=== PATIENT | female | born 1940 | race Caucasian/White ===

== ENCOUNTER 2016-06-22 12:35 | Inpatient (IN) ==
[2016-06-22] MEDS ORDERED: Ipratropium/Albuterol Neb 3 ML IH ONE ×2 (12:58→14:39)
[2016-06-22] MEDS ORDERED: predniSONE 20 MG TABLET PO ONE (12:58)
--- NOTE | 2016-06-22 13:00 | Emergency Department Note ---
Disposition Clinical Impression: Acute exacerbation of chronic obstructive airways disease Disposition: Admitted As Inpatient Condition: Good Referrals: Therese Garcia CNP [Primary Care Provider] - Forms: ED Satisfaction Letter Time of Disposition: 16:29 SOB HPI - General Chief Complaint: ED Shortness of Breath/Dyspnea Stated Complaint: LISHA, wheezing Time Seen by Provider: 06/22/16 12:46 Source: EMS Mode of arrival: ambulatory Limitations: no limitations Nursing Notes Reviewed: Yes Vital Signs Reviewed: Yes - History of Present Illness 75-year-old female with history of COPD on 2 L home oxygen, breast cancer s/p right lumpectomy, CHF, HTN, DM, CKD stage 4 presents ED for several days of shortness of breath and cough. History was obtained from patient and daughter. She reportedly has been feeling under the weather since Monday with increased cough but no fever. Was evaluated by her PCP Angelito Garcia on Monday were chest x-ray was performed and revealed no signs of pneumonia. Patient was placed on doxycycline. She takes Symbicort and Proventil as well as albuterol nebulizers. She has been requiring more recently. She has increased cough and increase shortness of breath with some change in sputum production. Patient has not been on steroids in the past. Denies any recent surgery, injury, recent long travel, or history of blood clots. Pt Subjective Complaint: shortness of breath, cough - Related Data Home Medications Medication Instructions Recorded Confirmed Cetirizine HCl [Zyrtec] 10 mg PO HS 04/17/15 06/22/16 Cholecalciferol (Vitamin D3) 2,000 unit PO DAILY 04/17/15 06/22/16 [Vitamin D3] Glimepiride 4 mg PO QAM 04/17/15 06/22/16 Insulin ASPART [NovoLOG] 2 - 10 unit SQ TIDWM 04/17/15 06/22/16 Insulin Glargine,Hum.rec.anlog 10 unit SQ QAM 04/17/15 06/22/16 [Lantus Solostar] Promethazine [Phenergan] 12.5 - 25 mg PO Q6-8H PRN 04/17/15 06/22/16 Carvedilol [Coreg] 6.25 mg PO BIDWM 06/08/15 06/22/16 Donepezil HCl [Donepezil HCl Odt] 5 mg PO HS 06/08/15 06/22/16 Acetaminophen with Codeine 1 tab PO Q4H PRN 10/12/15 06/22/16 [Acetaminophen-Cod #3 Tablet] Albuterol Sulfate [Albuterol 2 puff IH Q6H PRN 10/12/15 06/22/16 Inhaler] Furosemide [Lasix] 20 mg PO DAILY 10/12/15 06/22/16 Insulin Glargine,Hum.rec.anlog 8 unit SQ QPM 10/12/15 06/22/16 [Lantus Solostar] Omeprazole [PriLOSEC] 20 mg PO DAILY 10/12/15 06/22/16 Oxycodone HCl/Acetaminophen 1 each PO Q4H PRN 12/29/15 06/22/16 [Percocet 5-325 mg Tablet] Amlodipine [Norvasc] 10 mg PO DAILY 01/26/16 06/22/16 Ascorbate Calcium [Vitamin C] 500 mg PO DAILY 06/14/16 06/22/16 Atorvastatin [Lipitor] 10 mg PO HS 06/14/16 06/22/16 Calcitriol [Rocaltrol] 0.25 mcg PO DAILY 06/14/16 06/22/16 CloNIDine HCl [Kapvay] 0.1 mg PO TID 06/14/16 06/22/16 Clopidogrel [Plavix] 75 mg PO DAILY 06/14/16 06/22/16 Docusate [Colace] 100 mg PO DAILY PRN 06/14/16 06/22/16 Guaifenesin [Mucinex] 600 mg PO Q12H PRN 06/14/16 06/22/16 Linagliptin [Tradjenta] 5 mg PO DAILY 06/14/16 06/22/16 Alendronate Sodium [Fosamax] 70 mg PO QWEEK 06/22/16 06/22/16 Budesonide/Formoterol 80/4.5 2 puff IH Q12H 06/22/16 06/22/16 [Symbicort 80/4.5] Calcium Carbonate [Calcium] 600 mg PO BID 06/22/16 06/22/16 Allergies Allergy/AdvReac Type Severity Reaction Status Date / Time aspirin [ASA] Allergy Swelling Verified 05/18/16 13:40 of Lip/Tongue/Throat NSAIDS (Non-Steroidal Allergy Swelling Verified 05/18/16 13:40 Anti-Inflamma of Lip/Tongue/Throat Penicillins Allergy Hives Verified 05/18/16 13:40 iron AdvReac Unknown Verified 05/18/16 13:40 All systems ED: reviewed and negative except as stated. Constitutional: Denies: fever, chills Cardiovascular: Reports: dyspnea on exertion. Denies: chest pain, palpitations Respiratory: Reports: cough, dyspnea, wheezes Gastrointestinal: Denies: abdominal pain, nausea, vomiting Genitourinary: Denies: urgency, dysuria Past Medical History - Past Medical History Attestation: Yes The following information was validated with the patient. Source: patient Medical history: Reports: CHF, COPD, CVA, diabetes, renal disease Surgical history: Reports: cholecystectomy, hysterectomy Psychiatric history: Reports: anxiety, depression SUPERINTENDENT CONSTRUCTION history: Reports: no SUPERINTENDENT CONSTRUCTION history - Social History Smoking Status: Former smoker Smokeless Tobacco Status: No Alcohol use: Reports: none Drug use: Reports: none Physical Exam - General Limitations: no limitations General appearance: alert, anxious, in distress (mild respiratory) - Head Head exam: atraumatic, normocephalic, normal inspection - Eye Eye exam: Present: normal appearance, PERRL, EOMI - ENT ENT exam: normal exam, normal oropharynx, mucous membranes moist - Neck Neck exam: Present: normal inspection - Chest Chest inspection: Present: normal inspection, symmetric chest wall rise. Absent : tenderness - Respiratory Respiratory exam: Present: normal lung sounds bilaterally, respiratory distress , wheezes (bilateral expiratory) - Cardiovascular Cardiovascular exam: Present: regular rate, normal rhythm, normal heart sounds - Abdominal Exam Abdominal exam: Present: soft, Non-Tender. Absent: tenderness, distention, guarding, rebound, rigidity - Extremities Exam Extremities exam: Present: normal inspection, full ROM, normal capillary refill. Absent: tenderness, pedal edema, calf tenderness - Back Exam Back exam: Present: normal inspection, full ROM. Absent: tenderness - Neurological Exam Neurological exam: Present: alert, oriented X3 - Psychiatric Psychiatric exam: Present: normal affect, normal mood - Skin Skin exam: Present: warm, dry, intact, normal color Course Course Narrative: 75-year-old female history of COPD on 2 L at home presents to ED with increased shortness of breath and cough. His ongoing for the past several days, 2 days ago patient was seen evaluated by primary care physician. Place on doxycycline 2 doses. Patient is on 2 L nasal cannula setting at 96%. She has some increased worker breathing. Lungs are wheezing bilaterally. Heart's regular rate and rhythm. Legs are non-edematous. We will work her up for likely COPD exacerbation. Troponin and EKG ordered. Duonebs ordered. - Reevaluation(s) Reevaluation #1: After 3 duoneb treatments and dose of steroids, she continues to have bilateral diffuse wheezing. With ambulation, patient's O2 dropped to <90% before exiting the room. Will admit for admission for COPD exacerbation. Patient and daughter are in agreement with plan. Time: 15:50 - Consultations Consultation #1: Spoke with gerda Krueger to admit for COPD exacerbation. No further orders at this time. Time: 16:30 Vital Signs Temperature 98.2 F 06/22/16 12:43 Pulse Rate 58 06/22/16 12:43 Respiratory Rate 14 06/22/16 12:43 Blood Pressure 150/74 06/22/16 12:43 O2 Sat by Pulse Oximetry 95 06/22/16 12:43 Temperature 98.2 F 06/22/16 12:43 Pulse Rate 55 06/22/16 16:12 Respiratory Rate 12 06/22/16 16:12 Blood Pressure 138/71 06/22/16 16:12 O2 Sat by Pulse Oximetry 93 L 06/22/16 16:12 Oxygen Delivery Oxygen Delivery Nasal Cannula Shortness of Breath/Dyspnea - MDM Narrative Medical decision making narrative: I examined this patient and my medical decision-making was reviewed with the SOCIAL SCIENCES LECTURER/PA/Advanced Practice Nurse/Resident Physician. I agree with the documented findings, disposition and treatment plan as described except to the extent set forth below. Patient was seen by Dr. Randle and myself, I agree with his evaluation and management plan, supervise care the patient that stay patient has a history of COPD. She is on 2 L oxygen at home and some wheezing and coughing she saw urgent care and is on doxycycline. No pneumonia recently. Going to do a workup on her and reassess even get her feeling better. She is in agreement with this plan. Chest X-Ray 06/22/16 12:58 IMPRESSION: No significant findings in the chest. Cardiomegaly is stable. D/ / Martin Mosley MD / Martin Mosley MD Interpreting Provider: Martin Mosley MD - Differential Diagnosis Likely: acute exacerbation of chronic obstructive airways disease - Medical Records Medical records reviewed: Yes I reviewed the patient's medical records. - Lab Data Lab results reviewed: Yes I reviewed the patient's lab results. Result diagrams: 06/22/16 13:20 06/22/16 13:20 Lab Results 06/22/16 06/22/16 06/22/16 Range/Units 13:20 13:20 13:20 WBC 6.6 (4.3-11.1) K/mcL RBC 3.82 (3.82-4.97) M/mcL Hgb 10.2 L (11.5-15.4) g/dL Hct 33.1 L (35.3-44.9) % MCV 86.6 (83.0-100.0) fL MCH 26.7 L (28.0-33.3) pg MCHC 30.8 L (31.6-35.5) g/dL RDW 16.1 H (11.5-14.5) % Plt Count 283 (140-400) K/mcL MPV 10.0 (9.4-12.4) fL Immature Gran % 0.6 (0-4) % Seg Neutrophils % 61.8 % Lymphocytes % 23.4 % Monocytes % 10.5 % Eosinophils % 2.9 % Basophils % 0.8 % Neutrophils # 4.1 (1.6-8.9) K/mcL Lymphocytes # 1.5 (0.6-4.6) K/mcL Monocytes # 0.7 (0.0-1.3) K/mcL Eosinophils # 0.2 (0.0-0.6) K/mcL Basophils # 0.1 (0.0-0.2) K/mcL Sodium 137 (136-145) mEq/L Potassium 5.5 H (3.5-4.5) mEq/L Chloride 104 (98-109) mEq/L Carbon Dioxide 21 (19-29) mEq/L BUN 58 H D (7-20) mg/dL Creatinine 2.37 H (0.57-1.11) mg/dL Est GFR ( Amer) 24 L (> 60) Est GFR (Non-Af Amer) 20 L (> 60) BUN/Creatinine Ratio 24 (6-26) Glucose 182 H (70-99) mg/dL Calculated Osmolality 305 H (280-300) Calcium 8.9 (8.6-10.8) mg/dL Troponin I (0-0.03) ng/mL B-Natriuretic Peptide (0-100) pg/mL 06/22/16 Range/Units 13:20 WBC (4.3-11.1) K/mcL RBC (3.82-4.97) M/mcL Hgb (11.5-15.4) g/dL Hct (35.3-44.9) % MCV (83.0-100.0) fL MCH (28.0-33.3) pg MCHC (31.6-35.5) g/dL RDW (11.5-14.5) % Plt Count (140-400) K/mcL MPV (9.4-12.4) fL Immature Gran % (0-4) % Seg Neutrophils % % Lymphocytes % % Monocytes % % Eosinophils % % Basophils % % Neutrophils # (1.6-8.9) K/mcL Lymphocytes # (0.6-4.6) K/mcL Monocytes # (0.0-1.3) K/mcL Eosinophils # (0.0-0.6) K/mcL Basophils # (0.0-0.2) K/mcL Sodium (136-145) mEq/L Potassium (3.5-4.5) mEq/L Chloride (98-109) mEq/L Carbon Dioxide (19-29) mEq/L BUN (7-20) mg/dL Creatinine (0.57-1.11) mg/dL Est GFR ( Amer) (> 60) Est GFR (Non-Af Amer) (> 60) BUN/Creatinine Ratio (6-26) Glucose (70-99) mg/dL Calculated Osmolality (280-300) Calcium (8.6-10.8) mg/dL Troponin I (0-0.03) ng/mL B-Natriuretic Peptide 94 (0-100) pg/mL - Radiology Data Radiology results reviewed: Yes I reviewed the patient's radiology results. Chest X-Ray 06/22/16 12:58 IMPRESSION: No significant findings in the chest. Cardiomegaly is stable. D/ / Martin Mosley MD / Martin Mosley MD Interpreting Provider: Martin Mosley MD - EKG Data EKG attestation: Yes I reviewed and interpreted this EKG. EKG results narrative: EKG performed 1242 shows rhythm heart rate 57, normal axis, there are no ST elevations or depressions, no T waves inversions. Intervals are within normal limits MO interval 141 QRS 98 QT QTC 420 419. Compared to the old EKG performed 05/26/2016 shows similar findings of sinus bradycardia 53 bpm. No acute ischemic changes.
[2016-06-22 13:31] LABS: Basophils # 0.1 K/mcL (0.0-0.2); Basophils % 0.8 %; Eosinophils # 0.2 K/mcL (0.0-0.6); Eosinophils % 2.9 %; Hematocrit 33.1 % (35.3-44.9); Hemoglobin 10.2 g/dL (11.5-15.4); Immature Granulocytes % 0.6 % (0-4); Lymphocytes # 1.5 K/mcL (0.6-4.6); Lymphocytes % 23.4 %; Mean Corpuscular HGB Conc 30.8 g/dL (31.6-35.5); Mean Corpuscular Hemoglobin 26.7 pg (28.0-33.3); Mean Corpuscular Volume 86.6 fL (83.0-100.0); Monocytes # 0.7 K/mcL (0.0-1.3); Monocytes % 10.5 %; Neutrophils # 4.1 K/mcL (1.6-8.9); Platelet Count 283 K/mcL (140-400); Red Blood Count 3.82 M/mcL (3.82-4.97); Red Cell Distribution Width 16.1 % (11.5-14.5); Segmented Neutrophils % 61.8 %
[2016-06-22 13:44] LABS: Calcium 8.9 mg/dL (8.6-10.8)
[2016-06-22 13:46] LABS: Potassium 5.5 mEq/L (3.5-4.5)
[2016-06-22] MEDS ORDERED: Ipratropium/Albuterol Neb 3 ML ONE (14:40)
[2016-06-22] MEDS ORDERED: Acetaminophen 325 MG TABLET PO ONE (15:11)
[2016-06-22] MEDS ORDERED: Naloxone 0.4 MG/ML INJ IVP PRN (18:12)
[2016-06-22] MEDS ORDERED: Albuterol 2.5 MG/3 ML NEBULIZER IH PRN (18:14)
[2016-06-22] MEDS ORDERED: 0.9 % Sodium Chloride 1,000 ML IVC SCH (18:15)
--- NOTE | 2016-06-22 19:26 | Electrocardiograph Report ---
[facility] Test Date: 2016-06-22 Pat Name: Dorothy Parks Department: [id number] Room: 3B37 Gender: F Digital Operations Analyst: : 1940 Requested By: Addy Randle Order Number: [id number] Reading MD: Tita Rogers DO Measurements Intervals [place] Rate: 57 P: 52 SD: 141 QRS: -6 QRSD: 98 T: 55 QT: 425 QTc: 419 Interpretive Statements SINUS BRADYCARDIA Electronically Signed On 06-22-2016 19:24:32 EST by Tita Rogers DO
[2016-06-22] MEDS: Ipratropium/Albuterol Neb 3 ML IH SCH ×3 (19:57→23:36)
[2016-06-22] MEDS: Budesonide Neb 0.5 MG/2 ML IH SCH (20:39)
--- NOTE | 2016-06-22 22:07 | Internal Med History&Physical ---
<LujanSina - Last Filed: 06/22/16 23:09> Date of Encounter: 06/22/16 Time of Encounter: 22:03 Assessment and Plan (1) Acute exacerbation of chronic obstructive airways disease Current visit: Yes Status: Acute Symptoms of shortness of breath likely caused by her COPD rather than her CHF given her sputum production and wheezing in setting of euvolemia Will start patient on steroids with solumedrol 60 mg q6hr and Levaquin 500 mg q48hr along with scheduled breathing treatments and inhalers Daughter did bring up possibility of BiPAP, but we will hold off on qualifying her for nocturnal BiPAP until she is more stable Obtain VBG to observe severity of hypercarbia and any evidence of acidosis (2) Chronic blood loss anemia Current visit: Yes Status: Chronic Her Hb upon admission was 10.2, which has been stable near her baseline She has known bright red blood per rectum and has been evaluated by surgery recently as outpatient; colonoscopy delayed due to recent tPa administration Her last c-scope 07/2015 demonstrated inflammation of ileocecal valve along with internal hemorrhoids, which could explain her bright red blood per rectum Patient also saw her adolescent specialist last week who has managed her IV iron and also received 2 units pRBC last Monday Will type and screen and this point, but no indication for urgent transfusion (3) Hyperkalemia Current visit: Yes Status: Acute Initial potassium level of 5.5 upon admission, but possibly lab error as her troponin was not resulted due to hemolyzed sample Will repeat CMP now and treat with calcium gluconate and Kayexalate if levels remain high (4) CKD (chronic kidney disease) stage 4, GFR 15-29 ml/min Current visit: Yes Status: Chronic Cr upon admission of 2.37, baseline around 2.1 Will continue supportive measures, avoid nephrotoxic agents Patient is established with Dr. Corona, will need to delay her appointment originally scheduled for tomorrow (5) Hypertension Current visit: Yes Status: Chronic Blood pressures have been stable upon admission, will continue to monitor vitals closely Continue home dose of Norvasc and Clonidine but holding Coreg due to bradycardia Qualifiers: Qualified Code(s): I10 - Essential (primary) hypertension (6) History of CVA (cerebrovascular accident) Current visit: Yes Status: Resolved Patient did have acute stroke last month and received dose of tPA Her left sided weakness has been improving with PT/OT Will consult PT/OT while inpatient and continue her Plavix (7) Insulin dependent type 2 diabetes mellitus Current visit: No Status: Chronic Holding home anti-diabetic medication Starting low dose sliding scale insulin ACHS casandra (8) DVT prophylaxis Current visit: No Status: Acute SCDs in setting of chronic GI bleed Internal Medicine - H&P: HPI Chief complaint: Short of breath, cough Admitted From: Home Plans for Post Hospital Care: Home History of present illness: Ms. Parks is a 75 year old female who presents to the emergency department with progressive shortness of breath associated with productive cough. Daughter is at bedside and is able to assist with history as patient has underlying dementia. She states that the patient has been feeling sick since Monday with a low-grade fever of 99 and went to her primary care physician Therese Garcia on Monday. An x-ray was done that point and did not show any pneumonia, but she was started on doxycycline. Patient continued to have difficulty breathing specially with exertion and had increased sputum production that was green colored. She does have underlying COPD and sees a patient financial advocate in [facility]. Patient normally is on 2 L of oxygen throughout the day and night and has been using her inhalers more often. She also has diastolic heart failure confirmed by echocardiogram in April 2015 and is on Lasix 20 mg daily, but states that her swelling is minimal. Of note, patient has chronic bright red blood per rectum and has been worked up by surgery and hematology. She does get IV iron and was recently transfused 2 units of RBCs last Monday in the cancer center. Patient currently denies any shortness of breath at rest, chest pain, nausea, fever. Past Med Surg Social Fam HX - Past Medical History Medical history: CHF, COPD, CVA, diabetes, renal disease Psychiatric history: anxiety, depression - Past Surgical History Surgical History: cholecystectomy, hysterectomy - Social History Smoking Status: Former smoker Smokeless Tobacco Status: No Alcohol use: none Drug use: none - Family History Father Living Status: Hx Family Cardiac Disorders: No Hx Family Respiratory Disorders: No Hx Family Cancer: Yes Hx Family GI Disorders: Yes Hx Family Endocrine Disorder: Yes Hx Family Neuromuscular Disorders: No Hx Family Neurologic Disorders: No Hx Family HEENT Disorders: No Hx Family Autoimmune Disorders: No Internal Medicine - H&P: Meds Cetirizine HCl [Zyrtec] 10 mg PO HS 04/17/15 [History] Cholecalciferol (Vitamin D3) [Vitamin D3] 2,000 unit PO DAILY 04/17/15 [History] Glimepiride 4 mg PO QAM 04/17/15 [History] Insulin ASPART [NovoLOG] 2 - 10 unit SQ TIDWM 04/17/15 [History] Insulin Glargine,Hum.rec.anlog [Lantus Solostar] 10 unit SQ QAM 04/17/15 [ History] Promethazine [Phenergan] 12.5 - 25 mg PO Q6-8H PRN 04/17/15 [History] Carvedilol [Coreg] 6.25 mg PO BIDWM 06/08/15 [History] Donepezil HCl [Donepezil HCl Odt] 5 mg PO HS 06/08/15 [History] Acetaminophen with Codeine [Acetaminophen-Cod #3 Tablet] 1 tab PO Q4H PRN [History] Albuterol Sulfate [Albuterol Inhaler] 2 puff IH Q6H PRN 10/12/15 [History] Furosemide [Lasix] 20 mg PO DAILY 10/12/15 [History] Insulin Glargine,Hum.rec.anlog [Lantus Solostar] 8 unit SQ QPM 10/12/15 [History ] Omeprazole [PriLOSEC] 20 mg PO DAILY 10/12/15 [History] Oxycodone HCl/Acetaminophen [Percocet 5-325 mg Tablet] 1 each PO Q4H PRN [History] Amlodipine [Norvasc] 10 mg PO DAILY 01/26/16 [History] Ascorbate Calcium [Vitamin C] 500 mg PO DAILY 06/14/16 [History] Atorvastatin [Lipitor] 10 mg PO HS 06/14/16 [History] Calcitriol [Rocaltrol] 0.25 mcg PO DAILY 06/14/16 [History] CloNIDine HCl [Kapvay] 0.1 mg PO TID 06/14/16 [History] Clopidogrel [Plavix] 75 mg PO DAILY 06/14/16 [History] Docusate [Colace] 100 mg PO DAILY PRN 06/14/16 [History] Guaifenesin [Mucinex] 600 mg PO Q12H PRN 06/14/16 [History] Linagliptin [Tradjenta] 5 mg PO DAILY 06/14/16 [History] Alendronate Sodium [Fosamax] 70 mg PO QWEEK 06/22/16 [History] Budesonide/Formoterol 80/4.5 [Symbicort 80/4.5] 2 puff IH Q12H 06/22/16 [ History] Calcium Carbonate [Calcium] 600 mg PO BID 06/22/16 [History] Allergies aspirin [ASA] Allergy (Verified 05/18/16 13:40) Swelling of Lip/Tongue/Throat NSAIDS (Non-Steroidal Anti-Inflamma Allergy (Verified 05/18/16 13:40) Swelling of Lip/Tongue/Throat Penicillins Allergy (Verified 05/18/16 13:40) Hives iron Adverse Reaction (Verified 05/18/16 13:40) Unknown Push only All Systems PM: A 10-system review of systems was performed and is negative for pertinent findings except as documented above in the HPI. - Constitutional Constitutional: fever(s), no chills, no night sweats - EENT Eyes: no change in vision, no discharge, no pain, no photophobia Ears: no ear discharge, no ear pain, no tinnitus Nose, mouth and throat: no dysphagia, no nasal discharge, no neck pain, no sore throat - Cardiovascular Cardiovascular ROS IM: diaphoresis, dyspnea, dyspnea on exertion, no chest pain , no lightheadedness, no palpitations, no syncope - Respiratory Respiratory: cough, dyspnea, dyspnea on exertion, wheezing, chest congestion, excessive phlegm production, change in phlegm color, pain with cough - Gastrointestinal Gastrointestinal: hematochezia (chronic), no abdominal pain, no diarrhea, no hematemesis, no melena, no nausea, no vomiting - Genitourinary Genitourinary: no change in urinary stream, no dysuria, no flank pain, no hematuria - Musculoskeletal Musculoskeletal ROS IM: no numbness, no tingling - Integumentary Integumentary IM: no rash, no unusual bruising - Neurological Neurological ROS: memory loss, no confusion, no convulsions, no focal weakness, no numbness, no tingling, no tremor(s) - Hematologic/Lymphatic Hematologic/Lymphatic: no easy bruising - Constitutional Vitals: Temp Pulse Resp BP Pulse Ox 98.1 F 56 18 138/75 94 L 06/22/16 17:50 06/22/16 17:50 06/22/16 20:40 06/22/16 17:50 06/22/16 20:43 General appearance: Present: cooperative, A&O X 3, pleasant, no acute distress, answers questions appropriately - Head Head exam: Present: atraumatic, normocephalic - Eye Eye exam: Present: PERRL, conjuntiva pink, sclera anicteric - Neck Neck exam general surgery: Present: supple, trachea midline. Absent: lymphadenopathy - Respiratory Respiratory exam: Present: wheezes. Absent: accessory muscle use, rales, rhonchi - Cardiovascular Cardiovascular exam: Present: RRR, +S1, +S2, systolic murmur (2/6). Absent: diastolic murmur, gallop, rubs - GI/Abdominal GI/Abdominal exam: Present: normal bowel sounds, soft, no peritoneal signs. Absent: distended, tenderness - Extremities Exam Extremities exam: Present: pedal edema (trace non-pitting), warm, radial pulses palpable and symetrical. Absent: calf tenderness, cyanotic - Neurological Exam Neurological exam: Present: alert, oriented X3, no focal deficits. Absent: strengths equal and symetr throughout (minimal left sided weakness s/p CVA last month), facial droop, speech deficit - Skin Skin exam: Present: dry, intact Internal Med - H&P Results - Labs CBC & Chem 7: 06/22/16 13:20 06/22/16 13:20 <Ghanshyam Ricci - Last Filed: 06/28/16 23:10> Date of Encounter: 06/22/16 Internal Medicine - H&P: HPI History of present illness: Ms. Parks is a 75 year old female patient is admitted to [facility] via the emergency department with chief complaint of difficulty in breathing. The patient was visited and interviewed and examined. Patient is a nonhistorian of circumstances and events due to underlying dementia. History of present illness is validated by patient's daughter at bedside. For this encounter, I have reviewed the documentation, treatment plan, and medical decision making. I examined this patient and my medical decision-making was reviewed with the Resident Physician. I agree with the documented findings, disposition and treatment plan as described except to the extent set forth below. Cumulative laboratory and radiographic database was reviewed and considered and discussed. Given the patient's presenting concerns, past medical history, clinical findings and symptoms, she is admitted at this time to undergo further evaluation and disposition. Orders were written as per the computerized physician job order clerk system. All Systems PM: A 10-system review of systems was performed and is negative for pertinent findings except as documented above in the HPI. - Constitutional Vitals: Temp Pulse Resp BP Pulse Ox 97.5 F L 64 18 149/84 100 06/28/16 20:08 06/28/16 20:08 06/28/16 20:08 06/28/16 20:08 06/28/16 20:08 Internal Med - H&P Results - Labs CBC & Chem 7: 06/28/16 13:55 06/28/16 03:55 Labs: Short CBC 06/28/16 06/28/16 Range/Units 03:55 13:55 WBC 8.6 (4.3-11.1) K/mcL Hgb 8.1 L D 8.4 L (11.5-15.4) g/dL Hct 24.7 L 26.5 L (35.3-44.9) % Plt Count 272 (140-400) K/mcL BMP 06/28/16 03:55 Sodium 133 L Potassium 4.8 H Chloride 103 Carbon Dioxide 21 BUN 97 H Creatinine 2.44 H Glucose 263 H Calcium 8.2 L - Attending Attestation My signature below is to certify that this patient is under my care and that I, or then Resident Physician working with me, has had a [id number] encounter with this patient. Plan of care has been reviewed and discussed in detail with the patient's daughter at the bedside (caregiver and power of attorney lawyer). Questions addressed. Advance care directive discussion briefly addressed. The patient's family does not report any healthcare restrictions at this time. Outpatient medications schedules will be reviewed, confirmed and facilitated as appropriate. Reconciliation of home treatments including adjustments substitutions and reintroduction to the treatment regimen will address the serum administered with chronic pre-existing medical conditions. Hospital course will be dependent on clinical findings, treatment response and potential consultative interventions. The patient is at risk for further acute clinical decline and morbidity given this presenting chief complaint, frailty, findings and comorbidities. Condition is serious. Prognosis is cautiously optimistic. CODE STATUS is full.
[2016-06-22] MEDS ORDERED: *HR* Dextrose 50 % in Water (Syg) 50 ML SYRINGE IVP PRN (22:43)
[2016-06-22] MEDS ORDERED: D5% in Water 1,000 ML IV PRN (22:43)
[2016-06-22] MEDS ORDERED: Dextrose Gel 15 GM PO PRN ×2 (22:43)
[2016-06-22] MEDS ORDERED: Insulin LISPRO 300 UNITS/3 ML VIAL SQ SCH (22:45)
[2016-06-22] MEDS ORDERED: Levofloxacin 500 MG/100 ML 500 MG/100 ML BAG IVPB SCH (23:00)
[2016-06-22] MEDS: *HR* OxyCODONE/APAP 5/325 TABLET PO PRN (23:12)
[2016-06-22] MEDS: methylPREDNISolone 125 MG/2 ML VIAL IVP SCH (23:13)
[2016-06-22 23:28] LABS: VBG PH 7.34 pH Units (7.32-7.42)
[2016-06-22 23:31] LABS: INR 1.2; Prothrombin Time 12.5 Seconds (9.4-12.1)
[2016-06-23] MEDS ORDERED: *HR* Morphine 2 MG/ML SYRINGE IVP PRN (01:11)
[2016-06-23 02:55] LABS: Albumin 3.2 g/dL (3.5-5.0); Albumin/Globulin Ratio 0.8 (1.1-2.2); Bilirubin,Total 0.7 mg/dL (0.2-1.2); Calcium 8.8 mg/dL (8.6-10.8); Globulin 4.2 g/dL (2.4-3.5); Total Protein 7.4 g/dL (6.0-8.3)
[2016-06-23] MEDS ORDERED: 0.9 % Sodium Chloride 1,000 ML IVC SCH (03:15)
[2016-06-23] MEDS: Ipratropium/Albuterol Neb 3 ML IH SCH ×6 (03:46→23:39)
[2016-06-23 05:36] LABS: Hematocrit 29.4 % (35.3-44.9); Hemoglobin 9.3 g/dL (11.5-15.4); Immature Granulocytes % 0.6 % (0-4); Lymphocytes # 0.6 K/mcL (0.6-4.6); Lymphocytes % 17.7 %; Mean Corpuscular HGB Conc 31.6 g/dL (31.6-35.5); Mean Corpuscular Volume 85.2 fL (83.0-100.0); Monocytes % 0.6 %; Neutrophils # 2.7 K/mcL (1.6-8.9); Platelet Count 247 K/mcL (140-400); Red Blood Count 3.45 M/mcL (3.82-4.97); Red Cell Distribution Width 16.1 % (11.5-14.5); Segmented Neutrophils % 81.1 %
[2016-06-23 05:43] LABS: % Iron Saturation 8 % (15-50); Iron 32 mcg/dL (50-170); Transferrin 280 mg/dL (180-382)
[2016-06-23 05:57] LABS: Platelet Estimate Normal (Normal)
[2016-06-23 05:58] LABS: Anisocytosis 1+ (Not Present); Calcium 8.7 mg/dL (8.6-10.8); Magnesium 1.4 mg/dL (1.6-2.6); Microcytosis Present (Not Present); Phosphorous 4.6 mg/dL (2.3-4.7); Polychromasia 1+ (Not Present); Potassium 4.7 mEq/L (3.5-4.5)
[2016-06-23 05:59] LABS: Chol/HDL Ratio 2.3 (0-4.9)
[2016-06-23 06:03] LABS: Ferritin 23 ng/ml (5-204)
[2016-06-23] MEDS: methylPREDNISolone 125 MG/2 ML VIAL IVP SCH ×3 (06:03→18:17)
[2016-06-23] MEDS ORDERED: Insulin LISPRO 300 UNITS/3 ML VIAL SQ SCH (07:30)
[2016-06-23] MEDS: Budesonide Neb 0.5 MG/2 ML IH SCH ×2 (07:54→20:43)
[2016-06-23] MEDS: Ascorbic Acid 500 MG TABLET PO SCH (08:17)
[2016-06-23] MEDS: cloNIDine HCl 0.1 MG TABLET PO SCH ×3 (08:17→21:16)
[2016-06-23] MEDS: amLODIPine 5 MG TABLET PO SCH (08:17)
[2016-06-23] MEDS: *HR* OxyCODONE/APAP 5/325 TABLET PO PRN (08:46)
[2016-06-23] MEDS ORDERED: Insulin Human Regular 10 UNIT in 0.9 % Sodium Chloride 10 ML IV ONE (10:07)
[2016-06-23] MEDS ORDERED: *HR* Dextrose 50 % in Water (Syg) 50 ML SYRINGE IVP PRN ×2 (10:10→11:47)
[2016-06-23] MEDS ORDERED: Insulin Human Regular 100 UNIT in 0.9 % Sodium Chloride 100 ML IVC SCH (10:15)
--- NOTE | 2016-06-23 10:31 | Internal Med Progress Note ---
Date of Encounter: 06/23/16 Time of Encounter: 10:31 - Constitutional Vitals: Temp Pulse Resp BP Pulse Ox 98.3 F 87 17 178/73 96 06/23/16 08:17 06/23/16 08:17 06/23/16 08:17 06/23/16 08:17 06/23/16 08:17 General appearance: Present: cooperative, A&O X 3, pleasant, no acute distress, answers questions appropriately Internal Medicine: Result - Labs CBC & Chem 7: 06/23/16 04:13 06/23/16 04:13 Labs: Short CBC 06/23/16 Range/Units 04:13 WBC 3.3 L (4.3-11.1) K/mcL Hgb 9.3 L (11.5-15.4) g/dL Hct 29.4 L (35.3-44.9) % Plt Count 247 (140-400) K/mcL Neutrophils # 2.7 (1.6-8.9) K/mcL BMP 06/22/16 06/23/16 23:13 04:13 Sodium 135 L 131 L Potassium 5.0 H 4.7 H Chloride 103 101 Carbon Dioxide 15 L 18 L BUN 67 H 67 H Creatinine 2.45 H 2.33 H Glucose 415 H 460 H Calcium 8.8 8.7 Cardiac Enzymes 06/22/16 Range/Units 23:13 Troponin I 0.01 (0-0.03) ng/mL Liver Function 06/22/16 Range/Units 23:13 Total Bilirubin 0.7 (0.2-1.2) mg/dL AST 18 (5-34) Units/L ALT 19 (0-55) Units/L Alkaline Phosphatase 89 (38-126) Units/L Albumin 3.2 L (3.5-5.0) g/dL - ABG Interpretation ABG results: PT/INR, D-dimer PT 12.5 Seconds (9.4-12.1) H 06/22/16 23:13 Consult Discharge Plan - Plan Referrals: Vamsi Corona DO [Partnered Physician] - 07/06/16 11:00 am Jose,Therese Mccormick CNP [Primary Care Provider] -
--- NOTE | 2016-06-23 10:40 | Internal Med Progress Note ---
<Dorothy Drew Rebeka - Last Filed: 06/23/16 11:47> Date of Encounter: 06/23/16 Time of Encounter: 10:36 - Assessment and plan (1) Acute exacerbation of chronic obstructive airways disease Current Visit: Yes Status: Acute Assessment and plan: Patient with hypoxia secondary to COPD exacerbation. Change in sputum color to yellow-green. CXR with cardiomegaly, stable and normal pulmonary vasculature. Influenza A & B titer, pending Levaquin IV q 48 hours Solumedrol IV Duonebs, albuterol nebs Continue Pulmicort IVF 60ml/h (2) CKD (chronic kidney disease) stage 4, GFR 15-29 ml/min Current Visit: Yes Status: Chronic Assessment and plan: Cr 2.33 increase from 2.10 three days ago Continue gentle fluid resuscitation at 60ml/h (3) Chronic blood loss anemia Current Visit: Yes Status: Chronic Assessment and plan: Patient being followed by oncology for anemia due to rectal bleeding. Patient received 2u RBCs 06/15/16 at [facility]. Hb today 9.3 compared to 7.8 on 06/14/16. Anemia may be contributory to patient's dyspnea (4) History of CVA (cerebrovascular accident) Current Visit: Yes Status: Resolved (5) Insulin dependent type 2 diabetes mellitus Current Visit: No Status: Chronic Assessment and plan: Low dose ISS ACHS (6) Hypertension Current Visit: Yes Status: Chronic (7) Hyperkalemia Current Visit: Yes Status: Acute (8) DVT prophylaxis Current Visit: No Status: Acute - Time Spent With Patient 25 - 35 minutes - Subjective Interval history: Patient is in room, sitting in chair with oxygen via nasal cannula. She is accompanied by her daughter. Breathing is improved from yesterday during admission. - Constitutional Vitals: Temp Pulse Resp BP Pulse Ox 98.3 F 87 17 178/73 96 06/23/16 08:17 06/23/16 08:17 06/23/16 08:17 06/23/16 08:17 06/23/16 08:17 General appearance: Present: cooperative, A&O X 3, pleasant, obese, answers questions appropriately - Head Head exam: Present: atraumatic, normocephalic - Eye Eye exam: Present: PERRL, sclera anicteric Pupils: Present: PERRL - Neck Neck exam general surgery: Present: supple, trachea midline - Respiratory Respiratory exam: Present: prolonged expiratory phase, respiratory distress ( increased work of breathing), wheezes (expiratory wheezing prominent in all lung schwarz). Absent: accessory muscle use, rales, rhonchi, tachypnea - Cardiovascular Cardiovascular exam: Present: RRR, +S1, +S2. Absent: diastolic murmur, gallop, rubs, systolic murmur - GI/Abdominal GI/Abdominal exam: Present: normal bowel sounds, soft, no peritoneal signs. Absent: distended, tenderness - Extremities Exam Extremities exam: Present: warm. Absent: cyanotic, pedal edema - Neurological Exam Neurological exam: Present: CN II-XII intact, oriented X3, no focal deficits. Absent: pronater drift, facial droop, speech deficit - Skin Skin exam: Present: dry, intact Internal Medicine: Result - Labs CBC & Chem 7: 06/23/16 04:13 06/23/16 04:13 Labs: Short CBC 06/23/16 Range/Units 04:13 WBC 3.3 L (4.3-11.1) K/mcL Hgb 9.3 L (11.5-15.4) g/dL Hct 29.4 L (35.3-44.9) % Plt Count 247 (140-400) K/mcL Neutrophils # 2.7 (1.6-8.9) K/mcL BMP 06/22/16 06/23/16 23:13 04:13 Sodium 135 L 131 L Potassium 5.0 H 4.7 H Chloride 103 101 Carbon Dioxide 15 L 18 L BUN 67 H 67 H Creatinine 2.45 H 2.33 H Glucose 415 H 460 H Calcium 8.8 8.7 Cardiac Enzymes 06/22/16 Range/Units 23:13 Troponin I 0.01 (0-0.03) ng/mL Liver Function 06/22/16 Range/Units 23:13 Total Bilirubin 0.7 (0.2-1.2) mg/dL AST 18 (5-34) Units/L ALT 19 (0-55) Units/L Alkaline Phosphatase 89 (38-126) Units/L Albumin 3.2 L (3.5-5.0) g/dL - ABG Interpretation ABG results: PT/INR, D-dimer PT 12.5 Seconds (9.4-12.1) H 06/22/16 23:13 Consult Discharge Plan - Plan Referrals: Vamsi Corona DO [Partnered Physician] - 07/06/16 11:00 am Jose,Therese Mccormick CNP [Primary Care Provider] - - Attending Attestation I examined this patient and my medical decision-making was reviewed with the CASING MACHINE OPERATOR/PA/Advanced Practice Nurse/Resident Physician. I agree with the documented findings, disposition and treatment plan as described except to the extent set forth below. <Berny Villegas H - Last Filed: 06/23/16 15:09> Date of Encounter: 06/23/16 - Constitutional Vitals: Temp Pulse Resp BP Pulse Ox 97.9 F 66 14 123/78 97 06/23/16 12:02 06/23/16 12:02 06/23/16 12:02 06/23/16 12:02 06/23/16 12:02 Internal Medicine: Result - Labs CBC & Chem 7: 06/23/16 04:13 06/23/16 11:38 Labs: Short CBC 06/23/16 Range/Units 04:13 WBC 3.3 L (4.3-11.1) K/mcL Hgb 9.3 L (11.5-15.4) g/dL Hct 29.4 L (35.3-44.9) % Plt Count 247 (140-400) K/mcL Neutrophils # 2.7 (1.6-8.9) K/mcL BMP 06/22/16 06/23/16 06/23/16 23:13 04:13 11:38 Sodium 135 L 131 L 133 L Potassium 5.0 H 4.7 H 4.3 Chloride 103 101 103 Carbon Dioxide 15 L 18 L 18 L BUN 67 H 67 H 67 H Creatinine 2.45 H 2.33 H 2.48 H Glucose 415 H 460 H 456 H Calcium 8.8 8.7 9.1 Cardiac Enzymes 06/22/16 Range/Units 23:13 Troponin I 0.01 (0-0.03) ng/mL Liver Function 06/22/16 Range/Units 23:13 Total Bilirubin 0.7 (0.2-1.2) mg/dL AST 18 (5-34) Units/L ALT 19 (0-55) Units/L Alkaline Phosphatase 89 (38-126) Units/L Albumin 3.2 L (3.5-5.0) g/dL - ABG Interpretation ABG results: PT/INR, D-dimer PT 12.5 Seconds (9.4-12.1) H 06/22/16 23:13 - Attending Attestation Acute on chronic hypoxic respiratory failure secondary to acute COPD exacerbation from possible acute bronchitis viral versus bacterial Continue Solu-Medrol IV, Levaquin, DuoNeb's. The patient has history of diastolic CHF, discontinue IV fluids and start IV Lasix 20 mg daily. Check an echocardiogram last echocardiogram was performed in 2014. Check respiratory viral panel Steroid-induced hyperglycemia in the setting of diabetes2 insulin-dependent Increased dose of Levemir from 10 units daily up to 14 units daily and from 8 units at night up to 12 units at night with a high dose insulin sliding scale during the daytime. Consider nephrology consult with Dr. Corona if kidney function worsens
[2016-06-23] MEDS: Magnesium Oxide 400 MG TABLET PO SCH ×2 (11:12→21:16)
[2016-06-23] MEDS ORDERED: Albuterol 2.5 MG/3 ML NEBULIZER IH PRN (11:22)
[2016-06-23] MEDS ORDERED: Dextrose Gel 15 GM PO PRN ×2 (11:47)
[2016-06-23] MEDS ORDERED: D5% in Water 1,000 ML IV PRN (11:47)
[2016-06-23] MEDS ORDERED: Insulin DETEMIR 100 UNIT/ML X5UNITS SQ SCH ×2 (12:00→21:00)
[2016-06-23 12:11] LABS: Calcium 9.1 mg/dL (8.6-10.8); Magnesium 1.4 mg/dL (1.6-2.6); Potassium 4.3 mEq/L (3.5-4.5)
[2016-06-23] MEDS: Insulin LISPRO 300 UNITS/3 ML VIAL SQ SCH ×3 (12:38→22:23)
[2016-06-23] MEDS: Furosemide 20 MG/2 ML VIAL IVP SCH (16:11)
[2016-06-23] MEDS ORDERED: SODIUM CHLORIDE/NAHCO3/KCL/PEG 4,000 ML SOLN.RECON PO ONE (17:35)
[2016-06-23 18:48] LABS: Adenovirus Not Detected (Not Detect); Bordetella Pertussis Not Detected (Not Detect); Chlamydophila pneumoniae Not Detected (Not Detect); Coronavirus 229E Not Detected (Not Detect); Coronavirus HKU1 Not Detected (Not Detect); Coronavirus NL63 Not Detected (Not Detect); Coronavirus OC43 Not Detected (Not Detect); Human Metapneumovirus ***DETECTED*** (Not Detect); Human Rhinovirus/Enterovirus Not Detected (Not Detect); Influenza A Subtype 2009 H1 Not Detected (Not Detect); Influenza A Untypeable Not Detected (Not Detect); Influenza B Not Detected (Not Detect); Mycoplasma pneumoniae Not Detected (Not Detect); Parainfluenza Virus 1 Not Detected (Not Detect); Parainfluenza Virus 2 Not Detected (Not Detect); Parainfluenza Virus 3 Not Detected (Not Detect); Parainfluenza Virus 4 Not Detected (Not Detect); Respiratory Syncytial Virus Not Detected (Not Detect)
[2016-06-23] MEDS: Loratadine 10 MG TABLET PO SCH (21:16)
[2016-06-23] MEDS: Insulin DETEMIR 100 UNIT/ML X5UNITS SQ SCH (22:23)
[2016-06-24] MEDS: methylPREDNISolone 125 MG/2 ML VIAL IVP SCH ×4 (00:14→21:32)
[2016-06-24] MEDS: *HR* OxyCODONE/APAP 5/325 TABLET PO PRN ×2 (00:29→16:18)
[2016-06-24] MEDS: Ipratropium/Albuterol Neb 3 ML IH SCH ×5 (04:19→20:17)
[2016-06-24 05:41] LABS: Hematocrit 28.2 % (35.3-44.9); Hemoglobin 8.6 g/dL (11.5-15.4); Mean Corpuscular HGB Conc 30.5 g/dL (31.6-35.5); Mean Corpuscular Hemoglobin 25.4 pg (28.0-33.3); Mean Corpuscular Volume 83.4 fL (83.0-100.0); Mean Platelet Volume 10.3 fL (9.4-12.4); Platelet Count 272 K/mcL (140-400); Red Blood Count 3.38 M/mcL (3.82-4.97)
[2016-06-24 05:45] LABS: Calcium 8.4 mg/dL (8.6-10.8); Potassium 4.2 mEq/L (3.5-4.5)
[2016-06-24] MEDS: Budesonide Neb 0.5 MG/2 ML IH SCH ×2 (07:40→20:19)
[2016-06-24] MEDS: cloNIDine HCl 0.1 MG TABLET PO SCH ×3 (08:13→21:32)
[2016-06-24] MEDS: amLODIPine 5 MG TABLET PO SCH (08:13)
[2016-06-24] MEDS: Magnesium Oxide 400 MG TABLET PO SCH ×2 (08:13→21:31)
[2016-06-24] MEDS: Ascorbic Acid 500 MG TABLET PO SCH (08:13)
[2016-06-24] MEDS: Insulin DETEMIR 100 UNIT/ML X5UNITS SQ SCH ×2 (08:14→21:32)
[2016-06-24] MEDS: Insulin LISPRO 300 UNITS/3 ML VIAL SQ SCH ×4 (08:14→21:33)
[2016-06-24] MEDS: Furosemide 20 MG/2 ML VIAL IVP SCH (08:14)
--- NOTE | 2016-06-24 08:29 | Gastroenterology Consult Note ---
<Nery Garnica - Last Filed: 06/24/16 11:29> Date of Encounter: 06/24/16 Time of Encounter: 10:50 - Assessment and plan (1) Anemia Current Visit: No Status: Acute Assessment and plan: Acute on chronic; baseline 9-10, currently 8.6. CKDIII. She follows hematology and received 2 units PRBC 06/15/16 plus IV iron. 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 Repeat Cscope today. Qualifiers: Anemia type: iron deficiency Iron deficiency anemia type: unspecified iron deficiency Qualified Code(s): D50.9 - Iron deficiency anemia, unspecified (2) CKD (chronic kidney disease) stage 3, GFR 30-59 ml/min Current Visit: No Status: Chronic (3) Gastrointestinal stromal tumor (GIST) Current Visit: No Status: Resolved (4) Rectal bleed Current Visit: No Status: Acute Assessment and plan: unclear etiology, likely hemorrhoidal. EGD/Cscope today to r/o esophagitis, gastritis, duodenitis, tumor, polyp, MW tear, AVMs, colitis, anorectal pathology. (5) COPD (chronic obstructive pulmonary disease) Current Visit: No Status: Chronic Qualifiers: COPD type: unspecified COPD Qualified Code(s): J44.9 - Chronic obstructive pulmonary disease, unspecified - Time Spent With Patient Total time spent is greater than 50% in coordination of care (as documented) at patient's floor/unit and/or counseling patient: less than 15 minutes GI History of Present Illness - Data of Consult Patient: new to practice Consult date: 06/24/16 Requesting Physician: Berny Villegas - Consult Narrative Reason for consult: anemia, BRBPR History of present illness: Ms. Parks is a 75 year old female with a PMH significant for HF, COPD, CVA, diabetes, renal disease, R breast cancer s/p mastectomy, GIST, colon polyps who presents to the emergency department with progressive shortness of breath associated with productive cough. Daughter is at bedside and is able to assist with history as patient has underlying dementia. She states that the patient has been feeling sick since Monday with a low-grade fever of 99 and went to her primary care physician Therese Garcia on Monday. An x-ray was done that point and did not show any pneumonia, but she was started on doxycycline. Patient continued to have difficulty breathing specially with exertion and had increased sputum production that was green colored. She does have underlying COPD and sees a color separation photographer in [facility]. Patient normally is on 2 L of oxygen throughout the day and night and has been using her inhalers more often. She also has diastolic heart failure confirmed by echocardiogram in April 2015 and is on Lasix 20 mg daily, but states that her swelling is minimal. Of note, patient has chronic bright red blood per rectum and has been worked up by surgery and hematology. She does get IV iron and was recently transfused 2 units of RBCs last Monday in the cancer center. Patient currently denies any shortness of breath at rest, chest pain, nausea, fever. Last endoscopy 07/[address] Chaney significant for GIST s/p resection, gastritis, reflux esophagitis. Colon showed internal hemorrhoids, tubular adenomas and friability at ileocecal valve. Per patient daughter, since starting the anti-coagulation this problem has manifested so that the patient can have very large, explosive bloody bowel movements. Colonoscopy: 07/2015 - [facility] - tubular adenoma, ileocecal chr infl, int hem EGD: 07/2015 - [facility] - GIST, reflux esophagitis, gastritis Past Med Surg Social Fam HX - Past Medical History Medical history: CHF, COPD, CVA, diabetes, renal disease Psychiatric history: anxiety, depression - Past Surgical History Surgical History: cholecystectomy, hysterectomy - Social History Smoking Status: Former smoker Smokeless Tobacco Status: No Alcohol use: none Drug use: none - Family History Father Living Status: Hx Family Cardiac Disorders: No Hx Family Respiratory Disorders: No Hx Family Cancer: Yes Hx Family GI Disorders: Yes Hx Family Endocrine Disorder: Yes Hx Family Neuromuscular Disorders: No Hx Family Neurologic Disorders: No Hx Family HEENT Disorders: No Hx Family Autoimmune Disorders: No - Gastrointestinal NSAID use: None noted Anticoagulation Use: Plavix Number of BM Per Day: 1-2 Gastrointestinal: Present: hematochezia - Constitutional Constitutional: fatigue - EENT Eyes: as per HPI Ears: Present: as per HPI Nose, mouth and throat: Present: as per HPI - Cardiovascular Cardiovascular ROS: Present: as per HPI - Respiratory Respiratory IM: Present: dyspnea - Neurological ROS Neurological GI: Present: weakness - Hematologic/Lymphatic Hematologic/Lymphatic pediatric: Present: as per HPI - Musculoskeletal Musculoskeletal ROS GI: Present: as per HPI - Integumentary Integumentary GI: Present: as per HPI - Psychiatric ROS Psychiatric GI: Present: as per HPI - Endocrine Endocrine IM: Present: fatigue - Constitutional Vitals: Temp Pulse Resp BP Pulse Ox 97.9 F 117 15 166/84 92 L 06/24/16 07:39 06/24/16 07:39 06/24/16 07:39 06/24/16 07:39 06/24/16 07:39 General appearance: Present: cooperative, A&O X 3, no acute distress, answers questions appropriately - Head Head exam: Present: atraumatic, normocephalic - Eye Eye exam: Present: normal appearance, sclera anicteric - ENT ENT exam: Present: mucous membranes moist - Neck Neck exam general surgery: Present: normal inspection, trachea midline - Respiratory Respiratory exam: Present: decreased breath sounds - Cardiovascular Cardiovascular exam: Present: RRR, +S1, +S2 - GI/Abdominal GI/Abdominal exam: Present: normal bowel sounds, soft, no peritoneal signs - Rectal Rectal exam: Present: deferred - Extremities Exam Extremities exam: Present: warm - Neurological Exam Neurological exam: Present: no focal deficits - Psychiatric Psychiatric exam: Present: normal affect, normal mood - Skin Skin exam: Present: dry, intact, normal color, warm Results - Labs CBC & Chem 7: 06/24/16 04:36 06/24/16 04:36 Labs: Last Result Calcium 8.4 mg/dL (8.6-10.8) L 06/24/16 04:36 Iron 32 mcg/dL (50-170) L 06/23/16 04:13 % Saturation 8 % (15-50) L 06/23/16 04:13 Transferrin 280 mg/dL (180-382) 06/23/16 04:13 Ferritin 23 ng/ml (5-204) 06/23/16 04:13 Troponin I 0.01 ng/mL (0-0.03) 06/22/16 23:13 Triglycerides 43 mg/dL (< 150) 06/23/16 04:13 Entire Visit Hgb 8.6 g/dL (11.5-15.4) L 06/24/16 04:36 Hct 28.2 % (35.3-44.9) L 06/24/16 04:36 PT 12.5 Seconds (9.4-12.1) H 06/22/16 23:13 Ferritin 23 ng/ml (5-204) 06/23/16 04:13 Total Bilirubin 0.7 mg/dL (0.2-1.2) 06/22/16 23:13 AST 18 Units/L (5-34) 06/22/16 23:13 ALT 19 Units/L (0-55) 06/22/16 23:13 - ABG ABG results: PT/INR, D-dimer PT 12.5 Seconds (9.4-12.1) H 06/22/16 23:13 Consult Discharge Plan - Plan Referrals: Vamsi Corona DO [Partnered Physician] - 07/06/16 11:00 am Jose,Therese Mccormick CNP [Primary Care Provider] - 06/27/16 11:00 am <Prudence Escobedo - Last Filed: 06/24/16 21:52> Date of Encounter: 06/24/16 - Time Spent With Patient Total time spent is greater than 50% in coordination of care (as documented) at patient's floor/unit and/or counseling patient: GI History of Present Illness - Data of Consult Requesting Physician: Berny Villegas - Consult Narrative History of present illness: Ms. Parks is a 75 year old female - Constitutional Vitals: Temp Pulse Resp BP Pulse Ox 97.7 F 67 14 147/78 95 06/24/16 18:43 06/24/16 18:43 06/24/16 18:43 06/24/16 18:43 06/24/16 18:43 Results - Labs CBC & Chem 7: 06/24/16 04:36 06/24/16 04:36 Labs: Last Result Calcium 8.4 mg/dL (8.6-10.8) L 06/24/16 04:36 Iron 32 mcg/dL (50-170) L 06/23/16 04:13 % Saturation 8 % (15-50) L 06/23/16 04:13 Transferrin 280 mg/dL (180-382) 06/23/16 04:13 Ferritin 23 ng/ml (5-204) 06/23/16 04:13 Troponin I 0.01 ng/mL (0-0.03) 06/22/16 23:13 Triglycerides 43 mg/dL (< 150) 06/23/16 04:13 Entire Visit Hgb 8.6 g/dL (11.5-15.4) L 06/24/16 04:36 Hct 28.2 % (35.3-44.9) L 06/24/16 04:36 PT 12.5 Seconds (9.4-12.1) H 06/22/16 23:13 Ferritin 23 ng/ml (5-204) 06/23/16 04:13 Total Bilirubin 0.7 mg/dL (0.2-1.2) 06/22/16 23:13 AST 18 Units/L (5-34) 06/22/16 23:13 ALT 19 Units/L (0-55) 06/22/16 23:13 - ABG ABG results: PT/INR, D-dimer PT 12.5 Seconds (9.4-12.1) H 06/22/16 23:13 - Attending Attestation I examined this patient and my medical decision-making was reviewed with the GLASS CARRIER/PA/Advanced Practice Nurse/Resident Physician. I agree with the documented findings, disposition and treatment plan as described except to the extent set forth below.
--- NOTE | 2016-06-24 09:03 | Anesthesia Evaluation PreOp ---
Date of Encounter: 06/24/16 Time of Encounter: 09:01 - Past History Planned Operation: Colonoscopy Cardiac History: NE, CHF, HTN, Hyperlipidemia, Arrhythmia (paroxysmal A-Fib) Pulmonary History: Former smoker (quit 1 year ago, smoked for 40 years), COPD ( 2 L), MELANIA Dx ASSOCIATE SPA DIRECTOR History: CVA (no residual) Other Medical History: Renal (CKD stage 4), Diabetes Type II, GERD Anesthesia History: No Prior Anesthetic Complications, Past Anesthesia Alcohol Use: none Drug use: none Medications and Allergies Cetirizine HCl [Zyrtec] 10 mg PO HS 04/17/15 [History] Cholecalciferol (Vitamin D3) [Vitamin D3] 2,000 unit PO DAILY 04/17/15 [History] Glimepiride 4 mg PO QAM 04/17/15 [History] Insulin ASPART [NovoLOG] 2 - 10 unit SQ TIDWM 04/17/15 [History] Insulin Glargine,Hum.rec.anlog [Lantus Solostar] 10 unit SQ QAM 04/17/15 [ History] Promethazine [Phenergan] 12.5 - 25 mg PO Q6-8H PRN 04/17/15 [History] Carvedilol [Coreg] 6.25 mg PO BIDWM 06/08/15 [History] Donepezil HCl [Donepezil HCl Odt] 5 mg PO HS 06/08/15 [History] Acetaminophen with Codeine [Acetaminophen-Cod #3 Tablet] 1 tab PO Q4H PRN [History] Albuterol Sulfate [Albuterol Inhaler] 2 puff IH Q6H PRN 10/12/15 [History] Furosemide [Lasix] 20 mg PO DAILY 10/12/15 [History] Insulin Glargine,Hum.rec.anlog [Lantus Solostar] 8 unit SQ QPM 10/12/15 [History ] Omeprazole [PriLOSEC] 20 mg PO DAILY 10/12/15 [History] Oxycodone HCl/Acetaminophen [Percocet 5-325 mg Tablet] 1 each PO Q4H PRN [History] Amlodipine [Norvasc] 10 mg PO DAILY 01/26/16 [History] Ascorbate Calcium [Vitamin C] 500 mg PO DAILY 06/14/16 [History] Atorvastatin [Lipitor] 10 mg PO HS 06/14/16 [History] Calcitriol [Rocaltrol] 0.25 mcg PO DAILY 06/14/16 [History] CloNIDine HCl [Kapvay] 0.1 mg PO TID 06/14/16 [History] Clopidogrel [Plavix] 75 mg PO DAILY 06/14/16 [History] Docusate [Colace] 100 mg PO DAILY PRN 06/14/16 [History] Guaifenesin [Mucinex] 600 mg PO Q12H PRN 06/14/16 [History] Linagliptin [Tradjenta] 5 mg PO DAILY 06/14/16 [History] Alendronate Sodium [Fosamax] 70 mg PO QWEEK 06/22/16 [History] Budesonide/Formoterol 80/4.5 [Symbicort 80/4.5] 2 puff IH Q12H 06/22/16 [ History] Calcium Carbonate [Calcium] 600 mg PO BID 06/22/16 [History] Allergies aspirin [ASA] Allergy (Verified 05/18/16 13:40) Swelling of Lip/Tongue/Throat NSAIDS (Non-Steroidal Anti-Inflamma Allergy (Verified 05/18/16 13:40) Swelling of Lip/Tongue/Throat Penicillins Allergy (Verified 05/18/16 13:40) Hives iron Adverse Reaction (Verified 05/18/16 13:40) Unknown Push only - Meds/Allergy Pre-op Review Medications Reviewed: Yes Allergies Reviewed: Yes Beta Blockers on Current Med List: Yes If Beta Blockers taken, Date/Time (Last Dose taken): 06/24/2016 at 0813 Anesthesia Results - Labs 06/24/16 04:36 06/24/16 04:36 - Imaging EKG: report reviewed (06/22/2016 SB) Additional studies: 04/18/2015 Echo LVEF 55% mild concentric LVH moderate LV diastolic dysfunction moderate biatrial enlargement mild MR moderate pulmonary HTN Anesthesia Exam Vital Signs/O2 Sat/Glucose, Most Recent Temp Pulse Resp BP Pulse Ox 97.9 F 117 15 166/84 92 L 06/24/16 07:39 06/24/16 07:39 06/24/16 07:39 06/24/16 07:39 06/24/16 07:39 Blood Glucose* 271 Height: 5'5''/1.65 m Weight: 183 lbs/83.1 kg NPO (# of Hours): 8 Pain Scale: 0 Pain Scale Used: Numeric (1 - 10) - HEENT Pupil (Motor): EOMI Mallampati: II Teeth: Normal, Prosthesis Denture Type: Upper: Complete Oral Opening: Greater than 3 - ASSOCIATE SPA DIRECTOR LOC: Oriented ASSOCIATE SPA DIRECTOR Motor: Normal RUE, Normal RLE, Normal Face, Deficit LUE, Deficit LLE ASSOCIATE SPA DIRECTOR Sensory: Normal: RUE, LUE, RLE, LLE, Face - Cardiac Rhythm: Regular Murmur: Systolic - Pulmonary Breath Sounds: bilateral Clear (mild end-expiratory wheezes) Respiratory Effort: Symmetrical Anesthesia Assess/Plan ASA Score: 4 Modified Josue Scale for Level of Consciousness: Cooperative, oriented, and tranquil Anesthetic Plan: MAC Monitoring Plan: Standard Monitors
--- NOTE | 2016-06-24 09:05 | ECHO - Doppler Report ---
Echocardiogram Name: Dorothy Parks Date of Study: 06/23/2016 Date: 1940 Ht: 65.0 in Medical Record#: [id number] Age: 75 Wt: 181.0 lb Gender: Female BSA: 1.9 Order #: [id number] Location: [facility] Room #: [id number] Reading Physician: Toby Mcclure DO, FACSharon, NEERU KUMAR Practice Office Associate: Miguelina Pagan Ordering Physician: Berny Villegas MD Primary Physician: Therese Garcia CNP Indications: Congestive heart failure Impressions: LVEF 60-65%. Normal LV chamber size, wall thickness and function. Mild left ventricular diastolic dysfunction. Normal right ventricular structure and function. Moderately dilated left atrium. No evidence of pulmonary hypertension identified. RVSP was not well obtained due to poor TR jet. No significant valvular dysfunction. Left Ventricular Wall Motion: Rest Echo Findings All wall segments showed normal motion. Findings: Study Quality * Technically sub-optimal due to poor echocardiographic windows. Left Ventricle * LVEF 60-65%. * Normal LV chamber size, wall thickness and function. * Mild left ventricular diastolic dysfunction. Right Ventricle * Normal right ventricular structure and function. Left Atrium * Moderately dilated left atrium. Right Atrium * Mildly dilated right atrium. Interatrial Septum * Interatrial septum not well evaluated. Aortic Valve * Aortic valve not well visualized. * No aortic stenosis. * No aortic regurgitation. Mitral Valve * Mild mitral annular calcification * Mildly thickened mitral valve leaflets. * No mitral regurgitation. * No mitral stenosis. Tricuspid Valve * Normal tricuspid valve structure and function. * Trace tricuspid regurgitation. * No evidence of pulmonary hypertension. Pulmonic Valve * Pulmonic valve not well visualized. Aorta * Normally sized aortic root. Pericardium * The pericardium appears normal. IVC * Normal IVC dimensions and inspiratory collapse. Pulmonary Artery * Normal visualized portions of the main pulmonary artery. History Hypertension Diabetes Hypercholesteremia Rheumatic Fever Family History of CAD Congestive Heart Failure 04/18/2015 a Previous Echo was performed. Measurements: BP: 136/ 79 2D Normal Values RVIDd: 3.10 cm <2.7 cm IVSd: 1.10 cm 0.6 - 1.0 cm LVIDd: 5.10 cm 3.7 - 5.6 cm LVPWd: 1.00 cm 0.6 - 1.1 cm LVIDs: 3.80 cm 1.5 - 3.6 cm AO: 2.70 cm < 4.0 cm LA: 4.10 cm 2.0 - 4.0cm %FS: 25.50 cm >25 % LA volume: 77 Mitral Valve Peak E:.92 m/sec Peak A:.91 m/sec E/A Ratio:1 Peak E' Lat Aurelio:7.12 cm/s Peak E' Med Aurelio:6.14 cm/s E/E' Lat Ratio:13 E/E' Med Ratio:15 Tricuspid Valve TV Regurg Peak Grad: 11.00mmHg TV Regurg Peak Aurelio: 1.67m/sec Updated by Toby Mcclure DO, CHERELLE, NEERU KUMAR on 06/24/2016 8:58:50 AM electronically signed on 06/24/2016 9:00:03 AM with status of Final Wall Motion Sauceda: 1=Normal, 2=Hypokinesis, 3=Akinesis, 4=Dyskinesis, 5=Aneurysmal, 6=Hyperkinetic, X=Not Visualized (Blank)=Missing
--- NOTE | 2016-06-24 09:53 | Anesthesia Evaluation Post Op ---
Date of Encounter: 06/24/16 Time of Encounter: 09:52 - Vital Signs Vital Signs: Vital Signs/O2 Sat/Glucose, Most Current Temp Pulse Resp BP Pulse Ox 06/24/16 09:20 97.9 F 85 15 166/84 92 L 06/24/16 07:39 97.9 F 117 15 166/84 92 L bp 148/57 hr 80 sp02 92% rr 16 at discharge - Lungs Lungs: Clear Ascult./Percussion - Airway Airway: Non-obstructed - Cardiovascular Regular Rate, Baseline Rhythm - Mental Status Mental Status: Alert & Oriented, Answers Appropriately - Pain Pain Scale: 0 Pain Scale used: Numeric (1 - 10) - Nausea Vomiting Nausea Vomiting: Not Present - Hydration Hydration: NPO, Has not voided - Discharge PostOp Status: Transfer Patient to floor
--- NOTE | 2016-06-24 11:02 | Internal Med Progress Note ---
Date of Encounter: 06/24/16 Time of Encounter: 10:59 - Assessment and plan (1) Acute exacerbation of chronic obstructive airways disease Current Visit: Yes Status: Acute Assessment and plan: Acute on chronic hypoxic respiratory failure secondary to acute COPD exacerbation from acute viral bronchitis (human metapneumovirus) Change in sputum color to yellow-green. CXR with cardiomegaly, stable and normal pulmonary vasculature. Discontinue Levaquin IV q 48 hours continue Solumedrol IV Duonebs, albuterol nebs High risk due to the respiratory failure and rectal bleed (2) Colonic ulcer Current Visit: Yes Status: Acute Assessment and plan: Acute blood loss anemia secondary to colonic ulcers/MVAs status post clipping and catheterization by colonoscopy Monitor CBC and transfuse blood as needed Consider holding Plavix if rectal bleed worsens (3) Hyperkalemia Current Visit: Yes Status: Acute Assessment and plan: Replete as needed (4) CKD (chronic kidney disease) stage 4, GFR 15-29 ml/min Current Visit: Yes Status: Chronic Assessment and plan: Improving Follow as outpatient with Dr. Corona (5) Chronic blood loss anemia Current Visit: Yes Status: Chronic Assessment and plan: Patient being followed by oncology for anemia due to rectal bleeding. Patient received 2u RBCs 06/15/16 at cancer center. Anemia may be contributory to patient's dyspnea (6) History of CVA (cerebrovascular accident) Current Visit: Yes Status: Resolved (7) CHF (congestive heart failure) Current Visit: No Status: Acute Assessment and plan: Mild acute diastolic CHF exacerbation Echocardiogram shows an ejection fraction of 55-60% with mild diastolic dysfunction Continue Lasix 40 mg IV daily Qualifiers: Congestive heart failure type: diastolic Congestive heart failure chronicity: chronic Qualified Code(s): I50.32 - Chronic diastolic (congestive ) heart failure (8) Hyponatremia Current Visit: No Status: Acute (9) Insulin dependent type 2 diabetes mellitus Current Visit: No Status: Chronic Assessment and plan: Steroid-induced hyperglycemia in the setting of diabetes2 insulin-dependent Increased dose of Levemir from 10 units daily up to 14 units daily and from 8 units at night up to 12 units at night with a high dose insulin sliding scale during the daytime. 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 No chest pain, no fevers overnight. No dysuria. No further bleeding per rectum after her colonoscopy - Constitutional Vitals: Temp Pulse Resp BP Pulse Ox 97.9 F 85 15 166/84 92 L 06/24/16 09:20 06/24/16 09:20 06/24/16 09:20 06/24/16 09:20 06/24/16 09:20 General appearance: Present: cooperative, A&O X 3, pleasant, obese, answers questions appropriately - Head Head exam: Present: atraumatic, normocephalic - Eye Eye exam: Present: PERRL, conjuntiva pink, sclera anicteric Pupils: Present: PERRL - Neck Neck exam general surgery: Present: supple, trachea midline. Absent: lymphadenopathy - Respiratory Respiratory exam: Present: CTAB, rales, wheezes (Bilateral diffuse crackles and wheezing mainly in the left lung field). Absent: accessory muscle use, rhonchi - Cardiovascular Cardiovascular exam: Present: RRR, +S1, +S2. Absent: diastolic murmur, gallop, rubs, systolic murmur - GI/Abdominal GI/Abdominal exam: Present: normal bowel sounds, soft, no peritoneal signs. Absent: distended, tenderness - Extremities Exam Extremities exam: Present: warm, radial pulses palpable and symetrical. Absent : calf tenderness, cyanotic, pedal edema - Neurological Exam Neurological exam: Present: CN II-XII intact, oriented X3, no focal deficits. Absent: pronater drift, facial droop, speech deficit - Skin Skin exam: Present: dry, intact Internal Medicine: Result - Labs CBC & Chem 7: 06/24/16 04:36 06/24/16 04:36 Labs: Short CBC 06/24/16 Range/Units 04:36 WBC 6.2 D (4.3-11.1) K/mcL Hgb 8.6 L (11.5-15.4) g/dL Hct 28.2 L (35.3-44.9) % Plt Count 272 (140-400) K/mcL BMP 06/23/16 06/24/16 11:38 04:36 Sodium 133 L 134 L Potassium 4.3 4.2 Chloride 103 105 Carbon Dioxide 18 L 19 BUN 67 H 66 H Creatinine 2.48 H 2.29 H Glucose 456 H 258 H Calcium 9.1 8.4 L - ABG Interpretation ABG results: PT/INR, D-dimer PT 12.5 Seconds (9.4-12.1) H 06/22/16 23:13 Consult Discharge Plan - Plan Referrals: Vamsi Corona DO [Partnered Physician] - 07/06/16 11:00 am Garcia,Therese Mccormick CNP [Primary Care Provider] - 06/27/16 11:00 am
--- NOTE | 2016-06-24 15:10 | Physician Discharge Referral ---
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) Status: Resolved - Transfer Medications Home Medications: Cetirizine HCl [Zyrtec] 10 mg PO HS 04/17/15 [History] Cholecalciferol (Vitamin D3) [Vitamin D3] 2,000 unit PO DAILY 04/17/15 [History] Glimepiride 4 mg PO QAM 04/17/15 [History] Insulin ASPART [NovoLOG] 2 - 10 unit SQ TIDWM 04/17/15 [History] Insulin Glargine,Hum.rec.anlog [Lantus Solostar] 10 unit SQ QAM 04/17/15 [ History] Promethazine [Phenergan] 12.5 - 25 mg PO Q6-8H PRN 04/17/15 [History] Carvedilol [Coreg] 6.25 mg PO BIDWM 06/08/15 [History] Donepezil HCl [Donepezil HCl Odt] 5 mg PO HS 06/08/15 [History] Acetaminophen with Codeine [Acetaminophen-Cod #3 Tablet] 1 tab PO Q4H PRN [History] Albuterol Sulfate [Albuterol Inhaler] 2 puff IH Q6H PRN 10/12/15 [History] Furosemide [Lasix] 20 mg PO DAILY 10/12/15 [History] Insulin Glargine,Hum.rec.anlog [Lantus Solostar] 8 unit SQ QPM 10/12/15 [History ] Omeprazole [PriLOSEC] 20 mg PO DAILY 10/12/15 [History] Oxycodone HCl/Acetaminophen [Percocet 5-325 mg Tablet] 1 each PO Q4H PRN [History] Amlodipine [Norvasc] 10 mg PO DAILY 01/26/16 [History] Ascorbate Calcium [Vitamin C] 500 mg PO DAILY 06/14/16 [History] Atorvastatin [Lipitor] 10 mg PO HS 06/14/16 [History] Calcitriol [Rocaltrol] 0.25 mcg PO DAILY 06/14/16 [History] CloNIDine HCl [Kapvay] 0.1 mg PO TID 06/14/16 [History] Clopidogrel [Plavix] 75 mg PO DAILY 06/14/16 [History] Docusate [Colace] 100 mg PO DAILY PRN 06/14/16 [History] Guaifenesin [Mucinex] 600 mg PO Q12H PRN 06/14/16 [History] Linagliptin [Tradjenta] 5 mg PO DAILY 06/14/16 [History] Alendronate Sodium [Fosamax] 70 mg PO QWEEK 06/22/16 [History] Budesonide/Formoterol 80/4.5 [Symbicort 80/4.5] 2 puff IH Q12H 06/22/16 [ History] Calcium Carbonate [Calcium] 600 mg PO BID 06/22/16 [History] Allergies/Adverse Reactions: Allergies aspirin [ASA] Allergy (Verified 05/18/16 13:40) Swelling of Lip/Tongue/Throat NSAIDS (Non-Steroidal Anti-Inflamma Allergy (Verified 05/18/16 13:40) Swelling of Lip/Tongue/Throat Penicillins Allergy (Verified 05/18/16 13:40) Hives iron Adverse Reaction (Verified 05/18/16 13:40) Unknown Push only - Respiratory Orders Smoking Cessation: Smoking cessation has been advised. For more information, call the [place] Tobacco Quit Line at 3-979-WIBX-NOW. - Advance Directives Code Status: Full Code - Treatments List/Other: Follow with primary care physician within the next 7 days. Taper prednisone. Continue Lasix. Hold Plavix if bleeding recurs. Follow-up with Dr. Corona within the next 2 weeks. Follow up with GI within the next 3-4 weeks. - Diet Orders No Added Salt (TANG) CERTIFICATION: I certify that the transfer of the above named patient to an Extended Care Facility is necessary for the continuing treatment of the diagnosis listed. The above information is true and accurate reflection of patient's current condition. Confidential - Redisclosure prohibited without a patient's written consent.
[2016-06-24] MEDS: Loratadine 10 MG TABLET PO SCH (21:32)
[2016-06-24] MEDS: *HR* OxyCODONE Immed Rel 5 MG TABLET PO PRN (21:33)
[2016-06-24] MEDS: Saline Nasal Spray 44 ML BOTTLE NS PRN (23:55)
[2016-06-25] MEDS: Ipratropium/Albuterol Neb 3 ML IH SCH ×6 (01:14→20:03)
[2016-06-25 03:50] LABS: Hematocrit 29.6 % (35.3-44.9); Hemoglobin 9.3 g/dL (11.5-15.4); Mean Corpuscular HGB Conc 31.4 g/dL (31.6-35.5); Mean Corpuscular Hemoglobin 26.5 pg (28.0-33.3); Mean Corpuscular Volume 84.3 fL (83.0-100.0); Mean Platelet Volume 10.5 fL (9.4-12.4); Platelet Count 304 K/mcL (140-400); Red Blood Count 3.51 M/mcL (3.82-4.97); Red Cell Distribution Width 16.1 % (11.5-14.5)
[2016-06-25 04:13] LABS: Calcium 8.5 mg/dL (8.6-10.8); Potassium 4.3 mEq/L (3.5-4.5)
[2016-06-25] MEDS: Acetaminophen 325 MG TABLET PO PRN ×2 (05:42→14:17)
[2016-06-25] MEDS: Ascorbic Acid 500 MG TABLET PO SCH (08:02)
[2016-06-25] MEDS: Magnesium Oxide 400 MG TABLET PO SCH ×2 (08:02→20:57)
[2016-06-25] MEDS: cloNIDine HCl 0.1 MG TABLET PO SCH ×3 (08:03→20:57)
[2016-06-25] MEDS: amLODIPine 5 MG TABLET PO SCH (08:04)
[2016-06-25] MEDS: methylPREDNISolone 125 MG/2 ML VIAL IVP SCH ×4 (08:04→20:56)
[2016-06-25] MEDS: Furosemide 20 MG/2 ML VIAL IVP SCH (08:04)
[2016-06-25] MEDS: Insulin LISPRO 300 UNITS/3 ML VIAL SQ SCH ×6 (08:10→20:58)
[2016-06-25] MEDS: Insulin DETEMIR 100 UNIT/ML X5UNITS SQ SCH ×2 (08:11→20:59)
[2016-06-25] MEDS: Saline Nasal Spray 44 ML BOTTLE NS PRN (08:24)
[2016-06-25] MEDS: Budesonide Neb 0.5 MG/2 ML IH SCH ×2 (08:30→20:03)
--- NOTE | 2016-06-25 09:00 | Internal Med Progress Note ---
Date of Encounter: 06/25/16 Time of Encounter: 08:58 - Assessment and plan (1) Acute exacerbation of chronic obstructive airways disease Current Visit: Yes Status: Acute Assessment and plan: Acute on chronic hypoxic respiratory failure secondary to acute COPD exacerbation from acute viral bronchitis (human metapneumovirus) Change in sputum color to yellow-green. CXR with cardiomegaly, stable and normal pulmonary vasculature. Discontinued Levaquin IV q 48 hours Start Rocephin day 1 ( incrased upper airway secretions ( yellowish) continue Solumedrol IV Duonebs, albuterol nebs High risk due to the respiratory failure and rectal bleed (2) Colonic ulcer Current Visit: Yes Status: Acute Assessment and plan: Acute blood loss anemia secondary to colonic ulcers/MVAs status post clipping and catheterization by colonoscopy Monitor CBC and transfuse blood as needed Consider holding Plavix if rectal bleed worsens (3) Hyperkalemia Current Visit: Yes Status: Acute Assessment and plan: Replete as needed (4) CKD (chronic kidney disease) stage 4, GFR 15-29 ml/min Current Visit: Yes Status: Chronic Assessment and plan: Acute on chronic renal failure Hold Lasix Follow as outpatient with Dr. Corona (5) Chronic blood loss anemia Current Visit: Yes Status: Chronic Assessment and plan: Patient being followed by oncology for anemia due to rectal bleeding. Patient received 2u RBCs 06/15/16 at cancer center. Anemia may be contributory to patient's dyspnea (6) History of CVA (cerebrovascular accident) Current Visit: Yes Status: Resolved Assessment and plan: Continue Plavix (7) CHF (congestive heart failure) Current Visit: No Status: Acute Assessment and plan: Mild acute diastolic CHF exacerbation Echocardiogram shows an ejection fraction of 55-60% with mild diastolic dysfunction Stop Lasix IV, patient takes Lasix 20 mg daily at home Qualifiers: Congestive heart failure type: diastolic Congestive heart failure chronicity: chronic Qualified Code(s): I50.32 - Chronic diastolic (congestive ) heart failure (8) Hyponatremia Current Visit: No Status: Acute (9) Insulin dependent type 2 diabetes mellitus Current Visit: No Status: Chronic Assessment and plan: Steroid-induced hyperglycemia in the setting of diabetes2 insulin-dependent Increased dose of Levemir from 10 units daily up to 14 units daily and from 8 units at night up to 12 units at night with a high dose insulin sliding scale during the daytime. 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 No chest pain, no fevers overnight. No dysuria. No further bleeding per rectum after her colonoscopy - Constitutional Vitals: Temp Pulse Resp BP Pulse Ox 98.0 F 68 16 154/79 91 L 06/25/16 06:54 06/25/16 06:54 06/25/16 06:54 06/25/16 06:54 06/25/16 06:54 General appearance: Present: cooperative, A&O X 3, pleasant, obese, answers questions appropriately - Head Head exam: Present: atraumatic, normocephalic - Eye Eye exam: Present: PERRL, conjuntiva pink, sclera anicteric Pupils: Present: PERRL - Neck Neck exam general surgery: Present: supple, trachea midline. Absent: lymphadenopathy - Respiratory Respiratory exam: Present: decreased breath sounds, CTAB. Absent: accessory muscle use, rales, rhonchi, wheezes - Cardiovascular Cardiovascular exam: Present: RRR, +S1, +S2. Absent: diastolic murmur, gallop, rubs, systolic murmur - GI/Abdominal GI/Abdominal exam: Present: normal bowel sounds, soft, no peritoneal signs. Absent: distended, tenderness - Extremities Exam Extremities exam: Present: warm, radial pulses palpable and symetrical. Absent : calf tenderness, cyanotic, pedal edema - Neurological Exam Neurological exam: Present: CN II-XII intact, oriented X3, no focal deficits. Absent: pronater drift, facial droop, speech deficit - Skin Skin exam: Present: dry, intact Internal Medicine: Result - Labs CBC & Chem 7: 06/25/16 02:57 06/25/16 02:57 Labs: Short CBC 06/25/16 Range/Units 02:57 WBC 7.5 (4.3-11.1) K/mcL Hgb 9.3 L (11.5-15.4) g/dL Hct 29.6 L (35.3-44.9) % Plt Count 304 (140-400) K/mcL BMP 06/25/16 02:57 Sodium 134 L Potassium 4.3 Chloride 103 Carbon Dioxide 18 L BUN 67 H Creatinine 2.71 H Glucose 345 H Calcium 8.5 L - ABG Interpretation ABG results: PT/INR, D-dimer PT 12.5 Seconds (9.4-12.1) H 06/22/16 23:13 Consult Discharge Plan - Plan Referrals: Vamsi Corona DO [Partnered Physician] - 07/06/16 11:00 am Garcia,Therese Mccormick CNP [Primary Care Provider] - 06/27/16 11:00 am
[2016-06-25] MEDS ORDERED: *HR* Propofol 500 MG/50 ML BOTTLE IVC ONE (09:04)
[2016-06-25] MEDS ORDERED: Lidocaine -MPF 2% 5 ML VIAL INFILT ONE (09:04)
[2016-06-25] MEDS ORDERED: Benzonatate 100 MG CAPSULE PO PRN (18:45)
[2016-06-25] MEDS: Loratadine 10 MG TABLET PO SCH (20:58)
[2016-06-26] MEDS: Ipratropium/Albuterol Neb 3 ML IH SCH ×6 (00:22→20:07)
[2016-06-26] MEDS: *HR* OxyCODONE Immed Rel 5 MG TABLET PO PRN ×3 (01:52→15:29)
[2016-06-26 07:28] LABS: Calcium 8.6 mg/dL (8.6-10.8); Magnesium 1.9 mg/dL (1.6-2.6); Potassium 4.7 mEq/L (3.5-4.5)
[2016-06-26 08:06] LABS: Hematocrit 30.2 % (35.3-44.9); Hemoglobin 9.3 g/dL (11.5-15.4); Mean Corpuscular HGB Conc 30.8 g/dL (31.6-35.5); Mean Corpuscular Volume 84.4 fL (83.0-100.0); Mean Platelet Volume 10.4 fL (9.4-12.4); Platelet Count 316 K/mcL (140-400); Red Blood Count 3.58 M/mcL (3.82-4.97)
[2016-06-26] MEDS: Budesonide Neb 0.5 MG/2 ML IH SCH ×2 (08:21→20:07)
[2016-06-26] MEDS: Magnesium Oxide 400 MG TABLET PO SCH ×2 (08:42→21:31)
[2016-06-26] MEDS: Insulin DETEMIR 100 UNIT/ML X5UNITS SQ SCH ×2 (08:44→21:33)
[2016-06-26] MEDS: amLODIPine 5 MG TABLET PO SCH (08:44)
[2016-06-26] MEDS: methylPREDNISolone 125 MG/2 ML VIAL IVP SCH (08:44)
[2016-06-26] MEDS: cloNIDine HCl 0.1 MG TABLET PO SCH ×3 (08:44→21:31)
[2016-06-26] MEDS: Ascorbic Acid 500 MG TABLET PO SCH (08:44)
[2016-06-26] MEDS: Insulin LISPRO 300 UNITS/3 ML VIAL SQ SCH ×7 (08:45→21:32)
--- NOTE | 2016-06-26 10:56 | Internal Med Progress Note ---
Date of Encounter: 06/26/16 Time of Encounter: 10:55 - Assessment and plan (1) Acute exacerbation of chronic obstructive airways disease Current Visit: Yes Status: Acute Assessment and plan: Acute on chronic hypoxic respiratory failure secondary to acute COPD exacerbation from acute viral bronchitis (human metapneumovirus) Change in sputum color to yellow-green. CXR with cardiomegaly, stable and normal pulmonary vasculature. Discontinued Levaquin IV q 48 hours Rocephin day 2 ( incrased upper airway secretions ( yellowish) continue Solumedrol IV (decreased dose down to 40 mg IV BID) Duonebs, albuterol nebs High risk due to the respiratory failure and rectal bleed (2) Colonic ulcer Current Visit: Yes Status: Acute Assessment and plan: Acute blood loss anemia secondary to colonic ulcers/MVAs status post clipping and catheterization by colonoscopy Monitor CBC and transfuse blood as needed Consider holding Plavix if rectal bleed worsens (3) Hyperkalemia Current Visit: Yes Status: Acute Assessment and plan: Replete as needed (4) CKD (chronic kidney disease) stage 4, GFR 15-29 ml/min Current Visit: Yes Status: Chronic Assessment and plan: Acute on chronic renal failure Hold Lasix Follow as outpatient with Dr. Corona (5) Chronic blood loss anemia Current Visit: Yes Status: Chronic Assessment and plan: Patient being followed by oncology for anemia due to rectal bleeding. Patient received 2u RBCs 06/15/16 at cancer center. Anemia may be contributory to patient's dyspnea (6) History of CVA (cerebrovascular accident) Current Visit: Yes Status: Resolved Assessment and plan: Continue Plavix (7) CHF (congestive heart failure) Current Visit: No Status: Acute Assessment and plan: Mild acute diastolic CHF exacerbation Echocardiogram shows an ejection fraction of 55-60% with mild diastolic dysfunction Stopped Lasix IV, patient takes Lasix 20 mg daily at home (resume), Qualifiers: Congestive heart failure type: diastolic Congestive heart failure chronicity: chronic Qualified Code(s): I50.32 - Chronic diastolic (congestive ) heart failure (8) Hyponatremia Current Visit: No Status: Acute (9) Insulin dependent type 2 diabetes mellitus Current Visit: No Status: Chronic Assessment and plan: Steroid-induced hyperglycemia in the setting of diabetes2 insulin-dependent Increased dose of Levemir from 10 units daily up to 14 units daily and from 8 units at night up to 12 units at night with a high dose insulin sliding scale during the daytime. 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 No chest pain, no fevers overnight. No dysuria. No further bleeding per rectum after her colonoscopy - Constitutional Vitals: Temp Pulse Resp BP Pulse Ox 98.0 F 59 16 170/95 94 L 06/26/16 07:31 06/26/16 07:31 06/26/16 07:31 06/26/16 07:31 06/26/16 07:31 General appearance: Present: cooperative, A&O X 3, pleasant, obese, answers questions appropriately - Head Head exam: Present: atraumatic, normocephalic - Eye Eye exam: Present: PERRL, conjuntiva pink, sclera anicteric Pupils: Present: PERRL - Neck Neck exam general surgery: Present: supple, trachea midline. Absent: lymphadenopathy - Respiratory Respiratory exam: Present: CTAB, wheezes (Diffuse wheezing). Absent: accessory muscle use, rales, rhonchi - Cardiovascular Cardiovascular exam: Present: RRR, +S1, +S2. Absent: diastolic murmur, gallop, rubs, systolic murmur - GI/Abdominal GI/Abdominal exam: Present: normal bowel sounds, soft, no peritoneal signs. Absent: distended, tenderness - Extremities Exam Extremities exam: Present: warm, radial pulses palpable and symetrical. Absent : calf tenderness, cyanotic, pedal edema - Neurological Exam Neurological exam: Present: CN II-XII intact, oriented X3, no focal deficits. Absent: pronater drift, facial droop, speech deficit - Skin Skin exam: Present: dry, intact Internal Medicine: Result - Labs CBC & Chem 7: 06/26/16 06:12 06/26/16 06:12 Labs: Short CBC 06/26/16 Range/Units 06:12 WBC 7.4 (4.3-11.1) K/mcL Hgb 9.3 L (11.5-15.4) g/dL Hct 30.2 L (35.3-44.9) % Plt Count 316 (140-400) K/mcL BMP 06/26/16 06:12 Sodium 136 Potassium 4.7 H Chloride 103 Carbon Dioxide 22 BUN 74 H Creatinine 2.46 H Glucose 292 H Calcium 8.6 - ABG Interpretation ABG results: PT/INR, D-dimer PT 12.5 Seconds (9.4-12.1) H 06/22/16 23:13 Consult Discharge Plan - Plan Referrals: Vamsi Corona DO [Partnered Physician] - 07/06/16 11:00 am Garcia,Therese Mccormick CNP [Primary Care Provider] - 06/27/16 11:00 am
[2016-06-26] MEDS ORDERED: Furosemide 20 MG TABLET PO SCH (11:00)
[2016-06-26] MEDS ORDERED: methylPREDNISolone 125 MG/2 ML VIAL IVP SCH (21:00)
[2016-06-26] MEDS: Loratadine 10 MG TABLET PO SCH (21:31)
[2016-06-27] MEDS: Ipratropium/Albuterol Neb 3 ML IH SCH ×6 (00:07→20:13)
[2016-06-27 04:28] LABS: Calcium 8.7 mg/dL (8.6-10.8); Potassium 4.9 mEq/L (3.5-4.5)
[2016-06-27] MEDS: Acetaminophen 325 MG TABLET PO PRN (05:36)
[2016-06-27] MEDS: Budesonide Neb 0.5 MG/2 ML IH SCH ×2 (07:43→20:13)
--- NOTE | 2016-06-27 08:53 | Internal Med Progress Note ---
Date of Encounter: 06/27/16 Time of Encounter: 08:51 - Assessment and plan (1) Acute exacerbation of chronic obstructive airways disease Current Visit: Yes Status: Acute Assessment and plan: Acute on chronic hypoxic respiratory failure secondary to acute COPD exacerbation from acute viral bronchitis (human metapneumovirus) with possible bacterial bronchitis overinfection Change in sputum color to yellow-green. CXR with cardiomegaly, stable and normal pulmonary vasculature. Discontinued Levaquin IV q 48 hours Rocephin day 3 ( incrased upper airway secretions ( yellowish) discontinue Solumedrol IV, taper down prednisone quickly down to 20 mg daily ( as prednisone can delay healing) Duonebs, albuterol nebs High risk due to the respiratory failure and rectal bleed (2) Colonic ulcer Current Visit: Yes Status: Acute Assessment and plan: Acute blood loss anemia secondary to colonic ulcers/MVAs status post clipping and catheterization by colonoscopy Monitor CBC and transfuse blood as needed hold Plavix may reconsult Dr Escobedo again if bleeding recurs (3) Hyperkalemia Current Visit: Yes Status: Acute Assessment and plan: Replete as needed (4) CKD (chronic kidney disease) stage 4, GFR 15-29 ml/min Current Visit: Yes Status: Chronic Assessment and plan: Acute on chronic renal failure Hold Lasix Follow as outpatient with Dr. Corona (5) Chronic blood loss anemia Current Visit: Yes Status: Chronic Assessment and plan: Patient being followed by oncology for anemia due to rectal bleeding. Patient received 2u RBCs 06/15/16 at cancer center. Anemia may be contributory to patient's dyspnea (6) History of CVA (cerebrovascular accident) Current Visit: Yes Status: Resolved Assessment and plan: hold Plavix (7) CHF (congestive heart failure) Current Visit: No Status: Acute Assessment and plan: Mild acute diastolic CHF exacerbation Echocardiogram shows an ejection fraction of 55-60% with mild diastolic dysfunction Stopped Lasix IV, patient takes Lasix 20 mg daily at home, hold lasix due to GI bleed Qualifiers: Congestive heart failure type: diastolic Congestive heart failure chronicity: chronic Qualified Code(s): I50.32 - Chronic diastolic (congestive ) heart failure (8) Hyponatremia Current Visit: No Status: Acute (9) Insulin dependent type 2 diabetes mellitus Current Visit: No Status: Chronic Assessment and plan: Steroid-induced hyperglycemia in the setting of diabetes2 insulin-dependent Increased dose of Levemir from 10 units daily up to 14 units daily and from 8 units at night up to 12 units at night with a high dose insulin sliding scale during the daytime. 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 Feels less short of breath, denies any abdominal pain. No chest pain, no fevers overnight. No dysuria. - Constitutional Vitals: Temp Pulse Resp BP Pulse Ox 97.8 F 67 15 157/74 96 06/27/16 08:05 06/27/16 08:05 06/27/16 08:05 06/27/16 08:05 06/27/16 08:05 General appearance: Present: cooperative, A&O X 3, pleasant, obese, answers questions appropriately - Head Head exam: Present: atraumatic, normocephalic - Eye Eye exam: Present: PERRL, conjuntiva pink, sclera anicteric Pupils: Present: PERRL - Neck Neck exam general surgery: Present: supple, trachea midline. Absent: lymphadenopathy - Respiratory Respiratory exam: Present: decreased breath sounds, CTAB. Absent: accessory muscle use, rales, rhonchi, wheezes - Cardiovascular Cardiovascular exam: Present: RRR, +S1, +S2. Absent: diastolic murmur, gallop, rubs, systolic murmur - GI/Abdominal GI/Abdominal exam: Present: normal bowel sounds, soft, no peritoneal signs. Absent: distended, tenderness - Extremities Exam Extremities exam: Present: warm, radial pulses palpable and symetrical. Absent : calf tenderness, cyanotic, pedal edema - Neurological Exam Neurological exam: Present: CN II-XII intact, oriented X3, no focal deficits. Absent: pronater drift, facial droop, speech deficit - Skin Skin exam: Present: dry, intact Internal Medicine: Result - Labs CBC & Chem 7: 06/26/16 06:12 06/27/16 04:03 Labs: BMP 06/27/16 04:03 Sodium 135 L Potassium 4.9 H Chloride 104 Carbon Dioxide 19 BUN 83 H Creatinine 2.36 H Glucose 354 H Calcium 8.7 - ABG Interpretation ABG results: PT/INR, D-dimer PT 12.5 Seconds (9.4-12.1) H 06/22/16 23:13 Consult Discharge Plan - Plan Referrals: Vamsi Corona DO [Partnered Physician] - 07/06/16 11:00 am Garcia,Therese Mccormick CNP [Primary Care Provider] - 06/27/16 11:00 am
[2016-06-27] MEDS: Ascorbic Acid 500 MG TABLET PO SCH (09:04)
[2016-06-27] MEDS: Magnesium Oxide 400 MG TABLET PO SCH ×2 (09:04→21:14)
[2016-06-27] MEDS: cloNIDine HCl 0.1 MG TABLET PO SCH ×3 (09:04→21:14)
[2016-06-27] MEDS: Insulin LISPRO 300 UNITS/3 ML VIAL SQ SCH ×7 (09:05→21:15)
[2016-06-27] MEDS: amLODIPine 5 MG TABLET PO SCH (09:05)
[2016-06-27 09:06] LABS: Basophils % 0.1 %; Hematocrit 31.1 % (35.3-44.9); Hemoglobin 9.8 g/dL (11.5-15.4); Immature Granulocytes % 1.2 % (0-4); Lymphocytes # 0.7 K/mcL (0.6-4.6); Lymphocytes % 7.7 %; Mean Corpuscular HGB Conc 31.5 g/dL (31.6-35.5); Mean Corpuscular Hemoglobin 26.4 pg (28.0-33.3); Mean Corpuscular Volume 83.8 fL (83.0-100.0); Mean Platelet Volume 9.9 fL (9.4-12.4); Monocytes # 0.5 K/mcL (0.0-1.3); Neutrophils # 7.4 K/mcL (1.6-8.9); Platelet Count 331 K/mcL (140-400); Red Blood Count 3.71 M/mcL (3.82-4.97); Red Cell Distribution Width 15.8 % (11.5-14.5)
[2016-06-27] MEDS: Insulin DETEMIR 100 UNIT/ML X5UNITS SQ SCH ×2 (09:06→21:13)
[2016-06-27] MEDS: predniSONE 20 MG TABLET PO SCH (09:17)
[2016-06-27] MEDS: *HR* OxyCODONE Immed Rel 5 MG TABLET PO PRN (16:18)
[2016-06-27] MEDS: Pantoprazole 40 MG VIAL IVP SCH (17:45)
[2016-06-27] MEDS ORDERED: 0.9 % Sodium Chloride 250 ML ONE (20:26)
[2016-06-27] MEDS: Loratadine 10 MG TABLET PO SCH (21:15)
[2016-06-27] MEDS: *HR* OxyCODONE/APAP 5/325 TABLET PO PRN (21:24)
[2016-06-28] MEDS: Ipratropium/Albuterol Neb 3 ML IH SCH ×7 (00:41→23:04)
[2016-06-28] MEDS: *HR* OxyCODONE/APAP 5/325 TABLET PO PRN ×2 (05:04→21:45)
[2016-06-28] MEDS: Pantoprazole 40 MG VIAL IVP SCH ×2 (05:04→17:04)
[2016-06-28 05:05] LABS: Hematocrit 24.7 % (35.3-44.9); Mean Corpuscular HGB Conc 32.8 g/dL (31.6-35.5); Mean Corpuscular Hemoglobin 27.6 pg (28.0-33.3); Mean Corpuscular Volume 84.3 fL (83.0-100.0); Mean Platelet Volume 10.8 fL (9.4-12.4); Platelet Count 272 K/mcL (140-400); Red Blood Count 2.93 M/mcL (3.82-4.97); Red Cell Distribution Width 15.6 % (11.5-14.5)
[2016-06-28 05:16] LABS: Hemoglobin 8.1 g/dL (11.5-15.4)
[2016-06-28 05:38] LABS: Calcium 8.2 mg/dL (8.6-10.8); Potassium 4.8 mEq/L (3.5-4.5)
[2016-06-28] MEDS: Budesonide Neb 0.5 MG/2 ML IH SCH ×2 (07:57→19:59)
[2016-06-28] MEDS: Ascorbic Acid 500 MG TABLET PO SCH (08:28)
[2016-06-28] MEDS: cloNIDine HCl 0.1 MG TABLET PO SCH ×3 (08:28→21:45)
[2016-06-28] MEDS: Magnesium Oxide 400 MG TABLET PO SCH ×2 (08:28→21:46)
[2016-06-28] MEDS: amLODIPine 5 MG TABLET PO SCH (08:29)
[2016-06-28] MEDS: predniSONE 20 MG TABLET PO SCH (08:29)
[2016-06-28] MEDS: Insulin DETEMIR 100 UNIT/ML X5UNITS SQ SCH ×2 (08:29→21:58)
[2016-06-28] MEDS: Insulin LISPRO 300 UNITS/3 ML VIAL SQ SCH ×7 (08:32→21:56)
--- NOTE | 2016-06-28 10:05 | Internal Med Progress Note ---
Date of Encounter: 06/28/16 Time of Encounter: 09:55 - Assessment and plan (1) Acute exacerbation of chronic obstructive airways disease Current Visit: Yes Status: Acute Assessment and plan: Acute on chronic hypoxic respiratory failure secondary to acute COPD exacerbation from acute viral bronchitis (human metapneumovirus) with possible bacterial bronchitis overinfection Change in sputum color to yellow-green. CXR with cardiomegaly, stable and normal pulmonary vasculature. Discontinued Levaquin IV q 48 hours Rocephin day 3 ( incrased upper airway secretions ( yellowish) discontinued Solumedrol IV, taper down prednisone quickly down to 20 mg daily ( as prednisone can delay healing) Duonebs, albuterol nebs Resume po lasix. High risk due to the respiratory failure and rectal bleed (2) Chronic blood loss anemia Current Visit: Yes Status: Chronic Assessment and plan: Patient being followed by oncology for anemia due to rectal bleeding. Patient received 2u RBCs 06/15/16 at [facility]. Anemia may be contributory to patient's dyspnea, however the patient had a bleeding last night and received 1 unit of prbc. Her hemoglobin on admission was 10.2, today's morning is 8.1. Continue monitoring closely. (3) Hypertension Current Visit: Yes Status: Chronic Qualifiers: Hypertension type: essential hypertension Qualified Code(s): I10 - Essential (primary) hypertension (4) History of CVA (cerebrovascular accident) Current Visit: Yes Status: Resolved Assessment and plan: hold Plavix. (5) Rectal bleed Current Visit: No Status: Acute Assessment and plan: Status post colonoscopy, GI on board. - Time Spent With Patient 25 - 35 minutes - Subjective Interval history: The first encounter with the patient. She had bloody bowel movements overnight, with clots. She received a unit of blood last night, her hemoglobin today is 8.1. Otherwise she denies shortness of breath. She is using a nasal cannula. - Constitutional Vitals: Temp Pulse Resp BP Pulse Ox 98.2 F 66 16 147/76 94 L 06/28/16 06:28 06/28/16 06:28 06/28/16 06:28 06/28/16 06:28 06/28/16 08:54 General appearance: Present: cooperative, A&O X 3, pleasant, obese, answers questions appropriately Exam: Patient is alert, awake, oriented, she is using nasal cannula. Lungs are clear, but sounds are diminished in both bases. - Head Head exam: Present: atraumatic, normocephalic - Eye Eye exam: Present: PERRL, conjuntiva pink, sclera anicteric Pupils: Present: PERRL - Neck Neck exam general surgery: Present: supple, trachea midline. Absent: lymphadenopathy - Respiratory Respiratory exam: Present: CTAB. Absent: accessory muscle use, rales, rhonchi, wheezes - Cardiovascular Cardiovascular exam: Present: RRR, +S1, +S2. Absent: diastolic murmur, gallop, rubs, systolic murmur - GI/Abdominal GI/Abdominal exam: Present: normal bowel sounds, soft, no peritoneal signs. Absent: distended, tenderness - Extremities Exam Extremities exam: Present: warm, radial pulses palpable and symetrical. Absent : calf tenderness, cyanotic, pedal edema - Neurological Exam Neurological exam: Present: CN II-XII intact, oriented X3, no focal deficits. Absent: pronater drift, facial droop, speech deficit - Skin Skin exam: Present: dry, intact Internal Medicine: Result - Labs CBC & Chem 7: 06/28/16 03:55 06/28/16 03:55 Labs: Short CBC 06/28/16 Range/Units 03:55 WBC 8.6 (4.3-11.1) K/mcL Hgb 8.1 L D (11.5-15.4) g/dL Hct 24.7 L (35.3-44.9) % Plt Count 272 (140-400) K/mcL BMP 06/28/16 03:55 Sodium 133 L Potassium 4.8 H Chloride 103 Carbon Dioxide 21 BUN 97 H Creatinine 2.44 H Glucose 263 H Calcium 8.2 L - ABG Interpretation ABG results: PT/INR, D-dimer PT 12.5 Seconds (9.4-12.1) H 06/22/16 23:13 Consult Discharge Plan - Plan Referrals: Vamsi Corona DO [Partnered Physician] - 07/06/16 11:00 am Jose,Therese Mccormick CNP [Primary Care Provider] - 07/06/16 3:30 pm
[2016-06-28] MEDS ORDERED: Furosemide 20 MG TABLET PO PRN (10:07)
[2016-06-28 14:52] LABS: Hematocrit 26.5 % (35.3-44.9); Hemoglobin 8.4 g/dL (11.5-15.4)
[2016-06-28] MEDS: *HR* OxyCODONE Immed Rel 5 MG TABLET PO PRN (14:59)
--- NOTE | 2016-06-28 17:36 | Event Note ---
Date of Encounter: 06/28/16 Time of Encounter: 13:45 Pt still with significant rectal bleeding again. O/E: Rectal with old blood A: Recurrent rectal bleed Plan: Colon prep and if bleeding cont, then colon again
[2016-06-28] MEDS ORDERED: SODIUM CHLORIDE/NAHCO3/KCL/PEG 4,000 ML SOLN.RECON PO ONE (18:00)
[2016-06-28] MEDS: Loratadine 10 MG TABLET PO SCH (21:47)
[2016-06-29 03:51] LABS: Eosinophils % 0.1 %; Hematocrit 24.2 % (35.3-44.9); Hemoglobin 7.8 g/dL (11.5-15.4); Immature Granulocytes % 1.6 % (0-4); Lymphocytes # 1.8 K/mcL (0.6-4.6); Lymphocytes % 24.1 %; Mean Corpuscular HGB Conc 32.2 g/dL (31.6-35.5); Mean Corpuscular Volume 83.7 fL (83.0-100.0); Mean Platelet Volume 10.3 fL (9.4-12.4); Monocytes # 0.6 K/mcL (0.0-1.3); Monocytes % 8.1 %; Neutrophils # 4.9 K/mcL (1.6-8.9); Platelet Count 262 K/mcL (140-400); Red Blood Count 2.89 M/mcL (3.82-4.97); Red Cell Distribution Width 15.3 % (11.5-14.5); Segmented Neutrophils % 66.1 %
[2016-06-29 03:55] LABS: Prothrombin Time 10.8 Seconds (9.4-12.1)
[2016-06-29] MEDS: Ipratropium/Albuterol Neb 3 ML IH SCH ×6 (04:01→23:16)
[2016-06-29 04:03] LABS: Calcium 8.1 mg/dL (8.6-10.8); Potassium 3.9 mEq/L (3.5-4.5)
[2016-06-29] MEDS: Pantoprazole 40 MG VIAL IVP SCH ×2 (05:22→17:15)
[2016-06-29] MEDS: *HR* OxyCODONE/APAP 5/325 TABLET PO PRN ×2 (05:57→15:30)
[2016-06-29] MEDS: Budesonide Neb 0.5 MG/2 ML IH SCH ×2 (08:06→20:37)
[2016-06-29] MEDS: Insulin LISPRO 300 UNITS/3 ML VIAL SQ SCH ×7 (09:16→22:16)
[2016-06-29] MEDS ORDERED: Furosemide 20 MG/2 ML VIAL IVP ONE (09:49)
[2016-06-29] MEDS: amLODIPine 5 MG TABLET PO SCH (10:18)
[2016-06-29] MEDS: Ascorbic Acid 500 MG TABLET PO SCH (10:18)
[2016-06-29] MEDS: cloNIDine HCl 0.1 MG TABLET PO SCH ×3 (10:18→22:15)
[2016-06-29] MEDS: Magnesium Oxide 400 MG TABLET PO SCH ×2 (10:20→22:15)
[2016-06-29] MEDS: predniSONE 20 MG TABLET PO SCH (10:20)
--- NOTE | 2016-06-29 10:24 | Internal Med Progress Note ---
Date of Encounter: 06/29/16 Time of Encounter: 10:22 - Assessment and plan (1) Chronic blood loss anemia Current Visit: Yes Status: Chronic Assessment and plan: Patient being followed by oncology for anemia due to rectal bleeding. S/P argon plasma last monday. Received 1 unit on 06/2016. Patient received 2u RBCs 06/15/16 at [facility]. Hb dropped to 7.8 from 8.4. Will recheck later today. Colon prep as per GI recommendations, possible colonoscopy today. Renal function is at the patient's baseline. D/W patient and daughter extensively, all questions were answered. (2) Acute exacerbation of chronic obstructive airways disease Current Visit: Yes Status: Acute Assessment and plan: Acute on chronic hypoxic respiratory failure secondary to acute COPD exacerbation from acute viral bronchitis (human metapneumovirus) with possible bacterial bronchitis overinfection Change in sputum color to yellow-green. CXR with cardiomegaly, stable and normal pulmonary vasculature. Discontinued Levaquin IV q 48 hours Cotinue with Rocephin Prednisone 20 mg daily Duonebs, albuterol nebs lasix today High risk due to the respiratory failure and rectal bleed (3) Hypertension Current Visit: Yes Status: Chronic Qualifiers: Hypertension type: essential hypertension Qualified Code(s): I10 - Essential (primary) hypertension (4) History of CVA (cerebrovascular accident) Current Visit: Yes Status: Resolved Assessment and plan: hold Plavix. (5) Rectal bleed Current Visit: No Status: Acute Assessment and plan: Status post colonoscopy, GI on board. - Time Spent With Patient 25 - 35 minutes - Subjective Interval history: The patient denies chest pain, shortness of breath. No fever, no cough. with a nasal cannula. Took GoLYTELY for colon prep in anticipation of possible colonoscopy later today. daughter at bedside. - Constitutional Vitals: Temp Pulse Resp BP Pulse Ox 97.4 F L 58 16 162/84 97 06/29/16 08:44 06/29/16 08:44 06/29/16 08:44 06/29/16 08:44 06/29/16 08:44 General appearance: Present: cooperative, A&O X 3, pleasant, obese, answers questions appropriately Exam: nasal cannula - Head Head exam: Present: atraumatic, normocephalic - Eye Eye exam: Present: PERRL, conjuntiva pink, sclera anicteric Pupils: Present: PERRL - Neck Neck exam general surgery: Present: supple, trachea midline. Absent: lymphadenopathy - Respiratory Respiratory exam: Present: CTAB. Absent: accessory muscle use, rales, rhonchi, wheezes - Cardiovascular Cardiovascular exam: Present: RRR, +S1, +S2. Absent: diastolic murmur, gallop, rubs, systolic murmur - GI/Abdominal GI/Abdominal exam: Present: normal bowel sounds, soft, no peritoneal signs. Absent: distended, tenderness - Extremities Exam Extremities exam: Present: warm, radial pulses palpable and symetrical. Absent : calf tenderness, cyanotic, pedal edema - Neurological Exam Neurological exam: Present: CN II-XII intact, oriented X3, no focal deficits. Absent: pronater drift, facial droop, speech deficit - Skin Skin exam: Present: dry, intact Internal Medicine: Result - Labs CBC & Chem 7: 06/29/16 03:35 06/29/16 03:35 Labs: Short CBC 06/28/16 06/29/16 Range/Units 13:55 03:35 WBC 7.4 (4.3-11.1) K/mcL Hgb 8.4 L 7.8 L (11.5-15.4) g/dL Hct 26.5 L 24.2 L (35.3-44.9) % Plt Count 262 (140-400) K/mcL Neutrophils # 4.9 (1.6-8.9) K/mcL BMP 06/29/16 03:35 Sodium 137 Potassium 3.9 Chloride 105 Carbon Dioxide 23 BUN 91 H Creatinine 2.11 H Glucose 102 H Calcium 8.1 L - ABG Interpretation ABG results: PT/INR, D-dimer PT 10.8 Seconds (9.4-12.1) 06/29/16 03:35 - VTE Documentation of Mechanical Device: Intermittent pneumatic compression device Consult Discharge Plan - Plan Referrals: Vamsi Corona DO [Partnered Physician] - 07/06/16 11:00 am Garcia,Therese Mccormick CNP [Primary Care Provider] - 07/06/16 3:30 pm
[2016-06-29] MEDS: Insulin DETEMIR 100 UNIT/ML X5UNITS SQ SCH ×2 (10:42→22:17)
--- NOTE | 2016-06-29 11:41 | Gastroenterology Progress Note ---
<Turner Carcamo - Last Filed: 06/29/16 11:39> Date of Encounter: 06/29/16 Time of Encounter: 10:45 - Assessment and plan (1) Anemia Current Visit: No Status: Acute Assessment and plan: She follows hematology and received 2 units PRBC 06/15/16 plus IV iron. 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 Colonoscopy with internal hemorrhoids and mucosal ulcerations treated with APC and clips. Biopsies show focally ulcerated mucosa and mild chronic inflammation. Hgb 8.1 yesterday and 7.8 this AM. CBC to be checked this afternoon. Consider repeat colonoscopy pending CBC results. Qualifiers: Anemia type: iron deficiency Iron deficiency anemia type: unspecified iron deficiency Qualified Code(s): D50.9 - Iron deficiency anemia, unspecified (2) Rectal bleed Current Visit: No Status: Acute Assessment and plan: Hgb 7.8 this AM, repeating this afternoon. Consider colonoscopy pending CBC result. (3) COPD (chronic obstructive pulmonary disease) Current Visit: No Status: Chronic Qualifiers: COPD type: unspecified COPD Qualified Code(s): J44.9 - Chronic obstructive pulmonary disease, unspecified (4) Gastrointestinal stromal tumor (GIST) Current Visit: No Status: Resolved - Time Spent With Patient Total time spent is greater than 50% in coordination of care (as documented) at patient's floor/unit and/or counseling patient: - Subjective Interval history: Pt reports no bleeding Monday, Monday, or Monday, but had 7 episodes of BRBPR on Monday. No further bleeding on Monday, but states she noticed BRBPR while taking bowel prep. - Constitutional Vitals: Temp Pulse Resp BP Pulse Ox 97.4 F L 58 16 162/84 97 06/29/16 08:44 06/29/16 08:44 06/29/16 08:44 06/29/16 08:44 06/29/16 08:44 General appearance: Present: cooperative, A&O X 3, no acute distress, answers questions appropriately - Head Head exam: Present: atraumatic, normocephalic - Eye Eye exam: Present: normal appearance, sclera anicteric - ENT ENT exam: Present: mucous membranes dry - Neck Neck exam general surgery: Present: normal inspection, trachea midline - Respiratory Respiratory exam: Present: CTAB. Absent: rales, rhonchi - Cardiovascular Cardiovascular exam: Present: RRR, +S1, +S2 - GI/Abdominal GI/Abdominal exam: Present: soft, no peritoneal signs. Absent: distended, firm , guarding, tenderness - Rectal Rectal exam: Present: deferred - Extremities Exam Extremities exam: Present: warm - Neurological Exam Neurological exam: Present: no focal deficits - Psychiatric Psychiatric exam: Present: normal affect, normal mood - Skin Skin exam: Present: dry, intact, normal color, warm Results - Labs CBC & Chem 7: 06/29/16 03:35 06/29/16 03:35 Labs: Last Result Calcium 8.1 mg/dL (8.6-10.8) L 06/29/16 03:35 Iron 32 mcg/dL (50-170) L 06/23/16 04:13 % Saturation 8 % (15-50) L 06/23/16 04:13 Transferrin 280 mg/dL (180-382) 06/23/16 04:13 Ferritin 23 ng/ml (5-204) 06/23/16 04:13 Troponin I 0.01 ng/mL (0-0.03) 06/22/16 23:13 Triglycerides 43 mg/dL (< 150) 06/23/16 04:13 Entire Visit Hgb 7.8 g/dL (11.5-15.4) L 06/29/16 03:35 Hct 24.2 % (35.3-44.9) L 06/29/16 03:35 PT 10.8 Seconds (9.4-12.1) 06/29/16 03:35 Ferritin 23 ng/ml (5-204) 06/23/16 04:13 Total Bilirubin 0.7 mg/dL (0.2-1.2) 06/22/16 23:13 AST 18 Units/L (5-34) 06/22/16 23:13 ALT 19 Units/L (0-55) 06/22/16 23:13 - ABG ABG results: PT/INR, D-dimer PT 10.8 Seconds (9.4-12.1) 06/29/16 03:35 - VTE Documentation of Mechanical Device: Intermittent pneumatic compression device Consult Discharge Plan - Plan Referrals: Vamsi Corona DO [Partnered Physician] - 07/06/16 11:00 am Garcia,Therese Mccormick TERRA[employer] TILE [employer]TER [Primary Care Provider] - 07/06/16 3:30 pm <Prudence Escobedo - Last Filed: 06/29/16 14:25> Date of Encounter: 06/29/16 Time of Encounter: 12:40 - Time Spent With Patient Total time spent is greater than 50% in coordination of care (as documented) at patient's floor/unit and/or counseling patient: - Constitutional Vitals: Temp Pulse Resp BP Pulse Ox 97.0 F L 57 16 131/61 95 06/29/16 11:54 06/29/16 11:54 06/29/16 11:54 06/29/16 11:54 06/29/16 11:54 Results - Labs CBC & Chem 7: 06/29/16 03:35 06/29/16 03:35 Labs: Last Result Calcium 8.1 mg/dL (8.6-10.8) L 06/29/16 03:35 Iron 32 mcg/dL (50-170) L 06/23/16 04:13 % Saturation 8 % (15-50) L 06/23/16 04:13 Transferrin 280 mg/dL (180-382) 06/23/16 04:13 Ferritin 23 ng/ml (5-204) 06/23/16 04:13 Troponin I 0.01 ng/mL (0-0.03) 06/22/16 23:13 Triglycerides 43 mg/dL (< 150) 06/23/16 04:13 Entire Visit Hgb 7.8 g/dL (11.5-15.4) L 06/29/16 03:35 Hct 24.2 % (35.3-44.9) L 06/29/16 03:35 PT 10.8 Seconds (9.4-12.1) 06/29/16 03:35 Ferritin 23 ng/ml (5-204) 06/23/16 04:13 Total Bilirubin 0.7 mg/dL (0.2-1.2) 06/22/16 23:13 AST 18 Units/L (5-34) 06/22/16 23:13 ALT 19 Units/L (0-55) 06/22/16 23:13 - ABG ABG results: PT/INR, D-dimer PT 10.8 Seconds (9.4-12.1) 06/29/16 03:35 - Attending Attestation I examined this patient and my medical decision-making was reviewed with the METAL STAMPER/PA/Advanced Practice Nurse/Resident Physician. I agree with the documented findings, disposition and treatment plan as described except to the extent set forth below. Patient with no more active bleeding at this point. Rectal examination done and no blood was seen. Doing colonoscopy at this point may not be rewarding. We will follow for now and if has any recurrent bleeding then I will do colonoscopy as the yield would be high than. For now clear liquid diet and will give her half of the prep of Miralax just to keep her colon cleaned if in case I have to do colon tomorrow
[2016-06-29] MEDS ORDERED: Polyethylene Glycol 3350 255 GM POWDER PO ONE (14:25)
[2016-06-29 14:40] LABS: Hemoglobin 8.4 g/dL (11.5-15.4)
[2016-06-29] MEDS: Loratadine 10 MG TABLET PO SCH (22:17)
[2016-06-29] MEDS: *HR* OxyCODONE Immed Rel 5 MG TABLET PO PRN (22:26)
[2016-06-30] MEDS: *HR* OxyCODONE Immed Rel 5 MG TABLET PO PRN ×3 (03:55→20:11)
[2016-06-30 05:23] LABS: Basophils % 0.1 %; Eosinophils % 0.1 %; Hematocrit 23.3 % (35.3-44.9); Hemoglobin 7.6 g/dL (11.5-15.4); Immature Granulocytes % 1.8 % (0-4); Immature Platelets 4.5 % (1.1-6.1); Lymphocytes # 1.1 K/mcL (0.6-4.6); Lymphocytes % 15.7 %; Mean Corpuscular HGB Conc 32.6 g/dL (31.6-35.5); Mean Corpuscular Hemoglobin 27.2 pg (28.0-33.3); Mean Corpuscular Volume 83.5 fL (83.0-100.0); Mean Platelet Volume 10.5 fL (9.4-12.4); Monocytes # 0.5 K/mcL (0.0-1.3); Monocytes % 7.6 %; Neutrophils # 5.3 K/mcL (1.6-8.9); Platelet Count 301 K/mcL (140-400); Red Blood Count 2.79 M/mcL (3.82-4.97); Red Cell Distribution Width 15.1 % (11.5-14.5); Segmented Neutrophils % 74.7 %
[2016-06-30] MEDS: Ipratropium/Albuterol Neb 3 ML IH SCH ×5 (05:35→19:50)
[2016-06-30] MEDS: Pantoprazole 40 MG VIAL IVP SCH ×2 (05:44→17:15)
[2016-06-30 06:15] LABS: Potassium 4.1 mEq/L (3.5-4.5)
[2016-06-30] MEDS: Budesonide Neb 0.5 MG/2 ML IH SCH ×2 (07:48→19:51)
[2016-06-30] MEDS: Furosemide 20 MG TABLET PO SCH (09:17)
[2016-06-30] MEDS: cloNIDine HCl 0.1 MG TABLET PO SCH ×3 (09:17→20:11)
[2016-06-30] MEDS: predniSONE 20 MG TABLET PO SCH (09:17)
[2016-06-30] MEDS: Magnesium Oxide 400 MG TABLET PO SCH (09:17)
[2016-06-30] MEDS: Ascorbic Acid 500 MG TABLET PO SCH (09:17)
[2016-06-30] MEDS: Insulin LISPRO 300 UNITS/3 ML VIAL SQ SCH ×7 (09:17→20:09)
[2016-06-30] MEDS: amLODIPine 5 MG TABLET PO SCH (09:18)
[2016-06-30] MEDS: Insulin DETEMIR 100 UNIT/ML X5UNITS SQ SCH ×2 (09:18→20:10)
[2016-06-30] MEDS: *HR* OxyCODONE/APAP 5/325 TABLET PO PRN (09:33)
[2016-06-30] MEDS ORDERED: Furosemide 20 MG/2 ML VIAL IVP ONE ×2 (10:09→16:45)
--- NOTE | 2016-06-30 10:10 | Internal Med Progress Note ---
Date of Encounter: 06/30/16 Time of Encounter: 10:07 - Assessment and plan (1) Chronic blood loss anemia Current Visit: Yes Status: Chronic Assessment and plan: Patient being followed by oncology for anemia due to rectal bleeding. S/P argon plasma last monday. Received 1 unit on 06/2016. Patient received 2u RBCs 06/15/[facility]. Hb dropped to 7.6, will give 2 units of prbc and monitor hb tomorrow in am. Renal function is at the patient's baseline. D/W patient extensively, all questions were answered. Possible d/c tomorrow. (2) Acute exacerbation of chronic obstructive airways disease Current Visit: Yes Status: Acute Assessment and plan: Acute on chronic hypoxic respiratory failure secondary to acute COPD exacerbation from acute viral bronchitis (human metapneumovirus) with possible bacterial bronchitis overinfection Change in sputum color to yellow-green. CXR with cardiomegaly, stable and normal pulmonary vasculature. Discontinued Levaquin IV q 48 hours Cotinue with Rocephin Prednisone 20 mg daily Duonebs, albuterol nebs High risk due to the respiratory failure and rectal bleed (3) Hypertension Current Visit: Yes Status: Chronic Qualifiers: Hypertension type: essential hypertension Qualified Code(s): I10 - Essential (primary) hypertension (4) History of CVA (cerebrovascular accident) Current Visit: Yes Status: Resolved Assessment and plan: hold Plavix. (5) Rectal bleed Current Visit: No Status: Acute Assessment and plan: Status post colonoscopy, GI on board. - Time Spent With Patient 25 - 35 minutes - Subjective Interval history: The patient denies chest pain, shortness of breath. No fever, no cough. with a nasal cannula. Hb dropped. - Constitutional Vitals: Temp Pulse Resp BP Pulse Ox 97.6 F 59 16 166/69 95 06/30/16 07:17 06/30/16 07:17 06/30/16 07:48 06/30/16 07:06/30/16 07:48 General appearance: Present: cooperative, A&O X 3, pleasant, obese, answers questions appropriately - Head Head exam: Present: atraumatic, normocephalic - Eye Eye exam: Present: PERRL, conjuntiva pink, sclera anicteric Pupils: Present: PERRL - Neck Neck exam general surgery: Present: supple, trachea midline. Absent: lymphadenopathy - Respiratory Respiratory exam: Present: CTAB. Absent: accessory muscle use, rales, rhonchi, wheezes - Cardiovascular Cardiovascular exam: Present: RRR, +S1, +S2. Absent: diastolic murmur, gallop, rubs, systolic murmur - GI/Abdominal GI/Abdominal exam: Present: normal bowel sounds, soft, no peritoneal signs. Absent: distended, tenderness - Extremities Exam Extremities exam: Present: warm, radial pulses palpable and symetrical. Absent : calf tenderness, cyanotic, pedal edema - Neurological Exam Neurological exam: Present: CN II-XII intact, oriented X3, no focal deficits. Absent: pronater drift, facial droop, speech deficit - Skin Skin exam: Present: dry, intact Internal Medicine: Result - Labs CBC & Chem 7: 06/30/16 03:45 06/30/16 03:45 Labs: Short CBC 06/29/16 06/30/16 Range/Units 14:30 03:45 WBC 7.1 (4.3-11.1) K/mcL Hgb 8.4 L 7.6 L (11.5-15.4) g/dL Hct 26.0 L 23.3 L (35.3-44.9) % Plt Count 301 (140-400) K/mcL Neutrophils # 5.3 (1.6-8.9) K/mcL BMP 06/30/16 03:45 Sodium 135 L Potassium 4.1 Chloride 102 Carbon Dioxide 25 BUN 65 H D Creatinine 1.71 H Glucose 157 H Calcium 8.0 L - ABG Interpretation ABG results: PT/INR, D-dimer PT 10.8 Seconds (9.4-12.1) 06/29/16 03:35 - VTE Documentation of Mechanical Device: Intermittent pneumatic compression device Consult Discharge Plan - Plan Referrals: Vamsi Corona DO [Partnered Physician] - 07/06/16 11:00 am Therese Garcia CNP [Primary Care Provider] - 07/06/16 3:30 pm
--- NOTE | 2016-06-30 11:12 | Gastroenterology Progress Note ---
<Turner Carcamo - Last Filed: 06/30/16 11:09> Date of Encounter: 06/30/16 Time of Encounter: 10:10 - Assessment and plan (1) Anemia Current Visit: No Status: Acute Assessment and plan: She follows with hematology and received 2 units PRBC 06/15/16 plus IV iron. 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 Colonoscopy with internal hemorrhoids and mucosal ulcerations treated with APC and clips. Biopsies show focally ulcerated mucosa and mild chronic inflammation. Continue to monitor CBC and transfuse PRBC as indicated. Hgb decreased to 7.6 from 8.4. Recommend 2 units PRBC today. Rectal exam negative for blood. With no rectal bleeding, colonoscopy will likely not be beneficial. Qualifiers: Anemia type: iron deficiency Iron deficiency anemia type: unspecified iron deficiency Qualified Code(s): D50.9 - Iron deficiency anemia, unspecified (2) Rectal bleed Current Visit: No Status: Acute Assessment and plan: Hgb decreased form 8.4 yesterday to 7.6 this AM. No hematochezia or melena. No blood noted on rectal exam. (3) COPD (chronic obstructive pulmonary disease) Current Visit: No Status: Chronic Qualifiers: COPD type: unspecified COPD Qualified Code(s): J44.9 - Chronic obstructive pulmonary disease, unspecified - Time Spent With Patient Total time spent is greater than 50% in coordination of care (as documented) at patient's floor/unit and/or counseling patient: - Subjective Interval history: Pt reports feeling well and is without acute complaint at this time. She denies any melena or hematochezia. - Constitutional Vitals: Temp Pulse Resp BP Pulse Ox 97.6 F 59 16 166/69 95 06/30/16 07:17 06/30/16 07:17 06/30/16 07:48 06/30/16 07:17 06/30/16 07:48 General appearance: Present: cooperative, A&O X 3, no acute distress, answers questions appropriately - Head Head exam: Present: atraumatic, normocephalic - Eye Eye exam: Present: normal appearance, sclera anicteric - ENT ENT exam: Present: mucous membranes moist - Neck Neck exam general surgery: Present: normal inspection, trachea midline - Respiratory Respiratory exam: Present: CTAB. Absent: rales, rhonchi - Cardiovascular Cardiovascular exam: Present: RRR, +S1, +S2 - GI/Abdominal GI/Abdominal exam: Present: soft, no peritoneal signs. Absent: distended, firm , guarding, tenderness - Rectal Rectal exam: Present: normal inspection, normal rectal tone. Absent: black stool, bloody stool, tenderness - Extremities Exam Extremities exam: Present: warm - Neurological Exam Neurological exam: Present: no focal deficits - Psychiatric Psychiatric exam: Present: normal affect, normal mood - Skin Skin exam: Present: dry, intact, normal color, warm Results - Labs CBC & Chem 7: 06/30/16 03:45 06/30/16 03:45 Labs: Last Result Calcium 8.0 mg/dL (8.6-10.8) L 06/30/16 03:45 Iron 32 mcg/dL (50-170) L 06/23/16 04:13 % Saturation 8 % (15-50) L 06/23/16 04:13 Transferrin 280 mg/dL (180-382) 06/23/16 04:13 Ferritin 23 ng/ml (5-204) 06/23/16 04:13 Troponin I 0.01 ng/mL (0-0.03) 06/22/16 23:13 Triglycerides 43 mg/dL (< 150) 06/23/16 04:13 Entire Visit Hgb 7.6 g/dL (11.5-15.4) L 06/30/16 03:45 Hct 23.3 % (35.3-44.9) L 06/30/16 03:45 PT 10.8 Seconds (9.4-12.1) 06/29/16 03:35 Ferritin 23 ng/ml (5-204) 06/23/16 04:13 Total Bilirubin 0.7 mg/dL (0.2-1.2) 06/22/16 23:13 AST 18 Units/L (5-34) 06/22/16 23:13 ALT 19 Units/L (0-55) 06/22/16 23:13 - ABG ABG results: PT/INR, D-dimer PT 10.8 Seconds (9.4-12.1) 06/29/16 03:35 - VTE Documentation of Mechanical Device: Intermittent pneumatic compression device Consult Discharge Plan - Plan Referrals: Vamsi Corona DO [Partnered Physician] - 07/06/16 11:00 am Garcia,Therese Mccormick CNP [Primary Care Provider] - 07/06/16 3:30 pm <Prudence Escobedo - Last Filed: 06/30/16 14:52> Date of Encounter: 06/30/16 Time of Encounter: 14:00 - Time Spent With Patient Total time spent is greater than 50% in coordination of care (as documented) at patient's floor/unit and/or counseling patient: - Constitutional Vitals: Temp Pulse Resp BP Pulse Ox 97.7 F 65 16 148/83 92 L 06/30/16 11:56 06/30/16 11:56 06/30/16 11:56 06/30/16 11:56 06/30/16 11:56 Results - Labs CBC & Chem 7: 06/30/16 03:45 06/30/16 03:45 Labs: Last Result Calcium 8.0 mg/dL (8.6-10.8) L 06/30/16 03:45 Iron 32 mcg/dL (50-170) L 06/23/16 04:13 % Saturation 8 % (15-50) L 06/23/16 04:13 Transferrin 280 mg/dL (180-382) 06/23/16 04:13 Ferritin 23 ng/ml (5-204) 06/23/16 04:13 Troponin I 0.01 ng/mL (0-0.03) 06/22/16 23:13 Triglycerides 43 mg/dL (< 150) 06/23/16 04:13 Entire Visit Hgb 7.6 g/dL (11.5-15.4) L 06/30/16 03:45 Hct 23.3 % (35.3-44.9) L 06/30/16 03:45 PT 10.8 Seconds (9.4-12.1) 06/29/16 03:35 Ferritin 23 ng/ml (5-204) 06/23/16 04:13 Total Bilirubin 0.7 mg/dL (0.2-1.2) 06/22/16 23:13 AST 18 Units/L (5-34) 06/22/16 23:13 ALT 19 Units/L (0-55) 06/22/16 23:13 - ABG ABG results: PT/INR, D-dimer PT 10.8 Seconds (9.4-12.1) 06/29/16 03:35 - Attending Attestation I examined this patient and my medical decision-making was reviewed with the SHOP LABORER/PA/Advanced Practice Nurse/Resident Physician. I agree with the documented findings, disposition and treatment plan as described except to the extent set forth below.
[2016-06-30] MEDS ORDERED: 0.9 % Sodium Chloride 250 ML ONE ×2 (12:17→17:09)
--- NOTE | 2016-06-30 14:00 | Oncology Inp Consult Note ---
Date of Encounter: 06/30/16 Time of Encounter: 13:46 Assessment and Plan (1) Acute exacerbation of chronic obstructive airways disease Status: Acute Assessment and plan: Getting better on IV antibiotics and steroids currently prednisone 20 mg a day. Also inhalers and aerosol treatments (2) Anemia Status: Acute Assessment and plan: Multifactorial. Persistent iron deficiency aggravated by GI bleed. Also chronic kidney disease stage IV is playing a role. She was getting Aranesp 200 g subcutaneous injections as an outpatient Her B12 folate level TSH normal Qualifiers: Anemia type: iron deficiency Iron deficiency anemia type: unspecified iron deficiency Qualified Code(s): D50.9 - Iron deficiency anemia, unspecified (3) GI bleed Status: Acute Assessment and plan: Lower GI bleed likely from bleeding AVM. Dr. Escobedo did colonoscopy as mentioned above he is following History of GIST. May need EGD which can be done as an outpatient Qualifiers: Qualified Code(s): K92.2 - Gastrointestinal hemorrhage, unspecified - Data of Consult Requesting Physician: Chacorta Adamson Primary Care Provider: Therese Garcia CNP - Consult Narrative Reason for consult: Anemia with GI blood loss History of present illness: Ms. Parks is a 75 year old female mitigated with exacerbation of COPD. Also lower extremity edema improved on admission and she had fresh bleeding per rectum with passing clots. Dr. Escobedo did colonoscopy which showed bleeding spots which could be AVM followed by argon photocoagulation of bleeding spots . Hemoglobin improved with the 2 units of packed RBC transfusion in 06/27/2016 and hemoglobin had dropped again to 7.4. [address] Banda and may repeat colonoscopy on 07/01/2016 She also has shortness of breath Hematological history She was admitted twice within the last month with a left upper and lower extremity weakness which was transient. She was given TPA on 05/18/2016 her symptoms improved. He got readmitted with a left-sided weakness from the CP office. And as of TPA administered today after evaluation a telemetry stroke on 05/29/2015 12 hours later she had fresh GI bleed She had another episode on 06/12/2016. History was obtained from the daughter. According to her, the patient did not tell her about any rectal bleeding between those 2 episodes She continued to be very anemic hemoglobin 8 and she does have exertional shortness of breath. Also orthostatic symptoms She has chronic anemia aggravated by chronic kidney disease stage 3-4 but also she has persistent iron deficiency and had IV iron in the past. Her iron deficiency is aggravated by GI bleed Currently on Rocephin 1 g IV daily Right breast DCIS, Tis, N0 M0 Mammogram August 2015 category 0 with microcalcification right breast upper outer quadrant. 09/10/2015, she had biopsy completed with pathology indicating DCIS intermediate grade, solid, cribriform type. On 10/12/2015 she had a right upper quadrant lumpectomy by Dr. Chaney. Pathology indicated multifocal DCIS with a close margin of 1 mm. The sentinel node was negative. It was ER and DE positive. On 11/17/2015, she had a simple right mastectomy that showed squamous metaplasia and the cavity no residual disease. Simple mastectomy 11/17/2015 showed squamous metaplasia in the cavity. No residual disease Secondary to having a mastectomy there was no need for radiation. On 12/02/2015, she was started on letrozole 2.5 mg by mouth daily for projected 5 years. Letrozole stopped 06/14/2016 because of her recurrent TIA hypoxia and bleeding Incidental GIST On July 2015 she had an EGD. 2 polyps that were resected showed GIST with a CD34 and CD 117 positive, mitosis rare per high-powered field. Size was 4 mm. NCCN guidelines were reviewed and the recommendation was to follow with the EGD. Family history: Patient reports that her half-sister had breast cancer and her mother had uterine cancer. Father stroke, also family history of hypertension and diabetes. Psychosocial factors: She currently lives with her daughter who is very active in her care and is trying very hard to help her mother eat better, exercising more and get better control of diabetes and hopefully stabilize kidney disease. She is a nondrinker. Smoking Status: Former smoker Smokeless Tobacco Status: No Alcohol use PMH: none Drug use: none Past Med Surg Social Fam HX - Past Medical History Medical history: CHF, COPD, CVA, diabetes, renal disease Psychiatric history: anxiety, depression - Past Surgical History Surgical History: cholecystectomy, hysterectomy - Social History Smoking Status: Former smoker Smokeless Tobacco Status: No Alcohol use: none Drug use: none - Family History Father Living Status: Hx Family Cardiac Disorders: No Hx Family Respiratory Disorders: No Hx Family Cancer: Yes Hx Family GI Disorders: Yes Hx Family Endocrine Disorder: Yes Hx Family Neuromuscular Disorders: No Hx Family Neurologic Disorders: No Hx Family HEENT Disorders: No Hx Family Autoimmune Disorders: No Medications and Allergies Cetirizine HCl [Zyrtec] 10 mg PO HS 04/17/15 [History] Cholecalciferol (Vitamin D3) [Vitamin D3] 2,000 unit PO DAILY 04/17/15 [History] Glimepiride 4 mg PO QAM 04/17/15 [History] Insulin ASPART [NovoLOG] 2 - 10 unit SQ TIDWM 04/17/15 [History] Insulin Glargine,Hum.rec.anlog [Lantus Solostar] 10 unit SQ QAM 04/17/15 [ History] Promethazine [Phenergan] 12.5 - 25 mg PO Q6-8H PRN 04/17/15 [History] Carvedilol [Coreg] 6.25 mg PO BIDWM 06/08/15 [History] Donepezil HCl [Donepezil HCl Odt] 5 mg PO HS 06/08/15 [History] Acetaminophen with Codeine [Acetaminophen-Cod #3 Tablet] 1 tab PO Q4H PRN [History] Albuterol Sulfate [Albuterol Inhaler] 2 puff IH Q6H PRN 10/12/15 [History] Furosemide [Lasix] 20 mg PO DAILY 10/12/15 [History] Insulin Glargine,Hum.rec.anlog [Lantus Solostar] 8 unit SQ QPM 10/12/15 [History ] Omeprazole [PriLOSEC] 20 mg PO DAILY 10/12/15 [History] Oxycodone HCl/Acetaminophen [Percocet 5-325 mg Tablet] 1 each PO Q4H PRN [History] Amlodipine [Norvasc] 10 mg PO DAILY 01/26/16 [History] Ascorbate Calcium [Vitamin C] 500 mg PO DAILY 06/14/16 [History] Atorvastatin [Lipitor] 10 mg PO HS 06/14/16 [History] Calcitriol [Rocaltrol] 0.25 mcg PO DAILY 06/14/16 [History] CloNIDine HCl [Kapvay] 0.1 mg PO TID 06/14/16 [History] Clopidogrel [Plavix] 75 mg PO DAILY 06/14/16 [History] Docusate [Colace] 100 mg PO DAILY PRN 06/14/16 [History] Guaifenesin [Mucinex] 600 mg PO Q12H PRN 06/14/16 [History] Linagliptin [Tradjenta] 5 mg PO DAILY 06/14/16 [History] Alendronate Sodium [Fosamax] 70 mg PO QWEEK 06/22/16 [History] Budesonide/Formoterol 80/4.5 [Symbicort 80/4.5] 2 puff IH Q12H 06/22/16 [ History] Calcium Carbonate [Calcium] 600 mg PO BID 06/22/16 [History] Allergies aspirin [ASA] Allergy (Verified 05/18/16 13:40) Swelling of Lip/Tongue/Throat NSAIDS (Non-Steroidal Anti-Inflamma Allergy (Verified 05/18/16 13:40) Swelling of Lip/Tongue/Throat Penicillins Allergy (Verified 05/18/16 13:40) Hives iron Adverse Reaction (Verified 05/18/16 13:40) Unknown Push only Review of systems: Fatigue, shortness of breath. She had lower activity edema and admission which almost resolved No major fever Oncology - Exam - Constitutional Vitals: Temp Pulse Resp BP Pulse Ox 97.7 F 65 16 148/83 92 L 06/30/16 11:56 06/30/16 11:56 06/30/16 11:56 06/30/16 11:56 06/30/16 11:56 Exam: GENERAL: Alert and oriented, well appearing. Mental Status: Affect appropriate for circumstances HEENT: Sclerae anicteric. No mucositis or thrush. No other oral or pharyngeal lesions or erythema. Skin: No rashes or petechiae. No evidence of skin malignancy Lymph nodes: No cervical, supraclavicular, axillary, or inguinal adenopathy. Lungs: Bilateral mild diffuse wheezing Cardiovascular: Regular rate and rhythm. No gallops, murmurs, or rubs. Abdomen: Soft, nontender; no organomegaly or masses palpable. Extremities: Trace edema. No calf swelling or tenderness. No joint deformity. Neurologic: Alert, cranial nerves II-XII intact; normal gait; no focal weakness or sensory abnormalities. Oncology - Results - Labs Labs: Short CBC 06/29/16 06/30/16 Range/Units 14:30 03:45 WBC 7.1 (4.3-11.1) K/mcL Hgb 8.4 L 7.6 L (11.5-15.4) g/dL Hct 26.0 L 23.3 L (35.3-44.9) % Plt Count 301 (140-400) K/mcL Neutrophils # 5.3 (1.6-8.9) K/mcL BMP 06/30/16 03:45 Sodium 135 L Potassium 4.1 Chloride 102 Carbon Dioxide 25 BUN 65 H D Creatinine 1.71 H Glucose 157 H Calcium 8.0 L Consult Discharge Plan - Plan Referrals: Vamsi Corona DO [Partnered Physician] - 07/06/16 11:00 am Jose,Therese Mccormick CNP [Primary Care Provider] - 07/06/16 3:30 pm
[2016-06-30] MEDS ORDERED: SODIUM CHLORIDE/NAHCO3/KCL/PEG 4,000 ML SOLN.RECON PO ONE (14:13)
[2016-06-30] MEDS: Loratadine 10 MG TABLET PO SCH (20:11)
[2016-07-01] MEDS: Ipratropium/Albuterol Neb 3 ML IH SCH ×5 (00:18→15:45)
[2016-07-01 04:31] LABS: Basophils % 0.1 %; Eosinophils # 0.1 K/mcL (0.0-0.6); Eosinophils % 0.7 %; Hematocrit 30.4 % (35.3-44.9); Immature Granulocytes % 2.4 % (0-4); Lymphocytes # 1.3 K/mcL (0.6-4.6); Lymphocytes % 15.7 %; Mean Corpuscular HGB Conc 32.9 g/dL (31.6-35.5); Mean Corpuscular Hemoglobin 27.5 pg (28.0-33.3); Mean Corpuscular Volume 83.7 fL (83.0-100.0); Mean Platelet Volume 10.2 fL (9.4-12.4); Monocytes # 0.7 K/mcL (0.0-1.3); Monocytes % 8.2 %; Platelet Count 304 K/mcL (140-400); Red Blood Count 3.63 M/mcL (3.82-4.97); Red Cell Distribution Width 14.7 % (11.5-14.5); Segmented Neutrophils % 72.9 %
[2016-07-01 04:50] LABS: Calcium 8.2 mg/dL (8.6-10.8); Potassium 4.1 mEq/L (3.5-4.5)
[2016-07-01] MEDS: Pantoprazole 40 MG VIAL IVP SCH (05:58)
[2016-07-01] MEDS: *HR* OxyCODONE Immed Rel 5 MG TABLET PO PRN (06:29)
[2016-07-01] MEDS: Budesonide Neb 0.5 MG/2 ML IH SCH (08:00)
[2016-07-01] MEDS: Insulin LISPRO 300 UNITS/3 ML VIAL SQ SCH ×3 (08:28→12:20)
[2016-07-01] MEDS: Ascorbic Acid 500 MG TABLET PO SCH (08:39)
[2016-07-01] MEDS: Furosemide 20 MG TABLET PO SCH (08:39)
[2016-07-01] MEDS: cloNIDine HCl 0.1 MG TABLET PO SCH ×2 (08:39→15:38)
[2016-07-01] MEDS: predniSONE 20 MG TABLET PO SCH (08:39)
[2016-07-01] MEDS: amLODIPine 5 MG TABLET PO SCH (08:39)
[2016-07-01] MEDS: Insulin DETEMIR 100 UNIT/ML X5UNITS SQ SCH (08:43)
--- NOTE | 2016-07-01 10:05 | Internal Med Progress Note ---
<Charlie Zurita - Last Filed: 07/01/16 10:02> Date of Encounter: 07/01/16 Time of Encounter: 09:00 - Assessment and plan (1) Chronic blood loss anemia Current Visit: Yes Status: Chronic Assessment and plan: Hemoglobin had decreased to 7.6 yesterday and 2 more units transfused Hemoglobin increased to 10.0 this morning Patient being followed by oncology for anemia due to rectal bleeding. S/P argon plasma last monday. Received 1 unit on 06/27/16. Patient received 2u RBCs 06/15/16 at [facility]. Renal function improved somewhat this morning (2) Acute exacerbation of chronic obstructive airways disease Current Visit: Yes Status: Acute Assessment and plan: Acute on chronic hypoxic respiratory failure secondary to acute COPD exacerbation from acute viral bronchitis (human metapneumovirus) with possible bacterial bronchitis overinfection Clinically improved Currently on Rocephin Prednisone 20 mg daily Duonebs, albuterol nebs High risk due to the respiratory failure and rectal bleed (3) Hypertension Current Visit: Yes Status: Chronic Assessment and plan: Blood pressure has been stable Qualifiers: Hypertension type: essential hypertension Qualified Code(s): I10 - Essential (primary) hypertension (4) History of CVA (cerebrovascular accident) Current Visit: Yes Status: Resolved Assessment and plan: Continue to hold Plavix due to bleed (5) Rectal bleed Current Visit: No Status: Acute Assessment and plan: Status post colonoscopy Appreciate GI recommendations (6) DVT prophylaxis Current Visit: Yes Status: Acute Assessment and plan: Continue IPCDs - Subjective Interval history: Ms. Parks was seen and examined at bedside. She was sitting up in no apparent distress. She states her breathing is good and denies any new complaints - Constitutional Vitals: Temp Pulse Resp BP Pulse Ox 97.7 F 63 16 157/79 97 07/01/16 07:03 07/01/16 07:03 07/01/16 08:00 07/01/16 07:03 07/01/16 08:49 General appearance: Present: cooperative, A&O X 3, pleasant, obese, answers questions appropriately - Head Head exam: Present: atraumatic, normocephalic - Eye Eye exam: Present: PERRL, conjuntiva pink, sclera anicteric Pupils: Present: PERRL - Neck Neck exam general surgery: Present: supple, trachea midline. Absent: lymphadenopathy - Respiratory Respiratory exam: Present: CTAB. Absent: accessory muscle use, rales, rhonchi, wheezes - Cardiovascular Cardiovascular exam: Present: RRR, +S1, +S2. Absent: diastolic murmur, gallop, rubs, systolic murmur - GI/Abdominal GI/Abdominal exam: Present: normal bowel sounds, soft, no peritoneal signs. Absent: distended, tenderness - Extremities Exam Extremities exam: Present: pedal edema, warm, radial pulses palpable and symetrical. Absent: calf tenderness, cyanotic Additional comments: Mild pedal edema - Neurological Exam Neurological exam: Present: CN II-XII intact, oriented X3, no focal deficits. Absent: pronater drift, facial droop, speech deficit - Skin Skin exam: Present: dry, intact Internal Medicine: Result - Labs CBC & Chem 7: 07/01/16 04:00 07/01/16 04:00 Labs: Short CBC 07/01/16 Range/Units 04:00 WBC 8.3 (4.3-11.1) K/mcL Hgb 10.0 L D (11.5-15.4) g/dL Hct 30.4 L (35.3-44.9) % Plt Count 304 (140-400) K/mcL Neutrophils # 6.0 (1.6-8.9) K/mcL BMP 07/01/16 04:00 Sodium 138 Potassium 4.1 Chloride 103 Carbon Dioxide 28 BUN 46 H D Creatinine 1.56 H Glucose 97 Calcium 8.2 L - ABG Interpretation ABG results: PT/INR, D-dimer PT 10.8 Seconds (9.4-12.1) 06/29/16 03:35 - VTE Documentation of Mechanical Device: Intermittent pneumatic compression device Consult Discharge Plan - Plan Referrals: Vamsi Corona DO [Partnered Physician] - 07/06/16 11:00 am Prudence Escobedo MD [Partnered Physician] - Prescriptions: OxyCODONE/APAP 5/325 [Percocet 5/325 MG] 1 each PO Q4HR PRN #30 tablet PRN Reason: Pain PredniSONE 10 mg PO DAILY #5 tablet <Chacorta Adamson - Last Filed: 07/01/16 15:59> Date of Encounter: 07/01/16 - Assessment and plan (1) Chronic blood loss anemia Current Visit: Yes Status: Chronic (2) Acute exacerbation of chronic obstructive airways disease Current Visit: Yes Status: Acute (3) Hypertension Current Visit: Yes Status: Chronic Qualifiers: Hypertension type: essential hypertension Qualified Code(s): I10 - Essential (primary) hypertension (4) History of CVA (cerebrovascular accident) Current Visit: Yes Status: Resolved (5) Rectal bleed Current Visit: No Status: Acute - Constitutional Vitals: Temp Pulse Resp BP Pulse Ox 98.0 F 58 16 158/84 93 L 07/01/16 10:45 07/01/16 10:45 07/01/16 10:45 07/01/16 10:45 07/01/16 10:45 Internal Medicine: Result - Labs CBC & Chem 7: 07/01/16 04:00 07/01/16 04:00 Labs: Short CBC 07/01/16 Range/Units 04:00 WBC 8.3 (4.3-11.1) K/mcL Hgb 10.0 L D (11.5-15.4) g/dL Hct 30.4 L (35.3-44.9) % Plt Count 304 (140-400) K/mcL Neutrophils # 6.0 (1.6-8.9) K/mcL BMP 07/01/16 04:00 Sodium 138 Potassium 4.1 Chloride 103 Carbon Dioxide 28 BUN 46 H D Creatinine 1.56 H Glucose 97 Calcium 8.2 L - ABG Interpretation ABG results: PT/INR, D-dimer PT 10.8 Seconds (9.4-12.1) 06/29/16 03:35 - Attending Attestation I examined this patient and my medical decision-making was reviewed with the FERTILIZER LOADER/PA/Advanced Practice Nurse/Resident Physician. I agree with the documented findings, disposition and treatment plan as described except to the extent set forth below. stable for D/C today. D/W patient.
[2016-07-01 10:46] VITALS: BP 158/84
--- NOTE | 2016-07-01 12:01 | Gastroenterology Progress Note ---
<Turner Carcamo - Last Filed: 07/01/16 11:59> Date of Encounter: 07/01/16 Time of Encounter: 10:40 - Assessment and plan (1) Anemia Current Visit: No Status: Acute Assessment and plan: She follows with hematology and received 2 units PRBC 06/15/16 plus IV iron. 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 Colonoscopy with internal hemorrhoids and mucosal ulcerations treated with APC and clips. Biopsies show focally ulcerated mucosa and mild chronic inflammation. Continue to monitor CBC and transfuse PRBC as indicated. Hgb 10 today after receiving 2 units PRBC yesterday. Rectal exam negative for blood. With no rectal bleeding, colonoscopy will likely not be beneficial. Recommend holding Plavix for 2 weeks. Qualifiers: Anemia type: iron deficiency Iron deficiency anemia type: unspecified iron deficiency Qualified Code(s): D50.9 - Iron deficiency anemia, unspecified (2) Rectal bleed Current Visit: No Status: Acute Assessment and plan: Hgb 10 today after receiving 2 units PRBC yesterday. Rectal exam negative for blood. With no rectal bleeding, colonoscopy will likely not be beneficial. Recommend holding Plavix for 2 weeks. (3) COPD (chronic obstructive pulmonary disease) Current Visit: No Status: Chronic Qualifiers: COPD type: unspecified COPD Qualified Code(s): J44.9 - Chronic obstructive pulmonary disease, unspecified - Time Spent With Patient Total time spent is greater than 50% in coordination of care (as documented) at patient's floor/unit and/or counseling patient: - Subjective Interval history: The patient is sitting up in bed, and states she is feeling well. She denies abdominal pain. No melena or hematochezia. - Constitutional Vitals: Temp Pulse Resp BP Pulse Ox 98.0 F 58 16 158/84 93 L 07/01/16 10:45 07/01/16 10:45 07/01/16 10:45 07/01/16 10:45 07/01/16 10:45 General appearance: Present: cooperative, A&O X 3, no acute distress, answers questions appropriately - Head Head exam: Present: atraumatic, normocephalic - Eye Eye exam: Present: normal appearance, sclera anicteric - ENT ENT exam: Present: mucous membranes moist - Neck Neck exam general surgery: Present: normal inspection, trachea midline - Respiratory Respiratory exam: Present: CTAB. Absent: rales, rhonchi - Cardiovascular Cardiovascular exam: Present: RRR, +S1, +S2 - GI/Abdominal GI/Abdominal exam: Present: soft, no peritoneal signs. Absent: distended, firm , guarding, tenderness - Rectal Rectal exam: Present: deferred - Extremities Exam Extremities exam: Present: warm - Neurological Exam Neurological exam: Present: no focal deficits - Psychiatric Psychiatric exam: Present: normal affect, normal mood - Skin Skin exam: Present: dry, intact, normal color, warm Results - Labs CBC & Chem 7: 07/01/16 04:00 07/01/16 04:00 Labs: Last Result Calcium 8.2 mg/dL (8.6-10.8) L 07/01/16 04:00 Iron 32 mcg/dL (50-170) L 06/23/16 04:13 % Saturation 8 % (15-50) L 06/23/16 04:13 Transferrin 280 mg/dL (180-382) 06/23/16 04:13 Ferritin 23 ng/ml (5-204) 06/23/16 04:13 Troponin I 0.01 ng/mL (0-0.03) 06/22/16 23:13 Triglycerides 43 mg/dL (< 150) 06/23/16 04:13 Entire Visit Hgb 10.0 g/dL (11.5-15.4) L D 07/01/16 04:00 Hct 30.4 % (35.3-44.9) L 07/01/16 04:00 PT 10.8 Seconds (9.4-12.1) 06/29/16 03:35 Ferritin 23 ng/ml (5-204) 06/23/16 04:13 Total Bilirubin 0.7 mg/dL (0.2-1.2) 06/22/16 23:13 AST 18 Units/L (5-34) 06/22/16 23:13 ALT 19 Units/L (0-55) 06/22/16 23:13 - ABG ABG results: PT/INR, D-dimer PT 10.8 Seconds (9.4-12.1) 06/29/16 03:35 - VTE Documentation of Mechanical Device: Intermittent pneumatic compression device Consult Discharge Plan - Plan Referrals: Vamsi Corona DO [Partnered Physician] - 07/06/16 11:00 am Prudence Escobedo MD [Partnered Physician] - Prescriptions: PredniSONE 10 mg PO DAILY #5 tablet <Prudence Escobedo - Last Filed: 07/01/16 14:30> Date of Encounter: 07/01/16 - Time Spent With Patient Total time spent is greater than 50% in coordination of care (as documented) at patient's floor/unit and/or counseling patient: - Constitutional Vitals: Temp Pulse Resp BP Pulse Ox 98.0 F 58 16 158/84 93 L 07/01/16 10:45 07/01/16 10:45 07/01/16 10:45 07/01/16 10:45 07/01/16 10:45 Results - Labs CBC & Chem 7: 07/01/16 04:00 07/01/16 04:00 Labs: Last Result Calcium 8.2 mg/dL (8.6-10.8) L 07/01/16 04:00 Iron 32 mcg/dL (50-170) L 06/23/16 04:13 % Saturation 8 % (15-50) L 06/23/16 04:13 Transferrin 280 mg/dL (180-382) 06/23/16 04:13 Ferritin 23 ng/ml (5-204) 06/23/16 04:13 Troponin I 0.01 ng/mL (0-0.03) 06/22/16 23:13 Triglycerides 43 mg/dL (< 150) 06/23/16 04:13 Entire Visit Hgb 10.0 g/dL (11.5-15.4) L D 07/01/16 04:00 Hct 30.4 % (35.3-44.9) L 07/01/16 04:00 PT 10.8 Seconds (9.4-12.1) 06/29/16 03:35 Ferritin 23 ng/ml (5-204) 06/23/16 04:13 Total Bilirubin 0.7 mg/dL (0.2-1.2) 06/22/16 23:13 AST 18 Units/L (5-34) 06/22/16 23:13 ALT 19 Units/L (0-55) 06/22/16 23:13 - ABG ABG results: PT/INR, D-dimer PT 10.8 Seconds (9.4-12.1) 06/29/16 03:35
--- NOTE | 2016-07-01 13:55 | Discharge Summary ---
<YudithCharlie Turner - Last Filed: 07/01/16 13:41> Date of Encounter: 07/01/16 Time of Encounter: 13:41 - Discharge Diagnosis (1) Chronic blood loss anemia Priority: Primary Status: Chronic (2) Acute exacerbation of chronic obstructive airways disease Priority: Primary Status: Acute (3) Hypertension Priority: Secondary Status: Chronic Qualifiers: Hypertension type: essential hypertension Qualified Code(s): I10 - Essential (primary) hypertension (4) History of CVA (cerebrovascular accident) Priority: Secondary Status: Resolved (5) Rectal bleed Priority: Secondary Status: Acute (6) DVT prophylaxis Priority: Secondary Status: Acute - Discharge Medications Prescriptions: OxyCODONE/APAP 5/325 [Percocet 5/325 MG] 1 each PO Q4HR PRN #30 tablet PRN Reason: Pain PredniSONE 10 mg PO DAILY #5 tablet Home Medications: Cetirizine HCl [Zyrtec] 10 mg PO HS 04/17/15 [History] Cholecalciferol (Vitamin D3) [Vitamin D3] 2,000 unit PO DAILY 04/17/15 [History] Glimepiride 4 mg PO QAM 04/17/15 [History] Insulin ASPART [NovoLOG] 2 - 10 unit SQ TIDWM 04/17/15 [History] Insulin Glargine,Hum.rec.anlog [Lantus Solostar] 10 unit SQ QAM 04/17/15 [ History] Promethazine [Phenergan] 12.5 - 25 mg PO Q6-8H PRN 04/17/15 [History] Carvedilol [Coreg] 6.25 mg PO BIDWM 06/08/15 [History] Donepezil HCl [Donepezil HCl Odt] 5 mg PO HS 06/08/15 [History] Acetaminophen with Codeine [Acetaminophen-Cod #3 Tablet] 1 tab PO Q4H PRN [History] Albuterol Sulfate [Albuterol Inhaler] 2 puff IH Q6H PRN 10/12/15 [History] Furosemide [Lasix] 20 mg PO DAILY 10/12/15 [History] Insulin Glargine,Hum.rec.anlog [Lantus Solostar] 8 unit SQ QPM 10/12/15 [History ] Omeprazole [PriLOSEC] 20 mg PO DAILY 10/12/15 [History] Oxycodone HCl/Acetaminophen [Percocet 5-325 mg Tablet] 1 each PO Q4H PRN [History] Amlodipine [Norvasc] 10 mg PO DAILY 01/26/16 [History] Ascorbate Calcium [Vitamin C] 500 mg PO DAILY 06/14/16 [History] Atorvastatin [Lipitor] 10 mg PO HS 06/14/16 [History] Calcitriol [Rocaltrol] 0.25 mcg PO DAILY 06/14/16 [History] CloNIDine HCl [Kapvay] 0.1 mg PO TID 06/14/16 [History] Docusate [Colace] 100 mg PO DAILY PRN 06/14/16 [History] Guaifenesin [Mucinex] 600 mg PO Q12H PRN 06/14/16 [History] Linagliptin [Tradjenta] 5 mg PO DAILY 06/14/16 [History] Alendronate Sodium [Fosamax] 70 mg PO QWEEK 06/22/16 [History] Budesonide/Formoterol 80/4.5 [Symbicort 80/4.5] 2 puff IH Q12H 06/22/16 [ History] Calcium Carbonate [Calcium] 600 mg PO BID 06/22/16 [History] OxyCODONE/APAP 5/325 [Percocet 5/325 MG] 1 each PO Q4HR PRN #30 tablet 07/01/16 [Rx] PredniSONE 10 mg PO DAILY #5 tablet 07/01/16 [Rx] Allergies/Adverse Reactions: Allergies aspirin [ASA] Allergy (Verified 05/18/16 13:40) Swelling of Lip/Tongue/Throat NSAIDS (Non-Steroidal Anti-Inflamma Allergy (Verified 05/18/16 13:40) Swelling of Lip/Tongue/Throat Penicillins Allergy (Verified 05/18/16 13:40) Hives iron Adverse Reaction (Verified 05/18/16 13:40) Unknown Push only Date of admission: 06/25/16 09:01 Primary care physician: Therese Garcia CNP Consults: 06/27/16 16:40 Consult to Invasive Line Access Team [CONS] Routine Reason for Consult: limited access Line Type: EPIV Discharging clinician: Charlie Turner Yudith Anticipated date of discharge: 07/01/16 - Patient Status Disposition: Home, Self-Care Condition: Fair Functional capacity at discharge: independent ambulation Overall status at discharge: patient is progressing back to baseline - Discharge Instructions Follow Up With: Vamsi Corona DO [Partnered Physician] - 07/06/16 11:00 am Prudence Escobedo MD [Partnered Physician] - - Diet and Activity Activity: as per physical therapy Diet: advance to your usual diet Hospital course: Ms. Parks is a 75 year old female who presented to the emergency department for shortness of breath and was found to have an acute exacerbation of COPD. Which stabilized however during her hospitalization she developed anemia. She has a history of breast cancer with right sided mastectomy last year without chemotherapy or radiation and she also has history of GIST. Recent past medical history is also significant for 2 ischemic strokes within the past couple of months, treated with TPA and also started on Plavix. During her hospital stay she developed bright red blood per rectum and also had some melena. Colonoscopy performed here in the hospital showed internal hemorrhoids , arteriovenous malformations, and mucosal ulcers which were treated with cautery. She does have anemia of chronic disease with C Reina on top of that but her hemoglobin dropped during her hospitalization. She received several units of PRBCs and her hemoglobin stabilized at 10.0. On the anticipated date of discharge, 07/01/16 as well as the day prior digital rectal exam were performed and negative for blood. GI recommends upper endoscopy which can be performed as outpatient. GI would like her to follow-up with their office in the next week or 2 - Time Spent with Patient Total time spent providing and/or coordinating discharge services: Greater than 30 minutes - Constitutional Vitals: Temp Pulse Resp BP Pulse Ox 98.0 F 58 16 158/84 93 L 07/01/16 10:45 07/01/16 10:45 07/01/16 10:45 07/01/16 10:45 07/01/16 10:45 General appearance: Present: cooperative, A&O X 3, pleasant, obese, answers questions appropriately - Head Head exam: Present: atraumatic, normocephalic - Eye Eye exam: Present: PERRL, conjuntiva pink, sclera anicteric Pupils: Present: PERRL - Neck Neck exam general surgery: Present: supple, trachea midline. Absent: lymphadenopathy - Respiratory Respiratory exam: Present: CTAB. Absent: accessory muscle use, rales, rhonchi, wheezes - Cardiovascular Cardiovascular exam: Present: RRR, +S1, +S2. Absent: diastolic murmur, gallop, rubs, systolic murmur - GI/Abdominal GI/Abdominal exam: Present: normal bowel sounds, soft, no peritoneal signs. Absent: distended, tenderness - Extremities Exam Extremities exam: Present: warm, radial pulses palpable and symetrical. Absent : calf tenderness, cyanotic, pedal edema - Neurological Exam Neurological exam: Present: CN II-XII intact, oriented X3, no focal deficits. Absent: pronater drift, facial droop, speech deficit - Skin Skin exam: Present: dry, intact - VTE Documentation of Mechanical Device: Intermittent pneumatic compression device <Chacorta Adamson - Last Filed: 07/01/16 15:56> Date of Encounter: 07/01/16 - Discharge Diagnosis (1) Chronic blood loss anemia Status: Chronic (2) Acute exacerbation of chronic obstructive airways disease Status: Acute (3) Hypertension Status: Chronic Qualifiers: Hypertension type: essential hypertension Qualified Code(s): I10 - Essential (primary) hypertension (4) History of CVA (cerebrovascular accident) Status: Resolved (5) Rectal bleed Status: Acute Date of admission: 06/25/16 09:01 Primary care physician: Therese Garcia CNP Consults: 06/27/16 16:40 Consult to Invasive Line Access Team [CONS] Routine Reason for Consult: limited access Line Type: EPIV Hospital course: Ms. Parks is a 75 year old female - Time Spent with Patient Total time spent providing and/or coordinating discharge services: - Constitutional Vitals: Temp Pulse Resp BP Pulse Ox 98.0 F 58 16 158/84 93 L 07/01/16 10:45 07/01/16 10:45 07/01/16 10:45 07/01/16 10:45 07/01/16 10:45 - Attending Attestation I examined this patient and my medical decision-making was reviewed with the AUCTION CLERK/PA/Advanced Practice Nurse/Resident Physician. I agree with the documented findings, disposition and treatment plan as described except to the extent set forth below. Stable for discharge, hb stable after 2 units last night. GI eval noted. D/C to rehab today. Taper down steroids. Hold plavix for 2 weeks. Follow up with GI and oncology. Renal function stable. D/W patient.
--- NOTE | 2016-07-01 15:23 | Physician Discharge Referral ---
<YudithCharlieandi Tompkins - Last Filed: 07/01/16 15:20> [facility] Referral Info Transfer To: ECF Provider in Charge after Transfer: PCP Institutional Level of Care: Skilled - Diagnosis (1) Chronic blood loss anemia Priority: Primary Status: Chronic (2) Acute exacerbation of chronic obstructive airways disease Priority: Primary Status: Acute (3) Hypertension Priority: Secondary Status: Chronic (4) History of CVA (cerebrovascular accident) Priority: Secondary Status: Resolved (5) Rectal bleed Priority: Secondary Status: Acute (6) DVT prophylaxis Priority: Secondary Status: Acute - Transfer Medications Prescriptions: OxyCODONE/APAP 5/325 [Percocet 5/325 MG] 1 each PO Q4HR PRN #30 tablet PRN Reason: Pain PredniSONE 10 mg PO DAILY #5 tablet Home Medications: Cetirizine HCl [Zyrtec] 10 mg PO HS 04/17/15 [History] Cholecalciferol (Vitamin D3) [Vitamin D3] 2,000 unit PO DAILY 04/17/15 [History] Glimepiride 4 mg PO QAM 04/17/15 [History] Insulin ASPART [NovoLOG] 2 - 10 unit SQ TIDWM 04/17/15 [History] Insulin Glargine,Hum.rec.anlog [Lantus Solostar] 10 unit SQ QAM 04/17/15 [ History] Promethazine [Phenergan] 12.5 - 25 mg PO Q6-8H PRN 04/17/15 [History] Carvedilol [Coreg] 6.25 mg PO BIDWM 06/08/15 [History] Donepezil HCl [Donepezil HCl Odt] 5 mg PO HS 06/08/15 [History] Acetaminophen with Codeine [Acetaminophen-Cod #3 Tablet] 1 tab PO Q4H PRN [History] Albuterol Sulfate [Albuterol Inhaler] 2 puff IH Q6H PRN 10/12/15 [History] Furosemide [Lasix] 20 mg PO DAILY 10/12/15 [History] Insulin Glargine,Hum.rec.anlog [Lantus Solostar] 8 unit SQ QPM 10/12/15 [History ] Omeprazole [PriLOSEC] 20 mg PO DAILY 10/12/15 [History] Oxycodone HCl/Acetaminophen [Percocet 5-325 mg Tablet] 1 each PO Q4H PRN [History] Amlodipine [Norvasc] 10 mg PO DAILY 01/26/16 [History] Ascorbate Calcium [Vitamin C] 500 mg PO DAILY 06/14/16 [History] Atorvastatin [Lipitor] 10 mg PO HS 06/14/16 [History] Calcitriol [Rocaltrol] 0.25 mcg PO DAILY 06/14/16 [History] CloNIDine HCl [Kapvay] 0.1 mg PO TID 06/14/16 [History] Docusate [Colace] 100 mg PO DAILY PRN 06/14/16 [History] Guaifenesin [Mucinex] 600 mg PO Q12H PRN 06/14/16 [History] Linagliptin [Tradjenta] 5 mg PO DAILY 06/14/16 [History] Alendronate Sodium [Fosamax] 70 mg PO QWEEK 06/22/16 [History] Budesonide/Formoterol 80/4.5 [Symbicort 80/4.5] 2 puff IH Q12H 06/22/16 [ History] Calcium Carbonate [Calcium] 600 mg PO BID 06/22/16 [History] OxyCODONE/APAP 5/325 [Percocet 5/325 MG] 1 each PO Q4HR PRN #30 tablet 07/01/16 [Rx] PredniSONE 10 mg PO DAILY #5 tablet 07/01/16 [Rx] Allergies/Adverse Reactions: Allergies aspirin [ASA] Allergy (Verified 05/18/16 13:40) Swelling of Lip/Tongue/Throat NSAIDS (Non-Steroidal Anti-Inflamma Allergy (Verified 05/18/16 13:40) Swelling of Lip/Tongue/Throat Penicillins Allergy (Verified 05/18/16 13:40) Hives iron Adverse Reaction (Verified 05/18/16 13:40) Unknown Push only - Respiratory Orders Oxygen / L per min (2) Smoking Cessation: Smoking cessation has been advised. For more information, call the [facility] Tobacco Quit Line at 0-296-QHYL-NOW. - Lab Orders Lab Orders: CBC (follow up hemoglobin in 2-3 days) - Advance Directives Code Status: Full Code - Mobility Orders Ambulate - Rehabiliation Orders Rehab Potential: Fair Rehab Orders: Evaluation for Physical Therapy, Evaluation for Occupational Therapy - Diet Orders Regular CERTIFICATION: I certify that the transfer of the above named patient to an Extended Care Facility is necessary for the continuing treatment of the diagnosis listed. The above information is true and accurate reflection of patient's current condition. Confidential - Redisclosure prohibited without a patient's written consent. <SnowChacorta Ora - Last Filed: 07/01/16 15:57> - Diagnosis (1) Chronic blood loss anemia Status: Chronic (2) Acute exacerbation of chronic obstructive airways disease Status: Acute (3) Hypertension Status: Chronic (4) History of CVA (cerebrovascular accident) Status: Resolved (5) Rectal bleed Status: Acute - Respiratory Orders Smoking Cessation: Smoking cessation has been advised. For more information, call the [place] Tobacco Quit Line at 8-349-HMZHNOW. CERTIFICATION: I certify that the transfer of the above named patient to an Extended Care Facility is necessary for the continuing treatment of the diagnosis listed. The above information is true and accurate reflection of patient's current condition. Confidential - Redisclosure prohibited without a patient's written consent.
[2016-07-01] MEDS: *HR* OxyCODONE/APAP 5/325 TABLET PO PRN (15:38)
== END 2016-07-01 16:47 | DRG 245 ==
LOC: 3BNU 12:35 → EMEROO 12:35 → SUATTDRO 16:40 → 3BNU 17:35 → SUATTDRO 06-25 09:01
PROVIDERS: ADMIT Internal Medicine; ATTEND Internal Medicine

== ENCOUNTER 2016-07-27 12:22 | Inpatient (IN) ==
[2016-07-27] MEDS ORDERED: Ipratropium/Albuterol Neb 3 ML IH ONE (12:36)
[2016-07-27] MEDS ORDERED: Furosemide 40 MG/4 ML VIAL IVP ONE (12:37)
[2016-07-27] MEDS ORDERED: methylPREDNISolone 125 MG/2 ML VIAL IVP ONE (12:37)
--- NOTE | 2016-07-27 12:41 | Emergency Department Note ---
Disposition Clinical Impression: Acute exacerbation of chronic obstructive airways disease Pneumonia Qualifiers: Pneumonia type: due to unspecified organism Laterality: bilateral Lung location : unspecified part of lung Qualified Code(s): J18.9 - Pneumonia, unspecified organism Disposition: Admitted As Inpatient Condition: Fair Time of Disposition: 14:59 SOB HPI - General Chief Complaint: ED Shortness of Breath/Dyspnea Stated Complaint: resp distress Time Seen by Provider: 07/27/16 12:34 Source: EMS Limitations: no limitations Nursing Notes Reviewed: Yes Vital Signs Reviewed: Yes - History of Present Illness 76-year-old female with a history of renal insufficiency comes in with increasing shortness of breath. The patient is not on dialysis however does have COPD and CHF. Family states that is concern for pneumonia and will need a central line for fluids. Pt Subjective Complaint: shortness of breath, cough Onset (ago): Just [employer]ICK[employer] Context: recent illness Severity: none, moderate Consistency/Duration: constant Improves with: nothing Worsens with: nothing Known history of: COPD, congestive heart failure Associated symptoms: Reports: fever, cough, wheezing Treatment prior to arrival: bronchodilator Cough Description: Involuntary Cough Frequency: Intermittent - Related Data Home Medications Medication Instructions Recorded Confirmed Cetirizine HCl [Zyrtec] 10 mg PO HS 04/17/15 07/27/16 Cholecalciferol (Vitamin D3) 2,000 unit PO DAILY 04/17/15 07/27/16 [Vitamin D3] Glimepiride 4 mg PO QAM 04/17/15 07/27/16 Insulin ASPART [NovoLOG] 2 - 10 unit SQ ACHS 04/17/15 07/27/16 Insulin Glargine,Hum.rec.anlog 10 unit SQ QAM 04/17/15 07/27/16 [Lantus Solostar] Promethazine [Phenergan] 25 mg PO Q8H PRN 04/17/15 07/27/16 Donepezil HCl [Donepezil HCl Odt] 5 mg PO HS 06/08/15 07/27/16 Albuterol Sulfate [Albuterol 2 puff IH Q6H PRN 10/12/15 07/27/16 Inhaler] Furosemide [Lasix] 20 mg PO DAILY 10/12/15 07/27/16 Insulin Glargine,Hum.rec.anlog 8 unit SQ QPM 10/12/15 07/27/16 [Lantus Solostar] Omeprazole [PriLOSEC] 20 mg PO DAILY 10/12/15 07/27/16 Oxycodone HCl/Acetaminophen 1 each PO Q4H PRN 12/29/15 07/27/16 [Percocet 5-325 mg Tablet] Amlodipine [Norvasc] 10 mg PO DAILY 01/26/16 07/27/16 Ascorbate Calcium [Vitamin C] 500 mg PO DAILY 06/14/16 07/27/16 Atorvastatin [Lipitor] 10 mg PO HS 06/14/16 07/27/16 Calcitriol [Rocaltrol] 0.25 mcg PO DAILY 06/14/16 07/27/16 Docusate [Colace] 100 mg PO DAILY PRN 06/14/16 07/27/16 Guaifenesin [Mucinex] 600 mg PO Q12H PRN 06/14/16 07/27/16 Linagliptin [Tradjenta] 5 mg PO DAILY 06/14/16 07/27/16 Alendronate Sodium [Fosamax] 70 mg PO QWEEK 06/22/16 07/27/16 Budesonide/Formoterol 80/4.5 2 puff IH Q12H 06/22/16 07/27/16 [Symbicort 80/4.5] Calcium Carbonate [Calcium] 600 mg PO BID 06/22/16 07/27/16 Albuterol Neb [Proventil Neb] 2.5 mg IH Q4H PRN 07/27/16 07/27/16 Azithromycin 500 mg IV 07/27/16 07/27/16 Azithromycin [Zithromax Tri-Danilo] 500 mg PO DAILY 07/27/16 07/27/16 Carvedilol 3.125 mg PO BID 07/27/16 07/27/16 CloNIDine HCl 0.1 mg PO Q8H 07/27/16 07/27/16 Famotidine [Pepcid] 20 mg PO BID 07/27/16 07/27/16 Ipratropium/Albuterol Neb [Duoneb] 3 ml IH Q4HR 07/27/16 07/27/16 Ipratropium/Albuterol Neb [Duoneb] 3 ml IH QID PRN 07/27/16 07/27/16 Oseltamivir Phosphate [Tamiflu] 30 mg PO ONCE 07/27/16 07/27/16 Promethazine HCl 12.5 mg PO Q6H PRN 07/27/16 07/27/16 Sucralfate [Carafate] 1 gm PO QIDAC 07/27/16 07/27/16 Allergies Allergy/AdvReac Type Severity Reaction Status Date / Time aspirin [ASA] Allergy Swelling Verified 05/18/16 13:40 of Lip/Tongue/Throat NSAIDS (Non-Steroidal Allergy Swelling Verified 05/18/16 13:40 Anti-Inflamma of Lip/Tongue/Throat Penicillins Allergy Hives Verified 05/18/16 13:40 iron AdvReac Unknown Verified 05/18/16 13:40 Constitutional: Reports: fever, chills. Denies: weakness, weight change Eyes: Denies: eye pain, eye discharge, vision change ENT ED: Denies: ear pain, throat pain, dental pain, hearing loss, epistaxis, congestion, dysphagia Cardiovascular: Reports: chest pain. Denies: palpitations, dyspnea on exertion , edema, syncope Respiratory: Reports: cough, dyspnea, wheezes. Denies: hemoptysis, stridor Gastrointestinal: Denies: abdominal pain, nausea, vomiting, diarrhea, constipation, hematemesis, melena, hematochezia Genitourinary: Reports: dysuria, frequency. Denies: hematuria, discharge Musculoskeletal: Denies: back pain, neck pain, arthralgia, myalgia Integumentary: Denies: rash, abrasion, lesions Neurological: Denies: headache, weakness, numbness, paresthesias, confusion, abnormal gait, vertigo Psychiatric: Denies: anxiety, depression, suicidal thoughts, homicidal thoughts , auditory hallucinations, visual hallucinations Endocrine: Denies: fatigue Hematological/Lymphatic: Denies: easy bleeding, easy bruising Allergic/Immunologic: Denies: facial swelling, urticaria Past Medical History - Past Medical History Medical history: Reports: CHF, COPD, CVA, diabetes, renal disease Surgical history: Reports: cholecystectomy, hysterectomy Psychiatric history: Reports: anxiety, depression RETAIL CLIENT SOLUTIONS ANALYST history: Reports: no RETAIL CLIENT SOLUTIONS ANALYST history - Social History Smoking Status: Former smoker Smokeless Tobacco Status: No Alcohol use: Reports: none Drug use: Reports: none Physical Exam - General Limitations: no limitations General appearance: alert - Head Head exam: atraumatic, normocephalic, normal inspection - Eye Eye exam: Present: normal appearance, PERRL, EOMI - ENT ENT exam: normal exam, normal oropharynx, mucous membranes moist - Neck Neck exam: Present: normal inspection, full ROM, trachea midline - Respiratory Respiratory exam: Present: respiratory distress, wheezes - Cardiovascular Cardiovascular exam: Present: regular rate, normal rhythm, normal heart sounds - Abdominal Exam Abdominal exam: Present: distention - Extremities Exam Extremities exam: Present: normal inspection, full ROM. Absent: tenderness, pedal edema - Expanded Lower Extremity Exam Neurovascular/Tendon exam: Absent: motor deficit, sensory deficit, tendon deficit Gait: not tested/not observed - Back Exam Back exam: Present: normal inspection, full ROM. Absent: tenderness - Neurological Exam Neurological exam: Present: alert, oriented X3 - Psychiatric Psychiatric exam: Present: normal affect, normal mood - Skin Skin exam: Present: warm, dry, intact, normal color Course - Consultations Consultation #1: Chest the case with . He would prefer not a PICC line be placed in this lady for possible pneumonia. Venous access would either be a power glide versus a tunneled central line. Dr. Schofield states that a power quadrant. Okay from his point of view. Time: 12:50 Consultation #2: Discussed antibiotic dosing with pharmacy Hugo. Time: 14:58 Consultation #3: Discussed with , sherry. Time: 14:58 Vital Signs Temperature 99 F 07/27/16 12:25 Pulse Rate 70 07/27/16 12:25 Respiratory Rate 18 07/27/16 12:25 Blood Pressure 160/78 07/27/16 12:25 O2 Sat by Pulse Oximetry 95 07/27/16 12:25 Temperature 99 F 07/27/16 12:25 Pulse Rate 73 07/27/16 15:53 Respiratory Rate 16 07/27/16 15:53 Blood Pressure 151/71 07/27/16 15:53 O2 Sat by Pulse Oximetry 96 07/27/16 15:53 Oxygen Delivery Oxygen Delivery Nasal Cannula Shortness of Breath/Dyspnea - Lab Data Lab results reviewed: Yes I reviewed the patient's lab results. Result diagrams: 07/27/16 13:03 07/27/16 13:03 Lab Results 07/27/16 07/27/16 07/27/16 Range/Units 13:03 13:03 13:03 WBC 7.9 (4.3-11.1) K/mcL RBC 2.98 L (3.82-4.97) M/mcL Hgb 8.1 L (11.5-15.4) g/dL Hct 26.4 L (35.3-44.9) % MCV 88.6 (83.0-100.0) fL MCH 27.2 L (28.0-33.3) pg MCHC 30.7 L (31.6-35.5) g/dL RDW 15.6 H (11.5-14.5) % Plt Count 351 (140-400) K/mcL MPV 8.9 L (9.4-12.4) fL Immature Gran % 1.3 (0-4) % Seg Neutrophils % 67.2 % Lymphocytes % 15.4 % Monocytes % 10.2 % Eosinophils % 5.6 % Basophils % 0.3 % Neutrophils # 5.3 (1.6-8.9) K/mcL Lymphocytes # 1.2 (0.6-4.6) K/mcL Monocytes # 0.8 (0.0-1.3) K/mcL Eosinophils # 0.4 (0.0-0.6) K/mcL Basophils # 0.0 (0.0-0.2) K/mcL PT (9.4-12.1) Seconds INR APTT (26.0-36.0) Seconds Sodium 137 (136-145) mEq/L Potassium 4.4 (3.5-4.5) mEq/L Chloride 103 (98-109) mEq/L Carbon Dioxide 28 (19-29) mEq/L BUN 35 H (7-20) mg/dL Creatinine 1.85 H (0.57-1.11) mg/dL Est GFR ( Amer) 32 L (> 60) Est GFR (Non-Af Amer) 27 L (> 60) BUN/Creatinine Ratio 19 (6-26) Glucose 223 H (70-99) mg/dL Calculated Osmolality 299 (280-300) Lactic Acid 1.3 (0.5-2.2) mmol/L Calcium 8.5 L (8.6-10.8) mg/dL Troponin I (0-0.03) ng/mL B-Natriuretic Peptide (0-100) pg/mL Urine Color (Yellow) Urine Clarity (Clear) Urine pH (5.0-8.0) pH Units Ur Specific Cubero (1.010-1.025) Urine Protein (Neg-Trace) mg/dL Urine Glucose (UA) (Normal) mg/dL Urine Ketones (Negative) mg/dL Urine Blood (Negative) Urine Nitrite (Negative) Urine Bilirubin (Negative) Urine Urobilinogen (Normal) mg/dL Ur Leukocyte Esterase (Negative) Urine Microscopic RBC (0-3) per hpf Urine Microscopic WBC (0-3) per hpf Ur Squamous Epith Cells (None-Few) per lpf Urine Bacteria (None-Few) per hpf Hyaline Casts (None-Few) per lpf Ur Culture Indicated? (NO) 07/27/16 07/27/16 07/27/16 Range/Units 13:03 13:03 13:03 WBC (4.3-11.1) K/mcL RBC (3.82-4.97) M/mcL Hgb (11.5-15.4) g/dL Hct (35.3-44.9) % MCV (83.0-100.0) fL MCH (28.0-33.3) pg MCHC (31.6-35.5) g/dL RDW (11.5-14.5) % Plt Count (140-400) K/mcL MPV (9.4-12.4) fL Immature Gran % (0-4) % Seg Neutrophils % % Lymphocytes % % Monocytes % % Eosinophils % % Basophils % % Neutrophils # (1.6-8.9) K/mcL Lymphocytes # (0.6-4.6) K/mcL Monocytes # (0.0-1.3) K/mcL Eosinophils # (0.0-0.6) K/mcL Basophils # (0.0-0.2) K/mcL PT 11.7 (9.4-12.1) Seconds INR 1.1 APTT 28.5 (26.0-36.0) Seconds Sodium (136-145) mEq/L Potassium (3.5-4.5) mEq/L Chloride (98-109) mEq/L Carbon Dioxide (19-29) mEq/L BUN (7-20) mg/dL Creatinine (0.57-1.11) mg/dL Est GFR ( Amer) (> 60) Est GFR (Non-Af Amer) (> 60) BUN/Creatinine Ratio (6-26) Glucose (70-99) mg/dL Calculated Osmolality (280-300) Lactic Acid (0.5-2.2) mmol/L Calcium (8.6-10.8) mg/dL Troponin I 0.01 (0-0.03) ng/mL B-Natriuretic Peptide 300 H (0-100) pg/mL Urine Color (Yellow) Urine Clarity (Clear) Urine pH (5.0-8.0) pH Units Ur Specific Cubero (1.010-1.025) Urine Protein (Neg-Trace) mg/dL Urine Glucose (UA) (Normal) mg/dL Urine Ketones (Negative) mg/dL Urine Blood (Negative) Urine Nitrite (Negative) Urine Bilirubin (Negative) Urine Urobilinogen (Normal) mg/dL Ur Leukocyte Esterase (Negative) Urine Microscopic RBC (0-3) per hpf Urine Microscopic WBC (0-3) per hpf Ur Squamous Epith Cells (None-Few) per lpf Urine Bacteria (None-Few) per hpf Hyaline Casts (None-Few) per lpf Ur Culture Indicated? (NO) 07/27/16 Range/Units 13:32 WBC (4.3-11.1) K/mcL RBC (3.82-4.97) M/mcL Hgb (11.5-15.4) g/dL Hct (35.3-44.9) % MCV (83.0-100.0) fL MCH (28.0-33.3) pg MCHC (31.6-35.5) g/dL RDW (11.5-14.5) % Plt Count (140-400) K/mcL MPV (9.4-12.4) fL Immature Gran % (0-4) % Seg Neutrophils % % Lymphocytes % % Monocytes % % Eosinophils % % Basophils % % Neutrophils # (1.6-8.9) K/mcL Lymphocytes # (0.6-4.6) K/mcL Monocytes # (0.0-1.3) K/mcL Eosinophils # (0.0-0.6) K/mcL Basophils # (0.0-0.2) K/mcL PT (9.4-12.1) Seconds INR APTT (26.0-36.0) Seconds Sodium (136-145) mEq/L Potassium (3.5-4.5) mEq/L Chloride (98-109) mEq/L Carbon Dioxide (19-29) mEq/L BUN (7-20) mg/dL Creatinine (0.57-1.11) mg/dL Est GFR ( Amer) (> 60) Est GFR (Non-Af Amer) (> 60) BUN/Creatinine Ratio (6-26) Glucose (70-99) mg/dL Calculated Osmolality (280-300) Lactic Acid (0.5-2.2) mmol/L Calcium (8.6-10.8) mg/dL Troponin I (0-0.03) ng/mL B-Natriuretic Peptide (0-100) pg/mL Urine Color Yellow (Yellow) Urine Clarity Clear (Clear) Urine pH 6.0 (5.0-8.0) pH Units Ur Specific Cubero 1.011 (1.010-1.025) Urine Protein 30 H (Neg-Trace) mg/dL Urine Glucose (UA) Normal (Normal) mg/dL Urine Ketones Negative (Negative) mg/dL Urine Blood Negative (Negative) Urine Nitrite Negative (Negative) Urine Bilirubin Negative (Negative) Urine Urobilinogen Normal (Normal) mg/dL Ur Leukocyte Esterase Negative (Negative) Urine Microscopic RBC 0-3 (0-3) per hpf Urine Microscopic WBC 0-3 (0-3) per hpf Ur Squamous Epith Cells Many H (None-Few) per lpf Urine Bacteria None Seen (None-Few) per hpf Hyaline Casts None Seen (None-Few) per lpf Ur Culture Indicated? NO (NO) - Radiology Data Radiology results reviewed: Yes I reviewed the patient's radiology results. Chest X-Ray 07/27/16 12:34 IMPRESSION: Multifocal bronchiolitis and bronchopneumonia throughout the chest bilaterally, with a small left pleural effusion. Overall interval worsening when compared to the previous examination. D/ / Lalo Weinstein MD / Lalo Weinstein MD Interpreting Provider: Lalo Weinstein MD - EKG Data EKG attestation: Yes I reviewed and interpreted this EKG. EKG shows normal: Reports: sinus rhythm Rate: Reports: normal Rhythm: Reports: NSR Interpretation: Reports: no acute changes
[2016-07-27 13:16] LABS: Basophils % 0.3 %; Eosinophils # 0.4 K/mcL (0.0-0.6); Eosinophils % 5.6 %; Hematocrit 26.4 % (35.3-44.9); Hemoglobin 8.1 g/dL (11.5-15.4); Immature Granulocytes % 1.3 % (0-4); Lymphocytes # 1.2 K/mcL (0.6-4.6); Lymphocytes % 15.4 %; Mean Corpuscular HGB Conc 30.7 g/dL (31.6-35.5); Mean Corpuscular Hemoglobin 27.2 pg (28.0-33.3); Mean Corpuscular Volume 88.6 fL (83.0-100.0); Mean Platelet Volume 8.9 fL (9.4-12.4); Monocytes # 0.8 K/mcL (0.0-1.3); Monocytes % 10.2 %; Neutrophils # 5.3 K/mcL (1.6-8.9); Platelet Count 351 K/mcL (140-400); Red Blood Count 2.98 M/mcL (3.82-4.97); Red Cell Distribution Width 15.6 % (11.5-14.5); Segmented Neutrophils % 67.2 %
[2016-07-27 13:25] LABS: INR 1.1; Prothrombin Time 11.7 Seconds (9.4-12.1)
[2016-07-27 13:27] LABS: Activated Partial Thrombo Time 28.5 Seconds (26.0-36.0)
[2016-07-27 13:28] LABS: Calcium 8.5 mg/dL (8.6-10.8); Potassium 4.4 mEq/L (3.5-4.5)
[2016-07-27 13:40] LABS: Bilirubin,Urine Negative (Negative); Blood,Urine Negative (Negative); Clarity,Urine Clear (Clear); Color,Urine Yellow (Yellow); Glucose,Urine (UA) Normal (Normal); Ketones,Urine Negative (Negative); Leukocyte Esterase,Urine Negative (Negative); Nitrite,Urine Negative (Negative); Protein,Urine 30 mg/dL (Neg-Trace); Specific Gravity,Urine 1.011 (1.010-1.025); Urobilinogen,Urine Normal (Normal)
[2016-07-27 13:42] LABS: Bacteria,Urine None Seen per hpf (None-Few); Hyaline Casts,Urine None Seen per lpf (None-Few); RBC,Urine 0-3 per hpf (0-3); Squamous Epithelial Cell,Urine Many per lpf (None-Few); WBC,Urine 0-3 per hpf (0-3)
[2016-07-27] MEDS ORDERED: Vancomycin 1,000 MG in D5% in Water 250 ML IVPB ONE (14:54)
[2016-07-27] MEDS ORDERED: Aztreonam 2,000 MG in D5% in Water (Mini-Bag+) 100 ML IVPB STA (14:54)
[2016-07-27] MEDS ORDERED: *HR* HYDROcodone/Acet 5/325 mg TABLET PO ONE (16:54)
[2016-07-27] MEDS ORDERED: Ondansetron 4 MG/2 ML VIAL IVP PRN (20:42)
[2016-07-27] MEDS ORDERED: Albuterol 2.5 MG/3 ML NEBULIZER IH PRN (20:48)
[2016-07-27] MEDS ORDERED: *HR* Dextrose 50 % in Water (Syg) 50 ML SYRINGE IVP PRN (20:52)
[2016-07-27] MEDS ORDERED: Dextrose Gel 15 GM PO PRN ×2 (20:52)
[2016-07-27] MEDS ORDERED: Insulin LISPRO 300 UNITS/3 ML VIAL SQ SCH ×2 (21:00→23:34)
--- NOTE | 2016-07-27 21:06 | Internal Med History&Physical ---
<Ella Andres - Last Filed: 07/27/16 21:22> Date of Encounter: 07/27/16 Time of Encounter: 20:00 Assessment and Plan (1) HCAP (healthcare-associated pneumonia) Current visit: Yes Status: Acute 1 patient has been experiencing increased fatigue and weakness fever with exposure to flu. She did received 2 rounds of antibiotics for approximately 1 week with no improvement. Patient does reside in an [facility]. Chest x-ray reveals bronchopneumonia. Patient started on vancomycin and Azactam continue renally dosed per pharmacy 2 obtain urine legionnaire as well as strep pneumonia-influenza swab was negative 2 3 continue oxygen titrated to maintain SPO2 greater than 92% 4 bronchodilators (2) CKD (chronic kidney disease) stage 4, GFR 15-29 ml/min Current visit: No Status: Chronic 1 years patient's creatinine is stable at 1.85 -appears baseline is around 2. We will continue to monitor creatinine 2 we will avoid nephrotoxins and renally dose all antibiotics 3 monitor intake and output and daily weight 4 renal diet 5 nephrology consult and follow-up as outpatient (3) COPD (chronic obstructive pulmonary disease) Current visit: No Status: Chronic 1 presently no wheezing noted we will continue with oxygen maintaining SPO2 greater 90% as well as bronchodilators Qualifiers: COPD type: unspecified COPD Qualified Code(s): J44.9 - Chronic obstructive pulmonary disease, unspecified (4) Hypertension Current visit: No Status: Chronic 1 we will continue with home medications. Goal is to Maintain systolic less than 140 Qualifiers: Hypertension type: essential hypertension Qualified Code(s): I10 - Essential (primary) hypertension (5) Insulin dependent type 2 diabetes mellitus Current visit: No Status: Chronic 1 Accu-Cheks before meals at bedtime we will continue with basal insulin sliding scale insulin as needed goal is to maintain postprandial less than 180 2 diabetic diet (6) DVT prophylaxis Current visit: No Status: Acute 1 SCDs bilaterally Internal Medicine - H&P: HPI Chief complaint: sob Admitted From: Emergency Dept Plans for Post Hospital Care: Transfer Jail Facility History of present illness: Ms. Parks is a 76 year old female with past medical hx of chf cva DM CKD stage 4 copd oxygen depenedent breast CA anemia. Patient is a resident of an [facility] she has been experiencing increasing fatigue with past few days. She had a chest x- ray at the [facility] which revealed some pneumonia she was started on Rocephin IM for 7 days as well as Levaquin by mouth for 7 days she completed this course she continued to feel weak and unable to complete therapy. She did have a fever 101 for approximately 2 days as well as been experiencing increasing shortness of breath and wheezing. He has been unable to participate in physical therapy. Many of the presence of a snf have been exposed to flu she was swabbed twice which did reveal negative flu swab her she was given Tamiflu yesterday. She was brought to the ER for the above complaints according to ER records lab work did not reveal any leukocytosis creatinine was 1.85 lactate was 1.3 troponin was 0.01 chest x-ray revealed bronchopneumonia small left pleural effusion. EKG with normal sinus rhythm. PICC line was placed patient was given IV fluids, steroids vancomycin and Azactam. She has been admitted for further workup and evaluation. Presently patient does not appear to be any respiratory distress she denies any chest pain or shortness of breath. Upon auscultation: Lung Sounds with fine crackles in the bases bilaterally. Present time patient is hemodynamically stable. I reviewed this case with Dr Oliveira who agrees with plan Past Med Surg Social Fam HX - Past Medical History Medical history: CHF, COPD, CVA, diabetes, renal disease Psychiatric history: anxiety, depression - Past Surgical History Surgical History: cholecystectomy, hysterectomy - Social History Smoking Status: Former smoker Smokeless Tobacco Status: No Alcohol use: none Drug use: none - Family History Mother Family Member Ethnicity: Non- Living Status: Age at : 69 Cause of : colon cx Hx Family Cardiac Disorders: No Hx Family Respiratory Disorders: No Hx Family Cancer: Yes (colon) Father Living Status: Hx Family Cardiac Disorders: No Hx Family Respiratory Disorders: No Hx Family Cancer: Yes Hx Family GI Disorders: Yes Hx Family Endocrine Disorder: Yes Hx Family Neuromuscular Disorders: No Hx Family Neurologic Disorders: No Hx Family HEENT Disorders: No Hx Family Autoimmune Disorders: No Internal Medicine - H&P: Meds Cetirizine HCl [Zyrtec] 10 mg PO HS 04/17/15 [History] Cholecalciferol (Vitamin D3) [Vitamin D3] 2,000 unit PO DAILY 04/17/15 [History] Glimepiride 4 mg PO QAM 04/17/15 [History] Insulin ASPART [NovoLOG] 2 - 10 unit SQ ACHS 04/17/15 [History] Insulin Glargine,Hum.rec.anlog [Lantus Solostar] 10 unit SQ QAM 04/17/15 [ History] Promethazine [Phenergan] 25 mg PO Q8H PRN 04/17/15 [History] Donepezil HCl [Donepezil HCl Odt] 5 mg PO HS 06/08/15 [History] Albuterol Sulfate [Albuterol Inhaler] 2 puff IH Q6H PRN 10/12/15 [History] Furosemide [Lasix] 20 mg PO DAILY 10/12/15 [History] Insulin Glargine,Hum.rec.anlog [Lantus Solostar] 8 unit SQ QPM 10/12/15 [History ] Omeprazole [PriLOSEC] 20 mg PO DAILY 10/12/15 [History] Oxycodone HCl/Acetaminophen [Percocet 5-325 mg Tablet] 1 each PO Q4H PRN [History] Amlodipine [Norvasc] 10 mg PO DAILY 01/26/16 [History] Ascorbate Calcium [Vitamin C] 500 mg PO DAILY 06/14/16 [History] Atorvastatin [Lipitor] 10 mg PO HS 06/14/16 [History] Calcitriol [Rocaltrol] 0.25 mcg PO DAILY 06/14/16 [History] Docusate [Colace] 100 mg PO DAILY PRN 06/14/16 [History] Guaifenesin [Mucinex] 600 mg PO Q12H PRN 06/14/16 [History] Linagliptin [Tradjenta] 5 mg PO DAILY 06/14/16 [History] Alendronate Sodium [Fosamax] 70 mg PO QWEEK 06/22/16 [History] Budesonide/Formoterol 80/4.5 [Symbicort 80/4.5] 2 puff IH Q12H 06/22/16 [ History] Calcium Carbonate [Calcium] 600 mg PO BID 06/22/16 [History] Albuterol Neb [Proventil Neb] 2.5 mg IH Q4H PRN 07/27/16 [History] Azithromycin 500 mg IV 07/27/16 [History] Azithromycin [Zithromax Tri-Danilo] 500 mg PO DAILY 07/27/16 [History] Carvedilol 3.125 mg PO BID 07/27/16 [History] CloNIDine HCl 0.1 mg PO Q8H 07/27/16 [History] Famotidine [Pepcid] 20 mg PO BID 07/27/16 [History] Ipratropium/Albuterol Neb [Duoneb] 3 ml IH Q4HR 07/27/16 [History] Ipratropium/Albuterol Neb [Duoneb] 3 ml IH QID PRN 07/27/16 [History] Oseltamivir Phosphate [Tamiflu] 30 mg PO ONCE 07/27/16 [History] Promethazine HCl 12.5 mg PO Q6H PRN 07/27/16 [History] Sucralfate [Carafate] 1 gm PO QIDAC 07/27/16 [History] Allergies aspirin [ASA] Allergy (Verified 05/18/16 13:40) Swelling of Lip/Tongue/Throat NSAIDS (Non-Steroidal Anti-Inflamma Allergy (Verified 05/18/16 13:40) Swelling of Lip/Tongue/Throat Penicillins Allergy (Verified 05/18/16 13:40) Hives iron Adverse Reaction (Verified 05/18/16 13:40) Unknown Push only All Systems PM: A 10-system review of systems was performed and is negative for pertinent findings except as documented above in the HPI. - Constitutional Constitutional: anorexia, fatigue, fever(s) - Cardiovascular Cardiovascular ROS IM: dyspnea on exertion - Respiratory Respiratory: cough, dyspnea on exertion, wheezing - Gastrointestinal Gastrointestinal: no abdominal pain, no diarrhea, no hematemesis, no hematochezia, no melena, no nausea, no vomiting - Genitourinary Genitourinary: no change in urinary stream, no dysuria, no flank pain, no hematuria - Musculoskeletal Musculoskeletal ROS IM: no numbness, no tingling - Integumentary Integumentary IM: no rash, no unusual bruising - Neurological Neurological ROS: no confusion, no convulsions, no focal weakness, no numbness, no tingling, no tremor(s) - Constitutional Vitals: Temp Pulse Resp BP Pulse Ox 98.6 F 83 15 137/69 94 L 07/27/16 20:34 07/27/16 20:34 07/27/16 20:34 07/27/16 20:34 07/27/16 20:34 General appearance: Present: A&O X 3 - Head Head exam: Present: atraumatic, normocephalic - Eye Eye exam: Present: PERRL, conjuntiva pink, sclera anicteric Pupils: Present: PERRL - Neck Neck exam general surgery: Present: supple, trachea midline. Absent: lymphadenopathy - Respiratory Respiratory exam: Present: decreased breath sounds, rales. Absent: accessory muscle use, rhonchi, wheezes - Cardiovascular Cardiovascular exam: Present: RRR, +S1, +S2. Absent: diastolic murmur, gallop, rubs, systolic murmur - GI/Abdominal GI/Abdominal exam: Present: normal bowel sounds, soft, no peritoneal signs. Absent: distended, tenderness - Extremities Exam Extremities exam: Present: warm, radial pulses palpable and symetrical. Absent : calf tenderness, cyanotic, pedal edema - Neurological Exam Neurological exam: Present: CN II-XII intact, oriented X3, no focal deficits. Absent: pronater drift, facial droop, speech deficit - Skin Skin exam: Present: dry, intact Internal Med - H&P Results - Labs CBC & Chem 7: 07/27/16 13:03 07/27/16 13:03 - EKG Data EKG shows normal: sinus rhythm - Diagnostic Studies Chest x-ray Additional comments: Chest X-Ray 07/27/16 12:34 IMPRESSION: Multifocal bronchiolitis and bronchopneumonia throughout the chest bilaterally, with a small left pleural effusion. Overall interval worsening when compared to the previous examination. D/ / Lalo Weinstein MD / Lalo Weinstein MD Interpreting Provider: Lalo Weinstein MD <Chacorta Adamson - Last Filed: 07/28/16 02:23> Internal Medicine - H&P: HPI History of present illness: Ms. Parks is a 76 year old female All Systems PM: A 10-system review of systems was performed and is negative for pertinent findings except as documented above in the HPI. - Constitutional Vitals: Temp Pulse Resp BP Pulse Ox 97.8 F 75 12 140/72 96 07/27/16 23:50 07/27/16 23:50 07/27/16 23:50 07/27/16 23:50 07/27/16 23:50 Internal Med - H&P Results - Labs CBC & Chem 7: 07/27/16 13:03 07/27/16 13:03 - Attending Attestation I examined this patient and my medical decision-making was reviewed with the PASSENGER BARGE MASTER/PA/Advanced Practice Nurse/Resident Physician. I agree with the documented findings, disposition and treatment plan as described except to the extent set forth below. I examined the patient independently, and I discussed the case with the patient's daughter. I do agree with the physical examination findings, assessment and plan as documented by our practitioner Ella Andres. I discussed the case with Ella. Briefly, patient with healthcare associated pneumonia and underlying chronic kidney disease. Continue with broad-spectrum antibiotics, follow cultures. Hyperglycemia noted, insulin therapy ordered. Continue monitoring fingerstick.
[2016-07-27] MEDS: Loratadine 10 MG TABLET PO SCH (21:29)
[2016-07-27] MEDS: cloNIDine HCl 0.1 MG TABLET PO SCH (21:29)
[2016-07-27] MEDS ORDERED: Insulin DETEMIR 100 UNIT/ML X5UNITS SQ SCH (21:30)
[2016-07-27] MEDS: Ipratropium/Albuterol Neb 3 ML IH SCH (23:29)
[2016-07-27] MEDS: Aztreonam 1,000 MG in D5% in Water (Mini-Bag+) 100 ML IVPB SCH (23:55)
[2016-07-28 04:49] LABS: Immature Granulocytes % 1.1 % (0-4); Lymphocytes # 0.5 K/mcL (0.6-4.6); Lymphocytes % 6.9 %; Mean Corpuscular HGB Conc 30.8 g/dL (31.6-35.5); Mean Corpuscular Hemoglobin 26.8 pg (28.0-33.3); Mean Corpuscular Volume 87.2 fL (83.0-100.0); Mean Platelet Volume 9.4 fL (9.4-12.4); Monocytes # 0.1 K/mcL (0.0-1.3); Monocytes % 1.4 %; Neutrophils # 5.9 K/mcL (1.6-8.9); Platelet Count 373 K/mcL (140-400); Red Blood Count 2.98 M/mcL (3.82-4.97); Red Cell Distribution Width 15.5 % (11.5-14.5); Segmented Neutrophils % 90.6 %
[2016-07-28 04:58] LABS: Potassium 4.7 mEq/L (3.5-4.5)
[2016-07-28] MEDS: Ipratropium/Albuterol Neb 3 ML IH SCH ×4 (04:59→22:33)
[2016-07-28] MEDS: cloNIDine HCl 0.1 MG TABLET PO SCH ×3 (05:58→22:00)
[2016-07-28] MEDS ORDERED: Famotidine 20 MG TABLET PO SCH (07:30)
[2016-07-28] MEDS ORDERED: Insulin LISPRO 300 UNITS/3 ML VIAL SQ SCH (07:30)
[2016-07-28] MEDS: Insulin LISPRO 300 UNITS/3 ML VIAL SQ SCH ×3 (08:33→16:59)
[2016-07-28] MEDS: Aztreonam 1,000 MG in D5% in Water (Mini-Bag+) 100 ML IVPB SCH ×3 (08:39→23:14)
[2016-07-28] MEDS: Ascorbic Acid 500 MG TABLET PO SCH (08:39)
[2016-07-28] MEDS: Furosemide 20 MG TABLET PO SCH (08:39)
[2016-07-28] MEDS: amLODIPine 5 MG TABLET PO SCH (08:39)
[2016-07-28] MEDS: Cholecalciferol (D-3) 1,000 UNIT TABLET PO SCH (08:39)
[2016-07-28] MEDS: Lactobacillus 1 EACH CAP.SPRINK PO SCH (08:39)
[2016-07-28] MEDS ORDERED: Insulin DETEMIR 100 UNIT/ML X5UNITS SQ SCH ×3 (09:00→18:00)
[2016-07-28] MEDS ORDERED: Vancomycin (wt based) 1,000 MG VIAL IVPB SCH (09:00)
--- NOTE | 2016-07-28 09:46 | Nephrology Consult Note ---
Date of Encounter: 07/28/16 Time of Encounter: 09:42 Assessment and Plan (1) CKD (chronic kidney disease) stage 4, GFR 15-29 ml/min Current Visit: No Status: Chronic Scr at baseline-will monitor closely Pharmacy to dose Vanco Avoid nephrotoxins if possible (2) HCAP (healthcare-associated pneumonia) Current Visit: Yes Status: Acute Patient has been in ns home x 1 month; gets 2 hours a day P.T. but otherwise sits or lays rest of day. Extremely short of breath, especially with talking; can only ambulate about 15 feet without becoming very dyspneic Concerned about possibility of PE-consider CT of chest with contrast using renal protective strategies or VQ scan (3) COPD (chronic obstructive pulmonary disease) Current Visit: No Status: Chronic per primary team Qualifiers: COPD type: unspecified COPD Qualified Code(s): J44.9 - Chronic obstructive pulmonary disease, unspecified (4) Hypertension Current Visit: No Status: Chronic per primary team Qualifiers: Hypertension type: essential hypertension Qualified Code(s): I10 - Essential (primary) hypertension History of Present Illness - Reason for Consult Consult date: 07/28/16 Chronic Kidney Disease - Chief Complaint CKD stage 4, HTN, HCAP - History of Present Illness Ms. Parks is a 76 year old female with past medical hx of CHF, CVA, DM, CKD stage 4, COPD, oxygen depenedent, breast CA,and anemia. Patient is a resident of an [facility] for the last month and has been experiencing increasing fatigue and SOB for past few days. Chest xray showed pneumonia and she was given two rounds of antibiotics without improvement. Currently on Vanco and Azactam. Patient has CKD stage [address] Corona. Baseline Scr is 1.7 to 2.1. Past Med Surg Social Fam HX - Past Medical History Medical history: CHF, COPD, CVA, diabetes, renal disease Psychiatric history: anxiety, depression - Past Surgical History Surgical History: cholecystectomy, hysterectomy - Social History Smoking Status: Former smoker Smokeless Tobacco Status: No Alcohol use: none Drug use: none - Family History Mother Family Member Ethnicity: Non- Living Status: Age at : 69 Cause of : colon cx Hx Family Cardiac Disorders: No Hx Family Respiratory Disorders: No Hx Family Cancer: Yes (colon) Father Living Status: Hx Family Cardiac Disorders: No Hx Family Respiratory Disorders: No Hx Family Cancer: Yes Hx Family GI Disorders: Yes Hx Family Endocrine Disorder: Yes Hx Family Neuromuscular Disorders: No Hx Family Neurologic Disorders: No Hx Family HEENT Disorders: No Hx Family Autoimmune Disorders: No Medications and Allergies Cetirizine HCl [Zyrtec] 10 mg PO HS 04/17/15 [History] Cholecalciferol (Vitamin D3) [Vitamin D3] 2,000 unit PO DAILY 04/17/15 [History] Glimepiride 4 mg PO QAM 04/17/15 [History] Insulin ASPART [NovoLOG] 2 - 10 unit SQ ACHS 04/17/15 [History] Insulin Glargine,Hum.rec.anlog [Lantus Solostar] 10 unit SQ QAM 04/17/15 [ History] Promethazine [Phenergan] 25 mg PO Q8H PRN 04/17/15 [History] Donepezil HCl [Donepezil HCl Odt] 5 mg PO HS 06/08/15 [History] Albuterol Sulfate [Albuterol Inhaler] 2 puff IH Q6H PRN 10/12/15 [History] Furosemide [Lasix] 20 mg PO DAILY 10/12/15 [History] Insulin Glargine,Hum.rec.anlog [Lantus Solostar] 8 unit SQ QPM 10/12/15 [History ] Omeprazole [PriLOSEC] 20 mg PO DAILY 10/12/15 [History] Oxycodone HCl/Acetaminophen [Percocet 5-325 mg Tablet] 1 each PO Q4H PRN [History] Amlodipine [Norvasc] 10 mg PO DAILY 01/26/16 [History] Ascorbate Calcium [Vitamin C] 500 mg PO DAILY 06/14/16 [History] Atorvastatin [Lipitor] 10 mg PO HS 06/14/16 [History] Calcitriol [Rocaltrol] 0.25 mcg PO DAILY 06/14/16 [History] Docusate [Colace] 100 mg PO DAILY PRN 06/14/16 [History] Guaifenesin [Mucinex] 600 mg PO Q12H PRN 06/14/16 [History] Linagliptin [Tradjenta] 5 mg PO DAILY 06/14/16 [History] Alendronate Sodium [Fosamax] 70 mg PO QWEEK 06/22/16 [History] Budesonide/Formoterol 80/4.5 [Symbicort 80/4.5] 2 puff IH Q12H 06/22/16 [ History] Calcium Carbonate [Calcium] 600 mg PO BID 06/22/16 [History] Albuterol Neb [Proventil Neb] 2.5 mg IH Q4H PRN 07/27/16 [History] Azithromycin 500 mg IV 07/27/16 [History] Azithromycin [Zithromax Tri-Danilo] 500 mg PO DAILY 07/27/16 [History] Carvedilol 3.125 mg PO BID 07/27/16 [History] CloNIDine HCl 0.1 mg PO Q8H 07/27/16 [History] Famotidine [Pepcid] 20 mg PO BID 07/27/16 [History] Ipratropium/Albuterol Neb [Duoneb] 3 ml IH Q4HR 07/27/16 [History] Ipratropium/Albuterol Neb [Duoneb] 3 ml IH QID PRN 07/27/16 [History] Oseltamivir Phosphate [Tamiflu] 30 mg PO ONCE 07/27/16 [History] Promethazine HCl 12.5 mg PO Q6H PRN 07/27/16 [History] Sucralfate [Carafate] 1 gm PO QIDAC 07/27/16 [History] Allergies aspirin [ASA] Allergy (Verified 05/18/16 13:40) Swelling of Lip/Tongue/Throat NSAIDS (Non-Steroidal Anti-Inflamma Allergy (Verified 05/18/16 13:40) Swelling of Lip/Tongue/Throat Penicillins Allergy (Verified 05/18/16 13:40) Hives iron Adverse Reaction (Verified 05/18/16 13:40) Unknown Push only Review of Systems All Systems: reviewed and no additional remarkable complaints except as stated Constitutional: fatigue, no chills, no fever(s) Cardiovascular: dyspnea, dyspnea on exertion, edema, leg edema, pedal edema, no chest pain Respiratory: dyspnea, dyspnea on exertion, no cough Gastrointestinal: bloating, no cramping, no nausea, no vomiting Neurological: no behavioral changes, no confusion Psychiatric: no anxiety, no behavioral changes Exam - Vital Signs Vital signs: Initial Vital Signs Temp Pulse Resp BP Pulse Ox 99 F 70 18 160/78 95 07/27/16 12:25 07/27/16 12:25 07/27/16 12:25 07/27/16 12:25 07/27/16 12:25 Vital Signs - Last 8 Hours Temp Pulse Resp BP Pulse Ox 07/28/16 08:12 98.0 F 74 16 146/74 95 07/28/16 04:01 97.9 F 80 15 136/69 95 Intake and Output 07/27/16 07/28/16 07/28/16 23:59 07:59 15:59 Intake Total 120 / 120 Output Total 500 / 500 600 / 600 Balance -500 / -150 -600 / -600 120 / 120 Intake: IV Fluids 100 / 100 Azactam 1,000 MG In 100 / 100 Dextrose 5% (Minibag+) 100 ML 100 ML @ 200 mls/ hr IVPB Q8HR KEILA Rx#: [id number] Oral 20 / 20 Output: Urine 500 / 500 600 / 600 Other: Weight 83.915 kg Blood Glucose* 546 Patient Weight 07/28/16 23:59 Weight 83.915 kg - General Appearance General appearance: fatigue, frail EENT: ATNC, mucous membranes moist, hearing intact, vision intact Neck: supple Respiratory: clear (decreased throughout) Cardiology: edema (minimal BLL edema), normal S1, normal S2 Gastrointestinal: no tenderness, no guarding, distended (improved) Integumentary: warm and dry Neurologic: alert and oriented x3 Psychiatric: mood/affect appropriate, cooperative Results - Lab Results 07/28/16 04:10 07/28/16 04:10 Most recent lab results Calcium 8.0 mg/dL (8.6-10.8) L 07/28/16 04:10 Consult Discharge Plan - Plan Referrals: Jose,Therese Mccormick [employer] [Primary Care Provider] -
[2016-07-28] MEDS: Budesonide/Formoterol 80/4.5 MDI IH SCH ×2 (10:26→22:33)
[2016-07-28] MEDS: Insulin DETEMIR 100 UNIT/ML X5UNITS SQ SCH ×2 (11:02→20:17)
[2016-07-28] MEDS ORDERED: Naloxone 0.4 MG/ML INJ IVP PRN (12:50)
[2016-07-28] MEDS ORDERED: *HR* Morphine 2 MG/ML SYRINGE IVP PRN (12:50)
[2016-07-28] MEDS ORDERED: *HR* HYDROcodone/Acet 5/325 mg TABLET PO PRN (12:50)
[2016-07-28] MEDS: *HR* Acetaminophen w/Cod 300-30 mg 1 TAB TABLET PO PRN ×2 (13:10→22:00)
[2016-07-28] MEDS ORDERED: Vancomycin 1,000 MG in D5% in Water 250 ML IVPB ONE (17:04)
--- NOTE | 2016-07-28 17:20 | Electrocardiograph Report ---
[address] [address] Test Date: 2016-07-27 Pat Name: Dorothy Parks Department: [id number] Room: 3B Gender: F Security Supervisor: TIM : 1940 Requested By: Luis Ortega Order Number: [id number] Reading MD: Tres Cisse MD Measurements Intervals [place] Rate: 64 P: 76 WI: 142 QRS: -3 QRSD: 86 T: 45 QT: 415 QTc: 424 Interpretive Statements SINUS RHYTHM Electronically Signed On 07-28-2016 17:19:07 EDT by Tres Cisse MD
--- NOTE | 2016-07-28 17:23 | Internal Med Progress Note ---
Date of Encounter: 07/28/16 Time of Encounter: 14:00 - Assessment and plan (1) HCAP (healthcare-associated pneumonia) Current Visit: Yes Status: Acute Assessment and plan: Chest x-ray revealing multifocal bronchiolitis with bronchopneumonia and a small left pleural effusion that is worsened from prior examinations. Chest CT obtained without contrast which reveals abnormal groundglass opacities within the right upper lobe and lingula concerning for atypical infectious process. Given that the patient frequently falls asleep mid conversation, she is at high risk for aspiration. She failed outpatient treatment with IM ceftriaxone and levofloxacin 1 week. She is currently on vancomycin and aztreonam. Infectious disease has been brought on board as well as pulmonology for consideration of a possible bronch. Nothing by mouth at midnight for possible bronch tomorrow. Of note, she is a former 3+ pack per day smoker up until last year. Continue pulmonary toilet, mucolytics, bronchodilators, and we will add back in Solu-Medrol now that her glucoses are better controlled. On examination , patient with mild to moderate respiratory distress and decreased aeration throughout. No pedal edema noted. No leukocytosis. Vital signs stable. Urine testing for Legionella and strep pneumonia negative. ITS Impressions Chest X-Ray 07/27/16 12:34 IMPRESSION: Multifocal bronchiolitis and bronchopneumonia throughout the chest bilaterally, with a small left pleural effusion. Overall interval worsening when compared to the previous examination. D/ / Lalo Weinstein MD / Lalo Weinstein MD Interpreting Provider: Lalo Weinstein MD Chest CT 07/28/16 12:00 IMPRESSION: 1. Abnormal ground-glass opacity within the right upper lobe and lingula concerning for an atypical infectious process. A follow-up imaging is recommended after treatment to ensure resolution. 2. Centrilobular emphysematous changes. D/ / 07/28/2016 13:12:14 Juan A White MD / Wilma Valencia Interpreting Provider: Juan A White MD (2) Acute exacerbation of chronic obstructive airways disease Current Visit: Yes Status: Acute Assessment and plan: See prior note for HCAP (3) Former heavy tobacco smoker Current Visit: Yes Status: Chronic Assessment and plan: Patient's daughter states that the patient used to smoke at least 3 packs per day up until last year when she quit cold turkey. (4) Acute and chronic respiratory failure Current Visit: Yes Status: Chronic Assessment and plan: No increased need for oxygen at this time, 2 L at home, 2 L here. Daughter is at the bedside and states the patient has been on continuous oxygen for the last couple months. Qualifiers: Respiratory failure complication: unspecified whether with hypoxia or hypercapnia Qualified Code(s): J96.20 - Acute and chronic respiratory failure , unspecified whether with hypoxia or hypercapnia (5) Failure of outpatient treatment Current Visit: Yes Status: Acute Assessment and plan: Outpatient treatment with IM ceftriaxone and by mouth Levaquin 1 week. (6) CKD (chronic kidney disease) stage 4, GFR 15-29 ml/min Current Visit: No Status: Chronic Assessment and plan: Stable and consistent with her baseline. Nephrology on board. Of note, as she is stage IV, nephrology recommends paragliding over PICC line if possible to protect the patient's vein in the event she may need dialysis in the near future. (7) Chronic blood loss anemia Current Visit: No Status: Chronic Assessment and plan: Chronic, stable, consistent with the low end of her baseline, we will continue to trend. No signs of active bleeding. (8) Hyperkalemia Current Visit: No Status: Acute Assessment and plan: Acute on chronic, mild, will trend. (9) Hypertension Current Visit: No Status: Chronic Assessment and plan: Controlled, home medications have been continued, we will continue to trend Qualifiers: Hypertension type: essential hypertension Qualified Code(s): I10 - Essential (primary) hypertension (10) History of CVA (cerebrovascular accident) Current Visit: No Status: Resolved Assessment and plan: 2 prior CVAs in the recent past. According to her chart, she received TPA and was started on Plavix. No new focal neurological weakness is present on examination. Patient alert and oriented 3 and able to answer questions appropriately. (11) DVT prophylaxis Current Visit: No Status: Acute Assessment and plan: IPC's ordered; pharmacologic prophylaxis contraindicated secondary to anemia (12) CHF (congestive heart failure) Current Visit: No Status: Chronic Assessment and plan: Echocardiogram from last month revealing ejection fraction of 60-65% with mild diastolic dysfunction. Chronic diastolic heart failure. She is on furosemide at home and this has been continued. She is currently euvolemic on examination. No acute exacerbation. Of note, nephrology stating he increased her Lasix couple weeks ago. Renal function remained stable. Qualifiers: Congestive heart failure type: diastolic Congestive heart failure chronicity: chronic Qualified Code(s): I50.32 - Chronic diastolic (congestive ) heart failure (13) COPD (chronic obstructive pulmonary disease) Current Visit: No Status: Chronic Qualifiers: COPD type: unspecified COPD Qualified Code(s): J44.9 - Chronic obstructive pulmonary disease, unspecified (14) Hyponatremia Current Visit: No Status: Acute Assessment and plan: Mild, we will trend (15) Insulin dependent type 2 diabetes mellitus Current Visit: No Status: Chronic Assessment and plan: Appears moderately controlled at home with A1c last year 7.9%, we will check A1c with a.m. labs. Uncontrolled here as she was given 125 mg of Solu-Medrol in the emergency department. Glucoses have been in excess of 500 since admission and her sliding scale has been adjusted several times. Glucose slowly trending down over today goal is to decrease by no more than 100 per hour - Time Spent With Patient Greater than 35 minutes - Subjective Interval history: Patient seen and examined. On examination, patient initially asleep and awaken easily to voice. Patient's alert and oriented 3 but continues to fall asleep and sentence and during conversations. She complains of pain to her right shoulder at this time that she states is chronic. Her daughter is at the bedside with multiple questions, questions answered at this time. Patient states she is exhausted and sick of being sick in her words. She continues to endorse shortness of breath above her norm. - Constitutional Vitals: Temp Pulse Resp BP Pulse Ox 97.9 F 62 17 124/59 95 07/28/16 15:24 07/28/16 15:50 07/28/16 15:24 07/28/16 15:24 07/28/16 15:24 General appearance: Present: mild distress, A&O X 3, pleasant, answers questions appropriately - Head Head exam: Present: atraumatic, normocephalic - Eye Eye exam: Present: PERRL, conjuntiva pink, sclera anicteric Pupils: Present: PERRL - Neck Neck exam general surgery: Present: supple, trachea midline. Absent: lymphadenopathy - Respiratory Respiratory exam: Present: accessory muscle use, decreased breath sounds, respiratory distress, rhonchi. Absent: rales, wheezes - Cardiovascular Cardiovascular exam: Present: RRR, +S1, +S2. Absent: diastolic murmur, gallop, rubs, systolic murmur - GI/Abdominal GI/Abdominal exam: Present: normal bowel sounds, soft, no peritoneal signs. Absent: distended, tenderness - Extremities Exam Extremities exam: Present: warm, radial pulses palpable and symetrical. Absent : calf tenderness, cyanotic, pedal edema - Neurological Exam Neurological exam: Present: alert, CN II-XII intact, oriented X3, no focal deficits. Absent: pronater drift, facial droop, speech deficit - Skin Skin exam: Present: dry, intact, pallor, warm Internal Medicine: Result - Labs CBC & Chem 7: 07/28/16 04:10 07/28/16 04:10 Labs: Short CBC 07/28/16 Range/Units 04:10 WBC 6.5 (4.3-11.1) K/mcL Hgb 8.0 L (11.5-15.4) g/dL Hct 26.0 L (35.3-44.9) % Plt Count 373 (140-400) K/mcL Neutrophils # 5.9 (1.6-8.9) K/mcL BMP 07/28/16 04:10 Sodium 133 L Potassium 4.7 H Chloride 99 Carbon Dioxide 24 BUN 40 H Creatinine 2.02 H Glucose 591 H* Calcium 8.0 L - ABG Interpretation ABG results: PT/INR, D-dimer PT 11.7 Seconds (9.4-12.1) 07/27/16 13:03 - Impressions Impressions Chest CT 07/28/16 12:00 IMPRESSION: 1. Abnormal ground-glass opacity within the right upper lobe and lingula concerning for an atypical infectious process. A follow-up imaging is recommended after treatment to ensure resolution. 2. Centrilobular emphysematous changes. D/ / 07/28/2016 13:12:14 Juan A White MD / Wilma Valencia Interpreting Provider: Juan A White MD Consult Discharge Plan - Plan Referrals: Therese Garcia CNP [Primary Care Provider] -
[2016-07-28] MEDS: MethylPREDNISolone 40 MG/ML VIAL IVP SCH ×2 (17:50→23:14)
[2016-07-28] MEDS ORDERED: NON-FORMULARY MEDICATION 1 EACH EACH (Insulin Glargine,Hum.Rec.Anlog [Lantus Solostar] 8 U SQ SCH (18:00)
[2016-07-28 18:59] LABS: Adenovirus F 40/41 PCR Not detected (Not detect); Astrovirus PCR Not detected (Not detect); Campylobacter by PCR Not detected (Not detect); Cryptosporidium by PCR Not detected (Not detect); Cyclospora cayetanensis PCR Not detected (Not detect); E. coli O157 by PCR Not detected (Not detect); Entamoeba histolytica PCR Not detected (Not detect); Enteroaggregative E.coli(EAEC) Not detected (Not detect); Enteropathogenic E.coli(EPEC) Not detected (Not detect); Enterotoxigenic E.coli (ETEC) Not detected (Not detect); Giardia lamblia PCR Not detected (Not detect); Norovirus GI/GII PCR Not detected (Not detect); Plesiomonas shigelloides PCR Not detected (Not detect); Rotavirus A PCR Not detected (Not detect); Salmonella PCR Not detected (Not detect); Sapovirus PCR Not detected (Not detect); Shig/EnteroinvasiveE coli EIEC Not detected (Not detect); Shigalike tox-prod E coli STEC Not detected (Not detect); Vibrio PCR Not detected (Not detect); Vibrio cholerae PCR Not detected (Not detect); Yersinia enterocolitica PCR Not detected (Not detect)
[2016-07-28] MEDS: Loratadine 10 MG TABLET PO SCH (20:17)
[2016-07-29] MEDS: Ipratropium/Albuterol Neb 3 ML IH SCH ×2 (04:02→10:25)
[2016-07-29 04:33] LABS: Basophils % 0.1 %; Hematocrit 25.7 % (35.3-44.9); Hemoglobin 7.9 g/dL (11.5-15.4); Immature Granulocytes % 1.5 % (0-4); Lymphocytes # 0.5 K/mcL (0.6-4.6); Lymphocytes % 4.4 %; Mean Corpuscular HGB Conc 30.7 g/dL (31.6-35.5); Mean Corpuscular Hemoglobin 26.6 pg (28.0-33.3); Mean Corpuscular Volume 86.5 fL (83.0-100.0); Mean Platelet Volume 9.4 fL (9.4-12.4); Monocytes # 0.1 K/mcL (0.0-1.3); Monocytes % 1.2 %; Neutrophils # 9.8 K/mcL (1.6-8.9); Platelet Count 430 K/mcL (140-400); Red Blood Count 2.97 M/mcL (3.82-4.97); Red Cell Distribution Width 15.4 % (11.5-14.5); Segmented Neutrophils % 92.8 %
[2016-07-29 04:51] LABS: Albumin 2.5 g/dL (3.5-5.0); Calcium 8.7 mg/dL (8.6-10.8); Phosphorous 3.8 mg/dL (2.3-4.7); Potassium 5.2 mEq/L (3.5-4.5)
[2016-07-29] MEDS: cloNIDine HCl 0.1 MG TABLET PO SCH ×2 (06:05→14:26)
[2016-07-29] MEDS ORDERED: Famotidine 20 MG TABLET PO SCH (07:30)
--- NOTE | 2016-07-29 08:09 | Pulmonology Consult Note ---
<Pricilla Bernabe - Last Filed: 07/29/16 08:33> Date of Encounter: 07/29/16 Time of Encounter: 08:07 Assessment and Plan (1) Acute and chronic respiratory failure Current Visit: Yes Status: Chronic CT chest showed ground glass opacities in the RUL and lingula concerning for atypical pneumonia. Patient failed course of outpatient antibiotics and on conversation with her, she reports that she hasn't been back to baseline since having pneumonia end of last year. She does use supplemental oxygen outpatient. Given patients continue long course of shortness of breath and resistance to treatment, pulmonology was consulted for possible bronch. This morning, patient reports that she is starting to feel better. She is sitting up on the edge of the bed in no acute distress with no difficulty breathing. Despite lungs sounds overall good, patient is reporting symptoms of acute COPD exacerbation. Discussed with patient that doing a bronchoscopy while patient is currently in acute exacerbation would not be ideal. Also, if patient does begin to improve, she may not require a bronch at all. Will have patient get a CXR outpatient in 1 month and follow up at pulmonology clinic. Will discuss how that patient is feeling at that time and if a bronch would be indicated. Discussed all of this will patient and family; they expressed their understanding and agreement. Qualifiers: Respiratory failure complication: unspecified whether with hypoxia or hypercapnia Qualified Code(s): J96.20 - Acute and chronic respiratory failure , unspecified whether with hypoxia or hypercapnia (2) HCAP (healthcare-associated pneumonia) Current Visit: Yes Status: Acute CT chest showed ground glass opacities in the RUL and lingula concerning for atypical pneumonia. Patient failed course of outpatient antibiotics and on conversation with her, she reports that she hasn't been back to baseline since having pneumonia end of last year. Patient reports improvement. Recommend transitioning patient to PO antibiotics, possibly Augmentin for discharge. Continue O2 as needed, wean to baseline as tolerated. Continue bronchodilators and steroids for symptomatic control. (3) Acute exacerbation of chronic obstructive airways disease Current Visit: Yes Status: Acute Patient reports symptoms of COPD exacerbation with wheezing and shortness of breath worse than baseline. Will continue steroids, antibiotics and bronchodilators for treatment. History of Present Illness Reason for consult: dyspnea, cough, COPD, pneumonia Chief complaint: Shortness of breath History of present illness: Ms De La Cruz is a 76yo female with PMH including CHF, COPD, CKD, DM and CVA who presents from an F with progressive SOB despite outpatient treatment. Patient reports that over the last 2 weeks she has had worsening shortness of breath and fatigue. CXR done at the [facility] showed pneumonia and patient was started on Rocephin and Levaquin. However, after completing antibiotics, patient continued to feel weak, short of breath and have fevers Tmax 101. Here , patient was started on IV fluids, steroids, vancomycin and Azactam. Patient' s flu swab, legionella and strep pneumo all negative. CT chest showed ground glass opacities right upper lobe and lingula concerning for atypical pneumonia with centrilobular emphysematous changes. No mass or pleural effusion. On conversation with patient, while this has been a progressive, unrelenting course, she does state that she is feeling better today. She still reports wheezing and shortness of breath. The breathing treatments are helping. Patient states that she was not getting her breathing treatment scheduled at the [facility]. She is a former smoker of 3 pack per day up till last year. With history of COPD, patient uses albuterol rescue inhaler and symbicort with duoneb nebulizer at home. On exam today, patient lungs are slightly diminished on the right with fine crackles in the bases. No wheezing or respiratory distress. No pedal edema. Past Med Surg Social Fam HX - Past Medical History Medical history: CHF, COPD, CVA, diabetes, renal disease Psychiatric history: anxiety, depression - Past Surgical History Surgical History: cholecystectomy, hysterectomy - Social History Smoking Status: Former smoker Smokeless Tobacco Status: No Alcohol use: none Drug use: none - Family History Mother Family Member Ethnicity: Non- Living Status: Age at : 69 Cause of : colon cx Hx Family Cardiac Disorders: No Hx Family Respiratory Disorders: No Hx Family Cancer: Yes (colon) Father Living Status: Hx Family Cardiac Disorders: No Hx Family Respiratory Disorders: No Hx Family Cancer: Yes Hx Family GI Disorders: Yes Hx Family Endocrine Disorder: Yes Hx Family Neuromuscular Disorders: No Hx Family Neurologic Disorders: No Hx Family HEENT Disorders: No Hx Family Autoimmune Disorders: No Medications and Allergies Cetirizine HCl [Zyrtec] 10 mg PO HS 04/17/15 [History] Cholecalciferol (Vitamin D3) [Vitamin D3] 2,000 unit PO DAILY 04/17/15 [History] Glimepiride 4 mg PO QAM 04/17/15 [History] Insulin ASPART [NovoLOG] 2 - 10 unit SQ ACHS 04/17/15 [History] Promethazine [Phenergan] 25 mg PO Q8H PRN 04/17/15 [History] Donepezil HCl [Donepezil HCl Odt] 5 mg PO HS 06/08/15 [History] Albuterol Sulfate [Albuterol Inhaler] 2 puff IH Q6H PRN 10/12/15 [History] Furosemide [Lasix] 20 mg PO DAILY 10/12/15 [History] Omeprazole [PriLOSEC] 20 mg PO DAILY 10/12/15 [History] Oxycodone HCl/Acetaminophen [Percocet 5-325 mg Tablet] 1 each PO Q4H PRN [History] Amlodipine [Norvasc] 10 mg PO DAILY 01/26/16 [History] Ascorbate Calcium [Vitamin C] 500 mg PO DAILY 06/14/16 [History] Atorvastatin [Lipitor] 10 mg PO HS 06/14/16 [History] Calcitriol [Rocaltrol] 0.25 mcg PO DAILY 06/14/16 [History] Docusate [Colace] 100 mg PO DAILY PRN 06/14/16 [History] Guaifenesin [Mucinex] 600 mg PO Q12H PRN 06/14/16 [History] Linagliptin [Tradjenta] 5 mg PO DAILY 06/14/16 [History] Alendronate Sodium [Fosamax] 70 mg PO QWEEK 06/22/16 [History] Budesonide/Formoterol 80/4.5 [Symbicort 80/4.5] 2 puff IH Q12H 06/22/16 [ History] Calcium Carbonate [Calcium] 600 mg PO BID 06/22/16 [History] Albuterol Neb [Proventil Neb] 2.5 mg IH Q4H PRN 07/27/16 [History] Carvedilol 3.125 mg PO BID 07/27/16 [History] CloNIDine HCl 0.1 mg PO Q8H 07/27/16 [History] Famotidine [Pepcid] 20 mg PO BID 07/27/16 [History] Ipratropium/Albuterol Neb [Duoneb] 3 ml IH QID PRN 07/27/16 [History] Oseltamivir Phosphate [Tamiflu] 30 mg PO ONCE 07/27/16 [History] Promethazine HCl 12.5 mg PO Q6H PRN 07/27/16 [History] Sucralfate [Carafate] 1 gm PO QIDAC 07/27/16 [History] Acetaminophen w/Cod 300-30 mg [Tylenol w/Codeine #3] 1 tab PO Q6H PRN #20 tablet 07/29/16 [Rx] Doxycycline 100 mg PO BID #20 capsule 07/29/16 [Rx] Insulin ASPART [NovoLOG] 0 unit SQ TIDWM #3 mls 07/29/16 [Rx] Insulin Glargine,Hum.rec.anlog [Lantus Solostar] 10 unit SQ QPM #0 07/29/16 [Rx ] Insulin Glargine,Hum.rec.anlog [Lantus Solostar] 15 unit SQ QAM #0 07/29/16 [Rx ] Ipratropium/Albuterol Neb [Duoneb] 3 ml IH Q4HR PRN #100 inhsol 07/29/16 [Rx] MetroNIDAZOLE [Flagyl] 500 mg PO TID #21 tablet 07/29/16 [Rx] PredniSONE 10 mg PO DAILY #113 tablet 07/29/16 [Rx] Allergies aspirin [ASA] Allergy (Verified 05/18/16 13:40) Swelling of Lip/Tongue/Throat NSAIDS (Non-Steroidal Anti-Inflamma Allergy (Verified 05/18/16 13:40) Swelling of Lip/Tongue/Throat Penicillins Allergy (Verified 05/18/16 13:40) Hives iron Adverse Reaction (Verified 05/18/16 13:40) Unknown Push only All Systems: A 10-system review of systems was performed and is negative for pertinent findings except as documented above in the HPI. - Constitutional Constitutional: chills, fatigue, fever(s), lethargy - EENT Eyes: no loss of vision Nose, mouth and throat: no change in voice, no dizziness, no headache(s), no hoarseness - Cardiovascular Cardiovascular: dyspnea, dyspnea on exertion, no chest pain, no edema, no orthopnea, no palpitations, no paroxysmal nocturnal dyspnea - Respiratory Respiratory: cough, dyspnea, dyspnea on exertion, wheezing, no chest congestion , no excessive phlegm production, no change in phlegm color - Gastrointestinal Gastrointestinal: no abdominal pain, no diarrhea, no hematemesis, no hematochezia, no nausea, no vomiting - Genitourinary Genitourinary: no difficulty urinating - Neurological Neurological: no confusion, no dizziness, no numbness, no weakness Physical Examination Vital Signs: Vital Signs, Last 4 Hours Temp Pulse Resp BP Pulse Ox 07/29/16 05:11 97.8 F 72 16 127/67 93 L General appearance: no acute distress, alert Eyes: nonicteric ENT: oropharynx moist Neck: supple Effort: normal Inspection: normal Auscultation: right: diminished breath sounds, bilateral: rales Cardiovascular: regular rate and rhythm Gastrointestinal: normoactive bowel sounds, soft, non-tender Integumentary: normal Extremities: no cyanosis, no edema normal mental status mood appropriate, affect normal Results - Laboratory Findings CBC and BMP: 07/29/16 04:16 07/29/16 04:16 PT/INR, D-dimer PT 11.7 Seconds (9.4-12.1) 07/27/16 13:03 Abnormal lab findings: Abnormal lab results RBC 2.97 M/mcL (3.82-4.97) L 07/29/16 04:16 Hgb 7.9 g/dL (11.5-15.4) L 07/29/16 04:16 Hct 25.7 % (35.3-44.9) L 07/29/16 04:16 MCH 26.6 pg (28.0-33.3) L 07/29/16 04:16 MCHC 30.7 g/dL (31.6-35.5) L 07/29/16 04:16 RDW 15.4 % (11.5-14.5) H 07/29/16 04:16 Plt Count 430 K/mcL (140-400) H 07/29/16 04:16 Neutrophils # 9.8 K/mcL (1.6-8.9) H 07/29/16 04:16 Lymphocytes # 0.5 K/mcL (0.6-4.6) L 07/29/16 04:16 Sodium 133 mEq/L (136-145) L 07/29/16 04:16 Potassium 5.2 mEq/L (3.5-4.5) H 07/29/16 04:16 BUN 53 mg/dL (7-20) H D 07/29/16 04:16 Creatinine 2.20 mg/dL (0.57-1.11) H 07/29/16 04:16 Est GFR ( Amer) 26 (> 60) L 07/29/16 04:16 Est GFR (Non-Af Amer) 22 (> 60) L 07/29/16 04:16 Glucose 454 mg/dL (70-99) H 07/29/16 04:16 POC Glucose 453 (58-89) H* 07/29/16 08:00 Calculated Osmolality 310 (280-300) H 07/29/16 04:16 B-Natriuretic Peptide 300 pg/mL (0-100) H 07/27/16 13:03 Albumin 2.5 g/dL (3.5-5.0) L 07/29/16 04:16 Urine Protein 30 mg/dL (Neg-Trace) H 07/27/16 13:32 Ur Squamous Epith Cells Many per lpf (None-Few) H 07/27/16 13:32 - Diagnostic Findings Chest x-ray: report reviewed, image reviewed CT scan - chest: report reviewed, image reviewed Additional studies: Chest X-Ray 07/27/16 12:34 IMPRESSION: Multifocal bronchiolitis and bronchopneumonia throughout the chest bilaterally, with a small left pleural effusion. Overall interval worsening when compared to the previous examination. D/ / Lalo Weinstein MD / Lalo Weinstein MD Interpreting Provider: Lalo Weinstein MD Chest CT 07/28/16 12:00 IMPRESSION: 1. Abnormal ground-glass opacity within the right upper lobe and lingula concerning for an atypical infectious process. A follow-up imaging is recommended after treatment to ensure resolution. 2. Centrilobular emphysematous changes. D/ / 07/28/2016 13:12:14 Juan A White MD / Wilma Valencia Interpreting Provider: Juan A White MD - Clinical Findings Intake & Output: Intake & Output 07/28/16 07/29/16 07/29/16 23:59 07:59 15:59 Intake Total 580 / 580 Output Total 500 / 500 500 / 500 Balance 80 / 80 -500 / -500 Weight 86.092 kg Consult Discharge Plan - Plan Instructions: Doxycycline (By mouth), Acetaminophen/Codeine (By mouth), Prednisone (By mouth), Pneumonia (DC), Pneumonia (GEN) Additional Instructions: Follow up with primary care provider and pulmonology as scheduled Referrals: [facility] [Provider Group] - 08/10/16 2:30 pm Jin Lund MD [Partnered Physician] - Garcia,Therese Mccorimck CNP [Primary Care Provider] - 08/02/16 1:00 pm () Prescriptions: Ipratropium/Albuterol Neb [Duoneb] 3 ml IH Q4HR PRN #100 inhsol PRN Reason: Shortness Of Breath Acetaminophen w/Cod 300-30 mg [Tylenol w/Codeine #3] 1 tab PO Q6H PRN #20 tablet PRN Reason: Pain Doxycycline 100 mg PO BID #20 capsule Insulin ASPART [NovoLOG] 0 unit SQ TIDWM #3 mls MetroNIDAZOLE [Flagyl] 500 mg PO TID #21 tablet PredniSONE 10 mg PO DAILY #113 tablet <Jin Lund - Last Filed: 07/29/16 16:24> All Systems: A 10-system review of systems was performed and is negative for pertinent findings except as documented above in the HPI. Physical Examination Vital Signs: Vital Signs, Last 4 Hours Temp Pulse Resp BP Pulse Ox 07/29/16 15:05 97.8 F 77 16 149/74 93 L Results - Laboratory Findings CBC and BMP: 07/29/16 04:16 07/29/16 04:16 PT/INR, D-dimer PT 11.7 Seconds (9.4-12.1) 07/27/16 13:03 Abnormal lab findings: Abnormal lab results RBC 2.97 M/mcL (3.82-4.97) L 07/29/16 04:16 Hgb 7.9 g/dL (11.5-15.4) L 07/29/16 04:16 Hct 25.7 % (35.3-44.9) L 07/29/16 04:16 MCH 26.6 pg (28.0-33.3) L 07/29/16 04:16 MCHC 30.7 g/dL (31.6-35.5) L 07/29/16 04:16 RDW 15.4 % (11.5-14.5) H 07/29/16 04:16 Plt Count 430 K/mcL (140-400) H 07/29/16 04:16 Neutrophils # 9.8 K/mcL (1.6-8.9) H 07/29/16 04:16 Lymphocytes # 0.5 K/mcL (0.6-4.6) L 07/29/16 04:16 Sodium 133 mEq/L (136-145) L 07/29/16 04:16 Potassium 5.2 mEq/L (3.5-4.5) H 07/29/16 04:16 BUN 53 mg/dL (7-20) H D 07/29/16 04:16 Creatinine 2.20 mg/dL (0.57-1.11) H 07/29/16 04:16 Est GFR ( Amer) 26 (> 60) L 07/29/16 04:16 Est GFR (Non-Af Amer) 22 (> 60) L 07/29/16 04:16 Glucose 454 mg/dL (70-99) H 07/29/16 04:16 POC Glucose 472 (58-89) H* 07/29/16 12:08 Calculated Osmolality 310 (280-300) H 07/29/16 04:16 B-Natriuretic Peptide 300 pg/mL (0-100) H 07/27/16 13:03 Albumin 2.5 g/dL (3.5-5.0) L 07/29/16 04:16 Urine Protein 30 mg/dL (Neg-Trace) H 07/27/16 13:32 Ur Squamous Epith Cells Many per lpf (None-Few) H 07/27/16 13:32 - Clinical Findings Intake & Output: Intake & Output 07/29/16 07/29/16 07/29/16 07:59 15:59 23:59 Intake Total 135 / 135 Output Total 500 / 500 Balance -500 / -500 135 / 135 Weight 86.092 kg - Attending Attestation I examined this patient and my medical decision-making was reviewed with the LOW PRESSURE FIRER/PA/Advanced Practice Nurse/Resident Physician. I agree with the documented findings, disposition and treatment plan as described except to the extent set forth below. Patient seen and examined. Labs, radiology, chart personally reviewed. Agree with resident's history and physical, assessment, plan with following comments: STOCK TRADER: Patient follows commands, Pulmonary: Acceptable oxygenation and ventilation. Discussed with patient about bronchoscopy, however clinically she is feeling better and she can have a follow-up chest x-ray as outpatient and if there is not improvement then bronchoscopy can be done. Patient understand and agreed with the plan of care. This plan discussed with primary team. She can be treated as outpatient with oral antibiotics for about 7 days. Thank you for the consult and this was discussed with the family as well.
[2016-07-29] MEDS: Cholecalciferol (D-3) 1,000 UNIT TABLET PO SCH (08:38)
[2016-07-29] MEDS: Ascorbic Acid 500 MG TABLET PO SCH (08:38)
[2016-07-29] MEDS: amLODIPine 5 MG TABLET PO SCH (08:38)
[2016-07-29] MEDS: Furosemide 20 MG TABLET PO SCH (08:38)
[2016-07-29] MEDS: Lactobacillus 1 EACH CAP.SPRINK PO SCH (08:38)
[2016-07-29] MEDS: Aztreonam 1,000 MG in D5% in Water (Mini-Bag+) 100 ML IVPB SCH (08:39)
[2016-07-29] MEDS: Insulin DETEMIR 100 UNIT/ML X5UNITS SQ SCH (08:39)
[2016-07-29] MEDS: Insulin LISPRO 300 UNITS/3 ML VIAL SQ SCH ×2 (08:39→12:24)
[2016-07-29] MEDS: MethylPREDNISolone 40 MG/ML VIAL IVP SCH (08:42)
[2016-07-29] MEDS: *HR* Acetaminophen w/Cod 300-30 mg 1 TAB TABLET PO PRN ×2 (08:43→14:24)
[2016-07-29] MEDS: Budesonide/Formoterol 80/4.5 MDI IH SCH (10:28)
--- NOTE | 2016-07-29 11:23 | Nephrology Progress Note ---
Date of Encounter: 07/29/16 Time of Encounter: 11:20 - Assessment and Plan (1) CKD (chronic kidney disease) stage 4, GFR 15-29 ml/min Current Visit: No Status: Chronic Renal function decreased slightly, but still around patient's baseline. Elevated potassium and low sodium; however, glucose is 454 (due to recent steroids). Continue renal protective plan. - Pulmonology recommendations including stopping vancomycin and aztreonam and switching to augmentin. - Hospitalist working to lower blood glucose levels. - Patient to follow low sodium diet. ---Informed patient during discussion today that Mrs. Wilson is not a great low salt substitute spice as it is high in potassium. - Drink between 1-2 L per day. No indication for EXERCISE INSTRUCT at this point in time. Thank you for consulting [facility]. (2) HCAP (healthcare-associated pneumonia) Current Visit: Yes Status: Acute (3) Insulin dependent type 2 diabetes mellitus Current Visit: No Status: Chronic (4) Acute and chronic respiratory failure Current Visit: Yes Status: Chronic Qualifiers: Respiratory failure complication: unspecified whether with hypoxia or hypercapnia Qualified Code(s): J96.20 - Acute and chronic respiratory failure , unspecified whether with hypoxia or hypercapnia (5) Acute exacerbation of chronic obstructive airways disease Current Visit: Yes Status: Acute Subjective Principal diagnosis: CKD stage 4 Interval history: Patient seen and examined. Sitting up on side of bed without dyspnea. Objective - Vital Signs Vital signs: Vital Signs Temp Pulse Resp BP Pulse Ox 07/29/16 11:08 97.6 F 72 18 139/70 95 07/29/16 08:25 98.0 F 82 20 138/81 94 L 07/29/16 05:11 97.8 F 72 16 127/67 93 L 07/29/16 04:02 16 92 L 07/28/16 23:05 97.6 F 67 16 114/67 94 L 07/28/16 22:33 18 95 07/28/16 20:39 97.9 F 67 16 135/78 95 07/28/16 20:29 95 07/28/16 17:10 18 93 L 07/28/16 15:50 62 07/28/16 15:24 97.9 F 58 17 124/59 95 07/28/16 12:32 98.0 F 67 16 148/80 95 Intake and Output 07/28/16 07/29/16 07/29/16 23:59 07:59 15:59 Intake Total 680 / 680 135 / 135 Output Total 500 / 500 500 / 500 Balance 180 / 180 -500 / -500 135 / 135 Intake: IV Fluids 200 / 200 Azactam 1,000 MG In 200 / 200 Dextrose 5% (Minibag+) 100 ML 100 ML @ 200 mls/ hr IVPB Q8HR [facility] Rx#: [id number] Oral 480 / 480 120 / 120 Other 15 15 Output: Urine 500 / 500 500 / 500 Other: Meal Dinner Breakfast Percent of Meal Consumed 100% 100% Weight 86.092 kg Blood Glucose* 260 453 Patient Weight 07/29/16 23:59 Weight 86.092 kg - General Appearance General appearance: Present: well-developed, well-nourished, appears started age EENT: Present: mucous membranes moist Neck: Present: no JVD, supple Respiratory: Present: clear Cardiology: Present: no murmurs, no rub, no gallops, no edema, regular rate, regular rhythm, normal S1, normal S2 Integumentary: Present: no rash, warm and dry Neurologic: Present: no focal deficit, alert and oriented x3, CN 3-12 intact Musculoskeletal: Present: no deformities, no erythema, no cyanosis, no clubbing Psychiatric: Present: mood/affect appropriate, cooperative - Lab 07/29/16 04:16 07/29/16 04:16 Most recent lab results Calcium 8.7 mg/dL (8.6-10.8) 07/29/16 04:16 Phosphorus 3.8 mg/dL (2.3-4.7) 07/29/16 04:16 Consult Discharge Plan - Plan Referrals: Therese Garcia VISION THERAPIST [Primary Care Provider] - (We have requested a hospital follow up with Therese Garcia. The office will call you at home with an appointment date and time.)
--- NOTE | 2016-07-29 13:13 | Discharge Summary ---
Date of Encounter: 07/29/16 Time of Encounter: 10:30 - Discharge Diagnosis (1) HCAP (healthcare-associated pneumonia) Priority: Primary Status: Acute Comments: Chest x-ray revealing multifocal bronchiolitis with bronchopneumonia and a small left pleural effusion that is worsened from prior examinations. Chest CT obtained without contrast which reveals abnormal groundglass opacities within the right upper lobe and lingula concerning for atypical infectious process. Given that the patient frequently falls asleep mid conversation, she is at high risk for aspiration. She failed outpatient treatment with IM ceftriaxone and levofloxacin 1 week. She was treated with vancomycin and aztreonam during this admission. Infectious disease, pulmonology and nephrology were onboard during this admission. Patient was much improved on day of discharge and a bronchoscopy was not indicated. She will follow up outpatient with pulmonology. Given her frequent readmissions, we will send her with a long steroid taper. (2) Acute exacerbation of chronic obstructive airways disease Priority: Primary Status: Resolved Comments: Patient denies shortness of breath above her normal day of discharge. (3) Former heavy tobacco smoker Priority: Secondary Status: Chronic Comments: Smoked 3-4 packs per day up until 1 year ago (4) Acute and chronic respiratory failure Priority: Secondary Status: Chronic Comments: No increased need for oxygen at this time, 2 L at home, 2 L here. Daughter is at the bedside and states the patient has been on continuous oxygen for the last couple months. Qualifiers: Respiratory failure complication: unspecified whether with hypoxia or hypercapnia Qualified Code(s): J96.20 - Acute and chronic respiratory failure , unspecified whether with hypoxia or hypercapnia (5) Failure of outpatient treatment Priority: Primary Status: Acute (6) CKD (chronic kidney disease) stage 4, GFR 15-29 ml/min Priority: Secondary Status: Chronic Comments: Remained consistent with her baseline throughout this admission, nephrology was on board during this admission, follow-up outpatient with nephrology. (7) Chronic blood loss anemia Priority: Secondary Status: Chronic Comments: Chronic, stable, consistent with the low end of her baseline, no signs of active bleeding. (8) Hyperkalemia Priority: Primary Status: Acute (9) Hypertension Priority: Secondary Status: Chronic Comments: Controlled, follow-up outpatient Qualifiers: Hypertension type: essential hypertension Qualified Code(s): I10 - Essential (primary) hypertension (10) History of CVA (cerebrovascular accident) Priority: Secondary Status: Resolved (11) DVT prophylaxis Priority: Primary Status: Acute Comments: IPC's ordered while admitted; pharmacologic prophylaxis contraindicated secondary to anemia (12) CHF (congestive heart failure) Priority: Secondary Status: Chronic Comments: Echocardiogram from last month revealing ejection fraction of 60-65% with mild diastolic dysfunction. Chronic diastolic heart failure. She is on furosemide at home and that was continued while admitted and she remained euvolemic on examination. No acute exacerbation. Of note, nephrology stating he increased her Lasix couple weeks ago. Renal function remained stable. Qualifiers: Congestive heart failure type: diastolic Congestive heart failure chronicity: chronic Qualified Code(s): I50.32 - Chronic diastolic (congestive ) heart failure (13) COPD (chronic obstructive pulmonary disease) Priority: Secondary Status: Chronic Qualifiers: COPD type: unspecified COPD Qualified Code(s): J44.9 - Chronic obstructive pulmonary disease, unspecified (14) Hyponatremia Priority: Primary Status: Acute (15) Insulin dependent type 2 diabetes mellitus Priority: Secondary Status: Chronic Comments: Appears moderately controlled at home with A1c last year 7.9%. Uncontrolled here as she was given IV Solu-Medrol. Her sliding scale was adjusted several times. - Discharge Medications Prescriptions: Acetaminophen w/Cod 300-30 mg [Tylenol w/Codeine #3] 1 tab PO Q6H PRN #20 tablet PRN Reason: Pain Insulin ASPART [NovoLOG] 0 unit SQ TIDWM #3 mls PredniSONE 10 mg PO DAILY #113 tablet Home Medications: Cetirizine HCl [Zyrtec] 10 mg PO HS 04/17/15 [History] Cholecalciferol (Vitamin D3) [Vitamin D3] 2,000 unit PO DAILY 04/17/15 [History] Glimepiride 4 mg PO QAM 04/17/15 [History] Insulin ASPART [NovoLOG] 2 - 10 unit SQ ACHS 04/17/15 [History] Promethazine [Phenergan] 25 mg PO Q8H PRN 04/17/15 [History] Donepezil HCl [Donepezil HCl Odt] 5 mg PO HS 06/08/15 [History] Albuterol Sulfate [Albuterol Inhaler] 2 puff IH Q6H PRN 10/12/15 [History] Furosemide [Lasix] 20 mg PO DAILY 10/12/15 [History] Omeprazole [PriLOSEC] 20 mg PO DAILY 10/12/15 [History] Oxycodone HCl/Acetaminophen [Percocet 5-325 mg Tablet] 1 each PO Q4H PRN [History] Amlodipine [Norvasc] 10 mg PO DAILY 01/26/16 [History] Ascorbate Calcium [Vitamin C] 500 mg PO DAILY 06/14/16 [History] Atorvastatin [Lipitor] 10 mg PO HS 06/14/16 [History] Calcitriol [Rocaltrol] 0.25 mcg PO DAILY 06/14/16 [History] Docusate [Colace] 100 mg PO DAILY PRN 06/14/16 [History] Guaifenesin [Mucinex] 600 mg PO Q12H PRN 06/14/16 [History] Linagliptin [Tradjenta] 5 mg PO DAILY 06/14/16 [History] Alendronate Sodium [Fosamax] 70 mg PO QWEEK 06/22/16 [History] Budesonide/Formoterol 80/4.5 [Symbicort 80/4.5] 2 puff IH Q12H 06/22/16 [ History] Calcium Carbonate [Calcium] 600 mg PO BID 06/22/16 [History] Albuterol Neb [Proventil Neb] 2.5 mg IH Q4H PRN 07/27/16 [History] Carvedilol 3.125 mg PO BID 07/27/16 [History] CloNIDine HCl 0.1 mg PO Q8H 07/27/16 [History] Famotidine [Pepcid] 20 mg PO BID 07/27/16 [History] Ipratropium/Albuterol Neb [Duoneb] 3 ml IH Q4HR 07/27/16 [History] Ipratropium/Albuterol Neb [Duoneb] 3 ml IH QID PRN 07/27/16 [History] Oseltamivir Phosphate [Tamiflu] 30 mg PO ONCE 07/27/16 [History] Promethazine HCl 12.5 mg PO Q6H PRN 07/27/16 [History] Sucralfate [Carafate] 1 gm PO QIDAC 07/27/16 [History] Acetaminophen w/Cod 300-30 mg [Tylenol w/Codeine #3] 1 tab PO Q6H PRN #20 tablet 07/29/16 [Rx] Insulin ASPART [NovoLOG] 0 unit SQ TIDWM #3 mls 07/29/16 [Rx] Insulin Glargine,Hum.rec.anlog [Lantus Solostar] 10 unit SQ QPM #0 07/29/16 [Rx ] Insulin Glargine,Hum.rec.anlog [Lantus Solostar] 15 unit SQ QAM #0 07/29/16 [Rx ] PredniSONE 10 mg PO DAILY #113 tablet 07/29/16 [Rx] Allergies/Adverse Reactions: Allergies aspirin [ASA] Allergy (Verified 05/18/16 13:40) Swelling of Lip/Tongue/Throat NSAIDS (Non-Steroidal Anti-Inflamma Allergy (Verified 05/18/16 13:40) Swelling of Lip/Tongue/Throat Penicillins Allergy (Verified 05/18/16 13:40) Hives iron Adverse Reaction (Verified 05/18/16 13:40) Unknown Push only Procedures/tests Complete & Pending: Procedures Performed prior 72 hours Category Date Time Status CT chest wo con [CT] Routine Cat Scan 07/28/16 12:00 Completed Date of admission: 07/27/16 22:50 Primary care physician: Therese Garcia CNP Consults: 07/28/16 12:51 Consult to Occupational Therapy [CONS] Routine Comment: Evaluate, develop and implement POC Consult to Physical Therapy [CONS] Routine Comment: Evaluate, develop and implement POC Consult to Refractory Products Supervisor [CONS] Routine Reason for SW Consult: inpat rehab at [facility] x1 month- daughter stating they may not want to return there. 07/28/16 16:19 Consult to Infectious Diseases [CONS] Routine Consulting Provider: Infectious Disease Nicole Reason for Consult: atypical pna failed outpt therapy with rocephin and levofloxacin x1 week. On vanc and aztreonam. Please eval and advise Time Notified: 16:20 Call Completed: Yes Consult to Pulmonology [CONS] Routine Consulting Provider: Pulm Crit Care & Sleep Nicole Reason for Consult: fmr 3ppd smoker on 02 at home. at SNF for rehab- dx'd pna last week and treated with IM rocephin and levflox x1 week. Remains with atypical pna. Bronch indicated? On vanc and aztreonam now. CKD4 too but stable. Time Notified: 16:21 Call Completed: Yes 07/29/16 11:43 Consult to Radio Survey Worker [CONS] Routine Comment: Discharging clinician: Fiorella Carr Anticipated date of discharge: 07/29/16 (OT/PT rec outpatient therapy) - Patient Status Disposition: Home, Self-Care Condition: Fair Functional capacity at discharge: independent ambulation (walker at times) Overall status at discharge: patient is progressing back to baseline - Discharge Instructions Follow Up With: Therese Garcia CNP [Primary Care Provider] - 08/02/16 1:00 pm () Jin Lund MD [Partnered Physician] - Additional Instructions: Follow up with primary care provider and pulmonology as scheduled - Diet and Activity Activity: increase activity as tolerated, wear oxygen at all times Diet: diabetic diet, low fat, low cholesterol, low salt diet, other (1-2L per day of fluids) Hospital course: Ms. Parks is a 76 year old female with past medical issues based on her current failure, prior CVA 2, diabetes, chronic kidney disease stage IV, COPD on 2 L per nasal cannula at home, anemia of chronic disease, breast cancer, status post cholecystectomy and hysterectomy, former heavy tobacco abuse smoking 3-4 packs per day up until last year. Patient is currently a resident at [facility] for inpatient rehabilitation after she was admitted for pneumonia. She has currently been at the extended care facility for one month. Last week while at the [facility], she had a chest x-ray that revealed pneumonia so she was treated with IM Rocephin for 7 days as well as Levaquin by mouth for 7 days and after she completed this treatment, she continued to feel weak and became febrile for 2 days and also experiencing increased shortness of breath and wheezing prompting her presentation to the emergency department. Given that she had failed outpatient treatment, she was started on IV aztreonam and vancomycin and admitted to the hospitalist service for further evaluation and management. Chest x-ray consistent with bronchopneumonia. Patient had a chest CT which revealed groundglass opacities in the right upper lobe and lingula consistent with atypical pneumonia. Given that she was admitted for pneumonia several months ago and has been in inpatient rehabilitation since that time, pulmonology was brought on board for possible consideration of a bronchoscopy. However, patient's symptoms and respiratory status improved greatly over the course of her 3 day admission and a bronchoscopy was not warranted. Pulmonology recommended switching her to oral antibiotics and having her follow up outpatient with them. Augmentin was recommended however she has a pcn allergy. She was sent home on Doxycycline and will followup in one month for a repeat CXR and will see pulmonology at that time. She remained hemodynamically stable throughout this admission. She did not require increased oxygen during this admission and was on her baseline 2 L per nasal cannula continuously. Her renal functioning also remained stable and nephrology was on board during this admission as well. Regarding her heart failure, she was euvolemic on examination throughout this admission. She was seen by nephrology couple weeks prior to this presentation and her furosemide dosage was increased and her lower extremity edema had resolved. Of note, given that she was on Solu-Medrol , she was hyperglycemic during this admission and since she is going home on a 3 -4 week taper of prednisone, her sliding scale and basal insulin dosages were increased for home. Her daughter is a nurse and lives with her and takes care of the patient's medications. She was seen and evaluated by occupational and physical therapy who recommended outpatient therapy that will need to be set up by her primary care provider. She was discharged home in stable condition with close outpatient follow-up recommended. ITS Impressions Chest X-Ray 07/27/16 12:34 IMPRESSION: Multifocal bronchiolitis and bronchopneumonia throughout the chest bilaterally, with a small left pleural effusion. Overall interval worsening when compared to the previous examination. D/ / Lalo Weinstein MD / Lalo Weinstein MD Interpreting Provider: Lalo Weinstein MD Chest CT 07/28/16 12:00 IMPRESSION: 1. Abnormal ground-glass opacity within the right upper lobe and lingula concerning for an atypical infectious process. A follow-up imaging is recommended after treatment to ensure resolution. 2. Centrilobular emphysematous changes. D/ / 07/28/2016 13:12:14 Juan A White MD / Wilma Valencia Interpreting Provider: Juan A White MD - Time Spent with Patient Total time spent providing and/or coordinating discharge services: - Constitutional Vitals: Temp Pulse Resp BP Pulse Ox 97.6 F 72 18 139/70 95 07/29/16 11:08 07/29/16 11:08 07/29/16 11:08 07/29/16 11:08 07/29/16 11:08 General appearance: Present: A&O X 3, pleasant, no acute distress, answers questions appropriately - Head Head exam: Present: atraumatic, normocephalic - Eye Eye exam: Present: PERRL, conjuntiva pink, sclera anicteric Pupils: Present: PERRL - Neck Neck exam general surgery: Present: supple, trachea midline. Absent: lymphadenopathy - Respiratory Respiratory exam: Present: decreased breath sounds (fair to good aeration). Absent: accessory muscle use, rales, respiratory distress, rhonchi, wheezes - Cardiovascular Cardiovascular exam: Present: RRR, +S1, +S2. Absent: diastolic murmur, gallop, rubs, systolic murmur - GI/Abdominal GI/Abdominal exam: Present: normal bowel sounds, soft, no peritoneal signs. Absent: distended, tenderness - Extremities Exam Extremities exam: Present: warm, radial pulses palpable and symetrical. Absent : calf tenderness, cyanotic, pedal edema - Neurological Exam Neurological exam: Present: alert, CN II-XII intact, oriented X3, no focal deficits, strengths equal and symetr throughout. Absent: pronater drift, facial droop, speech deficit - Skin Skin exam: Present: dry, intact, normal color, warm
[2016-07-29 15:05] VITALS: BP 149/74
[2016-07-29] MEDS ORDERED: Aminoglycoside Consult 1 EACH MC ONE (16:51)
== END 2016-07-29 16:52 | disposition home or self-care (01) | DRG 140 ==
LOC: EMEROO 12:22 → 3BNU 12:22
PROVIDERS: ADMIT Internal Medicine; ATTEND Nurse Practitioner Family

== ENCOUNTER 2016-08-22 12:40 | Inpatient (IN) ==
[2016-08-22] MEDS ORDERED: methylPREDNISolone 125 MG/2 ML VIAL IVP ONE (14:45)
[2016-08-22] MEDS ORDERED: Ipratropium/Albuterol Neb 3 ML IH ONE (14:45)
[2016-08-22 14:51] LABS: Basophils % 0.1 %; Eosinophils # 0.3 K/mcL (0.0-0.6); Eosinophils % 3.5 %; Hematocrit 34.1 % (35.3-44.9); Hemoglobin 10.4 g/dL (11.5-15.4); Immature Granulocytes % 1.5 % (0-4); Lymphocytes # 0.4 K/mcL (0.6-4.6); Lymphocytes % 4.3 %; Mean Corpuscular HGB Conc 30.5 g/dL (31.6-35.5); Mean Corpuscular Hemoglobin 26.9 pg (28.0-33.3); Mean Corpuscular Volume 88.3 fL (83.0-100.0); Mean Platelet Volume 9.6 fL (9.4-12.4); Monocytes # 0.5 K/mcL (0.0-1.3); Monocytes % 5.4 %; Neutrophils # 7.8 K/mcL (1.6-8.9); Platelet Count 200 K/mcL (140-400); Red Blood Count 3.86 M/mcL (3.82-4.97); Red Cell Distribution Width 17.3 % (11.5-14.5); Segmented Neutrophils % 85.2 %
[2016-08-22 15:02] LABS: Calcium 9.3 mg/dL (8.6-10.8); Potassium 4.2 mEq/L (3.5-4.5)
--- NOTE | 2016-08-22 15:29 | Emergency Department Note ---
Disposition Clinical Impression: Shortness of breath, Elevated troponin, COPD exacerbation, HCAP (healthcare- associated pneumonia), Hypoxia Disposition: Admitted As Inpatient Time of Disposition: 15:35 SOB HPI - General Chief Complaint: ED Shortness of Breath/Dyspnea Stated Complaint: COPD, cough/LISHA Time Seen by Provider: 08/22/16 14:29 Source: patient, family Mode of arrival: ambulatory Limitations: no limitations Nursing Notes Reviewed: Yes Vital Signs Reviewed: Yes - History of Present Illness Patient is a 76-year-old female with past medical history of CHF, COPD, diabetes , CKD. She presents today due to shortness breath. Patient was recently discharged from the hospital due to pneumonia. She was sent home with a steroid taper. She also uses oxygen occasionally PRN at home. The past couple days, the patient is near the end of her prednisone taper and she is getting more short of breath. She has been taking her regularly prescribed inhalers of albuterol, duonebs, Symbicort. She is getting progressively more short of breath, has some similar chest pain only when coughing. She feels overall weak. Denies any resting chest pain, nausea, vomiting, abdominal pain, fevers, diarrhea. Daughter states that the patient oxygen saturation was as low as 88% home without oxygen. - Related Data Home Medications Medication Instructions Recorded Confirmed Cetirizine HCl [Zyrtec] 10 mg PO HS 04/17/15 08/22/16 Cholecalciferol (Vitamin D3) 2,000 unit PO DAILY 04/17/15 08/22/16 [Vitamin D3] Glimepiride 4 mg PO QAM 04/17/15 08/22/16 Promethazine [Phenergan] 12.5 - 25 mg PO Q6-8H PRN 04/17/15 08/22/16 Albuterol Sulfate [Albuterol 2 puff IH Q6H PRN 10/12/15 08/22/16 Inhaler] Furosemide [Lasix] 20 mg PO DAILY 10/12/15 08/22/16 Omeprazole [PriLOSEC] 20 mg PO DAILY 10/12/15 08/22/16 Amlodipine [Norvasc] 10 mg PO DAILY 01/26/16 08/22/16 Ascorbate Calcium [Vitamin C] 500 mg PO DAILY 06/14/16 08/22/16 Atorvastatin [Lipitor] 10 mg PO HS 06/14/16 08/22/16 Calcitriol [Rocaltrol] 0.25 mcg PO DAILY 06/14/16 08/22/16 Docusate [Colace] 100 mg PO DAILY PRN 06/14/16 08/22/16 Guaifenesin [Mucinex] 600 mg PO Q12H PRN 06/14/16 08/22/16 Linagliptin [Tradjenta] 5 mg PO DAILY 06/14/16 08/22/16 Alendronate Sodium [Fosamax] 70 mg PO QWEEK 06/22/16 08/22/16 Budesonide/Formoterol 80/4.5 2 puff IH Q12H 06/22/16 08/22/16 [Symbicort 80/4.5] Calcium Carbonate [Calcium] 600 mg PO BID 06/22/16 08/22/16 Albuterol Neb [Proventil Neb] 2.5 mg IH Q4H PRN 07/27/16 08/22/16 Carvedilol 3.125 mg PO BID 07/27/16 08/22/16 CloNIDine HCl 0.1 mg PO Q8H 07/27/16 08/22/16 Famotidine [Pepcid] 20 mg PO BID 07/27/16 08/22/16 Sucralfate [Carafate] 1 gm PO ACHS 07/27/16 08/22/16 HYDROcodone/Acet 7.5/325 mg [[place] 1 tab PO Q6H PRN 08/02/16 08/22/16 7.5-325 mg] Insulin ASPART [NovoLOG] 6 - 18 unit SQ ACHS 08/02/16 08/22/16 Insulin Glargine,Hum.rec.anlog 10 unit SQ QAM 08/02/16 08/22/16 [Lantus Solostar] Acetaminophen w/Cod 300-30 mg 1 each PO Q4H PRN 08/15/16 08/22/16 [Tylenol w/Codeine #3] Clopidogrel [Plavix] 75 mg PO DAILY 08/15/16 08/22/16 PredniSONE 10 mg PO TAPER 08/15/16 08/22/16 Donepezil HCl [Aricept] 5 mg PO HS 08/22/16 08/22/16 Insulin Glargine,Hum.rec.anlog 8 unit SQ QPM 08/22/16 08/22/16 [Lantus Solostar] Ipratropium/Albuterol Neb [Duoneb] 3 ml IH Q4HR 08/22/16 08/22/16 Ipratropium/Albuterol Neb [Duoneb] 3 ml IH QID PRN 08/22/16 08/22/16 Iron Polysaccharide Complex [Pro 180 mg PO DAILY 08/22/16 08/22/16 Fe] Letrozole [Femara] 2.5 mg PO DAILY 08/22/16 08/22/16 Oxycodone HCl/Acetaminophen 1 each PO Q4H PRN 08/22/16 08/22/16 [Percocet 5-325 mg Tablet] Allergies Allergy/AdvReac Type Severity Reaction Status Date / Time aspirin [ASA] Allergy Swelling Verified 08/18/16 15:30 of Lip/Tongue/Throat NSAIDS (Non-Steroidal Allergy Swelling Verified 08/18/16 15:30 Anti-Inflamma of Lip/Tongue/Throat Penicillins Allergy Hives Verified 08/18/16 15:30 iron AdvReac Unknown Verified 08/18/16 15:30 All systems ED: reviewed and negative except as stated. Constitutional: Denies: fever Cardiovascular: Denies: chest pain, palpitations Respiratory: Reports: dyspnea. Denies: cough, wheezes Gastrointestinal: Denies: abdominal pain, nausea, vomiting, diarrhea Genitourinary: Denies: urgency, dysuria Musculoskeletal: Denies: back pain Integumentary: Denies: rash Neurological: Denies: headache, weakness, numbness, paresthesias Past Medical History - Past Medical History Attestation: Yes The following information was validated with the patient. Source: patient Medical history: Reports: CHF, COPD, CVA, diabetes, renal disease Surgical history: Reports: cholecystectomy, hysterectomy Psychiatric history: Reports: anxiety, depression PULLER OUT history: Reports: no PULLER OUT history - Social History Smoking Status: Former smoker Smokeless Tobacco Status: No Alcohol use: Reports: none Drug use: Reports: none Physical Exam - General Limitations: no limitations General appearance: alert - Head Head exam: atraumatic, normocephalic, normal inspection - Eye Eye exam: Present: normal appearance, PERRL, EOMI - ENT ENT exam: normal exam, normal oropharynx, mucous membranes moist - Neck Neck exam: Present: normal inspection, full ROM, trachea midline - Chest Chest inspection: Present: normal inspection, symmetric chest wall rise - Respiratory Respiratory exam: Present: wheezes (inspiratory and expiratory, diminished lung sounds in all schwarz. ) - Cardiovascular Cardiovascular exam: Present: regular rate, normal rhythm, normal heart sounds - Abdominal Exam Abdominal exam: Present: soft, Non-Tender. Absent: tenderness, distention, guarding, rebound, rigidity - Extremities Exam Extremities exam: Present: normal inspection, full ROM. Absent: tenderness, pedal edema - Neurological Exam Neurological exam: Present: alert, oriented X3 - Psychiatric Psychiatric exam: Present: normal affect, normal mood - Skin Skin exam: Present: warm, dry, intact, normal color Course Course Narrative: Oxygen saturation was an upper 80s without oxygen. On 2 L nasal cannula, patient was satting 96-97%. Physical exam shows inspiratory and expiratory, diminished lung sounds in all schwarz. Duonebs and solumedrol ordered. EKG shows normal sinus rhythm with no acute ST changes. Basic lab work shows a CKD that is near baseline. Troponin elevated at 0.08. This likely secondary to left lingular pneumonia found on chest x-ray. Patient has an allergy to NSAIDs (lip swelling and throat swelling), aspirin not given. Patient was given vancomycin, meropenem, Levaquin for HCAP and admitted for pneumonia, hypoxia, COPD exacerbation, elevated trop. She could not be given zosyn due to penicillin allergy Vital Signs Temperature 98.6 F 08/22/16 13:15 Pulse Rate 85 08/22/16 13:15 Respiratory Rate 18 08/22/16 13:15 Blood Pressure 143/69 08/22/16 13:15 O2 Sat by Pulse Oximetry 93 08/22/16 13:15 Temperature 98.6 F 08/22/16 13:15 Pulse Rate 89 08/22/16 15:21 Respiratory Rate 22 08/22/16 15:21 Blood Pressure 136/81 08/22/16 15:21 O2 Sat by Pulse Oximetry 98 08/22/16 15:21 Oxygen Delivery Oxygen Delivery Nasal Cannula Shortness of Breath/Dyspnea - MDM Narrative Medical decision making narrative: Oxygen saturation was an upper 80s without oxygen. On 2 L nasal cannula, patient was satting 96-97%. Physical exam shows inspiratory and expiratory, diminished lung sounds in all schwarz. Duonebs and solumedrol ordered. EKG shows normal sinus rhythm with no acute ST changes. Basic lab work shows a CKD that is near baseline. Troponin elevated at 0.08. This likely secondary to left lingular pneumonia found on chest x-ray. Patient has an allergy to NSAIDs (lip swelling and throat swelling), aspirin not given. Patient was given vancomycin, meropenem, Levaquin for HCAP and admitted for pneumonia, hypoxia, COPD exacerbation, elevated trop. She could not be given zosyn due to penicillin allergy - Medical Records Medical records reviewed: Yes I reviewed the patient's medical records. - Lab Data Lab results reviewed: Yes I reviewed the patient's lab results. Result diagrams: 08/22/16 14:43 08/22/16 14:43 Lab Results 08/22/16 08/22/16 08/22/16 Range/Units 14:43 14:43 14:43 WBC 9.1 (4.3-11.1) K/mcL RBC 3.86 (3.82-4.97) M/mcL Hgb 10.4 L (11.5-15.4) g/dL Hct 34.1 L (35.3-44.9) % MCV 88.3 (83.0-100.0) fL MCH 26.9 L (28.0-33.3) pg MCHC 30.5 L (31.6-35.5) g/dL RDW 17.3 H (11.5-14.5) % Plt Count 200 (140-400) K/mcL MPV 9.6 (9.4-12.4) fL Immature Gran % 1.5 (0-4) % Seg Neutrophils % 85.2 % Lymphocytes % 4.3 % Monocytes % 5.4 % Eosinophils % 3.5 % Basophils % 0.1 % Neutrophils # 7.8 (1.6-8.9) K/mcL Lymphocytes # 0.4 L (0.6-4.6) K/mcL Monocytes # 0.5 (0.0-1.3) K/mcL Eosinophils # 0.3 (0.0-0.6) K/mcL Basophils # 0.0 (0.0-0.2) K/mcL Sodium 139 (136-145) mEq/L Potassium 4.2 (3.5-4.5) mEq/L Chloride 101 (98-109) mEq/L Carbon Dioxide 30 H (19-29) mEq/L BUN 80 H (7-20) mg/dL Creatinine 2.14 H (0.57-1.11) mg/dL Est GFR ( Amer) 27 L (> 60) Est GFR (Non-Af Amer) 23 L (> 60) BUN/Creatinine Ratio 37 H (6-26) Glucose 120 H (70-99) mg/dL Calculated Osmolality 313 H (280-300) Calcium 9.3 (8.6-10.8) mg/dL Troponin I 0.08 H* (0-0.03) ng/mL - Radiology Data Radiology results reviewed: Yes I reviewed the patient's radiology results. Chest X-Ray 08/22/16 13:19 IMPRESSION: Lingular airspace disease, likely atelectasis. Pneumonia cannot be excluded. D/ / Shahla Barahona Cha, MD / Shahla Barahona Cha, MD Interpreting Provider: Shahla Barahona Cha, MD - EKG Data EKG attestation: Yes I reviewed and interpreted this EKG. EKG results narrative: 08/22/2016 at 13:24. Rate 80. LA interval 127. QRS 91. QTC 384. Normal axis. No acute ST elevation or depression. Unchanged from previous EKG on 08/15 Shyann - Shyann Situation: Demographics, MOA Background: Presenting Complaint, Relevant PMH, Meds, & Allergies Assessment: Vital Signs, Course and respsone to treatment, Exam Concerns, Patient/Family Expectation, Pertinant Lab Results, Outstanding Labs Recommendation: Barrier(s) to disposition, Recommendation based on pending studies, treatments, or consults Shyann Report Given to: Dr. Marla Macias Time: 15:35 Attestation Statement - Attestation Attestation: I examined this patient and my medical decision-making was reviewed with the PRODUCT LISTER/PA/Advanced Practice Nurse/Resident Physician. I agree with the documented findings, disposition and treatment plan as described except to the extent set forth below. Patient in the emergency department with shortness of breath. Cough has been increasing since she was weaned off her steroids a few days ago. She is currently on 10 twice a day. Patient admitted about a month ago for similar symptoms and pneumonia. On examination she is visibly dyspneic with tachypnea and accessory muscle use. Satting well on a neb treatment. Lungs with wheezes and rhonchi. Plan. Patient has pneumonia. IV antibiotics for healthcare associated pneumonia. She does not meet sepsis criteria. patient admitted to medicine. Feeling better after nebs and steroids.
[2016-08-22] MEDS ORDERED: Levofloxacin 750 MG/150 ML 750 MG/150 ML BAG IVPB ONE (15:35)
[2016-08-22] MEDS ORDERED: Vancomycin 1,250 MG in D5% in Water 250 ML IVPB ONE (15:35)
[2016-08-22] MEDS ORDERED: Meropenem 1,000 MG in 0.9 % Sodium Chloride Mini Bag 100 ML IVPB ONE ×2 (15:36→18:00)
[2016-08-22] MEDS ORDERED: Naloxone 0.4 MG/ML INJ IVP PRN (16:26)
--- NOTE | 2016-08-22 16:26 | Internal Med History&Physical ---
Date of Encounter: 08/22/16 Time of Encounter: 16:26 Assessment and Plan (1) Acute exacerbation of chronic obstructive airways disease Current visit: No Status: Resolved Presented with worsening shortness of breath once her steroid was tapered. Recently admitted for pneumonia and has finished a course of antibiotics. Repeat chest x-ray shows left-sided atelectasis, no pneumonia. Does not have fever or leukocytosis. SHe reports better after starting IV steroids in the emergency. We will continue IV steroids and will probably need longer and gradual tapering of steroids this time. Continue breathing treatments and oxygen to maintain sats 88-92%. (2) CKD (chronic kidney disease) stage 4, GFR 15-29 ml/min Current visit: No Status: Chronic Stable, follows with Dr. Corona. Continue to monitor. (3) History of CVA (cerebrovascular accident) Current visit: No Status: Resolved (4) Acute and chronic respiratory failure Current visit: No Status: Chronic As in COPD exacerbation. Qualifiers: Respiratory failure complication: unspecified whether with hypoxia or hypercapnia Qualified Code(s): J96.20 - Acute and chronic respiratory failure , unspecified whether with hypoxia or hypercapnia Internal Medicine - H&P: HPI Chief complaint: sob Admitted From: Home Plans for Post Hospital Care: Home History of present illness: Ms. Parks is a 76 year old female with past medical history of CHF, COPD, diabetes, CKD. She presents today due to shortness breath. Patient was recently discharged from the hospital due to pneumonia. She was sent home with a steroid taper. She also uses oxygen occasionally PRN at home. The past couple days, the patient is near the end of her prednisone taper and she is getting more short of breath. She has been taking her regularly prescribed inhalers of albuterol, duonebs, Symbicort. She is getting progressively more short of breath, has some mild chest pain only when coughing. She feels overall weak. Denies any resting chest pain, nausea, vomiting, abdominal pain, fevers, diarrhea. Daughter states that the patient oxygen saturation was as low as 88% home without oxygen. she also finished her course of antibiotics around a week ago. The daughter reports that she has been relatively doing fine until the steroid taper hit 20 mg , thats when she started to have sob. she has been walking around this week and has not been sedentary. her Lasix was was recently increased to 20 twice a day by Dr. Corona, as per the daughter the leg swelling has improved. Past Med Surg Social Fam HX - Past Medical History Medical history: CHF, COPD, CVA, diabetes, renal disease Psychiatric history: anxiety, depression - Past Surgical History Surgical History: cholecystectomy, hysterectomy - Social History Smoking Status: Former smoker Smokeless Tobacco Status: No Alcohol use: none Drug use: none - Family History Mother Family Member Ethnicity: Non- Living Status: Hx Family Cardiac Disorders: No Hx Family Respiratory Disorders: No Hx Family Cancer: Yes (colon) Father Living Status: Hx Family Cardiac Disorders: No Hx Family Respiratory Disorders: No Hx Family Cancer: Yes Hx Family GI Disorders: Yes Hx Family Endocrine Disorder: Yes Hx Family Neuromuscular Disorders: No Hx Family Neurologic Disorders: No Hx Family HEENT Disorders: No Hx Family Autoimmune Disorders: No Internal Medicine - H&P: Meds Cetirizine HCl [Zyrtec] 10 mg PO HS 04/17/15 [History] Cholecalciferol (Vitamin D3) [Vitamin D3] 2,000 unit PO DAILY 04/17/15 [History] Glimepiride 4 mg PO QAM 04/17/15 [History] Promethazine [Phenergan] 12.5 - 25 mg PO Q6-8H PRN 04/17/15 [History] Albuterol Sulfate [Albuterol Inhaler] 2 puff IH Q6H PRN 10/12/15 [History] Furosemide [Lasix] 20 mg PO DAILY 10/12/15 [History] Omeprazole [PriLOSEC] 20 mg PO DAILY 10/12/15 [History] Amlodipine [Norvasc] 10 mg PO DAILY 01/26/16 [History] Ascorbate Calcium [Vitamin C] 500 mg PO DAILY 06/14/16 [History] Atorvastatin [Lipitor] 10 mg PO HS 06/14/16 [History] Calcitriol [Rocaltrol] 0.25 mcg PO DAILY 06/14/16 [History] Docusate [Colace] 100 mg PO DAILY PRN 06/14/16 [History] Guaifenesin [Mucinex] 600 mg PO Q12H PRN 06/14/16 [History] Linagliptin [Tradjenta] 5 mg PO DAILY 06/14/16 [History] Alendronate Sodium [Fosamax] 70 mg PO QWEEK 06/22/16 [History] Budesonide/Formoterol 80/4.5 [Symbicort 80/4.5] 2 puff IH Q12H 06/22/16 [ History] Calcium Carbonate [Calcium] 600 mg PO BID 06/22/16 [History] Albuterol Neb [Proventil Neb] 2.5 mg IH Q4H PRN 07/27/16 [History] Carvedilol 3.125 mg PO BID 07/27/16 [History] CloNIDine HCl 0.1 mg PO Q8H 07/27/16 [History] Famotidine [Pepcid] 20 mg PO BID 07/27/16 [History] Sucralfate [Carafate] 1 gm PO ACHS 07/27/16 [History] HYDROcodone/Acet 7.5/325 mg [[place] 7.5-325 mg] 1 tab PO Q6H PRN 08/02/16 [ History] Insulin ASPART [NovoLOG] 6 - 18 unit SQ ACHS 08/02/16 [History] Insulin Glargine,Hum.rec.anlog [Lantus Solostar] 10 unit SQ QAM 08/02/16 [ History] Acetaminophen w/Cod 300-30 mg [Tylenol w/Codeine #3] 1 each PO Q4H PRN 08/15/16 [History] Clopidogrel [Plavix] 75 mg PO DAILY 08/15/16 [History] PredniSONE 10 mg PO TAPER 08/15/16 [History] Donepezil HCl [Aricept] 5 mg PO HS 08/22/16 [History] Insulin Glargine,Hum.rec.anlog [Lantus Solostar] 8 unit SQ QPM 08/22/16 [History ] Ipratropium/Albuterol Neb [Duoneb] 3 ml IH Q4HR 08/22/16 [History] Ipratropium/Albuterol Neb [Duoneb] 3 ml IH QID PRN 08/22/16 [History] Iron Polysaccharide Complex [Pro Fe] 180 mg PO DAILY 08/22/16 [History] Letrozole [Femara] 2.5 mg PO DAILY 08/22/16 [History] Oxycodone HCl/Acetaminophen [Percocet 5-325 mg Tablet] 1 each PO Q4H PRN [History] Allergies aspirin [ASA] Allergy (Verified 08/18/16 15:30) Swelling of Lip/Tongue/Throat NSAIDS (Non-Steroidal Anti-Inflamma Allergy (Verified 08/18/16 15:30) Swelling of Lip/Tongue/Throat Penicillins Allergy (Verified 08/18/16 15:30) Hives iron Adverse Reaction (Verified 08/18/16 15:30) Unknown Push only All Systems PM: A 10-system review of systems was performed and is negative for pertinent findings except as documented above in the HPI. - Constitutional Vitals: Temp Pulse Resp BP Pulse Ox 98.6 F 89 22 136/81 98 08/22/16 13:15 08/22/16 15:21 08/22/16 15:21 08/22/16 15:21 08/22/16 15:21 General appearance: Present: A&O X 3, no acute distress Exam: Neck supple. Chest bilateral occasional wheezing, no crepitations. CVS S1-S2, no murmurs rubs or gallops. Abdomen soft, nontender, bowel sounds are present. Extremities mild pedal edema. Neuro no focal deficits, alert awake and oriented. Internal Med - H&P Results - Labs CBC & Chem 7: 08/22/16 14:43 08/22/16 14:43
[2016-08-22] MEDS ORDERED: D5% in Water 1,000 ML IVC PRN (16:29)
[2016-08-22] MEDS ORDERED: Dextrose Gel 15 GM PO PRN ×2 (16:29)
[2016-08-22] MEDS ORDERED: Budesonide/Formoterol 80/4.5 MDI IH SCH (16:30)
[2016-08-22] MEDS ORDERED: NON-FORMULARY MEDICATION 1 EACH EACH (Insulin Glargine,Hum.Rec.Anlog [Lantus Solostar] 8 U SQ SCH (18:00)
[2016-08-22] MEDS: Sucralfate 1 GM TABLET PO SCH ×2 (18:19→21:41)
[2016-08-22] MEDS: cloNIDine HCl 0.1 MG TABLET PO SCH ×2 (18:19→23:39)
[2016-08-22] MEDS: Insulin LISPRO 300 UNITS/3 ML VIAL SQ SCH (19:45)
[2016-08-22] MEDS: Ipratropium/Albuterol Neb 3 ML IH SCH (20:33)
[2016-08-22] MEDS ORDERED: Insulin DETEMIR 100 UNIT/ML X5UNITS SQ SCH (21:00)
[2016-08-22] MEDS ORDERED: Insulin LISPRO 300 UNITS/3 ML VIAL SQ SCH (21:00)
[2016-08-22] MEDS: Budesonide/Formoterol 80/4.5 MDI IH SCH (21:10)
[2016-08-22] MEDS ORDERED: *HR* HYDROmorphone (PF) 1 MG/ML SYRINGE IVP PRN (23:09)
[2016-08-22] MEDS ORDERED: traMADol 50 MG TABLET PO PRN (23:26)
[2016-08-22] MEDS: methylPREDNISolone 125 MG/2 ML VIAL IVP SCH (23:40)
[2016-08-23] MEDS: Ipratropium/Albuterol Neb 3 ML IH SCH ×6 (00:29→20:33)
[2016-08-23 04:05] LABS: Hematocrit 28.2 % (35.3-44.9); Hemoglobin 8.9 g/dL (11.5-15.4); Immature Granulocytes % 1.6 % (0-4); Lymphocytes # 0.3 K/mcL (0.6-4.6); Lymphocytes % 5.6 %; Mean Corpuscular HGB Conc 31.6 g/dL (31.6-35.5); Mean Corpuscular Hemoglobin 27.5 pg (28.0-33.3); Mean Platelet Volume 10.2 fL (9.4-12.4); Monocytes # 0.1 K/mcL (0.0-1.3); Neutrophils # 4.6 K/mcL (1.6-8.9); Platelet Count 187 K/mcL (140-400); Red Blood Count 3.24 M/mcL (3.82-4.97); Red Cell Distribution Width 17.2 % (11.5-14.5); Segmented Neutrophils % 90.8 %
[2016-08-23 04:21] LABS: Calcium 8.9 mg/dL (8.6-10.8); Potassium 4.8 mEq/L (3.5-4.5)
[2016-08-23] MEDS: *HR* Enoxaparin 30 MG/0.3 ML SYRINGE SQ SCH (06:28)
[2016-08-23] MEDS: amLODIPine 5 MG TABLET PO SCH (08:07)
[2016-08-23] MEDS: Ascorbic Acid 500 MG TABLET PO SCH (08:07)
[2016-08-23] MEDS: Sucralfate 1 GM TABLET PO SCH ×4 (08:08→21:29)
[2016-08-23] MEDS: cloNIDine HCl 0.1 MG TABLET PO SCH ×2 (08:08→16:38)
[2016-08-23] MEDS: methylPREDNISolone 125 MG/2 ML VIAL IVP SCH ×2 (08:11→16:17)
[2016-08-23] MEDS: Insulin LISPRO 300 UNITS/3 ML VIAL SQ SCH ×6 (08:18→21:36)
[2016-08-23] MEDS ORDERED: Insulin DETEMIR 100 UNIT/ML X5UNITS SQ SCH (09:00)
[2016-08-23] MEDS: Insulin DETEMIR 100 UNIT/ML X5UNITS SQ SCH ×2 (09:14→21:28)
--- NOTE | 2016-08-23 10:45 | Internal Med Progress Note ---
Date of Encounter: 08/23/16 Time of Encounter: 10:43 - Assessment and plan (1) Fall Current Visit: Yes Status: Acute Assessment and plan: Patient sustained a fall at home, ground-level due to dyspnea and hypoxia. She sustained blunt trauma to right knee and leg. X-ray right knee shows no acute fracture or abnormality. Pain control with when necessary oral tramadol and oxycodone. Patient is ambulatory with walker at home and currently does not receive any home health services. Qualifiers: Encounter type: initial encounter Qualified Code(s): W19.XXXA - Unspecified fall, initial encounter (2) Acute exacerbation of chronic obstructive airways disease Current Visit: Yes Status: Acute Assessment and plan: Patient was discharged about 3 weeks ago after treatment for pneumonia and acute COPD, on steroid taper. She started getting worse soon after completing her steroid taper per her daughter. She is currently responding well to IV steroids. Continue the same and scheduled bronchodilators and supplemental oxygen. (3) CKD (chronic kidney disease) stage 4, GFR 15-29 ml/min Current Visit: Yes Status: Chronic Assessment and plan: Follows with nephrology as an outpatient. Serum creatinine noted to be slightly worse from her baseline, 2.6 today. Continue to monitor closely and avoid nephrotoxic agents. (4) Hypertension Current Visit: Yes Status: Chronic Assessment and plan: Blood pressure noted to be fairly controlled, resume home medications. Qualifiers: Hypertension type: essential hypertension Qualified Code(s): I10 - Essential (primary) hypertension (5) History of CVA (cerebrovascular accident) Current Visit: Yes Status: Resolved Assessment and plan: Patient has had 2 recent ischemic strokes, uncertain etiology. Continue supportive care, she currently has no obvious hemiparesis. (6) Elevated troponin Current Visit: Yes Status: Acute Assessment and plan: Serum troponin noted to be 0.08, which is likely due to demand ischemia from underlying hypoxia and acute COPD. Continue telemetry monitoring, we will repeat troponins. (7) CHF (congestive heart failure) Current Visit: Yes Status: Chronic Assessment and plan: Not noted to be in acute exacerbation. Continue home medications. Qualifiers: Congestive heart failure type: diastolic Congestive heart failure chronicity: chronic Qualified Code(s): I50.32 - Chronic diastolic (congestive ) heart failure (8) Insulin dependent type 2 diabetes mellitus Current Visit: Yes Status: Chronic Assessment and plan: Accu-Chek blood glucose monitoring with basal bolus insulin regimen. Patient is noted to have hyperglycemia, will increase dose of sliding scale insulin and liver metastases. Diabetic diet. Patient is at risk for steroid-induced hyperglycemia. - Subjective Interval history: Feels better but continues to have hacking moist cough with no sputum production ; no fever/chills, chest pain; reports right knee pain due to fall yesterday at home; - Constitutional Vitals: Temp Pulse Resp BP Pulse Ox 97.8 F 76 20 146/77 95 08/23/16 06:59 08/23/16 06:59 08/23/16 06:59 08/23/16 06:59 08/23/16 06:59 General appearance: Present: A&O X 3, obese, answers questions appropriately - Respiratory Respiratory exam: Present: wheezes (B/L diffuse wheezing, worse on the left side ). Absent: accessory muscle use, rales, rhonchi - Cardiovascular Cardiovascular exam: Present: RRR, +S1, +S2. Absent: diastolic murmur, gallop, rubs, systolic murmur - GI/Abdominal GI/Abdominal exam: Present: normal bowel sounds, soft (obese), no peritoneal signs. Absent: distended, tenderness - Extremities Exam Extremities exam: Present: joint swelling (mild right knee lateral soft tissue swelling, tender), pedal edema (trace B/L), warm, radial pulses palpable and symetrical. Absent: calf tenderness, cyanotic Internal Medicine: Result - Labs CBC & Chem 7: 08/23/16 03:53 08/23/16 03:53 Labs: Short CBC 08/23/16 Range/Units 03:53 WBC 5.0 (4.3-11.1) K/mcL Hgb 8.9 L D (11.5-15.4) g/dL Hct 28.2 L (35.3-44.9) % Plt Count 187 (140-400) K/mcL Neutrophils # 4.6 (1.6-8.9) K/mcL BMP 08/23/16 03:53 Sodium 133 L Potassium 4.8 H Chloride 95 L Carbon Dioxide 27 BUN 85 H Creatinine 2.63 H Glucose 358 H Calcium 8.9 Consult Discharge Plan - Plan Referrals: Therese Garcia CNP [Primary Care Provider] - 08/25/16 3:00 pm ()
[2016-08-23] MEDS ORDERED: *HR* OxyCODONE/APAP 5/325 TABLET PO PRN (10:49)
[2016-08-23] MEDS: Budesonide/Formoterol 80/4.5 MDI IH SCH ×2 (11:20→20:33)
--- NOTE | 2016-08-23 16:40 | Electrocardiograph Report ---
[address] [address] Test Date: 2016-08-22 Pat Name: Dorothy Parks Department: 102 Room: [facility], [place] Gender: F [employer] Organist: Viviane : 1940 Requested By: Miya See Order Number: [id number] Reading MD: Edith Yost Measurements Intervals [place] Rate: 80 P: 58 WV: 127 QRS: 10 QRSD: 91 T: 73 QT: 349 QTc: 384 Interpretive Statements SINUS RHYTHM Electronically Signed On 08-23-2016 16:39:07 EDT by Edith Yost
[2016-08-24] MEDS: Ipratropium/Albuterol Neb 3 ML IH SCH ×7 (00:27→23:04)
[2016-08-24 05:32] LABS: Calcium 9.2 mg/dL (8.6-10.8)
[2016-08-24] MEDS: cloNIDine HCl 0.1 MG TABLET PO SCH ×3 (05:59→16:50)
[2016-08-24] MEDS: methylPREDNISolone 125 MG/2 ML VIAL IVP SCH ×4 (05:59→23:28)
[2016-08-24] MEDS: *HR* Enoxaparin 30 MG/0.3 ML SYRINGE SQ SCH (06:13)
[2016-08-24] MEDS: Budesonide/Formoterol 80/4.5 MDI IH SCH ×2 (07:45→20:19)
[2016-08-24] MEDS: Sucralfate 1 GM TABLET PO SCH ×4 (07:52→21:15)
[2016-08-24] MEDS: amLODIPine 5 MG TABLET PO SCH (07:52)
[2016-08-24] MEDS: Ascorbic Acid 500 MG TABLET PO SCH (07:52)
[2016-08-24] MEDS: Insulin LISPRO 300 UNITS/3 ML VIAL SQ SCH ×4 (07:53→21:18)
[2016-08-24] MEDS: Insulin DETEMIR 100 UNIT/ML X5UNITS SQ SCH (07:56)
[2016-08-24] MEDS ORDERED: Insulin DETEMIR 100 UNIT/ML X5UNITS SQ ONE (08:22)
--- NOTE | 2016-08-24 09:08 | Internal Med Progress Note ---
Date of Encounter: 08/24/16 Time of Encounter: 09:06 - Assessment and plan (1) Abdominal distention Current Visit: Yes Status: Acute Assessment and plan: Noted to have new onset abdominal distention with tympanic note with associated nausea. Mild ileus versus uremia. We will get abdominal x-ray. Continue the IV hydration, PPI and when necessary Zofran. (2) Fall Current Visit: Yes Status: Acute Assessment and plan: Patient sustained a fall at home, ground-level due to dyspnea and hypoxia. She sustained blunt trauma to right knee and leg. X-ray right knee shows no acute fracture or abnormality. Pain control with when necessary oral tramadol and oxycodone. Improving pain. Patient is ambulatory with walker at home and currently does not receive any home health services. Qualifiers: Encounter type: initial encounter Qualified Code(s): W19.XXXA - Unspecified fall, initial encounter (3) Acute exacerbation of chronic obstructive airways disease Current Visit: Yes Status: Acute Assessment and plan: Improving slowly but continues to have persistent cough. Continue scheduled bronchodilators, taper down IV steroids as tolerated. Continue inhaled corticosteroids and supplemental oxygen. Continue Mucinex and supportive care. (4) CKD (chronic kidney disease) stage 4, GFR 15-29 ml/min Current Visit: Yes Status: Chronic Assessment and plan: Patient is noted to have worsening serum creatinine along with elevated BUN at 100. Towards afternoon, patient is also noted to have nausea and abdominal distention. Bladder scan showed at least 450 mL of urine, placed Watkins catheter with 500 mL output so far. We will start gentle IV hydration due to underlying CHF and monitor urine output. Consult nephrology for further recommendations. Patient is noted to be on Lasix at home, which has been held since admission. (5) Hypertension Current Visit: Yes Status: Chronic Assessment and plan: Blood pressure noted to be well controlled. Continue current management. Qualifiers: Hypertension type: essential hypertension Qualified Code(s): I10 - Essential (primary) hypertension (6) History of CVA (cerebrovascular accident) Current Visit: Yes Status: Resolved (7) Elevated troponin Current Visit: Yes Status: Acute Assessment and plan: Serum troponin noted to be 0.08, which is likely due to demand ischemia from underlying hypoxia and acute COPD. repeat troponin noted to be trending down. (8) CHF (congestive heart failure) Current Visit: Yes Status: Chronic Qualifiers: Congestive heart failure type: diastolic Congestive heart failure chronicity: chronic Qualified Code(s): I50.32 - Chronic diastolic (congestive ) heart failure (9) Insulin dependent type 2 diabetes mellitus Current Visit: Yes Status: Chronic Assessment and plan: Patient is noted to have steroid-induced hyperglycemia. We will increase dose of basal and sliding scale insulin. Continue Accu-Chek blood glucose monitoring. Diabetic diet. - Subjective Interval history: Feels better. No fever/chills, improving dyspnea and cough; still has moist hacking cough; no chest pain, palpitations; - Constitutional Vitals: Temp Pulse Resp BP Pulse Ox 97.8 F 80 18 154/78 94 08/24/16 07:31 08/24/16 07:31 08/24/16 07:45 08/24/16 07:31 08/24/16 07:45 General appearance: Present: A&O X 3, obese, answers questions appropriately - Respiratory Respiratory exam: Present: CTAB (coarse breath sounds B/L, improved wheezing). Absent: accessory muscle use, rales, rhonchi, wheezes - Cardiovascular Cardiovascular exam: Present: RRR, +S1, +S2. Absent: diastolic murmur, gallop, rubs, systolic murmur - GI/Abdominal GI/Abdominal exam: Present: normal bowel sounds, soft, no peritoneal signs. Absent: distended, tenderness - Extremities Exam Extremities exam: Present: full ROM, pedal edema (trace B/L ankle edema), warm, radial pulses palpable and symetrical. Absent: calf tenderness, cyanotic Internal Medicine: Result - Labs CBC & Chem 7: 08/23/16 03:53 08/24/16 04:44 Labs: BMP 08/24/16 04:44 Sodium 137 Potassium 4.0 Chloride 99 Carbon Dioxide 27 BUN 100 H Creatinine 2.78 H Glucose 428 H Calcium 9.2 Cardiac Enzymes 08/23/16 Range/Units 18:14 Troponin I 0.04 H* (0-0.03) ng/mL - Impressions Impressions Knee X-Ray 08/23/16 10:46 IMPRESSION: No acute osseous abnormality of the right knee. D/ / Lalo Diego MD / Lalo Diego MD Interpreting Provider: Lalo Diego MD Consult Discharge Plan - Plan Referrals: Therese Garcia CNP [Primary Care Provider] - 08/25/16 3:00 pm ()
[2016-08-24] MEDS: Ondansetron 4 MG/2 ML VIAL IVP PRN (14:04)
[2016-08-24] MEDS: 0.9 % Sodium Chloride 1,000 ML IVC SCH (14:08)
[2016-08-24 14:40] LABS: Protein/Creatinine Ratio,Urine 0.42 mg/mg (0-0.20)
[2016-08-24] MEDS ORDERED: *HR* Promethazine 25 MG/ML VIAL IVP PRN (18:47)
[2016-08-24] MEDS ORDERED: Insulin DETEMIR 100 UNIT/ML X5UNITS SQ SCH (21:00)
[2016-08-25] MEDS: cloNIDine HCl 0.1 MG TABLET PO SCH ×4 (00:43→16:24)
[2016-08-25] MEDS: Ipratropium/Albuterol Neb 3 ML IH SCH ×6 (03:53→22:54)
[2016-08-25] MEDS: *HR* Enoxaparin 30 MG/0.3 ML SYRINGE SQ SCH (05:15)
[2016-08-25 05:54] LABS: Calcium 8.8 mg/dL (8.6-10.8); Magnesium 1.9 mg/dL (1.6-2.6); Potassium 4.3 mEq/L (3.5-4.5)
[2016-08-25] MEDS: 0.9 % Sodium Chloride 1,000 ML IVC SCH (06:22)
[2016-08-25] MEDS: Insulin LISPRO 300 UNITS/3 ML VIAL SQ SCH ×5 (07:32→22:27)
[2016-08-25] MEDS: Sucralfate 1 GM TABLET PO SCH ×4 (07:34→22:19)
[2016-08-25] MEDS: Ascorbic Acid 500 MG TABLET PO SCH ×2 (07:35→09:47)
[2016-08-25] MEDS: amLODIPine 5 MG TABLET PO SCH ×2 (07:35→09:47)
[2016-08-25] MEDS: Budesonide/Formoterol 80/4.5 MDI IH SCH ×2 (07:50→19:59)
[2016-08-25] MEDS: methylPREDNISolone 125 MG/2 ML VIAL IVP SCH (08:20)
[2016-08-25] MEDS ORDERED: Insulin DETEMIR 100 UNIT/ML X5UNITS SQ SCH (09:00)
[2016-08-25] MEDS ORDERED: methylPREDNISolone 125 MG/2 ML VIAL IVP SCH (09:15)
--- NOTE | 2016-08-25 09:25 | Nephrology Consult Note ---
<Chris Lamas - Last Filed: 08/25/16 13:20> Date of Encounter: 08/25/16 Time of Encounter: 09:05 Assessment and Plan (1) Acute kidney injury superimposed on CKD Current Visit: No Status: Acute Patient has chronic kidney disease stage IV baseline, GFR around 25. Patient presented with GFR around 23, but over the next 2 days proceeded to progressively declined to 17. Today her kidney function appeared to improve with GFR currently around 21. She has fully catheter placed on 08/24/16 with immediate relief of 500 mL urine, previously patient had not had any documented urine output and patient reports having significantly decreased urine output. Her acutely worsening kidney function is likely multifactorial with reported decreased by mouth intake over the past few days and dehydration. She has been on prednisone and now solumedrol for her respiratory ailments which has likely caused some degree of her disproportionate increased in BUN over her SCr. She also appeared to improve after placement of the hart with reportedly having immediately urine output after placement, there might be some bit of post-renal contributions to her ELLE. Will obtain urine studies: including a UA, urine sodium and urine urea Obtain CPK Recommend continuing fluids and hart Will check urine eosinophils Continue to avoid potential nephrotoxins (2) Anemia Current Visit: No Status: Acute Patient has chronic anemia and is on Aranesp as an outpatient, but patient presented with a Hgb of 10.4 and it fell to 8.9 the following day. Recheck of patient CBC today shows a Hgb of 9.6 Iron studies performed earlier in the month show that she is not iron deficient Continue home aranesp Qualifiers: Anemia type: iron deficiency Iron deficiency anemia type: unspecified iron deficiency Qualified Code(s): D50.9 - Iron deficiency anemia, unspecified (3) CHF (congestive heart failure) Current Visit: Yes Status: Chronic Patient has a history of CHF with most recent echo performed in 06/24 showing EF of 60-65% with mild LV diastolic dysfunction. Will be gentle with IVF in order to avoid overload Qualifiers: Congestive heart failure type: diastolic Congestive heart failure chronicity: chronic Qualified Code(s): I50.32 - Chronic diastolic (congestive ) heart failure (4) COPD exacerbation Current Visit: Yes Status: Acute Continued management per primary team History of Present Illness - Reason for Consult Consult date: 08/25/16 Acute Kidney Injury, Chronic Kidney Disease Requesting physician: Elvira Miller - Chief Complaint Increased shortness of breath and hypoxia - History of Present Illness Mrs. Parks is a 76 year old woman with prior medical history of CVA, Insulin dependent diabetes mellitus, CHF (last echo 06/23/16 EF 60-65% with mild diastolic dysfunction), COPD, R. breast cancer (R breast masectomy in 11/20), and CKD IV (follows Dr. Corona and baseline GFR ~25) presented to [facility] on 08/22 after having continued shortness of breath at home. The nephrology team was consulted on 08/24/16 due to concerns of worsening renal function in the presence of CKD IV. She reports that she had begun having increased shortness of breath last Monday and that it had continued to worsen over the next week, prior to presentation to the hospital. Because of her history of COPD and recent hospitalizations for similar problems, she had been taking prednisone at home. This was not helping her shortness of breath and after having an episode where she became hypoxic to 86% when off her oxygen at home, her family decided to bring her back to the hospital. She reports that she had had a decreased appetite for several days prior to admission and was also having issues with bloating, nausea, abdominal pain whenever she eats. She also reports feeling dehydrated and not having much (if any) urine output for the first couple of days of her admission. She underwent a bladder scan yesterday afternoon after which a hart catheter was placed. The patient's daughter reports that after placement of a urinary catheter there was an immediate 500 ml urine. at 2300 the night of 08/24/16 she was having increased abdominal distension and was made NPO and continued on the fluids that she was on previously (60 ml/hr). When seen this morning, she is resting comfortably in bed with her daughter at bedside. She does not report any new concerns or complaints. She reports that she continues to feel dehydrated, but does state that the abdominal distension and nausea have improved. She reports continued dry cough, but denies chest pain. Past Med Surg Social Fam HX - Past Medical History Medical history: cancer (Right breast), CHF, COPD, CVA, diabetes, renal disease (CKD IV) Psychiatric history: anxiety, depression - Past Surgical History Surgical History: breast surgery (right masectomy 11/20), cholecystectomy, hysterectomy - Social History Smoking Status: Former smoker Smokeless Tobacco Status: No Alcohol use: none Drug use: none - Family History Mother Family Member Ethnicity: Non- Living Status: Hx Family Cardiac Disorders: No Hx Family Respiratory Disorders: No Hx Family Cancer: Yes (colon) Father Living Status: Hx Family Cardiac Disorders: No Hx Family Respiratory Disorders: No Hx Family Cancer: Yes Hx Family GI Disorders: Yes Hx Family Endocrine Disorder: Yes Hx Family Neuromuscular Disorders: No Hx Family Neurologic Disorders: No Hx Family HEENT Disorders: No Hx Family Autoimmune Disorders: No Medications and Allergies Cetirizine HCl [Zyrtec] 10 mg PO HS 04/17/15 [History] Cholecalciferol (Vitamin D3) [Vitamin D3] 2,000 unit PO DAILY 04/17/15 [History] Glimepiride 4 mg PO QAM 04/17/15 [History] Promethazine [Phenergan] 12.5 - 25 mg PO Q6-8H PRN 04/17/15 [History] Albuterol Sulfate [Albuterol Inhaler] 2 puff IH Q6H PRN 10/12/15 [History] Furosemide [Lasix] 20 mg PO DAILY 10/12/15 [History] Omeprazole [PriLOSEC] 20 mg PO DAILY 10/12/15 [History] Amlodipine [Norvasc] 10 mg PO DAILY 01/26/16 [History] Ascorbate Calcium [Vitamin C] 500 mg PO DAILY 06/14/16 [History] Atorvastatin [Lipitor] 10 mg PO HS 06/14/16 [History] Calcitriol [Rocaltrol] 0.25 mcg PO DAILY 06/14/16 [History] Docusate [Colace] 100 mg PO DAILY PRN 06/14/16 [History] Guaifenesin [Mucinex] 600 mg PO Q12H PRN 06/14/16 [History] Linagliptin [Tradjenta] 5 mg PO DAILY 06/14/16 [History] Alendronate Sodium [Fosamax] 70 mg PO QWEEK 06/22/16 [History] Budesonide/Formoterol 80/4.5 [Symbicort 80/4.5] 2 puff IH Q12H 06/22/16 [ History] Calcium Carbonate [Calcium] 600 mg PO BID 06/22/16 [History] Albuterol Neb [Proventil Neb] 2.5 mg IH Q4H PRN 07/27/16 [History] Carvedilol 3.125 mg PO BID 07/27/16 [History] CloNIDine HCl 0.1 mg PO Q8H 07/27/16 [History] Famotidine [Pepcid] 20 mg PO BID 07/27/16 [History] Sucralfate [Carafate] 1 gm PO ACHS 07/27/16 [History] HYDROcodone/Acet 7.5/325 mg [[place] 7.5-325 mg] 1 tab PO Q6H PRN 08/02/16 [ History] Insulin ASPART [NovoLOG] 6 - 18 unit SQ ACHS 08/02/16 [History] Insulin Glargine,Hum.rec.anlog [Lantus Solostar] 10 unit SQ QAM 08/02/16 [ History] Acetaminophen w/Cod 300-30 mg [Tylenol w/Codeine #3] 1 each PO Q4H PRN 08/15/16 [History] Clopidogrel [Plavix] 75 mg PO DAILY 08/15/16 [History] PredniSONE 10 mg PO TAPER 08/15/16 [History] Donepezil HCl [Aricept] 5 mg PO HS 08/22/16 [History] Insulin Glargine,Hum.rec.anlog [Lantus Solostar] 8 unit SQ QPM 08/22/16 [History ] Ipratropium/Albuterol Neb [Duoneb] 3 ml IH Q4HR 08/22/16 [History] Ipratropium/Albuterol Neb [Duoneb] 3 ml IH QID PRN 08/22/16 [History] Iron Polysaccharide Complex [Pro Fe] 180 mg PO DAILY 08/22/16 [History] Letrozole [Femara] 2.5 mg PO DAILY 08/22/16 [History] Oxycodone HCl/Acetaminophen [Percocet 5-325 mg Tablet] 1 each PO Q4H PRN [History] Allergies aspirin [ASA] Allergy (Verified 08/18/16 15:30) Swelling of Lip/Tongue/Throat NSAIDS (Non-Steroidal Anti-Inflamma Allergy (Verified 08/18/16 15:30) Swelling of Lip/Tongue/Throat Penicillins Allergy (Verified 08/18/16 15:30) Hives iron Adverse Reaction (Verified 08/18/16 15:30) Unknown Push only Review of Systems Constitutional: anorexia, no chills, no fatigue, no fever(s), no weakness, no weight loss Nose, mouth and throat: no dizziness, no headache(s) Cardiovascular: no chest pain, no edema, no lightheadedness, no orthopnea, no palpitations Respiratory: as per HPI, cough, dyspnea, no hemoptysis, no wheezing, no pain on inspiration, no chest congestion, no change in phlegm color Gastrointestinal: as per HPI, bloating, nausea, no constipation, no diarrhea, no hematemesis, no hematochezia, no vomiting Genitourinary Female: no dysuria, no hematuria Musculoskeletal: no muscle weakness, no numbness Exam - Vital Signs Vital signs: Initial Vital Signs Temp Pulse Resp BP Pulse Ox 98.6 F 85 18 143/69 93 08/22/16 13:15 08/22/16 13:15 08/22/16 13:15 08/22/16 13:15 08/22/16 13:15 Vital Signs - Last 8 Hours Temp Pulse Resp BP Pulse Ox 08/25/16 06:48 97.9 F 75 18 157/76 93 08/25/16 03:53 18 94 08/25/16 03:27 98.3 F 68 18 136/72 95 Intake and Output 08/24/16 08/25/16 08/25/16 23:59 07:59 15:59 Intake Total 0 / 0 1000 / 1000 Output Total 475 / 475 800 / 800 Balance -475 / -475 200 / 200 Intake: IV Fluids 1000 / 1000 0.9 % Sodium Chloride 1, 1000 / 1000 000 ML @ 60 mls/hr IVC . [id number] COUNT INCLUDES THE [facility] Rx#: [id number] Oral 0 / 0 0 / 0 Output: Urine 0 / 0 0 / 0 Catheter 475 / 475 800 / 800 Other: Stool Size Moderate Stool Consistency formed Stool Characteristics Normal for Patient Stool Color Brown # Bowel Movements 1 Weight 93.1 kg Blood Glucose* 153 193 310 Patient Weight 08/25/16 23:59 Weight 93.1 kg - General Appearance Exam: General: Cooperative, pleasant, no acute distress, alert and oriented 3, answers questions appropriately Head: Normocephalic, atraumatic Eye: Conjunctiva pink, sclera anicteric, EOMI, PERRL Neck: Supple, trachea midline Respiratory: No accessory muscle usage, adventitious breath sounds in lower left lobe, no wheezing/rhonchi/rales Cardiovascular: Regular rate and rhythm, S1 and S2 present, no murmurs/rubs/ gallops/clicks appreciated GI/abdominal: Nondistended, nontender, soft, normal bowel sounds, no peritoneal signs Extremities: No calf tenderness, noncyanotic, no pedal edema appreciated, warm, lower extremity pulses palpable and symmetrical Neurological: Alert and oriented 3, no facial droop, no focal deficits Skin: Dry, intact, normal color Results - Lab Results 08/25/16 12:10 08/25/16 04:40 Most recent lab results Calcium 8.8 mg/dL (8.6-10.8) 08/25/16 04:40 Magnesium 1.9 mg/dL (1.6-2.6) 08/25/16 04:40 Urine Creatinine 53 mg/dL 08/24/16 14:18 Urine Total Protein 22 mg/dL (1-14) H 08/24/16 14:18 Consult Discharge Plan - Plan Referrals: Therese Garcia CNP [Primary Care Provider] - (OFFICE WILL CALL BACK WITH APPOINTMENT DATE AND TIME) <Dougie Bernal - Last Filed: 08/26/16 07:40> Date of Encounter: 08/25/16 Exam - Vital Signs Vital signs: Initial Vital Signs Temp Pulse Resp BP Pulse Ox 98.6 F 85 18 143/69 93 08/22/16 13:15 08/22/16 13:15 08/22/16 13:15 08/22/16 13:15 08/22/16 13:15 Vital Signs - Last 8 Hours Temp Pulse Resp BP Pulse Ox 08/26/16 07:29 97.5 F L 46 18 125/61 95 08/26/16 04:27 18 93 08/26/16 04:21 97.6 F 114 18 130/76 93 08/26/16 00:03 97.5 F L 96 18 120/75 93 Intake and Output 08/25/16 08/25/16 08/26/16 15:59 23:59 07:59 Intake Total 247 / 247 118 / 118 270 / 270 Output Total 0 / 0 200 / 200 500 / 500 Balance 247 / 247 -82 / -82 -230 / -230 Intake: IV Fluids 118 / 118 270 / 270 Cardizem 125 MG In 118 / 118 95 / 95 Dextrose 5% 100 ML @ 10 MG/HR 10 mls/hr IVC . [id number] [facility] Rx#: [id number] Heparin 25,000 UNIT/500 175 / 175 ML D5W 25,000 unit In 500 ml @ 14 UNIT/KG/HR 26. 068 mls/hr IVC .[id number] [facility] Rx#:[id number] Oral 240 / 240 Output: Urine 0 / 0 200 / 200 500 / 500 Other: Meal Lunch Percent of Meal Consumed 100% Weight 89.2 kg Blood Glucose* 323 262 248 Patient Weight 08/26/16 23:59 Weight 89.2 kg Results - Lab Results 08/26/16 01:00 08/26/16 01:00 Most recent lab results Calcium 8.5 mg/dL (8.6-10.8) L 08/26/16 01:00 Magnesium 1.9 mg/dL (1.6-2.6) 08/25/16 04:40 Urine Creatinine 40 mg/dL 08/25/16 13:19 Urine Sodium 30.0 mEq/L 08/25/16 13:19 Urine Total Protein 22 mg/dL (1-14) H 08/24/16 14:18 - Attending Attestation I examined this patient and my medical decision-making was reviewed with the [employer] PREPARATION SUPERVISOR/PA/Advanced Practice Nurse/Resident Physician. I agree with the documented findings, disposition and treatment plan as described except to the extent set forth below. In brief, 76 y o female with PMH of stage 4 CKD admitted with SOB treated for COPD exacerbation developing ELLE due to decreased po intake. BUN also elevated out of proportion to SCr on solumderol. Agree with gentle hydration with SCr already improving. agree with hart catheter placement. will obtain US of kidney and other ELLE studies.
[2016-08-25 12:38] LABS: Hematocrit 30.2 % (35.3-44.9); Hemoglobin 9.2 g/dL (11.5-15.4); Lymphocytes # 0.2 K/mcL (0.6-4.6); Lymphocytes % 2.5 %; Mean Corpuscular HGB Conc 30.5 g/dL (31.6-35.5); Mean Corpuscular Hemoglobin 27.1 pg (28.0-33.3); Mean Corpuscular Volume 88.8 fL (83.0-100.0); Mean Platelet Volume 10.7 fL (9.4-12.4); Monocytes # 0.1 K/mcL (0.0-1.3); Neutrophils # 8.9 K/mcL (1.6-8.9); Platelet Count 210 K/mcL (140-400); Red Cell Distribution Width 16.7 % (11.5-14.5); Segmented Neutrophils % 95.5 %
[2016-08-25 12:43] LABS: Uric Acid 10.4 mg/dL (2.6-6.0)
[2016-08-25] MEDS ORDERED: *HR* Metoprolol 5 MG/5 ML VIAL IVP ONE ×2 (13:10→13:11)
[2016-08-25 14:07] LABS: Bilirubin,Urine Negative (Negative); Blood,Urine Negative (Negative); Clarity,Urine Clear (Clear); Color,Urine Yellow (Yellow); Glucose,Urine (UA) 500 mg/dL (Normal); Ketones,Urine Negative (Negative); Leukocyte Esterase,Urine Small (Negative); Nitrite,Urine Negative (Negative); Protein,Urine 30 mg/dL (Neg-Trace); Specific Gravity,Urine 1.016 (1.010-1.025); Urobilinogen,Urine Normal (Normal)
[2016-08-25 14:09] LABS: Bacteria,Urine None Seen per hpf (None-Few); Hyaline Casts,Urine None Seen per lpf (None-Few); Squamous Epithelial Cell,Urine Many per lpf (None-Few)
[2016-08-25] MEDS ORDERED: Simethicone 80 MG TAB.CHEW PO PRN (14:47)
[2016-08-25] MEDS ORDERED: *HR* Heparin 5,000 UNIT/ML VIAL IVP PRN ×2 (14:52)
[2016-08-25] MEDS ORDERED: *HR* Heparin 5,000 UNIT/ML VIAL IVP ONE (14:52)
--- NOTE | 2016-08-25 16:22 | Cardiology Consult Note ---
Date of Encounter: 08/25/16 Time of Encounter: 16:06 Assessment and Plan (1) Atrial fibrillation with RVR Current Visit: Yes Status: Acute New onset afib with rvr. This afternoon patient developed severe heartburn and reported left arm pain which associated closely with telemetry revealing irregularly irregular rhythm with rate up to 205 bpm. Patient has no known history of afib, but does have a history of ischemic strokes with unknown etiology. We will start a workup at this time suspecting new onset afib with rvr. CXR 08/22/16 revealed lingular airspace disease EKG 08/22/16 revealed normal sinus rhythm without acute changes. Troponin 0.08, 0.04 Telemetry reveals irregularly irregular rhythm, rate up to 205bpm. TEREZA-VASC2 score = 5 Last echo completed 06/23/16 revealed EF 60-65%, mild LV diastolic dysfunction, moderate left atrial dilation, normal RV and LV size and wall thickness and function. No valvular abnormalities. Patient developed new onset afib rvr this afternoon on telemetry with atypical associated symptoms. Suspect multifactorial etiology. Continue with cardizem drip. Continue with heparin drip. Check Thyroid cascade, troponin, BNP, CBC, BMP. Repeat EKG. (2) Acute exacerbation of chronic obstructive airways disease Current Visit: Yes Status: Acute Patient was admitted for worsening shortness when starting steroid taper following hospitalization last month for left lingular pneumonia. No leukocytosis, fever, tachycardia noted at this visit. Treatment as Acute Exacerbation of COPD. Continue management per Hospitalist. (3) CKD (chronic kidney disease) stage 4, GFR 15-29 ml/min Current Visit: Yes Status: Chronic Cr on admission was 2.14, eGFR 23. Cr this morning 2.31, eGFR 21. ELLE peaking on hospital day 3 with Cr up to 2.78 resolved and back at baseline. Continue management per Hospitalist. (4) Elevated troponin Current Visit: Yes Status: Acute Troponin elevated at 0.08 on this admission. Trended down to 0.04 the following day. Troponin elevations likely secondary to demand ischemia due to hypoxia and acute exacebration of COPD and history of Chronic kidney disease. Recheck troponin due to acute event of afib rvr and mention of severe heartburn and left arm pain. (5) Abdominal distention Current Visit: Yes Status: Acute Noted abdominal distension and tympanic abdomen without complaint of abdominal pain on hospital day 3. Imaging revealed possible function ileus. Continue management per Hospitalist plan. (6) Hypertension Current Visit: Yes Status: Chronic Bp 123/71. Continue home medications for chronic disease management. Qualifiers: Hypertension type: essential hypertension Qualified Code(s): I10 - Essential (primary) hypertension (7) History of CVA (cerebrovascular accident) Current Visit: Yes Status: Chronic History of 2 CVAs in May 2016, etiology unknown. Implantable loop recorder in place. Discussion w patient/family: The assessment and plan as outlined above was discussed with the patient and/or family members who expressed understanding and agreement. All questions were answered. Thank you for involving us in the care of your patient. Please call with any questions. History of Present Illness Consult date: 08/25/16 Requesting physician: Elvira Miller Consult reason: new onset afib rvr, cryptogenic stroke Chief complaint: New onset afib rvr History of present illness: Ms. Parks is a 76 year old female with history of COPD, CHF (last echo 06/23/16, EF 60-65%), CKD stage IV, hypertension, diabetes, gerd, and history of 2 ischemic CVAs in May 2016 with subsequent placement of loop recorder who presented to the ED on 08/22/16 with complaint of worsening shortness of breath and oxygen sats of upper 80s on room air. Patient reports she has been completing a steroid taper since discharge from the hospital on 07/29/16 for left lingular pneumonia. CXR at admission revealed lingular airspace disease. EKG at admission revealed normal sinus rhythm without acute changes. Troponin was elevated at 0.08. Cr was 2.14 with eGFR of 23, Hb 10.4. Patient was admitted for acute exacerbation of COPD and treated with IV steroids, bronchodilators, and supplemental oxygen. On hospital day 2 troponin was decreased at 0.04 and Hb was 8.9. On hospital day 3 the patient developed some significant abdominal distension and imaging revealed possible functional ileus and significant stool in right colon. A hart catheter was also placed due to decreased urine output with significant initial urine output. Patients symptoms continued to improve, but she suddenly converted from normal sinus to afib with rvr this afternoon after her lunch. According to the patient she developed sudden severe heartburn at that time and by then the nurses were in her room. Patient denied sweats, changes in vision, syncope, lightheadedness, dizziness, nausea, vomiting, chest pain or pressure, worsening shortness of breath, abdominal pain, weakness, or loss of sensation. Family members report patient did report some left arm pain at that time of the reported heartburn and deny syncope or seizure. Patient and family members report a history of feeling her "heart flip flop" and associated dizziness since this beginning of this year. Family members also report patient has almost passed out and has sustained a few falls due to dyspnea and dizziness when her heart flip flops. Patient denies similar severity of heartburn in the past, but reports a history of heartburn with treatment failure to ppi, H2 blockers, and carafate. Telemetry revealed an irregularly irregular rhythm with rates up to 205bpm that started just after noon today. Cardiology was consulted to evaluate patient for new onset afib with rvr and history of cryptogenic strokes. Past Med Surg Social Fam HX - Past Medical History Medical history: cancer (Right breast), CHF, COPD, CVA, diabetes, renal disease (CKD IV) Psychiatric history: anxiety, depression - Past Surgical History Surgical History: breast surgery (right masectomy 11/20), cholecystectomy, hysterectomy - Social History Smoking Status: Former smoker Smokeless Tobacco Status: No Alcohol use: none Drug use: none - Family History Mother Family Member Ethnicity: Non- Living Status: Hx Family Cardiac Disorders: No Hx Family Respiratory Disorders: No Hx Family Cancer: Yes (colon) Father Living Status: Hx Family Cardiac Disorders: No Hx Family Respiratory Disorders: No Hx Family Cancer: Yes Hx Family GI Disorders: Yes Hx Family Endocrine Disorder: Yes Hx Family Neuromuscular Disorders: No Hx Family Neurologic Disorders: No Hx Family HEENT Disorders: No Hx Family Autoimmune Disorders: No Medications and Allergies Cetirizine HCl [Zyrtec] 10 mg PO HS 04/17/15 [History] Cholecalciferol (Vitamin D3) [Vitamin D3] 2,000 unit PO DAILY 04/17/15 [History] Glimepiride 4 mg PO QAM 04/17/15 [History] Promethazine [Phenergan] 12.5 - 25 mg PO Q6-8H PRN 04/17/15 [History] Albuterol Sulfate [Albuterol Inhaler] 2 puff IH Q6H PRN 10/12/15 [History] Furosemide [Lasix] 20 mg PO DAILY 10/12/15 [History] Omeprazole [PriLOSEC] 20 mg PO DAILY 10/12/15 [History] Amlodipine [Norvasc] 10 mg PO DAILY 01/26/16 [History] Ascorbate Calcium [Vitamin C] 500 mg PO DAILY 06/14/16 [History] Atorvastatin [Lipitor] 10 mg PO HS 06/14/16 [History] Calcitriol [Rocaltrol] 0.25 mcg PO DAILY 06/14/16 [History] Docusate [Colace] 100 mg PO DAILY PRN 06/14/16 [History] Guaifenesin [Mucinex] 600 mg PO Q12H PRN 06/14/16 [History] Linagliptin [Tradjenta] 5 mg PO DAILY 06/14/16 [History] Alendronate Sodium [Fosamax] 70 mg PO QWEEK 06/22/16 [History] Budesonide/Formoterol 80/4.5 [Symbicort 80/4.5] 2 puff IH Q12H 06/22/16 [ History] Calcium Carbonate [Calcium] 600 mg PO BID 06/22/16 [History] Albuterol Neb [Proventil Neb] 2.5 mg IH Q4H PRN 07/27/16 [History] Carvedilol 3.125 mg PO BID 07/27/16 [History] CloNIDine HCl 0.1 mg PO Q8H 07/27/16 [History] Famotidine [Pepcid] 20 mg PO BID 07/27/16 [History] Sucralfate [Carafate] 1 gm PO ACHS 07/27/16 [History] HYDROcodone/Acet 7.5/325 mg [[place] 7.5-325 mg] 1 tab PO Q6H PRN 08/02/16 [ History] Insulin ASPART [NovoLOG] 6 - 18 unit SQ ACHS 08/02/16 [History] Insulin Glargine,Hum.rec.anlog [Lantus Solostar] 10 unit SQ QAM 08/02/16 [ History] Acetaminophen w/Cod 300-30 mg [Tylenol w/Codeine #3] 1 each PO Q4H PRN 08/15/16 [History] Clopidogrel [Plavix] 75 mg PO DAILY 08/15/16 [History] PredniSONE 10 mg PO TAPER 08/15/16 [History] Donepezil HCl [Aricept] 5 mg PO HS 08/22/16 [History] Insulin Glargine,Hum.rec.anlog [Lantus Solostar] 8 unit SQ QPM 08/22/16 [History ] Ipratropium/Albuterol Neb [Duoneb] 3 ml IH Q4HR 08/22/16 [History] Ipratropium/Albuterol Neb [Duoneb] 3 ml IH QID PRN 08/22/16 [History] Iron Polysaccharide Complex [Pro Fe] 180 mg PO DAILY 08/22/16 [History] Letrozole [Femara] 2.5 mg PO DAILY 08/22/16 [History] Oxycodone HCl/Acetaminophen [Percocet 5-325 mg Tablet] 1 each PO Q4H PRN [History] Allergies aspirin [ASA] Allergy (Verified 08/18/16 15:30) Swelling of Lip/Tongue/Throat NSAIDS (Non-Steroidal Anti-Inflamma Allergy (Verified 08/18/16 15:30) Swelling of Lip/Tongue/Throat Penicillins Allergy (Verified 08/18/16 15:30) Hives iron Adverse Reaction (Verified 08/18/16 15:30) Unknown Push only All Systems Review: A 10-system review of systems was performed and is negative for pertinent findings except as documented above in the HPI. - Constitutional Constitutional: no chills, no fever(s), no headache(s), no weakness - EENT Eyes: no blurred vision, no loss of vision Nose, mouth and throat: no dysphagia, no sore throat, no throat swelling - Cardiovascular Cardiovascular: dyspnea at rest, dyspnea on exertion, no chest pain at rest, no chest pain with exertion, no diaphoresis, no irregular heart rhythm, no lightheadedness, no palpitations, no syncope - Respiratory Respiratory: dyspnea, no cough - Gastrointestinal Gastrointestinal: no abdominal pain, no constipation, no diarrhea, no dysphagia , no nausea - Genitourinary Genitourinary: no dysuria - Musculoskeletal Musculoskeletal: no back pain, no muscle weakness - Integumentary Integumentary: no erythema, no rash - Neurological Neurological: no abnormal speech, no dizziness, no focal weakness, no loss of vision, no memory loss, no numbness, no syncope, no tingling Physical Examination Vital Signs, Last 4 Hours Resp BP Pulse Ox 08/25/16 15:58 16 96 08/25/16 15:43 123/71 08/25/16 15:13 112/74 08/25/16 14:43 123/70 08/25/16 14:20 144/97 General: Conversant, No Apparent Distress HEENT: Atraumatic, Normocephaly, Mucus Membranes Moist Neck: No JVD, Normal carotid pulses Cardiac: Normal S1 and S2, No Murmur, Other (irregularly irregular, tachycardic) Lungs: Normal Breath Sounds, No Wheeze, Rales, Rhonchi Neuro: Alert and responsive, No focal deficits noted Abdomen: Soft, Non-Tender, Other (distended, tympanic) Skin: No rashes noted on visualized skin Musculoskeletal: No Chest Wall Tenderness Extremities: No Clubbing, No Cyanosis, No Edema, Normal Pulses Results 08/25/16 12:10 08/25/16 04:40 Lab Results 08/25/16 08/25/16 04:40 12:10 WBC 9.3 D Hgb 9.2 L Hct 30.2 L Plt Count 210 Sodium 139 Potassium 4.3 Chloride 104 Carbon Dioxide 25 BUN 95 H Creatinine 2.31 H Glucose 197 H Calcium 8.8 Magnesium 1.9 Consult Discharge Plan - Plan Referrals: Therese Garcia CNP [Primary Care Provider] - (OFFICE WILL CALL BACK WITH APPOINTMENT DATE AND TIME)
--- NOTE | 2016-08-25 17:03 | Internal Med Progress Note ---
Date of Encounter: 08/25/16 Time of Encounter: 09:00 - Assessment and plan (1) Ileus Current Visit: Yes Status: Acute Assessment and plan: Developed ileus since yesterday. Abdominal x-ray suggestive of dilated gas- filled stomach and possible small bowel loops with no air-fluid levels. Improved nausea and abdominal distention and patient never had vomiting. Noted to have bowel movements. We will start clear liquid diet as tolerated. Supportive care. (2) Atrial fibrillation with RVR Current Visit: Yes Status: Acute Assessment and plan: Patient is noted to have new onset atrial fibrillation with rapid ventricular rate this morning. She did not respond to 5 mg IV metoprolol or 10 mg IV Cardizem. She has been started on IV Cardizem drip and anticoagulation with IV heparin drip, given her history of CHF, diabetes, 2 recent strokes, age and gender. We will consult cardiology for further recommendations. Recent echocardiogram 2 months back showed no evidence of cardiac thrombus. High risk for complications. (3) Fall Current Visit: Yes Status: Acute Qualifiers: Encounter type: initial encounter Qualified Code(s): W19.XXXA - Unspecified fall, initial encounter (4) Acute exacerbation of chronic obstructive airways disease Current Visit: Yes Status: Acute Assessment and plan: Improving slowly but continues to have persistent cough. Continue scheduled bronchodilators, taper down IV steroids as tolerated. Continue inhaled corticosteroids and supplemental oxygen. Continue Mucinex and supportive care. (5) CKD (chronic kidney disease) stage 4, GFR 15-29 ml/min Current Visit: Yes Status: Chronic Assessment and plan: Serum creatinine is noted to be improving. Continue IV hydration. We will follow up nephrology consult. Patient is noted to be on Lasix at home, which has been held since admission. (6) Hypertension Current Visit: Yes Status: Chronic Qualifiers: Hypertension type: essential hypertension Qualified Code(s): I10 - Essential (primary) hypertension (7) History of CVA (cerebrovascular accident) Current Visit: Yes Status: Chronic (8) CHF (congestive heart failure) Current Visit: Yes Status: Chronic Qualifiers: Congestive heart failure type: diastolic Congestive heart failure chronicity: chronic Qualified Code(s): I50.32 - Chronic diastolic (congestive ) heart failure (9) Insulin dependent type 2 diabetes mellitus Current Visit: Yes Status: Chronic Assessment and plan: Patient is noted to have steroid-induced hyperglycemia. Due to nothing by mouth status, patient did not receive her full dose of Levemir this morning. Will restart at 20 units twice daily and continue sliding scale insulin. Continue Accu-Chek blood glucose monitoring. Diabetic diet. - Subjective Interval history: Patient had worsening abdominal distention and nausea towards last evening/night , abdominal x-ray showed ileus and she received 1 dose of Zofran. She currently reports feeling much better with improved nausea and abdominal distention and did not require any further doses of antiemetics since last night. Option of nasogastric tube insertion has been discussed by the night hospitalist, which she has refused. No chest or abdominal pain, improving shortness of breath. - Constitutional Vitals: Temp Pulse Resp BP Pulse Ox 98.1 F 75 16 123/71 96 08/25/16 10:43 08/25/16 10:43 08/25/16 15:58 08/25/16 15:43 08/25/16 15:58 General appearance: Present: A&O X 3, obese, answers questions appropriately - Respiratory Respiratory exam: Present: CTAB (Coarse breath sounds bilaterally). Absent: accessory muscle use, rales, rhonchi, wheezes - Cardiovascular Cardiovascular exam: Present: RRR, +S1, +S2. Absent: diastolic murmur, gallop, rubs, systolic murmur - GI/Abdominal GI/Abdominal exam: Present: distended (Improving distention), normal bowel sounds, soft, no peritoneal signs. Absent: tenderness - Extremities Exam Extremities exam: Present: full ROM, pedal edema, warm, radial pulses palpable and symetrical. Absent: calf tenderness, cyanotic Internal Medicine: Result - Labs CBC & Chem 7: 08/25/16 16:51 08/25/16 16:51 Labs: Short CBC 08/25/16 Range/Units 12:10 WBC 9.3 D (4.3-11.1) K/mcL Hgb 9.2 L (11.5-15.4) g/dL Hct 30.2 L (35.3-44.9) % Plt Count 210 (140-400) K/mcL Neutrophils # 8.9 (1.6-8.9) K/mcL BMP 08/25/16 04:40 Sodium 139 Potassium 4.3 Chloride 104 Carbon Dioxide 25 BUN 95 H Creatinine 2.31 H Glucose 197 H Calcium 8.8 Urine 04/20/17 Range/Units 13:19 Urine Color Yellow (Yellow) Urine Clarity Clear (Clear) Urine pH 6.0 (5.0-8.0) pH Units Ur Specific [place] 1.016 (1.010-1.025) Urine Protein 30 H (Neg-Trace) mg/dL Urine Glucose (UA) 500 H (Normal) mg/dL - Impressions Impressions KUB X-Ray 08/24/16 18:46 IMPRESSION: 1. The upper portion of the abdomen is not included in this views for evaluation. There is partial visualization of a chronically dilated air-filled structure in the upper abdomen, likely in the stomach. 2. Large amount of stool burden seen in the right colon. 3. Few air-filled prominent loops of small bowel left abdomen without air-fluid levels, nonspecific, may represent functional ileus. D/ / Salvador Be MD / Salvador Be MD Interpreting Provider: Salvador Be MD X-Ray 08/24/16 20:04 IMPRESSION: No acute abnormality of the upper abdomen. D/ / Salvador Be MD / Salvador Be MD Interpreting Provider: Salvador Be MD Consult Discharge Plan - Plan Referrals: Theerse Garcia CNP [Primary Care Provider] - (OFFICE WILL CALL BACK WITH APPOINTMENT DATE AND TIME)
[2016-08-25 17:05] LABS: Hematocrit 28.9 % (35.3-44.9); Mean Corpuscular HGB Conc 31.1 g/dL (31.6-35.5); Mean Corpuscular Hemoglobin 27.4 pg (28.0-33.3); Mean Corpuscular Volume 87.8 fL (83.0-100.0); Mean Platelet Volume 9.7 fL (9.4-12.4); Platelet Count 189 K/mcL (140-400); Red Blood Count 3.29 M/mcL (3.82-4.97); Red Cell Distribution Width 16.5 % (11.5-14.5)
[2016-08-25 17:09] LABS: Prothrombin Time 10.3 Seconds (9.4-12.1)
[2016-08-25 17:12] LABS: Activated Partial Thrombo Time 24.3 Seconds (26.0-36.0)
[2016-08-25 17:23] LABS: Calcium 8.6 mg/dL (8.6-10.8); Potassium 4.1 mEq/L (3.5-4.5)
[2016-08-25 17:45] LABS: Thyroid Stimulating Hormone 0.028 mcIU/mL (0.350-4.840)
[2016-08-25] MEDS: Heparin 25,000 UNIT/500 ML D5W 25,000 UNIT/500 ML MLS IVC SCH (17:56)
--- NOTE | 2016-08-25 18:14 | Electrocardiograph Report ---
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
[2016-08-25] MEDS ORDERED: *HR* Metoprolol 5 MG/5 ML VIAL IVP PRN ×2 (18:30)
[2016-08-25] MEDS: *HR* Morphine 2 MG/ML SYRINGE IVP PRN (19:07)
[2016-08-25] MEDS: MethylPREDNISolone 40 MG/ML VIAL IVP SCH (22:19)
[2016-08-25] MEDS: Insulin DETEMIR 100 UNIT/ML X5UNITS SQ SCH (22:21)
[2016-08-26 01:11] LABS: Basophils % 0.1 %; Hemoglobin 8.6 g/dL (11.5-15.4); Immature Granulocytes % 0.7 % (0-4); Lymphocytes # 0.4 K/mcL (0.6-4.6); Lymphocytes % 4.2 %; Mean Corpuscular HGB Conc 31.9 g/dL (31.6-35.5); Mean Corpuscular Hemoglobin 27.7 pg (28.0-33.3); Mean Corpuscular Volume 87.1 fL (83.0-100.0); Mean Platelet Volume 10.4 fL (9.4-12.4); Monocytes # 0.3 K/mcL (0.0-1.3); Monocytes % 3.5 %; Neutrophils # 7.9 K/mcL (1.6-8.9); Platelet Count 183 K/mcL (140-400); Red Cell Distribution Width 16.3 % (11.5-14.5); Segmented Neutrophils % 91.5 %
[2016-08-26 01:22] LABS: Calcium 8.5 mg/dL (8.6-10.8); Potassium 3.8 mEq/L (3.5-4.5)
[2016-08-26 01:27] LABS: Activated Partial Thrombo Time 126.6 Seconds (26.0-36.0)
[2016-08-26 01:37] LABS: Heparin anti-factor XA UFH 1.96 IU/mL (0.30-0.70)
[2016-08-26] MEDS: *HR* OxyCODONE/APAP 5/325 TABLET PO PRN ×2 (04:04→12:00)
[2016-08-26] MEDS: Ipratropium/Albuterol Neb 3 ML IH SCH ×6 (04:26→23:48)
[2016-08-26] MEDS ORDERED: *HR* Heparin 5,000 UNIT/ML VIAL SQ SCH (06:00)
[2016-08-26] MEDS: traMADol 50 MG TABLET PO PRN (08:30)
[2016-08-26] MEDS: amLODIPine 5 MG TABLET PO SCH (08:31)
[2016-08-26] MEDS: Ascorbic Acid 500 MG TABLET PO SCH (08:31)
[2016-08-26] MEDS: MethylPREDNISolone 40 MG/ML VIAL IVP SCH (08:31)
[2016-08-26] MEDS: Sucralfate 1 GM TABLET PO SCH ×4 (08:31→20:47)
[2016-08-26] MEDS: Budesonide/Formoterol 80/4.5 MDI IH SCH ×2 (08:36→19:44)
[2016-08-26] MEDS: Insulin DETEMIR 100 UNIT/ML X5UNITS SQ SCH ×2 (08:38→20:48)
[2016-08-26] MEDS: Insulin LISPRO 300 UNITS/3 ML VIAL SQ SCH ×4 (08:38→20:49)
--- NOTE | 2016-08-26 08:38 | Nephrology Progress Note ---
Date of Encounter: 08/26/16 Time of Encounter: 09:30 - Assessment and Plan (1) CKD (chronic kidney disease) stage 4, GFR 15-29 ml/min Current Visit: Yes Status: Chronic SCr is trending back to baseline. 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 She has been off the her home dose of lasix (listed as 20mg in the med summary portion of her chart) and clonidine. BPs are controlled. Doing well. COPD and PAF as per primary Continue to follow a renal protective strategy. Dose Rx by GFR. Strict I/Os. Will follow with you. Thank you. (2) Acute exacerbation of chronic obstructive airways disease Current Visit: Yes Status: Acute As per primary (3) Hypertension Current Visit: Yes Status: Chronic Controlled Qualifiers: Hypertension type: essential hypertension Qualified Code(s): I10 - Essential (primary) hypertension Subjective Principal diagnosis: ELLE on CKD, COPD, PAF Interval history: Pt was s/e earlier today. She did not affirm N/V/D or uremic complaints. Her daughter was present. I discussed her care also with the hospitalist. Objective - Vital Signs Vital signs: Vital Signs Temp Pulse Resp BP Pulse Ox 08/26/16 07:29 97.5 F L 46 18 125/61 95 08/26/16 04:27 18 93 08/26/16 04:21 97.6 F 114 18 130/76 93 08/26/16 00:03 97.5 F L 96 18 120/75 93 08/25/16 22:57 18 97 08/25/16 21:12 97.6 F 84 17 136/79 94 08/25/16 20:45 93 08/25/16 19:59 18 95 08/25/16 19:04 97.1 F L 98 22 133/76 94 08/25/16 15:58 16 96 08/25/16 15:43 123/71 08/25/16 15:13 112/74 08/25/16 14:43 123/70 08/25/16 14:20 144/97 08/25/16 11:28 18 92 08/25/16 10:43 98.1 F 75 18 145/81 92 Intake and Output 08/25/16 08/26/16 08/26/16 23:59 07:59 15:59 Intake Total 118 / 118 270 / 270 Output Total 200 / 200 850 / 850 Balance -82 / -82 -580 / -580 Intake: IV Fluids 118 / 118 270 / 270 Cardizem 125 MG In 118 / 118 95 / 95 Dextrose 5% 100 ML @ 10 MG/HR 10 mls/hr IVC . [id number] KEILA Rx#: [id number] Heparin 25,000 UNIT/500 175 / 175 ML D5W 25,000 unit In 500 ml @ 14 UNIT/KG/HR 26. 068 mls/hr IVC .[id number] KEILA Rx#:[id number] Output: Urine 200 / 200 850 / 850 Other: Weight 89.2 kg Blood Glucose* 262 248 Patient Weight 08/26/16 23:59 Weight 89.2 kg - General Appearance General appearance: Present: well-developed, well-nourished, appears started age EENT: Present: ATNC, PERRL, mucous membranes moist Neck: Present: supple Respiratory: Present: clear Cardiology: Present: regular rate, regular rhythm, normal S1, normal S2 Gastrointestinal: Present: normoactive bowel sounds, no tenderness Integumentary: Present: no rash, warm and dry Neurologic: Present: no focal deficit, no asterixis, alert and oriented x3 Musculoskeletal: Present: no deformities, no erythema, no cyanosis Psychiatric: Present: mood/affect appropriate, cooperative - Lab 08/26/16 01:00 08/26/16 01:00 Most recent lab results Calcium 8.5 mg/dL (8.6-10.8) L 08/26/16 01:00 Magnesium 1.9 mg/dL (1.6-2.6) 08/25/16 04:40 Urine Creatinine 40 mg/dL 08/25/16 13:19 Urine Sodium 30.0 mEq/L 08/25/16 13:19 Urine Total Protein 22 mg/dL (1-14) H 08/24/16 14:18 Consult Discharge Plan - Plan Referrals: Therese Garcia CNP [Primary Care Provider] - 08/30/16 9:45 am ()
--- NOTE | 2016-08-26 09:55 | Internal Med Progress Note ---
Date of Encounter: 08/26/16 Time of Encounter: 09:52 - Assessment and plan (1) Anemia Current Visit: Yes Status: Chronic Assessment and plan: Patient noted to have acute on chronic anemia with at least a 2 g drop in hemoglobin since admission. She has also been started on anticoagulation with IV heparin since yesterday, stool occult blood testing is positive. Patient has been scheduled for outpatient EGD which she missed due to being hospitalized. We will consult surgery for possible inpatient testing at this time. Qualifiers: Anemia type: iron deficiency Iron deficiency anemia type: unspecified iron deficiency Qualified Code(s): D50.9 - Iron deficiency anemia, unspecified (2) Atrial fibrillation with RVR Current Visit: Yes Status: Resolved Assessment and plan: Cardiology follow-up appreciated. Patient has been started on IV Cardizem drip yesterday, which has been since discontinued. Patient is currently in sinus rhythm with some bradycardia. We will decrease Coreg to home dose of 3.125 mg twice daily due to bradycardia. Continue IV heparin drip for long-term anticoagulation due to very high CHADS-VASC2 score of at least 7. Patient will likely be discharged on oral Eliquis, if insurance covers. Continue telemetry monitoring. (3) Ileus Current Visit: Yes Status: Resolved Assessment and plan: Patient is tolerating solid diet and having bowel movements. (4) Fall Current Visit: Yes Status: Acute Assessment and plan: Improved right knee pain. PT and OT evaluation. Qualifiers: Encounter type: initial encounter Qualified Code(s): W19.XXXA - Unspecified fall, initial encounter (5) Acute exacerbation of chronic obstructive airways disease Current Visit: Yes Status: Acute Assessment and plan: Improving. Will taper down IV steroids as tolerated with goal to convert to oral steroids at the time of discharge. Continue bronchodilators along with inhaled corticosteroids and supplemental oxygen. (6) CKD (chronic kidney disease) stage 4, GFR 15-29 ml/min Current Visit: Yes Status: Chronic Assessment and plan: Nephrology follow-up appreciated. Serum creatinine currently at baseline. (7) Hypertension Current Visit: Yes Status: Chronic Qualifiers: Hypertension type: essential hypertension Qualified Code(s): I10 - Essential (primary) hypertension (8) History of CVA (cerebrovascular accident) Current Visit: Yes Status: Chronic (9) CHF (congestive heart failure) Current Visit: Yes Status: Chronic Assessment and plan: Patient is noted to have some cardiac wheezing and has been reporting dyspnea yesterday. We will restart home dose of oral Lasix, IV fluids have been discontinued at this time. Continue beta jean-pierre and supportive care. Qualifiers: Congestive heart failure type: diastolic Congestive heart failure chronicity: chronic Qualified Code(s): I50.32 - Chronic diastolic (congestive ) heart failure (10) Insulin dependent type 2 diabetes mellitus Current Visit: Yes Status: Chronic Assessment and plan: Blood sugars are noted to be improving with tapering down steroids. Continue Accu-Chek blood glucose monitoring with basal bolus insulin regimen. Diabetic diet. - Subjective Interval history: Feels much better today; improved shortness of breath and chest pain/heart burn. HR improved and converted to sinus currently; off Cardizem drip; - Constitutional Vitals: Temp Pulse Resp BP Pulse Ox 97.5 F L 53 18 125/61 95 08/26/16 07:29 08/26/16 08:30 08/26/16 07:29 08/26/16 07:29 08/26/16 07:29 General appearance: Present: A&O X 3, obese, answers questions appropriately - Respiratory Respiratory exam: Present: rales, wheezes (bibasal expiratory wheezing). Absent : accessory muscle use, rhonchi - Cardiovascular Cardiovascular exam: Present: bradycardia, RRR, +S1, +S2. Absent: diastolic murmur, gallop, rubs, systolic murmur - GI/Abdominal GI/Abdominal exam: Present: normal bowel sounds, soft, no peritoneal signs. Absent: distended, tenderness - Extremities Exam Extremities exam: Present: warm, radial pulses palpable and symetrical. Absent : calf tenderness, cyanotic, pedal edema Internal Medicine: Result - Labs CBC & Chem 7: 08/26/16 01:00 08/26/16 01:00 Labs: Short CBC 08/25/16 08/25/16 08/26/16 Range/Units 12:10 16:51 01:00 WBC 9.3 D 9.6 8.6 (4.3-11.1) K/mcL Hgb 9.2 L 9.0 L 8.6 L (11.5-15.4) g/dL Hct 30.2 L 28.9 L 27.0 L (35.3-44.9) % Plt Count 210 189 183 (140-400) K/mcL Neutrophils # 8.9 7.9 (1.6-8.9) K/mcL BMP 08/25/16 08/26/16 16:51 01:00 Sodium 136 133 L Potassium 4.1 3.8 Chloride 103 101 Carbon Dioxide 21 24 BUN 94 H 93 H Creatinine 2.20 H 2.05 H Glucose 309 H 218 H Calcium 8.6 8.5 L Cardiac Enzymes 08/25/16 Range/Units 16:51 Troponin I 0.04 H* (0-0.03) ng/mL Urine 08/25/16 Range/Units 13:19 Urine Color Yellow (Yellow) Urine Clarity Clear (Clear) Urine pH 6.0 (5.0-8.0) pH Units Ur Specific [place] 1.016 (1.010-1.025) Urine Protein 30 H (Neg-Trace) mg/dL Urine Glucose (UA) 500 H (Normal) mg/dL - ABG Interpretation ABG results: PT/INR, D-dimer PT 10.3 Seconds (9.4-12.1) 08/25/16 16:51 - Impressions Impressions Chest X-Ray 08/25/16 18:32 IMPRESSION: Mild lateral left basilar airspace disease, slightly increased. This may represent atelectasis or pneumonia. D/ / Jericho Hermosillo MD / Jericho Hermosillo MD Interpreting Provider: Jericho Hermosillo MD Consult Discharge Plan - Plan Referrals: Therese Garcia CNP [Primary Care Provider] - 08/30/16 9:45 am ()
[2016-08-26] MEDS: Furosemide 20 MG TABLET PO SCH (10:49)
[2016-08-26] MEDS: Heparin 25,000 UNIT/500 ML D5W 25,000 UNIT/500 ML MLS IVC SCH ×2 (11:32→18:24)
--- NOTE | 2016-08-26 13:15 | Cardiology Progress Note ---
Addendum entered and electronically signed by Jose Dewey DO 08/26/16 13:25 : Due to [id number] score of 5, recommend starting oral anticoagulation when deemed appropriate to transition from heparin drip due to hemoccult positive stool. Coumadin vs Eliquis Original Note: Date of Encounter: 08/26/16 Time of Encounter: 13:11 Assessment and Plan (1) Elevated troponin Current Visit: Yes Status: Acute Troponin 0.08, 0.04, 0.04 Troponin elevated likely secondary to demand ischema and/or decreased renal clearance. No current plan for LHC. (2) Atrial fibrillation with RVR Current Visit: Yes Status: Acute New onset afib with rvr. Hx of cryptogenic ischemic strokes, this is possible etiology Troponin 0.08, 0.04, 0.04 Telemetry reveals irregularly irregular rhythm, rate up to 205bpm. TEREZA-VASC2 score = 5 Last echo completed 06/23/16 revealed EF 60-65%, mild LV diastolic dysfunction, moderate left atrial dilation, normal RV and LV size and wall thickness and function. No valvular abnormalities. Patient developed new onset afib rvr on 08/25 on telemetry with atypical associated symptoms. Patient converted to NSR while on cardizem drip. Has remained in NSR since drip stopped at 0500 on 08/26 HR has been low in the 50's, this is appears consistent with prior heart rates compared to. Recommend Coreg 6.25 BID (3) Acute exacerbation of chronic obstructive airways disease Current Visit: Yes Status: Acute Management per primary team (4) CKD (chronic kidney disease) stage 4, GFR 15-29 ml/min Current Visit: Yes Status: Chronic Management per primary team Discussion w patient/family: The assessment and plan as outlined above was discussed with the patient and/or family members who expressed understanding and agreement. All questions were answered. Thank you for involving us in the care of your patient. Please call with any questions. Subjective Principal diagnosis: ELLE on CKD, COPD, PAF Interval history: Overnight while on the cardizem drip her HR and BP began to fall so the cardizem drip was stopped. Her HR remained in the high 40's and 50's. She denied having any symptoms such as lightheadedness, chest pain, worsening dyspnea. Objective Vital Signs, Last 4 Hours Temp Pulse Resp BP 08/26/16 12:00 53 08/26/16 11:49 97.5 F L 54 20 119/64 Results 08/26/16 01:00 08/26/16 01:00 Consult Discharge Plan - Plan Referrals: Therese Garcia CNP [Primary Care Provider] - 08/30/16 9:45 am ()
--- NOTE | 2016-08-26 17:17 | Electrocardiograph Report ---
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
--- NOTE | 2016-08-26 17:23 | Electrocardiograph Report ---
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
--- NOTE | 2016-08-26 17:42 | General Surgery Consult Note ---
Date of Encounter: 08/26/16 Time of Encounter: 17:30 Assessment and Plan (1) GI bleed Current Visit: No Status: Acute Acute on chronic gastrointestinal bleeding. She has had multiple workups and endoscopy by hematology, surgery, gastroenterology. At this time I do not think that urgent upper endoscopy will add anything to her treatment plan. I will be glad to discuss her case with Dr. Chaney and Dr. Escobedo on Monday Qualifiers: GI bleed type/associated pathology: unspecified gastrointestinal hemorrhage type Qualified Code(s): K92.2 - Gastrointestinal hemorrhage, unspecified History of Present Illness Consult date: 08/26/16 Reason for consult: other (Recurrent gastrointestinal bleeding) History of present illness: The patient is admitted for complex cardiac care including atrial fibrillation and rapid filling jugular response which is responding to treatment. As part of the treatment she has received anticoagulation. Over the last several years she has received anticoagulation on several different occasions and each time she responds with gastrointestinal hemorrhage. Today her hemoglobin has dropped and there is visible blood in her stool area she has been seen in consultation by Dr. Escobedo who has performed upper and lower endoscopy and in June did not feel that colonoscopy would be helpful. 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 She is followed by Dr. Chaney who is also performed endoscopy. She is been followed for acute on chronic anemia for several years and has had complete workup by hematology, surgery, and gastroenterology. At this point the patient has documented bleeding sources in the gastrointestinal tract that cannot be addressed with endoscopic means. I do not feel that further emergent endoscopy is indicated. If the patient has high-volume bleeding I think that a bleeding scan may be useful in determining whether this is upper or lower in origin. If this is upper in origin she may require resection of the GIST tumor sooner rather than later.I will discuss her case with Dr. Chaney and Dr. Escobedo on Monday Past Med Surg Social Fam HX - Past Medical History Medical history: cancer (Right breast), CHF, COPD, CVA, diabetes, renal disease (CKD IV) Psychiatric history: anxiety, depression - Past Surgical History Surgical History: breast surgery (right masectomy 11/20), cholecystectomy, hysterectomy - Social History Smoking Status: Former smoker Smokeless Tobacco Status: No Alcohol use: none Drug use: none - Family History Mother Family Member Ethnicity: Non- Living Status: Hx Family Cardiac Disorders: No Hx Family Respiratory Disorders: No Hx Family Cancer: Yes (colon) Father Living Status: Hx Family Cardiac Disorders: No Hx Family Respiratory Disorders: No Hx Family Cancer: Yes Hx Family GI Disorders: Yes Hx Family Endocrine Disorder: Yes Hx Family Neuromuscular Disorders: No Hx Family Neurologic Disorders: No Hx Family HEENT Disorders: No Hx Family Autoimmune Disorders: No Medications and Allergies Cetirizine HCl [Zyrtec] 10 mg PO HS 04/17/15 [History] Cholecalciferol (Vitamin D3) [Vitamin D3] 2,000 unit PO DAILY 04/17/15 [History] Glimepiride 4 mg PO QAM 04/17/15 [History] Promethazine [Phenergan] 12.5 - 25 mg PO Q6-8H PRN 04/17/15 [History] Albuterol Sulfate [Albuterol Inhaler] 2 puff IH Q6H PRN 10/12/15 [History] Furosemide [Lasix] 20 mg PO DAILY 10/12/15 [History] Omeprazole [PriLOSEC] 20 mg PO DAILY 10/12/15 [History] Amlodipine [Norvasc] 10 mg PO DAILY 01/26/16 [History] Ascorbate Calcium [Vitamin C] 500 mg PO DAILY 06/14/16 [History] Atorvastatin [Lipitor] 10 mg PO HS 06/14/16 [History] Calcitriol [Rocaltrol] 0.25 mcg PO DAILY 06/14/16 [History] Docusate [Colace] 100 mg PO DAILY PRN 06/14/16 [History] Guaifenesin [Mucinex] 600 mg PO Q12H PRN 06/14/16 [History] Linagliptin [Tradjenta] 5 mg PO DAILY 06/14/16 [History] Alendronate Sodium [Fosamax] 70 mg PO QWEEK 06/22/16 [History] Budesonide/Formoterol 80/4.5 [Symbicort 80/4.5] 2 puff IH Q12H 06/22/16 [ History] Calcium Carbonate [Calcium] 600 mg PO BID 06/22/16 [History] Albuterol Neb [Proventil Neb] 2.5 mg IH Q4H PRN 07/27/16 [History] Carvedilol 3.125 mg PO BID 07/27/16 [History] CloNIDine HCl 0.1 mg PO Q8H 07/27/16 [History] Famotidine [Pepcid] 20 mg PO BID 07/27/16 [History] Sucralfate [Carafate] 1 gm PO ACHS 07/27/16 [History] HYDROcodone/Acet 7.5/325 mg [[place] 7.5-325 mg] 1 tab PO Q6H PRN 08/02/16 [ History] Insulin ASPART [NovoLOG] 6 - 18 unit SQ ACHS 08/02/16 [History] Insulin Glargine,Hum.rec.anlog [Lantus Solostar] 10 unit SQ QAM 08/02/16 [ History] Acetaminophen w/Cod 300-30 mg [Tylenol w/Codeine #3] 1 each PO Q4H PRN 08/15/16 [History] Clopidogrel [Plavix] 75 mg PO DAILY 08/15/16 [History] PredniSONE 10 mg PO TAPER 08/15/16 [History] Donepezil HCl [Aricept] 5 mg PO HS 08/22/16 [History] Insulin Glargine,Hum.rec.anlog [Lantus Solostar] 8 unit SQ QPM 08/22/16 [History ] Ipratropium/Albuterol Neb [Duoneb] 3 ml IH Q4HR 08/22/16 [History] Ipratropium/Albuterol Neb [Duoneb] 3 ml IH QID PRN 08/22/16 [History] Iron Polysaccharide Complex [Pro Fe] 180 mg PO DAILY 08/22/16 [History] Letrozole [Femara] 2.5 mg PO DAILY 08/22/16 [History] Oxycodone HCl/Acetaminophen [Percocet 5-325 mg Tablet] 1 each PO Q4H PRN [History] Allergies aspirin [ASA] Allergy (Verified 08/18/16 15:30) Swelling of Lip/Tongue/Throat NSAIDS (Non-Steroidal Anti-Inflamma Allergy (Verified 08/18/16 15:30) Swelling of Lip/Tongue/Throat Penicillins Allergy (Verified 08/18/16 15:30) Hives iron Adverse Reaction (Verified 08/18/16 15:30) Unknown Push only Review of Systems All systems PM: A 10-system review of systems was performed and is negative for pertinent findings except as documented above in the HPI. General Surgery Exam Initial Vital Signs Temp Pulse Resp BP Pulse Ox 98.6 F 85 18 143/69 93 08/22/16 13:15 08/22/16 13:15 08/22/16 13:15 08/22/16 13:15 08/22/16 13:15 - General physical appearance chronically ill, obese - Neck no masses, no bruits, trachea midline, no lymphadectomy, no venous distension - Respiratory normal expansion, normal respiratory effort, clear to percussion, clear to auscultation - Cardiovascular Cardiovascular exam: Present: bradycardia, no murmurs/rubs/gallops - Abdomen Abdomen general surgery: Present: bowel sounds present, soft, non tender - Neurologic Present: CN 2-12 grossly intact, normal coordination, normal sensation - Psychiatric Psychiatric general surgery: Present: appropriate, oriented to person, oriented to place, oriented to time, speech is normal, memory intact Exam Initial Vital Signs Temp Pulse Resp BP Pulse Ox 98.6 F 85 18 143/69 93 08/22/16 13:15 08/22/16 13:15 08/22/16 13:15 08/22/16 13:15 08/22/16 13:15 Results - Labs 08/26/16 01:00 08/26/16 01:00 Abnormal lab results RBC 3.10 M/mcL (3.82-4.97) L 08/26/16 01:00 Hgb 8.6 g/dL (11.5-15.4) L 08/26/16 01:00 Hct 27.0 % (35.3-44.9) L 08/26/16 01:00 MCH 27.7 pg (28.0-33.3) L 08/26/16 01:00 RDW 16.3 % (11.5-14.5) H 08/26/16 01:00 Lymphocytes # 0.4 K/mcL (0.6-4.6) L 08/26/16 01:00 APTT 80.9 Seconds (26.0-36.0) H 08/26/16 09:56 Heparin Anti-Xa, Unfract 1.96 IU/mL (0.30-0.70) H* 08/26/16 01:00 Sodium 133 mEq/L (136-145) L 08/26/16 01:00 BUN 93 mg/dL (7-20) H 08/26/16 01:00 Creatinine 2.05 mg/dL (0.57-1.11) H 08/26/16 01:00 Est GFR ( Amer) 29 (> 60) L 08/26/16 01:00 Est GFR (Non-Af Amer) 24 (> 60) L 08/26/16 01:00 BUN/Creatinine Ratio 45 (6-26) H 08/26/16 01:00 Glucose 218 mg/dL (70-99) H 08/26/16 01:00 POC Glucose 262 (58-89) H 08/25/16 20:52 Calculated Osmolality 311 (280-300) H 08/26/16 01:00 Uric Acid 10.4 mg/dL (2.6-6.0) H 08/25/16 12:10 Calcium 8.5 mg/dL (8.6-10.8) L 08/26/16 01:00 Creatine Kinase 24 Units/L (29-168) L 08/25/16 12:10 Troponin I 0.04 ng/mL (0-0.03) H* 08/25/16 16:51 B-Natriuretic Peptide 125 pg/mL (0-100) H 08/25/16 16:51 TSH 0.028 mcIU/mL (0.350-4.840) L 08/25/16 16:51 Urine Protein 30 mg/dL (Neg-Trace) H 08/25/16 13:19 Urine Glucose (UA) 500 mg/dL (Normal) H 08/25/16 13:19 Ur Leukocyte Esterase Small (Negative) H 08/25/16 13:19 Urine Microscopic RBC 5-15 per hpf (0-3) H 08/25/16 13:19 Urine Microscopic WBC 5-15 per hpf (0-3) H 08/25/16 13:19 Ur Squamous Epith Cells Many per lpf (None-Few) H 08/25/16 13:19 Ur Culture Indicated? YES (NO) A 08/25/16 13:19 Protein/Creatinin Ratio 0.42 mg/mg (0-0.20) H 08/24/16 14:18 Urine Total Protein 22 mg/dL (1-14) H 08/24/16 14:18 Stool Occult Blood Positive (Negative) A 08/26/16 11:10 All other labs normal. Consult Discharge Plan - Plan Referrals: Jose,Therese Mccormick CNP [Primary Care Provider] - 08/30/16 9:45 am ()
[2016-08-27] MEDS: Ipratropium/Albuterol Neb 3 ML IH SCH ×5 (04:40→19:47)
[2016-08-27 05:26] LABS: Hematocrit 27.6 % (35.3-44.9); Hemoglobin 8.9 g/dL (11.5-15.4); Immature Granulocytes % 0.9 % (0-4); Lymphocytes # 0.3 K/mcL (0.6-4.6); Lymphocytes % 3.8 %; Mean Corpuscular HGB Conc 32.2 g/dL (31.6-35.5); Mean Corpuscular Hemoglobin 27.5 pg (28.0-33.3); Mean Corpuscular Volume 85.2 fL (83.0-100.0); Mean Platelet Volume 11.1 fL (9.4-12.4); Monocytes # 0.3 K/mcL (0.0-1.3); Monocytes % 3.2 %; Neutrophils # 7.8 K/mcL (1.6-8.9); Platelet Count 210 K/mcL (140-400); Red Blood Count 3.24 M/mcL (3.82-4.97); Red Cell Distribution Width 15.9 % (11.5-14.5); Segmented Neutrophils % 92.1 %
[2016-08-27 05:30] LABS: Potassium 4.1 mEq/L (3.5-4.5)
[2016-08-27 05:31] LABS: Calcium 9.1 mg/dL (8.6-10.8); Magnesium 1.8 mg/dL (1.6-2.6); Phosphorous 5.3 mg/dL (2.3-4.7)
[2016-08-27] MEDS: Budesonide/Formoterol 80/4.5 MDI IH SCH ×2 (08:01→19:47)
[2016-08-27] MEDS: Ascorbic Acid 500 MG TABLET PO SCH (08:02)
[2016-08-27] MEDS: Sucralfate 1 GM TABLET PO SCH ×4 (08:02→20:40)
[2016-08-27] MEDS: Furosemide 20 MG TABLET PO SCH (08:03)
[2016-08-27] MEDS: amLODIPine 5 MG TABLET PO SCH (08:03)
[2016-08-27] MEDS: Insulin LISPRO 300 UNITS/3 ML VIAL SQ SCH ×4 (08:04→20:41)
[2016-08-27] MEDS: Insulin DETEMIR 100 UNIT/ML X5UNITS SQ SCH ×2 (08:04→20:40)
[2016-08-27] MEDS: *HR* OxyCODONE/APAP 5/325 TABLET PO PRN ×3 (08:31→20:56)
[2016-08-27] MEDS: Heparin 25,000 UNIT/500 ML D5W 25,000 UNIT/500 ML MLS IVC SCH ×2 (09:00→20:48)
[2016-08-27] MEDS ORDERED: MethylPREDNISolone 40 MG/ML VIAL IVP SCH ×2 (09:00→11:15)
--- NOTE | 2016-08-27 09:50 | General Surgery Progress Note ---
Date of Encounter: 08/27/16 Time of Encounter: 09:50 - Assessment and Plan (1) GI bleed Current Visit: No Status: Acute Acute on chronic gastrointestinal bleeding. She has had multiple workups and endoscopy by hematology, surgery, gastroenterology. At this time I do not think that urgent upper endoscopy will add anything to her treatment plan. I will be glad to discuss her case with Dr. Chaney and Dr. Escobedo on Monday08/27/2016. The patient has no complaints today her hemoglobin and hematocrit are stable. I see no indication for urgent or emergent endoscopic evaluation. I will continue to follow along with you. I would only recommend endoscopic evaluation for change in her clinical status or evidence of ongoing bleeding. Qualifiers: GI bleed type/associated pathology: unspecified gastrointestinal hemorrhage type Qualified Code(s): K92.2 - Gastrointestinal hemorrhage, unspecified Subjective Narrative: The patient is not complaining of any abdominal pain. The patient also is not vomiting. She is tolerating by mouth intake. The hematocrit is stable at 27%. Since she has a stable hemoglobin and hematocrit and is not having any pain I do not think that emergent or urgent upper endoscopy is indicated. I will be available if she has a change in her clinical status or show signs of active bleeding or worsening of her condition. Otherwise we will continue with her elective endoscopy as planned by Dr. Chaney Objective Vital Signs - Last 8 Hours Temp Pulse Resp BP Pulse Ox 08/27/16 08:05 20 92 08/27/16 08:00 98.1 F 85 22 169/101 94 08/27/16 04:40 16 94 08/27/16 04:10 72 08/27/16 02:58 97.7 F 77 20 160/85 94 Intake and Output 08/26/16 08/27/16 08/27/16 23:59 07:59 15:59 Intake Total 1090 / 1090 320 / 320 Output Total 450 / 450 400 / 400 900 / 900 Balance 640 / 640 -400 / -400 -580 / -580 Intake: IV Fluids 150 / 150 Heparin 25,000 UNIT/500 150 / 150 ML D5W 25,000 unit In 500 ml @ 14 UNIT/KG/HR 26. 068 mls/hr IVC .[id number] Rx#:[id number] Oral 940 / 940 320 / 320 Output: Urine 450 / 450 400 / 400 900 / 900 Other: Meal Dinner Breakfast Percent of Meal Consumed 75% 100% Weight 91.9 kg Blood Glucose* 225 275 Patient Weight 08/27/16 23:59 Weight 91.9 kg - General physical appearance chronically ill, obese - Abdomen Abdomen: Present: bowel sounds present, soft, non tender - Neurologic normal coordination, normal sensation - Psychiatric oriented to time, oriented to person, oriented to place, speech is normal, memory intact - Labs 08/27/16 03:53 08/27/16 03:53 Diabetes panel 08/27/16 Range/Units 03:53 Sodium 134 L (136-145) mEq/L Potassium 4.1 (3.5-4.5) mEq/L Chloride 98 (98-109) mEq/L Carbon Dioxide 23 (19-29) mEq/L BUN 97 H (7-20) mg/dL Creatinine 2.68 H (0.57-1.11) mg/dL Glucose 282 H (70-99) mg/dL Calcium 9.1 (8.6-10.8) mg/dL Calcium panel 08/27/16 Range/Units 03:53 Calcium 9.1 (8.6-10.8) mg/dL Phosphorus 5.3 H (2.3-4.7) mg/dL Pituitary panel 08/27/16 Range/Units 03:53 Sodium 134 L (136-145) mEq/L Potassium 4.1 (3.5-4.5) mEq/L Chloride 98 (98-109) mEq/L Carbon Dioxide 23 (19-29) mEq/L BUN 97 H (7-20) mg/dL Creatinine 2.68 H (0.57-1.11) mg/dL Glucose 282 H (70-99) mg/dL Calcium 9.1 (8.6-10.8) mg/dL Adrenal panel 08/27/16 Range/Units 03:53 Sodium 134 L (136-145) mEq/L Potassium 4.1 (3.5-4.5) mEq/L Chloride 98 (98-109) mEq/L Carbon Dioxide 23 (19-29) mEq/L BUN 97 H (7-20) mg/dL Creatinine 2.68 H (0.57-1.11) mg/dL Glucose 282 H (70-99) mg/dL Calcium 9.1 (8.6-10.8) mg/dL Consult Discharge Plan - Plan Referrals: Therese Garcia CNP [Primary Care Provider] - 08/30/16 9:45 am ()
--- NOTE | 2016-08-27 10:10 | Internal Med Progress Note ---
Date of Encounter: 08/27/16 Time of Encounter: 10:08 - Assessment and plan (1) Acute exacerbation of chronic obstructive airways disease Current Visit: Yes Status: Acute Assessment and plan: patient initially improved with IV steroids and has been started on steroid taper. She is noted to be in respiratory distress today and not doing well. Consulted pulmonology, recommend to increase IV steroids back to every 8 hours and to start noninvasive positive pressure ventilation with when necessary BiPAP as tolerated. She may require BiPAP qualification study prior to discharge, if she continues to need it. Continue supplemental oxygen and inhaled corticosteroids. Patient will also be started on IV Lasix to treat underlying possible pulmonary edema. (2) Anemia Current Visit: Yes Status: Chronic Assessment and plan: Hemoglobin noted to be stable. Surgery consult appreciated, no indication for urgent EGD during this admission. We will continue to monitor hemoglobin for now. Qualifiers: Anemia type: iron deficiency Iron deficiency anemia type: unspecified iron deficiency Qualified Code(s): D50.9 - Iron deficiency anemia, unspecified (3) Atrial fibrillation with RVR Current Visit: Yes Status: Acute Assessment and plan: Currently noted to be in sinus rhythm, bradycardia improved. We will increase Coreg to 6.25 mg twice daily. Continue IV heparin drip for anticoagulation, we will change to newer oral anticoagulant, Eliquis, if there is no procedure like EGD or bronchoscopy planned during this admission. (4) Ileus Current Visit: Yes Status: Resolved (5) Fall Current Visit: Yes Status: Acute Assessment and plan: Improved right knee pain. PT and OT evaluation when stable. Qualifiers: Encounter type: initial encounter Qualified Code(s): W19.XXXA - Unspecified fall, initial encounter (6) CKD (chronic kidney disease) stage 4, GFR 15-29 ml/min Current Visit: Yes Status: Chronic Assessment and plan: Serum creatinine slightly worse but patient does have underlying respiratory failure, pulmonary edema and blood pressure noted to be on the higher side. Discussed with nephrology, will increase Coreg, start IV Lasix and possibly restart clonidine. Monitor urine output closely and avoid new nephrotoxic agents. (7) Hypertension Current Visit: Yes Status: Chronic Assessment and plan: Blood pressure noted to be slightly elevated. Increase Coreg, restart clonidine and continue IV diuresis. Cannot start JOHNATHAN inhibitor due to fluctuating renal function. Qualifiers: Hypertension type: essential hypertension Qualified Code(s): I10 - Essential (primary) hypertension (8) History of CVA (cerebrovascular accident) Current Visit: Yes Status: Chronic (9) CHF (congestive heart failure) Current Visit: Yes Status: Chronic Qualifiers: Congestive heart failure type: diastolic Congestive heart failure chronicity: chronic Qualified Code(s): I50.32 - Chronic diastolic (congestive ) heart failure (10) Insulin dependent type 2 diabetes mellitus Current Visit: Yes Status: Chronic Assessment and plan: Blood sugars noted to be improving. Expect worsening of steroid-induced hyperglycemia with increasing steroids. Continue Accu-Chek blood glucose monitoring with sliding scale insulin. Diabetic diet. - Subjective Interval history: Has dyspnea today with some wheezing; does not feel too good due to this; also continues to have moist cough; improved heart rate, off IV Cardizem drip; on IV Heparin drip; - Constitutional Vitals: Temp Pulse Resp BP Pulse Ox 98.1 F 93 20 169/101 92 08/27/16 08:00 08/27/16 08:00 08/27/16 08:05 08/27/16 08:00 08/27/16 08:05 General appearance: Present: mild distress, A&O X 3, obese, answers questions appropriately - Respiratory Respiratory exam: Present: wheezes (B/L coarse breah sounds with expiratory wheezing at bases). Absent: accessory muscle use, rales, rhonchi - Cardiovascular Cardiovascular exam: Present: RRR, +S1, +S2. Absent: diastolic murmur, gallop, rubs, systolic murmur - GI/Abdominal GI/Abdominal exam: Present: normal bowel sounds, soft, no peritoneal signs. Absent: distended, tenderness - Extremities Exam Extremities exam: Present: warm, radial pulses palpable and symetrical. Absent : calf tenderness, cyanotic, pedal edema Additional comments: B/L UE edema, nonpitting - Neurological Exam Neurological exam: Present: CN II-XII intact, oriented X3, no focal deficits. Absent: pronater drift, facial droop, speech deficit Internal Medicine: Result - Labs CBC & Chem 7: 08/27/16 03:53 08/27/16 03:53 Labs: Short CBC 08/27/16 Range/Units 03:53 WBC 8.4 (4.3-11.1) K/mcL Hgb 8.9 L (11.5-15.4) g/dL Hct 27.6 L (35.3-44.9) % Plt Count 210 (140-400) K/mcL Neutrophils # 7.8 (1.6-8.9) K/mcL BMP 08/27/16 03:53 Sodium 134 L Potassium 4.1 Chloride 98 Carbon Dioxide 23 BUN 97 H Creatinine 2.68 H Glucose 282 H Calcium 9.1 - ABG Interpretation ABG results: PT/INR, D-dimer PT 10.3 Seconds (9.4-12.1) 08/25/16 16:51 - Impressions Impressions Retroperitoneum Ultrasound 08/26/16 13:00 IMPRESSION: 1. No hydronephrosis. 2. Grossly stable 1.3 cm left renal cyst. D/ / 08/26/2016 13:55:30 Christine Cam MD / nic Interpreting Provider: Christine Cam MD Consult Discharge Plan - Plan Referrals: Therese Garcia CNP [Primary Care Provider] - 08/30/16 9:45 am ()
--- NOTE | 2016-08-27 10:22 | Nephrology Progress Note ---
Date of Encounter: 08/27/16 Time of Encounter: 10:18 - Assessment and Plan (1) CKD (chronic kidney disease) stage 4, GFR 15-29 ml/min Current Visit: Yes Status: Chronic SCr took a slight bump likely from the low dose diuretic and/or the hemodynamic impact of the recently dx AFib; no need for HOSPITAL SUPERINTENDENT. Edema continues to worsen of the UE carrie, so I will resume the lasix 20mg po bid. HTN: avoiding an JOHNATHAN or ARB. Was on clonidine until recent bradycardia when she was on the Cardizem gtt. Increasing the lasix today but may need further adjustments. COPD and PAF as per primary: she follows with [facility] in the clinic. The pt's PIV have been impacted recently: consider placement of a Midline. Continue to follow a renal protective strategy. Dose Rx by GFR. Strict I/Os. Will follow with you. Thank you. (2) Acute exacerbation of chronic obstructive airways disease Current Visit: Yes Status: Acute As per primary (3) Hypertension Current Visit: Yes Status: Chronic See above Qualifiers: Hypertension type: essential hypertension Qualified Code(s): I10 - Essential (primary) hypertension Subjective Principal diagnosis: ELLE on CKD, COPD, PAF Interval history: Pt was s/e earlier today. She did not affirm N/V/D or uremic complaints. Her daughter the RN was present: increased swelling of the UE and the pt had done well with a Midline in the past; repeat COPD exacerbations and the pt has seen Dr. Wood in the past. I discussed her care also with the hospitalist. Objective - Vital Signs Vital signs: Vital Signs Temp Pulse Resp BP Pulse Ox 08/27/16 08:05 20 92 08/27/16 08:00 98.1 F 85 22 169/101 94 08/27/16 04:40 16 94 08/27/16 04:10 72 08/27/16 02:58 97.7 F 77 20 160/85 94 08/26/16 23:50 16 94 08/26/16 23:42 73 08/26/16 22:36 97.4 F L 66 20 145/73 92 08/26/16 20:30 97 08/26/16 19:45 18 94 08/26/16 19:05 18 91 08/26/16 16:20 58 08/26/16 16:04 97.4 F L 56 18 131/64 93 08/26/16 16:03 18 95 08/26/16 12:00 53 08/26/16 11:49 97.5 F L 54 20 119/64 Intake and Output 08/26/16 08/27/16 08/27/16 23:59 07:59 15:59 Intake Total 1090 / 1090 625 / 625 Output Total 450 / 450 400 / 400 900 / 900 Balance 640 / 640 -400 / -400 -275 / -275 Intake: IV Fluids 150 / 150 305 / 305 Heparin 25,000 UNIT/500 150 / 150 305 / 305 ML D5W 25,000 unit In 500 ml @ 14 UNIT/KG/HR 26. 068 mls/hr IVC .[id number] [facility] Rx#:[id number] Oral 940 / 940 320 / 320 Output: Urine 450 / 450 400 / 400 900 / 900 Other: Meal Dinner Breakfast Percent of Meal Consumed 75% 100% Weight 91.9 kg Blood Glucose* 225 275 Patient Weight 08/27/16 23:59 Weight 91.9 kg - General Appearance General appearance: Present: well-developed, well-nourished, appears started age , obese EENT: Present: ATNC, PERRL, mucous membranes moist Neck: Present: supple Respiratory: Present: wheezing, rales, course breath sounds Cardiology: Present: no murmurs, edema, regular rate, irregular rhythm, normal S1, normal S2 Gastrointestinal: Present: normoactive bowel sounds, no tenderness, obese Integumentary: Present: warm and dry Neurologic: Present: no focal deficit, no asterixis, alert and oriented x3 Musculoskeletal: Present: no erythema, no cyanosis Psychiatric: Present: mood/affect appropriate, cooperative - Lab 08/27/16 03:53 08/27/16 03:53 Most recent lab results Calcium 9.1 mg/dL (8.6-10.8) 08/27/16 03:53 Phosphorus 5.3 mg/dL (2.3-4.7) H 08/27/16 03:53 Magnesium 1.8 mg/dL (1.6-2.6) 08/27/16 03:53 Urine Creatinine 40 mg/dL 08/25/16 13:19 Urine Sodium 30.0 mEq/L 08/25/16 13:19 Urine Total Protein 22 mg/dL (1-14) H 08/24/16 14:18 Consult Discharge Plan - Plan Referrals: Therese Garcia CNP [Primary Care Provider] - 08/30/16 9:45 am ()
[2016-08-27] MEDS: *HR* LORazepam 2 MG/ML VIAL IVP PRN ×2 (11:24→20:56)
--- NOTE | 2016-08-27 11:25 | Pulmonology Consult Note ---
Date of Encounter: 08/27/16 Time of Encounter: 11:00 Assessment and Plan (1) Acute and chronic respiratory failure ([id number]) Current Visit: Yes Status: Acute Patient with respiratory failure mainly hypoxia and she is in respiratory distress. I have talked to the primary team and also respiratory therapist and nurse to place patient on BiPAP on and off and if she tolerates at night to help her work of breathing and also hypoxia. Assessment this is combination of what is looks like reactive airway disease because she has more trouble breathing when it is systemic steroid being tapered off. For now will treat pulmonary edema with Lasix IV and also increased systemic steroids as well as bronchodilators. Qualifiers: Respiratory failure complication: hypoxia Qualified Code(s): J96.21 - Acute and chronic respiratory failure with hypoxia (2) Pulmonary edema cardiac cause Current Visit: Yes Status: Acute Diuresis as much as possible and nephrology is following. (3) COPD exacerbation Current Visit: Yes Status: Suspected Continue bronchodilators and also noninvasive ventilation as well as increased systemic steroids. Thank you for the consult follow-up. There is no indication for bronchoscopy at this time. History of Present Illness Consult date: 08/27/16 Requesting physician: Elvira Miller Reason for consult: dyspnea, COPD Chief complaint: Dyspnea History of present illness: This is a pleasant 76-year-old female who is known to me from previous hospitalization was admitted to the hospital with dyspnea and she was treated for pneumonia as well as A. fib with RVR. Patient has chronic kidney disease and had Lasix was on hold for that reason and she has been followed up with wardrobe custodian. The patient has cough which is moist and has some sputum occasionally. Patient also has dyspnea which is worsening and swelling of upper and lower extremities. Patient denies any chest pain now and also has some wheezing. There is no fever or chills. Family at bedside. Patient has been on antibiotics and every time tapering systemic steroid and then patient has more trouble breathing. Past Med Surg Social Fam HX - Past Medical History Medical history: cancer (Right breast), CHF, COPD, CVA, diabetes, renal disease (CKD IV) Psychiatric history: anxiety, depression - Past Surgical History Surgical History: breast surgery (right masectomy 11/20), cholecystectomy, hysterectomy - Social History Smoking Status: Former smoker Smokeless Tobacco Status: No Alcohol use: none Drug use: none - Family History Mother Family Member Ethnicity: Non- Living Status: Hx Family Cardiac Disorders: No Hx Family Respiratory Disorders: No Hx Family Cancer: Yes (colon) Father Living Status: Hx Family Cardiac Disorders: No Hx Family Respiratory Disorders: No Hx Family Cancer: Yes Hx Family GI Disorders: Yes Hx Family Endocrine Disorder: Yes Hx Family Neuromuscular Disorders: No Hx Family Neurologic Disorders: No Hx Family HEENT Disorders: No Hx Family Autoimmune Disorders: No Medications and Allergies Cetirizine HCl [Zyrtec] 10 mg PO HS 04/17/15 [History] Cholecalciferol (Vitamin D3) [Vitamin D3] 2,000 unit PO DAILY 04/17/15 [History] Glimepiride 4 mg PO QAM 04/17/15 [History] Promethazine [Phenergan] 12.5 - 25 mg PO Q6-8H PRN 04/17/15 [History] Albuterol Sulfate [Albuterol Inhaler] 2 puff IH Q6H PRN 10/12/15 [History] Furosemide [Lasix] 20 mg PO DAILY 10/12/15 [History] Omeprazole [PriLOSEC] 20 mg PO DAILY 10/12/15 [History] Amlodipine [Norvasc] 10 mg PO DAILY 01/26/16 [History] Ascorbate Calcium [Vitamin C] 500 mg PO DAILY 06/14/16 [History] Atorvastatin [Lipitor] 10 mg PO HS 06/14/16 [History] Calcitriol [Rocaltrol] 0.25 mcg PO DAILY 06/14/16 [History] Docusate [Colace] 100 mg PO DAILY PRN 06/14/16 [History] Guaifenesin [Mucinex] 600 mg PO Q12H PRN 06/14/16 [History] Linagliptin [Tradjenta] 5 mg PO DAILY 06/14/16 [History] Alendronate Sodium [Fosamax] 70 mg PO QWEEK 06/22/16 [History] Budesonide/Formoterol 80/4.5 [Symbicort 80/4.5] 2 puff IH Q12H 06/22/16 [ History] Calcium Carbonate [Calcium] 600 mg PO BID 06/22/16 [History] Albuterol Neb [Proventil Neb] 2.5 mg IH Q4H PRN 07/27/16 [History] Carvedilol 3.125 mg PO BID 07/27/16 [History] CloNIDine HCl 0.1 mg PO Q8H 07/27/16 [History] Famotidine [Pepcid] 20 mg PO BID 07/27/16 [History] Sucralfate [Carafate] 1 gm PO ACHS 07/27/16 [History] HYDROcodone/Acet 7.5/325 mg [Supply 7.5-325 mg] 1 tab PO Q6H PRN 08/02/16 [ History] Insulin ASPART [NovoLOG] 6 - 18 unit SQ ACHS 08/02/16 [History] Insulin Glargine,Hum.rec.anlog [Lantus Solostar] 10 unit SQ QAM 08/02/16 [ History] Acetaminophen w/Cod 300-30 mg [Tylenol w/Codeine #3] 1 each PO Q4H PRN 08/15/16 [History] Clopidogrel [Plavix] 75 mg PO DAILY 08/15/16 [History] PredniSONE 10 mg PO TAPER 08/15/16 [History] Donepezil HCl [Aricept] 5 mg PO HS 08/22/16 [History] Insulin Glargine,Hum.rec.anlog [Lantus Solostar] 8 unit SQ QPM 08/22/16 [History ] Ipratropium/Albuterol Neb [Duoneb] 3 ml IH Q4HR 08/22/16 [History] Ipratropium/Albuterol Neb [Duoneb] 3 ml IH QID PRN 08/22/16 [History] Iron Polysaccharide Complex [Pro Fe] 180 mg PO DAILY 08/22/16 [History] Letrozole [Femara] 2.5 mg PO DAILY 08/22/16 [History] Oxycodone HCl/Acetaminophen [Percocet 5-325 mg Tablet] 1 each PO Q4H PRN [History] Allergies aspirin [ASA] Allergy (Verified 08/18/16 15:30) Swelling of Lip/Tongue/Throat NSAIDS (Non-Steroidal Anti-Inflamma Allergy (Verified 08/18/16 15:30) Swelling of Lip/Tongue/Throat Penicillins Allergy (Verified 08/18/16 15:30) Hives iron Adverse Reaction (Verified 08/18/16 15:30) Unknown Push only All Systems: A 10-system review of systems was performed and is negative for pertinent findings except as documented above in the HPI. Physical Examination Vital Signs: Vital Signs, Last 4 Hours Temp Pulse Resp BP Pulse Ox 08/27/16 11:05 20 95 08/27/16 09:55 86 161/86 08/27/16 08:05 20 92 08/27/16 08:00 98.1 F 85 22 169/101 94 General appearance: appears uncomfortable Eyes: nonicteric ENT: oropharynx dry Mallampati (class): 4 Neck: supple, no lymphadenopathy Effort: mildly labored Auscultation: bilateral: wheezes, rales Percussion: bilateral: not dull Cardiovascular: irregular rhythm Gastrointestinal: normoactive bowel sounds, non-distended Extremities: no cyanosis, edema normal mental status, non-focal exam mood appropriate Results - Laboratory Findings CBC and BMP: 08/27/16 03:53 08/27/16 03:53 PT/INR, D-dimer PT 10.3 Seconds (9.4-12.1) 08/25/16 16:51 Abnormal lab findings: Abnormal lab results RBC 3.24 M/mcL (3.82-4.97) L 08/27/16 03:53 Hgb 8.9 g/dL (11.5-15.4) L 08/27/16 03:53 Hct 27.6 % (35.3-44.9) L 08/27/16 03:53 MCH 27.5 pg (28.0-33.3) L 08/27/16 03:53 RDW 15.9 % (11.5-14.5) H 08/27/16 03:53 Lymphocytes # 0.3 K/mcL (0.6-4.6) L 08/27/16 03:53 APTT 66.3 Seconds (26.0-36.0) H 08/27/16 07:53 Heparin Anti-Xa, Unfract 1.96 IU/mL (0.30-0.70) H* 08/26/16 01:00 Sodium 134 mEq/L (136-145) L 08/27/16 03:53 BUN 97 mg/dL (7-20) H 08/27/16 03:53 Creatinine 2.68 mg/dL (0.57-1.11) H 08/27/16 03:53 Est GFR ( Amer) 21 (> 60) L 08/27/16 03:53 Est GFR (Non-Af Amer) 17 (> 60) L 08/27/16 03:53 BUN/Creatinine Ratio 36 (6-26) H 08/27/16 03:53 Glucose 282 mg/dL (70-99) H 08/27/16 03:53 POC Glucose 275 (58-89) H 08/27/16 07:36 Calculated Osmolality 318 (280-300) H 08/27/16 03:53 Uric Acid 10.4 mg/dL (2.6-6.0) H 08/25/16 12:10 Phosphorus 5.3 mg/dL (2.3-4.7) H 08/27/16 03:53 Creatine Kinase 24 Units/L (29-168) L 08/25/16 12:10 Troponin I 0.04 ng/mL (0-0.03) H* 08/25/16 16:51 B-Natriuretic Peptide 125 pg/mL (0-100) H 08/25/16 16:51 TSH 0.028 mcIU/mL (0.350-4.840) L 08/25/16 16:51 Urine Protein 30 mg/dL (Neg-Trace) H 08/25/16 13:19 Urine Glucose (UA) 500 mg/dL (Normal) H 08/25/16 13:19 Ur Leukocyte Esterase Small (Negative) H 08/25/16 13:19 Urine Microscopic RBC 5-15 per hpf (0-3) H 08/25/16 13:19 Urine Microscopic WBC 5-15 per hpf (0-3) H 08/25/16 13:19 Ur Squamous Epith Cells Many per lpf (None-Few) H 08/25/16 13:19 Ur Culture Indicated? YES (NO) A 08/25/16 13:19 Protein/Creatinin Ratio 0.42 mg/mg (0-0.20) H 08/24/16 14:18 Urine Total Protein 22 mg/dL (1-14) H 08/24/16 14:18 Stool Occult Blood Positive (Negative) A 08/26/16 11:10 - Diagnostic Findings Chest x-ray: report reviewed, image reviewed - Clinical Findings Intake & Output: Intake & Output 08/26/16 08/27/16 08/27/16 23:59 07:59 15:59 Intake Total 1090 / 1090 625 / 625 Output Total 450 / 450 400 / 400 900 / 900 Balance 640 / 640 -400 / -400 -275 / -275 Weight 91.9 kg Consult Discharge Plan - Plan Referrals: Therese Garcia CNP [Primary Care Provider] - 08/30/16 9:45 am ()
[2016-08-27] MEDS: Saline Nasal Spray 44 ML BOTTLE NS PRN (12:41)
[2016-08-27] MEDS: MethylPREDNISolone 40 MG/ML VIAL IVP SCH (16:59)
[2016-08-27] MEDS: Furosemide 20 MG/2 ML VIAL IVP SCH (16:59)
[2016-08-27] MEDS ORDERED: Furosemide 20 MG TABLET PO SCH (21:00)
[2016-08-28] MEDS: MethylPREDNISolone 40 MG/ML VIAL IVP SCH ×3 (00:31→16:45)
[2016-08-28] MEDS: Ipratropium/Albuterol Neb 3 ML IH SCH ×6 (00:51→20:04)
[2016-08-28 05:03] LABS: Hematocrit 28.2 % (35.3-44.9); Hemoglobin 9.1 g/dL (11.5-15.4); Immature Granulocytes % 1.1 % (0-4); Lymphocytes # 0.3 K/mcL (0.6-4.6); Mean Corpuscular HGB Conc 32.3 g/dL (31.6-35.5); Mean Corpuscular Hemoglobin 27.5 pg (28.0-33.3); Mean Corpuscular Volume 85.2 fL (83.0-100.0); Mean Platelet Volume 10.2 fL (9.4-12.4); Monocytes # 0.2 K/mcL (0.0-1.3); Monocytes % 2.8 %; Neutrophils # 7.6 K/mcL (1.6-8.9); Platelet Count 205 K/mcL (140-400); Red Blood Count 3.31 M/mcL (3.82-4.97); Red Cell Distribution Width 15.9 % (11.5-14.5); Segmented Neutrophils % 92.1 %
[2016-08-28 05:14] LABS: Albumin 2.5 g/dL (3.5-5.0); Calcium 9.5 mg/dL (8.6-10.8); Magnesium 1.5 mg/dL (1.6-2.6); Phosphorous 4.5 mg/dL (2.3-4.7); Potassium 4.1 mEq/L (3.5-4.5)
[2016-08-28] MEDS: Furosemide 20 MG/2 ML VIAL IVP SCH ×2 (06:44→16:45)
[2016-08-28] MEDS: *HR* OxyCODONE/APAP 5/325 TABLET PO PRN ×2 (06:44→14:24)
[2016-08-28] MEDS: Ascorbic Acid 500 MG TABLET PO SCH (08:14)
[2016-08-28] MEDS: Insulin DETEMIR 100 UNIT/ML X5UNITS SQ SCH ×2 (08:15→21:57)
[2016-08-28] MEDS: amLODIPine 5 MG TABLET PO SCH (08:15)
[2016-08-28] MEDS: Sucralfate 1 GM TABLET PO SCH ×4 (08:15→21:58)
[2016-08-28] MEDS: Saline Nasal Spray 44 ML BOTTLE NS PRN (08:15)
[2016-08-28] MEDS: Insulin LISPRO 300 UNITS/3 ML VIAL SQ SCH ×4 (08:16→21:58)
[2016-08-28] MEDS ORDERED: Magnesium Sulfate 2 GM in D5% in Water 100 ML IVPB ONE (09:59)
[2016-08-28] MEDS: Budesonide/Formoterol 80/4.5 MDI IH SCH ×2 (10:16→20:04)
--- NOTE | 2016-08-28 10:18 | Pulmonology Progress Note ---
Date of Encounter: 08/28/16 Time of Encounter: 09:25 Assessment and Plan (1) COPD exacerbation Current Visit: Yes Status: Suspected No evidence of COPD exacerbation, however she is steroid dependent and suspect a component of asthma/reactive airway disease. Recommend to keep her on steroid such as taper prednisone to 20 mg daily until she follows up in the office after discharge from the hospital in 2-3 weeks. Continue bronchodilators. (2) Acute and chronic respiratory failure ([id number]) Current Visit: Yes Status: Acute This is improved with diuresis. Continue diuresis as much as possible and discussed with Dr. Argueta. Qualifiers: Respiratory failure complication: hypoxia Qualified Code(s): J96.21 - Acute and chronic respiratory failure with hypoxia (3) Pulmonary edema cardiac cause Current Visit: Yes Status: Resolved This is improved with diuresis Subjective Principal diagnosis: ELLE on CKD, COPD, PAF Interval history: Patient is feeling much better after diuresis and she has noticed improvement in her breathing and not requiring NIV Objective PUL Vital signs: Last Vital Signs Temp 98.4 F 08/28/16 07:27 Pulse 85 08/28/16 08:32 Resp 18 08/28/16 07:27 BP 159/91 08/28/16 07:27 Pulse Ox 93 08/28/16 08:32 General appearance: no acute distress Eyes: nonicteric ENT: oropharynx moist Mallampati (class): 3 Neck: supple, no lymphadenopathy Effort: normal Auscultation: bilateral: diminished breath sounds, rales (Has improved comparing to yesterday) Percussion: bilateral: not dull Cardiovascular: irregular rhythm Gastrointestinal: normoactive bowel sounds, non-distended Extremities: no cyanosis, edema normal mental status, non-focal exam mood appropriate Results - Laboratory Findings CBC and BMP: 08/28/16 04:47 08/28/16 04:47 PT/INR, D-dimer PT 10.3 Seconds (9.4-12.1) 08/25/16 16:51 Abnormal lab findings: Abnormal lab results RBC 3.31 M/mcL (3.82-4.97) L 08/28/16 04:47 Hgb 9.1 g/dL (11.5-15.4) L 08/28/16 04:47 Hct 28.2 % (35.3-44.9) L 08/28/16 04:47 MCH 27.5 pg (28.0-33.3) L 08/28/16 04:47 RDW 15.9 % (11.5-14.5) H 08/28/16 04:47 Lymphocytes # 0.3 K/mcL (0.6-4.6) L 08/28/16 04:47 APTT 65.9 Seconds (26.0-36.0) H 08/28/16 04:47 Heparin Anti-Xa, Unfract 1.96 IU/mL (0.30-0.70) H* 08/26/16 01:00 Sodium 135 mEq/L (136-145) L 08/28/16 04:47 BUN 96 mg/dL (7-20) H 08/28/16 04:47 Creatinine 2.44 mg/dL (0.57-1.11) H 08/28/16 04:47 Est GFR ( Amer) 23 (> 60) L 08/28/16 04:47 Est GFR (Non-Af Amer) 19 (> 60) L 08/28/16 04:47 BUN/Creatinine Ratio 39 (6-26) H 08/28/16 04:47 Glucose 405 mg/dL (70-99) H 08/28/16 04:47 POC Glucose 301 (58-89) H 08/27/16 20:17 Calculated Osmolality 327 (280-300) H 08/28/16 04:47 Uric Acid 10.4 mg/dL (2.6-6.0) H 08/25/16 12:10 Magnesium 1.5 mg/dL (1.6-2.6) L 08/28/16 04:47 Creatine Kinase 24 Units/L (29-168) L 08/25/16 12:10 Troponin I 0.04 ng/mL (0-0.03) H* 08/25/16 16:51 B-Natriuretic Peptide 125 pg/mL (0-100) H 08/25/16 16:51 Albumin 2.5 g/dL (3.5-5.0) L 08/28/16 04:47 TSH 0.028 mcIU/mL (0.350-4.840) L 08/25/16 16:51 Urine Protein 30 mg/dL (Neg-Trace) H 08/25/16 13:19 Urine Glucose (UA) 500 mg/dL (Normal) H 08/25/16 13:19 Ur Leukocyte Esterase Small (Negative) H 08/25/16 13:19 Urine Microscopic RBC 5-15 per hpf (0-3) H 08/25/16 13:19 Urine Microscopic WBC 5-15 per hpf (0-3) H 08/25/16 13:19 Ur Squamous Epith Cells Many per lpf (None-Few) H 08/25/16 13:19 Ur Culture Indicated? YES (NO) A 08/25/16 13:19 Protein/Creatinin Ratio 0.42 mg/mg (0-0.20) H 08/24/16 14:18 Urine Total Protein 22 mg/dL (1-14) H 08/24/16 14:18 Stool Occult Blood Positive (Negative) A 08/26/16 11:10 - Clinical Findings Intake & Output: Intake & Output 08/27/16 08/28/16 08/28/16 23:59 07:59 15:59 Intake Total 435 / 435 450 / 450 Output Total 300 / 300 700 / 700 900 / 900 Balance 135 / 135 -250 / -250 -900 / -900 Weight 88.7 kg Consult Discharge Plan - Plan Referrals: Jose,Therese Mccormick CNP [Primary Care Provider] - 08/30/16 9:45 am ()
[2016-08-28] MEDS ORDERED: Insulin DETEMIR 100 UNIT/ML X5UNITS SQ SCH (10:55)
--- NOTE | 2016-08-28 11:29 | General Surgery Progress Note ---
Date of Encounter: 08/28/16 Time of Encounter: 10:00 - Assessment and Plan (1) GI bleed Current Visit: No Status: Acute Acute on chronic gastrointestinal bleeding. She has had multiple workups and endoscopy by hematology, surgery, gastroenterology. At this time I do not think that urgent upper endoscopy will add anything to her treatment plan. I will be glad to discuss her case with Dr. Chaney and Dr. Escobedo on Monday08/27/2016. The patient has no complaints today her hemoglobin and hematocrit are stable. I see no indication for urgent or emergent endoscopic evaluation. I will continue to follow along with you. I would only recommend endoscopic evaluation for change in her clinical status or evidence of ongoing bleeding. 08/28/2016 No complaints, Hgb stable Will discuss with Dr. Chaney and Dr. Escobedo tomorrow to see if further work-up is indicated Qualifiers: GI bleed type/associated pathology: unspecified gastrointestinal hemorrhage type Qualified Code(s): K92.2 - Gastrointestinal hemorrhage, unspecified Subjective Narrative: Hgb stable at 9.1. No melena or vomitting blood. No further action necessary at this time. I will discuss with Dr. Chaney and Dr. Escobedo Objective Vital Signs - Last 8 Hours Temp Pulse Resp BP Pulse Ox 08/28/16 11:23 98.5 F 92 18 151/87 95 08/28/16 08:32 85 93 08/28/16 07:27 98.4 F 90 18 159/91 95 08/28/16 04:50 18 96 08/28/16 03:50 86 08/28/16 03:28 98.5 F 84 18 155/87 96 Intake and Output 08/27/16 08/28/16 08/28/16 23:59 07:59 15:59 Intake Total 435 / 435 450 / 450 Output Total 300 / 300 700 / 700 900 / 900 Balance 135 / 135 -250 / -250 -900 / -900 Intake: IV Fluids 195 / 195 Heparin 25,000 UNIT/500 195 / 195 ML D5W 25,000 unit In 500 ml @ 14 UNIT/KG/HR 26. 068 mls/hr IVC .[id number] [facility] Rx#:[id number] Oral 240 / 240 450 / 450 Output: Urine 300 / 300 700 / 700 900 / 900 Other: Meal Dinner Percent of Meal Consumed 100% Weight 88.7 kg Blood Glucose* 301 396 438 Patient Weight 08/28/16 23:59 Weight 88.7 kg - General physical appearance chronically ill, obese - Respiratory normal expansion, normal respiratory effort, clear to percussion, clear to auscultation - Cardiovascular Cardiovascular exam: Present: RRR, no murmurs/rubs/gallops - Abdomen Abdomen: Present: bowel sounds present, soft, non tender - Psychiatric oriented to time, oriented to person, oriented to place, speech is normal, memory intact - Labs 08/28/16 04:47 08/28/16 04:47 Diabetes panel 08/28/16 Range/Units 04:47 Sodium 135 L (136-145) mEq/L Potassium 4.1 (3.5-4.5) mEq/L Chloride 99 (98-109) mEq/L Carbon Dioxide 23 (19-29) mEq/L BUN 96 H (7-20) mg/dL Creatinine 2.44 H (0.57-1.11) mg/dL Glucose 405 H (70-99) mg/dL Calcium 9.5 (8.6-10.8) mg/dL Albumin 2.5 L (3.5-5.0) g/dL Calcium panel 08/28/16 Range/Units 04:47 Calcium 9.5 (8.6-10.8) mg/dL Phosphorus 4.5 (2.3-4.7) mg/dL Albumin 2.5 L (3.5-5.0) g/dL Pituitary panel 08/28/16 Range/Units 04:47 Sodium 135 L (136-145) mEq/L Potassium 4.1 (3.5-4.5) mEq/L Chloride 99 (98-109) mEq/L Carbon Dioxide 23 (19-29) mEq/L BUN 96 H (7-20) mg/dL Creatinine 2.44 H (0.57-1.11) mg/dL Glucose 405 H (70-99) mg/dL Calcium 9.5 (8.6-10.8) mg/dL Adrenal panel 08/28/16 Range/Units 04:47 Sodium 135 L (136-145) mEq/L Potassium 4.1 (3.5-4.5) mEq/L Chloride 99 (98-109) mEq/L Carbon Dioxide 23 (19-29) mEq/L BUN 96 H (7-20) mg/dL Creatinine 2.44 H (0.57-1.11) mg/dL Glucose 405 H (70-99) mg/dL Calcium 9.5 (8.6-10.8) mg/dL Albumin 2.5 L (3.5-5.0) g/dL Consult Discharge Plan - Plan Referrals: Therese Garcia CNP [Primary Care Provider] - 08/30/16 9:45 am ()
[2016-08-28] MEDS ORDERED: Insulin DETEMIR 100 UNIT/ML X5UNITS SQ ONE (11:45)
--- NOTE | 2016-08-28 11:51 | Nephrology Progress Note ---
Date of Encounter: 08/28/16 Time of Encounter: 11:50 - Assessment and Plan (1) CKD (chronic kidney disease) stage 4, GFR 15-29 ml/min Current Visit: Yes Status: Chronic Volume status and the mild hypervolemic hyponatremia has improved with the lasix 20mg IV bid. I agree and discussed with Pulmonology today. Continue. HTN: avoiding an JOHNATHAN or ARB. Was on clonidine until recent bradycardia when she was on the Cardizem gtt. Increasing the lasix today but may need further adjustments. COPD and PAF as per primary: she follows with [facility] in the clinic. The pt's PIV have been impacted recently: consider placement of a Midline, if indicated. Continue to follow a renal protective strategy. No need for REVENUE STAMPER at this time. Dose Rx by GFR. Strict I/Os. Will follow with you. Thank you. (2) Acute exacerbation of chronic obstructive airways disease Current Visit: Yes Status: Acute As per primary (3) Hypertension Current Visit: Yes Status: Chronic See above Qualifiers: Hypertension type: essential hypertension Qualified Code(s): I10 - Essential (primary) hypertension (4) Hyponatremia Current Visit: Yes Status: Acute See above Subjective Principal diagnosis: ELLE on CKD, COPD, PAF Interval history: Pt was s/e earlier today. She did not affirm N/V/D or uremic complaints. Her daughter was present. Swelling has slightly improved of her UE b/l. She was seen by Pulmonology and lasix was changed to IV. Objective - Vital Signs Vital signs: Vital Signs Temp Pulse Resp BP Pulse Ox 08/28/16 11:23 98.5 F 92 18 151/87 95 08/28/16 11:10 89 08/28/16 08:32 85 93 08/28/16 07:27 98.4 F 90 18 159/91 95 08/28/16 04:50 18 96 08/28/16 03:50 86 08/28/16 03:28 98.5 F 84 18 155/87 96 08/28/16 00:51 20 94 08/28/16 00:00 94 08/27/16 23:25 98.2 F 90 16 149/80 94 08/27/16 19:47 18 95 08/27/16 19:40 80 16 94 08/27/16 19:06 98.7 F 93 18 139/91 95 08/27/16 17:16 96 08/27/16 15:44 25 96 08/27/16 15:00 98.1 F 86 23 141/94 95 08/27/16 14:00 93 08/27/16 12:47 92 Intake and Output 08/27/16 08/28/16 08/28/16 23:59 07:59 15:59 Intake Total 435 / 435 450 / 450 646 / 646 Output Total 300 / 300 700 / 700 1500 / 1500 Balance 135 / 135 -250 / -250 -854 / -854 Intake: IV Fluids 195 / 195 296 / 296 Heparin 25,000 UNIT/500 195 / 195 296 / 296 ML D5W 25,000 unit In 500 ml @ 14 UNIT/KG/HR 26. 068 mls/hr IVC .[id number] [facility] Rx#:[id number] Oral 240 / 240 450 / 450 350 / 350 Output: Urine 300 / 300 700 / 700 1500 / 1500 Other: Meal Dinner Breakfast Percent of Meal Consumed 100% 100% Weight 88.7 kg Blood Glucose* 301 396 438 Patient Weight 08/28/16 23:59 Weight 88.7 kg - General Appearance General appearance: Present: well-developed, well-nourished, appears started age , obese EENT: Present: ATNC, PERRL, mucous membranes moist Neck: Present: supple Respiratory: Present: wheezing, course breath sounds Cardiology: Present: edema (of the UE but slightly improved), normal S1, normal S2 Gastrointestinal: Present: normoactive bowel sounds, no tenderness, no guarding , obese Integumentary: Present: no rash, warm and dry Neurologic: Present: no focal deficit, no asterixis, alert and oriented x3 Musculoskeletal: Present: no deformities, no erythema, no cyanosis Psychiatric: Present: mood/affect appropriate, cooperative - Lab 08/28/16 04:47 08/28/16 04:47 Most recent lab results Calcium 9.5 mg/dL (8.6-10.8) 08/28/16 04:47 Phosphorus 4.5 mg/dL (2.3-4.7) 08/28/16 04:47 Magnesium 1.5 mg/dL (1.6-2.6) L 08/28/16 04:47 Urine Creatinine 40 mg/dL 08/25/16 13:19 Urine Sodium 30.0 mEq/L 08/25/16 13:19 Urine Total Protein 22 mg/dL (1-14) H 08/24/16 14:18 Consult Discharge Plan - Plan Referrals: Therese Garcia CNP [Primary Care Provider] - 08/30/16 9:45 am ()
--- NOTE | 2016-08-28 12:03 | Internal Med Progress Note ---
Date of Encounter: 08/28/16 Time of Encounter: 10:40 - Assessment and plan (1) Acute exacerbation of chronic obstructive airways disease Current Visit: Yes Status: Acute Assessment and plan: patient initially improved with IV steroids and has been started on steroid taper, but noted to be worsening. She is currently on high-dose IV steroids. Pulmonology consult appreciated. Encouraged to use BiPAP as tolerated. She may require BiPAP qualification study prior to discharge, if she continues to need it. Continue supplemental oxygen and inhaled corticosteroids. (2) Anemia Current Visit: Yes Status: Chronic Qualifiers: Anemia type: iron deficiency Iron deficiency anemia type: unspecified iron deficiency Qualified Code(s): D50.9 - Iron deficiency anemia, unspecified (3) Atrial fibrillation with RVR Current Visit: Yes Status: Acute Assessment and plan: Currently noted to be in sinus rhythm, rate controlled. Continue Coreg, restart clonidine. Start Eliquis for long-term anticoagulation. (4) Ileus Current Visit: Yes Status: Resolved (5) Fall Current Visit: Yes Status: Acute Qualifiers: Encounter type: initial encounter Qualified Code(s): W19.XXXA - Unspecified fall, initial encounter (6) CKD (chronic kidney disease) stage 4, GFR 15-29 ml/min Current Visit: Yes Status: Chronic Assessment and plan: Serum creatinine improving. Monitor urine output closely and avoid new nephrotoxic agents. (7) Hypertension Current Visit: Yes Status: Chronic Qualifiers: Hypertension type: essential hypertension Qualified Code(s): I10 - Essential (primary) hypertension (8) History of CVA (cerebrovascular accident) Current Visit: Yes Status: Chronic (9) CHF (congestive heart failure) Current Visit: Yes Status: Chronic Assessment and plan: Improving. Continue IV Lasix, beta jean-pierre and supportive care. Qualifiers: Congestive heart failure type: diastolic Congestive heart failure chronicity: chronic Qualified Code(s): I50.32 - Chronic diastolic (congestive ) heart failure (10) Insulin dependent type 2 diabetes mellitus Current Visit: Yes Status: Chronic Assessment and plan: Noted to have worsening of steroid-induced hyperglycemia with increased steroids. Continue Accu-Chek blood glucose monitoring with sliding scale insulin. We will increase basal insulin. Diabetic diet. - Subjective Interval history: Reports feeling better than yesterday, but noted to have some distress while breathing and speaking; tolerates diet; no chest pain. HR controlled; - Constitutional Vitals: Temp Pulse Resp BP Pulse Ox 98.5 F 92 18 151/87 95 08/28/16 11:23 08/28/16 11:23 08/28/16 11:23 08/28/16 11:08/28/16 11:23 General appearance: Present: mild distress, A&O X 3, obese, answers questions appropriately - Respiratory Respiratory exam: Present: rhonchi (B/L coarse breath sounds with basal end- expiratory wheezing), wheezes. Absent: accessory muscle use, rales - Cardiovascular Cardiovascular exam: Present: RRR, +S1, +S2. Absent: diastolic murmur, gallop, rubs, systolic murmur - GI/Abdominal GI/Abdominal exam: Present: normal bowel sounds, soft (obese), no peritoneal signs. Absent: distended, tenderness - Extremities Exam Extremities exam: Present: full ROM, warm, radial pulses palpable and symetrical. Absent: calf tenderness, cyanotic, pedal edema Additional comments: peripheral extremity edema, more in upper extremities Internal Medicine: Result - Labs CBC & Chem 7: 08/28/16 04:47 08/28/16 04:47 Labs: Short CBC 08/28/16 Range/Units 04:47 WBC 8.3 (4.3-11.1) K/mcL Hgb 9.1 L (11.5-15.4) g/dL Hct 28.2 L (35.3-44.9) % Plt Count 205 (140-400) K/mcL Neutrophils # 7.6 (1.6-8.9) K/mcL BMP 08/28/16 04:47 Sodium 135 L Potassium 4.1 Chloride 99 Carbon Dioxide 23 BUN 96 H Creatinine 2.44 H Glucose 405 H Calcium 9.5 Liver Function 08/28/16 Range/Units 04:47 Albumin 2.5 L (3.5-5.0) g/dL - ABG Interpretation ABG results: PT/INR, D-dimer PT 10.3 Seconds (9.4-12.1) 08/25/16 16:51 Consult Discharge Plan - Plan Referrals: Therese Garcia CNP [Primary Care Provider] - 08/30/16 9:45 am ()
[2016-08-28] MEDS: APIXABAN 5 MG TABLET PO SCH ×2 (12:32→21:58)
[2016-08-28] MEDS: traMADol 50 MG TABLET PO PRN (12:32)
[2016-08-28] MEDS: cloNIDine HCl 0.1 MG TABLET PO SCH ×2 (14:21→21:57)
[2016-08-29] MEDS: Ipratropium/Albuterol Neb 3 ML IH SCH ×6 (00:15→19:37)
[2016-08-29] MEDS: MethylPREDNISolone 40 MG/ML VIAL IVP SCH ×3 (00:49→15:30)
[2016-08-29 03:33] LABS: Hematocrit 25.2 % (35.3-44.9); Hemoglobin 8.1 g/dL (11.5-15.4); Immature Granulocytes % 0.9 % (0-4); Lymphocytes # 0.3 K/mcL (0.6-4.6); Lymphocytes % 3.2 %; Mean Corpuscular HGB Conc 32.1 g/dL (31.6-35.5); Mean Corpuscular Hemoglobin 27.3 pg (28.0-33.3); Mean Corpuscular Volume 84.8 fL (83.0-100.0); Mean Platelet Volume 10.8 fL (9.4-12.4); Monocytes # 0.2 K/mcL (0.0-1.3); Monocytes % 2.1 %; Neutrophils # 7.6 K/mcL (1.6-8.9); Platelet Count 212 K/mcL (140-400); Red Blood Count 2.97 M/mcL (3.82-4.97); Red Cell Distribution Width 16.1 % (11.5-14.5); Segmented Neutrophils % 93.8 %
[2016-08-29 03:44] LABS: Calcium 9.5 mg/dL (8.6-10.8); Magnesium 1.8 mg/dL (1.6-2.6); Potassium 3.7 mEq/L (3.5-4.5)
[2016-08-29] MEDS: Budesonide/Formoterol 80/4.5 MDI IH SCH ×2 (07:49→19:37)
[2016-08-29] MEDS: amLODIPine 5 MG TABLET PO SCH (08:00)
[2016-08-29] MEDS: Sucralfate 1 GM TABLET PO SCH ×4 (08:00→21:42)
[2016-08-29] MEDS: Insulin DETEMIR 100 UNIT/ML X5UNITS SQ SCH ×2 (08:01→21:30)
[2016-08-29] MEDS: APIXABAN 5 MG TABLET PO SCH ×2 (08:01→21:43)
[2016-08-29] MEDS: cloNIDine HCl 0.1 MG TABLET PO SCH ×3 (08:01→21:42)
[2016-08-29] MEDS: Ascorbic Acid 500 MG TABLET PO SCH (08:01)
[2016-08-29] MEDS: Furosemide 20 MG/2 ML VIAL IVP SCH (08:01)
[2016-08-29] MEDS: Insulin LISPRO 300 UNITS/3 ML VIAL SQ SCH ×4 (08:02→21:43)
--- NOTE | 2016-08-29 09:08 | Pulmonology Progress Note ---
Date of Encounter: 08/29/16 Time of Encounter: 09:01 Assessment and Plan (1) Acute and chronic respiratory failure ([id number]) Current Visit: Yes Status: Acute Acute on chronic respiratory failure with hypoxia is due to underlying pulmonary edema as well as COPD. Continue current medical measures as outlined in provided by the primary service. Would recommend use of BiPAP at night and perhaps the patient should undergo an outpatient formal evaluation for appropriate physiologic titration with the assumption this individual has a high likelihood of obstructive sleep apnea. Otherwise, continue supplemental oxygen with saturation goal of 88%, bronchodilator therapy and systemic steroids. Call if any questions Bert Wong [phone] Qualifiers: Respiratory failure complication: hypoxia Qualified Code(s): J96.21 - Acute and chronic respiratory failure with hypoxia Subjective Principal diagnosis: ELLE on CKD, COPD, PAF Interval history: Patient notes a gradual reduction of breathlessness and a gradual improvement of cough and chest congestion and wheezing. Agent reportedly per her daughter still does experience desaturation events performing minimal activities. Objective PUL Vital signs: Last Vital Signs Temp 98.3 F 08/29/16 07:17 Pulse 85 08/29/16 08:17 Resp 16 08/29/16 07:53 BP 149/78 08/29/16 07:17 Pulse Ox 94 08/29/16 07:53 General appearance: no acute distress, other (Obese female) Eyes: nonicteric ENT: oropharynx moist Neck: supple Auscultation: bilateral: diminished breath sounds, wheezes Cardiovascular: irregular rhythm Gastrointestinal: normoactive bowel sounds, non-distended Extremities: no cyanosis, edema Musculoskeletal: no deformities normal mental status Results - Laboratory Findings CBC and BMP: 08/29/16 03:07 08/29/16 03:07 PT/INR, D-dimer PT 10.3 Seconds (9.4-12.1) 08/25/16 16:51 Abnormal lab findings: Abnormal lab results RBC 2.97 M/mcL (3.82-4.97) L 08/29/16 03:07 Hgb 8.1 g/dL (11.5-15.4) L 08/29/16 03:07 Hct 25.2 % (35.3-44.9) L 08/29/16 03:07 MCH 27.3 pg (28.0-33.3) L 08/29/16 03:07 RDW 16.1 % (11.5-14.5) H 08/29/16 03:07 Lymphocytes # 0.3 K/mcL (0.6-4.6) L 08/29/16 03:07 APTT 24.4 Seconds (26.0-36.0) L D 08/29/16 03:07 Heparin Anti-Xa, Unfract 1.96 IU/mL (0.30-0.70) H* 08/26/16 01:00 Sodium 135 mEq/L (136-145) L 08/29/16 03:07 BUN 104 mg/dL (7-20) H 08/29/16 03:07 Creatinine 2.49 mg/dL (0.57-1.11) H 08/29/16 03:07 Est GFR ( Amer) 23 (> 60) L 08/29/16 03:07 Est GFR (Non-Af Amer) 19 (> 60) L 08/29/16 03:07 BUN/Creatinine Ratio 42 (6-26) H 08/29/16 03:07 Glucose 266 mg/dL (70-99) H 08/29/16 03:07 POC Glucose 352 (58-89) H 08/28/16 20:23 Calculated Osmolality 322 (280-300) H 08/29/16 03:07 Uric Acid 10.4 mg/dL (2.6-6.0) H 08/25/16 12:10 Creatine Kinase 24 Units/L (29-168) L 08/25/16 12:10 Troponin I 0.04 ng/mL (0-0.03) H* 08/25/16 16:51 B-Natriuretic Peptide 125 pg/mL (0-100) H 08/25/16 16:51 Albumin 2.5 g/dL (3.5-5.0) L 08/28/16 04:47 TSH 0.028 mcIU/mL (0.350-4.840) L 08/25/16 16:51 Urine Protein 30 mg/dL (Neg-Trace) H 08/25/16 13:19 Urine Glucose (UA) 500 mg/dL (Normal) H 08/25/16 13:19 Ur Leukocyte Esterase Small (Negative) H 08/25/16 13:19 Urine Microscopic RBC 5-15 per hpf (0-3) H 08/25/16 13:19 Urine Microscopic WBC 5-15 per hpf (0-3) H 08/25/16 13:19 Ur Squamous Epith Cells Many per lpf (None-Few) H 08/25/16 13:19 Ur Culture Indicated? YES (NO) A 08/25/16 13:19 Protein/Creatinin Ratio 0.42 mg/mg (0-0.20) H 08/24/16 14:18 Urine Total Protein 22 mg/dL (1-14) H 08/24/16 14:18 Stool Occult Blood Positive (Negative) A 08/26/16 11:10 - Clinical Findings Intake & Output: Intake & Output 08/28/16 08/29/16 08/29/16 23:59 07:59 15:59 Intake Total 0 / 0 0 / 0 240 / 240 Output Total 450 / 450 700 / 700 Balance -450 / -450 -700 / -700 240 / 240 Weight 87.7 kg Consult Discharge Plan - Plan Referrals: Therese Garcia CNP [Primary Care Provider] - 08/30/16 9:45 am ()
--- NOTE | 2016-08-29 10:42 | Internal Med Progress Note ---
Date of Encounter: 08/29/16 Time of Encounter: 10:40 - Assessment and plan (1) Acute exacerbation of chronic obstructive airways disease Current Visit: Yes Status: Acute Assessment and plan: patient initially improved with IV steroids and has been started on steroid taper, but noted to be worsening and restarted on high-dose IV steroids. Currently improving. Pulmonology follow-up appreciated. Encouraged to use BiPAP as tolerated, especially during nights. She may require BiPAP qualification study prior to discharge, if she continues to need it. Continue supplemental oxygen and inhaled corticosteroids. Physical therapy evaluation pending. (2) Anemia Current Visit: Yes Status: Chronic Assessment and plan: Hemoglobin noted to be stable. Surgery consult appreciated, no indication for urgent EGD during this admission. We will continue to monitor hemoglobin for now. Qualifiers: Anemia type: iron deficiency Iron deficiency anemia type: unspecified iron deficiency Qualified Code(s): D50.9 - Iron deficiency anemia, unspecified (3) Atrial fibrillation with RVR Current Visit: Yes Status: Acute Assessment and plan: Currently noted to be in sinus rhythm, rate controlled. Continue Coreg, clonidine. Started Eliquis for long-term anticoagulation. (4) Ileus Current Visit: Yes Status: Resolved (5) Fall Current Visit: Yes Status: Inactive Qualifiers: Encounter type: initial encounter Qualified Code(s): W19.XXXA - Unspecified fall, initial encounter (6) CKD (chronic kidney disease) stage 4, GFR 15-29 ml/min Current Visit: Yes Status: Chronic Assessment and plan: Serum creatinine at baseline. Monitor urine output closely and avoid new nephrotoxic agents. Nephrology follow-up appreciated, to change Lasix to oral form. (7) Hypertension Current Visit: Yes Status: Chronic Assessment and plan: Blood pressure noted to be better controlled today, systolic in 140s. Continue Coreg, clonidine and by mouth Lasix. Cannot start JOHNATHAN inhibitor due to fluctuating renal function. Qualifiers: Hypertension type: essential hypertension Qualified Code(s): I10 - Essential (primary) hypertension (8) History of CVA (cerebrovascular accident) Current Visit: Yes Status: Chronic (9) CHF (congestive heart failure) Current Visit: Yes Status: Chronic Assessment and plan: Improving. Continue Lasix, beta jean-pierre and supportive care. Qualifiers: Congestive heart failure type: diastolic Congestive heart failure chronicity: chronic Qualified Code(s): I50.32 - Chronic diastolic (congestive ) heart failure (10) Insulin dependent type 2 diabetes mellitus Current Visit: Yes Status: Chronic Assessment and plan: Noted to have steroid-induced hyperglycemia. Blood sugar is noted to be better today. Continue Accu-Chek blood glucose monitoring with basal bolus insulin regimen. Diabetic diet. - Subjective Interval history: Daughter at bedside; patient is very sleepy and lethargic today, yawning, but answering appropriately; no chest pain or dyspnea; noted to be noncompliant with BiPAP, encouraged to use it more often and explained the importance; - Constitutional Vitals: Temp Pulse Resp BP Pulse Ox 98.3 F 85 16 149/78 94 08/29/16 07:17 08/29/16 08:17 08/29/16 07:53 08/29/16 07:08/29/16 07:53 General appearance: Present: A&O X 3 (lethargic, tired), obese, answers questions appropriately - Respiratory Respiratory exam: Present: rhonchi (coarse rhonchurous breath sounds B/L). Absent: accessory muscle use, rales, wheezes - Cardiovascular Cardiovascular exam: Present: RRR, +S1, +S2. Absent: diastolic murmur, gallop, rubs, systolic murmur - GI/Abdominal GI/Abdominal exam: Present: normal bowel sounds, soft, no peritoneal signs. Absent: distended, tenderness - Extremities Exam Extremities exam: Present: warm, radial pulses palpable and symetrical. Absent : calf tenderness, cyanotic, pedal edema Additional comments: upper extremity peripheral edema B/L Internal Medicine: Result - Labs CBC & Chem 7: 08/29/16 03:07 08/29/16 03:07 Labs: Short CBC 08/29/16 Range/Units 03:07 WBC 8.1 (4.3-11.1) K/mcL Hgb 8.1 L (11.5-15.4) g/dL Hct 25.2 L (35.3-44.9) % Plt Count 212 (140-400) K/mcL Neutrophils # 7.6 (1.6-8.9) K/mcL BMP 08/29/16 03:07 Sodium 135 L Potassium 3.7 Chloride 98 Carbon Dioxide 28 BUN 104 H Creatinine 2.49 H Glucose 266 H Calcium 9.5 - ABG Interpretation ABG results: PT/INR, D-dimer PT 10.3 Seconds (9.4-12.1) 08/25/16 16:51 - Impressions Impressions Retroperitoneum Ultrasound 08/26/16 13:00 IMPRESSION: 1. No hydronephrosis. 2. Grossly stable 1.3 cm left renal cyst. D/ : / 08/26/2016 13:55:30 Christine Cam MD / nic Interpreting Provider: Christine Cam MD Consult Discharge Plan - Plan Referrals: Kj Yost MD [Partnered Physician] - 09/13/16 1:00 pm Jose,Therese Mccormick CNP [Primary Care Provider] - 09/08/16 9:00 am ()
--- NOTE | 2016-08-29 12:55 | Nephrology Progress Note ---
Date of Encounter: 08/29/16 Time of Encounter: 10:00 - Assessment and Plan (1) CKD (chronic kidney disease) stage 4, GFR 15-29 ml/min Current Visit: Yes Status: Chronic Renal function is stable and improved the patient claims status seen with increased dose of Lasix. We will transition patient from 20 mg IV Lasix twice a day to 40 mg by mouth Lasix twice a day Continue to trend kidney function with daily chemistry Continue to avoid potential nephrotoxic agents No need for dialysis at this time (2) COPD exacerbation Current Visit: Yes Status: Suspected Continued management/care with primary team and pulmonology Consider midline placement due to difficulty with peripheral IV access Consider pulmonary rehabilitation as outpatient (3) Hypertension Current Visit: Yes Status: Chronic Continue avoiding an JOHNATHAN or ARB. Was on clonidine until recent bradycardia when she was on the Cardizem gtt. Lasix dose increased yesterday, transition to by mouth today. Patient continues to have elevated blood pressures with systolic BP in the high 140s. Qualifiers: Hypertension type: essential hypertension Qualified Code(s): I10 - Essential (primary) hypertension (4) Anemia Current Visit: Yes Status: Chronic Patient hgb relatively stable, but continuing to trend downwards. Continued management per primary team Qualifiers: Anemia type: iron deficiency Iron deficiency anemia type: unspecified iron deficiency Qualified Code(s): D50.9 - Iron deficiency anemia, unspecified (5) Hyponatremia Current Visit: Yes Status: Acute Stable Continue to watch with daily chemistry Subjective Principal diagnosis: ELLE on CKD, COPD, PAF Interval history: Patient reports feeling better today than she has previously. She reports that she has had continued improvement in her ability to breath. She reports that she feels her orthopnea is improving, though she does continue to require about 45 degress elevation in order to breath comfortably. She also reports having continued swelling in her upper extremities mostly. When asked about her urine production, she states that she continues to make a lot of urine, even more so with the increased dose of lasix. She denies any urinary symptoms of dysuria, hematuria, frothy urine, or flank pain. She does however reports some continued RLQ abdominal pain that is mild in nature. Objective - Vital Signs Vital signs: Vital Signs Temp Pulse Resp BP Pulse Ox 08/29/16 11:45 83 08/29/16 11:28 99.3 F 89 18 149/91 96 08/29/16 08:17 85 08/29/16 07:53 16 94 08/29/16 07:17 98.3 F 83 18 149/78 98 08/29/16 04:23 20 98 08/29/16 03:19 98.4 F 81 15 140/73 95 08/29/16 00:16 20 97 08/28/16 23:19 98.2 F 87 20 141/74 96 08/28/16 21:20 94 08/28/16 20:25 98.0 F 90 24 145/81 95 08/28/16 20:06 20 95 08/28/16 16:45 98.1 F 94 20 151/77 99 08/28/16 16:35 21 96 Intake and Output 08/28/16 08/29/16 08/29/16 23:59 07:59 15:59 Intake Total 0 / 0 0 / 0 240 / 240 Output Total 450 / 450 700 / 700 800 / 800 Balance -450 / -450 -700 / -700 -560 / -560 Intake: Oral 0 / 0 0 / 0 240 / 240 Output: Urine 450 / 450 700 / 700 800 / 800 Other: Meal Breakfast Percent of Meal Consumed 100% Weight 87.7 kg Blood Glucose* 352 224 295 Patient Weight 08/29/16 23:59 Weight 87.7 kg - General Appearance General appearance: Present: well-developed, well-nourished, appears started age EENT: Present: ATNC, mucous membranes moist, hearing intact Respiratory: Present: rales (mild in left lower lung) Cardiology: Present: no murmurs, no rub, no gallops, no edema, regular rate, regular rhythm, normal S1, normal S2 Gastrointestinal: Present: normoactive bowel sounds, no tenderness Integumentary: Present: no rash, warm and dry Additional Comments: Ecchymosis in right centered chest from previous leukocoria placement, ecchymosis and firmness in antecubital area of left arm Neurologic: Present: no focal deficit, no asterixis, alert and oriented x3 Musculoskeletal: Present: no deformities, no erythema, no cyanosis, no clubbing Psychiatric: Present: mood/affect appropriate, cooperative - Lab 08/29/16 03:07 08/29/16 03:07 Most recent lab results Calcium 9.5 mg/dL (8.6-10.8) 08/29/16 03:07 Phosphorus 4.5 mg/dL (2.3-4.7) 08/28/16 04:47 Magnesium 1.8 mg/dL (1.6-2.6) 08/29/16 03:07 Urine Creatinine 40 mg/dL 08/25/16 13:19 Urine Sodium 30.0 mEq/L 08/25/16 13:19 Urine Total Protein 22 mg/dL (1-14) H 08/24/16 14:18 Consult Discharge Plan - Plan Referrals: Kj Yost MD [Partnered Physician] - 09/13/16 1:00 pm Garcia,Therese Mccormick CNP [Primary Care Provider] - 09/08/16 9:00 am ()
[2016-08-29] MEDS: traMADol 50 MG TABLET PO PRN (15:30)
[2016-08-29] MEDS: Furosemide 40 MG TABLET PO SCH (17:10)
[2016-08-29] MEDS: *HR* OxyCODONE/APAP 5/325 TABLET PO PRN (21:50)
[2016-08-30] MEDS: Ipratropium/Albuterol Neb 3 ML IH SCH ×6 (00:02→20:09)
[2016-08-30] MEDS: MethylPREDNISolone 40 MG/ML VIAL IVP SCH ×3 (02:35→22:44)
[2016-08-30] MEDS: *HR* LORazepam 2 MG/ML VIAL IVP PRN (03:55)
[2016-08-30] MEDS: traMADol 50 MG TABLET PO PRN ×3 (03:55→23:00)
[2016-08-30 06:55] LABS: Basophils % 0.1 %; Hematocrit 24.3 % (35.3-44.9); Hemoglobin 7.7 g/dL (11.5-15.4); Immature Granulocytes % 0.7 % (0-4); Lymphocytes # 0.3 K/mcL (0.6-4.6); Lymphocytes % 3.2 %; Mean Corpuscular HGB Conc 31.7 g/dL (31.6-35.5); Mean Corpuscular Hemoglobin 26.6 pg (28.0-33.3); Mean Corpuscular Volume 84.1 fL (83.0-100.0); Mean Platelet Volume 9.9 fL (9.4-12.4); Monocytes # 0.2 K/mcL (0.0-1.3); Monocytes % 2.2 %; Neutrophils # 7.8 K/mcL (1.6-8.9); Platelet Count 210 K/mcL (140-400); Red Blood Count 2.89 M/mcL (3.82-4.97); Red Cell Distribution Width 16.3 % (11.5-14.5); Segmented Neutrophils % 93.8 %
[2016-08-30 07:14] LABS: Calcium 9.6 mg/dL (8.6-10.8); Magnesium 1.7 mg/dL (1.6-2.6); Potassium 3.5 mEq/L (3.5-4.5)
[2016-08-30] MEDS: Budesonide/Formoterol 80/4.5 MDI IH SCH ×2 (07:53→20:09)
[2016-08-30] MEDS: Insulin DETEMIR 100 UNIT/ML X5UNITS SQ SCH ×2 (08:04→22:42)
[2016-08-30] MEDS: Insulin LISPRO 300 UNITS/3 ML VIAL SQ SCH ×4 (08:05→22:45)
[2016-08-30] MEDS: Saline Nasal Spray 44 ML BOTTLE NS PRN (08:05)
[2016-08-30] MEDS: cloNIDine HCl 0.1 MG TABLET PO SCH ×3 (08:06→22:44)
[2016-08-30] MEDS: Sucralfate 1 GM TABLET PO SCH ×4 (08:06→22:43)
[2016-08-30] MEDS: APIXABAN 5 MG TABLET PO SCH ×2 (08:06→22:43)
[2016-08-30] MEDS: Ascorbic Acid 500 MG TABLET PO SCH (08:06)
[2016-08-30] MEDS: amLODIPine 5 MG TABLET PO SCH (08:07)
[2016-08-30] MEDS: Furosemide 40 MG TABLET PO SCH ×2 (08:07→15:58)
--- NOTE | 2016-08-30 12:47 | Internal Med Progress Note ---
Date of Encounter: 08/30/16 Time of Encounter: 10:00 - Assessment and plan (1) Acute exacerbation of chronic obstructive airways disease Current Visit: Yes Status: Acute Assessment and plan: patient initially improved with IV steroids and has been started on steroid taper, but noted to be worsening and restarted on high-dose IV steroids. Currently improving. Pulmonology follow-up appreciated. Encouraged to use BiPAP as tolerated, especially during nights. She may require BiPAP qualification study prior to discharge, if she continues to need it. Continue supplemental oxygen and inhaled corticosteroids. Physical therapy evaluation pending. - Pulmonology consult recommendation reviewed. Will place BiPAP qualification test. Patient may need a long-term by mouth steroids upon discharge. (2) CKD (chronic kidney disease) stage 4, GFR 15-29 ml/min Current Visit: Yes Status: Chronic Assessment and plan: Serum creatinine at baseline. Monitor urine output closely and avoid new nephrotoxic agents. Nephrology follow-up appreciated, to change Lasix to oral form. (3) History of CVA (cerebrovascular accident) Current Visit: Yes Status: Chronic Assessment and plan: Patient has had 2 recent ischemic strokes, uncertain etiology. Continue supportive care, she currently has no obvious hemiparesis. On Plavix and eliquis (4) DVT prophylaxis Current Visit: No Status: Acute (5) Atrial fibrillation with RVR Current Visit: Yes Status: Acute Assessment and plan: Currently noted to be in sinus rhythm, rate controlled. Continue Coreg, clonidine. Started Eliquis for long-term anticoagulation per cardiology recommendation. (6) GI bleed Current Visit: No Status: Acute Assessment and plan: Guaiac tested positive. General surgery consultation appreciated. Recommendation will be followed. Qualifiers: GI bleed type/associated pathology: unspecified gastrointestinal hemorrhage type Qualified Code(s): K92.2 - Gastrointestinal hemorrhage, unspecified (7) Anemia Current Visit: Yes Status: Chronic Assessment and plan: Hemoglobin noted to trend down slightly. Surgery consult appreciated, recommendation will be followed. We will continue to monitor hemoglobin for now. Qualifiers: Anemia type: iron deficiency Iron deficiency anemia type: unspecified iron deficiency Qualified Code(s): D50.9 - Iron deficiency anemia, unspecified - Time Spent With Patient 25 - 35 minutes - Subjective Interval history: Patient is a 76-year-old female admitted as COPD exacerbation. Her past medical history is significant for CKD, history of CVA, and COPD. Patient developed A. fib during hospitalization. Patient was seen and examined. She is awake alert, less shortness of breath now. No chest pain, no palpitation. vital signs stable, heart rate 75, sinus rhythm. We will continue current treatment, try to taper down oxygen and steroid. BiPAP qualification test ordered per pulmonology recommendation. - Constitutional Vitals: Temp Pulse Resp BP Pulse Ox 97.8 F 75 17 131/66 97 08/30/16 11:12 08/30/16 11:31 08/30/16 11:12 08/30/16 11:12 08/30/16 11:12 General appearance: Present: A&O X 3 (lethargic, tired), obese, answers questions appropriately - Head Head exam: Present: atraumatic, normocephalic - Eye Eye exam: Present: PERRL, conjuntiva pink, sclera anicteric Pupils: Present: PERRL - Neck Neck exam general surgery: Present: supple, trachea midline. Absent: lymphadenopathy - Respiratory Respiratory exam: Present: CTAB, wheezes (Scattered wheezes bilaterally). Absent: accessory muscle use, rales, rhonchi - Cardiovascular Cardiovascular exam: Present: RRR, +S1, +S2. Absent: diastolic murmur, gallop, rubs, systolic murmur - GI/Abdominal GI/Abdominal exam: Present: normal bowel sounds, soft, no peritoneal signs. Absent: distended, tenderness - Extremities Exam Extremities exam: Present: warm, radial pulses palpable and symetrical. Absent : calf tenderness, cyanotic, pedal edema - Neurological Exam Neurological exam: Present: CN II-XII intact, oriented X3, no focal deficits. Absent: pronater drift, facial droop, speech deficit - Skin Skin exam: Present: dry, intact Internal Medicine: Result - Labs CBC & Chem 7: 08/30/16 06:22 08/30/16 06:22 Labs: Short CBC 08/30/16 Range/Units 06:22 WBC 8.4 (4.3-11.1) K/mcL Hgb 7.7 L (11.5-15.4) g/dL Hct 24.3 L (35.3-44.9) % Plt Count 210 (140-400) K/mcL Neutrophils # 7.8 (1.6-8.9) K/mcL BMP 08/30/16 06:22 Sodium 139 Potassium 3.5 Chloride 100 Carbon Dioxide 29 BUN 106 H Creatinine 1.97 H Glucose 214 H Calcium 9.6 - ABG Interpretation ABG results: PT/INR, D-dimer PT 10.3 Seconds (9.4-12.1) 08/25/16 16:51 Consult Discharge Plan - Plan Referrals: Kj Yost MD [Partnered Physician] - 09/13/16 1:00 pm Garcia,Therese Mccormick CNP [Primary Care Provider] - 09/08/16 9:00 am ()
--- NOTE | 2016-08-30 16:54 | Nephrology Progress Note ---
Date of Encounter: 08/30/16 Time of Encounter: 11:00 - Assessment and Plan (1) CKD (chronic kidney disease) stage 4, GFR 15-29 ml/min Current Visit: Yes Status: Chronic SCr is trending better and her UOP is excellent: her volume status and the mild hypervolemic hyponatremia have both improved with the diuretics Suspect she may need to decrease the lasix from 40mg po bid down in the future, so she will need an outpt BMP checked in about 1 week. HTN: avoiding an JOHNATHAN or ARB. Improved COPD and PAF as per primary: she follows with [facility] in the clinic. The pt's PIV have been impacted recently: consider placement of a Midline, if indicated. Continue to follow a renal protective strategy. No need for SENIOR ENGINEERING MANAGER at this time. Dose Rx by GFR. Strict I/Os. Will follow with you. Thank you. (2) Acute exacerbation of chronic obstructive airways disease Current Visit: Yes Status: Acute As per primary (3) Hypertension Current Visit: Yes Status: Chronic See above Qualifiers: Hypertension type: essential hypertension Qualified Code(s): I10 - Essential (primary) hypertension (4) Hyponatremia Current Visit: Yes Status: Acute See above Subjective Principal diagnosis: ELLE on CKD, COPD, PAF Interval history: Pt was s/e earlier today. She did not affirm N/V/D or uremic complaints. Her daughter was present. Swelling has slightly improved of her UE b/l. She was seen by Pulmonology and lasix was changed to IV. Objective - Vital Signs Vital signs: Vital Signs Temp Pulse Resp BP Pulse Ox 08/30/16 15:38 97.6 F 79 18 135/70 95 08/30/16 11:31 75 08/30/16 11:24 18 94 08/30/16 11:12 97.8 F 73 17 131/66 97 08/30/16 08:00 69 08/30/16 07:55 18 99 08/30/16 07:07 97.8 F 68 18 152/75 97 08/30/16 04:17 18 97 08/30/16 03:24 97.9 F 66 16 146/70 98 08/30/16 00:06 98.1 F 74 16 146/73 98 08/30/16 00:03 18 98 08/29/16 20:00 97 08/29/16 19:52 97.8 F 83 16 137/72 96 08/29/16 19:40 18 96 Intake and Output 08/30/16 08/30/16 08/30/16 07:59 15:59 23:59 Intake Total 480 / 480 Output Total 800 / 800 1300 / 1300 Balance -800 / -800 -820 / -820 Intake: Oral 480 / 480 Output: Urine 800 / 800 1300 / 1300 Other: Meal Lunch Percent of Meal Consumed 100% Weight 87.6 kg Blood Glucose* 232 389 Patient Weight 08/30/16 23:59 Weight 87.6 kg - General Appearance General appearance: Present: well-developed, well-nourished, appears started age , obese EENT: Present: ATNC, PERRL, mucous membranes moist Neck: Present: supple Respiratory: Present: wheezing (but improved overall) Cardiology: Present: no murmurs, edema (less hand edema b/l and her LE edema has resolved), normal S1, normal S2 Gastrointestinal: Present: normoactive bowel sounds, no tenderness, no guarding , obese Integumentary: Present: no rash, warm and dry Neurologic: Present: no focal deficit, no asterixis, alert and oriented x3 Musculoskeletal: Present: no deformities, no erythema, no clubbing Psychiatric: Present: mood/affect appropriate, cooperative - Lab 08/31/16 04:32 08/31/16 04:32 Most recent lab results Calcium 9.6 mg/dL (8.6-10.8) 08/30/16 06:22 Phosphorus 4.5 mg/dL (2.3-4.7) 08/28/16 04:47 Magnesium 1.7 mg/dL (1.6-2.6) 08/30/16 06:22 Urine Creatinine 40 mg/dL 08/25/16 13:19 Urine Sodium 30.0 mEq/L 08/25/16 13:19 Urine Total Protein 22 mg/dL (1-14) H 08/24/16 14:18 Consult Discharge Plan - Plan Referrals: Kj Yost MD [Partnered Physician] - 09/13/16 1:00 pm Garcia,Therese Mccormick CNP [Primary Care Provider] - 09/08/16 9:00 am ()
[2016-08-31] MEDS: Ipratropium/Albuterol Neb 3 ML IH SCH ×7 (00:32→23:36)
[2016-08-31 04:40] LABS: Hematocrit 23.9 % (35.3-44.9); Hemoglobin 7.8 g/dL (11.5-15.4); Lymphocytes # 0.3 K/mcL (0.6-4.6); Mean Corpuscular HGB Conc 32.6 g/dL (31.6-35.5); Mean Corpuscular Hemoglobin 27.1 pg (28.0-33.3); Mean Platelet Volume 10.4 fL (9.4-12.4); Monocytes # 0.2 K/mcL (0.0-1.3); Monocytes % 2.3 %; Neutrophils # 8.4 K/mcL (1.6-8.9); Platelet Count 236 K/mcL (140-400); Red Blood Count 2.88 M/mcL (3.82-4.97); Red Cell Distribution Width 15.9 % (11.5-14.5); Segmented Neutrophils % 93.7 %
[2016-08-31 05:07] LABS: Calcium 9.5 mg/dL (8.6-10.8); Potassium 3.3 mEq/L (3.5-4.5)
[2016-08-31] MEDS: Budesonide/Formoterol 80/4.5 MDI IH SCH ×2 (07:49→19:51)
[2016-08-31] MEDS: MethylPREDNISolone 40 MG/ML VIAL IVP SCH ×2 (08:33→19:39)
[2016-08-31] MEDS: Insulin LISPRO 300 UNITS/3 ML VIAL SQ SCH ×4 (08:33→22:49)
[2016-08-31] MEDS: Sucralfate 1 GM TABLET PO SCH ×4 (08:34→19:45)
[2016-08-31] MEDS: Furosemide 40 MG TABLET PO SCH ×2 (08:34→17:08)
[2016-08-31] MEDS: cloNIDine HCl 0.1 MG TABLET PO SCH ×3 (08:34→19:39)
[2016-08-31] MEDS: APIXABAN 5 MG TABLET PO SCH ×2 (08:34→19:39)
[2016-08-31] MEDS: Ascorbic Acid 500 MG TABLET PO SCH (08:35)
[2016-08-31] MEDS: amLODIPine 5 MG TABLET PO SCH (08:35)
[2016-08-31] MEDS: Insulin DETEMIR 100 UNIT/ML X5UNITS SQ SCH ×2 (08:44→22:49)
--- NOTE | 2016-08-31 11:31 | Gastroenterology Consult Note ---
<Turner Carcamo - Last Filed: 08/31/16 11:28> Date of Encounter: 08/31/16 Time of Encounter: 10:25 - Assessment and plan (1) GI bleed Current Visit: No Status: Acute Assessment and plan: Pt with multiple work ups by hematology, surgery, and GI. Plan to complete capsule endoscopy as outpatient. Qualifiers: GI bleed type/associated pathology: unspecified gastrointestinal hemorrhage type Qualified Code(s): K92.2 - Gastrointestinal hemorrhage, unspecified (2) Chronic blood loss anemia Current Visit: No Status: Chronic Assessment and plan: Recommend capsule endoscopy as outpatient. (3) Colonic ulcer Current Visit: No Status: Acute Assessment and plan: Noted on colonoscopy 06/24/2016, treated with APC and clips. (4) Atrial fibrillation with RVR Current Visit: Yes Status: Acute - Time Spent With Patient Total time spent is greater than 50% in coordination of care (as documented) at patient's floor/unit and/or counseling patient: GI History of Present Illness - Data of Consult Patient: known to practice within the last 3 years Consult date: 08/31/16 Requesting Physician: Carroll Lujan MD - Consult Narrative Reason for consult: anemia, FOBT + History of present illness: Ms. 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 She was recently discharged from the hospital due to pneumonia. She denied fever , chills, chest pain, abdominal pain, nausea, vomiting, or diarrhea. Over the last several years she has received anticoagulation on several different occasions for her Afib, and each time she responds with GI hemorrhage. She was admitted with Hgb 10.4 which dropped to 8.6 on 08/26, FOBT was also positive on . Hgb today is 7.8. She had colonoscopy 06/24/[address] Escobedo which showed 4 scattered mucosal ulcerations treated with APC and clips. 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 We have been consulted due to continued down trend in her hemoglobin. Procedures: Colonoscopy 06/24/2016 Dr. Escobedo: Internal hemorrhoids and 4 scattered mucosal ulcerations treated with APC and clips. Biopsies show focally ulcerated mucosa and mild chronic inflammation. 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 NSAIDs: None Anticoagulation: Plavix Past Med Surg Social Fam HX - Past Medical History Medical history: cancer (Right breast), CHF, COPD, CVA, diabetes, renal disease (CKD IV) Psychiatric history: anxiety, depression - Past Surgical History Surgical History: breast surgery (right masectomy 11/20), cholecystectomy, hysterectomy - Social History Smoking Status: Former smoker Smokeless Tobacco Status: No Alcohol use: none Drug use: none - Family History Mother Family Member Ethnicity: Non- Living Status: Hx Family Cardiac Disorders: No Hx Family Respiratory Disorders: No Hx Family Cancer: Yes (colon) Father Living Status: Hx Family Cardiac Disorders: No Hx Family Respiratory Disorders: No Hx Family Cancer: Yes Hx Family GI Disorders: Yes Hx Family Endocrine Disorder: Yes Hx Family Neuromuscular Disorders: No Hx Family Neurologic Disorders: No Hx Family HEENT Disorders: No Hx Family Autoimmune Disorders: No - Gastrointestinal Gastrointestinal: Present: as per HPI - Constitutional Constitutional: as per HPI - EENT Eyes: as per HPI Ears: Present: as per HPI Nose, mouth and throat: Present: as per HPI - Cardiovascular Cardiovascular ROS: Present: as per HPI - Respiratory Respiratory IM: Present: as per HPI - Genitourinary Genitourinary: Absent: change in color, Urinary frequency - Neurological ROS Neurological GI: Present: as per HPI - Hematologic/Lymphatic Hematologic/Lymphatic pediatric: Present: as per HPI - Musculoskeletal Musculoskeletal ROS GI: Present: as per HPI - Integumentary Integumentary GI: Present: as per HPI - Psychiatric ROS Psychiatric GI: Present: as per HPI - Endocrine Endocrine IM: Present: as per HPI - Constitutional Vitals: Temp Pulse Resp BP Pulse Ox 97.7 F 73 18 128/74 93 08/31/16 11:17 08/31/16 11:17 08/31/16 11:17 08/31/16 11:17 08/31/16 11:17 General appearance: Present: cooperative, A&O X 3, no acute distress, answers questions appropriately - Head Head exam: Present: atraumatic, normocephalic - Eye Eye exam: Present: normal appearance, sclera anicteric - ENT ENT exam: Present: mucous membranes moist - Neck Neck exam general surgery: Present: normal inspection, trachea midline - Respiratory Respiratory exam: Present: decreased breath sounds, wheezes. Absent: rales, rhonchi - Cardiovascular Cardiovascular exam: Present: RRR, +S1, +S2 - GI/Abdominal GI/Abdominal exam: Present: soft, no peritoneal signs. Absent: distended, firm , guarding, tenderness - Rectal Rectal exam: Present: deferred - Extremities Exam Extremities exam: Present: warm - Neurological Exam Neurological exam: Present: no focal deficits - Psychiatric Psychiatric exam: Present: normal affect, normal mood - Skin Skin exam: Present: dry, intact, normal color, warm Results - Labs CBC & Chem 7: 08/31/16 04:32 08/31/16 04:32 Labs: Last Result Calcium 9.5 mg/dL (8.6-10.8) 08/31/16 04:32 Troponin I 0.04 ng/mL (0-0.03) H* 08/25/16 16:51 Stool Occult Blood Positive (Negative) A 08/26/16 11:10 Entire Visit Hgb 7.8 g/dL (11.5-15.4) L 08/31/16 04:32 Hct 23.9 % (35.3-44.9) L 08/31/16 04:32 PT 10.3 Seconds (9.4-12.1) 08/25/16 16:51 - ABG ABG results: PT/INR, D-dimer PT 10.3 Seconds (9.4-12.1) 08/25/16 16:51 Consult Discharge Plan - Plan Referrals: Kj Yost MD [Partnered Physician] - 09/13/16 1:00 pm Garcia,Therese Mccormick CNP [Primary Care Provider] - 09/08/16 9:00 am () <Prudence Escobedo - Last Filed: 08/31/16 14:05> Date of Encounter: 08/31/16 Time of Encounter: 13:00 - Time Spent With Patient Total time spent is greater than 50% in coordination of care (as documented) at patient's floor/unit and/or counseling patient: GI History of Present Illness - Data of Consult Requesting Physician: Carroll Lujan MD - Consult Narrative History of present illness: Ms. Parks is a 76 year old female - Constitutional Vitals: Temp Pulse Resp BP Pulse Ox 97.7 F 73 18 128/74 93 08/31/16 11:17 08/31/16 11:17 08/31/16 11:17 08/31/16 11:17 08/31/16 11:17 Results - Labs CBC & Chem 7: 08/31/16 04:32 08/31/16 04:32 Labs: Last Result Calcium 9.5 mg/dL (8.6-10.8) 08/31/16 04:32 Troponin I 0.04 ng/mL (0-0.03) H* 08/25/16 16:51 Stool Occult Blood Positive (Negative) A 08/26/16 11:10 Entire Visit Hgb 7.8 g/dL (11.5-15.4) L 08/31/16 04:32 Hct 23.9 % (35.3-44.9) L 08/31/16 04:32 PT 10.3 Seconds (9.4-12.1) 08/25/16 16:51 - ABG ABG results: PT/INR, D-dimer PT 10.3 Seconds (9.4-12.1) 08/25/16 16:51 - Attending Attestation I examined this patient and my medical decision-making was reviewed with the LAPIDARY APPRENTICE/PA/Advanced Practice Nurse/Resident Physician. I agree with the documented findings, disposition and treatment plan as described except to the extent set forth below. Patient with anemia. Had colonoscopy done by me in June that showed some bleeding small spots/ulcers in the ascending colon. Per Daughter she is still see some blood in the stool and is dark color. Question is whether she still has lesions in the right colon that could be bleeding. Follow her hemoglobin in the morning and if is still going down then we will do colonoscopy on
[2016-08-31] MEDS: traMADol 50 MG TABLET PO PRN (12:29)
[2016-08-31] MEDS ORDERED: 0.9 % Sodium Chloride 250 ML ONE (14:12)
--- NOTE | 2016-08-31 15:39 | Internal Med Progress Note ---
Date of Encounter: 08/31/16 Time of Encounter: 09:00 - Assessment and plan (1) Acute exacerbation of chronic obstructive airways disease Current Visit: Yes Status: Acute Assessment and plan: patient initially improved with IV steroids and has been started on steroid taper, but noted to be worsening and restarted on high-dose IV steroids. Currently improving. Pulmonology follow-up appreciated. Encouraged to use BiPAP as tolerated, especially during nights. She may require BiPAP qualification study prior to discharge, if she continues to need it. Continue supplemental oxygen and inhaled corticosteroids. Physical therapy evaluation pending. - Pulmonology consult recommendation reviewed. Will place BiPAP during night when pt is in hospital. Patient may need a long-term by mouth steroids upon discharge. (2) CKD (chronic kidney disease) stage 4, GFR 15-29 ml/min Current Visit: Yes Status: Chronic Assessment and plan: Serum creatinine at baseline. Monitor urine output closely and avoid new nephrotoxic agents. Nephrology follow-up appreciated, to change Lasix to oral form. (3) History of CVA (cerebrovascular accident) Current Visit: Yes Status: Chronic Assessment and plan: Patient has had 2 recent ischemic strokes, uncertain etiology. Continue supportive care, she currently has no obvious hemiparesis. On Plavix and eliquis (4) DVT prophylaxis Current Visit: No Status: Acute Assessment and plan: Pt is on Eliquis. (5) Atrial fibrillation with RVR Current Visit: Yes Status: Acute Assessment and plan: Currently noted to be in sinus rhythm, rate controlled. Continue Coreg, clonidine. Started Eliquis for long-term anticoagulation per cardiology recommendation. (6) GI bleed Current Visit: No Status: Acute Assessment and plan: Guaiac tested positive. GI consultation appreciated. Plan for capsule endoscope as outpatient. Right now hemoglobin is generally stable. We will give 1 unit PRBC today, follow-up H&H. Qualifiers: GI bleed type/associated pathology: unspecified gastrointestinal hemorrhage type Qualified Code(s): K92.2 - Gastrointestinal hemorrhage, unspecified (7) Anemia Current Visit: Yes Status: Chronic Assessment and plan: Hemoglobin noted to trend down slightly. GI will have capsule carvajal endoscope as outpatient. Given 1 unit PRBC today. We will continue to monitor hemoglobin for now. Qualifiers: Anemia type: iron deficiency Iron deficiency anemia type: unspecified iron deficiency Qualified Code(s): D50.9 - Iron deficiency anemia, unspecified - Subjective Interval history: Patient is a 76-year-old female admitted as COPD exacerbation. Her past medical history is significant for CKD, history of CVA, and COPD. Patient developed A. fib during hospitalization. Patient was seen and examined. She is awake alert, less shortness of breath now , still cough with minimal sputum. No chest pain, no palpitation. vital signs stable, heart rate 75, sinus rhythm. We will continue current treatment, try to taper down oxygen and steroid. BiPAP qualification test shows not qualify for home BiPAP, will continue BiPAP at night during hospitalization. Will give one unit of PRBC because relatively low H/H. - Constitutional Vitals: Temp Pulse Resp BP Pulse Ox 97.7 F 75 18 133/78 93 08/31/16 14:43 08/31/16 14:43 08/31/16 14:43 08/31/16 14:43 08/31/16 14:43 General appearance: Present: A&O X 3 (lethargic, tired), obese, answers questions appropriately - Head Head exam: Present: atraumatic, normocephalic - Eye Eye exam: Present: PERRL, conjuntiva pink, sclera anicteric Pupils: Present: PERRL - Neck Neck exam general surgery: Present: supple, trachea midline. Absent: lymphadenopathy - Respiratory Respiratory exam: Present: CTAB, wheezes (Scattered wheezes B/L). Absent: accessory muscle use, rales, rhonchi - Cardiovascular Cardiovascular exam: Present: RRR, +S1, +S2. Absent: diastolic murmur, gallop, rubs, systolic murmur - GI/Abdominal GI/Abdominal exam: Present: normal bowel sounds, soft, no peritoneal signs. Absent: distended, tenderness - Extremities Exam Extremities exam: Present: warm, radial pulses palpable and symetrical. Absent : calf tenderness, cyanotic, pedal edema - Neurological Exam Neurological exam: Present: CN II-XII intact, oriented X3, no focal deficits. Absent: pronater drift, facial droop, speech deficit - Skin Skin exam: Present: dry, intact Internal Medicine: Result - Labs CBC & Chem 7: 08/31/16 04:32 08/31/16 04:32 Labs: Short CBC 08/31/16 Range/Units 04:32 WBC 9.0 (4.3-11.1) K/mcL Hgb 7.8 L (11.5-15.4) g/dL Hct 23.9 L (35.3-44.9) % Plt Count 236 (140-400) K/mcL Neutrophils # 8.4 (1.6-8.9) K/mcL BMP 08/31/16 04:32 Sodium 136 Potassium 3.3 L Chloride 96 L Carbon Dioxide 28 BUN 113 H Creatinine 2.11 H Glucose 253 H Calcium 9.5 - ABG Interpretation ABG results: PT/INR, D-dimer PT 10.3 Seconds (9.4-12.1) 08/25/16 16:51 Consult Discharge Plan - Plan Referrals: Kj Yost MD [Partnered Physician] - 09/13/16 1:00 pm Garcia,Therese Mccormick CNP [Primary Care Provider] - 09/08/16 9:00 am ()
[2016-08-31] MEDS: *HR* OxyCODONE/APAP 5/325 TABLET PO PRN (19:38)
[2016-08-31] MEDS: *HR* LORazepam 2 MG/ML VIAL IVP PRN (20:47)
[2016-09-01] MEDS: traMADol 50 MG TABLET PO PRN ×2 (03:39→11:33)
[2016-09-01] MEDS: Ipratropium/Albuterol Neb 3 ML IH SCH ×5 (03:50→19:35)
[2016-09-01 06:57] LABS: Calcium 9.7 mg/dL (8.6-10.8); Phosphorous 3.9 mg/dL (2.3-4.7); Potassium 3.4 mEq/L (3.5-4.5)
[2016-09-01 07:12] LABS: Basophils % 0.1 %; Hematocrit 28.9 % (35.3-44.9); Immature Granulocytes % 1.1 % (0-4); Lymphocytes # 0.2 K/mcL (0.6-4.6); Lymphocytes % 2.6 %; Mean Corpuscular HGB Conc 32.9 g/dL (31.6-35.5); Mean Corpuscular Hemoglobin 27.5 pg (28.0-33.3); Mean Corpuscular Volume 83.8 fL (83.0-100.0); Mean Platelet Volume 10.5 fL (9.4-12.4); Monocytes # 0.3 K/mcL (0.0-1.3); Monocytes % 3.1 %; Neutrophils # 8.2 K/mcL (1.6-8.9); Platelet Count 269 K/mcL (140-400); Red Blood Count 3.45 M/mcL (3.82-4.97); Red Cell Distribution Width 15.4 % (11.5-14.5); Segmented Neutrophils % 93.1 %
[2016-09-01 07:13] LABS: Hemoglobin 9.5 g/dL (11.5-15.4)
[2016-09-01] MEDS: Budesonide/Formoterol 80/4.5 MDI IH SCH ×2 (07:45→19:35)
[2016-09-01] MEDS: cloNIDine HCl 0.1 MG TABLET PO SCH ×3 (07:53→21:33)
[2016-09-01] MEDS: Ascorbic Acid 500 MG TABLET PO SCH (07:53)
[2016-09-01] MEDS: APIXABAN 5 MG TABLET PO SCH ×2 (07:53→21:33)
[2016-09-01] MEDS: amLODIPine 5 MG TABLET PO SCH (07:53)
[2016-09-01] MEDS: Sucralfate 1 GM TABLET PO SCH ×4 (07:53→21:33)
[2016-09-01] MEDS: Furosemide 40 MG TABLET PO SCH (07:53)
[2016-09-01] MEDS: MethylPREDNISolone 40 MG/ML VIAL IVP SCH (07:55)
[2016-09-01] MEDS: Insulin DETEMIR 100 UNIT/ML X5UNITS SQ SCH ×2 (07:55→21:34)
[2016-09-01] MEDS: Insulin LISPRO 300 UNITS/3 ML VIAL SQ SCH ×4 (07:55→21:34)
--- NOTE | 2016-09-01 09:31 | Nephrology Progress Note ---
Date of Encounter: 09/01/16 Time of Encounter: 09:24 - Assessment and Plan (1) CKD (chronic kidney disease) stage 4, GFR 15-29 ml/min Current Visit: Yes Status: Chronic Scr continues to improve; back to baseline. Excellent UOP-2400ml yesterday, 3450ml on 08/30 Will decrease Lasix from 40mg p.o. BID to 40mg in am and 20mg in pm (2) Acute exacerbation of chronic obstructive airways disease Current Visit: Yes Status: Acute per primary team (3) Anemia Current Visit: Yes Status: Chronic Hgb up to 9.5 from 7.8 after 1 unit PRBCs Goal hgb 10-11 Qualifiers: Anemia type: iron deficiency Iron deficiency anemia type: unspecified iron deficiency Qualified Code(s): D50.9 - Iron deficiency anemia, unspecified Subjective Principal diagnosis: ELLE on CKD, COPD, PAF Interval history: Patient seen and examined. Daughter at bedside. Patient sitting up on side of bed; states she is feel better. Objective - Vital Signs Vital signs: Vital Signs Temp Pulse Resp BP Pulse Ox 09/01/16 08:21 97 09/01/16 07:31 97.7 F 71 16 149/75 97 09/01/16 05:54 98.2 F 78 11 146/74 95 09/01/16 03:52 12 94 09/01/16 00:49 97.9 F 74 16 138/80 95 08/31/16 23:38 16 96 08/31/16 20:10 18 96 08/31/16 19:56 18 94 08/31/16 19:29 97.6 F 78 18 145/75 93 08/31/16 17:35 97.8 F 79 18 152/87 93 08/31/16 15:49 18 93 08/31/16 15:48 97.5 F L 77 18 130/76 93 08/31/16 14:43 97.7 F 75 18 133/78 93 08/31/16 14:30 97.6 F 73 18 134/75 08/31/16 11:17 97.7 F 73 18 128/74 93 Intake and Output 08/31/16 09/01/16 09/01/16 23:59 07:59 15:59 Intake Total 760 / 760 60 / 60 360 / 360 Output Total 500 / 500 1350 / 1350 500 / 500 Balance 260 / 260 -1290 / -1290 -140 / -140 Intake: Oral 60 / 60 60 / 60 360 / 360 Blood Product 700 / 700 Rbcs Leuko Poor As-1 350 / 350 Unit [id number] Output: Urine 500 / 500 1350 / 1350 500 / 500 Other: Meal Breakfast Weight 88.7 kg Blood Glucose* 318 205 Patient Weight 09/01/16 23:59 Weight 88.7 kg - General Appearance General appearance: Present: well-developed, well-nourished, obese EENT: Present: ATNC, mucous membranes moist, hearing intact, vision intact Neck: Present: supple Respiratory: Present: rhonchi (right side) Cardiology: Present: edema (Bilat upper extremies; minimal in bilat feet), normal S1, normal S2 Gastrointestinal: Present: no tenderness, no guarding Integumentary: Present: warm and dry Neurologic: Present: alert and oriented x3 Psychiatric: Present: mood/affect appropriate, cooperative - Lab 09/01/16 06:33 09/01/16 06:33 Most recent lab results Calcium 9.7 mg/dL (8.6-10.8) 09/01/16 06:33 Phosphorus 3.9 mg/dL (2.3-4.7) 09/01/16 06:33 Magnesium 1.7 mg/dL (1.6-2.6) 08/30/16 06:22 Urine Creatinine 40 mg/dL 08/25/16 13:19 Urine Sodium 30.0 mEq/L 08/25/16 13:19 Urine Total Protein 22 mg/dL (1-14) H 08/24/16 14:18 Consult Discharge Plan - Plan Referrals: Kj Yost MD [Partnered Physician] - 09/13/16 1:00 pm Garcia,Therese Mccormick CNP [Primary Care Provider] - 09/08/16 9:00 am ()
[2016-09-01] MEDS ORDERED: *HR* Propofol 500 MG/50 ML BOTTLE IVC ONE (10:31)
[2016-09-01] MEDS ORDERED: Lidocaine -MPF 2% 5 ML VIAL INFILT ONE (10:31)
--- NOTE | 2016-09-01 11:22 | Gastroenterology Progress Note ---
Date of Encounter: 09/01/16 Time of Encounter: 10:10 - Assessment and plan (1) GI bleed Current Visit: No Status: Acute Assessment and plan: Pt with multiple work ups by hematology, surgery, and GI. Rectal exam with bloody stool, plan for colonoscopy tomorrow. Clear liquid diet today, no red or purple. NPO at midnight. If unable tolerate NuLytely please use MiraLAX prep. If not clear by 6 AM, give 2 tap water enemas. Plan to complete capsule endoscopy as outpatient. Qualifiers: GI bleed type/associated pathology: unspecified gastrointestinal hemorrhage type Qualified Code(s): K92.2 - Gastrointestinal hemorrhage, unspecified (2) Chronic blood loss anemia Current Visit: No Status: Chronic Assessment and plan: Rectal exam with bloody stool. Recommend colonoscopy tomorrow. Recommend capsule endoscopy as outpatient. (3) Colonic ulcer Current Visit: No Status: Acute Assessment and plan: Noted on colonoscopy 06/24/2016, treated with APC and clips. (4) Atrial fibrillation with RVR Current Visit: Yes Status: Acute - Time Spent With Patient Total time spent is greater than 50% in coordination of care (as documented) at patient's floor/unit and/or counseling patient: - Subjective Interval history: Pt denies abdominal pain. Daughter at bedside. Pt reports dark blood mixed in her stools, but denies bright red blood or tarry/sticky stools. - Constitutional Vitals: Temp Pulse Resp BP Pulse Ox 97.7 F 71 16 149/75 98 09/01/16 07:31 09/01/16 07:31 09/01/16 11:07 09/01/16 07:31 09/01/16 11:07 General appearance: Present: cooperative, A&O X 3, no acute distress, answers questions appropriately - Head Head exam: Present: atraumatic, normocephalic - Eye Eye exam: Present: normal appearance, sclera anicteric - ENT ENT exam: Present: mucous membranes moist - Neck Neck exam general surgery: Present: normal inspection, trachea midline - Respiratory Respiratory exam: Present: rhonchi, wheezes - Cardiovascular Cardiovascular exam: Present: RRR, +S1, +S2 - GI/Abdominal GI/Abdominal exam: Present: soft, no peritoneal signs. Absent: distended, firm , guarding, tenderness - Rectal Rectal exam: Present: bloody stool - Extremities Exam Extremities exam: Present: warm - Neurological Exam Neurological exam: Present: no focal deficits - Psychiatric Psychiatric exam: Present: normal affect, normal mood - Skin Skin exam: Present: dry, intact, normal color, warm Results - Labs CBC & Chem 7: 09/01/16 06:33 09/01/16 06:33 Labs: Last Result Calcium 9.7 mg/dL (8.6-10.8) 09/01/16 06:33 Troponin I 0.04 ng/mL (0-0.03) H* 08/25/16 16:51 Stool Occult Blood Positive (Negative) A 08/26/16 11:10 Entire Visit Hgb 9.5 g/dL (11.5-15.4) L D 09/01/16 06:33 Hct 28.9 % (35.3-44.9) L 09/01/16 06:33 PT 10.3 Seconds (9.4-12.1) 08/25/16 16:51 - ABG ABG results: PT/INR, D-dimer PT 10.3 Seconds (9.4-12.1) 08/25/16 16:51 - Impressions Impressions Pelvis X-Ray 08/31/16 16:21 IMPRESSION: No acute osseous abnormality. D/ / Kei Marie MD / Kei Marie MD Interpreting Provider: Kei Marie MD Consult Discharge Plan - Plan Referrals: Kj Yost MD [Partnered Physician] - 09/13/16 1:00 pm Garcia,Therese Mccormick CNP [Primary Care Provider] - 09/08/16 9:00 am ()
[2016-09-01] MEDS: *HR* OxyCODONE/APAP 5/325 TABLET PO PRN ×2 (15:17→21:33)
--- NOTE | 2016-09-01 15:59 | Internal Med Progress Note ---
Date of Encounter: 09/01/16 Time of Encounter: 09:00 - Assessment and plan (1) Acute exacerbation of chronic obstructive airways disease Current Visit: Yes Status: Acute Assessment and plan: patient initially improved with IV steroids and has been started on steroid taper, but noted to be worsening and restarted on high-dose IV steroids. Currently improving. Pulmonology follow-up appreciated. Encouraged to use BiPAP as tolerated, especially during nights. She may require BiPAP qualification study prior to discharge, if she continues to need it. Continue supplemental oxygen and inhaled corticosteroids. Symptoms has improved. - Pulmonology consult recommendation reviewed. Will place BiPAP during night when pt is in hospital. Patient may need a long-term by mouth steroids upon discharge. (2) CKD (chronic kidney disease) stage 4, GFR 15-29 ml/min Current Visit: Yes Status: Chronic Assessment and plan: Serum creatinine at baseline. Monitor urine output closely and avoid new nephrotoxic agents. Nephrology follow-up appreciated, to change Lasix to oral form. Dose adjusted by nephrology (3) History of CVA (cerebrovascular accident) Current Visit: Yes Status: Chronic Assessment and plan: Patient has had 2 recent ischemic strokes, uncertain etiology. Continue supportive care, she currently has no obvious hemiparesis. On Plavix and eliquis (4) DVT prophylaxis Current Visit: No Status: Acute Assessment and plan: Pt is on Eliquis. (5) Atrial fibrillation with RVR Current Visit: Yes Status: Acute Assessment and plan: Currently noted to be in sinus rhythm, rate controlled. Continue Coreg, clonidine. Started Eliquis for long-term anticoagulation per cardiology recommendation. (6) GI bleed Current Visit: No Status: Acute Assessment and plan: Guaiac tested positive. GI consultation appreciated. Plan for colonoscopy tomorrow and capsule endoscope as outpatient. 1 unit PRBC given, increased H&H after transfusion. Qualifiers: GI bleed type/associated pathology: unspecified gastrointestinal hemorrhage type Qualified Code(s): K92.2 - Gastrointestinal hemorrhage, unspecified (7) Anemia Current Visit: Yes Status: Chronic Assessment and plan: Hemoglobin noted to trend down slightly. GI will have colonoscopy tomorrow and capsule carvajal endoscope as outpatient. Hemoglobin has increased after transfusion. Qualifiers: Anemia type: iron deficiency Iron deficiency anemia type: unspecified iron deficiency Qualified Code(s): D50.9 - Iron deficiency anemia, unspecified - Time Spent With Patient 25 - 35 minutes - Subjective Interval history: Patient is a 76-year-old female admitted as COPD exacerbation. Her past medical history is significant for CKD, history of CVA, and COPD. Patient developed A. fib during hospitalization. Patient was seen and examined. She is awake alert, less shortness of breath now , still cough with minimal sputum. No chest pain, no palpitation. vital signs stable, heart rate 75, sinus rhythm. We will continue current treatment, try to taper down oxygen and steroid. H/H increased after transfusion. GI plan for colonoscope b/o bloody stool on rectal exam. - Constitutional Vitals: Temp Pulse Resp BP Pulse Ox 97.5 F L 62 16 137/85 96 09/01/16 15:14 09/01/16 15:14 09/01/16 15:14 09/01/16 15:14 09/01/16 15:14 General appearance: Present: A&O X 3 (lethargic, tired), obese, answers questions appropriately - Head Head exam: Present: atraumatic, normocephalic - Eye Eye exam: Present: PERRL, conjuntiva pink, sclera anicteric Pupils: Present: PERRL - Neck Neck exam general surgery: Present: supple, trachea midline. Absent: lymphadenopathy - Respiratory Respiratory exam: Present: CTAB, wheezes (Scattered wheezes bilaterally). Absent: accessory muscle use, rales, rhonchi - Cardiovascular Cardiovascular exam: Present: RRR, +S1, +S2. Absent: diastolic murmur, gallop, rubs, systolic murmur - GI/Abdominal GI/Abdominal exam: Present: normal bowel sounds, soft, no peritoneal signs. Absent: distended, tenderness - Extremities Exam Extremities exam: Present: warm, radial pulses palpable and symetrical. Absent : calf tenderness, cyanotic, pedal edema - Neurological Exam Neurological exam: Present: CN II-XII intact, oriented X3, no focal deficits. Absent: pronater drift, facial droop, speech deficit - Skin Skin exam: Present: dry, intact Internal Medicine: Result - Labs CBC & Chem 7: 09/01/16 06:33 09/01/16 06:33 Labs: Short CBC 09/01/16 Range/Units 06:33 WBC 8.9 (4.3-11.1) K/mcL Hgb 9.5 L D (11.5-15.4) g/dL Hct 28.9 L (35.3-44.9) % Plt Count 269 (140-400) K/mcL Neutrophils # 8.2 (1.6-8.9) K/mcL BMP 09/01/16 06:33 Sodium 141 Potassium 3.4 L Chloride 98 Carbon Dioxide 31 H BUN 116 H Creatinine 2.08 H Glucose 205 H Calcium 9.7 - ABG Interpretation ABG results: PT/INR, D-dimer PT 10.3 Seconds (9.4-12.1) 08/25/16 16:51 - Impressions Impressions Pelvis X-Ray 08/31/16 16:21 IMPRESSION: No acute osseous abnormality. D/ / Kei Marie MD / Kei Marie MD Interpreting Provider: Kei Marie MD Consult Discharge Plan - Plan Referrals: Kj Yost MD [Partnered Physician] - 09/13/16 1:00 pm Garcia,Therese cMcormick CNP [Primary Care Provider] - 09/08/16 9:00 am ()
[2016-09-01] MEDS: predniSONE 20 MG TABLET PO SCH (16:40)
[2016-09-01] MEDS: Furosemide 20 MG TABLET PO SCH (16:40)
[2016-09-01] MEDS ORDERED: SODIUM CHLORIDE/NAHCO3/KCL/PEG 4,000 ML SOLN.RECON PO ONE (17:00)
[2016-09-02] MEDS: Ipratropium/Albuterol Neb 3 ML IH SCH ×7 (00:19→23:12)
[2016-09-02 06:09] LABS: Basophils % 0.1 %; Hematocrit 27.6 % (35.3-44.9); Immature Granulocytes % 2.2 % (0-4); Immature Platelets 4.3 % (1.1-6.1); Lymphocytes # 0.3 K/mcL (0.6-4.6); Lymphocytes % 3.4 %; Mean Corpuscular HGB Conc 32.6 g/dL (31.6-35.5); Mean Corpuscular Hemoglobin 27.6 pg (28.0-33.3); Mean Corpuscular Volume 84.7 fL (83.0-100.0); Monocytes # 0.3 K/mcL (0.0-1.3); Monocytes % 3.6 %; Neutrophils # 7.6 K/mcL (1.6-8.9); Platelet Count 266 K/mcL (140-400); Red Blood Count 3.26 M/mcL (3.82-4.97); Red Cell Distribution Width 15.1 % (11.5-14.5); Segmented Neutrophils % 90.7 %
[2016-09-02 06:39] LABS: Calcium 9.1 mg/dL (8.6-10.8); Potassium 3.5 mEq/L (3.5-4.5)
[2016-09-02] MEDS: Budesonide/Formoterol 80/4.5 MDI IH SCH ×2 (07:52→20:24)
[2016-09-02] MEDS: Insulin LISPRO 300 UNITS/3 ML VIAL SQ SCH ×4 (07:54→22:01)
[2016-09-02] MEDS: Insulin DETEMIR 100 UNIT/ML X5UNITS SQ SCH ×2 (07:58→21:57)
[2016-09-02] MEDS: Sucralfate 1 GM TABLET PO SCH ×4 (07:59→21:56)
[2016-09-02] MEDS: Ascorbic Acid 500 MG TABLET PO SCH (08:03)
[2016-09-02] MEDS: Furosemide 40 MG TABLET PO SCH (08:03)
[2016-09-02] MEDS: predniSONE 20 MG TABLET PO SCH ×2 (08:03→16:55)
[2016-09-02] MEDS: cloNIDine HCl 0.1 MG TABLET PO SCH ×3 (08:03→21:56)
[2016-09-02] MEDS: amLODIPine 5 MG TABLET PO SCH (08:03)
[2016-09-02] MEDS: *HR* Dextrose 50 % in Water (Syg) 50 ML SYRINGE IVP PRN (08:07)
[2016-09-02] MEDS ORDERED: Vancomycin 1,250 MG in D5% in Water 250 ML IVPB ONE (09:00)
[2016-09-02] MEDS ORDERED: Furosemide 40 MG TABLET PO SCH (09:00)
[2016-09-02] MEDS ORDERED: Vancomycin 1 EACH in D5% in Water 250 ML IVPB SCH (09:00)
[2016-09-02] MEDS ORDERED: Vancomycin 1,000 MG in D5% in Water 250 ML IVPB ONE (09:30)
--- NOTE | 2016-09-02 10:06 | Anesthesia Evaluation PreOp ---
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 Other Medical History: Renal (Stage 4), Diabetes Type II Anesthesia History: No Prior Anesthetic Complications, Past Anesthesia (GB, SHAKEEL) : No Alcohol Use: none Drug use: none Medications and Allergies Cetirizine HCl [Zyrtec] 10 mg PO HS 04/17/15 [History] Cholecalciferol (Vitamin D3) [Vitamin D3] 2,000 unit PO DAILY 04/17/15 [History] Glimepiride 4 mg PO QAM 04/17/15 [History] Promethazine [Phenergan] 12.5 - 25 mg PO Q6-8H PRN 04/17/15 [History] Albuterol Sulfate [Albuterol Inhaler] 2 puff IH Q6H PRN 10/12/15 [History] Furosemide [Lasix] 20 mg PO DAILY 10/12/15 [History] Omeprazole [PriLOSEC] 20 mg PO DAILY 10/12/15 [History] Amlodipine [Norvasc] 10 mg PO DAILY 01/26/16 [History] Ascorbate Calcium [Vitamin C] 500 mg PO DAILY 06/14/16 [History] Atorvastatin [Lipitor] 10 mg PO HS 06/14/16 [History] Calcitriol [Rocaltrol] 0.25 mcg PO DAILY 06/14/16 [History] Docusate [Colace] 100 mg PO DAILY PRN 06/14/16 [History] Guaifenesin [Mucinex] 600 mg PO Q12H PRN 06/14/16 [History] Linagliptin [Tradjenta] 5 mg PO DAILY 06/14/16 [History] Alendronate Sodium [Fosamax] 70 mg PO QWEEK 06/22/16 [History] Budesonide/Formoterol 80/4.5 [Symbicort 80/4.5] 2 puff IH Q12H 06/22/16 [ History] Calcium Carbonate [Calcium] 600 mg PO BID 06/22/16 [History] Albuterol Neb [Proventil Neb] 2.5 mg IH Q4H PRN 07/27/16 [History] Carvedilol 3.125 mg PO BID 07/27/16 [History] CloNIDine HCl 0.1 mg PO Q8H 07/27/16 [History] Famotidine [Pepcid] 20 mg PO BID 07/27/16 [History] Sucralfate [Carafate] 1 gm PO ACHS 07/27/16 [History] HYDROcodone/Acet 7.5/325 mg [Thayer 7.5-325 mg] 1 tab PO Q6H PRN 08/02/16 [ History] Insulin ASPART [NovoLOG] 6 - 18 unit SQ ACHS 08/02/16 [History] Insulin Glargine,Hum.rec.anlog [Lantus Solostar] 10 unit SQ QAM 08/02/16 [ History] Acetaminophen w/Cod 300-30 mg [Tylenol w/Codeine #3] 1 each PO Q4H PRN 08/15/16 [History] Clopidogrel [Plavix] 75 mg PO DAILY 08/15/16 [History] PredniSONE 10 mg PO TAPER 08/15/16 [History] Donepezil HCl [Aricept] 5 mg PO HS 08/22/16 [History] Insulin Glargine,Hum.rec.anlog [Lantus Solostar] 8 unit SQ QPM 08/22/16 [History ] Ipratropium/Albuterol Neb [Duoneb] 3 ml IH Q4HR 08/22/16 [History] Ipratropium/Albuterol Neb [Duoneb] 3 ml IH QID PRN 08/22/16 [History] Iron Polysaccharide Complex [Pro Fe] 180 mg PO DAILY 08/22/16 [History] Letrozole [Femara] 2.5 mg PO DAILY 08/22/16 [History] Oxycodone HCl/Acetaminophen [Percocet 5-325 mg Tablet] 1 each PO Q4H PRN [History] Allergies aspirin [ASA] Allergy (Verified 08/18/16 15:30) Swelling of Lip/Tongue/Throat NSAIDS (Non-Steroidal Anti-Inflamma Allergy (Verified 08/18/16 15:30) Swelling of Lip/Tongue/Throat Penicillins Allergy (Verified 08/18/16 15:30) Hives iron Adverse Reaction (Verified 08/18/16 15:30) Unknown Push only - Meds/Allergy Pre-op Review Medications Reviewed: Yes Allergies Reviewed: Yes Beta Blockers on Current Med List: Yes If Beta Blockers taken, Date/Time (Last Dose taken): 09/02/2016 @ 08:03 Anesthesia Results - Labs 09/02/16 05:36 09/02/16 05:36 - Imaging EKG: image reviewed (SR) Anesthesia Exam O2 Sat Weight 88.5 kg O2 Sat by Pulse Oximetry 96 O2 Sat by Pulse Oximetry 96 O2 Sat by Pulse Oximetry 96 O2 Sat by Pulse Oximetry 96 O2 Sat by Pulse Oximetry 97 O2 Sat by Pulse Oximetry 97 O2 Sat by Pulse Oximetry 98 O2 Sat by Pulse Oximetry 94 O2 Sat by Pulse Oximetry 94 O2 Sat by Pulse Oximetry 97 O2 Sat by Pulse Oximetry 96 O2 Sat by Pulse Oximetry 95 O2 Sat by Pulse Oximetry 98 Vital Signs Temp Pulse Resp BP Pulse Ox 98.6 F 85 18 143/69 93 08/22/16 13:15 08/22/16 13:15 08/22/16 13:15 08/22/16 13:15 08/22/16 13:15 Vital Signs/O2 Sat, Most Current Temp Pulse Resp BP Pulse Ox 97.3 F L 70 16 152/78 96 09/02/16 07:52 09/02/16 07:52 09/02/16 07:56 09/02/16 07:52 09/02/16 08:15 Height: 5'5'' Weight: 195# NPO (# of Hours): > 8 hrs Pain Scale: 0 Pain Scale Used: Numeric (1 - 10) - HEENT Pupil (Motor): Pupils equal, EOMI Mallampati: III Oral Opening: Greater than 3 - 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
[2016-09-02] MEDS: Acetylcysteine 10% 2 ML INHSOL IH SCH ×5 (11:14→23:12)
[2016-09-02] MEDS: APIXABAN 5 MG TABLET PO SCH ×2 (11:37→21:56)
[2016-09-02] MEDS: Cefepime HCl 1,000 MG in D5% in Water (Mini-Bag+) 100 ML IVPB SCH ×2 (11:44→21:57)
[2016-09-02] MEDS: *HR* OxyCODONE/APAP 5/325 TABLET PO PRN (13:10)
--- NOTE | 2016-09-02 15:11 | Nephrology Progress Note ---
Date of Encounter: 09/02/16 Time of Encounter: 15:08 - Assessment and Plan (1) CKD (chronic kidney disease) stage 4, GFR 15-29 ml/min Current Visit: Yes Status: Chronic Patient seen and evaluated. Will continue with current plan. Creatinine slightly improved. (2) Acute exacerbation of chronic obstructive airways disease Current Visit: Yes Status: Acute Per primary team. (3) Anemia Current Visit: Yes Status: Chronic Follow hemoglobin. Transfuse as needed. Qualifiers: Anemia type: iron deficiency Iron deficiency anemia type: unspecified iron deficiency Qualified Code(s): D50.9 - Iron deficiency anemia, unspecified Subjective Principal diagnosis: ELLE on CKD, COPD, PAF Interval history: Patient seen and evaluated. She has no new complaints. She reports her breathing is improving. ROS otherwise seems stable. Objective - Vital Signs Vital signs: Vital Signs Temp Pulse Resp BP Pulse Ox 09/02/16 12:10 97.3 F L 78 16 128/78 96 09/02/16 12:02 16 95 09/02/16 10:07 73 18 148/87 93 09/02/16 08:15 96 09/02/16 07:56 16 96 09/02/16 07:52 97.3 F L 70 18 152/78 96 09/02/16 06:30 95.1 F L 09/02/16 04:16 64 17 132/64 96 09/02/16 03:56 18 153/87 97 09/02/16 00:19 18 97 09/01/16 22:56 97.4 F L 59 17 153/87 98 09/01/16 19:56 97.5 F L 61 18 123/71 94 09/01/16 19:35 16 94 09/01/16 16:15 18 97 09/01/16 15:14 97.5 F L 62 16 137/85 96 Intake and Output 09/01/16 09/02/16 09/02/16 23:59 07:59 15:59 Intake Total 600 / 600 Output Total 750 / 750 Balance 600 / 600 -750 / -750 Intake: Oral 600 / 600 Output: Urine 750 / 750 Other: Meal Dinner Weight 88.5 kg Blood Glucose* 236 51 144 Patient Weight 09/02/16 23:59 Weight 88.5 kg - General Appearance General appearance: Present: well-developed, well-nourished EENT: Present: ATNC Neck: Present: supple Respiratory: Present: clear (anteriorly) Cardiology: Present: regular rate, regular rhythm Gastrointestinal: Present: normoactive bowel sounds, no tenderness Integumentary: Present: warm and dry Additional Comments: Alert Psychiatric: Present: mood/affect appropriate - Lab 09/02/16 05:36 09/02/16 05:36 Most recent lab results Calcium 9.1 mg/dL (8.6-10.8) 09/02/16 05:36 Phosphorus 3.9 mg/dL (2.3-4.7) 09/01/16 06:33 Magnesium 1.7 mg/dL (1.6-2.6) 08/30/16 06:22 Urine Creatinine 40 mg/dL 08/25/16 13:19 Urine Sodium 30.0 mEq/L 08/25/16 13:19 Urine Total Protein 22 mg/dL (1-14) H 08/24/16 14:18 Consult Discharge Plan - Plan Referrals: Kj Yost MD [Partnered Physician] - 09/13/16 1:00 pm Garcia,Therese Mccormick CNP [Primary Care Provider] - 09/08/16 9:00 am ()
--- NOTE | 2016-09-02 16:43 | Internal Med Progress Note ---
Date of Encounter: 09/02/16 Time of Encounter: 10:00 - Assessment and plan (1) Acute exacerbation of chronic obstructive airways disease Current Visit: Yes Status: Acute Assessment and plan: patient initially improved with IV steroids and has been started on steroid taper, but noted to be worsening and restarted on high-dose IV steroids. Currently improving. Pulmonology follow-up appreciated. Encouraged to use BiPAP as tolerated, especially during nights. She may require BiPAP qualification study prior to discharge, if she continues to need it. Continue supplemental oxygen and inhaled corticosteroids. Symptoms has improved. - Pulmonology consult recommendation reviewed. Will place BiPAP during night when pt is in hospital. Patient may need a long-term by mouth steroids upon discharge. (2) CKD (chronic kidney disease) stage 4, GFR 15-29 ml/min Current Visit: Yes Status: Chronic Assessment and plan: Serum creatinine at baseline. Monitor urine output closely and avoid nephrotoxic agents. Nephrology follow-up appreciated, to change Lasix to oral form. Dose adjusted by nephrology (3) History of CVA (cerebrovascular accident) Current Visit: Yes Status: Chronic Assessment and plan: Patient has had 2 recent ischemic strokes, uncertain etiology. Continue supportive care, she currently has no obvious hemiparesis. On Plavix and eliquis (4) DVT prophylaxis Current Visit: No Status: Acute Assessment and plan: Pt is on Eliquis. (5) Atrial fibrillation with RVR Current Visit: Yes Status: Acute Assessment and plan: Currently noted to be in sinus rhythm, rate controlled. Continue Coreg, clonidine. Started Eliquis for long-term anticoagulation per cardiology recommendation. (6) GI bleed Current Visit: No Status: Acute Assessment and plan: Guaiac tested positive. GI consultation appreciated. Had colonoscope, clip placed for angioectasia. Continue closely monitor H&H. Qualifiers: GI bleed type/associated pathology: unspecified gastrointestinal hemorrhage type Qualified Code(s): K92.2 - Gastrointestinal hemorrhage, unspecified (7) Anemia Current Visit: Yes Status: Chronic Assessment and plan: Hemoglobin noted to trend down slightly. GI will have colonoscopy done. Closely monitor H&H Qualifiers: Anemia type: iron deficiency Iron deficiency anemia type: unspecified iron deficiency Qualified Code(s): D50.9 - Iron deficiency anemia, unspecified - Time Spent With Patient 25 - 35 minutes - Subjective Interval history: Patient is a 76-year-old female admitted as COPD exacerbation. Her past medical history is significant for CKD, history of CVA, and COPD. Patient developed A. fib during hospitalization. Patient was seen and examined. She is awake alert, less shortness of breath now , still cough with some sputum. No chest pain, no palpitation. vital signs stable, heart rate 75, sinus rhythm. Pt has hypothermia today, CXR shows increased infiltrate, will add Vanco and cefepime for hospital acquired pneumonia. Pt had colonoscope and there is angioectasia, clip placed. We will continue closely monitor pt. - Constitutional Vitals: Temp Pulse Resp BP Pulse Ox 97.6 F 69 16 139/75 98 09/02/16 15:50 09/02/16 15:50 09/02/16 16:07 09/02/16 15:50 09/02/16 16:07 General appearance: Present: A&O X 3 (lethargic, tired), obese, answers questions appropriately - Head Head exam: Present: atraumatic, normocephalic - Eye Eye exam: Present: PERRL, conjuntiva pink, sclera anicteric Pupils: Present: PERRL - Neck Neck exam general surgery: Present: supple, trachea midline. Absent: lymphadenopathy - Respiratory Respiratory exam: Present: CTAB, wheezes (Few wheezes bilaterally). Absent: accessory muscle use, rales, rhonchi - Cardiovascular Cardiovascular exam: Present: RRR, +S1, +S2. Absent: diastolic murmur, gallop, rubs, systolic murmur - GI/Abdominal GI/Abdominal exam: Present: normal bowel sounds, soft, no peritoneal signs. Absent: distended, tenderness - Extremities Exam Extremities exam: Present: warm, radial pulses palpable and symetrical. Absent : calf tenderness, cyanotic, pedal edema - Neurological Exam Neurological exam: Present: CN II-XII intact, oriented X3, no focal deficits. Absent: pronater drift, facial droop, speech deficit - Skin Skin exam: Present: dry, intact Internal Medicine: Result - Labs CBC & Chem 7: 09/02/16 05:36 09/02/16 05:36 Labs: Short CBC 09/02/16 Range/Units 05:36 WBC 8.3 (4.3-11.1) K/mcL Hgb 9.0 L (11.5-15.4) g/dL Hct 27.6 L (35.3-44.9) % Plt Count 266 (140-400) K/mcL Neutrophils # 7.6 (1.6-8.9) K/mcL BMP 09/02/16 05:36 Sodium 137 Potassium 3.5 Chloride 96 L Carbon Dioxide 31 H BUN 98 H Creatinine 1.68 H Glucose 49 L Calcium 9.1 - ABG Interpretation ABG results: PT/INR, D-dimer PT 10.3 Seconds (9.4-12.1) 08/25/16 16:51 - Impressions Impressions Chest X-Ray 09/02/16 07:36 IMPRESSION: Bilateral perihilar infiltrates, with some increased prominence of the left perihilar infiltrate . D/ / Lalo Diego MD / Lalo Diego MD Interpreting Provider: Lalo Diego MD Consult Discharge Plan - Plan Referrals: Kj Yost MD [Partnered Physician] - 09/13/16 1:00 pm Garcia,Therese Mccormick CNP [Primary Care Provider] - 09/08/16 9:00 am ()
[2016-09-02] MEDS: Furosemide 20 MG TABLET PO SCH (16:55)
[2016-09-03] MEDS: *HR* LORazepam 2 MG/ML VIAL IVP PRN ×2 (00:27→20:54)
[2016-09-03] MEDS: Acetylcysteine 10% 2 ML INHSOL IH SCH ×6 (04:17→23:18)
[2016-09-03] MEDS: Ipratropium/Albuterol Neb 3 ML IH SCH ×6 (04:17→23:18)
[2016-09-03] MEDS: *HR* OxyCODONE/APAP 5/325 TABLET PO PRN (04:56)
[2016-09-03 05:28] LABS: Basophils % 0.1 %; Hematocrit 27.5 % (35.3-44.9); Hemoglobin 9.3 g/dL (11.5-15.4); Immature Granulocytes % 1.1 % (0-4); Lymphocytes # 0.2 K/mcL (0.6-4.6); Lymphocytes % 2.4 %; Mean Corpuscular HGB Conc 33.8 g/dL (31.6-35.5); Mean Corpuscular Hemoglobin 28.3 pg (28.0-33.3); Mean Corpuscular Volume 83.6 fL (83.0-100.0); Mean Platelet Volume 10.2 fL (9.4-12.4); Monocytes # 0.4 K/mcL (0.0-1.3); Monocytes % 4.3 %; Platelet Count 254 K/mcL (140-400); Red Blood Count 3.29 M/mcL (3.82-4.97); Red Cell Distribution Width 15.1 % (11.5-14.5); Segmented Neutrophils % 92.1 %
[2016-09-03 05:43] LABS: Calcium 9.1 mg/dL (8.6-10.8); Potassium 3.6 mEq/L (3.5-4.5)
[2016-09-03] MEDS ORDERED: Vancomycin 1,000 MG in D5% in Water 250 ML IVPB ONE (08:00)
[2016-09-03] MEDS: Budesonide/Formoterol 80/4.5 MDI IH SCH ×2 (08:16→19:39)
[2016-09-03] MEDS: Insulin DETEMIR 100 UNIT/ML X5UNITS SQ SCH ×2 (08:17→20:54)
[2016-09-03] MEDS: Insulin LISPRO 300 UNITS/3 ML VIAL SQ SCH ×4 (08:17→20:55)
[2016-09-03] MEDS: cloNIDine HCl 0.1 MG TABLET PO SCH ×3 (08:18→20:54)
[2016-09-03] MEDS: Sucralfate 1 GM TABLET PO SCH ×4 (08:18→20:54)
[2016-09-03] MEDS: Furosemide 40 MG TABLET PO SCH (08:18)
[2016-09-03] MEDS: APIXABAN 5 MG TABLET PO SCH ×2 (08:18→20:54)
[2016-09-03] MEDS: predniSONE 20 MG TABLET PO SCH ×2 (08:18→17:23)
[2016-09-03] MEDS: amLODIPine 5 MG TABLET PO SCH (08:18)
[2016-09-03] MEDS: Ascorbic Acid 500 MG TABLET PO SCH (08:19)
[2016-09-03] MEDS: WATER IVPB SCH (08:19)
[2016-09-03] MEDS: D5 IVPB SCH (08:19)
[2016-09-03] MEDS: CEFEPIME HCL IVPB SCH (08:19)
--- NOTE | 2016-09-03 09:58 | Nephrology Progress Note ---
Date of Encounter: 09/03/16 Time of Encounter: 09:55 - Assessment and Plan (1) CKD (chronic kidney disease) stage 4, GFR 15-29 ml/min Current Visit: Yes Status: Chronic Scr and GFR back to baseline. Excellent UOP-2500ml yesterday Avoid nephrotoxins if possible (2) Acute exacerbation of chronic obstructive airways disease Current Visit: Yes Status: Acute per primary team (3) Anemia Current Visit: Yes Status: Chronic Hgb stable Qualifiers: Anemia type: iron deficiency Iron deficiency anemia type: unspecified iron deficiency Qualified Code(s): D50.9 - Iron deficiency anemia, unspecified Subjective Principal diagnosis: ELLE on CKD, COPD, PAF Interval history: Patient seen and examined. Daughter at bedside. Patient sitting up in chair; states she is feel better. Objective - Vital Signs Vital signs: Vital Signs Temp Pulse Resp BP Pulse Ox 09/03/16 08:21 18 94 09/03/16 07:35 98.8 F 77 16 148/74 91 09/03/16 04:17 16 94 09/02/16 23:30 97.8 F 86 18 166/88 100 09/02/16 23:12 17 99 09/02/16 20:24 18 94 09/02/16 20:10 98 F 69 16 121/64 95 09/02/16 16:07 16 98 09/02/16 15:50 97.6 F 69 18 139/75 98 09/02/16 13:00 97.5 F L 88 18 127/80 98 09/02/16 12:30 97.2 F L 88 18 138/70 98 09/02/16 12:10 97.3 F L 78 16 128/78 96 09/02/16 12:02 16 95 09/02/16 10:07 73 18 148/87 93 Intake and Output 09/02/16 09/03/16 09/03/16 23:59 07:59 15:59 Intake Total 100 / 100 120 / 120 Output Total 1750 / 1750 Balance -1650 / -1650 120 / 120 Intake: IV Fluids 100 / 100 Maxipime 1,000 MG In 100 / 100 Dextrose 5% (Minibag+) 100 ML 100 ML @ 200 mls/ hr IVPB Q12H [facility] Rx#: [id number] Oral 120 / 120 Output: Urine 1750 / 1750 Other: Meal Breakfast Percent of Meal Consumed 100% # Voids 2 Weight 90.3 kg Blood Glucose* 324 203 Patient Weight 09/03/16 23:59 Weight 90.3 kg - General Appearance General appearance: Present: obese EENT: Present: ATNC, mucous membranes moist, hearing intact, vision intact Neck: Present: supple Respiratory: Present: clear Cardiology: Present: edema (mild BUE edema), normal S1, normal S2 Gastrointestinal: Present: no tenderness, no guarding, obese Integumentary: Present: warm and dry Neurologic: Present: alert and oriented x3 Psychiatric: Present: mood/affect appropriate, cooperative - Lab 09/03/16 05:08 09/03/16 05:08 Most recent lab results Calcium 9.1 mg/dL (8.6-10.8) 09/03/16 05:08 Phosphorus 3.9 mg/dL (2.3-4.7) 09/01/16 06:33 Magnesium 1.7 mg/dL (1.6-2.6) 08/30/16 06:22 Urine Creatinine 40 mg/dL 08/25/16 13:19 Urine Sodium 30.0 mEq/L 08/25/16 13:19 Urine Total Protein 22 mg/dL (1-14) H 08/24/16 14:18 Consult Discharge Plan - Plan Referrals: Kj Yost MD [Partnered Physician] - 09/13/16 1:00 pm Garcia,Therese Mccormick CNP [Primary Care Provider] - 09/08/16 9:00 am ()
--- NOTE | 2016-09-03 11:31 | Internal Med Progress Note ---
Date of Encounter: 09/03/16 Time of Encounter: 09:00 - Assessment and plan (1) Acute exacerbation of chronic obstructive airways disease Current Visit: Yes Status: Acute Assessment and plan: Symptoms has improved after treatment. - Pulmonology consult recommendation reviewed. Will place BiPAP during night when pt is in hospital. Patient may need a long-term by mouth steroids upon discharge. (2) CKD (chronic kidney disease) stage 4, GFR 15-29 ml/min Current Visit: Yes Status: Chronic Assessment and plan: Serum creatinine at baseline. Monitor urine output closely and avoid nephrotoxic agents. Nephrology follow-up appreciated, to change Lasix to oral form. Dose adjusted by nephrology (3) History of CVA (cerebrovascular accident) Current Visit: Yes Status: Chronic Assessment and plan: Patient has had 2 recent ischemic strokes, uncertain etiology. Continue supportive care, she currently has no obvious hemiparesis. On Plavix and eliquis (4) DVT prophylaxis Current Visit: No Status: Acute Assessment and plan: Pt is on Eliquis. (5) Atrial fibrillation with RVR Current Visit: Yes Status: Acute Assessment and plan: Currently noted to be in sinus rhythm, rate controlled. Continue Coreg, clonidine. Started Eliquis for long-term anticoagulation per cardiology recommendation. (6) GI bleed Current Visit: No Status: Acute Assessment and plan: Guaiac tested positive. GI consultation appreciated. Had colonoscope, clip placed for angioectasia. Continue closely monitor H&H. Qualifiers: GI bleed type/associated pathology: unspecified gastrointestinal hemorrhage type Qualified Code(s): K92.2 - Gastrointestinal hemorrhage, unspecified (7) Anemia Current Visit: Yes Status: Chronic Assessment and plan: Hemoglobin noted to trend down slightly. GI will have colonoscopy done. Closely monitor H&H Qualifiers: Anemia type: iron deficiency Iron deficiency anemia type: unspecified iron deficiency Qualified Code(s): D50.9 - Iron deficiency anemia, unspecified (8) HCAP (healthcare-associated pneumonia) Current Visit: No Status: Resolved Assessment and plan: CXR shows minimal increase infiltrate, personally reviewed CXR, lung condition actually improved comparing 08/25. Will continue vanco and cefepime for one more day, may change to po abx upon discharge. Pt is at high risk because she is on vanco, need close monitoring. - Time Spent With Patient Greater than 35 minutes - Subjective Interval history: Patient is a 76-year-old female admitted as COPD exacerbation. Her past medical history is significant for CKD, history of CVA, and COPD. Patient developed A. fib during hospitalization. Patient was seen and examined. She is awake alert, less shortness of breath now , still cough with some sputum. No chest pain, no palpitation. vital signs stable, heart rate 75, sinus rhythm. Hypothermia resolved. Continue current treatment, plan to d/c home tomorrow if condition remains stable. - Constitutional Vitals: Temp Pulse Resp BP Pulse Ox 98.8 F 77 18 148/74 94 09/03/16 07:35 09/03/16 07:35 09/03/16 08:21 09/03/16 07:35 09/03/16 08:21 General appearance: Present: A&O X 3 (lethargic, tired), obese, answers questions appropriately - Head Head exam: Present: atraumatic, normocephalic - Eye Eye exam: Present: PERRL, conjuntiva pink, sclera anicteric Pupils: Present: PERRL - Neck Neck exam general surgery: Present: supple, trachea midline. Absent: lymphadenopathy - Respiratory Respiratory exam: Present: CTAB, wheezes (Trace wheezes on B/L lung base). Absent: accessory muscle use, rales, rhonchi - Cardiovascular Cardiovascular exam: Present: RRR, +S1, +S2. Absent: diastolic murmur, gallop, rubs, systolic murmur - GI/Abdominal GI/Abdominal exam: Present: normal bowel sounds, soft, no peritoneal signs. Absent: distended, tenderness - Extremities Exam Extremities exam: Present: warm, radial pulses palpable and symetrical. Absent : calf tenderness, cyanotic, pedal edema - Neurological Exam Neurological exam: Present: CN II-XII intact, oriented X3, no focal deficits. Absent: pronater drift, facial droop, speech deficit - Skin Skin exam: Present: dry, intact Internal Medicine: Result - Labs CBC & Chem 7: 09/03/16 05:08 09/03/16 05:08 Labs: Short CBC 09/03/16 Range/Units 05:08 WBC 8.7 (4.3-11.1) K/mcL Hgb 9.3 L (11.5-15.4) g/dL Hct 27.5 L (35.3-44.9) % Plt Count 254 (140-400) K/mcL Neutrophils # 8.0 (1.6-8.9) K/mcL BMP 09/03/16 05:08 Sodium 136 Potassium 3.6 Chloride 94 L Carbon Dioxide 32 H BUN 84 H Creatinine 1.73 H Glucose 213 H Calcium 9.1 - ABG Interpretation ABG results: PT/INR, D-dimer PT 10.3 Seconds (9.4-12.1) 08/25/16 16:51 Consult Discharge Plan - Plan Referrals: Kj Yost MD [Partnered Physician] - 09/13/16 1:00 pm Garcia,Therese Mccormick CNP [Primary Care Provider] - 09/08/16 9:00 am ()
[2016-09-03] MEDS: traMADol 50 MG TABLET PO PRN (15:44)
[2016-09-03] MEDS: Furosemide 20 MG TABLET PO SCH (17:23)
[2016-09-04] MEDS: Acetylcysteine 10% 2 ML INHSOL IH SCH ×6 (04:55→23:56)
[2016-09-04] MEDS: Ipratropium/Albuterol Neb 3 ML IH SCH ×6 (04:55→23:56)
[2016-09-04 06:01] LABS: Basophils % 0.1 %; Hematocrit 26.5 % (35.3-44.9); Immature Granulocytes % 0.9 % (0-4); Lymphocytes # 0.3 K/mcL (0.6-4.6); Lymphocytes % 3.2 %; Mean Corpuscular Hemoglobin 28.4 pg (28.0-33.3); Mean Corpuscular Volume 83.6 fL (83.0-100.0); Mean Platelet Volume 9.8 fL (9.4-12.4); Monocytes # 0.5 K/mcL (0.0-1.3); Monocytes % 4.5 %; Neutrophils # 9.1 K/mcL (1.6-8.9); Platelet Count 245 K/mcL (140-400); Red Blood Count 3.17 M/mcL (3.82-4.97); Red Cell Distribution Width 14.7 % (11.5-14.5); Segmented Neutrophils % 91.3 %
[2016-09-04 06:02] LABS: Potassium 3.3 mEq/L (3.5-4.5)
[2016-09-04] MEDS: Insulin LISPRO 300 UNITS/3 ML VIAL SQ SCH ×4 (07:28→20:30)
[2016-09-04] MEDS: D5 IVPB SCH (08:11)
[2016-09-04] MEDS: CEFEPIME HCL IVPB SCH (08:11)
[2016-09-04] MEDS: WATER IVPB SCH (08:11)
[2016-09-04] MEDS: Insulin DETEMIR 100 UNIT/ML X5UNITS SQ SCH ×2 (08:12→20:28)
[2016-09-04] MEDS: predniSONE 20 MG TABLET PO SCH (08:12)
[2016-09-04] MEDS: cloNIDine HCl 0.1 MG TABLET PO SCH ×3 (08:13→20:26)
[2016-09-04] MEDS: Sucralfate 1 GM TABLET PO SCH ×4 (08:13→20:26)
[2016-09-04] MEDS: APIXABAN 5 MG TABLET PO SCH ×2 (08:13→20:26)
[2016-09-04] MEDS: Furosemide 40 MG TABLET PO SCH (08:13)
[2016-09-04] MEDS: Ascorbic Acid 500 MG TABLET PO SCH (08:13)
[2016-09-04] MEDS: amLODIPine 5 MG TABLET PO SCH (08:13)
[2016-09-04] MEDS: Budesonide/Formoterol 80/4.5 MDI IH SCH ×2 (08:33→20:43)
--- NOTE | 2016-09-04 11:23 | Nephrology Progress Note ---
Date of Encounter: 09/04/16 Time of Encounter: 11:21 - Assessment and Plan (1) CKD (chronic kidney disease) stage 4, GFR 15-29 ml/min Current Visit: Yes Status: Chronic Patient seen and evaluated. Will continue with current plan. Creatinine fluctuating. May need to decrease diuretics. (2) Acute exacerbation of chronic obstructive airways disease Current Visit: Yes Status: Acute Per primary team. (3) Anemia Current Visit: Yes Status: Chronic Follow hemoglobin. Transfuse as needed. Qualifiers: Anemia type: iron deficiency Iron deficiency anemia type: unspecified iron deficiency Qualified Code(s): D50.9 - Iron deficiency anemia, unspecified Subjective Principal diagnosis: ELLE on CKD, COPD, PAF Interval history: Patient seen and evaluated. She has no new complaints. She reports her breathing is improving. ROS otherwise seems stable. Her family member is at the bedside. Objective - Vital Signs Vital signs: Vital Signs Temp Pulse Resp BP Pulse Ox 09/04/16 08:35 16 93 09/04/16 07:11 98.1 F 71 13 164/84 92 09/04/16 04:55 18 91 09/04/16 04:06 98 F 66 17 125/74 94 09/03/16 23:36 98.5 F 67 21 120/68 99 09/03/16 23:18 20 93 09/03/16 19:39 16 95 09/03/16 19:24 98 F 77 18 132/79 94 09/03/16 16:59 98.2 F 84 15 156/92 95 09/03/16 16:00 16 94 09/03/16 12:51 97.8 F 88 15 136/79 94 09/03/16 11:29 16 93 Intake and Output 09/03/16 09/04/16 09/04/16 23:59 07:59 15:59 Intake Total 300 / 300 120 / 120 Output Total 350 / 350 Balance -350 / -350 300 / 300 120 / 120 Intake: Oral 300 / 300 120 / 120 Output: Urine 350 / 350 Other: Meal Breakfast Percent of Meal Consumed 100% Stool Size Moderate Stool Consistency loose Stool Color Brown # Bowel Movements 1 Weight 89.9 kg Blood Glucose* 148 61 Patient Weight 09/04/16 23:59 Weight 89.9 kg - General Appearance General appearance: Present: well-developed, well-nourished EENT: Present: ATNC Neck: Present: supple Respiratory: Present: course breath sounds Cardiology: Present: edema (trace - 1+ edema left lower leg) Integumentary: Present: warm and dry Neurologic: Present: alert and oriented x3 Musculoskeletal: Present: no cyanosis Psychiatric: Present: mood/affect appropriate - Lab 09/04/16 05:39 09/04/16 05:39 Most recent lab results Calcium 9.0 mg/dL (8.6-10.8) 09/04/16 05:39 Phosphorus 3.9 mg/dL (2.3-4.7) 09/01/16 06:33 Magnesium 1.7 mg/dL (1.6-2.6) 08/30/16 06:22 Urine Creatinine 40 mg/dL 08/25/16 13:19 Urine Sodium 30.0 mEq/L 08/25/16 13:19 Urine Total Protein 22 mg/dL (1-14) H 08/24/16 14:18 Consult Discharge Plan - Plan Referrals: Kj Yost MD [Partnered Physician] - 09/13/16 1:00 pm Garcia,Therese Mccormick CNP [Primary Care Provider] - 09/08/16 9:00 am ()
--- NOTE | 2016-09-04 12:22 | Internal Med Progress Note ---
Date of Encounter: 09/04/16 Time of Encounter: 09:00 - Assessment and plan (1) Acute exacerbation of chronic obstructive airways disease Current Visit: Yes Status: Acute Assessment and plan: Symptoms has improved after treatment. - Pulmonology consult recommendation reviewed. Will place BiPAP during night when pt is in hospital. Patient may need a long-term by mouth steroids upon discharge. (2) CKD (chronic kidney disease) stage 4, GFR 15-29 ml/min Current Visit: Yes Status: Chronic Assessment and plan: Serum creatinine at baseline. Monitor urine output closely and avoid nephrotoxic agents. Nephrology follow-up appreciated, to change Lasix to oral form. Dose adjusted by nephrology (3) History of CVA (cerebrovascular accident) Current Visit: Yes Status: Chronic Assessment and plan: Patient has had 2 recent ischemic strokes, uncertain etiology. Continue supportive care, she currently has no obvious hemiparesis. On Plavix and eliquis (4) DVT prophylaxis Current Visit: No Status: Acute Assessment and plan: Pt is on Eliquis. (5) Atrial fibrillation with RVR Current Visit: Yes Status: Acute Assessment and plan: Currently noted to be in sinus rhythm, rate controlled. Continue Coreg, clonidine. Started Eliquis for long-term anticoagulation per cardiology recommendation. (6) GI bleed Current Visit: No Status: Acute Assessment and plan: Guaiac tested positive. GI consultation appreciated. Had colonoscope, clip placed for angioectasia. Continue closely monitor H&H. Qualifiers: GI bleed type/associated pathology: unspecified gastrointestinal hemorrhage type Qualified Code(s): K92.2 - Gastrointestinal hemorrhage, unspecified (7) Anemia Current Visit: Yes Status: Chronic Assessment and plan: Hemoglobin noted to trend down slightly. GI will have colonoscopy done. Closely monitor H&H Qualifiers: Anemia type: iron deficiency Iron deficiency anemia type: unspecified iron deficiency Qualified Code(s): D50.9 - Iron deficiency anemia, unspecified (8) HCAP (healthcare-associated pneumonia) Current Visit: No Status: Resolved Assessment and plan: CXR shows minimal increase infiltrate, personally reviewed CXR, lung condition actually improved comparing 08/25. Will continue vanco and cefepime for one more day, may change to po abx upon discharge. Pt is at high risk because she is on vanco, need close monitoring. - Time Spent With Patient Greater than 35 minutes - Subjective Interval history: Patient is a 76-year-old female admitted as COPD exacerbation. Her past medical history is significant for CKD, history of CVA, and COPD. Patient developed A. fib during hospitalization. Patient was seen and examined. She is awake alert, less shortness of breath, still cough with some sputum. No chest pain, no palpitation. vital signs stable , heart rate 75, sinus rhythm. Stable hemoglobin and creatinine level. Hypokalemia noticed, potassium supplement added. Continue current treatment, plan to d/c home tomorrow if condition remains stable. - Constitutional Vitals: Temp Pulse Resp BP Pulse Ox 98.0 F 88 16 143/82 94 09/04/16 11:43 09/04/16 11:43 09/04/16 11:43 09/04/16 11:43 09/04/16 11:43 General appearance: Present: A&O X 3 (lethargic, tired), obese, answers questions appropriately - Head Head exam: Present: atraumatic, normocephalic - Eye Eye exam: Present: PERRL, conjuntiva pink, sclera anicteric Pupils: Present: PERRL - Neck Neck exam general surgery: Present: supple, trachea midline. Absent: lymphadenopathy - Respiratory Respiratory exam: Present: CTAB. Absent: accessory muscle use, rales, rhonchi, wheezes - Cardiovascular Cardiovascular exam: Present: RRR, +S1, +S2. Absent: diastolic murmur, gallop, rubs, systolic murmur - GI/Abdominal GI/Abdominal exam: Present: normal bowel sounds, soft, no peritoneal signs. Absent: distended, tenderness - Extremities Exam Extremities exam: Present: warm, radial pulses palpable and symetrical. Absent : calf tenderness, cyanotic, pedal edema - Neurological Exam Neurological exam: Present: CN II-XII intact, oriented X3, no focal deficits. Absent: pronater drift, facial droop, speech deficit - Skin Skin exam: Present: dry, intact Internal Medicine: Result - Labs CBC & Chem 7: 09/04/16 05:39 09/04/16 05:39 Labs: Short CBC 09/04/16 Range/Units 05:39 WBC 10.0 (4.3-11.1) K/mcL Hgb 9.0 L (11.5-15.4) g/dL Hct 26.5 L (35.3-44.9) % Plt Count 245 (140-400) K/mcL Neutrophils # 9.1 H (1.6-8.9) K/mcL BMP 09/04/16 05:39 Sodium 138 Potassium 3.3 L Chloride 95 L Carbon Dioxide 31 H BUN 82 H Creatinine 1.94 H Glucose 78 Calcium 9.0 - ABG Interpretation ABG results: PT/INR, D-dimer PT 10.3 Seconds (9.4-12.1) 08/25/16 16:51 Consult Discharge Plan - Plan Referrals: Kj Yost MD [Partnered Physician] - 09/13/16 1:00 pm Garcia,Therese Mccormick CNP [Primary Care Provider] - 09/08/16 9:00 am ()
[2016-09-04] MEDS: traMADol 50 MG TABLET PO PRN (16:13)
[2016-09-04] MEDS: Furosemide 20 MG TABLET PO SCH (17:32)
[2016-09-04 20:27] LABS: Hemoglobin 8.5 g/dL (11.5-15.4)
[2016-09-04] MEDS: *HR* OxyCODONE/APAP 5/325 TABLET PO PRN (20:34)
[2016-09-04] MEDS: Saline Nasal Spray 44 ML BOTTLE NS PRN (20:34)
[2016-09-04] MEDS: Ondansetron 4 MG/2 ML VIAL IVP PRN (21:28)
[2016-09-04] MEDS: *HR* LORazepam 2 MG/ML VIAL IVP PRN (21:28)
[2016-09-05] MEDS: traMADol 50 MG TABLET PO PRN ×2 (00:40→10:25)
[2016-09-05 01:05] LABS: Hematocrit 21.8 % (35.3-44.9); Hemoglobin 7.1 g/dL (11.5-15.4); Immature Granulocytes % 1.3 % (0-4); Lymphocytes # 0.3 K/mcL (0.6-4.6); Lymphocytes % 3.2 %; Mean Corpuscular HGB Conc 32.6 g/dL (31.6-35.5); Mean Corpuscular Hemoglobin 28.1 pg (28.0-33.3); Mean Corpuscular Volume 86.2 fL (83.0-100.0); Mean Platelet Volume 10.4 fL (9.4-12.4); Monocytes # 0.5 K/mcL (0.0-1.3); Neutrophils # 9.3 K/mcL (1.6-8.9); Platelet Count 230 K/mcL (140-400); Red Blood Count 2.53 M/mcL (3.82-4.97); Red Cell Distribution Width 15.2 % (11.5-14.5); Segmented Neutrophils % 90.5 %
[2016-09-05 01:17] LABS: Calcium 8.2 mg/dL (8.6-10.8); Potassium 4.2 mEq/L (3.5-4.5)
[2016-09-05] MEDS: *HR* Morphine 2 MG/ML SYRINGE IVP PRN (02:05)
[2016-09-05] MEDS: Ipratropium/Albuterol Neb 3 ML IH SCH ×6 (03:45→23:36)
[2016-09-05] MEDS: Acetylcysteine 10% 2 ML INHSOL IH SCH ×6 (03:45→23:36)
[2016-09-05] MEDS: Budesonide/Formoterol 80/4.5 MDI IH SCH ×2 (07:39→19:59)
[2016-09-05] MEDS ORDERED: 0.9 % Sodium Chloride 250 ML ONE ×2 (08:08→11:34)
[2016-09-05] MEDS: Ondansetron 4 MG/2 ML VIAL IVP PRN ×2 (08:25→18:15)
[2016-09-05] MEDS: Insulin DETEMIR 100 UNIT/ML X5UNITS SQ SCH ×2 (08:34→21:54)
[2016-09-05] MEDS: Insulin LISPRO 300 UNITS/3 ML VIAL SQ SCH ×4 (08:34→21:51)
[2016-09-05] MEDS: Ascorbic Acid 500 MG TABLET PO SCH (10:24)
[2016-09-05] MEDS: Sucralfate 1 GM TABLET PO SCH ×4 (10:24→21:24)
[2016-09-05] MEDS: amLODIPine 5 MG TABLET PO SCH (10:24)
[2016-09-05] MEDS: Furosemide 40 MG TABLET PO SCH (10:24)
[2016-09-05] MEDS: cloNIDine HCl 0.1 MG TABLET PO SCH ×3 (10:25→21:25)
[2016-09-05] MEDS: predniSONE 20 MG TABLET PO SCH (10:25)
--- NOTE | 2016-09-05 11:24 | Nephrology Progress Note ---
Date of Encounter: 09/05/16 Time of Encounter: 11:21 - Assessment and Plan (1) CKD (chronic kidney disease) stage 4, GFR 15-29 ml/min Current Visit: Yes Status: Chronic Her creatinine is rising again, but is likely from the GI bleed and decrease in hemoglobin. Will hold lasix for now unless needed from a respiratory standpoint. (2) Acute exacerbation of chronic obstructive airways disease Current Visit: Yes Status: Acute Per primary team. Was improving, but lung sounds are worse today although patient states she feels her breathing is better. (3) Anemia Current Visit: Yes Status: Chronic Follow hemoglobin. Transfuse as needed. Patient with GI bleed overnight. Re-consult GI team. Management per primary team. Qualifiers: Anemia type: iron deficiency Iron deficiency anemia type: unspecified iron deficiency Qualified Code(s): D50.9 - Iron deficiency anemia, unspecified (4) GI bleed Current Visit: No Status: Acute per primary team and GI. Qualifiers: GI bleed type/associated pathology: unspecified gastrointestinal hemorrhage type Qualified Code(s): K92.2 - Gastrointestinal hemorrhage, unspecified (5) DVT prophylaxis Current Visit: Yes Status: Acute per primary team. Patient will need iker hose and scds as she will not be able to use heparin with the GI bleed. (6) HCAP (healthcare-associated pneumonia) Current Visit: Yes Status: Acute Per primary team. Subjective Principal diagnosis: ELLE on CKD, COPD, PAF Interval history: Patient seen and evaluated. She experienced bloody bowel movements x 2 overnight. She is getting blood and is receiving a breathing treatment. She has two family members at her bedside. She denies chest pain and denies dyspnea (but looks more dyspneic than yesterday). She complains of bilateral lower extremity discomfort that she states is similar to past episodes of flare from her arthritis. Objective - Vital Signs Vital signs: Vital Signs Temp Pulse Resp BP Pulse Ox 09/05/16 08:45 98.0 F 81 14 120/67 93 09/05/16 08:32 97.9 F 96 14 121/58 93 09/05/16 08:30 97.9 F 96 14 121/58 93 09/05/16 08:01 18 90 09/05/16 07:33 98.4 F 76 18 108/70 90 09/05/16 05:19 98.5 F 74 17 107/73 95 09/05/16 03:57 93 09/05/16 03:46 16 93 09/05/16 01:24 97.5 F L 73 19 113/74 97 09/04/16 23:56 20 94 09/04/16 20:45 24 92 09/04/16 20:19 98 F 85 17 123/74 91 09/04/16 16:24 16 91 09/04/16 16:12 98.0 F 79 14 146/84 94 09/04/16 11:43 98.0 F 88 16 143/82 94 09/04/16 11:29 18 90 Intake and Output 09/04/16 09/05/16 09/05/16 23:59 07:59 15:59 Intake Total 540 / 540 560 / 560 0 / 0 Output Total 700 / 700 0 / 0 Balance -160 / -160 560 / 560 0 / 0 Intake: Oral 540 / 540 560 / 560 Blood Product 0 / 0 Rbcs Leuko Poor As-1 0 / 0 Unit [id number] Output: Urine 700 / 700 0 / 0 Other: Meal Dinner Percent of Meal Consumed 100% Weight 91.4 kg Blood Glucose* 264 236 Patient Weight 09/05/16 23:59 Weight 91.4 kg - General Appearance General appearance: Present: well-developed, well-nourished EENT: Present: ATNC Neck: Present: supple Respiratory: Present: rales, course breath sounds, rhonchi Additional Comments: seems slightly worse as compared to yesterday. No wheezing appreciated. Cardiology: Present: no edema, regular rate, regular rhythm Integumentary: Present: warm and dry Neurologic: Present: alert and oriented x3 Musculoskeletal: Present: no cyanosis Psychiatric: Present: mood/affect appropriate - Lab 09/05/16 00:28 09/05/16 00:28 Most recent lab results Calcium 8.2 mg/dL (8.6-10.8) L 09/05/16 00:28 Phosphorus 3.9 mg/dL (2.3-4.7) 09/01/16 06:33 Magnesium 1.7 mg/dL (1.6-2.6) 08/30/16 06:22 Urine Creatinine 40 mg/dL 08/25/16 13:19 Urine Sodium 30.0 mEq/L 08/25/16 13:19 Urine Total Protein 22 mg/dL (1-14) H 08/24/16 14:18 Consult Discharge Plan - Plan Referrals: Kj Yost MD [Partnered Physician] - 09/13/16 1:00 pm Garcia,Therese Mccormick CNP [Primary Care Provider] - 09/08/16 9:00 am ()
[2016-09-05] MEDS ORDERED: Magnesium Sulfate 1 GM in D5% in Water 100 ML IVPB ONE (12:10)
--- NOTE | 2016-09-05 13:09 | General Surgery Progress Note ---
Date of Encounter: 09/05/16 Time of Encounter: 13:00 - Assessment and Plan (1) GI bleed Current Visit: No Status: Acute Acute on chronic gastrointestinal bleeding. She has had multiple workups and endoscopy by hematology, surgery, gastroenterology. At this time I do not think that urgent upper endoscopy will add anything to her treatment plan. I will be glad to discuss her case with Dr. Chaney and Dr. Escobedo on Monday08/27/2016. The patient has no complaints today her hemoglobin and hematocrit are stable. I see no indication for urgent or emergent endoscopic evaluation. I will continue to follow along with you. I would only recommend endoscopic evaluation for change in her clinical status or evidence of ongoing bleeding. 08/28/2016 No complaints, Hgb stable Will discuss with Dr. Chaney and Dr. Escobedo tomorrow to see if further work-up is indicated 09/05/2016. The patient has re-bled from angiodysplasia of the right colon. Gastroenterology has recommended right hemicolectomy. We will proceed with right hemicolectomy tomorrow. I discussed the risks and benefits with the patient. She is not without substantial risk for surgery considering her steroid-dependent COPD, atrial fibrillation requiring anticoagulation, and persistent anemia. We discussed all these and I still feel that right hemicolectomy is clearly indicated. Qualifiers: GI bleed type/associated pathology: unspecified gastrointestinal hemorrhage type Qualified Code(s): K92.2 - Gastrointestinal hemorrhage, unspecified Subjective Narrative: The patient has had rebleed from ascending colon angiodysplasia. Gastroenterology has recommended right hemicolectomy. I concur with right hemicolectomy. Patient's perioperative course will be complicated by COPD, recent steroid use, and atrial fibrillation requiring anticoagulation. I discussed the risks and benefits with the patient and her family. She wishes to proceed with right hemicolectomy. Objective Vital Signs - Last 8 Hours Temp Pulse Resp BP Pulse Ox 09/05/16 12:01 97.7 F 74 14 117/68 90 09/05/16 11:46 97.5 F L 86 16 150/92 92 09/05/16 11:10 98.4 F 71 16 148/74 96 09/05/16 08:45 98.0 F 81 14 120/67 93 09/05/16 08:32 97.9 F 96 14 121/58 93 09/05/16 08:30 97.9 F 96 14 121/58 93 09/05/16 08:01 18 90 09/05/16 07:33 98.4 F 76 18 108/70 90 09/05/16 05:19 98.5 F 74 17 107/73 95 Intake and Output 09/04/16 09/05/16 09/05/16 23:59 07:59 15:59 Intake Total 540 / 540 560 / 560 350 / 350 Output Total 700 / 700 0 / 0 Balance -160 / -160 560 / 560 350 / 350 Intake: Oral 540 / 540 560 / 560 Blood Product 350 / 350 Rbcs Leuko Poor As-1 0 / 0 Unit [id number] Rbcs Leuko Poor As-1 350 / 350 Unit [id number] Output: Urine 700 / 700 0 / 0 Other: Meal Dinner Percent of Meal Consumed 100% Weight 91.4 kg Blood Glucose* 264 236 Patient Weight 09/05/16 23:59 Weight 91.4 kg - General physical appearance chronically ill, obese - Respiratory normal expansion, normal respiratory effort, clear to percussion, clear to auscultation - Cardiovascular Cardiovascular exam: Present: RRR, no murmurs/rubs/gallops - Abdomen Abdomen: Present: bowel sounds present, soft, non tender - Neurologic normal coordination, normal sensation - Psychiatric oriented to time, oriented to person, oriented to place, speech is normal, memory intact - Labs 09/05/16 00:28 09/05/16 00:28 Diabetes panel 09/05/16 Range/Units 00:28 Sodium 132 L (136-145) mEq/L Potassium 4.2 (3.5-4.5) mEq/L Chloride 96 L (98-109) mEq/L Carbon Dioxide 29 (19-29) mEq/L BUN 91 H (7-20) mg/dL Creatinine 2.33 H (0.57-1.11) mg/dL Glucose 282 H (70-99) mg/dL Calcium 8.2 L (8.6-10.8) mg/dL Calcium panel 09/05/16 Range/Units 00:28 Calcium 8.2 L (8.6-10.8) mg/dL Pituitary panel 09/05/16 Range/Units 00:28 Sodium 132 L (136-145) mEq/L Potassium 4.2 (3.5-4.5) mEq/L Chloride 96 L (98-109) mEq/L Carbon Dioxide 29 (19-29) mEq/L BUN 91 H (7-20) mg/dL Creatinine 2.33 H (0.57-1.11) mg/dL Glucose 282 H (70-99) mg/dL Calcium 8.2 L (8.6-10.8) mg/dL Adrenal panel 09/05/16 Range/Units 00:28 Sodium 132 L (136-145) mEq/L Potassium 4.2 (3.5-4.5) mEq/L Chloride 96 L (98-109) mEq/L Carbon Dioxide 29 (19-29) mEq/L BUN 91 H (7-20) mg/dL Creatinine 2.33 H (0.57-1.11) mg/dL Glucose 282 H (70-99) mg/dL Calcium 8.2 L (8.6-10.8) mg/dL Consult Discharge Plan - Plan Referrals: Kj Yost MD [Partnered Physician] - 09/13/16 1:00 pm Therese Garcia CNP [Primary Care Provider] - 09/08/16 9:00 am ()
--- NOTE | 2016-09-05 13:18 | Internal Med Progress Note ---
Date of Encounter: 09/05/16 Time of Encounter: 09:00 - Assessment and plan (1) GI bleed Current Visit: No Status: Acute Assessment and plan: Had rebleed with large amount rectal bleeding. AC on hold. Surgical consult for hemicolectomy. Patient is at high risk because she needs a surgical intervention. Will transfer patient to [facility] for close monitoring Qualifiers: GI bleed type/associated pathology: unspecified gastrointestinal hemorrhage type Qualified Code(s): K92.2 - Gastrointestinal hemorrhage, unspecified (2) Acute exacerbation of chronic obstructive airways disease Current Visit: Yes Status: Acute Assessment and plan: Symptoms has improved after treatment. - Pulmonology consult recommendation reviewed. Will place BiPAP during night when pt is in hospital. Patient may need a long-term by mouth steroids upon discharge. (3) CKD (chronic kidney disease) stage 4, GFR 15-29 ml/min Current Visit: Yes Status: Chronic Assessment and plan: Serum creatinine at baseline. Monitor urine output closely and avoid nephrotoxic agents. Nephrology follow-up appreciated, to change Lasix to oral form. Dose adjusted by nephrology (4) History of CVA (cerebrovascular accident) Current Visit: Yes Status: Chronic Assessment and plan: Patient has had 2 recent ischemic strokes, uncertain etiology. Continue supportive care, she currently has no obvious hemiparesis. Plavix and eliquis on hold due to GI bleeding. (5) DVT prophylaxis Current Visit: No Status: Acute Assessment and plan: No anticoagulation due to GI bleeding. EPCD (6) Atrial fibrillation with RVR Current Visit: Yes Status: Acute Assessment and plan: Currently noted to be in sinus rhythm, rate controlled. Continue Coreg, clonidine. Hold Eliquis b/o GI bleeding. (7) Anemia Current Visit: Yes Status: Chronic Assessment and plan: Pt has rectal bleeding. two units of PRBC transfused. Closely monitor vitals and H&H Qualifiers: Anemia type: iron deficiency Iron deficiency anemia type: unspecified iron deficiency Qualified Code(s): D50.9 - Iron deficiency anemia, unspecified (8) HCAP (healthcare-associated pneumonia) Current Visit: No Status: Resolved Assessment and plan: CXR shows minimal increase infiltrate, personally reviewed CXR, lung condition actually improved comparing 08/25. Will continue cefepime when pt is still in hospital. - Time Spent With Patient Greater than 35 minutes - Subjective Interval history: Patient is a 76-year-old female admitted as COPD exacerbation. Her past medical history is significant for CKD, history of CVA, and COPD. Patient developed A. fib during hospitalization. Patient was seen and examined. She develop GI bleeding again with 3 episodes of rectal bleeding since last evening. BP is still stable. Hgb get down to 7.1. I discussed with GI Dr Escobedo on phone, suggest surgical intervention for hemicolectomy. Surgeon Dr Moy was called and saw pt. Plan for Right hemicolectomy tomorrow. Will give two units of PRBC transfusion today. Closely monitor vitals, and H/H and further transfuse according to H/H level. Plavix and Eliquis is on hold. - Constitutional Vitals: Temp Pulse Resp BP Pulse Ox 97.7 F 74 14 117/68 90 09/05/16 12:01 09/05/16 12:01 09/05/16 12:01 09/05/16 12:01 09/05/16 12:01 General appearance: Present: A&O X 3 (lethargic, tired), obese, answers questions appropriately - Head Head exam: Present: atraumatic, normocephalic - Eye Eye exam: Present: PERRL, conjuntiva pink, sclera anicteric Pupils: Present: PERRL - Neck Neck exam general surgery: Present: supple, trachea midline. Absent: lymphadenopathy - Respiratory Respiratory exam: Present: CTAB, wheezes (trace wheezes b/l). Absent: accessory muscle use, rales, rhonchi - Cardiovascular Cardiovascular exam: Present: RRR, +S1, +S2. Absent: diastolic murmur, gallop, rubs, systolic murmur - GI/Abdominal GI/Abdominal exam: Present: normal bowel sounds, soft, no peritoneal signs. Absent: distended, tenderness - Extremities Exam Extremities exam: Present: warm, radial pulses palpable and symetrical. Absent : calf tenderness, cyanotic, pedal edema - Neurological Exam Neurological exam: Present: CN II-XII intact, oriented X3, no focal deficits. Absent: pronater drift, facial droop, speech deficit - Skin Skin exam: Present: dry, intact Internal Medicine: Result - Labs CBC & Chem 7: 09/05/16 00:28 09/05/16 00:28 Labs: Short CBC 09/04/16 09/05/16 Range/Units 20:18 00:28 WBC 10.3 (4.3-11.1) K/mcL Hgb 8.5 L 7.1 L (11.5-15.4) g/dL Hct 26.0 L 21.8 L (35.3-44.9) % Plt Count 230 (140-400) K/mcL Neutrophils # 9.3 H (1.6-8.9) K/mcL BMP 09/05/16 00:28 Sodium 132 L Potassium 4.2 Chloride 96 L Carbon Dioxide 29 BUN 91 H Creatinine 2.33 H Glucose 282 H Calcium 8.2 L - ABG Interpretation ABG results: PT/INR, D-dimer PT 10.3 Seconds (9.4-12.1) 08/25/16 16:51 Consult Discharge Plan - Plan Referrals: Kj Yost MD [Partnered Physician] - 09/13/16 1:00 pm Garcia,Therese Mccormick CNP [Primary Care Provider] - 09/08/16 9:00 am ()
[2016-09-05] MEDS ORDERED: Aminoglycoside Consult 1 EACH MC ONE (13:45)
[2016-09-05] MEDS ORDERED: Simethicone 40 MG/0.6 ML MLS IR ONE (14:31)
[2016-09-05] MEDS ORDERED: *HR* FentaNYL (PF) 100 MCG/2 ML VIAL IVP PRN (14:31)
[2016-09-05] MEDS ORDERED: *HR* Midazolam HCl 5 MG/5 ML VIAL IVP PRN (14:31)
[2016-09-05] MEDS ORDERED: Cefepime HCl 1,000 MG in D5% in Water (Mini-Bag+) 100 ML IVPB SCH (14:54)
[2016-09-05 16:17] LABS: Hematocrit 29.1 % (35.3-44.9)
[2016-09-05 16:19] LABS: Hemoglobin 9.6 g/dL (11.5-15.4)
--- NOTE | 2016-09-05 19:02 | Anesthesia Evaluation PreOp ---
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 Mastectomy,) : No Alcohol Use: none Drug use: none Medications and Allergies Cetirizine HCl [Zyrtec] 10 mg PO HS 04/17/15 [History] Cholecalciferol (Vitamin D3) [Vitamin D3] 2,000 unit PO DAILY 04/17/15 [History] Glimepiride 4 mg PO QAM 04/17/15 [History] Promethazine [Phenergan] 12.5 - 25 mg PO Q6-8H PRN 04/17/15 [History] Albuterol Sulfate [Albuterol Inhaler] 2 puff IH Q6H PRN 10/12/15 [History] Furosemide [Lasix] 20 mg PO DAILY 10/12/15 [History] Omeprazole [PriLOSEC] 20 mg PO DAILY 10/12/15 [History] Amlodipine [Norvasc] 10 mg PO DAILY 01/26/16 [History] Ascorbate Calcium [Vitamin C] 500 mg PO DAILY 06/14/16 [History] Atorvastatin [Lipitor] 10 mg PO HS 06/14/16 [History] Calcitriol [Rocaltrol] 0.25 mcg PO DAILY 06/14/16 [History] Docusate [Colace] 100 mg PO DAILY PRN 06/14/16 [History] Guaifenesin [Mucinex] 600 mg PO Q12H PRN 06/14/16 [History] Linagliptin [Tradjenta] 5 mg PO DAILY 06/14/16 [History] Alendronate Sodium [Fosamax] 70 mg PO QWEEK 06/22/16 [History] Budesonide/Formoterol 80/4.5 [Symbicort 80/4.5] 2 puff IH Q12H 06/22/16 [ History] Calcium Carbonate [Calcium] 600 mg PO BID 06/22/16 [History] Albuterol Neb [Proventil Neb] 2.5 mg IH Q4H PRN 07/27/16 [History] Carvedilol 3.125 mg PO BID 07/27/16 [History] CloNIDine HCl 0.1 mg PO Q8H 07/27/16 [History] Famotidine [Pepcid] 20 mg PO BID 07/27/16 [History] Sucralfate [Carafate] 1 gm PO ACHS 07/27/16 [History] HYDROcodone/Acet 7.5/325 mg [[place] 7.5-325 mg] 1 tab PO Q6H PRN 08/02/16 [ History] Insulin ASPART [NovoLOG] 6 - 18 unit SQ ACHS 08/02/16 [History] Insulin Glargine,Hum.rec.anlog [Lantus Solostar] 10 unit SQ QAM 08/02/16 [ History] Acetaminophen w/Cod 300-30 mg [Tylenol w/Codeine #3] 1 each PO Q4H PRN 08/15/16 [History] Clopidogrel [Plavix] 75 mg PO DAILY 08/15/16 [History] PredniSONE 10 mg PO TAPER 08/15/16 [History] Donepezil HCl [Aricept] 5 mg PO HS 08/22/16 [History] Insulin Glargine,Hum.rec.anlog [Lantus Solostar] 8 unit SQ QPM 08/22/16 [History ] Ipratropium/Albuterol Neb [Duoneb] 3 ml IH Q4HR 08/22/16 [History] Ipratropium/Albuterol Neb [Duoneb] 3 ml IH QID PRN 08/22/16 [History] Iron Polysaccharide Complex [Pro Fe] 180 mg PO DAILY 08/22/16 [History] Letrozole [Femara] 2.5 mg PO DAILY 08/22/16 [History] Oxycodone HCl/Acetaminophen [Percocet 5-325 mg Tablet] 1 each PO Q4H PRN [History] Allergies aspirin [ASA] Allergy (Verified 08/18/16 15:30) Swelling of Lip/Tongue/Throat NSAIDS (Non-Steroidal Anti-Inflamma Allergy (Verified 08/18/16 15:30) Swelling of Lip/Tongue/Throat Penicillins Allergy (Verified 08/18/16 15:30) Hives iron Adverse Reaction (Verified 08/18/16 15:30) Unknown Push only - Meds/Allergy Pre-op Review Medications Reviewed: Yes Allergies Reviewed: Yes Beta Blockers on Current Med List: Yes If Beta Blockers taken, Date/Time (Last Dose taken): Not Given 09/05 - low heart rate Anesthesia Results - Labs 09/05/16 20:03 09/05/16 00:28 Echo 06/23/16 EF-60-65% Mild LV diastolic Dysfunction No valvular stenosis - Imaging EKG: image reviewed (SB with supraventricular premature complexes) Anesthesia Exam O2 Sat Weight 91.4 kg O2 Sat by Pulse Oximetry 92 O2 Sat by Pulse Oximetry 92 O2 Sat by Pulse Oximetry 90 O2 Sat by Pulse Oximetry 92 O2 Sat by Pulse Oximetry 92 O2 Sat by Pulse Oximetry 96 O2 Sat by Pulse Oximetry 96 O2 Sat by Pulse Oximetry 87 O2 Sat by Pulse Oximetry 93 O2 Sat by Pulse Oximetry 93 O2 Sat by Pulse Oximetry 93 O2 Sat by Pulse Oximetry 93 O2 Sat by Pulse Oximetry 90 O2 Sat by Pulse Oximetry 90 O2 Sat by Pulse Oximetry 95 O2 Sat by Pulse Oximetry 93 O2 Sat by Pulse Oximetry 93 O2 Sat by Pulse Oximetry 97 O2 Sat by Pulse Oximetry 94 O2 Sat by Pulse Oximetry 92 O2 Sat by Pulse Oximetry 91 Vital Signs Temp Pulse Resp BP Pulse Ox 98.6 F 85 18 143/69 93 08/22/16 13:15 08/22/16 13:15 08/22/16 13:15 08/22/16 13:15 08/22/16 13:15 Vital Signs/O2 Sat, Most Current Temp Pulse Resp BP Pulse Ox 97.7 F 54 18 100/55 92 09/05/16 14:41 09/05/16 18:51 09/05/16 18:51 09/05/16 18:51 09/05/16 18:51 Height: 5'5'' Weight: 195# NPO (# of Hours): > 8 hrs Pain Scale: 0 - HEENT Pupil (Motor): Pupils equal, EOMI Mallampati: III Teeth: Normal Denture Type: Upper: Complete Oral Opening: Greater than 3 - FIELD ATTENDANT LOC: Oriented FIELD ATTENDANT Motor: Normal RUE, Normal LUE, Normal RLE, Normal LLE, Normal Face FIELD ATTENDANT Sensory: Normal: RUE, LUE, RLE, LLE, Face - Cardiac Rhythm: Regular Murmur: None JVD: No Carotid Bruit: No - Pulmonary Breath Sounds: bilateral Rhonchi Respiratory Effort: Symmetrical Anesthesia Assess/Plan ASA Score: 3 Modified [place] Scale for Level of Consciousness: Cooperative, oriented, and tranquil Anesthetic Plan: General Autologous Blood: Yes Monitoring Plan: Standard Monitors Recovery Plan: PACU
[2016-09-05 20:18] LABS: Hematocrit 26.2 % (35.3-44.9); Hemoglobin 8.7 g/dL (11.5-15.4)
[2016-09-05] MEDS: *HR* OxyCODONE/APAP 5/325 TABLET PO PRN (23:08)
[2016-09-05] MEDS: *HR* LORazepam 2 MG/ML VIAL IVP PRN (23:36)
[2016-09-06] MEDS: Ipratropium/Albuterol Neb 3 ML IH SCH ×6 (04:22→22:53)
[2016-09-06] MEDS: Acetylcysteine 10% 2 ML INHSOL IH SCH ×3 (04:22→11:31)
[2016-09-06 05:14] LABS: Eosinophils % 0.1 %; Hemoglobin 8.5 g/dL (11.5-15.4); Immature Granulocytes % 1.1 % (0-4); Lymphocytes # 0.6 K/mcL (0.6-4.6); Lymphocytes % 6.3 %; Mean Corpuscular Volume 85.3 fL (83.0-100.0); Mean Platelet Volume 10.8 fL (9.4-12.4); Monocytes # 0.5 K/mcL (0.0-1.3); Monocytes % 4.6 %; Neutrophils # 8.8 K/mcL (1.6-8.9); Platelet Count 184 K/mcL (140-400); Red Blood Count 2.93 M/mcL (3.82-4.97); Red Cell Distribution Width 14.6 % (11.5-14.5); Segmented Neutrophils % 87.9 %
[2016-09-06 05:35] LABS: Calcium 8.5 mg/dL (8.6-10.8); Magnesium 2.5 mg/dL (1.6-2.6); Potassium 5.1 mEq/L (3.5-4.5)
[2016-09-06] MEDS: *HR* OxyCODONE/APAP 5/325 TABLET PO PRN (06:53)
[2016-09-06] MEDS: Budesonide/Formoterol 80/4.5 MDI IH SCH (07:43)
[2016-09-06] MEDS: Sucralfate 1 GM TABLET PO SCH ×3 (07:45→17:42)
[2016-09-06] MEDS: Ascorbic Acid 500 MG TABLET PO SCH (07:45)
[2016-09-06] MEDS: predniSONE 20 MG TABLET PO SCH (07:49)
[2016-09-06] MEDS: Insulin LISPRO 300 UNITS/3 ML VIAL SQ SCH ×4 (07:52→20:55)
[2016-09-06] MEDS: Insulin DETEMIR 100 UNIT/ML X5UNITS SQ SCH ×2 (08:31→20:55)
[2016-09-06] MEDS: cloNIDine HCl 0.1 MG TABLET PO SCH ×2 (08:31→16:33)
[2016-09-06] MEDS: amLODIPine 5 MG TABLET PO SCH (08:31)
--- NOTE | 2016-09-06 10:26 | Nephrology Progress Note ---
Date of Encounter: 09/06/16 Time of Encounter: 10:23 - Assessment and Plan (1) CKD (chronic kidney disease) stage 4, GFR 15-29 ml/min Current Visit: Yes Status: Chronic Scr and GFR worse today but still within range of her baseline. UOP 400ml yesterday; daughter states she has had 350ml out already today Going for a hemicolectomy today for GI bleed. Will talk with Dr Pastrana re: continuing to hold Lasix another day in light of kidney function worsening; no complaint of dyspnea or increased edema. Avoid nephrotoxins if possible (2) Acute exacerbation of chronic obstructive airways disease Current Visit: Yes Status: Acute per primary team (3) Anemia Current Visit: Yes Status: Chronic Hgb 8.5 Received PRBCs yesterday No shortness of breath Qualifiers: Anemia type: iron deficiency Iron deficiency anemia type: unspecified iron deficiency Qualified Code(s): D50.9 - Iron deficiency anemia, unspecified Subjective Principal diagnosis: ELLE on CKD, COPD, PAF Interval history: Patient seen and examined. Daughters at bedside. Patient lying in bed, voices no complaints today. Objective - Vital Signs Vital signs: Vital Signs Temp Pulse Resp BP Pulse Ox 09/06/16 07:55 97.4 F L 52 14 121/65 99 09/06/16 07:46 16 94 09/06/16 07:03 97.4 F L 54 17 112/63 91 09/06/16 04:23 14 96 09/06/16 04:21 97.5 F L 59 16 122/71 92 09/05/16 23:35 12 119/64 95 09/05/16 23:04 97.4 F L 62 18 119/64 95 09/05/16 19:59 16 93 09/05/16 19:43 98.5 F 50 18 93/51 94 09/05/16 18:51 54 18 100/55 92 09/05/16 17:41 18 92 09/05/16 14:41 97.7 F 58 20 116/75 09/05/16 12:01 97.7 F 74 14 117/68 90 09/05/16 11:46 97.5 F L 86 16 150/92 92 09/05/16 11:10 98.4 F 71 16 148/74 96 09/05/16 11:02 18 87 Intake and Output 09/05/16 09/06/16 09/06/16 23:59 07:59 15:59 Intake Total 580 / 580 Output Total 450 / 450 350 / 350 Balance 130 / 130 -350 / -350 Intake: IV Fluids 100 / 100 Maxipime 1,000 MG In 100 / 100 Dextrose 5% (Minibag+) 100 ML 100 ML @ 200 mls/ hr IVPB Q24H [facility] Rx#: [id number] Oral 480 / 480 Output: Urine 350 / 350 Urine/Stool Mix 450 / 450 Other: Stool Size Moderate Stool Consistency loose Stool Color Dark Red Blood # Bowel Movements 1 Weight 88 kg Blood Glucose* 171 100 Patient Weight 09/06/16 23:59 Weight 88 kg - General Appearance General appearance: Present: well-developed, well-nourished, obese EENT: Present: ATNC, mucous membranes moist, hearing intact, vision intact Neck: Present: supple Respiratory: Present: clear Cardiology: Present: no edema, normal S1, normal S2 Gastrointestinal: Present: no tenderness, no guarding Neurologic: Present: alert and oriented x3 Psychiatric: Present: mood/affect appropriate, cooperative - Lab 09/06/16 04:54 09/06/16 04:54 Most recent lab results Calcium 8.5 mg/dL (8.6-10.8) L 09/06/16 04:54 Phosphorus 3.9 mg/dL (2.3-4.7) 09/01/16 06:33 Magnesium 2.5 mg/dL (1.6-2.6) 09/06/16 04:54 Urine Creatinine 40 mg/dL 08/25/16 13:19 Urine Sodium 30.0 mEq/L 08/25/16 13:19 Urine Total Protein 22 mg/dL (1-14) H 08/24/16 14:18 - VTE Documentation of Mechanical Device: Graduated compression elastic hosiery Consult Discharge Plan - Plan Referrals: Kj Yost MD [Partnered Physician] - 09/13/16 1:00 pm Therese Garcia CNP [Primary Care Provider] - ()
[2016-09-06] MEDS: *HR* Dextrose 50 % in Water (Syg) 50 ML SYRINGE IVP PRN (11:18)
--- NOTE | 2016-09-06 12:14 | Internal Med Progress Note ---
Date of Encounter: 09/06/16 Time of Encounter: 12:12 - Assessment and plan (1) GIB (gastrointestinal bleeding) Current Visit: Yes Status: Acute Assessment and plan: Secondary to colonic angiodysplasia in the setting of anticoagulation GI/Surgery eval appreciated HB today 8.5 s/p 2 RBCs For hemicolectomy today Continue to monitor Hb Qualifiers: GI bleed type/associated pathology: unspecified gastrointestinal hemorrhage type Qualified Code(s): K92.2 - Gastrointestinal hemorrhage, unspecified (2) Acute exacerbation of chronic obstructive airways disease Current Visit: Yes Status: Acute Assessment and plan: Patient with chronic respiratory failure and possible retainer Needs BiPAP at night Continue prednisone, taper from a.m Continue duonebs and O2 supplement (3) CKD (chronic kidney disease) stage 4, GFR 15-29 ml/min Current Visit: Yes Status: Chronic Assessment and plan: Serum creatinine at baseline. Monitor urine output closely and avoid nephrotoxic agents Nephrology is on board, continue to monitor chem (4) Hypertension Current Visit: Yes Status: Chronic Assessment and plan: Controlled,continue Coreg, clonidine and by mouth Lasix. Cannot start JOHNATHAN inhibitor due to fluctuating renal function. Qualifiers: Hypertension type: essential hypertension Qualified Code(s): I10 - Essential (primary) hypertension (5) HCAP (healthcare-associated pneumonia) Current Visit: Yes Status: Resolved Assessment and plan: CXR shows minimal increase infiltrate, Will continue cefepime when pt is still in hospital.-Day 3 (6) Atrial fibrillation with RVR Current Visit: Yes Status: Acute Assessment and plan: Continue Coreg, clonidine. Hold Eliquis b/o GI bleeding. (7) Acute and chronic respiratory failure ([id number]) Current Visit: Yes Status: Acute Assessment and plan: Secondary to COPDE/CHFE/Afib Continue O2 supplement BiPAP at night Qualifiers: Respiratory failure complication: hypoxia Qualified Code(s): J96.21 - Acute and chronic respiratory failure with hypoxia (8) CHF (congestive heart failure) Current Visit: Yes Status: Chronic Assessment and plan: Improving. Continue Lasix, beta jean-pierre and supportive care. Qualifiers: Congestive heart failure type: diastolic Congestive heart failure chronicity: chronic Qualified Code(s): I50.32 - Chronic diastolic (congestive ) heart failure - Subjective Interval history: 76 Y/O F Seen and evaluated at bedside with [facility] Patient with admission for COPDE, Afib with RVR, HCAP Hospital [facility] complicated by LGIB s/p colonoscopy with angiodysplasia which was cauterized, recurrent bleed awaiting right hemicolectomy today Complains of bilateral aches in both legs, non-specific - Constitutional Vitals: Temp Pulse Resp BP Pulse Ox 97.4 F L 59 16 121/65 95 09/06/16 07:55 09/06/16 11:20 09/06/16 11:32 09/06/16 07:55 09/06/16 11:32 General appearance: Present: A&O X 3, pleasant, obese, answers questions appropriately - Head Head exam: Present: atraumatic, normocephalic - Eye Eye exam: Present: PERRL, conjuntiva pink, sclera anicteric Pupils: Present: PERRL - Neck Neck exam general surgery: Present: supple, trachea midline. Absent: lymphadenopathy - Respiratory Respiratory exam: Present: CTAB. Absent: accessory muscle use, rales, rhonchi, wheezes - Cardiovascular Cardiovascular exam: Present: RRR, +S1, +S2. Absent: diastolic murmur, gallop, rubs, systolic murmur - GI/Abdominal GI/Abdominal exam: Present: normal bowel sounds, soft, no peritoneal signs. Absent: distended, tenderness - Extremities Exam Extremities exam: Present: warm, radial pulses palpable and symetrical. Absent : calf tenderness, cyanotic, pedal edema - Neurological Exam Neurological exam: Present: alert, CN II-XII intact, oriented X3, no focal deficits. Absent: pronater drift, facial droop, speech deficit - Skin Skin exam: Present: dry Internal Medicine: Result - Labs CBC & Chem 7: 09/06/16 04:54 09/06/16 04:54 Labs: Short CBC 09/05/16 09/05/16 09/06/16 Range/Units 16:06 20:03 04:54 WBC 10.0 (4.3-11.1) K/mcL Hgb 9.6 L D 8.7 L 8.5 L (11.5-15.4) g/dL Hct 29.1 L 26.2 L 25.0 L (35.3-44.9) % Plt Count 184 (140-400) K/mcL Neutrophils # 8.8 (1.6-8.9) K/mcL BMP 09/06/16 04:54 Sodium 134 L Potassium 5.1 H Chloride 94 L Carbon Dioxide 30 H BUN 111 H Creatinine 2.66 H Glucose 92 Calcium 8.5 L - ABG Interpretation ABG results: PT/INR, D-dimer PT 10.3 Seconds (9.4-12.1) 08/25/16 16:51 - VTE Documentation of Mechanical Device: Graduated compression elastic hosiery Consult Discharge Plan - Plan Referrals: Kj Yost MD [Partnered Physician] - 09/13/16 1:00 pm Garcia,Therese Mccormick CNP [Primary Care Provider] - () Prudence Escobedo MD [Partnered Physician] -
[2016-09-06] MEDS ORDERED: Atracurium 50 MG/5 ML VIAL ONE (15:45)
[2016-09-06] MEDS ORDERED: *HR* FentaNYL (PF) 100 MCG/2 ML VIAL ONE (15:48)
[2016-09-06] MEDS ORDERED: Lidocaine -MPF 2% 2 ML VIAL ONE (16:35)
[2016-09-06] MEDS ORDERED: *HR* Propofol 200 MG/20 ML VIAL IVP ONE (16:35)
[2016-09-06] MEDS ORDERED: EPHEDrine 50 MG/ML VIAL ONE (16:35)
[2016-09-06] MEDS ORDERED: CefOXitin 2,000 MG VIAL IVPB ONE (16:35)
[2016-09-06] MEDS ORDERED: cefOXitin 2,000 MG in D5% in Water (Mini-Bag+) 100 ML IVPB ONE (16:37)
[2016-09-06] MEDS ORDERED: *HR* Labetalol 100 MG/20 ML MDV IVP PRN (16:41)
[2016-09-06] MEDS ORDERED: *HR* Promethazine 25 MG/ML VIAL IVP PRN (16:41)
[2016-09-06] MEDS ORDERED: 0.9 % Sodium Chloride 500 ML IVC SCH (16:45)
[2016-09-06] MEDS ORDERED: Ondansetron 4 MG/2 ML VIAL ONE (16:59)
[2016-09-06] MEDS ORDERED: Dexamethasone 4 MG/ML VIAL ONE (16:59)
[2016-09-06] MEDS ORDERED: Neostigmine Methylsulfate 3 MG/3 ML SYRINGE ONE (17:52)
[2016-09-06] MEDS ORDERED: *HR* HYDROmorphone 2 MG/ML SYRINGE ONE (18:11)
--- NOTE | 2016-09-06 18:27 | Operative Note ---
Date of procedure: 09/06/16 Pre-op diagnosis: Bleeding from the right colon Post-op diagnosis: other (Bleeding from the transverse colon) Procedure: Extended right hemicolectomy. Lysis of adhesions times 1 hour Anesthesia: LENIN Surgeon: Sukumar Moy Estimated blood loss (cc): 100 Specimen: Extended right hemicolectomy in 2 segments Condition: stable Disposition: PACU Procedure in Detail: After informed consent the patient was taken to major operative suite and placed supine position and given adequate general anesthetic. The abdomen was prepped and draped in sterile fashion utilizing ChloraPrep standard draping techniques. Timeout was taken patient was identified. I opened the midline and immediately encountered extensive adhesions. Over the next one hour I lysed adhesions in the right upper quadrant and right abdomen in the pelvis. At the end of one hour there were no enterotomies and the small bowel was completely mobilized as well as the right colon. I divided the ileum about 4 cm proximal to the ileocecal valve. I divided the colon on the right side of the middle colic artery both with ALLISON. I then divided the mesentery of the right colon with clamps and hemostatic ligatures. This gave an excellent technical result I then opened the colon and the small bowel and performed an anastomosis with ALLISON. I opened the enterotomy to inspect the staple line and was shocked to find the resolution vascular clip from the endoscopic procedure in the mid transverse colon instead of the right colon. Obviously the bleeding site was still in the patient and not in the specimen. I used a TA instrument and close the enterotomy and I dissected back and removed an additional 10 cm of transverse mesocolon. The colon was then divided on the left side of the middle colic artery and I divided the middle colic artery along the mesenteric border in such a way as to preserve the marginal artery of [place]. The ileum was then divided 6 cm proximal to his previous division and the mesentery of the ileum and the mesentery of the central transverse colon was divided with clamps and hemostatic ligatures. The second specimen was sentinel field. The specimen had an anastomosis. In the proximal portion of this anastomosis is a resolution clip that is on the site of bleeding. I then performed a functional naia-my-msrj anastomosis along the antimesenteric border using ALLISON. The resulting enterotomy was opened and the mucosa inspected there is no evidence of bleeding and no evidence of angioma dysplasia. The enterotomy was closed with a TA 60 instrument. I then oversewed the entire staple line with interrupted 3-0 silk. The resulting anastomosis was an excellent technical result. The defect in the mesentery is now quite large and was closed with interrupted 2-0 Vicryl stitches. The abdomen was irrigated with copious amounts of antibiotic containing solution there was no evidence of enterotomy midline was closed with looped 0 PDS and skin with interrupted Vicryl and skin clips.
[2016-09-06] MEDS ORDERED: Ondansetron 4 MG/2 ML VIAL IVP PRN (18:43)
[2016-09-06] MEDS ORDERED: Albuterol 2.5 MG/3 ML NEBULIZER ONE (19:00)
[2016-09-06] MEDS ORDERED: Albuterol 2.5 MG/3 ML NEBULIZER IH ONE (19:03)
[2016-09-06] MEDS: *HR* HYDROmorphone (PF) 1 MG/ML SYRINGE IVP PRN ×2 (19:09→19:15)
--- NOTE | 2016-09-06 19:46 | Anesthesia Evaluation Post Op ---
Date of Encounter: 09/06/16 Time of Encounter: 19:45 - Vital Signs Vital Signs: Vital Signs/O2 Sat, Most Current Temp Pulse Resp BP Pulse Ox 98.6 F 85 20 107/75 94 09/06/16 18:59 09/06/16 19:19 09/06/16 19:19 09/06/16 19:19 09/06/16 19:19 - Lungs Lungs: Wheezes, Treatment Ordered - Airway Airway: Non-obstructed - Cardiovascular Regular Rate - Mental Status Mental Status: Alert & Oriented, Answers Appropriately - Pain Pain Scale: 3 Pain Scale used: Numeric (1 - 10) - Nausea Vomiting Nausea Vomiting: Not Present - Hydration Hydration: NPO, Watkins catheter - Discharge PostOp Status: Transfer Patient to floor
[2016-09-06] MEDS ORDERED: *HR* Metoprolol 5 MG/5 ML VIAL IVP PRN (20:47)
[2016-09-06] MEDS ORDERED: Insulin DETEMIR 100 UNIT/ML X5UNITS SQ SCH (21:00)
[2016-09-06] MEDS: 0.9 % Sodium Chloride 1,000 ML IVC SCH (21:34)
[2016-09-06] MEDS: *HR* LORazepam 2 MG/ML VIAL IVP PRN (21:46)
[2016-09-06] MEDS ORDERED: Ondansetron 4 MG/2 ML VIAL IVP ONE (21:56)
[2016-09-06] MEDS: ceFAZolin 2,000 MG in D5% in Water 100 ML IVPB SCH (23:55)
[2016-09-07] MEDS: *HR* HYDROmorphone (PF) 1 MG/ML SYRINGE IVP PRN ×9 (02:27→21:06)
[2016-09-07] MEDS: Ipratropium/Albuterol Neb 3 ML IH SCH ×5 (03:32→20:19)
[2016-09-07 04:48] LABS: Hematocrit 24.2 % (35.3-44.9); Hemoglobin 7.9 g/dL (11.5-15.4); Mean Corpuscular HGB Conc 32.6 g/dL (31.6-35.5); Mean Corpuscular Hemoglobin 28.9 pg (28.0-33.3); Mean Corpuscular Volume 88.6 fL (83.0-100.0); Mean Platelet Volume 11.3 fL (9.4-12.4); Platelet Count 203 K/mcL (140-400); Red Blood Count 2.73 M/mcL (3.82-4.97); Red Cell Distribution Width 14.6 % (11.5-14.5)
[2016-09-07 05:02] LABS: Calcium 8.4 mg/dL (8.6-10.8); Potassium 5.6 mEq/L (3.5-4.5)
[2016-09-07 05:19] LABS: Lymphocytes # 0.6 K/mcL (0.6-4.6); Monocytes # 0.3 K/mcL (0.0-1.3); Neutrophils # 15.1 K/mcL (1.6-8.9); Platelet Estimate Normal (Normal)
[2016-09-07] MEDS: ceFAZolin 2,000 MG in D5% in Water 100 ML IVPB SCH (07:44)
[2016-09-07] MEDS ORDERED: 0.9 % Sodium Chloride 500 ML IVC ONE (07:51)
[2016-09-07] MEDS: Insulin LISPRO 300 UNITS/3 ML VIAL SQ SCH ×4 (08:42→21:00)
--- NOTE | 2016-09-07 09:47 | Internal Med Progress Note ---
Date of Encounter: 09/07/16 Time of Encounter: 09:47 - Assessment and plan (1) Acute kidney injury superimposed on CKD Current Visit: Yes Status: Acute Assessment and plan: Possibly from dehydration Patient with steroid dependent COPD and CHF Will give gentle boluses Renal is following Associated hyperkalemia, will give calcium as patient is NPO Avoid nephrotoxins Hold lasix Monitor Chem (2) GIB (gastrointestinal bleeding) Current Visit: Yes Status: Acute Assessment and plan: Secondary to colonic angiodysplasia in the setting of anticoagulation s/p hemicolectomy No recurrent bleeds Continue to monitor Hb Qualifiers: GI bleed type/associated pathology: unspecified gastrointestinal hemorrhage type Qualified Code(s): K92.2 - Gastrointestinal hemorrhage, unspecified (3) Acute exacerbation of chronic obstructive airways disease Current Visit: Yes Status: Acute Assessment and plan: Patient with chronic respiratory failure and possible retainer Needs BiPAP at night Patient is steroid dependent Currently NPO Will give 10mg solumedrol daily and convert to prednisone po when patient starts tolerating Continue duonebs and O2 supplement (4) CKD (chronic kidney disease) stage 4, GFR 15-29 ml/min Current Visit: Yes Status: Chronic Assessment and plan: As in ELLE on CKD (5) Hypertension Current Visit: Yes Status: Chronic Assessment and plan: Controlled, Medications held due to low blood pressures possibly from pain medications Will resume prn Qualifiers: Hypertension type: essential hypertension Qualified Code(s): I10 - Essential (primary) hypertension (6) HCAP (healthcare-associated pneumonia) Current Visit: Yes Status: Resolved Assessment and plan: CXR shows minimal increase infiltrate, Resume Cefepime-Day 4 (7) Atrial fibrillation with RVR Current Visit: Yes Status: Acute Assessment and plan: Rate is controlled No longer on Eliquis due to GI bleed IV Lopressor when necessary tachycardia Patient is nothing by mouth. (8) Acute and chronic respiratory failure ([id number]) Current Visit: Yes Status: Acute Assessment and plan: Secondary to COPDE/CHFE/Afib Continue O2 supplement BiPAP at night Qualifiers: Respiratory failure complication: hypoxia Qualified Code(s): J96.21 - Acute and chronic respiratory failure with hypoxia (9) CHF (congestive heart failure) Current Visit: Yes Status: Chronic Assessment and plan: Improving. Continue beta jean-pierre and supportive care. Lasix. Qualifiers: Congestive heart failure type: diastolic Congestive heart failure chronicity: chronic Qualified Code(s): I50.32 - Chronic diastolic (congestive ) heart failure (10) Leukocytosis Current Visit: Yes Status: Acute Assessment and plan: Possibly reactionary from stress of surgery Monitor a.m Qualifiers: Leukocytosis type: unspecified Qualified Code(s): D72.829 - Elevated white blood cell count, unspecified - Subjective Interval history: 76 Y/O F Seen and evaluated at bedside with family Complicated hospital stay Patient with admission for COPDE, Afib with RVR, HCAP Hospital say complicated by LGIB s/p colonoscopy with angiodysplasia which was cauterized, recurrent bleed She is postop day 1 status post right hemicolectomy. She had some episodes of low blood pressures overnight and is on IV fluids. He is still requiring hourly intravenous Dilaudid doses Labs today significant for leukocytosis and ELLE on CKD - Constitutional Vitals: Temp Pulse Resp BP Pulse Ox 98.5 F 93 14 127/69 92 09/07/16 08:00 09/07/16 08:00 09/07/16 08:00 09/07/16 08:00 09/07/16 08:00 VSS, O2 sat 89-90% on 15L O2 by face mask. Gen: In mild painful distress Neuro: AAOX3, moves all limbs spontaneously, no focal deficits, patient is not speaking at all today, she is following commands As per daughter at the bedside, patient talked to her prior to my review HEENT: Moist mucosa, no cyanosis, ELOISE Chest: Clear to auscultation bilaterally, no wheezes, no rhonchi, no stridor. Heart: S1, S2, RRR, no m/g/r Abdomen: Soft, not tender, no palpably enlarged organs. Midline wound dressing clean and dry Extremities: No pedal edema, pulses equal bilaterally General appearance: Present: A&O X 3, pleasant, obese, answers questions appropriately Internal Medicine: Result - Labs CBC & Chem 7: 09/07/16 03:30 09/07/16 03:30 Labs: Short CBC 09/07/16 Range/Units 03:30 WBC 16.1 H D (4.3-11.1) K/mcL Hgb 7.9 L (11.5-15.4) g/dL Hct 24.2 L (35.3-44.9) % Plt Count 203 (140-400) K/mcL Neutrophils # 15.1 H (1.6-8.9) K/mcL BMP 09/07/16 03:30 Sodium 135 L Potassium 5.6 H Chloride 98 Carbon Dioxide 27 BUN 114 H Creatinine 3.12 H Glucose 146 H Calcium 8.4 L - ABG Interpretation ABG results: PT/INR, D-dimer PT 10.3 Seconds (9.4-12.1) 08/25/16 16:51 - VTE Documentation of Mechanical Device: Intermittent pneumatic compression device Consult Discharge Plan - Plan Referrals: Kj Yost MD [Partnered Physician] - 09/13/16 1:00 pm Garcia,Therese Mccormick CNP [Primary Care Provider] - () Prudence Escobedo MD [Partnered Physician] - (SENT WEB REQUEST ON 09-06-16 @ [phone] )
--- NOTE | 2016-09-07 10:43 | General Surgery Progress Note ---
Date of Encounter: 09/07/16 Time of Encounter: 10:00 - Assessment and Plan (1) Angiodysplasia of colon Current Visit: Yes Status: Acute POD #1 Extended right hemicolectomy. Lysis of adhesions times [address] Moy Maintain bowel rest while awaiting return of bowel function NG tube to low intermittent wall suction IV fluids at 50 mL per hour Supportive care and pain control- Ofirmev scheduled every 8 hours and continue as needed Dilaudid IV antibiotics- Cefepime IS every 1 hour while awake Repeat am labs Maintain Hart catheter for strict I and O's Daily dressing change- complete today PPI therapy daily (2) Acute and chronic respiratory failure ([id number]) Current Visit: Yes Status: Acute IS every 1 hour while awake Aggressive pulmonary toilet Continue aerosol treatments as ordered Wean oxygen as tolerated Management per medicine service Qualifiers: Respiratory failure complication: hypoxia Qualified Code(s): J96.21 - Acute and chronic respiratory failure with hypoxia (3) Insulin dependent type 2 diabetes mellitus Current Visit: Yes Status: Chronic Stable Management per medicine service (4) Acute kidney injury superimposed on CKD Current Visit: Yes Status: Acute Cr- 2.66>3.12 IV fluids Avoid nephrotoxic medications Continue Hart catheter for strict I's and O's Nephrology following (5) DVT prophylaxis Current Visit: No Status: Acute Continue EPCDs to bilateral lower extremities for DVT prophylaxis Add heparin 5,000 units SQ twice daily for DVT prophylaxis starting 09/08/16 am Subjective Patient reports: no flatus, no bowel movement, afebrile, other (Patient lethargic, confused. Daughters report that she had a restless night.) Objective Vital Signs - Last 8 Hours Temp Pulse Resp BP Pulse Ox 09/07/16 08:00 98.5 F 93 14 127/69 92 09/07/16 07:45 94 93 09/07/16 04:53 98.2 F 86 11 91/68 92 09/07/16 03:33 14 954 Intake and Output 09/06/16 09/07/16 09/07/16 23:59 07:59 15:59 Intake Total 100 / 100 100 / 100 Output Total 100 / 100 225 / 225 Balance 0 / 0 -125 / -125 Intake: IV Fluids 100 / 100 100 / 100 Ancef 2,000 MG In 100 / 100 Dextrose 5% 100 ML @ 200 mls/hr IVPB Q8HR [facility] Rx#: [id number] Mefoxin 2,000 MG In 100 / 100 Dextrose 5% (Minibag+) 100 ML 100 ML @ 200 mls/ hr IVPB ONCE ONE Rx#: [id number] Output: Estimated Blood Loss 100 / 100 Catheter 225 / 225 Other: Weight 89.2 kg Blood Glucose* 156 175 221 Patient Weight 09/07/16 23:59 Weight 89.2 kg - General physical appearance well developed, well nourished, moderate pain, obese - Eyes normal ocular movement - ENT dry mucosa, atraumatic, normocephalic - Neck Neck exam: trachea midline - Respiratory normal respiratory effort, clear to auscultation, other (diminished bibasilar bases; 15L of oxygen via face mask) - Cardiovascular Cardiovascular exam: Present: RRR - Abdomen Abdomen: Present: soft, tender (expected post-operative tenderness), wound ( Midline incision with minimal amount of old serousang. drainage noted) - Incision Incision: Present: clean and dry, intact - Genitourinary other (hart catheter to SD with clear, yellow urine noted (225ml noted since midnight)) - Neurologic CN 2-12 grossly intact - Psychiatric oriented to person - Labs 09/07/16 03:30 09/07/16 03:30 Diabetes panel 09/07/16 Range/Units 03:30 Sodium 135 L (136-145) mEq/L Potassium 5.6 H (3.5-4.5) mEq/L Chloride 98 (98-109) mEq/L Carbon Dioxide 27 (19-29) mEq/L BUN 114 H (7-20) mg/dL Creatinine 3.12 H (0.57-1.11) mg/dL Glucose 146 H (70-99) mg/dL Calcium 8.4 L (8.6-10.8) mg/dL Calcium panel 09/07/16 Range/Units 03:30 Calcium 8.4 L (8.6-10.8) mg/dL Pituitary panel 09/07/16 Range/Units 03:30 Sodium 135 L (136-145) mEq/L Potassium 5.6 H (3.5-4.5) mEq/L Chloride 98 (98-109) mEq/L Carbon Dioxide 27 (19-29) mEq/L BUN 114 H (7-20) mg/dL Creatinine 3.12 H (0.57-1.11) mg/dL Glucose 146 H (70-99) mg/dL Calcium 8.4 L (8.6-10.8) mg/dL Adrenal panel 09/07/16 Range/Units 03:30 Sodium 135 L (136-145) mEq/L Potassium 5.6 H (3.5-4.5) mEq/L Chloride 98 (98-109) mEq/L Carbon Dioxide 27 (19-29) mEq/L BUN 114 H (7-20) mg/dL Creatinine 3.12 H (0.57-1.11) mg/dL Glucose 146 H (70-99) mg/dL Calcium 8.4 L (8.6-10.8) mg/dL - VTE Documentation of Mechanical Device: Intermittent pneumatic compression device Consult Discharge Plan - Plan Referrals: Kj Yost MD [Partnered Physician] - 09/13/16 1:00 pm Garcia,Therese Mccormick CNP [Primary Care Provider] - () Prudence Escobedo MD [Partnered Physician] - (SENT WEB REQUEST ON 09-06-16 @ [phone] ) - Attending Attestation I examined this patient and my medical decision-making was reviewed with the CAPTAIN/CHECK AIRMAN/PA/Advanced Practice Nurse/Resident Physician. I agree with the documented findings, disposition and treatment plan as described except to the extent set forth below. Stable The patient is seen and evaluated on morning rounds and is ready for discharge Sukumar Moy MD FACS
[2016-09-07] MEDS ORDERED: *HR* Heparin 10,000 UNIT/10 ML VIAL IV PRN (11:23)
[2016-09-07] MEDS ORDERED: 0.9 % Sodium Chloride 250 ML IVC PRN (11:23)
[2016-09-07] MEDS ORDERED: 0.9 % Sodium Chloride 1,000 ML PRIME SCH (11:30)
[2016-09-07] MEDS ORDERED: *HR* Heparin 5,000 UNIT/ML VIAL ONE ×2 (12:39→13:50)
[2016-09-07] MEDS: Acetaminophen IV 1,000 MG/100 ML INFUS..BTL IVPB SCH ×2 (12:50→18:41)
[2016-09-07] MEDS: *HR* LORazepam 2 MG/ML VIAL IVP PRN ×2 (13:46→21:07)
[2016-09-07] MEDS: Pantoprazole 40 MG VIAL IVP SCH (13:47)
[2016-09-07] MEDS: MethylPREDNISolone 40 MG/ML VIAL IVP SCH (13:47)
--- NOTE | 2016-09-07 14:19 | IR Procedure Note ---
Date of procedure: 09/07/16 Consent Obtained: Written consent Timeout: Correct patient and procedure verified, Correct site verified, Time out performed, Skin prep completed Local anesthetic: Lidocaine 1% Indications: Renal insufficiency Procedure Performed: Temp HD catheter placement Site/Technique: RIJV used for access Results/Findings: Working well. Adjusted, as initally too deep. CXR pending Estimated blood loss (cc): 1 Complications: None; Tolerated procedure well Post Procedure Treatment Plan: Monitoring in pts room
[2016-09-07 15:34] LABS: Hepatitis B Surface Antibody 3.83 mIU/mL; Hepatitis B Surface Antigen Nonreactive (Nonreactive)
[2016-09-07] MEDS ORDERED: 0.9 % Sodium Chloride 2,000 ML ONE (17:16)
[2016-09-07] MEDS: Insulin DETEMIR 100 UNIT/ML X5UNITS SQ SCH (21:00)
[2016-09-07] MEDS: 0.9 % Sodium Chloride 1,000 ML IVC SCH (23:01)
[2016-09-08] MEDS: Ipratropium/Albuterol Neb 3 ML IH SCH ×7 (00:05→23:42)
[2016-09-08] MEDS: *HR* HYDROmorphone (PF) 1 MG/ML SYRINGE IVP PRN ×6 (00:41→21:20)
[2016-09-08 06:34] LABS: Hematocrit 20.7 % (35.3-44.9); Hemoglobin 6.5 g/dL (11.5-15.4); Mean Corpuscular HGB Conc 31.4 g/dL (31.6-35.5); Mean Corpuscular Hemoglobin 28.3 pg (28.0-33.3); Mean Platelet Volume 10.8 fL (9.4-12.4); Platelet Count 195 K/mcL (140-400); Red Cell Distribution Width 14.7 % (11.5-14.5)
[2016-09-08 06:58] LABS: Calcium 8.7 mg/dL (8.6-10.8); Potassium 5.7 mEq/L (3.5-4.5)
[2016-09-08 07:14] LABS: Lymphocytes # 0.7 K/mcL (0.6-4.6); Platelet Estimate Normal (Normal)
[2016-09-08] MEDS ORDERED: Calcium Gluconate 1,000 MG in D5% in Water 100 ML IVPB ONE (07:34)
--- NOTE | 2016-09-08 07:38 | Internal Med Progress Note ---
Date of Encounter: 09/08/16 Time of Encounter: 07:36 - Assessment and plan (1) Acute kidney injury superimposed on CKD Current Visit: Yes Status: Acute Assessment and plan: s/p Right CVC and HD yesterday Chem today still with hyperkalemia and worsening GFR and Cr I believe patient may be dehydrated, she is on 50cc/her IVF, BP WNL Patient with steroid dependent COPD and CHF Continue to hold lasix Continue IVF Consider IV saline bolus X1 Gave 1g Calcium gluconate for hyperkalemia, patient may need another session of HD today for hyperkalemia Nephrology following, appreciate input (2) GIB (gastrointestinal bleeding) Current Visit: Yes Status: Acute Assessment and plan: Secondary to colonic angiodysplasia in the setting of anticoagulation s/p hemicolectomy POD 2, Surgery following No recurrent bleeds Acute Hb drop possibly from surgery, will transfuse Qualifiers: GI bleed type/associated pathology: unspecified gastrointestinal hemorrhage type Qualified Code(s): K92.2 - Gastrointestinal hemorrhage, unspecified (3) Acute exacerbation of chronic obstructive airways disease Current Visit: Yes Status: Acute Assessment and plan: Patient with chronic respiratory failure and possible retainer Needs BiPAP at night Patient is steroid dependent Currently NPO Will give 10mg solumedrol daily and convert to prednisone po when patient starts tolerating Continue duonebs and O2 supplement (4) CKD (chronic kidney disease) stage 4, GFR 15-29 ml/min Current Visit: Yes Status: Chronic Assessment and plan: As in ELLE on CKD (5) Hypertension Current Visit: Yes Status: Chronic Assessment and plan: Controlled, Medications held due to low blood pressures possibly from pain medications Will resume prn Qualifiers: Hypertension type: essential hypertension Qualified Code(s): I10 - Essential (primary) hypertension (6) HCAP (healthcare-associated pneumonia) Current Visit: Yes Status: Acute Assessment and plan: CXR shows minimal increase infiltrate, Resume Cefepime-Day 4 (7) Atrial fibrillation with RVR Current Visit: Yes Status: Acute Assessment and plan: Rate is controlled No longer on Eliquis due to GI bleed IV Lopressor when necessary tachycardia Patient is nothing by mouth. (8) Acute and chronic respiratory failure ([id number]-trygcey) Current Visit: Yes Status: Acute Assessment and plan: Secondary to COPDE/CHFE/Afib Continue O2 supplement BiPAP at night Qualifiers: Respiratory failure complication: hypoxia Qualified Code(s): J96.21 - Acute and chronic respiratory failure with hypoxia (9) CHF (congestive heart failure) Current Visit: Yes Status: Chronic Assessment and plan: Improving. Continue beta jean-pierre and supportive care. Hold Lasix. Qualifiers: Congestive heart failure type: diastolic Congestive heart failure chronicity: chronic Qualified Code(s): I50.32 - Chronic diastolic (congestive ) heart failure (10) Leukocytosis Current Visit: Yes Status: Acute Assessment and plan: Possibly reactionary from stress of surgery and acute blood loss PLT count WNL, Hb drop today o 6.5 Will give 2 units RBCS Patient is afebrile, will send blood culture from peripheral line Monitor a.m Qualifiers: Leukocytosis type: unspecified Qualified Code(s): D72.829 - Elevated white blood cell count, unspecified - Subjective Interval history: 76 Y/O F Seen and evaluated at bedside with family Complicated hospital stay Patient with admission for COPDE, Afib with RVR, [facility] say complicated by LGIB s/p colonoscopy with angiodysplasia which was cauterized, recurrent bleed She is postop day 2 status post right hemicolectomy. Post-op complicated by ELLE on CKD with oliguria, patient had CVC placed 5/3 and started on HD Total Urine output 5/3-400cc Total Gastric output in past 24 hrs NG-250cc Patient still requiring hrly pain meds Labs today with persistent leukocytosis and acute blood loss anemia. - Constitutional Vitals: Temp Pulse Resp BP Pulse Ox 98.2 F 101 15 114/63 94 09/08/16 06:59 09/08/16 06:59 09/08/16 06:59 09/08/16 06:59 09/08/16 06:59 VSS, O2 sat 89-92% on 7L O2 by face mask. Patient is moaning in pain, she is able to open her eyes and follows commands, however, she is unable to specifically locate site of alexis She has very dry oral mucosa Neuro: AAOX3, moves all limbs spontaneously, no focal deficits HEENT: Right IJ CVC, soaked dressing, Very dry oral mucosa, no cyanosis, ELOISE Chest: Anterior chest wall ecchymosis at the site of a loop recorder on the left chest wall Chest is Clear to auscultation bilaterally, no wheezes, no rhonchi, no stridor. Heart: S1, S2, RRR, no m/g/r Abdomen: Soft, not tender, no palpably enlarged organs. Midline wound dressing clean and dry. No bowel sounds heard in all quadrants Extremities: No pedal edema, pulses equal bilaterally General appearance: Present: A&O X 3, pleasant, obese, answers questions appropriately Internal Medicine: Result - Labs CBC & Chem 7: 09/08/16 11:50 09/08/16 05:10 Labs: Short CBC 09/08/16 Range/Units 05:10 WBC 16.7 H (4.3-11.1) K/mcL Hgb 6.5 L (11.5-15.4) g/dL Hct 20.7 L (35.3-44.9) % Plt Count 195 (140-400) K/mcL Neutrophils # 15.0 H (1.6-8.9) K/mcL BMP 09/08/16 05:10 Sodium 138 Potassium 5.7 H Chloride 103 Carbon Dioxide 24 BUN 95 H Creatinine 3.35 H Glucose 109 H Calcium 8.7 - ABG Interpretation ABG results: PT/INR, D-dimer PT 10.3 Seconds (9.4-12.1) 08/25/16 16:51 - Impressions Impressions Guidance Needle Placement Ultrasound 09/07/16 00:00 IMPRESSION: Successful temporary hemodialysis catheter placement, which may be used immediately. The patient tolerated the procedure well. D/ / Lalo Weinstein MD / Lalo Weinstein MD Interpreting Provider: Lalo Weinstein MD Insertion Non-Tunneled Catheter 09/07/16 00:00 IMPRESSION: Successful temporary hemodialysis catheter placement, which may be used immediately. The patient tolerated the procedure well. D/ / Lalo Weinstein MD / Lalo Weinstein MD Interpreting Provider: Lalo Weinstein MD Chest X-Ray 09/07/16 12:50 IMPRESSION: Temporary hemodialysis catheter, without pneumothorax. This does appear to be within the base of the atrium. Recommend pulling this back 4 cm. I placed this catheter, and am aware of the findings. D/ / Lalo Weinstein MD / Lalo Weinstein MD Interpreting Provider: Lalo Weinstein MD Chest X-Ray 09/07/16 14:17 IMPRESSION: Enteric tube has been retracted and tip now lies at SVC/ right atrial junction. No pneumothorax. Otherwise stable exam. D/ / Addy Pierce MD / Addy Pierce MD Interpreting Provider: Addy Pierce MD - VTE Documentation of Mechanical Device: Intermittent pneumatic compression device Consult Discharge Plan - Plan Referrals: Edith Peña CNP [Advanced Practice Nurse] - 09/26/16 10:15 am Kj Yost MD [Partnered Physician] - 09/13/16 1:00 pm Therese Garcia CNP [Primary Care Provider] - 09/15/16 9:00 am () Prudence Escobedo MD [Partnered Physician] - 10/11/16 3:50 pm ()
[2016-09-08] MEDS: *HR* Heparin 5,000 UNIT/ML VIAL SQ SCH ×3 (07:47→19:17)
[2016-09-08] MEDS: Insulin LISPRO 300 UNITS/3 ML VIAL SQ SCH ×3 (08:00→19:19)
[2016-09-08] MEDS: Acetaminophen IV 1,000 MG/100 ML INFUS..BTL IVPB SCH ×2 (08:10→21:33)
[2016-09-08] MEDS: Pantoprazole 40 MG VIAL IVP SCH (08:11)
[2016-09-08] MEDS ORDERED: 0.9 % Sodium Chloride 1,000 ML PRIME SCH (09:00)
[2016-09-08] MEDS ORDERED: 0.9 % Sodium Chloride 250 ML IVC PRN (09:00)
[2016-09-08] MEDS ORDERED: Cefepime HCl 1,000 MG in D5% in Water (Mini-Bag+) 100 ML IVPB SCH (09:00)
[2016-09-08] MEDS ORDERED: *HR* Heparin 10,000 UNIT/10 ML VIAL IV PRN (09:00)
--- NOTE | 2016-09-08 09:46 | Nephrology Progress Note ---
Date of Encounter: 09/08/16 Time of Encounter: 09:43 - Assessment and Plan (1) CKD (chronic kidney disease) stage 4, GFR 15-29 ml/min Current Visit: Yes Status: Chronic Scr and GFR worse today; 1st HD tx yesterday, will proceed with dialysis again today. UOP 225 yesterday (2) Acute exacerbation of chronic obstructive airways disease Current Visit: Yes Status: Acute per primary team (3) Anemia Current Visit: Yes Status: Chronic Hgb 6.5; day 2 s/p hemicolectomy. Has orders to transfuse PRBCs Qualifiers: Anemia type: iron deficiency Iron deficiency anemia type: unspecified iron deficiency Qualified Code(s): D50.9 - Iron deficiency anemia, unspecified Subjective Principal diagnosis: ELLE on CKD, COPD, PAF Interval history: Patient seen and examined. Daughter at bedside; getting ready to be transported to dialysis Objective - Vital Signs Vital signs: Vital Signs Temp Pulse Resp BP Pulse Ox 09/08/16 08:55 108 09/08/16 07:55 16 90 09/08/16 06:59 98.2 F 101 15 114/63 94 09/08/16 04:46 99.3 F 90 11 134/68 97 09/08/16 00:06 13 95 09/07/16 23:06 98.1 F 86 12 122/84 94 09/07/16 20:31 12 95 09/07/16 19:45 97 09/07/16 18:00 98.5 F 86 18 112/67 94 09/07/16 17:50 99.3 F 14 123/94 09/07/16 17:45 109/54 09/07/16 17:30 102/55 09/07/16 17:15 114/59 09/07/16 17:00 132/92 09/07/16 16:45 107/63 09/07/16 16:30 136/72 09/07/16 16:15 118/38 09/07/16 16:00 126/65 09/07/16 15:45 99.3 F 18 147/73 09/07/16 15:34 12 92 09/07/16 13:05 96 09/07/16 11:35 99.3 F 92 16 115/67 91 09/07/16 11:08 16 92 Intake and Output 09/07/16 09/08/1617 23:59 07:59 15:59 Intake Total 1000 / 1000 0 / 0 Output Total 1250 / 1250 100 / 100 Balance -250 / -250 -100 / -100 0 / 0 Intake: IV Fluids 1000 / 1000 0.9 % Sodium Chloride 1, 1000 / 1000 000 ML @ 50 mls/hr IVC . Q20H [facility] Rx#:[id number] Oral 0 / 0 Output: Urine 0 / 0 Gastric Tube Lavage 400 / 400 100 / 100 Amount Left Nare 400 / 400 100 / 100 Total Dialysis Output 600 / 600 Gastric Drainage 250 / 250 Other: Meal Breakfast Percent of Meal Consumed 0% Weight 90.4 kg Blood Glucose* 94 117 Hemodialysis Net Fluid 0 Removed (mL) Patient Weight 09/08/16 23:59 Weight 90.4 kg - General Appearance General appearance: Present: obese EENT: Present: ATNC Neck: Present: supple Cardiology: Present: rapid rhythm Dialysis Vascular Access: Venous Catheter Integumentary: Present: warm and dry - Lab 09/08/16 05:10 09/08/16 05:10 Most recent lab results Calcium 8.7 mg/dL (8.6-10.8) 09/08/16 05:10 Phosphorus 3.9 mg/dL (2.3-4.7) 09/01/16 06:33 Magnesium 2.5 mg/dL (1.6-2.6) 09/06/16 04:54 Urine Creatinine 40 mg/dL 08/25/16 13:19 Urine Sodium 30.0 mEq/L 08/25/16 13:19 Urine Total Protein 22 mg/dL (1-14) H 08/24/16 14:18 - VTE Documentation of Mechanical Device: Intermittent pneumatic compression device Consult Discharge Plan - Plan Referrals: Edith Peña CNP [Advanced Practice Nurse] - 09/26/16 10:15 am Kj Yost MD [Partnered Physician] - 09/13/16 1:00 pm Therese Garcia CNP [Primary Care Provider] - 09/15/16 9:00 am () Prudence Escobedo MD [Partnered Physician] - 10/11/16 3:50 pm ()
[2016-09-08 12:21] LABS: Basophils % 0.1 %; Hematocrit 26.8 % (35.3-44.9); Immature Granulocytes % 0.8 % (0-4); Lymphocytes # 0.3 K/mcL (0.6-4.6); Lymphocytes % 1.7 %; Mean Corpuscular HGB Conc 32.5 g/dL (31.6-35.5); Mean Corpuscular Hemoglobin 28.4 pg (28.0-33.3); Mean Corpuscular Volume 87.6 fL (83.0-100.0); Mean Platelet Volume 10.7 fL (9.4-12.4); Monocytes # 0.7 K/mcL (0.0-1.3); Monocytes % 4.5 %; Neutrophils # 14.3 K/mcL (1.6-8.9); Platelet Count 189 K/mcL (140-400); Red Blood Count 3.06 M/mcL (3.82-4.97); Red Cell Distribution Width 14.9 % (11.5-14.5); Segmented Neutrophils % 92.9 %
[2016-09-08 12:28] LABS: Hemoglobin 8.7 g/dL (11.5-15.4)
[2016-09-08 12:49] LABS: Platelet Estimate Normal (Normal)
[2016-09-08] MEDS: 0.9 % Sodium Chloride 1,000 ML IVC SCH (13:10)
[2016-09-08] MEDS: MethylPREDNISolone 40 MG/ML VIAL IVP SCH (13:11)
--- NOTE | 2016-09-08 13:49 | General Surgery Progress Note ---
Date of Encounter: 09/08/16 Time of Encounter: 13:30 - Assessment and Plan (1) Angiodysplasia of colon Current Visit: Yes Status: Acute POD #1 Extended right hemicolectomy. Lysis of adhesions times [address] Moy Maintain bowel rest while awaiting return of bowel function NG tube to low intermittent wall suction IV fluids at 50 mL per hour Supportive care and pain control- Ofirmev scheduled every 8 hours and continue as needed Dilaudid IV antibiotics- Cefepime IS every 1 hour while awake Repeat am labs Maintain Watkins catheter for strict I and O's Daily dressing change- complete today PPI therapy daily 08/09/2016. The patient is now on temporary dialysis for rising creatinine and hyperkalemia. No bowel sounds yet. Continue maximum supportive care (2) Acute and chronic respiratory failure ([id number]) Current Visit: Yes Status: Acute IS every 1 hour while awake Aggressive pulmonary toilet Continue aerosol treatments as ordered Wean oxygen as tolerated Management per medicine service Qualifiers: Respiratory failure complication: hypoxia Qualified Code(s): J96.21 - Acute and chronic respiratory failure with hypoxia (3) Insulin dependent type 2 diabetes mellitus Current Visit: Yes Status: Chronic Stable Management per medicine service (4) Acute kidney injury superimposed on CKD Current Visit: Yes Status: Acute Cr- 2.66>3.12 IV fluids Avoid nephrotoxic medications Continue Watkins catheter for strict I's and O's Nephrology following (5) DVT prophylaxis Current Visit: No Status: Acute Continue EPCDs to bilateral lower extremities for DVT prophylaxis Add heparin 5,000 units SQ twice daily for DVT prophylaxis starting 09/08/16 am Subjective Narrative: The patient was started on dialysis. Potassium levels were high with a rising creatinine. Since surgery she has not responded normally to verbal stimuli. She is confused. She is complaining of pain intermittently. Today the incision is clean and dry she is afebrile. We will continue maximum supportive medical therapy. Objective Vital Signs - Last 8 Hours Temp Pulse Resp BP Pulse Ox 09/08/16 13:27 100 09/08/16 12:54 98.9 F 22 147/61 09/08/16 12:25 121/77 09/08/16 12:20 116/77 09/08/16 12:10 116/62 09/08/16 11:55 116/62 09/08/16 11:41 98 F 100 22 115/55 09/08/16 11:40 121/77 09/08/16 11:30 118/68 09/08/16 11:26 97.5 F L 120 22 123/61 09/08/16 11:25 128/63 09/08/16 11:10 120/66 09/08/16 10:55 113/56 09/08/16 10:40 120/53 09/08/16 10:25 126/59 09/08/16 10:10 98.9 F 22 147/61 09/08/16 08:55 108 09/08/16 07:55 16 90 09/08/16 06:59 98.2 F 101 15 114/63 94 Intake and Output 09/07/16 09/08/16 09/08/16 23:59 07:59 15:59 Intake Total 1000 / 1000 1260 / 1260 Output Total 1250 / 1250 100 / 100 670 / 670 Balance -250 / -250 -100 / -100 590 / 590 Intake: IV Fluids 1000 / 1000 310 / 310 0.9 % Sodium Chloride 1, 1000 / 1000 000 ML @ 50 mls/hr IVC . Q20H [facility] Rx#:[id number] Ofirmev 1,000 mg/100 ml 1 100 / 100 ,000 mg In 100 ml @ 400 mls/hr IVPB Q8H [facility] Rx#: [id number] Calcium Gluconate 1,000 110 / 110 MG In Dextrose 5% 100 ML @ 220 mls/hr IVPB ONCE ONE Rx#:[id number] Maxipime 1,000 MG In 100 / 100 Dextrose 5% (Minibag+) 100 ML 100 ML @ 200 mls/ hr IVPB Q24H [facility] Rx#: [id number] Oral 0 / 0 Blood Product 350 / 350 Rbcs Leuko Poor As-1 350 / 350 Unit [id number] Intake, Rinseback and 600 / 600 Flushes Output: Urine 0 / 0 0 / 0 Gastric Tube Lavage 400 / 400 100 / 100 Amount Left Nare 400 / 400 100 / 100 Total Dialysis Output 600 / 600 670 / 670 Gastric Drainage 250 / 250 Other: Meal Breakfast Percent of Meal Consumed 0% Weight 90.4 kg 90.4 kg Blood Glucose* 94 117 179 Hemodialysis Net Fluid 0 70 Removed (mL) Patient Weight 09/08/16 23:59 Weight 90.4 kg - General physical appearance chronically ill, obese - Respiratory crackles: bilateral (Rhonchi present in both bases) - Cardiovascular Cardiovascular exam: Present: tachycardia, no murmurs/rubs/gallops - Abdomen Abdomen: Present: soft, non tender (No bowel sounds) - Incision Incision: Present: clean and dry - Neurologic confused, disoriented - Labs 09/08/16 11:50 09/08/16 05:10 Diabetes panel 09/08/16 Range/Units 05:10 Sodium 138 (136-145) mEq/L Potassium 5.7 H (3.5-4.5) mEq/L Chloride 103 (98-109) mEq/L Carbon Dioxide 24 (19-29) mEq/L BUN 95 H (7-20) mg/dL Creatinine 3.35 H (0.57-1.11) mg/dL Glucose 109 H (70-99) mg/dL Calcium 8.7 (8.6-10.8) mg/dL Calcium panel 09/08/16 Range/Units 05:10 Calcium 8.7 (8.6-10.8) mg/dL Pituitary panel 09/08/16 Range/Units 05:10 Sodium 138 (136-145) mEq/L Potassium 5.7 H (3.5-4.5) mEq/L Chloride 103 (98-109) mEq/L Carbon Dioxide 24 (19-29) mEq/L BUN 95 H (7-20) mg/dL Creatinine 3.35 H (0.57-1.11) mg/dL Glucose 109 H (70-99) mg/dL Calcium 8.7 (8.6-10.8) mg/dL Adrenal panel 09/08/16 Range/Units 05:10 Sodium 138 (136-145) mEq/L Potassium 5.7 H (3.5-4.5) mEq/L Chloride 103 (98-109) mEq/L Carbon Dioxide 24 (19-29) mEq/L BUN 95 H (7-20) mg/dL Creatinine 3.35 H (0.57-1.11) mg/dL Glucose 109 H (70-99) mg/dL Calcium 8.7 (8.6-10.8) mg/dL - VTE Documentation of Mechanical Device: Intermittent pneumatic compression device Consult Discharge Plan - Plan Referrals: Edith Peña CNP [Advanced Practice Nurse] - 09/26/16 10:15 am Kj Yost MD [Partnered Physician] - 09/13/16 1:00 pm Therese Garcia CNP [Primary Care Provider] - 09/15/16 9:00 am () Prudence Escobedo MD [Partnered Physician] - 10/11/16 3:50 pm ()
[2016-09-08] MEDS ORDERED: Dextrose Gel 15 GM PO PRN ×2 (15:17)
[2016-09-08] MEDS ORDERED: D5% in Water 1,000 ML IVC PRN (15:17)
[2016-09-08] MEDS ORDERED: 0.9 % Sodium Chloride 250 ML ONE (18:50)
[2016-09-08] MEDS: Insulin DETEMIR 100 UNIT/ML X5UNITS SQ SCH (21:00)
[2016-09-08] MEDS: Cefepime HCl 1,000 MG in D5% in Water (Mini-Bag+) 100 ML IVPB SCH (21:32)
[2016-09-09] MEDS: Insulin LISPRO 300 UNITS/3 ML VIAL SQ SCH ×3 (01:35→20:34)
[2016-09-09] MEDS: *HR* HYDROmorphone (PF) 1 MG/ML SYRINGE IVP PRN ×4 (03:11→20:32)
[2016-09-09] MEDS: Ipratropium/Albuterol Neb 3 ML IH SCH ×5 (03:57→20:55)
[2016-09-09 04:37] LABS: Basophils % 0.1 %; Hematocrit 27.3 % (35.3-44.9); Hemoglobin 8.8 g/dL (11.5-15.4); Immature Granulocytes % 1.5 % (0-4); Lymphocytes # 0.3 K/mcL (0.6-4.6); Mean Corpuscular HGB Conc 32.2 g/dL (31.6-35.5); Mean Corpuscular Volume 86.9 fL (83.0-100.0); Monocytes # 0.4 K/mcL (0.0-1.3); Monocytes % 2.5 %; Neutrophils # 13.4 K/mcL (1.6-8.9); Platelet Count 155 K/mcL (140-400); Red Blood Count 3.14 M/mcL (3.82-4.97); Red Cell Distribution Width 15.5 % (11.5-14.5); Segmented Neutrophils % 93.9 %
[2016-09-09 04:50] LABS: Calcium 8.7 mg/dL (8.6-10.8); Potassium 4.9 mEq/L (3.5-4.5)
[2016-09-09] MEDS ORDERED: 0.9 % Sodium Chloride 250 ML IVC PRN (07:34)
[2016-09-09] MEDS ORDERED: *HR* Heparin 10,000 UNIT/10 ML VIAL IV PRN (07:34)
[2016-09-09] MEDS ORDERED: 0.9 % Sodium Chloride 1,000 ML PRIME SCH (07:45)
--- NOTE | 2016-09-09 07:52 | Internal Med Progress Note ---
Date of Encounter: 09/09/16 Time of Encounter: 07:48 - Assessment and plan (1) Acute kidney injury superimposed on CKD Current Visit: Yes Status: Acute Assessment and plan: s/p Right CVC and HD yesterday Continue to hold lasix Continue IVF K improved Nephrology following, appreciate input (2) GIB (gastrointestinal bleeding) Current Visit: Yes Status: Acute Assessment and plan: Secondary to colonic angiodysplasia in the setting of anticoagulation s/p hemicolectomy POD 3, Surgery following No flatus or BM yet No recurrent bleeds Acute blood loss from surgery, improved after 2 units PRBCS Qualifiers: GI bleed type/associated pathology: unspecified gastrointestinal hemorrhage type Qualified Code(s): K92.2 - Gastrointestinal hemorrhage, unspecified (3) Acute exacerbation of chronic obstructive airways disease Current Visit: Yes Status: Acute Assessment and plan: Patient with chronic respiratory failure and possible retainer Needs BiPAP at night Patient is steroid dependent Currently NPO Taper steroids Continue duonebs and O2 supplement (4) CKD (chronic kidney disease) stage 4, GFR 15-29 ml/min Current Visit: Yes Status: Chronic Assessment and plan: As in ELLE on CKD (5) Hypertension Current Visit: Yes Status: Chronic Assessment and plan: Controlled, Medications held due to low blood pressures possibly from pain medications Will resume prn Qualifiers: Hypertension type: essential hypertension Qualified Code(s): I10 - Essential (primary) hypertension (6) HCAP (healthcare-associated pneumonia) Current Visit: Yes Status: Acute Assessment and plan: CXR shows minimal increase infiltrate, IV Cefepime-Day 10 D/C Cefepime after today's dose (7) Atrial fibrillation with RVR Current Visit: Yes Status: Acute Assessment and plan: Rate is controlled No longer on Eliquis due to GI bleed IV Lopressor q8hr KEILA, titrate prn Patient developed SVTs during HD Chest pain free (8) Acute and chronic respiratory failure ([id number]) Current Visit: Yes Status: Acute Assessment and plan: Secondary to COPDE/CHFE/Afib Continue O2 supplement BiPAP at night Qualifiers: Respiratory failure complication: hypoxia Qualified Code(s): J96.21 - Acute and chronic respiratory failure with hypoxia (9) CHF (congestive heart failure) Current Visit: Yes Status: Chronic Assessment and plan: Improving. Continue beta jean-pierre and supportive care. Hold Lasix. Qualifiers: Congestive heart failure type: diastolic Congestive heart failure chronicity: chronic Qualified Code(s): I50.32 - Chronic diastolic (congestive ) heart failure (10) Leukocytosis Current Visit: Yes Status: Acute Assessment and plan: Possibly reactionary from stress of surgery and acute blood loss PLT count WNL, Hb improved Patient is afebrile, blood culture from 09/08 negative Leukocytosis is improving Qualifiers: Leukocytosis type: unspecified Qualified Code(s): D72.829 - Elevated white blood cell count, unspecified - Subjective Interval history: 76 Y/O F Seen and evaluated at bedside with family Complicated hospital stay Patient with admission for COPDE, Afib with RVR, [facility] Hospital say complicated by LGIB s/p colonoscopy with angiodysplasia which was cauterized, recurrent bleed s/p R hemicolectomy She is postop day 3 status post right hemicolectomy. Post-op complicated by ELLE on CKD with oliguria, patient had CVC placed 09/07 and started on HD 09/07 Total Urine output 09/07-250cc Total Gastric output in past 24 hrs NG-250cc Patient still oliguric Leukocytosis is improving She developed SVTS during HD yesterday, troponin done at that time was 0.25 Patient with no chest pain, EKGs showed SVTs, known Afib. Will KEILA lopressor q8h Taper steroids Taper dilaudid Surgery, Nephrology input appreciated Start TPN, consult nutrition - Constitutional Vitals: Temp Pulse Resp BP Pulse Ox 99.6 F 111 16 129/64 94 09/09/16 04:49 09/09/16 04:49 09/09/16 07:36 09/09/16 04:49 09/09/16 07:36 VSS, O2 sat 89-92% on 7L O2 by face mask., HR WNL She is very much more awake today and able to participate in a conversation She has very dry oral mucosa Neuro: AAOX3, moves all limbs spontaneously, no focal deficits HEENT: Right IJ CVC, clean dressing, Very dry oral mucosa, no cyanosis, ELOISE Chest: Anterior chest wall ecchymosis at the site of a loop recorder on the left chest wall Chest is Clear to auscultation bilaterally, no wheezes, no rhonchi, no stridor. Heart: S1, S2, RRR, no m/g/r Abdomen: Soft, not tender, no palpably enlarged organs. Midline wound dressing clean and dry. No bowel sounds heard in all quadrants Extremities: No pedal edema, pulses equal bilaterally General appearance: Present: A&O X 3, pleasant, obese, answers questions appropriately Internal Medicine: Result - Labs CBC & Chem 7: 09/09/16 04:20 09/09/16 04:20 Labs: Short CBC 09/08/16 09/09/16 Range/Units 11:50 04:20 WBC 15.4 H 14.3 H (4.3-11.1) K/mcL Hgb 8.7 L D 8.8 L (11.5-15.4) g/dL Hct 26.8 L 27.3 L (35.3-44.9) % Plt Count 189 155 (140-400) K/mcL Neutrophils # 14.3 H 13.4 H (1.6-8.9) K/mcL BMP 09/09/16 04:20 Sodium 136 Potassium 4.9 H Chloride 100 Carbon Dioxide 20 BUN 74 H Creatinine 3.27 H Glucose 250 H Calcium 8.7 Cardiac Enzymes 09/08/16 Range/Units 11:50 Troponin I 0.25 H* (0-0.03) ng/mL - ABG Interpretation ABG results: PT/INR, D-dimer PT 10.3 Seconds (9.4-12.1) 08/25/16 16:51 - VTE Documentation of Mechanical Device: Intermittent pneumatic compression device Consult Discharge Plan - Plan Referrals: Edith Peña CNP [Advanced Practice Nurse] - 09/26/16 10:15 am Kj Yost MD [Partnered Physician] - 09/13/16 1:00 pm Jose,Therese Mccormick CNP [Primary Care Provider] - 09/15/16 9:00 am () Prudence Escobedo MD [Partnered Physician] - 10/11/16 3:50 pm ()
[2016-09-09] MEDS ORDERED: 0.9 % Sodium Chloride 2,000 ML ONE (08:03)
[2016-09-09] MEDS: MethylPREDNISolone 40 MG/ML VIAL IVP SCH (08:12)
[2016-09-09] MEDS: *HR* Heparin 5,000 UNIT/ML VIAL SQ SCH ×2 (08:12→18:05)
[2016-09-09] MEDS: Pantoprazole 40 MG VIAL IVP SCH (08:13)
[2016-09-09] MEDS: *HR* Metoprolol 5 MG/5 ML VIAL IVP SCH ×3 (08:13→20:32)
--- NOTE | 2016-09-09 09:32 | General Surgery Progress Note ---
Date of Encounter: 09/09/16 Time of Encounter: 09:20 - Assessment and Plan (1) Angiodysplasia of colon Current Visit: Yes Status: Acute POD #3 Extended right hemicolectomy. Lysis of adhesions times [address] Moy Maintain bowel rest while awaiting return of bowel function NG tube to low intermittent wall suction IV fluids at 50 mL per hour Supportive care and pain control- Ofirmev scheduled every 8 hours and continue as needed Dilaudid IV antibiotics- Cefepime IS every 1 hour while awake Repeat am labs Maintain Hart catheter for strict I and O's Daily dressing change- complete today PPI therapy daily (2) Acute and chronic respiratory failure ([id number]) Current Visit: Yes Status: Acute Suspect that low grade fevers are from poor respiratory effort and likely atelectasis IS every 1 hour while awake Aggressive pulmonary toilet Continue aerosol treatments as ordered Wean oxygen as tolerated Management per medicine service Qualifiers: Respiratory failure complication: hypoxia Qualified Code(s): J96.21 - Acute and chronic respiratory failure with hypoxia (3) Insulin dependent type 2 diabetes mellitus Current Visit: Yes Status: Chronic Management per medicine service (4) Acute kidney injury superimposed on CKD Current Visit: Yes Status: Acute Cr- 3.35>3.27 IV fluids Avoid nephrotoxic medications Continue Hart catheter for strict I's and O's Nephrology following- hemodialysis (5) DVT prophylaxis Current Visit: No Status: Acute Continue EPCDs to bilateral lower extremities for DVT prophylaxis Continue heparin 5,000 units SQ twice daily for DVT prophylaxis Subjective Patient reports: feels better, still having pain, pain is less, no flatus, no bowel movement, fever (Tmax 100.4), other (Patient more alert and appropriate this morning) Objective Vital Signs - Last 8 Hours Temp Pulse Resp BP Pulse Ox 09/09/16 08:00 100.4 F H 104 19 160/75 95 09/09/16 07:52 100.4 F H 104 19 160/75 95 09/09/16 07:36 16 94 09/09/16 04:49 99.6 F 111 16 129/64 93 09/09/16 04:00 104 09/09/16 03:58 17 93 Intake and Output 09/08/16 09/09/16 09/09/16 23:59 07:59 15:59 Intake Total 550 / 550 280 / 280 0 / 0 Output Total 120 / 120 0 / 0 Balance 550 / 550 160 / 160 0 / 0 Intake: IV Fluids 200 / 200 Ofirmev 1,000 mg/100 ml 1 100 / 100 ,000 mg In 100 ml @ 400 mls/hr IVPB Q8H [facility] Rx#: [id number] Maxipime 1,000 MG In 100 / 100 Dextrose 5% (Minibag+) 100 ML 100 ML @ 200 mls/ hr IVPB Q24H [facility] Rx#: [id number] Oral 0 / 0 Blood Product 350 / 350 280 / 280 Rbcs Leuko Poor As-1 0 / 0 280 / 280 Unit [id number] Rbcs Leuko Poor As-1 350 / 350 Unit [id number] Output: Gastric Tube Lavage 0 / 0 Amount Left Nare 0 / 0 Catheter 120 / 120 Other: Meal npo NPO Weight 90.1 kg Blood Glucose* 188 248 248 Patient Weight 09/09/16 23:59 Weight 90.1 kg - General physical appearance well developed, no distress - Eyes normal ocular movement - ENT normal mucosa, atraumatic, normocephalic - Neck Neck exam: trachea midline - Respiratory normal respiratory effort, other (diminished bibasilar bases) wheezing: bilateral - Cardiovascular Cardiovascular exam: Present: irregular rhythm (Atrial Fibrillation) - Abdomen Abdomen: Present: soft, tender (expected post-operative tenderness), wound (NG to LIWS with scant amount of bilious drainage noted (less than 100ml over the past 24 hours)) - Incision Incision: Present: clean and dry, intact - Genitourinary other (hart catheter to SD with clear, yellow urine (120ml since midnight)) - Neurologic CN 2-12 grossly intact - Musculoskeletal other (deconditioning noted) - Psychiatric oriented to person, oriented to place - Labs 09/09/16 04:20 09/09/16 04:20 Diabetes panel 09/09/16 Range/Units 04:20 Sodium 136 (136-145) mEq/L Potassium 4.9 H (3.5-4.5) mEq/L Chloride 100 (98-109) mEq/L Carbon Dioxide 20 (19-29) mEq/L BUN 74 H (7-20) mg/dL Creatinine 3.27 H (0.57-1.11) mg/dL Glucose 250 H (70-99) mg/dL Calcium 8.7 (8.6-10.8) mg/dL Calcium panel 09/09/16 Range/Units 04:20 Calcium 8.7 (8.6-10.8) mg/dL Pituitary panel 09/09/16 Range/Units 04:20 Sodium 136 (136-145) mEq/L Potassium 4.9 H (3.5-4.5) mEq/L Chloride 100 (98-109) mEq/L Carbon Dioxide 20 (19-29) mEq/L BUN 74 H (7-20) mg/dL Creatinine 3.27 H (0.57-1.11) mg/dL Glucose 250 H (70-99) mg/dL Calcium 8.7 (8.6-10.8) mg/dL Adrenal panel 09/09/16 Range/Units 04:20 Sodium 136 (136-145) mEq/L Potassium 4.9 H (3.5-4.5) mEq/L Chloride 100 (98-109) mEq/L Carbon Dioxide 20 (19-29) mEq/L BUN 74 H (7-20) mg/dL Creatinine 3.27 H (0.57-1.11) mg/dL Glucose 250 H (70-99) mg/dL Calcium 8.7 (8.6-10.8) mg/dL - VTE Documentation of Mechanical Device: Intermittent pneumatic compression device Consult Discharge Plan - Plan Referrals: Edith Peña CNP [Advanced Practice Nurse] - 09/26/16 10:15 am Kj Yost MD [Partnered Physician] - 09/13/16 1:00 pm Therese Garcia CNP [Primary Care Provider] - 09/15/16 9:00 am () Prudence Escobedo MD [Partnered Physician] - 10/11/16 3:50 pm () - Attending Attestation I examined this patient and my medical decision-making was reviewed with the SEMICONDUCTOR DIES LOADER/PA/Advanced Practice Nurse/Resident Physician. I agree with the documented findings, disposition and treatment plan as described except to the extent set forth below. The patient is seen and evaluated on rounds. I removed the above documentation plan. Overall her condition is slowly improving Sukumar Moy MD FACS
[2016-09-09] MEDS ORDERED: D10% in Water 500 ML IVC PRN (14:02)
[2016-09-09 14:28] LABS: Acinetobacter baumannii by PCR Not Detected (Not Detect); Candida albicans by PCR Not Detected (Not Detect); Candida glabrata by PCR Not Detected (Not Detect); Candida krusei by PCR Not Detected (Not Detect); Candida parapsilosis by PCR Not Detected (Not Detect); Candida tropicalis by PCR Not Detected (Not Detect); Escherichia coli by PCR Not Detected (Not Detect); Klebsiella oxytoca by PCR Not Detected (Not Detect); Klebsiella pneumoniae by PCR Not Detected (Not Detect); Pseudomonas aeruginosa by PCR Not Detected (Not Detect); Serratia marcescens by PCR Not Detected (Not Detect); Staphylococcus aureus by PCR Not Detected (Not Detect); Streptococcus agalactiae(B)PCR Not Detected (Not Detect); Streptococcus by PCR Not Detected (Not Detect); Streptococcus pneumoniae PCR Not Detected (Not Detect); Streptococcus pyogenes (A) PCR Not Detected (Not Detect); vanA/B Vancomycin-Resist Genes ***DETECTED*** (Not Detect)
[2016-09-09 14:29] LABS: Enterococcus by PCR ***DETECTED*** (Not Detect)
--- NOTE | 2016-09-09 14:33 | Nephrology Progress Note ---
Date of Encounter: 09/09/16 Time of Encounter: 09:45 - Assessment and Plan (1) CKD (chronic kidney disease) stage 4, GFR 15-29 ml/min Current Visit: Yes Status: Chronic Patient on day 3/3 of initial HD. Her Renal function has been continuing to worsen during her admission. Her GFR has remained around 16-17 for the last couple days, but that is while on HD. Her recorded I/Os show that the patient has been oliguric. Patient has been having some fluid output via dialysis. Continue to trend kidney function with daily chemistry Continue to avoid potential nephrotoxic agents Strict I/Os Patient received 3/3 days of HD as initiation, will reassess after holding HD for a couple days (2) COPD exacerbation Current Visit: Yes Status: Suspected Continued management/care with primary team (3) Anemia Current Visit: Yes Status: Chronic Patient had hemoglobin of 6.5 yesterday necessitating transfusion of pRBCs. She is now currently 3 days post-op from right hemicolectomy Continued management per primary team Qualifiers: Anemia type: iron deficiency Iron deficiency anemia type: unspecified iron deficiency Qualified Code(s): D50.9 - Iron deficiency anemia, unspecified (4) Hyponatremia Current Visit: Yes Status: Resolved Stable Continue to watch with daily chemistry Subjective Principal diagnosis: ELLE on CKD, COPD, PAF Interval history: Patient seen and examined in the dialysis unit this morning. She appears very lethargic and unable to participate in conversation. She appears to be comfortable. Objective - Vital Signs Vital signs: Vital Signs Temp Pulse Resp BP Pulse Ox 09/09/16 13:54 98.5 F 87 16 136/66 93 09/09/16 12:57 98.5 F 22 118/56 09/09/16 12:50 100/69 09/09/16 12:35 107/67 09/09/16 12:20 113/68 09/09/16 12:05 116/67 09/09/16 11:50 126/69 09/09/16 11:35 123/65 09/09/16 11:20 120/71 09/09/16 11:05 127/64 09/09/16 10:50 119/60 09/09/16 10:35 106/66 09/09/16 10:20 120/64 09/09/16 10:05 142/65 09/09/16 09:50 98.9 F 22 159/73 09/09/16 08:00 100.4 F H 104 19 160/75 95 09/09/16 07:52 100.4 F H 104 19 160/75 95 09/09/16 07:36 16 94 09/09/16 04:49 99.6 F 111 16 129/64 93 09/09/16 04:00 104 09/09/16 03:58 17 93 09/09/16 00:54 99.5 F 105 18 150/70 95 09/08/16 23:55 88 09/08/16 23:44 95 09/08/16 23:42 17 95 09/08/16 21:55 99.2 F 84 16 149/62 95 09/08/16 20:15 20 94 09/08/16 19:37 99.7 F H 111 18 141/76 95 09/08/16 19:30 111 09/08/16 18:55 97 12 149/68 94 09/08/16 16:55 109 09/08/16 16:43 110 12 152/70 09/08/16 16:33 18 98 09/08/16 15:37 98.1 F 109 19 119/80 95 Intake and Output 09/08/16 09/09/16 09/09/16 23:59 07:59 15:59 Intake Total 550 / 550 280 / 280 600 / 600 Output Total 120 / 120 2600 / 2600 Balance 550 / 550 160 / 160 -1999 / -1999 Intake: IV Fluids 200 / 200 Ofirmev 1,000 mg/100 ml 1 100 / 100 ,000 mg In 100 ml @ 400 mls/hr IVPB Q8H [facility] Rx#: [id number] Maxipime 1,000 MG In 100 / 100 Dextrose 5% (Minibag+) 100 ML 100 ML @ 200 mls/ hr IVPB Q24H [facility] Rx#: [id number] Oral 0 / 0 Blood Product 350 / 350 280 / 280 Rbcs Leuko Poor As-1 0 / 0 280 / 280 Unit [id number] Rbcs Leuko Poor As-1 350 / 350 Unit [id number] Intake, Rinseback and 600 / 600 Flushes Output: Gastric Tube Lavage 0 / 0 Amount Left Nare 0 / 0 Total Dialysis Output 2600 / 2600 Catheter 120 / 120 Other: Meal npo Lunch Percent of Meal Consumed 0% Weight 90.1 kg 90.1 kg Blood Glucose* 188 248 174 Hemodialysis Net Fluid 2000 Removed (mL) Patient Weight 09/09/16 23:59 Weight 90.1 kg - General Appearance Exam: General: Cooperative, pleasant, no acute distress HEENT: Normocephalic, atraumatic, neck supple, trachea midline, Conjunctiva pink , sclera anicteric Respiratory: No accessory muscle usage, clear to auscultation bilaterally, no wheezes/rhonchi/rales appreciated Cardiovascular: Regular rate and rhythm, no murmurs/rubs/gallops/clicks appreciated, point tenderness in anterior axillary line b/l in the 3rd intercostal space DIalysis access: Venous catheter in RIJ Extremities: Mild pedal edema appreciated, warm, lower extremity pulses palpable and symmetrical Neurological: No facial droop, no focal deficits Skin: Dry, intact, normal color - Lab 09/09/16 04:20 09/09/16 04:20 Most recent lab results Calcium 8.7 mg/dL (8.6-10.8) 09/09/16 04:20 Phosphorus 3.9 mg/dL (2.3-4.7) 09/01/16 06:33 Magnesium 2.5 mg/dL (1.6-2.6) 09/06/16 04:54 Urine Creatinine 40 mg/dL 08/25/16 13:19 Urine Sodium 30.0 mEq/L 08/25/16 13:19 Urine Total Protein 22 mg/dL (1-14) H 08/24/16 14:18 - VTE Documentation of Mechanical Device: Intermittent pneumatic compression device Consult Discharge Plan - Plan Referrals: Edith Peña CNP [Advanced Practice Nurse] - 09/26/16 10:15 am Kj Yost MD [Partnered Physician] - 09/13/16 1:00 pm Therese Garcia CNP [Primary Care Provider] - 09/15/16 9:00 am () Prudence Escobedo MD [Partnered Physician] - 10/11/16 3:50 pm ()
--- NOTE | 2016-09-09 14:36 | Event Note ---
Date of Encounter: 09/09/16 Time of Encounter: 14:30 Call from microbiology, patient's blood culture from 09/08 growing VRE Patient was on Cefepime while this was ongoing, she also has a new CVC placed 09/07 for HD. She is afebrile, but has leukocytosis Will start on Linezolid , and de-escalate with sensitivity, dose with hemodialysis
[2016-09-09] MEDS ORDERED: Clinimix 5%-20% SOLUTION 2,000 ML with MVI, adult with vitamin K 10 ML, Sodium Phosph... IVC SCH (17:00)
[2016-09-09] MEDS ORDERED: *HR* Metoprolol 5 MG/5 ML VIAL IVP ONE ×3 (17:26→21:46)
--- NOTE | 2016-09-09 17:40 | Electrocardiograph Report ---
[address] [address] Test Date: 2016-09-08 Pat Name: Dorothy Parks Department: 110 Room: 2N01 Gender: F Automated Weaver: SONIA : 1940 Requested By: Dick Zeng Order Number: [id number] Reading MD: Edith Yost Measurements Intervals [place] Rate: 98 P: 87 WI: 143 QRS: -7 QRSD: 87 T: 50 QT: 324 QTc: 380 Interpretive Statements SINUS RHYTHM WITH OCCASIONAL SUPRAVENTRICULAR PREMATURE COMPLEXES MINIMAL ST DEPRESSION Electronically Signed On 09-09-2016 17:38:41 EDT by Edith Yost
--- NOTE | 2016-09-09 17:40 | Electrocardiograph Report ---
[address] [address] Test Date: 2016-09-08 Pat Name: Dorothy Parks Department: 110 Room: 2N01 Gender: F Cloth Desizing Range Operator Chief: SONIA : 1940 Requested By: Salvador Pastrana Order Number: [id number] Reading MD: Edith Yost Measurements Intervals [place] Rate: 102 P: 79 MS: 143 QRS: -9 QRSD: 89 T: 50 QT: 326 QTc: 385 Interpretive Statements SINUS TACHYCARDIA WITH OCCASIONAL SUPRAVENTRICULAR PREMATURE COMPLEXES MODERATE ST DEPRESSION Electronically Signed On 09-09-2016 17:38:31 EDT by Edith Yost
[2016-09-09] MEDS: Cefepime HCl 1,000 MG in D5% in Water (Mini-Bag+) 100 ML IVPB SCH (18:00)
[2016-09-09] MEDS: 0.9 % Sodium Chloride 1,000 ML IVC SCH ×2 (19:58→20:35)
[2016-09-09] MEDS: Acetaminophen IV 1,000 MG/100 ML INFUS..BTL IVPB SCH ×2 (19:58→19:59)
[2016-09-09] MEDS: Insulin DETEMIR 100 UNIT/ML X5UNITS SQ SCH (20:32)
[2016-09-09] MEDS: Chloraseptic Spray 177 ML BOTTLE MM PRN (23:49)
[2016-09-10] MEDS: Insulin LISPRO 300 UNITS/3 ML VIAL SQ SCH ×2 (00:13→04:31)
[2016-09-10] MEDS: Ipratropium/Albuterol Neb 3 ML IH SCH ×6 (00:40→20:21)
[2016-09-10] MEDS: Acetaminophen IV 1,000 MG/100 ML INFUS..BTL IVPB SCH ×4 (00:46→16:25)
[2016-09-10] MEDS: *HR* LORazepam 2 MG/ML VIAL IVP PRN ×3 (00:55→23:55)
[2016-09-10] MEDS ORDERED: *HR* Metoprolol 5 MG/5 ML VIAL IVP ONE (02:50)
[2016-09-10 03:38] LABS: Basophils % 0.1 %; Eosinophils % 0.1 %; Hematocrit 26.3 % (35.3-44.9); Hemoglobin 8.8 g/dL (11.5-15.4); Immature Granulocytes % 1.1 % (0-4); Immature Platelets 3.5 % (1.1-6.1); Lymphocytes # 0.3 K/mcL (0.6-4.6); Lymphocytes % 2.4 %; Mean Corpuscular HGB Conc 33.5 g/dL (31.6-35.5); Mean Corpuscular Hemoglobin 28.7 pg (28.0-33.3); Mean Corpuscular Volume 85.7 fL (83.0-100.0); Mean Platelet Volume 9.8 fL (9.4-12.4); Monocytes # 0.4 K/mcL (0.0-1.3); Monocytes % 3.7 %; Neutrophils # 10.9 K/mcL (1.6-8.9); Nucleated Red Blood Cells 0.2 /100 WBC (0); Platelet Count 156 K/mcL (140-400); Red Blood Count 3.07 M/mcL (3.82-4.97); Red Cell Distribution Width 15.2 % (11.5-14.5); Segmented Neutrophils % 92.6 %
[2016-09-10 03:50] LABS: Phosphorous 4.9 mg/dL (2.3-4.7)
[2016-09-10 03:51] LABS: Calcium 8.7 mg/dL (8.6-10.8); Potassium 3.9 mEq/L (3.5-4.5)
--- NOTE | 2016-09-10 04:58 | Event Note ---
Date of Encounter: 09/10/16 Time of Encounter: 00:00 Pt developped tachycardia, monitor/EKG shows A Flutter with HR 160. Pt was placed on cardizem drip, however, HR sustained at 160 although maximum drip rate and intermittent metoprolol iv at 2.5-5mg. Called Cardio consult Dr Mohr for further management, was instructed to try another bolus of cardizem. Cardizem 15mg iv once given. HR get down to 100s, will continue Cardizem drip. Cardio see pt in AM. Pt has no chest pain or SOB during tachycardia.
[2016-09-10] MEDS: *HR* Metoprolol 5 MG/5 ML VIAL IVP SCH (06:08)
[2016-09-10] MEDS: 0.9 % Sodium Chloride 1,000 ML IVC SCH (06:10)
[2016-09-10] MEDS: *HR* HYDROmorphone (PF) 1 MG/ML SYRINGE IVP PRN ×3 (06:29→21:03)
[2016-09-10] MEDS: *HR* Heparin 5,000 UNIT/ML VIAL SQ SCH ×2 (06:29→17:41)
--- NOTE | 2016-09-10 07:35 | Internal Med Progress Note ---
Date of Encounter: 09/10/16 Time of Encounter: 07:31 - Assessment and plan (1) Bacteremia due to Enterococcus Current Visit: Yes Status: Acute Assessment and plan: Blood culture drawn 09/08, resulted 09/09 with VRE 05/08 set Started on Zyvox 09/09., Day 1 Continue Zyvox Leukocytosis is improving and patient is clinically improving Will repeat blood cultures 09/11 Patient has a Right IJ CVC placed 09/07 Will keep for now, if repeat blood cultures show persistent bacteremia will discontinue line and obtain repeat ECHO Patient is afebrile No stigmata of endocarditis (2) Acute kidney injury superimposed on CKD Current Visit: Yes Status: Acute Assessment and plan: s/p Right CVC and HD 09/07, 09/08, 09/09 Continue to hold lasix Continue IVF K improved Nephrology following, appreciate input (3) GIB (gastrointestinal bleeding) Current Visit: Yes Status: Acute Assessment and plan: Secondary to colonic angiodysplasia in the setting of anticoagulation s/p hemicolectomy POD 4, Surgery following No flatus or BM yet No recurrent bleeds Acute blood loss from surgery, improved after 2 units PRBCS Started on TPN for nutrition Monitor Lipid penal q48H Start insulin drip Qualifiers: GI bleed type/associated pathology: unspecified gastrointestinal hemorrhage type Qualified Code(s): K92.2 - Gastrointestinal hemorrhage, unspecified (4) Acute exacerbation of chronic obstructive airways disease Current Visit: Yes Status: Acute Assessment and plan: Patient with chronic respiratory failure and possible retainer Needs BiPAP at night Patient is steroid dependent Currently NPO Taper steroids Continue duonebs and O2 supplement (5) CKD (chronic kidney disease) stage 4, GFR 15-29 ml/min Current Visit: Yes Status: Chronic Assessment and plan: As in ELLE on CKD (6) Hypertension Current Visit: Yes Status: Chronic Assessment and plan: Controlled, Continue current meds Qualifiers: Hypertension type: essential hypertension Qualified Code(s): I10 - Essential (primary) hypertension (7) HCAP (healthcare-associated pneumonia) Current Visit: Yes Status: Resolved Assessment and plan: CXR shows minimal increase infiltrate, Completed 10 days of cefepime CXR 09/09 without infiltrates (8) Atrial fibrillation with RVR Current Visit: Yes Status: Acute Assessment and plan: Patient developed Afib with RVR in the late afternoon yesterday, responded to Lopressor push However, she developed Refractory Aflutter overnight, requring cardizem drip, cardiology was consulted HR now controlled on current dose of cardizem, continue same Patient is NPO Hx of GI bleed, not on anticoagulation (9) Acute and chronic respiratory failure ([id number]) Current Visit: Yes Status: Acute Assessment and plan: Secondary to COPDE/CHFE/Afib Continue O2 supplement BiPAP at night Qualifiers: Respiratory failure complication: hypoxia Qualified Code(s): J96.21 - Acute and chronic respiratory failure with hypoxia (10) CHF (congestive heart failure) Current Visit: Yes Status: Chronic Assessment and plan: Improving. Continue beta jean-pierre and supportive care. Hold Lasix. Qualifiers: Congestive heart failure type: diastolic Congestive heart failure chronicity: chronic Qualified Code(s): I50.32 - Chronic diastolic (congestive ) heart failure (11) Leukocytosis Current Visit: Yes Status: Acute Assessment and plan: Secondary to bactremia Improving continue to monitor Qualifiers: Leukocytosis type: unspecified Qualified Code(s): D72.829 - Elevated white blood cell count, unspecified (12) Diabetes mellitus Current Visit: Yes Status: Chronic Assessment and plan: FS have been controlled until the past Hyperglycemia possibly secondary to Starting TPN Start insulin drip and monitor FS q1h till stable, then q4h afterwards Qualifiers: Diabetes mellitus type: type 2 Diabetes mellitus complication status: with kidney complications Diabetes mellitus complication detail: with chronic kidney disease Diabetes mellitus termite renewal inspector insulin use: unspecified termite renewal inspector insulin use status Chronic kidney disease stage: stage 4 (severe) Qualified Code(s): E11.22 - Type 2 diabetes mellitus with diabetic chronic kidney disease ; N18.4 - Chronic kidney disease, stage 4 (severe) - Subjective Interval history: 76 Y/O F Seen and evaluated at bedside with family Complicated hospital stay Patient with admission for COPDE, Afib with RVR, [facility] say complicated by LGIB s/p colonoscopy with angiodysplasia which was cauterized, recurrent bleed s/p R hemicolectomy She is postop day 4 status post right hemicolectomy. Post-op complicated by ELLE on CKD with oliguria, patient had CVC placed 5/3 and started on HD 5/3 Total Urine output /3-250cc Total Gastric output in past 24 hrs NG-250cc Patient still oliguric Leukocytosis is improving She developed Afib with RVR and refractory Aflutter 09/09, now on cardizem drip She also developed hyperglycemia after 1900 09/09 possibly from TPN, started insulin drip this a.m Blood culture from 09/08 with VRE, started on Zyvox Taper steroids Taper dilaudid Surgery, Nephrology input appreciated - Constitutional Vitals: Temp Pulse Resp BP Pulse Ox 100.0 F H 83 25 120/65 94 09/10/16 03:24 09/10/16 06:00 09/10/16 05:05 09/10/16 06:00 09/10/16 05:05 General appearance: Present: A&O X 3, pleasant, obese, answers questions appropriately Exam: VSS, O2 sat 89-92% on 7L O2 by face mask., HR WNL She is very much more awake today and able to participate in a conversation Neuro: AAOX3, moves all limbs spontaneously, no focal deficits HEENT: Right IJ CVC, clean dressing, dry oral mucosa, no cyanosis, ELOISE Chest: Anterior chest wall ecchymosis at the site of a loop recorder on the left chest wall Chest is Clear to auscultation bilaterally, no wheezes, no rhonchi, no stridor. Heart: S1, S2, RRR, no m/g/r Abdomen: Soft, not tender, no palpably enlarged organs. Midline wound dressing clean and dry. No bowel sounds heard in all quadrants Extremities: No pedal edema, pulses equal bilaterally Internal Medicine: Result - Labs CBC & Chem 7: 09/10/16 03:10 09/10/16 03:10 Labs: Short CBC 09/10/16 Range/Units 03:10 WBC 11.8 H (4.3-11.1) K/mcL Hgb 8.8 L (11.5-15.4) g/dL Hct 26.3 L (35.3-44.9) % Plt Count 156 (140-400) K/mcL Neutrophils # 10.9 H (1.6-8.9) K/mcL BMP 09/10/16 03:10 Sodium 134 L Potassium 3.9 D Chloride 98 Carbon Dioxide 24 BUN 53 H D Creatinine 3.12 H Glucose 427 H Calcium 8.7 - ABG Interpretation ABG results: PT/INR, D-dimer PT 10.3 Seconds (9.4-12.1) 08/25/16 16:51 - Impressions Impressions Chest X-Ray 09/09/16 14:00 IMPRESSION: Line placement without pneumothorax. D/ / Shan Perez MD / Shan Perez MD Interpreting Provider: Shan Perez MD - VTE Documentation of Mechanical Device: Intermittent pneumatic compression device Consult Discharge Plan - Plan Referrals: Edith Peña CNP [Advanced Practice Nurse] - 09/26/16 10:15 am Kj Yost MD [Partnered Physician] - 09/13/16 1:00 pm Jose,Therese Mccormick CNP [Primary Care Provider] - 09/15/16 9:00 am () Prudence Escobedo MD [Partnered Physician] - 10/11/16 3:50 pm ()
--- NOTE | 2016-09-10 07:56 | General Surgery Progress Note ---
Date of Encounter: 09/10/16 Time of Encounter: 07:20 - Assessment and Plan (1) Angiodysplasia of colon Current Visit: Yes Status: Acute POD #3 Extended right hemicolectomy. Lysis of adhesions times [address] Moy Maintain bowel rest while awaiting return of bowel function NG tube to low intermittent wall suction IV fluids at 50 mL per hour Supportive care and pain control- Ofirmev scheduled every 8 hours and continue as needed Dilaudid IV antibiotics- Cefepime IS every 1 hour while awake Repeat am labs Maintain Watkins catheter for strict I and O's Daily dressing change- complete today PPI therapy daily 09/10/2016. The patient is seen and evaluated. Her blood sugars are over 400. We will need to treat her diabetes much more aggressively. I will discuss this with the hospitalist physicians. She still has no bowel sounds we will maintain nasogastric tube drainage. (2) Acute and chronic respiratory failure ([id number]) Current Visit: Yes Status: Acute Suspect that low grade fevers are from poor respiratory effort and likely atelectasis IS every 1 hour while awake Aggressive pulmonary toilet Continue aerosol treatments as ordered Wean oxygen as tolerated Management per medicine service Qualifiers: Qualified Code(s): J96.21 - Acute and chronic respiratory failure with hypoxia (3) Insulin dependent type 2 diabetes mellitus Current Visit: Yes Status: Chronic Management per medicine service 09/10/2016. Blood sugars are out of control and over 400. I will discuss this with our hospitalist service for more aggressive management. (4) Acute kidney injury superimposed on CKD Current Visit: Yes Status: Acute Cr- 3.35>3.27 IV fluids Avoid nephrotoxic medications Continue Watkins catheter for strict I's and O's Nephrology following- hemodialysis (5) DVT prophylaxis Current Visit: No Status: Acute Continue EPCDs to bilateral lower extremities for DVT prophylaxis Continue heparin 5,000 units SQ twice daily for DVT prophylaxis Subjective Narrative: The patient is not doing well today she is not awake or alert she has no bowel sounds. Overnight she had significant tachycardia with rapid ventricular response. I was very disappointed to see that she had a lapse in her insulin coverage and her blood sugars are in the 400s. On physical examination her lungs have rhonchi in both bases. There are no bowel sounds. Her incision is clean and dry. We will need to make a significant change in her level of treatment for her blood sugar and diabetes. We will need to be much more aggressive. Her target blood sugars are under 150. Objective Vital Signs - Last 8 Hours Temp Pulse Resp BP Pulse Ox 09/10/16 06:00 83 120/65 09/10/16 05:30 86 107/69 09/10/16 05:05 25 104/65 94 09/10/16 05:00 87 116/61 09/10/16 04:30 110 94/64 09/10/16 04:00 162 121/76 09/10/16 03:50 162 115/76 09/10/16 03:35 162 110/74 09/10/16 03:24 100.0 F H 161 26 121/78 93 09/10/16 03:20 160 125/80 09/10/16 03:15 161 119/72 09/10/16 03:10 162 121/78 09/10/16 02:50 161 118/72 09/10/16 02:45 163 103/63 09/10/16 02:40 161 09/10/16 02:30 162 108/69 09/10/16 01:30 159 101/74 09/10/16 01:15 158 108/75 09/10/16 01:00 157 119/77 09/10/16 00:55 154 122/78 09/10/16 00:50 154 123/91 09/10/16 00:45 154 114/76 09/10/16 00:40 24 106/73 94 09/10/16 00:30 153 109/64 09/10/16 00:15 154 104/68 09/10/16 00:00 153 100/72 09/09/16 23:55 154 117/62 Intake and Output 09/09/16 09/09/16 09/10/16 15:59 23:59 07:59 Intake Total 600 / 600 400 / 400 382.4 / 382.4 Output Total 2680 / 2680 280 / 280 Balance -2079 / -0 120 / 120 382.4 / 382.4 Intake: IV Fluids 400 / 400 382.4 / 382.4 Cardizem 125 MG In 32.4 / 32.4 Dextrose 5% 100 ML @ 5 MG /HR 5 mls/hr IVC .Q24H [facility] Rx#:[id number] Maxipime 1,000 MG In 100 / 100 Dextrose 5% (Minibag+) 100 ML 100 ML @ 200 mls/ hr IVPB Q24H [facility] Rx#: [id number] Intralipid 20% 250 ML @ 250 / 250 21 mls/hr IVPB DAILY@1700 [facility] Rx#:[id number] Zyvox Premix 600mg/300mL 300 / 300 600 mg In 300 ml @ 150 mls/hr IVPB Q12HR [facility] Rx# :[id number] Oral 0 / 0 Intake, Rinseback and 600 / 600 Flushes Output: Gastric Tube Lavage 80 / 80 Amount Left Nare 80 / 80 Total Dialysis Output 2600 / 2600 Catheter 0 / 0 280 / 280 Other: Meal Lunch Percent of Meal Consumed 0% Weight 90.1 kg 90.7 kg Blood Glucose* 174 438 373 Hemodialysis Net Fluid 2000 Removed (mL) Patient Weight 09/10/16 23:59 Weight 90.7 kg - General physical appearance chronically ill, obese, other (Unresponsive to my examination) - Respiratory other (Rhonchi both lung schwarz she has tachypnea and is on high flow oxygen) - Cardiovascular Cardiovascular exam: Present: irregular rhythm (Atrial fibrillation with rapid ventricular response and heart rate at time of examination 92) - Abdomen Abdomen: Present: soft, non tender (No bowel sounds) - Incision Incision: Present: clean and dry - Neurologic disoriented (Patient does not respond to my commands) - Psychiatric other (Unresponsive) - Labs 09/10/16 03:10 09/10/16 03:10 Diabetes panel 09/10/16 09/10/16 Range/Units 03:10 03:10 Sodium 134 L (136-145) mEq/L Potassium 3.9 D (3.5-4.5) mEq/L Chloride 98 (98-109) mEq/L Carbon Dioxide 24 (19-29) mEq/L BUN 53 H D (7-20) mg/dL Creatinine 3.12 H (0.57-1.11) mg/dL Glucose 427 H (70-99) mg/dL Calcium 8.7 (8.6-10.8) mg/dL Triglycerides 203 H (< 150) mg/dL Calcium panel 09/10/16 09/10/16 Range/Units 03:10 03:10 Calcium 8.7 (8.6-10.8) mg/dL Phosphorus 4.9 H (2.3-4.7) mg/dL Pituitary panel 09/10/16 Range/Units 03:10 Sodium 134 L (136-145) mEq/L Potassium 3.9 D (3.5-4.5) mEq/L Chloride 98 (98-109) mEq/L Carbon Dioxide 24 (19-29) mEq/L BUN 53 H D (7-20) mg/dL Creatinine 3.12 H (0.57-1.11) mg/dL Glucose 427 H (70-99) mg/dL Calcium 8.7 (8.6-10.8) mg/dL Adrenal panel 09/10/16 Range/Units 03:10 Sodium 134 L (136-145) mEq/L Potassium 3.9 D (3.5-4.5) mEq/L Chloride 98 (98-109) mEq/L Carbon Dioxide 24 (19-29) mEq/L BUN 53 H D (7-20) mg/dL Creatinine 3.12 H (0.57-1.11) mg/dL Glucose 427 H (70-99) mg/dL Calcium 8.7 (8.6-10.8) mg/dL - VTE Documentation of Mechanical Device: Intermittent pneumatic compression device Consult Discharge Plan - Plan Referrals: Edith Peña CNP [Advanced Practice Nurse] - 09/26/16 10:15 am Kj Yost MD [Partnered Physician] - 09/13/16 1:00 pm Jose,Therese Mccormick CNP [Primary Care Provider] - 09/15/16 9:00 am () Prudence Escobedo MD [Partnered Physician] - 10/11/16 3:50 pm ()
[2016-09-10] MEDS: Insulin Human Regular 100 UNIT in 0.9 % Sodium Chloride 100 ML IVC SCH ×2 (08:15→19:57)
[2016-09-10] MEDS: Pantoprazole 40 MG VIAL IVP SCH (08:19)
[2016-09-10] MEDS: MethylPREDNISolone 40 MG/ML VIAL IVP SCH (08:19)
[2016-09-10] MEDS ORDERED: *HR* Metoprolol 5 MG/5 ML VIAL IVP PRN (09:49)
--- NOTE | 2016-09-10 12:59 | Nephrology Progress Note ---
Date of Encounter: 09/10/16 Time of Encounter: 12:45 - Assessment and Plan (1) Acute kidney injury superimposed on CKD Current Visit: Yes Status: Acute SCr stable at 3.12. GFr 15 after 3 consecutive HD session. Will hold off HD today and monitor for signs of renal recovery HD as needed UOP documented at 400cc in the past 24hrs Continue to avoid nephrotoxins if possible (2) Anemia Current Visit: Yes Status: Chronic Qualifiers: Anemia type: iron deficiency Iron deficiency anemia type: unspecified iron deficiency Qualified Code(s): D50.9 - Iron deficiency anemia, unspecified (3) CKD (chronic kidney disease) stage 4, GFR 15-29 ml/min Current Visit: Yes Status: Chronic (4) Hyperkalemia Current Visit: No Status: Acute Resolved after 3 consecutive HD sessions Subjective Principal diagnosis: ELLE on CKD, COPD, PAF Interval history: Interim noted, pt seen and examined.She is now on cardizem gtt, insulin gtt and TPN. Family at bedside. Objective - Vital Signs Vital signs: Vital Signs Temp Pulse Resp BP Pulse Ox 09/10/16 09:00 86 16 101/70 91 09/10/16 07:46 18 120/65 91 09/10/16 06:00 83 120/65 09/10/16 05:30 86 107/69 09/10/16 05:05 25 104/65 94 09/10/16 05:00 87 116/61 09/10/16 04:30 110 94/64 09/10/16 04:00 162 121/76 09/10/16 03:50 162 115/76 09/10/16 03:35 162 110/74 09/10/16 03:24 100.0 F H 161 26 121/78 93 09/10/16 03:20 160 125/80 09/10/16 03:15 161 119/72 09/10/16 03:10 162 121/78 09/10/16 02:50 161 118/72 09/10/16 02:45 163 103/63 09/10/16 02:40 161 09/10/16 02:30 162 108/69 09/10/16 01:30 159 101/74 09/10/16 01:15 158 108/75 09/10/16 01:00 157 119/77 09/10/16 00:55 154 122/78 09/10/16 00:50 154 123/91 09/10/16 00:45 154 114/76 09/10/16 00:40 24 106/73 94 09/10/16 00:30 153 109/64 09/10/16 00:15 154 104/68 09/10/16 00:00 153 100/72 09/09/16 23:55 154 117/62 09/09/16 23:52 99.2 F 151 20 110/68 93 09/09/16 23:50 151 104/66 09/09/16 20:55 24 91 09/09/16 19:56 98.8 F 97 18 154/65 91 09/09/16 15:40 98.6 F 96 18 131/71 94 09/09/16 15:38 16 88 09/09/16 15:30 98.6 F 96 18 131/71 94 09/09/16 13:54 98.5 F 87 16 136/66 93 Intake and Output 09/09/16 09/10/16 09/10/16 23:59 07:59 15:59 Intake Total 400 / 400 382.4 / 382.4 433.2 / 433.2 Output Total 280 / 280 Balance 120 / 120 382.4 / 382.4 433.2 / 433.2 Intake: IV Fluids 400 / 400 382.4 / 382.4 433.2 / 433.2 Cardizem 125 MG In 32.4 / 32.4 92.6 / 92.6 Dextrose 5% 100 ML @ 5 MG /HR 5 mls/hr IVC .Q24H [facility] Rx#:[id number] HumuLIN R 100 UNIT In 0. 40.6 / 40.6 9 % Sodium Chloride 100 ML @ 5 UNIT/HR 5.05 mls/ hr IVC CONT [facility] Rx#: [id number] Maxipime 1,000 MG In 100 / 100 Dextrose 5% (Minibag+) 100 ML 100 ML @ 200 mls/ hr IVPB Q24H [facility] Rx#: [id number] Intralipid 20% 250 ML @ 250 / 250 21 mls/hr IVPB DAILY@1700 [facility] Rx#:[id number] Zyvox Premix 600mg/300mL 300 / 300 300 / 300 600 mg In 300 ml @ 150 mls/hr IVPB Q12HR [facility] Rx# :[id number] Oral 0 / 0 Output: Catheter 280 / 280 Other: Meal Breakfast Percent of Meal Consumed 0% Weight 90.7 kg Blood Glucose* 438 373 225 Patient Weight 09/10/16 23:59 Weight 90.7 kg - General Appearance General appearance: Present: chronically ill (and acutely ill) - Lab 09/11/16 04:10 09/11/16 04:10 Most recent lab results Calcium 8.7 mg/dL (8.6-10.8) 09/10/16 03:10 Phosphorus 4.9 mg/dL (2.3-4.7) H 09/10/16 03:10 Magnesium 2.0 mg/dL (1.6-2.6) 09/10/16 03:10 Urine Creatinine 40 mg/dL 08/25/16 13:19 Urine Sodium 30.0 mEq/L 08/25/16 13:19 Urine Total Protein 22 mg/dL (1-14) H 08/24/16 14:18 - VTE Documentation of Mechanical Device: Intermittent pneumatic compression device Consult Discharge Plan - Plan Referrals: Edith Peña CNP [Advanced Practice Nurse] - 09/26/16 10:15 am Kj Yost MD [Partnered Physician] - 09/13/16 1:00 pm Therese Garcia CNP [Primary Care Provider] - 09/15/16 9:00 am () Prudence Escobedo MD [Partnered Physician] - 10/11/16 3:50 pm ()
[2016-09-10] MEDS ORDERED: Clinimix 5%-20% SOLUTION 2,000 ML with MVI, adult with vitamin K 10 ML, Sodium Chlori... IVC SCH (17:00)
--- NOTE | 2016-09-10 17:22 | Cardiology Progress Note ---
Date of Encounter: 09/10/16 Time of Encounter: 14:30 Assessment and Plan (1) Atrial fibrillation with RVR Current Visit: Yes Status: Acute AFIB RVR overnight probably secondary to post-operative state, NPO status and now with bacteremia. She is rate controlled on cardizem drip. Recommend continuing cardizemm gtt since patient is NPO and not taking oral medications yet. Otherwise, we are unable to anticoagulate her given recent events and surgery. She recently had CVA in May. The family is aware of her high risk of having a stroke since we are unable to anticoagulate her. Her Hgb has been stable. Ideally, would recommend aspirin when surgical team feels it is safe to introduce. Discussion w patient/family: The assessment and plan as outlined above was discussed with the patient and/or family members who expressed understanding and agreement. All questions were answered. Thank you for involving us in the care of your patient. Please call with any questions. Subjective Principal diagnosis: ELLE on CKD, COPD, PAF Interval history: Ms. Parks presented initially on 08/22 for SOB and was treated for PNA. She was found to have newly discovered AFIB. She does have a recent history of ischemic CVA worked up at [facility] in May 2016. She had subsequently converted to NSR. Anticoagulation was being considered but due to concern for GIB, this was held. Cardiology had signed off. In the interim, she had developed a LGIB necessitating colonoscopy and later hemocolectomy. This has been complicated by ELLE on CKD, leukocytosis and bacteremia with enterococcus. She subsequently developed AF RVR overnight. At the bedside, HR's are 70-80's while in AF. The patient is resting but with some abdominal discomfort but no acute distress. Family is at the bedside. Objective Vital Signs, Last 4 Hours Pulse Resp BP Pulse Ox 09/10/16 15:32 18 108/54 91 09/10/16 15:00 82 16 108/54 96 General: Other (mild abdominal pain, no acute distress, able to converse) HEENT: Atraumatic, Other (mucus membranes dry (NPO)) Neck: Other (JVP difficult to evaluate (CVP line in place)) Cardiac: Other (irregularly irregular) Lungs: Other (breath sounds appear clear anteriorly) Neuro: Alert and responsive, No focal deficits noted Abdomen: Soft, Other (bowel sounds poorly audible) Extremities: Other (mild bilateral LE edema) Results 09/10/16 03:10 09/10/16 03:10 Lab Results 09/10/16 09/10/16 09/10/16 03:10 03:10 03:10 WBC 11.8 H Hgb 8.8 L Hct 26.3 L Plt Count 156 Sodium 134 L Potassium 3.9 D Chloride 98 Carbon Dioxide 24 BUN 53 H D Creatinine 3.12 H Glucose 427 H Calcium 8.7 Magnesium 2.0 - Imaging and Cardiology Chest Xray: report reviewed Echo: report reviewed - EKG Interpretation EKG results cardiology: other (Telemetry demonstrates AFIB) - VTE Documentation of Mechanical Device: Intermittent pneumatic compression device Consult Discharge Plan - Plan Referrals: Edith Peña CNP [Advanced Practice Nurse] - 09/26/16 10:15 am Kj Yost MD [Partnered Physician] - 09/13/16 1:00 pm Jose,Therese Mccormick CNP [Primary Care Provider] - 09/15/16 9:00 am () Prudence Escobedo MD [Partnered Physician] - 10/11/16 3:50 pm ()
[2016-09-10] MEDS: Chloraseptic Spray 177 ML BOTTLE MM PRN (23:39)
[2016-09-11] MEDS: Ipratropium/Albuterol Neb 3 ML IH SCH ×6 (00:26→20:31)
[2016-09-11] MEDS: Acetaminophen IV 1,000 MG/100 ML INFUS..BTL IVPB SCH ×3 (00:33→17:03)
[2016-09-11] MEDS: Insulin Human Regular 100 UNIT in 0.9 % Sodium Chloride 100 ML IVC SCH ×2 (01:35→12:52)
[2016-09-11] MEDS: *HR* HYDROmorphone (PF) 1 MG/ML SYRINGE IVP PRN ×4 (03:10→19:45)
[2016-09-11 04:42] LABS: Hematocrit 23.9 % (35.3-44.9); Immature Granulocytes % 0.9 % (0-4); Lymphocytes # 0.3 K/mcL (0.6-4.6); Mean Corpuscular HGB Conc 33.5 g/dL (31.6-35.5); Mean Corpuscular Hemoglobin 28.6 pg (28.0-33.3); Mean Corpuscular Volume 85.4 fL (83.0-100.0); Mean Platelet Volume 9.6 fL (9.4-12.4); Monocytes # 0.4 K/mcL (0.0-1.3); Monocytes % 4.1 %; Neutrophils # 8.4 K/mcL (1.6-8.9); Nucleated Red Blood Cells 0.3 /100 WBC (0); Platelet Count 108 K/mcL (140-400); Red Cell Distribution Width 14.6 % (11.5-14.5)
[2016-09-11 04:58] LABS: Calcium 8.5 mg/dL (8.6-10.8); Phosphorous 3.8 mg/dL (2.3-4.7); Potassium 3.2 mEq/L (3.5-4.5)
[2016-09-11] MEDS: *HR* Heparin 5,000 UNIT/ML VIAL SQ SCH ×2 (05:38→17:03)
[2016-09-11] MEDS: Pantoprazole 40 MG VIAL IVP SCH (07:58)
[2016-09-11] MEDS: MethylPREDNISolone 40 MG/ML VIAL IVP SCH (07:58)
--- NOTE | 2016-09-11 10:25 | Internal Med Progress Note ---
Date of Encounter: 09/11/16 Time of Encounter: 09:40 - Assessment and plan (1) Bacteremia due to Enterococcus Current Visit: Yes Status: Acute Assessment and plan: Blood culture drawn 09/08, resulted 09/09 with VRE 05/08 set Started on Zyvox 09/09., Day 2 Continue Zyvox Leukocytosis resolved and patient is clinically improving Blood cultures X2 drawn this a.m, will follow Patient has a Right IJ CVC placed 09/07 Will keep for now, if repeat blood cultures show persistent bacteremia will discontinue line and obtain repeat ECHO Patient is afebrile No stigmata of endocarditis (2) Acute kidney injury superimposed on CKD Current Visit: Yes Status: Acute Assessment and plan: s/p Right CVC and HD 09/07, 09/08, 09/09 Continue to hold lasix Continue IVF K slightly low, will observe Nephrology following, appreciate input (3) GIB (gastrointestinal bleeding) Current Visit: Yes Status: Acute Assessment and plan: Secondary to colonic angiodysplasia in the setting of anticoagulation s/p hemicolectomy POD 5, Surgery following No flatus or BM yet No recurrent bleeds Acute blood loss from surgery, improved after 2 units PRBCS Continue TPN for nutrition Monitor Lipid penal q48H Continue follow up Qualifiers: GI bleed type/associated pathology: unspecified gastrointestinal hemorrhage type Qualified Code(s): K92.2 - Gastrointestinal hemorrhage, unspecified (4) Acute exacerbation of chronic obstructive airways disease Current Visit: Yes Status: Acute Assessment and plan: Patient with chronic respiratory failure and possible retainer Needs BiPAP at night Patient is steroid dependent Currently NPO Taper steroids Continue duonebs and O2 supplement (5) CKD (chronic kidney disease) stage 4, GFR 15-29 ml/min Current Visit: Yes Status: Chronic Assessment and plan: As in ELLE on CKD (6) Hypertension Current Visit: Yes Status: Chronic Assessment and plan: Controlled, Continue current meds Qualifiers: Hypertension type: essential hypertension Qualified Code(s): I10 - Essential (primary) hypertension (7) HCAP (healthcare-associated pneumonia) Current Visit: Yes Status: Resolved Assessment and plan: CXR shows minimal increase infiltrate, Completed 10 days of cefepime CXR 09/09 without infiltrates (8) Atrial fibrillation with RVR Current Visit: Yes Status: Acute Assessment and plan: Patient developed Afib with RVR in the late afternoon yesterday, responded to Lopressor push However, she developed Refractory Aflutter overnight, requring cardizem drip, cardiology was consulted HR now controlled on cardizem drip, discontinued Start lopressor IV prn HR >100 Patient is NPO Hx of GI bleed, not on anticoagulation (9) Acute and chronic respiratory failure ([id number]) Current Visit: Yes Status: Acute Assessment and plan: Secondary to COPDE/CHFE/Afib Continue O2 supplement BiPAP at night Qualifiers: Respiratory failure complication: hypoxia Qualified Code(s): J96.21 - Acute and chronic respiratory failure with hypoxia (10) CHF (congestive heart failure) Current Visit: Yes Status: Chronic Assessment and plan: Improving. Continue beta jean-pierre and supportive care. Hold Lasix. Qualifiers: Congestive heart failure type: diastolic Congestive heart failure chronicity: chronic Qualified Code(s): I50.32 - Chronic diastolic (congestive ) heart failure (11) Leukocytosis Current Visit: Yes Status: Acute Assessment and plan: Secondary to bactremia Resolved Qualifiers: Leukocytosis type: unspecified Qualified Code(s): D72.829 - Elevated white blood cell count, unspecified (12) Diabetes mellitus Current Visit: Yes Status: Chronic Assessment and plan: FS have been controlled until the past Hyperglycemia possibly secondary to Starting TPN Start insulin drip and monitor FS q1h till stable, then q4h afterwards Qualifiers: Diabetes mellitus type: type 2 Diabetes mellitus complication status: with kidney complications Diabetes mellitus complication detail: with chronic kidney disease Diabetes mellitus terminologist insulin use: unspecified half-way insulin use status Chronic kidney disease stage: stage 4 (severe) Qualified Code(s): E11.22 - Type 2 diabetes mellitus with diabetic chronic kidney disease ; N18.4 - Chronic kidney disease, stage 4 (severe) - Subjective Interval history: 76 Y/O F Seen and evaluated at bedside with family Complicated hospital stay Patient with admission for COPDE, Afib with RVR, HCAP Hospital say complicated by LGIB s/p colonoscopy with angiodysplasia which was cauterized, recurrent bleed s/p R hemicolectomy She is postop day 5 status post right hemicolectomy. Post-op complicated by ELLE on CKD with oliguria, patient had CVC placed 09/07 and started on HD 09/07 Total Urine output 09/10-250cc Total Gastric output in past 24 hrs NG-250cc Patient still oliguric Leukocytosis has resolved 09/11 She developed Afib with RVR and refractory Aflutter 09/09, was on cardizem drip, she has been off cardizem drip all night because her HR has been stable She also developed hyperglycemia after 09/09 possibly from TPN, started insulin drip 09/10. FS has been stable Blood culture from 09/08 with VRE, started on Zyvox, blood culture drawn today, will follow Taper steroids Taper dilaudid Surgery, Nephrology input appreciated - Constitutional Vitals: Temp Pulse Resp BP Pulse Ox 98.1 F 68 18 118/52 95 09/11/16 08:00 09/11/16 08:00 09/11/16 08:28 09/11/16 08:00 09/11/16 08:28 General appearance: Present: A&O X 3, pleasant, obese, answers questions appropriately Exam: VSS, O2 sat 89-92% on 7L O2 by face mask., HR WNL She is very much more awake today and able to participate in a conversation Neuro: AAOX3, moves all limbs spontaneously, no focal deficits HEENT: Right IJ CVC, clean dressing, dry oral mucosa, no cyanosis, ELOISE Chest: Anterior chest wall ecchymosis at the site of a loop recorder on the left chest wall Chest is Clear to auscultation bilaterally, no wheezes, no rhonchi, no stridor. Heart: S1, S2, RRR, no m/g/r Abdomen: Soft, not tender, no palpably enlarged organs. Midline wound dressing clean and dry. No bowel sounds heard in all quadrants Extremities: No pedal edema, pulses equal bilaterally Internal Medicine: Result - Labs CBC & Chem 7: 09/11/16 04:10 09/11/16 04:10 Labs: Short CBC 09/11/16 Range/Units 04:10 WBC 9.1 (4.3-11.1) K/mcL Hgb 8.0 L (11.5-15.4) g/dL Hct 23.9 L (35.3-44.9) % Plt Count 108 L (140-400) K/mcL Neutrophils # 8.4 (1.6-8.9) K/mcL BMP 09/11/16 04:10 Sodium 131 L Potassium 3.2 L Chloride 98 Carbon Dioxide 25 BUN 67 H D Creatinine 3.57 H Glucose 116 H Calcium 8.5 L - ABG Interpretation ABG results: PT/INR, D-dimer PT 10.3 Seconds (9.4-12.1) 08/25/16 16:51 - VTE Documentation of Mechanical Device: Intermittent pneumatic compression device Consult Discharge Plan - Plan Referrals: Edith Peña CNP [Advanced Practice Nurse] - 09/26/16 10:15 am Kj Yost MD [Partnered Physician] - 09/13/16 1:00 pm Jose,Therese Mccormick CNP [Primary Care Provider] - 09/15/16 9:00 am () Prudence Escobedo MD [Partnered Physician] - 10/11/16 3:50 pm ()
--- NOTE | 2016-09-11 11:43 | Cardiology Progress Note ---
Date of Encounter: 09/11/16 Time of Encounter: 10:30 Assessment and Plan (1) Atrial fibrillation with RVR Current Visit: Yes Status: Acute Patient is in NSR today and cardizem has been stopped. The recent return of AFIB RVR was probably secondary to post-operative state, NPO status and bacteremia. Also, her weights have increased and probably has an element of fluid overload. Recommend IV diuresis per primary team. She also has renal dysfunction. Otherwise, also noted on telemetry is an 8 second pause at 6 pm yesterday evening. Her daughter believes she was sleeping at that time. I recommend observing her over the next 24h on telemetry. If no further episodes of prolonged pauses and when able to take oral, can consider low dose AVN jean-pierre. She continues to demonstrate short runs of PAT on monitor. Otherwise, we are unable to anticoagulate her given recent events and surgery. Ideally, would recommend aspirin when safe from a surgical perspective. The family is aware that she is at high risk for CVA. Discussion w patient/family: The assessment and plan as outlined above was discussed with the patient and/or family members who expressed understanding and agreement. All questions were answered. Thank you for involving us in the care of your patient. Please call with any questions. Subjective Principal diagnosis: ELLE on CKD, COPD, PAF Interval history: Patient is back in NSR today. Overnight, she had an 8 second pause on telemetry. The patient has no new complaints today. She is slightly more alert. Daughter is at bedside. Objective Vital Signs, Last 4 Hours Temp Pulse Resp BP Pulse Ox 09/11/16 11:20 18 95 09/11/16 08:28 18 95 09/11/16 08:00 98.1 F 68 20 118/52 93 General: Conversant, No Apparent Distress HEENT: Atraumatic, Normocephaly Neck: Other (CVP line in place, JVP difficult to evaluate) Cardiac: Reg Rate and Rhythm, Normal S1 and S2, No Murmur Lungs: Normal Breath Sounds Neuro: Alert and responsive, No focal deficits noted Abdomen: Soft, Other (diminished bowel sounds) Extremities: Other (bilateral LE edema) Results 09/11/16 04:10 09/11/16 04:10 Lab Results 09/11/16 09/11/16 04:10 04:10 WBC 9.1 Hgb 8.0 L Hct 23.9 L Plt Count 108 L Sodium 131 L Potassium 3.2 L Chloride 98 Carbon Dioxide 25 BUN 67 H D Creatinine 3.57 H Glucose 116 H Calcium 8.5 L Magnesium 2.0 - EKG Interpretation EKG results cardiology: other (24h telemetry reviewed; 8 second pause at 6 pm on 09/10 (patient sleeping per daughter), now in NSR with short runs of atach) - VTE Documentation of Mechanical Device: Intermittent pneumatic compression device Consult Discharge Plan - Plan Referrals: Edith Peña CNP [Advanced Practice Nurse] - 09/26/16 10:15 am Kj Yost MD [Partnered Physician] - 09/13/16 1:00 pm Garcia,Therese Mccormick CNP [Primary Care Provider] - 09/15/16 9:00 am () Prudence Escobedo MD [Partnered Physician] - 10/11/16 3:50 pm ()
--- NOTE | 2016-09-11 12:42 | General Surgery Progress Note ---
Date of Encounter: 09/11/16 Time of Encounter: 11:30 - Assessment and Plan (1) Angiodysplasia of colon Current Visit: Yes Status: Acute POD #3 Extended right hemicolectomy. Lysis of adhesions times [address] Moy Maintain bowel rest while awaiting return of bowel function NG tube to low intermittent wall suction IV fluids at 50 mL per hour Supportive care and pain control- Ofirmev scheduled every 8 hours and continue as needed Dilaudid IV antibiotics- Cefepime IS every 1 hour while awake Repeat am labs Maintain Watkins catheter for strict I and O's Daily dressing change- complete today PPI therapy daily 09/10/2016. The patient is seen and evaluated. Her blood sugars are over 400. We will need to treat her diabetes much more aggressively. I will discuss this with the hospitalist physicians. She still has no bowel sounds we will maintain nasogastric tube drainage. 09/11/2016. The patient is seen and evaluated. Her sugars are under much better control at 149 today she is awake and alert. She has a few bowel sounds which is very encouraging. Overall she is making progress. White blood cell count normal. Continue nasogastric tube drainage (2) Acute and chronic respiratory failure ([id number]-[id number]) Current Visit: Yes Status: Acute Suspect that low grade fevers are from poor respiratory effort and likely atelectasis IS every 1 hour while awake Aggressive pulmonary toilet Continue aerosol treatments as ordered Wean oxygen as tolerated Management per medicine service Qualifiers: Respiratory failure complication: hypoxia Qualified Code(s): J96.21 - Acute and chronic respiratory failure with hypoxia (3) Insulin dependent type 2 diabetes mellitus Current Visit: Yes Status: Chronic Management per medicine service 09/10/2016. Blood sugars are out of control and over 400. I will discuss this with our hospitalist service for more aggressive management. (4) Acute kidney injury superimposed on CKD Current Visit: Yes Status: Acute Cr- 3.35>3.27 IV fluids Avoid nephrotoxic medications Continue Watkins catheter for strict I's and O's Nephrology following- hemodialysis (5) DVT prophylaxis Current Visit: No Status: Acute Continue EPCDs to bilateral lower extremities for DVT prophylaxis Continue heparin 5,000 units SQ twice daily for DVT prophylaxis Subjective Narrative: The patient is awake and alert today. She has bowel sounds. Nasogastric tube is beginning to decrease. Her white blood cell count is normal. She has not had any rapid ventricular response. Overall she is improved Objective Vital Signs - Last 8 Hours Temp Pulse Resp BP Pulse Ox 09/11/16 11:46 74 09/11/16 11:20 18 95 09/11/16 08:28 18 95 09/11/16 08:00 98.1 F 68 20 118/52 93 Intake and Output 09/10/16 09/11/16 09/11/16 23:59 07:59 15:59 Intake Total 491.3 / 491.3 444.9 / 444.9 35.0 / 35.0 Output Total 370 / 370 Balance 491.3 / 491.3 74.9 / 74.9 35.0 / 35.0 Intake: IV Fluids 491.3 / 491.3 444.9 / 444.9 35.0 / 35.0 Cardizem 125 MG In 0 / 0 Dextrose 5% 100 ML @ 5 MG /HR 5 mls/hr IVC .Q24H [facility] Rx#:[id number] HumuLIN R 100 UNIT In 0. 91.3 / 91.3 94.9 / 94.9 35.0 / 35.0 9 % Sodium Chloride 100 ML @ 5 UNIT/HR 5.05 mls/ hr IVC CONT [facility] Rx#: [id number] Ofirmev 1,000 mg/100 ml 1 100 / 100 100 / 100 ,000 mg In 100 ml @ 400 mls/hr IVPB Q8H [facility] Rx#: [id number] Intralipid 20% 250 ML @ 250 / 250 21 mls/hr IVPB DAILY@1700 [facility] Rx#:[id number] Zyvox Premix 600mg/300mL 300 / 300 600 mg In 300 ml @ 150 mls/hr IVPB Q12HR [facility] Rx# :[id number] Oral 0 / 0 0 / 0 Output: Catheter 250 / 250 Gastric Drainage 120 / 120 Other: Meal npo Breakfast Percent of Meal Consumed 0% Weight 94.4 kg Blood Glucose* 190 199 148 Patient Weight 09/11/16 23:59 Weight 94.4 kg - General physical appearance chronically ill, other (Diffusely edematous) - Respiratory normal expansion, normal respiratory effort, clear to percussion, clear to auscultation - Cardiovascular Cardiovascular exam: Present: irregular rhythm - Abdomen Abdomen: Present: bowel sounds present (Few bowel sounds, but present), soft, non tender - Incision Incision: Present: clean and dry - Psychiatric oriented to time, oriented to person, oriented to place, speech is normal, memory intact - Labs 09/11/16 04:10 09/11/16 04:10 Diabetes panel 09/11/16 Range/Units 04:10 Sodium 131 L (136-145) mEq/L Potassium 3.2 L (3.5-4.5) mEq/L Chloride 98 (98-109) mEq/L Carbon Dioxide 25 (19-29) mEq/L BUN 67 H D (7-20) mg/dL Creatinine 3.57 H (0.57-1.11) mg/dL Glucose 116 H (70-99) mg/dL Calcium 8.5 L (8.6-10.8) mg/dL Calcium panel 09/11/16 Range/Units 04:10 Calcium 8.5 L (8.6-10.8) mg/dL Phosphorus 3.8 (2.3-4.7) mg/dL Pituitary panel 09/11/16 Range/Units 04:10 Sodium 131 L (136-145) mEq/L Potassium 3.2 L (3.5-4.5) mEq/L Chloride 98 (98-109) mEq/L Carbon Dioxide 25 (19-29) mEq/L BUN 67 H D (7-20) mg/dL Creatinine 3.57 H (0.57-1.11) mg/dL Glucose 116 H (70-99) mg/dL Calcium 8.5 L (8.6-10.8) mg/dL Adrenal panel 09/11/16 Range/Units 04:10 Sodium 131 L (136-145) mEq/L Potassium 3.2 L (3.5-4.5) mEq/L Chloride 98 (98-109) mEq/L Carbon Dioxide 25 (19-29) mEq/L BUN 67 H D (7-20) mg/dL Creatinine 3.57 H (0.57-1.11) mg/dL Glucose 116 H (70-99) mg/dL Calcium 8.5 L (8.6-10.8) mg/dL - VTE Documentation of Mechanical Device: Intermittent pneumatic compression device Consult Discharge Plan - Plan Referrals: Edith Peña CNP [Advanced Practice Nurse] - 09/26/16 10:15 am Kj Yost MD [Partnered Physician] - 09/13/16 1:00 pm Garcia,Therese Mccormick CNP [Primary Care Provider] - 09/15/16 9:00 am () Prudence Escobedo MD [Partnered Physician] - 10/11/16 3:50 pm ()
--- NOTE | 2016-09-11 13:00 | Nephrology Progress Note ---
Date of Encounter: 09/11/16 Time of Encounter: 13:00 - Assessment and Plan (1) Acute kidney injury superimposed on CKD Current Visit: Yes Status: Acute SCr slightly worse at 3.57. GFR 12 off HD yesterday after 3 consecutive HD session. Will hold off HD again today and monitor for signs of renal recovery HD as needed but tentatively tomorrow UOP documented at 250cc in the past 24hrs Continue to avoid nephrotoxins if possible (2) Anemia Current Visit: Yes Status: Chronic Hgb low but fairly stable, will monitor Qualifiers: Anemia type: iron deficiency Iron deficiency anemia type: unspecified iron deficiency Qualified Code(s): D50.9 - Iron deficiency anemia, unspecified (3) CKD (chronic kidney disease) stage 4, GFR 15-29 ml/min Current Visit: Yes Status: Chronic Baseline GFR typically low 20s but several bouts of recurrent AKIs noted in the past few months making recovery more and more unlikely as days past by (4) Hyperkalemia Current Visit: No Status: Acute Resolved after 3 consecutive HD sessions and now on the low side. Would not replete right now but can adjust TPN by adding a little potassium Subjective Principal diagnosis: ELLE on CKD, COPD, PAF Interval history: Interim noted, pt seen and examined. Objective - Vital Signs Vital signs: Vital Signs Temp Pulse Resp BP Pulse Ox 09/11/16 11:46 74 09/11/16 11:20 18 95 09/11/16 08:28 18 95 09/11/16 08:00 98.1 F 68 20 118/52 93 09/11/16 04:32 18 95 09/11/16 03:37 97.3 F L 70 22 127/53 95 09/11/16 00:26 22 133/56 94 09/10/16 23:30 97.7 F 61 20 124/56 94 09/10/16 20:21 18 90 09/10/16 19:15 98.5 F 59 18 136/50 92 09/10/16 17:34 18 135/63 90 09/10/16 15:32 18 108/54 91 09/10/16 15:00 82 16 108/54 96 Intake and Output 09/10/16 09/11/16 09/11/16 23:59 07:59 15:59 Intake Total 491.3 / 491.3 444.9 / 444.9 35.0 / 35.0 Output Total 370 / 370 Balance 491.3 / 491.3 74.9 / 74.9 35.0 / 35.0 Intake: IV Fluids 491.3 / 491.3 444.9 / 444.9 35.0 / 35.0 Cardizem 125 MG In 0 / 0 Dextrose 5% 100 ML @ 5 MG /HR 5 mls/hr IVC .Q24H [facility] Rx#:[id number] HumuLIN R 100 UNIT In 0. 91.3 / 91.3 94.9 / 94.9 35.0 / 35.0 9 % Sodium Chloride 100 ML @ 5 UNIT/HR 5.05 mls/ hr IVC CONT [facility] Rx#: [id number] Ofirmev 1,000 mg/100 ml 1 100 / 100 100 / 100 ,000 mg In 100 ml @ 400 mls/hr IVPB Q8H [facility] Rx#: [id number] Intralipid 20% 250 ML @ 250 / 250 21 mls/hr IVPB DAILY@1700 [facility] Rx#:[id number] Zyvox Premix 600mg/300mL 300 / 300 600 mg In 300 ml @ 150 mls/hr IVPB Q12HR [facility] Rx# :[id number] Oral 0 / 0 0 / 0 Output: Catheter 250 / 250 Gastric Drainage 120 / 120 Other: Meal npo Breakfast Percent of Meal Consumed 0% Weight 94.4 kg Blood Glucose* 190 199 148 Patient Weight 09/11/16 23:59 Weight 94.4 kg - Lab 09/11/16 04:10 09/11/16 04:10 Most recent lab results Calcium 8.5 mg/dL (8.6-10.8) L 09/11/16 04:10 Phosphorus 3.8 mg/dL (2.3-4.7) 09/11/16 04:10 Magnesium 2.0 mg/dL (1.6-2.6) 09/11/16 04:10 Urine Creatinine 40 mg/dL 08/25/16 13:19 Urine Sodium 30.0 mEq/L 08/25/16 13:19 Urine Total Protein 22 mg/dL (1-14) H 08/24/16 14:18 - VTE Documentation of Mechanical Device: Intermittent pneumatic compression device Consult Discharge Plan - Plan Referrals: Edith Peña CNP [Advanced Practice Nurse] - 09/26/16 10:15 am Kj Yost MD [Partnered Physician] - 09/13/16 1:00 pm Jose,Therese Mccormick CNP [Primary Care Provider] - 09/15/16 9:00 am () Prudence Escobedo MD [Partnered Physician] - 10/11/16 3:50 pm ()
[2016-09-11] MEDS ORDERED: Clinimix 5%-20% SOLUTION 2,000 ML with MVI, adult with vitamin K 10 ML, Sodium Chlori... IVC SCH (17:00)
--- NOTE | 2016-09-11 17:55 | Electrocardiograph Report ---
[address] [address] Test Date: 2016-09-10 Pat Name: Dorothy Parks Department: 110 Room: 2N01 Gender: F Electrophysiology Nurse Practitioner: [id number] : 1940 Requested By: Dick Zeng Order Number: [id number] Reading MD: Clara Saucedo Measurements Intervals [place] Rate: 157 P: MA: 0 QRS: 7 QRSD: 94 T: 95 QT: 258 QTc: 346 Interpretive Statements ATRIAL FLUTTER/TACHYCARDIA WITH RAPID VENTRICULAR RESPONSE NONSPECIFIC ST \T\ T-WAVE ABNORMALITY Electronically Signed On 09-11-2016 17:54:21 EDT by Clara Saucedo
[2016-09-11] MEDS: Ondansetron 4 MG/2 ML VIAL IVP PRN (21:10)
[2016-09-11] MEDS: *HR* LORazepam 2 MG/ML VIAL IVP PRN (23:23)
[2016-09-12] MEDS: Ipratropium/Albuterol Neb 3 ML IH SCH ×6 (00:29→20:24)
[2016-09-12] MEDS ORDERED: *HR* LORazepam 2 MG/ML VIAL IVP ONE (00:51)
[2016-09-12] MEDS: Acetaminophen IV 1,000 MG/100 ML INFUS..BTL IVPB SCH ×2 (00:56→08:47)
[2016-09-12] MEDS: *HR* HYDROmorphone (PF) 1 MG/ML SYRINGE IVP PRN ×2 (01:03→21:22)
[2016-09-12 04:29] LABS: Hematocrit 23.8 % (35.3-44.9); Lymphocytes # 0.3 K/mcL (0.6-4.6); Mean Corpuscular HGB Conc 33.6 g/dL (31.6-35.5); Mean Corpuscular Hemoglobin 28.7 pg (28.0-33.3); Mean Corpuscular Volume 85.3 fL (83.0-100.0); Mean Platelet Volume 10.1 fL (9.4-12.4); Monocytes # 0.2 K/mcL (0.0-1.3); Monocytes % 2.6 %; Neutrophils # 8.5 K/mcL (1.6-8.9); Platelet Count 101 K/mcL (140-400); Red Blood Count 2.79 M/mcL (3.82-4.97); Red Cell Distribution Width 14.6 % (11.5-14.5); Segmented Neutrophils % 93.4 %
[2016-09-12 04:40] LABS: Calcium 8.6 mg/dL (8.6-10.8); Magnesium 1.8 mg/dL (1.6-2.6); Phosphorous 3.3 mg/dL (2.3-4.7)
[2016-09-12] MEDS ORDERED: Clinimix 5%-20% SOLUTION 2,000 ML with MVI, adult with vitamin K 10 ML, Sodium Chlori... IVC SCH (04:45)
[2016-09-12 05:05] LABS: Platelet Estimate Normal (Normal)
[2016-09-12] MEDS: *HR* Heparin 5,000 UNIT/ML VIAL SQ SCH (05:15)
[2016-09-12] MEDS: Insulin Human Regular 100 UNIT in 0.9 % Sodium Chloride 100 ML IVC SCH ×2 (05:28→19:02)
[2016-09-12] MEDS: Pantoprazole 40 MG VIAL IVP SCH (08:23)
[2016-09-12] MEDS: MethylPREDNISolone 40 MG/ML VIAL IVP SCH (08:23)
--- NOTE | 2016-09-12 08:46 | General Surgery Progress Note ---
Date of Encounter: 09/12/16 Time of Encounter: 08:44 - Assessment and Plan (1) Angiodysplasia of colon Current Visit: Yes Status: Acute POD #6 Extended right hemicolectomy. Lysis of adhesions times [address] Moy Patient reports 1 BM, bowel sounds present NG tube to hart bag today Continue IVF Supportive care and pain control- Ofirmev scheduled every 8 hours and continue as needed Dilaudid IV antibiotics- Cefepime IS every 1 hour while awake Repeat am labs Maintain Hart catheter for strict I and O's Daily dressing change- complete today PPI therapy daily Reglan 20mg Q8hr x 36 hours, then discontinue (2) Acute and chronic respiratory failure ([id number]) Current Visit: Yes Status: Acute IS every 1 hour while awake Aggressive pulmonary toilet Continue aerosol treatments as ordered Wean oxygen as tolerated Management per medicine service Qualifiers: Respiratory failure complication: hypoxia Qualified Code(s): J96.21 - Acute and chronic respiratory failure with hypoxia (3) Acute kidney injury superimposed on CKD Current Visit: Yes Status: Acute SCr 3.93>3.57, GFR 11 Plan: IV fluids Avoid nephrotoxic medications Continue Hart catheter for strict I's and O's Nephrology following- hemodialysis (4) Insulin dependent type 2 diabetes mellitus Current Visit: Yes Status: Chronic Glucose more controlled: 153 Continue to manage per medicine team (5) DVT prophylaxis Current Visit: No Status: Acute Continue EPCDs to bilateral lower extremities for DVT prophylaxis Continue heparin 5,000 units SQ twice daily for DVT prophylaxis Subjective Patient reports: pain is less, flatus, bowel movement (x1) Narrative: Patient seen and examined. Patient awake this morning and reports 1 BM. Positive bowel sounds, NG tube drainage decreasing. Patient reports increased anxiety, but overall improvement. Objective Vital Signs - Last 8 Hours Temp Pulse Resp BP Pulse Ox 09/12/16 08:34 22 95 09/12/16 07:09 97.6 F 91 22 153/67 95 09/12/16 04:28 16 153/72 97 09/12/16 03:00 98.4 F 89 15 153/72 97 Intake and Output 09/11/16 09/12/16 09/12/16 23:59 07:59 15:59 Intake Total 452.6 / 452.6 3411.834 / 3411.834 15.3 / 15.3 Output Total 100 / 100 625 / 625 Balance 352.6 / 352.6 2786.834 / 2786.834 15.3 / 15.3 Intake: IV Fluids 452.6 / 452.6 3411.834 / 3411.834 15.3 / 15.3 HumuLIN R 100 UNIT In 0. 52.6 / 52.6 64.7 / 64.7 15.3 / 15.3 9 % Sodium Chloride 100 ML @ 5 UNIT/HR 5.05 mls/ hr IVC CONT [facility] Rx#: [id number] Clinimix 5%-20% SOLUTION 642.817 / 642.817 2,000 ML @ 70 mls/hr IVC .Q24H [facility] with M.v.i. Adult 10 ml with Sodium Chloride 24 MEQ with Sodium Acetate 46 MEQ with Calcium Gluconate 9 MEQ with Magnesium Sulfate 10 [facility] Rx#: [id number] Clinimix 5%-20% SOLUTION 2054.317 / 2054.317 2,000 ML @ 40 mls/hr IVC .Q24H [facility] with M.v.i. Adult 10 ml with Sodium Phosphate 30 MMOL with Sodium Acetate 20 MEQ with Sodium Chloride 10 MEQ with Magnesium Sulfate 10 MEQ with Calcium Gluconate 9 [facility] Rx#:[id number] Ofirmev 1,000 mg/100 ml 1 100 / 100 100 / 100 ,000 mg In 100 ml @ 400 mls/hr IVPB Q8H [facility] Rx#: [id number] Intralipid 20% 250 ML @ 250 / 250 21 mls/hr IVPB DAILY@1700 [facility] Rx#:[id number] Zyvox Premix 600mg/300mL 300 / 300 300 / 300 600 mg In 300 ml @ 150 mls/hr IVPB Q12HR [facility] Rx# :[id number] Oral 0 / 0 Output: Catheter 475 / 475 Gastric Drainage 100 / 100 150 / 150 Other: Stool Size Large Stool Consistency loose Stool Characteristics Tarry Stool Color Brown Weight 96.6 kg Blood Glucose* 160 233 198 Patient Weight 09/12/16 23:59 Weight 96.6 kg - General physical appearance chronically ill, other (diffuse edema) - Cardiovascular Cardiovascular exam: Present: irregular rhythm - Abdomen Abdomen: Present: bowel sounds present, soft, non tender - Incision Incision: Present: clean and dry - Psychiatric oriented to time, oriented to person, oriented to place - Labs 09/13/16 04:25 09/13/16 04:25 Diabetes panel 09/12/16 Range/Units 04:10 Sodium 128 L (136-145) mEq/L Potassium 3.0 L (3.5-4.5) mEq/L Chloride 95 L (98-109) mEq/L Carbon Dioxide 23 (19-29) mEq/L BUN 77 H (7-20) mg/dL Creatinine 3.93 H (0.57-1.11) mg/dL Glucose 153 H (70-99) mg/dL Calcium 8.6 (8.6-10.8) mg/dL Calcium panel 09/12/16 09/12/16 Range/Units 04:10 04:10 Calcium 8.6 (8.6-10.8) mg/dL Phosphorus 3.3 (2.3-4.7) mg/dL Pituitary panel 09/12/16 Range/Units 04:10 Sodium 128 L (136-145) mEq/L Potassium 3.0 L (3.5-4.5) mEq/L Chloride 95 L (98-109) mEq/L Carbon Dioxide 23 (19-29) mEq/L BUN 77 H (7-20) mg/dL Creatinine 3.93 H (0.57-1.11) mg/dL Glucose 153 H (70-99) mg/dL Calcium 8.6 (8.6-10.8) mg/dL Adrenal panel 09/12/16 Range/Units 04:10 Sodium 128 L (136-145) mEq/L Potassium 3.0 L (3.5-4.5) mEq/L Chloride 95 L (98-109) mEq/L Carbon Dioxide 23 (19-29) mEq/L BUN 77 H (7-20) mg/dL Creatinine 3.93 H (0.57-1.11) mg/dL Glucose 153 H (70-99) mg/dL Calcium 8.6 (8.6-10.8) mg/dL - VTE Documentation of Mechanical Device: Intermittent pneumatic compression device Consult Discharge Plan - Plan Referrals: Edith Peña CNP [Advanced Practice Nurse] - 09/26/16 10:15 am Kj Yost MD [Partnered Physician] - Therese Garcia CNP [Primary Care Provider] - 09/15/16 9:00 am () Prudence Escobedo MD [Partnered Physician] - 10/11/16 3:50 pm () - Attending Attestation I examined this patient and my medical decision-making was reviewed with the [employer]/PA/Advanced Practice Nurse/Resident Physician. I agree with the documented findings, disposition and treatment plan as described except to the extent set forth below. The patient was seen and evaluated with resident on morning rounds. Overall her condition is improving. Try and work toward getting the nasogastric tube out by placing this to a Hart bag giving several doses of Reglan Sukumar Moy MD FACS
--- NOTE | 2016-09-12 09:11 | Internal Med Progress Note ---
Date of Encounter: 09/12/16 Time of Encounter: 09:09 - Assessment and plan (1) Bacteremia due to Enterococcus Current Visit: Yes Status: Acute Assessment and plan: Blood culture drawn 09/08, resulted 09/09 with VRE 05/08 set Started on Zyvox 09/09., Day 3 Continue Zyvox Leukocytosis resolved and patient is clinically improving Blood cultures X2 drawn 09/11 prelim negative Patient has a Right IJ CVC placed 09/07 Will keep for now, if repeat blood cultures show persistent bacteremia will discontinue line and obtain repeat ECHO Patient is afebrile No stigmata of endocarditis (2) Acute kidney injury superimposed on CKD Current Visit: Yes Status: Acute Assessment and plan: s/p Right CVC and HD 09/07, 09/08, 09/09 Continue to hold lasix Continue IVF K slightly low, will observe Nephrology following, appreciate input (3) GIB (gastrointestinal bleeding) Current Visit: Yes Status: Acute Assessment and plan: Secondary to colonic angiodysplasia in the setting of anticoagulation s/p hemicolectomy POD 6, Surgery following Had BM overnight No recurrent bleeds Acute blood loss from surgery, improved after 2 units PRBCS Continue TPN for nutrition Monitor Lipid panel Continue follow up Qualifiers: GI bleed type/associated pathology: unspecified gastrointestinal hemorrhage type Qualified Code(s): K92.2 - Gastrointestinal hemorrhage, unspecified (4) Acute exacerbation of chronic obstructive airways disease Current Visit: Yes Status: Acute Assessment and plan: Patient with chronic respiratory failure and possible retainer Needs BiPAP at night Patient is steroid dependent Currently NPO Taper steroids Continue duonebs and O2 supplement (5) CKD (chronic kidney disease) stage 4, GFR 15-29 ml/min Current Visit: Yes Status: Chronic Assessment and plan: As in ELLE on CKD (6) Hypertension Current Visit: Yes Status: Chronic Assessment and plan: Controlled, Continue current meds Qualifiers: Hypertension type: essential hypertension Qualified Code(s): I10 - Essential (primary) hypertension (7) HCAP (healthcare-associated pneumonia) Current Visit: Yes Status: Resolved Assessment and plan: CXR shows minimal increase infiltrate, Completed 10 days of cefepime CXR 09/09 without infiltrates (8) Atrial fibrillation with RVR Current Visit: Yes Status: Acute Assessment and plan: Patient developed Afib with RVR in the late afternoon yesterday, responded to Lopressor push However, she developed Refractory Aflutter overnight, requring cardizem drip, cardiology was consulted HR now controlled on cardizem drip, discontinued Start lopressor IV prn HR >100 Patient is still NPO Hx of GI bleed, discussed with Dr. Yost and Dr. Moy, started on heparin drip- benefits outweigh risks at this time (9) Acute and chronic respiratory failure ([id number]) Current Visit: Yes Status: Acute Assessment and plan: Secondary to COPDE/CHFE/Afib Continue O2 supplement BiPAP at night Qualifiers: Respiratory failure complication: hypoxia Qualified Code(s): J96.21 - Acute and chronic respiratory failure with hypoxia (10) CHF (congestive heart failure) Current Visit: Yes Status: Chronic Assessment and plan: Improving. Continue beta jean-pierre and supportive care. Hold Lasix. Qualifiers: Congestive heart failure type: diastolic Congestive heart failure chronicity: chronic Qualified Code(s): I50.32 - Chronic diastolic (congestive ) heart failure (11) Leukocytosis Current Visit: Yes Status: Resolved Assessment and plan: Secondary to bactremia Resolved Qualifiers: Leukocytosis type: unspecified Qualified Code(s): D72.829 - Elevated white blood cell count, unspecified (12) Diabetes mellitus Current Visit: Yes Status: Chronic Assessment and plan: FS have been controlled until the past Hyperglycemia possibly secondary to Starting TPN Start insulin drip and monitor FS q1h till stable, then q4h afterwards Qualifiers: Diabetes mellitus type: type 2 Diabetes mellitus complication status: with kidney complications Diabetes mellitus complication detail: with chronic kidney disease Diabetes mellitus director long term care insulin use: unspecified mcc insulin use status Chronic kidney disease stage: stage 4 (severe) Qualified Code(s): E11.22 - Type 2 diabetes mellitus with diabetic chronic kidney disease ; N18.4 - Chronic kidney disease, stage 4 (severe) - Subjective Interval history: 76 Y/O F Seen and evaluated at bedside with family Complicated hospital stay Patient with admission for COPDE, Afib with RVR, HCAP Hospital say complicated by LGIB s/p colonoscopy with angiodysplasia which was cauterized, recurrent bleed s/p R hemicolectomy She is postop day 6 status post right hemicolectomy. Post-op complicated by ELLE on CKD with oliguria, patient had CVC placed / and started on HD 5/3 Total Urine output 09/11~800cc Total Gastric output in past 24 hrs NG-250cc Patient still oliguric Leukocytosis has resolved 09/11 She developed Afib with RVR and refractory Aflutter 09/09, was on cardizem drip, she has been off cardizem drip all night because her HR has been stable She also developed hyperglycemia after 1900 09/09 possibly from TPN, started insulin drip 09/10. FS has been stable Blood culture from 09/08 with VRE sensitive to streptomycin/Zyvox/genticin, started on Zyvox 09/09 after blood culture was resulted. Day 3 on Zyvox Repeat blood culture from 09/11 preliminary negative, leukocytosis has resolved and Hb remains stable. Patient had 2 BM yesterday Surgery, Nephrology, cardiology input appreciated Had an extensive discussion with sql report analyst Dr Yost , Surgeon Dr. Moy and patient's daughters, due to her hx of multiple cryptogenic CVA and based on the pathology reports from the specimen from surgery, Dr. Moy believes the patient is low risk for recurring GI bleed. We will start a trial of Heparin drip today - Constitutional Vitals: Temp Pulse Resp BP Pulse Ox 97.6 F 91 22 153/67 95 09/12/16 07:09 09/12/16 07:09 09/12/16 08:34 09/12/16 07:09 09/12/16 08:34 General appearance: Present: A&O X 3, pleasant, obese, answers questions appropriately Exam: VSS, O2 sat 97% on 6L O2 by face mask., HR WNL She is very much more awake today and able to participate in a conversation Neuro: AAOX3, moves all limbs spontaneously, no focal deficits HEENT: Right IJ CVC, clean dressing, moist oral mucosa, no cyanosis, ELOISE Chest: Anterior chest wall ecchymosis at the site of a loop recorder on the left chest wall Chest is Clear to auscultation bilaterally, no wheezes, no rhonchi, no stridor. Heart: S1, S2, RRR, no m/g/r Abdomen: Soft, not tender, no palpably enlarged organs. Midline wound dressing clean and dry. Bowel sounds present in all quadrants Extremities: No pedal edema, pulses equal bilaterally Internal Medicine: Result - Labs CBC & Chem 7: 09/12/16 11:55 09/12/16 04:10 Labs: Short CBC 09/12/16 Range/Units 04:10 WBC 9.1 (4.3-11.1) K/mcL Hgb 8.0 L (11.5-15.4) g/dL Hct 23.8 L (35.3-44.9) % Plt Count 101 L (140-400) K/mcL Neutrophils # 8.5 (1.6-8.9) K/mcL BMP 09/12/16 04:10 Sodium 128 L Potassium 3.0 L Chloride 95 L Carbon Dioxide 23 BUN 77 H Creatinine 3.93 H Glucose 153 H Calcium 8.6 - ABG Interpretation ABG results: PT/INR, D-dimer PT 10.3 Seconds (9.4-12.1) 08/25/16 16:51 - VTE Documentation of Mechanical Device: Intermittent pneumatic compression device Consult Discharge Plan - Plan Referrals: Edith Peña CNP [Advanced Practice Nurse] - 09/26/16 10:15 am Kj Yost MD [Partnered Physician] - 09/13/16 1:00 pm Jose,Therese Mccormick CNP [Primary Care Provider] - 09/15/16 9:00 am () Prudence Escobedo MD [Partnered Physician] - 10/11/16 3:50 pm ()
[2016-09-12] MEDS ORDERED: 0.9 % Sodium Chloride 250 ML IVC PRN (09:47)
[2016-09-12] MEDS: Metoclopramide 20 MG in 0.9 % Sodium Chloride 50 ML IVPB SCH ×2 (10:20→16:45)
[2016-09-12] MEDS ORDERED: *HR* Heparin 5,000 UNIT/ML VIAL IVP PRN ×4 (10:47→13:20)
[2016-09-12] MEDS ORDERED: *HR* Heparin 5,000 UNIT/ML VIAL IVP ONE (10:47)
--- NOTE | 2016-09-12 10:50 | Cardiology Progress Note ---
Date of Encounter: 09/12/16 Time of Encounter: 10:50 Assessment and Plan (1) Atrial fibrillation with RVR Current Visit: Yes Status: Acute PAF. Patient remains in NSR. A-Fib RVR was likely secondary to post-operative state, NPO status and bacteremia. On telemetry 09/10/16 there was an 8 second pause when converting to SR. 24 hour tele reviewed today with no significant pauses noted. At bedside HR 90s- low 100s SR with ectopy. Will order scheduled IV Lopressor until she can tolerate PO, then add low dose PO BB. Pt hypokalemic today K 3.0. Discussed with hospitalist, they are deferring to nephrology for replacement. CHADSVASC 6 (Age, HTN, Female, CVA, DM). 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 She is high risk for recurrent CVA. Hx of GI bleeding from angiodysplasia of right colon, but now s/p right hemicolectomy. H&H Stable. Discussed with surgery, Dr. Moy, who is okay with starting anticoagulation. Will challenge with heparin gtt to see how she tolerates. If no bleeding and stable H&H, then will transition to Coumadin once tolerating PO meds. (2) History of CVA (cerebrovascular accident) Current Visit: Yes Status: Chronic History of 2 CVAs in May 2016, suspected cryptogenic. Loop recorder was inserted 08/2016. Now with documented PAF during hospitalization. Anticoagulation as above. Discussion w patient/family: The assessment and plan as outlined above was discussed with the patient and/or family members who expressed understanding and agreement. All questions were answered. Thank you for involving us in the care of your patient. Please call with any questions. I have discussed all the above with Dr. Kj Yost. I will make changes as necessary. Subjective Principal diagnosis: ELLE on CKD, COPD, PAF Interval history: Pt denies any acute complaints this AM. Objective Vital Signs, Last 4 Hours Temp Pulse Resp BP Pulse Ox 09/12/16 08:34 22 95 09/12/16 07:09 97.6 F 91 22 153/67 95 Vital Signs Temp Pulse Resp BP Pulse Ox 09/12/16 08:34 22 95 09/12/16 07:09 97.6 F 91 22 153/67 95 09/12/16 04:28 16 153/72 97 09/12/16 03:00 98.4 F 89 15 153/72 97 09/12/16 00:29 18 149/82 97 09/11/16 23:05 98.1 F 91 91 149/82 94 09/11/16 20:31 20 96 09/11/16 19:15 98.1 F 85 17 171/79 94 09/11/16 15:56 18 96 09/11/16 15:00 74 09/11/16 14:00 74 18 148/61 96 09/11/16 12:00 74 18 136/58 94 09/11/16 11:46 74 09/11/16 11:20 18 95 Intake and Output 09/11/16 09/12/16 09/12/16 23:59 07:59 15:59 Intake Total 452.6 / 452.6 3411.834 / 3411.834 22.9 / 22.9 Output Total 100 / 100 625 / 625 Balance 352.6 / 352.6 2786.834 / 2786.834 22.9 / 22.9 Intake: IV Fluids 452.6 / 452.6 3411.834 / 3411.834 22.9 / 22.9 HumuLIN R 100 UNIT In 0. 52.6 / 52.6 64.7 / 64.7 22.9 / 22.9 9 % Sodium Chloride 100 ML @ 5 UNIT/HR 5.05 mls/ hr IVC CONT [facility] Rx#: [id number] Clinimix 5%-20% SOLUTION 642.817 / 642.817 2,000 ML @ 70 mls/hr IVC .Q24H [facility] with M.v.i. Adult 10 ml with Sodium Chloride 24 MEQ with Sodium Acetate 46 MEQ with Calcium Gluconate 9 MEQ with Magnesium Sulfate 10 MEQ Rx#: [id number] Clinimix 5%-20% SOLUTION 2054.317 / 2054.317 2,000 ML @ 40 mls/hr IVC .Q24H [facility] with M.v.i. Adult 10 ml with Sodium Phosphate 30 MMOL with Sodium Acetate 20 MEQ with Sodium Chloride 10 MEQ with Magnesium Sulfate 10 MEQ with Calcium Gluconate 9 MEQ Rx#:[id number] Ofirmev 1,000 mg/100 ml 1 100 / 100 100 / 100 ,000 mg In 100 ml @ 400 mls/hr IVPB Q8H [facility] Rx#: [id number] Intralipid 20% 250 ML @ 250 / 250 21 mls/hr IVPB DAILY@1700 [facility] Rx#:[id number] Zyvox Premix 600mg/300mL 300 / 300 300 / 300 600 mg In 300 ml @ 150 mls/hr IVPB Q12HR [facility] Rx# :[id number] Oral 0 / 0 Output: Catheter 475 / 475 Gastric Drainage 100 / 100 150 / 150 Other: Stool Size Large Stool Consistency loose Stool Characteristics Tarry Stool Color Brown Weight 96.6 kg Blood Glucose* 160 233 146 Patient Weight 09/12/16 23:59 Weight 96.6 kg General: Conversant, No Apparent Distress HEENT: Atraumatic, Normocephaly, Mucus Membranes Moist Neck: No JVD, Normal carotid pulses Cardiac: Reg Rate and Rhythm, Normal S1 and S2, No Murmur Lungs: Normal Breath Sounds, No Wheeze, Rales, Rhonchi Neuro: Alert and responsive, No focal deficits noted Abdomen: Soft, Non-Tender Skin: No rashes noted on visualized skin Musculoskeletal: No Chest Wall Tenderness Extremities: No Clubbing, No Cyanosis, Other (mild edema up BLE and BUE noted) Results 09/12/16 04:10 09/12/16 04:10 Lab Results 09/12/16 09/12/16 09/12/16 04:10 04:10 04:10 WBC 9.1 Hgb 8.0 L Hct 23.8 L Plt Count 101 L Sodium 128 L Potassium 3.0 L Chloride 95 L Carbon Dioxide 23 BUN 77 H Creatinine 3.93 H Glucose 153 H Calcium 8.6 Magnesium 1.8 Short CBC 09/12/16 Range/Units 04:10 WBC 9.1 (4.3-11.1) K/mcL Hgb 8.0 L (11.5-15.4) g/dL Hct 23.8 L (35.3-44.9) % Plt Count 101 L (140-400) K/mcL Neutrophils # 8.5 (1.6-8.9) K/mcL BMP 09/12/16 Range/Units 04:10 Sodium 128 L (136-145) mEq/L Potassium 3.0 L (3.5-4.5) mEq/L Chloride 95 L (98-109) mEq/L Carbon Dioxide 23 (19-29) mEq/L BUN 77 H (7-20) mg/dL Creatinine 3.93 H (0.57-1.11) mg/dL Glucose 153 H (70-99) mg/dL Calcium 8.6 (8.6-10.8) mg/dL Active Medications Albuterol/Ipratropium (Duoneb) 3 ml IH [id number] KE[facility]A PRN Reason: Protocol Stop: 02/21/17 20:01 Last Admin: 09/12/16 08:30 Dose: 3 ml Dextrose/Water (Dextrose 50% (Syg)) 25 ml IVP AD PRN PRN Reason: Hypoglycemia Stop: 03/10/17 15:18 Glucagon (Glucagen) 1 mg IM ONCE PRN PRN Reason: Hypoglycemia Stop: 03/10/17 15:18 Glucose (Gluctose) 15 gm PO ONCE PRN PRN Reason: Hypoglycemia Stop: 03/10/17 15:18 Glucose (Gluctose) 30 gm PO ONCE PRN PRN Reason: Hypoglycemia Stop: 03/10/17 15:18 Heparin Sodium (Porcine) (Heparin) 6,800 unit 70 unit/kg (6800 unit) IVP Q6HR PRN PRN Reason: SEE COMMENTS Stop: 03/14/17 10:48 Heparin Sodium (Porcine) (Heparin) 3,400 unit 35 unit/kg (3400 unit) IVP Q6H PRN PRN Reason: SEE COMMENTS Stop: 03/14/17 10:48 Hydromorphone HCl (Dilaudid) 0.5 mg IVP Q3H PRN PRN Reason: SEE COMMENTS Stop: 03/10/17 07:37 Last Admin: 09/12/16 01:03 Dose: 0.5 mg Sodium Chloride (0.9 % Sodium Chloride) 1,000 mls @ 0 mls/hr PRIME .Q0M [facility] PRN Reason: As Directed Stop: 03/10/17 09:01 Dextrose (Dextrose 5%) 1,000 mls @ 100 mls/hr IVC .Q10H PRN PRN Reason: HYPOGLYCEMIA Stop: 03/10/17 15:18 Sodium Chloride (0.9 % Sodium Chloride) 250 mls @ 937.5 mls/hr IVC .Q16M PRN PRN Reason: Hypotension Stop: 03/11/17 07:35 Sodium Chloride (0.9 % Sodium Chloride) 1,000 mls @ 0 mls/hr PRIME .Q0M [facility] PRN Reason: As Directed Stop: 03/11/17 07:46 Dextrose (Dextrose 10% Water 500 Ml Ivbag) 500 mls @ 50 mls/hr IVC .Q10H PRN PRN Reason: TPN delayed or interrupted Stop: 03/11/17 14:03 Fat Emulsion Intravenous (Intralipid 20%) 250 mls @ 21 mls/hr IVPB DAILY@1700 [facility] Stop: 03/11/17 17:01 Last Infusion: 09/12/16 06:15 Dose: Infused Linezolid/Dextrose (Zyvox Premix 600mg/300ml) 600 mg in 300 mls @ 150 mls/hr IVPB Q12HR [facility] Stop: 03/11/17 14:41 Last Infusion: 09/12/16 07:20 Dose: Infused Diltiazem HCl 125 mg/ Dextrose 125 mls @ 5 mls/hr IVC .Q24H [facility]; 5 MG/HR PRN Reason: Protocol Stop: 03/11/17 23:01 Last Admin: 09/11/16 23:11 Dose: Not Given Acetaminophen (Ofirmev 1,000 Mg/100 Ml) 1,000 mg in 100 mls @ 400 mls/hr IVPB Q8H [facility] Stop: 03/10/17 08:01 Last Admin: 09/12/16 08:47 Dose: 400 mls/hr Insulin Human Regular 100 unit (/ Sodium Chloride) 101 mls @ 5.05 mls/hr IVC CONT KEILA; 5 UNIT/HR PRN Reason: Protocol Stop: 03/12/17 07:31 Last Titration: 09/12/16 09:01 Dose: 12.11 unit/hr, 12.24 mls/hr Multivitamins 10 ml/ Sodium Chloride 24 meq/ Sodium Acetate 46 meq/ Calcium Gluconate 9 meq/ Magnesium Sulfate 10 meq/ Amino Acids 2,060.817 mls @ 70 mls/ hr IVC .Q24H [facility] PRN Reason: Protocol Stop: 09/12/16 16:59 Last Infusion: 09/12/16 04:20 Dose: 70 mls/hr Metoclopramide HCl 20 mg/ (Sodium Chloride) 54 mls @ 108 mls/hr IVPB Q8H [facility] Stop: 09/13/16 08:46 Last Admin: 09/12/16 10:20 Dose: 108 mls/hr Sodium Chloride (0.9 % Sodium Chloride) 250 mls @ 937.5 mls/hr IVC .Q16M PRN PRN Reason: Hypotension Stop: 03/14/17 09:48 Heparin Sodium/Dextrose (Heparin 25,000 Unit/500 Ml D5w) 25,000 unit in 500 mls @ 27.048 mls/hr IVC .[id number] [facility]; 14 UNIT/KG/HR PRN Reason: Protocol Stop: 03/14/17 11:01 Insulin Detemir (Levemir) 10 unit SQ HS [facility] Stop: 02/27/17 21:01 Last Admin: 09/09/16 20:32 Dose: 10 unit Lorazepam (Ativan) 0.25 mg IVP Q6HR PRN PRN Reason: Anxiety Stop: 02/26/17 11:06 Last Admin: 09/11/16 23:23 Dose: 0.25 mg Methylprednisolone (Solu-Medrol) 5 mg IVP Q24H [facility] Stop: 03/11/17 09:01 Last Admin: 09/12/16 08:23 Dose: 5 mg Metoprolol Tartrate (Lopressor) 5 mg IVP Q6HR [facility] Stop: 03/14/17 12:01 Multi-Ingredient Mucositis Elizabeth (Chloraseptic) 2 spray MM QID PRN PRN Reason: Sore Throat Stop: 03/11/17 21:52 Last Admin: 09/10/16 23:39 Dose: 2 spray Ondansetron HCl (Zofran) 4 mg IVP Q6HR PRN; Protocol PRN Reason: Nausea Stop: 03/13/17 21:02 Last Admin: 09/11/16 21:10 Dose: 4 mg Pantoprazole Sodium (Protonix) 40 mg IVP DAILY [facility] Stop: 03/09/17 11:01 Last Admin: 09/12/16 08:23 Dose: 40 mg - Imaging and Cardiology Echo: report reviewed - EKG Interpretation EKG results cardiology: other (24 hour tele AVG HR 79, SR, no significant pauses noted.) - VTE Documentation of Mechanical Device: Intermittent pneumatic compression device Consult Discharge Plan - Plan Referrals: KendallEdith ayers CNP [Advanced Practice Nurse] - 09/26/16 10:15 am Kj Yost MD [Partnered Physician] - 09/13/16 1:00 pm Therese Garcia CNP [Primary Care Provider] - 09/15/16 9:00 am () Prudence Escobedo MD [Partnered Physician] - 10/11/16 3:50 pm ()
[2016-09-12] MEDS ORDERED: Heparin 25,000 UNIT/500 ML D5W 25,000 UNIT/500 ML MLS IVC SCH (11:00)
--- NOTE | 2016-09-12 11:06 | Nephrology Progress Note ---
Date of Encounter: 09/12/16 Time of Encounter: 11:03 - Assessment and Plan (1) Acute kidney injury superimposed on CKD Current Visit: Yes Status: Acute Scr worse today at 3.93, up from 3.57 GFR dropped from 12 to 11 Plan for HD today UOP 250 (2) CKD (chronic kidney disease) stage 4, GFR 15-29 ml/min Current Visit: Yes Status: Chronic Baseline GFR low 20s Unknown yet if kidneys will recover from this ELLE Avoid nephrotoxins (3) Acute exacerbation of chronic obstructive airways disease Current Visit: Yes Status: Acute per primary team (4) Anemia Current Visit: Yes Status: Chronic Hgb stable at 8.0 Qualifiers: Anemia type: iron deficiency Iron deficiency anemia type: unspecified iron deficiency Qualified Code(s): D50.9 - Iron deficiency anemia, unspecified Subjective Principal diagnosis: ELLE on CKD, COPD, PAF Interval history: Patient seen and examined. Daughters at bedside; patient is awake and responds to questions Objective - Vital Signs Vital signs: Vital Signs Temp Pulse Resp BP Pulse Ox 09/12/16 08:34 22 95 09/12/16 07:09 97.6 F 91 22 153/67 95 09/12/16 04:28 16 153/72 97 09/12/16 03:00 98.4 F 89 15 153/72 97 09/12/16 00:29 18 149/82 97 09/11/16 23:05 98.1 F 91 91 149/82 94 09/11/16 20:31 20 96 09/11/16 19:15 98.1 F 85 17 171/79 94 09/11/16 15:56 18 96 09/11/16 15:00 74 09/11/16 14:00 74 18 148/61 96 09/11/16 12:00 74 18 136/58 94 09/11/16 11:46 74 09/11/16 11:20 18 95 Intake and Output 09/11/16 09/12/16 09/12/16 23:59 07:59 15:59 Intake Total 452.6 / 452.6 3411.834 / 3411.834 22.9 / 22.9 Output Total 100 / 100 625 / 625 Balance 352.6 / 352.6 2786.834 / 2786.834 22.9 / 22.9 Intake: IV Fluids 452.6 / 452.6 3411.834 / 3411.834 22.9 / 22.9 HumuLIN R 100 UNIT In 0. 52.6 / 52.6 64.7 / 64.7 22.9 / 22.9 9 % Sodium Chloride 100 ML @ 5 UNIT/HR 5.05 mls/ hr IVC CONT [facility] Rx#: [id number] Clinimix 5%-20% SOLUTION 642.817 / 642.817 2,000 ML @ 70 mls/hr IVC .Q24H [facility] with M.v.i. Adult 10 ml with Sodium Chloride 24 MEQ with Sodium Acetate 46 MEQ with Calcium Gluconate 9 MEQ with Magnesium Sulfate 10 MEQ Rx#: [id number] Clinimix 5%-20% SOLUTION 2054.317 / 2054.317 2,000 ML @ 40 mls/hr IVC .Q24H [facility] with M.v.i. Adult 10 ml with Sodium Phosphate 30 MMOL with Sodium Acetate 20 MEQ with Sodium Chloride 10 MEQ with Magnesium Sulfate 10 MEQ with Calcium Gluconate 9 MEQ Rx#:[id number] Ofirmev 1,000 mg/100 ml 1 100 / 100 100 / 100 ,000 mg In 100 ml @ 400 mls/hr IVPB Q8H [facility] Rx#: [id number] Intralipid 20% 250 ML @ 250 / 250 21 mls/hr IVPB DAILY@1700 [facility] Rx#:[id number] Zyvox Premix 600mg/300mL 300 / 300 300 / 300 600 mg In 300 ml @ 150 mls/hr IVPB Q12HR [facility] Rx# :[id number] Oral 0 / 0 Output: Catheter 475 / 475 Gastric Drainage 100 / 100 150 / 150 Other: Stool Size Large Stool Consistency loose Stool Characteristics Tarry Stool Color Brown Weight 96.6 kg Blood Glucose* 160 233 146 Patient Weight 09/12/16 23:59 Weight 96.6 kg - General Appearance General appearance: Present: obese, fatigue, frail EENT: Present: ATNC, hearing intact Neck: Present: supple Respiratory: Present: course breath sounds Cardiology: Present: edema, rapid rhythm, irregular rhythm Dialysis Vascular Access: Venous Catheter Gastrointestinal: Present: no guarding Integumentary: Present: warm and dry Neurologic: Present: alert and oriented x3 Psychiatric: Present: cooperative - Lab 09/12/16 04:10 09/12/16 04:10 Most recent lab results Calcium 8.6 mg/dL (8.6-10.8) 09/12/16 04:10 Phosphorus 3.3 mg/dL (2.3-4.7) 09/12/16 04:10 Magnesium 1.8 mg/dL (1.6-2.6) 09/12/16 04:10 Urine Creatinine 40 mg/dL 08/25/16 13:19 Urine Sodium 30.0 mEq/L 08/25/16 13:19 Urine Total Protein 22 mg/dL (1-14) H 08/24/16 14:18 - VTE Documentation of Mechanical Device: Intermittent pneumatic compression device Consult Discharge Plan - Plan Referrals: Edith Peña CNP [Advanced Practice Nurse] - 09/26/16 10:15 am Kj Yost MD [Partnered Physician] - 09/13/16 1:00 pm Jose,Therese Mccormick CNP [Primary Care Provider] - 09/15/16 9:00 am () Prudence Escobedo MD [Partnered Physician] - 10/11/16 3:50 pm ()
[2016-09-12] MEDS: *HR* Metoprolol 5 MG/5 ML VIAL IVP SCH ×2 (11:27→20:30)
[2016-09-12 12:06] LABS: Hematocrit 25.3 % (35.3-44.9); Hemoglobin 8.4 g/dL (11.5-15.4); Immature Platelets 5.3 % (1.1-6.1); Mean Corpuscular HGB Conc 33.2 g/dL (31.6-35.5); Mean Corpuscular Hemoglobin 28.4 pg (28.0-33.3); Mean Corpuscular Volume 85.5 fL (83.0-100.0); Mean Platelet Volume 10.6 fL (9.4-12.4); Red Blood Count 2.96 M/mcL (3.82-4.97); Red Cell Distribution Width 14.6 % (11.5-14.5)
[2016-09-12 12:11] LABS: INR 0.9; Prothrombin Time 9.4 Seconds (9.4-12.1)
[2016-09-12 12:13] LABS: Activated Partial Thrombo Time 24.1 Seconds (26.0-36.0)
[2016-09-12] MEDS: Ondansetron 4 MG/2 ML VIAL IVP PRN (12:18)
[2016-09-12] MEDS: Heparin 25,000 UNIT/500 ML D5W 25,000 UNIT/500 ML MLS IVC SCH (14:42)
--- NOTE | 2016-09-12 15:18 | Event Note ---
Date of Encounter: 09/12/16 Time of Encounter: 14:00 Patient seen and examined. Complaint of nausea and dry heaves. Patient NG tube placed back to LIWS and order placed. Will re-assess 09/13/16 for possible gravity drain.
[2016-09-12] MEDS ORDERED: Clinimix 5%-20% SOLUTION 2,000 ML with MVI, adult with vitamin K 10 ML, Sodium Acetat... IVC SCH (17:00)
[2016-09-12] MEDS: Acetaminophen IV 1,000 MG/100 ML INFUS..BTL IVPB PRN (18:08)
[2016-09-12] MEDS ORDERED: 0.9 % Sodium Chloride 2,000 ML ONE (18:41)
[2016-09-12] MEDS: Chloraseptic Spray 177 ML BOTTLE MM PRN (22:35)
[2016-09-13] MEDS: *HR* LORazepam 2 MG/ML VIAL IVP PRN ×2 (00:09→10:13)
[2016-09-13] MEDS: *HR* Metoprolol 5 MG/5 ML VIAL IVP SCH ×5 (00:09→23:44)
[2016-09-13] MEDS: Metoclopramide 20 MG in 0.9 % Sodium Chloride 50 ML IVPB SCH ×2 (00:09→10:02)
[2016-09-13] MEDS: Ipratropium/Albuterol Neb 3 ML IH SCH ×6 (00:21→20:51)
[2016-09-13 00:47] LABS: Hematocrit 26.7 % (35.3-44.9); Hemoglobin 8.7 g/dL (11.5-15.4)
[2016-09-13] MEDS ORDERED: *HR* Morphine 2 MG/ML SYRINGE IVP ONE (02:12)
[2016-09-13 04:41] LABS: Basophils % 0.1 %; Mean Corpuscular Volume 85.8 fL (83.0-100.0); Red Blood Count 3.03 M/mcL (3.82-4.97); Red Cell Distribution Width 14.9 % (11.5-14.5)
[2016-09-13 04:43] LABS: Eosinophils % 0.4 %; Hemoglobin 8.6 g/dL (11.5-15.4); Immature Granulocytes % 3.2 % (0-4); Immature Platelets 5.2 % (1.1-6.1); Lymphocytes # 0.3 K/mcL (0.6-4.6); Lymphocytes % 3.6 %; Mean Corpuscular HGB Conc 33.1 g/dL (31.6-35.5); Mean Corpuscular Hemoglobin 28.4 pg (28.0-33.3); Mean Platelet Volume 9.9 fL (9.4-12.4); Monocytes # 0.2 K/mcL (0.0-1.3); Monocytes % 2.4 %; Neutrophils # 8.2 K/mcL (1.6-8.9); Nucleated Red Blood Cells 0.5 /100 WBC (0); Platelet Count 102 K/mcL (140-400); Segmented Neutrophils % 90.3 %
[2016-09-13 05:00] LABS: Magnesium 1.6 mg/dL (1.6-2.6); Phosphorous 1.7 mg/dL (2.3-4.7)
[2016-09-13 05:01] LABS: Calcium 8.3 mg/dL (8.6-10.8); Potassium 3.1 mEq/L (3.5-4.5)
[2016-09-13 05:12] LABS: Platelet Estimate Slight Decrease (Normal)
[2016-09-13] MEDS: Acetaminophen IV 1,000 MG/100 ML INFUS..BTL IVPB PRN (05:12)
--- NOTE | 2016-09-13 08:17 | General Surgery Progress Note ---
Date of Encounter: 09/13/16 Time of Encounter: 08:13 - Assessment and Plan (1) Angiodysplasia of colon Current Visit: Yes Status: Acute POD #7 Extended right hemicolectomy. Lysis of adhesions times [address] Moy Patient reports 3 BM, bowel sounds present. NG had 250cc output yesterday Patient febrile today, Temp 100.4. Patient has wet cough with audible wheezing, diffuse wheezes and rhonchi on lung exam. Plan: -Remove NG tube today -OK to resume oral anticoagulation -Encourage incentive spirometry when up. -Advance diet to clear liquid, 300cc per shift -Maintain Watkins catheter for strict I and O's -Daily dressing change -PPI therapy daily -Reglan 20mg Q8hr x 36 hours, then discontinue (2) Acute and chronic respiratory failure ([id number]) Current Visit: Yes Status: Acute IS every 1 hour while awake Aggressive pulmonary toilet Continue aerosol treatments as ordered Wean oxygen as tolerated Management per medicine service Qualifiers: Respiratory failure complication: hypoxia Qualified Code(s): J96.21 - Acute and chronic respiratory failure with hypoxia (3) Acute kidney injury superimposed on CKD Current Visit: Yes Status: Acute SCr 1.97<3.93, GFR 25 Plan: IV fluids Avoid nephrotoxic medications Continue Watkins catheter for strict I's and O's Nephrology following- hemodialysis (4) Insulin dependent type 2 diabetes mellitus Current Visit: Yes Status: Chronic Glucose more controlled: 160's Continue to manage per medicine team (5) DVT prophylaxis Current Visit: No Status: Acute Continue EPCDs to bilateral lower extremities for DVT prophylaxis Continue heparin 5,000 units SQ twice daily for DVT prophylaxis Subjective Patient reports: feels better, bowel movement, fever Narrative: Patient was seen and examined. Her daughter states that she had 2 bowel movements yesterday and one bowel movement today. She is febrile today and has a cough, her lungs sound rhonchorous on exam with audible wheezing. Advised patient's daughter to encourage use of the incentive spirometry Objective Vital Signs - Last 8 Hours Temp Pulse Resp BP Pulse Ox 09/13/16 08:07 20 95 09/13/16 07:13 100.2 F H 108 24 157/70 96 09/13/16 04:10 100.4 F H 109 22 166/83 95 09/13/16 03:45 18 94 09/13/16 00:21 23 94 Intake and Output 09/12/16 09/13/16 09/13/16 23:59 07:59 15:59 Intake Total 2175.1 / 2175.1 633.3 / 633.3 Output Total 5650 / 5650 Balance -3474.9 / -3474.9 633.3 / 633.3 Intake: IV Fluids 645.1 / 645.1 633.3 / 633.3 Heparin 25,000 UNIT/500 177 / 177 184 / 184 ML D5W 25,000 unit In 500 ml @ 12 UNIT/KG/HR 23. 184 mls/hr IVC .[id number] [facility] Rx#:[id number] HumuLIN R 100 UNIT In 0. 14.1 / 14.1 45.3 / 45.3 9 % Sodium Chloride 100 ML @ 5 UNIT/HR 5.05 mls/ hr IVC CONT [facility] Rx#: [id number] Ofirmev 1,000 mg/100 ml 1 100 / 100 100 / 100 ,000 mg In 100 ml @ 400 mls/hr IVPB Q8H PRN Rx#: [id number] Intralipid 20% 250 ML @ 250 / 250 21 mls/hr IVPB DAILY@1700 [facility] Rx#:[id number] Zyvox Premix 600mg/300mL 300 / 300 600 mg In 300 ml @ 150 mls/hr IVPB Q12HR [facility] Rx# :[id number] Reglan 20 MG In 0.9 % 54 / 54 54 / 54 Sodium Chloride 50 ML @ 108 mls/hr IVPB Q8H [facility] Rx#:[id number] Oral 0 / 0 Infusion Intake 1530 / 1530 Output: Urine 0 / 0 Total Dialysis Output 4600 / 4600 Catheter 950 / 950 Gastric Drainage 100 / 100 Other: Meal Dinner Percent of Meal Consumed 0% Stool Size Small Small Stool Consistency liquid liquid Stool Characteristics Tarry Stool Color Brown Brown # Bowel Movements 1 1 Weight 97.2 kg Blood Glucose* 258 176 196 Hemodialysis Net Fluid 4000 Removed (mL) Patient Weight 09/13/16 23:59 Weight 97.2 kg - General physical appearance chronically ill, obese - Respiratory crackles: bilateral, wheezing: bilateral - Cardiovascular Cardiovascular exam: Present: tachycardia, no murmurs/rubs/gallops - Abdomen Abdomen: Present: bowel sounds present, soft, non tender - Incision Incision: Present: clean and dry - Psychiatric oriented to time, oriented to person, oriented to place - Labs 09/13/16 04:25 09/13/16 04:25 Diabetes panel 09/13/16 Range/Units 04:25 Sodium 136 D (136-145) mEq/L Potassium 3.1 L (3.5-4.5) mEq/L Chloride 101 (98-109) mEq/L Carbon Dioxide 29 (19-29) mEq/L BUN 30 H D (7-20) mg/dL Creatinine 1.97 H (0.57-1.11) mg/dL Glucose 111 H (70-99) mg/dL Calcium 8.3 L (8.6-10.8) mg/dL Calcium panel 09/13/16 09/13/16 Range/Units 04:25 04:25 Calcium 8.3 L (8.6-10.8) mg/dL Phosphorus 1.7 L (2.3-4.7) mg/dL Pituitary panel 09/13/16 Range/Units 04:25 Sodium 136 D (136-145) mEq/L Potassium 3.1 L (3.5-4.5) mEq/L Chloride 101 (98-109) mEq/L Carbon Dioxide 29 (19-29) mEq/L BUN 30 H D (7-20) mg/dL Creatinine 1.97 H (0.57-1.11) mg/dL Glucose 111 H (70-99) mg/dL Calcium 8.3 L (8.6-10.8) mg/dL Adrenal panel 09/13/16 Range/Units 04:25 Sodium 136 D (136-145) mEq/L Potassium 3.1 L (3.5-4.5) mEq/L Chloride 101 (98-109) mEq/L Carbon Dioxide 29 (19-29) mEq/L BUN 30 H D (7-20) mg/dL Creatinine 1.97 H (0.57-1.11) mg/dL Glucose 111 H (70-99) mg/dL Calcium 8.3 L (8.6-10.8) mg/dL - VTE Documentation of Mechanical Device: Intermittent pneumatic compression device Consult Discharge Plan - Plan Referrals: Edith Peña CLERK OF SCALES [Advanced Practice Nurse] - 09/26/16 10:15 am Kj Yost MD [Partnered Physician] - Therese Garcia CNP [Primary Care Provider] - 09/15/16 9:00 am () Prudence Escobedo MD [Partnered Physician] - 10/11/16 3:50 pm () - Attending Attestation I examined this patient and my medical decision-making was reviewed with the [employer]SEM[employer]ER [employer]/PA/Advanced Practice Nurse/Resident Physician. I agree with the documented findings, disposition and treatment plan as described except to the extent set forth below. The patient is seen and evaluated on morning rounds. She is doing quite well. She had several bowel movements will start her on diet. She may start her oral medicines and anticoagulation Sukumar Moy MD FACS
[2016-09-13] MEDS: Pantoprazole 40 MG VIAL IVP SCH (09:22)
[2016-09-13] MEDS: MethylPREDNISolone 40 MG/ML VIAL IVP SCH (09:22)
--- NOTE | 2016-09-13 11:25 | Nephrology Progress Note ---
Date of Encounter: 09/13/16 Time of Encounter: 11:30 - Assessment and Plan (1) Acute kidney injury superimposed on CKD Current Visit: Yes Status: Acute SCr improved at 1.97, GFR 25 after HD yesterday. Will hold off HD today and monitor for signs of renal recovery HD as needed but tentatively tomorrow UOP documented at 1425cc in the past 24hrs which if accurate is a drastic improvement and is hopeful for renal recovery Continue to avoid nephrotoxins if possible (2) Anemia Current Visit: Yes Status: Chronic Hgb low but fairly stable, will monitor Qualifiers: Anemia type: iron deficiency Iron deficiency anemia type: unspecified iron deficiency Qualified Code(s): D50.9 - Iron deficiency anemia, unspecified (3) CKD (chronic kidney disease) stage 4, GFR 15-29 ml/min Current Visit: Yes Status: Chronic Baseline GFR typically low 20s but several bouts of recurrent AKIs noted in the past few months making recovery more and more unlikely as days past by (4) Hyperkalemia Current Visit: No Status: Acute Resolved after 3 consecutive HD sessions and now on the low side. (5) Hypokalemia Current Visit: Yes Status: Acute Potassium still low after high K bath with HD yesterday and potassium added to TPN, will monitor for now and consider adding more to TPN later today Subjective Principal diagnosis: ELLE on CKD, COPD, PAF Interval history: Interim noted, pt seen and examined. s/p HD yesterday Objective - Vital Signs Vital signs: Vital Signs Temp Pulse Resp BP Pulse Ox 09/13/16 08:07 20 95 09/13/16 07:13 100.2 F H 108 24 157/70 96 09/13/16 04:10 100.4 F H 109 22 166/83 95 09/13/16 03:45 18 94 09/13/16 00:21 23 94 09/12/16 23:18 99.5 F 110 22 153/75 94 09/12/16 20:28 16 94 09/12/16 20:00 99.2 F 103 20 147/79 94 09/12/16 19:57 98.8 F 18 139/78 09/12/16 19:20 146/81 09/12/16 19:05 122/73 09/12/16 18:50 133/67 09/12/16 18:35 126/79 09/12/16 18:20 142/90 09/12/16 18:05 128/76 09/12/16 17:50 133/74 09/12/16 17:35 152/85 09/12/16 17:20 157/94 09/12/16 17:05 134/73 09/12/16 16:50 117/68 09/12/16 16:35 142/73 09/12/16 16:20 153/67 09/12/16 16:05 159/77 09/12/16 15:50 97.7 F 18 163/67 09/12/16 12:15 91 09/12/16 11:47 20 95 Intake and Output 09/12/16 09/13/16 09/13/16 23:59 07:59 15:59 Intake Total 2175.1 / 2175.1 633.3 / 633.3 300 / 300 Output Total 5650 / 5650 Balance -3474.9 / -3474.9 633.3 / 633.3 300 / 300 Intake: IV Fluids 645.1 / 645.1 633.3 / 633.3 300 / 300 Heparin 25,000 UNIT/500 177 / 177 184 / 184 ML D5W 25,000 unit In 500 ml @ 12 UNIT/KG/HR 23. 184 mls/hr IVC .[id number] [facility] Rx#:[id number] HumuLIN R 100 UNIT In 0. 14.1 / 14.1 45.3 / 45.3 0 / 0 9 % Sodium Chloride 100 ML @ 5 UNIT/HR 5.05 mls/ hr IVC CONT [facility] Rx#: [id number] Ofirmev 1,000 mg/100 ml 1 100 / 100 100 / 100 ,000 mg In 100 ml @ 400 mls/hr IVPB Q8H PRN Rx#: [id number] Intralipid 20% 250 ML @ 250 / 250 21 mls/hr IVPB DAILY@1700 [facility] Rx#:[id number] Zyvox Premix 600mg/300mL 300 / 300 300 / 300 600 mg In 300 ml @ 150 mls/hr IVPB Q12HR [facility] Rx# :[id number] Reglan 20 MG In 0.9 % 54 / 54 54 / 54 Sodium Chloride 50 ML @ 108 mls/hr IVPB Q8H [facility] Rx#:[id number] Oral 0 / 0 Infusion Intake 1530 / 1530 Output: Urine 0 / 0 Total Dialysis Output 4600 / 4600 Catheter 950 / 950 Gastric Drainage 100 / 100 Other: Meal Dinner Percent of Meal Consumed 0% Stool Size Small Small Stool Consistency liquid liquid Stool Characteristics Tarry Stool Color Brown Brown # Bowel Movements 1 1 Weight 97.2 kg Blood Glucose* 258 176 211 Hemodialysis Net Fluid 4000 Removed (mL) Patient Weight 09/13/16 23:59 Weight 97.2 kg - General Appearance General appearance: Present: chronically ill EENT: Present: ATNC, mucous membranes moist Neck: Present: no JVD, supple Respiratory: Present: course breath sounds Cardiology: Present: edema, normal S1, normal S2 Dialysis Vascular Access: Venous Catheter Gastrointestinal: Present: no tenderness, no guarding, obese Additional Comments: midline surgical wound with dressing in place, no drainage noted Integumentary: Present: warm and dry Neurologic: Present: no focal deficit Musculoskeletal: Present: no deformities Psychiatric: Present: cooperative - Lab 09/13/16 04:25 09/13/16 04:25 Most recent lab results Calcium 8.3 mg/dL (8.6-10.8) L 09/13/16 04:25 Phosphorus 1.7 mg/dL (2.3-4.7) L 09/13/16 04:25 Magnesium 1.6 mg/dL (1.6-2.6) 09/13/16 04:25 Urine Creatinine 40 mg/dL 08/25/16 13:19 Urine Sodium 30.0 mEq/L 08/25/16 13:19 Urine Total Protein 22 mg/dL (1-14) H 08/24/16 14:18 - VTE Documentation of Mechanical Device: Intermittent pneumatic compression device Consult Discharge Plan - Plan Referrals: Edith Peña CNP [Advanced Practice Nurse] - 09/26/16 10:15 am Kj Yost MD [Partnered Physician] - Therese Garcia CNP [Primary Care Provider] - 09/15/16 9:00 am () Prudence Escobedo MD [Partnered Physician] - 10/11/16 3:50 pm ()
[2016-09-13] MEDS: Insulin Human Regular 100 UNIT in 0.9 % Sodium Chloride 100 ML IVC SCH (11:28)
[2016-09-13] MEDS ORDERED: *HR* LORazepam 2 MG/ML VIAL IVP ONE (11:48)
[2016-09-13] MEDS ORDERED: Sodium Phosphate 30 MMOL in D5% in Water 100 ML IVPB STA (12:00)
--- NOTE | 2016-09-13 12:02 | Internal Med Progress Note ---
Date of Encounter: 09/13/16 Time of Encounter: 10:45 - Assessment and plan (1) Bacteremia due to Enterococcus Current Visit: Yes Status: Acute Assessment and plan: Blood culture drawn 09/08, resulted 09/09 with VRE 05/08 set Started on Zyvox 09/09., Day 4 Continue Zyvox Leukocytosis resolved and patient is clinically improving Blood cultures X2 drawn 09/11 prelim negative Patient has a Right IJ CVC placed 09/07 repeat blood cultures today Patient is afebrile No stigmata of endocarditis (2) Acute and chronic respiratory failure ([id number]) Current Visit: Yes Status: Acute Assessment and plan: Secondary to COPDE/CHFE/Afib. patient uses 2l NC still requiring BiPAP at night. continue nebs, lopressor q6hr. decrease TPN volume to 60 ml/hr. holding lasix due to elle. close monitor. check CXR. Qualifiers: Respiratory failure complication: hypoxia Qualified Code(s): J96.21 - Acute and chronic respiratory failure with hypoxia (3) Acute kidney injury superimposed on CKD Current Visit: Yes Status: Acute Assessment and plan: s/p Right CVC and HD 09/07, 09/08, 09/09 Continue to hold lasix Nephrology following, appreciate input (4) Angiodysplasia of colon Current Visit: Yes Status: Acute (5) Atrial fibrillation with RVR Current Visit: Yes Status: Acute Assessment and plan: 09/11 she developed Refractory Aflutter requiring cardizem drip, cardiology was consulted HR now controlled on cardizem drip, discontinued increase lopressor 7.5 IV q 6hr Patient is still NPO Hx of GI bleed, discussed with Dr. Yost and Dr. Moy, started on heparin drip- benefits outweigh risks at this time (6) CHF (congestive heart failure) Current Visit: Yes Status: Chronic Assessment and plan: plan as above Qualifiers: Congestive heart failure type: diastolic Congestive heart failure chronicity: chronic Qualified Code(s): I50.32 - Chronic diastolic (congestive ) heart failure (7) CKD (chronic kidney disease) stage 4, GFR 15-29 ml/min Current Visit: Yes Status: Chronic Assessment and plan: As in ELLE on CKD (8) Diabetes mellitus Current Visit: Yes Status: Chronic Assessment and plan: Hyperglycemia possibly secondary to Starting TPN continue insulin drip and monitor FS q1h till stable Qualifiers: Diabetes mellitus type: type 2 Diabetes mellitus complication status: with kidney complications Diabetes mellitus complication detail: with chronic kidney disease Diabetes mellitus senior care insulin use: unspecified senior care insulin use status Chronic kidney disease stage: stage 4 (severe) Qualified Code(s): E11.22 - Type 2 diabetes mellitus with diabetic chronic kidney disease ; N18.4 - Chronic kidney disease, stage 4 (severe) (9) GIB (gastrointestinal bleeding) Current Visit: Yes Status: Acute Assessment and plan: Secondary to colonic angiodysplasia in the setting of anticoagulation s/p hemicolectomy POD 7, Surgery following Appreciate surgery input. may dc NGT today No recurrent bleeds Acute blood loss from surgery, improved after 2 units PRBCS Continue TPN for nutrition Monitor Lipid panel Continue follow up Qualifiers: GI bleed type/associated pathology: unspecified gastrointestinal hemorrhage type Qualified Code(s): K92.2 - Gastrointestinal hemorrhage, unspecified - Subjective Interval history: patient is sleeping but arouses easily and answers all questions. she has mild cough with shortness of breath. - Constitutional Vitals: Temp Pulse Resp BP Pulse Ox 100.2 F H 108 20 157/70 95 09/13/16 07:13 09/13/16 07:13 09/13/16 08:07 09/13/16 07:13 09/13/16 08:07 General appearance: Present: cooperative, A&O X 3, pleasant, no acute distress, obese, answers questions appropriately - Respiratory Respiratory exam: Present: decreased breath sounds - Cardiovascular Cardiovascular exam: Present: tachycardia - GI/Abdominal GI/Abdominal exam: Present: normal bowel sounds, soft. Absent: distended, tenderness - Extremities Exam Extremities exam: Present: pedal edema - Neurological Exam Neurological exam: Present: alert, strengths equal and symetr throughout. Absent: facial droop, speech deficit - Skin Skin exam: Present: petechiae, rash (very small erythmatous macules on arms) Internal Medicine: Result - Labs CBC & Chem 7: 09/13/16 04:25 09/13/16 04:25 Labs: Short CBC 09/12/16 09/13/16 09/13/16 Range/Units 11:55 00:30 04:25 WBC 10.1 9.1 (4.3-11.1) K/mcL Hgb 8.4 L 8.7 L 8.6 L (11.5-15.4) g/dL Hct 25.3 L 26.7 L 26.0 L (35.3-44.9) % Plt Count 106 L 102 L (140-400) K/mcL Neutrophils # 8.2 (1.6-8.9) K/mcL BMP 09/13/16 04:25 Sodium 136 D Potassium 3.1 L Chloride 101 Carbon Dioxide 29 BUN 30 H D Creatinine 1.97 H Glucose 111 H Calcium 8.3 L - ABG Interpretation ABG results: PT/INR, D-dimer PT 9.4 Seconds (9.4-12.1) 09/12/16 11:55 - VTE Documentation of Mechanical Device: Intermittent pneumatic compression device Consult Discharge Plan - Plan Referrals: Edith Peña CNP [Advanced Practice Nurse] - 09/26/16 10:15 am Kj Yost MD [Partnered Physician] - Therese Garcia CNP [Primary Care Provider] - 09/15/16 9:00 am () Prudence Escobedo MD [Partnered Physician] - 10/11/16 3:50 pm ()
[2016-09-13] MEDS: Heparin 25,000 UNIT/500 ML D5W 25,000 UNIT/500 ML MLS IVC SCH (12:54)
[2016-09-13 13:39] LABS: Bilirubin,Urine Negative (Negative); Blood,Urine Small (Negative); Clarity,Urine Cloudy (Clear); Color,Urine Yellow (Yellow); Glucose,Urine (UA) Normal (Normal); Ketones,Urine Negative (Negative); Leukocyte Esterase,Urine Small (Negative); Nitrite,Urine Negative (Negative); Protein,Urine 100 mg/dL (Neg-Trace); Specific Gravity,Urine 1.012 (1.010-1.025); Urobilinogen,Urine Normal (Normal)
[2016-09-13 13:41] LABS: Bacteria,Urine None Seen per hpf (None-Few); Hyaline Casts,Urine None Seen per lpf (None-Few); Squamous Epithelial Cell,Urine Many per lpf (None-Few); WBC,Urine 15-30 per hpf (0-3)
[2016-09-13 13:48] LABS: RBC,Urine 0-3 per hpf (0-3); Yeast,Urine Many per hpf (None Seen)
[2016-09-13 14:00] LABS: Activated Partial Thrombo Time 145.2 Seconds (26.0-36.0)
[2016-09-13 14:09] LABS: Heparin anti-factor XA UFH 1.09 IU/mL (0.30-0.70)
[2016-09-13] MEDS ORDERED: Clinimix E 5%-20% SOLUTION 2,000 ML with MVI, adult with vitamin K 10 ML, Magnesium S... IVC SCH (17:00)
[2016-09-13] MEDS: *HR* Acetaminophen w/Cod 300-30 mg 1 TAB TABLET PO PRN (19:57)
[2016-09-13 21:21] LABS: ABG HCO3 27.2 mEQ/L (21-27); ABG Oxygen Saturation 95 % (95-98); ABG PCO2 45 mmHg (35-45); ABG PH 7.39 pH Units (7.32-7.45); ABG PO2 79 mmHg (85-104); ABG TCO2 28.6 mEq/L (20-26)
[2016-09-13 21:22] LABS: Blood Gas FiO2 44 %
[2016-09-14] MEDS: Ipratropium/Albuterol Neb 3 ML IH SCH ×6 (00:18→20:29)
[2016-09-14] MEDS: *HR* LORazepam 2 MG/ML VIAL IVP PRN ×2 (03:06→21:04)
[2016-09-14 03:16] LABS: Red Cell Distribution Width 15.8 % (11.5-14.5)
[2016-09-14 03:18] LABS: Hematocrit 23.2 % (35.3-44.9); Hemoglobin 7.4 g/dL (11.5-15.4); Immature Platelets 6.3 % (1.1-6.1); Mean Corpuscular HGB Conc 31.9 g/dL (31.6-35.5); Mean Corpuscular Hemoglobin 27.8 pg (28.0-33.3); Mean Corpuscular Volume 87.2 fL (83.0-100.0); Mean Platelet Volume 11.2 fL (9.4-12.4); Monocytes # 0.1 K/mcL (0.0-1.3); Red Blood Count 2.66 M/mcL (3.82-4.97)
[2016-09-14 03:28] LABS: Calcium 8.1 mg/dL (8.6-10.8); Magnesium 1.3 mg/dL (1.6-2.6); Potassium 3.5 mEq/L (3.5-4.5)
[2016-09-14 03:31] LABS: Phosphorous 4.5 mg/dL (2.3-4.7)
[2016-09-14 03:39] LABS: Activated Partial Thrombo Time 279.4 Seconds (26.0-36.0)
[2016-09-14 03:44] LABS: Platelet Count 80 K/mcL (140-400)
[2016-09-14 03:45] LABS: Heparin anti-factor XA UFH 1.06 IU/mL (0.30-0.70)
[2016-09-14 03:46] LABS: Large Platelets Present (Not Present); Lymphocytes # 0.3 K/mcL (0.6-4.6); Neutrophils # 6.4 K/mcL (1.6-8.9); Platelet Estimate Decreased (Normal); Toxic Granulation Present (Not Present)
[2016-09-14 03:47] LABS: Basophilic Stippling 2+ (Not Present); Polychromasia 2+ (Not Present)
[2016-09-14] MEDS: *HR* Acetaminophen w/Cod 300-30 mg 1 TAB TABLET PO PRN ×2 (04:01→17:03)
[2016-09-14] MEDS: Insulin Human Regular 100 UNIT in 0.9 % Sodium Chloride 100 ML IVC SCH ×2 (04:52→15:30)
[2016-09-14] MEDS: *HR* Metoprolol 5 MG/5 ML VIAL IVP SCH ×4 (06:32→23:58)
--- NOTE | 2016-09-14 07:39 | General Surgery Progress Note ---
Date of Encounter: 09/14/16 Time of Encounter: 07:37 - Assessment and Plan (1) Angiodysplasia of colon Current Visit: Yes Status: Acute POD #8 Extended right hemicolectomy. Lysis of adhesions times [address] Moy Patient's daughter reports multiple BM, bowel sounds present. NG removed yesterday. Patient remains febrile today, Temp 100.3. Patient has wet cough with audible wheezing, diffuse wheezes and rhonchi on lung exam. Patient tolerating clear liquids, but eating very little still. Discussed encouraging oral intake with her daughter. Plan: -Encourage oral intake -Encourage incentive spirometry when up. -Advance diet to clear liquid, 300cc per shift -Maintain Watkins catheter for strict I and O's -Daily dressing change -PPI therapy daily (2) Acute and chronic respiratory failure ([id number]) Current Visit: Yes Status: Acute IS every 1 hour while awake Aggressive pulmonary toilet Continue aerosol treatments as ordered Wean oxygen as tolerated Management per medicine service Qualifiers: Respiratory failure complication: hypoxia Qualified Code(s): J96.21 - Acute and chronic respiratory failure with hypoxia (3) Acute kidney injury superimposed on CKD Current Visit: Yes Status: Acute SCr 2.54>1.97, GFR 18 Plan: IV fluids Avoid nephrotoxic medications Continue Watkins catheter for strict I's and O's Nephrology following- hemodialysis (4) Insulin dependent type 2 diabetes mellitus Current Visit: Yes Status: Chronic Glucose more controlled: 60's-180's Continue to manage per medicine team (5) DVT prophylaxis Current Visit: No Status: Acute Continue EPCDs to bilateral lower extremities for DVT prophylaxis Continue heparin 5,000 units SQ twice daily for DVT prophylaxis Subjective Patient reports: still having pain, tolerating liquids well, flatus, bowel movement, shortness of breath, fever Narrative: Patient seen and examined. Daughter states that patient has been having difficulty breathing, requiring the BiPAP. They have struggled with pain and anxiety control, patient required seroquel and ativan after tylenol 3 wore off last night. Patient remains febrile with wheezing and rhonchi on exam. She has had some polish ice, which she tolerated. Discussed encouraging more oral intake with the daughter so that her diet can be advanced. Objective Vital Signs - Last 8 Hours Temp Pulse Resp BP Pulse Ox 09/14/16 04:43 27 94 09/14/16 03:30 100.3 F H 107 19 146/66 95 09/14/16 00:19 23 97 09/13/16 23:38 99.8 F H 100 19 132/55 96 Intake and Output 09/13/16 09/13/16 09/14/16 15:59 23:59 07:59 Intake Total 586.9 / 586.9 2091.8 / 2091.8 716.4 / 716.4 Output Total 673 / 673 350 / 350 200 / 200 Balance -86.1 / -86.1 1741.8 / 1741.8 516.4 / 516.4 Intake: IV Fluids 526.9 / 526.9 2091.8 / 2091.8 496.4 / 496.4 Heparin 25,000 UNIT/500 139 / 139 106 / 106 219 / 219 ML D5W 25,000 unit In 500 ml @ 12 UNIT/KG/HR 23. 184 mls/hr IVC .[id number] [facility] Rx#:[id number] HumuLIN R 100 UNIT In 0. 33.9 / 33.9 67.8 / 67.8 27.4 / 27.4 9 % Sodium Chloride 100 ML @ 5 UNIT/HR 5.05 mls/ hr IVC [facility] Rx#: [id number] Clinimix 5%-20% SOLUTION 0 / 0 2,000 ML @ 70 mls/hr IVC .Q24H [facility] with M.v.i. Adult 10 ml with Sodium Chloride 24 MEQ with Sodium Acetate 46 MEQ with Calcium Gluconate 9 MEQ with Magnesium Sulfate 10 [facility] Rx#: [id number] Intralipid 20% 250 ML @ 250 / 250 21 mls/hr IVPB DAILY@1700 [facility] Rx#:[id number] Zyvox Premix 600mg/300mL 300 / 300 300 / 300 600 mg In 300 ml @ 150 mls/hr IVPB Q12HR [facility] Rx# :[id number] Reglan 20 MG In 0.9 % 54 / 54 Sodium Chloride 50 ML @ 108 mls/hr IVPB Q8H [facility] Rx#:[id number] Potassium Chloride 20 mEq 200 / 200 /100 mL 20 meq In 100 ml @ 50 mls/hr IVPB Q2H [facility] Rx#:[id number] Oral 60 / 60 220 / 220 Output: Stool 1 / 1 Gastric Tube Lavage 0 / 0 Amount Left Nare 0 / 0 Catheter 397 / 397 350 / 350 200 / 200 Gastric Drainage 275 / 275 Other: Stool Size Moderate Weight 97.8 kg Blood Glucose* 128 93 125 Patient Weight 09/14/16 23:59 Weight 97.8 kg - General physical appearance moderate distress, moderate pain, chronically ill, obese - Respiratory crackles: bilateral, wheezing: bilateral - Cardiovascular Cardiovascular exam: Present: tachycardia - Abdomen Abdomen: Present: bowel sounds present, soft, non tender - Incision Incision: Present: clean and dry - Integumentary no rash, other (warm and dry) - Labs 09/14/16 03:00 09/14/16 03:00 Diabetes panel 09/14/16 09/14/16 Range/Units 03:00 03:00 Sodium 132 L (136-145) mEq/L Potassium 3.5 (3.5-4.5) mEq/L Chloride 97 L (98-109) mEq/L Carbon Dioxide 26 (19-29) mEq/L BUN 47 H D (7-20) mg/dL Creatinine 2.54 H (0.57-1.11) mg/dL Glucose 196 H (70-99) mg/dL Calcium 8.1 L (8.6-10.8) mg/dL Triglycerides 120 (< 150) mg/dL Calcium panel 09/14/16 09/14/16 Range/Units 03:00 03:00 Calcium 8.1 L (8.6-10.8) mg/dL Phosphorus 4.5 D (2.3-4.7) mg/dL Pituitary panel 09/14/16 Range/Units 03:00 Sodium 132 L (136-145) mEq/L Potassium 3.5 (3.5-4.5) mEq/L Chloride 97 L (98-109) mEq/L Carbon Dioxide 26 (19-29) mEq/L BUN 47 H D (7-20) mg/dL Creatinine 2.54 H (0.57-1.11) mg/dL Glucose 196 H (70-99) mg/dL Calcium 8.1 L (8.6-10.8) mg/dL Adrenal panel 09/14/16 Range/Units 03:00 Sodium 132 L (136-145) mEq/L Potassium 3.5 (3.5-4.5) mEq/L Chloride 97 L (98-109) mEq/L Carbon Dioxide 26 (19-29) mEq/L BUN 47 H D (7-20) mg/dL Creatinine 2.54 H (0.57-1.11) mg/dL Glucose 196 H (70-99) mg/dL Calcium 8.1 L (8.6-10.8) mg/dL - VTE Documentation of Mechanical Device: Intermittent pneumatic compression device Consult Discharge Plan - Plan Referrals: Edith Peña CNP [Advanced Practice Nurse] - 09/26/16 10:15 am Kj Yost MD [Partnered Physician] - Therese Garcia CNP [Primary Care Provider] - 09/15/16 9:00 am () Prudence Escobedo MD [Partnered Physician] - 10/11/16 3:50 pm () - Attending Attestation I examined this patient and my medical decision-making was reviewed with the REPORTING MANAGER/PA/Advanced Practice Nurse/Resident Physician. I agree with the documented findings, disposition and treatment plan as described except to the extent set forth below. The patient is seen and evaluated on morning rounds. She has good bowel sounds. Her lungs sound just terrible. She has distant rhonchi in both lung schwarz and has decreased blood oxygen on CPAP. We will continue maximum supportive care. We should be able to advance her diet. If she is unable to take by mouth we can always place a PEG tube Sukumar Moy MD FACS
[2016-09-14] MEDS ORDERED: Magnesium Sulfate 2 GM in D5% in Water 100 ML IVPB ONE (07:56)
[2016-09-14] MEDS: *HR* HYDROmorphone (PF) 1 MG/ML SYRINGE IVP PRN ×2 (08:49→18:32)
[2016-09-14] MEDS ORDERED: 0.9 % Sodium Chloride 250 ML IVC PRN (08:52)
[2016-09-14] MEDS ORDERED: *HR* Heparin 10,000 UNIT/10 ML VIAL IV PRN (08:52)
[2016-09-14] MEDS: MethylPREDNISolone 40 MG/ML VIAL IVP SCH (08:53)
[2016-09-14] MEDS: Pantoprazole 40 MG VIAL IVP SCH (08:53)
[2016-09-14] MEDS ORDERED: *HR* Propofol 200 MG/20 ML VIAL IVP ONE (09:06)
[2016-09-14] MEDS ORDERED: Lidocaine -MPF 2% 5 ML VIAL INFILT ONE (09:06)
[2016-09-14] MEDS: Ondansetron 4 MG/2 ML VIAL IVP PRN ×2 (09:53→17:13)
[2016-09-14] MEDS ORDERED: 0.9 % Sodium Chloride 2,000 ML ONE (10:35)
--- NOTE | 2016-09-14 13:39 | Nephrology Progress Note ---
Date of Encounter: 09/14/16 - Assessment and Plan (1) Acute kidney injury superimposed on CKD Current Visit: Yes Status: Acute SCr improved at 1.97, GFR 25 after HD yesterday. Will hold off HD today and monitor for signs of renal recovery HD as needed but tentatively tomorrow UOP documented at 1425cc in the past 24hrs which if accurate is a drastic improvement and is hopeful for renal recovery Continue to avoid nephrotoxins if possible (2) Anemia Current Visit: Yes Status: Chronic Hgb low but fairly stable, will monitor Qualifiers: Anemia type: iron deficiency Iron deficiency anemia type: unspecified iron deficiency Qualified Code(s): D50.9 - Iron deficiency anemia, unspecified (3) CKD (chronic kidney disease) stage 4, GFR 15-29 ml/min Current Visit: Yes Status: Chronic Baseline GFR typically low 20s but several bouts of recurrent AKIs noted in the past few months making recovery more and more unlikely as days past by (4) Hyperkalemia Current Visit: No Status: Acute Resolved after 3 consecutive HD sessions and now on the low side. (5) Hypokalemia Current Visit: Yes Status: Acute Potassium still low after high K bath with HD yesterday and potassium added to TPN, will monitor for now and consider adding more to TPN later today Subjective Principal diagnosis: ELLE on CKD, COPD, PAF Interval history: Interim noted, pt seen and examined. s/p HD yesterday Objective - Vital Signs Vital signs: Vital Signs Temp Pulse Resp BP Pulse Ox 09/14/16 13:18 98.6 F 97 18 137/58 95 09/14/16 13:02 99.3 F 81 18 108/71 09/14/16 12:47 98.6 F 89 18 106/63 09/14/16 12:35 101/57 09/14/16 12:20 98/57 09/14/16 12:05 94/48 09/14/16 11:50 99/52 09/14/16 11:35 98.1 F 18 100/51 09/14/16 08:30 79 95 09/14/16 08:00 16 95 09/14/16 07:33 99.3 F 81 25 121/53 99 09/14/16 04:43 27 94 09/14/16 03:30 100.3 F H 107 19 146/66 95 09/14/16 00:19 23 97 09/13/16 23:38 99.8 F H 100 19 132/55 96 09/13/16 20:52 22 97 09/13/16 19:28 100.7 F H 91 27 160/78 99 09/13/16 18:20 28 168/81 98 09/13/16 16:32 111 96 09/13/16 16:13 98.5 F 105 20 168/81 98 09/13/16 16:02 18 98 09/13/16 15:26 110 96 Intake and Output 09/13/16 09/14/16 09/14/16 23:59 07:59 15:59 Intake Total 2091.8 / 2091.8 716.4 / 716.4 1820.1 / 1820.1 Output Total 350 / 350 200 / 200 Balance 1741.8 / 1741.8 516.4 / 516.4 1820.1 / 1820.1 Intake: IV Fluids 2091.8 / 2091.8 496.4 / 496.4 170.1 / 170.1 Heparin 25,000 UNIT/500 106 / 106 219 / 219 76.2 / 76.2 ML D5W 25,000 unit In 500 ml @ 12 UNIT/KG/HR 23. 184 mls/hr IVC .[id number] [facility] Rx#:[id number] HumuLIN R 100 UNIT In 0. 67.8 / 67.8 27.4 / 27.4 93.9 / 93.9 9 % Sodium Chloride 100 ML @ 5 UNIT/HR 5.05 mls/ hr IVC [facility] Rx#: [id number] Intralipid 20% 250 ML @ 250 / 250 21 mls/hr IVPB DAILY@1700 [facility] Rx#:[id number] Zyvox Premix 600mg/300mL 300 / 300 600 mg In 300 ml @ 150 mls/hr IVPB Q12HR [facility] Rx# :[id number] Potassium Chloride 20 mEq 200 / 200 /100 mL 20 meq In 100 ml @ 50 mls/hr IVPB Q2H [facility] Rx#:[id number] Oral 220 / 220 0 / 0 Blood Product 1050 / 1050 Rbcs Leuko Poor As-1 350 / 350 Unit [id number] Rbcs Leuko Poor As-1 700 / 700 Unit [id number] Intake, Rinseback and 600 / 600 Flushes Output: Catheter 350 / 350 200 / 200 Other: Meal Breakfast Percent of Meal Consumed 0% Weight 97.8 kg Blood Glucose* 93 156 80 Hemodialysis Net Fluid 1457 Removed (mL) Patient Weight 09/14/16 23:59 Weight 97.8 kg - Lab 09/14/16 03:00 09/14/16 03:00 Most recent lab results ABG pH 7.39 pH Units (7.32-7.45) 09/13/16 21:19 ABG pCO2 45 mmHg (35-45) 09/13/16 21:19 ABG pO2 79 mmHg (85-104) L 09/13/16 21: ABG HCO3 27.2 mEQ/L (21-27) H 09/13/16 21:19 ABG O2 Saturation 95 % (95-98) 09/13/16 21:19 Calcium 8.1 mg/dL (8.6-10.8) L 09/14/16 03:00 Phosphorus 4.5 mg/dL (2.3-4.7) D 09/14/16 03:00 Magnesium 1.3 mg/dL (1.6-2.6) L 09/14/16 03:00 Urine Creatinine 40 mg/dL 08/25/16 13:19 Urine Sodium 30.0 mEq/L 08/25/16 13:19 Urine Total Protein 22 mg/dL (1-14) H 08/24/16 14:18 - VTE Documentation of Mechanical Device: Intermittent pneumatic compression device Consult Discharge Plan - Plan Referrals: Edith Peña CNP [Advanced Practice Nurse] - 09/26/16 10:15 am Kj Yost MD [Partnered Physician] - Therese Garcia CNP [Primary Care Provider] - 09/15/16 9:00 am () Prudence Escobedo MD [Partnered Physician] - 10/11/16 3:50 pm ()
[2016-09-14 14:13] LABS: Acinetobacter baumannii by PCR Not Detected (Not Detect); Candida albicans by PCR Not Detected (Not Detect); Candida glabrata by PCR Not Detected (Not Detect); Candida krusei by PCR Not Detected (Not Detect); Candida parapsilosis by PCR Not Detected (Not Detect); Candida tropicalis by PCR Not Detected (Not Detect); Enterococcus by PCR Not Detected (Not Detect); Escherichia coli by PCR Not Detected (Not Detect); Klebsiella oxytoca by PCR Not Detected (Not Detect); Klebsiella pneumoniae by PCR Not Detected (Not Detect); Pseudomonas aeruginosa by PCR Not Detected (Not Detect); Serratia marcescens by PCR Not Detected (Not Detect); Staphylococcus aureus by PCR Not Detected (Not Detect); Streptococcus agalactiae(B)PCR Not Detected (Not Detect); Streptococcus by PCR Not Detected (Not Detect); Streptococcus pneumoniae PCR Not Detected (Not Detect); Streptococcus pyogenes (A) PCR Not Detected (Not Detect); mecA Methicillin-Resist Gene ***DETECTED*** (Not Detect)
[2016-09-14] MEDS ORDERED: Clinimix E 5%-20% SOLUTION 2,000 ML with MVI, adult with vitamin K 10 ML, Magnesium S... IVC SCH (17:00)
[2016-09-14] MEDS: Heparin 25,000 UNIT/500 ML D5W 25,000 UNIT/500 ML MLS IVC SCH (17:48)
--- NOTE | 2016-09-14 20:22 | Internal Med Progress Note ---
Date of Encounter: 09/14/16 Time of Encounter: 16:00 - Assessment and plan (1) Bacteremia due to Enterococcus Current Visit: Yes Status: Acute Assessment and plan: Blood culture drawn 09/08, resulted 09/09 with VRE 05/08 set Patient has a Right dialysis CVC placed 09/07 Blood cultures X2 09/11 prelim negative blood cultures x1 from Right Dialysis CVC 09/13 growing GPC staph blood cultures x1 Given positive blood cultures for GPC and CT chest findings suggestive of septic emboli, will continue Zyvox (start date 09/09), repeat blood cultures today from Dialysis catheter and order VIC. (2) Acute and chronic respiratory failure ([id number]) Current Visit: Yes Status: Acute Assessment and plan: Secondary to COPDE/CHFE/Afib and suspected septic emboli in lungs. patient uses 2l NC Ct Chest 09/13 revealed bilateral lower lobe septic emboli as well as multiple small nodular right lung lesions, 1 is a cavitary nodule. suspicious for septic emboli. Still requiring BiPAP at night. Continue nebs, zyvox, oxygen supplementation 6L open mask and BIPAP as needed. holding lasix due to elle. Qualifiers: Respiratory failure complication: hypoxia Qualified Code(s): J96.21 - Acute and chronic respiratory failure with hypoxia (3) Acute kidney injury superimposed on CKD Current Visit: Yes Status: Acute Assessment and plan: s/p Right CVC and HD 09/07, 09/08, 09/09, 09/12 Continue to hold lasix Nephrology following, appreciate input: HD today. urine output slowly improving. (4) GIB (gastrointestinal bleeding) Current Visit: Yes Status: Acute Assessment and plan: Secondary to colonic angiodysplasia in the setting of anticoagulation s/p hemicolectomy 09/06 POD 8, Appreciate surgery input. Received 2 units PRBCS post-surgery 09/08 Hgb dropped to 7.4, transfused 2 units of PRBC during dialysis today. close monitor. Qualifiers: GI bleed type/associated pathology: unspecified gastrointestinal hemorrhage type Qualified Code(s): K92.2 - Gastrointestinal hemorrhage, unspecified (5) Angiodysplasia of colon Current Visit: Yes Status: Acute Assessment and plan: plan as GI bleed (6) Atrial fibrillation with RVR Current Visit: Yes Status: Acute Assessment and plan: 09/11 she developed Refractory Aflutter requiring cardizem drip, cardiology was consulted HR better controlled on IV metoprolol. will transition to oral lopressor in am. Hgb dropped to 7.4 and fecal occult blood is positive, stop heparin drip. (7) CHF (congestive heart failure) Current Visit: Yes Status: Chronic Assessment and plan: plan as above Qualifiers: Congestive heart failure type: diastolic Congestive heart failure chronicity: chronic Qualified Code(s): I50.32 - Chronic diastolic (congestive ) heart failure (8) CKD (chronic kidney disease) stage 4, GFR 15-29 ml/min Current Visit: Yes Status: Chronic Assessment and plan: As in ELLE on CKD (9) Diabetes mellitus Current Visit: Yes Status: Chronic Assessment and plan: Hyperglycemia possibly secondary to Starting TPN accucheck in the 100s at 3 units of insulin drip. decrease TPN to 40 and may stop in AM if patient has a good oral intake. 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 she - Constitutional Vitals: Temp Pulse Resp BP Pulse Ox 98.7 F 107 18 149/62 96 09/14/16 19:36 09/14/16 19:36 09/14/16 19:36 09/14/16 19:36 09/14/16 19:36 General appearance: Present: cooperative, A&O X 3, pleasant, no acute distress, obese, answers questions appropriately - Respiratory Respiratory exam: Present: decreased breath sounds (at left lung base) - Cardiovascular Cardiovascular exam: Present: RRR - GI/Abdominal GI/Abdominal exam: Present: normal bowel sounds, soft, tenderness (mild diffuse tenderness). Absent: distended - Extremities Exam Extremities exam: Present: pedal edema (swelling in all four extremities) - Neurological Exam Neurological exam: Present: alert Internal Medicine: Result - Labs CBC & Chem 7: 09/14/16 15:39 09/14/16 03:00 Labs: Short CBC 09/14/16 09/14/16 Range/Units 03:00 15:39 WBC 6.8 (4.3-11.1) K/mcL Hgb 7.4 L (11.5-15.4) g/dL Hct 23.2 L (35.3-44.9) % Plt Count 80 L 70 L (140-400) K/mcL Neutrophils # 6.4 (1.6-8.9) K/mcL BMP 09/14/16 03:00 Sodium 132 L Potassium 3.5 Chloride 97 L Carbon Dioxide 26 BUN 47 H D Creatinine 2.54 H Glucose 196 H Calcium 8.1 L - ABG Interpretation ABG results: ABG ABG pH 7.39 pH Units (7.32-7.45) 09/13/16 21:19 ABG pCO2 45 mmHg (35-45) 09/13/16 21:19 ABG pO2 79 mmHg (85-104) L 09/13/16 21:19 ABG O2 Saturation 95 % (95-98) 09/13/16 21:19 PT/INR, D-dimer PT 9.4 Seconds (9.4-12.1) 09/12/16 11:55 - Impressions Impressions Chest CT 09/13/16 20:40 IMPRESSION: Bilateral lower lobe airspace disease as well as multiple small nodular right lung lesions which appear to be inflammatory with at least 1 cavitary nodule. These are most likely all inflammatory. Septic emboli is also considered. There is moderate limitation due to patient respiratory motion. D/ / Amandeep Alcala MD / Amandeep Alcala MD Interpreting Provider: Amandeep Alcala MD - VTE Documentation of Mechanical Device: Intermittent pneumatic compression device Consult Discharge Plan - Plan Referrals: Edith Peña CNP [Advanced Practice Nurse] - 09/26/16 10:15 am Kj Yost MD [Partnered Physician] - Therese Garcia CNP [Primary Care Provider] - 09/15/16 9:00 am () Prudence Escobedo MD [Partnered Physician] - 10/11/16 3:50 pm ()
[2016-09-15] MEDS: Ipratropium/Albuterol Neb 3 ML IH SCH ×6 (00:26→20:52)
[2016-09-15] MEDS: *HR* Dextrose 50 % in Water (Syg) 50 ML SYRINGE IVP PRN ×2 (00:42→12:24)
[2016-09-15] MEDS ORDERED: *HR* LORazepam 2 MG/ML VIAL IVP ONE (00:56)
[2016-09-15] MEDS: *HR* Acetaminophen w/Cod 300-30 mg 1 TAB TABLET PO PRN ×2 (00:59→13:09)
[2016-09-15] MEDS: Insulin Human Regular 100 UNIT in 0.9 % Sodium Chloride 100 ML IVC SCH (04:41)
[2016-09-15 05:20] LABS: Basophils % 0.2 %; Hemoglobin 8.5 g/dL (11.5-15.4)
[2016-09-15 05:22] LABS: Eosinophils # 0.1 K/mcL (0.0-0.6); Eosinophils % 0.9 %; Hematocrit 26.8 % (35.3-44.9); Immature Granulocytes % 4.5 % (0-4); Immature Platelets 7.6 % (1.1-6.1); Lymphocytes # 0.4 K/mcL (0.6-4.6); Mean Corpuscular HGB Conc 31.7 g/dL (31.6-35.5); Mean Corpuscular Hemoglobin 27.7 pg (28.0-33.3); Mean Corpuscular Volume 87.3 fL (83.0-100.0); Mean Platelet Volume 10.2 fL (9.4-12.4); Monocytes # 0.2 K/mcL (0.0-1.3); Monocytes % 2.6 %; Neutrophils # 4.9 K/mcL (1.6-8.9); Red Blood Count 3.07 M/mcL (3.82-4.97); Red Cell Distribution Width 15.7 % (11.5-14.5); Segmented Neutrophils % 84.8 %
[2016-09-15 05:38] LABS: Magnesium 1.7 mg/dL (1.6-2.6); Phosphorous 3.5 mg/dL (2.3-4.7)
[2016-09-15 05:39] LABS: Calcium 7.9 mg/dL (8.6-10.8); Potassium 3.6 mEq/L (3.5-4.5)
[2016-09-15 06:02] LABS: Platelet Count 68 K/mcL (140-400)
[2016-09-15 06:04] LABS: Platelet Estimate Decreased (Normal)
[2016-09-15] MEDS: *HR* Metoprolol 5 MG/5 ML VIAL IVP SCH ×2 (06:47→12:57)
[2016-09-15] MEDS: *HR* HYDROmorphone (PF) 1 MG/ML SYRINGE IVP PRN (07:40)
[2016-09-15] MEDS: predniSONE 5 MG TABLET PO SCH (08:38)
[2016-09-15] MEDS: Pantoprazole 40 MG VIAL IVP SCH (08:38)
--- NOTE | 2016-09-15 08:47 | General Surgery Progress Note ---
Date of Encounter: 09/15/16 Time of Encounter: 08:42 - Assessment and Plan (1) Angiodysplasia of colon Current Visit: Yes Status: Acute POD #9 Extended right hemicolectomy. Lysis of adhesions times [address] Moy Yesterday she had positive blood cultures growing gram-positive cocci. Imaging revealed a vegetation on the end of her temporary hemodialysis line. CT scan of the chest also shows possible septic emboli. Patient has mild abdominal tenderness, incision is clean and dry. Patient's daughter reports multiple BM, bowel sounds present. Patient is afebrile today, but tachycardic. Patient has wet cough with audible wheezing, diffuse wheezes and rhonchi on lung exam. No Gastric drainage was recorded yesterday in the I/O charting. Patient tolerating clear liquids, but eating very little still. Discussed encouraging oral intake with her daughter. It will be very important to focus on the patient's nutrition status today. Plan: -Encourage oral intake -Encourage incentive spirometry when up. -Advance diet to clear liquid, 300cc per shift -Maintain Watkins catheter for strict I and O's -Daily dressing change -PPI therapy daily (2) Acute and chronic respiratory failure ([id number]) Current Visit: Yes Status: Acute IS every 1 hour while awake Aggressive pulmonary toilet Continue aerosol treatments as ordered Wean oxygen as tolerated Management per medicine service Qualifiers: Respiratory failure complication: hypoxia Qualified Code(s): J96.21 - Acute and chronic respiratory failure with hypoxia (3) Acute kidney injury superimposed on CKD Current Visit: Yes Status: Acute SCr 1.97<2.54, GFR 25 Plan: IV fluids Avoid nephrotoxic medications Continue Watkins catheter for strict I's and O's Nephrology following- hemodialysis (4) Insulin dependent type 2 diabetes mellitus Current Visit: Yes Status: Chronic Glucose less controlled yesterdays, was in the 200's and 300's Continue to manage per medicine team (5) DVT prophylaxis Current Visit: No Status: Acute Continue EPCDs to bilateral lower extremities for DVT prophylaxis Continue heparin 5,000 units SQ twice daily for DVT prophylaxis Subjective Narrative: Patient was seen and examined. Yesterday she had positive blood cultures growing gram-positive cocci. Imaging revealed a vegetation on the end of her temporary hemodialysis line. CT scan of the chest also shows she may have septic emboli. Patient has mild abdominal tenderness, incision is clean and dry. Patient is having bowel movements are brown. She is eating a small amount. Objective Vital Signs - Last 8 Hours Temp Pulse Resp BP Pulse Ox 09/15/16 08:09 100.0 F H 110 21 121/66 91 09/15/16 04:20 24 102/51 98 09/15/16 03:46 98.3 F 105 20 102/51 97 09/15/16 03:30 98.3 F 105 20 102/51 97 Intake and Output 09/14/16 09/15/16 09/15/16 23:59 07:59 15:59 Intake Total 767.8 / 767.8 291 / 291 0 / 0 Balance 767.8 / 767.8 291 / 291 0 / 0 Intake: IV Fluids 467.8 / 467.8 291 / 291 0 / 0 Heparin 25,000 UNIT/500 98.8 / 98.8 ML D5W 25,000 unit In 500 ml @ 12 UNIT/KG/HR 23. 184 mls/hr IVC .[id number] KEILA Rx#:[id number] HumuLIN R 100 UNIT In 0. 69.0 / 69.0 32 / 32 0 / 0 9 % Sodium Chloride 100 ML @ 5 UNIT/HR 5.05 mls/ hr IVC CONT KEILA Rx#: [id number] Zyvox Premix 600mg/300mL 300 / 300 600 mg In 300 ml @ 150 mls/hr IVPB Q12HR KEILA Rx# :[id number] Oral 300 / 300 Other: Meal Lunch Percent of Meal Consumed 100% Blood Glucose* 102 100 178 - General physical appearance moderate distress, moderate pain, chronically ill, obese - ENT atraumatic, normocephalic - Neck Neck exam: trachea midline, other (Temp HD catheter in place left neck) - Respiratory crackles: bilateral, wheezing: bilateral - Cardiovascular Cardiovascular exam: Present: tachycardia - Abdomen Abdomen: Present: bowel sounds present, soft, non tender - Incision Incision: Present: clean and dry. Absent: erythema - Labs 09/16/16 03:10 09/16/16 03:10 Diabetes panel 09/15/16 Range/Units 04:30 Sodium 133 L (136-145) mEq/L Potassium 3.6 (3.5-4.5) mEq/L Chloride 96 L (98-109) mEq/L Carbon Dioxide 26 (19-29) mEq/L BUN 33 H D (7-20) mg/dL Creatinine 1.97 H (0.57-1.11) mg/dL Glucose 142 H (70-99) mg/dL Calcium 7.9 L (8.6-10.8) mg/dL Calcium panel 09/15/16 09/15/16 Range/Units 04:30 04:30 Calcium 7.9 L (8.6-10.8) mg/dL Phosphorus 3.5 (2.3-4.7) mg/dL Pituitary panel 09/15/16 Range/Units 04:30 Sodium 133 L (136-145) mEq/L Potassium 3.6 (3.5-4.5) mEq/L Chloride 96 L (98-109) mEq/L Carbon Dioxide 26 (19-29) mEq/L BUN 33 H D (7-20) mg/dL Creatinine 1.97 H (0.57-1.11) mg/dL Glucose 142 H (70-99) mg/dL Calcium 7.9 L (8.6-10.8) mg/dL Adrenal panel 09/15/16 Range/Units 04:30 Sodium 133 L (136-145) mEq/L Potassium 3.6 (3.5-4.5) mEq/L Chloride 96 L (98-109) mEq/L Carbon Dioxide 26 (19-29) mEq/L BUN 33 H D (7-20) mg/dL Creatinine 1.97 H (0.57-1.11) mg/dL Glucose 142 H (70-99) mg/dL Calcium 7.9 L (8.6-10.8) mg/dL - VTE Documentation of Mechanical Device: Intermittent pneumatic compression device Consult Discharge Plan - Plan Referrals: Edith Peña CNP [Advanced Practice Nurse] - 09/26/16 10:15 am Kj Yost MD [Partnered Physician] - Therese Garcia CNP [Primary Care Provider] - 09/15/16 9:00 am () Prudence Escobedo MD [Partnered Physician] - 10/11/16 3:50 pm () - Attending Attestation I examined this patient and my medical decision-making was reviewed with the LEARNING SOLUTIONS SPECIALIST/PA/Advanced Practice Nurse/Resident Physician. I agree with the documented findings, disposition and treatment plan as described except to the extent set forth below. The patient is seen and evaluated on morning rounds. She is continuing to improve with dietary intake. It appears as though she has line sepsis and these lines were need to be removed. We will continue maximum supportive care. She appears to developed good gastrointestinal function. I did review the CAT scan today. The operative site looks very good. She may have a psoas muscle hypodense area. Sukumar Moy MD FACS
--- NOTE | 2016-09-15 11:11 | Nephrology Progress Note ---
Date of Encounter: 09/15/16 Time of Encounter: 11:06 - Assessment and Plan (1) Acute kidney injury superimposed on CKD Current Visit: Yes Status: Acute HD yesterday-Scr improved to 1.97, was 2.54 yesterday GFR 25, was 18 Only 200ml UOP yeterday Will see what kidney numbers look like tomorrow to decide if HD needed then (2) CKD (chronic kidney disease) stage 4, GFR 15-29 ml/min Current Visit: Yes Status: Chronic Baseline GFR low 20s Unknown yet if kidneys will recover from this ELLE Avoid nephrotoxins (3) Acute exacerbation of chronic obstructive airways disease Current Visit: Yes Status: Acute per primary team (4) Anemia Current Visit: Yes Status: Chronic Hgb 8.5 after receiving blood yesterday Stool occult blood positive Will defer to primary team Qualifiers: Anemia type: iron deficiency Iron deficiency anemia type: unspecified iron deficiency Qualified Code(s): D50.9 - Iron deficiency anemia, unspecified Subjective Principal diagnosis: ELLE on CKD, COPD, PAF Interval history: Patient seen and examined. Daughters at bedside; patient resting comfortably Objective - Vital Signs Vital signs: Vital Signs Temp Pulse Resp BP Pulse Ox 09/15/16 08:15 113 09/15/16 08:09 100.0 F H 110 21 121/66 91 09/15/16 04:20 24 102/51 98 09/15/16 03:46 98.3 F 105 20 102/51 97 09/15/16 03:30 98.3 F 105 20 102/51 97 09/15/16 00:26 20 96 09/14/16 23:50 99.1 F 102 20 111/52 97 09/14/16 20:29 20 94 09/14/16 19:36 98.7 F 107 18 149/62 96 09/14/16 16:00 106 09/14/16 15:56 16 95 09/14/16 15:35 98.3 F 18 126/70 09/14/16 15:11 98.4 F 104 22 133/77 93 09/14/16 14:35 112/70 09/14/16 14:20 120/66 09/14/16 14:05 113/66 09/14/16 13:51 98.7 F 87 18 135/82 95 09/14/16 13:50 109/66 09/14/16 13:36 98.7 F 84 18 117/84 95 09/14/16 13:35 117/57 09/14/16 13:21 98.8 F 97 18 122/59 95 09/14/16 13:20 137/58 09/14/16 13:18 98.6 F 97 18 137/58 95 09/14/16 13:05 115/71 09/14/16 13:02 99.3 F 81 18 108/71 09/14/16 12:50 109/61 09/14/16 12:47 98.6 F 89 18 106/63 09/14/16 12:35 101/57 09/14/16 12:20 98/57 09/14/16 12:05 94/48 09/14/16 12:00 90 09/14/16 11:50 99/52 09/14/16 11:35 98.1 F 18 100/51 Intake and Output 09/14/16 09/15/16 09/15/16 23:59 07:59 15:59 Intake Total 767.8 / 767.8 291 / 291 17.3 / 17.3 Balance 767.8 / 767.8 291 / 291 17.3 / 17.3 Intake: IV Fluids 467.8 / 467.8 291 / 291 17.3 / 17.3 Heparin 25,000 UNIT/500 98.8 / 98.8 ML D5W 25,000 unit In 500 ml @ 12 UNIT/KG/HR 23. 184 mls/hr IVC .[id number] KEILA Rx#:[id number] HumuLIN R 100 UNIT In 0. 69.0 / 69.0 32 / 32 17.3 / 17.3 9 % Sodium Chloride 100 ML @ 5 UNIT/HR 5.05 mls/ hr IVC CONT KEILA Rx#: [id number] Zyvox Premix 600mg/300mL 300 / 300 600 mg In 300 ml @ 150 mls/hr IVPB Q12HR KEILA Rx# :[id number] Oral 300 / 300 Other: Meal Lunch Percent of Meal Consumed 100% Blood Glucose* 102 100 153 - General Appearance General appearance: Present: obese EENT: Present: ATNC Neck: Present: supple Respiratory: Present: course breath sounds Cardiology: Present: no edema, rapid rhythm, normal S1, normal S2 Dialysis Vascular Access: Venous Catheter Gastrointestinal: Present: no guarding Psychiatric: Present: mood/affect appropriate, cooperative - Lab 09/15/16 04:30 09/15/16 04:30 Most recent lab results ABG pH 7.39 pH Units (7.32-7.45) 09/13/16 21:19 ABG pCO2 45 mmHg (35-45) 09/13/16 21:19 ABG pO2 79 mmHg (85-104) L 09/13/16 21:19 ABG HCO3 27.2 mEQ/L (21-27) H 09/13/16 21:19 ABG O2 Saturation 95 % (95-98) 09/13/16 21:19 Calcium 7.9 mg/dL (8.6-10.8) L 09/15/16 04:30 Phosphorus 3.5 mg/dL (2.3-4.7) 09/15/16 04:30 Magnesium 1.7 mg/dL (1.6-2.6) 09/15/16 04:30 Urine Creatinine 40 mg/dL 08/25/16 13:19 Urine Sodium 30.0 mEq/L 08/25/16 13:19 Urine Total Protein 22 mg/dL (1-14) H 08/24/16 14:18 - VTE Documentation of Mechanical Device: Intermittent pneumatic compression device Consult Discharge Plan - Plan Referrals: Edith Peña CNP [Advanced Practice Nurse] - 09/26/16 10:15 am Kj Yost MD [Partnered Physician] - Therese Garcia CNP [Primary Care Provider] - 09/15/16 9:00 am () Prudence Escobedo MD [Partnered Physician] - 10/11/16 3:50 pm ()
--- NOTE | 2016-09-15 15:06 | Infectious Disease Consult ---
Date of Encounter: 09/15/16 Time of Encounter: 15:04 Assessment and Plan (1) Leukocytosis Status: Resolved Assessment and plan: The patient had a WBC of 16 post-op--? reactive vs. infectious etiology. WBC has trended back down to normal. Continue to trend. Qualifiers: Leukocytosis type: unspecified Qualified Code(s): D72.829 - Elevated white blood cell count, unspecified (2) Fever Status: Acute Assessment and plan: Etiology unclear, but likely infectious. The patient has been afebrile since 09/13/16. Continue to monitor closely. Qualifiers: Fever type: unspecified Qualified Code(s): R50.9 - Fever, unspecified (3) Bacteremia due to Enterococcus Status: Acute Assessment and plan: Source unclear, but possibly intra-abdominal vs. psoas muscle abscess vs. dialysis catheter infection. Blood culture drawn 09/08/16 came back positive 05/08 set for VRE. Repeat blood cultures drawn 09/11/16 are NGTD x 2 sets. Clinical exam reveals no evidence of endocarditis stigmata. However, due to the presence of possible septic emboli and the new-onset of A-fib RVR, we will need to rule out IE. Get TTE. If negative, will likely need to proceed with VIC to rule out IE. The patient has three minor Modified Pacheco's Criteria --> possibe IE. Start on Zyvox 09/09 per the primary team. Although Zyvox is inferior to Daptomycin, the patient's CT of the chest reveals possible septic emboli. Because Daptomycin is inactivated by lung surfactant, we will continue Zyvox 600mg IV BID. On HD days, give at least one dose after HD. Duration of treatment depends on the clinical picture. No dose-adjustment of Zyvox required. (4) Bacteremia due to Staphylococcus Status: Acute Assessment and plan: Source likely the temporary dialysis catheter --> true infection vs. contaminant ? Blood culture drawn 09/13/16 from the HD catheter is positive / set for GPC. PCR picked up mecA gene and Staph species, but not Staph aureus. Blood culture drawn 09/13/16 from a peripheral stick at the same time is NGTD. Additional blood cultures drawn 09/14/16 (peripherally) are pending. Continue Zyvox as above. Give through the HD catheter pigtail. Because this is likely a CONS, we can attempt line salvage if repeat cultures are negative. Will defer the removal of the TDC to the nephrology team if they deem it no longer necessary to keep in place. (5) HCAP (healthcare-associated pneumonia) Status: Resolved Assessment and plan: Causative organism unclear. CXR completed on admission revealed bilateral perihilar infiltrates. Repeat CXR completed 09/13/16 showed bibasilar atelectasis with pleural effusion. CT of the chest completed 09/13/16 showed bibasilar airspace disease with multiple small nodular lesions in the right lung with at least 1 cavitary nodule concerning for septic emboli. Patient previous treated with 8 days of IV Cefepime. Consider requesting pulmonology re-evaluate the patient. Consider swallow study to evaluate for possible aspiration given the distribution of the PNA. Re-start Cefepime. Give 2 grams IV on dialysis days only after HD sessions. Continue Zyvox as above. Duration of treatment depends on the clinical picture. Antibiotics dose-adjusted for HD. (6) Cavitary lesion of lung Status: Acute Assessment and plan: CT of the chest completed 09/13/16 showed bilateral lower lobe airspace disease with multiple nodular lesions in the right lung with at least 1 cavitary lesion concerning for septic emboli. Based on the patient's recent bacteremia, septic emboli is a possibility. Continue antibiotics as above. Consider re-consulting pulmonology for their input. (7) Mass of psoas muscle Status: Acute Assessment and plan: CT of the abdomen and pelvis completed today showed a hyperdense collection in the right psoas muscle suspicious for hematoma vs. phlegmon vs. mass. Etiology not entirely clear.--> ? source of bacteremia Consider consulting IR for possible aspiration. Will discuss with the primary team. (8) Acute kidney injury superimposed on CKD Status: Acute Assessment and plan: The patient has required CHAIN SPLITTER with the placement of a temporary dialysis catheter. Nephrology consulted and following. ELLE appears to be improving. Serum creatinine down to 1.97 this morning. Dose-adjust antibiotics for HD and avoid nephrotoxins as able. (9) Acute and chronic respiratory failure Status: Chronic Assessment and plan: Likely multifactorial--> PNA, fluid overload, septic emboli, COPD. Appears improved. The has required BIPAP previously, but is currently on O2 via simple mask. Continue supportive care per the primary team. Qualifiers: Respiratory failure complication: unspecified whether with hypoxia or hypercapnia Qualified Code(s): J96.20 - Acute and chronic respiratory failure , unspecified whether with hypoxia or hypercapnia (10) GIB (gastrointestinal bleeding) Status: Acute Assessment and plan: Status post colonoscopy 08/31/[address] Escboedo which revealed seven colonic angioectasias. Right hemicolectomy recommended. Status post extended right hemicolectomy 09/05/[address] Moy. Operative report reviewed. Hgb down to 7.4 yesterday. Received 2 units of PRBCs and hemoglobin only came up to 8.5 this morning. Repeat FOBT was positive. Management per the general surgery and GI teams. Qualifiers: GI bleed type/associated pathology: unspecified gastrointestinal hemorrhage type Qualified Code(s): K92.2 - Gastrointestinal hemorrhage, unspecified (11) Status post right hemicolectomy Status: Acute Assessment and plan: POD #10. Status post extended right hemicolectomy with extensive KACY 09/06/[address] Moy. Appears to be doing well. Able to tolerate full liquids and is passing flatus and having BMs. Continues to be on TPN. Further management per the surgery team. (12) Acute exacerbation of chronic obstructive airways disease Status: Acute (13) Anemia Status: Chronic Assessment and plan: Secondary to GI bleed. Hemoglobin down to 7.4 yesterday. Up to 8.5 today after 2 units of PRBCs. Qualifiers: Anemia type: iron deficiency Iron deficiency anemia type: unspecified iron deficiency Qualified Code(s): D50.9 - Iron deficiency anemia, unspecified (14) Atrial fibrillation with RVR Status: Acute (15) CHF (congestive heart failure) Status: Chronic Qualifiers: Congestive heart failure type: diastolic Congestive heart failure chronicity: chronic Qualified Code(s): I50.32 - Chronic diastolic (congestive ) heart failure (16) CKD (chronic kidney disease) stage 4, GFR 15-29 ml/min Status: Chronic (17) Diabetes mellitus Status: Chronic Qualifiers: Diabetes mellitus type: type 2 Diabetes mellitus complication status: with kidney complications Diabetes mellitus complication detail: with chronic kidney disease Diabetes mellitus residential insulin use: unspecified residential insulin use status Chronic kidney disease stage: stage 4 (severe) Qualified Code(s): E11.22 - Type 2 diabetes mellitus with diabetic chronic kidney disease ; N18.4 - Chronic kidney disease, stage 4 (severe) Infectious Disease HPI - Data of Consult Patient: new to practice Consult date: 09/15/16 Requesting Physician: Nelia Del Valle Primary Care Provider: Theerse Garcia CNP - Consult Narrative Reason for consult: Bacteremia History of present illness: Ms. Parks is a 76 year old female with a past medical history CVA, diabetes, CHF , COPD, CKD IV, GI bleed. The patient was admitted to the hospital August 22 for HCAP And COPD. We are consulted for further evaluation and treatment recommendations regarding bacteremia. Patient's a 76-year-old female past medical history as stated above. The patient was admitted to the hospital back on August 22 for age And COPD after she presented to the emergency department with complaints of cough, shortness of breath, and COPD. The patient was subsequently admitted for further evaluation. While hospitalized, the patient developed A. fib RVR. Cardiology was consulted and the patient was started on IV heparin which subsequently resulted in an acute GI bleed. Her hemoglobin dropped in general surgery was consulted. At that time, further endoscopy was deferred due to the patient's history of multiple endoscopy procedures and no prior source of bleeding. The patient's hemoglobin continued to drop and GI was consulted. The patient underwent a colonoscopy on September 02 that showed 7 colonic angiectasias and diverticulosis. The patient in avoiding the surgery on September 06 and underwent an extended right hemicolectomy and lysis of adhesions. Postoperatively, the patient's white blood counts went up to 16,000, but did trend down over the course of the next few days. Her serum creatinine also went up to 3.12 with associated hyperkalemia. The patient was started on hemodialysis via a temporary dialysis catheter inserted in the right side of the neck. She says "blister developed fevers ranging from 100.4-100.7. Blood culture was obtained on September 08 that came back +1 out of 1 set for VRE. The patient was started on IV Zyvox. Repeat blood cultures were obtained September 11 that are not growth to date 2 sets. On September 13, the patient developed worsening respiratory failure. A CT the chest was completed that showed bilateral lower lobe airspace disease with multiple small nodular lesions in the right lung with at least one cavitary nodule concerning for septic emboli. Additionally, a urine culture was obtained and was negative. Blood cultures were obtained, one set from the temporary dialysis line and one set from a peripheral stick. The blood culture drawn from the temporary dialysis line is positive for mec A gene staph species per the PCR , but not staph aureus. Repeat blood cultures drawn 09/14/16 are pending x 2 sets. The patient is currently on IV Zyvox. She did receive an eight-day course of IV cefepime for pneumonia. We've been asked to evaluate and make further recommendations. During my exam today, the patient endorsed a history as stated above. The patient's daughters also the bedside and provides most of the information. The patient denies any chills or rigors and states she has not felt feverish despite having fevers documented. She reports chronic shortness of breath that is back to her baseline. She does report a moist, nonproductive cough. She denies any chest pain. She denies any headache or neck pain. She reports some intermittent nausea and some right-sided abdominal pain. She denies any vomiting or diarrhea. She does reports she's had 6 bowel movements since her surgery and is passing gas. She denies pain anywhere extremities. She denies pain in her back. She currently has a Watkins catheter that is draining clear yellow urine and denies any urinary complaints. She denies any oral thrush or new skin lesions. 10 point review of systems complete and is otherwise negative. CC: Nelia Del Valle Past Med Surg Social Fam HX - Past Medical History Attestation: Yes The following information was validated with the patient. Source: patient, old records reviewed, nursing notes reviewed Medical history: cancer (Right breast 2016 s/p mastectomy), CHF, COPD, CVA, diabetes, renal disease (CKD IV) Psychiatric history: anxiety, depression - Past Surgical History Surgical History: appendectomy, breast surgery (right masectomy 11/20), cholecystectomy, hysterectomy - Social History Smoking Status: Former smoker Smokeless Tobacco Status: No Alcohol use: none Drug use: none Occupational status: retired Current living situation: Home, With Family Activity Level: Uses cane/walker Recent Out of Country Travel Within the Last 8 Weeks: No Exposure or Possible Exposure to Illness During Travel: No - Family History Mother Family Member Ethnicity: Non- Living Status: Hx Family Cardiac Disorders: No Hx Family Respiratory Disorders: No Hx Family Cancer: Yes (colon) Father Living Status: Hx Family Cardiac Disorders: No Hx Family Respiratory Disorders: No Hx Family Cancer: Yes Hx Family GI Disorders: Yes Hx Family Endocrine Disorder: Yes Hx Family Neuromuscular Disorders: No Hx Family Neurologic Disorders: No Hx Family HEENT Disorders: No Hx Family Autoimmune Disorders: No Infectious Disease-CN:Meds Cetirizine HCl [Zyrtec] 10 mg PO HS 04/17/15 [History] Cholecalciferol (Vitamin D3) [Vitamin D3] 2,000 unit PO DAILY 04/17/15 [History] Glimepiride 4 mg PO QAM 04/17/15 [History] Promethazine [Phenergan] 12.5 - 25 mg PO Q6-8H PRN 04/17/15 [History] Albuterol Sulfate [Albuterol Inhaler] 2 puff IH Q6H PRN 10/12/15 [History] Furosemide [Lasix] 20 mg PO DAILY 10/12/15 [History] Omeprazole [PriLOSEC] 20 mg PO DAILY 10/12/15 [History] amLODIPine [Norvasc] 10 mg PO DAILY 01/26/16 [History] Ascorbate Calcium [Vitamin C] 500 mg PO DAILY 06/14/16 [History] Atorvastatin [Lipitor] 10 mg PO HS 06/14/16 [History] Calcitriol [Rocaltrol] 0.25 mcg PO DAILY 06/14/16 [History] Docusate [Colace] 100 mg PO DAILY PRN 06/14/16 [History] Guaifenesin [Mucinex] 600 mg PO Q12H PRN 06/14/16 [History] Linagliptin [Tradjenta] 5 mg PO DAILY 06/14/16 [History] Alendronate Sodium [Fosamax] 70 mg PO QWEEK 06/22/16 [History] Budesonide/Formoterol 80/4.5 [Symbicort 80/4.5] 2 puff IH Q12H 06/22/16 [ History] Calcium Carbonate [Calcium] 600 mg PO BID 06/22/16 [History] Albuterol Neb [Proventil Neb] 2.5 mg IH Q4H PRN 07/27/16 [History] Carvedilol 3.125 mg PO BID 07/27/16 [History] Famotidine [Pepcid] 20 mg PO BID 07/27/16 [History] Sucralfate [Carafate] 1 gm PO ACHS 07/27/16 [History] cloNIDine HCl [CloNIDine HCl] 0.1 mg PO Q8H 07/27/16 [History] HYDROcodone/Acet 7.5/325 mg [[place] 7.5-325 mg] 1 tab PO Q6H PRN 08/02/16 [ History] Insulin ASPART [NovoLOG] 6 - 18 unit SQ ACHS 08/02/16 [History] Insulin Glargine,Hum.rec.anlog [Lantus Solostar] 10 unit SQ QAM 08/02/16 [ History] Acetaminophen w/Cod 300-30 mg [Tylenol w/Codeine #3] 1 each PO Q4H PRN 08/15/16 [History] Clopidogrel [Plavix] 75 mg PO DAILY 08/15/16 [History] predniSONE [PredniSONE] 10 mg PO TAPER 08/15/16 [History] Donepezil HCl [Aricept] 5 mg PO HS 08/22/16 [History] Insulin Glargine,Hum.rec.anlog [Lantus Solostar] 8 unit SQ QPM 08/22/16 [History ] Ipratropium/Albuterol Neb [Duoneb] 3 ml IH Q4HR 08/22/16 [History] Ipratropium/Albuterol Neb [Duoneb] 3 ml IH QID PRN 08/22/16 [History] Iron Polysaccharide Complex [Pro Fe] 180 mg PO DAILY 08/22/16 [History] Letrozole [Femara] 2.5 mg PO DAILY 08/22/16 [History] Oxycodone HCl/Acetaminophen [Percocet 5-325 mg Tablet] 1 each PO Q4H PRN [History] Allergies aspirin [ASA] Allergy (Verified 08/18/16 15:30) Swelling of Lip/Tongue/Throat NSAIDS (Non-Steroidal Anti-Inflamma Allergy (Verified 08/18/16 15:30) Swelling of Lip/Tongue/Throat Penicillins Allergy (Verified 08/18/16 15:30) Hives iron Adverse Reaction (Verified 08/18/16 15:30) Unknown Push only All systems: reviewed and no additional remarkable complaints except as stated Exam - Constitutional Vitals: Temp Pulse Resp BP Pulse Ox 98.9 F 103 24 94/48 97 09/15/16 11:16 09/15/16 12:37 09/15/16 11:16 09/15/16 11:16 09/15/16 11:16 General appearance: average body habitus, cooperative, no acute distress - Head Head exam: Present: atraumatic, normal inspection, normocephalic - Eye Eye exam: Present: EOMI, normal appearance, PERRL Pupils: Present: normal accommodation Additional comments: No subconjunctival hemorrhage noted. - ENT ENT exam: Present: mucous membranes moist - Neck Neck exam: Present: normal inspection Additional comments: Temporary dialysis catheter with pigtail noted to the right neck with dressing C /D/I. No erythema, warmth, or tenderness noted. - Respiratory Respiratory exam: Present: rales (left base), rhonchi (throughout). Absent: wheezes, tachypnea - Cardiovascular Cardiovascular exam: Present: +S1, +S2, tachycardia. Absent: diastolic murmur, irregular rhythm, systolic murmur - GI/Abdominal GI/Abdominal exam: Present: distended, normal bowel sounds, soft, tenderness ( Generalized) Additional comments: Midline abdominal incision with dressing C/D/I. Abdominal incision with alba intact. No erythema, warmth, or drainage noted. - Extremities Exam Extremities exam: Absent: joint swelling, pedal edema, tenderness Additional comments: 1+ edema noted to the bilateral thighs. - Neurological Exam Neurological exam: Present: alert, oriented X3, no focal deficits - Psychiatric Psychiatric exam: Present: normal affect, normal mood - Skin Skin exam: Present: dry, intact, normal color, warm - Additional findings Additional findings: Powerglide EPIV noted to the LUE with transparent dressing C/D/I. Infectious Disease CN: Results - Labs CBC & Chem 7: 09/15/16 04:30 09/15/16 04:30 Cultures: Cultures 09/13/16 15:08 Blood Culture - Preliminary Peripheral Venipuncture No growth. 09/13/16 15:40 Blood Culture - Preliminary Central Venous Catheter Gram Positive Cocci 09/13/16 13:00 Urine Culture - Final Urine,Clean Catch No growth. 09/11/16 04:19 Blood Culture - Preliminary Peripheral Venipuncture No growth. 09/11/16 04:15 Blood Culture - Preliminary Peripheral Venipuncture No growth. 09/08/16 08:04 Blood Culture - Final Peripheral Venipuncture Vanc. Resistant Enterococcus Serology: Serology 09/14/16 09/13/16 09/13/16 Range/Units 16:11 15:40 13:00 Urine Color Yellow (Yellow) Urine Clarity Cloudy A (Clear) Urine pH 6.0 (5.0-8.0) pH Units Ur Specific [place] 1.012 (1.010-1.025) Urine Protein 100 H (Neg-Trace) mg/dL Urine Glucose (UA) Normal (Normal) mg/dL Urine Ketones Negative (Negative) mg/dL Urine Blood Small H (Negative) Urine Nitrite Negative (Negative) Urine Bilirubin Negative (Negative) Urine Urobilinogen Normal (Normal) mg/dL Ur Leukocyte Esterase Small H (Negative) Urine Microscopic RBC 0-3 (0-3) per hpf Urine Microscopic WBC 15-30 H (0-3) per hpf Ur Squamous Epith Cells Many H (None-Few) per lpf Urine Bacteria None Seen (None-Few) per hpf Hyaline Casts None Seen (None-Few) per lpf Urine Yeast Many H (None Seen) per hpf Ur Culture Indicated? YES A (NO) Stool Occult Blood Positive A (Negative) A. baumannii (PCR) Not Detected (Not Detect) Polly albicans (PCR) Not Detected (Not Detect) C. glabrata (PCR) Not Detected (Not Detect) C. krusei (PCR) Not Detected (Not Detect) C. parapsilosis (PCR) Not Detected (Not Detect) C. tropicalis (PCR) Not Detected (Not Detect) Enterobacteriac sp PCR Not Detected (Not Detect) E. cloacae complex PCR Not Detected (Not Detect) Enterococcus sp PCR Not Detected (Not Detect) E. coli (PCR) Not Detected (Not Detect) H. influenzae (PCR) Not Detected (Not Detect) Hep Bs Antigen (Nonreactive) Hep Bs Antibody mIU/mL Klebsiella oxytoca PCR Not Detected (Not Detect) Klebsiella pneumoniae Not Detected (Not Detect) List. monocytogenes PCR Not Detected (Not Detect) N. meningitidis (PCR) Not Detected (Not Detect) Proteus species (PCR) Not Detected (Not Detect) Serratia marcescens PCR Not Detected (Not Detect) Staphylococcus sp PCR DETECTED A (Not Detect) Staph aureus (PCR) Not Detected (Not Detect) mecA-Methicil Res Gene DETECTED A (Not Detect) Streptococcus sp PCR Not Detected (Not Detect) Group A Strep DNA Not Detected (Not Detect) Group B Strep (PCR) Not Detected (Not Detect) Strep pneumoniae (PCR) Not Detected (Not Detect) P. aeruginosa (PCR) Not Detected (Not Detect) Minerva/B-Vanco Res Genes N/A (Not Detect) KPC (blaKPC) Detect PCR N/A (Not Detect) 09/08/16 09/07/16 Range/Units 08:04 13:42 Urine Color (Yellow) Urine Clarity (Clear) Urine pH (5.0-8.0) pH Units Ur Specific [place] (1.010-1.025) Urine Protein (Neg-Trace) mg/dL Urine Glucose (UA) (Normal) mg/dL Urine Ketones (Negative) mg/dL Urine Blood (Negative) Urine Nitrite (Negative) Urine Bilirubin (Negative) Urine Urobilinogen (Normal) mg/dL Ur Leukocyte Esterase (Negative) Urine Microscopic RBC (0-3) per hpf Urine Microscopic WBC (0-3) per hpf Ur Squamous Epith Cells (None-Few) per lpf Urine Bacteria (None-Few) per hpf Hyaline Casts (None-Few) per lpf Urine Yeast (None Seen) per hpf Ur Culture Indicated? (NO) Stool Occult Blood (Negative) A. baumannii (PCR) Not Detected (Not Detect) Polly albicans (PCR) Not Detected (Not Detect) C. glabrata (PCR) Not Detected (Not Detect) C. krusei (PCR) Not Detected (Not Detect) C. parapsilosis (PCR) Not Detected (Not Detect) C. tropicalis (PCR) Not Detected (Not Detect) Enterobacteriac sp PCR Not Detected (Not Detect) E. cloacae complex PCR Not Detected (Not Detect) Enterococcus sp PCR DETECTED A (Not Detect) E. coli (PCR) Not Detected (Not Detect) H. influenzae (PCR) Not Detected (Not Detect) Hep Bs Antigen Nonreactive (Nonreactive) Hep Bs Antibody 3.83 mIU/mL Klebsiella oxytoca PCR Not Detected (Not Detect) Klebsiella pneumoniae Not Detected (Not Detect) List. monocytogenes PCR Not Detected (Not Detect) N. meningitidis (PCR) Not Detected (Not Detect) Proteus species (PCR) Not Detected (Not Detect) Serratia marcescens PCR Not Detected (Not Detect) Staphylococcus sp PCR Not Detected (Not Detect) Staph aureus (PCR) Not Detected (Not Detect) mecA-Methicil Res Gene N/A (Not Detect) Streptococcus sp PCR Not Detected (Not Detect) Group A Strep DNA Not Detected (Not Detect) Group B Strep (PCR) Not Detected (Not Detect) Strep pneumoniae (PCR) Not Detected (Not Detect) P. aeruginosa (PCR) Not Detected (Not Detect) Minerva/B-Vanco Res Genes DETECTED A (Not Detect) KPC (blaKPC) Detect PCR N/A (Not Detect) Serology 09/14/16 09/13/16 09/13/16 Range/Units 16:11 15:40 13:00 Urine Color Yellow (Yellow) Urine Clarity Cloudy A (Clear) Urine pH 6.0 (5.0-8.0) pH Units Ur Specific [place] 1.012 (1.010-1.025) Urine Protein 100 H (Neg-Trace) mg/dL Urine Glucose (UA) Normal (Normal) mg/dL Urine Ketones Negative (Negative) mg/dL Urine Blood Small H (Negative) Urine Nitrite Negative (Negative) Urine Bilirubin Negative (Negative) Urine Urobilinogen Normal (Normal) mg/dL Ur Leukocyte Esterase Small H (Negative) Urine Microscopic RBC 0-3 (0-3) per hpf Urine Microscopic WBC 15-30 H (0-3) per hpf Ur Eosinophil Smear (None Seen) % Ur Squamous Epith Cells Many H (None-Few) per lpf Urine Bacteria None Seen (None-Few) per hpf Hyaline Casts None Seen (None-Few) per lpf Urine Yeast Many H (None Seen) per hpf Ur Culture Indicated? YES A (NO) Urine Creatinine mg/dL Protein/Creatinin Ratio (0-0.20) mg/mg Urine Sodium mEq/L Urine Total Protein (1-14) mg/dL Stool Occult Blood Positive A (Negative) A. baumannii (PCR) Not Detected (Not Detect) Polly albicans (PCR) Not Detected (Not Detect) C. glabrata (PCR) Not Detected (Not Detect) C. krusei (PCR) Not Detected (Not Detect) C. parapsilosis (PCR) Not Detected (Not Detect) C. tropicalis (PCR) Not Detected (Not Detect) Enterobacteriac sp PCR Not Detected (Not Detect) E. cloacae complex PCR Not Detected (Not Detect) Enterococcus sp PCR Not Detected (Not Detect) E. coli (PCR) Not Detected (Not Detect) H. influenzae (PCR) Not Detected (Not Detect) Hep Bs Antigen (Nonreactive) Hep Bs Antibody mIU/mL Klebsiella oxytoca PCR Not Detected (Not Detect) Klebsiella pneumoniae Not Detected (Not Detect) List. monocytogenes PCR Not Detected (Not Detect) N. meningitidis (PCR) Not Detected (Not Detect) Proteus species (PCR) Not Detected (Not Detect) Serratia marcescens PCR Not Detected (Not Detect) Staphylococcus sp PCR DETECTED A (Not Detect) Staph aureus (PCR) Not Detected (Not Detect) mecA-Methicil Res Gene DETECTED A (Not Detect) Streptococcus sp PCR Not Detected (Not Detect) Group A Strep DNA Not Detected (Not Detect) Group B Strep (PCR) Not Detected (Not Detect) Strep pneumoniae (PCR) Not Detected (Not Detect) P. aeruginosa (PCR) Not Detected (Not Detect) [place]/B-Vanco Res Genes N/A (Not Detect) KPC (blaKPC) Detect PCR N/A (Not Detect) 09/08/16 09/07/16 08/26/16 Range/Units 08:04 13:42 11:10 Urine Color (Yellow) Urine Clarity (Clear) Urine pH (5.0-8.0) pH Units Ur Specific [place] (1.010-1.025) Urine Protein (Neg-Trace) mg/dL Urine Glucose (UA) (Normal) mg/dL Urine Ketones (Negative) mg/dL Urine Blood (Negative) Urine Nitrite (Negative) Urine Bilirubin (Negative) Urine Urobilinogen (Normal) mg/dL Ur Leukocyte Esterase (Negative) Urine Microscopic RBC (0-3) per hpf Urine Microscopic WBC (0-3) per hpf Ur Eosinophil Smear (None Seen) % Ur Squamous Epith Cells (None-Few) per lpf Urine Bacteria (None-Few) per hpf Hyaline Casts (None-Few) per lpf Urine Yeast (None Seen) per hpf Ur Culture Indicated? (NO) Urine Creatinine mg/dL Protein/Creatinin Ratio (0-0.20) mg/mg Urine Sodium mEq/L Urine Total Protein (1-14) mg/dL Stool Occult Blood Positive A (Negative) A. baumannii (PCR) Not Detected (Not Detect) Polly albicans (PCR) Not Detected (Not Detect) C. glabrata (PCR) Not Detected (Not Detect) C. krusei (PCR) Not Detected (Not Detect) C. parapsilosis (PCR) Not Detected (Not Detect) C. tropicalis (PCR) Not Detected (Not Detect) Enterobacteriac sp PCR Not Detected (Not Detect) E. cloacae complex PCR Not Detected (Not Detect) Enterococcus sp PCR DETECTED A (Not Detect) E. coli (PCR) Not Detected (Not Detect) H. influenzae (PCR) Not Detected (Not Detect) Hep Bs Antigen Nonreactive (Nonreactive) Hep Bs Antibody 3.83 mIU/mL Klebsiella oxytoca PCR Not Detected (Not Detect) Klebsiella pneumoniae Not Detected (Not Detect) List. monocytogenes PCR Not Detected (Not Detect) N. meningitidis (PCR) Not Detected (Not Detect) Proteus species (PCR) Not Detected (Not Detect) Serratia marcescens PCR Not Detected (Not Detect) Staphylococcus sp PCR Not Detected (Not Detect) Staph aureus (PCR) Not Detected (Not Detect) mecA-Methicil Res Gene N/A (Not Detect) Streptococcus sp PCR Not Detected (Not Detect) Group A Strep DNA Not Detected (Not Detect) Group B Strep (PCR) Not Detected (Not Detect) Strep pneumoniae (PCR) Not Detected (Not Detect) P. aeruginosa (PCR) Not Detected (Not Detect) Minerva/B-Vanco Res Genes DETECTED A (Not Detect) KPC (blaKPC) Detect PCR N/A (Not Detect) 08/25/16 08/25/16 08/25/16 Range/Units 13:19 13:19 13:19 Urine Color Yellow (Yellow) Urine Clarity Clear (Clear) Urine pH 6.0 (5.0-8.0) pH Units Ur Specific [place] 1.016 (1.010-1.025) Urine Protein 30 H (Neg-Trace) mg/dL Urine Glucose (UA) 500 H (Normal) mg/dL Urine Ketones Negative (Negative) mg/dL Urine Blood Negative (Negative) Urine Nitrite Negative (Negative) Urine Bilirubin Negative (Negative) Urine Urobilinogen Normal (Normal) mg/dL Ur Leukocyte Esterase Small H (Negative) Urine Microscopic RBC 5-15 H (0-3) per hpf Urine Microscopic WBC 5-15 H (0-3) per hpf Ur Eosinophil Smear 0 (None Seen) % Ur Squamous Epith Cells Many H (None-Few) per lpf Urine Bacteria None Seen (None-Few) per hpf Hyaline Casts None Seen (None-Few) per lpf Urine Yeast (None Seen) per hpf Ur Culture Indicated? YES A (NO) Urine Creatinine 40 mg/dL Protein/Creatinin Ratio (0-0.20) mg/mg Urine Sodium 30.0 mEq/L Urine Total Protein (1-14) mg/dL Stool Occult Blood (Negative) A. baumannii (PCR) (Not Detect) Polly albicans (PCR) (Not Detect) C. glabrata (PCR) (Not Detect) C. krusei (PCR) (Not Detect) C. parapsilosis (PCR) (Not Detect) C. tropicalis (PCR) (Not Detect) Enterobacteriac sp PCR (Not Detect) E. cloacae complex PCR (Not Detect) Enterococcus sp PCR (Not Detect) E. coli (PCR) (Not Detect) H. influenzae (PCR) (Not Detect) Hep Bs Antigen (Nonreactive) Hep Bs Antibody mIU/mL Klebsiella oxytoca PCR (Not Detect) Klebsiella pneumoniae (Not Detect) List. monocytogenes PCR (Not Detect) N. meningitidis (PCR) (Not Detect) Proteus species (PCR) (Not Detect) Serratia marcescens PCR (Not Detect) Staphylococcus sp PCR (Not Detect) Staph aureus (PCR) (Not Detect) mecA-Methicil Res Gene (Not Detect) Streptococcus sp PCR (Not Detect) Group A Strep DNA (Not Detect) Group B Strep (PCR) (Not Detect) Strep pneumoniae (PCR) (Not Detect) P. aeruginosa (PCR) (Not Detect) Minerva/B-Vanco Res Genes (Not Detect) KPC (blaKPC) Detect PCR (Not Detect) 08/24/16 Range/Units 14:18 Urine Color (Yellow) Urine Clarity (Clear) Urine pH (5.0-8.0) pH Units Ur Specific [place] (1.010-1.025) Urine Protein (Neg-Trace) mg/dL Urine Glucose (UA) (Normal) mg/dL Urine Ketones (Negative) mg/dL Urine Blood (Negative) Urine Nitrite (Negative) Urine Bilirubin (Negative) Urine Urobilinogen (Normal) mg/dL Ur Leukocyte Esterase (Negative) Urine Microscopic RBC (0-3) per hpf Urine Microscopic WBC (0-3) per hpf Ur Eosinophil Smear (None Seen) % Ur Squamous Epith Cells (None-Few) per lpf Urine Bacteria (None-Few) per hpf Hyaline Casts (None-Few) per lpf Urine Yeast (None Seen) per hpf Ur Culture Indicated? (NO) Urine Creatinine 53 mg/dL Protein/Creatinin Ratio 0.42 H (0-0.20) mg/mg Urine Sodium mEq/L Urine Total Protein 22 H (1-14) mg/dL Stool Occult Blood (Negative) A. baumannii (PCR) (Not Detect) Polly albicans (PCR) (Not Detect) C. glabrata (PCR) (Not Detect) C. krusei (PCR) (Not Detect) C. parapsilosis (PCR) (Not Detect) C. tropicalis (PCR) (Not Detect) Enterobacteriac sp PCR (Not Detect) E. cloacae complex PCR (Not Detect) Enterococcus sp PCR (Not Detect) E. coli (PCR) (Not Detect) H. influenzae (PCR) (Not Detect) Hep Bs Antigen (Nonreactive) Hep Bs Antibody mIU/mL Klebsiella oxytoca PCR (Not Detect) Klebsiella pneumoniae (Not Detect) List. monocytogenes PCR (Not Detect) N. meningitidis (PCR) (Not Detect) Proteus species (PCR) (Not Detect) Serratia marcescens PCR (Not Detect) Staphylococcus sp PCR (Not Detect) Staph aureus (PCR) (Not Detect) mecA-Methicil Res Gene (Not Detect) Streptococcus sp PCR (Not Detect) Group A Strep DNA (Not Detect) Group B Strep (PCR) (Not Detect) Strep pneumoniae (PCR) (Not Detect) P. aeruginosa (PCR) (Not Detect) Minerva/B-Vanco Res Genes (Not Detect) KPC (blaKPC) Detect PCR (Not Detect) - VTE Documentation of Mechanical Device: Intermittent pneumatic compression device Consult Discharge Plan - Plan Referrals: Edith Peña ORNAMENTER HAND [Advanced Practice Nurse] - 09/26/16 10:15 am Kj Yost MD [Partnered Physician] - Therese Garcia CNP [Primary Care Provider] - 09/15/16 9:00 am () Prudence Escobedo MD [Partnered Physician] - 10/11/16 3:50 pm ()
--- NOTE | 2016-09-15 15:26 | ECHO - Doppler Report ---
Echocardiogram Name: Dorothy Parks Date of Study: 09/15/2016 Date: 1940 Ht: 65.0 in Medical Record#: [id number] Age: 76 Wt: 215.0 lb Gender: Female BSA: 2.04 Order #: [id number] Location: [facility] Room #: 2N01 Reading Physician: Toby Mcclure DO, FACJOSÉ Herrera [employer] Unit Adjuster: Nery Diamond T Ordering Physician: Nelia Del Valle MD Primary Physician: Indications: Bacteremia Impressions: LVEF 65%. Normal LV chamber size, wall thickness and function. Mild left ventricular diastolic dysfunction. Normal right ventricular structure and function. No evidence of pulmonary hypertension. No obvious significant valvular dysfunction. Left Ventricular Wall Motion: Rest Echo Findings All wall segments showed normal motion. Findings: Study Quality * Technically adequate exam. ECG Findings * Normal sinus rhythm. Left Ventricle * LVEF 65%. * Normal LV chamber size, wall thickness and function. * Mild left ventricular diastolic dysfunction. Right Ventricle * Normal right ventricular structure and function. Left Atrium * Moderately dilated left atrium. Right Atrium * Normal right atrial size. Interatrial Septum * No evidence of PFO by color Doppler. Aortic Valve * Aortic valve not well visualized. * No aortic regurgitation. * No aortic stenosis. Mitral Valve * Normal mitral valve structure and function. * No mitral regurgitation. * No mitral stenosis. Tricuspid Valve * Tricuspid valve not well visualized. Grossly normal. * Trace tricuspid regurgitation. * No evidence of pulmonary hypertension. Pulmonic Valve * Pulmonic valve is not well visualized. * No pulmonic regurgitation. Aorta * Normally sized aortic root. Pericardium * The pericardium appears normal. IVC * Normal IVC dimensions and inspiratory collapse. Pulmonary Artery * Normal visualized portions of the main pulmonary artery. History Diabetes Congestive Heart Failure 06/23/2016 a Previous Echo was performed. Measurements: BP: 94/ 48 2D Normal Values RVIDd: 3.28 cm <2.7 cm IVSd: 1.11 cm 0.6 - 1.0 cm LVIDd: 4.71 cm 3.7 - 5.6 cm LVPWd: 1.10 cm 0.6 - 1.1 cm LVIDs: 3.96 cm 1.5 - 3.6 cm AO: 2.90 cm < 4.0 cm LA: 3.80 cm 2.0 - 4.0cm %FS: 15.90 cm >25 % LA volume: 53.7 Mitral Valve Peak E:.91 m/sec Peak A:1.14 m/sec E/A Ratio:0.8 Peak E' Lat Aurelio:6.84 cm/s Peak E' Med Aurelio:5.59 cm/s E/E' Lat Ratio:13.3 E/E' Med Ratio:16.3 Tricuspid Valve TV Regurg Peak Grad: 14.00mmHg TV Regurg Peak Aurelio: 1.85m/sec Updated by Toby Mcclure DO, CHERELLE, JOSÉ, NEERU on 09/15/2016 3:21:33 PM electronically signed on 09/15/2016 3:22:04 PM with status of Final Wall Motion [place]: 1=Normal, 2=Hypokinesis, 3=Akinesis, 4=Dyskinesis, 5=Aneurysmal, 6=Hyperkinetic, X=Not Visualized (Blank)=Missing
--- NOTE | 2016-09-15 15:31 | Internal Med Progress Note ---
Date of Encounter: 09/15/16 Time of Encounter: 14:30 - Assessment and plan (1) Bacteremia due to Enterococcus Current Visit: Yes Status: Acute Assessment and plan: Blood culture drawn 09/08, resulted 09/09 with VRE 05/08 set Patient has a Right dialysis CVC placed 09/07 Blood cultures X2 09/11 prelim negative blood cultures x1 from Right Dialysis CVC 09/13 growing GPC staph blood cultures x1 peripheral 09/13 negative. I discussed plan with Dr Sanchez from ID team. will remove Dialysis catheter today and send tip for culture. blood cultures positive for GPC is likely a contaminant. Given CT chest findings suggestive of septic emboli, will continue Zyvox (start date 09/09), and have VIC tomorrow. Will add Cefepime and consult SPL team. (2) Acute and chronic respiratory failure ([id number]) Current Visit: Yes Status: Acute Assessment and plan: Secondary to COPDE/CHFE/Afib and suspected septic emboli in lungs. patient uses [address] Chest 09/13 revealed bilateral lower lobe septic emboli as well as multiple small nodular right lung lesions, 1 is a cavitary nodule. suspicious for septic emboli. slowly improving, still on 6L NC and BIPAP at night-time. Continue nebs, Zyvox, oxygen supplementation, and BIPAP as needed. holding lasix due to elle. Qualifiers: Qualified Code(s): J96.21 - Acute and chronic respiratory failure with hypoxia (3) Acute kidney injury superimposed on CKD Current Visit: Yes Status: Acute Assessment and plan: s/p Right CVC and HD 09/07, 09/08, 09/09, 09/12, 09/14. Continue to hold lasix Nephrology following, appreciate input: urine output still not adequate. (4) GIB (gastrointestinal bleeding) Current Visit: Yes Status: Acute Assessment and plan: Secondary to colonic angiodysplasia in the setting of anticoagulation s/p hemicolectomy 09/06 POD 8, Appreciate surgery input. 09/08 Hgb at 6.5 post-surgery, she Received 2 units PRBCS 09/14 Hgb dropped to 7.4, transfused 2 units of PRBC during dialysis. fecal occult blood test. 09/15: Pt had CT abdomen and pelvis showing an elongated hyperdense collection within the right psoas muscle. consider hematoma, phlegmon or mass. repeat H/H this afternoon. Qualifiers: Qualified Code(s): K92.2 - Gastrointestinal hemorrhage, unspecified (5) Angiodysplasia of colon Current Visit: Yes Status: Acute Assessment and plan: plan as GI bleed (6) Atrial fibrillation with RVR Current Visit: Yes Status: Acute Assessment and plan: 09/11 she developed Refractory Aflutter requiring cardizem drip, cardiology was consulted 09/14: Hgb dropped to 7.4 and fecal occult blood is positive, stop heparin drip. stop IV metoprolol and transition to oral metoprolol (7) CHF (congestive heart failure) Current Visit: Yes Status: Chronic Assessment and plan: plan as above Qualifiers: Qualified Code(s): I50.32 - Chronic diastolic (congestive) heart failure (8) CKD (chronic kidney disease) stage 4, GFR 15-29 ml/min Current Visit: Yes Status: Chronic Assessment and plan: As in ELLE on CKD (9) Diabetes mellitus Current Visit: Yes Status: Chronic Assessment and plan: Hyperglycemia possibly secondary to Starting TPN accucheck in the 100s at 3 units of insulin drip. decrease TPN to 40 and may stop in AM if patient has a good oral intake. Qualifiers: Qualified Code(s): E11.22 - Type 2 diabetes mellitus with diabetic chronic kidney disease; N18.4 - Chronic kidney disease, stage 4 (severe) - Subjective Interval history: patient states that she is hungry and wants to eat. no nausea. no vomiting. - Constitutional Vitals: Temp Pulse Resp BP Pulse Ox 98.9 F 103 24 94/48 97 09/15/16 11:16 09/15/16 12:37 09/15/16 11:16 09/15/16 11:16 09/15/16 11:16 General appearance: Present: cooperative, A&O X 3, pleasant, no acute distress, obese, answers questions appropriately - Respiratory Respiratory exam: Present: CTAB - Cardiovascular Cardiovascular exam: Present: RRR - GI/Abdominal GI/Abdominal exam: Present: soft, tenderness (mild diffuse tenderness, expected after surgery). Absent: distended Additional comments: there is an area of minimal bleeding at midline suture. no dehiscence. no signs of infection. - Extremities Exam Extremities exam: Present: pedal edema - Back Exam Back exam: Absent: CVA tenderness (L), CVA tenderness (R) - Neurological Exam Neurological exam: Present: alert, oriented X3, no focal deficits. Absent: facial droop, speech deficit - Skin Skin exam: Absent: rash Internal Medicine: Result - Labs CBC & Chem 7: 09/15/16 04:30 09/15/16 04:30 Labs: Short CBC 09/14/16 09/15/16 Range/Units 15:39 04:30 WBC 5.8 (4.3-11.1) K/mcL Hgb 8.5 L (11.5-15.4) g/dL Hct 26.8 L (35.3-44.9) % Plt Count 70 L 68 L (140-400) K/mcL Neutrophils # 4.9 (1.6-8.9) K/mcL BMP 09/15/16 04:30 Sodium 133 L Potassium 3.6 Chloride 96 L Carbon Dioxide 26 BUN 33 H D Creatinine 1.97 H Glucose 142 H Calcium 7.9 L - ABG Interpretation ABG results: ABG ABG pH 7.39 pH Units (7.32-7.45) 09/13/16 21:19 ABG pCO2 45 mmHg (35-45) 09/13/16 21:19 ABG pO2 79 mmHg (85-104) L 09/13/16 21:19 ABG O2 Saturation 95 % (95-98) 09/13/16 21:19 PT/INR, D-dimer PT 9.4 Seconds (9.4-12.1) 09/12/16 11:55 - Impressions Impressions Abdomen/Pelvis CT 09/15/16 07:00 IMPRESSION: Elongated hyperdense collection is seen within the right psoas muscle, suspicious for hematoma given the given clinical indication. Psoas muscle phlegmon or mass are additional differential considerations. Small bilateral pleural effusions and bibasilar airspace disease, likely pneumonia. Given the presence of pulmonary nodules at the right base, continued follow-up to resolution is recommended. Atherosclerosis, including coronary artery calcification. Anasarca. D/ / Vamsi Hermosillo MD / Vamsi Hermosillo MD Interpreting Provider: Vamsi Hermosillo MD - VTE Documentation of Mechanical Device: Intermittent pneumatic compression device Consult Discharge Plan - Plan Referrals: Edith Peña CNP [Advanced Practice Nurse] - 09/26/16 10:15 am Kj Yost MD [Partnered Physician] - Therese Garcia CNP [Primary Care Provider] - 09/15/16 9:00 am () Prudence Escobedo MD [Partnered Physician] - 10/11/16 3:50 pm ()
[2016-09-15] MEDS ORDERED: Insulin DETEMIR 100 UNIT/ML X5UNITS SQ ONE (16:00)
[2016-09-15] MEDS: Insulin LISPRO 300 UNITS/3 ML VIAL SQ SCH ×2 (17:30→23:10)
[2016-09-15] MEDS: *HR* OxyCODONE Immed Rel 5 MG TABLET PO PRN (17:41)
[2016-09-15] MEDS: *HR* LORazepam 2 MG/ML VIAL IVP PRN (19:04)
[2016-09-16] MEDS: *HR* Acetaminophen w/Cod 300-30 mg 1 TAB TABLET PO PRN ×2 (00:30→23:39)
[2016-09-16] MEDS: Ipratropium/Albuterol Neb 3 ML IH SCH ×6 (00:48→19:55)
[2016-09-16 03:56] LABS: Hemoglobin 8.6 g/dL (11.5-15.4); Immature Granulocytes % 2.7 % (0-4)
[2016-09-16 03:57] LABS: Eosinophils # 0.1 K/mcL (0.0-0.6); Hematocrit 26.3 % (35.3-44.9); Immature Platelets 8.3 % (1.1-6.1); Lymphocytes # 0.5 K/mcL (0.6-4.6); Lymphocytes % 9.4 %; Mean Corpuscular HGB Conc 32.7 g/dL (31.6-35.5); Mean Corpuscular Hemoglobin 28.4 pg (28.0-33.3); Mean Corpuscular Volume 86.8 fL (83.0-100.0); Mean Platelet Volume 10.4 fL (9.4-12.4); Monocytes # 0.2 K/mcL (0.0-1.3); Monocytes % 4.9 %; Red Blood Count 3.03 M/mcL (3.82-4.97)
[2016-09-16 04:14] LABS: Calcium 7.9 mg/dL (8.6-10.8); Phosphorous 4.9 mg/dL (2.3-4.7)
[2016-09-16 04:33] LABS: Magnesium 2.1 mg/dL (1.6-2.6); Potassium 4.8 mEq/L (3.5-4.5)
[2016-09-16 04:38] LABS: Platelet Count 66 K/mcL (140-400)
[2016-09-16 04:39] LABS: Platelet Estimate Decreased (Normal)
[2016-09-16 04:40] LABS: Anisocytosis 1+ (Not Present); Polychromasia 1+ (Not Present)
[2016-09-16] MEDS: Insulin LISPRO 300 UNITS/3 ML VIAL SQ SCH ×5 (05:30→23:45)
--- NOTE | 2016-09-16 08:13 | General Surgery Progress Note ---
Date of Encounter: 09/16/16 Time of Encounter: 08:13 - Assessment and Plan (1) Angiodysplasia of colon Current Visit: Yes Status: Acute POD #10 Extended right hemicolectomy. Lysis of adhesions times [address] Moy 09/13 positive blood cultures growing gram-positive cocci, HD catheter was removed yesterday afternoon. CT scan of the chest also shows possible septic emboli. Abdominal CT shows an elongated hyperdense collection within the right psoas muscle. Patient has mild abdominal tenderness, incision is clean and dry. Patient's daughter reports multiple BM, bowel sounds present. Patient is febrile today (100.1). Lung sounds have improved Patient tolerating clear liquids, eating more. he patient's daughter expresses concerns over area on the right flank that she states began subcutaneous areas of petechiae following surgery. Daughter states that this area has grown and is become tender. She expresses concern that this is the same area of the psoas abscess that was found on CT scan yesterday. Will obtain US of the area today. Plan: -US right flank today -Continue to encourage oral intake -Encourage incentive spirometry when up. -Continue clear liquid diet, 300cc per shift -Maintain Watkins catheter for strict I and O's -Daily dressing change -PPI therapy daily (2) Acute and chronic respiratory failure ([id number]) Current Visit: Yes Status: Acute IS every 1 hour while awake Aggressive pulmonary toilet Continue aerosol treatments as ordered Wean oxygen as tolerated Management per medicine service Qualifiers: Respiratory failure complication: hypoxia Qualified Code(s): J96.21 - Acute and chronic respiratory failure with hypoxia (3) Acute kidney injury superimposed on CKD Current Visit: Yes Status: Acute SCr 2.77>1.97, GFR 20 Plan: IV fluids Avoid nephrotoxic medications Continue Watkins catheter for strict I's and O's Nephrology following- hemodialysis (4) Insulin dependent type 2 diabetes mellitus Current Visit: Yes Status: Chronic Glucose more controlled in the 90's-140's Continue to manage per medicine team (5) DVT prophylaxis Current Visit: No Status: Acute Continue EPCDs to bilateral lower extremities for DVT prophylaxis Continue heparin 5,000 units SQ twice daily for DVT prophylaxis Subjective Patient reports: still having pain, tolerating liquids well, flatus, bowel movement, fever Narrative: Patient seen and examined. The HD catheter was pulled yesterday afternoon. Incisional site is clean and dry. Patient ate 75% of her tender and is tolerating liquids. The patient's daughter expresses concerns over area on the right flank that she states began subcutaneous areas of petechiae following surgery. Daughter states that this area has grown and is become tender. She expresses concern that this is the same area of the psoas abscess that was found on CT scan yesterday. Objective Vital Signs - Last 8 Hours Temp Pulse Resp BP Pulse Ox 09/16/16 08:08 18 119/58 96 09/16/16 07:05 99.8 F H 90 18 119/58 96 09/16/16 04:33 21 96 09/16/16 04:06 100.1 F H 99 18 138/63 96 09/16/16 00:48 18 95 Intake and Output 09/15/16 09/16/16 09/16/16 23:59 07:59 15:59 Intake Total 300 / 300 Output Total 250 / 250 Balance -250 / -250 300 / 300 Intake: IV Fluids 300 / 300 Zyvox Premix 600mg/300mL 300 / 300 600 mg In 300 ml @ 150 mls/hr IVPB Q12HR [facility] Rx# :[id number] Output: Catheter 250 / 250 Other: Meal Dinner Percent of Meal Consumed 75% Weight 95.8 kg Blood Glucose* 151 184 Patient Weight 09/16/16 23:59 Weight 95.8 kg - General physical appearance chronically ill, obese - ENT atraumatic, normocephalic - Neck Neck exam: no masses, trachea midline - Respiratory normal expansion rales: bilateral - Cardiovascular Cardiovascular exam: Present: RRR - Abdomen Abdomen: Present: bowel sounds present, soft, tender Abdominal Tenderness: RLQ Additional Comments: The patient has an area on the right flank that is mildly erythematous and tender to that touch feels like edema upon palpation - Incision Incision: Present: clean and dry. Absent: erythema - Labs 09/16/16 03:10 09/16/16 03:10 Diabetes panel 09/16/16 Range/Units 03:10 Sodium 129 L (136-145) mEq/L Potassium 4.8 H D (3.5-4.5) mEq/L Chloride 93 L (98-109) mEq/L Carbon Dioxide 24 (19-29) mEq/L BUN 48 H D (7-20) mg/dL Creatinine 2.77 H (0.57-1.11) mg/dL Glucose 99 (70-99) mg/dL Calcium 7.9 L (8.6-10.8) mg/dL Calcium panel 09/16/16 Range/Units 03:10 Calcium 7.9 L (8.6-10.8) mg/dL Phosphorus 4.9 H (2.3-4.7) mg/dL Pituitary panel 09/16/16 Range/Units 03:10 Sodium 129 L (136-145) mEq/L Potassium 4.8 H D (3.5-4.5) mEq/L Chloride 93 L (98-109) mEq/L Carbon Dioxide 24 (19-29) mEq/L BUN 48 H D (7-20) mg/dL Creatinine 2.77 H (0.57-1.11) mg/dL Glucose 99 (70-99) mg/dL Calcium 7.9 L (8.6-10.8) mg/dL Adrenal panel 09/16/16 Range/Units 03:10 Sodium 129 L (136-145) mEq/L Potassium 4.8 H D (3.5-4.5) mEq/L Chloride 93 L (98-109) mEq/L Carbon Dioxide 24 (19-29) mEq/L BUN 48 H D (7-20) mg/dL Creatinine 2.77 H (0.57-1.11) mg/dL Glucose 99 (70-99) mg/dL Calcium 7.9 L (8.6-10.8) mg/dL - Imaging US - abdomen: pending - VTE Documentation of Mechanical Device: Intermittent pneumatic compression device Consult Discharge Plan - Plan Referrals: Edith Peña CNP [Advanced Practice Nurse] - 09/26/16 10:15 am Kj Yost MD [Partnered Physician] - Therese Garcia CNP [Primary Care Provider] - 09/15/16 9:00 am () Prudence Escobedo MD [Partnered Physician] - 10/11/16 3:50 pm () - Attending Attestation I examined this patient and my medical decision-making was reviewed with the RADIO PROGRAM DIRECTOR/PA/Advanced Practice Nurse/Resident Physician. I agree with the documented findings, disposition and treatment plan as described except to the extent set forth below. The patient is seen and evaluated on morning rounds. She is tolerating diet and his. Bowel activity. She does not complain of intermittent abdominal pain after eating. we will continue to follow closely incision is Sukumar Moy MD FACS
[2016-09-16] MEDS: Pantoprazole 40 MG VIAL IVP SCH (09:31)
[2016-09-16] MEDS: predniSONE 5 MG TABLET PO SCH (09:31)
[2016-09-16] MEDS: Furosemide 20 MG/2 ML VIAL IVP SCH ×2 (09:50→21:50)
--- NOTE | 2016-09-16 10:33 | Nephrology Progress Note ---
Date of Encounter: 09/16/16 Time of Encounter: 09:30 - Assessment and Plan (1) CKD (chronic kidney disease) stage 4, GFR 15-29 ml/min Current Visit: Yes Status: Chronic Was started on intermittent HD since I last saw the pt. The temporary HD catheter was removed d/t potential infection/bacteremia. She is not overtly needing HD today, but will have to start Lasix d/t the worsening hypervolemia. She has impressive crackles on exam, and though diuretics may impact her renal function, I will have to resume diuretics. Start Lasix 20mg IV BID and will titrate based upon UOP and will monitor the PNa. She has mild hypervolemic hyponatremia. Continue to follow a renal protective strategy. No need for COMMERCIAL DRONE PILOT at this time. Dose Rx by GFR. Strict I/Os. Will follow with you. Thank you. (2) Acute exacerbation of chronic obstructive airways disease Current Visit: Yes Status: Acute As per primary (3) Hypertension Current Visit: Yes Status: Chronic See above Qualifiers: Hypertension type: essential hypertension Qualified Code(s): I10 - Essential (primary) hypertension (4) Hyponatremia Current Visit: Yes Status: Resolved See above Subjective Principal diagnosis: ELLE on CKD, COPD, PAF Interval history: Pt was s/e earlier today. She did not affirm N/V/D or uremic complaints. Shortness of breath has been worsening and she is having more coughing. Her daughter who is an RN updated me on the interval hx since I last rounded on the patient. Objective - Vital Signs Vital signs: Vital Signs Temp Pulse Resp BP Pulse Ox 09/16/16 08:08 18 119/58 96 09/16/16 07:05 99.8 F H 90 18 119/58 96 09/16/16 04:33 21 96 09/16/16 04:06 100.1 F H 99 18 138/63 96 09/16/16 00:48 18 95 09/15/16 23:05 100.6 F H 99 22 135/69 96 09/15/16 20:53 20 96 09/15/16 19:03 100.6 F H 117 18 148/82 92 09/15/16 17:30 114 09/15/16 17:04 98.8 F 107 18 134/69 94 09/15/16 15:58 20 93 09/15/16 12:37 103 09/15/16 11:16 98.9 F 92 24 94/48 97 09/15/16 10:58 25 95 Intake and Output 09/15/16 09/16/16 09/16/16 23:59 07:59 15:59 Intake Total 300 / 300 300 / 300 Output Total 250 / 250 Balance -250 / -250 300 / 300 300 / 300 Intake: IV Fluids 300 / 300 300 / 300 Zyvox Premix 600mg/300mL 300 / 300 300 / 300 600 mg In 300 ml @ 150 mls/hr IVPB Q12HR [facility] Rx# :[id number] Output: Catheter 250 / 250 Other: Meal Dinner Percent of Meal Consumed 75% Weight 95.8 kg Blood Glucose* 151 184 214 Patient Weight 09/16/16 23:59 Weight 95.8 kg - General Appearance General appearance: Present: obese, chronically ill, fatigue, frail EENT: Present: ATNC, PERRL, mucous membranes moist Neck: Present: supple Respiratory: Present: wheezing, rales, course breath sounds Cardiology: Present: edema, regular rate, regular rhythm, normal S1, normal S2 Additional Comments: No dialysis catheter. Right anterior triangle had a clean dressing in place Gastrointestinal: Present: normoactive bowel sounds, obese Integumentary: Present: no rash, warm and dry Neurologic: Present: no focal deficit, no asterixis, alert and oriented x3 Musculoskeletal: Present: no cyanosis, no clubbing Psychiatric: Present: mood/affect appropriate, cooperative - Lab 09/16/16 03:10 09/16/16 03:10 Most recent lab results ABG pH 7.39 pH Units (7.32-7.45) 09/13/16 21:19 ABG pCO2 45 mmHg (35-45) 09/13/16 21:19 ABG pO2 79 mmHg (85-104) L 09/13/16 21:19 ABG HCO3 27.2 mEQ/L (21-27) H 09/13/16 21:19 ABG O2 Saturation 95 % (95-98) 09/13/16 21:19 Calcium 7.9 mg/dL (8.6-10.8) L 09/16/16 03:10 Phosphorus 4.9 mg/dL (2.3-4.7) H 09/16/16 03:10 Magnesium 2.1 mg/dL (1.6-2.6) 09/16/16 03:10 Urine Creatinine 40 mg/dL 08/25/16 13:19 Urine Sodium 30.0 mEq/L 08/25/16 13:19 Urine Total Protein 22 mg/dL (1-14) H 08/24/16 14:18 - VTE Documentation of Mechanical Device: Intermittent pneumatic compression device Consult Discharge Plan - Plan Referrals: Edith Peña CNP [Advanced Practice Nurse] - 09/26/16 10:15 am Kj Yost MD [Partnered Physician] - Therese Garcia CNP [Primary Care Provider] - 09/15/16 9:00 am () Prudence Escobedo MD [Partnered Physician] - 10/11/16 3:50 pm ()
--- NOTE | 2016-09-16 11:10 | Infectious Disease Progress No ---
Date of Encounter: 09/16/16 Time of Encounter: 11:08 - Assessment and Plan (1) Leukocytosis Current Visit: Yes Status: Resolved The patient had a WBC of 16 post-op--? reactive vs. infectious etiology. WBC has trended back down to normal. Qualifiers: Leukocytosis type: unspecified Qualified Code(s): D72.829 - Elevated white blood cell count, unspecified (2) Fever Current Visit: Yes Status: Acute Etiology unclear, but likely infectious. The patient spiked a fever with a Tmax of 100.6 this morning. Repeat blood cultures x 2 sets now. Qualifiers: Fever type: unspecified Qualified Code(s): R50.9 - Fever, unspecified (3) Bacteremia due to Enterococcus Current Visit: Yes Status: Acute Source unclear, but possibly intra-abdominal vs. psoas muscle abscess vs. dialysis catheter infection. Blood culture drawn 09/08/16 came back positive 1/1 set for VRE. Repeat blood cultures drawn 09/11/16 are NGTD x 2 sets. Repeat blood cultures drawn 09/13/16 are positive 1/2 sets (from the TDC) for GPC , likely CONS based on PCR results. Peripheral stick blood culture remains NGTD. Additional blood cultures drawn from the TDC 09/14/16 are NGTD. Clinical exam reveals no evidence of endocarditis stigmata. However, due to the presence of possible septic emboli and the new-onset of A-fib RVR, we will need to rule out IE. Get TTE. If negative, will likely need to proceed with VIC to rule out IE. The patient has three minor Modified Pacheco's Criteria --> possibe IE. Start on Zyvox / per the primary team. Although Zyvox is inferior to Daptomycin, the patient's CT of the chest reveals possible septic emboli. Because Daptomycin is inactivated by lung surfactant, we will continue Zyvox 600mg IV BID. On HD days, give at least one dose after HD. Duration of treatment depends on the clinical picture. No dose-adjustment of Zyvox required. (4) Bacteremia due to Staphylococcus Current Visit: Yes Status: Acute Source likely the temporary dialysis catheter --> true infection vs. contaminant ? Blood culture drawn 09/13/16 from the HD catheter is positive 1/1 set for GPC. PCR picked up mecA gene and Staph species, but not Staph aureus. Blood culture drawn 09/13/16 from a peripheral stick at the same time is NGTD. Additional blood cultures drawn 09/14/16 (from the TDC) are NGTD. TDC was removed 09/15/16. Continue Zyvox as above for VRE bacteremia. Discussed with Dr. Corona. If TDC needed over the weekend, okay to re-insert. (5) HCAP (healthcare-associated pneumonia) Current Visit: Yes Status: Resolved Causative organism unclear. CXR completed on admission revealed bilateral perihilar infiltrates. Repeat CXR completed 09/13/16 showed bibasilar atelectasis with pleural effusion. CT of the chest completed 09/13/16 showed bibasilar airspace disease with multiple small nodular lesions in the right lung with at least 1 cavitary nodule concerning for septic emboli. Patient previous treated with 8 days of IV Cefepime. Consider requesting pulmonology re-evaluate the patient. Consider swallow study to evaluate for possible aspiration given the distribution of the PNA. Re-start Cefepime. Will do 1 gram Q24H since the patient is no longer getting HD regularly. Dose discussed with Brianna Holden. Give after HD on the days patient gets HD. Continue Zyvox as above. Duration of treatment depends on the clinical picture. Monitor renal function and dose-adjust antibiotics. (6) Cavitary lesion of lung Current Visit: Yes Status: Acute CT of the chest completed 09/13/16 showed bilateral lower lobe airspace disease with multiple nodular lesions in the right lung with at least 1 cavitary lesion concerning for septic emboli. Based on the patient's recent bacteremia, septic emboli is a possibility. Continue antibiotics as above. Consider re-consulting pulmonology for their input. (7) Mass of psoas muscle Current Visit: Yes Status: Acute CT of the abdomen and pelvis completed 09/15/16 showed a hyperdense collection in the right psoas muscle suspicious for hematoma vs. phlegmon vs. mass. Etiology not entirely clear.--> ? source of bacteremia RP UTS completed today is unyielding. Consider consulting IR for possible aspiration. (8) Acute kidney injury superimposed on CKD Current Visit: Yes Status: Acute The patient has required CELL TUBER MACHINE with the placement of a temporary dialysis catheter. Nephrology consulted and following. ELLE appears to be stable. No CELL TUBER MACHINE required today per nephrology. Dose-adjust antibiotics for HD and avoid nephrotoxins as able. (9) Acute and chronic respiratory failure Current Visit: No Status: Chronic Likely multifactorial--> PNA, fluid overload, septic emboli, COPD. Appears improved, but the patient does appear to have a large amount of fluid on board\. The has required BIPAP previously, but is currently on O2 via simple mask. Lasix has been re-started per the nephrology team. Continue supportive care per the primary team. Qualifiers: Respiratory failure complication: unspecified whether with hypoxia or hypercapnia Qualified Code(s): J96.20 - Acute and chronic respiratory failure , unspecified whether with hypoxia or hypercapnia (10) GIB (gastrointestinal bleeding) Current Visit: Yes Status: Acute Status post colonoscopy 08/31/[address] Escobedo which revealed seven colonic angioectasias. Right hemicolectomy recommended. Status post extended right hemicolectomy 09/05/[address] Moy. Operative report reviewed. Hgb down to 7.4 09/14/16. Received 2 units of PRBCs and hemoglobin only came up to 8.5 09/15/16. Repeat Hgb this morning stable at 8.6. Repeat FOBT was positive. Management per the general surgery and GI teams. Qualifiers: GI bleed type/associated pathology: unspecified gastrointestinal hemorrhage type Qualified Code(s): K92.2 - Gastrointestinal hemorrhage, unspecified (11) Status post right hemicolectomy Current Visit: Yes Status: Acute POD #11. Status post extended right hemicolectomy with extensive KACY 09/06/[address] Moy. Appears to be doing well. Able to tolerate full liquids and is passing flatus and having BMs. TPN discontinued. Further management per the surgery team. (12) Acute exacerbation of chronic obstructive airways disease Current Visit: Yes Status: Acute (13) Anemia Current Visit: Yes Status: Chronic Likely secondary to GI bleed. Hgb stable at 8.6 this morning. Management per the primary and surgery teams. Qualifiers: Anemia type: iron deficiency Iron deficiency anemia type: unspecified iron deficiency Qualified Code(s): D50.9 - Iron deficiency anemia, unspecified (14) Atrial fibrillation with RVR Current Visit: Yes Status: Acute (15) CHF (congestive heart failure) Current Visit: Yes Status: Chronic Qualifiers: Congestive heart failure type: diastolic Congestive heart failure chronicity: chronic Qualified Code(s): I50.32 - Chronic diastolic (congestive ) heart failure (16) CKD (chronic kidney disease) stage 4, GFR 15-29 ml/min Current Visit: Yes Status: Chronic (17) Diabetes mellitus Current Visit: Yes Status: Chronic Qualifiers: Diabetes mellitus type: type 2 Diabetes mellitus complication status: with kidney complications Diabetes mellitus complication detail: with chronic kidney disease Diabetes mellitus 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 No acute events noted overnight. Status post removal of the right neck temporary dialysis catheter. Patient states she feels okay today. Complains of pain in the right side of the abdomen. Denies any chills or rigors, but does have documented fevers with a MAXIMUM TEMPERATURE of 100.6. Denies chest pain, does report shortness of breath productive moist cough. Denies nausea and states she tolerated a full liquid breakfast okay. Family does report that the patient complains of abdominal pain shortly after eating. Denies diarrhea. States she is passing gas and having bowel movements. Denies pain in any extremities. Infect Dis PN-Objective Data - Labs CBC & Chem 7: 09/16/16 03:10 09/16/16 03:10 Labs: Laboratory Results - last 24 hr 09/15/16 09/15/16 09/15/16 00:41 01:33 02:30 WBC RBC Hgb Hct MCV MCH MCHC RDW Plt Count MPV Immature Gran % Seg Neutrophils % Lymphocytes % Monocytes % Eosinophils % Basophils % Neutrophils # Lymphocytes # Monocytes # Eosinophils # Basophils # Platelet Estimate Immature Plt Fraction Polychromasia Anisocytosis PT INR Sodium Potassium Chloride Carbon Dioxide BUN Creatinine Est GFR ( Amer) Est GFR (Non-Af Amer) BUN/Creatinine Ratio Glucose POC Glucose 66 109 H 171 H Calculated Osmolality Calcium Phosphorus Magnesium 09/15/16 09/15/16 09/15/16 03:35 04:30 05:27 WBC RBC Hgb Hct MCV MCH MCHC RDW Plt Count MPV Immature Gran % Seg Neutrophils % Lymphocytes % Monocytes % Eosinophils % Basophils % Neutrophils # Lymphocytes # Monocytes # Eosinophils # Basophils # Platelet Estimate Immature Plt Fraction Polychromasia Anisocytosis PT INR Sodium Potassium Chloride Carbon Dioxide BUN Creatinine Est GFR ( Amer) Est GFR (Non-Af Amer) BUN/Creatinine Ratio Glucose POC Glucose 186 H 144 H 97 H Calculated Osmolality Calcium Phosphorus Magnesium 09/15/16 09/15/16 09/15/16 06:50 08:05 09:05 WBC RBC Hgb Hct MCV MCH MCHC RDW Plt Count MPV Immature Gran % Seg Neutrophils % Lymphocytes % Monocytes % Eosinophils % Basophils % Neutrophils # Lymphocytes # Monocytes # Eosinophils # Basophils # Platelet Estimate Immature Plt Fraction Polychromasia Anisocytosis PT INR Sodium Potassium Chloride Carbon Dioxide BUN Creatinine Est GFR ( Amer) Est GFR (Non-Af Amer) BUN/Creatinine Ratio Glucose POC Glucose 100 H 178 H 197 H Calculated Osmolality Calcium Phosphorus Magnesium 09/15/16 09/15/16 09/15/16 10:01 11:12 12:18 WBC RBC Hgb Hct MCV MCH MCHC RDW Plt Count MPV Immature Gran % Seg Neutrophils % Lymphocytes % Monocytes % Eosinophils % Basophils % Neutrophils # Lymphocytes # Monocytes # Eosinophils # Basophils # Platelet Estimate Immature Plt Fraction Polychromasia Anisocytosis PT INR Sodium Potassium Chloride Carbon Dioxide BUN Creatinine Est GFR ( Amer) Est GFR (Non-Af Amer) BUN/Creatinine Ratio Glucose POC Glucose 153 H 79 53 L Calculated Osmolality Calcium Phosphorus Magnesium 09/15/16 09/15/16 09/15/16 13:03 14:05 14:59 WBC RBC Hgb Hct MCV MCH MCHC RDW Plt Count MPV Immature Gran % Seg Neutrophils % Lymphocytes % Monocytes % Eosinophils % Basophils % Neutrophils # Lymphocytes # Monocytes # Eosinophils # Basophils # Platelet Estimate Immature Plt Fraction Polychromasia Anisocytosis PT INR Sodium Potassium Chloride Carbon Dioxide BUN Creatinine Est GFR ( Amer) Est GFR (Non-Af Amer) BUN/Creatinine Ratio Glucose POC Glucose 113 H 172 H 216 H Calculated Osmolality Calcium Phosphorus Magnesium 09/15/16 09/15/16 09/15/16 17:06 17:55 19:00 WBC RBC Hgb Hct MCV MCH MCHC RDW Plt Count MPV Immature Gran % Seg Neutrophils % Lymphocytes % Monocytes % Eosinophils % Basophils % Neutrophils # Lymphocytes # Monocytes # Eosinophils # Basophils # Platelet Estimate Immature Plt Fraction Polychromasia Anisocytosis PT INR Sodium Potassium Chloride Carbon Dioxide BUN Creatinine Est GFR ( Amer) Est GFR (Non-Af Amer) BUN/Creatinine Ratio Glucose POC Glucose 310 H 375 H 339 H Calculated Osmolality Calcium Phosphorus Magnesium 09/15/16 09/15/16 09/15/16 20:12 21:01 22:01 WBC RBC Hgb Hct MCV MCH MCHC RDW Plt Count MPV Immature Gran % Seg Neutrophils % Lymphocytes % Monocytes % Eosinophils % Basophils % Neutrophils # Lymphocytes # Monocytes # Eosinophils # Basophils # Platelet Estimate Immature Plt Fraction Polychromasia Anisocytosis PT INR Sodium Potassium Chloride Carbon Dioxide BUN Creatinine Est GFR ( Amer) Est GFR (Non-Af Amer) BUN/Creatinine Ratio Glucose POC Glucose 234 H 222 H 175 H Calculated Osmolality Calcium Phosphorus Magnesium 09/15/16 09/16/16 09/16/16 23:01 03:10 03:10 WBC 4.9 RBC 3.03 L Hgb 8.6 L Hct 26.3 L MCV 86.8 MCH 28.4 MCHC 32.7 RDW 16.0 H Plt Count 66 L MPV 10.4 Immature Gran % 2.7 Seg Neutrophils % 82.0 Lymphocytes % 9.4 Monocytes % 4.9 Eosinophils % 1.0 Basophils % 0.0 Neutrophils # 4.0 Lymphocytes # 0.5 L Monocytes # 0.2 Eosinophils # 0.1 Basophils # 0.0 Platelet Estimate Decreased L Immature Plt Fraction 8.3 H Polychromasia 1+ A Anisocytosis 1+ A PT 11.0 INR 1.0 Sodium Potassium Chloride Carbon Dioxide BUN Creatinine Est GFR ( Amer) Est GFR (Non-Af Amer) BUN/Creatinine Ratio Glucose POC Glucose 151 H Calculated Osmolality Calcium Phosphorus Magnesium 09/16/16 03:10 WBC RBC Hgb Hct MCV MCH MCHC RDW Plt Count MPV Immature Gran % Seg Neutrophils % Lymphocytes % Monocytes % Eosinophils % Basophils % Neutrophils # Lymphocytes # Monocytes # Eosinophils # Basophils # Platelet Estimate Immature Plt Fraction Polychromasia Anisocytosis PT INR Sodium 129 L Potassium 4.8 H D Chloride 93 L Carbon Dioxide 24 BUN 48 H D Creatinine 2.77 H Est GFR ( Amer) 20 L Est GFR (Non-Af Amer) 17 L BUN/Creatinine Ratio 17 Glucose 99 POC Glucose Calculated Osmolality 281 Calcium 7.9 L Phosphorus 4.9 H Magnesium 2.1 Cultures: Cultures 09/11/16 04:19 Blood Culture - Final Peripheral Venipuncture No growth. 09/11/16 04:15 Blood Culture - Final Peripheral Venipuncture No growth. 09/14/16 15:39 Blood Culture - Preliminary Central Venous Catheter No growth. 09/14/16 15:39 Blood Culture - Preliminary Central Venous Catheter No growth. 09/13/16 15:08 Blood Culture - Preliminary Peripheral Venipuncture No growth. 09/13/16 15:40 Blood Culture - Preliminary Central Venous Catheter Gram Positive Cocci 09/13/16 13:00 Urine Culture - Final Urine,Clean Catch No growth. 09/08/16 08:04 Blood Culture - Final Peripheral Venipuncture Vanc. Resistant Enterococcus Serology 09/14/16 09/13/16 09/13/16 Range/Units 16:11 15:40 13:00 Urine Color Yellow (Yellow) Urine Clarity Cloudy A (Clear) Urine pH 6.0 (5.0-8.0) pH Units Ur Specific Lima 1.012 (1.010-1.025) Urine Protein 100 H (Neg-Trace) mg/dL Urine Glucose (UA) Normal (Normal) mg/dL Urine Ketones Negative (Negative) mg/dL Urine Blood Small H (Negative) Urine Nitrite Negative (Negative) Urine Bilirubin Negative (Negative) Urine Urobilinogen Normal (Normal) mg/dL Ur Leukocyte Esterase Small H (Negative) Urine Microscopic RBC 0-3 (0-3) per hpf Urine Microscopic WBC 15-30 H (0-3) per hpf Ur Squamous Epith Cells Many H (None-Few) per lpf Urine Bacteria None Seen (None-Few) per hpf Hyaline Casts None Seen (None-Few) per lpf Urine Yeast Many H (None Seen) per hpf Ur Culture Indicated? YES A (NO) Stool Occult Blood Positive A (Negative) A. baumannii (PCR) Not Detected (Not Detect) Polly albicans (PCR) Not Detected (Not Detect) C. glabrata (PCR) Not Detected (Not Detect) C. krusei (PCR) Not Detected (Not Detect) C. parapsilosis (PCR) Not Detected (Not Detect) C. tropicalis (PCR) Not Detected (Not Detect) Enterobacteriac sp PCR Not Detected (Not Detect) E. cloacae complex PCR Not Detected (Not Detect) Enterococcus sp PCR Not Detected (Not Detect) E. coli (PCR) Not Detected (Not Detect) H. influenzae (PCR) Not Detected (Not Detect) Hep Bs Antigen (Nonreactive) Hep Bs Antibody mIU/mL Klebsiella oxytoca PCR Not Detected (Not Detect) Klebsiella pneumoniae Not Detected (Not Detect) List. monocytogenes PCR Not Detected (Not Detect) N. meningitidis (PCR) Not Detected (Not Detect) Proteus species (PCR) Not Detected (Not Detect) Serratia marcescens PCR Not Detected (Not Detect) Staphylococcus sp PCR DETECTED A (Not Detect) Staph aureus (PCR) Not Detected (Not Detect) mecA-Methicil Res Gene DETECTED A (Not Detect) Streptococcus sp PCR Not Detected (Not Detect) Group A Strep DNA Not Detected (Not Detect) Group B Strep (PCR) Not Detected (Not Detect) Strep pneumoniae (PCR) Not Detected (Not Detect) P. aeruginosa (PCR) Not Detected (Not Detect) Minerva/B-Vanco Res Genes N/A (Not Detect) KPC (blaKPC) Detect PCR N/A (Not Detect) 09/08/16 09/07/16 Range/Units 08:04 13:42 Urine Color (Yellow) Urine Clarity (Clear) Urine pH (5.0-8.0) pH Units Ur Specific Lima (1.010-1.025) Urine Protein (Neg-Trace) mg/dL Urine Glucose (UA) (Normal) mg/dL Urine Ketones (Negative) mg/dL Urine Blood (Negative) Urine Nitrite (Negative) Urine Bilirubin (Negative) Urine Urobilinogen (Normal) mg/dL Ur Leukocyte Esterase (Negative) Urine Microscopic RBC (0-3) per hpf Urine Microscopic WBC (0-3) per hpf Ur Squamous Epith Cells (None-Few) per lpf Urine Bacteria (None-Few) per hpf Hyaline Casts (None-Few) per lpf Urine Yeast (None Seen) per hpf Ur Culture Indicated? (NO) Stool Occult Blood (Negative) A. baumannii (PCR) Not Detected (Not Detect) Polly albicans (PCR) Not Detected (Not Detect) C. glabrata (PCR) Not Detected (Not Detect) C. krusei (PCR) Not Detected (Not Detect) C. parapsilosis (PCR) Not Detected (Not Detect) C. tropicalis (PCR) Not Detected (Not Detect) Enterobacteriac sp PCR Not Detected (Not Detect) E. cloacae complex PCR Not Detected (Not Detect) Enterococcus sp PCR DETECTED A (Not Detect) E. coli (PCR) Not Detected (Not Detect) H. influenzae (PCR) Not Detected (Not Detect) Hep Bs Antigen Nonreactive (Nonreactive) Hep Bs Antibody 3.83 mIU/mL Klebsiella oxytoca PCR Not Detected (Not Detect) Klebsiella pneumoniae Not Detected (Not Detect) List. monocytogenes PCR Not Detected (Not Detect) N. meningitidis (PCR) Not Detected (Not Detect) Proteus species (PCR) Not Detected (Not Detect) Serratia marcescens PCR Not Detected (Not Detect) Staphylococcus sp PCR Not Detected (Not Detect) Staph aureus (PCR) Not Detected (Not Detect) mecA-Methicil Res Gene N/A (Not Detect) Streptococcus sp PCR Not Detected (Not Detect) Group A Strep DNA Not Detected (Not Detect) Group B Strep (PCR) Not Detected (Not Detect) Strep pneumoniae (PCR) Not Detected (Not Detect) P. aeruginosa (PCR) Not Detected (Not Detect) Minerva/B-Vanco Res Genes DETECTED A (Not Detect) KPC (blaKPC) Detect PCR N/A (Not Detect) - Impressions Impressions Retroperitoneum Ultrasound 09/16/16 08:30 IMPRESSION: 1. Limited visualization of the kidneys. No gross abnormality. 2. Unable to visualize the psoas muscle. D/ / Romario Mcdonald MD / Romario Mcdonald MD Interpreting Provider: Romario Mcdonald MD Exam - Constitutional Vitals: Temp Pulse Resp BP Pulse Ox 99.8 F H 90 18 119/58 96 09/16/16 07:05 09/16/16 07:05 09/16/16 08:08 09/16/16 08:08 09/16/16 08:08 General appearance: cooperative, no acute distress, obese - Head Head exam: Present: atraumatic, normal inspection, normocephalic - Eye Eye exam: Present: EOMI, normal appearance, PERRL Pupils: Present: normal accommodation Additional comments: No subconjunctival hemorrhage noted. - ENT ENT exam: Present: mucous membranes moist - Neck Neck exam: Present: full ROM, normal inspection. Absent: meningismus Additional comments: Pressure dressing noted to the right lateral neck clean, dry, and intact. - Respiratory Respiratory exam: Present: rales (Throughout all lung schwarz.), wheezes (Final expiratory wheezes noted to the left upper and left lower lobes.). Absent: CTAB , rhonchi, tachypnea - Cardiovascular Cardiovascular exam: Present: RRR, +S1, +S2 - GI/Abdominal GI/Abdominal exam: Present: normal bowel sounds, soft, tenderness (Generalized) . Absent: distended Additional comments: Erythematous lesion noted to the right lateral abdomen that is tender to palpation. No warmth noted. Watkins catheter noted to be draining dark yellow urine. Midline abdominal incision with alba intact and wound edges well approximated. Small amount of sero-sanguinous drainage noted from the middle of the incision, but no shereen bleeding or pus noted. No surrounding erythema or warmth. - Extremities Exam Extremities exam: Absent: joint swelling, pedal edema, tenderness - Back Exam Back exam: Present: normal inspection. Absent: paraspinal tenderness, vertebral tenderness - Neurological Exam Neurological exam: Present: alert, oriented X3, no focal deficits. Absent: facial droop, speech deficit Additional comments: Drowsy, but responds appropriately to verbal stimuli. Follows commands. Answers questions appropriately. - Psychiatric Psychiatric exam: Present: normal affect, normal mood - Skin Skin exam: Present: dry, intact, normal color, warm - VTE Documentation of Mechanical Device: Intermittent pneumatic compression device Consult Discharge Plan - Plan Referrals: Edith Peña CNP [Advanced Practice Nurse] - 09/26/16 10:15 am Kj Yost MD [Partnered Physician] - Therese Garcia CNP [Primary Care Provider] - 09/15/16 9:00 am () Prudence Escobedo MD [Partnered Physician] - 10/11/16 3:50 pm () - Attending Attestation I examined this patient and my medical decision-making was reviewed with the WIRE SPINNER/PA/Advanced Practice Nurse/Resident Physician. I agree with the documented findings, disposition and treatment plan as described except to the extent set forth below.
[2016-09-16] MEDS ORDERED: Cefepime HCl 1,000 MG in D5% in Water (Mini-Bag+) 100 ML IVPB STA (11:30)
--- NOTE | 2016-09-16 13:00 | Anesthesia Evaluation PreOp ---
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 History: CVA (S/P CVA x2, residual left sided weakness) Other Medical History: Renal (CKD stage 4), Diabetes Type II, GERD Anesthesia History: No Prior Anesthetic Complications, Past Anesthesia (SHAKEEL) Alcohol Use: none Drug use: none Medications and Allergies Cetirizine HCl [Zyrtec] 10 mg PO HS 04/17/15 [History] Cholecalciferol (Vitamin D3) [Vitamin D3] 2,000 unit PO DAILY 04/17/15 [History] Glimepiride 4 mg PO QAM 04/17/15 [History] Promethazine [Phenergan] 12.5 - 25 mg PO Q6-8H PRN 04/17/15 [History] Albuterol Sulfate [Albuterol Inhaler] 2 puff IH Q6H PRN 10/12/15 [History] Furosemide [Lasix] 20 mg PO DAILY 10/12/15 [History] Omeprazole [PriLOSEC] 20 mg PO DAILY 10/12/15 [History] amLODIPine [Norvasc] 10 mg PO DAILY 01/26/16 [History] Ascorbate Calcium [Vitamin C] 500 mg PO DAILY 06/14/16 [History] Atorvastatin [Lipitor] 10 mg PO HS 06/14/16 [History] Calcitriol [Rocaltrol] 0.25 mcg PO DAILY 06/14/16 [History] Docusate [Colace] 100 mg PO DAILY PRN 06/14/16 [History] Guaifenesin [Mucinex] 600 mg PO Q12H PRN 06/14/16 [History] Linagliptin [Tradjenta] 5 mg PO DAILY 06/14/16 [History] Alendronate Sodium [Fosamax] 70 mg PO QWEEK 06/22/16 [History] Budesonide/Formoterol 80/4.5 [Symbicort 80/4.5] 2 puff IH Q12H 06/22/16 [ History] Calcium Carbonate [Calcium] 600 mg PO BID 06/22/16 [History] Albuterol Neb [Proventil Neb] 2.5 mg IH Q4H PRN 07/27/16 [History] Carvedilol 3.125 mg PO BID 07/27/16 [History] Famotidine [Pepcid] 20 mg PO BID 07/27/16 [History] Sucralfate [Carafate] 1 gm PO ACHS 07/27/16 [History] cloNIDine HCl [CloNIDine HCl] 0.1 mg PO Q8H 07/27/16 [History] HYDROcodone/Acet 7.5/325 mg [Chamberlain 7.5-325 mg] 1 tab PO Q6H PRN 08/02/16 [ History] Insulin ASPART [NovoLOG] 6 - 18 unit SQ ACHS 08/02/16 [History] Insulin Glargine,Hum.rec.anlog [Lantus Solostar] 10 unit SQ QAM 08/02/16 [ History] Acetaminophen w/Cod 300-30 mg [Tylenol w/Codeine #3] 1 each PO Q4H PRN 08/15/16 [History] Clopidogrel [Plavix] 75 mg PO DAILY 08/15/16 [History] predniSONE [PredniSONE] 10 mg PO TAPER 08/15/16 [History] Donepezil HCl [Aricept] 5 mg PO HS 08/22/16 [History] Insulin Glargine,Hum.rec.anlog [Lantus Solostar] 8 unit SQ QPM 08/22/16 [History ] Ipratropium/Albuterol Neb [Duoneb] 3 ml IH Q4HR 08/22/16 [History] Ipratropium/Albuterol Neb [Duoneb] 3 ml IH QID PRN 08/22/16 [History] Iron Polysaccharide Complex [Pro Fe] 180 mg PO DAILY 08/22/16 [History] Letrozole [Femara] 2.5 mg PO DAILY 08/22/16 [History] Oxycodone HCl/Acetaminophen [Percocet 5-325 mg Tablet] 1 each PO Q4H PRN [History] Allergies aspirin [ASA] Allergy (Verified 08/18/16 15:30) Swelling of Lip/Tongue/Throat NSAIDS (Non-Steroidal Anti-Inflamma Allergy (Verified 08/18/16 15:30) Swelling of Lip/Tongue/Throat Penicillins Allergy (Verified 08/18/16 15:30) Hives iron Adverse Reaction (Verified 08/18/16 15:30) Unknown Push only - Meds/Allergy Pre-op Review Medications Reviewed: Yes Allergies Reviewed: Yes Beta Blockers on Current Med List: Yes If Beta Blockers taken, Date/Time (Last Dose taken): 09/16/2016 at 0931 Anesthesia Results - Labs 09/16/16 03:10 09/16/16 03:10 - Imaging EKG: report reviewed (09/10/2016 A-Flutter/tachycardia with RVR, NSST abnormality) Additional studies: 09/15/2016 Echo LVEF 65% mild LV diastolic dysfunction no obvious significant valvular dysfunction 06/23/2016 Echo EF 60-65% moderately dilated LA mild LV diastolic dysfunction no significant valvular dysfunction Anesthesia Exam Vital Signs/O2 Sat/Glucose, Most Recent Temp Pulse Resp BP Pulse Ox 98.6 F 92 16 125/58 91 09/16/16 11:17 09/16/16 11:17 09/16/16 11:44 09/16/16 11:17 09/16/16 11:44 Blood Glucose* 214 Height: 5'5''/1.65 m Weight: 211 lbs/95.8 kg NPO (# of Hours): 8 Pain Scale: 0 Pain Scale Used: Numeric (1 - 10) - HEENT Pupil (Motor): EOMI Mallampati: III Teeth: Normal, Prosthesis Denture Type: Upper: Complete Oral Opening: Greater than 3 - KNOWLEDGE ARCHITECT LOC: Oriented KNOWLEDGE ARCHITECT Motor: Normal RUE, Normal RLE, Normal Face, Deficit LUE, Deficit LLE KNOWLEDGE ARCHITECT Sensory: Normal: RUE, LUE, RLE, LLE, Face - Cardiac Rhythm: Regular Murmur: None - Pulmonary Breath Sounds: bilateral Rhonchi Respiratory Effort: Symmetrical Anesthesia Assess/Plan ASA Score: 4 Modified Josue Scale for Level of Consciousness: Cooperative, oriented, and tranquil Anesthetic Plan: MAC Monitoring Plan: Standard Monitors
[2016-09-16] MEDS ORDERED: 0.9 % Sodium Chloride 1,000 ML ONE (13:37)
--- NOTE | 2016-09-16 14:30 | Anesthesia Evaluation Post Op ---
Date of Encounter: 09/16/16 Time of Encounter: 14:01 - Vital Signs Vital Signs: vss - Lungs Lungs: Rhonchi - Airway Airway: Non-obstructed - Cardiovascular Baseline Rhythm - Mental Status Mental Status: Asleep with brisk response to light stimulation - Pain Pain Scale used: Walsh-Harshal (Faces) (no apparent distress) - Hydration Hydration: NPO, Watkins catheter
--- NOTE | 2016-09-16 14:54 | ECHO - Doppler Report ---
Transesophageal Echocardiogram Name: Dorothy Parks Date of Study: 09/16/2016 Date: 1940 Ht: 65.0in Medical Record#: [id number] Age: 76 Wt: 211.0lb Gender: Female BSA: 2.02 Order #: [id number] Location: [facility] Room #: 2N01 Reading Physician: Toby Mcclure DO, [facility] [employer] Supervisor: Charlie Stringer RN Ordering Physician: Nelia Del Valle MD Primary Physician: Therese Garcia CNP Indications: Bacteremia Findings: * Unable to successfully intubate the patient's esophagus. * Despite changes in patient's body position (supine at 30 degrees to left lateral decubitus) and head position, the scope naturally preferred the trachea. The esophagus could not be intubated. Per nursing, swallow evaluation has been ordered to evaluate possible aspiration. The procedure was aborted. Recommend complete swallow evaluation. If procedure to be performed, recommend re-schedule, possibly in the operating room. Medication Given: Time Medication Dose Units Route 13:40 Propofol 120 mg IV 13:40 Lidocaine 40 mg IV Procedure Summary: After explaining the risks, benefits, and alternatives of the procedure to the patient and daughter in detail and answering all questions to satisfaction, an informed consent was obtained in writing. The patient was NPO for the six hours prior to the procedure. The patient denied dysphagia, odynophagia, and loose teeth. The anesthesia department monitored the patient with periodic automated blood pressures and continuous pulse oximetry and telemetry. Continuous oxygen was administered by a face mask. The patient was placed in the full upright position and the posterior oropharynx was anesthetized as above and complete suppression of the gag reflex was obtained. The patient was then placed supine at 30 degrees. Attempt was made to pass the probe, but was not successful. Patient was placed in the left lateral decubitus position. Attempt was made again, but the esophagus was not intubated. It appeared the scope had a preference towards the airway, rather than the esophagus. Despite changing patient's body and head position, as well as changing probe placement, the esophagus could not be intubated. Procedure was aborted. Patient's vitals were stable throughout. Complications: Difficulty Passing Probe History: Previous Echo09/15/2016 BP 125 / 58 Updated by Toby Mcclure DO, FACSharon, JOSÉ, FASDONOVAN on 09/16/2016 2:46:33 PM electronically signed on 09/16/2016 2:49:39 PM with status of Final
--- NOTE | 2016-09-16 17:23 | Internal Med Progress Note ---
Date of Encounter: 09/16/16 Time of Encounter: 14:00 - Assessment and plan (1) Bacteremia due to Enterococcus Current Visit: Yes Status: Acute Assessment and plan: 09/07 Patient has a Right dialysis CVC placed 09/08 Blood culture drawn due to leukocytosis and grew VRE 05/08 set 09/09 started on IV Zyvox. 09/11 Blood cultures, peripherally are negative 09/13 blood cultures x1 from Right Dialysis CVC growing GPC staph. peripheral blood cultures NGTD. 09/15 Dialysis catheter was removed, tip culture NGTD. CT chest findings suggestive of septic emboli. consult EXHIBITOR SALES. started on cefepime and continue on Zyvox day 7. 09/16 Temp of 100.6 overnight. Appreciate ID and cardiology input. Continue Zyvox (start date 09/09) and Cefepime (start date 09/15). Unsuccessful VIC attempt. september repeat VIC on Monday. EXHIBITOR SALES eval tomorrow. (2) Acute and chronic respiratory failure ([id number]) Current Visit: Yes Status: Acute Assessment and plan: Secondary to COPDE/CHFE/Afib and suspected septic emboli in lungs. patient uses [address] Chest 09/13 revealed bilateral lower lobe septic emboli as well as multiple small nodular right lung lesions, 1 is a cavitary nodule. suspicious for septic emboli. slowly improving, still on 6L NC and BIPAP at night-time. Continue nebs, Zyvox, cefepime, oxygen supplementation, lasix and BIPAP as needed. Qualifiers: Respiratory failure complication: hypoxia Qualified Code(s): J96.21 - Acute and chronic respiratory failure with hypoxia (3) Acute kidney injury superimposed on CKD Current Visit: Yes Status: Acute Assessment and plan: s/p Right CVC and HD 09/07, 09/08, 09/09, 09/12, 09/14. Continue to hold lasix Nephrology following, appreciate input: urine output still not adequate. started on lasix this morning (4) GIB (gastrointestinal bleeding) Current Visit: Yes Status: Acute Assessment and plan: Secondary to colonic angiodysplasia in the setting of anticoagulation s/p hemicolectomy 09/06 POD 8, Appreciate surgery input. 09/08 Hgb at 6.5 post-surgery, she Received 2 units PRBCS 09/14 Hgb dropped to 7.4, transfused 2 units of PRBC during dialysis. fecal occult blood test. 09/15: Pt had CT abdomen and pelvis showing an elongated hyperdense collection within the right psoas muscle. consider hematoma, phlegmon or mass. 09/16 stable H/H after transfusion. close monitor. Qualifiers: GI bleed type/associated pathology: unspecified gastrointestinal hemorrhage type Qualified Code(s): K92.2 - Gastrointestinal hemorrhage, unspecified (5) Angiodysplasia of colon Current Visit: Yes Status: Acute Assessment and plan: plan as GI bleed (6) Atrial fibrillation with RVR Current Visit: Yes Status: Acute Assessment and plan: 09/11 she developed Refractory Aflutter requiring cardizem drip, cardiology was consulted 09/14: Hgb dropped to 7.4 and fecal occult blood is positive, stop heparin drip. 09/15: switched to oral metoprolol 09/16: patient back to be NPO, start IV metoprolol prn. (7) CHF (congestive heart failure) Current Visit: Yes Status: Chronic Assessment and plan: plan as above Qualifiers: Congestive heart failure type: diastolic Congestive heart failure chronicity: chronic Qualified Code(s): I50.32 - Chronic diastolic (congestive ) heart failure (8) CKD (chronic kidney disease) stage 4, GFR 15-29 ml/min Current Visit: Yes Status: Chronic Assessment and plan: As in ELLE on CKD (9) Diabetes mellitus Current Visit: Yes Status: Chronic Assessment and plan: DM with Hyperglycemia possibly secondary to Starting TPN 09/15: off TPN and insulin drip. 09/16: insulin sliding scale. NPO. hold levemir. Qualifiers: Diabetes mellitus type: type 2 Diabetes mellitus complication status: with kidney complications Diabetes mellitus complication detail: with chronic kidney disease Diabetes mellitus half-way insulin use: unspecified half-way insulin use status Chronic kidney disease stage: stage 4 (severe) Qualified Code(s): E11.22 - Type 2 diabetes mellitus with diabetic chronic kidney disease ; N18.4 - Chronic kidney disease, stage 4 (severe) (10) Oropharyngeal dysphagia Current Visit: Yes Status: Acute Assessment and plan: unable to perform VIC PLAN: NPO. speech consult. - Subjective Interval history: patient states that she is hungry and wants to eat. no nausea. no vomiting. no abdominal pain. - Constitutional Vitals: Temp Pulse Resp BP Pulse Ox 98.6 F 92 20 125/58 93 09/16/16 11:17 09/16/16 11:17 09/16/16 16:31 09/16/16 11:17 09/16/16 16:31 General appearance: Present: cooperative, A&O X 3, pleasant, no acute distress, obese, answers questions appropriately - Neck Neck exam general surgery: Present: supple, trachea midline. Absent: lymphadenopathy - Respiratory Respiratory exam: Present: decreased breath sounds, rhonchi - Cardiovascular Cardiovascular exam: Present: RRR - GI/Abdominal GI/Abdominal exam: Present: normal bowel sounds, soft. Absent: distended, tenderness - Extremities Exam Extremities exam: Present: pedal edema (1+ Le edema) - Neurological Exam Neurological exam: Present: alert, oriented X3. Absent: facial droop, speech deficit - Skin Skin exam: Absent: rash Internal Medicine: Result - Labs CBC & Chem 7: 09/16/16 03:10 09/16/16 03:10 Labs: Short CBC 09/16/16 Range/Units 03:10 WBC 4.9 (4.3-11.1) K/mcL Hgb 8.6 L (11.5-15.4) g/dL Hct 26.3 L (35.3-44.9) % Plt Count 66 L (140-400) K/mcL Neutrophils # 4.0 (1.6-8.9) K/mcL BMP 09/16/16 03:10 Sodium 129 L Potassium 4.8 H D Chloride 93 L Carbon Dioxide 24 BUN 48 H D Creatinine 2.77 H Glucose 99 Calcium 7.9 L - ABG Interpretation ABG results: ABG ABG pH 7.39 pH Units (7.32-7.45) 09/13/16 21:19 ABG pCO2 45 mmHg (35-45) 09/13/16 21:19 ABG pO2 79 mmHg (85-104) L 09/13/16 21:19 ABG O2 Saturation 95 % (95-98) 09/13/16 21:19 PT/INR, D-dimer PT 11.0 Seconds (9.4-12.1) 09/16/16 03:10 - Impressions Impressions Retroperitoneum Ultrasound 09/16/16 08:30 IMPRESSION: 1. Limited visualization of the kidneys. No gross abnormality. 2. Unable to visualize the psoas muscle. D/ / Romario Mcdonald MD / Romario Mcdonald MD Interpreting Provider: Romario Mcdonald MD - VTE Documentation of Mechanical Device: Intermittent pneumatic compression device Consult Discharge Plan - Plan Referrals: Edith Peña CNP [Advanced Practice Nurse] - 09/26/16 10:15 am Kj Yost MD [Partnered Physician] - Therese Garcia CNP [Primary Care Provider] - 09/15/16 9:00 am () Prudence Escobedo MD [Partnered Physician] - 10/11/16 3:50 pm ()
[2016-09-16] MEDS ORDERED: Insulin DETEMIR 100 UNIT/ML X5UNITS SQ SCH (21:00)
[2016-09-16] MEDS: Nystatin POWDER 30 GM BOTTLE TP SCH (21:50)
[2016-09-17] MEDS: Ipratropium/Albuterol Neb 3 ML IH SCH ×7 (00:44→23:25)
[2016-09-17] MEDS: *HR* LORazepam 2 MG/ML VIAL IVP PRN (01:36)
[2016-09-17] MEDS: *HR* Dextrose 50 % in Water (Syg) 50 ML SYRINGE IVP PRN (04:00)
[2016-09-17 04:15] LABS: Basophils % 0.3 %
[2016-09-17 04:17] LABS: Eosinophils # 0.1 K/mcL (0.0-0.6); Eosinophils % 1.5 %; Hematocrit 24.7 % (35.3-44.9); Immature Granulocytes % 1.5 % (0-4); Immature Platelets 7.2 % (1.1-6.1); Lymphocytes # 0.3 K/mcL (0.6-4.6); Lymphocytes % 8.4 %; Mean Corpuscular HGB Conc 32.4 g/dL (31.6-35.5); Mean Corpuscular Hemoglobin 28.4 pg (28.0-33.3); Mean Corpuscular Volume 87.6 fL (83.0-100.0); Mean Platelet Volume 11.2 fL (9.4-12.4); Monocytes # 0.2 K/mcL (0.0-1.3); Monocytes % 4.3 %; Red Blood Count 2.82 M/mcL (3.82-4.97); Red Cell Distribution Width 15.6 % (11.5-14.5)
[2016-09-17 04:30] LABS: Calcium 8.1 mg/dL (8.6-10.8); Phosphorous 5.9 mg/dL (2.3-4.7); Potassium 4.7 mEq/L (3.5-4.5)
[2016-09-17 04:52] LABS: Neutrophils # 3.4 K/mcL (1.6-8.9); Platelet Count 65 K/mcL (140-400)
[2016-09-17 04:53] LABS: Platelet Estimate Decreased (Normal)
[2016-09-17] MEDS: Insulin LISPRO 300 UNITS/3 ML VIAL SQ SCH ×5 (04:57→22:37)
[2016-09-17] MEDS: predniSONE 5 MG TABLET PO SCH (09:14)
[2016-09-17] MEDS: Pantoprazole 40 MG VIAL IVP SCH (09:17)
[2016-09-17] MEDS: Furosemide 20 MG/2 ML VIAL IVP SCH ×2 (09:17→21:03)
[2016-09-17] MEDS: Nystatin POWDER 30 GM BOTTLE TP SCH ×3 (09:18→22:38)
--- NOTE | 2016-09-17 11:10 | General Surgery Progress Note ---
Date of Encounter: 09/17/16 Time of Encounter: 11:07 - Assessment and Plan (1) Angiodysplasia of colon Current Visit: Yes Status: Acute POD #11 Extended right hemicolectomy. Lysis of adhesions times [address] Moy 09/13 positive blood cultures growing gram-positive cocci, HD catheter was removed 09/15. CT scan of the chest also shows possible septic emboli. Abdominal CT shows an elongated hyperdense collection within the right psoas muscle. US right flank unremarkable Patient has no abdominal tenderness, incision is clean and dry. Patient's daughter reports multiple BM, bowel sounds present. Lung sounds have improved, mild crackles posteriorly bilaterally Patient was tolerating full liquids, eating more, had an increased appetite. Has been nothing by mouth for VIC and swallow eval Plan: -Continue to encourage oral intake -Encourage incentive spirometry when up. -passed swallow study for mechanical soft diet with nectar thickened liquids, encourage po intake, do not expect her po intake to be adequate and will likely need TPN in future -Maintain Watkins catheter for strict I and O's -Daily dressing change -PPI therapy daily (2) Acute and chronic respiratory failure ([id number]) Current Visit: Yes Status: Acute IS every 1 hour while awake Aggressive pulmonary toilet Continue aerosol treatments as ordered Wean oxygen as tolerated Management per medicine service Qualifiers: Respiratory failure complication: hypoxia Qualified Code(s): J96.21 - Acute and chronic respiratory failure with hypoxia (3) Acute kidney injury superimposed on CKD Current Visit: Yes Status: Acute SCr 3.53>2.77, GFR 13 Plan: IV fluids Avoid nephrotoxic medications Continue Watkins catheter for strict I's and O's Nephrology following- hemodialysis (4) Insulin dependent type 2 diabetes mellitus Current Visit: Yes Status: Chronic Continue to manage per medicine team (5) DVT prophylaxis Current Visit: No Status: Acute Continue EPCDs to bilateral lower extremities for DVT prophylaxis Continue heparin 5,000 units SQ twice daily for DVT prophylaxis Subjective Patient reports: no new complaints, still having pain, pain is less, tolerating liquids well, flatus, bowel movement Narrative: Patient seen and examined. Daughter reports that patient was supposed to have a VIC yesterday, however she was unable to swallow so it was not completed. She has been NPO for a swallow study today. Prior to that she had been tolerating liquids well and has been asking for food, stating she is hungry. She is still passing gas. She is still having problems. Her incision is clean and dry. Objective Vital Signs - Last 8 Hours Temp Pulse Resp BP Pulse Ox 09/17/16 08:45 89 22 119/46 89 09/17/16 08:13 86 09/17/16 07:53 21 97 09/17/16 07:09 98.0 F 86 18 118/53 96 09/17/16 04:38 99.0 F 84 18 111/58 96 09/17/16 04:09 20 94 Intake and Output 09/16/16 09/17/16 09/17/16 23:59 07:59 15:59 Intake Total 300 / 300 300 / 300 Output Total 750 / 750 Balance -450 / -450 300 / 300 Intake: IV Fluids 300 / 300 300 / 300 Zyvox Premix 600mg/300mL 300 / 300 300 / 300 600 mg In 300 ml @ 150 mls/hr IVPB Q12HR KEILA Rx# :[id number] Oral 0 / 0 Output: Catheter 750 / 750 Other: Weight 96.3 kg Blood Glucose* 246 156 Patient Weight 09/17/16 23:59 Weight 96.3 kg - General physical appearance no distress, chronically ill, obese - Eyes PERRL, normal ocular movement - ENT dry mucosa, atraumatic, normocephalic - Neck Neck exam: trachea midline - Respiratory normal expansion crackles: bilateral - Cardiovascular Cardiovascular exam: Present: irregular rhythm, no murmurs/rubs/gallops - Abdomen Abdomen: Present: bowel sounds present, soft, non tender, tender (appropriate post op tenderness) - Incision Incision: Present: clean and dry, intact - Integumentary no rash, other (ecchymosis right lower flank) - Psychiatric oriented to time, oriented to person, oriented to place - Labs 09/18/16 04:38 09/18/16 04:38 Diabetes panel 09/17/16 Range/Units 04:00 Sodium 128 L (136-145) mEq/L Potassium 4.7 H (3.5-4.5) mEq/L Chloride 91 L (98-109) mEq/L Carbon Dioxide 27 (19-29) mEq/L BUN 61 H D (7-20) mg/dL Creatinine 3.53 H (0.57-1.11) mg/dL Glucose 63 L (70-99) mg/dL Calcium 8.1 L (8.6-10.8) mg/dL Calcium panel 09/17/16 Range/Units 04:00 Calcium 8.1 L (8.6-10.8) mg/dL Phosphorus 5.9 H (2.3-4.7) mg/dL Pituitary panel 09/17/16 Range/Units 04:00 Sodium 128 L (136-145) mEq/L Potassium 4.7 H (3.5-4.5) mEq/L Chloride 91 L (98-109) mEq/L Carbon Dioxide 27 (19-29) mEq/L BUN 61 H D (7-20) mg/dL Creatinine 3.53 H (0.57-1.11) mg/dL Glucose 63 L (70-99) mg/dL Calcium 8.1 L (8.6-10.8) mg/dL Adrenal panel 09/17/16 Range/Units 04:00 Sodium 128 L (136-145) mEq/L Potassium 4.7 H (3.5-4.5) mEq/L Chloride 91 L (98-109) mEq/L Carbon Dioxide 27 (19-29) mEq/L BUN 61 H D (7-20) mg/dL Creatinine 3.53 H (0.57-1.11) mg/dL Glucose 63 L (70-99) mg/dL Calcium 8.1 L (8.6-10.8) mg/dL - VTE Documentation of Mechanical Device: Intermittent pneumatic compression device Consult Discharge Plan - Plan Referrals: Edith Peña CNP [Advanced Practice Nurse] - 09/26/16 10:15 am Kj Yost MD [Partnered Physician] - Therese Garcia CNP [Primary Care Provider] - 09/15/16 9:00 am () Prudence Escobedo MD [Partnered Physician] - 10/11/16 3:50 pm ()
--- NOTE | 2016-09-17 16:34 | Nephrology Progress Note ---
Date of Encounter: 09/17/16 Time of Encounter: 14:45 - Assessment and Plan (1) CKD (chronic kidney disease) stage 4, GFR 15-29 ml/min Current Visit: Yes Status: Chronic She is not overtly needing HD today, but will with the worsening hypervolemic hyponatremia/edema and crackles on exam, I have increased the lasix today. Though the diuretics may impact her renal function, I will have to continue diuretics while not receiving intermittant HD (since the HD catheter was removed ). She may need HD in the next 24-48hr. Continue to follow a renal protective strategy. No need for PLASTER MACHINE OPERATOR at this time. Dose Rx by GFR. Strict I/Os. Will follow with you. Discussed with the Hospitalist. Thank you. (2) Acute exacerbation of chronic obstructive airways disease Current Visit: Yes Status: Acute As per primary (3) Hypertension Current Visit: Yes Status: Chronic Stable Qualifiers: Hypertension type: essential hypertension Qualified Code(s): I10 - Essential (primary) hypertension (4) Hyponatremia Current Visit: Yes Status: Resolved See above Subjective Principal diagnosis: ELLE on CKD, COPD, PAF Interval history: Pt was s/e earlier today. She did not affirm N/V/D or uremic complaints. She described her level of shortness of breath as "the same" since yesterday. Both her daughters were present. Objective - Vital Signs Vital signs: Vital Signs Temp Pulse Resp BP Pulse Ox 09/17/16 15:36 18 119/50 93 09/17/16 13:44 98.7 F 99 24 119/50 93 09/17/16 12:04 97.9 F 102 26 135/62 89 09/17/16 11:27 94 09/17/16 11:08 18 119/50 93 09/17/16 08:45 89 22 119/46 89 09/17/16 08:13 86 09/17/16 07:53 21 97 09/17/16 07:09 98.0 F 86 18 118/53 96 09/17/16 04:38 99.0 F 84 18 111/58 96 09/17/16 04:09 20 94 09/17/16 02:17 18 93 09/17/16 00:44 16 95 09/16/16 23:30 98.3 F 89 19 111/87 94 09/16/16 20:31 99.3 F 105 18 152/75 93 09/16/16 19:56 22 91 09/16/16 16:42 98.0 F 82 18 125/58 96 Intake and Output 09/17/16 09/17/16 09/17/16 07:59 15:59 23:59 Intake Total 300 / 300 420 / 420 Output Total 750 / 750 200 / 200 Balance -450 / -450 220 / 220 Intake: IV Fluids 300 / 300 300 / 300 Zyvox Premix 600mg/300mL 300 / 300 300 / 300 600 mg In 300 ml @ 150 mls/hr IVPB Q12HR KEILA Rx# :[id number] Oral 0 / 0 120 / 120 Output: Catheter 750 / 750 200 / 200 Other: Meal Lunch Percent of Meal Consumed 5% Stool Size Small Stool Consistency loose Stool Color Brown # Bowel Movements 1 Weight 96.3 kg Blood Glucose* 156 237 232 Patient Weight 09/17/16 23:59 Weight 96.3 kg - General Appearance General appearance: Present: well-developed, well-nourished, obese, chronically ill, frail EENT: Present: ATNC, PERRL, mucous membranes moist Neck: Present: supple Respiratory: Present: wheezing, course breath sounds Cardiology: Present: edema (primarily in the hands (R > L) but no significant pedal edema b/l ), regular rate, normal S1, normal S2 Gastrointestinal: Present: normoactive bowel sounds, no tenderness, distended ( mildly ) Integumentary: Present: warm and dry Neurologic: Present: no focal deficit, no asterixis, alert and oriented x3 (but falls asleep easily) Musculoskeletal: Present: no deformities, no erythema, no cyanosis Psychiatric: Present: cooperative - Lab 09/17/16 04:00 09/17/16 04:00 Most recent lab results ABG pH 7.39 pH Units (7.32-7.45) 09/13/16 21:19 ABG pCO2 45 mmHg (35-45) 09/13/16 21:19 ABG pO2 79 mmHg (85-104) L 09/13/16 21:19 ABG HCO3 27.2 mEQ/L (21-27) H 09/13/16 21:19 ABG O2 Saturation 95 % (95-98) 09/13/16 21:19 Calcium 8.1 mg/dL (8.6-10.8) L 09/17/16 04:00 Phosphorus 5.9 mg/dL (2.3-4.7) H 09/17/16 04:00 Magnesium 2.1 mg/dL (1.6-2.6) 09/16/16 03:10 Urine Creatinine 40 mg/dL 08/25/16 13:19 Urine Sodium 30.0 mEq/L 08/25/16 13:19 Urine Total Protein 22 mg/dL (1-14) H 08/24/16 14:18 - VTE Documentation of Mechanical Device: Intermittent pneumatic compression device Consult Discharge Plan - Plan Referrals: Edith Peña CNP [Advanced Practice Nurse] - 09/26/16 10:15 am Kj Yost MD [Partnered Physician] - Therese Garcia CNP [Primary Care Provider] - 09/15/16 9:00 am () Prudence Escobedo MD [Partnered Physician] - 10/11/16 3:50 pm ()
[2016-09-17] MEDS: Cefepime HCl 1,000 MG in D5% in Water (Mini-Bag+) 100 ML IVPB SCH (18:38)
[2016-09-17] MEDS: Ondansetron 4 MG/2 ML VIAL IVP PRN (21:03)
[2016-09-18] MEDS: *HR* LORazepam 2 MG/ML VIAL IVP PRN (00:29)
[2016-09-18] MEDS: Insulin LISPRO 300 UNITS/3 ML VIAL SQ SCH ×7 (00:37→23:31)
[2016-09-18] MEDS: Ipratropium/Albuterol Neb 3 ML IH SCH ×5 (03:51→20:45)
[2016-09-18 04:57] LABS: Mean Platelet Volume 11.2 fL (9.4-12.4); Prothrombin Time 11.1 Seconds (9.4-12.1)
[2016-09-18 04:59] LABS: Eosinophils # 0.1 K/mcL (0.0-0.6); Hematocrit 25.4 % (35.3-44.9); Hemoglobin 8.2 g/dL (11.5-15.4); Immature Platelets 7.4 % (1.1-6.1); Mean Corpuscular HGB Conc 32.3 g/dL (31.6-35.5); Mean Corpuscular Hemoglobin 28.4 pg (28.0-33.3); Mean Corpuscular Volume 87.9 fL (83.0-100.0); Red Blood Count 2.89 M/mcL (3.82-4.97); Red Cell Distribution Width 15.4 % (11.5-14.5)
[2016-09-18 05:00] LABS: Platelet Count 67 K/mcL (140-400)
[2016-09-18 05:06] LABS: Calcium 8.2 mg/dL (8.6-10.8); Phosphorous 5.3 mg/dL (2.3-4.7); Potassium 4.4 mEq/L (3.5-4.5)
[2016-09-18 05:52] LABS: Lymphocytes # 0.2 K/mcL (0.6-4.6); Monocytes # 0.1 K/mcL (0.0-1.3); Neutrophils # 3.5 K/mcL (1.6-8.9)
[2016-09-18 05:53] LABS: Platelet Estimate Decreased (Normal); Toxic Granulation Present (Not Present)
[2016-09-18] MEDS: predniSONE 5 MG TABLET PO SCH (07:59)
[2016-09-18] MEDS: *HR* OxyCODONE Immed Rel 5 MG TABLET PO PRN (07:59)
[2016-09-18] MEDS: Furosemide 20 MG/2 ML VIAL IVP SCH (08:01)
[2016-09-18] MEDS: Pantoprazole 40 MG VIAL IVP SCH (08:02)
--- NOTE | 2016-09-18 08:51 | Nephrology Progress Note ---
Date of Encounter: 09/18/16 Time of Encounter: 10:00 - Assessment and Plan (1) CKD (chronic kidney disease) stage 4, GFR 15-29 ml/min Current Visit: Yes Status: Chronic With lasix, her volume status appears to be stable today from yesterday. Will continue the lasix and plan for placement of a new temporary HD catheter tomorrow as her renal function continues to decline. Not overtly uremic or hyperkalemic today, so will hold off on providing urgent dialysis today (Monday) . Hyponatremia slightly improved with lasix. Hgb is stable. Having low grade fevers, and the pt has been on a Line Holiday (i.e., the dialysis catheter was removed and we're waiting as long as possible before placing a new one). She is not overtly needing HD today. Continue to follow a renal protective strategy. Dose Rx by GFR. Strict I/Os. Will follow with you. Thank you. (2) Acute exacerbation of chronic obstructive airways disease Current Visit: Yes Status: Acute As per primary (3) Hypertension Current Visit: Yes Status: Chronic Stable Qualifiers: Hypertension type: essential hypertension Qualified Code(s): I10 - Essential (primary) hypertension (4) Hyponatremia Current Visit: Yes Status: Resolved See above Subjective Principal diagnosis: ELLE on CKD, COPD, PAF Interval history: Pt was s/e earlier today. She did not affirm N/V/D or uremic complaints. She described her level of shortness of breath remains about "the same". Her daugher the RN was present at bedside. We discussed starting dialysis tomorrow and they both agreed. Objective - Vital Signs Vital signs: Vital Signs Temp Pulse Resp BP Pulse Ox 09/18/16 08:22 100.4 F H 104 125/54 93 09/18/16 08:09 20 94 09/18/16 06:20 100.3 F H 21 140/63 96 09/18/16 04:32 100.3 F H 96 21 140/63 96 09/18/16 03:51 22 96 09/18/16 00:45 104 09/18/16 00:05 100.1 F H 98 24 106/81 93 09/17/16 23:45 24 116/59 94 09/17/16 23:26 20 93 09/17/16 20:46 100.0 F H 104 22 116/59 93 09/17/16 20:45 102 93 09/17/16 20:43 18 92 09/17/16 16:52 104 09/17/16 15:36 18 119/50 93 09/17/16 13:44 98.7 F 99 24 119/50 93 09/17/16 12:04 97.9 F 102 26 135/62 89 09/17/16 11:27 94 09/17/16 11:08 18 119/50 93 Intake and Output 09/17/16 09/18/16 09/18/16 23:59 07:59 15:59 Intake Total 400 / 400 Output Total 150 / 150 250 / 250 Balance 250 / 250 -250 / -250 Intake: IV Fluids 400 / 400 Maxipime 1,000 MG In 100 / 100 Dextrose 5% (Minibag+) 100 ML 100 ML @ 200 mls/ hr IVPB 1800 KEILA Rx#: [id number] Zyvox Premix 600mg/300mL 300 / 300 600 mg In 300 ml @ 150 mls/hr IVPB Q12HR KEILA Rx# :[id number] Output: Urine 150 / 150 Catheter 250 / 250 Other: Stool Size Moderate Stool Consistency loose liquid Stool Color Brown Weight 99.1 kg Blood Glucose* 313 125 230 Patient Weight 09/18/16 23:59 Weight 99.1 kg - General Appearance General appearance: Present: obese, chronically ill, fatigue, frail EENT: Present: mucous membranes moist Neck: Present: supple Respiratory: Present: wheezing, course breath sounds Cardiology: Present: edema, regular rate, regular rhythm, normal S1, normal S2 Gastrointestinal: Present: normoactive bowel sounds, no tenderness Integumentary: Present: warm and dry, ecchymotic Neurologic: Present: no focal deficit, no asterixis, alert and oriented x3 Musculoskeletal: Present: no cyanosis, no clubbing Psychiatric: Present: cooperative - Lab 09/18/16 04:38 09/18/16 04:38 Most recent lab results ABG pH 7.39 pH Units (7.32-7.45) 09/13/16 21:19 ABG pCO2 45 mmHg (35-45) 09/13/16 21:19 ABG pO2 79 mmHg (85-104) L 09/13/16 21:19 ABG HCO3 27.2 mEQ/L (21-27) H 09/13/16 21:19 ABG O2 Saturation 95 % (95-98) 09/13/16 21:19 Calcium 8.2 mg/dL (8.6-10.8) L 09/18/16 04:38 Phosphorus 5.3 mg/dL (2.3-4.7) H 09/18/16 04:38 Magnesium 2.1 mg/dL (1.6-2.6) 09/16/16 03:10 Urine Creatinine 40 mg/dL 08/25/16 13:19 Urine Sodium 30.0 mEq/L 08/25/16 13:19 Urine Total Protein 22 mg/dL (1-14) H 08/24/16 14:18 - VTE Documentation of Mechanical Device: Intermittent pneumatic compression device Consult Discharge Plan - Plan Referrals: Edith Peña CNP [Advanced Practice Nurse] - 09/26/16 10:15 am Kj Yost MD [Partnered Physician] - Therese Garcia CNP [Primary Care Provider] - 09/15/16 9:00 am () Prudence Escobedo MD [Partnered Physician] - 10/11/16 3:50 pm ()
--- NOTE | 2016-09-18 09:45 | General Surgery Progress Note ---
Date of Encounter: 09/18/16 Time of Encounter: 11:00 - Assessment and Plan (1) Angiodysplasia of colon Current Visit: Yes Status: Acute POD #12 Extended right hemicolectomy with lysis of adhesions times [address] Moy. 09/13 positive blood cultures growing gram-positive cocci, HD catheter was removed 09/15. Currently on "line holiday" CT scan of the chest suggests possible septic emboli. Abdominal CT shows an elongated hyperdense collection within the right psoas muscle consistent with hematoma. US right flank unremarkable. Patient has appriopriate abdominal tenderness, incision is clean and dry. Patient's daughter reports multiple BM and flatus, bowel sounds present on exam. Lung sounds demonstrate mild crackles bilaterally throughout and productive cought Patient was tolerating full liquids, eating more, has an increased appetite. Plan: -Continue to encourage oral intake, will need TPN, start tomorrow -Encourage incentive spirometry when up. aggressive pulmonary toilet, scheduled aerosols and start mucomyst family requested pulmonary see patient again, will call -continue diet - mechanical soft, nectar thickened liquids, barium swallow pending. Begin Calorie counts today. -Maintain Watkins catheter for strict I and O's -Daily dressing change -PPI therapy daily (2) Acute and chronic respiratory failure ([id number]) Current Visit: Yes Status: Acute IS every 1 hour while awake Aggressive pulmonary toilet Continue aerosol treatments as ordered Wean oxygen as tolerated Management per medicine service start mucomyst Qualifiers: Respiratory failure complication: hypoxia Qualified Code(s): J96.21 - Acute and chronic respiratory failure with hypoxia (3) Acute kidney injury superimposed on CKD Current Visit: Yes Status: Acute Discussion with Dr. Corona regarding nutrition supplementation and patient's volume status. Pt is on a line holiday due to infection, however, if TPN required due to poor oral intake may start at low rate and Lasix may be further adjusted. He suggested to contact mold construction supervisor on board. After discussion with Dairy Supplies Sales Representative Kathy Wagner, consensus was to monitor patient on Nepro today and begin Calorie count for full evaluation before TPN. May consider restarting TPN if counts are low or patient is unable to tolerate oral intake. SCr 3.97>3.53>2.77, GFR 11<13 Plan: IV fluids Avoid nephrotoxic medications Continue [place] catheter for strict I's and O's Nephrology following- hemodialysis as needed. Discussion as above. Nutrition: Followed by mold construction supervisor- Nepro with meals, Mechanically altered diet, [place] thickened diet. Calorie counts started today as per our discussion above. (4) Insulin dependent type 2 diabetes mellitus Current Visit: Yes Status: Chronic Continue to manage per medicine team (5) DVT prophylaxis Current Visit: Yes Status: Acute Continue EPCDs to bilateral lower extremities for DVT prophylaxis Continue heparin 5,000 units SQ twice daily for DVT prophylaxis Subjective Patient reports: no new complaints, still having pain, flatus, bowel movement Narrative: Patient was seen and examined. Her incision is clean and dry, bowel sounds present, no tenderness to abdominal palpation. Her daughter was present at bedside and reported patient still having flatness and bowel movements one very large bowel movement last night. Daughter reports that swelling has gotten worse since Monday and she is concerned about the upper extremity swelling. She does have diffuse edema of upper and lower extremities bilaterally. Patient was started on Nepro yesterday 09/17/16 along with mechanically altered ground meat, and thickened nectar diet. Will monitor patient today to see how she tolerates oral diet. low grade temps denies increase or change in abdominal pain/discomfort no nausea Objective Vital Signs - Last 8 Hours Temp Pulse Resp BP Pulse Ox 09/18/16 08:22 100.4 F H 104 125/54 93 09/18/16 08:09 20 94 09/18/16 06:20 100.3 F H 21 140/63 96 09/18/16 04:32 100.3 F H 96 21 140/63 96 09/18/16 03:51 22 96 Intake and Output 09/17/16 09/18/16 09/18/16 23:59 07:59 15:59 Intake Total 400 / 400 Output Total 150 / 150 250 / 250 Balance 250 / 250 -250 / -250 Intake: IV Fluids 400 / 400 Maxipime 1,000 MG In 100 / 100 Dextrose 5% (Minibag+) 100 ML 100 ML @ 200 mls/ hr IVPB 1800 KEILA Rx#: [id number] Zyvox Premix 600mg/300mL 300 / 300 600 mg In 300 ml @ 150 mls/hr IVPB Q12HR KEILA Rx# :[id number] Output: Urine 150 / 150 Catheter 250 / 250 Other: Stool Size Moderate Stool Consistency loose liquid Stool Color Brown Weight 99.1 kg Blood Glucose* 313 125 230 Patient Weight 09/18/16 23:59 Weight 99.1 kg - General physical appearance no distress, chronically ill, obese, other (Diffuse edema) - Eyes normal ocular movement - ENT atraumatic, normocephalic - Neck Neck exam: trachea midline - Respiratory other (congested productive cough) - Cardiovascular Cardiovascular exam: Present: irregular rhythm - Abdomen Abdomen: Present: bowel sounds present, soft, non tender, tender (appropriate post op tenderness). Absent: guarding, rebound - Incision Incision: Present: clean and dry, intact - Integumentary no rash, other (ecchymosis Right flank) - Neurologic CN 2-12 grossly intact - Psychiatric oriented to time, oriented to person, oriented to place, speech is normal - Labs 09/18/16 04:38 09/18/16 04:38 Short CBC 09/18/16 Range/Units 04:38 WBC 3.9 L (4.3-11.1) K/mcL Hgb 8.2 L (11.5-15.4) g/dL Hct 25.4 L (35.3-44.9) % Plt Count 67 L (140-400) K/mcL Neutrophils # 3.5 (1.6-8.9) K/mcL BMP 09/18/16 Range/Units 04:38 Sodium 129 L (136-145) mEq/L Potassium 4.4 (3.5-4.5) mEq/L Chloride 90 L (98-109) mEq/L Carbon Dioxide 24 (19-29) mEq/L BUN 69 H (7-20) mg/dL Creatinine 3.97 H (0.57-1.11) mg/dL Glucose 123 H (70-99) mg/dL Calcium 8.2 L (8.6-10.8) mg/dL Vital Signs Temp Pulse Resp BP Pulse Ox 09/18/16 08:22 100.4 F H 104 125/54 93 09/18/16 08:09 20 94 09/18/16 06:20 100.3 F H 21 140/63 96 09/18/16 04:32 100.3 F H 96 21 140/63 96 09/18/16 03:51 22 96 09/18/16 00:45 104 09/18/16 00:05 100.1 F H 98 24 106/81 93 09/17/16 23:45 24 116/59 94 09/17/16 23:26 20 93 09/17/16 20:46 100.0 F H 104 22 116/59 93 09/17/16 20:45 102 93 09/17/16 20:43 18 92 09/17/16 16:52 104 09/17/16 15:36 18 119/50 93 09/17/16 13:44 98.7 F 99 24 119/50 93 09/17/16 12:04 97.9 F 102 26 135/62 89 Intake and Output 09/17/16 09/18/16 09/18/16 23:59 07:59 15:59 Intake Total 400 / 400 Output Total 150 / 150 250 / 250 Balance 250 / 250 -250 / -250 Intake: IV Fluids 400 / 400 Maxipime 1,000 MG In 100 / 100 Dextrose 5% (Minibag+) 100 ML 100 ML @ 200 mls/ hr IVPB 1800 KEILA Rx#: [id number] Zyvox Premix 600mg/300mL 300 / 300 600 mg In 300 ml @ 150 mls/hr IVPB Q12HR KEILA Rx# :[id number] Output: Urine 150 / 150 Catheter 250 / 250 Other: Stool Size Moderate Stool Consistency loose liquid Stool Color Brown Weight 99.1 kg Blood Glucose* 313 125 183 Patient Weight 09/18/16 23:59 Weight 99.1 kg - VTE Documentation of Mechanical Device: Intermittent pneumatic compression device Consult Discharge Plan - Plan Referrals: Edith Peña CNP [Advanced Practice Nurse] - 09/26/16 10:15 am Kj Yost MD [Partnered Physician] - Therese Garcia CNP [Primary Care Provider] - 09/15/16 9:00 am () Prudence Escobedo MD [Partnered Physician] - 10/11/16 3:50 pm ()
[2016-09-18] MEDS ORDERED: Furosemide 20 MG/2 ML VIAL IVP SCH (10:14)
[2016-09-18] MEDS: Nystatin POWDER 30 GM BOTTLE TP SCH ×3 (11:48→23:20)
[2016-09-18] MEDS: Acetylcysteine 10% 2 ML INHSOL IH SCH ×2 (11:49→20:46)
--- NOTE | 2016-09-18 16:01 | Internal Med Progress Note ---
Date of Encounter: 09/17/16 Time of Encounter: 14:00 - Assessment and plan (1) Bacteremia due to Enterococcus Current Visit: Yes Status: Acute Assessment and plan: 09/07 Patient has a Right dialysis CVC placed 09/08 Blood culture drawn due to leukocytosis and grew VRE 05/08 set 09/09 started on IV Zyvox. 09/11 Blood cultures, peripherally are negative 09/13 blood cultures x1 from Right Dialysis CVC growing GPC staph. peripheral blood cultures NGTD. 09/15 Dialysis catheter was removed, tip culture NGTD. CT chest findings suggestive of septic emboli. consult RESTAURANT SHIFT SUPERVISOR. started on cefepime and continue on Zyvox day 7. 09/16 Unsuccessful VIC attempt. 09/17 low grade fever of 100.6. continue cefepime and zyvox. follow up final results of blood cultures. (2) Acute and chronic respiratory failure ([id number]) Current Visit: Yes Status: Acute Assessment and plan: Secondary to COPDE/CHFE/Afib and suspected septic emboli in lungs. patient uses [address] Chest 09/13 revealed bilateral lower lobe septic emboli as well as multiple small nodular right lung lesions, 1 is a cavitary nodule. suspicious for septic emboli. slowly improving, still on 6L oxymask and BIPAP at night-time. Continue nebs, Zyvox, cefepime, oxygen supplementation, lasix and BIPAP as needed. Qualifiers: Respiratory failure complication: hypoxia Qualified Code(s): J96.21 - Acute and chronic respiratory failure with hypoxia (3) Acute kidney injury superimposed on CKD Current Visit: Yes Status: Acute Assessment and plan: s/p Right CVC and HD 09/07, 09/08, 09/09, 09/12, 09/14. Continue to hold lasix I discussed case with dr Corona of nephrology team. plan to increase lasix given better urine output. close monitoring. avoid nephrotoxic agents as possible. (4) GIB (gastrointestinal bleeding) Current Visit: Yes Status: Acute Assessment and plan: Secondary to colonic angiodysplasia in the setting of anticoagulation s/p hemicolectomy 09/06 POD 8, Appreciate surgery input. 5 Hgb at 6.5 post-surgery, she Received 2 units PRBCS 09/14 Hgb dropped to 7.4, transfused 2 units of PRBC during dialysis. fecal occult blood test. 09/15: Pt had CT abdomen and pelvis showing an elongated hyperdense collection within the right psoas muscle. consider hematoma, phlegmon or mass. 09/17 hgb is 8. close monitor. Qualifiers: GI bleed type/associated pathology: unspecified gastrointestinal hemorrhage type Qualified Code(s): K92.2 - Gastrointestinal hemorrhage, unspecified (5) Angiodysplasia of colon Current Visit: Yes Status: Acute Assessment and plan: plan as GI bleed (6) Atrial fibrillation with RVR Current Visit: Yes Status: Acute Assessment and plan: 09/11 she developed Refractory Aflutter requiring cardizem drip, cardiology was consulted 09/14: Hgb dropped to 7.4 and fecal occult blood is positive, stop heparin drip. 09/15: switched to oral metoprolol 09/17: oral metoprolol and IV metoprolol prn. (7) CHF (congestive heart failure) Current Visit: Yes Status: Chronic Assessment and plan: plan as above Qualifiers: Congestive heart failure type: diastolic Congestive heart failure chronicity: chronic Qualified Code(s): I50.32 - Chronic diastolic (congestive ) heart failure (8) CKD (chronic kidney disease) stage 4, GFR 15-29 ml/min Current Visit: Yes Status: Chronic Assessment and plan: As in ELLE on CKD (9) Diabetes mellitus Current Visit: Yes Status: Chronic Assessment and plan: DM with Hyperglycemia possibly secondary to Starting TPN 09/15: off TPN and insulin drip. 09/17: insulin sliding scale. 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 Barium swallow study on Monday. (11) Acute metabolic encephalopathy Current Visit: Yes Status: Acute Assessment and plan: Multifactorial due to infection, prolonged hospitalization brought, age, suspected early signs of dementia at home, recent surgery. Improved with Seroquel but due to somnolence during the day time I will decrease Seroquel dose to 12.5 mg at bedtime only. Treat underlying etiology. - Subjective Interval history: patient complains of mild abdominal pain expected from surgery. - Constitutional Vitals: Temp Pulse Resp BP Pulse Ox 100.4 F H 104 20 125/54 89 09/18/16 08:22 09/18/16 08:22 09/18/16 11:50 09/18/16 11:50 09/18/16 11:50 General appearance: Present: cooperative, A&O X 3, pleasant, no acute distress, obese, answers questions appropriately - Neck Neck exam general surgery: Present: supple, trachea midline. Absent: lymphadenopathy - Respiratory Respiratory exam: Present: rhonchi - Cardiovascular Cardiovascular exam: Present: tachycardia - GI/Abdominal GI/Abdominal exam: Present: hyperactive bowel sounds, soft. Absent: distended, tenderness Additional comments: surgical wound with no signs of infection. - Extremities Exam Extremities exam: Present: pedal edema - Neurological Exam Neurological exam: Present: alert, oriented X3, no focal deficits. Absent: facial droop, speech deficit Internal Medicine: Result - Labs CBC & Chem 7: 09/18/16 04:38 09/18/16 04:38 Labs: Short CBC 09/18/16 Range/Units 04:38 WBC 3.9 L (4.3-11.1) K/mcL Hgb 8.2 L (11.5-15.4) g/dL Hct 25.4 L (35.3-44.9) % Plt Count 67 L (140-400) K/mcL Neutrophils # 3.5 (1.6-8.9) K/mcL BMP 09/18/16 04:38 Sodium 129 L Potassium 4.4 Chloride 90 L Carbon Dioxide 24 BUN 69 H Creatinine 3.97 H Glucose 123 H Calcium 8.2 L - ABG Interpretation ABG results: ABG ABG pH 7.39 pH Units (7.32-7.45) 09/13/16 21:19 ABG pCO2 45 mmHg (35-45) 09/13/16 21:19 ABG pO2 79 mmHg (85-104) L 09/13/16 21:19 ABG O2 Saturation 95 % (95-98) 09/13/16 21:19 PT/INR, D-dimer PT 11.1 Seconds (9.4-12.1) 09/18/16 04:38 - VTE Documentation of Mechanical Device: Intermittent pneumatic compression device Consult Discharge Plan - Plan Referrals: Edith Peña CNP [Advanced Practice Nurse] - 09/26/16 10:15 am Kj Yost MD [Partnered Physician] - Therese Garcia CNP [Primary Care Provider] - 09/15/16 9:00 am () Prudence Escobedo MD [Partnered Physician] - 10/11/16 3:50 pm ()
--- NOTE | 2016-09-18 16:13 | Internal Med Progress Note ---
Date of Encounter: 09/18/16 Time of Encounter: 13:30 - Assessment and plan (1) Bacteremia due to Enterococcus Current Visit: Yes Status: Acute Assessment and plan: 09/07 Patient has a Right dialysis CVC placed 09/08 Blood culture drawn due to leukocytosis and grew VRE 05/08 set 09/09 started on IV Zyvox. 09/11 Blood cultures, peripherally are negative 09/13 blood cultures x1 from Right Dialysis CVC grew Staphylococcus hominis. peripheral blood cultures NGTD. 09/15 Dialysis catheter was removed, tip culture NGTD. CT chest findings suggestive of septic emboli. consult BILLING ANALYST. started on cefepime and continue on Zyvox day 7. 09/16 Unsuccessful VIC attempt. Peripheral blood cultures no growth to date. 09/18 low grade fever of 100.4. continue cefepime and zyvox. follow up final results of blood cultures. (2) Acute and chronic respiratory failure ([id number]) Current Visit: Yes Status: Acute Assessment and plan: Secondary to COPDE/CHFE/Afib and suspected septic emboli in lungs. patient uses [address] Chest 09/13 revealed bilateral lower lobe septic emboli as well as multiple small nodular right lung lesions, 1 is a cavitary nodule. suspicious for septic emboli. Good diuresis of 1.1 L in the past 24 hours. Patient required up to 8 L of oxygen via Oxymask this morning but now is back 6 L. Continue nebs, Zyvox, cefepime, oxygen supplementation, and BIPAP as needed. Check chest x-ray. Lasix increased to 60 mg twice a day. Qualifiers: Respiratory failure complication: hypoxia Qualified Code(s): J96.21 - Acute and chronic respiratory failure with hypoxia (3) Acute kidney injury superimposed on CKD Current Visit: Yes Status: Acute Assessment and plan: s/p Right CVC and HD 09/07, 09/08, 09/09, 09/12, 09/14. Continue to hold lasix Continue Lasix. close monitoring. avoid nephrotoxic agents as possible. (4) GIB (gastrointestinal bleeding) Current Visit: Yes Status: Acute Assessment and plan: Secondary to colonic angiodysplasia in the setting of anticoagulation s/p hemicolectomy 09/06 POD 8, Appreciate surgery input. 09/08 Hgb at 6.5 post-surgery, she Received 2 units PRBCS 09/14 Hgb dropped to 7.4, transfused 2 units of PRBC during dialysis. fecal occult blood test. 09/15: Pt had CT abdomen and pelvis showing an elongated hyperdense collection within the right psoas muscle. consider hematoma, phlegmon or mass. 09/17 hgb is 8.2. close monitor. No external bleeding. Qualifiers: GI bleed type/associated pathology: unspecified gastrointestinal hemorrhage type Qualified Code(s): K92.2 - Gastrointestinal hemorrhage, unspecified (5) Angiodysplasia of colon Current Visit: Yes Status: Acute Assessment and plan: plan as GI bleed (6) Atrial fibrillation with RVR Current Visit: Yes Status: Acute Assessment and plan: 09/11 she developed Refractory Aflutter requiring cardizem drip, cardiology was consulted 09/14: Hgb dropped to 7.4 and fecal occult blood is positive, stop heparin drip. 09/15: switched to oral metoprolol 09/17: oral metoprolol and IV metoprolol prn. (7) CHF (congestive heart failure) Current Visit: Yes Status: Chronic Assessment and plan: plan as above Qualifiers: Congestive heart failure type: diastolic Congestive heart failure chronicity: chronic Qualified Code(s): I50.32 - Chronic diastolic (congestive ) heart failure (8) CKD (chronic kidney disease) stage 4, GFR 15-29 ml/min Current Visit: Yes Status: Chronic Assessment and plan: As in ELLE on CKD (9) Diabetes mellitus Current Visit: Yes Status: Chronic Assessment and plan: DM with Hyperglycemia possibly secondary to Starting TPN 09/15: off TPN and insulin drip. 09/17: Glucose level of 63 at 4 AM. 09/18: Fasting glucose 230. insulin sliding scale. diabetic diet. Patient is eating more. I will start low-dose Levemir. Qualifiers: Diabetes mellitus type: type 2 Diabetes mellitus complication status: with kidney complications Diabetes mellitus complication detail: with chronic kidney disease Diabetes mellitus jail insulin use: unspecified keno terminal operator insulin use status Chronic kidney disease stage: stage 4 (severe) Qualified Code(s): E11.22 - Type 2 diabetes mellitus with diabetic chronic kidney disease ; N18.4 - Chronic kidney disease, stage 4 (severe) (10) Oropharyngeal dysphagia Current Visit: Yes Status: Acute Assessment and plan: unable to perform VIC Continue mechanically altered diet. Barium swallow study toMorrow (11) Acute metabolic encephalopathy Current Visit: Yes Status: Acute Assessment and plan: Multifactorial due to infection, prolonged hospitalization brought, age, suspected early signs of dementia at home, recent surgery. Continue Seroquel 12.5 mg at bedtime only. Treat underlying etiology. - Subjective Interval history: patient complains of diarrhea. No bleeding. No nausea or vomiting. - Constitutional Vitals: Temp Pulse Resp BP Pulse Ox 100.4 F H 104 20 125/54 89 09/18/16 08:22 09/18/16 08:22 09/18/16 11:50 09/18/16 11:50 09/18/16 11:50 General appearance: Present: cooperative, A&O X 3, pleasant, no acute distress, obese, answers questions appropriately - Respiratory Respiratory exam: Present: rhonchi - Cardiovascular Cardiovascular exam: Present: tachycardia - GI/Abdominal GI/Abdominal exam: Present: hyperactive bowel sounds, soft, tenderness (Mild expected tenderness it after surgery.). Absent: distended Additional comments: Surgical wounds have no signs of infection. - Extremities Exam Extremities exam: Present: pedal edema - Neurological Exam Neurological exam: Present: alert, oriented X3, no focal deficits, strengths equal and symetr throughout. Absent: facial droop, speech deficit Internal Medicine: Result - Labs CBC & Chem 7: 09/18/16 04:38 09/18/16 04:38 Labs: Short CBC 09/18/16 Range/Units 04:38 WBC 3.9 L (4.3-11.1) K/mcL Hgb 8.2 L (11.5-15.4) g/dL Hct 25.4 L (35.3-44.9) % Plt Count 67 L (140-400) K/mcL Neutrophils # 3.5 (1.6-8.9) K/mcL BMP 09/18/16 04:38 Sodium 129 L Potassium 4.4 Chloride 90 L Carbon Dioxide 24 BUN 69 H Creatinine 3.97 H Glucose 123 H Calcium 8.2 L - ABG Interpretation ABG results: ABG ABG pH 7.39 pH Units (7.32-7.45) 09/13/16 21:19 ABG pCO2 45 mmHg (35-45) 09/13/16 21:19 ABG pO2 79 mmHg (85-104) L 09/13/16 21:19 ABG O2 Saturation 95 % (95-98) 09/13/16 21:19 PT/INR, D-dimer PT 11.1 Seconds (9.4-12.1) 09/18/16 04:38 - VTE Documentation of Mechanical Device: Intermittent pneumatic compression device Consult Discharge Plan - Plan Referrals: Edith Peña CNP [Advanced Practice Nurse] - 09/26/16 10:15 am Kj Yost MD [Partnered Physician] - Therese Garcia CNP [Primary Care Provider] - 09/15/16 9:00 am () Prudence Escobedo MD [Partnered Physician] - 10/11/16 3:50 pm ()
[2016-09-18] MEDS ORDERED: Insulin DETEMIR 100 UNIT/ML X5UNITS SQ SCH (16:30)
[2016-09-18] MEDS: Cefepime HCl 1,000 MG in D5% in Water (Mini-Bag+) 100 ML IVPB SCH (17:21)
[2016-09-18 18:28] LABS: Bilirubin,Urine Negative (Negative); Blood,Urine Small (Negative); Clarity,Urine Clear (Clear); Color,Urine Yellow (Yellow); Glucose,Urine (UA) 250 mg/dL (Normal); Ketones,Urine Negative (Negative); Leukocyte Esterase,Urine Trace (Negative); Nitrite,Urine Negative (Negative); Protein,Urine 30 mg/dL (Neg-Trace); Specific Gravity,Urine 1.012 (1.010-1.025); Urobilinogen,Urine Normal (Normal)
[2016-09-18 18:30] LABS: Bacteria,Urine None Seen per hpf (None-Few); Hyaline Casts,Urine None Seen per lpf (None-Few); Squamous Epithelial Cell,Urine Many per lpf (None-Few)
[2016-09-18 18:38] LABS: Yeast,Urine Many per hpf (None Seen)
[2016-09-19] MEDS: *HR* LORazepam 2 MG/ML VIAL IVP PRN (00:21)
[2016-09-19] MEDS: Ipratropium/Albuterol Neb 3 ML IH SCH ×6 (00:49→20:34)
[2016-09-19] MEDS: Acetylcysteine 10% 2 ML INHSOL IH SCH ×3 (04:17→20:35)
[2016-09-19 05:14] LABS: Basophils % 0.2 %; Red Cell Distribution Width 15.2 % (11.5-14.5)
[2016-09-19] MEDS: Insulin LISPRO 300 UNITS/3 ML VIAL SQ SCH ×5 (05:15→20:47)
[2016-09-19 05:16] LABS: Eosinophils # 0.1 K/mcL (0.0-0.6); Eosinophils % 1.2 %; Hematocrit 25.6 % (35.3-44.9); Hemoglobin 8.4 g/dL (11.5-15.4); Immature Granulocytes % 1.2 % (0-4); Immature Platelets 6.9 % (1.1-6.1); Lymphocytes # 0.4 K/mcL (0.6-4.6); Lymphocytes % 8.9 %; Mean Corpuscular HGB Conc 32.8 g/dL (31.6-35.5); Mean Corpuscular Hemoglobin 28.4 pg (28.0-33.3); Mean Corpuscular Volume 86.5 fL (83.0-100.0); Mean Platelet Volume 10.2 fL (9.4-12.4); Monocytes # 0.2 K/mcL (0.0-1.3); Monocytes % 4.2 %; Neutrophils # 3.6 K/mcL (1.6-8.9); Red Blood Count 2.96 M/mcL (3.82-4.97); Segmented Neutrophils % 84.3 %
[2016-09-19 05:22] LABS: Calcium 8.4 mg/dL (8.6-10.8); Magnesium 1.8 mg/dL (1.6-2.6); Phosphorous 5.5 mg/dL (2.3-4.7); Potassium 3.8 mEq/L (3.5-4.5)
[2016-09-19 05:31] LABS: Platelet Count 67 K/mcL (140-400)
[2016-09-19 05:42] LABS: Platelet Estimate Decreased (Normal)
[2016-09-19 05:43] LABS: Large Platelets Present (Not Present)
[2016-09-19] MEDS ORDERED: 0.9 % Sodium Chloride 250 ML IVC PRN (07:38)
[2016-09-19] MEDS: predniSONE 5 MG TABLET PO SCH (07:49)
[2016-09-19] MEDS: Furosemide 40 MG/4 ML VIAL IVP SCH ×2 (07:49→20:35)
[2016-09-19] MEDS: Pantoprazole 40 MG VIAL IVP SCH (07:50)
[2016-09-19] MEDS: Nystatin POWDER 30 GM BOTTLE TP SCH ×3 (07:50→20:49)
--- NOTE | 2016-09-19 08:25 | General Surgery Progress Note ---
Date of Encounter: 09/19/16 Time of Encounter: 08:21 - Assessment and Plan (1) Angiodysplasia of colon Current Visit: Yes Status: Acute POD #13 Extended right hemicolectomy. Lysis of adhesions times [address] Moy 09/13 positive blood cultures growing gram-positive cocci, HD catheter was removed 09/15. CT scan of the chest also shows possible septic emboli. Abdominal CT shows an elongated hyperdense collection within the right psoas muscle. US right flank unremarkable Patient has no abdominal tenderness, incision is clean and dry. Patient is having BMs, bowel sounds present. Lung sounds worsened with diffuse wheezing and rhonchi bilaterally Patient has been advanced to mechanically altered diet, but has not been eating much. There was discussion about TPN, dietary is doing calorie counts to determine needs. Discussion with daughter about possibility of patient requiring PEG tube in the future. Plan: -Continue to encourage oral intake -Plan for TPN -Encourage incentive spirometry when up. -Advance diet as tolerated -Maintain Watkins catheter for strict I and O's -Daily dressing change -PPI therapy daily (2) Acute and chronic respiratory failure ([id number]) Current Visit: Yes Status: Acute IS every 1 hour while awake Aggressive pulmonary toilet Continue aerosol treatments as ordered Wean oxygen as tolerated Management per medicine service Qualifiers: Respiratory failure complication: hypoxia Qualified Code(s): J96.21 - Acute and chronic respiratory failure with hypoxia (3) Acute kidney injury superimposed on CKD Current Visit: Yes Status: Acute SCr 4.24>3.97, GFR 10 Plan: -Patient will need new Temp HD line today for HD -IV fluids -Avoid nephrotoxic medications -Continue Watkins catheter for strict I's and O's -Nephrology following- hemodialysis (4) Insulin dependent type 2 diabetes mellitus Current Visit: Yes Status: Chronic Continue to manage per medicine team (5) DVT prophylaxis Current Visit: No Status: Acute Continue EPCDs to bilateral lower extremities for DVT prophylaxis Continue heparin 5,000 units SQ twice daily for DVT prophylaxis Subjective Narrative: The patient was seen and examined. She is diaphoretic, mild abdominal tenderness. She continues to not eat very much, and discussion was had with her daughter about TPN and the possibility of a PEG tube placement. She has been fighting with her daughter this morning and refusing the BiPAP. She has increased edema and rhonchi. Objective Vital Signs - Last 8 Hours Temp Pulse Resp BP Pulse Ox 09/19/16 06:53 97.6 F 77 17 102/50 91 09/19/16 05:03 97.4 F L 93 19 138/67 89 09/19/16 04:17 18 90 09/19/16 04:00 88 09/19/16 01:24 73 94 09/19/16 00:49 19 117/67 95 09/19/16 00:24 72 Intake and Output 09/18/16 09/19/16 09/19/16 23:59 07:59 15:59 Intake Total 300 / 300 Output Total 950 / 950 200 / 200 Balance -650 / -650 -200 / -200 Intake: IV Fluids 300 / 300 Zyvox Premix 600mg/300mL 300 / 300 600 mg In 300 ml @ 150 mls/hr IVPB Q12HR [facility] Rx# :[id number] Output: Catheter 950 / 950 200 / 200 Other: Stool Size Large Stool Consistency soft Weight 97.6 kg Blood Glucose* 249 106 Patient Weight 09/19/16 23:59 Weight 97.6 kg - General physical appearance moderate distress, moderate pain, chronically ill, obese - ENT atraumatic, normocephalic - Neck Neck exam: trachea midline - Respiratory crackles: bilateral, wheezing: bilateral - Cardiovascular Cardiovascular exam: Present: irregular rhythm - Abdomen Abdomen: Present: bowel sounds present, soft, tender Abdominal Tenderness: RUQ, RLQ - Incision Incision: Present: clean and dry - Integumentary no rash, other (diaphoretic, cool, clammy) - Labs 09/19/16 04:54 09/19/16 04:54 Diabetes panel 09/19/16 Range/Units 04:54 Sodium 128 L (136-145) mEq/L Potassium 3.8 (3.5-4.5) mEq/L Chloride 91 L (98-109) mEq/L Carbon Dioxide 26 (19-29) mEq/L BUN 78 H (7-20) mg/dL Creatinine 4.24 H (0.57-1.11) mg/dL Glucose 34 L* (70-99) mg/dL Calcium 8.4 L (8.6-10.8) mg/dL Calcium panel 09/19/16 Range/Units 04:54 Calcium 8.4 L (8.6-10.8) mg/dL Phosphorus 5.5 H (2.3-4.7) mg/dL Pituitary panel 09/19/16 Range/Units 04:54 Sodium 128 L (136-145) mEq/L Potassium 3.8 (3.5-4.5) mEq/L Chloride 91 L (98-109) mEq/L Carbon Dioxide 26 (19-29) mEq/L BUN 78 H (7-20) mg/dL Creatinine 4.24 H (0.57-1.11) mg/dL Glucose 34 L* (70-99) mg/dL Calcium 8.4 L (8.6-10.8) mg/dL Adrenal panel 09/19/16 Range/Units 04:54 Sodium 128 L (136-145) mEq/L Potassium 3.8 (3.5-4.5) mEq/L Chloride 91 L (98-109) mEq/L Carbon Dioxide 26 (19-29) mEq/L BUN 78 H (7-20) mg/dL Creatinine 4.24 H (0.57-1.11) mg/dL Glucose 34 L* (70-99) mg/dL Calcium 8.4 L (8.6-10.8) mg/dL - VTE Documentation of Mechanical Device: Intermittent pneumatic compression device Consult Discharge Plan - Plan Referrals: Edith Peña CNP [Advanced Practice Nurse] - 09/26/16 10:15 am Kj Yost MD [Partnered Physician] - Therese Garcia CNP [Primary Care Provider] - 09/15/16 9:00 am () Prudence Escobedo MD [Partnered Physician] - 10/11/16 3:50 pm () - Attending Attestation I examined this patient and my medical decision-making was reviewed with the ENROLLMENT PROCESSOR/PA/Advanced Practice Nurse/Resident Physician. I agree with the documented findings, disposition and treatment plan as described except to the extent set forth below. The patient is seen and evaluated the morning rounds. She faces nutritional challenges. We will watch her calorie intake very closely. She may require PEG tube to augment her nutrition Sukumar Moy MD FACS
--- NOTE | 2016-09-19 09:18 | Nephrology Progress Note ---
Date of Encounter: 09/20/16 Time of Encounter: 08:45 - Assessment and Plan (1) CKD (chronic kidney disease) stage 4, GFR 15-29 ml/min Current Visit: Yes Status: Chronic Will need HD today after placement of a new temporary HD catheter. May need PIPE STRIPPER tomorrow, either HD vs UF Will decrease lasix now that HD is being restarted Continue to follow a renal protective strategy. Dose Rx by GFR. Strict I/Os. Will follow with you. Thank you. (2) Acute exacerbation of chronic obstructive airways disease Current Visit: Yes Status: Acute As per primary (3) Hypertension Current Visit: Yes Status: Chronic Stable Qualifiers: Hypertension type: essential hypertension Qualified Code(s): I10 - Essential (primary) hypertension (4) Hyponatremia Current Visit: Yes Status: Resolved Hypervolemic hyponatremia Subjective Principal diagnosis: [place] on CKD, COPD, PAF Interval history: Pt was s/e earlier today. She did not affirm N/V/D or uremic complaints. She described her level of shortness of breath remains about "the same". Her daugher the RN was present at bedside. Objective - Vital Signs Vital signs: Vital Signs Temp Pulse Resp BP Pulse Ox 09/19/16 06:53 97.6 F 77 17 102/50 91 09/19/16 05:03 97.4 F L 93 19 138/67 89 09/19/16 04:17 18 90 09/19/16 04:00 88 09/19/16 01:24 73 94 09/19/16 00:49 19 117/67 95 09/19/16 00:24 72 09/18/16 23:30 98.5 F 80 18 117/67 93 09/18/16 20:46 18 92 09/18/16 20:04 98.5 F 94 17 131/62 91 09/18/16 20:02 88 09/18/16 16:15 18 106/80 90 09/18/16 16:00 100 18 133/68 92 09/18/16 12:00 97.8 F 93 20 106/80 90 09/18/16 11:50 20 125/54 89 Intake and Output 09/18/16 09/19/16 09/19/16 23:59 07:59 15:59 Intake Total 300 / 300 0 / 0 Output Total 950 / 950 200 / 200 Balance -650 / -650 -200 / -200 0 / 0 Intake: IV Fluids 300 / 300 Zyvox Premix 600mg/300mL 300 / 300 600 mg In 300 ml @ 150 mls/hr IVPB Q12HR [facility] Rx# :[id number] Oral 0 / 0 Output: Catheter 950 / 950 200 / 200 Other: Meal Breakfast Percent of Meal Consumed 0% Stool Size Large Stool Consistency soft Weight 97.6 kg Blood Glucose* 249 106 Patient Weight 09/19/16 23:59 Weight 97.6 kg - General Appearance General appearance: Present: well-developed, well-nourished, obese, frail EENT: Present: ATNC, PERRL, mucous membranes moist Neck: Present: supple Respiratory: Present: wheezing, course breath sounds Cardiology: Present: edema (but improving), normal S1, normal S2 Gastrointestinal: Present: normoactive bowel sounds, no tenderness, no guarding Integumentary: Present: no rash, warm and dry Neurologic: Present: no focal deficit, no asterixis Musculoskeletal: Present: no deformities, no erythema - Lab 09/19/16 04:54 09/19/16 04:54 Most recent lab results ABG pH 7.39 pH Units (7.32-7.45) 09/13/16 21:19 ABG pCO2 45 mmHg (35-45) 09/13/16 21:19 ABG pO2 79 mmHg (85-104) L 09/13/16 21:19 ABG HCO3 27.2 mEQ/L (21-27) H 09/13/16 21:19 ABG O2 Saturation 95 % (95-98) 09/13/16 21:19 Calcium 8.4 mg/dL (8.6-10.8) L 09/19/16 04:54 Phosphorus 5.5 mg/dL (2.3-4.7) H 09/19/16 04:54 Magnesium 1.8 mg/dL (1.6-2.6) 09/19/16 04:54 Urine Creatinine 40 mg/dL 08/25/16 13:19 Urine Sodium 30.0 mEq/L 08/25/16 13:19 Urine Total Protein 22 mg/dL (1-14) H 08/24/16 14:18 - VTE Documentation of Mechanical Device: Intermittent pneumatic compression device Consult Discharge Plan - Plan Referrals: Edith Peña CNP [Advanced Practice Nurse] - 09/26/16 10:15 am Kj Yost MD [Partnered Physician] - Therese Garcia CNP [Primary Care Provider] - 09/15/16 9:00 am () Prudence Escobedo MD [Partnered Physician] - 10/11/16 3:50 pm ()
--- NOTE | 2016-09-19 11:18 | Infectious Disease Progress No ---
Date of Encounter: 09/19/16 Time of Encounter: 11:15 - Assessment and Plan (1) Leukocytosis Current Visit: Yes Status: Resolved The patient had a WBC of 16 post-op--? reactive vs. infectious etiology. WBC has trended back down to normal and the patient had leukopenia the last two days. WBC has again normalized on labs this morning. Qualifiers: Leukocytosis type: unspecified Qualified Code(s): D72.829 - Elevated white blood cell count, unspecified (2) Fever Current Visit: Yes Status: Acute Etiology unclear. The patient spiked a fever with a Tmax of 100.4 yesterday. Repeat blood cultures drawn 09/16/16 are NGTD. Consider additional infectious sources. C. diff negative. Check LFTs, amylase, and lipase. Repeat CT of the abdomen due to the presence of a psoas muscle mass on the CT last week --> phlegmon vs. hematoma vs. mass? Concern for infectious etiology. Will discuss with the primary team. Qualifiers: Fever type: unspecified Qualified Code(s): R50.9 - Fever, unspecified (3) Bacteremia due to Enterococcus Current Visit: Yes Status: Acute Source unclear, but possibly intra-abdominal vs. psoas muscle abscess vs. dialysis catheter infection. Blood culture drawn 09/08/16 came back positive 1/1 set for VRE. Repeat blood cultures drawn 09/11/16 are negative x 2 sets. Repeat blood cultures drawn 09/13/16 are positive 1/2 sets (from the TDC) for S. hominis. Peripheral stick blood culture remains NGTD. Additional blood cultures drawn from the TDC 09/14/16 are negative. Clinical exam reveals no evidence of endocarditis stigmata. However, due to the presence of possible septic emboli and the new-onset of A-fib RVR, we will need to rule out IE. VIC attempted, but unsuccessful due to inability to pass the scope into the esophagus. The patient has three minor Modified Pacheco's Criteria --> possibe IE. Started on Zyvox 09/09 per the primary team. Although Zyvox is inferior to Daptomycin, the patient's CT of the chest reveals possible septic emboli. Because Daptomycin is inactivated by lung surfactant, we will continue Zyvox 600mg IV BID. On HD days, give at least one dose after HD. Duration of treatment depends on the clinical picture. No dose-adjustment of Zyvox required. (4) Bacteremia due to Staphylococcus Current Visit: Yes Status: Acute Source likely the temporary dialysis catheter --> true infection vs. contaminant ? Blood culture drawn 09/13/16 from the HD catheter is positive 05/08 set for S. hominis. Blood culture drawn 09/13/16 from a peripheral stick at the same time is negative. Additional blood cultures drawn 09/14/16 (from the TDC) are negative. TDC was removed 09/15/16. Tip culture was negative. Continue Zyvox as above for VRE bacteremia. Discussed with Dr. Corona. Plans to have TDC re-inserted today for INFORMATICS NURSE SPECIALIST. (5) HCAP (healthcare-associated pneumonia) Current Visit: Yes Status: Resolved Causative organism unclear. CXR completed on admission revealed bilateral perihilar infiltrates. Repeat CXR completed 09/13/16 showed bibasilar atelectasis with pleural effusion. CT of the chest completed 09/13/16 showed bibasilar airspace disease with multiple small nodular lesions in the right lung with at least 1 cavitary nodule concerning for septic emboli. Patient previous treated with 8 days of IV Cefepime. Consider repeating CXR in the AM. Consider requesting pulmonology re-evaluate the patient. Swallow study negative for aspiration. Continue Cefepime 1 gram Q24H. Give after HD on the days patient gets HD. Continue Zyvox as above. Duration of treatment depends on the clinical picture. Monitor renal function and dose-adjust antibiotics. (6) Cavitary lesion of lung Current Visit: Yes Status: Acute CT of the chest completed 09/13/16 showed bilateral lower lobe airspace disease with multiple nodular lesions in the right lung with at least 1 cavitary lesion concerning for septic emboli. Based on the patient's recent bacteremia, septic emboli is a possibility. Continue antibiotics as above. Consider re-consulting pulmonology for their input. (7) Mass of psoas muscle Current Visit: Yes Status: Acute CT of the abdomen and pelvis completed 09/15/16 showed a hyperdense collection in the right psoas muscle suspicious for hematoma vs. phlegmon vs. mass. Etiology not entirely clear.--> ? source of bacteremia RP UTS unyielding. Consider repeating CT of the A/P to re-evaluate. Consider consulting IR for possible aspiration. (8) Acute kidney injury superimposed on CKD Current Visit: Yes Status: Acute The patient has required INFORMATICS NURSE SPECIALIST with the placement of a temporary dialysis catheter. Nephrology consulted and following. ELLE worse today. Discussed with Dr. Corona. Plans to re-insert TDC and re- start HD today. Dose-adjust antibiotics for HD and avoid nephrotoxins as able. (9) Acute and chronic respiratory failure Current Visit: No Status: Chronic Likely multifactorial--> PNA, fluid overload, septic emboli, COPD. Appears improved, but still required BIPAP at night. Currently on O2 via NC. Lasix has been re-started per the nephrology team. Continue supportive care per the primary team. Qualifiers: Respiratory failure complication: unspecified whether with hypoxia or hypercapnia Qualified Code(s): J96.20 - Acute and chronic respiratory failure , unspecified whether with hypoxia or hypercapnia (10) GIB (gastrointestinal bleeding) Current Visit: Yes Status: Acute Status post colonoscopy 08/31/[address] Escobedo which revealed seven colonic angioectasias. Right hemicolectomy recommended. Status post extended right hemicolectomy 09/05/[address] Moy. Operative report reviewed. Hgb down to 7.4 09/14/16. Received 2 units of PRBCs and hemoglobin only came up to 8.5 09/15/16. Hgb stable around 8. Repeat FOBT was positive. Management per the general surgery and GI teams. Qualifiers: GI bleed type/associated pathology: unspecified gastrointestinal hemorrhage type Qualified Code(s): K92.2 - Gastrointestinal hemorrhage, unspecified (11) Status post right hemicolectomy Current Visit: Yes Status: Acute POD #14. Status post extended right hemicolectomy with extensive KACY 09/06/[address] Moy. Appears to be doing well. Able to tolerate full liquids and is passing flatus and having BMs. TPN discontinued. Further management per the surgery team. (12) Acute exacerbation of chronic obstructive airways disease Current Visit: Yes Status: Acute (13) Anemia Current Visit: Yes Status: Chronic Likely secondary to GI bleed. Hgb stable at 8.4 this morning. Management per the primary and surgery teams. Qualifiers: Anemia type: iron deficiency Iron deficiency anemia type: unspecified iron deficiency Qualified Code(s): D50.9 - Iron deficiency anemia, unspecified (14) Atrial fibrillation with RVR Current Visit: Yes Status: Acute (15) CHF (congestive heart failure) Current Visit: Yes Status: Chronic Qualifiers: Congestive heart failure type: diastolic Congestive heart failure chronicity: chronic Qualified Code(s): I50.32 - Chronic diastolic (congestive ) heart failure (16) CKD (chronic kidney disease) stage 4, GFR 15-29 ml/min Current Visit: Yes Status: Chronic (17) Diabetes mellitus Current Visit: Yes Status: Chronic Qualifiers: Diabetes mellitus type: type 2 Diabetes mellitus complication status: with kidney complications Diabetes mellitus complication detail: with chronic kidney disease Diabetes mellitus snf insulin use: unspecified terminal operations manager insulin use status Chronic kidney disease stage: stage 4 (severe) Qualified Code(s): E11.22 - Type 2 diabetes mellitus with diabetic chronic kidney disease ; N18.4 - Chronic kidney disease, stage 4 (severe) (18) Oral candidiasis Current Visit: Yes Status: Acute Likely secondary to IV antibiotic use. Start Nystatin swish and spit. - Subjective Interval history: Patient seen and examined. Weekend notes reviewed. No acute events noted overnight. Patient sleepy, but awakens easily and participates in the exam. Both of the patient's daughters are at the bedside this morning. Denies pain currently. Per family, the patient complained of back pain and headache yesterday. Additionally, patient's daughter reports that the patient was awake most of the night "fighting" the BIPAP. Denies any chills or rigors, but continues to have documented fevers with a MAXIMUM TEMPERATURE of 100.4 yesterday. Denies chest pain, shortness of breath, or cough. Reports some intermittent nausea, but denies vomiting or abdominal pain. She is currently NPO and has not had breakfast. Patient has had diarrhea and rectal tube was placed due to skin breakdown. States she is passing gas and having bowel movements. Denies pain in any extremities. Infect Dis PN-Objective Data - Labs CBC & Chem 7: 09/20/16 03:11 09/20/16 03:11 Labs: Laboratory Results - last 24 hr 09/18/16 09/18/16 09/18/16 04:38 07:56 11:03 WBC RBC Hgb Hct MCV MCH MCHC RDW Plt Count MPV Immature Gran % Seg Neutrophils % Lymphocytes % Monocytes % Eosinophils % Basophils % Neutrophils # Lymphocytes # Monocytes # Eosinophils # Basophils # Platelet Estimate Large Platelets Immature Plt Fraction Sodium Potassium Chloride Carbon Dioxide BUN Creatinine Est GFR ( Amer) Est GFR (Non-Af Amer) BUN/Creatinine Ratio Glucose POC Glucose 125 H 230 H 183 H Calculated Osmolality Calcium Phosphorus Magnesium Urine Color Urine Clarity Urine pH Ur Specific [place] Urine Protein Urine Glucose (UA) Urine Ketones Urine Blood Urine Nitrite Urine Bilirubin Urine Urobilinogen Ur Leukocyte Esterase Urine Microscopic RBC Urine Microscopic WBC Ur Squamous Epith Cells Urine Bacteria Hyaline Casts Urine Yeast Ur Culture Indicated? Stl C. diff Tox B Gene 09/18/16 09/18/16 09/18/16 14:20 16:42 18:20 WBC RBC Hgb Hct MCV MCH MCHC RDW Plt Count MPV Immature Gran % Seg Neutrophils % Lymphocytes % Monocytes % Eosinophils % Basophils % Neutrophils # Lymphocytes # Monocytes # Eosinophils # Basophils # Platelet Estimate Large Platelets Immature Plt Fraction Sodium Potassium Chloride Carbon Dioxide BUN Creatinine Est GFR ( Amer) Est GFR (Non-Af Amer) BUN/Creatinine Ratio Glucose POC Glucose 313 H Calculated Osmolality Calcium Phosphorus Magnesium Urine Color Yellow Urine Clarity Clear Urine pH 6.0 Ur Specific [place] 1.012 Urine Protein 30 H Urine Glucose (UA) 250 H Urine Ketones Negative Urine Blood Small H Urine Nitrite Negative Urine Bilirubin Negative Urine Urobilinogen Normal Ur Leukocyte Esterase Trace H Urine Microscopic RBC 5-15 H Urine Microscopic WBC 5-15 H Ur Squamous Epith Cells Many H Urine Bacteria None Seen Hyaline Casts None Seen Urine Yeast Many H Ur Culture Indicated? YES A Stl C. diff Tox B Gene Negative 09/18/16 09/18/16 09/19/16 19:49 23:19 04:54 WBC 4.3 RBC 2.96 L Hgb 8.4 L Hct 25.6 L MCV 86.5 MCH 28.4 MCHC 32.8 RDW 15.2 H Plt Count 67 L MPV 10.2 Immature Gran % 1.2 Seg Neutrophils % 84.3 Lymphocytes % 8.9 Monocytes % 4.2 Eosinophils % 1.2 Basophils % 0.2 Neutrophils # 3.6 Lymphocytes # 0.4 L Monocytes # 0.2 Eosinophils # 0.1 Basophils # 0.0 Platelet Estimate Decreased L Large Platelets Present A Immature Plt Fraction 6.9 H Sodium Potassium Chloride Carbon Dioxide BUN Creatinine Est GFR ( Amer) Est GFR (Non-Af Amer) BUN/Creatinine Ratio Glucose POC Glucose 399 H 249 H Calculated Osmolality Calcium Phosphorus Magnesium Urine Color Urine Clarity Urine pH Ur Specific [place] Urine Protein Urine Glucose (UA) Urine Ketones Urine Blood Urine Nitrite Urine Bilirubin Urine Urobilinogen Ur Leukocyte Esterase Urine Microscopic RBC Urine Microscopic WBC Ur Squamous Epith Cells Urine Bacteria Hyaline Casts Urine Yeast Ur Culture Indicated? Stl C. diff Tox B Gene 09/19/16 04:54 WBC RBC Hgb Hct MCV MCH MCHC RDW Plt Count MPV Immature Gran % Seg Neutrophils % Lymphocytes % Monocytes % Eosinophils % Basophils % Neutrophils # Lymphocytes # Monocytes # Eosinophils # Basophils # Platelet Estimate Large Platelets Immature Plt Fraction Sodium 128 L Potassium 3.8 Chloride 91 L Carbon Dioxide 26 BUN 78 H Creatinine 4.24 H Est GFR ( Amer) 12 L Est GFR (Non-Af Amer) 10 L BUN/Creatinine Ratio 18 Glucose 34 L* POC Glucose Calculated Osmolality 286 Calcium 8.4 L Phosphorus 5.5 H Magnesium 1.8 Urine Color Urine Clarity Urine pH Ur Specific [place] Urine Protein Urine Glucose (UA) Urine Ketones Urine Blood Urine Nitrite Urine Bilirubin Urine Urobilinogen Ur Leukocyte Esterase Urine Microscopic RBC Urine Microscopic WBC Ur Squamous Epith Cells Urine Bacteria Hyaline Casts Urine Yeast Ur Culture Indicated? Stl C. diff Tox B Gene Cultures: Cultures 09/13/16 15:40 Blood Culture - Final Central Venous Catheter Staphylococcus hominis 09/13/16 15:08 Blood Culture - Final Peripheral Venipuncture No growth. 09/15/16 16:25 Catheter Tip Culture - Final Intravenous or Arterial Cath No growth. 09/16/16 11:52 Blood Culture - Preliminary Peripheral Venipuncture No growth. 09/16/16 11:45 Blood Culture - Preliminary Peripheral Venipuncture No growth. 09/11/16 04:19 Blood Culture - Final Peripheral Venipuncture No growth. 09/11/16 04:15 Blood Culture - Final Peripheral Venipuncture No growth. 09/14/16 15:39 Blood Culture - Preliminary Central Venous Catheter No growth. 09/14/16 15:39 Blood Culture - Preliminary Central Venous Catheter No growth. 09/13/16 13:00 Urine Culture - Final Urine,Clean Catch No growth. 09/08/16 08:04 Blood Culture - Final Peripheral Venipuncture Vanc. Resistant Enterococcus Serology 09/18/16 09/18/16 09/14/16 Range/Units 18:20 14:20 16:11 Urine Color Yellow (Yellow) Urine Clarity Clear (Clear) Urine pH 6.0 (5.0-8.0) pH Units Ur Specific [place] 1.012 (1.010-1.025) Urine Protein 30 H (Neg-Trace) mg/dL Urine Glucose (UA) 250 H (Normal) mg/dL Urine Ketones Negative (Negative) mg/dL Urine Blood Small H (Negative) Urine Nitrite Negative (Negative) Urine Bilirubin Negative (Negative) Urine Urobilinogen Normal (Normal) mg/dL Ur Leukocyte Esterase Trace H (Negative) Urine Microscopic RBC 5-15 H (0-3) per hpf Urine Microscopic WBC 5-15 H (0-3) per hpf Ur Squamous Epith Cells Many H (None-Few) per lpf Urine Bacteria None Seen (None-Few) per hpf Hyaline Casts None Seen (None-Few) per lpf Urine Yeast Many H (None Seen) per hpf Ur Culture Indicated? YES A (NO) Stool Occult Blood Positive A (Negative) Stl C. diff Tox B Gene Negative (Negative) A. baumannii (PCR) (Not Detect) Polly albicans (PCR) (Not Detect) C. glabrata (PCR) (Not Detect) C. krusei (PCR) (Not Detect) C. parapsilosis (PCR) (Not Detect) C. tropicalis (PCR) (Not Detect) Enterobacteriac sp PCR (Not Detect) E. cloacae complex PCR (Not Detect) Enterococcus sp PCR (Not Detect) E. coli (PCR) (Not Detect) H. influenzae (PCR) (Not Detect) Hep Bs Antigen (Nonreactive) Hep Bs Antibody mIU/mL Klebsiella oxytoca PCR (Not Detect) Klebsiella pneumoniae (Not Detect) List. monocytogenes PCR (Not Detect) N. meningitidis (PCR) (Not Detect) Proteus species (PCR) (Not Detect) Serratia marcescens PCR (Not Detect) Staphylococcus sp PCR (Not Detect) Staph aureus (PCR) (Not Detect) mecA-Methicil Res Gene (Not Detect) Streptococcus sp PCR (Not Detect) Group A Strep DNA (Not Detect) Group B Strep (PCR) (Not Detect) Strep pneumoniae (PCR) (Not Detect) P. aeruginosa (PCR) (Not Detect) Minerva/B-Vanco Res Genes (Not Detect) KPC (blaKPC) Detect PCR (Not Detect) 09/13/16 09/13/16 09/08/16 Range/Units 15:40 13:00 08:04 Urine Color Yellow (Yellow) Urine Clarity Cloudy A (Clear) Urine pH 6.0 (5.0-8.0) pH Units Ur Specific [place] 1.012 (1.010-1.025) Urine Protein 100 H (Neg-Trace) mg/dL Urine Glucose (UA) Normal (Normal) mg/dL Urine Ketones Negative (Negative) mg/dL Urine Blood Small H (Negative) Urine Nitrite Negative (Negative) Urine Bilirubin Negative (Negative) Urine Urobilinogen Normal (Normal) mg/dL Ur Leukocyte Esterase Small H (Negative) Urine Microscopic RBC 0-3 (0-3) per hpf Urine Microscopic WBC 15-30 H (0-3) per hpf Ur Squamous Epith Cells Many H (None-Few) per lpf Urine Bacteria None Seen (None-Few) per hpf Hyaline Casts None Seen (None-Few) per lpf Urine Yeast Many H (None Seen) per hpf Ur Culture Indicated? YES A (NO) Stool Occult Blood (Negative) Stl C. diff Tox B Gene (Negative) A. baumannii (PCR) Not Detected Not Detected (Not Detect) Polly albicans (PCR) Not Detected Not Detected (Not Detect) C. glabrata (PCR) Not Detected Not Detected (Not Detect) C. krusei (PCR) Not Detected Not Detected (Not Detect) C. parapsilosis (PCR) Not Detected Not Detected (Not Detect) C. tropicalis (PCR) Not Detected Not Detected (Not Detect) Enterobacteriac sp PCR Not Detected Not Detected (Not Detect) E. cloacae complex PCR Not Detected Not Detected (Not Detect) Enterococcus sp PCR Not Detected DETECTED A (Not Detect) E. coli (PCR) Not Detected Not Detected (Not Detect) H. influenzae (PCR) Not Detected Not Detected (Not Detect) Hep Bs Antigen (Nonreactive) Hep Bs Antibody mIU/mL Klebsiella oxytoca PCR Not Detected Not Detected (Not Detect) Klebsiella pneumoniae Not Detected Not Detected (Not Detect) List. monocytogenes PCR Not Detected Not Detected (Not Detect) N. meningitidis (PCR) Not Detected Not Detected (Not Detect) Proteus species (PCR) Not Detected Not Detected (Not Detect) Serratia marcescens PCR Not Detected Not Detected (Not Detect) Staphylococcus sp PCR DETECTED A Not Detected (Not Detect) Staph aureus (PCR) Not Detected Not Detected (Not Detect) mecA-Methicil Res Gene DETECTED A N/A (Not Detect) Streptococcus sp PCR Not Detected Not Detected (Not Detect) Group A Strep DNA Not Detected Not Detected (Not Detect) Group B Strep (PCR) Not Detected Not Detected (Not Detect) Strep pneumoniae (PCR) Not Detected Not Detected (Not Detect) P. aeruginosa (PCR) Not Detected Not Detected (Not Detect) Minerva/B-Vanco Res Genes N/A DETECTED A (Not Detect) KPC (blaKPC) Detect PCR N/A N/A (Not Detect) 09/07/16 Range/Units 13:42 Urine Color (Yellow) Urine Clarity (Clear) Urine pH (5.0-8.0) pH Units Ur Specific [place] (1.010-1.025) Urine Protein (Neg-Trace) mg/dL Urine Glucose (UA) (Normal) mg/dL Urine Ketones (Negative) mg/dL Urine Blood (Negative) Urine Nitrite (Negative) Urine Bilirubin (Negative) Urine Urobilinogen (Normal) mg/dL Ur Leukocyte Esterase (Negative) Urine Microscopic RBC (0-3) per hpf Urine Microscopic WBC (0-3) per hpf Ur Squamous Epith Cells (None-Few) per lpf Urine Bacteria (None-Few) per hpf Hyaline Casts (None-Few) per lpf Urine Yeast (None Seen) per hpf Ur Culture Indicated? (NO) Stool Occult Blood (Negative) Stl C. diff Tox B Gene (Negative) A. baumannii (PCR) (Not Detect) Polly albicans (PCR) (Not Detect) C. glabrata (PCR) (Not Detect) C. krusei (PCR) (Not Detect) C. parapsilosis (PCR) (Not Detect) C. tropicalis (PCR) (Not Detect) Enterobacteriac sp PCR (Not Detect) E. cloacae complex PCR (Not Detect) Enterococcus sp PCR (Not Detect) E. coli (PCR) (Not Detect) H. influenzae (PCR) (Not Detect) Hep Bs Antigen Nonreactive (Nonreactive) Hep Bs Antibody 3.83 mIU/mL Klebsiella oxytoca PCR (Not Detect) Klebsiella pneumoniae (Not Detect) List. monocytogenes PCR (Not Detect) N. meningitidis (PCR) (Not Detect) Proteus species (PCR) (Not Detect) Serratia marcescens PCR (Not Detect) Staphylococcus sp PCR (Not Detect) Staph aureus (PCR) (Not Detect) mecA-Methicil Res Gene (Not Detect) Streptococcus sp PCR (Not Detect) Group A Strep DNA (Not Detect) Group B Strep (PCR) (Not Detect) Strep pneumoniae (PCR) (Not Detect) P. aeruginosa (PCR) (Not Detect) Minerva/B-Vanco Res Genes (Not Detect) KPC (blaKPC) Detect PCR (Not Detect) - Impressions Impressions Chest X-Ray 09/18/16 16:13 IMPRESSION: Some worsening of cardiorespiratory status with more pronounced infiltrates in the left lower lobe and mild interstitial edema. D/ / 09/18/2016 17:19:48 Nancy Harper MD / jens Interpreting Provider: Nancy Harper MD Videofluoroscopic Swallow 09/19/16 00:01 IMPRESSION: Swallowing mechanism grossly within normal limits without evidence of aspiration. There was minimal flash penetration with thin liquids which reversed spontaneously. Please see separate speech pathology report for full discussion of findings and recommendations. D/ / Nancy Harper MD / Nancy Harper MD Interpreting Provider: Nancy Harper MD Exam - Constitutional Vitals: Temp Pulse Resp BP Pulse Ox 94.2 F L 78 16 115/56 92 09/19/16 11:06 09/19/16 11:06 09/19/16 11:06 09/19/16 11:06 09/19/16 11:06 General appearance: cooperative, no acute distress, obese - Head Head exam: Present: atraumatic, normal inspection, normocephalic - Eye Eye exam: Present: EOMI, normal appearance Pupils: Present: normal accommodation, PERRL - ENT ENT exam: Present: mucous membranes moist Additional comments: Oral thrush lesions noted to the buccal mucosa and tongue. - Neck Neck exam: Present: normal inspection - Respiratory Respiratory exam: Present: CTAB. Absent: rales, rhonchi, wheezes, tachypnea - Cardiovascular Cardiovascular exam: Present: RRR, +S1, +S2 - GI/Abdominal GI/Abdominal exam: Present: soft, tenderness (periumbilical - surgical incision site.). Absent: distended Additional comments: Midline abdominal incision with dressing C/D/I. [place] intact. 1cm area of wound edge separation noted around the umbilicus. Scant amount of sanguinous drainage noted on the dressing, but not actively draining. Watkins catheter noted to be draining clear yellow urine. Rectal tube noted with no gas or stool in the collection bag. - Extremities Exam Extremities exam: Present: normal inspection. Absent: joint swelling, tenderness Additional comments: 1+ edema noted to the BUE. - Back Exam Additional comments: Right flank tenderness/ecchymosis noted. Area of ecchymosis is receding based on previous skin markings, but still very tender to palpation. - Neurological Exam Neurological exam: Present: alert, oriented X3, no focal deficits - Psychiatric Psychiatric exam: Present: normal affect, normal mood - Skin Skin exam: Present: dry, intact, normal color, warm - VTE Documentation of Mechanical Device: Intermittent pneumatic compression device Consult Discharge Plan - Plan Referrals: Edith Peña CNP [Advanced Practice Nurse] - 09/26/16 10:15 am Kj Yost MD [Partnered Physician] - Therese Garcia CNP [Primary Care Provider] - 09/15/16 9:00 am () Prudence Escobedo MD [Partnered Physician] - 10/11/16 3:50 pm () - Attending Attestation I examined this patient and my medical decision-making was reviewed with the PLASTIC PARTS DESIGNER/PA/Advanced Practice Nurse/Resident Physician. I agree with the documented findings, disposition and treatment plan as described except to the extent set forth below. patient seen and examined in dialysis center. agree with above findings. continues to have fever. repeat CT abdomen/pelvis with oral contrast d/w Dr. Rojas
[2016-09-19] MEDS ORDERED: *HR* Heparin 5,000 UNIT/ML VIAL ONE (12:25)
--- NOTE | 2016-09-19 12:34 | IR Procedure Note ---
Date of procedure: 09/19/16 Consent Obtained: Written consent Timeout: Correct patient and procedure verified, Correct site verified, Time out performed, Skin prep completed Local anesthetic: Lidocaine 1% Indications: Renal failure Procedure Performed: Temp HD catheter placement Site/Technique: RIJV access, 15cm cath placement Results/Findings: Great aspiration. Triple lumen 11.5fr used. Estimated blood loss (cc): 1 Complications: None; Tolerated procedure well Post Procedure Treatment Plan: Monitoring in pts room
[2016-09-19] MEDS: *HR* Acetaminophen w/Cod 300-30 mg 1 TAB TABLET PO PRN ×2 (12:35→22:43)
[2016-09-19] MEDS ORDERED: *HR* Heparin 10,000 UNIT/10 ML VIAL IV PRN (12:53)
[2016-09-19] MEDS ORDERED: 0.9 % Sodium Chloride 2,000 ML ONE (13:11)
--- NOTE | 2016-09-19 17:57 | Internal Med Progress Note ---
Date of Encounter: 09/19/16 Time of Encounter: 16:00 - Assessment and plan (1) Bacteremia due to Enterococcus Current Visit: Yes Status: Acute Assessment and plan: 09/07 Patient has a Right dialysis CVC placed 09/08 Blood culture drawn due to leukocytosis and grew VRE 05/08 set 09/09 started on IV Zyvox. 09/11 Blood cultures, peripherally are negative 09/13 blood cultures x1 from Right Dialysis CVC grew Staphylococcus hominis. peripheral blood cultures NGTD. 09/15 Dialysis catheter was removed, tip culture NGTD. CT chest findings suggestive of septic emboli. consult CORNETIST. started on cefepime and continue on Zyvox day 7. 09/16 Unsuccessful VIC attempt. Peripheral blood cultures no growth to date. 09/19 I discussed case with dr booth from infectious disease. plan for repeat CT abdomen/pelvis to address possible phelgmon or hematoma. continue cefepime and zyvox. follow up final results of blood cultures. (2) Acute and chronic respiratory failure ([id number]) Current Visit: Yes Status: Acute Assessment and plan: Secondary to COPDE/CHFE/Afib and suspected septic emboli in lungs. patient uses [address] Chest 09/13 revealed bilateral lower lobe septic emboli as well as multiple small nodular right lung lesions, 1 is a cavitary nodule. suspicious for septic emboli. Patient underwent HD today with removal of 2600 ml. still requiring 5L oxymask. continue nebs, Zyvox, cefepime, oxygen supplementation, and BIPAP as needed. Qualifiers: Respiratory failure complication: hypoxia Qualified Code(s): J96.21 - Acute and chronic respiratory failure with hypoxia (3) Acute kidney injury superimposed on CKD Current Visit: Yes Status: Acute Assessment and plan: s/p Right CVC and HD 09/07, 09/08, 09/09, 09/12, 09/14. pt had placement of dialysis catheter followed by HD. close monitoring. avoid nephrotoxic agents as possible. (4) GIB (gastrointestinal bleeding) Current Visit: Yes Status: Acute Assessment and plan: Secondary to colonic angiodysplasia in the setting of anticoagulation s/p hemicolectomy 5/ POD 8, Appreciate surgery input. 5/4 Hgb at 6.5 post-surgery, she Received 2 units PRBCS 09/14 Hgb dropped to 7.4, transfused 2 units of PRBC during dialysis. fecal occult blood test. 09/15: Pt had CT abdomen and pelvis showing an elongated hyperdense collection within the right psoas muscle. consider hematoma, phlegmon or mass. 09/19 hgb is 8.4. close monitor. No external bleeding. Qualifiers: GI bleed type/associated pathology: unspecified gastrointestinal hemorrhage type Qualified Code(s): K92.2 - Gastrointestinal hemorrhage, unspecified (5) Angiodysplasia of colon Current Visit: Yes Status: Acute Assessment and plan: plan as GI bleed (6) Atrial fibrillation with RVR Current Visit: Yes Status: Acute Assessment and plan: 09/11 she developed Refractory Aflutter requiring cardizem drip, cardiology was consulted 09/14: Hgb dropped to 7.4 and fecal occult blood is positive, stop heparin drip. 09/15: switched to oral metoprolol 09/17: oral metoprolol and IV metoprolol prn. (7) CHF (congestive heart failure) Current Visit: Yes Status: Chronic Assessment and plan: plan as above Qualifiers: Congestive heart failure type: diastolic Congestive heart failure chronicity: chronic Qualified Code(s): I50.32 - Chronic diastolic (congestive ) heart failure (8) CKD (chronic kidney disease) stage 4, GFR 15-29 ml/min Current Visit: Yes Status: Chronic Assessment and plan: As in ELLE on CKD (9) Diabetes mellitus Current Visit: Yes Status: Chronic Assessment and plan: DM with Hyperglycemia possibly secondary to Starting TPN 09/15: off TPN and insulin drip. 09/17: Glucose level of 63 at 4 AM. 09/18: Fasting glucose 230. insulin sliding scale. diabetic diet. Patient is eating more. I will start low-dose Levemir. 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 Barium swallow study toMorrow (11) Acute metabolic encephalopathy Current Visit: Yes Status: Acute Assessment and plan: Multifactorial due to infection, prolonged hospitalization brought, age, suspected early signs of dementia at home, recent surgery. Continue Seroquel 12.5 mg at bedtime only. Treat underlying etiology. - Subjective Interval history: No diarrhea. No external bleeding. No nausea or vomiting. She is eager to eat. - Constitutional Vitals: Temp Pulse Resp BP Pulse Ox 98.5 F 97 16 124/78 92 09/19/16 17:46 09/19/16 17:29 09/19/16 17:46 09/19/16 17:46 09/19/16 17:29 General appearance: Present: cooperative, A&O X 3, pleasant, no acute distress, obese, answers questions appropriately - Neck Neck exam general surgery: Present: supple, trachea midline. Absent: lymphadenopathy - Cardiovascular Cardiovascular exam: Present: RRR - GI/Abdominal GI/Abdominal exam: Present: normal bowel sounds, soft. Absent: distended, tenderness Additional comments: surgical wound has no signs of infection - Extremities Exam Extremities exam: Present: pedal edema (ankle edema) - Back Exam Back exam: Absent: normal inspection (right flank erythema with dependent edema. ) - Neurological Exam Neurological exam: Present: alert, oriented X3, no focal deficits, strengths equal and symetr throughout. Absent: facial droop, speech deficit - Skin Skin exam: Absent: rash Internal Medicine: Result - Labs CBC & Chem 7: 09/19/16 04:54 09/19/16 04:54 Labs: Short CBC 09/19/16 Range/Units 04:54 WBC 4.3 (4.3-11.1) K/mcL Hgb 8.4 L (11.5-15.4) g/dL Hct 25.6 L (35.3-44.9) % Plt Count 67 L (140-400) K/mcL Neutrophils # 3.6 (1.6-8.9) K/mcL BMP 09/19/16 04:54 Sodium 128 L Potassium 3.8 Chloride 91 L Carbon Dioxide 26 BUN 78 H Creatinine 4.24 H Glucose 34 L* Calcium 8.4 L Urine 09/18/16 Range/Units 18:20 Urine Color Yellow (Yellow) Urine Clarity Clear (Clear) Urine pH 6.0 (5.0-8.0) pH Units Ur Specific [place] 1.012 (1.010-1.025) Urine Protein 30 H (Neg-Trace) mg/dL Urine Glucose (UA) 250 H (Normal) mg/dL - ABG Interpretation ABG results: ABG ABG pH 7.39 pH Units (7.32-7.45) 09/13/16 21:19 ABG pCO2 45 mmHg (35-45) 09/13/16 21:19 ABG pO2 79 mmHg (85-104) L 09/13/16 21:19 ABG O2 Saturation 95 % (95-98) 09/13/16 21:19 PT/INR, D-dimer PT 11.1 Seconds (9.4-12.1) 09/18/16 04:38 - Impressions Impressions Guidance Needle Placement Ultrasound 09/19/16 00:00 IMPRESSION: Successful ultrasound-guided vascular access into the right internal jugular vein, with placement of a triple-lumen temporary hemodialysis catheter which may be used immediately. D/ / Lalo Weinstein MD / Lalo Weinstein MD Interpreting Provider: Lalo Weinstein MD Insertion Non-Tunneled Catheter 09/19/16 00:00 IMPRESSION: Successful ultrasound-guided vascular access into the right internal jugular vein, with placement of a triple-lumen temporary hemodialysis catheter which may be used immediately. D/ / Lalo Weinstein MD / Lalo Weinstein MD Interpreting Provider: Lalo Weinstein MD Videofluoroscopic Swallow 09/19/16 00:01 IMPRESSION: Swallowing mechanism grossly within normal limits without evidence of aspiration. There was minimal flash penetration with thin liquids which reversed spontaneously. Please see separate speech pathology report for full discussion of findings and recommendations. D/ / Nancy Harper MD / Nancy Harper MD Interpreting Provider: Nancy Harper MD Chest X-Ray 09/19/16 12:32 IMPRESSION: 1. Interval placement of a temporary right IJ hemodialysis catheter, which is appropriately positioned at the cavoatrial junction. 2. Stable pulmonary vascular congestion and small pleural effusions. D/ / Antonio Whelan MD / Antonio Whelan MD Interpreting Provider: Antonio Whelan MD - VTE Documentation of Mechanical Device: Intermittent pneumatic compression device Consult Discharge Plan - Plan Referrals: Edith Peña CNP [Advanced Practice Nurse] - 09/26/16 10:15 am Kj Yost MD [Partnered Physician] - Therese Garcia CNP [Primary Care Provider] - 09/15/16 9:00 am () Prudence Escobedo MD [Partnered Physician] - 10/11/16 3:50 pm ()
[2016-09-19] MEDS: Miconazole w/zinc oxide&karaya 92 APPL/92 GM TUBE TP SCH ×2 (18:07→20:41)
[2016-09-19] MEDS: Nystatin SUSP 5 ML UD.LIQ PO SCH ×2 (19:38→20:39)
[2016-09-19] MEDS: Cefepime HCl 1,000 MG in D5% in Water (Mini-Bag+) 100 ML IVPB SCH (20:31)
[2016-09-20] MEDS: Insulin LISPRO 300 UNITS/3 ML VIAL SQ SCH ×6 (00:03→21:40)
[2016-09-20] MEDS: Ipratropium/Albuterol Neb 3 ML IH SCH ×7 (00:39→23:47)
[2016-09-20] MEDS: *HR* LORazepam 0.5 MG TABLET PO PRN (03:33)
[2016-09-20] MEDS: Ondansetron 4 MG/2 ML VIAL IVP PRN (04:00)
[2016-09-20 04:47] LABS: Hemoglobin 8.2 g/dL (11.5-15.4)
[2016-09-20] MEDS: Acetylcysteine 10% 2 ML INHSOL IH SCH ×3 (04:47→20:09)
[2016-09-20 04:49] LABS: Eosinophils % 1.1 %; Hematocrit 25.1 % (35.3-44.9); Immature Granulocytes % 1.1 % (0-4); Immature Platelets 9.4 % (1.1-6.1); Lymphocytes # 0.2 K/mcL (0.6-4.6); Lymphocytes % 8.5 %; Mean Corpuscular HGB Conc 32.7 g/dL (31.6-35.5); Mean Corpuscular Hemoglobin 28.1 pg (28.0-33.3); Monocytes # 0.1 K/mcL (0.0-1.3); Monocytes % 3.5 %; Neutrophils # 2.4 K/mcL (1.6-8.9); Red Blood Count 2.92 M/mcL (3.82-4.97); Red Cell Distribution Width 15.1 % (11.5-14.5); Segmented Neutrophils % 85.8 %
[2016-09-20 05:03] LABS: Calcium 7.9 mg/dL (8.6-10.8); Magnesium 1.3 mg/dL (1.6-2.6); Phosphorous 3.5 mg/dL (2.3-4.7); Potassium 3.5 mEq/L (3.5-4.5)
[2016-09-20 05:11] LABS: Platelet Count 65 K/mcL (140-400)
[2016-09-20 05:13] LABS: Platelet Estimate Decreased (Normal)
[2016-09-20] MEDS ORDERED: Magnesium Sulfate 2 GM in D5% in Water 100 ML IVPB ONE (07:56)
[2016-09-20] MEDS ORDERED: 0.9 % Sodium Chloride 250 ML IVC PRN (08:18)
[2016-09-20] MEDS: predniSONE 5 MG TABLET PO SCH (09:12)
[2016-09-20] MEDS: Nystatin SUSP 5 ML UD.LIQ PO SCH ×4 (09:13→20:01)
[2016-09-20] MEDS: Miconazole w/zinc oxide&karaya 92 APPL/92 GM TUBE TP SCH ×3 (09:13→20:02)
[2016-09-20] MEDS: Nystatin POWDER 30 GM BOTTLE TP SCH ×3 (09:13→20:02)
--- NOTE | 2016-09-20 09:26 | Nephrology Progress Note ---
Date of Encounter: 09/20/16 Time of Encounter: 09:24 - Assessment and Plan (1) Acute kidney injury superimposed on CKD Current Visit: Yes Status: Acute HD yesterday after line holiday Plan for HD again today Decrease Lasix to 40mg p.o. daily Good UOP yeterday-900ml Avoid nephrotoxins if possible (2) CKD (chronic kidney disease) stage 4, GFR 15-29 ml/min Current Visit: Yes Status: Chronic Baseline GFR low 20s Unknown yet if kidneys will recover from this ELLE Avoid nephrotoxins (3) Acute exacerbation of chronic obstructive airways disease Current Visit: Yes Status: Acute per primary team (4) Anemia Current Visit: Yes Status: Chronic Hgb 8.2 dx gatrointestinal bleeding per primary team Qualifiers: Anemia type: iron deficiency Iron deficiency anemia type: unspecified iron deficiency Qualified Code(s): D50.9 - Iron deficiency anemia, unspecified (5) Hypomagnesemia Current Visit: No Status: Acute Mg 1.3 Replenished this am with IV mg rider 2gm Subjective Principal diagnosis: ELLE on CKD, COPD, PAF Interval history: Patient seen and examined. Daughters at bedside; patient resting comfortably. Daughter states patient did not sleep at all last night Objective - Vital Signs Vital signs: Vital Signs Temp Pulse Resp BP Pulse Ox 09/20/16 07:40 20 92 09/20/16 07:02 100.8 F H 105 20 141/65 91 09/20/16 04:47 26 88 09/20/16 03:27 98.3 F 90 20 126/57 89 09/20/16 00:39 20 90 09/19/16 23:36 98.7 F 84 18 129/61 92 09/19/16 20:40 98.1 F 112 18 136/86 91 09/19/16 20:35 24 91 09/19/16 17:46 98.5 F 16 124/78 09/19/16 17:29 97.8 F 97 19 128/65 92 09/19/16 17:05 128/74 09/19/16 16:50 115/64 09/19/16 16:35 108/65 09/19/16 16:20 86 102/48 09/19/16 16:05 111/66 09/19/16 15:50 115/68 09/19/16 15:35 108/68 09/19/16 15:20 117/66 09/19/16 15:05 123/65 09/19/16 14:50 130/70 09/19/16 14:35 98 F 18 129/70 09/19/16 13:40 97.4 F L 09/19/16 12:38 96.2 F L 86 09/19/16 11:30 95.4 F L 09/19/16 11:06 94.2 F L 78 16 115/56 92 09/19/16 11:04 16 91 Intake and Output 09/19/16 09/20/16 09/20/16 23:59 07:59 15:59 Intake Total 800 / 800 300 / 300 Output Total 2900 / 2900 150 / 150 Balance -2100 / -2100 -150 / -150 300 / 300 Intake: IV Fluids 800 / 800 300 / 300 Maxipime 1,000 MG In 200 / 200 Dextrose 5% (Minibag+) 100 ML 100 ML @ 200 mls/ hr IVPB 1800 KEILA Rx#: [id number] Zyvox Premix 600mg/300mL 600 / 600 300 / 300 600 mg In 300 ml @ 150 mls/hr IVPB Q12HR KEILA Rx# :[id number] Output: Urine 0 / 0 Total Dialysis Output 2600 / 2600 Catheter 300 / 300 150 / 150 Other: Weight 96.8 kg Blood Glucose* 201 178 Hemodialysis Net Fluid 2000 Removed (mL) Patient Weight 09/20/16 23:59 Weight 96.8 kg - General Appearance General appearance: Present: chronically ill, frail EENT: Present: ATNC, hearing intact Neck: Present: supple Respiratory: Present: clear (decreased ) Cardiology: Present: edema, normal S1, normal S2 Dialysis Vascular Access: Venous Catheter Gastrointestinal: Present: no tenderness, no guarding, obese Integumentary: Present: warm and dry Neurologic: Present: alert and oriented x3 Psychiatric: Present: mood/affect appropriate, cooperative - Lab 09/20/16 03:11 09/20/16 03:11 Most recent lab results ABG pH 7.39 pH Units (7.32-7.45) 09/13/16 21:19 ABG pCO2 45 mmHg (35-45) 09/13/16 21:19 ABG pO2 79 mmHg (85-104) L 09/13/16 21:19 ABG HCO3 27.2 mEQ/L (21-27) H 09/13/16 21:19 ABG O2 Saturation 95 % (95-98) 09/13/16 21:19 Calcium 7.9 mg/dL (8.6-10.8) L 09/20/16 03:11 Phosphorus 3.5 mg/dL (2.3-4.7) 09/20/16 03:11 Magnesium 1.3 mg/dL (1.6-2.6) L 09/20/16 03:11 Urine Creatinine 40 mg/dL 08/25/16 13:19 Urine Sodium 30.0 mEq/L 08/25/16 13:19 Urine Total Protein 22 mg/dL (1-14) H 08/24/16 14:18 - VTE Documentation of Mechanical Device: Intermittent pneumatic compression device Consult Discharge Plan - Plan Referrals: Edith Peña CNP [Advanced Practice Nurse] - 09/26/16 10:15 am jK Yost MD [Partnered Physician] - Therese Garcia CNP [Primary Care Provider] - 09/15/16 9:00 am () Prudence Escobedo MD [Partnered Physician] - 10/11/16 3:50 pm ()
--- NOTE | 2016-09-20 09:36 | General Surgery Progress Note ---
Date of Encounter: 09/20/16 Time of Encounter: 09:34 - Assessment and Plan (1) Angiodysplasia of colon Current Visit: Yes Status: Acute POD #14 Extended right hemicolectomy. Lysis of adhesions times [address] Moy 09/13 positive blood cultures growing gram-positive cocci, HD catheter was removed 09/15. CT scan of the chest also shows possible septic emboli. Abdominal CT shows an elongated hyperdense collection within the right psoas muscle. US right flank unremarkable Patient has mild abdominal tenderness, incision is clean and dry. Patient is having BMs, bowel sounds present. She complains of nausea and frequent belching. Lung sounds have improved, however the patient is requiring increased oxygen to maintain oxygen saturation at 90%. Patient has been advanced to mechanically altered diet, but has not been eating much. She was only able to eat a small amount of ice cream yesterday. The patient faces nutritional challenges, will continue with calorie counts. She may require PEG tube to augment her nutrition Plan: -Continue to encourage oral intake -Consider TPN -Encourage incentive spirometry when up. -Advance diet as tolerated -Maintain Watkins catheter for strict I and O's -Daily dressing change -PPI therapy daily (2) Acute and chronic respiratory failure ([id number]) Current Visit: Yes Status: Acute IS every 1 hour while awake Aggressive pulmonary toilet Continue aerosol treatments as ordered Wean oxygen as tolerated Management per medicine service Qualifiers: Respiratory failure complication: hypoxia Qualified Code(s): J96.21 - Acute and chronic respiratory failure with hypoxia (3) Acute kidney injury superimposed on CKD Current Visit: Yes Status: Acute SCr 2.29<4.24, GFR 21 Plan: -IV fluids -Avoid nephrotoxic medications -Continue Watkins catheter for strict I's and O's -Nephrology following- hemodialysis (4) Insulin dependent type 2 diabetes mellitus Current Visit: Yes Status: Chronic Continue to manage per medicine team (5) DVT prophylaxis Current Visit: No Status: Acute Continue EPCDs to bilateral lower extremities for DVT prophylaxis Continue heparin 5,000 units SQ twice daily for DVT prophylaxis Subjective Patient reports: feels better, still having pain Narrative: Patient was seen and examined. She appears much more alert and is awake today during examination. She had hemodialysis yesterday after a temporary hemodialysis catheter was placed. She continues to complain of mild abdominal pain. Her daughter states that she was hungry and asking for food yesterday, however she was only able to eat a small amount of ice cream. Today she is belching and complaining of nausea. The patient's daughter states that she was unable to sleep last night. She also is concerned that the patient is requiring more oxygen to keep her oxygen saturation at 90%. Objective Vital Signs - Last 8 Hours Temp Pulse Resp BP Pulse Ox 09/20/16 07:40 20 92 09/20/16 07:02 100.8 F H 105 20 141/65 91 09/20/16 04:47 26 88 09/20/16 03:27 98.3 F 90 20 126/57 89 Intake and Output 09/19/16 09/20/16 09/20/16 23:59 07:59 15:59 Intake Total 800 / 800 300 / 300 Output Total 2900 / 2900 150 / 150 Balance -2100 / -2100 -150 / -150 300 / 300 Intake: IV Fluids 800 / 800 300 / 300 Maxipime 1,000 MG In 200 / 200 Dextrose 5% (Minibag+) 100 ML 100 ML @ 200 mls/ hr IVPB 1800 KEILA Rx#: [id number] Zyvox Premix 600mg/300mL 600 / 600 300 / 300 600 mg In 300 ml @ 150 mls/hr IVPB Q12HR KEILA Rx# :[id number] Output: Urine 0 / 0 Total Dialysis Output 2600 / 2600 Catheter 300 / 300 150 / 150 Other: Weight 96.8 kg Blood Glucose* 201 178 Hemodialysis Net Fluid 2000 Removed (mL) Patient Weight 09/20/16 23:59 Weight 96.8 kg - General physical appearance moderate distress, moderate pain, chronically ill, obese - Eyes normal ocular movement - ENT atraumatic, normocephalic - Neck Neck exam: no masses, trachea midline - Respiratory normal expansion crackles: bilateral - Cardiovascular Cardiovascular exam: Present: tachycardia, irregular rhythm - Abdomen Abdomen: Present: bowel sounds present, soft, tender Abdominal Tenderness: epigastic - Incision Incision: Present: clean and dry - Neurologic normal sensation - Psychiatric oriented to time, oriented to person, oriented to place, speech is normal - Labs 09/20/16 03:11 09/20/16 03:11 Diabetes panel 09/20/16 Range/Units 03:11 Sodium 131 L (136-145) mEq/L Potassium 3.5 (3.5-4.5) mEq/L Chloride 92 L (98-109) mEq/L Carbon Dioxide 29 (19-29) mEq/L BUN 34 H D (7-20) mg/dL Creatinine 2.29 H (0.57-1.11) mg/dL Glucose 81 (70-99) mg/dL Calcium 7.9 L (8.6-10.8) mg/dL Calcium panel 09/20/16 Range/Units 03:11 Calcium 7.9 L (8.6-10.8) mg/dL Phosphorus 3.5 (2.3-4.7) mg/dL Pituitary panel 09/20/16 Range/Units 03:11 Sodium 131 L (136-145) mEq/L Potassium 3.5 (3.5-4.5) mEq/L Chloride 92 L (98-109) mEq/L Carbon Dioxide 29 (19-29) mEq/L BUN 34 H D (7-20) mg/dL Creatinine 2.29 H (0.57-1.11) mg/dL Glucose 81 (70-99) mg/dL Calcium 7.9 L (8.6-10.8) mg/dL Adrenal panel 09/20/16 Range/Units 03:11 Sodium 131 L (136-145) mEq/L Potassium 3.5 (3.5-4.5) mEq/L Chloride 92 L (98-109) mEq/L Carbon Dioxide 29 (19-29) mEq/L BUN 34 H D (7-20) mg/dL Creatinine 2.29 H (0.57-1.11) mg/dL Glucose 81 (70-99) mg/dL Calcium 7.9 L (8.6-10.8) mg/dL - VTE Documentation of Mechanical Device: Intermittent pneumatic compression device Consult Discharge Plan - Plan Referrals: Edith Peña CNP [Advanced Practice Nurse] - 09/26/16 10:15 am Kj Yost MD [Partnered Physician] - Therese Garcia CNP [Primary Care Provider] - 09/15/16 9:00 am () Prudence Escobedo MD [Partnered Physician] - 10/11/16 3:50 pm () - Attending Attestation I examined this patient and my medical decision-making was reviewed with the PHD INTERN/PA/Advanced Practice Nurse/Resident Physician. I agree with the documented findings, disposition and treatment plan as described except to the extent set forth below. The patient is seen and evaluated morning rounds. Overall improvement in lung sounds slow improvement. gastrointestinal tract intact. Evaluate nutritional status. Sukumar Moy MD FACS
--- NOTE | 2016-09-20 11:00 | Infectious Disease Progress No ---
Date of Encounter: 09/20/16 Time of Encounter: 10:58 - Assessment and Plan (1) Leukopenia Current Visit: Yes Status: Acute The patient's WBC has dropped to 2.9 this morning. Etiology unclear--> infectious vs. drug-induced (Zyvox). Will need to switch antibiotics. See below. Qualifiers: Leukopenia type: neutropenia Neutropenia type: unspecified Qualified Code (s): D70.9 - Neutropenia, unspecified (2) Thrombocytopenia Current Visit: Yes Status: Acute Etiology unclear. HIT vs. infection-related. Platelets 65 this morning. Heparin discontinued per the primary team. No signs of active bleeding noted. Consider checking HIT panel. Consider hem/onc consult. Management per the primary team. (3) Fever Current Visit: Yes Status: Acute Etiology unclear. The patient spiked a fever with a Tmax of 100.8 this morning. Repeat blood cultures drawn 09/16/16 are NGTD. Consider additional infectious sources--> ?psoas muscle mass vs worsening PNA. C. diff negative. Qualifiers: Fever type: unspecified Qualified Code(s): R50.9 - Fever, unspecified (4) Bacteremia due to Enterococcus Current Visit: Yes Status: Acute Source unclear, but possibly intra-abdominal vs. psoas muscle mass vs. dialysis catheter infection. Blood culture drawn 09/08/16 came back positive 1/1 set for VRE. Repeat blood cultures drawn 09/11/16 are negative x 2 sets. Repeat blood cultures drawn 09/13/16 are positive 1/2 sets (from the TDC) for S. hominis. Peripheral stick blood culture remains NGTD. Additional blood cultures drawn from the TDC 09/14/16 are negative. Additional blood cultures drawn 09/16/16 (peripheral) are NGTD x 2 sets. Additional blood cultures drawn 09/18/16 (1 peripheral and 1 PICC) are NGTD as well. Clinical exam reveals no evidence of endocarditis stigmata. However, due to the presence of possible septic emboli and the new-onset of A-fib RVR, we will need to rule out IE. VIC attempted, but unsuccessful due to inability to pass the scope into the esophagus. The patient has three minor Modified Pacheco's Criteria --> possibe IE. Started on Zyvox 09/09 per the primary team due to needing coverage for PNA and daptomycin not penetrating lung tissue. Zyvox is likely contributing to the patient's leukopenia. Will need to discontinue Zyvox and start Daptomycin. The patient has had 11 days of Zyvox which should be adequate if her PNA was caused by gram positive bacteria. Start Daptomycin 6mg/kg IV Q48H, dosed for HD. Give after HD on dialysis days. Duration of treatment depends on the clinical picture, but likely a total of 14 days from the first set of negative blood cultures. Check baseline CK level. (5) Bacteremia due to Staphylococcus Current Visit: Yes Status: Acute Source likely the temporary dialysis catheter --> true infection vs. contaminant ? Blood culture drawn 09/13/16 from the HD catheter is positive / set for S. hominis. Blood culture drawn 09/13/16 from a peripheral stick at the same time is negative. Additional blood cultures drawn 09/14/16 (from the TDC) are negative. Additional blood cultures drawn 09/16/16 (peripheral) are NGTD x 2 sets. Additional blood cultures drawn 09/18/16 (1 peripheral and 1 PICC) are NGTD as well. TDC was removed 09/15/16. Tip culture was negative. No further treatment indicated. (6) HCAP (healthcare-associated pneumonia) Current Visit: Yes Status: Resolved Appears worse on imaging. The patient has increasing O2 requirements. Causative organism unclear. CXR completed on admission revealed bilateral perihilar infiltrates. Repeat CXR completed 09/13/16 showed bibasilar atelectasis with pleural effusion. CT of the chest completed 09/13/16 showed bibasilar airspace disease with multiple small nodular lesions in the right lung with at least 1 cavitary nodule concerning for septic emboli. Patient previous treated with 8 days of IV Cefepime. CT of the abdomen and pelvis completed 09/19/16 shows increase in size of nodular densitites within the right middle lobe with interval development of nodular densities with the right lower lobe most consistent with pneumonia. Basilar opacities in the bilateral lung bases with air bronchograms are also present, likely representing atelectasis, but superimposed PNA cannot be ruled out. Discussed with radiologist who states that pulmonary nodules are worse since last CT scan. Request pulmonology re-evaluate the patient. Spoke with Dr. Bernabe, pulmonology resident, and made her aware. The patient would likely benefit from a bronchoscopy. Swallow study negative for aspiration. Discontinue Cefepime. Start Meropenem 500mg IV Q24H, dosed for HD. Give after HD on dialysis days. Duration of treatment depends on the clinical picture. Await pulmonology recommendations. Monitor renal function and dose-adjust antibiotics. (7) Cavitary lesion of lung Current Visit: Yes Status: Acute CT of the chest completed 09/13/16 showed bilateral lower lobe airspace disease with multiple nodular lesions in the right lung with at least 1 cavitary lesion concerning for septic emboli. Based on the patient's recent bacteremia, septic emboli is a possibility. Continue antibiotics as above. Consider re-consulting pulmonology for their input. (8) Mass of psoas muscle Current Visit: Yes Status: Acute CT of the abdomen and pelvis completed 09/15/16 showed a hyperdense collection in the right psoas muscle suspicious for hematoma vs. phlegmon vs. mass. Etiology not entirely clear.--> ? source of bacteremia RP UTS unyielding. Repeat CT of the abdomen and pelvis 09/19/16 shows re-demonstration of the mass in the right psoas muscle, unchanged from previous CT. Consult IR for aspiration. Given the patient's persistent fevers, concern that this may be an uncontrolled source of infection. Send specimen for aerobic and anaerobic culture, cell count with differential, protein, LDH, and glucose. (9) Acute kidney injury superimposed on CKD Current Visit: Yes Status: Acute The patient has required DEADENER with the placement of a temporary dialysis catheter. Nephrology consulted and following. ELLE improved today after HD yesterday. Dose-adjust antibiotics for HD and avoid nephrotoxins as able. (10) Acute and chronic respiratory failure Current Visit: No Status: Chronic Likely multifactorial--> PNA, fluid overload, septic emboli, COPD. Appears improved, but still requires BIPAP at night. She has had increasing O2 demands over the last 24 hours. Lasix has been re-started per the nephrology team. Continue supportive care per the primary team. Qualifiers: Respiratory failure complication: unspecified whether with hypoxia or hypercapnia Qualified Code(s): J96.20 - Acute and chronic respiratory failure , unspecified whether with hypoxia or hypercapnia (11) GIB (gastrointestinal bleeding) Current Visit: Yes Status: Acute Status post colonoscopy 08/31/[address] Gul which revealed seven colonic angioectasias. Right hemicolectomy recommended. Status post extended right hemicolectomy 09/05/[address] Moy. Operative report reviewed. Hgb down to 7.4 09/14/16. Received 2 units of PRBCs and hemoglobin only came up to 8.5 09/15/16. Hgb stable around 8. Repeat FOBT was positive. Management per the general surgery and GI teams. Qualifiers: GI bleed type/associated pathology: unspecified gastrointestinal hemorrhage type Qualified Code(s): K92.2 - Gastrointestinal hemorrhage, unspecified (12) Status post right hemicolectomy Current Visit: Yes Status: Acute POD #15. Status post extended right hemicolectomy with extensive KACY 09/06/[address] Moy. Complaining of abdominal pain this morning, but CT of the abdomen and pelvis does not show anything new. PO intake has been poor. Calorie counts have been initiated. TPN discontinued. Further management per the surgery team. (13) Acute exacerbation of chronic obstructive airways disease Current Visit: Yes Status: Acute (14) Anemia Current Visit: Yes Status: Chronic Likely secondary to GI bleed. Hgb stable at 8.2 this morning. Management per the primary and surgery teams. Qualifiers: Anemia type: iron deficiency Iron deficiency anemia type: unspecified iron deficiency Qualified Code(s): D50.9 - Iron deficiency anemia, unspecified (15) Atrial fibrillation with RVR Current Visit: Yes Status: Acute Rate appears uncontrolled this morning. Management per the primary team. (16) Leukocytosis Current Visit: Yes Status: Resolved The patient had a WBC of 16 post-op--? reactive vs. infectious etiology. Resolved. Qualifiers: Leukocytosis type: unspecified Qualified Code(s): D72.829 - Elevated white blood cell count, unspecified (17) CHF (congestive heart failure) Current Visit: Yes Status: Chronic Qualifiers: Congestive heart failure type: diastolic Congestive heart failure chronicity: chronic Qualified Code(s): I50.32 - Chronic diastolic (congestive ) heart failure (18) CKD (chronic kidney disease) stage 4, GFR 15-29 ml/min Current Visit: Yes Status: Chronic (19) Diabetes mellitus Current Visit: Yes Status: Chronic Qualifiers: Diabetes mellitus type: type 2 Diabetes mellitus complication status: with kidney complications Diabetes mellitus complication detail: with chronic kidney disease Diabetes mellitus terminal worker insulin use: unspecified [facility] insulin use status Chronic kidney disease stage: stage 4 (severe) Qualified Code(s): E11.22 - Type 2 diabetes mellitus with diabetic chronic kidney disease ; N18.4 - Chronic kidney disease, stage 4 (severe) (20) Oral candidiasis Current Visit: Yes Status: Acute Likely secondary to IV antibiotic use. Continue Nystatin swish and swallow. - Subjective Interval history: Patient seen and examined in the HD unit. No acute events noted overnight. Patient sleepy, but awakens easily and participates in the exam. Patient complains of abdominal pain at the site of her incision. Denies any chills or rigors, but continues to have documented fevers with a MAXIMUM TEMPERATURE of 100.8 this morning. Denies chest pain, shortness of breath, or cough. Reports some intermittent nausea, but denies vomiting. Review of the notes reveal that the patient is not eating much. Patient has had diarrhea and rectal tube was placed due to skin breakdown. States she is passing gas. Denies pain in her back or any extremities. Infect Dis PN-Objective Data - Labs CBC & Chem 7: 09/20/16 03:11 09/20/16 03:11 Labs: Laboratory Results - last 24 hr 09/19/16 09/19/16 09/19/16 04:52 04:53 05:55 WBC RBC Hgb Hct MCV MCH MCHC RDW Plt Count MPV Immature Gran % Seg Neutrophils % Lymphocytes % Monocytes % Eosinophils % Basophils % Neutrophils # Lymphocytes # Monocytes # Eosinophils # Basophils # Platelet Estimate Immature Plt Fraction Sodium Potassium Chloride Carbon Dioxide BUN Creatinine Est GFR ( Amer) Est GFR (Non-Af Amer) BUN/Creatinine Ratio Glucose POC Glucose 38 L* 36 L* 91 H Calculated Osmolality Calcium Phosphorus Magnesium 09/19/16 09/19/16 09/19/16 06:49 11:01 17:25 WBC RBC Hgb Hct MCV MCH MCHC RDW Plt Count MPV Immature Gran % Seg Neutrophils % Lymphocytes % Monocytes % Eosinophils % Basophils % Neutrophils # Lymphocytes # Monocytes # Eosinophils # Basophils # Platelet Estimate Immature Plt Fraction Sodium Potassium Chloride Carbon Dioxide BUN Creatinine Est GFR ( Amer) Est GFR (Non-Af Amer) BUN/Creatinine Ratio Glucose POC Glucose 106 H 208 H 150 H Calculated Osmolality Calcium Phosphorus Magnesium 09/19/16 09/19/16 09/20/16 20:31 23:42 03:11 WBC 2.8 L RBC 2.92 L Hgb 8.2 L Hct 25.1 L MCV 86.0 MCH 28.1 MCHC 32.7 RDW 15.1 H Plt Count 65 L MPV 11.0 Immature Gran % 1.1 Seg Neutrophils % 85.8 Lymphocytes % 8.5 Monocytes % 3.5 Eosinophils % 1.1 Basophils % 0.0 Neutrophils # 2.4 Lymphocytes # 0.2 L Monocytes # 0.1 Eosinophils # 0.0 Basophils # 0.0 Platelet Estimate Decreased L Immature Plt Fraction 9.4 H Sodium Potassium Chloride Carbon Dioxide BUN Creatinine Est GFR ( Amer) Est GFR (Non-Af Amer) BUN/Creatinine Ratio Glucose POC Glucose 186 H 201 H Calculated Osmolality Calcium Phosphorus Magnesium 09/20/16 03:11 WBC RBC Hgb Hct MCV MCH MCHC RDW Plt Count MPV Immature Gran % Seg Neutrophils % Lymphocytes % Monocytes % Eosinophils % Basophils % Neutrophils # Lymphocytes # Monocytes # Eosinophils # Basophils # Platelet Estimate Immature Plt Fraction Sodium 131 L Potassium 3.5 Chloride 92 L Carbon Dioxide 29 BUN 34 H D Creatinine 2.29 H Est GFR ( Amer) 25 L Est GFR (Non-Af Amer) 21 L BUN/Creatinine Ratio 15 Glucose 81 POC Glucose Calculated Osmolality 279 L Calcium 7.9 L Phosphorus 3.5 Magnesium 1.3 L Cultures: Cultures 09/14/16 15:39 Blood Culture - Final Central Venous Catheter No growth. 09/14/16 15:39 Blood Culture - Final Central Venous Catheter No growth. 09/18/16 21:30 Blood Culture - Preliminary Peripheral Venipuncture No growth. 09/18/16 21:25 Blood Culture - Preliminary Peripheral Central Cath, Picc No growth. 09/18/16 18:20 Urine Culture - Final Urine,Clean Catch No growth. 09/13/16 15:40 Blood Culture - Final Central Venous Catheter Staphylococcus hominis 09/13/16 15:08 Blood Culture - Final Peripheral Venipuncture No growth. 09/15/16 16:25 Catheter Tip Culture - Final Intravenous or Arterial Cath No growth. 09/16/16 11:52 Blood Culture - Preliminary Peripheral Venipuncture No growth. 09/16/16 11:45 Blood Culture - Preliminary Peripheral Venipuncture No growth. 09/11/16 04:19 Blood Culture - Final Peripheral Venipuncture No growth. 09/11/16 04:15 Blood Culture - Final Peripheral Venipuncture No growth. 09/13/16 13:00 Urine Culture - Final Urine,Clean Catch No growth. 09/08/16 08:04 Blood Culture - Final Peripheral Venipuncture Vanc. Resistant Enterococcus Serology 09/18/16 09/18/16 09/14/16 Range/Units 18:20 14:20 16:11 Urine Color Yellow (Yellow) Urine Clarity Clear (Clear) Urine pH 6.0 (5.0-8.0) pH Units Ur Specific Ravenel 1.012 (1.010-1.025) Urine Protein 30 H (Neg-Trace) mg/dL Urine Glucose (UA) 250 H (Normal) mg/dL Urine Ketones Negative (Negative) mg/dL Urine Blood Small H (Negative) Urine Nitrite Negative (Negative) Urine Bilirubin Negative (Negative) Urine Urobilinogen Normal (Normal) mg/dL Ur Leukocyte Esterase Trace H (Negative) Urine Microscopic RBC 5-15 H (0-3) per hpf Urine Microscopic WBC 5-15 H (0-3) per hpf Ur Squamous Epith Cells Many H (None-Few) per lpf Urine Bacteria None Seen (None-Few) per hpf Hyaline Casts None Seen (None-Few) per lpf Urine Yeast Many H (None Seen) per hpf Ur Culture Indicated? YES A (NO) Stool Occult Blood Positive A (Negative) Stl C. diff Tox B Gene Negative (Negative) A. baumannii (PCR) (Not Detect) Polly albicans (PCR) (Not Detect) C. glabrata (PCR) (Not Detect) C. krusei (PCR) (Not Detect) C. parapsilosis (PCR) (Not Detect) C. tropicalis (PCR) (Not Detect) Enterobacteriac sp PCR (Not Detect) E. cloacae complex PCR (Not Detect) Enterococcus sp PCR (Not Detect) E. coli (PCR) (Not Detect) H. influenzae (PCR) (Not Detect) Hep Bs Antigen (Nonreactive) Hep Bs Antibody mIU/mL Klebsiella oxytoca PCR (Not Detect) Klebsiella pneumoniae (Not Detect) List. monocytogenes PCR (Not Detect) N. meningitidis (PCR) (Not Detect) Proteus species (PCR) (Not Detect) Serratia marcescens PCR (Not Detect) Staphylococcus sp PCR (Not Detect) Staph aureus (PCR) (Not Detect) mecA-Methicil Res Gene (Not Detect) Streptococcus sp PCR (Not Detect) Group A Strep DNA (Not Detect) Group B Strep (PCR) (Not Detect) Strep pneumoniae (PCR) (Not Detect) P. aeruginosa (PCR) (Not Detect) Minerva/B-Vanco Res Genes (Not Detect) KPC (blaKPC) Detect PCR (Not Detect) 09/13/16 09/13/16 09/08/16 Range/Units 15:40 13:00 08:04 Urine Color Yellow (Yellow) Urine Clarity Cloudy A (Clear) Urine pH 6.0 (5.0-8.0) pH Units Ur Specific Ravenel 1.012 (1.010-1.025) Urine Protein 100 H (Neg-Trace) mg/dL Urine Glucose (UA) Normal (Normal) mg/dL Urine Ketones Negative (Negative) mg/dL Urine Blood Small H (Negative) Urine Nitrite Negative (Negative) Urine Bilirubin Negative (Negative) Urine Urobilinogen Normal (Normal) mg/dL Ur Leukocyte Esterase Small H (Negative) Urine Microscopic RBC 0-3 (0-3) per hpf Urine Microscopic WBC 15-30 H (0-3) per hpf Ur Squamous Epith Cells Many H (None-Few) per lpf Urine Bacteria None Seen (None-Few) per hpf Hyaline Casts None Seen (None-Few) per lpf Urine Yeast Many H (None Seen) per hpf Ur Culture Indicated? YES A (NO) Stool Occult Blood (Negative) Stl C. diff Tox B Gene (Negative) A. baumannii (PCR) Not Detected Not Detected (Not Detect) Polly albicans (PCR) Not Detected Not Detected (Not Detect) C. glabrata (PCR) Not Detected Not Detected (Not Detect) C. krusei (PCR) Not Detected Not Detected (Not Detect) C. parapsilosis (PCR) Not Detected Not Detected (Not Detect) C. tropicalis (PCR) Not Detected Not Detected (Not Detect) Enterobacteriac sp PCR Not Detected Not Detected (Not Detect) E. cloacae complex PCR Not Detected Not Detected (Not Detect) Enterococcus sp PCR Not Detected DETECTED A (Not Detect) E. coli (PCR) Not Detected Not Detected (Not Detect) H. influenzae (PCR) Not Detected Not Detected (Not Detect) Hep Bs Antigen (Nonreactive) Hep Bs Antibody mIU/mL Klebsiella oxytoca PCR Not Detected Not Detected (Not Detect) Klebsiella pneumoniae Not Detected Not Detected (Not Detect) List. monocytogenes PCR Not Detected Not Detected (Not Detect) N. meningitidis (PCR) Not Detected Not Detected (Not Detect) Proteus species (PCR) Not Detected Not Detected (Not Detect) Serratia marcescens PCR Not Detected Not Detected (Not Detect) Staphylococcus sp PCR DETECTED A Not Detected (Not Detect) Staph aureus (PCR) Not Detected Not Detected (Not Detect) mecA-Methicil Res Gene DETECTED A N/A (Not Detect) Streptococcus sp PCR Not Detected Not Detected (Not Detect) Group A Strep DNA Not Detected Not Detected (Not Detect) Group B Strep (PCR) Not Detected Not Detected (Not Detect) Strep pneumoniae (PCR) Not Detected Not Detected (Not Detect) P. aeruginosa (PCR) Not Detected Not Detected (Not Detect) Minerva/B-Vanco Res Genes N/A DETECTED A (Not Detect) KPC (blaKPC) Detect PCR N/A N/A (Not Detect) 09/07/16 Range/Units 13:42 Urine Color (Yellow) Urine Clarity (Clear) Urine pH (5.0-8.0) pH Units Ur Specific Ravenel (1.010-1.025) Urine Protein (Neg-Trace) mg/dL Urine Glucose (UA) (Normal) mg/dL Urine Ketones (Negative) mg/dL Urine Blood (Negative) Urine Nitrite (Negative) Urine Bilirubin (Negative) Urine Urobilinogen (Normal) mg/dL Ur Leukocyte Esterase (Negative) Urine Microscopic RBC (0-3) per hpf Urine Microscopic WBC (0-3) per hpf Ur Squamous Epith Cells (None-Few) per lpf Urine Bacteria (None-Few) per hpf Hyaline Casts (None-Few) per lpf Urine Yeast (None Seen) per hpf Ur Culture Indicated? (NO) Stool Occult Blood (Negative) Stl C. diff Tox B Gene (Negative) A. baumannii (PCR) (Not Detect) Polly albicans (PCR) (Not Detect) C. glabrata (PCR) (Not Detect) C. krusei (PCR) (Not Detect) C. parapsilosis (PCR) (Not Detect) C. tropicalis (PCR) (Not Detect) Enterobacteriac sp PCR (Not Detect) E. cloacae complex PCR (Not Detect) Enterococcus sp PCR (Not Detect) E. coli (PCR) (Not Detect) H. influenzae (PCR) (Not Detect) Hep Bs Antigen Nonreactive (Nonreactive) Hep Bs Antibody 3.83 mIU/mL Klebsiella oxytoca PCR (Not Detect) Klebsiella pneumoniae (Not Detect) List. monocytogenes PCR (Not Detect) N. meningitidis (PCR) (Not Detect) Proteus species (PCR) (Not Detect) Serratia marcescens PCR (Not Detect) Staphylococcus sp PCR (Not Detect) Staph aureus (PCR) (Not Detect) mecA-Methicil Res Gene (Not Detect) Streptococcus sp PCR (Not Detect) Group A Strep DNA (Not Detect) Group B Strep (PCR) (Not Detect) Strep pneumoniae (PCR) (Not Detect) P. aeruginosa (PCR) (Not Detect) Minerva/B-Vanco Res Genes (Not Detect) KPC (blaKPC) Detect PCR (Not Detect) - Impressions Impressions Guidance Needle Placement Ultrasound 09/19/16 00:00 IMPRESSION: Successful ultrasound-guided vascular access into the right internal jugular vein, with placement of a triple-lumen temporary hemodialysis catheter which may be used immediately. D/ / Lalo Weinstein MD / Lalo Weinstein MD Interpreting Provider: Lalo Weinstein MD Insertion Non-Tunneled Catheter 09/19/16 00:00 IMPRESSION: Successful ultrasound-guided vascular access into the right internal jugular vein, with placement of a triple-lumen temporary hemodialysis catheter which may be used immediately. D/ / Lalo Weinstein MD / Lalo Weinstein MD Interpreting Provider: Lalo Weinstein MD Chest X-Ray 09/19/16 12:32 IMPRESSION: 1. Interval placement of a temporary right IJ hemodialysis catheter, which is appropriately positioned at the cavoatrial junction. 2. Stable pulmonary vascular congestion and small pleural effusions. D/ / Antonio Whelan MD / Antonio Whelan MD Interpreting Provider: Antonio Whelan MD Abdomen/Pelvis CT 09/19/16 20:00 IMPRESSION: 1. Re- demonstration of heterogeneous elongated focus within the right psoas muscle again suspicious for psoas hematoma. This is overall not significantly changed in size or appearance when compared with prior exam. A phlegmon or mass are again additional differential considerations. 2. Increase in size of nodular densities within the right middle lobe with interval development of nodular densities within the right middle lobe most compatible with pneumonia, however, follow-up to resolution is again recommended. Basilar opacities of also slightly increased half felt to reflect a combination of atelectasis and pneumonia. 3. Small bilateral pleural effusions. D/ / Bossman Lopez MD / Bossman Lopez MD Interpreting Provider: Bossman Lopez MD Exam - Constitutional Vitals: Temp Pulse Resp BP Pulse Ox 99 F 110 20 141/65 92 09/20/16 09:10 09/20/16 09:10 09/20/16 07:40 09/20/16 07:02 09/20/16 09:10 General appearance: cooperative, no acute distress, obese - Head Head exam: Present: atraumatic, normal inspection, normocephalic - Eye Eye exam: Present: EOMI, normal appearance, PERRL Pupils: Present: normal accommodation Additional comments: No subconjunctival hemorrhage noted. - ENT ENT exam: Present: mucous membranes moist Additional comments: Oral thrush lesions improved. - Neck Neck exam: Present: normal inspection Additional comments: TDC noted to the right neck with transparent dressing C/D/I. - Respiratory Respiratory exam: Present: rhonchi (Throughout). Absent: rales, respiratory distress, wheezes - Cardiovascular Cardiovascular exam: Present: irregular rhythm, tachycardia Additional comments: A-fib with intermittent tachycardia noted on telemetry. - GI/Abdominal GI/Abdominal exam: Present: normal bowel sounds, soft, tenderness (generalized) . Absent: distended Additional comments: Midline abdominal incision with dressing C/D/I. Wound edges well-approximated without erythema or drainage. Watkins catheter draining a small amount of clear yellow urine. Rectal tube noted with liquid brown stool in the collection device. - Extremities Exam Extremities exam: Present: normal inspection. Absent: joint swelling, pedal edema, tenderness Additional comments: No endocarditis stigmata noted. - Back Exam Additional comments: Unable to assess due to the patient not being able to turn during HD. - Neurological Exam Neurological exam: Present: alert, oriented X3, no focal deficits - Psychiatric Psychiatric exam: Present: normal affect, normal mood - Skin Skin exam: Present: dry, intact, normal color, warm - VTE Documentation of Mechanical Device: Intermittent pneumatic compression device Consult Discharge Plan - Plan Referrals: Edith Peña CNP [Advanced Practice Nurse] - 09/26/16 10:15 am Kj Yost MD [Partnered Physician] - Therese Garcia CNP [Primary Care Provider] - 09/15/16 9:00 am () Prudence Escobedo MD [Partnered Physician] - 10/11/16 3:50 pm () - Attending Attestation I examined this patient and my medical decision-making was reviewed with the KNITTER HELPER/PA/Advanced Practice Nurse/Resident Physician. I agree with the documented findings, disposition and treatment plan as described except to the extent set forth below.
[2016-09-20] MEDS: Furosemide 40 MG TABLET PO SCH (13:49)
[2016-09-20] MEDS: *HR* Metoprolol 5 MG/5 ML VIAL IVP PRN (14:46)
--- NOTE | 2016-09-20 15:00 | Pulmonology Progress Note ---
Date of Encounter: 09/20/16 Time of Encounter: 14:57 Assessment and Plan (1) Lung nodules Current Visit: Yes Status: Acute A 76-year-old with a history of COPD initially presenting with respiratory failure secondary COPD exacerbation and she has had a very prolonged difficult hospitalization including gastrointestinal hemorrhage status post resection persistent Atul anemia including Staphylococcus and enterococcus infections. She has been on multiple rounds of antibiotic antimicrobials continues to spike fevers Evaluated her CT scans which are notable for bilateral pulmonary nodules some with Small cavitation. I think this reflects septic emboli (from eteroccocal or staphylacoccal infections) and treatment thereof would consist of continued antimicrobials at the disrection of the infectious disease service. Other considerations would include vasculitis which seems unlikely or fungal infection however invasive pulmonary fungal infection would be very much less likely as well. Her Cardiopulmonary status at present is tenuous which is a combination of underlying COPD and volume overload from renal dysfunction/CHF long with intermittent atrial fibrillation which was noted on equipment monitor phototypesetting the patient was going in and out of. Present she is at increased risk for undergoing bronchoscopy and I feel that the value in bronchoscopy change current management is limited and there is significant risk of harm to the patient. We can reevaluate over the next 24-72 hours if concern persists for bronchoscopy and cardiopulmonary status improves with volume removal and control of atrial fibrillation reconsideration of bronchoscopy would be in order She will need repeat CT scan in 4-6 weeks after treatment has been deemed complete by infectious disease service From a COPD standpoint would continue bronchodilators did not see any strong indication to continue oral prednisone plan to wean off She would benefit from ongoing volume removal via hemodialysis, goal to keep oxygen saturation 89% and greater (2) Acute exacerbation of chronic obstructive airways disease Current Visit: Yes Status: Acute (3) Pneumonia Current Visit: No Status: Acute Qualifiers: Pneumonia type: due to unspecified organism Laterality: bilateral Lung location: unspecified part of lung Qualified Code(s): J18.9 - Pneumonia, unspecified organism (4) CHF (congestive heart failure) Current Visit: Yes Status: Chronic Qualifiers: Congestive heart failure type: diastolic Congestive heart failure chronicity: chronic Qualified Code(s): I50.32 - Chronic diastolic (congestive ) heart failure Subjective Principal diagnosis: ELLE on CKD, COPD, PAF Interval history: Patient seen and examined at bedside she states that she feels comfortable her breathing is not labored today although she has had increasing oxygen requirement over the last few days general she does not feel ill she wants to go home Objective PUL Vital signs: Last Vital Signs Temp 98.8 F 09/20/16 13:59 Pulse 97 09/20/16 13:57 Resp 18 09/20/16 13:59 BP 133/68 09/20/16 13:59 Pulse Ox 92 09/20/16 13:57 General appearance: no acute distress Eyes: nonicteric ENT: oropharynx moist Effort: normal Auscultation: bilateral: diminished breath sounds, rales Cardiovascular: irregular rhythm Gastrointestinal: non-tender Extremities: edema Results - Laboratory Findings CBC and BMP: 09/20/16 03:11 09/20/16 03:11 ABG ABG pH 7.39 pH Units (7.32-7.45) 09/13/16 21:19 ABG pCO2 45 mmHg (35-45) 09/13/16 21:19 ABG pO2 79 mmHg (85-104) L 09/13/16 21:19 ABG O2 Saturation 95 % (95-98) 09/13/16 21:19 PT/INR, D-dimer PT 11.1 Seconds (9.4-12.1) 09/18/16 04:38 Abnormal lab findings: Abnormal lab results WBC 2.8 K/mcL (4.3-11.1) L 09/20/16 03:11 RBC 2.92 M/mcL (3.82-4.97) L 09/20/16 03:11 Hgb 8.2 g/dL (11.5-15.4) L 09/20/16 03:11 Hct 25.1 % (35.3-44.9) L 09/20/16 03:11 RDW 15.1 % (11.5-14.5) H 09/20/16 03:11 Plt Count 65 K/mcL (140-400) L 09/20/16 03:11 Band Neutrophils % 14.0 % (0-4) H 09/18/16 04:38 Lymphocytes # 0.2 K/mcL (0.6-4.6) L 09/20/16 03:11 Nucleated RBCs/100 WBC 0.5 /100 WBC (0) H 09/13/16 04:25 Toxic Granulation Present (Not Present) A 09/18/16 04:38 Platelet Estimate Decreased (Normal) L 09/20/16 03:11 Large Platelets Present (Not Present) A 09/19/16 04:54 Immature Plt Fraction 9.4 % (1.1-6.1) H 09/20/16 03:11 Polychromasia 1+ (Not Present) A 09/16/16 03:10 Basophilic Stippling 2+ (Not Present) A 09/14/16 03:00 Anisocytosis 1+ (Not Present) A 09/16/16 03:10 APTT 60.5 Seconds (26.0-36.0) H D 09/14/16 18:20 Heparin Anti-Xa, Unfract 1.06 IU/mL (0.30-0.70) H* 09/14/16 03:00 ABG pO2 79 mmHg (85-104) L 09/13/16 21:19 ABG HCO3 27.2 mEQ/L (21-27) H 09/13/16 21:19 ABG Total CO2 28.6 mEq/L (20-26) H 09/13/16 21:19 Sodium 131 mEq/L (136-145) L 09/20/16 03:11 Chloride 92 mEq/L (98-109) L 09/20/16 03:11 BUN 34 mg/dL (7-20) H D 09/20/16 03:11 Creatinine 2.29 mg/dL (0.57-1.11) H 09/20/16 03:11 Est GFR ( Amer) 25 (> 60) L 09/20/16 03:11 Est GFR (Non-Af Amer) 21 (> 60) L 09/20/16 03:11 POC Glucose 201 (58-89) H 09/19/16 23:42 Calculated Osmolality 279 (280-300) L 09/20/16 03:11 Uric Acid 10.4 mg/dL (2.6-6.0) H 08/25/16 12:10 Calcium 7.9 mg/dL (8.6-10.8) L 09/20/16 03:11 Magnesium 1.3 mg/dL (1.6-2.6) L 09/20/16 03:11 Creatine Kinase 24 Units/L (29-168) L 08/25/16 12:10 Troponin I 0.25 ng/mL (0-0.03) H* 09/08/16 11:50 B-Natriuretic Peptide 241 pg/mL (0-100) H 09/17/16 04:00 Albumin 2.5 g/dL (3.5-5.0) L 08/28/16 04:47 TSH 0.028 mcIU/mL (0.350-4.840) L 08/25/16 16:51 Urine Protein 30 mg/dL (Neg-Trace) H 09/18/16 18:20 Urine Glucose (UA) 250 mg/dL (Normal) H 09/18/16 18:20 Urine Blood Small (Negative) H 09/18/16 18:20 Ur Leukocyte Esterase Trace (Negative) H 09/18/16 18:20 Urine Microscopic RBC 5-15 per hpf (0-3) H 09/18/16 18:20 Urine Microscopic WBC 5-15 per hpf (0-3) H 09/18/16 18:20 Ur Squamous Epith Cells Many per lpf (None-Few) H 09/18/16 18:20 Urine Yeast Many per hpf (None Seen) H 09/18/16 18:20 Ur Culture Indicated? YES (NO) A 09/18/16 18:20 Protein/Creatinin Ratio 0.42 mg/mg (0-0.20) H 08/24/16 14:18 Urine Total Protein 22 mg/dL (1-14) H 08/24/16 14:18 Stool Occult Blood Positive (Negative) A 09/14/16 16:11 Staphylococcus sp PCR DETECTED (Not Detect) A 09/13/16 15:40 mecA-Methicil Res Gene DETECTED (Not Detect) A 09/13/16 15:40 - Microbiology Findings Microbiology Findings: Microbiology, Last 48 Hours 09/14/16 15:39 Blood Culture - Final Central Venous Catheter No growth. 09/14/16 15:39 Blood Culture - Final Central Venous Catheter No growth. 09/18/16 21:30 Blood Culture - Preliminary Peripheral Venipuncture No growth. 09/18/16 21:25 Blood Culture - Preliminary Peripheral Central Cath, Picc No growth. 09/18/16 18:20 Urine Culture - Final Urine,Clean Catch No growth. 09/13/16 15:40 Blood Culture - Final Central Venous Catheter Staphylococcus hominis 09/13/16 15:08 Blood Culture - Final Peripheral Venipuncture No growth. - Diagnostic Findings Chest x-ray: report reviewed, image reviewed - Clinical Findings Intake & Output: Intake & Output 09/19/16 09/20/16 09/20/16 23:59 07:59 15:59 Intake Total 800 / 800 3200 / 3200 Output Total 2900 / 2900 150 / 150 2850 / 2850 Balance -2100 / -2100 -150 / -150 350 / 350 Weight 96.8 kg - VTE Documentation of Mechanical Device: Intermittent pneumatic compression device Consult Discharge Plan - Plan Referrals: Edith Peña CNP [Advanced Practice Nurse] - 09/26/16 10:15 am Kj Yost MD [Partnered Physician] - Therese Garcia CNP [Primary Care Provider] - 09/15/16 9:00 am () Prudence Escobedo MD [Partnered Physician] - 10/11/16 3:50 pm ()
[2016-09-20] MEDS: *HR* Acetaminophen w/Cod 300-30 mg 1 TAB TABLET PO PRN (16:12)
[2016-09-20] MEDS: Meropenem 500 MG in 0.9 % Sodium Chloride Mini Bag 100 ML IVPB SCH (16:12)
--- NOTE | 2016-09-20 16:17 | Internal Med Progress Note ---
Date of Encounter: 09/20/16 Time of Encounter: 15:00 - Assessment and plan (1) Acute and chronic respiratory failure ([id number]) Current Visit: Yes Status: Acute Assessment and plan: Secondary to COPDE/CHFE/Afib and suspected septic emboli in lungs. patient uses [address] Chest 09/13 revealed bilateral lower lobe septic emboli as well as multiple small nodular right lung lesions, 1 is a cavitary nodule. suspicious for septic emboli. 09/20: Worsening hypoxia. Patient had HD yesterday and today with removal of ~ 4L. Now requiring [address] chest (ct abdomen from yesterday shows increase in size of pulmonary nodules in lower lungs). Appreciate pulmonary and ID input. Change antibiotics to meropenem and daptomycin. Continue nebs, oxygen supplementation, and BIPAP as needed. Qualifiers: Respiratory failure complication: hypoxia Qualified Code(s): J96.21 - Acute and chronic respiratory failure with hypoxia (2) Bacteremia due to Enterococcus Current Visit: Yes Status: Acute Assessment and plan: 09/07 Patient has a Right dialysis CVC placed 09/08 Blood culture drawn due to leukocytosis and grew VRE 05/08 set 09/09 started on IV Zyvox. 09/11 Blood cultures, peripherally are negative 09/13 blood cultures x1 from Right Dialysis CVC grew Staphylococcus hominis. peripheral blood cultures NGTD. 09/15 Dialysis catheter was removed, tip culture NGTD. CT chest findings suggestive of septic emboli. consult COMMUNITY SERVICES COORDINATOR. started on cefepime and continue on Zyvox day 7. 09/16 Unsuccessful VIC attempt. Peripheral blood cultures no growth to date. 09/19: Ct abdomen and pelvis shows increase in size of nodular densities within the right middle lobe most compatible with pneumonia, unchanged in size heterogeneous elongated focus within the right psoas muscle suspicious for hematoma. 09/20 I discussed case with dr Sanchez from infectious disease. change antibiotics to meropenem and daptomycin. follow up final results of blood cultures. (3) Acute kidney injury superimposed on CKD Current Visit: Yes Status: Acute Assessment and plan: s/p Right CVC and HD 09/07, 09/08, 09/09, 09/12, 09/14. 09/19: s/p dialysis catheter. HD 09/19, 09/20. Appreciate nephrology input. HD per nephrology. close monitoring. avoid nephrotoxic agents as possible. (4) GIB (gastrointestinal bleeding) Current Visit: Yes Status: Acute Assessment and plan: Secondary to colonic angiodysplasia in the setting of anticoagulation s/p hemicolectomy 09/06 POD 8, Appreciate surgery input. 09/08 Hgb at 6.5 post-surgery, she Received 2 units PRBCS 09/14 Hgb dropped to 7.4, transfused 2 units of PRBC during dialysis. fecal occult blood test. 09/15: Pt had CT abdomen and pelvis showing an elongated hyperdense collection within the right psoas muscle. consider hematoma, phlegmon or mass. 09/20 hgb is 8.2. close monitor. No external bleeding. Qualifiers: GI bleed type/associated pathology: unspecified gastrointestinal hemorrhage type Qualified Code(s): K92.2 - Gastrointestinal hemorrhage, unspecified (5) Angiodysplasia of colon Current Visit: Yes Status: Acute Assessment and plan: plan as GI bleed (6) Atrial fibrillation with RVR Current Visit: Yes Status: Acute Assessment and plan: 09/11 she developed Refractory Aflutter requiring cardizem drip, cardiology was consulted 09/14: Hgb dropped to 7.4 and fecal occult blood is positive, stop heparin drip. 09/15: switched to oral metoprolol 09/20: oral metoprolol and IV metoprolol prn. (7) CHF (congestive heart failure) Current Visit: Yes Status: Chronic Assessment and plan: plan as above Qualifiers: Congestive heart failure type: diastolic Congestive heart failure chronicity: chronic Qualified Code(s): I50.32 - Chronic diastolic (congestive ) heart failure (8) CKD (chronic kidney disease) stage 4, GFR 15-29 ml/min Current Visit: Yes Status: Chronic Assessment and plan: As in ELLE on CKD (9) Diabetes mellitus Current Visit: Yes Status: Chronic Assessment and plan: DM with Hyperglycemia possibly secondary to Starting TPN 09/15: off TPN and insulin drip. 09/17: Glucose level of 63 at 4 AM. 09/20: Fasting glucose 178. insulin sliding scale. diabetic diet. 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 Barium swallow study toMorrow (11) Acute metabolic encephalopathy Current Visit: Yes Status: Acute Assessment and plan: Multifactorial due to infection, prolonged hospitalization brought, age, suspected early signs of dementia at home, recent surgery. Continue Seroquel 12.5 mg at bedtime only. Treat underlying etiology. - Subjective Interval history: Requiring 10 L oxymask. No external bleeding. No nausea or vomiting. She is eager to eat. - Constitutional Vitals: Temp Pulse Resp BP Pulse Ox 98.8 F 97 18 133/68 92 09/20/16 13:59 09/20/16 13:57 09/20/16 13:59 09/20/16 13:59 09/20/16 13:57 General appearance: Present: cooperative, A&O X 3, pleasant, no acute distress, obese, answers questions appropriately - Neck Neck exam general surgery: Present: supple, trachea midline. Absent: lymphadenopathy - Respiratory Respiratory exam: Present: decreased breath sounds, rhonchi. Absent: wheezes - Cardiovascular Cardiovascular exam: Present: tachycardia - GI/Abdominal GI/Abdominal exam: Present: normal bowel sounds, soft, tenderness (mild tenderness. surgical wound with no signs of infection.). Absent: distended - Extremities Exam Extremities exam: Absent: pedal edema - Neurological Exam Neurological exam: Present: alert, oriented X3, no focal deficits. Absent: facial droop, speech deficit Internal Medicine: Result - Labs CBC & Chem 7: 09/20/16 03:11 09/20/16 03:11 Labs: Short CBC 09/20/16 Range/Units 03:11 WBC 2.8 L (4.3-11.1) K/mcL Hgb 8.2 L (11.5-15.4) g/dL Hct 25.1 L (35.3-44.9) % Plt Count 65 L (140-400) K/mcL Neutrophils # 2.4 (1.6-8.9) K/mcL BMP 09/20/16 03:11 Sodium 131 L Potassium 3.5 Chloride 92 L Carbon Dioxide 29 BUN 34 H D Creatinine 2.29 H Glucose 81 Calcium 7.9 L - ABG Interpretation ABG results: ABG ABG pH 7.39 pH Units (7.32-7.45) 09/13/16 21:19 ABG pCO2 45 mmHg (35-45) 09/13/16 21:19 ABG pO2 79 mmHg (85-104) L 09/13/16 21:19 ABG O2 Saturation 95 % (95-98) 09/13/16 21:19 PT/INR, D-dimer PT 11.1 Seconds (9.4-12.1) 09/18/16 04:38 - Impressions Impressions Abdomen/Pelvis CT 09/19/16 20:00 IMPRESSION: 1. Re- demonstration of heterogeneous elongated focus within the right psoas muscle again suspicious for psoas hematoma. This is overall not significantly changed in size or appearance when compared with prior exam. A phlegmon or mass are again additional differential considerations. 2. Increase in size of nodular densities within the right middle lobe with interval development of nodular densities within the right middle lobe most compatible with pneumonia, however, follow-up to resolution is again recommended. Basilar opacities of also slightly increased half felt to reflect a combination of atelectasis and pneumonia. 3. Small bilateral pleural effusions. D/ / Bossman Lopez MD / Bossman Lopez MD Interpreting Provider: Bossman Lopez MD - VTE Documentation of Mechanical Device: Intermittent pneumatic compression device Consult Discharge Plan - Plan Referrals: Edith Peña CNP [Advanced Practice Nurse] - 09/26/16 10:15 am Kj Yost MD [Partnered Physician] - Therese Garcia CNP [Primary Care Provider] - 09/15/16 9:00 am () Prudence Escobedo MD [Partnered Physician] - 10/11/16 3:50 pm ()
[2016-09-20] MEDS: DAPTOMYCIN IVPB SCH (17:27)
[2016-09-20] MEDS: SODIUM CHLORIDE 0.9% IVPB SCH (17:27)
[2016-09-20] MEDS: *HR* OxyCODONE Immed Rel 5 MG TABLET PO PRN (18:16)
[2016-09-20] MEDS ORDERED: *HR* LORazepam 2 MG/ML VIAL IVP ONE (22:33)
[2016-09-21] MEDS: Insulin LISPRO 300 UNITS/3 ML VIAL SQ SCH ×6 (00:50→21:08)
[2016-09-21 04:11] LABS: Immature Platelets 7.1 % (1.1-6.1); Mean Corpuscular Hemoglobin 28.7 pg (28.0-33.3); Mean Corpuscular Volume 89.6 fL (83.0-100.0); Mean Platelet Volume 11.3 fL (9.4-12.4); Red Blood Count 2.79 M/mcL (3.82-4.97); Red Cell Distribution Width 15.7 % (11.5-14.5)
[2016-09-21 04:16] LABS: Platelet Count 59 K/mcL (140-400)
[2016-09-21 04:23] LABS: Calcium 8.2 mg/dL (8.6-10.8); Magnesium 1.9 mg/dL (1.6-2.6); Potassium 3.7 mEq/L (3.5-4.5)
[2016-09-21 04:40] LABS: Basophils # 0.1 K/mcL (0.0-0.2); Eosinophils # 0.1 K/mcL (0.0-0.6); Lymphocytes # 0.2 K/mcL (0.6-4.6); Monocytes # 0.1 K/mcL (0.0-1.3); Neutrophils # 2.4 K/mcL (1.6-8.9); Platelet Estimate Decreased (Normal)
[2016-09-21 04:41] LABS: Hypochromasia Present (Not Present)
[2016-09-21] MEDS: Acetylcysteine 10% 2 ML INHSOL IH SCH ×2 (04:43→11:16)
[2016-09-21] MEDS: Ipratropium/Albuterol Neb 3 ML IH SCH ×6 (04:43→23:57)
--- NOTE | 2016-09-21 07:49 | General Surgery Progress Note ---
Date of Encounter: 09/21/16 Time of Encounter: 07:38 - Assessment and Plan (1) Angiodysplasia of colon Current Visit: Yes Status: Acute POD #15 Extended right hemicolectomy. Lysis of adhesions times [address] Moy 09/13 positive blood cultures growing gram-positive cocci CT scan of the chest also shows possible septic emboli. Abdominal CT shows an elongated hyperdense collection within the right psoas muscle. US right flank unremarkable Incision is clean and dry. Patient is having BMs, bowel sounds present. Patient has been advanced to mechanically altered diet, but has not been eating much. Patient's daughter states that she tells them she is hungry, but does not eat very much. The patient faces nutritional challenges, will continue with calorie counts. She may require PEG tube to augment her nutrition Plan: -Continue to encourage oral intake -Consider TPN -Encourage incentive spirometry when up. -Advance diet as tolerated -Maintain Watkins catheter for strict I and O's -Daily dressing change -PPI therapy daily (2) Acute and chronic respiratory failure ([id number]) Current Visit: Yes Status: Acute IS every 1 hour while awake Aggressive pulmonary toilet Continue aerosol treatments as ordered Wean oxygen as tolerated Management per medicine service Qualifiers: Qualified Code(s): J96.21 - Acute and chronic respiratory failure with hypoxia (3) Acute kidney injury superimposed on CKD Current Visit: Yes Status: Acute SCr 1.75<2.29, GFR 28 Plan: -IV fluids -Avoid nephrotoxic medications -Continue Watkins catheter for strict I's and O's -Nephrology following- hemodialysis (4) Insulin dependent type 2 diabetes mellitus Current Visit: Yes Status: Chronic Continue to manage per medicine team (5) DVT prophylaxis Current Visit: No Status: Acute Continue EPCDs to bilateral lower extremities for DVT prophylaxis Continue heparin 5,000 units SQ twice daily for DVT prophylaxis Subjective Narrative: The patient was seen and examined. He was able to sleep better yesterday. She will have a VIC today. Her daughter states that she is hungry but when she tries to eat she does not eat as much food. She has a rectal tube in place. Objective Vital Signs - Last 8 Hours Temp Pulse Resp BP Pulse Ox 09/21/16 07:24 98.6 F 86 18 148/67 93 09/21/16 04:44 20 94 09/21/16 04:02 98.8 F 73 18 125/59 97 09/21/16 00:49 98.8 F 72 17 117/52 100 09/20/16 23:48 21 100 Intake and Output 09/20/16 09/20/16 09/21/16 15:59 23:59 07:59 Intake Total 3200 / 3200 200 / 200 Output Total 2850 / 2850 40 / 40 Balance 350 / 350 160 / 160 Intake: IV Fluids 300 / 300 200 / 200 Cubicin 580.8 MG In 0.9 % 100 / 100 Sodium Chloride 100 ML @ 200 mls/hr IVPB Q48H KEILA Rx#:[id number] Zyvox Premix 600mg/300mL 300 / 300 600 mg In 300 ml @ 150 mls/hr IVPB Q12HR KEILA Rx# :[id number] Merrem 500 MG In 0.9 % 100 / 100 Sodium Chloride (Mini-Bag +) 100 ML @ 200 mls/hr IVPB Q24H KEILA Rx#: [id number] Oral 2600 / 2600 Intake, Rinseback and 300 / 300 Flushes Output: Urine 0 / 0 Total Dialysis Output 2600 / 2600 Rectal Tube 40 / 40 Catheter 250 / 250 Other: Stool Size Large Stool Consistency liquid Stool Color Green # Bowel Movements 1 # Bowel Movement Diapers 1 Weight 90.5 kg Blood Glucose* 295 128 Hemodialysis Net Fluid 2000 Removed (mL) Patient Weight 09/21/16 23:59 Weight 90.5 kg - General physical appearance moderate distress, moderate pain, chronically ill, obese - ENT atraumatic, normocephalic - Neck Neck exam: trachea midline, other (Temp HD catheter in place right neck) - Respiratory crackles: left, wheezing: left - Cardiovascular Cardiovascular exam: Present: irregular rhythm - Abdomen Abdomen: Present: bowel sounds present, soft, non tender - Incision Incision: Present: clean and dry - Labs 09/21/16 03:50 09/21/16 03:50 Diabetes panel 09/21/16 Range/Units 03:50 Sodium 138 D (136-145) mEq/L Potassium 3.7 (3.5-4.5) mEq/L Chloride 101 (98-109) mEq/L Carbon Dioxide 27 (19-29) mEq/L BUN 22 H D (7-20) mg/dL Creatinine 1.75 H (0.57-1.11) mg/dL Glucose 69 L (70-99) mg/dL Calcium 8.2 L (8.6-10.8) mg/dL Calcium panel 09/21/16 Range/Units 03:50 Calcium 8.2 L (8.6-10.8) mg/dL Pituitary panel 09/21/16 Range/Units 03:50 Sodium 138 D (136-145) mEq/L Potassium 3.7 (3.5-4.5) mEq/L Chloride 101 (98-109) mEq/L Carbon Dioxide 27 (19-29) mEq/L BUN 22 H D (7-20) mg/dL Creatinine 1.75 H (0.57-1.11) mg/dL Glucose 69 L (70-99) mg/dL Calcium 8.2 L (8.6-10.8) mg/dL Adrenal panel 09/21/16 Range/Units 03:50 Sodium 138 D (136-145) mEq/L Potassium 3.7 (3.5-4.5) mEq/L Chloride 101 (98-109) mEq/L Carbon Dioxide 27 (19-29) mEq/L BUN 22 H D (7-20) mg/dL Creatinine 1.75 H (0.57-1.11) mg/dL Glucose 69 L (70-99) mg/dL Calcium 8.2 L (8.6-10.8) mg/dL - VTE Documentation of Mechanical Device: Intermittent pneumatic compression device Consult Discharge Plan - Plan Referrals: Edith Peña CNP [Advanced Practice Nurse] - 09/26/16 10:15 am Kj Yost MD [Partnered Physician] - Therese Garcia CNP [Primary Care Provider] - () Prudence Escobedo MD [Partnered Physician] - 10/11/16 3:50 pm () - Attending Attestation I examined this patient and my medical decision-making was reviewed with the MILK BOTTLING MACHINE OPERATOR/PA/Advanced Practice Nurse/Resident Physician. I agree with the documented findings, disposition and treatment plan as described except to the extent set forth below. The patient seen and evaluated her. She is having bowel movements and normal bowel sounds. We continued to struggle with her oral intake. She will have VIC later today and then start back on her diet. Sukumar Moy MD FACS
--- NOTE | 2016-09-21 09:05 | Event Note ---
Date of Encounter: 09/21/16 Time of Encounter: 08:55 - Cardiology Event Note VIC was attempted by Dr. Mcclure on 09/16/16 with anesthesiology assistance. Despite multiple attempts and changes in body position, the probe could not be passed into the esophagus. VIC has been reordered. I went and discussed r/b/a with the patient and her daughter Tova. She is at higher risk of complications from the procedure due to her respiratory status and difficult anatomy. They are concerned that she is too weak for the VIC at this time and are concerned about the possibility of intubation during the procedure. As an alternative, I recommended continuing empiric treatment for possible endocarditis and repeating a TTE to reassess her valve structure and function. They prefer this strategy. I called and discussed this with her primary hospitalist, Dr. Rojas. Turner Michelle MD, [facility]
[2016-09-21] MEDS: Miconazole w/zinc oxide&karaya 92 APPL/92 GM TUBE TP SCH ×3 (09:10→21:08)
[2016-09-21] MEDS: Nystatin SUSP 5 ML UD.LIQ PO SCH ×4 (09:10→21:07)
[2016-09-21] MEDS: Nystatin POWDER 30 GM BOTTLE TP SCH ×3 (09:10→23:38)
[2016-09-21] MEDS: Furosemide 40 MG TABLET PO SCH (09:11)
[2016-09-21] MEDS: predniSONE 5 MG TABLET PO SCH (09:11)
--- NOTE | 2016-09-21 10:58 | Nephrology Progress Note ---
Date of Encounter: 09/21/16 Time of Encounter: 09:20 - Assessment and Plan (1) CKD (chronic kidney disease) stage 4, GFR 15-29 ml/min Current Visit: Yes Status: Chronic S/p HD back to back on Monday and Monday. Will hold off on HD today (Monday ) and proceed with tentative plans for intermittant HD via the RIJ temporary HD catheter. Continue to follow a renal protective strategy. Dose Rx by GFR. Strict I/Os. Will follow with you. Thank you. (2) Acute exacerbation of chronic obstructive airways disease Current Visit: Yes Status: Acute As per primary (3) Hypertension Current Visit: Yes Status: Chronic Stable Qualifiers: Hypertension type: essential hypertension Qualified Code(s): I10 - Essential (primary) hypertension (4) Hyponatremia Current Visit: Yes Status: Resolved Hypervolemic hyponatremia, corrected upon improving of her volume status from the last few days of back to back HD. Subjective Principal diagnosis: ELLE on CKD, COPD, PAF Interval history: Pt was s/e earlier today. She did not affirm N/V/D or uremic complaints. Her daughter was present. The pt said that she participated in PT earlier today Objective - Vital Signs Vital signs: Vital Signs Temp Pulse Resp BP Pulse Ox 09/21/16 08:45 104 09/21/16 07:32 18 93 09/21/16 07:24 98.6 F 86 18 148/67 93 09/21/16 04:44 20 94 09/21/16 04:02 98.8 F 73 18 125/59 97 09/21/16 00:49 98.8 F 72 17 117/52 100 09/20/16 23:48 21 100 09/20/16 21:15 98.7 F 107 22 141/65 93 09/20/16 20:41 20 92 09/20/16 16:13 20 90 09/20/16 15:55 90 92 09/20/16 15:00 100 09/20/16 14:45 135 145/85 92 09/20/16 13:59 98.8 F 18 133/68 09/20/16 13:57 98.1 F 97 20 136/74 92 09/20/16 13:05 124/72 09/20/16 12:55 132/42 09/20/16 12:40 128/75 09/20/16 12:25 119/63 09/20/16 12:10 88 128/69 94 09/20/16 11:55 128/47 09/20/16 11:40 116/67 09/20/16 11:25 113/62 09/20/16 11:10 118/65 Intake and Output 09/20/16 09/21/16 09/21/16 23:59 07:59 15:59 Intake Total 200 / 200 Output Total 40 / 40 Balance 160 / 160 Intake: IV Fluids 200 / 200 Cubicin 580.8 MG In 0.9 % 100 / 100 Sodium Chloride 100 ML @ 200 mls/hr IVPB Q48H KEILA Rx#:[id number] Merrem 500 MG In 0.9 % 100 / 100 Sodium Chloride (Mini-Bag +) 100 ML @ 200 mls/hr IVPB Q24H KEILA Rx#: [id number] Output: Rectal Tube 40 / 40 Other: Stool Size Large Stool Consistency liquid Stool Color Green # Bowel Movements 1 # Bowel Movement Diapers 1 Weight 90.5 kg Blood Glucose* 295 128 Patient Weight 09/21/16 23:59 Weight 90.5 kg - General Appearance General appearance: Present: well-developed, well-nourished, appears started age , frail EENT: Present: ATNC, PERRL Neck: Present: supple Respiratory: Present: wheezing, course breath sounds Cardiology: Present: edema (improving in her feet and hands), normal S1, normal S2 Gastrointestinal: Present: normoactive bowel sounds, no tenderness, no guarding Integumentary: Present: warm and dry Neurologic: Present: no focal deficit, no asterixis Musculoskeletal: Present: no deformities, no erythema Psychiatric: Present: cooperative - Lab 09/21/16 03:50 09/21/16 03:50 Most recent lab results ABG pH 7.39 pH Units (7.32-7.45) 09/13/16 21:19 ABG pCO2 45 mmHg (35-45) 09/13/16 21:19 ABG pO2 79 mmHg (85-104) L 09/13/16 21:19 ABG HCO3 27.2 mEQ/L (21-27) H 09/13/16 21:19 ABG O2 Saturation 95 % (95-98) 09/13/16 21:19 Calcium 8.2 mg/dL (8.6-10.8) L 09/21/16 03:50 Phosphorus 3.5 mg/dL (2.3-4.7) 09/20/16 03:11 Magnesium 1.9 mg/dL (1.6-2.6) 09/21/16 03:50 Urine Creatinine 40 mg/dL 08/25/16 13:19 Urine Sodium 30.0 mEq/L 08/25/16 13:19 Urine Total Protein 22 mg/dL (1-14) H 08/24/16 14:18 - VTE Documentation of Mechanical Device: Intermittent pneumatic compression device Consult Discharge Plan - Plan Referrals: Edith Peña CNP [Advanced Practice Nurse] - 09/26/16 10:15 am Kj Yost MD [Partnered Physician] - Therese Garcia CNP [Primary Care Provider] - () Prudence Escobedo MD [Partnered Physician] - 10/11/16 3:50 pm ()
[2016-09-21] MEDS: *HR* Acetaminophen w/Cod 300-30 mg 1 TAB TABLET PO PRN (14:01)
--- NOTE | 2016-09-21 14:51 | Internal Med Progress Note ---
Date of Encounter: 09/21/16 Time of Encounter: 14:20 - Assessment and plan (1) Acute and chronic respiratory failure ([id number]) Current Visit: Yes Status: Acute Assessment and plan: Secondary to COPDE/CHFE/Afib and suspected septic emboli in lungs. Patient uses [address] Chest 09/13 revealed bilateral lower lobe septic emboli as well as multiple small nodular right lung lesions, 1 is a cavitary nodule. suspicious for septic emboli. 09/20: Worsening hypoxia. Patient had HD 09/19 and 09/20 with removal of ~4L. Now requiring [address] chest showed overall worsening of ill-defined bilateral nodular infiltrates, primarily in the right upper lobe. Antibiotics switched to meropenem and daptomycin. 09/21: Appreciate pulmonary and ID input. high oxygen requirements (8L high flow nasal cannula). Continue empiric antibiotics with meropenem and daptomycin, nebs , oxygen supplementation, and BIPAP as needed. Qualifiers: Respiratory failure complication: hypoxia Qualified Code(s): J96.21 - Acute and chronic respiratory failure with hypoxia (2) Bacteremia due to Enterococcus Current Visit: Yes Status: Acute Assessment and plan: 09/07 Patient has a Right dialysis CVC placed 09/08 Blood culture drawn due to leukocytosis and grew VRE 05/08 set 09/09 started on IV Zyvox. 09/11 Blood cultures, peripherally are negative 09/13 blood cultures x1 from Right Dialysis CVC grew Staphylococcus hominis. peripheral blood cultures NGTD. 09/15 Dialysis catheter was removed, tip culture NGTD. CT chest findings suggestive of septic emboli. consult [employer]. started on cefepime and continue on Zyvox day 7. 09/16 Unsuccessful VIC attempt. Peripheral blood cultures negative. 09/19: Ct abdomen and pelvis shows increase in size of nodular densities within the right middle lobe most compatible with pneumonia, unchanged in size heterogeneous elongated focus within the right psoas muscle suspicious for hematoma. 09/21 persistent low grade fevers. continue empiric meropenem and daptomycin ( start date 09/20). follow up final results of blood cultures. (3) Acute kidney injury superimposed on CKD Current Visit: Yes Status: Acute Assessment and plan: s/p Right CVC and HD 09/07, 09/08, 09/09, 09/12, 09/14. 09/19: s/p dialysis catheter. HD 09/19, 09/20. I discussed case with Dr Corona of nephrology service, no need for dialysis today. close monitoring. avoid nephrotoxic agents as possible. (4) GIB (gastrointestinal bleeding) Current Visit: Yes Status: Acute Assessment and plan: Secondary to colonic angiodysplasia in the setting of anticoagulation s/p hemicolectomy 09/06 POD 8, Appreciate surgery input. 09/08 Hgb at 6.5 post-surgery, she Received 2 units PRBCS 09/14 Hgb dropped to 7.4, transfused 2 units of PRBC during dialysis. fecal occult blood test. 09/15: Pt had CT abdomen and pelvis showing an elongated hyperdense collection within the right psoas muscle. consider hematoma, phlegmon or mass. 09/20 hgb is 8. close monitor. No external bleeding. Qualifiers: GI bleed type/associated pathology: unspecified gastrointestinal hemorrhage type Qualified Code(s): K92.2 - Gastrointestinal hemorrhage, unspecified (5) Angiodysplasia of colon Current Visit: Yes Status: Acute Assessment and plan: plan as GI bleed (6) Atrial fibrillation with RVR Current Visit: Yes Status: Acute Assessment and plan: 09/11 she developed Refractory Aflutter requiring cardizem drip, cardiology was consulted 09/14: Hgb dropped to 7.4 and fecal occult blood is positive, stop heparin drip. 09/15: switched to oral metoprolol 09/21: oral metoprolol and IV metoprolol prn. (7) CHF (congestive heart failure) Current Visit: Yes Status: Chronic Assessment and plan: plan as above Qualifiers: Congestive heart failure type: diastolic Congestive heart failure chronicity: chronic Qualified Code(s): I50.32 - Chronic diastolic (congestive ) heart failure (8) CKD (chronic kidney disease) stage 4, GFR 15-29 ml/min Current Visit: Yes Status: Chronic Assessment and plan: As in ELLE on CKD (9) Diabetes mellitus Current Visit: Yes Status: Chronic Assessment and plan: DM with Hyperglycemia possibly secondary to Starting TPN 09/15: off TPN and insulin drip. 09/17: Glucose level of 63 at 4 AM. 09/20: Fasting glucose 178. insulin sliding scale. diabetic diet. 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 Barium swallow study toMorrow (11) Acute metabolic encephalopathy Current Visit: Yes Status: Acute Assessment and plan: Multifactorial due to infection, prolonged hospitalization brought, age, suspected early signs of dementia at home, recent surgery. Continue Seroquel 12.5 mg at bedtime only. Treat underlying etiology. - Subjective Interval history: Requiring 8 L oxymask. No external bleeding. No nausea or vomiting. She is eager to eat but gets full very fast. - Constitutional Vitals: Temp Pulse Resp BP Pulse Ox 100.4 F H 109 18 141/76 91 09/21/16 11:41 09/21/16 12:17 09/21/16 11:41 09/21/16 11:41 09/21/16 11:41 General appearance: Present: cooperative, A&O X 3, pleasant, no acute distress, obese, answers questions appropriately - Neck Neck exam general surgery: Present: supple, trachea midline. Absent: lymphadenopathy - Respiratory Respiratory exam: Present: rhonchi - Cardiovascular Cardiovascular exam: Present: RRR - GI/Abdominal GI/Abdominal exam: Present: normal bowel sounds, soft. Absent: distended, tenderness Additional comments: surgical wound with no signs of infection - Extremities Exam Extremities exam: Absent: pedal edema Additional comments: upper extremities swelling - Neurological Exam Neurological exam: Present: alert, oriented X3, no focal deficits, strengths equal and symetr throughout. Absent: facial droop, speech deficit - Skin Skin exam: Absent: intact (left arm skin tear with some bruises) Internal Medicine: Result - Labs CBC & Chem 7: 09/21/16 03:50 09/21/16 03:50 Labs: Short CBC 09/21/16 Range/Units 03:50 WBC 2.8 L (4.3-11.1) K/mcL Hgb 8.0 L (11.5-15.4) g/dL Hct 25.0 L (35.3-44.9) % Plt Count 59 L (140-400) K/mcL Neutrophils # 2.4 (1.6-8.9) K/mcL BMP 09/21/16 03:50 Sodium 138 D Potassium 3.7 Chloride 101 Carbon Dioxide 27 BUN 22 H D Creatinine 1.75 H Glucose 69 L Calcium 8.2 L - ABG Interpretation ABG results: ABG ABG pH 7.39 pH Units (7.32-7.45) 09/13/16 21:19 ABG pCO2 45 mmHg (35-45) 09/13/16 21:19 ABG pO2 79 mmHg (85-104) L 09/13/16 21:19 ABG O2 Saturation 95 % (95-98) 09/13/16 21:19 PT/INR, D-dimer PT 11.1 Seconds (9.4-12.1) 09/18/16 04:38 - Impressions Impressions Chest CT 09/20/16 15:25 IMPRESSION: 1. Overall worsening of ill-defined bilateral nodular infiltrates, primarily in the right upper lobe. These are likely infectious or inflammatory in etiology. Again, septic emboli are a consideration. 2. Stable bibasilar lung consolidations, due to either atelectasis and/or pneumonia. 3. Evidence of pulmonary artery hypertension. D/ / Antonio Whelan MD / Antonio Whelan MD Interpreting Provider: Antonio Whelan MD - VTE Documentation of Mechanical Device: Intermittent pneumatic compression device Consult Discharge Plan - Plan Referrals: Edith Peña CNP [Advanced Practice Nurse] - 09/26/16 10:15 am Kj Yost MD [Partnered Physician] - Therese Garcia CNP [Primary Care Provider] - () Prudence Escobedo MD [Partnered Physician] - 10/11/16 3:50 pm ()
--- NOTE | 2016-09-21 15:11 | Infectious Disease Progress No ---
Date of Encounter: 09/21/16 Time of Encounter: 15:06 - Assessment and Plan (1) Leukopenia Current Visit: Yes Status: Acute The patient's WBC has dropped to 2.8 this morning. Now has 14% bands. Etiology unclear--> infectious vs. drug-induced (Zyvox). Antibiotics switched. Re-check CBC in the morning. Qualifiers: Leukopenia type: neutropenia Neutropenia type: unspecified Qualified Code (s): D70.9 - Neutropenia, unspecified (2) Thrombocytopenia Current Visit: Yes Status: Acute Etiology unclear. HIT vs. infection-related. Platelets 59 this morning. Heparin discontinued per the primary team. No signs of active bleeding noted. Consider checking HIT panel. Consider hem/onc consult. Management per the primary team. (3) Fever Current Visit: Yes Status: Acute Etiology unclear. The patient spiked a fever with a Tmax of 100.8 this morning. Repeat blood cultures drawn 09/16/16 and 09/18/16 are NGTD. Consider additional infectious sources--> ?psoas muscle mass vs worsening PNA. C. diff negative. Qualifiers: Fever type: unspecified Qualified Code(s): R50.9 - Fever, unspecified (4) Bacteremia due to Enterococcus Current Visit: Yes Status: Acute Source unclear, but possibly intra-abdominal vs. psoas muscle mass vs. dialysis catheter infection. Blood culture drawn 09/08/16 came back positive 1/1 set for VRE. Repeat blood cultures drawn 09/11/16 are negative x 2 sets. Repeat blood cultures drawn 09/13/16 are positive 1/2 sets (from the TDC) for S. hominis. Peripheral stick blood culture remains NGTD. Additional blood cultures drawn from the TDC 09/14/16 are negative. Additional blood cultures drawn 09/16/16 (peripheral) are NGTD x 2 sets. Additional blood cultures drawn 09/18/16 (1 peripheral and 1 PICC) are NGTD as well. Clinical exam reveals no evidence of endocarditis stigmata. However, due to the presence of possible septic emboli and the new-onset of A-fib RVR, IE is of concern. VIC unsuccessful. Repeat VIC deferred by the primary team. The patient has three minor Modified Pacheco's Criteria --> possibe IE. Started on Zyvox 09/09 per the primary team due to needing coverage for PNA and daptomycin not penetrating lung tissue. Zyvox is likely contributing to the patient's leukopenia. Zyvox discontinued and Daptomycin started. The patient has had 11 days of Zyvox which should be adequate if her PNA was caused by gram positive bacteria. Continue Daptomycin 6mg/kg IV Q48H, dosed for HD. Give after HD on dialysis days. Duration of treatment depends on the clinical picture, but likely a total of 14 days from the first set of negative blood cultures. Baseline CK level 12. (5) Bacteremia due to Staphylococcus Current Visit: Yes Status: Acute Source likely the temporary dialysis catheter --> true infection vs. contaminant ? Blood culture drawn 09/13/16 from the HD catheter is positive 05/08 set for S. hominis. Blood culture drawn 09/13/16 from a peripheral stick at the same time is negative. Additional blood cultures drawn 09/14/16 (from the TDC) are negative. Additional blood cultures drawn 09/16/16 (peripheral) are negative x 2 sets. Additional blood cultures drawn 09/18/16 (1 peripheral and 1 PICC) are NGTD as well. TDC was removed 09/15/16. Tip culture was negative. No further treatment indicated. (6) HCAP (healthcare-associated pneumonia) Current Visit: Yes Status: Acute Appears worse on imaging. The patient has increasing O2 requirements. Causative organism unclear. CXR completed on admission revealed bilateral perihilar infiltrates. Repeat CXR completed 09/13/16 showed bibasilar atelectasis with pleural effusion. CT of the chest completed 09/13/16 showed bibasilar airspace disease with multiple small nodular lesions in the right lung with at least 1 cavitary nodule concerning for septic emboli. Patient previous treated with 8 days of IV Cefepime. CT of the abdomen and pelvis completed 09/19/16 shows increase in size of nodular densitites within the right middle lobe with interval development of nodular densities with the right lower lobe most consistent with pneumonia. Basilar opacities in the bilateral lung bases with air bronchograms are also present, likely representing atelectasis, but superimposed PNA cannot be ruled out. Discussed with radiologist who states that pulmonary nodules are worse since last CT scan. Pulmonology notes reviewed. Input appreciated. Swallow study negative for aspiration. Get sputum specimen if patient is able to provide adequate specimen. May need to get an induced sputum. Continue Meropenem 500mg IV Q24H, dosed for HD. Give after HD on dialysis days. Duration of treatment depends on the clinical picture. Monitor renal function and dose-adjust antibiotics. (7) Cavitary lesion of lung Current Visit: Yes Status: Acute CT of the chest completed 09/13/16 showed bilateral lower lobe airspace disease with multiple nodular lesions in the right lung with at least 1 cavitary lesion concerning for septic emboli. Based on the patient's recent bacteremia, septic emboli is a possibility. Continue antibiotics as above. (8) Mass of psoas muscle Current Visit: Yes Status: Acute CT of the abdomen and pelvis completed 09/15/16 showed a hyperdense collection in the right psoas muscle suspicious for hematoma vs. phlegmon vs. mass. Etiology not entirely clear.--> ? source of bacteremia RP UTS unyielding. Repeat CT of the abdomen and pelvis 09/19/16 shows re-demonstration of the mass in the right psoas muscle, unchanged from previous CT. Discussed with radiologist --> most likely hematoma based on CT findings. (9) Acute kidney injury superimposed on CKD Current Visit: Yes Status: Acute The patient has required INTELLECTUAL PROPERTY MANAGER with the placement of a temporary dialysis catheter. Nephrology consulted and following. ELLE improved today after HD the past two day. Dose-adjust antibiotics for HD and avoid nephrotoxins as able. (10) Acute and chronic respiratory failure Current Visit: No Status: Chronic Likely multifactorial--> PNA, fluid overload, septic emboli, COPD. Appears improved, but still requires BIPAP at night. She has had increasing O2 demands over the last 24 hours. Lasix has been re-started per the nephrology team. Continue supportive care per the primary team. Qualifiers: Respiratory failure complication: unspecified whether with hypoxia or hypercapnia Qualified Code(s): J96.20 - Acute and chronic respiratory failure , unspecified whether with hypoxia or hypercapnia (11) GIB (gastrointestinal bleeding) Current Visit: Yes Status: Acute Status post colonoscopy 08/31/[address] Escobedo which revealed seven colonic angioectasias. Right hemicolectomy recommended. Status post extended right hemicolectomy 09/05/[address] Moy. Operative report reviewed. Hgb down to 7.4 09/14/16. Received 2 units of PRBCs and hemoglobin only came up to 8.5 09/15/16. Hgb stable around 8. Repeat FOBT was positive. Management per the general surgery and GI teams. Qualifiers: GI bleed type/associated pathology: unspecified gastrointestinal hemorrhage type Qualified Code(s): K92.2 - Gastrointestinal hemorrhage, unspecified (12) Status post right hemicolectomy Current Visit: Yes Status: Acute POD #16. Status post extended right hemicolectomy with extensive KACY 09/06/[address] Moy. Complaining of abdominal pain this morning, but CT of the abdomen and pelvis does not show anything new. PO intake has been poor. Calorie counts have been initiated. TPN discontinued. Further management per the surgery team. (13) Acute exacerbation of chronic obstructive airways disease Current Visit: Yes Status: Acute (14) Anemia Current Visit: Yes Status: Chronic Likely secondary to GI bleed. Hgb stable at 8.0 this morning. Management per the primary and surgery teams. Qualifiers: Anemia type: iron deficiency Iron deficiency anemia type: unspecified iron deficiency Qualified Code(s): D50.9 - Iron deficiency anemia, unspecified (15) Atrial fibrillation with RVR Current Visit: Yes Status: Acute Rate appears relatively well-controlled. Management per the primary team. (16) Leukocytosis Current Visit: Yes Status: Resolved The patient had a WBC of 16 post-op--? reactive vs. infectious etiology. Resolved. Qualifiers: Leukocytosis type: unspecified Qualified Code(s): D72.829 - Elevated white blood cell count, unspecified (17) CHF (congestive heart failure) Current Visit: Yes Status: Chronic Qualifiers: Congestive heart failure type: diastolic Congestive heart failure chronicity: chronic Qualified Code(s): I50.32 - Chronic diastolic (congestive ) heart failure (18) CKD (chronic kidney disease) stage 4, GFR 15-29 ml/min Current Visit: Yes Status: Chronic (19) Diabetes mellitus Current Visit: Yes Status: Chronic Qualifiers: Diabetes mellitus type: type 2 Diabetes mellitus complication status: with kidney complications Diabetes mellitus complication detail: with chronic kidney disease 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 Improved. Continue Nystatin swish and swallow. - Subjective Interval history: Patient seen and examined. No acute events noted overnight. Patient states she feels better today and is more alert. She denies any fevers or chills, but has documented Tmax of 100.8 yesterday. Patient complains of abdominal pain at the site of her incision and gas. Denies chest pain, shortness of breath, or cough. Patient states she was able to eat most of her dinner yesterday, but only had a few bites of breakfast. Patient has had diarrhea and rectal tube was placed due to skin breakdown. States she is passing gas. Denies pain in her back or any extremities. Infect Dis PN-Objective Data - Labs CBC & Chem 7: 09/22/16 03:50 09/22/16 08:50 Labs: Laboratory Results - last 24 hr 09/20/16 09/20/16 09/20/16 03:06 07:14 13:44 WBC RBC Hgb Hct MCV MCH MCHC RDW Plt Count MPV Seg Neutrophils % Band Neutrophils % Lymphocytes % Monocytes % Eosinophils % Basophils % Neutrophils # Lymphocytes # Monocytes # Eosinophils # Basophils # Platelet Estimate Immature Plt Fraction Hypochromasia Sodium Potassium Chloride Carbon Dioxide BUN Creatinine Est GFR ( Amer) Est GFR (Non-Af Amer) BUN/Creatinine Ratio Glucose POC Glucose 100 H 178 H 164 H Calculated Osmolality Calcium Magnesium Creatine Kinase 09/20/16 09/20/16 09/20/16 15:20 17:26 21:07 WBC RBC Hgb Hct MCV MCH MCHC RDW Plt Count MPV Seg Neutrophils % Band Neutrophils % Lymphocytes % Monocytes % Eosinophils % Basophils % Neutrophils # Lymphocytes # Monocytes # Eosinophils # Basophils # Platelet Estimate Immature Plt Fraction Hypochromasia Sodium Potassium Chloride Carbon Dioxide BUN Creatinine Est GFR ( Amer) Est GFR (Non-Af Amer) BUN/Creatinine Ratio Glucose POC Glucose 287 H 295 H Calculated Osmolality Calcium Magnesium Creatine Kinase 12 L 09/21/16 09/21/16 09/21/16 00:42 03:49 03:50 WBC 2.8 L RBC 2.79 L Hgb 8.0 L Hct 25.0 L MCV 89.6 MCH 28.7 MCHC 32.0 RDW 15.7 H Plt Count 59 L MPV 11.3 Seg Neutrophils % 62.0 Band Neutrophils % 22.0 H Lymphocytes % 6.0 Monocytes % 4.0 Eosinophils % 4.0 Basophils % 2.0 Neutrophils # 2.4 Lymphocytes # 0.2 L Monocytes # 0.1 Eosinophils # 0.1 Basophils # 0.1 Platelet Estimate Decreased L Immature Plt Fraction 7.1 H Hypochromasia Present A Sodium Potassium Chloride Carbon Dioxide BUN Creatinine Est GFR ( Amer) Est GFR (Non-Af Amer) BUN/Creatinine Ratio Glucose POC Glucose 231 H 75 Calculated Osmolality Calcium Magnesium Creatine Kinase 09/21/16 03:50 WBC RBC Hgb Hct MCV MCH MCHC RDW Plt Count MPV Seg Neutrophils % Band Neutrophils % Lymphocytes % Monocytes % Eosinophils % Basophils % Neutrophils # Lymphocytes # Monocytes # Eosinophils # Basophils # Platelet Estimate Immature Plt Fraction Hypochromasia Sodium 138 D Potassium 3.7 Chloride 101 Carbon Dioxide 27 BUN 22 H D Creatinine 1.75 H Est GFR ( Amer) 34 L Est GFR (Non-Af Amer) 28 L BUN/Creatinine Ratio 13 Glucose 69 L POC Glucose Calculated Osmolality 288 Calcium 8.2 L Magnesium 1.9 Creatine Kinase Cultures: Cultures 09/16/16 11:52 Blood Culture - Final Peripheral Venipuncture No growth. 09/16/16 11:45 Blood Culture - Final Peripheral Venipuncture No growth. 09/14/16 15:39 Blood Culture - Final Central Venous Catheter No growth. 09/14/16 15:39 Blood Culture - Final Central Venous Catheter No growth. 09/18/16 21:30 Blood Culture - Preliminary Peripheral Venipuncture No growth. 09/18/16 21:25 Blood Culture - Preliminary Peripheral Central Cath, Picc No growth. 09/18/16 18:20 Urine Culture - Final Urine,Clean Catch No growth. 09/13/16 15:40 Blood Culture - Final Central Venous Catheter Staphylococcus hominis 09/13/16 15:08 Blood Culture - Final Peripheral Venipuncture No growth. 09/15/16 16:25 Catheter Tip Culture - Final Intravenous or Arterial Cath No growth. 09/11/16 04:19 Blood Culture - Final Peripheral Venipuncture No growth. 09/11/16 04:15 Blood Culture - Final Peripheral Venipuncture No growth. 09/13/16 13:00 Urine Culture - Final Urine,Clean Catch No growth. 09/08/16 08:04 Blood Culture - Final Peripheral Venipuncture Vanc. Resistant Enterococcus Serology 09/18/16 09/18/16 09/14/16 Range/Units 18:20 14:20 16:11 Urine Color Yellow (Yellow) Urine Clarity Clear (Clear) Urine pH 6.0 (5.0-8.0) pH Units Ur Specific [place] 1.012 (1.010-1.025) Urine Protein 30 H (Neg-Trace) mg/dL Urine Glucose (UA) 250 H (Normal) mg/dL Urine Ketones Negative (Negative) mg/dL Urine Blood Small H (Negative) Urine Nitrite Negative (Negative) Urine Bilirubin Negative (Negative) Urine Urobilinogen Normal (Normal) mg/dL Ur Leukocyte Esterase Trace H (Negative) Urine Microscopic RBC 5-15 H (0-3) per hpf Urine Microscopic WBC 5-15 H (0-3) per hpf Ur Squamous Epith Cells Many H (None-Few) per lpf Urine Bacteria None Seen (None-Few) per hpf Hyaline Casts None Seen (None-Few) per lpf Urine Yeast Many H (None Seen) per hpf Ur Culture Indicated? YES A (NO) Stool Occult Blood Positive A (Negative) Stl C. diff Tox B Gene Negative (Negative) A. baumannii (PCR) (Not Detect) Polly albicans (PCR) (Not Detect) C. glabrata (PCR) (Not Detect) C. krusei (PCR) (Not Detect) C. parapsilosis (PCR) (Not Detect) C. tropicalis (PCR) (Not Detect) Enterobacteriac sp PCR (Not Detect) E. cloacae complex PCR (Not Detect) Enterococcus sp PCR (Not Detect) E. coli (PCR) (Not Detect) H. influenzae (PCR) (Not Detect) Hep Bs Antigen (Nonreactive) Hep Bs Antibody mIU/mL Klebsiella oxytoca PCR (Not Detect) Klebsiella pneumoniae (Not Detect) List. monocytogenes PCR (Not Detect) N. meningitidis (PCR) (Not Detect) Proteus species (PCR) (Not Detect) Serratia marcescens PCR (Not Detect) Staphylococcus sp PCR (Not Detect) Staph aureus (PCR) (Not Detect) mecA-Methicil Res Gene (Not Detect) Streptococcus sp PCR (Not Detect) Group A Strep DNA (Not Detect) Group B Strep (PCR) (Not Detect) Strep pneumoniae (PCR) (Not Detect) P. aeruginosa (PCR) (Not Detect) Minerva/B-Vanco Res Genes (Not Detect) KPC (blaKPC) Detect PCR (Not Detect) 09/13/16 09/13/16 09/08/16 Range/Units 15:40 13:00 08:04 Urine Color Yellow (Yellow) Urine Clarity Cloudy A (Clear) Urine pH 6.0 (5.0-8.0) pH Units Ur Specific [place] 1.012 (1.010-1.025) Urine Protein 100 H (Neg-Trace) mg/dL Urine Glucose (UA) Normal (Normal) mg/dL Urine Ketones Negative (Negative) mg/dL Urine Blood Small H (Negative) Urine Nitrite Negative (Negative) Urine Bilirubin Negative (Negative) Urine Urobilinogen Normal (Normal) mg/dL Ur Leukocyte Esterase Small H (Negative) Urine Microscopic RBC 0-3 (0-3) per hpf Urine Microscopic WBC 15-30 H (0-3) per hpf Ur Squamous Epith Cells Many H (None-Few) per lpf Urine Bacteria None Seen (None-Few) per hpf Hyaline Casts None Seen (None-Few) per lpf Urine Yeast Many H (None Seen) per hpf Ur Culture Indicated? YES A (NO) Stool Occult Blood (Negative) Stl C. diff Tox B Gene (Negative) A. baumannii (PCR) Not Detected Not Detected (Not Detect) Polly albicans (PCR) Not Detected Not Detected (Not Detect) C. glabrata (PCR) Not Detected Not Detected (Not Detect) C. krusei (PCR) Not Detected Not Detected (Not Detect) C. parapsilosis (PCR) Not Detected Not Detected (Not Detect) C. tropicalis (PCR) Not Detected Not Detected (Not Detect) Enterobacteriac sp PCR Not Detected Not Detected (Not Detect) E. cloacae complex PCR Not Detected Not Detected (Not Detect) Enterococcus sp PCR Not Detected DETECTED A (Not Detect) E. coli (PCR) Not Detected Not Detected (Not Detect) H. influenzae (PCR) Not Detected Not Detected (Not Detect) Hep Bs Antigen (Nonreactive) Hep Bs Antibody mIU/mL Klebsiella oxytoca PCR Not Detected Not Detected (Not Detect) Klebsiella pneumoniae Not Detected Not Detected (Not Detect) List. monocytogenes PCR Not Detected Not Detected (Not Detect) N. meningitidis (PCR) Not Detected Not Detected (Not Detect) Proteus species (PCR) Not Detected Not Detected (Not Detect) Serratia marcescens PCR Not Detected Not Detected (Not Detect) Staphylococcus sp PCR DETECTED A Not Detected (Not Detect) Staph aureus (PCR) Not Detected Not Detected (Not Detect) mecA-Methicil Res Gene DETECTED A N/A (Not Detect) Streptococcus sp PCR Not Detected Not Detected (Not Detect) Group A Strep DNA Not Detected Not Detected (Not Detect) Group B Strep (PCR) Not Detected Not Detected (Not Detect) Strep pneumoniae (PCR) Not Detected Not Detected (Not Detect) P. aeruginosa (PCR) Not Detected Not Detected (Not Detect) Minerva/B-Vanco Res Genes N/A DETECTED A (Not Detect) KPC (blaKPC) Detect PCR N/A N/A (Not Detect) 09/07/16 Range/Units 13:42 Urine Color (Yellow) Urine Clarity (Clear) Urine pH (5.0-8.0) pH Units Ur Specific [place] (1.010-1.025) Urine Protein (Neg-Trace) mg/dL Urine Glucose (UA) (Normal) mg/dL Urine Ketones (Negative) mg/dL Urine Blood (Negative) Urine Nitrite (Negative) Urine Bilirubin (Negative) Urine Urobilinogen (Normal) mg/dL Ur Leukocyte Esterase (Negative) Urine Microscopic RBC (0-3) per hpf Urine Microscopic WBC (0-3) per hpf Ur Squamous Epith Cells (None-Few) per lpf Urine Bacteria (None-Few) per hpf Hyaline Casts (None-Few) per lpf Urine Yeast (None Seen) per hpf Ur Culture Indicated? (NO) Stool Occult Blood (Negative) Stl C. diff Tox B Gene (Negative) A. baumannii (PCR) (Not Detect) Polly albicans (PCR) (Not Detect) C. glabrata (PCR) (Not Detect) C. krusei (PCR) (Not Detect) C. parapsilosis (PCR) (Not Detect) C. tropicalis (PCR) (Not Detect) Enterobacteriac sp PCR (Not Detect) E. cloacae complex PCR (Not Detect) Enterococcus sp PCR (Not Detect) E. coli (PCR) (Not Detect) H. influenzae (PCR) (Not Detect) Hep Bs Antigen Nonreactive (Nonreactive) Hep Bs Antibody 3.83 mIU/mL Klebsiella oxytoca PCR (Not Detect) Klebsiella pneumoniae (Not Detect) List. monocytogenes PCR (Not Detect) N. meningitidis (PCR) (Not Detect) Proteus species (PCR) (Not Detect) Serratia marcescens PCR (Not Detect) Staphylococcus sp PCR (Not Detect) Staph aureus (PCR) (Not Detect) mecA-Methicil Res Gene (Not Detect) Streptococcus sp PCR (Not Detect) Group A Strep DNA (Not Detect) Group B Strep (PCR) (Not Detect) Strep pneumoniae (PCR) (Not Detect) P. aeruginosa (PCR) (Not Detect) Minerva/B-Vanco Res Genes (Not Detect) KPC (blaKPC) Detect PCR (Not Detect) - Impressions Impressions Chest CT 09/20/16 15:25 IMPRESSION: 1. Overall worsening of ill-defined bilateral nodular infiltrates, primarily in the right upper lobe. These are likely infectious or inflammatory in etiology. Again, septic emboli are a consideration. 2. Stable bibasilar lung consolidations, due to either atelectasis and/or pneumonia. 3. Evidence of pulmonary artery hypertension. D/ / Antonio Whelan MD / Antonio Whelan MD Interpreting Provider: Antonio Whelan MD Exam - Constitutional Vitals: Temp Pulse Resp BP Pulse Ox 100.4 F H 109 18 141/76 91 09/21/16 11:41 09/21/16 12:17 09/21/16 11:41 09/21/16 11:41 09/21/16 11:41 General appearance: average body habitus, cooperative, no acute distress - Head Head exam: Present: atraumatic, normal inspection, normocephalic - Eye Eye exam: Present: EOMI, normal appearance, PERRL Pupils: Present: normal accommodation Additional comments: No subconjunctival hemorrhage noted. - ENT ENT exam: Present: mucous membranes moist - Neck Neck exam: Present: normal inspection Additional comments: TDC noted to the right neck with transparent dressing C/D/I. - Respiratory Respiratory exam: Present: rales (Bilateral bases), rhonchi (Throughout). Absent: respiratory distress, wheezes - Cardiovascular Cardiovascular exam: Present: irregular rhythm. Absent: tachycardia - GI/Abdominal GI/Abdominal exam: Present: normal bowel sounds, soft, tenderness (diffuse). Absent: distended Additional comments: Midline abdominal incision with dressing C/D/I. Watkins catheter noted to be draining clear yellow urine. - Rectal Additional comments: Rectal tube in place with liquid brown stool. - Extremities Exam Extremities exam: Present: normal inspection. Absent: joint swelling, pedal edema, tenderness Additional comments: No endocarditis stigmata noted. - Neurological Exam Neurological exam: Present: alert, oriented X3, no focal deficits - Psychiatric Psychiatric exam: Present: normal affect, normal mood - Skin Skin exam: Present: dry, intact, normal color, warm - VTE Documentation of Mechanical Device: Intermittent pneumatic compression device Consult Discharge Plan - Plan Referrals: Edith Peña CNP [Advanced Practice Nurse] - 09/26/16 10:15 am Kj Yost MD [Partnered Physician] - Therese Garcia CNP [Primary Care Provider] - () Prudence Escobedo MD [Partnered Physician] - 10/11/16 3:50 pm () - Attending Attestation I examined this patient and my medical decision-making was reviewed with the RUG HOOKER/PA/Advanced Practice Nurse/Resident Physician. I agree with the documented findings, disposition and treatment plan as described except to the extent set forth below. Patient seems to be slightly better. The examined there. I had a long discussion with the radiologist [address] abdomen pelvis discussed the psoas lesion and discussed the nodules to apparently have increased in size significantly over the last 4-[address]. I am very concerned that there is an infectious or noninfectious etiology in the lungs that is not improving on the current medication regimen. We did make changes to the IV antibiotics. I called the pulmonary critical care on the case and discussed at length. I was hoping we can get a bronchoscopy done to see what this nodules are but he said she is high risk and he is not recommending a bronchoscopy right now. He said this patient does not improve in 24-48 hours he will consider bronchoscopy. I had long discussion with the family and the daughter. I discussed that she's been on Zyvox for 10 days and she's becoming pancytopenic it. I said usually can do Zyvox for more than 2 weeks the only other option that would penetrate the lungs would be Tygacil. Tygacil is bacteriostatic I explained that to her and has a lot of adverse reaction profile including significant nausea and vomiting. Family is aware and they're aware of the complexity of the situation.
[2016-09-21] MEDS: Ondansetron 4 MG/2 ML VIAL IVP PRN (15:18)
[2016-09-21] MEDS: Zinc Oxide 454 GM EACH TP PRN (15:19)
[2016-09-21] MEDS: 3% Sodium Chloride Inhalation 4 ML VIAL.NEB IH SCH ×3 (16:16→20:09)
[2016-09-21] MEDS: Meropenem 500 MG in 0.9 % Sodium Chloride Mini Bag 100 ML IVPB SCH (16:36)
[2016-09-21] MEDS: *HR* LORazepam 0.5 MG TABLET PO PRN (17:21)
[2016-09-21] MEDS: *HR* OxyCODONE Immed Rel 5 MG TABLET PO PRN (19:47)
[2016-09-21] MEDS ORDERED: Perflutren Lipid Microsphere 1.3 ML in 0.9 % Sodium Chloride 8.7 ML IVP ONE (21:37)
[2016-09-22] MEDS: Zinc Oxide 454 GM EACH TP PRN ×2 (00:16→17:58)
[2016-09-22] MEDS: Ipratropium/Albuterol Neb 3 ML IH SCH ×6 (04:14→23:13)
[2016-09-22 04:39] LABS: Eosinophils % 1.6 %; Hemoglobin 7.6 g/dL (11.5-15.4); Segmented Neutrophils % 77.1 %
[2016-09-22 04:41] LABS: Basophils % 0.3 %; Eosinophils # 0.1 K/mcL (0.0-0.6); Hematocrit 24.3 % (35.3-44.9); Immature Granulocytes % 2.5 % (0-4); Immature Platelets 6.7 % (1.1-6.1); Lymphocytes # 0.4 K/mcL (0.6-4.6); Lymphocytes % 13.2 %; Mean Corpuscular HGB Conc 31.3 g/dL (31.6-35.5); Mean Corpuscular Hemoglobin 27.8 pg (28.0-33.3); Mean Platelet Volume 11.2 fL (9.4-12.4); Monocytes # 0.2 K/mcL (0.0-1.3); Monocytes % 5.3 %; Neutrophils # 2.5 K/mcL (1.6-8.9); Red Blood Count 2.73 M/mcL (3.82-4.97); Red Cell Distribution Width 15.6 % (11.5-14.5)
[2016-09-22 06:00] LABS: Platelet Count 52 K/mcL (140-400)
[2016-09-22 06:01] LABS: Hypochromasia Present (Not Present); Platelet Estimate Decreased (Normal)
[2016-09-22] MEDS: Nystatin SUSP 5 ML UD.LIQ PO SCH ×4 (08:35→21:59)
[2016-09-22] MEDS: Furosemide 40 MG TABLET PO SCH (08:36)
[2016-09-22] MEDS: predniSONE 5 MG TABLET PO SCH (08:36)
[2016-09-22] MEDS: Insulin LISPRO 300 UNITS/3 ML VIAL SQ SCH ×4 (08:36→22:01)
--- NOTE | 2016-09-22 08:59 | Pulmonology Progress Note ---
Date of Encounter: 09/22/16 Time of Encounter: 08:49 Assessment and Plan (1) Lung nodules Current Visit: Yes Status: Acute I have discussed this complex patient at length with the infectious disease service and we are both in agreement that worrisome findings of worsening bilateral pulmonary nodules some with cavitation of unclear etiology but I suspect still related to septic emboli in the context of enterococcal bacteremia given radiographic distribution and clinical background. Antimicrobials have been recently changed and over last 24 hours from laboratory data there has been some improvement in overall condition and this appears to be consistent with clinical improvement. The possibility that this represents a more atypical infection is possible but not felt to be probable. For concern of possible nontuberculous mycobacterium infection, fungal infection (invasive aspergillus/histoplasma), cryptococcal infection several microbiological/serological studies were ordered. In fact patient was sent for inducible sputum 3 for acid-fast bacilli and I called the micro-lab to make sure that those samples were received. I also send a sputum culture with deep tracheal suctioning for fungal culture. The patient remains high risk to undergo endoscopic procedure and in speaking with the family today they felt that they wanted this to be "last resort" plan would be to wait for this round of microbiological data to result if no answers and clinically non improvement/declines I believe bronchoscopy would be quite necessary. I am appreciative of the excellent ongoing care of this patient by the primary internal medicine service as well as antimicrobial selection by the infectious disease service. From a standpoint of COPD patient has schedule bronchodilators. I do not feel that enteral steroids are necessary would favor stopping (if not done already). Pulmonary we will continue to follow (2) Acute exacerbation of chronic obstructive airways disease Current Visit: Yes Status: Acute (3) Pneumonia Current Visit: No Status: Acute Qualifiers: Pneumonia type: due to unspecified organism Laterality: bilateral Lung location: unspecified part of lung Qualified Code(s): J18.9 - Pneumonia, unspecified organism (4) CHF (congestive heart failure) Current Visit: Yes Status: Chronic Qualifiers: Congestive heart failure type: diastolic Congestive heart failure chronicity: chronic Qualified Code(s): I50.32 - Chronic diastolic (congestive ) heart failure Subjective Principal diagnosis: ELLE on CKD, COPD, PAF Interval history: Patient is much more comfortable-appearing today than when I visited with her on Monday. She is joined again by her faithful daughter at bedside. Per patient's admission and she says she is actually feeling better than she has in a few days and breathing is less labored. She has been afebrile over the last 24 hours heart rate is been more favorably controlled. Objective PUL Vital signs: Last Vital Signs Temp 99.4 F 09/22/16 07:51 Pulse 93 09/22/16 07:51 Resp 18 09/22/16 08:38 BP 126/56 09/22/16 07:51 Pulse Ox 94 09/22/16 08:38 General appearance: no acute distress Eyes: nonicteric Auscultation: bilateral: diminished breath sounds, rales, rhonchi Cardiovascular: irregular rhythm Gastrointestinal: soft, non-tender non-focal exam mood appropriate Results - Laboratory Findings CBC and BMP: 09/22/16 03:50 09/21/16 03:50 ABG ABG pH 7.39 pH Units (7.32-7.45) 09/13/16 21:19 ABG pCO2 45 mmHg (35-45) 09/13/16 21:19 ABG pO2 79 mmHg (85-104) L 09/13/16 21:19 ABG O2 Saturation 95 % (95-98) 09/13/16 21:19 PT/INR, D-dimer PT 11.1 Seconds (9.4-12.1) 09/18/16 04:38 Abnormal lab findings: Abnormal lab results WBC 3.2 K/mcL (4.3-11.1) L 09/22/16 03:50 RBC 2.73 M/mcL (3.82-4.97) L 09/22/16 03:50 Hgb 7.6 g/dL (11.5-15.4) L 09/22/16 03:50 Hct 24.3 % (35.3-44.9) L 09/22/16 03:50 MCH 27.8 pg (28.0-33.3) L 09/22/16 03:50 MCHC 31.3 g/dL (31.6-35.5) L 09/22/16 03:50 RDW 15.6 % (11.5-14.5) H 09/22/16 03:50 Plt Count 52 K/mcL (140-400) L 09/22/16 03:50 Band Neutrophils % 22.0 % (0-4) H 09/21/16 03:50 Lymphocytes # 0.4 K/mcL (0.6-4.6) L 09/22/16 03:50 Nucleated RBCs/100 WBC 0.5 /100 WBC (0) H 09/13/16 04:25 Toxic Granulation Present (Not Present) A 09/18/16 04:38 Platelet Estimate Decreased (Normal) L 09/22/16 03:50 Large Platelets Present (Not Present) A 09/19/16 04:54 Immature Plt Fraction 6.7 % (1.1-6.1) H 09/22/16 03:50 Polychromasia 1+ (Not Present) A 09/16/16 03:10 Hypochromasia Present (Not Present) A 09/22/16 03:50 Basophilic Stippling 2+ (Not Present) A 09/14/16 03:00 Anisocytosis 1+ (Not Present) A 09/16/16 03:10 APTT 60.5 Seconds (26.0-36.0) H D 09/14/16 18:20 Heparin Anti-Xa, Unfract 1.06 IU/mL (0.30-0.70) H* 09/14/16 03:00 ABG pO2 79 mmHg (85-104) L 09/13/16 21:19 ABG HCO3 27.2 mEQ/L (21-27) H 09/13/16 21:19 ABG Total CO2 28.6 mEq/L (20-26) H 09/13/16 21:19 BUN 22 mg/dL (7-20) H D 09/21/16 03:50 Creatinine 1.75 mg/dL (0.57-1.11) H 09/21/16 03:50 Est GFR ( Amer) 34 (> 60) L 09/21/16 03:50 Est GFR (Non-Af Amer) 28 (> 60) L 09/21/16 03:50 Glucose 69 mg/dL (70-99) L 09/21/16 03:50 POC Glucose 255 (58-89) H 09/21/16 20:33 Uric Acid 10.4 mg/dL (2.6-6.0) H 08/25/16 12:10 Calcium 8.2 mg/dL (8.6-10.8) L 09/21/16 03:50 Creatine Kinase 12 Units/L (29-168) L 09/20/16 15:20 Troponin I 0.25 ng/mL (0-0.03) H* 09/08/16 11:50 B-Natriuretic Peptide 241 pg/mL (0-100) H 09/17/16 04:00 Albumin 2.5 g/dL (3.5-5.0) L 08/28/16 04:47 TSH 0.028 mcIU/mL (0.350-4.840) L 08/25/16 16:51 Urine Protein 30 mg/dL (Neg-Trace) H 09/18/16 18:20 Urine Glucose (UA) 250 mg/dL (Normal) H 09/18/16 18:20 Urine Blood Small (Negative) H 09/18/16 18:20 Ur Leukocyte Esterase Trace (Negative) H 09/18/16 18:20 Urine Microscopic RBC 5-15 per hpf (0-3) H 09/18/16 18:20 Urine Microscopic WBC 5-15 per hpf (0-3) H 09/18/16 18:20 Ur Squamous Epith Cells Many per lpf (None-Few) H 09/18/16 18:20 Urine Yeast Many per hpf (None Seen) H 09/18/16 18:20 Ur Culture Indicated? YES (NO) A 09/18/16 18:20 Protein/Creatinin Ratio 0.42 mg/mg (0-0.20) H 08/24/16 14:18 Urine Total Protein 22 mg/dL (1-14) H 08/24/16 14:18 Stool Occult Blood Positive (Negative) A 09/14/16 16:11 Staphylococcus sp PCR DETECTED (Not Detect) A 09/13/16 15:40 mecA-Methicil Res Gene DETECTED (Not Detect) A 09/13/16 15:40 - Microbiology Findings Microbiology Findings: Microbiology, Last 48 Hours 09/16/16 11:52 Blood Culture - Final Peripheral Venipuncture No growth. 09/16/16 11:45 Blood Culture - Final Peripheral Venipuncture No growth. 09/14/16 15:39 Blood Culture - Final Central Venous Catheter No growth. 09/14/16 15:39 Blood Culture - Final Central Venous Catheter No growth. 09/18/16 21:30 Blood Culture - Preliminary Peripheral Venipuncture No growth. 09/18/16 21:25 Blood Culture - Preliminary Peripheral Central Cath, Picc No growth. - Clinical Findings Intake & Output: Intake & Output 09/21/16 09/22/16 09/22/16 23:59 07:59 15:59 Intake Total 100 / 100 Balance 100 / 100 Weight 90.7 kg - VTE Documentation of Mechanical Device: Intermittent pneumatic compression device Consult Discharge Plan - Plan Referrals: Edith Peña CNP [Advanced Practice Nurse] - 09/26/16 10:15 am Kj Yost MD [Partnered Physician] - Therese Garcia CNP [Primary Care Provider] - () Prudence Escobedo MD [Partnered Physician] - 10/11/16 3:50 pm ()
--- NOTE | 2016-09-22 09:04 | General Surgery Progress Note ---
Date of Encounter: 09/22/16 Time of Encounter: 09:02 - Assessment and Plan (1) Angiodysplasia of colon Current Visit: Yes Status: Acute POD #16 Extended right hemicolectomy. Lysis of adhesions times [address] Moy 09/13 positive blood cultures growing gram-positive cocci CT scan of the chest also shows possible septic emboli. Abdominal CT shows an elongated hyperdense collection within the right psoas muscle. US right flank unremarkable Incision is clean and dry. Patient is having BMs, bowel sounds present. Patient has been advanced to mechanically altered diet, she is tolerating it and ate all of her mashed potatoes, gravy and milkshake. Patient's daughter states she does complain of abdominal pain after eating. The patient faces nutritional challenges, will continue with calorie counts. She may require PEG tube to augment her nutrition Plan: -Continue to encourage oral intake -Encourage incentive spirometry when up. -Advance diet as tolerated -Maintain Watkins catheter for strict I and O's -Daily dressing change -PPI therapy daily (2) Acute and chronic respiratory failure ([id number]) Current Visit: Yes Status: Acute IS every 1 hour while awake Aggressive pulmonary toilet Continue aerosol treatments as ordered Wean oxygen as tolerated Management per medicine service Qualifiers: Respiratory failure complication: hypoxia Qualified Code(s): J96.21 - Acute and chronic respiratory failure with hypoxia (3) Acute kidney injury superimposed on CKD Current Visit: Yes Status: Acute Plan: -IV fluids -Avoid nephrotoxic medications -Continue Watkins catheter for strict I's and O's -Nephrology following- hemodialysis (4) Insulin dependent type 2 diabetes mellitus Current Visit: Yes Status: Chronic Continue to manage per medicine team (5) DVT prophylaxis Current Visit: No Status: Acute Continue EPCDs to bilateral lower extremities for DVT prophylaxis Continue heparin 5,000 units SQ twice daily for DVT prophylaxis Subjective Patient reports: still having pain Narrative: Patient was seen and examined. Her daughter states that she had difficulty sleeping last night secondary to not wanting to wear the BiPAP mask. She is able to eat a mechanical soft diet, she ate all of her mashed potatoes and gravy and all of her milkshake. She does not like the way that the meat is served and so she does not want that. She does complain of abdominal pain after eating. Sometimes have improved slightly. Objective Vital Signs - Last 8 Hours Temp Pulse Resp BP Pulse Ox 09/22/16 08:38 18 94 09/22/16 07:51 99.4 F 93 18 126/56 91 09/22/16 04:16 16 92 09/22/16 03:49 98.3 F 95 18 131/76 92 Intake and Output 09/21/16 09/22/16 09/22/16 23:59 07:59 15:59 Intake Total 100 / 100 Balance 100 / 100 Intake: IV Fluids 100 / 100 Merrem 500 MG In 0.9 % 100 / 100 Sodium Chloride (Mini-Bag +) 100 ML @ 200 mls/hr IVPB Q24H [facility] Rx#: [id number] Other: Weight 90.7 kg Blood Glucose* 255 209 Patient Weight 09/22/16 23:59 Weight 90.7 kg - General physical appearance no distress, moderate pain, chronically ill, obese - ENT atraumatic, normocephalic - Neck Neck exam: trachea midline - Respiratory wheezing: left, rales: left - Cardiovascular Cardiovascular exam: Present: tachycardia, irregular rhythm - Abdomen Abdomen: Present: bowel sounds present, soft, non tender - Incision Incision: Present: clean and dry - Labs 09/22/16 03:50 09/22/16 08:50 - VTE Documentation of Mechanical Device: Intermittent pneumatic compression device Consult Discharge Plan - Plan Referrals: Edith Peña CNP [Advanced Practice Nurse] - 09/26/16 10:15 am Kj Yost MD [Partnered Physician] - Therese Garcia CNP [Primary Care Provider] - () Prudence Escobedo MD [Partnered Physician] - 10/11/16 3:50 pm () - Attending Attestation I examined this patient and my medical decision-making was reviewed with the MACHINE FEEDER FLOORPERSON/PA/Advanced Practice Nurse/Resident Physician. I agree with the documented findings, disposition and treatment plan as described except to the extent set forth below. The patient was seen and evaluated. Possibility of septic emboli are very concerning. We will follow along closely. Bowel function is intact. Sukumar Moy MD FACS
--- NOTE | 2016-09-22 09:13 | Nephrology Progress Note ---
Date of Encounter: 09/22/16 Time of Encounter: 09:10 - Assessment and Plan (1) Acute kidney injury superimposed on CKD Current Visit: Yes Status: Acute No HD yesterday Waiting on BMP results Decreased UOP Avoid nephrotoxins if possible (2) CKD (chronic kidney disease) stage 4, GFR 15-29 ml/min Current Visit: Yes Status: Chronic Baseline GFR low 20s Unknown yet if kidneys will recover from this ELLE Avoid nephrotoxins (3) Acute exacerbation of chronic obstructive airways disease Current Visit: Yes Status: Acute per primary team (4) Anemia Current Visit: Yes Status: Chronic Hgb 7.6 Transfuse per parameters per primary team Qualifiers: Anemia type: iron deficiency Iron deficiency anemia type: unspecified iron deficiency Qualified Code(s): D50.9 - Iron deficiency anemia, unspecified (5) Hypomagnesemia Current Visit: No Status: Acute Mg 1.3 Replenished this am with IV mg rider 2gm Subjective Principal diagnosis: ELLE on CKD, COPD, PAF Interval history: Patient seen and examined. Daughters at bedside; patient resting comfortably Objective - Vital Signs Vital signs: Vital Signs Temp Pulse Resp BP Pulse Ox 09/22/16 08:38 18 94 09/22/16 07:51 99.4 F 93 18 126/56 91 09/22/16 04:16 16 92 09/22/16 03:49 98.3 F 95 18 131/76 92 09/21/16 23:58 18 92 09/21/16 23:45 98.5 F 82 20 165/85 92 09/21/16 20:41 98.8 F 101 18 152/74 91 09/21/16 20:10 22 91 09/21/16 16:53 20 98 09/21/16 16:44 100.6 F H 94 20 144/81 98 09/21/16 16:38 18 93 09/21/16 16:16 18 95 09/21/16 15:00 101 09/21/16 12:17 109 09/21/16 11:41 100.4 F H 113 18 141/76 91 09/21/16 11:16 18 93 Intake and Output 09/21/16 09/22/16 09/22/16 23:59 07:59 15:59 Intake Total 100 / 100 Balance 100 / 100 Intake: IV Fluids 100 / 100 Merrem 500 MG In 0.9 % 100 / 100 Sodium Chloride (Mini-Bag +) 100 ML @ 200 mls/hr IVPB Q24H [facility] Rx#: [id number] Other: Weight 90.7 kg Blood Glucose* 255 209 Patient Weight 09/22/16 23:59 Weight 90.7 kg - General Appearance General appearance: Present: chronically ill, fatigue, frail EENT: Present: ATNC, hearing intact Neck: Present: supple Respiratory: Present: course breath sounds, rhonchi Cardiology: Present: edema, normal S1, normal S2 Dialysis Vascular Access: Venous Catheter Gastrointestinal: Present: no tenderness, no guarding Integumentary: Present: warm and dry Neurologic: Present: alert and oriented x3 Psychiatric: Present: mood/affect appropriate, cooperative - Lab 09/22/16 03:50 09/21/16 03:50 Most recent lab results ABG pH 7.39 pH Units (7.32-7.45) 09/13/16 21:19 ABG pCO2 45 mmHg (35-45) 09/13/16 21:19 ABG pO2 79 mmHg (85-104) L 09/13/16 21:19 ABG HCO3 27.2 mEQ/L (21-27) H 09/13/16 21:19 ABG O2 Saturation 95 % (95-98) 09/13/16 21:19 Calcium 8.2 mg/dL (8.6-10.8) L 09/21/16 03:50 Phosphorus 3.5 mg/dL (2.3-4.7) 09/20/16 03:11 Magnesium 1.9 mg/dL (1.6-2.6) 09/21/16 03:50 Urine Creatinine 40 mg/dL 08/25/16 13:19 Urine Sodium 30.0 mEq/L 08/25/16 13:19 Urine Total Protein 22 mg/dL (1-14) H 08/24/16 14:18 - VTE Documentation of Mechanical Device: Intermittent pneumatic compression device Consult Discharge Plan - Plan Referrals: Edith Peña CNP [Advanced Practice Nurse] - 09/26/16 10:15 am Kj Yost MD [Partnered Physician] - Therese Garcia CNP [Primary Care Provider] - () Prudence Escobedo MD [Partnered Physician] - 10/11/16 3:50 pm ()
--- NOTE | 2016-09-22 10:11 | ECHO - Doppler Report ---
Echocardiogram Name: Dorothy Parks Date of Study: 09/21/2016 Date: 1940 Ht: 65.0 in Medical Record#: [id number] Age: 76 Wt: 199.0 lb Gender: Female BSA: 1.97 Order #: [id number] Location: [facility] Room #: 2N1 Reading Physician: Clraa Saucedo DO Director Child Development Center: Barbara Marin Ordering Physician: Nelia Del Valle MD Primary Physician: Therese Garcia CNP Indications: Bacteremia Impressions: LVEF 55%. Normal left ventricular size and systolic function. There is evidence of mild diastolic dysfunction of the left ventricle. Normal right ventricular size and function. Mild mitral regurgitation. Mild tricuspid regurgitation. Mild pulmonary hypertension. No evidence for valvular vegetation on this study. Left Ventricular Wall Motion: Rest Echo Findings The mid inferior lateral and basal inferior lateral galaviz were not visualized. All other wall segments showed normal motion. Findings: Study Quality * Technically somewhat challenging. Suboptimal PLAX images. ECG Findings * Normal sinus rhythm. Left Ventricle * LVEF 55%. * Mild left ventricular diastolic dysfunction. * Normal LV size and wall thickness. Aorta * Suboptimally visualized. Right Ventricle * Normal right ventricular structure and function. Left Atrium * Normal left atrial size. Right Atrium * Normal right atrial size. Mitral Valve * Normal mitral valve structure. * No mitral stenosis. * Mild mitral regurgitation. Tricuspid Valve * Normal tricuspid valve structure. * Mild tricuspid regurgitation. * Estimated RA pressure is 3 mmHg. * Estimated RVSP is 42 mmHg. * Mild pulmonary hypertension. Aortic Valve * Aortic valve not well visualized. * Trace aortic regurgitation. * No aortic stenosis. Interatrial Septum * Interatrial septum not well evaluated. IVC * Normal IVC dimensions and inspiratory collapse. Pulmonic Valve * Pulmonic valve not well visualized. * Suboptimal Doppler signal. Pulmonary Artery * Pulmonary artery not well visualized. Pericardium * There is no pericardial effusion present. History Hypertension Diabetes Hypercholesteremia Rheumatic Fever Years 52 Packs 3 Congestive Heart Failure 09/15/2016 a Previous Echo was performed. Measurements: BP: 144/ 81 2D Normal Values RVIDd: 3.10 cm <2.7 cm IVSd: 1.00 cm 0.6 - 1.0 cm LVIDd: 5.30 cm 3.7 - 5.6 cm LVPWd: 1.30 cm 0.6 - 1.1 cm LVIDs: 4.10 cm 1.5 - 3.6 cm AO: 2.90 cm < 4.0 cm LA: 5.30 cm 2.0 - 4.0cm %FS: 22.60 cm >25 % LA volume: 59 Mitral Valve Peak E:1.16 m/sec Peak A:1.12 m/sec E/A Ratio:1 Tricuspid Valve TV Regurg Peak Grad: 39.00mmHg TV Regurg Peak Aurelio: 3.14m/sec Updated by Clara Saucedo on 09/22/2016 10:04:41 AM electronically signed on 09/22/2016 10:06:21 AM with status of Final Wall Motion Sauceda: 1=Normal, 2=Hypokinesis, 3=Akinesis, 4=Dyskinesis, 5=Aneurysmal, 6=Hyperkinetic, X=Not Visualized (Blank)=Missing
[2016-09-22 10:21] LABS: Albumin/Globulin Ratio 0.5 (1.1-2.2); Bilirubin,Total 0.5 mg/dL (0.2-1.2); Calcium 8.5 mg/dL (8.6-10.8); Globulin 3.6 g/dL (2.4-3.5); Magnesium 1.7 mg/dL (1.6-2.6); Potassium 3.7 mEq/L (3.5-4.5); Total Protein 5.3 g/dL (6.0-8.3)
[2016-09-22 10:22] LABS: Albumin 1.7 g/dL (3.5-5.0)
--- NOTE | 2016-09-22 10:24 | Infectious Disease Progress No ---
Date of Encounter: 09/22/16 Time of Encounter: 10:22 - Assessment and Plan (1) Leukopenia Current Visit: Yes Status: Acute The patient's WBC improved to 3.2 without bandemia. Etiology unclear--> infectious vs. drug-induced (Zyvox). Antibiotics switched. Continue to trend. Qualifiers: Leukopenia type: neutropenia Neutropenia type: unspecified Qualified Code (s): D70.9 - Neutropenia, unspecified (2) Thrombocytopenia Current Visit: Yes Status: Acute Etiology unclear. HIT vs. infection-related. Platelets 52 this morning. Heparin discontinued per the primary team. No signs of active bleeding noted. Consider checking HIT panel. Consider hem/onc consult. Management per the primary team. (3) Fever Current Visit: Yes Status: Acute Etiology unclear. The patient spiked a fever with a Tmax of 100.6 in the last 24 hours. Repeat blood cultures drawn 09/16/16 and 09/18/16 are negative and NGTD, respectively. Consider additional infectious sources--> ?worsening PNA. C. diff negative. Qualifiers: Fever type: unspecified Qualified Code(s): R50.9 - Fever, unspecified (4) Bacteremia due to Enterococcus Current Visit: Yes Status: Acute Source unclear, but possibly intra-abdominal vs. psoas muscle mass vs. dialysis catheter infection. Blood culture drawn 09/08/16 came back positive 1/ set for VRE. Repeat blood cultures drawn 09/11/16 are negative x 2 sets. Repeat blood cultures drawn 09/13/16 are positive 1/2 sets (from the TDC) for S. hominis. Peripheral stick blood culture remains NGTD. Additional blood cultures drawn from the TDC 09/14/16 are negative. Additional blood cultures drawn 09/16/16 (peripheral) are negative x 2 sets. Additional blood cultures drawn 09/18/16 (1 peripheral and 1 PICC) are NGTD as well. Clinical exam reveals no evidence of endocarditis stigmata. However, due to the presence of possible septic emboli and the new-onset of A-fib RVR, IE is of concern. VIC unsuccessful. Repeat VIC deferred by the cardiology team. The patient has three minor Modified Pacheco's Criteria --> possibe IE. Started on Zyvox 09/09 per the primary team due to needing coverage for PNA and daptomycin not penetrating lung tissue. Zyvox is likely contributing to the patient's leukopenia. Zyvox discontinued and Daptomycin started. Continue Daptomycin 6mg/kg IV Q48H, dosed for HD. Give after HD on dialysis days. Duration of treatment depends on the clinical picture, but likely a total of 14 days from the first set of negative blood cultures, but may require a prolonged course due to persistent PNA. Baseline CK level 12. (5) Bacteremia due to Staphylococcus Current Visit: Yes Status: Acute Source likely the temporary dialysis catheter --> true infection vs. contaminant ? Blood culture drawn 09/13/16 from the HD catheter is positive 1/ set for S. hominis. Blood culture drawn 09/13/16 from a peripheral stick at the same time is negative. Additional blood cultures drawn 09/14/16 (from the TDC) are negative. Additional blood cultures drawn 09/16/16 (peripheral) are negative x 2 sets. Additional blood cultures drawn 09/18/16 (1 peripheral and 1 PICC) are NGTD as well. TDC was removed 09/15/16. Tip culture was negative. No further treatment indicated. (6) HCAP (healthcare-associated pneumonia) Current Visit: Yes Status: Acute Appears worse on imaging. The patient is still requiring high FiO2. Causative organism unclear. CXR completed on admission revealed bilateral perihilar infiltrates. Repeat CXR completed 09/13/16 showed bibasilar atelectasis with pleural effusion. CT of the chest completed 09/13/16 showed bibasilar airspace disease with multiple small nodular lesions in the right lung with at least 1 cavitary nodule concerning for septic emboli. Patient previous treated with 8 days of IV Cefepime. CT of the abdomen and pelvis completed 09/19/16 shows increase in size of nodular densitites within the right middle lobe with interval development of nodular densities with the right lower lobe most consistent with pneumonia. Basilar opacities in the bilateral lung bases with air bronchograms are also present, likely representing atelectasis, but superimposed PNA cannot be ruled out. Discussed with radiologist who states that pulmonary nodules are worse since last CT scan. Pulmonology notes reviewed. Input appreciated. Swallow study negative for aspiration. Fungal serologies have been ordered and are pending. Induced sputum specimen sent x 3 for AFB and culture. Continue Meropenem 500mg IV Q24H, dosed for HD. Give after HD on dialysis days. Continue Daptomycin as above. Duration of treatment depends on the clinical picture. Monitor renal function and dose-adjust antibiotics. (7) Cavitary lesion of lung Current Visit: Yes Status: Acute CT of the chest completed 09/13/16 showed bilateral lower lobe airspace disease with multiple nodular lesions in the right lung with at least 1 cavitary lesion concerning for septic emboli. Based on the patient's recent bacteremia, septic emboli is a possibility. Continue antibiotics as above. (8) Mass of psoas muscle Current Visit: Yes Status: Acute CT of the abdomen and pelvis completed 09/15/16 showed a hyperdense collection in the right psoas muscle suspicious for hematoma vs. phlegmon vs. mass. Etiology not entirely clear.--> ? source of bacteremia RP UTS unyielding. Repeat CT of the abdomen and pelvis 09/19/16 shows re-demonstration of the mass in the right psoas muscle, unchanged from previous CT. Discussed with radiologist --> most likely hematoma based on CT findings. (9) Acute kidney injury superimposed on CKD Current Visit: Yes Status: Acute The patient has required HOSPICE CLINICAL SUPERVISOR with the placement of a temporary dialysis catheter. Nephrology consulted and following. ELLE worse today. Management per the nephrology team. Dose-adjust antibiotics for HD and avoid nephrotoxins as able. (10) Acute and chronic respiratory failure Current Visit: No Status: Chronic Likely multifactorial--> PNA, fluid overload, septic emboli, COPD. Appears improved, but still requires BIPAP at night. She is still requiring high FiO2. Lasix has been re-started per the nephrology team. Continue supportive care per the primary team. Qualifiers: Respiratory failure complication: unspecified whether with hypoxia or hypercapnia Qualified Code(s): J96.20 - Acute and chronic respiratory failure , unspecified whether with hypoxia or hypercapnia (11) GIB (gastrointestinal bleeding) Current Visit: Yes Status: Acute Status post colonoscopy 08/31/[address] Escobedo which revealed seven colonic angioectasias. Right hemicolectomy recommended. Status post extended right hemicolectomy 09/05/[address] Moy. Operative report reviewed. Hgb down to 7.4 09/14/16. Received 2 units of PRBCs and hemoglobin only came up to 8.5 09/15/16. Hgb down to 7.6 this morning Repeat FOBT was positive. Management per the general surgery and GI teams. Qualifiers: GI bleed type/associated pathology: unspecified gastrointestinal hemorrhage type Qualified Code(s): K92.2 - Gastrointestinal hemorrhage, unspecified (12) Status post right hemicolectomy Current Visit: Yes Status: Acute POD #17. Status post extended right hemicolectomy with extensive KACY 09/06/[address] Moy. PO intake is improving. Calorie counts have been initiated and continue. TPN discontinued. Further management per the surgery team. (13) Acute exacerbation of chronic obstructive airways disease Current Visit: Yes Status: Acute Pulmonology consulted and following. (14) Anemia Current Visit: Yes Status: Chronic Likely secondary to GI bleed. Hgb down to 7.6 this morning. Management per the primary and surgery teams. Qualifiers: Anemia type: iron deficiency Iron deficiency anemia type: unspecified iron deficiency Qualified Code(s): D50.9 - Iron deficiency anemia, unspecified (15) Atrial fibrillation with RVR Current Visit: Yes Status: Acute Rate appears relatively well-controlled. Management per the primary team. (16) Leukocytosis Current Visit: Yes Status: Resolved The patient had a WBC of 16 post-op--? reactive vs. infectious etiology. Resolved. Qualifiers: Leukocytosis type: unspecified Qualified Code(s): D72.829 - Elevated white blood cell count, unspecified (17) CHF (congestive heart failure) Current Visit: Yes Status: Chronic Qualifiers: Congestive heart failure type: diastolic Congestive heart failure chronicity: chronic Qualified Code(s): I50.32 - Chronic diastolic (congestive ) heart failure (18) CKD (chronic kidney disease) stage 4, GFR 15-29 ml/min Current Visit: Yes Status: Chronic (19) Diabetes mellitus Current Visit: Yes Status: Chronic Qualifiers: Diabetes mellitus type: type 2 Diabetes mellitus complication status: with kidney complications Diabetes mellitus complication detail: with chronic kidney disease Diabetes mellitus alf insulin use: unspecified alf insulin use status Chronic kidney disease stage: stage 4 (severe) Qualified Code(s): E11.22 - Type 2 diabetes mellitus with diabetic chronic kidney disease ; N18.4 - Chronic kidney disease, stage 4 (severe) (20) Oral candidiasis Current Visit: Yes Status: Acute Likely secondary to IV antibiotic use. Improved. Continue Nystatin swish and swallow. - Subjective Interval history: Patient seen and examined. No acute events noted overnight. Patient states she feels better today and is more alert. She denies any fevers or chills, but has documented Tmax of 100.6 yesterday. Patient complains of abdominal pain at the site of her incision, especially after eating. She is eating more and tolerating a mechanically altered diet with thin liquids with minimal nausea. Denies chest pain or shortness of breath, but she still has a moist, non- productive cough. Patient has had diarrhea and rectal tube was placed due to skin breakdown. States she is passing gas. Denies pain in her back, but does report new onset of bilateral lower extremity pain, worse at night and worse in the left than the right. She is unable to localize the pain and states "they just ache." Infect Dis PN-Objective Data - Labs CBC & Chem 7: 09/22/16 03:50 09/22/16 08:50 Labs: Laboratory Results - last 24 hr 09/21/16 09/21/16 09/21/16 06:06 07:21 11:40 WBC RBC Hgb Hct MCV MCH MCHC RDW Plt Count MPV Immature Gran % Seg Neutrophils % Lymphocytes % Monocytes % Eosinophils % Basophils % Neutrophils # Lymphocytes # Monocytes # Eosinophils # Basophils # Platelet Estimate Immature Plt Fraction Hypochromasia POC Glucose 103 H 128 H 353 H Specimen Rejected 09/21/16 09/21/16 09/22/16 16:46 20:33 03:50 WBC 3.2 L RBC 2.73 L Hgb 7.6 L Hct 24.3 L MCV 89.0 MCH 27.8 L MCHC 31.3 L RDW 15.6 H Plt Count 52 L MPV 11.2 Immature Gran % 2.5 Seg Neutrophils % 77.1 Lymphocytes % 13.2 Monocytes % 5.3 Eosinophils % 1.6 Basophils % 0.3 Neutrophils # 2.5 Lymphocytes # 0.4 L Monocytes # 0.2 Eosinophils # 0.1 Basophils # 0.0 Platelet Estimate Decreased L Immature Plt Fraction 6.7 H Hypochromasia Present A POC Glucose 327 H 255 H Specimen Rejected 09/22/16 03:50 WBC RBC Hgb Hct MCV MCH MCHC RDW Plt Count MPV Immature Gran % Seg Neutrophils % Lymphocytes % Monocytes % Eosinophils % Basophils % Neutrophils # Lymphocytes # Monocytes # Eosinophils # Basophils # Platelet Estimate Immature Plt Fraction Hypochromasia POC Glucose Specimen Rejected Hemolyzed Cultures: Cultures 09/21/16 18:20 Cryptococcal Antigen - Final Serum 09/16/16 11:52 Blood Culture - Final Peripheral Venipuncture No growth. 09/16/16 11:45 Blood Culture - Final Peripheral Venipuncture No growth. 09/14/16 15:39 Blood Culture - Final Central Venous Catheter No growth. 09/14/16 15:39 Blood Culture - Final Central Venous Catheter No growth. 09/18/16 21:30 Blood Culture - Preliminary Peripheral Venipuncture No growth. 09/18/16 21:25 Blood Culture - Preliminary Peripheral Central Cath, Picc No growth. 09/18/16 18:20 Urine Culture - Final Urine,Clean Catch No growth. 09/13/16 15:40 Blood Culture - Final Central Venous Catheter Staphylococcus hominis 09/13/16 15:08 Blood Culture - Final Peripheral Venipuncture No growth. 09/15/16 16:25 Catheter Tip Culture - Final Intravenous or Arterial Cath No growth. 09/11/16 04:19 Blood Culture - Final Peripheral Venipuncture No growth. 09/11/16 04:15 Blood Culture - Final Peripheral Venipuncture No growth. 09/13/16 13:00 Urine Culture - Final Urine,Clean Catch No growth. 09/08/16 08:04 Blood Culture - Final Peripheral Venipuncture Vanc. Resistant Enterococcus Serology 09/18/16 09/18/16 09/14/16 Range/Units 18:20 14:20 16:11 Urine Color Yellow (Yellow) Urine Clarity Clear (Clear) Urine pH 6.0 (5.0-8.0) pH Units Ur Specific E[place] 1.012 (1.010-1.025) Urine Protein 30 H (Neg-Trace) mg/dL Urine Glucose (UA) 250 H (Normal) mg/dL Urine Ketones Negative (Negative) mg/dL Urine Blood Small H (Negative) Urine Nitrite Negative (Negative) Urine Bilirubin Negative (Negative) Urine Urobilinogen Normal (Normal) mg/dL Ur Leukocyte Esterase Trace H (Negative) Urine Microscopic RBC 5-15 H (0-3) per hpf Urine Microscopic WBC 5-15 H (0-3) per hpf Ur Squamous Epith Cells Many H (None-Few) per lpf Urine Bacteria None Seen (None-Few) per hpf Hyaline Casts None Seen (None-Few) per lpf Urine Yeast Many H (None Seen) per hpf Ur Culture Indicated? YES A (NO) Stool Occult Blood Positive A (Negative) Stl C. diff Tox B Gene Negative (Negative) A. baumannii (PCR) (Not Detect) Polly albicans (PCR) (Not Detect) C. glabrata (PCR) (Not Detect) C. krusei (PCR) (Not Detect) C. parapsilosis (PCR) (Not Detect) C. tropicalis (PCR) (Not Detect) Enterobacteriac sp PCR (Not Detect) E. cloacae complex PCR (Not Detect) Enterococcus sp PCR (Not Detect) E. coli (PCR) (Not Detect) H. influenzae (PCR) (Not Detect) Hep Bs Antigen (Nonreactive) Hep Bs Antibody mIU/mL Klebsiella oxytoca PCR (Not Detect) Klebsiella pneumoniae (Not Detect) List. monocytogenes PCR (Not Detect) N. meningitidis (PCR) (Not Detect) Proteus species (PCR) (Not Detect) Serratia marcescens PCR (Not Detect) Staphylococcus sp PCR (Not Detect) Staph aureus (PCR) (Not Detect) mecA-Methicil Res Gene (Not Detect) Streptococcus sp PCR (Not Detect) Group A Strep DNA (Not Detect) Group B Strep (PCR) (Not Detect) Strep pneumoniae (PCR) (Not Detect) P. aeruginosa (PCR) (Not Detect) Minerva/B-Vanco Res Genes (Not Detect) KPC (blaKPC) Detect PCR (Not Detect) 09/13/16 09/13/16 09/08/16 Range/Units 15:40 13:00 08:04 Urine Color Yellow (Yellow) Urine Clarity Cloudy A (Clear) Urine pH 6.0 (5.0-8.0) pH Units Ur Specific [place] 1.012 (1.010-1.025) Urine Protein 100 H (Neg-Trace) mg/dL Urine Glucose (UA) Normal (Normal) mg/dL Urine Ketones Negative (Negative) mg/dL Urine Blood Small H (Negative) Urine Nitrite Negative (Negative) Urine Bilirubin Negative (Negative) Urine Urobilinogen Normal (Normal) mg/dL Ur Leukocyte Esterase Small H (Negative) Urine Microscopic RBC 0-3 (0-3) per hpf Urine Microscopic WBC 15-30 H (0-3) per hpf Ur Squamous Epith Cells Many H (None-Few) per lpf Urine Bacteria None Seen (None-Few) per hpf Hyaline Casts None Seen (None-Few) per lpf Urine Yeast Many H (None Seen) per hpf Ur Culture Indicated? YES A (NO) Stool Occult Blood (Negative) Stl C. diff Tox B Gene (Negative) A. baumannii (PCR) Not Detected Not Detected (Not Detect) Polly albicans (PCR) Not Detected Not Detected (Not Detect) C. glabrata (PCR) Not Detected Not Detected (Not Detect) C. krusei (PCR) Not Detected Not Detected (Not Detect) C. parapsilosis (PCR) Not Detected Not Detected (Not Detect) C. tropicalis (PCR) Not Detected Not Detected (Not Detect) Enterobacteriac sp PCR Not Detected Not Detected (Not Detect) E. cloacae complex PCR Not Detected Not Detected (Not Detect) Enterococcus sp PCR Not Detected DETECTED A (Not Detect) E. coli (PCR) Not Detected Not Detected (Not Detect) H. influenzae (PCR) Not Detected Not Detected (Not Detect) Hep Bs Antigen (Nonreactive) Hep Bs Antibody mIU/mL Klebsiella oxytoca PCR Not Detected Not Detected (Not Detect) Klebsiella pneumoniae Not Detected Not Detected (Not Detect) List. monocytogenes PCR Not Detected Not Detected (Not Detect) N. meningitidis (PCR) Not Detected Not Detected (Not Detect) Proteus species (PCR) Not Detected Not Detected (Not Detect) Serratia marcescens PCR Not Detected Not Detected (Not Detect) Staphylococcus sp PCR DETECTED A Not Detected (Not Detect) Staph aureus (PCR) Not Detected Not Detected (Not Detect) mecA-Methicil Res Gene DETECTED A N/A (Not Detect) Streptococcus sp PCR Not Detected Not Detected (Not Detect) Group A Strep DNA Not Detected Not Detected (Not Detect) Group B Strep (PCR) Not Detected Not Detected (Not Detect) Strep pneumoniae (PCR) Not Detected Not Detected (Not Detect) P. aeruginosa (PCR) Not Detected Not Detected (Not Detect) Minerva/B-Vanco Res Genes N/A DETECTED A (Not Detect) KPC (blaKPC) Detect PCR N/A N/A (Not Detect) 09/07/16 Range/Units 13:42 Urine Color (Yellow) Urine Clarity (Clear) Urine pH (5.0-8.0) pH Units Ur Specific E[place] (1.010-1.025) Urine Protein (Neg-Trace) mg/dL Urine Glucose (UA) (Normal) mg/dL Urine Ketones (Negative) mg/dL Urine Blood (Negative) Urine Nitrite (Negative) Urine Bilirubin (Negative) Urine Urobilinogen (Normal) mg/dL Ur Leukocyte Esterase (Negative) Urine Microscopic RBC (0-3) per hpf Urine Microscopic WBC (0-3) per hpf Ur Squamous Epith Cells (None-Few) per lpf Urine Bacteria (None-Few) per hpf Hyaline Casts (None-Few) per lpf Urine Yeast (None Seen) per hpf Ur Culture Indicated? (NO) Stool Occult Blood (Negative) Stl C. diff Tox B Gene (Negative) A. baumannii (PCR) (Not Detect) Polly albicans (PCR) (Not Detect) C. glabrata (PCR) (Not Detect) C. krusei (PCR) (Not Detect) C. parapsilosis (PCR) (Not Detect) C. tropicalis (PCR) (Not Detect) Enterobacteriac sp PCR (Not Detect) E. cloacae complex PCR (Not Detect) Enterococcus sp PCR (Not Detect) E. coli (PCR) (Not Detect) H. influenzae (PCR) (Not Detect) Hep Bs Antigen Nonreactive (Nonreactive) Hep Bs Antibody 3.83 mIU/mL Klebsiella oxytoca PCR (Not Detect) Klebsiella pneumoniae (Not Detect) List. monocytogenes PCR (Not Detect) N. meningitidis (PCR) (Not Detect) Proteus species (PCR) (Not Detect) Serratia marcescens PCR (Not Detect) Staphylococcus sp PCR (Not Detect) Staph aureus (PCR) (Not Detect) mecA-Methicil Res Gene (Not Detect) Streptococcus sp PCR (Not Detect) Group A Strep DNA (Not Detect) Group B Strep (PCR) (Not Detect) Strep pneumoniae (PCR) (Not Detect) P. aeruginosa (PCR) (Not Detect) Minerva/B-Vanco Res Genes (Not Detect) KPC (blaKPC) Detect PCR (Not Detect) Exam - Constitutional Vitals: Temp Pulse Resp BP Pulse Ox 99.4 F 105 18 126/56 94 09/22/16 07:51 09/22/16 08:29 09/22/16 08:38 09/22/16 07:51 09/22/16 08:38 General appearance: cooperative, no acute distress, obese - Head Head exam: Present: atraumatic, normal inspection, normocephalic - Eye Eye exam: Present: EOMI, normal appearance, PERRL Pupils: Present: normal accommodation Additional comments: No subconjunctival hemorrhage noted. - ENT ENT exam: Present: mucous membranes moist Additional comments: Oral thrush improved. - Neck Neck exam: Present: normal inspection Additional comments: TDC noted to the right neck with transparent dressing C/D/I. - Respiratory Respiratory exam: Present: wheezes (Fine inspiratory and expiratory wheezes throughout.). Absent: rales, respiratory distress, rhonchi - Cardiovascular Cardiovascular exam: Present: +S1, +S2, tachycardia. Absent: irregular rhythm - GI/Abdominal GI/Abdominal exam: Present: normal bowel sounds, soft, tenderness (generalized) . Absent: distended Additional comments: Midline abdominal incision with dressing C/D/I. Watkins catheter noted to be draining clear yellow urine. Rectal tube with dark brown liquid stool noted. - Extremities Exam Extremities exam: Present: normal inspection, pedal edema (Trace BLE). Absent: joint swelling, tenderness Additional comments: No endocarditis stigmata noted. - Neurological Exam Neurological exam: Present: alert, oriented X3, no focal deficits - Psychiatric Psychiatric exam: Present: normal affect, normal mood - Skin Skin exam: Present: dry, intact, normal color, warm - VTE Documentation of Mechanical Device: Intermittent pneumatic compression device Consult Discharge Plan - Plan Referrals: Edith Peña CNP [Advanced Practice Nurse] - 09/26/16 10:15 am Kj Yost MD [Partnered Physician] - Therese Garcia CNP [Primary Care Provider] - () Prudence Escobedo MD [Partnered Physician] - 10/11/16 3:50 pm () - Attending Attestation I examined this patient and my medical decision-making was reviewed with the RADIOLOGICAL TECHNICIAN/PA/Advanced Practice Nurse/Resident Physician. I agree with the documented findings, disposition and treatment plan as described except to the extent set forth below.
--- NOTE | 2016-09-22 13:23 | Electrocardiograph Report ---
[address] [address] Test Date: 2016-09-20 Pat Name: Dorothy Parks Department: 110 Room: 2N01 Gender: F Luggage Maker: : [id number] Requested By: Nelia Del Valle Order Number: [id number] Reading MD: Turner Michelle MD Measurements Intervals [place] Rate: 134 P: 148 AR: 104 QRS: -6 QRSD: 88 T: 30 QT: 270 QTc: 349 Interpretive Statements Ectopic atrial tachycardia Electronically Signed On 09-22-2016 13:22:02 EDT by Turner Michelle MD
[2016-09-22] MEDS: Nystatin POWDER 30 GM BOTTLE TP SCH ×3 (13:45→21:59)
[2016-09-22] MEDS: Miconazole w/zinc oxide&karaya 92 APPL/92 GM TUBE TP SCH ×3 (13:45→22:00)
--- NOTE | 2016-09-22 14:54 | Internal Med Progress Note ---
Date of Encounter: 09/22/16 Time of Encounter: 14:00 - Assessment and plan (1) Acute and chronic respiratory failure ([id number]) Current Visit: Yes Status: Acute Assessment and plan: Secondary to COPDE/CHFE/Afib and suspected septic emboli in lungs. Patient uses [address] Chest 09/13 revealed bilateral lower lobe septic emboli as well as multiple small nodular right lung lesions, 1 is a cavitary nodule. suspicious for septic emboli. 09/20: Worsening hypoxia. Patient had HD 09/19 and 09/20 with removal of ~4L. Now requiring [address] chest showed overall worsening of ill-defined bilateral nodular infiltrates, primarily in the right upper lobe. Antibiotics switched to meropenem and daptomycin. 09/22: Appreciate pulmonary and ID input. high oxygen requirements (10L high flow nasal cannula). Continue empiric antibiotics with meropenem and daptomycin , nebs, oxygen supplementation, and BIPAP as needed. Qualifiers: Respiratory failure complication: hypoxia Qualified Code(s): J96.21 - Acute and chronic respiratory failure with hypoxia (2) Bacteremia due to Enterococcus Current Visit: Yes Status: Acute Assessment and plan: 09/07 Patient has a Right dialysis CVC placed 09/08 Blood culture drawn due to leukocytosis and grew VRE 05/08 set 09/09 started on IV Zyvox. 09/11 Blood cultures, peripherally are negative 09/13 blood cultures x1 from Right Dialysis CVC grew Staphylococcus hominis. peripheral blood cultures NGTD. 09/15 Dialysis catheter was removed, tip culture NGTD. CT chest findings suggestive of septic emboli. 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 started on cefepime and continue on Zyvox day 7. 09/16 Unsuccessful VIC attempt. Peripheral blood cultures negative. 09/19: Ct abdomen and pelvis shows increase in size of nodular densities within the right middle lobe most compatible with pneumonia, unchanged in size heterogeneous elongated focus within the right psoas muscle suspicious for hematoma. 09/22 persistent low grade fevers. Continue empiric Meropenem and Daptomycin ( start date 09/20). Follow up final results of blood cultures 09/18. (3) Acute kidney injury superimposed on CKD Current Visit: Yes Status: Acute Assessment and plan: s/p Right CVC and HD 09/07, 09/08, 09/09, 09/12, 09/14. 09/19: s/p dialysis catheter. HD 09/19, 09/20. Appreciate nephrology input. close monitoring. avoid nephrotoxic agents as possible. (4) GIB (gastrointestinal bleeding) Current Visit: Yes Status: Acute Assessment and plan: Secondary to colonic angiodysplasia in the setting of anticoagulation s/p hemicolectomy 09/06 POD 8, Appreciate surgery input. 09/08 Hgb at 6.5 post-surgery, she Received 2 units PRBCS 09/14 Hgb dropped to 7.4, transfused 2 units of PRBC during dialysis. fecal occult blood test. 09/15: Pt had CT abdomen and pelvis showing an elongated hyperdense collection within the right psoas muscle. consider hematoma, phlegmon or mass. 09/20 hgb is 7.6. close monitor. No external bleeding. Qualifiers: GI bleed type/associated pathology: unspecified gastrointestinal hemorrhage type Qualified Code(s): K92.2 - Gastrointestinal hemorrhage, unspecified (5) Angiodysplasia of colon Current Visit: Yes Status: Acute Assessment and plan: plan as GI bleed (6) Atrial fibrillation with RVR Current Visit: Yes Status: Acute Assessment and plan: 09/11 she developed Refractory Aflutter requiring cardizem drip, cardiology was consulted 09/14: Hgb dropped to 7.4 and fecal occult blood is positive, stop heparin drip. 09/15: switched to oral metoprolol 09/22: oral metoprolol and IV metoprolol prn. (7) CHF (congestive heart failure) Current Visit: Yes Status: Chronic Assessment and plan: plan as above Qualifiers: Congestive heart failure type: diastolic Congestive heart failure chronicity: chronic Qualified Code(s): I50.32 - Chronic diastolic (congestive ) heart failure (8) CKD (chronic kidney disease) stage 4, GFR 15-29 ml/min Current Visit: Yes Status: Chronic Assessment and plan: As in ELLE on CKD (9) Diabetes mellitus Current Visit: Yes Status: Chronic Assessment and plan: DM with Hyperglycemia possibly secondary to Starting TPN 09/15: off TPN and insulin drip. 09/17: Glucose level of 63 at 4 AM. 09/20: Fasting glucose 178. insulin sliding scale. diabetic diet. Qualifiers: Diabetes mellitus type: type 2 Diabetes mellitus complication status: with kidney complications Diabetes mellitus complication detail: with chronic kidney disease Diabetes mellitus termite helper insulin use: unspecified termite helper insulin use status Chronic kidney disease stage: stage 4 (severe) Qualified Code(s): E11.22 - Type 2 diabetes mellitus with diabetic chronic kidney disease ; N18.4 - Chronic kidney disease, stage 4 (severe) (10) Oropharyngeal dysphagia Current Visit: Yes Status: Acute Assessment and plan: unable to perform VIC Continue mechanically altered diet. Barium swallow study toMorrow (11) Acute metabolic encephalopathy Current Visit: Yes Status: Acute Assessment and plan: Multifactorial due to infection, prolonged hospitalization brought, age, suspected early signs of dementia at home, recent surgery. Continue Seroquel 12.5 mg at bedtime only. Treat underlying etiology. - Subjective Interval history: Patient reports productive cough, and shortness of breath on exertion. - Constitutional Vitals: Temp Pulse Resp BP Pulse Ox 98.9 F 104 18 138/69 94 09/22/16 11:31 09/22/16 11:31 09/22/16 11:31 09/22/16 11:31 09/22/16 11:31 General appearance: Present: cooperative, A&O X 3, pleasant, no acute distress, obese, answers questions appropriately - Neck Neck exam general surgery: Present: supple, trachea midline. Absent: lymphadenopathy - Respiratory Respiratory exam: Present: CTAB - Cardiovascular Cardiovascular exam: Present: RRR - GI/Abdominal GI/Abdominal exam: Present: normal bowel sounds, soft - Extremities Exam Extremities exam: Absent: pedal edema Additional comments: swelling of her upper extremities. - Back Exam Back exam: Absent: CVA tenderness (L), CVA tenderness (R) - Neurological Exam Neurological exam: Present: alert, oriented X3, no focal deficits, strengths equal and symetr throughout. Absent: facial droop, speech deficit - Skin Skin exam: Absent: rash Internal Medicine: Result - Labs CBC & Chem 7: 09/22/16 03:50 09/22/16 08:50 Labs: Short CBC 09/22/16 Range/Units 03:50 WBC 3.2 L (4.3-11.1) K/mcL Hgb 7.6 L (11.5-15.4) g/dL Hct 24.3 L (35.3-44.9) % Plt Count 52 L (140-400) K/mcL Neutrophils # 2.5 (1.6-8.9) K/mcL BMP 09/22/16 08:50 Sodium 134 L Potassium 3.7 Chloride 97 L Carbon Dioxide 22 BUN 38 H D Creatinine 3.05 H D Glucose 260 H Calcium 8.5 L Liver Function 09/22/16 Range/Units 08:50 Total Bilirubin 0.5 (0.2-1.2) mg/dL AST 13 (5-34) Units/L ALT 20 (0-55) Units/L Alkaline Phosphatase 65 (38-126) Units/L Albumin 1.7 L (3.5-5.0) g/dL - ABG Interpretation ABG results: ABG ABG pH 7.39 pH Units (7.32-7.45) 09/13/16 21:19 ABG pCO2 45 mmHg (35-45) 09/13/16 21:19 ABG pO2 79 mmHg (85-104) L 09/13/16 21:19 ABG O2 Saturation 95 % (95-98) 09/13/16 21:19 PT/INR, D-dimer PT 11.1 Seconds (9.4-12.1) 09/18/16 04:38 - VTE Documentation of Mechanical Device: Intermittent pneumatic compression device Consult Discharge Plan - Plan Referrals: Edith Peña CNP [Advanced Practice Nurse] - 09/26/16 10:15 am Kj Yost MD [Partnered Physician] - Therese Garcia CNP [Primary Care Provider] - () Prudence Escobedo MD [Partnered Physician] - 10/11/16 3:50 pm ()
[2016-09-22] MEDS: *HR* OxyCODONE Immed Rel 5 MG TABLET PO PRN (15:25)
[2016-09-22] MEDS: Meropenem 500 MG in 0.9 % Sodium Chloride Mini Bag 100 ML IVPB SCH (17:43)
[2016-09-22] MEDS: DAPTOMYCIN IVPB SCH (20:17)
[2016-09-22] MEDS: SODIUM CHLORIDE 0.9% IVPB SCH (20:17)
[2016-09-22] MEDS: Insulin DETEMIR 100 UNIT/ML X5UNITS SQ SCH (22:00)
[2016-09-22] MEDS: *HR* LORazepam 0.5 MG TABLET PO PRN (23:55)
[2016-09-23] MEDS: *HR* OxyCODONE Immed Rel 5 MG TABLET PO PRN (01:21)
[2016-09-23] MEDS: Ipratropium/Albuterol Neb 3 ML IH SCH ×5 (03:28→20:45)
[2016-09-23 04:18] LABS: Basophils % 0.6 %; Hematocrit 23.2 % (35.3-44.9); Mean Corpuscular Volume 89.2 fL (83.0-100.0); Red Cell Distribution Width 15.5 % (11.5-14.5)
[2016-09-23 04:20] LABS: Eosinophils # 0.1 K/mcL (0.0-0.6); Eosinophils % 1.5 %; Hemoglobin 7.3 g/dL (11.5-15.4); Immature Granulocytes % 8.5 % (0-4); Immature Platelets 7.5 % (1.1-6.1); Lymphocytes # 0.5 K/mcL (0.6-4.6); Lymphocytes % 16.1 %; Mean Corpuscular HGB Conc 31.5 g/dL (31.6-35.5); Mean Corpuscular Hemoglobin 28.1 pg (28.0-33.3); Mean Platelet Volume 11.6 fL (9.4-12.4); Monocytes # 0.2 K/mcL (0.0-1.3); Monocytes % 7.3 %; Neutrophils # 2.2 K/mcL (1.6-8.9)
[2016-09-23 04:24] LABS: Platelet Count 46 K/mcL (140-400)
[2016-09-23 04:35] LABS: Calcium 8.1 mg/dL (8.6-10.8); Phosphorous 2.1 mg/dL (2.3-4.7); Potassium 3.5 mEq/L (3.5-4.5)
[2016-09-23 05:05] LABS: Large Platelets Present (Not Present); Platelet Estimate Decreased (Normal)
--- NOTE | 2016-09-23 07:09 | Pulmonology Progress Note ---
Date of Encounter: 09/23/16 Time of Encounter: 07:09 Assessment and Plan (1) Lung nodules Current Visit: Yes Status: Acute I have discussed this complex patient at length with the infectious disease service and we are both in agreement that worrisome findings of worsening bilateral pulmonary nodules some with cavitation of unclear etiology but I suspect still related to septic emboli in the context of enterococcal bacteremia clinical background. Clinically patient does not appear to be making consistent improvement For concern of possible nontuberculous mycobacterium infection and induced sputum was performed which was negative for AFB The possibility that this represents fungal infection (invasive aspergillus/ histoplasma) entertained in DDx and serologies pending Cryptococcal Ag (-) The patient remains high risk to undergo endoscopic procedure and in speaking with the family today they felt that they wanted this to be "last resort" plan. Given lack of significant improvement despite antimicrobial modification my recs would be to send for HD today with volume removal to improve respiratory status. If resp status less tenuous tomorrow will plan on Bronchoscopy in ICU. I will come back to discuss plan with family later in the day. Please keep NPO at midnight. I am appreciative of the excellent ongoing care of this patient by the primary internal medicine service as well as antimicrobial selection by the infectious disease service. From a standpoint of COPD patient has schedule bronchodilators and I have added ICS/LABA to regimen. I do not feel that enteral steroids are necessary would favor stopping (if not done already). Cont NiPPV at night and as needed for worsening hypoxia. Overall prognosis is guarded would also consider consultation with palliative care service for ongoing goals of care discussion. Pulmonary will continue to follow (2) Acute exacerbation of chronic obstructive airways disease Current Visit: Yes Status: Acute (3) Pneumonia Current Visit: No Status: Acute Qualifiers: Pneumonia type: due to unspecified organism Laterality: bilateral Lung location: unspecified part of lung Qualified Code(s): J18.9 - Pneumonia, unspecified organism (4) CHF (congestive heart failure) Current Visit: Yes Status: Chronic Qualifiers: Congestive heart failure type: diastolic Congestive heart failure chronicity: chronic Qualified Code(s): I50.32 - Chronic diastolic (congestive ) heart failure Subjective Principal diagnosis: ELLE on CKD, COPD, PAF Interval history: Patient appears more somnolent today. Overnight had an episode of hypoxia requiring BiPAP support she is weaned off BiPAP now and has acceptable oxygenation between 10 and 12 L high flow oxygen. Continues to have low-grade fever of unclear etiology. Family his nose that she has had a cough that is nonproductive. Objective PUL Vital signs: Last Vital Signs Temp 100.0 F H 09/23/16 04:57 Pulse 87 09/23/16 04:57 Resp 17 09/23/16 04:57 BP 130/59 09/23/16 04:57 Pulse Ox 94 09/23/16 04:57 General appearance: lethargic Eyes: nonicteric ENT: oropharynx moist Effort: mildly labored Auscultation: bilateral: diminished breath sounds, wheezes, rhonchi Cardiovascular: irregular rhythm Gastrointestinal: non-tender mood appropriate Results - Laboratory Findings CBC and BMP: 09/23/16 04:05 09/23/16 04:05 ABG ABG pH 7.39 pH Units (7.32-7.45) 09/13/16 21:19 ABG pCO2 45 mmHg (35-45) 09/13/16 21:19 ABG pO2 79 mmHg (85-104) L 09/13/16 21:19 ABG O2 Saturation 95 % (95-98) 09/13/16 21:19 PT/INR, D-dimer PT 11.1 Seconds (9.4-12.1) 09/18/16 04:38 Abnormal lab findings: Abnormal lab results WBC 3.3 K/mcL (4.3-11.1) L 09/23/16 04:05 RBC 2.60 M/mcL (3.82-4.97) L 09/23/16 04:05 Hgb 7.3 g/dL (11.5-15.4) L 09/23/16 04:05 Hct 23.2 % (35.3-44.9) L 09/23/16 04:05 MCHC 31.5 g/dL (31.6-35.5) L 09/23/16 04:05 RDW 15.5 % (11.5-14.5) H 09/23/16 04:05 Plt Count 46 K/mcL (140-400) L 09/23/16 04:05 Immature Gran % 8.5 % (0-4) H 09/23/16 04:05 Band Neutrophils % 22.0 % (0-4) H 09/21/16 03:50 Lymphocytes # 0.5 K/mcL (0.6-4.6) L 09/23/16 04:05 Nucleated RBCs/100 WBC 0.5 /100 WBC (0) H 09/13/16 04:25 Toxic Granulation Present (Not Present) A 09/18/16 04:38 Platelet Estimate Decreased (Normal) L 09/23/16 04:05 Large Platelets Present (Not Present) A 09/23/16 04:05 Immature Plt Fraction 7.5 % (1.1-6.1) H 09/23/16 04:05 Polychromasia 1+ (Not Present) A 09/16/16 03:10 Hypochromasia Present (Not Present) A 09/22/16 03:50 Basophilic Stippling 2+ (Not Present) A 09/14/16 03:00 Anisocytosis 1+ (Not Present) A 09/16/16 03:10 APTT 60.5 Seconds (26.0-36.0) H D 09/14/16 18:20 Heparin Anti-Xa, Unfract 1.06 IU/mL (0.30-0.70) H* 09/14/16 03:00 ABG pO2 79 mmHg (85-104) L 09/13/16 21:19 ABG HCO3 27.2 mEQ/L (21-27) H 09/13/16 21:19 ABG Total CO2 28.6 mEq/L (20-26) H 09/13/16 21:19 Sodium 132 mEq/L (136-145) L 09/23/16 04:05 BUN 47 mg/dL (7-20) H 09/23/16 04:05 Creatinine 3.56 mg/dL (0.57-1.11) H 09/23/16 04:05 Est GFR ( Amer) 15 (> 60) L 09/23/16 04:05 Est GFR (Non-Af Amer) 13 (> 60) L 09/23/16 04:05 Glucose 210 mg/dL (70-99) H 09/23/16 04:05 POC Glucose 341 (58-89) H 09/22/16 20:34 Uric Acid 10.4 mg/dL (2.6-6.0) H 08/25/16 12:10 Calcium 8.1 mg/dL (8.6-10.8) L 09/23/16 04:05 Phosphorus 2.1 mg/dL (2.3-4.7) L 09/23/16 04:05 Creatine Kinase 12 Units/L (29-168) L 09/20/16 15:20 Troponin I 0.25 ng/mL (0-0.03) H* 09/08/16 11:50 B-Natriuretic Peptide 241 pg/mL (0-100) H 09/17/16 04:00 Serum Total Protein 5.3 g/dL (6.0-8.3) L 09/22/16 08:50 Albumin 1.7 g/dL (3.5-5.0) L 09/22/16 08:50 Globulin 3.6 g/dL (2.4-3.5) H 09/22/16 08:50 Albumin/Globulin Ratio 0.5 (1.1-2.2) L 09/22/16 08:50 TSH 0.028 mcIU/mL (0.350-4.840) L 08/25/16 16:51 Urine Protein 30 mg/dL (Neg-Trace) H 09/18/16 18:20 Urine Glucose (UA) 250 mg/dL (Normal) H 09/18/16 18:20 Urine Blood Small (Negative) H 09/18/16 18:20 Ur Leukocyte Esterase Trace (Negative) H 09/18/16 18:20 Urine Microscopic RBC 5-15 per hpf (0-3) H 09/18/16 18:20 Urine Microscopic WBC 5-15 per hpf (0-3) H 09/18/16 18:20 Ur Squamous Epith Cells Many per lpf (None-Few) H 09/18/16 18:20 Urine Yeast Many per hpf (None Seen) H 09/18/16 18:20 Ur Culture Indicated? YES (NO) A 09/18/16 18:20 Protein/Creatinin Ratio 0.42 mg/mg (0-0.20) H 08/24/16 14:18 Urine Total Protein 22 mg/dL (1-14) H 08/24/16 14:18 Stool Occult Blood Positive (Negative) A 09/14/16 16:11 Staphylococcus sp PCR DETECTED (Not Detect) A 09/13/16 15:40 mecA-Methicil Res Gene DETECTED (Not Detect) A 09/13/16 15:40 - Microbiology Findings Microbiology Findings: Microbiology, Last 48 Hours 09/21/16 17:45 Respiratory Culture - Preliminary Other-Specify in Comments No growth. 09/21/16 17:45 Acid Fast Stain - Final Sputum 09/21/16 18:20 Cryptococcal Antigen - Final Serum 09/16/16 11:52 Blood Culture - Final Peripheral Venipuncture No growth. 09/16/16 11:45 Blood Culture - Final Peripheral Venipuncture No growth. - Clinical Findings Intake & Output: Intake & Output 09/22/16 09/22/16 09/23/16 15:59 23:59 07:59 Intake Total 240 / 240 100 / 100 100 / 100 Output Total 175 / 175 50 / 50 1070 / 1070 Balance 65 / 65 50 / 50 -970 / -970 Weight 91.7 kg - VTE Documentation of Mechanical Device: Intermittent pneumatic compression device Consult Discharge Plan - Plan Referrals: Edith Peña CNP [Advanced Practice Nurse] - 09/26/16 10:15 am jK Yost MD [Partnered Physician] - Therese Garcia CNP [Primary Care Provider] - () Prudence Escobedo MD [Partnered Physician] - 10/11/16 3:50 pm ()
[2016-09-23] MEDS: Nystatin SUSP 5 ML UD.LIQ PO SCH ×4 (08:32→22:15)
[2016-09-23] MEDS: Furosemide 40 MG TABLET PO SCH (08:32)
[2016-09-23] MEDS: predniSONE 5 MG TABLET PO SCH (08:32)
[2016-09-23] MEDS: Insulin LISPRO 300 UNITS/3 ML VIAL SQ SCH ×4 (08:32→22:22)
[2016-09-23] MEDS: Insulin DETEMIR 100 UNIT/ML X5UNITS SQ SCH ×2 (08:52→22:30)
[2016-09-23] MEDS ORDERED: 0.9 % Sodium Chloride 250 ML IVC PRN (10:05)
[2016-09-23] MEDS ORDERED: *HR* Heparin 10,000 UNIT/10 ML VIAL IV PRN (10:05)
--- NOTE | 2016-09-23 10:12 | General Surgery Progress Note ---
Date of Encounter: 09/23/16 Time of Encounter: 10:09 - Assessment and Plan (1) Angiodysplasia of colon Current Visit: Yes Status: Acute POD #17 Extended right hemicolectomy. Lysis of adhesions times [address] Moy 09/13 positive blood cultures growing gram-positive cocci CT scan of the chest also shows possible septic emboli. Abdominal CT shows an elongated hyperdense collection within the right psoas muscle. US right flank unremarkable Incision is clean and dry. Patient is having BMs, bowel sounds present. Patient has been advanced to mechanically altered diet, she is tolerating it and is eating most of her meals including the milkshake. She no longer has pain after eating. The patient faces nutritional challenges, will continue with calorie counts. She may require PEG tube to augment her nutrition Plan: -Continue to encourage oral intake -Encourage incentive spirometry when up. -Continue mechanically soft diet -Maintain Watkins catheter for strict I and O's -Daily dressing change -PPI therapy daily (2) Acute and chronic respiratory failure ([id number]) Current Visit: Yes Status: Acute IS every 1 hour while awake Aggressive pulmonary toilet Continue aerosol treatments as ordered Wean oxygen as tolerated Management per medicine service Qualifiers: Respiratory failure complication: hypoxia Qualified Code(s): J96.21 - Acute and chronic respiratory failure with hypoxia (3) Acute kidney injury superimposed on CKD Current Visit: Yes Status: Acute Plan: -IV fluids -Avoid nephrotoxic medications -Continue Watkins catheter for strict I's and O's -Nephrology following- hemodialysis (4) Insulin dependent type 2 diabetes mellitus Current Visit: Yes Status: Chronic Continue to manage per medicine team (5) DVT prophylaxis Current Visit: No Status: Acute Continue EPCDs to bilateral lower extremities for DVT prophylaxis Continue heparin 5,000 units SQ twice daily for DVT prophylaxis Subjective Patient reports: feels better, tolerating a regular diet Narrative: Was seen and examined. She is tolerating a regular diet, her appetite is improving and she is able to eat more. She is not feeling nauseous after eating. Objective Vital Signs - Last 8 Hours Temp Pulse Resp BP Pulse Ox 09/23/16 08:30 107 09/23/16 07:44 17 94 09/23/16 07:37 99.6 F 108 115/69 93 09/23/16 04:57 100.0 F H 87 17 130/59 94 09/23/16 03:31 20 96 Intake and Output 09/22/16 09/23/16 09/23/16 23:59 07:59 15:59 Intake Total 100 / 100 100 / 100 Output Total 50 / 50 1070 / 1070 Balance 50 / 50 -970 / -970 Intake: IV Fluids 100 / 100 100 / 100 Cubicin 580.8 MG In 0.9 % 100 / 100 Sodium Chloride 100 ML @ 200 mls/hr IVPB Q48H KEILA Rx#:[id number] Merrem 500 MG In 0.9 % 100 / 100 Sodium Chloride (Mini-Bag +) 100 ML @ 200 mls/hr IVPB Q24H KEILA Rx#: [id number] Output: Stool 1000 / 1000 Catheter 50 50 70 / 70 Other: Weight 91.7 kg Blood Glucose* 341 254 Patient Weight 09/23/16 23:59 Weight 91.7 kg - General physical appearance no distress, no pain, chronically ill, obese - ENT atraumatic, normocephalic - Neck Neck exam: trachea midline - Respiratory wheezing: left - Cardiovascular Cardiovascular exam: Present: irregular rhythm - Abdomen Abdomen: Present: bowel sounds present, soft, non tender - Incision Incision: Present: clean and dry - Integumentary no rash, no growths, no abnormal pigmentation - Neurologic normal coordination, normal sensation - Musculoskeletal normal posture - Psychiatric oriented to time, oriented to person, oriented to place, speech is normal, memory intact - Labs 09/23/16 04:05 09/23/16 04:05 Diabetes panel 09/22/16 09/23/16 Range/Units 08:50 04:05 Sodium 134 L 132 L (136-145) mEq/L Potassium 3.7 3.5 (3.5-4.5) mEq/L Chloride 97 L 98 (98-109) mEq/L Carbon Dioxide 22 24 (19-29) mEq/L BUN 38 H D 47 H (7-20) mg/dL Creatinine 3.05 H D 3.56 H (0.57-1.11) mg/dL Glucose 260 H 210 H (70-99) mg/dL Calcium 8.5 L 8.1 L (8.6-10.8) mg/dL AST 13 (5-34) Units/L ALT 20 (0-55) Units/L Alkaline Phosphatase 65 (38-126) Units/L Albumin 1.7 L (3.5-5.0) g/dL Calcium panel 09/22/16 09/23/16 Range/Units 08:50 04:05 Calcium 8.5 L 8.1 L (8.6-10.8) mg/dL Phosphorus 2.1 L (2.3-4.7) mg/dL Albumin 1.7 L (3.5-5.0) g/dL Pituitary panel 09/22/16 09/23/16 Range/Units 08:50 04:05 Sodium 134 L 132 L (136-145) mEq/L Potassium 3.7 3.5 (3.5-4.5) mEq/L Chloride 97 L 98 (98-109) mEq/L Carbon Dioxide 22 24 (19-29) mEq/L BUN 38 H D 47 H (7-20) mg/dL Creatinine 3.05 H D 3.56 H (0.57-1.11) mg/dL Glucose 260 H 210 H (70-99) mg/dL Calcium 8.5 L 8.1 L (8.6-10.8) mg/dL Adrenal panel 09/22/16 09/23/16 Range/Units 08:50 04:05 Sodium 134 L 132 L (136-145) mEq/L Potassium 3.7 3.5 (3.5-4.5) mEq/L Chloride 97 L 98 (98-109) mEq/L Carbon Dioxide 22 24 (19-29) mEq/L BUN 38 H D 47 H (7-20) mg/dL Creatinine 3.05 H D 3.56 H (0.57-1.11) mg/dL Glucose 260 H 210 H (70-99) mg/dL Calcium 8.5 L 8.1 L (8.6-10.8) mg/dL Total Bilirubin 0.5 (0.2-1.2) mg/dL AST 13 (5-34) Units/L ALT 20 (0-55) Units/L Alkaline Phosphatase 65 (38-126) Units/L Albumin 1.7 L (3.5-5.0) g/dL - VTE Documentation of Mechanical Device: Intermittent pneumatic compression device Consult Discharge Plan - Plan Referrals: Edith Peña, [employer]CH[employer]ICIAN [Advanced Practice Nurse] - 09/26/16 10:15 am Kj Yost MD [Partnered Physician] - Therese Garcia CNP [Primary Care Provider] - () Prudence Escobedo MD [Partnered Physician] - 10/11/16 3:50 pm () - Attending Attestation I examined this patient and my medical decision-making was reviewed with the V[employer] SP[employer]ER/PA/Advanced Practice Nurse/Resident Physician. I agree with the documented findings, disposition and treatment plan as described except to the extent set forth below. Really no change from a surgery standpoint. Gastrointestinal tract is functioning. She continues to [place] with abscess Sukumar Moy MD FACS
[2016-09-23] MEDS ORDERED: 0.9 % Sodium Chloride 1,000 ML PRIME SCH (10:15)
--- NOTE | 2016-09-23 11:22 | Nephrology Progress Note ---
Date of Encounter: 09/23/16 Time of Encounter: 11:22 - Assessment and Plan (1) Acute kidney injury superimposed on CKD Current Visit: Yes Status: Acute Patient is dialysis dependent. Will perform dialysis today and evaluate for UF Monday. Renal dose medications. (2) Anemia Current Visit: Yes Status: Chronic Follow hemoglobin. Transfuse as needed. Management per primary team. Qualifiers: Anemia type: iron deficiency Iron deficiency anemia type: unspecified iron deficiency Qualified Code(s): D50.9 - Iron deficiency anemia, unspecified (3) HCAP (healthcare-associated pneumonia) Current Visit: Yes Status: Acute Per primary team and pulmonary. Patient with worsening respiratory status overnight that improved with bipap. Antifungal agent started. (4) DVT prophylaxis Current Visit: Yes Status: Acute per primary team. Subjective Principal diagnosis: ELLE on CKD, COPD, PAF Interval history: Patient seen and evaluated. Her daughter was at the bedside. Patient reports that she is feeling much better. She is on nasal cannula and reports that her breathing has improved. Objective - Vital Signs Vital signs: Vital Signs Temp Pulse Resp BP Pulse Ox 09/23/16 08:30 107 09/23/16 07:44 17 94 09/23/16 07:37 99.6 F 108 115/69 93 09/23/16 04:57 100.0 F H 87 17 130/59 94 09/23/16 03:31 20 96 09/22/16 23:16 18 94 09/22/16 21:07 99.8 F H 94 18 139/67 92 09/22/16 20:01 18 92 09/22/16 16:39 98.6 F 90 18 136/70 91 09/22/16 15:46 16 136/70 92 09/22/16 15:26 90 09/22/16 11:31 98.9 F 104 18 138/69 94 09/22/16 11:25 89 Intake and Output 09/22/16 09/23/16 09/23/16 23:59 07:59 15:59 Intake Total 100 / 100 100 / 100 Output Total 50 / 50 1070 / 1070 Balance 50 / 50 -970 / -970 Intake: IV Fluids 100 / 100 100 / 100 Cubicin 580.8 MG In 0.9 % 100 / 100 Sodium Chloride 100 ML @ 200 mls/hr IVPB Q48H [facility] Rx#:[id number] Merrem 500 MG In 0.9 % 100 / 100 Sodium Chloride (Mini-Bag +) 100 ML @ 200 mls/hr IVPB Q24H [facility] Rx#: [id number] Output: Stool 1000 / 1000 Catheter 50 / 50 70 / 70 Other: Weight 91.7 kg Blood Glucose* 341 254 Patient Weight 09/23/16 23:59 Weight 91.7 kg - General Appearance General appearance: Present: well-developed, well-nourished EENT: Present: ATNC Neck: Present: supple Respiratory: Present: course breath sounds, rhonchi Cardiology: Present: edema, regular rate Gastrointestinal: Present: no tenderness Integumentary: Present: warm and dry Psychiatric: Present: mood/affect appropriate - Lab 09/23/16 04:05 09/23/16 04:05 Most recent lab results ABG pH 7.39 pH Units (7.32-7.45) 09/13/16 21:19 ABG pCO2 45 mmHg (35-45) 09/13/16 21:19 ABG pO2 79 mmHg (85-104) L 09/13/16 21:19 ABG HCO3 27.2 mEQ/L (21-27) H 09/13/16 21:19 ABG O2 Saturation 95 % (95-98) 09/13/16 21:19 Calcium 8.1 mg/dL (8.6-10.8) L 09/23/16 04:05 Phosphorus 2.1 mg/dL (2.3-4.7) L 09/23/16 04:05 Magnesium 1.7 mg/dL (1.6-2.6) 09/22/16 08:50 Urine Creatinine 40 mg/dL 08/25/16 13:19 Urine Sodium 30.0 mEq/L 08/25/16 13:19 Urine Total Protein 22 mg/dL (1-14) H 08/24/16 14:18 - VTE Documentation of Mechanical Device: Intermittent pneumatic compression device Consult Discharge Plan - Plan Referrals: Edith Peña CNP [Advanced Practice Nurse] - 09/26/16 10:15 am Kj Yost MD [Partnered Physician] - Therese Garcia CNP [Primary Care Provider] - () Prudence Escobedo MD [Partnered Physician] - 10/11/16 3:50 pm ()
--- NOTE | 2016-09-23 14:20 | Event Note ---
Date of Encounter: 09/23/16 Time of Encounter: 14:17 Non Candidal fungal elements noted in sputum cultures -being sent to reference facitlity for further processing. Concerning for Pulmonary Aspergillosis or Histoplasmosis given nodules seen on Ct scan. Recommend starting empiric Voriconazole pending serologies/culture. Case d/w ID attending Dr Sanchez and Pharmacist. I also updated the primary medicine attending. I do not feel that bronchoscopy will add much to diagnosis and so will hold on planned procedure tomorrow pending results of serological and micro testing.
[2016-09-23] MEDS: Miconazole w/zinc oxide&karaya 92 APPL/92 GM TUBE TP SCH ×3 (14:41→22:15)
[2016-09-23] MEDS: Nystatin POWDER 30 GM BOTTLE TP SCH ×3 (14:41→22:15)
[2016-09-23] MEDS ORDERED: 0.9 % Sodium Chloride 2,000 ML ONE (16:07)
[2016-09-23] MEDS: SODIUM CHLORIDE 0.9% IVPB SCH (16:46)
[2016-09-23] MEDS: VORICONAZOLE IVPB SCH (16:46)
[2016-09-23] MEDS: *HR* Metoprolol 5 MG/5 ML VIAL IVP PRN (16:46)
[2016-09-23] MEDS: Meropenem 500 MG in 0.9 % Sodium Chloride Mini Bag 100 ML IVPB SCH (16:47)
[2016-09-23] MEDS: Zinc Oxide 454 GM EACH TP PRN (16:54)
--- NOTE | 2016-09-23 17:46 | Internal Med Progress Note ---
Date of Encounter: 09/23/16 Time of Encounter: 17:44 - Assessment and plan (1) Acute and chronic respiratory failure ([id number]) Current Visit: Yes Status: Acute Assessment and plan: Secondary to COPDE/CHFE/Afib and suspected septic emboli in lungs. Patient uses [address] Chest 09/13 revealed bilateral lower lobe septic emboli as well as multiple small nodular right lung lesions, 1 is a cavitary nodule. suspicious for septic emboli. 09/20: Worsening hypoxia. Patient had HD 09/19 and 09/20 with removal of ~4L. Now requiring [address] chest showed overall worsening of ill-defined bilateral nodular infiltrates, primarily in the right upper lobe. Antibiotics switched to meropenem and daptomycin. 09/23: Appreciate pulmonary and ID input. Still high oxygen requirements (10L high flow nasal cannula). start voriconazole. sputum culture growing fungal element. Continue empiric antibiotics with meropenem and daptomycin, nebs, oxygen supplementation, and BIPAP at bedtime. Qualifiers: Respiratory failure complication: hypoxia Qualified Code(s): J96.21 - Acute and chronic respiratory failure with hypoxia (2) Bacteremia due to Enterococcus Current Visit: Yes Status: Acute Assessment and plan: 09/07 Patient has a Right dialysis CVC placed 09/08 Blood culture drawn due to leukocytosis and grew VRE 05/08 set 09/09 started on IV Zyvox. 09/11 Blood cultures, peripherally are negative 09/13 blood cultures x1 from Right Dialysis CVC grew Staphylococcus hominis. peripheral blood cultures NGTD. 09/15 Dialysis catheter was removed, tip culture NGTD. CT chest findings suggestive of septic emboli. consult [employer]ING C[employer]TER. started on cefepime and continue on Zyvox day 7. 09/16 Unsuccessful VIC attempt. Peripheral blood cultures negative. 09/19: Ct abdomen and pelvis shows increase in size of nodular densities within the right middle lobe most compatible with pneumonia, unchanged in size heterogeneous elongated focus within the right psoas muscle suspicious for hematoma. 09/23 persistent low grade fevers. start Voriconazole. Continue empiric Meropenem and Daptomycin (start date 09/20). (3) Acute kidney injury superimposed on CKD Current Visit: Yes Status: Acute Assessment and plan: s/p Right CVC and HD 09/07, 09/08, 09/09, 09/12, 09/14. 09/19: s/p dialysis catheter. HD 09/19, 09/20. Appreciate nephrology input. close monitoring. avoid nephrotoxic agents as possible. HD today (4) GIB (gastrointestinal bleeding) Current Visit: Yes Status: Acute Assessment and plan: Secondary to colonic angiodysplasia in the setting of anticoagulation s/p hemicolectomy 09/06 POD 8, Appreciate surgery input. 09/08 Hgb at 6.5 post-surgery, she Received 2 units PRBCS 09/14 Hgb dropped to 7.4, transfused 2 units of PRBC during dialysis. fecal occult blood test. 09/15: Pt had CT abdomen and pelvis showing an elongated hyperdense collection within the right psoas muscle. consider hematoma, phlegmon or mass. 09/20 hgb is 7.6. transfuse 1 unit PRBC during HD. close monitor. No external bleeding. Qualifiers: GI bleed type/associated pathology: unspecified gastrointestinal hemorrhage type Qualified Code(s): K92.2 - Gastrointestinal hemorrhage, unspecified (5) Angiodysplasia of colon Current Visit: Yes Status: Acute Assessment and plan: plan as GI bleed (6) Atrial fibrillation with RVR Current Visit: Yes Status: Acute Assessment and plan: 09/11 she developed Refractory Aflutter requiring cardizem drip, cardiology was consulted 09/14: Hgb dropped to 7.4 and fecal occult blood is positive, stop heparin drip. 09/15: switched to oral metoprolol 09/23: oral metoprolol and IV metoprolol prn. (7) CHF (congestive heart failure) Current Visit: Yes Status: Chronic Assessment and plan: plan as above Qualifiers: Congestive heart failure type: diastolic Congestive heart failure chronicity: chronic Qualified Code(s): I50.32 - Chronic diastolic (congestive ) heart failure (8) CKD (chronic kidney disease) stage 4, GFR 15-29 ml/min Current Visit: Yes Status: Chronic Assessment and plan: As in ELLE on CKD (9) Diabetes mellitus Current Visit: Yes Status: Chronic Assessment and plan: DM with Hyperglycemia possibly secondary to Starting TPN 09/15: off TPN and insulin drip. 09/17: Glucose level of 63 at 4 AM. 09/23: Fasting glucose 254. patient is eating more. increase levemir to 10 bid. continue insulin sliding scale. diabetic diet. Qualifiers: Diabetes mellitus type: type 2 Diabetes mellitus complication status: with kidney complications Diabetes mellitus complication detail: with chronic kidney disease Diabetes mellitus long term care administrator insulin use: unspecified skilled nursing insulin use status Chronic kidney disease stage: stage 4 (severe) Qualified Code(s): E11.22 - Type 2 diabetes mellitus with diabetic chronic kidney disease ; N18.4 - Chronic kidney disease, stage 4 (severe) (10) Oropharyngeal dysphagia Current Visit: Yes Status: Acute Assessment and plan: unable to perform VIC Continue mechanically altered diet. Barium swallow study toMorrow (11) Acute metabolic encephalopathy Current Visit: Yes Status: Acute Assessment and plan: Multifactorial due to infection, prolonged hospitalization brought, age, suspected early signs of dementia at home, recent surgery. Continue Seroquel 12.5 mg at bedtime only. Treat underlying etiology. - Subjective Interval history: Patient reports productive cough. - Constitutional Vitals: Temp Pulse Resp BP Pulse Ox 98.2 F 112 16 153/114 93 09/23/16 16:26 09/23/16 16:26 09/23/16 16:41 09/23/16 16:26 09/23/16 16:41 General appearance: Present: cooperative, A&O X 3, pleasant, no acute distress, obese, answers questions appropriately - Neck Neck exam general surgery: Present: supple, trachea midline. Absent: lymphadenopathy - Cardiovascular Cardiovascular exam: Present: tachycardia - GI/Abdominal GI/Abdominal exam: Present: normal bowel sounds, soft. Absent: distended, tenderness - Extremities Exam Extremities exam: Absent: pedal edema - Neurological Exam Neurological exam: Present: alert, oriented X3. Absent: facial droop, speech deficit Internal Medicine: Result - Labs CBC & Chem 7: 09/23/16 04:05 09/23/16 04:05 Labs: Short CBC 09/23/16 Range/Units 04:05 WBC 3.3 L (4.3-11.1) K/mcL Hgb 7.3 L (11.5-15.4) g/dL Hct 23.2 L (35.3-44.9) % Plt Count 46 L (140-400) K/mcL Neutrophils # 2.2 (1.6-8.9) K/mcL BMP 09/23/16 04:05 Sodium 132 L Potassium 3.5 Chloride 98 Carbon Dioxide 24 BUN 47 H Creatinine 3.56 H Glucose 210 H Calcium 8.1 L - ABG Interpretation ABG results: ABG ABG pH 7.39 pH Units (7.32-7.45) 09/13/16 21:19 ABG pCO2 45 mmHg (35-45) 09/13/16 21:19 ABG pO2 79 mmHg (85-104) L 09/13/16 21:19 ABG O2 Saturation 95 % (95-98) 09/13/16 21:19 PT/INR, D-dimer PT 11.1 Seconds (9.4-12.1) 09/18/16 04:38 - VTE Documentation of Mechanical Device: Intermittent pneumatic compression device Consult Discharge Plan - Plan Referrals: Edith Peña CNP [Advanced Practice Nurse] - 09/26/16 10:15 am Kj Yost MD [Partnered Physician] - Therese Garcia CNP [Primary Care Provider] - () Prudence Escobedo MD [Partnered Physician] - 10/11/16 3:50 pm ()
[2016-09-23 17:52] LABS: A.galactomannan Ag Index 0.07
[2016-09-23] MEDS: Budesonide/Formoterol 160/4.5 MDI IH SCH (20:45)
[2016-09-23] MEDS: *HR* Acetaminophen w/Cod 300-30 mg 1 TAB TABLET PO PRN (21:14)
[2016-09-23] MEDS: *HR* LORazepam 0.5 MG TABLET PO PRN (22:15)
[2016-09-24] MEDS: Ipratropium/Albuterol Neb 3 ML IH SCH ×6 (00:53→22:01)
[2016-09-24] MEDS ORDERED: Haloperidol Lactate 5 MG/ML VIAL IVP ONE (01:01)
[2016-09-24 04:22] LABS: Hemoglobin 8.5 g/dL (11.5-15.4); Red Cell Distribution Width 15.7 % (11.5-14.5)
[2016-09-24 04:24] LABS: Hematocrit 26.4 % (35.3-44.9); Immature Platelets 9.2 % (1.1-6.1); Mean Corpuscular HGB Conc 32.2 g/dL (31.6-35.5); Mean Corpuscular Volume 90.1 fL (83.0-100.0); Mean Platelet Volume 12.1 fL (9.4-12.4); Monocytes # 0.3 K/mcL (0.0-1.3); Red Blood Count 2.93 M/mcL (3.82-4.97)
[2016-09-24 04:25] LABS: Platelet Count 48 K/mcL (140-400)
[2016-09-24 04:42] LABS: Calcium 7.5 mg/dL (8.6-10.8); Magnesium 1.2 mg/dL (1.6-2.6); Phosphorous 1.5 mg/dL (2.3-4.7); Potassium 3.3 mEq/L (3.5-4.5)
[2016-09-24 05:03] LABS: Lymphocytes # 0.9 K/mcL (0.6-4.6); Neutrophils # 3.2 K/mcL (1.6-8.9)
[2016-09-24 05:04] LABS: Platelet Estimate Decreased (Normal); Reactive Lymphocytes Present (Not Present)
[2016-09-24] MEDS: SODIUM CHLORIDE 0.9% IVPB SCH ×2 (05:59→18:36)
[2016-09-24] MEDS: VORICONAZOLE IVPB SCH (05:59)
--- NOTE | 2016-09-24 07:02 | Pulmonology Progress Note ---
Date of Encounter: 09/24/16 Time of Encounter: 07:02 Assessment and Plan (1) Lung nodules Current Visit: Yes Status: Acute Bilateral right upper lobe predominant ulnar nodules with concern for fungal pneumonia. I suspect this either represents Histoplasma or Aspergillus. I had an extensive conversation with the infectious disease attending yesterday and we are in agreement on the need for empiric antifungal therapy pending further laboratory data. She is on appropriate empiric antimicrobial therapy at this time we will follow up on blood serologies to further buttress our preliminary diagnosis. Given CT findings sputum culture and positive serologies I think that diagnosis would be confirmed without the need for additional invasive testing i.e. bronchoscopy Additional infections of been considered including nontuberculous mycobacterium and cryptococcal pneumonia however preliminary investigations into both of these infections of been negative The patient remains high risk to undergo endoscopic procedure and in speaking with the family today they felt that they wanted this to be "last resort" plan. 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 From a standpoint of COPD patient has schedule bronchodilators and I have added ICS/LABA to regimen. I do not feel that enteral steroids are necessary would favor stopping (if not done already). Cont NiPPV at night and as needed for worsening hypoxia. Overall prognosis is guarded would also consider consultation with palliative care service for ongoing goals of care discussion. Pulmonary will continue to follow (2) Acute exacerbation of chronic obstructive airways disease Current Visit: Yes Status: Acute (3) Pneumonia Current Visit: No Status: Acute Qualifiers: Pneumonia type: due to unspecified organism Laterality: bilateral Lung location: unspecified part of lung Qualified Code(s): J18.9 - Pneumonia, unspecified organism (4) CHF (congestive heart failure) Current Visit: Yes Status: Chronic Qualifiers: Congestive heart failure type: diastolic Congestive heart failure chronicity: chronic Qualified Code(s): I50.32 - Chronic diastolic (congestive ) heart failure Subjective Principal diagnosis: ELLE on CKD, COPD, PAF Interval history: She has been hemodynamically stable overnight. She underwent dialysis with volume removal yesterday. Sputum culture positive for fungal as elements and I spoke with a microbiological staff who said that this did not represent candidal infection. Sputum's culture has been sent to a reference laboratory for further evaluation. Patient was started on empirical treatment for fungal pneumonia with voriconazole. The daughter was in the room when I entered and we spoke for some time about possibility of fungal pneumonia and ongoing therapy. I said I had a high index of suspicion that this was in fact a fungal infection that would need to wait for final diagnosis based upon reference laboratory evaluation and blood serologies nevertheless I felt it prudent to start treatment at this time. If confirmed she would need a prolonged course of antifungal therapy however I told her I felt it was too early to comment on the specifics of this at this time. Objective PUL Vital signs: Last Vital Signs Temp 97.8 F 09/24/16 03:55 Pulse 83 09/24/16 03:55 Resp 18 09/24/16 05:23 BP 143/75 09/24/16 03:55 Pulse Ox 97 09/24/16 05:23 General appearance: lethargic Auscultation: bilateral: diminished breath sounds, rhonchi Cardiovascular: irregular rhythm Gastrointestinal: non-tender Extremities: edema Results - Laboratory Findings CBC and BMP: 09/24/16 04:10 09/24/16 04:10 ABG ABG pH 7.39 pH Units (7.32-7.45) 09/13/16 21:19 ABG pCO2 45 mmHg (35-45) 09/13/16 21:19 ABG pO2 79 mmHg (85-104) L 09/13/16 21:19 ABG O2 Saturation 95 % (95-98) 09/13/16 21:19 PT/INR, D-dimer PT 11.1 Seconds (9.4-12.1) 09/18/16 04:38 Abnormal lab findings: Abnormal lab results RBC 2.93 M/mcL (3.82-4.97) L 09/24/16 04:10 Hgb 8.5 g/dL (11.5-15.4) L 09/24/16 04:10 Hct 26.4 % (35.3-44.9) L 09/24/16 04:10 RDW 15.7 % (11.5-14.5) H 09/24/16 04:10 Plt Count 48 K/mcL (140-400) L 09/24/16 04:10 Immature Gran % 8.5 % (0-4) H 09/23/16 04:05 Band Neutrophils % 6.0 % (0-4) H 09/24/16 04:10 Metamyelocytes % 2.0 % (0) H 09/24/16 04:10 Nucleated RBCs/100 WBC 0.5 /100 WBC (0) H 09/13/16 04:25 Reactive Lymphocytes Present (Not Present) A 09/24/16 04:10 Toxic Granulation Present (Not Present) A 09/18/16 04:38 Platelet Estimate Decreased (Normal) L 09/24/16 04:10 Large Platelets Present (Not Present) A 09/23/16 04:05 Immature Plt Fraction 9.2 % (1.1-6.1) H 09/24/16 04:10 Polychromasia 1+ (Not Present) A 09/16/16 03:10 Hypochromasia Present (Not Present) A 09/22/16 03:50 Basophilic Stippling 2+ (Not Present) A 09/14/16 03:00 Anisocytosis 1+ (Not Present) A 09/16/16 03:10 APTT 60.5 Seconds (26.0-36.0) H D 09/14/16 18:20 Heparin Anti-Xa, Unfract 1.06 IU/mL (0.30-0.70) H* 09/14/16 03:00 ABG pO2 79 mmHg (85-104) L 09/13/16 21:19 ABG HCO3 27.2 mEQ/L (21-27) H 09/13/16 21:19 ABG Total CO2 28.6 mEq/L (20-26) H 09/13/16 21:19 Potassium 3.3 mEq/L (3.5-4.5) L 09/24/16 04:10 Creatinine 1.96 mg/dL (0.57-1.11) H 09/24/16 04:10 Est GFR ( Amer) 30 (> 60) L 09/24/16 04:10 Est GFR (Non-Af Amer) 25 (> 60) L 09/24/16 04:10 Glucose 242 mg/dL (70-99) H 09/24/16 04:10 POC Glucose 280 (58-89) H 09/23/16 20:49 Uric Acid 10.4 mg/dL (2.6-6.0) H 08/25/16 12:10 Calcium 7.5 mg/dL (8.6-10.8) L 09/24/16 04:10 Phosphorus 1.5 mg/dL (2.3-4.7) L 09/24/16 04:10 Magnesium 1.2 mg/dL (1.6-2.6) L 09/24/16 04:10 Creatine Kinase 12 Units/L (29-168) L 09/20/16 15:20 Troponin I 0.25 ng/mL (0-0.03) H* 09/08/16 11:50 B-Natriuretic Peptide 241 pg/mL (0-100) H 09/17/16 04:00 Serum Total Protein 5.3 g/dL (6.0-8.3) L 09/22/16 08:50 Albumin 1.7 g/dL (3.5-5.0) L 09/22/16 08:50 Globulin 3.6 g/dL (2.4-3.5) H 09/22/16 08:50 Albumin/Globulin Ratio 0.5 (1.1-2.2) L 09/22/16 08:50 TSH 0.028 mcIU/mL (0.350-4.840) L 08/25/16 16:51 Urine Protein 30 mg/dL (Neg-Trace) H 09/18/16 18:20 Urine Glucose (UA) 250 mg/dL (Normal) H 09/18/16 18:20 Urine Blood Small (Negative) H 09/18/16 18:20 Ur Leukocyte Esterase Trace (Negative) H 09/18/16 18:20 Urine Microscopic RBC 5-15 per hpf (0-3) H 09/18/16 18:20 Urine Microscopic WBC 5-15 per hpf (0-3) H 09/18/16 18:20 Ur Squamous Epith Cells Many per lpf (None-Few) H 09/18/16 18:20 Urine Yeast Many per hpf (None Seen) H 09/18/16 18:20 Ur Culture Indicated? YES (NO) A 09/18/16 18:20 Protein/Creatinin Ratio 0.42 mg/mg (0-0.20) H 08/24/16 14:18 Urine Total Protein 22 mg/dL (1-14) H 08/24/16 14:18 Stool Occult Blood Positive (Negative) A 09/14/16 16:11 Staphylococcus sp PCR DETECTED (Not Detect) A 09/13/16 15:40 mecA-Methicil Res Gene DETECTED (Not Detect) A 09/13/16 15:40 - Microbiology Findings Microbiology Findings: Microbiology, Last 48 Hours 09/21/16 17:45 Respiratory Culture - Preliminary Other-Specify in Comments Fungal Elements 09/21/16 17:45 Acid Fast Stain - Final Sputum 09/21/16 18:20 Cryptococcal Antigen - Final Serum - Clinical Findings Intake & Output: Intake & Output 09/23/16 09/23/16 09/24/16 15:59 23:59 07:59 Intake Total 700 / 700 250 / 250 Output Total 2900 / 2900 260 / 260 Balance -2200 / -2200 -10 / -10 Weight 91.7 kg 91.8 kg - VTE Documentation of Mechanical Device: Intermittent pneumatic compression device Consult Discharge Plan - Plan Referrals: Edith Peña CNP [Advanced Practice Nurse] - 09/26/16 10:15 am Kj Yost MD [Partnered Physician] - Therese Garcia CNP [Primary Care Provider] - () Prudence Escobedo MD [Partnered Physician] - 10/11/16 3:50 pm ()
[2016-09-24] MEDS ORDERED: Magnesium Sulfate 2 GM in D5% in Water 100 ML IVPB ONE (07:39)
[2016-09-24] MEDS: Budesonide/Formoterol 160/4.5 MDI IH SCH ×2 (07:53→22:00)
[2016-09-24] MEDS: Furosemide 40 MG TABLET PO SCH (08:52)
[2016-09-24] MEDS: Pantoprazole 40 MG VIAL IVP SCH (08:53)
[2016-09-24] MEDS: Insulin DETEMIR 100 UNIT/ML X5UNITS SQ SCH ×2 (08:53→21:36)
[2016-09-24] MEDS: Nystatin SUSP 5 ML UD.LIQ PO SCH ×4 (08:53→21:36)
[2016-09-24] MEDS: Magnesium Oxide 400 MG TABLET PO SCH ×2 (08:53→21:36)
[2016-09-24] MEDS: Nystatin POWDER 30 GM BOTTLE TP SCH ×3 (08:54→21:37)
[2016-09-24] MEDS: Miconazole w/zinc oxide&karaya 92 APPL/92 GM TUBE TP SCH ×3 (08:54→21:37)
[2016-09-24] MEDS: Insulin LISPRO 300 UNITS/3 ML VIAL SQ SCH ×4 (08:56→21:37)
--- NOTE | 2016-09-24 09:16 | General Surgery Progress Note ---
Date of Encounter: 09/26/16 Time of Encounter: 07:30 - Assessment and Plan (1) Angiodysplasia of colon Current Visit: Yes Status: Acute POD #18 Extended right hemicolectomy with lysis of adhesions times [address] Moy. 09/13 positive blood cultures growing gram-positive cocci CT scan of the chest suggests possible septic emboli. Abdominal CT shows an elongated hyperdense collection within the right psoas muscle. US right flank unremarkable. Patient has no abdominal tenderness, incision is clean and dry. Patient's daughter reports multiple BM and flatus, bowel sounds present on exam. Lung sounds demonstrate mild crackles bilaterally throughout Patient was tolerating a mechanically soft diet, eating more, has an increased appetite. Patient has been having liquid bowel movements, flat disks, bowel sounds present. Patient has been advanced to mechanically altered diet, she is tolerating it and is eating most of her meals including the milkshake. She no longer has pain after eating. The patient faces nutritional challenges, will continue with calorie counts. She may require PEG tube to augment her nutrition in the future. Plan: -Continue to encourage oral intake -Encourage incentive spirometry when up. -Continue mechanically soft diet -Maintain Watkins catheter for strict I and O's -Daily dressing change -PPI therapy daily (2) Acute and chronic respiratory failure ([id number]) Current Visit: Yes Status: Acute IS every 1 hour while awake Aggressive pulmonary toilet Continue aerosol treatments as ordered Wean oxygen as tolerated Management per medicine service Qualifiers: Respiratory failure complication: hypoxia Qualified Code(s): J96.21 - Acute and chronic respiratory failure with hypoxia (3) Acute kidney injury superimposed on CKD Current Visit: Yes Status: Acute Plan: -IV fluids -Avoid nephrotoxic medications -Continue Watkins catheter for strict I's and O's -Nephrology following- hemodialysis (4) Insulin dependent type 2 diabetes mellitus Current Visit: Yes Status: Chronic Continue to manage per medicine team (5) DVT prophylaxis Current Visit: Yes Status: Acute Continue EPCDs to bilateral lower extremities for DVT prophylaxis Continue heparin 5,000 units SQ twice daily for DVT prophylaxis Subjective Patient reports: no new complaints, feels better, pain is less, tolerating a regular diet, voiding w/o difficulty, flatus, bowel movement, afebrile Narrative: Patient was seen and examined. She is tolerating her mechanical diet well with improved appetite. Patient reports feeling much better after having dialysis. She denies nausea or vomiting. She endorses abdominal tenderness of the right lower quadrant that has been gradually improving. Objective Vital Signs - Last 8 Hours Temp Pulse Resp BP Pulse Ox 09/24/16 08:09 98.3 F 99 20 174/78 90 09/24/16 07:55 20 91 09/24/16 05:23 18 97 09/24/16 03:55 97.8 F 83 21 143/75 95 Intake and Output 09/23/16 09/24/16 09/24/16 23:59 07:59 15:59 Intake Total 250 / 250 Output Total 260 / 260 Balance -10 Intake: IV Fluids 250 / 250 VFend 550 MG In 0.9 % 250 / 250 Sodium Chloride 250 ML @ 125 mls/hr IVPB Q12HR [facility] Rx#:[id number] Output: Urine 125 / 125 Urethral (Watkins) 125 / 125 Catheter 135 / 135 Other: Weight 91.8 kg Blood Glucose* 280 187 Patient Weight 09/24/16 23:59 Weight 91.8 kg - General physical appearance no distress, moderate pain, chronically ill, obese - Eyes PERRL, normal ocular movement - ENT normal nares, normal mucosa, atraumatic, normocephalic, CN 2-12 grossly intact - Neck Neck exam: trachea midline, no venous distension - Respiratory wheezing: bilateral - Cardiovascular Cardiovascular exam: Present: irregular rhythm, no murmurs/rubs/gallops. Absent : JVD - Abdomen Abdomen: Present: bowel sounds present, soft, tender (Right lower quadrant to palpation resolving hematoma). Absent: masses - Incision Incision: Present: draining, intact (Hardesty in place), serosanguinous - Rectum no bleeding, other (Rectal tube is in place.) - Integumentary no rash - Neurologic normal coordination, normal sensation - Musculoskeletal normal posture - Psychiatric oriented to time, oriented to person, oriented to place, speech is normal - Labs 09/26/16 04:00 09/26/16 04:00 Diabetes panel 09/24/16 Range/Units 04:10 Sodium 140 D (136-145) mEq/L Potassium 3.3 L (3.5-4.5) mEq/L Chloride 108 (98-109) mEq/L Carbon Dioxide 24 (19-29) mEq/L BUN 19 D (7-20) mg/dL Creatinine 1.96 H (0.57-1.11) mg/dL Glucose 242 H (70-99) mg/dL Calcium 7.5 L (8.6-10.8) mg/dL Calcium panel 09/24/16 Range/Units 04:10 Calcium 7.5 L (8.6-10.8) mg/dL Phosphorus 1.5 L (2.3-4.7) mg/dL Pituitary panel 09/24/16 Range/Units 04:10 Sodium 140 D (136-145) mEq/L Potassium 3.3 L (3.5-4.5) mEq/L Chloride 108 (98-109) mEq/L Carbon Dioxide 24 (19-29) mEq/L BUN 19 D (7-20) mg/dL Creatinine 1.96 H (0.57-1.11) mg/dL Glucose 242 H (70-99) mg/dL Calcium 7.5 L (8.6-10.8) mg/dL Adrenal panel 09/24/16 Range/Units 04:10 Sodium 140 D (136-145) mEq/L Potassium 3.3 L (3.5-4.5) mEq/L Chloride 108 (98-109) mEq/L Carbon Dioxide 24 (19-29) mEq/L BUN 19 D (7-20) mg/dL Creatinine 1.96 H (0.57-1.11) mg/dL Glucose 242 H (70-99) mg/dL Calcium 7.5 L (8.6-10.8) mg/dL - VTE Documentation of Mechanical Device: Intermittent pneumatic compression device Consult Discharge Plan - Plan Referrals: Edith Peña CNP [Advanced Practice Nurse] - 09/26/16 10:15 am Kj Yost MD [Partnered Physician] - Therese Garcia CNP [Primary Care Provider] - () Prudence Escobedo MD [Partnered Physician] - 10/11/16 3:50 pm () - Attending Attestation I examined this patient and my medical decision-making was reviewed with the ELECTRIC CLOCK MECHANIC/PA/Advanced Practice Nurse/Resident Physician. I agree with the documented findings, disposition and treatment plan as described except to the extent set forth below. I reviewed the above assessment and examination with the wedding planning internship present. I agree with the overall plan. Continue calorie count. No other recommendations at this time.
[2016-09-24] MEDS: *HR* Acetaminophen w/Cod 300-30 mg 1 TAB TABLET PO PRN ×2 (09:53→18:37)
--- NOTE | 2016-09-24 10:48 | Internal Med Progress Note ---
Date of Encounter: 09/24/16 Time of Encounter: 07:30 - Assessment and plan (1) Acute and chronic respiratory failure ([id number]) Current Visit: Yes Status: Acute Assessment and plan: Secondary to COPDE/CHFE/Afib and suspected fungal septic emboli in lungs. Patient uses [address] Chest 09/13 revealed bilateral lower lobe septic emboli as well as multiple small nodular right lung lesions, 1 is a cavitary nodule. suspicious for septic emboli. 09/20: Worsening hypoxia. Patient had HD 09/19 and 09/20 with removal of ~4L. Now requiring [address] chest showed overall worsening of ill-defined bilateral nodular infiltrates, primarily in the right upper lobe. Antibiotics switched to meropenem and daptomycin. 09/23: sputum culture growing fungal element. 09/24: Appreciate pulmonary and ID input. Still high oxygen requirements (8L high flow nasal cannula). continue voriconazole, meropenem and daptomycin, nebs , oxygen supplementation, and BIPAP at bedtime. Qualifiers: Respiratory failure complication: hypoxia Qualified Code(s): J96.21 - Acute and chronic respiratory failure with hypoxia (2) Bacteremia due to Enterococcus Current Visit: Yes Status: Acute Assessment and plan: 09/07 Patient has a Right dialysis CVC placed 09/08 Blood culture drawn due to leukocytosis and grew VRE 05/08 set 09/09 started on IV Zyvox. 09/11 Blood cultures, peripherally are negative 09/13 blood cultures x1 from Right Dialysis CVC grew Staphylococcus hominis. peripheral blood cultures NGTD. 09/15 Dialysis catheter was removed, tip culture NGTD. CT chest findings suggestive of septic emboli. 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 started on cefepime and continue on Zyvox day 7. 09/16 Unsuccessful VIC attempt. Peripheral blood cultures negative. 09/19: Ct abdomen and pelvis shows increase in size of nodular densities within the right middle lobe most compatible with pneumonia, unchanged in size heterogeneous elongated focus within the right psoas muscle suspicious for hematoma. 09/24 temp curve is trending down. Continue Voriconazole (start date 09/23), Meropenem and Daptomycin (start date 09/20). (3) Acute kidney injury superimposed on CKD Current Visit: Yes Status: Acute Assessment and plan: s/p Right CVC and HD 09/07, 09/08, 09/09, 09/12, 09/14. 09/19: s/p dialysis catheter. HD 09/19, 09/20, 09/23. Appreciate nephrology input. close monitoring. avoid nephrotoxic agents as possible. (4) Anemia Current Visit: Yes Status: Chronic Assessment and plan: On admission, patient had blood loss anemia due to colonic angiodysplasia in the setting of anticoagulationG. She underwent hemicolectomy 09/06 09/20 hgb is 7.6. transfuse 1 unit PRBC during HD. close monitor. No external bleeding. 09/23: Hb at 7.3. she received 1 unit PRBC. Hgb is 8.5. no external bleeding. close monitor. Qualifiers: Anemia type: iron deficiency Iron deficiency anemia type: unspecified iron deficiency Qualified Code(s): D50.9 - Iron deficiency anemia, unspecified (5) GIB (gastrointestinal bleeding) Current Visit: Yes Status: Acute Assessment and plan: Secondary to colonic angiodysplasia in the setting of anticoagulation s/p hemicolectomy 09/06 Appreciate surgery input. 09/08 Hgb at 6.5 post-surgery, she Received 2 units PRBCS 09/14 Hgb dropped to 7.4, transfused 2 units of PRBC during dialysis. fecal occult blood test. 09/15: Pt had CT abdomen and pelvis showing an elongated hyperdense collection within the right psoas muscle. consider hematoma, phlegmon or mass. Qualifiers: GI bleed type/associated pathology: unspecified gastrointestinal hemorrhage type Qualified Code(s): K92.2 - Gastrointestinal hemorrhage, unspecified (6) Angiodysplasia of colon Current Visit: Yes Status: Acute Assessment and plan: plan as GI bleed (7) Atrial fibrillation with RVR Current Visit: Yes Status: Acute Assessment and plan: 09/11 she developed Refractory Aflutter requiring cardizem drip, cardiology was consulted 09/14: Hgb dropped to 7.4 and fecal occult blood is positive, stop heparin drip. 09/15: switched to oral metoprolol continue oral metoprolol and IV metoprolol prn. (8) CHF (congestive heart failure) Current Visit: Yes Status: Chronic Assessment and plan: plan as above Qualifiers: Congestive heart failure type: diastolic Congestive heart failure chronicity: chronic Qualified Code(s): I50.32 - Chronic diastolic (congestive ) heart failure (9) CKD (chronic kidney disease) stage 4, GFR 15-29 ml/min Current Visit: Yes Status: Chronic Assessment and plan: As in [place] on CKD (10) Diabetes mellitus Current Visit: Yes Status: Chronic Assessment and plan: DM with Hyperglycemia possibly secondary to Starting TPN 09/15: off TPN and insulin drip. 09/17: Glucose level of 63 at 4 AM. 09/24: Fasting glucose is better at 187. patient is eating more. continue levemir 10 bid. continue insulin sliding scale. diabetic diet. Qualifiers: Diabetes mellitus type: type 2 Diabetes mellitus complication status: with kidney complications Diabetes mellitus complication detail: with chronic kidney disease Diabetes mellitus terminal operator insulin use: unspecified terminal operator insulin use status Chronic kidney disease stage: stage 4 (severe) Qualified Code(s): E11.22 - Type 2 diabetes mellitus with diabetic chronic kidney disease ; N18.4 - Chronic kidney disease, stage 4 (severe) (11) Oropharyngeal dysphagia Current Visit: Yes Status: Resolved Assessment and plan: unable to perform VIC patient passed barium swallow study 09/19 (12) Acute metabolic encephalopathy Current Visit: Yes Status: Acute Assessment and plan: Multifactorial due to infection, prolonged hospitalization brought, age, suspected early signs of dementia at home, recent surgery. Continue Seroquel 12.5 mg at bedtime only. Treat underlying etiology. - Subjective Interval history: patient reports shortness of breath on minimal exertion. She becomes very hypoxic overnight and her oxygen was bumped up to 12 liters high flow nasal cannula. - Constitutional Vitals: Temp Pulse Resp BP Pulse Ox 98.3 F 84 20 174/78 90 09/24/16 08:09 09/24/16 10:16 09/24/16 08:09 09/24/16 08:09 09/24/16 08:09 General appearance: Present: cooperative, A&O X 3, pleasant, no acute distress, obese, answers questions appropriately - Neck Neck exam general surgery: Present: supple, trachea midline - Respiratory Respiratory exam: Present: wheezes (diffuse wheezes bilaterally) - Cardiovascular Cardiovascular exam: Present: RRR - GI/Abdominal GI/Abdominal exam: Present: normal bowel sounds, soft. Absent: distended, tenderness Additional comments: surgical wound with some serosanguinolent drainage. - Extremities Exam Extremities exam: Present: pedal edema (upper extremities swelling.) - Neurological Exam Neurological exam: Present: alert, oriented X3, no focal deficits, strengths equal and symetr throughout. Absent: facial droop, speech deficit Internal Medicine: Result - Labs CBC & Chem 7: 09/24/16 04:10 09/24/16 04:10 Labs: Short CBC 09/24/16 Range/Units 04:10 WBC 4.4 (4.3-11.1) K/mcL Hgb 8.5 L (11.5-15.4) g/dL Hct 26.4 L (35.3-44.9) % Plt Count 48 L (140-400) K/mcL Neutrophils # 3.2 (1.6-8.9) K/mcL BMP 09/24/16 04:10 Sodium 140 D Potassium 3.3 L Chloride 108 Carbon Dioxide 24 BUN 19 D Creatinine 1.96 H Glucose 242 H Calcium 7.5 L - ABG Interpretation ABG results: ABG ABG pH 7.39 pH Units (7.32-7.45) 09/13/16 21:19 ABG pCO2 45 mmHg (35-45) 09/13/16 21:19 ABG pO2 79 mmHg (85-104) L 09/13/16 21:19 ABG O2 Saturation 95 % (95-98) 09/13/16 21:19 PT/INR, D-dimer PT 11.1 Seconds (9.4-12.1) 09/18/16 04:38 - VTE Documentation of Mechanical Device: Intermittent pneumatic compression device Consult Discharge Plan - Plan Referrals: Edith Peña CNP [Advanced Practice Nurse] - 09/26/16 10:15 am Kj Yost MD [Partnered Physician] - Therese Garcia CNP [Primary Care Provider] - () Prudence Escobedo MD [Partnered Physician] - 10/11/16 3:50 pm ()
--- NOTE | 2016-09-24 11:20 | Nephrology Progress Note ---
Date of Encounter: 09/24/16 Time of Encounter: 11:20 - Assessment and Plan (1) Acute kidney injury superimposed on CKD Current Visit: Yes Status: Acute Patient is dialysis dependent. Will perform UF today secondary to dyspnea and high blood pressure. Renal dose medications. (2) Anemia Current Visit: Yes Status: Chronic Follow hemoglobin. Transfuse as needed. Management per primary team. Qualifiers: Anemia type: iron deficiency Iron deficiency anemia type: unspecified iron deficiency Qualified Code(s): D50.9 - Iron deficiency anemia, unspecified (3) HCAP (healthcare-associated pneumonia) Current Visit: Yes Status: Acute Per primary team and pulmonary. Patient with some rales and scattered rhonchi on exam. . Antifungal agent started. (4) DVT prophylaxis Current Visit: Yes Status: Acute per primary team. (5) Hypertension Current Visit: Yes Status: Chronic Blood pressure uncontrolled. Will perform UF, but may need titration of antihypertensive agents once her blood pressure has stabilized (there is significant variability in the readings. Qualifiers: Hypertension type: essential hypertension Qualified Code(s): I10 - Essential (primary) hypertension Subjective Principal diagnosis: LELE on CKD, COPD, PAF Interval history: Patient seen and evaluated. Her daughter was at the bedside. She reports that her breathing is slightly worse today. She remains on nasal cannula. Objective - Vital Signs Vital signs: Vital Signs Temp Pulse Resp BP Pulse Ox 09/24/16 10:16 84 09/24/16 08:09 98.3 F 99 20 174/78 90 09/24/16 07:55 20 91 09/24/16 05:23 18 97 09/24/16 03:55 97.8 F 83 21 143/75 95 09/24/16 00:53 18 96 09/24/16 00:50 99.9 F H 97 22 141/77 94 09/23/16 21:26 99.5 F 109 19 189/92 93 09/23/16 20:45 20 95 09/23/16 16:45 99 09/23/16 16:41 16 93 09/23/16 16:26 98.2 F 112 16 153/114 93 09/23/16 15:09 97.7 F 20 137/59 09/23/16 14:55 138/40 09/23/16 14:40 117/45 09/23/16 14:25 130/59 09/23/16 14:10 158/41 09/23/16 14:05 98.3 F 90 18 123/64 09/23/16 13:55 128/65 09/23/16 13:40 116/64 09/23/16 13:34 98.5 F 96 20 109/52 09/23/16 13:25 122/48 09/23/16 13:19 98.3 F 92 22 120/60 09/23/16 13:10 129/56 09/23/16 12:55 119/56 09/23/16 12:40 106/46 09/23/16 12:25 106/57 09/23/16 12:20 98 09/23/16 12:10 140/61 09/23/16 11:55 100.6 F H 20 120/61 Intake and Output 09/23/16 09/24/16 09/24/16 23:59 07:59 15:59 Intake Total 250 / 250 240 / 240 Output Total 260 / 260 Balance -10 / -10 240 / 240 Intake: IV Fluids 250 / 250 VFend 550 MG In 0.9 % 250 / 250 Sodium Chloride 250 ML @ 125 mls/hr IVPB Q12HR [facility] Rx#:[id number] Oral 240 / 240 Output: Urine 125 / 125 Urethral (Watkins) 125 / 125 Catheter 135 / 135 Other: Meal Breakfast Percent of Meal Consumed 10% Weight 91.8 kg Blood Glucose* 280 187 Patient Weight 09/24/16 23:59 Weight 91.8 kg - General Appearance General appearance: Present: well-developed, well-nourished EENT: Present: ATNC Neck: Present: supple Respiratory: Present: wheezing, rales, course breath sounds, rhonchi Cardiology: Present: regular rate Gastrointestinal: Present: no tenderness Integumentary: Present: warm and dry Neurologic: Present: alert and oriented x3 Musculoskeletal: Present: no cyanosis Psychiatric: Present: mood/affect appropriate - Lab 09/24/16 04:10 09/24/16 04:10 Most recent lab results ABG pH 7.39 pH Units (7.32-7.45) 09/13/16 21:19 ABG pCO2 45 mmHg (35-45) 09/13/16 21:19 ABG pO2 79 mmHg (85-104) L 09/13/16 21:19 ABG HCO3 27.2 mEQ/L (21-27) H 09/13/16 21:19 ABG O2 Saturation 95 % (95-98) 09/13/16 21:19 Calcium 7.5 mg/dL (8.6-10.8) L 09/24/16 04:10 Phosphorus 1.5 mg/dL (2.3-4.7) L 09/24/16 04:10 Magnesium 1.2 mg/dL (1.6-2.6) L 09/24/16 04:10 Urine Creatinine 40 mg/dL 08/25/16 13:19 Urine Sodium 30.0 mEq/L 08/25/16 13:19 Urine Total Protein 22 mg/dL (1-14) H 08/24/16 14:18 - VTE Documentation of Mechanical Device: Intermittent pneumatic compression device Consult Discharge Plan - Plan Referrals: Edith Peña CNP [Advanced Practice Nurse] - 09/26/16 10:15 am Kj Yost MD [Partnered Physician] - Therese Garcia CNP [Primary Care Provider] - () Prudence Escobedo MD [Partnered Physician] - 10/11/16 3:50 pm ()
[2016-09-24] MEDS ORDERED: 0.9 % Sodium Chloride 250 ML IVC PRN (11:49)
[2016-09-24] MEDS ORDERED: 0.9 % Sodium Chloride 1,000 ML PRIME SCH (12:00)
[2016-09-24] MEDS ORDERED: Magnesium Sulfate 1 GM in D5% in Water 100 ML IVPB ONE (14:00)
[2016-09-24] MEDS ORDERED: 0.9 % Sodium Chloride 2,000 ML ONE (14:48)
[2016-09-24] MEDS: Meropenem 500 MG in 0.9 % Sodium Chloride Mini Bag 100 ML IVPB SCH (18:35)
[2016-09-24] MEDS: DAPTOMYCIN IVPB SCH (18:36)
[2016-09-24] MEDS ORDERED: Simethicone 80 MG TAB.CHEW PO PRN (19:09)
[2016-09-24] MEDS ORDERED: *HR* LORazepam 2 MG/ML VIAL IVP ONE (20:39)
[2016-09-24] MEDS: *HR* LORazepam 0.5 MG TABLET PO PRN (21:35)
[2016-09-24] MEDS: *HR* OxyCODONE Immed Rel 5 MG TABLET PO PRN (23:47)
[2016-09-25] MEDS: Ipratropium/Albuterol Neb 3 ML IH SCH ×7 (00:21→23:34)
[2016-09-25] MEDS: *HR* Acetaminophen w/Cod 300-30 mg 1 TAB TABLET PO PRN (03:36)
[2016-09-25 04:10] LABS: Hematocrit 28.6 % (35.3-44.9); Immature Platelets 14.9 % (1.1-6.1); Mean Corpuscular HGB Conc 31.5 g/dL (31.6-35.5); Mean Corpuscular Hemoglobin 28.1 pg (28.0-33.3); Mean Corpuscular Volume 89.4 fL (83.0-100.0); Mean Platelet Volume 12.1 fL (9.4-12.4); Monocytes # 0.3 K/mcL (0.0-1.3); Red Cell Distribution Width 15.8 % (11.5-14.5)
[2016-09-25 04:39] LABS: Platelet Count 75 K/mcL (140-400)
[2016-09-25 04:44] LABS: Lymphocytes # 1.9 K/mcL (0.6-4.6); Neutrophils # 5.4 K/mcL (1.6-8.9); Platelet Estimate Decreased (Normal); Reactive Lymphocytes Present (Not Present)
[2016-09-25 04:45] LABS: Anisocytosis 1+ (Not Present); Large Platelets Present (Not Present)
[2016-09-25] MEDS: *HR* OxyCODONE Immed Rel 5 MG TABLET PO PRN (05:49)
[2016-09-25] MEDS: *HR* Dextrose 50 % in Water (Syg) 50 ML SYRINGE IVP PRN (05:56)
--- NOTE | 2016-09-25 08:01 | General Surgery Progress Note ---
Date of Encounter: 09/26/16 Time of Encounter: 06:30 - Assessment and Plan (1) Angiodysplasia of colon Current Visit: Yes Status: Acute POD #19 Extended right hemicolectomy with lysis of adhesions times [address] Moy. 09/13 positive blood cultures growing gram-positive cocci CT scan of the chest suggests possible septic emboli. Lung sounds continue to demonstrate rales and rhonchi. Oxygen saturation is 89% on high flow nasal cannula. Abdominal CT demonstrates an elongated hyperdense collection within the right psoas muscle. US right flank unremarkable. Patient has minimal abdominal tenderness to palpation on exam. Patient's daughter reports multiple BM into rectal tube and flatus. Patient tolerating a mechanically soft diet. However, daughter reports that her mother's appetite has decreased over the past 2 days and was significantly less yesterday after hemodialysis. Minimal intake reported 15% dinner. Patient has been having liquid bowel movements with rectal tube in place, flatus , bowel sounds present. The lower portion of her incision is draining serosanguineous fluid and there is moderate tissue tearing around the alba. Drainage has increased since yesterday. Will obtain culture of fluid and place plain packing for wound drainage. Overnight, patient de saturated, spiked a fever of 101.4, and was hypoglycemic with a glucose of 60. Daughter reports that she was restless all day yesterday complaining of leg cramps for which her daughter had to readjust her legs every 15-30 minutes. Plan: Incision wound culture pending Remove staple, insert plain packing 1/4 inch gauze to be changed daily. -Continue to encourage oral intake -Continue mechanically soft diet, nutritional supplementation -Continue calorie counts -Encourage incentive spirometry when up. -Maintain Watkins catheter for strict I and O's -Daily dressing change -PPI therapy daily -DVT prophylaxis The patient faces nutritional challenges, will continue with calorie counts. She may require PEG tube to augment her nutrition in the future. (2) Acute and chronic respiratory failure ([id number]) Current Visit: Yes Status: Acute IS every 1 hour while awake Aggressive pulmonary toilet Continue aerosol treatments as ordered Wean oxygen as tolerated Management per medicine service Qualifiers: Respiratory failure complication: hypoxia Qualified Code(s): J96.21 - Acute and chronic respiratory failure with hypoxia (3) Acute kidney injury superimposed on CKD Current Visit: Yes Status: Acute Plan: -IV fluids -Avoid nephrotoxic medications -Continue Watkins catheter for strict I's and O's -Nephrology following- hemodialysis (4) Insulin dependent type 2 diabetes mellitus Current Visit: Yes Status: Chronic Continue to manage per medicine team (5) DVT prophylaxis Current Visit: Yes Status: Acute Continue EPCDs to bilateral lower extremities for DVT prophylaxis Continue heparin 5,000 units SQ twice daily for DVT prophylaxis Subjective Patient reports: flatus, bowel movement Narrative: Patient was seen and examined. She is tolerating her mechanical diet however she has had minimal intake over the past 24 hours. Patient did not have lunch and ate a few small bites of dinner. She did drink all of her nepro shakes and have a few bites of chocolate ice cream. Per family report she was quite worn out after dialysis yesterday; sleeping more and "feeling worse". Overnight, patient de saturated, spiked a fever of 101.4, and was hypoglycemic with a glucose of 60. Daughter reports that she was restless all day yesterday complaining of leg cramps for which her daughter had to readjust her legs every 15-30 minutes. Family is concerned with her wound drainage and her continued work of breathing. Objective Vital Signs - Last 8 Hours Temp Pulse Resp BP Pulse Ox 09/25/16 06:35 98.6 F 09/25/16 05:56 101.4 F H 131/56 09/25/16 04:42 99.3 F 09/25/16 04:27 20 91 09/25/16 04:20 101.3 F H 88 19 132/91 92 09/25/16 00:22 25 97 Intake and Output 09/24/16 09/24/16 09/25/16 15:59 23:59 07:59 Intake Total 944 / 944 602 / 602 0 / 0 Output Total 2600 / 2600 125 / 125 Balance -1656 / -1656 602 / 602 -125 / -125 Intake: IV Fluids 104 / 104 102 / 102 Magnesium Sulfate 1 GM In 104 / 104 102 / 102 Dextrose 5% 100 ML @ 100 mls/hr IVPB ONCE ONE Rx# :[id number] Oral 240 / 240 500 / 500 0 / 0 Intake, Rinseback and 600 / 600 Flushes Output: Urine 0 / 0 Total Dialysis Output 2600 / 2600 Catheter 125 / 125 Other: Meal Breakfast Dinner Percent of Meal Consumed 10% 15% Weight 90 kg Blood Glucose* 239 229 107 Hemodialysis Net Fluid 2000 Removed (mL) Patient Weight 09/25/16 23:59 Weight 90 kg - General physical appearance no distress, moderate pain, chronically ill, obese - Eyes PERRL, normal ocular movement - ENT normal pinna, normal nares, dry mucosa, atraumatic, normocephalic, CN 2-12 grossly intact - Neck Neck exam: trachea midline, no venous distension - Respiratory other rales: bilateral (Rhonchi) - Cardiovascular Cardiovascular exam: Present: irregular rhythm, no murmurs/rubs/gallops. Absent : JVD - Abdomen Abdomen: Present: bowel sounds present, soft, tender (Over incisional area as well as right lower quadrant healing hematoma.). Absent: masses, guarding, rebound, rigid Abdominal Tenderness: RLQ - Incision Incision: Present: serosanguinous - Rectum no bleeding, other (Rectal tube in place) - Integumentary no rash - Neurologic CN 2-12 grossly intact - Musculoskeletal normal posture - Psychiatric oriented to time, oriented to person, oriented to place, speech is normal - Labs 09/26/16 04:00 09/26/16 04:00 - VTE Documentation of Mechanical Device: Intermittent pneumatic compression device Consult Discharge Plan - Plan Referrals: Edith Peña CNP [Advanced Practice Nurse] - 09/26/16 10:15 am Kj Yost MD [Partnered Physician] - Therese Garcia CNP [Primary Care Provider] - () Prudence Escobedo MD [Partnered Physician] - 10/11/16 3:50 pm () - Attending Attestation I examined this patient and my medical decision-making was reviewed with the [employer]/PA/Advanced Practice Nurse/Resident Physician. I agree with the documented findings, disposition and treatment plan as described except to the extent set forth below. I reviewed the above evaluation and assessment/plan and agree with the plan for dressing changes of the midline abdominal wound. Cultures pending.
--- NOTE | 2016-09-25 08:14 | Pulmonology Progress Note ---
Date of Encounter: 09/25/16 Time of Encounter: 08:12 Assessment and Plan (1) Lung nodules Current Visit: Yes Status: Acute Bilateral right upper lobe predominant lung nodules with concern for fungal pneumonia. I suspect this either represents Histoplasma or Aspergillus although preliminary serological data would point away from invasive histoplasma. I think it is too early based upon serologies and preliminary microbiological testing to definitively say that she has fungal pneumonia however this is a strong consideration and empiric antifungal therapy has been instituted The my estimation appears that patient does have worsening sepsis is unclear to me that this represents worsening of pneumonia or additional infective source. She has been tested for C. difficile colitis in the past however with degree of fever and new watery diarrhea I recommend testing for C. difficile. Otherwise she is on quite broad-spectrum antibiotics including daptomycin and meropenem and antifungal coverage with voriconazole. Based upon deterioration overnight I would recommend repeating blood cultures at this time. Clearly this is an extremely complicated case and patient would continue to be of benefit from infectious disease expertise however he understands that there is no coverage over the weekend which does limit complete evaluation. I have explained my current recommendations to the medical attending Dr. Rojas directly and will continue to be available for questions that are asked The patient remains high risk to undergo endoscopic procedure and in speaking with the family they wanted this to be "last resort" plan. Additional infections of been considered including nontuberculous mycobacterium and cryptococcal pneumonia however preliminary investigations into both of these infections would be at this point considered negative I am appreciative of the excellent ongoing care of this patient by the primary internal medicine service as well as antimicrobial selection by the infectious disease service. From a standpoint of COPD patient has schedule bronchodilators and daily ICS/ LABA. I do not feel that enteral steroids are necessary would favor stopping ( if not done already). Cont NiPPV at night and as needed for worsening hypoxia. Overall prognosis is guarded would also consider consultation with palliative care service for ongoing goals of care discussion. Pulmonary will continue to follow (2) Acute exacerbation of chronic obstructive airways disease Current Visit: Yes Status: Acute (3) Pneumonia Current Visit: No Status: Acute Qualifiers: Pneumonia type: due to unspecified organism Laterality: bilateral Lung location: unspecified part of lung Qualified Code(s): J18.9 - Pneumonia, unspecified organism (4) CHF (congestive heart failure) Current Visit: Yes Status: Chronic Qualifiers: Congestive heart failure type: diastolic Congestive heart failure chronicity: chronic Qualified Code(s): I50.32 - Chronic diastolic (congestive ) heart failure Subjective Principal diagnosis: ELLE on CKD, COPD, PAF Interval history: Patient has had a difficult night. She has spiked a fever as high as 101 on multiple episodes with a couple episodes of hypoglycemia. She is more lethargic this morning and respiratory status is worse. Bedside nurse and as explained any that she has had increase in frequency of liquid watery diarrhea over the last 12-24 hours. There has been no other changes in her antimicrobial regimen. Objective PUL Vital signs: Last Vital Signs Temp 99.0 F 09/25/16 07:48 Pulse 85 09/25/16 07:48 Resp 20 09/25/16 07:48 BP 142/76 09/25/16 07:48 Pulse Ox 89 09/25/16 07:48 General appearance: lethargic (But easily arousable and able to answer all my questions) Effort: mildly labored Auscultation: bilateral: diminished breath sounds, wheezes (Left greater than right), rales Cardiovascular: irregular rhythm Gastrointestinal: soft, non-tender Extremities: anasarca non-focal exam Results - Laboratory Findings CBC and BMP: 09/25/16 03:50 09/24/16 04:10 ABG ABG pH 7.39 pH Units (7.32-7.45) 09/13/16 21:19 ABG pCO2 45 mmHg (35-45) 09/13/16 21:19 ABG pO2 79 mmHg (85-104) L 09/13/16 21:19 ABG O2 Saturation 95 % (95-98) 09/13/16 21:19 PT/INR, D-dimer PT 11.1 Seconds (9.4-12.1) 09/18/16 04:38 Abnormal lab findings: Abnormal lab results RBC 3.20 M/mcL (3.82-4.97) L 09/25/16 03:50 Hgb 9.0 g/dL (11.5-15.4) L 09/25/16 03:50 Hct 28.6 % (35.3-44.9) L 09/25/16 03:50 MCHC 31.5 g/dL (31.6-35.5) L 09/25/16 03:50 RDW 15.8 % (11.5-14.5) H 09/25/16 03:50 Plt Count 75 K/mcL (140-400) L D 09/25/16 03:50 Immature Gran % 8.5 % (0-4) H 09/23/16 04:05 Band Neutrophils % 14.0 % (0-4) H 09/25/16 03:50 Metamyelocytes % 4.0 % (0) H 09/25/16 03:50 Nucleated RBCs/100 WBC 2.0 /100 WBC (0) H 09/25/16 03:50 Reactive Lymphocytes Present (Not Present) A 09/25/16 03:50 Toxic Granulation Present (Not Present) A 09/18/16 04:38 Platelet Estimate Decreased (Normal) L 09/25/16 03:50 Large Platelets Present (Not Present) A 09/25/16 03:50 Immature Plt Fraction 14.9 % (1.1-6.1) H 09/25/16 03:50 Polychromasia 1+ (Not Present) A 09/16/16 03:10 Hypochromasia Present (Not Present) A 09/22/16 03:50 Basophilic Stippling 2+ (Not Present) A 09/14/16 03:00 Anisocytosis 1+ (Not Present) A 09/25/16 03:50 APTT 60.5 Seconds (26.0-36.0) H D 09/14/16 18:20 Heparin Anti-Xa, Unfract 1.06 IU/mL (0.30-0.70) H* 09/14/16 03:00 ABG pO2 79 mmHg (85-104) L 09/13/16 21:19 ABG HCO3 27.2 mEQ/L (21-27) H 09/13/16 21:19 ABG Total CO2 28.6 mEq/L (20-26) H 09/13/16 21:19 Potassium 3.3 mEq/L (3.5-4.5) L 09/24/16 04:10 Creatinine 1.96 mg/dL (0.57-1.11) H 09/24/16 04:10 Est GFR ( Amer) 30 (> 60) L 09/24/16 04:10 Est GFR (Non-Af Amer) 25 (> 60) L 09/24/16 04:10 Glucose 242 mg/dL (70-99) H 09/24/16 04:10 POC Glucose 107 (58-89) H 09/25/16 06:21 Uric Acid 10.4 mg/dL (2.6-6.0) H 08/25/16 12:10 Calcium 7.5 mg/dL (8.6-10.8) L 09/24/16 04:10 Phosphorus 1.5 mg/dL (2.3-4.7) L 09/24/16 04:10 Magnesium 1.2 mg/dL (1.6-2.6) L 09/24/16 04:10 Creatine Kinase 12 Units/L (29-168) L 09/20/16 15:20 Troponin I 0.25 ng/mL (0-0.03) H* 09/08/16 11:50 B-Natriuretic Peptide 241 pg/mL (0-100) H 09/17/16 04:00 Serum Total Protein 5.3 g/dL (6.0-8.3) L 09/22/16 08:50 Albumin 1.7 g/dL (3.5-5.0) L 09/22/16 08:50 Globulin 3.6 g/dL (2.4-3.5) H 09/22/16 08:50 Albumin/Globulin Ratio 0.5 (1.1-2.2) L 09/22/16 08:50 TSH 0.028 mcIU/mL (0.350-4.840) L 08/25/16 16:51 Urine Protein 30 mg/dL (Neg-Trace) H 09/18/16 18:20 Urine Glucose (UA) 250 mg/dL (Normal) H 09/18/16 18:20 Urine Blood Small (Negative) H 09/18/16 18:20 Ur Leukocyte Esterase Trace (Negative) H 09/18/16 18:20 Urine Microscopic RBC 5-15 per hpf (0-3) H 09/18/16 18:20 Urine Microscopic WBC 5-15 per hpf (0-3) H 09/18/16 18:20 Ur Squamous Epith Cells Many per lpf (None-Few) H 09/18/16 18:20 Urine Yeast Many per hpf (None Seen) H 09/18/16 18:20 Ur Culture Indicated? YES (NO) A 09/18/16 18:20 Protein/Creatinin Ratio 0.42 mg/mg (0-0.20) H 08/24/16 14:18 Urine Total Protein 22 mg/dL (1-14) H 08/24/16 14:18 Stool Occult Blood Positive (Negative) A 09/14/16 16:11 Staphylococcus sp PCR DETECTED (Not Detect) A 09/13/16 15:40 mecA-Methicil Res Gene DETECTED (Not Detect) A 09/13/16 15:40 B-(1,3)-D-Glucan Intrp POSITIVE (Negative) A 09/22/16 08:50 - Microbiology Findings Microbiology Findings: Microbiology, Last 48 Hours 09/18/16 21:30 Blood Culture - Final Peripheral Venipuncture No growth. 09/18/16 21:25 Blood Culture - Final Peripheral Central Cath, Picc No growth. 09/21/16 17:45 Respiratory Culture - Preliminary Other-Specify in Comments Fungal Elements - Clinical Findings Intake & Output: Intake & Output 09/24/16 09/25/16 09/25/16 23:59 07:59 15:59 Intake Total 602 / 602 0 / 0 Output Total 125 / 125 Balance 602 / 602 -125 / -125 Weight 90 kg - VTE Documentation of Mechanical Device: Intermittent pneumatic compression device Consult Discharge Plan - Plan Referrals: Edith Peña CNP [Advanced Practice Nurse] - 09/26/16 10:15 am Kj Yost MD [Partnered Physician] - Therese Garcia CNP [Primary Care Provider] - () Prudence Escobedo MD [Partnered Physician] - 10/11/16 3:50 pm ()
[2016-09-25] MEDS: Nystatin SUSP 5 ML UD.LIQ PO SCH ×4 (08:20→20:06)
[2016-09-25] MEDS: Nystatin POWDER 30 GM BOTTLE TP SCH ×3 (08:21→23:26)
[2016-09-25] MEDS: Miconazole w/zinc oxide&karaya 92 APPL/92 GM TUBE TP SCH ×3 (08:22→23:26)
[2016-09-25] MEDS: Furosemide 40 MG TABLET PO SCH (08:23)
[2016-09-25] MEDS: Magnesium Oxide 400 MG TABLET PO SCH ×2 (08:23→20:05)
[2016-09-25] MEDS: Insulin LISPRO 300 UNITS/3 ML VIAL SQ SCH ×4 (08:24→22:03)
[2016-09-25] MEDS: Budesonide/Formoterol 160/4.5 MDI IH SCH ×2 (08:26→19:45)
[2016-09-25] MEDS: Pantoprazole 40 MG VIAL IVP SCH (08:29)
[2016-09-25 08:54] LABS: Albumin/Globulin Ratio 0.5 (1.1-2.2); Bilirubin,Direct 0.3 mg/dL (0.0-0.5); Bilirubin,Indirect 0.2 mg/dL (0.0-1.2); Bilirubin,Total 0.5 mg/dL (0.2-1.2); Globulin 3.6 g/dL (2.4-3.5); Total Protein 5.4 g/dL (6.0-8.3)
[2016-09-25 08:59] LABS: Albumin 1.8 g/dL (3.5-5.0)
[2016-09-25 09:10] LABS: Calcium 8.1 mg/dL (8.6-10.8); Potassium 4.5 mEq/L (3.5-4.5)
--- NOTE | 2016-09-25 09:11 | Internal Med Progress Note ---
Date of Encounter: 09/25/16 Time of Encounter: 08:30 - Assessment and plan (1) Acute and chronic respiratory failure ([id number]) Current Visit: Yes Status: Acute Assessment and plan: Secondary to COPDE/CHFE/Afib and suspected fungal septic emboli in lungs. Patient uses [address] Chest 09/13 revealed bilateral lower lobe septic emboli as well as multiple small nodular right lung lesions, 1 is a cavitary nodule. suspicious for septic emboli. 09/20: Worsening hypoxia. Patient had HD 09/19 and 09/20 with removal of ~4L. Now requiring [address] chest showed overall worsening of ill-defined bilateral nodular infiltrates, primarily in the right upper lobe. Antibiotics switched to meropenem and daptomycin. 09/23: sputum culture growing fungal element. 09/25: Appreciate pulmonary and ID input. oxygen increased to 10L high flow nasal cannula, worsening of pulmonary status could be from sepsis. continue supportive therapy with high flow nasal cannula, BIPAP prn, voriconazole, meropenem and daptomycin, nebs. Qualifiers: Respiratory failure complication: hypoxia Qualified Code(s): J96.21 - Acute and chronic respiratory failure with hypoxia (2) Fever Current Visit: Yes Status: Acute Assessment and plan: secondary to pulmonary infection. serology positive for B(1,3)D glucan. suspected pulmonary aspergillosis. patient started on voriconazole 09/23. continue current antimicrobials. IV tylenol. gentle fluid hydration. Qualifiers: Fever type: due to other condition Qualified Code(s): R50.81 - Fever presenting with conditions classified elsewhere (3) Invasive pulmonary aspergillosis Current Visit: Yes Status: Suspected (4) Bacteremia due to Enterococcus Current Visit: Yes Status: Acute Assessment and plan: 09/07 Patient has a Right dialysis CVC placed 09/08 Blood culture drawn due to leukocytosis and grew VRE 05/08 set 09/09 started on IV Zyvox. 09/11 Blood cultures, peripherally are negative 09/13 blood cultures x1 from Right Dialysis CVC grew Staphylococcus hominis. peripheral blood cultures NGTD. 09/15 Dialysis catheter was removed, tip culture NGTD. CT chest findings suggestive of septic emboli. consult [employer]. started on cefepime and continue on Zyvox day 7. 09/16 Unsuccessful VIC attempt. Peripheral blood cultures negative. 09/19: Ct abdomen and pelvis shows increase in size of nodular densities within the right middle lobe most compatible with pneumonia, unchanged in size heterogeneous elongated focus within the right psoas muscle suspicious for hematoma. continue Daptomycin (start date 09/20). (5) Acute kidney injury superimposed on CKD Current Visit: Yes Status: Acute Assessment and plan: s/p Right CVC and HD 09/07, 09/08, 09/09, 09/12, 09/14. 09/19: s/p dialysis catheter. HD 09/19, 09/20, 09/23, 09/24. Appreciate nephrology input. close monitoring. avoid nephrotoxic agents as possible. (6) Anemia Current Visit: Yes Status: Chronic Assessment and plan: secondary to GI bleed and right psoas hematoma. On admission, patient had blood loss anemia due to colonic angiodysplasia in the setting of anticoagulation. She underwent hemicolectomy 09/06. 09/14 Hgb dropped to 7.4, transfused 2 units of PRBC during dialysis. 09/15: Pt had CT abdomen and pelvis showing an elongated hyperdense collection within the right psoas muscle. consider hematoma, phlegmon or mass. 09/20 hgb is 7.6. transfused 1 unit PRBC during HD. close monitor. No external bleeding. 09/23: Hb at 7.3. she received 1 unit PRBC. Hgb is 9. no external bleeding. close monitor. Qualifiers: Anemia type: iron deficiency Iron deficiency anemia type: unspecified iron deficiency Qualified Code(s): D50.9 - Iron deficiency anemia, unspecified (7) GIB (gastrointestinal bleeding) Current Visit: Yes Status: Acute Assessment and plan: Secondary to colonic angiodysplasia in the setting of anticoagulation s/p hemicolectomy 09/06 Appreciate surgery input. 09/08 Hgb at 6.5 post-surgery, she Received 2 units PRBCS Qualifiers: GI bleed type/associated pathology: unspecified gastrointestinal hemorrhage type Qualified Code(s): K92.2 - Gastrointestinal hemorrhage, unspecified (8) Angiodysplasia of colon Current Visit: Yes Status: Acute Assessment and plan: plan as GI bleed (9) Atrial fibrillation with RVR Current Visit: Yes Status: Acute Assessment and plan: 09/11 she developed Refractory Aflutter requiring cardizem drip, cardiology was consulted 09/14: Hgb dropped to 7.4 and fecal occult blood is positive, stop heparin drip. 09/15: switched to oral metoprolol continue oral metoprolol and IV metoprolol prn. (10) CHF (congestive heart failure) Current Visit: Yes Status: Chronic Assessment and plan: plan as above Qualifiers: Congestive heart failure type: diastolic Congestive heart failure chronicity: chronic Qualified Code(s): I50.32 - Chronic diastolic (congestive ) heart failure (11) CKD (chronic kidney disease) stage 4, GFR 15-29 ml/min Current Visit: Yes Status: Chronic Assessment and plan: As in ELLE on CKD (12) Diabetes mellitus Current Visit: Yes Status: Chronic Assessment and plan: DM with Hyperglycemia possibly secondary to Starting TPN 09/15: off TPN and insulin drip. 09/17: Glucose level of 63 at 4 AM. 09/25: Fasting glucose is better at 107. patient is very sleepy. stop levemir. continue insulin sliding scale. diabetic diet. 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 platelets are trending up to 75. (15) Acute metabolic encephalopathy Current Visit: Yes Status: Acute Assessment and plan: Patient developed post-op metabolic encephalopathy 09/06 that was multifactorial due to infection, prolonged hospitalization brought, age, suspected early signs of dementia at home, recent surgery. This resolved by 09/16. - Subjective Interval history: patient complains of mild abdominal pain at site of incision. - Constitutional Vitals: Temp Pulse Resp BP Pulse Ox 99.0 F 85 18 142/76 92 09/25/16 07:48 09/25/16 07:48 09/25/16 08:26 09/25/16 07:48 09/25/16 08:26 General appearance: Present: cooperative, A&O X 3, pleasant, no acute distress, obese, answers questions appropriately - Neck Neck exam general surgery: Present: supple, trachea midline. Absent: lymphadenopathy - Respiratory Respiratory exam: Present: rales (bilateral crackles) - Cardiovascular Cardiovascular exam: Present: irregular rhythm - GI/Abdominal GI/Abdominal exam: Present: normal bowel sounds, soft. Absent: distended Additional comments: Surgical wound has a small opening and there is serosanguinolent drainage coming thru. no purulent discharge. minimal surrounding erythema. - Extremities Exam Extremities exam: Absent: pedal edema - Neurological Exam Neurological exam: Present: alert, oriented X3. Absent: facial droop, speech deficit - Skin Skin exam: Absent: rash Internal Medicine: Result - Labs CBC & Chem 7: 09/25/16 03:50 09/25/16 06:30 Labs: Short CBC 09/25/16 Range/Units 03:50 WBC 8.0 D (4.3-11.1) K/mcL Hgb 9.0 L (11.5-15.4) g/dL Hct 28.6 L (35.3-44.9) % Plt Count 75 L D (140-400) K/mcL Neutrophils # 5.4 (1.6-8.9) K/mcL Liver Function 09/25/16 Range/Units 08:20 Total Bilirubin 0.5 (0.2-1.2) mg/dL Direct Bilirubin 0.3 (0.0-0.5) mg/dL AST 30 (5-34) Units/L ALT 23 (0-55) Units/L Alkaline Phosphatase 83 (38-126) Units/L Albumin 1.8 L (3.5-5.0) g/dL - ABG Interpretation ABG results: ABG ABG pH 7.39 pH Units (7.32-7.45) 09/13/16 21:19 ABG pCO2 45 mmHg (35-45) 09/13/16 21:19 ABG pO2 79 mmHg (85-104) L 09/13/16 21:19 ABG O2 Saturation 95 % (95-98) 09/13/16 21:19 PT/INR, D-dimer PT 11.1 Seconds (9.4-12.1) 09/18/16 04:38 - VTE Documentation of Mechanical Device: Intermittent pneumatic compression device Consult Discharge Plan - Plan Referrals: Edith Peña CNP [Advanced Practice Nurse] - 09/26/16 10:15 am Kj Yost MD [Partnered Physician] - Therese Garcia CNP [Primary Care Provider] - () Prudence Escobedo MD [Partnered Physician] - 10/11/16 3:50 pm ()
[2016-09-25 09:31] LABS: Phosphorous 3.3 mg/dL (2.3-4.7)
--- NOTE | 2016-09-25 13:36 | Nephrology Progress Note ---
Date of Encounter: 09/25/16 Time of Encounter: 13:33 - Assessment and Plan (1) Acute kidney injury superimposed on CKD Current Visit: Yes Status: Acute Patient is dialysis dependent. Will perform HD MWF and as needed. Will minimize UF as patient likely has sepsis. Renal dose medications. Patient has poor prognosis. (2) Anemia Current Visit: Yes Status: Chronic Follow hemoglobin. Transfuse as needed. Management per primary team. Qualifiers: Anemia type: iron deficiency Iron deficiency anemia type: unspecified iron deficiency Qualified Code(s): D50.9 - Iron deficiency anemia, unspecified (3) HCAP (healthcare-associated pneumonia) Current Visit: Yes Status: Acute Per primary team and pulmonary. Patient with rales and scattered rhonchi on exam. . Antifungal agent started. Continue broad spectrum antibiotics. Patient with increasing bandemia and return of clinical sepsis overnight. Unclear if it is pneumonia or another source. Agree with the need for ID consult. (4) DVT prophylaxis Current Visit: Yes Status: Acute per primary team. (5) Hypertension Current Visit: Yes Status: Chronic Blood pressure now on the low side and the patient now on fluids. Will avoid UF on dialysis unless needed for respiratory function. Qualifiers: Hypertension type: essential hypertension Qualified Code(s): I10 - Essential (primary) hypertension Subjective Principal diagnosis: ELLE on CKD, COPD, PAF Interval history: Patient seen and evaluated. Her daughter was at the bedside. She reports that her breathing is slightly worse today. She remains on nasal cannula. Per the daughter she is less responsive today. She had nightsweats overnight. Objective - Vital Signs Vital signs: Vital Signs Temp Pulse Resp BP Pulse Ox 09/25/16 12:33 89 09/25/16 11:30 20 91 09/25/16 11:19 97.6 F 90 20 107/56 91 09/25/16 09:03 94 09/25/16 08:26 18 92 09/25/16 07:48 99.0 F 85 20 142/76 89 09/25/16 06:35 98.6 F 09/25/16 05:56 101.4 F H 131/56 09/25/16 04:42 99.3 F 09/25/16 04:27 20 91 09/25/16 04:20 101.3 F H 88 19 132/91 92 09/25/16 00:22 25 97 09/24/16 22:02 18 94 09/24/16 21:50 99.9 F H 79 20 153/76 92 09/24/16 20:24 99.4 F 101 26 176/77 90 09/24/16 18:15 20 94 09/24/16 16:55 98.2 F 84 24 153/73 92 09/24/16 16:05 71 09/24/16 16:00 18 97 09/24/16 14:32 18 94 09/24/16 14:24 97.9 F 20 139/67 09/24/16 13:35 109/60 Intake and Output 09/24/16 09/25/16 09/25/16 23:59 07:59 15:59 Intake Total 602 / 602 0 / 0 0 / 0 Output Total 125 / 125 Balance 602 / 602 -125 / -125 0 / 0 Intake: IV Fluids 102 / 102 Magnesium Sulfate 1 GM In 102 / 102 Dextrose 5% 100 ML @ 100 mls/hr IVPB ONCE ONE Rx# :[id number] Oral 500 / 500 0 / 0 0 / 0 Output: Catheter 125 / 125 Other: Meal Dinner Breakfast Percent of Meal Consumed 15% 0% Weight 90 kg Blood Glucose* 229 75 135 Patient Weight 09/25/16 23:59 Weight 90 kg - General Appearance General appearance: Present: well-developed, well-nourished EENT: Present: ATNC Neck: Present: supple Respiratory: Present: course breath sounds, rhonchi (left greater than right) Cardiology: Present: no edema, regular rate, regular rhythm Additional Comments: Surgical dressing is in place. Integumentary: Present: warm and dry Additional Comments: Lethargic. Opens her eyes but then goes back to sleep. Musculoskeletal: Present: no cyanosis Psychiatric: Present: mood/affect appropriate - Lab 09/25/16 03:50 09/25/16 06:30 Most recent lab results ABG pH 7.39 pH Units (7.32-7.45) 09/13/16 21:19 ABG pCO2 45 mmHg (35-45) 09/13/16 21:19 ABG pO2 79 mmHg (85-104) L 09/13/16 21:19 ABG HCO3 27.2 mEQ/L (21-27) H 09/13/16 21:19 ABG O2 Saturation 95 % (95-98) 09/13/16 21:19 Calcium 8.1 mg/dL (8.6-10.8) L 09/25/16 06:30 Phosphorus 3.3 mg/dL (2.3-4.7) D 09/25/16 06:30 Magnesium 2.0 mg/dL (1.6-2.6) 09/25/16 06:30 Urine Creatinine 40 mg/dL 08/25/16 13:19 Urine Sodium 30.0 mEq/L 08/25/16 13:19 Urine Total Protein 22 mg/dL (1-14) H 08/24/16 14:18 - VTE Documentation of Mechanical Device: Intermittent pneumatic compression device Consult Discharge Plan - Plan Referrals: Edith Peña CNP [Advanced Practice Nurse] - 09/26/16 10:15 am Kj Yost MD [Partnered Physician] - Therese Garcia CNP [Primary Care Provider] - () Prudence Escobedo MD [Partnered Physician] - 10/11/16 3:50 pm ()
[2016-09-25] MEDS: *HR* Metoprolol 5 MG/5 ML VIAL IVP PRN ×2 (15:06→16:37)
[2016-09-25] MEDS ORDERED: Acetaminophen IV 500 MG/50 ML INFUS..BTL IVPB ONE (15:38)
[2016-09-25 16:00] LABS: ABG Base Excess -2.5 mEq/L (-2.0 to 3.0); ABG HCO3 24.4 mEQ/L (21-27); ABG Oxygen Saturation 80 % (95-98); ABG PCO2 52 mmHg (35-45); ABG PH 7.28 pH Units (7.32-7.45)
[2016-09-25 16:01] LABS: ABG PO2 50 mmHg (85-104)
[2016-09-25 16:02] LABS: Blood Gas FiO2 50 %; Blood Gas PEEP 6 cm H2O; Blood Gas Respiration Rate 12
[2016-09-25] MEDS: Meropenem 500 MG in 0.9 % Sodium Chloride Mini Bag 100 ML IVPB SCH (16:06)
--- NOTE | 2016-09-25 16:33 | Event Note ---
Date of Encounter: 09/25/16 Time of Encounter: 15:05 Critical care note- first hour. time spent 30 minutes. 76 yo F admitted for acute blood loss anemia secondary to colonic angiodysplasias and underwent hemicolectomy on 09/06. 09/08 Hgb at 6.5 post-surgery , she Received 2 units PRBCS. Her post-op course was complicated by VRE bacteremia, thrombocytopenia, ELLE/ATN on HD since 09/07, right psoas muscle hematoma, afib/aflutter with RVR, acute diastolic HF, COPD exacerbation and bilateral nodular lung infiltrates suspicious for aspergillosis (sputum growing fungal organism and positive BDglucan). Called by nurse because of atrial fib with RVR 140 and hypoxemia. Patient very somnolent. SaO2 85% on high flow nasal cannula 14L, BP 101/56, chest diffuse rhonchi, no LE edema, heart irregular rhythm. A/P: 1. Acute on chronic respiratory failure secondary to a combination of pulmonary aspergillosis, COPD, dHF. BIPAP. stat ABG and CXR. 2. afib with RVR. received IV metoprolol and HR is 99. 3. sepsis. due to pulmonary aspergillosis. 4. acute metabolic encephalopathy. secondary to hypoxemia and fever. IV tylenol. treat underlying etiology. I spoke with her two daughters and updated them on the patient's diagnosis and treatment. I answered all questions.
[2016-09-25 17:21] LABS: ABG Base Excess -2.1 mEq/L (-2.0 to 3.0); ABG HCO3 24.9 mEQ/L (21-27); ABG Oxygen Saturation 93 % (95-98); ABG PCO2 53 mmHg (35-45); ABG PH 7.28 pH Units (7.32-7.45); ABG PO2 74 mmHg (85-104); ABG TCO2 26.5 mEq/L (20-26); Blood Gas FiO2 60 %
[2016-09-25 17:54] LABS: Basophils # 0.1 K/mcL (0.0-0.2); Basophils % 1.1 %; Eosinophils # 0.1 K/mcL (0.0-0.6); Hematocrit 27.6 % (35.3-44.9); Hemoglobin 8.6 g/dL (11.5-15.4); Immature Granulocytes % 15.3 % (0-4); Lymphocytes # 1.8 K/mcL (0.6-4.6); Lymphocytes % 24.4 %; Mean Corpuscular HGB Conc 31.2 g/dL (31.6-35.5); Mean Corpuscular Hemoglobin 28.3 pg (28.0-33.3); Mean Corpuscular Volume 90.8 fL (83.0-100.0); Mean Platelet Volume 11.7 fL (9.4-12.4); Monocytes # 0.3 K/mcL (0.0-1.3); Monocytes % 4.1 %; Red Blood Count 3.04 M/mcL (3.82-4.97); Red Cell Distribution Width 15.9 % (11.5-14.5); Segmented Neutrophils % 54.1 %
[2016-09-25 17:57] LABS: Platelet Count 88 K/mcL (140-400)
[2016-09-25 18:07] LABS: Potassium 4.7 mEq/L (3.5-4.5)
[2016-09-25 18:18] LABS: Anisocytosis 1+ (Not Present); Platelet Estimate Decreased (Normal)
[2016-09-25] MEDS ORDERED: *HR* LORazepam 2 MG/ML VIAL IVP STA (18:18)
[2016-09-25 18:19] LABS: Basophilic Stippling 1+ (Not Present)
[2016-09-25 18:20] LABS: Polychromasia 1+ (Not Present)
[2016-09-25] MEDS: *HR* Morphine 2 MG/ML SYRINGE IVP PRN (21:14)
[2016-09-25] MEDS: Ondansetron 4 MG/2 ML VIAL IVP PRN (22:20)
[2016-09-25] MEDS: *HR* LORazepam 2 MG/ML VIAL IVP PRN (23:52)
[2016-09-26] MEDS: *HR* Metoprolol 5 MG/5 ML VIAL IVP PRN (01:40)
[2016-09-26] MEDS: *HR* Morphine 2 MG/ML SYRINGE IVP PRN (02:51)
[2016-09-26] MEDS: Ipratropium/Albuterol Neb 3 ML IH SCH ×3 (03:40→11:37)
[2016-09-26] MEDS ORDERED: Acetaminophen IV 1,000 MG/100 ML INFUS..BTL IVPB ONE (04:00)
[2016-09-26 04:51] LABS: Hematocrit 29.3 % (35.3-44.9); Lymphocytes # 3.2 K/mcL (0.6-4.6); Mean Corpuscular HGB Conc 30.7 g/dL (31.6-35.5); Mean Platelet Volume 11.9 fL (9.4-12.4); Monocytes # 0.6 K/mcL (0.0-1.3); Nucleated Red Blood Cells 2.6 /100 WBC (0); Platelet Count 128 K/mcL (140-400); Red Blood Count 3.22 M/mcL (3.82-4.97); Red Cell Distribution Width 16.4 % (11.5-14.5)
[2016-09-26 04:54] LABS: Albumin/Globulin Ratio 0.5 (1.1-2.2); Bilirubin,Direct 0.3 mg/dL (0.0-0.5); Bilirubin,Indirect 0.2 mg/dL (0.0-1.2); Bilirubin,Total 0.5 mg/dL (0.2-1.2); Calcium 8.3 mg/dL (8.6-10.8); Globulin 3.9 g/dL (2.4-3.5); Magnesium 2.1 mg/dL (1.6-2.6); Potassium 5.5 mEq/L (3.5-4.5); Total Protein 5.7 g/dL (6.0-8.3)
[2016-09-26 04:56] LABS: Albumin 1.8 g/dL (3.5-5.0)
[2016-09-26 05:14] LABS: ABG Base Excess -1.7 mEq/L (-2.0 to 3.0); ABG HCO3 26.1 mEQ/L (21-27); ABG Oxygen Saturation 94 % (95-98); ABG PCO2 61 mmHg (35-45); ABG PH 7.24 pH Units (7.32-7.45); ABG PO2 85 mmHg (85-104); Blood Gas FiO2 80 %
[2016-09-26 05:48] LABS: Neutrophils # 6.2 K/mcL (1.6-8.9); Platelet Estimate Slight Decrease (Normal); Reactive Lymphocytes Present (Not Present); Toxic Granulation Present (Not Present)
[2016-09-26 05:49] LABS: Anisocytosis 1+ (Not Present); Large Platelets Present (Not Present); Polychromasia 1+ (Not Present)
[2016-09-26] MEDS: *HR* LORazepam 2 MG/ML VIAL IVP PRN (05:50)
[2016-09-26] MEDS: Budesonide/Formoterol 160/4.5 MDI IH SCH (07:42)
[2016-09-26 07:48] LABS: Blastomyces Ab by CF <1:8 (<1:8)
--- NOTE | 2016-09-26 07:53 | General Surgery Progress Note ---
Date of Encounter: 09/26/16 Time of Encounter: 07:50 - Assessment and Plan (1) Angiodysplasia of colon Current Visit: Yes Status: Acute POD #20 Extended right hemicolectomy. Lysis of adhesions times [address] Moy 09/13 positive blood cultures growing gram-positive cocci CT scan of the chest also shows possible septic emboli. Abdominal CT shows an elongated hyperdense collection within the right psoas muscle. US right flank unremarkable Incision is clean and dry inferiorly, is draining serosanguinous drainage inferiorly, is packed currently Patient is having BMs, bowel sounds present. Patient is febrile and hypotensive this morning. Preliminary cultures suspicious for Aspergillus, patient is currently being treated as though she has fungal pneumonia Patient has been advanced to mechanically altered diet, she is tolerating it, but not eating as much. Daughter reports that she is eating mostly nepro shakes. The patient faces nutritional challenges, will continue with calorie counts. She may require PEG tube to augment her nutrition Plan: -Continue to encourage oral intake -Encourage incentive spirometry when up. -Continue mechanically soft diet -Maintain Watkins catheter for strict I and O's -Daily dressing change, pack with idodoform -PPI therapy daily (2) Acute and chronic respiratory failure ([id number]) Current Visit: Yes Status: Acute IS every 1 hour while awake Aggressive pulmonary toilet Continue aerosol treatments as ordered Wean oxygen as tolerated Management per medicine service Qualifiers: Qualified Code(s): J96.21 - Acute and chronic respiratory failure with hypoxia (3) Acute kidney injury superimposed on CKD Current Visit: Yes Status: Acute Plan: -IV fluids -Avoid nephrotoxic medications -Continue Watkins catheter for strict I's and O's -Nephrology following- hemodialysis (4) Insulin dependent type 2 diabetes mellitus Current Visit: Yes Status: Chronic Continue to manage per medicine team (5) DVT prophylaxis Current Visit: No Status: Acute Continue EPCDs to bilateral lower extremities for DVT prophylaxis Continue heparin 5,000 units SQ twice daily for DVT prophylaxis Subjective Patient reports: still having pain, shortness of breath, fever Narrative: The patient was seen and examined. She has had fevers over the weekend, this morning she is febrile this morning at 102.3 degrees Fahrenheit. Her blood pressures remained in the 90s systolic. She is diaphoretic and cool on exam. She has increased work of breathing on BiPAP. Her abdomen is tender diffusely. The surgical site is clean and dry superiorly, however inferiorly there is serosanguineous drainage. Currently is packed. Her daughter states she is drinking nepro shakes, tries to eat more solids, but is not able to eat as much. Objective Vital Signs - Last 8 Hours Temp Pulse Resp BP Pulse Ox 09/26/16 03:45 102.3 F H 96 23 90/74 97 09/26/16 03:40 20 90/70 96 09/26/16 02:58 103.4 F H 09/26/16 00:00 100.1 F H 91 20 112/64 92 Intake and Output 09/25/16 09/25/16 09/26/16 15:59 23:59 07:59 Intake Total 0 / 0 0 / 0 Balance 0 / 0 0 / 0 Intake: Oral 0 / 0 0 / 0 Other: Meal Breakfast Dinner Percent of Meal Consumed 0% 0% Weight 89.3 kg Blood Glucose* 135 164 180 Patient Weight 09/26/16 23:59 Weight 89.3 kg - General physical appearance moderate distress, severe distress, moderate pain, chronically ill, obese - ENT atraumatic, normocephalic - Neck Neck exam: trachea midline - Respiratory crackles: bilateral, wheezing: bilateral - Cardiovascular Cardiovascular exam: Present: irregular rhythm - Abdomen Abdomen: Present: bowel sounds present, soft, tender Abdominal Tenderness: diffusely - Incision Incision: Present: draining (serosanguinous drainage, packed inferiorly), clean and dry (superiorly) - Integumentary other (diaphoretic, cool) - Labs 09/26/16 04:00 09/26/16 04:00 Diabetes panel 09/25/16 09/25/16 09/25/16 Range/Units 06:30 08:20 17:40 Sodium 136 133 L (136-145) mEq/L Potassium 4.5 D 4.7 H (3.5-4.5) mEq/L Chloride 101 100 (98-109) mEq/L Carbon Dioxide 25 21 (19-29) mEq/L BUN 32 H D 39 H (7-20) mg/dL Creatinine 3.11 H D 3.63 H (0.57-1.11) mg/dL Glucose 69 L 346 H (70-99) mg/dL Calcium 8.1 L 8.0 L (8.6-10.8) mg/dL AST 30 (5-34) Units/L ALT 23 (0-55) Units/L Alkaline Phosphatase 83 (38-126) Units/L Albumin 1.8 L (3.5-5.0) g/dL 09/26/16 Range/Units 04:00 Sodium 135 L (136-145) mEq/L Potassium 5.5 H (3.5-4.5) mEq/L Chloride 101 (98-109) mEq/L Carbon Dioxide 20 (19-29) mEq/L BUN 42 H (7-20) mg/dL Creatinine 4.10 H (0.57-1.11) mg/dL Glucose 184 H (70-99) mg/dL Calcium 8.3 L (8.6-10.8) mg/dL AST 59 H (5-34) Units/L ALT 30 (0-55) Units/L Alkaline Phosphatase 109 (38-126) Units/L Albumin 1.8 L (3.5-5.0) g/dL Calcium panel 09/25/16 09/25/16 09/25/16 Range/Units 06:30 08:20 17:40 Calcium 8.1 L 8.0 L (8.6-10.8) mg/dL Phosphorus 3.3 D (2.3-4.7) mg/dL Albumin 1.8 L (3.5-5.0) g/dL 09/26/16 Range/Units 04:00 Calcium 8.3 L (8.6-10.8) mg/dL Phosphorus 5.0 H D (2.3-4.7) mg/dL Albumin 1.8 L (3.5-5.0) g/dL Pituitary panel 09/25/16 09/25/16 09/26/16 Range/Units 06:30 17:40 04:00 Sodium 136 133 L 135 L (136-145) mEq/L Potassium 4.5 D 4.7 H 5.5 H (3.5-4.5) mEq/L Chloride 101 100 101 (98-109) mEq/L Carbon Dioxide 25 21 20 (19-29) mEq/L BUN 32 H D 39 H 42 H (7-20) mg/dL Creatinine 3.11 H D 3.63 H 4.10 H (0.57-1.11) mg/dL Glucose 69 L 346 H 184 H (70-99) mg/dL Calcium 8.1 L 8.0 L 8.3 L (8.6-10.8) mg/dL Adrenal panel 09/25/16 09/25/16 09/25/16 Range/Units 06:30 08:20 17:40 Sodium 136 133 L (136-145) mEq/L Potassium 4.5 D 4.7 H (3.5-4.5) mEq/L Chloride 101 100 (98-109) mEq/L Carbon Dioxide 25 21 (19-29) mEq/L BUN 32 H D 39 H (7-20) mg/dL Creatinine 3.11 H D 3.63 H (0.57-1.11) mg/dL Glucose 69 L 346 H (70-99) mg/dL Calcium 8.1 L 8.0 L (8.6-10.8) mg/dL Total Bilirubin 0.5 (0.2-1.2) mg/dL AST 30 (5-34) Units/L ALT 23 (0-55) Units/L Alkaline Phosphatase 83 (38-126) Units/L Albumin 1.8 L (3.5-5.0) g/dL 09/26/16 Range/Units 04:00 Sodium 135 L (136-145) mEq/L Potassium 5.5 H (3.5-4.5) mEq/L Chloride 101 (98-109) mEq/L Carbon Dioxide 20 (19-29) mEq/L BUN 42 H (7-20) mg/dL Creatinine 4.10 H (0.57-1.11) mg/dL Glucose 184 H (70-99) mg/dL Calcium 8.3 L (8.6-10.8) mg/dL Total Bilirubin 0.5 (0.2-1.2) mg/dL AST 59 H (5-34) Units/L ALT 30 (0-55) Units/L Alkaline Phosphatase 109 (38-126) Units/L Albumin 1.8 L (3.5-5.0) g/dL - VTE Documentation of Mechanical Device: Intermittent pneumatic compression device Consult Discharge Plan - Plan Referrals: Edith Peña CNP [Advanced Practice Nurse] - 09/26/16 10:15 am Kj Yost MD [Partnered Physician] - Therese Garcia CNP [Primary Care Provider] - () Prudence Escobedo MD [Partnered Physician] - 10/11/16 3:50 pm () - Attending Attestation I examined this patient and my medical decision-making was reviewed with the DEVELOPMENTAL ELECTRONICS ASSEMBLER/PA/Advanced Practice Nurse/Resident Physician. I agree with the documented findings, disposition and treatment plan as described except to the extent set forth below. The patient is seen and evaluated on morning rounds. She has a small area of drainage from the midportion of the wound. This will be controlled with iodoform. She is having bowel movements. Unfortunately, her overall condition continues to deteriorate. She is battling Aspergillus bronchitis and pneumonia likely secondary to immunosuppression from steroids necessary to treat her end- stage COPD. Although this will also adversely affect wound healing, the ileal colic anastomosis is intact. Continue supportive measures. She may require PEG tube Sukumar Moy MD FACS
[2016-09-26 08:23] LABS: ABG Base Excess -4.2 mEq/L (-2.0 to 3.0); ABG HCO3 23.5 mEQ/L (21-27); ABG Oxygen Saturation 96 % (95-98); ABG PCO2 56 mmHg (35-45); ABG PH 7.23 pH Units (7.32-7.45); ABG PO2 97 mmHg (85-104); ABG TCO2 25.2 mEq/L (20-26); Blood Gas FiO2 80 %
--- NOTE | 2016-09-26 08:37 | Internal Med Progress Note ---
Date of Encounter: 09/26/16 Time of Encounter: 07:45 - Assessment and plan (1) Acute and chronic respiratory failure ([id number]) Current Visit: Yes Status: Acute Assessment and plan: 76 yo F admitted for acute blood loss anemia secondary to colonic angiodysplasias and underwent hemicolectomy on 09/06. 09/08 Hgb at 6.5 post-surgery , she Received 2 units PRBCS. Her post-op course was complicated by VRE bacteremia, thrombocytopenia, ELLE/ATN on HD since 09/07, right psoas muscle hematoma, afib/aflutter with RVR, acute diastolic HF, COPD exacerbation and bilateral nodular lung infiltrates suspicious for aspergillosis (sputum growing fungal organism and positive BDglucan). Called by nurse because of atrial fib with RVR 140 and hypoxemia. Patient very somnolent. SaO2 85% on high flow nasal cannula 14L, BP 101/56, chest diffuse rhonchi, no LE edema, heart irregular rhythm. respiratory failure secondary to COPDE/CHFE/Afib and suspected fungal septic emboli in lungs. Patient used 2 L NC at home. CT Chest 09/13 revealed bilateral lower lobe septic emboli as well as multiple small nodular right lung lesions, 1 is a cavitary nodule. suspicious for septic emboli. 09/20: Worsening hypoxia. Patient had HD 09/19 and 09/20 with removal of ~4L. Now requiring [address] chest showed overall worsening of ill-defined bilateral nodular infiltrates, primarily in the right upper lobe. Antibiotics switched to meropenem and daptomycin. 09/20-09/24: patient requiring 8-10L high flow nasal cannula.. 09/25: patient became somnolent, febrile 101.3, afib rvr hr 130s and hypoxemic. she placed on BIPAP FiO2 60% 14/6, and received Iv lopressor. 09/26: overnight BIPAP settings increased to 16/6, FIO2 80%. this morning she has persistent respiratory acidosis and signs of hemodynamic decline ( hypotensive, high fevers). I discuss case with Dr Ledesma, will transfer patient to ICU. Qualifiers: Respiratory failure complication: hypoxia Qualified Code(s): J96.21 - Acute and chronic respiratory failure with hypoxia (2) Fever Current Visit: Yes Status: Acute Assessment and plan: secondary to pulmonary infection. fever up to 103 this morning. blood cultures taken. patient on HD and producing minimal urine. CXR 09/25 showed unchanged bilateral airspace disease. 09/25: serology positive for B(1,3)D glucan. suspected pulmonary aspergillosis. patient started on voriconazole 09/23. continue current antimicrobials. IV tylenol. gentle fluid hydration. Qualifiers: Fever type: due to other condition Qualified Code(s): R50.81 - Fever presenting with conditions classified elsewhere (3) Acute metabolic encephalopathy Current Visit: Yes Status: Acute Assessment and plan: 09/24: New episode of metabolic encephalopathy. secondary to infection/sepsis, respiratory acidosis. she had episodes of delirium overnight and received IV ATivan Patient developed post-op metabolic encephalopathy 09/06 that was multifactorial due to infection, prolonged hospitalization, age, suspected early signs of dementia at home, recent surgery. This resolved by 09/16. (4) Invasive pulmonary aspergillosis Current Visit: Yes Status: Suspected (5) Bacteremia due to Enterococcus Current Visit: Yes Status: Acute Assessment and plan: 09/07 Patient has a Right dialysis CVC placed 09/08 Blood culture drawn due to leukocytosis and grew VRE 05/08 set 09/09 started on IV Zyvox. 09/11 Blood cultures, peripherally are negative 09/13 blood cultures x1 from Right Dialysis CVC grew Staphylococcus hominis. peripheral blood cultures NGTD. 09/15 Dialysis catheter was removed, tip culture NGTD. CT chest findings suggestive of septic emboli. consult DRY MILL OPERATOR. started on cefepime and continue on Zyvox day 7. 09/16 Unsuccessful VIC attempt. Peripheral blood cultures negative. 09/19: Ct abdomen and pelvis shows increase in size of nodular densities within the right middle lobe most compatible with pneumonia, unchanged in size heterogeneous elongated focus within the right psoas muscle suspicious for hematoma. continue Daptomycin (start date 09/20). (6) Acute kidney injury superimposed on CKD Current Visit: Yes Status: Acute Assessment and plan: s/p Right CVC and HD 09/07, 09/08, 09/09, 09/12, 09/14. 09/19: s/p dialysis catheter. HD 09/19, 09/20, 09/23, 09/24. Appreciate nephrology input. close monitoring. avoid nephrotoxic agents as possible. (7) Anemia Current Visit: Yes Status: Chronic Assessment and plan: secondary to GI bleed and right psoas hematoma. On admission, patient had blood loss anemia due to colonic angiodysplasia in the setting of anticoagulation. She underwent hemicolectomy 09/06. 09/14 Hgb dropped to 7.4, transfused 2 units of PRBC during dialysis. 09/15: Pt had CT abdomen and pelvis showing an elongated hyperdense collection within the right psoas muscle. consider hematoma, phlegmon or mass. 09/20 hgb is 7.6. transfused 1 unit PRBC during HD. close monitor. No external bleeding. 09/23: Hb at 7.3. she received 1 unit PRBC. close monitor. Qualifiers: Anemia type: iron deficiency Iron deficiency anemia type: unspecified iron deficiency Qualified Code(s): D50.9 - Iron deficiency anemia, unspecified (8) Thrombocytopenia Current Visit: Yes Status: Acute Assessment and plan: multifactorial due to infection, +/-Zyvox. platelets are trending up to 128. (9) GIB (gastrointestinal bleeding) Current Visit: Yes Status: Acute Assessment and plan: Secondary to colonic angiodysplasia in the setting of anticoagulation s/p hemicolectomy 09/06 Appreciate surgery input. 09/08 Hgb at 6.5 post-surgery, she Received 2 units PRBCS Qualifiers: GI bleed type/associated pathology: unspecified gastrointestinal hemorrhage type Qualified Code(s): K92.2 - Gastrointestinal hemorrhage, unspecified (10) Angiodysplasia of colon Current Visit: Yes Status: Acute Assessment and plan: plan as GI bleed (11) Atrial fibrillation with RVR Current Visit: Yes Status: Acute Assessment and plan: 09/11 she developed Refractory Aflutter requiring cardizem drip, cardiology was consulted 09/14: Hgb dropped to 7.4 and fecal occult blood is positive, stop heparin drip. 09/15: switched to oral metoprolol continue oral metoprolol and IV metoprolol prn. (12) CHF (congestive heart failure) Current Visit: Yes Status: Chronic Assessment and plan: plan as above Qualifiers: Congestive heart failure type: diastolic Congestive heart failure chronicity: chronic Qualified Code(s): I50.32 - Chronic diastolic (congestive ) heart failure (13) CKD (chronic kidney disease) stage 4, GFR 15-29 ml/min Current Visit: Yes Status: Chronic Assessment and plan: As in ELLE on CKD (14) Diabetes mellitus Current Visit: Yes Status: Chronic Assessment and plan: DM with Hyperglycemia possibly secondary to Starting TPN 09/15: off TPN and insulin drip. 09/17: Glucose level of 63 at 4 AM. very somnolent. insulin sliding scale. Qualifiers: Diabetes mellitus type: type 2 Diabetes mellitus complication status: with kidney complications Diabetes mellitus complication detail: with chronic kidney disease Diabetes mellitus 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 insulin use: unspecified detention insulin use status Chronic kidney disease stage: stage 4 (severe) Qualified Code(s): E11.22 - Type 2 diabetes mellitus with diabetic chronic kidney disease ; N18.4 - Chronic kidney disease, stage 4 (severe) (15) Oropharyngeal dysphagia Current Visit: Yes Status: Resolved Assessment and plan: unable to perform VIC patient passed barium swallow study 09/19 - Subjective Interval history: patient is wearing BIPAP and very somnolent. She moves her arms to tactile stimuli but does not open her eyes. - Constitutional Vitals: Temp Pulse Resp BP Pulse Ox 99.4 F 88 12 83/56 100 09/26/16 07:56 09/26/16 07:56 09/26/16 07:56 09/26/16 07:56 09/26/16 07:56 General appearance: Present: obese Exam: somnolent. moves her arms to tactile stimuli. not opening her eyes, non-verbal, not following commands. - Respiratory Respiratory exam: Present: rales (diffuse crackles at lower lung schwarz.) - Cardiovascular Cardiovascular exam: Present: RRR - GI/Abdominal GI/Abdominal exam: Present: soft. Absent: distended Additional comments: surgical wound: there is a small packing at the incision site with serosanguinolent discharge. - Extremities Exam Extremities exam: Absent: pedal edema - Back Exam Back exam: Absent: CVA tenderness (L), CVA tenderness (R) - Neurological Exam Neurological exam: Present: alert, oriented X3. Absent: facial droop, speech deficit Internal Medicine: Result - Labs CBC & Chem 7: 09/26/16 04:00 09/26/16 04:00 Labs: Short CBC 09/25/16 09/26/16 Range/Units 17:40 04:00 WBC 7.3 10.7 (4.3-11.1) K/mcL Hgb 8.6 L 9.0 L (11.5-15.4) g/dL Hct 27.6 L 29.3 L (35.3-44.9) % Plt Count 88 L 128 L (140-400) K/mcL Neutrophils # 4.0 6.2 (1.6-8.9) K/mcL BMP 09/25/16 09/25/16 09/26/16 06:30 17:40 04:00 Sodium 136 133 L 135 L Potassium 4.5 D 4.7 H 5.5 H Chloride 101 100 101 Carbon Dioxide 25 21 20 BUN 32 H D 39 H 42 H Creatinine 3.11 H D 3.63 H 4.10 H Glucose 69 L 346 H 184 H Calcium 8.1 L 8.0 L 8.3 L Liver Function 09/25/16 09/26/16 Range/Units 08:20 04:00 Total Bilirubin 0.5 0.5 (0.2-1.2) mg/dL Direct Bilirubin 0.3 0.3 (0.0-0.5) mg/dL AST 30 59 H (5-34) Units/L ALT 23 30 (0-55) Units/L Alkaline Phosphatase 83 109 (38-126) Units/L Albumin 1.8 L 1.8 L (3.5-5.0) g/dL - ABG Interpretation ABG results: ABG ABG pH 7.23 pH Units (7.32-7.45) L 09/26/16 08:12 ABG pCO2 56 mmHg (35-45) H 09/26/16 08:12 ABG pO2 97 mmHg (85-104) 09/26/16 08:12 ABG O2 Saturation 96 % (95-98) 09/26/16 08:12 PT/INR, D-dimer PT 11.1 Seconds (9.4-12.1) 09/18/16 04:38 - Impressions Impressions Chest X-Ray 09/25/16 15:36 IMPRESSION: Uppercase findings similar the prior study showing multifocal bilateral airspace disease. D/ / Shahla Barahona Cha, MD / Shahla Barahona Cha, MD Interpreting Provider: Shahla Barahona Cha, MD - VTE Documentation of Mechanical Device: Intermittent pneumatic compression device Consult Discharge Plan - Plan Referrals: Edith Peña CNP [Advanced Practice Nurse] - 09/26/16 10:15 am Kj Yost MD [Partnered Physician] - Therese Garcia CNP [Primary Care Provider] - () Prudence Escobedo MD [Partnered Physician] - 10/11/16 3:50 pm ()
[2016-09-26] MEDS: Magnesium Oxide 400 MG TABLET PO SCH (09:39)
[2016-09-26] MEDS: Furosemide 40 MG TABLET PO SCH (09:39)
[2016-09-26] MEDS: Nystatin SUSP 5 ML UD.LIQ PO SCH ×2 (09:39→12:22)
[2016-09-26] MEDS: Insulin LISPRO 300 UNITS/3 ML VIAL SQ SCH ×2 (09:43→12:00)
[2016-09-26] MEDS: Miconazole w/zinc oxide&karaya 92 APPL/92 GM TUBE TP SCH (09:46)
[2016-09-26] MEDS: Pantoprazole 40 MG VIAL IVP SCH (09:46)
[2016-09-26] MEDS: Nystatin POWDER 30 GM BOTTLE TP SCH (09:46)
[2016-09-26] MEDS ORDERED: Norepinephrine 4 MG in D5% in Water 250 ML IVC SCH (11:30)
--- NOTE | 2016-09-26 12:50 | Nephrology Progress Note ---
Date of Encounter: 09/26/16 Time of Encounter: 12:46 - Assessment and Plan (1) Acute kidney injury superimposed on CKD Current Visit: Yes Status: Acute Patient is dialysis dependent. Last HD Monday and Last UF Monday. Planned for renal replacement therapy today, but patient is transferring to [facility]. Renal dose medications. Patient has poor prognosis. (2) Anemia Current Visit: Yes Status: Chronic Follow hemoglobin. Transfuse as needed. Management per primary team. Qualifiers: Anemia type: iron deficiency Iron deficiency anemia type: unspecified iron deficiency Qualified Code(s): D50.9 - Iron deficiency anemia, unspecified (3) HCAP (healthcare-associated pneumonia) Current Visit: Yes Status: Acute Per primary team and pulmonary. Patient with rales and scattered rhonchi on exam. . Antifungal agent started. Continue broad spectrum antimicrobial. Patient's sepsis worsened overnight and it clincally looks like worsening of her fungal pneumonia. Continue antimicrobials and agree with ID consult. Family has requested transfer to [facility]. (4) DVT prophylaxis Current Visit: Yes Status: Acute per primary team. (5) Hypertension Current Visit: Yes Status: Chronic Blood pressure low secondary to sepsis. Will avoid UF on dialysis unless needed for respiratory function. Qualifiers: Hypertension type: essential hypertension Qualified Code(s): I10 - Essential (primary) hypertension Subjective Principal diagnosis: ELLE on CKD, COPD, PAF Interval history: Patient seen and evaluated earlier this morning. She was in the ICU on BiPap, but not responding. ROS was unobtainable. Overnight her sepsis progressed according to documentation. I spoke to the ICU team a few hours later and the family had requested a transfer to [facility] and the transfer is pending. Objective - Vital Signs Vital signs: Vital Signs Temp Pulse Resp BP Pulse Ox 09/26/16 12:25 98.8 F 09/26/16 11:30 90 09/26/16 11:00 91 15 91/58 100 09/26/16 09:15 90 09/26/16 07:56 99.4 F 88 12 83/56 100 09/26/16 03:45 102.3 F H 96 23 90/74 97 09/26/16 03:40 20 90/70 96 09/26/16 02:58 103.4 F H 09/26/16 00:00 100.1 F H 91 20 112/64 92 09/25/16 23:35 16 121/64 92 09/25/16 20:00 101.4 F H 89 20 97/61 94 09/25/16 19:45 20 92 09/25/16 17:12 100.9 F H 09/25/16 16:59 101.6 F H 98 32 124/79 96 09/25/16 15:39 101 09/25/16 15:28 25 127/70 90 Intake and Output 09/25/16 09/26/16 09/26/16 23:59 07:59 15:59 Intake Total 0 / 0 0 / 0 Output Total 100 / 100 Balance 0 / 0 -100 / -100 Intake: Oral 0 / 0 0 / 0 Output: Catheter 100 / 100 Other: Meal Dinner Percent of Meal Consumed 0% Weight 89.3 kg Blood Glucose* 164 196 190 Patient Weight 09/26/16 23:59 Weight 89.3 kg - General Appearance General appearance: Present: well-developed, well-nourished, chronically ill Exam: On Bipap machine. EENT: Present: ATNC Respiratory: Present: course breath sounds Cardiology: Present: no edema, regular rate Gastrointestinal: Present: no tenderness Integumentary: Present: warm and dry Additional Comments: Not responding to verbal commands. Somnolent. Musculoskeletal: Present: no cyanosis - Lab 09/26/16 04:00 09/26/16 04:00 Most recent lab results ABG pH 7.23 pH Units (7.32-7.45) L 09/26/16 08:12 ABG pCO2 56 mmHg (35-45) H 09/26/16 08:12 ABG pO2 97 mmHg (85-104) 09/26/16 08:12 ABG HCO3 23.5 mEQ/L (21-27) 09/26/16 08:12 ABG O2 Saturation 96 % (95-98) 09/26/16 08:12 Calcium 8.3 mg/dL (8.6-10.8) L 09/26/16 04:00 Phosphorus 5.0 mg/dL (2.3-4.7) H D 09/26/16 04:00 Magnesium 2.1 mg/dL (1.6-2.6) 09/26/16 04:00 Urine Creatinine 40 mg/dL 08/25/16 13:19 Urine Sodium 30.0 mEq/L 08/25/16 13:19 Urine Total Protein 22 mg/dL (1-14) H 08/24/16 14:18 - VTE Documentation of Mechanical Device: Intermittent pneumatic compression device Consult Discharge Plan - Plan Referrals: Edith Peña CNP [Advanced Practice Nurse] - 09/26/16 10:15 am Kj Yost MD [Partnered Physician] - Therese Garcia CNP [Primary Care Provider] - () Prudence Escobedo MD [Partnered Physician] - 10/11/16 3:50 pm ()
[2016-09-26] MEDS ORDERED: Lacri-Lube 3.5 GM TUBE BOTH EYES PRN (12:59)
--- NOTE | 2016-09-26 13:18 | Infectious Disease Progress No ---
Date of Encounter: 09/26/16 Time of Encounter: 13:15 - Assessment and Plan (1) Leukopenia Status: Acute Resolved. Likley drug-induced (Zyvox). Antibiotics switched. Continue to trend. Qualifiers: Leukopenia type: neutropenia Neutropenia type: unspecified Qualified Code (s): D70.9 - Neutropenia, unspecified (2) Thrombocytopenia Status: Acute Etiology unclear. HIT vs. infection-related. Platelets up to 128.. Heparin discontinued per the primary team. No signs of active bleeding noted. Management per the primary team. (3) Fever Status: Acute Etiology likely secondary to fungal PNA. The patient spiked a fever with a Tmax of 103.4 in the last 24 hours. Repeat blood cultures drawn 09/16/16 and 09/18/16 are negative and NGTD, respectively. C. diff negative. Qualifiers: Fever type: due to other condition Qualified Code(s): R50.81 - Fever presenting with conditions classified elsewhere (4) Bacteremia due to Enterococcus Status: Acute Source unclear, but possibly intra-abdominal vs. psoas muscle mass vs. dialysis catheter infection. Blood culture drawn 09/08/16 came back positive 1/1 set for VRE. Repeat blood cultures drawn 09/11/16 are negative x 2 sets. Repeat blood cultures drawn 09/13/16 are positive 1/2 sets (from the TDC) for S. hominis. Peripheral stick blood culture remains NGTD. Additional blood cultures drawn from the TDC 09/14/16 are negative. Additional blood cultures drawn 09/16/16 (peripheral) are negative x 2 sets. Additional blood cultures drawn 09/18/16 (1 peripheral and 1 PICC) are negative as well. Clinical exam reveals no evidence of endocarditis stigmata. However, due to the presence of possible septic emboli and the new-onset of A-fib RVR, IE is of concern. VIC unsuccessful. Repeat VIC deferred by the cardiology team. The patient has three minor Modified Pacheco's Criteria --> possibe IE. Started on Zyvox 09/09 per the primary team due to needing coverage for PNA and daptomycin not penetrating lung tissue. Zyvox was likely contributing to the patient's leukopenia. Zyvox discontinued and Daptomycin started. Continue Daptomycin 6mg/kg IV Q48H, dosed for HD. Give after HD on dialysis days. The patient has completed 14 days of IV antibiotics, which is likely adequate treatment, but she will likely require prolonged IV antibiotic therapy due to PNA. Baseline CK level 12. Repeat CK level now. Add to AM labs. (5) Bacteremia due to Staphylococcus Status: Acute Source likely the temporary dialysis catheter --> true infection vs. contaminant ? Blood culture drawn 09/13/16 from the HD catheter is positive 1/ set for S. hominis. Blood culture drawn 09/13/16 from a peripheral stick at the same time is negative. Additional blood cultures drawn 09/14/16 (from the TDC) are negative. Additional blood cultures drawn 09/16/16 (peripheral) are negative x 2 sets. Additional blood cultures drawn 09/18/16 (1 peripheral and 1 PICC) are negative as well. TDC was removed 09/15/16. Tip culture was negative. No further treatment indicated. (6) HCAP (healthcare-associated pneumonia) Status: Acute Appears worse on imaging. The patient is still requiring high FiO2. Causative organism Aspergillus fumigatus. CXR completed on admission revealed bilateral perihilar infiltrates. Repeat CXR completed 09/13/16 showed bibasilar atelectasis with pleural effusion. CT of the chest completed 09/13/16 showed bibasilar airspace disease with multiple small nodular lesions in the right lung with at least 1 cavitary nodule concerning for septic emboli. Patient previous treated with 8 days of IV Cefepime. CT of the abdomen and pelvis completed 09/19/16 shows increase in size of nodular densitites within the right middle lobe with interval development of nodular densities with the right lower lobe most consistent with pneumonia. Basilar opacities in the bilateral lung bases with air bronchograms are also present, likely representing atelectasis, but superimposed PNA cannot be ruled out. Discussed with radiologist who states that pulmonary nodules are worse since last CT scan. Pulmonology notes reviewed. Input appreciated. Swallow study negative for aspiration. The patient has had continued worsening respiratory status over the weekend and has had increasing FiO2 requirements. She has become BIPAP dependent. Per pulmonology, she will require intubation soon. The family has requested transfer to a tertiary care center. Fungitell is positive. Sputum culture is positive for Aspergillus fumigatus. AFB smear negative. Continue Meropenem 500mg IV Q24H, dosed for HD. Give after HD on dialysis days. Continue Daptomycin as above. Continue voriconazole 300mg PO Q12H. Duration of treatment depends on the clinical picture. Monitor renal function and dose-adjust antibiotics. (7) Cavitary lesion of lung Status: Acute CT of the chest completed 09/13/16 showed bilateral lower lobe airspace disease with multiple nodular lesions in the right lung with at least 1 cavitary lesion concerning for septic emboli. Based on the patient's recent bacteremia, septic emboli is a possibility. Continue antibiotics as above. (8) Mass of psoas muscle Status: Acute CT of the abdomen and pelvis completed 09/15/16 showed a hyperdense collection in the right psoas muscle suspicious for hematoma vs. phlegmon vs. mass. Etiology not entirely clear.--> ? source of bacteremia RP UTS unyielding. Repeat CT of the abdomen and pelvis 09/19/16 shows re-demonstration of the mass in the right psoas muscle, unchanged from previous CT. Discussed with radiologist --> most likely hematoma based on CT findings. (9) Acute kidney injury superimposed on CKD Status: Acute The patient has required SHOE STITCHER ODD with the placement of a temporary dialysis catheter. Nephrology consulted and following. ELLE worse today. Management per the nephrology team. Dose-adjust antibiotics for HD and avoid nephrotoxins as able. (10) Acute and chronic respiratory failure Status: Chronic Likely multifactorial--> PNA, fluid overload, septic emboli, COPD. Overall, the patient's respiratory status is worse. She is requiring high FiO2 via the BIPAP ATC. She has been transferred to the ICU. Intubation is likely. Pulmonology has been consulted and is following. Further management per the nephrology team. Qualifiers: Respiratory failure complication: unspecified whether with hypoxia or hypercapnia Qualified Code(s): J96.20 - Acute and chronic respiratory failure , unspecified whether with hypoxia or hypercapnia (11) GIB (gastrointestinal bleeding) Status: Acute Status post colonoscopy 08/31/[address] Escobedo which revealed seven colonic angioectasias. Right hemicolectomy recommended. Status post extended right hemicolectomy 09/05/[address] Myo. Operative report reviewed. Hgb stable. Management per the general surgery and GI teams. Qualifiers: GI bleed type/associated pathology: unspecified gastrointestinal hemorrhage type Qualified Code(s): K92.2 - Gastrointestinal hemorrhage, unspecified (12) Status post right hemicolectomy Status: Acute POD #20. Status post extended right hemicolectomy with extensive KACY 09/06/[address] Moy. Further management per the surgery team. (13) Acute exacerbation of chronic obstructive airways disease Status: Acute Pulmonology consulted and following. (14) Anemia Status: Chronic Likely secondary to GI bleed. Hgb stable. Management per the primary and surgery teams. Qualifiers: Anemia type: iron deficiency Iron deficiency anemia type: unspecified iron deficiency Qualified Code(s): D50.9 - Iron deficiency anemia, unspecified (15) Atrial fibrillation with RVR Status: Acute Patient with intermittent periods of A-fib RVR. Management per the primary team. (16) Leukocytosis Status: Resolved The patient had a WBC of 16 post-op--? reactive vs. infectious etiology. Resolved. Qualifiers: Leukocytosis type: unspecified Qualified Code(s): D72.829 - Elevated white blood cell count, unspecified (17) CHF (congestive heart failure) Status: Chronic Qualifiers: Congestive heart failure type: diastolic Congestive heart failure chronicity: chronic Qualified Code(s): I50.32 - Chronic diastolic (congestive ) heart failure (18) CKD (chronic kidney disease) stage 4, GFR 15-29 ml/min Status: Chronic (19) Diabetes mellitus Status: Chronic Qualifiers: Diabetes mellitus type: type 2 Diabetes mellitus complication status: with kidney complications Diabetes mellitus complication detail: with chronic kidney disease Diabetes mellitus halfway insulin use: unspecified halfway insulin use status Chronic kidney disease stage: stage 4 (severe) Qualified Code(s): E11.22 - Type 2 diabetes mellitus with diabetic chronic kidney disease ; N18.4 - Chronic kidney disease, stage 4 (severe) (20) Oral candidiasis Status: Acute Likely secondary to IV antibiotic use. Improved. Continue Nystatin swish and swallow. - Subjective Interval history: Patient seen and examined. Weekend notes and acute events reviewed. Patient is somnolent and responsive only to painful stimuli on exam. Per the patient's daughters, the patient has had minimal PO intake over the past few days. She has had increasing oxygen requirements with sustained a-fib RVR and is currently on BIPAP. The patient does not answer questions or follow commands. Voriconazole was started Monday due to non-candidal fungal elements found in the sputum. Aspergillus fumigatus has been isolated in the sputum. She continues to require dialysis with last HD session Monday and UF on Monday. The patient's family has requested transfer to a tertiary care center. Infect Dis PN-Objective Data - Labs CBC & Chem 7: 09/26/16 04:00 09/26/16 04:00 Labs: Laboratory Results - last 24 hr 09/22/16 09/25/16 09/25/16 08:50 05:51 07:43 WBC RBC Hgb Hct MCV MCH MCHC RDW Plt Count MPV Immature Gran % Seg Neutrophils % Band Neutrophils % Lymphocytes % Monocytes % Eosinophils % Basophils % Metamyelocytes % Myelocytes % Neutrophils # Lymphocytes # Monocytes # Eosinophils # Basophils # Nucleated RBCs/100 WBC Reactive Lymphocytes Toxic Granulation Platelet Estimate Large Platelets Polychromasia Basophilic Stippling Anisocytosis ABG pH ABG pCO2 ABG pO2 ABG HCO3 ABG Total CO2 ABG O2 Saturation ABG Base Excess Respiration Rate Blood Gas Modality Inspired O2 PEEP Sodium Potassium Chloride Carbon Dioxide BUN Creatinine Est GFR ( Amer) Est GFR (Non-Af Amer) BUN/Creatinine Ratio Glucose POC Glucose 60 75 Calculated Osmolality Calcium Phosphorus Magnesium Total Bilirubin Direct Bilirubin Indirect Bilirubin AST ALT Alkaline Phosphatase Serum Total Protein Albumin Globulin Albumin/Globulin Ratio Blastomyces Ab Comp Fx <1:8 09/25/16 09/25/16 09/25/16 08:32 11:07 15:35 WBC RBC Hgb Hct MCV MCH MCHC RDW Plt Count MPV Immature Gran % Seg Neutrophils % Band Neutrophils % Lymphocytes % Monocytes % Eosinophils % Basophils % Metamyelocytes % Myelocytes % Neutrophils # Lymphocytes # Monocytes # Eosinophils # Basophils # Nucleated RBCs/100 WBC Reactive Lymphocytes Toxic Granulation Platelet Estimate Large Platelets Polychromasia Basophilic Stippling Anisocytosis ABG pH 7.28 L ABG pCO2 52 H ABG pO2 50 L* ABG HCO3 24.4 ABG Total CO2 26.0 ABG O2 Saturation 80 L ABG Base Excess -2.5 L Respiration Rate 12 Blood Gas Modality BIPAP Inspired O2 50 PEEP 6 Sodium Potassium Chloride Carbon Dioxide BUN Creatinine Est GFR ( Amer) Est GFR (Non-Af Amer) BUN/Creatinine Ratio Glucose POC Glucose 71 135 H Calculated Osmolality Calcium Phosphorus Magnesium Total Bilirubin Direct Bilirubin Indirect Bilirubin AST ALT Alkaline Phosphatase Serum Total Protein Albumin Globulin Albumin/Globulin Ratio Blastomyces Ab Comp Fx 09/25/16 09/25/16 09/25/16 16:08 17:09 17:10 WBC RBC Hgb Hct MCV MCH MCHC RDW Plt Count MPV Immature Gran % Seg Neutrophils % Band Neutrophils % Lymphocytes % Monocytes % Eosinophils % Basophils % Metamyelocytes % Myelocytes % Neutrophils # Lymphocytes # Monocytes # Eosinophils # Basophils # Nucleated RBCs/100 WBC Reactive Lymphocytes Toxic Granulation Platelet Estimate Large Platelets Polychromasia Basophilic Stippling Anisocytosis ABG pH 7.28 L ABG pCO2 53 H ABG pO2 74 L ABG HCO3 24.9 ABG Total CO2 26.5 H ABG O2 Saturation 93 L ABG Base Excess -2.1 L Respiration Rate Blood Gas Modality BIPAP Inspired O2 60 PEEP Sodium Potassium Chloride Carbon Dioxide BUN Creatinine Est GFR ( Amer) Est GFR (Non-Af Amer) BUN/Creatinine Ratio Glucose POC Glucose 380 H 374 H Calculated Osmolality Calcium Phosphorus Magnesium Total Bilirubin Direct Bilirubin Indirect Bilirubin AST ALT Alkaline Phosphatase Serum Total Protein Albumin Globulin Albumin/Globulin Ratio Blastomyces Ab Comp Fx 09/25/16 09/25/16 09/25/16 17:40 17:40 21:54 WBC 7.3 RBC 3.04 L Hgb 8.6 L Hct 27.6 L MCV 90.8 MCH 28.3 MCHC 31.2 L RDW 15.9 H Plt Count 88 L MPV 11.7 Immature Gran % 15.3 H Seg Neutrophils % 54.1 Band Neutrophils % Lymphocytes % 24.4 Monocytes % 4.1 Eosinophils % 1.0 Basophils % 1.1 Metamyelocytes % Myelocytes % Neutrophils # 4.0 Lymphocytes # 1.8 Monocytes # 0.3 Eosinophils # 0.1 Basophils # 0.1 Nucleated RBCs/100 WBC 2.0 H Reactive Lymphocytes Toxic Granulation Platelet Estimate Decreased L Large Platelets Polychromasia 1+ A Basophilic Stippling 1+ A Anisocytosis 1+ A ABG pH ABG pCO2 ABG pO2 ABG HCO3 ABG Total CO2 ABG O2 Saturation ABG Base Excess Respiration Rate Blood Gas Modality Inspired O2 PEEP Sodium 133 L Potassium 4.7 H Chloride 100 Carbon Dioxide 21 BUN 39 H Creatinine 3.63 H Est GFR ( Amer) 15 L Est GFR (Non-Af Amer) 12 L BUN/Creatinine Ratio 11 Glucose 346 H POC Glucose 164 H Calculated Osmolality 299 Calcium 8.0 L Phosphorus Magnesium Total Bilirubin Direct Bilirubin Indirect Bilirubin AST ALT Alkaline Phosphatase Serum Total Protein Albumin Globulin Albumin/Globulin Ratio Blastomyces Ab Comp Fx 09/26/16 09/26/1609/26/17 03:49 04:00 04:00 WBC 10.7 RBC 3.22 L Hgb 9.0 L Hct 29.3 L MCV 91.0 MCH 28.0 MCHC 30.7 L RDW 16.4 H Plt Count 128 L MPV 11.9 Immature Gran % Seg Neutrophils % 54.0 Band Neutrophils % 4.0 Lymphocytes % 30.0 Monocytes % 6.0 Eosinophils % Basophils % Metamyelocytes % 4.0 H Myelocytes % 2.0 H Neutrophils # 6.2 Lymphocytes # 3.2 Monocytes # 0.6 Eosinophils # Basophils # Nucleated RBCs/100 WBC 2.6 H Reactive Lymphocytes Present A Toxic Granulation Present A Platelet Estimate Slight Decrease L Large Platelets Present A Polychromasia 1+ A Basophilic Stippling Anisocytosis 1+ A ABG pH ABG pCO2 ABG pO2 ABG HCO3 ABG Total CO2 ABG O2 Saturation ABG Base Excess Respiration Rate Blood Gas Modality Inspired O2 PEEP Sodium 135 L Potassium 5.5 H Chloride 101 Carbon Dioxide 20 BUN 42 H Creatinine 4.10 H Est GFR ( Amer) 13 L Est GFR (Non-Af Amer) 11 L BUN/Creatinine Ratio 10 Glucose 184 H POC Glucose 180 H Calculated Osmolality 295 Calcium 8.3 L Phosphorus 5.0 H D Magnesium 2.1 Total Bilirubin 0.5 Direct Bilirubin 0.3 Indirect Bilirubin 0.2 AST 59 H ALT 30 Alkaline Phosphatase 109 Serum Total Protein 5.7 L Albumin 1.8 L Globulin 3.9 H Albumin/Globulin Ratio 0.5 L Blastomyces Ab Comp Fx 09/26/16 09/26/16 09/26/16 04:55 08:12 09:18 WBC RBC Hgb Hct MCV MCH MCHC RDW Plt Count MPV Immature Gran % Seg Neutrophils % Band Neutrophils % Lymphocytes % Monocytes % Eosinophils % Basophils % Metamyelocytes % Myelocytes % Neutrophils # Lymphocytes # Monocytes # Eosinophils # Basophils # Nucleated RBCs/100 WBC Reactive Lymphocytes Toxic Granulation Platelet Estimate Large Platelets Polychromasia Basophilic Stippling Anisocytosis ABG pH 7.24 L 7.23 L ABG pCO2 61 H 56 H ABG pO2 85 97 ABG HCO3 26.1 23.5 ABG Total CO2 28.0 H 25.2 ABG O2 Saturation 94 L 96 ABG Base Excess -1.7 -4.2 L Respiration Rate Blood Gas Modality BIPAP BIPAP Inspired O2 80 80 PEEP Sodium Potassium Chloride Carbon Dioxide BUN Creatinine Est GFR ( Amer) Est GFR (Non-Af Amer) BUN/Creatinine Ratio Glucose POC Glucose 226 H Calculated Osmolality Calcium Phosphorus Magnesium Total Bilirubin Direct Bilirubin Indirect Bilirubin AST ALT Alkaline Phosphatase Serum Total Protein Albumin Globulin Albumin/Globulin Ratio Blastomyces Ab Comp Fx 09/26/16 11:52 WBC RBC Hgb Hct MCV MCH MCHC RDW Plt Count MPV Immature Gran % Seg Neutrophils % Band Neutrophils % Lymphocytes % Monocytes % Eosinophils % Basophils % Metamyelocytes % Myelocytes % Neutrophils # Lymphocytes # Monocytes # Eosinophils # Basophils # Nucleated RBCs/100 WBC Reactive Lymphocytes Toxic Granulation Platelet Estimate Large Platelets Polychromasia Basophilic Stippling Anisocytosis ABG pH ABG pCO2 ABG pO2 ABG HCO3 ABG Total CO2 ABG O2 Saturation ABG Base Excess Respiration Rate Blood Gas Modality Inspired O2 PEEP Sodium Potassium Chloride Carbon Dioxide BUN Creatinine Est GFR ( Amer) Est GFR (Non-Af Amer) BUN/Creatinine Ratio Glucose POC Glucose 190 H Calculated Osmolality Calcium Phosphorus Magnesium Total Bilirubin Direct Bilirubin Indirect Bilirubin AST ALT Alkaline Phosphatase Serum Total Protein Albumin Globulin Albumin/Globulin Ratio Blastomyces Ab Comp Fx Cultures: Cultures 09/25/16 08:15 Wound Culture - Preliminary Abdomen No growth. 09/21/16 17:45 Acid Fast Stain - Final Sputum 09/21/16 17:45 Respiratory Culture - Final Other-Specify in Comments Aspergillus species 09/18/16 21:30 Blood Culture - Final Peripheral Venipuncture No growth. 09/18/16 21:25 Blood Culture - Final Peripheral Central Cath, Picc No growth. 09/21/16 18:20 Cryptococcal Antigen - Final Serum 09/16/16 11:52 Blood Culture - Final Peripheral Venipuncture No growth. 09/16/16 11:45 Blood Culture - Final Peripheral Venipuncture No growth. 09/14/16 15:39 Blood Culture - Final Central Venous Catheter No growth. 09/14/16 15:39 Blood Culture - Final Central Venous Catheter No growth. 09/18/16 18:20 Urine Culture - Final Urine,Clean Catch No growth. 09/13/16 15:40 Blood Culture - Final Central Venous Catheter Staphylococcus hominis 09/13/16 15:08 Blood Culture - Final Peripheral Venipuncture No growth. 09/15/16 16:25 Catheter Tip Culture - Final Intravenous or Arterial Cath No growth. 09/11/16 04:19 Blood Culture - Final Peripheral Venipuncture No growth. 09/11/16 04:15 Blood Culture - Final Peripheral Venipuncture No growth. 09/13/16 13:00 Urine Culture - Final Urine,Clean Catch No growth. 09/08/16 08:04 Blood Culture - Final Peripheral Venipuncture Vanc. Resistant Enterococcus Serology 09/22/16 09/21/16 09/21/16 Range/Units 08:50 23:48 18:20 Urine Color (Yellow) Urine Clarity (Clear) Urine pH (5.0-8.0) pH Units Ur Specific [place] (1.010-1.025) Urine Protein (Neg-Trace) mg/dL Urine Glucose (UA) (Normal) mg/dL Urine Ketones (Negative) mg/dL Urine Blood (Negative) Urine Nitrite (Negative) Urine Bilirubin (Negative) Urine Urobilinogen (Normal) mg/dL Ur Leukocyte Esterase (Negative) Urine Microscopic RBC (0-3) per hpf Urine Microscopic WBC (0-3) per hpf Ur Squamous Epith Cells (None-Few) per lpf Urine Bacteria (None-Few) per hpf Hyaline Casts (None-Few) per lpf Urine Yeast (None Seen) per hpf Ur Culture Indicated? (NO) Stool Occult Blood (Negative) Stl C. diff Tox B Gene (Negative) A. baumannii (PCR) (Not Detect) Blastomyces Ab Comp Fx <1:8 (<1:8) Polly albicans (PCR) (Not Detect) C. glabrata (PCR) (Not Detect) C. krusei (PCR) (Not Detect) C. parapsilosis (PCR) (Not Detect) C. tropicalis (PCR) (Not Detect) Enterobacteriac sp PCR (Not Detect) E. cloacae complex PCR (Not Detect) Enterococcus sp PCR (Not Detect) E. coli (PCR) (Not Detect) H. influenzae (PCR) (Not Detect) Hep Bs Antigen (Nonreactive) Hep Bs Antibody mIU/mL Histoplasma Antigen <2.0 U/mL Histoplasma Ag Interp NEGATIVE (Negative) U Histopl Galactoman Ag NOT DETECTED ng/mL U Histopl Galact Ant Int NOT DETECTED (Not Detected) Klebsiella oxytoca PCR (Not Detect) Klebsiella pneumoniae (Not Detect) List. monocytogenes PCR (Not Detect) N. meningitidis (PCR) (Not Detect) A. galactomannan Ag NEGATIVE (Negative) A. galactomannan Ag Idx 0.07 Proteus species (PCR) (Not Detect) Serratia marcescens PCR (Not Detect) Staphylococcus sp PCR (Not Detect) Staph aureus (PCR) (Not Detect) mecA-Methicil Res Gene (Not Detect) Streptococcus sp PCR (Not Detect) Group A Strep DNA (Not Detect) Group B Strep (PCR) (Not Detect) Strep pneumoniae (PCR) (Not Detect) P. aeruginosa (PCR) (Not Detect) Minerva/B-Vanco Res Genes (Not Detect) KPC (blaKPC) Detect PCR (Not Detect) Beta-(1,3)-D-Glucan >500 pg/mL B-(1,3)-D-Glucan Intrp POSITIVE A (Negative) 09/18/16 09/18/16 09/14/16 Range/Units 18:20 14:20 16:11 Urine Color Yellow (Yellow) Urine Clarity Clear (Clear) Urine pH 6.0 (5.0-8.0) pH Units Ur Specific [place] 1.012 (1.010-1.025) Urine Protein 30 H (Neg-Trace) mg/dL Urine Glucose (UA) 250 H (Normal) mg/dL Urine Ketones Negative (Negative) mg/dL Urine Blood Small H (Negative) Urine Nitrite Negative (Negative) Urine Bilirubin Negative (Negative) Urine Urobilinogen Normal (Normal) mg/dL Ur Leukocyte Esterase Trace H (Negative) Urine Microscopic RBC 5-15 H (0-3) per hpf Urine Microscopic WBC 5-15 H (0-3) per hpf Ur Squamous Epith Cells Many H (None-Few) per lpf Urine Bacteria None Seen (None-Few) per hpf Hyaline Casts None Seen (None-Few) per lpf Urine Yeast Many H (None Seen) per hpf Ur Culture Indicated? YES A (NO) Stool Occult Blood Positive A (Negative) Stl C. diff Tox B Gene Negative (Negative) A. baumannii (PCR) (Not Detect) Blastomyces Ab Comp Fx (<1:8) Polly albicans (PCR) (Not Detect) C. glabrata (PCR) (Not Detect) C. krusei (PCR) (Not Detect) C. parapsilosis (PCR) (Not Detect) C. tropicalis (PCR) (Not Detect) Enterobacteriac sp PCR (Not Detect) E. cloacae complex PCR (Not Detect) Enterococcus sp PCR (Not Detect) E. coli (PCR) (Not Detect) H. influenzae (PCR) (Not Detect) Hep Bs Antigen (Nonreactive) Hep Bs Antibody mIU/mL Histoplasma Antigen U/mL Histoplasma Ag Interp (Negative) U Histopl Galactoman Ag ng/mL U Histopl Galact Ant Int (Not Detected) Klebsiella oxytoca PCR (Not Detect) Klebsiella pneumoniae (Not Detect) List. monocytogenes PCR (Not Detect) N. meningitidis (PCR) (Not Detect) A. galactomannan Ag (Negative) A. galactomannan Ag Idx Proteus species (PCR) (Not Detect) Serratia marcescens PCR (Not Detect) Staphylococcus sp PCR (Not Detect) Staph aureus (PCR) (Not Detect) mecA-Methicil Res Gene (Not Detect) Streptococcus sp PCR (Not Detect) Group A Strep DNA (Not Detect) Group B Strep (PCR) (Not Detect) Strep pneumoniae (PCR) (Not Detect) P. aeruginosa (PCR) (Not Detect) Minerva/B-Vanco Res Genes (Not Detect) KPC (blaKPC) Detect PCR (Not Detect) Beta-(1,3)-D-Glucan pg/mL B-(1,3)-D-Glucan Intrp (Negative) 09/13/16 09/13/16 09/08/16 Range/Units 15:40 13:00 08:04 Urine Color Yellow (Yellow) Urine Clarity Cloudy A (Clear) Urine pH 6.0 (5.0-8.0) pH Units Ur Specific [place] 1.012 (1.010-1.025) Urine Protein 100 H (Neg-Trace) mg/dL Urine Glucose (UA) Normal (Normal) mg/dL Urine Ketones Negative (Negative) mg/dL Urine Blood Small H (Negative) Urine Nitrite Negative (Negative) Urine Bilirubin Negative (Negative) Urine Urobilinogen Normal (Normal) mg/dL Ur Leukocyte Esterase Small H (Negative) Urine Microscopic RBC 0-3 (0-3) per hpf Urine Microscopic WBC 15-30 H (0-3) per hpf Ur Squamous Epith Cells Many H (None-Few) per lpf Urine Bacteria None Seen (None-Few) per hpf Hyaline Casts None Seen (None-Few) per lpf Urine Yeast Many H (None Seen) per hpf Ur Culture Indicated? YES A (NO) Stool Occult Blood (Negative) Stl C. diff Tox B Gene (Negative) A. baumannii (PCR) Not Detected Not Detected (Not Detect) Blastomyces Ab Comp Fx (<1:8) Polly albicans (PCR) Not Detected Not Detected (Not Detect) C. glabrata (PCR) Not Detected Not Detected (Not Detect) C. krusei (PCR) Not Detected Not Detected (Not Detect) C. parapsilosis (PCR) Not Detected Not Detected (Not Detect) C. tropicalis (PCR) Not Detected Not Detected (Not Detect) Enterobacteriac sp PCR Not Detected Not Detected (Not Detect) E. cloacae complex PCR Not Detected Not Detected (Not Detect) Enterococcus sp PCR Not Detected DETECTED A (Not Detect) E. coli (PCR) Not Detected Not Detected (Not Detect) H. influenzae (PCR) Not Detected Not Detected (Not Detect) Hep Bs Antigen (Nonreactive) Hep Bs Antibody mIU/mL Histoplasma Antigen U/mL Histoplasma Ag Interp (Negative) U Histopl Galactoman Ag ng/mL U Histopl Galact Ant Int (Not Detected) Klebsiella oxytoca PCR Not Detected Not Detected (Not Detect) Klebsiella pneumoniae Not Detected Not Detected (Not Detect) List. monocytogenes PCR Not Detected Not Detected (Not Detect) N. meningitidis (PCR) Not Detected Not Detected (Not Detect) A. galactomannan Ag (Negative) A. galactomannan Ag Idx Proteus species (PCR) Not Detected Not Detected (Not Detect) Serratia marcescens PCR Not Detected Not Detected (Not Detect) Staphylococcus sp PCR DETECTED A Not Detected (Not Detect) Staph aureus (PCR) Not Detected Not Detected (Not Detect) mecA-Methicil Res Gene DETECTED A N/A (Not Detect) Streptococcus sp PCR Not Detected Not Detected (Not Detect) Group A Strep DNA Not Detected Not Detected (Not Detect) Group B Strep (PCR) Not Detected Not Detected (Not Detect) Strep pneumoniae (PCR) Not Detected Not Detected (Not Detect) P. aeruginosa (PCR) Not Detected Not Detected (Not Detect) Minerva/B-Vanco Res Genes N/A DETECTED A (Not Detect) KPC (blaKPC) Detect PCR N/A N/A (Not Detect) Beta-(1,3)-D-Glucan pg/mL B-(1,3)-D-Glucan Intrp (Negative) 09/07/16 Range/Units 13:42 Urine Color (Yellow) Urine Clarity (Clear) Urine pH (5.0-8.0) pH Units Ur Specific [place] (1.010-1.025) Urine Protein (Neg-Trace) mg/dL Urine Glucose (UA) (Normal) mg/dL Urine Ketones (Negative) mg/dL Urine Blood (Negative) Urine Nitrite (Negative) Urine Bilirubin (Negative) Urine Urobilinogen (Normal) mg/dL Ur Leukocyte Esterase (Negative) Urine Microscopic RBC (0-3) per hpf Urine Microscopic WBC (0-3) per hpf Ur Squamous Epith Cells (None-Few) per lpf Urine Bacteria (None-Few) per hpf Hyaline Casts (None-Few) per lpf Urine Yeast (None Seen) per hpf Ur Culture Indicated? (NO) Stool Occult Blood (Negative) Stl C. diff Tox B Gene (Negative) A. baumannii (PCR) (Not Detect) Blastomyces Ab Comp Fx (<1:8) Polly albicans (PCR) (Not Detect) C. glabrata (PCR) (Not Detect) C. krusei (PCR) (Not Detect) C. parapsilosis (PCR) (Not Detect) C. tropicalis (PCR) (Not Detect) Enterobacteriac sp PCR (Not Detect) E. cloacae complex PCR (Not Detect) Enterococcus sp PCR (Not Detect) E. coli (PCR) (Not Detect) H. influenzae (PCR) (Not Detect) Hep Bs Antigen Nonreactive (Nonreactive) Hep Bs Antibody 3.83 mIU/mL Histoplasma Antigen U/mL Histoplasma Ag Interp (Negative) U Histopl Galactoman Ag ng/mL U Histopl Galact Ant Int (Not Detected) Klebsiella oxytoca PCR (Not Detect) Klebsiella pneumoniae (Not Detect) List. monocytogenes PCR (Not Detect) N. meningitidis (PCR) (Not Detect) A. galactomannan Ag (Negative) A. galactomannan Ag Idx Proteus species (PCR) (Not Detect) Serratia marcescens PCR (Not Detect) Staphylococcus sp PCR (Not Detect) Staph aureus (PCR) (Not Detect) mecA-Methicil Res Gene (Not Detect) Streptococcus sp PCR (Not Detect) Group A Strep DNA (Not Detect) Group B Strep (PCR) (Not Detect) Strep pneumoniae (PCR) (Not Detect) P. aeruginosa (PCR) (Not Detect) Minerva/B-Vanco Res Genes (Not Detect) KPC (blaKPC) Detect PCR (Not Detect) Beta-(1,3)-D-Glucan pg/mL B-(1,3)-D-Glucan Intrp (Negative) - Impressions Impressions Chest X-Ray 09/25/16 15:36 IMPRESSION: Uppercase findings similar the prior study showing multifocal bilateral airspace disease. D/ / Shahla Barahona Cha, MD / Shahla Barahona Cha, MD Interpreting Provider: Shahla Barahona Cha, MD Exam - Constitutional Vitals: Temp Pulse Resp BP Pulse Ox 98.8 F 90 15 91/58 100 09/26/16 12:25 09/26/16 11:30 09/26/16 11:00 09/26/16 11:00 09/26/16 11:00 General appearance: average body habitus, no acute distress, no febrile, no cooperative - Head Head exam: Present: atraumatic, normal inspection, normocephalic - Eye Eye exam: Present: normal appearance, PERRL Additional comments: Unable to assess EOMs due to patient not participating in exam. - ENT ENT exam: Present: mucous membranes dry - Neck Neck exam: Present: normal inspection Additional comments: TDC noted to the right neck with transparent dressing C/D/I. - Respiratory Respiratory exam: Present: decreased breath sounds (throughout), rhonchi ( scattered), tachypnea. Absent: rales, wheezes - Cardiovascular Cardiovascular exam: Present: irregular rhythm. Absent: tachycardia - GI/Abdominal GI/Abdominal exam: Present: normal bowel sounds, soft, tenderness (Patient winces and attempted to shield her abdomen with palpation of the abdomen). Absent: distended Additional comments: Midline abdominal incision dressing C/D/I. No surrounding erythema noted. Rectal tube noted with liquid brown stool. Watkins catheter noted to be draining small amount of dark yellow urine. - Extremities Exam Extremities exam: Present: normal inspection. Absent: joint swelling, pedal edema, tenderness - Neurological Exam Neurological exam: Present: altered (Minimally responsive to painful stimuli only.). Absent: facial droop - Skin Skin exam: Present: dry, intact, pallor, warm - VTE Documentation of Mechanical Device: Intermittent pneumatic compression device Consult Discharge Plan - Plan Referrals: Edith Peña CNP [Advanced Practice Nurse] - 09/26/16 10:15 am Kj Yost MD [Partnered Physician] - Therese Garcia CNP [Primary Care Provider] - () Prudence Escobedo MD [Partnered Physician] - 10/11/16 3:50 pm () - Attending Attestation I examined this patient and my medical decision-making was reviewed with the REMELT WORKER/PA/Advanced Practice Nurse/Resident Physician. I agree with the documented findings, disposition and treatment plan as described except to the extent set forth below.
--- NOTE | 2016-09-26 13:21 | Event Note ---
Date of Encounter: 09/26/16 Time of Encounter: 13:15 Procedure Note Procedure: Endotracheal intubation Date: 09/26/2016 Time: 1255 Chalk Cutter: Addy Randle DO PGY-1 Attending: Dr. Gomez Ledesma Indication: respiratory fatigue and airway protection The patient was placed in supine position. All equipment was checked and operational before beginning the procedure. Sedation was obtained using Etomidate 20 mg. The patient was easily ventilated using on BiPAP and Ambu bag. Glidescope was inserted into the oropharynx at which time a grade 1 view of the vocal cords was visualized. A 7.5 endotracheal tube was inserted and visualized going through the cords. The stylet was removed. Colorimetric change was visualized on the CO2 meter. Breath sounds were heard in both lung schwarz. here were no breath sounds auscultated over the stomach. The endotracheal tube was placed at 22 cm at the lip line. Attending physician Dr. Ledesma was in attendance throughout the entirety of the procedures. A chest x-ray was ordered afterwards to assess for pneumothorax and placement of the endotracheal tube with confirmation of ETT placement in the trachea. The patient tolerated the procedure well without desaturation or hemodynamic compromise.
[2016-09-26 14:16] VITALS: BP 93/62
--- NOTE | 2016-09-26 14:23 | Discharge Summary ---
Date of Encounter: 09/26/16 Time of Encounter: 14:22 - Discharge Diagnosis (1) Invasive pulmonary aspergillosis Priority: Primary Status: Suspected (2) Acute and chronic respiratory failure Priority: Primary Status: Chronic Qualifiers: Respiratory failure complication: unspecified whether with hypoxia or hypercapnia Qualified Code(s): J96.20 - Acute and chronic respiratory failure , unspecified whether with hypoxia or hypercapnia (3) Acute exacerbation of chronic obstructive airways disease Priority: Primary Status: Acute (4) Acute kidney injury superimposed on CKD Priority: Primary Status: Acute (5) Bacteremia due to Staphylococcus Priority: Primary Status: Acute (6) Status post right hemicolectomy Priority: Primary Status: Acute (7) Fever Priority: Primary Status: Acute Qualifiers: Fever type: due to other condition Qualified Code(s): R50.81 - Fever presenting with conditions classified elsewhere (8) Chronic blood loss anemia Priority: Primary Status: Chronic (9) GIB (gastrointestinal bleeding) Priority: Primary Status: Acute Qualifiers: GI bleed type/associated pathology: unspecified gastrointestinal hemorrhage type Qualified Code(s): K92.2 - Gastrointestinal hemorrhage, unspecified (10) Angiodysplasia of colon Priority: Primary Status: Acute (11) Acute metabolic encephalopathy Priority: Secondary Status: Acute - Discharge Medications Home Medications: Budesonide/Formoterol 80/4.5 [Symbicort 80/4.5] 2 puff IH Q12H 06/22/16 [ History] Ipratropium/Albuterol Neb [Duoneb] 3 ml IH Q4HR 08/22/16 [History] Iron Polysaccharide Complex [Pro Fe] 180 mg PO DAILY 08/22/16 [History] Acetaminophen [Tylenol] 500 mg PO Q6H PRN #0 tablet 09/26/16 [Rx] Acetaminophen w/Cod 300-30 mg [Tylenol w/Codeine #3] 1 tab PO Q8HR PRN #0 tablet 09/26/16 [Rx] Budesonide/Formoterol 160/4.5 [Symbicort 160/4.5] 1 puff IH BIDR inhaler [Rx] Dextrose 50 % in Water (Syg) [Dextrose 50% (Syg)] 25 ml IVP AD PRN #0 syringe [Rx] Furosemide [Lasix] 40 mg PO DAILY tablet 09/26/16 [Rx] Insulin LISPRO [HumaLOG] 0 units SQ HS vial 09/26/16 [Rx] Insulin LISPRO [HumaLOG] 0 units SQ TIDAC vial 09/26/16 [Rx] LORazepam [Ativan] 0.25 mg PO Q6HR PRN #0 tablet 09/26/16 [Rx] LORazepam [Ativan] 0.5 mg IVP Q6HR PRN #0 vial 09/26/16 [Rx] Lacri-Lube [Lacri-lube] 1 appl BOTH EYES Q2HR PRN #0 tube 09/26/16 [Rx] Lacri-Lube [Lacri-lube] 1 appl BOTH EYES Q4HR tube 09/26/16 [Rx] Magnesium Oxide [Mag-Ox] 400 mg PO BID tablet 09/26/16 [Rx] Metoprolol [Lopressor] 2.5 mg IVP Q6HR PRN #0 vial 09/26/16 [Rx] Metoprolol [Lopressor] 50 mg PO BID tablet 09/26/16 [Rx] Miconazole w/zinc oxide&karaya [Antifungal Extra Thick] 1 appl TP TID tube [Rx] Nystatin POWDER [Nystop] 1 appl TP TID bottle 09/26/16 [Rx] Ondansetron [Zofran] 4 mg IVP Q6HR PRN #0 vial 09/26/16 [Rx] OxyCODONE Immed Rel [Roxicodone 5 MG] 2.5 mg PO Q6HR PRN #0 tablet 09/26/16 [Rx] Pantoprazole [Protonix] 40 mg IVP DAILY@0730 vial 09/26/16 [Rx] Simethicone [Gas-X] 80 mg PO TID PRN #0 tab.chew 09/26/16 [Rx] Voriconazole 300 mg PO Q12H tablet 09/26/16 [Rx] Zinc Oxide 1 appl TP QID PRN #0 each 09/26/16 [Rx] Allergies/Adverse Reactions: Allergies aspirin [ASA] Allergy (Verified 08/18/16 15:30) Swelling of Lip/Tongue/Throat NSAIDS (Non-Steroidal Anti-Inflamma Allergy (Verified 08/18/16 15:30) Swelling of Lip/Tongue/Throat Penicillins Allergy (Verified 08/18/16 15:30) Hives iron Adverse Reaction (Verified 08/18/16 15:30) Unknown Push only Labs on day of discharge: Labs from last 24 hours 09/26/16 09/26/16 09/26/16 11:52 09:18 08:12 WBC RBC Hgb Hct MCV MCH MCHC RDW Plt Count MPV Immature Gran % Seg Neutrophils % Band Neutrophils % Lymphocytes % Monocytes % Eosinophils % Basophils % Metamyelocytes % Myelocytes % Neutrophils # Lymphocytes # Monocytes # Eosinophils # Basophils # Nucleated RBCs/100 WBC Reactive Lymphocytes Toxic Granulation Platelet Estimate Large Platelets Polychromasia Basophilic Stippling Anisocytosis ABG pH 7.23 L ABG pCO2 56 H ABG pO2 97 ABG HCO3 23.5 ABG Total CO2 25.2 ABG O2 Saturation 96 ABG Base Excess -4.2 L Respiration Rate Blood Gas Modality BIPAP Inspired O2 80 PEEP Sodium Potassium Chloride Carbon Dioxide BUN Creatinine Est GFR ( Amer) Est GFR (Non-Af Amer) BUN/Creatinine Ratio Glucose POC Glucose 190 H 226 H Calculated Osmolality Calcium Phosphorus Magnesium Total Bilirubin Direct Bilirubin Indirect Bilirubin AST ALT Alkaline Phosphatase Serum Total Protein Albumin Globulin Albumin/Globulin Ratio Blastomyces Ab Comp Fx 09/26/16 09/26/16 09/26/16 04:55 04:00 04:00 WBC 10.7 RBC 3.22 L Hgb 9.0 L Hct 29.3 L MCV 91.0 MCH 28.0 MCHC 30.7 L RDW 16.4 H Plt Count 128 L MPV 11.9 Immature Gran % Seg Neutrophils % 54.0 Band Neutrophils % 4.0 Lymphocytes % 30.0 Monocytes % 6.0 Eosinophils % Basophils % Metamyelocytes % 4.0 H Myelocytes % 2.0 H Neutrophils # 6.2 Lymphocytes # 3.2 Monocytes # 0.6 Eosinophils # Basophils # Nucleated RBCs/100 WBC 2.6 H Reactive Lymphocytes Present A Toxic Granulation Present A Platelet Estimate Slight Decrease L Large Platelets Present A Polychromasia 1+ A Basophilic Stippling Anisocytosis 1+ A ABG pH 7.24 L ABG pCO2 61 H ABG pO2 85 ABG HCO3 26.1 ABG Total CO2 28.0 H ABG O2 Saturation 94 L ABG Base Excess -1.7 Respiration Rate Blood Gas Modality BIPAP Inspired O2 80 PEEP Sodium 135 L Potassium 5.5 H Chloride 101 Carbon Dioxide 20 BUN 42 H Creatinine 4.10 H Est GFR ( Amer) 13 L Est GFR (Non-Af Amer) 11 L BUN/Creatinine Ratio 10 Glucose 184 H POC Glucose Calculated Osmolality 295 Calcium 8.3 L Phosphorus 5.0 H D Magnesium 2.1 Total Bilirubin 0.5 Direct Bilirubin 0.3 Indirect Bilirubin 0.2 AST 59 H ALT 30 Alkaline Phosphatase 109 Serum Total Protein 5.7 L Albumin 1.8 L Globulin 3.9 H Albumin/Globulin Ratio 0.5 L Blastomyces Ab Comp Fx 09/26/16 09/25/16 09/25/16 03:49 21:54 17:40 WBC 7.3 RBC 3.04 L Hgb 8.6 L Hct 27.6 L MCV 90.8 MCH 28.3 MCHC 31.2 L RDW 15.9 H Plt Count 88 L MPV 11.7 Immature Gran % 15.3 H Seg Neutrophils % 54.1 Band Neutrophils % Lymphocytes % 24.4 Monocytes % 4.1 Eosinophils % 1.0 Basophils % 1.1 Metamyelocytes % Myelocytes % Neutrophils # 4.0 Lymphocytes # 1.8 Monocytes # 0.3 Eosinophils # 0.1 Basophils # 0.1 Nucleated RBCs/100 WBC 2.0 H Reactive Lymphocytes Toxic Granulation Platelet Estimate Decreased L Large Platelets Polychromasia 1+ A Basophilic Stippling 1+ A Anisocytosis 1+ A ABG pH ABG pCO2 ABG pO2 ABG HCO3 ABG Total CO2 ABG O2 Saturation ABG Base Excess Respiration Rate Blood Gas Modality Inspired O2 PEEP Sodium Potassium Chloride Carbon Dioxide BUN Creatinine Est GFR ( Amer) Est GFR (Non-Af Amer) BUN/Creatinine Ratio Glucose POC Glucose 180 H 164 H Calculated Osmolality Calcium Phosphorus Magnesium Total Bilirubin Direct Bilirubin Indirect Bilirubin AST ALT Alkaline Phosphatase Serum Total Protein Albumin Globulin Albumin/Globulin Ratio Blastomyces Ab Comp Fx 09/25/16 09/25/16 09/25/16 17:40 17:10 17:09 WBC RBC Hgb Hct MCV MCH MCHC RDW Plt Count MPV Immature Gran % Seg Neutrophils % Band Neutrophils % Lymphocytes % Monocytes % Eosinophils % Basophils % Metamyelocytes % Myelocytes % Neutrophils # Lymphocytes # Monocytes # Eosinophils # Basophils # Nucleated RBCs/100 WBC Reactive Lymphocytes Toxic Granulation Platelet Estimate Large Platelets Polychromasia Basophilic Stippling Anisocytosis ABG pH 7.28 L ABG pCO2 53 H ABG pO2 74 L ABG HCO3 24.9 ABG Total CO2 26.5 H ABG O2 Saturation 93 L ABG Base Excess -2.1 L Respiration Rate Blood Gas Modality BIPAP Inspired O2 60 PEEP Sodium 133 L Potassium 4.7 H Chloride 100 Carbon Dioxide 21 BUN 39 H Creatinine 3.63 H Est GFR ( Amer) 15 L Est GFR (Non-Af Amer) 12 L BUN/Creatinine Ratio 11 Glucose 346 H POC Glucose 374 H Calculated Osmolality 299 Calcium 8.0 L Phosphorus Magnesium Total Bilirubin Direct Bilirubin Indirect Bilirubin AST ALT Alkaline Phosphatase Serum Total Protein Albumin Globulin Albumin/Globulin Ratio Blastomyces Ab Comp Fx 09/25/16 09/25/16 09/25/16 16:08 15:35 11:07 WBC RBC Hgb Hct MCV MCH MCHC RDW Plt Count MPV Immature Gran % Seg Neutrophils % Band Neutrophils % Lymphocytes % Monocytes % Eosinophils % Basophils % Metamyelocytes % Myelocytes % Neutrophils # Lymphocytes # Monocytes # Eosinophils # Basophils # Nucleated RBCs/100 WBC Reactive Lymphocytes Toxic Granulation Platelet Estimate Large Platelets Polychromasia Basophilic Stippling Anisocytosis ABG pH 7.28 L ABG pCO2 52 H ABG pO2 50 L* ABG HCO3 24.4 ABG Total CO2 26.0 ABG O2 Saturation 80 L ABG Base Excess -2.5 L Respiration Rate 12 Blood Gas Modality BIPAP Inspired O2 50 PEEP 6 Sodium Potassium Chloride Carbon Dioxide BUN Creatinine Est GFR ( Amer) Est GFR (Non-Af Amer) BUN/Creatinine Ratio Glucose POC Glucose 380 H 135 H Calculated Osmolality Calcium Phosphorus Magnesium Total Bilirubin Direct Bilirubin Indirect Bilirubin AST ALT Alkaline Phosphatase Serum Total Protein Albumin Globulin Albumin/Globulin Ratio Blastomyces Ab Comp Fx 09/25/16 09/25/16 09/25/16 08:32 07:43 05:51 WBC RBC Hgb Hct MCV MCH MCHC RDW Plt Count MPV Immature Gran % Seg Neutrophils % Band Neutrophils % Lymphocytes % Monocytes % Eosinophils % Basophils % Metamyelocytes % Myelocytes % Neutrophils # Lymphocytes # Monocytes # Eosinophils # Basophils # Nucleated RBCs/100 WBC Reactive Lymphocytes Toxic Granulation Platelet Estimate Large Platelets Polychromasia Basophilic Stippling Anisocytosis ABG pH ABG pCO2 ABG pO2 ABG HCO3 ABG Total CO2 ABG O2 Saturation ABG Base Excess Respiration Rate Blood Gas Modality Inspired O2 PEEP Sodium Potassium Chloride Carbon Dioxide BUN Creatinine Est GFR ( Amer) Est GFR (Non-Af Amer) BUN/Creatinine Ratio Glucose POC Glucose 71 75 60 Calculated Osmolality Calcium Phosphorus Magnesium Total Bilirubin Direct Bilirubin Indirect Bilirubin AST ALT Alkaline Phosphatase Serum Total Protein Albumin Globulin Albumin/Globulin Ratio Blastomyces Ab Comp Fx 09/22/16 08:50 WBC RBC Hgb Hct MCV MCH MCHC RDW Plt Count MPV Immature Gran % Seg Neutrophils % Band Neutrophils % Lymphocytes % Monocytes % Eosinophils % Basophils % Metamyelocytes % Myelocytes % Neutrophils # Lymphocytes # Monocytes # Eosinophils # Basophils # Nucleated RBCs/100 WBC Reactive Lymphocytes Toxic Granulation Platelet Estimate Large Platelets Polychromasia Basophilic Stippling Anisocytosis ABG pH ABG pCO2 ABG pO2 ABG HCO3 ABG Total CO2 ABG O2 Saturation ABG Base Excess Respiration Rate Blood Gas Modality Inspired O2 PEEP Sodium Potassium Chloride Carbon Dioxide BUN Creatinine Est GFR ( Amer) Est GFR (Non-Af Amer) BUN/Creatinine Ratio Glucose POC Glucose Calculated Osmolality Calcium Phosphorus Magnesium Total Bilirubin Direct Bilirubin Indirect Bilirubin AST ALT Alkaline Phosphatase Serum Total Protein Albumin Globulin Albumin/Globulin Ratio Blastomyces Ab Comp Fx <1:8 Preliminary micro results at discharge 09/25/16 08:15 Wound Culture - Preliminary Abdomen No growth. - Impressions ITS Impressions Retroperitoneum Ultrasound 08/26/16 13:00 IMPRESSION: 1. No hydronephrosis. 2. Grossly stable 1.3 cm left renal cyst. D/ / 08/26/2016 13:55:30 Christine Cam MD / nic Interpreting Provider: Christine Cam MD Pelvis X-Ray 08/31/16 16:21 IMPRESSION: No acute osseous abnormality. D/ / Kei Marie MD / Kei Marie MD Interpreting Provider: Kei Marie MD Chest X-Ray 09/02/16 07:36 IMPRESSION: Bilateral perihilar infiltrates, with some increased prominence of the left perihilar infiltrate . D/ / Lalo Diego MD / Lalo Diego MD Interpreting Provider: Lalo Diego MD Guidance Needle Placement Ultrasound 09/07/16 00:00 IMPRESSION: Successful temporary hemodialysis catheter placement, which may be used immediately. The patient tolerated the procedure well. D/ / Lalo Weinstein MD / Lalo Weinstein MD Interpreting Provider: Lalo Weinstein MD Insertion Non-Tunneled Catheter 09/07/16 00:00 IMPRESSION: Successful temporary hemodialysis catheter placement, which may be used immediately. The patient tolerated the procedure well. D/ / Lalo Weinstein MD / Lalo Weinstein MD Interpreting Provider: Lalo Weinstein MD Chest X-Ray 09/07/16 12:50 IMPRESSION: Temporary hemodialysis catheter, without pneumothorax. This does appear to be within the base of the atrium. Recommend pulling this back 4 cm. I placed this catheter, and am aware of the findings. D/ / Lalo Weinstein MD / Lalo Weinstein MD Interpreting Provider: Lalo Weinstein MD Chest X-Ray 09/07/16 14:17 IMPRESSION: Enteric tube has been retracted and tip now lies at SVC/ right atrial junction. No pneumothorax. Otherwise stable exam. D/ / Addy Pierce MD / Addy Pierce MD Interpreting Provider: Addy Pierce MD Chest X-Ray 09/09/16 14:00 IMPRESSION: Line placement without pneumothorax. D/ / Shan Perez MD / Shan Perez MD Interpreting Provider: Shan Perez MD Chest X-Ray 09/13/16 11:54 IMPRESSION: Bibasilar atelectasis with persistent left pleural effusion D/ / Bon Law MD / Bon Law MD Interpreting Provider: Bon Law MD Chest CT 09/13/16 20:40 IMPRESSION: Bilateral lower lobe airspace disease as well as multiple small nodular right lung lesions which appear to be inflammatory with at least 1 cavitary nodule. These are most likely all inflammatory. Septic emboli is also considered. There is moderate limitation due to patient respiratory motion. D/ / Amandeep Alcala MD / Amandeep Alcala MD Interpreting Provider: Amandeep Alcala MD Abdomen/Pelvis CT 09/15/16 07:00 IMPRESSION: Elongated hyperdense collection is seen within the right psoas muscle, suspicious for hematoma given the given clinical indication. Psoas muscle phlegmon or mass are additional differential considerations. Small bilateral pleural effusions and bibasilar airspace disease, likely pneumonia. Given the presence of pulmonary nodules at the right base, continued follow-up to resolution is recommended. Atherosclerosis, including coronary artery calcification. Anasarca. D/ / Vamsi Hermosillo MD / Vamsi Hermosillo MD Interpreting Provider: Vamsi Hermosillo MD Retroperitoneum Ultrasound 09/16/16 08:30 IMPRESSION: 1. Limited visualization of the kidneys. No gross abnormality. 2. Unable to visualize the psoas muscle. D/ / Romario Mcdonald MD / Romario Mcdonald MD Interpreting Provider: Romario Mcdonald MD Chest X-Ray 09/18/16 16:13 IMPRESSION: Some worsening of cardiorespiratory status with more pronounced infiltrates in the left lower lobe and mild interstitial edema. D/ / 09/18/2016 17:19:48 Nancy Harper MD / jens Interpreting Provider: Nancy Harper MD Guidance Needle Placement Ultrasound 09/19/16 00:00 IMPRESSION: Successful ultrasound-guided vascular access into the right internal jugular vein, with placement of a triple-lumen temporary hemodialysis catheter which may be used immediately. D/ / Lalo Weinstein MD / Lalo Weinstein MD Interpreting Provider: Lalo Weinstein MD Insertion Non-Tunneled Catheter 09/19/16 00:00 IMPRESSION: Successful ultrasound-guided vascular access into the right internal jugular vein, with placement of a triple-lumen temporary hemodialysis catheter which may be used immediately. D/ / Llao Weinstein MD / Lalo Weinstein MD Interpreting Provider: Lalo Weinstein MD Videofluoroscopic Swallow 09/19/16 00:01 IMPRESSION: Swallowing mechanism grossly within normal limits without evidence of aspiration. There was minimal flash penetration with thin liquids which reversed spontaneously. Please see separate speech pathology report for full discussion of findings and recommendations. D/ / Nancy Harper MD / Nancy Harper MD Interpreting Provider: Nancy Harper MD Chest X-Ray 09/19/16 12:32 IMPRESSION: 1. Interval placement of a temporary right IJ hemodialysis catheter, which is appropriately positioned at the cavoatrial junction. 2. Stable pulmonary vascular congestion and small pleural effusions. D/ / Antonio Whelan MD / Antonio Whelan MD Interpreting Provider: Antonio Whelan MD Abdomen/Pelvis CT 09/19/16 20:00 IMPRESSION: 1. Re- demonstration of heterogeneous elongated focus within the right psoas muscle again suspicious for psoas hematoma. This is overall not significantly changed in size or appearance when compared with prior exam. A phlegmon or mass are again additional differential considerations. 2. Increase in size of nodular densities within the right middle lobe with interval development of nodular densities within the right middle lobe most compatible with pneumonia, however, follow-up to resolution is again recommended. Basilar opacities of also slightly increased half felt to reflect a combination of atelectasis and pneumonia. 3. Small bilateral pleural effusions. D/ / Bossman Lopez MD / Bossman Lopez MD Interpreting Provider: Bossman Lopez MD Chest CT 09/20/16 15:25 IMPRESSION: 1. Overall worsening of ill-defined bilateral nodular infiltrates, primarily in the right upper lobe. These are likely infectious or inflammatory in etiology. Again, septic emboli are a consideration. 2. Stable bibasilar lung consolidations, due to either atelectasis and/or pneumonia. 3. Evidence of pulmonary artery hypertension. D/ / Antonio Whelan MD / Antonio Whelan MD Interpreting Provider: Antonio Whelan MD Chest X-Ray 09/25/16 15:36 IMPRESSION: Uppercase findings similar the prior study showing multifocal bilateral airspace disease. D/ / Shahla Barahona Cha, MD / Shahla Barahona Cha, MD Interpreting Provider: Shahla Barahona Cha, MD Chest X-Ray 09/26/16 12:56 IMPRESSION: 1. New endotracheal tube in satisfactory position. 2. New gastric tube terminating in the proximal gastric body with the sideport near the junction of the gastric fundus and body below the gastroesophageal junction. 3. Persistent though decreased bilateral airspace interstitial opacities in both lungs most likely due to improved pulmonary edema given the interval between studies. Pneumonia could appear similar. 4. Decreased bilateral effusions and bibasilar atelectasis. D/ / Turner Silvestre MD / Turner Silvestre MD Interpreting Provider: Turner Silvestre MD X-Ray 09/26/16 12:56 IMPRESSION: 1. New endotracheal tube in satisfactory position. 2. New gastric tube terminating in the proximal gastric body with the sideport near the junction of the gastric fundus and body below the gastroesophageal junction. 3. Persistent though decreased bilateral airspace interstitial opacities in both lungs most likely due to improved pulmonary edema given the interval between studies. Pneumonia could appear similar. 4. Decreased bilateral effusions and bibasilar atelectasis. D/ / Turner Silvestre MD / Turner Silvestre MD Interpreting Provider: Turner Silvestre MD X-Ray 09/26/16 13:12 IMPRESSION: 1. New endotracheal tube in satisfactory position. 2. New gastric tube terminating in the proximal gastric body with the sideport near the junction of the gastric fundus and body below the gastroesophageal junction. 3. Persistent though decreased bilateral airspace interstitial opacities in both lungs most likely due to improved pulmonary edema given the interval between studies. Pneumonia could appear similar. 4. Decreased bilateral effusions and bibasilar atelectasis. D/ / Turner Silvestre MD / Turner Silvestre MD Interpreting Provider: Turner Silvestre MD Date of admission: 08/26/16 11:46 Primary care physician: Therese Garcia CNP Consults: 08/26/16 16:55 Consult to Surgery [CONS] Routine Consulting Provider: Surgery [place] [facility] Reason for Consult: Anemia, possible GI bleed, on anticoagulation Call Completed: Yes 08/27/16 10:11 Consult to Pulmonology [CONS] Routine Consulting Provider: Pulm [facility] Reason for Consult: Recurrent AECOPD, not improving Call Completed: Yes 08/30/16 15:47 Consult to Physical Therapy [CONS] Routine Comment: PATIENT NOW STABLE TO WORK WITH THERAPY 08/31/16 07:10 Consult to Gastroenterology [CONS] Routine Consulting Provider: Gastroenterology Nicole Reason for Consult: Low Hgb, guaiac positive. Call Completed: No 09/07/16 10:53 Consult to Interventional Radiology [CONS] Stat Consulting Provider: Radiology Interventional Cols Reason for Consult: Place temp dialysis line Call Completed: Yes 09/07/16 11:30 Consult to Dialysis [CONS] ONCE 09/08/16 09:00 Consult to Dialysis [CONS] ONCE 09/09/16 07:45 Consult to Dialysis [CONS] ONCE 09/09/16 09:00 Consult to Dialysis [CONS] ONCE 09/09/16 13:58 Consult to Nutrition [CONS] Routine Comment: Consulting Provider: NUTRITION Reason for Dietary Consult: TPN Start and Manage 09/10/16 04:19 Consult to Cardiology [CONS] Stat Comment: Consulting Provider: Cardiology [place] Reason for Consult: Sustained A Flutter RVR, HR 160 Call Completed: Yes 09/12/16 10:00 Consult to Dialysis [CONS] ONCE 09/14/16 09:00 Consult to Dialysis [CONS] ONCE 09/14/16 10:25 Consult to Occupational Therapy [CONS] Routine Comment: Evaluate, develop and implement POC Reason for Consult: PROLONGED HOSPITALIZATIN EVALUATE DISCHARGE NEEDS 09/15/16 15:55 Consult to Speech Therapy [CONS] Routine Comment: Evaluate, develop and implement POC Reason for Consult: r/o silent aspiration Call Completed: No 09/18/16 10:53 Consult to Wound Care [CONS] Routine Reason for Consult: prolonged immobilization, moisture associated tissue damage to coccyx getting worse Call Completed: No 09/19/16 07:37 Consult to Interventional Radiology [CONS] Routine Consulting Provider: Radiology Interventional Cols Reason for Consult: Please evaluate for placement of a new Temporary HD catheter. Last week the original was removed. Pt has been on a line holiday. Pt will need HD today. Thank you. Call Completed: Yes 09/19/16 07:45 Consult to Dialysis [CONS] ONCE 09/20/16 08:30 Consult to Dialysis [CONS] ONCE 09/21/16 15:18 Consult to Respiratory Therapy [CONS] Stat Reason for Consult: induced sputum for afb Call Completed: Yes 09/23/16 10:15 Consult to Dialysis [CONS] ONCE 09/24/16 12:00 Consult to Dialysis [CONS] ONCE Discharging clinician: Addy Randle Anticipated date of discharge: 09/26/16 - Patient Status Disposition: Transfer Other Condition: Critical Functional capacity at discharge: bed bound Overall status at discharge: patient is not back to baseline - Discharge Instructions Follow Up With: Edith Peña CNP [Advanced Practice Nurse] - 09/26/16 10:15 am Kj Yost MD [Partnered Physician] - Therese Garcia CNP [Primary Care Provider] - () Prudence Escobedo MD [Partnered Physician] - 10/11/16 3:50 pm () - Diet and Activity Activity: other (bedbound) Diet: other (NPO) - Hospital Course Hospital course: Ms. Parks is a 76 year old female initially admitted 08/22/2016 for COPD exacerbation. Hospital course has been complicated and prolonged due to GI bleed s/p hemicolectomy, VRE bacteremia, development of dialysis-dependent renal failure, and fungal pneumonia with acute respiratory failure. Progress notes have been sent with patient to [facility] Summary of Hospital Course: Currently POD #20 for right hemicolectomy (09/06) secondary to acute blood loss anemia from colonic angiodysplasia. Post-op complicated with VRE bacteremia. Blood cultures 09/08 grew VRE on 1 of 1 set. IV Zyvox started on 09/09. Repeat blood cultures from right CVC 09/13 grew staphylococcus hominis with peripheral blood cultures NGTD. On 09/15 dialysis catheter removed and tip cultured with NGTD. CT Chest 09/15 shows findings suggestive of septic emboli and was started on Cefepime and continued on Zyvox day 7. 09/16 unsuccessful VIC attempt. 09/19 CT abd/pelvis showed increased size of nodular densities within the RML compatible with pneumonia. Meropenem switched to Daptomycin on 09/20. Fungal pneumonia was suspected to increased size with fungal organism on sputum culture. Serology sent with positive BD glucan. Currently day 4 of Voriconazole. She was transferred to the ICU 09/26/2016 for BiPAP dependent respiratory failure. Long discussion with family regarding goals of care. They wish to remain aggressive with FULL CODE status. They are requesting transfer to [facility] for further evaluation and management. It was recommended that she require intubation and further evaluation such as bronchoscopy. I spoke with Deborah at [facility] transfer center. Due to full capacity at [facility], patient was accepted to [facility] Room [address] physician [address] Vela. Family was informed and agreed to transfer of patient. They are aware of restriction hours at the hospital and wish to proceed with transfer. At 1255 patient was intubated prior to transfer. Successful intubation with visualization of vocal cords on glidescope and confirmation with colorimetric change, absent sounds in epigastric, and bilateral breath sounds, as well as CXR. Norepinephrine was initiated for goal MAP >65 mmHg. Will continue current antibiotic regimen with Daptomycin and antifungal Voriconazole for suspected Aspergillus pneumonia. Patient continues to spike fevers. Blood cultures pending. [facility] crew currently at bedside for report and transfer of patient. She remains sedated on the ventilator. Vital signs are stable with Norephinephrine and Propofol gtt. - Time Spent with Patient Total time spent providing and/or coordinating discharge services: Greater than 30 minutes Physical Examination Vital Signs: Vital Signs, Last 4 Hours Temp Pulse Resp BP Pulse Ox 09/26/16 14:00 14 93/62 100 09/26/16 12:55 14 91/58 97 09/26/16 12:25 98.8 F 09/26/16 11:37 24 90 09/26/16 11:30 90 09/26/16 11:00 91 15 91/58 100 General appearance: agitated, appears uncomfortable, other (PATIENT IS MORE COMFORTABLE AFTER INTUBATION) Eyes: nonicteric Neck: other (R IJ temporary HD catheter with pigtail) Effort: other (mechanically ventilated) Inspection: other (symmetric chest rise) Auscultation: bilateral: wheezes (expiratory), rhonchi Cardiovascular: regular rate and rhythm Gastrointestinal: hypoactive bowel sounds, soft, non-distended, other (clean, well dressed, minimal shadowing to mid abdominal incision) Extremities: no cyanosis, no edema, other (EPCD in place) Musculoskeletal: no deformities non-focal exam, pupils equal and round, unable to assess due to mental status - VTE Documentation of Mechanical Device: Intermittent pneumatic compression device
[2016-09-26] MEDS ORDERED: *HR* Etomidate 20 MG/10 ML AMPUL IVP ONE (14:59)
--- NOTE | 2016-09-26 15:00 | Event Note ---
Date of Encounter: 09/26/16 Time of Encounter: 14:56 Attending addendum: The patient was seen and examined with the house staff. Full resident note to follow. 1. Acute respiratory failure with hypoxia 2. Shock 3. Pneumonia 4. Bacteremia 5. Acute renal failure 6. COPD 7. Encephalopathy 8. GI bleed status post hemicolectomy 76-year-old white female initially admitted 08/22/2016 for COPD exacerbation. Prolonged hospitalization complicated by GI bleed status post hemicolectomy on 09/06/2016, VRE bacteremia, fungal pneumonia, development of dialysis-dependent renal failure, and acute respiratory failure. Patient was transferred to the ICU 09/26/2016 for hypertension and BiPAP dependent respiratory failure. Had a long discussion with the family regarding goals of care. They would like to remain aggressive with full CODE STATUS. I recommended intubation and bronchoscopy. They are requesting transfer to [facility] for further evaluation and management. We have intubated the patient prior to transfer. Bronchoscopy can be performed at [facility] - will defer to their judgement. Continue current antibiotic regimen with daptomycin, meropenem, and voriconazole - being treated for VRE bacteremia and Aspergillus pneumonia. I have initiated norepinephrine for goal MAP 65 mmHg. Patient continues to spike fevers. Repeat blood cultures pending. Total direct critical care time: 35 minutes
[2016-09-26] MEDS ORDERED: Lacri-Lube 3.5 GM TUBE BOTH EYES SCH (16:00)
[2016-09-26] MEDS ORDERED: Chlorhexidine Rinse 15 ML MOUTHWASH MM SCH (21:00)
[2016-09-27 10:51] LABS: Blastomyces Ab by CF <1:8 (<1:8); Coccidioides Ab by CF <1:2 (<1:2)
--- NOTE | 2016-09-27 17:18 | Electrocardiograph Report ---
[place] [id number] Test Date: 2016-09-26 Pat Name: Dorothy Parks Department: 109 Room: 10 Gender: F Maintainer Plant: COURTNEY : [id number] Requested By: Nelia Del Valle Order Number: [id number] Reading MD: Edith Yost Measurements Intervals [place] Rate: 95 P: 84 DE: 146 QRS: 4 QRSD: 101 T: 20 QT: 314 QTc: 367 Interpretive Statements SINUS RHYTHM Electronically Signed On 09-27-2016 17:17:05 EDT by Edith Yost
== END 2016-09-26 15:02 | disposition other institution (70) | DRG 710 ==
LOC: 2ANU 12:40 → EMEROO 12:40 → SUATTDRO 16:22 → 2ANU 16:55 → 2NNU 08-25 21:00 → SUATTDRO 08-26 11:46 → 2ANU 08-30 18:41 → 2NNU 09-05 14:33 → 2ANU 09-05 14:35 → 2NNU 09-05 18:42 → ICNU 09-26 09:21
PROVIDERS: ADMIT Internal Medicine; ATTEND Internal Medicine

== ENCOUNTER 2017-07-19 18:08 | Observation (INO) ==
[2017-07-19] MEDS ORDERED: Ipratropium/Albuterol Neb 3 ML IH ONE (18:17)
[2017-07-19] MEDS ORDERED: methylPREDNISolone 125 MG/2 ML VIAL IVP ONE (18:17)
--- NOTE | 2017-07-19 18:23 | Emergency Department Note ---
Disposition Clinical Impression: Hypoxia Chest pain Qualifiers: Chest pain type: unspecified Qualified Code(s): R07.9 - Chest pain, unspecified Acute tracheitis Qualifiers: Airway obstruction: without obstruction Qualified Code(s): J04.10 - Acute tracheitis without obstruction Disposition: Admitted As Inpatient Condition: Undetermined Referrals: Therese Garcia CNP [Primary Care Provider] - Forms: ED Satisfaction Letter Time of Disposition: 19:42 SOB HPI - General Chief Complaint: ED Shortness of Breath/Dyspnea Stated Complaint: hypoxia, chest pain Time Seen by Provider: 07/19/17 18:17 Source: patient, family, EMS Mode of arrival: EMS Limitations: no limitations Nursing Notes Reviewed: Yes Vital Signs Reviewed: Yes - History of Present Illness 77-year-old female with history of dialysis and tracheostomy arrives to the emergency department with complaint of dyspnea and chest pain after dialysis. The patient has a history of [place]. She arrives to the emergency department on 6 L trach mask which she normally wears 4. O2 saturations continued to intermittently drop down into the 50s and then back up to the 90s. The patient is in mild respiratory distress upon arrival. She has a large amount of secretions from her tracheostomy site. She is also complaining of retrosternal chest discomfort. Pt Subjective Complaint: shortness of breath - Related Data Home Medications Medication Instructions Recorded Confirmed Ipratropium/Albuterol Neb [Duoneb] 3 ml IH Q6HR 08/22/16 07/19/17 Acetaminophen w/Cod 300-30 mg 1 tab PO Q6HR PRN 01/31/17 07/19/17 [Tylenol w/Codeine #3] Amiodarone [Cordarone] 200 mg PO DAILY 01/31/17 07/19/17 Ascorbate Calcium [Vitamin C] 500 mg PO DAILY 01/31/17 07/19/17 Atorvastatin Calcium [Lipitor] 20 mg PO HS 01/31/17 07/19/17 Calcitriol [Rocaltrol] 0.25 mcg PO QMWF 01/31/17 07/19/17 Guaifenesin [Mucinex] 600 mg PO BID 01/31/17 07/19/17 Insulin Glargine [Lantus] 24 - 26 unit SQ QAM 01/31/17 07/19/17 Insulin LISPRO [HumaLOG] 0 units SQ TIDAC 01/31/17 07/19/17 LORazepam [Ativan] 0.5 mg PO BID PRN 01/31/17 07/19/17 OLANZapine [Zyprexa] 2.5 mg PO HS 01/31/17 07/19/17 Albuterol Sulfate [Proventil Hfa] 2 puff IH Q6H PRN 07/06/17 07/19/17 Darbepoetin [Aranesp] 80 mcg IV MO 07/06/17 07/19/17 Albuterol Neb [Proventil Neb] 2.5 mg IH Q2H PRN 07/19/17 07/19/17 Insulin Glargine [Lantus] 12 - 16 unit SQ HS 07/19/17 07/19/17 Pantoprazole Sodium [Protonix] 40 mg PO BID 07/19/17 07/19/17 Renal Vitamin [Renal Caps Softgel] 1 mg PO DAILY 07/19/17 07/19/17 Sertraline [Zoloft] 100 mg PO DAILY 07/19/17 07/19/17 predniSONE [PredniSONE] 10 mg PO DAILY 07/19/17 07/19/17 Previous Rx's Medication Instructions Recorded Budesonide/Formoterol 160/4.5 1 puff IH BIDR inhaler 09/26/16 [Symbicort 160/4.5] Metoprolol [Lopressor] 50 mg PO BID tablet 09/26/16 Allergies Allergy/AdvReac Type Severity Reaction Status Date / Time aspirin [ASA] Allergy Swelling Verified 03/23/17 11:42 of Lip/Tongue/Throat NSAIDS (Non-Steroidal Allergy Swelling Verified 03/23/17 11:42 Anti-Inflamma of Lip/Tongue/Throat Penicillins Allergy Swelling Verified 07/06/17 13:36 of Lip/Tongue/Throat iron AdvReac Unknown Verified 03/23/17 11:42 All systems ED: reviewed and negative except as stated. Constitutional: Reports: weakness. Denies: fever, chills ENT ED: Denies: congestion Cardiovascular: Reports: chest pain, dyspnea on exertion, orthopnea, edema. Denies: syncope Respiratory: Reports: cough, dyspnea, sputum production. Denies: wheezes, hemoptysis Gastrointestinal: Denies: abdominal pain, nausea, vomiting Musculoskeletal: Denies: back pain Past Medical History - Past Medical History Attestation: Yes The following information was validated with the patient. Source: patient, old records reviewed, obtained from family Medical history: Reports: atrial fibrillation, cancer, CHF, COPD, CVA, diabetes , dialysis, hyperlipidemia, hypertension, renal disease Surgical history: Reports: appendectomy, breast surgery, cholecystectomy, colectomy, hysterectomy, other Psychiatric history: Reports: anxiety, depression CARDIOVASCULAR INVASIVE SPECIALIST history: Reports: no CARDIOVASCULAR INVASIVE SPECIALIST history - Social History Smoking Status: Former smoker Smokeless Tobacco Status: No Alcohol use: Reports: none Drug use: Reports: none Physical Exam - General Limitations: no limitations General appearance: alert, in distress (respiratory) - Head Head exam: atraumatic, normocephalic, normal inspection - Neck Neck exam: Present: full ROM, trachea midline, other (Trach in place) - Chest Chest inspection: Present: normal inspection, symmetric chest wall rise - Respiratory Respiratory exam: Present: respiratory distress, other (Coarse breath sounds) - Cardiovascular Cardiovascular exam: Present: normal rhythm, tachycardia, normal heart sounds - Abdominal Exam Abdominal exam: Present: soft, Non-Tender. Absent: tenderness, distention, guarding, rebound, rigidity - Extremities Exam Extremities exam: Present: normal inspection, full ROM. Absent: pedal edema - Neurological Exam Neurological exam: Present: alert Course Vital Signs Temperature 99.4 F 07/19/17 18:13 Pulse Rate 93 07/19/17 18:13 Respiratory Rate 16 07/19/17 18:13 Blood Pressure 112/58 07/19/17 18:13 O2 Sat by Pulse Oximetry 90 07/19/17 18:13 Temperature 99.4 F 07/19/17 18:13 Pulse Rate 89 07/19/17 19:44 Respiratory Rate 20 07/19/17 19:44 Blood Pressure 120/75 07/19/17 19:44 O2 Sat by Pulse Oximetry 94 07/19/17 19:44 Oxygen Delivery Oxygen Delivery Trach Mask Shortness of Breath/Dyspnea - [facility] Narrative Medical decision making narrative: Workup here in the emergency department demonstrates a mildly elevation in troponin which is likely associated with her renal failure. The patient does have a leukocytosis and I am concerned about tracheitis given the large amount of tracheal secretions noted. After suction the patient's O2 saturations continue to improve. She states she is feeling better at this time. She is no longer complaining of any chest discomfort. We will admit the patient to the hospital at this time. We will prescribe the patient IV meropenem. The patient agrees to plan. Family also agrees to plan of care. No further questions or concerns noted at this time. Accepted by Dr. Lujan. - Lab Data Lab results reviewed: Yes I reviewed the patient's lab results. Result diagrams: 07/19/17 18:42 07/19/17 18:42 Lab Results 07/19/17 07/19/17 Range/Units 18:42 18:42 WBC 13.2 H (4.3-11.1) K/mcL RBC 4.02 (3.82-4.97) M/mcL Hgb 8.7 L (11.5-15.4) g/dL Hct 31.1 L (35.3-44.9) % MCV 77.4 L (83.0-100.0) fL MCH 21.6 L (28.0-33.3) pg MCHC 28.0 L (31.6-35.5) g/dL RDW 18.5 H (11.5-14.5) % Plt Count 273 (140-400) K/mcL MPV 10.4 (9.4-12.4) fL Immature Gran % 1.4 (0-4) % Seg Neutrophils % 74.5 % Lymphocytes % 15.0 % Monocytes % 8.1 % Eosinophils % 0.6 % Basophils % 0.4 % Neutrophils # 9.8 H (1.6-8.9) K/mcL Lymphocytes # 2.0 (0.6-4.6) K/mcL Monocytes # 1.1 (0.0-1.3) K/mcL Eosinophils # 0.1 (0.0-0.6) K/mcL Basophils # 0.1 (0.0-0.2) K/mcL Platelet Estimate Normal (Normal) Polychromasia 1+ A (Not Present) Hypochromasia Present A (Not Present) Anisocytosis 1+ A (Not Present) Microcytosis Present A (Not Present) Sodium 136 (136-145) mEq/L Potassium 3.4 L (3.5-5.1) mEq/L Chloride 97 L (98-107) mEq/L Carbon Dioxide 26 (23-29) mEq/L BUN 31 H (8-23) mg/dL Creatinine 2.65 H (0.60-1.20) mg/dL Est GFR ( Amer) 21 L (> 60) Est GFR (Non-Af Amer) 18 L (> 60) BUN/Creatinine Ratio 12 (6-26) Glucose 337 H (70-105) mg/dL Calculated Osmolality 302 H (280-300) Calcium 8.9 (8.6-10.3) mg/dL Troponin I 0.04 H* (< 0.04) ng/mL - Radiology Data Radiology results reviewed: Yes I reviewed the patient's radiology results. Chest X-Ray 07/19/17 18:17 IMPRESSION: No acute abnormality. D/ / Alex Mistry MD / Alex Mistry MD Interpreting Provider: Alex Mistry MD - EKG Data EKG attestation: Yes I reviewed and interpreted this EKG. EKG results narrative: Heart rate 90 bpm. Normal sinus rhythm. No ST elevation possible lateral lead ST depression but difficult to assess due to artifact. Attestation Statement - Attestation Attestation: I examined this patient and my medical decision-making was reviewed with the Resident Physician. I agree with the documented findings, disposition and treatment plan as described except to the extent set forth below. Patient presents to the ED with a chief complaint shortness of breath. Patient was on her way back from dialysis today. Family states that she started her dry weight and she thinks maybe they took off too much fluid. She began getting short of breath and desatted to the 70s. On arrival here patient satting in the 80s. She is improved after suctioning. Sounds significant diminished. Mild end expiratory wheezing. Patient is noted to have a trach in place. Plan. Trach was suctioned. She is getting nebs at this time. Her oxygen saturation is improved to the upper 90s. She is still mildly tachypneic with accessory muscle use. Starting antibiotic. Chest x-ray clear. We will admit. 35 minutes of critical care exclusive of separately billable procedures.
[2017-07-19] MEDS ORDERED: Meropenem 1,000 MG in Water for inj. (sterile) 20 ML 10 ML IVP STA (19:10)
[2017-07-19 19:26] LABS: Basophils # 0.1 K/mcL (0.0-0.2); Basophils % 0.4 %; Eosinophils # 0.1 K/mcL (0.0-0.6); Eosinophils % 0.6 %; Hematocrit 31.1 % (35.3-44.9); Hemoglobin 8.7 g/dL (11.5-15.4); Immature Granulocytes % 1.4 % (0-4); Mean Corpuscular Hemoglobin 21.6 pg (28.0-33.3); Mean Corpuscular Volume 77.4 fL (83.0-100.0); Mean Platelet Volume 10.4 fL (9.4-12.4); Monocytes # 1.1 K/mcL (0.0-1.3); Monocytes % 8.1 %; Neutrophils # 9.8 K/mcL (1.6-8.9); Platelet Count 273 K/mcL (140-400); Red Blood Count 4.02 M/mcL (3.82-4.97); Red Cell Distribution Width 18.5 % (11.5-14.5); Segmented Neutrophils % 74.5 %
[2017-07-19 19:32] LABS: Calcium 8.9 mg/dL (8.6-10.3); Potassium 3.4 mEq/L (3.5-5.1)
[2017-07-19 19:37] LABS: Troponin I 0.04 ng/mL (< 0.04)
[2017-07-19 19:44] LABS: Anisocytosis 1+ (Not Present); Hypochromasia Present (Not Present); Microcytosis Present (Not Present); Platelet Estimate Normal (Normal); Polychromasia 1+ (Not Present)
--- NOTE | 2017-07-19 22:00 | Internal Med History&Physical ---
<Rox Cox - Last Filed: 07/20/17 00:55> Date of Encounter: 07/20/17 Time of Encounter: 21:59 Assessment and Plan (1) Pneumonia Current visit: No Status: Acute 77 y F with association with healthcare facilities, presenting with cough and secretions. CXR not indicative of pneumonia, but due to clinical presentation of cough and colored sputum, present early course of pneumonia and probable due to bacterial etiology. Pt's family state levaquin was effective for previous episode and would like to proceed with levaquin.Levaquin, renally adjusted - 500 mg PO q48 HR. Continuous cardiac monitoring for potential adverse effects. Continuous oxygen assessment, SpO2 saturation > 92%. Pneumonia Severity Index > 90. Qualifiers: Pneumonia type: due to unspecified organism Laterality: bilateral Lung location: unspecified part of lung Qualified Code(s): J18.9 - Pneumonia, unspecified organism (2) Chest pain Current visit: Yes Status: Acute By Nancy classification, chest pain likely non-anginal, not worsened by exertion and no NTG use. Pt however does have significant risk factors for chest pain, including diabetes, smoking, Age> 55, Hx of dyslipidemia, HTN, obesity. Hx of Afib during previous admission as well. Continuous cardiac monitoring. Elevated troponin and will trend. Persistent elevation of cardiac troponin is frequently observed among patients with end-stage renal disease, so elevation may be secondary to patient's renal disease. Plan for repeat ECHO. Qualifiers: Chest pain type: other chest pain Qualified Code(s): R07.89 - Other chest pain; R07.8 - Other chest pain (3) Elevated troponin Current visit: No Status: Acute See above. (4) Insulin dependent type 2 diabetes mellitus Current visit: No Status: Chronic Glycemic control with insulin sliding scale. Hypoglycemic protocol in place. Serial Accuchecks. (5) CKD (chronic kidney disease) stage V requiring chronic dialysis Current visit: Yes Status: Chronic Chronic renal failure stage 5 (requiring dialysis) with creatinine 2.65 and GFR 18 (6) DVT prophylaxis Current visit: No Status: Acute Given bleeding risk factors included increased age, and renal failure, will move to mechanical prophylaxis with EPCDs. (7) Tracheostomy care Current visit: Yes Status: Chronic Tracheotomy tube in place. Pt requires ventilator at night. Respiratory Therapy on consult, appreciate coordination of care. (8) Do not resuscitate status Current visit: Yes Status: Chronic Family confirmed DNR-Comfort care status in presence of patient who was alert. Discussed plan of care with family and patient, and agree with plan. (9) COPD (chronic obstructive pulmonary disease) Current visit: Yes Status: Chronic Continue home meds. Qualifiers: COPD type: COPD with acute lower respiratory infection Qualified Code(s): J44.0 - Chronic obstructive pulmonary disease with acute lower respiratory infection (10) Hypertension Current visit: No Status: Chronic Continue home meds Qualifiers: Hypertension type: essential hypertension Qualified Code(s): I10 - Essential (primary) hypertension (11) Depression Current visit: Yes Status: Acute Continue home meds. Qualifiers: Depression Type: unspecified Qualified Code(s): F32.9 - Major depressive disorder, single episode, unspecified Internal Medicine - H&P: HPI Chief complaint: SOB Admitted From: Emergency Dept History of present illness: Ms. Parks is a 77 year old female with past medical history CHF, COPD, CVA, diabetes, CKD on dialysis, hyperlipidemia and hypertension presenting for acute SOB with SpO2 to 70s and substernal chest pain following dialysis. Acute SOB followed directly after dialysis session today at approx 17:00-17:30. Pt is transported via EMS from and to dialysis and was transported to ED directly from dialysis. Daughter notes labored breathing while pt lying supine in EMS. Pt endorsed lightheadedness prior to episode. Caregivers also note "cream- colored" and "greenish" secretions from tracheostomy tube x 2 days, with intermittent cough. No fevers. No chills. Chest pain was at rest while patient lying supine in EMS. Did not worsen with exertion or movement. Was not positional. Quality: stabbing. Timing: intermittent. Does not worsen on breathing. Denies diaphoresis. No abdominal pain. No neck pain. No nausea. No vomiting. No acute back pain. Per family, patient may only have blood pressure checked in 1 arm 2/2 to previous mastectomy. HPI obtained by assistance of both daughters. Past Med Surg Social Fam HX - Past Medical History Medical history: atrial fibrillation, cancer, CHF, COPD, CVA, diabetes, dialysis , hyperlipidemia, hypertension, renal disease Psychiatric history: anxiety, depression - Past Surgical History Surgical History: appendectomy, breast surgery, cholecystectomy, colectomy, hysterectomy, other - Social History Smoking Status: Former smoker Smokeless Tobacco Status: No Alcohol use: none Drug use: none - Family History Mother Family Member Ethnicity: Non- Living Status: Hx Family Cardiac Disorders: No Hx Family Respiratory Disorders: No Hx Family Cancer: Yes (colon) Hx Family GI Disorders: No Hx Family Endocrine Disorder: No Hx Family Neuromuscular Disorders: No Hx Family Neurologic Disorders: No Hx Family HEENT Disorders: No Hx Family Autoimmune Disorders: No Father Living Status: Hx Family Cardiac Disorders: No Hx Family Respiratory Disorders: No Hx Family Cancer: Yes Hx Family GI Disorders: Yes Hx Family Endocrine Disorder: Yes (diabetic) Hx Family Neuromuscular Disorders: No Hx Family Neurologic Disorders: No Hx Family HEENT Disorders: No Hx Family Autoimmune Disorders: No Internal Medicine - H&P: Meds Ipratropium/Albuterol Neb [Duoneb] 3 ml IH Q6HR 08/22/16 [History] Budesonide/Formoterol 160/4.5 [Symbicort 160/4.5] 1 puff IH BIDR inhaler [Rx] Metoprolol [Lopressor] 50 mg PO BID tablet 09/26/16 [Rx] Acetaminophen w/Cod 300-30 mg [Tylenol w/Codeine #3] 1 tab PO Q6HR PRN 01/31/17 [History] Amiodarone [Cordarone] 200 mg PO DAILY 01/31/17 [History] Ascorbate Calcium [Vitamin C] 500 mg PO DAILY 01/31/17 [History] Atorvastatin Calcium [Lipitor] 20 mg PO HS 01/31/17 [History] Calcitriol [Rocaltrol] 0.25 mcg PO QMWF 01/31/17 [History] Guaifenesin [Mucinex] 600 mg PO BID 01/31/17 [History] Insulin Glargine [Lantus] 24 - 26 unit SQ QAM 01/31/17 [History] Insulin LISPRO [HumaLOG] 0 units SQ TIDAC 01/31/17 [History] LORazepam [Ativan] 0.5 mg PO BID PRN 01/31/17 [History] OLANZapine [Zyprexa] 2.5 mg PO HS 01/31/17 [History] Albuterol Sulfate [Proventil Hfa] 2 puff IH Q6H PRN 07/06/17 [History] Darbepoetin [Aranesp] 80 mcg IV MO 07/06/17 [History] Albuterol Neb [Proventil Neb] 2.5 mg IH Q2H PRN 07/19/17 [History] Insulin Glargine [Lantus] 12 - 16 unit SQ HS 07/19/17 [History] Pantoprazole Sodium [Protonix] 40 mg PO BID 07/19/17 [History] Renal Vitamin [Renal Caps Softgel] 1 mg PO DAILY 07/19/17 [History] Sertraline [Zoloft] 100 mg PO DAILY 07/19/17 [History] predniSONE [PredniSONE] 10 mg PO DAILY 07/19/17 [History] 3 Allergy/AdvReac Type Severity Reaction Status Date / Time aspirin [ASA] Allergy Swelling Verified 03/23/17 11:42 of Lip/Tongue/Throat NSAIDS (Non-Steroidal Allergy Swelling Verified 03/23/17 11:42 Anti-Inflamma of Lip/Tongue/Throat Penicillins Allergy Swelling Verified 07/06/17 13:36 of Lip/Tongue/Throat iron AdvReac Unknown Verified 03/23/17 11:42 All Systems PM: A 10-system review of systems was performed and is negative for pertinent findings except as documented above in the HPI. Review of systems: Review of Systems as per HPI. - Constitutional Constitutional: as per HPI - Breasts Breasts: as per HPI, change in shape Additional comments: Alteration 2/2 to masectomy. - Cardiovascular Cardiovascular ROS IM: as per HPI - Respiratory Respiratory: as per HPI - Gastrointestinal Gastrointestinal: as per HPI - Neurological Neurological ROS: as per HPI - Psychiatric Psychiatric: as per HPI - Constitutional Vitals: Temp Pulse Resp BP Pulse Ox 99.4 F 89 20 120/75 94 07/19/17 18:13 07/19/17 19:44 07/19/17 19:44 07/19/17 19:44 07/19/17 19:44 General appearance: Present: pleasant, no acute distress Exam: Sitting upright. Appears comfortable. - Head Additional comments: Tracheostomy tube midline of neck - Respiratory Respiratory exam: Absent: chest wall tenderness, stridor Additional comments: Breath sounds coarse - Cardiovascular Cardiovascular exam: Present: +S1, +S2. Absent: tachycardia - GI/Abdominal GI/Abdominal exam: Present: normal bowel sounds, soft. Absent: distended, guarding, rebound, tenderness, no peritoneal signs - Skin Additional comments: Ecchymotic lesions predominantly on forearms and dorsa of hands, appearance that of senile purpura Internal Med - H&P Results - Labs CBC & Chem 7: 07/19/17 18:42 07/19/17 18:42 - Impressions ITS Impressions Chest X-Ray 07/19/17 18:17 IMPRESSION: No acute abnormality. D/ / Alex Mistry MD / Alex Mistry MD Interpreting Provider: Alex Mistry MD <TaiCarroll - Last Filed: 07/20/17 01:07> Date of Encounter: 07/20/17 Internal Medicine - H&P: HPI History of present illness: Ms. Parks is a 77 year old female All Systems PM: A 10-system review of systems was performed and is negative for pertinent findings except as documented above in the HPI. - Constitutional Vitals: Temp Pulse Resp BP Pulse Ox 98.7 F 82 18 106/65 91 07/19/17 23:20 07/19/17 23:20 07/19/17 23:20 07/19/17 23:20 07/19/17 23:20 Internal Med - H&P Results - Labs CBC & Chem 7: 07/19/17 18:42 07/19/17 18:42 - Attending Attestation I have seen and examined pt independently. I have discussed with resident physician Dr Cox regarding management plan, agree with the documentation.
[2017-07-19] MEDS ORDERED: *HR* Dextrose 50 % in Water (Syg) 50 ML SYRINGE IVP PRN (22:51)
[2017-07-19] MEDS ORDERED: Naloxone 0.4 MG/ML INJ IVP PRN (22:51)
[2017-07-19] MEDS ORDERED: Dextrose Gel 15 GM/37.5 ML TUBE PO PRN ×2 (22:51)
[2017-07-19] MEDS ORDERED: D5% in Water 1,000 ML IVC PRN (22:51)
[2017-07-19] MEDS ORDERED: levoFLOXacin 500 MG TABLET PO SCH (23:00)
[2017-07-19] MEDS ORDERED: Insulin LISPRO 300 UNITS/3 ML VIAL SQ SCH (23:00)
[2017-07-19] MEDS ORDERED: Insulin DETEMIR 100 UNIT/ML X5UNITS SQ SCH (23:00)
[2017-07-19] MEDS ORDERED: Albuterol 2.5 MG/3 ML NEBULIZER IH PRN (23:29)
[2017-07-19] MEDS ORDERED: *HR* LORazepam 0.5 MG TABLET PO PRN (23:29)
[2017-07-19] MEDS ORDERED: OLANZapine 5 MG TAB.RAPDIS PO SCH (23:30)
[2017-07-19] MEDS ORDERED: *HR* Acetaminophen w/Cod 300-30 mg 1 TAB TABLET PO PRN (23:34)
[2017-07-20 01:00] LABS: Immature Granulocytes % 2.1 % (0-4)
[2017-07-20 01:02] LABS: Basophils % 0.3 %; Hematocrit 31.1 % (35.3-44.9); Hemoglobin 8.7 g/dL (11.5-15.4); Lymphocytes % 10.2 %; Mean Corpuscular Hemoglobin 21.8 pg (28.0-33.3); Mean Corpuscular Volume 77.8 fL (83.0-100.0); Mean Platelet Volume 9.6 fL (9.4-12.4); Monocytes # 0.1 K/mcL (0.0-1.3); Monocytes % 0.7 %; Neutrophils # 8.2 K/mcL (1.6-8.9); Platelet Count 275 K/mcL (140-400); Red Cell Distribution Width 18.3 % (11.5-14.5); Segmented Neutrophils % 86.7 %
[2017-07-20] MEDS: Ipratropium/Albuterol Neb 3 ML IH SCH ×3 (01:10→10:56)
[2017-07-20 01:22] LABS: Calcium 9.1 mg/dL (8.6-10.3); Potassium 3.8 mEq/L (3.5-5.1)
[2017-07-20 01:58] LABS: Anisocytosis 1+ (Not Present); Hypochromasia Present (Not Present); Platelet Estimate Normal (Normal)
[2017-07-20] MEDS ORDERED: Insulin LISPRO 300 UNITS/3 ML VIAL SQ SCH ×2 (06:02→21:00)
[2017-07-20] MEDS ORDERED: predniSONE 10 MG TABLET PO SCH (09:00)
[2017-07-20] MEDS ORDERED: Insulin DETEMIR 100 UNIT/ML X5UNITS SQ SCH (09:00)
[2017-07-20] MEDS ORDERED: Renal Vitamin 1 MG CAPSULE PO SCH (09:00)
[2017-07-20] MEDS ORDERED: *HR* Amiodarone 200 MG TABLET PO SCH (09:00)
--- NOTE | 2017-07-20 09:01 | Discharge Summary ---
<Claudia Caryd - Last Filed: 07/20/17 09:04> Orders not resulted at time of discharge: Sputum Culture Date of Encounter: 07/20/17 Time of Encounter: 08:59 - Discharge Diagnosis (1) Increased tracheal secretions Priority: Primary Status: Acute (2) Hypoxia Priority: Primary Status: Acute (3) Chest pain Priority: Primary Status: Acute Qualifiers: Chest pain type: other chest pain Qualified Code(s): R07.89 - Other chest pain; R07.8 - Other chest pain (4) Elevated troponin Priority: Primary Status: Acute (5) CKD (chronic kidney disease) stage V requiring chronic dialysis Priority: Secondary Status: Chronic Hospital course: Ms. Parks is a 77 year old female with a past medical history of chronic kidney disease requiring dialysis 3 times a week, hypertension, diabetes, hyperlipidemia, rheumatic fever, smoker, tracheostomy. Patient presented to the emergency department after hemodialysis. Patient was experiencing shortness of breath and had an episode of left-sided chest tightness. She was also reporting increased secretions through the tracheostomy tube. EMS reported oxygen saturations in the 70s. Patient is normally on 4 L of oxygen at home and is on a ventilator at night. Patient follows Dr. Whelan at [facility]. Patient's trach tube was suctioned by the respiratory team, and patient's oxygen saturation went back into the 90s on 4 L of oxygen. Patient was given meropenem in the emergency department. She was given Levaquin in the hospital. Patient's last tracheostomy tube replacement was on July 04. During her stay, Patient had mildly elevated troponins of 0.05, 0.04, 0.04. patient has ahd higher troponins in the past. Reports no history of heart catheterization. Electrocardiogram revealed mild ST depressions in lateral leads but this could have been some artifact. There were no ST segment elevations noted. Today, patient and daughter state that she is feeling much better after the suctioning. Patient has not had chest pain today. Patient has appointment with her equipment sterilizer next week. Patient was offered echocardiogram but wished to wait until the appointment with her equipment sterilizer. Shared decision making was made between patient and daughter and they decided to keep that appointment and to follow-up with them regarding her chest pain and not to pursue that further in the hospital. Patient and daughter want to leave the hospital today as patient has an appointment to receive her iron infusion. Patient was offered a lengthier stay to further address her increased tracheal secretions for further antimicrobial administration, sputum culture, and observation. Patient daughter request to be discharged from the hospital as they have close follow-up with all their care providers after we obtain sputum culture. Patient has appointment in a couple weeks with Dr. Whelan at [facility]. I have told the patient and her daughter to call and try to set up an appointment for a sooner visit. Patient will be discharged from the hospital on Levaquin on a renally adjusted dose. We will prescribe it 500 mg every 48 hours. Patient is on amiodarone and has a QTC that is borderline prolonged. Rechecked QTc after Levaquin administration and it has not increased. At this time, I believe it is safe to discharge the patient home with it. Patient and daughter agree with plan. Patient was hemodynamically stable at time of discharge and on her normal amount of oxygen. Discharge discussed with: patient, family - Time Spent with Patient Total time spent providing and/or coordinating discharge services: - Discharge Medications Prescriptions: Levofloxacin [Levaquin] 500 mg PO Q48H #5 tablet Home Medications: Ipratropium/Albuterol Neb [Duoneb] 3 ml IH Q6HR 08/22/16 [History] Budesonide/Formoterol 160/4.5 [Symbicort 160/4.5] 1 puff IH BIDR inhaler [Rx] Metoprolol [Lopressor] 50 mg PO BID tablet 09/26/16 [Rx] Acetaminophen w/Cod 300-30 mg [Tylenol w/Codeine #3] 1 tab PO Q6HR PRN 01/31/17 [History] Amiodarone [Cordarone] 200 mg PO DAILY 01/31/17 [History] Ascorbate Calcium [Vitamin C] 500 mg PO DAILY 01/31/17 [History] Atorvastatin Calcium [Lipitor] 20 mg PO HS 01/31/17 [History] Calcitriol [Rocaltrol] 0.25 mcg PO QMWF 01/31/17 [History] Guaifenesin [Mucinex] 600 mg PO BID 01/31/17 [History] Insulin Glargine [Lantus] 24 - 26 unit SQ QAM 01/31/17 [History] Insulin LISPRO [HumaLOG] 0 units SQ TIDAC 01/31/17 [History] LORazepam [Ativan] 0.5 mg PO BID PRN 01/31/17 [History] OLANZapine [Zyprexa] 2.5 mg PO HS 01/31/17 [History] Albuterol Sulfate [Proventil Hfa] 2 puff IH Q6H PRN 07/06/17 [History] Darbepoetin [Aranesp] 80 mcg IV MO 07/06/17 [History] Albuterol Neb [Proventil Neb] 2.5 mg IH Q2H PRN 07/19/17 [History] Insulin Glargine [Lantus] 12 - 16 unit SQ HS 07/19/17 [History] Pantoprazole Sodium [Protonix] 40 mg PO BID 07/19/17 [History] Renal Vitamin [Renal Caps Softgel] 1 mg PO DAILY 07/19/17 [History] Sertraline [Zoloft] 100 mg PO DAILY 07/19/17 [History] predniSONE [PredniSONE] 10 mg PO DAILY 07/19/17 [History] Levofloxacin [Levaquin] 500 mg PO Q48H #5 tablet 07/20/17 [Rx] Allergies/Adverse Reactions: 3 Allergy/AdvReac Type Severity Reaction Status Date / Time aspirin [ASA] Allergy Swelling Verified 03/23/17 11:42 of Lip/Tongue/Throat NSAIDS (Non-Steroidal Allergy Swelling Verified 03/23/17 11:42 Anti-Inflamma of Lip/Tongue/Throat Penicillins Allergy Swelling Verified 07/06/17 13:36 of Lip/Tongue/Throat iron AdvReac Unknown Verified 03/23/17 11:42 Date of admission: 07/19/17 21:49 Primary care physician: Therese Garcia CNP Consults: 07/19/17 23:02 Consult to Nurse Navigator [CONS] Routine Comment: 07/19/17 23:04 Consult to Pulmonary Rehab [CONS] Routine Reason for Consult: Tracheostomy Care Call Completed: Yes 07/19/17 23:37 Consult to Respiratory Therapy [CONS] Routine Reason for Consult: Pneumonia Call Completed: Yes Discharging clinician: Berny Villegas Anticipated date of discharge: 07/20/17 - Constitutional Vitals: Temp Pulse Resp BP Pulse Ox 98.1 F 68 18 127/47 98 07/20/17 07:00 07/20/17 07:00 07/20/17 07:00 07/20/17 07:00 07/20/17 07:00 General appearance: Present: A&O X 3, pleasant, no acute distress - Head Head exam: Present: atraumatic - Neck Additional comments: Trach is placed. No evidence of erythema, no secretions noted at time of exam. - Respiratory Respiratory exam: Present: CTAB. Absent: accessory muscle use - Cardiovascular Cardiovascular exam: Present: +S1, +S2 - GI/Abdominal GI/Abdominal exam: Present: soft. Absent: firm, guarding, tenderness, no peritoneal signs Additional comments: Patient has stoma from a G-tube. Site looks good, no erythema, no drainage. - Neurological Exam Neurological exam: Present: CN II-XII intact - Skin Skin exam: Present: intact. Absent: petechiae, rash - Patient Status Disposition: Home, Self-Care Condition: Good Overall status at discharge: patient is back to baseline - Discharge Instructions Instructions: Chest Pain (DC), Acute Respiratory Distress Syndrome (DC) Follow Up With: Jericho Whelan MD [Non-Partnered Physician] - 08/08/17 1:45 pm Garcia,Therese Mccormick CNP [Primary Care Provider] - (SENT WEB REQUEST ON 07-20-17 @ [id number] Office will call patient at home with follow up appointment per Nisha at [facility] office) Additional Instructions: Follow-up by giving Dr. Whelan at [facility] a phone call today to see if he wants to see you sooner. Tell them that we have started you on Levaquin for your increased tracheal secretions. Take medications as prescribed. Go to your appointment with Dr. Shoemaker, your equipment sterilizer next week. Tell him you had an elevated troponin in the hospital and chest tightness. Return to the emergency department if you develop any new symptoms, worsening of your current symptoms. We have obtained a chest x-ray and it was normal. Hemoglobin here was 8.7. - Diet and Activity Activity: increase activity as tolerated, wear oxygen at all times Diet: diabetic diet <Berny Villegas - Last Filed: 07/20/17 12:47> Orders not resulted at time of discharge: Pending orders 07/20/17 09:28 Sputum Culture [Culture,Sputum with Gram Stain] [] Stat Date of Encounter: 07/20/17 Hospital course: Ms. Parks is a 77 year old female - Time Spent with Patient Total time spent providing and/or coordinating discharge services: Date of admission: 07/19/17 21:49 Primary care physician: Therese Garcia CNP Consults: 07/19/17 23:02 Consult to Nurse Navigator [CONS] Routine Comment: 07/19/17 23:04 Consult to Pulmonary Rehab [CONS] Routine Reason for Consult: Tracheostomy Care Call Completed: Yes 07/19/17 23:37 Consult to Respiratory Therapy [CONS] Routine Reason for Consult: Pneumonia Call Completed: Yes - Constitutional Vitals: Temp Pulse Resp BP Pulse Ox 98.2 F 72 22 120/48 99 07/20/17 11:39 07/20/17 11:39 07/20/17 11:39 07/20/17 11:39 07/20/17 11:39 - Attending Attestation Acute on chronic hypoxic respiratory failure secondary to increased secretions/ acute bronchitis Order culture of sputum, may continue Levaquin. The patient was offered the option to stay here until we can determine whether she is growing Pseudomonas or not again in order to start proper antibiotic therapy. She prefers to be discharged and would calm back if not improving. Continue steroids and Levaquin Time spent on this discharge 40 minutes I examined this patient and my medical decision-making was reviewed with the Resident Physician. I agree with the documented findings, disposition and treatment plan as described except to the extent set forth below.
[2017-07-20] MEDS ORDERED: Budesonide/Formoterol 160/4.5 MDI IH SCH (10:00)
[2017-07-20 11:40] VITALS: BP 120/48
--- NOTE | 2017-07-25 08:12 | Electrocardiograph Report ---
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
== END 2017-07-20 12:47 | disposition home or self-care (01) ==
LOC: EMEROO 18:08 → 2ANU 18:08 → 2NNU 07-20 02:09
PROVIDERS: ADMIT Family Medicine; ATTEND Family Medicine

== ENCOUNTER 2018-10-25 12:26 | Inpatient (IN) ==
[2018-10-25] MEDS ORDERED: *HR* FentaNYL (PF) 100 MCG/2 ML VIAL IVP ONE ×2 (12:39→17:31)
--- NOTE | 2018-10-25 12:41 | Emergency Department Note ---
Disposition Clinical Impression: Healthcare-associated pneumonia Disposition: Admitted As Inpatient Condition: Fair Time of Disposition: 23:52 SOB HPI - General Stated Complaint: LISHA Time Seen by Provider: 10/25/18 12:38 Source: patient, family, EMS Mode of arrival: EMS Limitations: language barrier (Patient with tracheostomy in place) Nursing Notes Reviewed: Yes Vital Signs Reviewed: Yes - History of Present Illness 78-year-old female past medical history end-stage renal disease on Monday dialysis, CHF, diabetes presenting for one day history of difficulty breathing. Family members at bedside states the patient has had worsening CHF symptoms with shortness of breath, orthopnea, swelling in bilatera l lower extremities. States the patient has very high pain threshold and does not communicate pain well but have noticed that upon movement that the patient is complaining of bilateral shoulder pain. Patient is limited in communication due to tracheostomy tube placement but is able to nod her head yes and no and affirmation of questioning. Patient has was alert and oriented, states she is not having any headache, unilateral weakness, lightheadedness dizziness chest pain, she she states that she feels that she is breathing adequately at this point, no abdominal pain, nausea or vomiting. Pt Subjective Complaint: shortness of breath Onset (ago): day(s) Severity: mild, moderate Consistency/Duration: constant, gradually worsening Worsens with: lying flat, movement Known history of: congestive heart failure, diabetes Associated symptoms: Reports: other Treatment prior to arrival: other (Vicodin) Cough present: No - Related Data Home Medications Medication Instructions Recorded Confirmed Ipratropium/Albuterol Neb [Duoneb] 3 ml IH Q6HR PRN 08/22/16 10/25/18 Ascorbate Calcium [Vitamin C] 500 mg PO DAILY 01/31/17 10/25/18 Atorvastatin Calcium [Lipitor] 20 mg PO HS 01/31/17 10/25/18 Guaifenesin [Mucinex] 600 mg PO BID 01/31/17 10/25/18 Insulin LISPRO [HumaLOG] 0 - 10 units SQ TIDAC 01/31/17 10/25/18 LORazepam [Ativan] 0.5 mg PO TID PRN 01/31/17 10/25/18 Albuterol Sulfate [Proventil Hfa] 2 puff IH Q6H PRN 07/06/17 10/25/18 Darbepoetin [Aranesp] 80 mcg IV WE 07/06/17 10/25/18 Albuterol Neb [Proventil Neb] 2.5 mg IH Q2H PRN 07/19/17 10/25/18 Pantoprazole Sodium [Protonix] 40 mg PO BID 07/19/17 10/25/18 Renal Vitamin [Renal Caps Softgel] 1 mg PO DAILY 07/19/17 10/25/18 Budesonide/Formoterol 160/4.5 2 puff IH BIDR 03/07/18 10/25/18 [Symbicort 160/4.5] Calcitriol 0.5 mcg PO MOWEFR 03/07/18 10/25/18 Insulin Degludec [Tresiba 20 unit SQ DAILY 03/07/18 10/25/18 Flextouch U-100] Metoprolol [Lopressor] 12.5 mg PO BID 03/07/18 10/25/18 Amiodarone [Cordarone] 200 mg PO DAILY 09/04/18 10/25/18 Buspirone HCl [Buspar] 15 mg PO BID 09/04/18 10/25/18 Lanthanum Carbonate [Fosrenol] 1,000 mg PO TIDWM 09/04/18 10/25/18 Venlafaxine [Effexor] 37.5 mg PO DAILY 09/04/18 10/25/18 Apixaban [Eliquis] 2.5 mg PO DAILY 10/25/18 10/25/18 Diclofenac Sodium [Voltaren] 1 appl TP QID 10/25/18 10/25/18 Oxycodone HCl/Acetaminophen 1 each PO Q6-8H PRN 10/25/18 10/25/18 [Percocet 5-325 mg Tablet] Sennosides [Senna] 8.6 mg PO DAILY PRN 10/25/18 10/25/18 predniSONE [PredniSONE] 7 mg PO DAILY 10/25/18 10/25/18 Allergies Allergy/AdvReac Type Severity Reaction Status Date / Time aspirin [ASA] Allergy Swelling Verified 10/25/18 11:43 of Lip/Tongue/Throat NSAIDS (Non-Steroidal Allergy Swelling Verified 10/25/18 11:43 Anti-Inflamma of Lip/Tongue/Throat Penicillins Allergy Swelling Verified 10/25/18 11:43 of Lip/Tongue/Throat azithromycin AdvReac Fever Verified 10/25/18 11:43 iron AdvReac Unknown Verified 10/25/18 11:43 Review of Systems: *See History of Present Illness for more detail Constitutional: Denies: fever, chills Cardiovascular: Denies: chest pain Respiratory: Denies: dyspnea, cough, hemoptysis Gastrointestinal: Denies: abdominal pain, nausea, vomiting, diarrhea, constipation, hematemesis, melena, hematochezia Genitourinary: Denies: hematuria Musculoskeletal: Denies: back pain, neck pain Neurological: Denies: headache, weakness, lightheadedness/dizziness, numbness, paresthesias, difficulty with ambulation. Endocrine: Denies: fatigue Hematological/Lymphatic: Denies: easy bleeding, easy bruising All systems ED: reviewed and negative except as stated. Review of Systems: As Per HPI Past Medical History - Past Medical History Medical history: Reports: atrial fibrillation, cancer, CHF, COPD, CVA, diabetes, dialysis, hyperlipidemia, hypertension, myocardial infarction, renal disease Surgical history: Reports: appendectomy, breast surgery, cholecystectomy, colectomy, hysterectomy, other Psychiatric history: Reports: anxiety, depression [employer] history: Reports: no [employer] history - Social History Smoking Status: Former smoker Smokeless Tobacco Status: No Alcohol use: Reports: none Drug use: Reports: none Physical Exam Constitutional: No acute distress, [id number], engaged to conversation, speech is fluid, answers questions appropriately Neuro: GCS 15, no overt focal neurological deficits Head: Atraumatic, normocephalic Eyes: Pupils equal, round and reactive to light, no scleral icterus, no conjunctival injection Neck: Trachea midline without deviation. Anterior neck is supple without swelling. *Chest: Symmetric chest wall rise *Heart: Cardiac rhythm and rate are regular with S1 and S2 , no S3 or S4 appreciated, no murmurs, gallops, rubs, or clicks. *Lungs: Lungs are clear to auscultation bilaterally, without accessory muscle use or prolonged expiratory phase. No wheezes, rhonchi or stridor appreciated. Abdomen: Abdomen is flat, soft to palpation, normal bowel sounds. No abdominal bruit auscultated. Non-distended, non-rigid, no organomegaly, no ascites appreciated. No pulsatile mass, no tenderness or guarding to palpation in all four quadrants, no rebound Extremities: Normal capillary refill without evidence of pedal edema, joint swelling or erythema. Pulses/motor intact in all 4 extremities. Psychiatric exam: Patient displays a normal affect and mood for the environment. No overt signs of hallucination. Integumentary: warm, dry, intact, normal color. No rash, cyanosis, diaphoresis, erythema, or pallor or some fluids and labs - General Limitations: no limitations General appearance: alert, in no apparent distress Course Course Narrative: ED dyspnea workup Elevated d-dimer we will order CTA chest CT chest negative Vital Signs Temperature 98.2 F 10/25/18 12:30 Pulse Rate 88 10/25/18 12:30 Respiratory Rate 16 10/25/18 12:30 Blood Pressure 118/61 10/25/18 12:30 O2 Sat by Pulse Oximetry 100 10/25/18 12:30 Temperature 99.2 F 10/25/18 23:16 Pulse Rate 56 10/25/18 23:16 Respiratory Rate 19 10/25/18 23:16 Blood Pressure 123/54 10/25/18 23:16 O2 Sat by Pulse Oximetry 98 10/25/18 23:16 Oxygen Delivery Oxygen Delivery Trach Mask Shortness of Breath/Dyspnea - MDM Narrative Medical decision making narrative: Patient's imaging results are concerning for pneumonia with laboratory concerning for CHF exacerbation in conjunction Patient be admitted to hospital medicine service for their evaluation and management Patient family bedside verbalized understanding and agreement. Patient is hemodynamically stable time of admission - Lab Data Lab results reviewed: Yes I reviewed the patient's lab results. Result diagrams: 10/25/18 12:38 10/25/18 12:38 Lab Results 10/25/18 10/25/18 10/25/18 Range/Units 12:38 12:38 12:38 WBC 23.4 H (4.3-11.1) K/mcL RBC 3.92 (3.82-4.97) M/mcL Hgb 8.7 L (11.5-15.4) g/dL Hct 31.7 L (35.3-44.9) % MCV 80.9 L (83.0-100.0) fL MCH 22.2 L (28.0-33.3) pg MCHC 27.4 L (31.6-35.5) g/dL RDW 18.9 H (11.5-14.5) % Plt Count 342 (140-400) K/mcL MPV 9.5 (9.4-12.4) fL Immature Gran % 0.8 (0-4) % Seg Neutrophils % 95.5 % Lymphocytes % 1.5 % Monocytes % 2.1 % Eosinophils % 0.0 % Basophils % 0.1 % Neutrophils # 22.4 H (1.6-8.9) K/mcL Lymphocytes # 0.4 L (0.6-4.6) K/mcL Monocytes # 0.5 (0.0-1.3) K/mcL Eosinophils # 0.0 (0.0-0.6) K/mcL Basophils # 0.0 (0.0-0.2) K/mcL Platelet Estimate Normal (Normal) Hypochromasia Present A (Not Present) Anisocytosis 1+ A (Not Present) PT 20.1 H (9.4-12.1) Seconds INR 1.8 D-Dimer 2430 H (0-500) ng/mLFEU VBG pH (7.32-7.42) pH Units VBG pCO2 (41-51) mmHg VBG pO2 (25-50) mmHg VBG HCO3 (21-27) mEq/L Sodium 129 L (136-145) mEq/L Potassium 3.1 L (3.5-5.1) mEq/L Chloride 92 L (98-107) mEq/L Carbon Dioxide 24 (23-29) mEq/L BUN 49 H (8-23) mg/dL Creatinine 2.54 H (0.60-1.20) mg/dL Est GFR ( Amer) 22 L (> 60) Est GFR (Non-Af Amer) 18 L (> 60) BUN/Creatinine Ratio 19 (6-26) Glucose 151 H (70-105) mg/dL Calculated Osmolality 284 (280-300) Lactic Acid (0.5-2.2) mmol/L Calcium 8.8 (8.6-10.3) mg/dL Total Bilirubin 0.6 (0.3-1.0) mg/dL Direct Bilirubin 0.2 (0.0-0.2) mg/dL Indirect Bilirubin 0.4 (0.0-1.2) mg/dL AST 11 L (13-39) Units/L ALT 11 (7-52) Units/L Alkaline Phosphatase 128 H (34-104) Units/L Creatine Kinase < 10 L (30-223) Units/L Troponin I 0.04 H* (< 0.04) ng/mL B-Natriuretic Peptide (Less than 100) pg/mL Serum Total Protein 6.5 (6.4-8.9) g/dL Albumin 2.5 L (3.5-5.7) g/dL Globulin 4.0 H (2.4-3.5) g/dL Albumin/Globulin Ratio 0.6 L (1.1-2.2) 10/25/18 10/25/18 10/25/18 Range/Units 12:38 13:10 14:11 WBC (4.3-11.1) K/mcL RBC (3.82-4.97) M/mcL Hgb (11.5-15.4) g/dL Hct (35.3-44.9) % MCV (83.0-100.0) fL MCH (28.0-33.3) pg MCHC (31.6-35.5) g/dL RDW (11.5-14.5) % Plt Count (140-400) K/mcL MPV (9.4-12.4) fL Immature Gran % (0-4) % Seg Neutrophils % % Lymphocytes % % Monocytes % % Eosinophils % % Basophils % % Neutrophils # (1.6-8.9) K/mcL Lymphocytes # (0.6-4.6) K/mcL Monocytes # (0.0-1.3) K/mcL Eosinophils # (0.0-0.6) K/mcL Basophils # (0.0-0.2) K/mcL Platelet Estimate (Normal) Hypochromasia (Not Present) Anisocytosis (Not Present) PT (9.4-12.1) Seconds INR D-Dimer (0-500) ng/mLFEU VBG pH 7.42 (7.32-7.42) pH Units VBG pCO2 36 L (41-51) mmHg VBG pO2 92 H (25-50) mmHg VBG HCO3 23 (21-27) mEq/L Sodium (136-145) mEq/L Potassium (3.5-5.1) mEq/L Chloride (98-107) mEq/L Carbon Dioxide (23-29) mEq/L BUN (8-23) mg/dL Creatinine (0.60-1.20) mg/dL Est GFR ( Amer) (> 60) Est GFR (Non-Af Amer) (> 60) BUN/Creatinine Ratio (6-26) Glucose (70-105) mg/dL Calculated Osmolality (280-300) Lactic Acid 1.3 (0.5-2.2) mmol/L Calcium (8.6-10.3) mg/dL Total Bilirubin (0.3-1.0) mg/dL Direct Bilirubin (0.0-0.2) mg/dL Indirect Bilirubin (0.0-1.2) mg/dL AST (13-39) Units/L ALT (7-52) Units/L Alkaline Phosphatase (34-104) Units/L Creatine Kinase (30-223) Units/L Troponin I (< 0.04) ng/mL B-Natriuretic Peptide 492 H (Less than 100) pg/mL Serum Total Protein (6.4-8.9) g/dL Albumin (3.5-5.7) g/dL Globulin (2.4-3.5) g/dL Albumin/Globulin Ratio (1.1-2.2) 10/25/18 Range/Units 15:11 WBC (4.3-11.1) K/mcL RBC (3.82-4.97) M/mcL Hgb (11.5-15.4) g/dL Hct (35.3-44.9) % MCV (83.0-100.0) fL MCH (28.0-33.3) pg MCHC (31.6-35.5) g/dL RDW (11.5-14.5) % Plt Count (140-400) K/mcL MPV (9.4-12.4) fL Immature Gran % (0-4) % Seg Neutrophils % % Lymphocytes % % Monocytes % % Eosinophils % % Basophils % % Neutrophils # (1.6-8.9) K/mcL Lymphocytes # (0.6-4.6) K/mcL Monocytes # (0.0-1.3) K/mcL Eosinophils # (0.0-0.6) K/mcL Basophils # (0.0-0.2) K/mcL Platelet Estimate (Normal) Hypochromasia (Not Present) Anisocytosis (Not Present) PT (9.4-12.1) Seconds INR D-Dimer (0-500) ng/mLFEU VBG pH (7.32-7.42) pH Units VBG pCO2 (41-51) mmHg VBG pO2 (25-50) mmHg VBG HCO3 (21-27) mEq/L Sodium (136-145) mEq/L Potassium (3.5-5.1) mEq/L Chloride (98-107) mEq/L Carbon Dioxide (23-29) mEq/L BUN (8-23) mg/dL Creatinine (0.60-1.20) mg/dL Est GFR ( Amer) (> 60) Est GFR (Non-Af Amer) (> 60) BUN/Creatinine Ratio (6-26) Glucose (70-105) mg/dL Calculated Osmolality (280-300) Lactic Acid (0.5-2.2) mmol/L Calcium (8.6-10.3) mg/dL Total Bilirubin (0.3-1.0) mg/dL Direct Bilirubin (0.0-0.2) mg/dL Indirect Bilirubin (0.0-1.2) mg/dL AST (13-39) Units/L ALT (7-52) Units/L Alkaline Phosphatase (34-104) Units/L Creatine Kinase (30-223) Units/L Troponin I 0.04 H* (< 0.04) ng/mL B-Natriuretic Peptide (Less than 100) pg/mL Serum Total Protein (6.4-8.9) g/dL Albumin (3.5-5.7) g/dL Globulin (2.4-3.5) g/dL Albumin/Globulin Ratio (1.1-2.2) - Radiology Data Radiology results reviewed: Yes I reviewed the patient's radiology results. Chest X-Ray 10/25/18 12:39 IMPRESSION: Mild pulmonary edema appears stable to slightly increased from prior exam. New bandlike opacity in the left lung base may represent atelectasis. Developing pneumonitis can not be excluded. D/ / Martin Mosley MD / Martin Mosley MD Interpreting Provider: Martin Mosley MD Chest CTA 10/25/18 14:59 IMPRESSION: No evidence of pulmonary embolism. Enlarged main pulmonary artery measuring 3.5 cm in diameter suggesting pulmonary hypertension. Severe emphysematous changes. Redemonstration of multiple 7 mm and smaller right lung nodules which are of uncertain etiology. Continued follow-up is advised as described below. Dense coronary artery calcifications. RECOMMENDATIONS: Fleischner Society guidelines for follow-up and management of incidentally detected pulmonary nodules: Multiple Solid Nodules: Nodule size equals 6-8 mm In a low-risk patient, CT at 3-6 months, then consider CT at 18-24 months. In a high-risk patient, CT at 3-6 months, then CT at 18-24 months. - Low risk patients include individuals with minimal or absent history of smoking and other known risk factors. - High risk patients include individuals with a history or smoking or known risk factors. Radiology 2017 http://pubs.[facility].org/doi/full/10.1148/radiol.[email or web address] D/ / Hernando Geiger / Hernando Geiger Interpreting Provider: Hernando Geiger - EKG Data EKG attestation: Yes I reviewed and interpreted this EKG. EKG results narrative: Patient EKG shows sinus rhythm with PVCs at a heart rate of 87 bpm, LA interval of 166 ms, QS duration 90 ms, QT/QTc intervals of 385/464 ms respectively. There are no significant ST segment elevations, depressions, pathologic Q waves, abnormal T-wave inversions, nor any other signs of acute ischemic change. This EKG is performed today is generally consistent with prior EKG performed on 03/07/2018.
[2018-10-25 13:27] LABS: Basophils % 0.1 %; Hemoglobin 8.7 g/dL (11.5-15.4)
[2018-10-25 13:28] LABS: Hematocrit 31.7 % (35.3-44.9); Immature Granulocytes % 0.8 % (0-4); Lymphocytes # 0.4 K/mcL (0.6-4.6); Lymphocytes % 1.5 %; Mean Corpuscular HGB Conc 27.4 g/dL (31.6-35.5); Mean Corpuscular Hemoglobin 22.2 pg (28.0-33.3); Mean Corpuscular Volume 80.9 fL (83.0-100.0); Mean Platelet Volume 9.5 fL (9.4-12.4); Monocytes # 0.5 K/mcL (0.0-1.3); Monocytes % 2.1 %; Neutrophils # 22.4 K/mcL (1.6-8.9); Platelet Count 342 K/mcL (140-400); Red Blood Count 3.92 M/mcL (3.82-4.97); Red Cell Distribution Width 18.9 % (11.5-14.5); Segmented Neutrophils % 95.5 %; White Blood Count 23.4 K/mcL (4.3-11.1)
[2018-10-25 13:34] LABS: INR 1.8; Prothrombin Time 20.1 Seconds (9.4-12.1)
[2018-10-25 14:02] LABS: Troponin I 0.04 ng/mL (< 0.04)
[2018-10-25 14:07] LABS: Anisocytosis 1+ (Not Present); Hypochromasia Present (Not Present); Platelet Estimate Normal (Normal)
[2018-10-25 14:13] LABS: VBG HCO3 23 mEq/L (21-27); VBG PCO2 36 mmHg (41-51); VBG PH 7.42 pH Units (7.32-7.42); VBG PO2 92 mmHg (25-50)
[2018-10-25] MEDS ORDERED: levoFLOXacin 750 MG/150 ML 750 MG/150 ML BAG IVPB ONE (14:16)
--- NOTE | 2018-10-25 14:46 | Emergency Department Note ---
Disposition Clinical Impression: Healthcare-associated pneumonia Disposition: Admitted As Inpatient Condition: Fair Time of Disposition: 16:40 General Adult HPI - General Chief complaint: ED Shortness of Breath/Dyspnea Stated complaint: LISHA Time Seen by Provider: 10/25/18 12:38 Source: patient, family, EMS Mode of arrival: EMS Limitations: no limitations Nursing Notes Reviewed: Yes Vital Signs Reviewed: Yes - History of Present Illness Pain Scale: 7 - Related Data Home Medications Medication Instructions Recorded Confirmed Ipratropium/Albuterol Neb [Duoneb] 3 ml IH Q6HR PRN 08/22/16 10/25/18 Ascorbate Calcium [Vitamin C] 500 mg PO DAILY 01/31/17 10/25/18 Atorvastatin Calcium [Lipitor] 20 mg PO HS 01/31/17 10/25/18 Guaifenesin [Mucinex] 600 mg PO BID 01/31/17 10/25/18 Insulin LISPRO [HumaLOG] 0 - 10 units SQ TIDAC 01/31/17 10/25/18 LORazepam [Ativan] 0.5 mg PO TID PRN 01/31/17 10/25/18 Albuterol Sulfate [Proventil Hfa] 2 puff IH Q6H PRN 07/06/17 10/25/18 Darbepoetin [Aranesp] 80 mcg IV WE 07/06/17 10/25/18 Albuterol Neb [Proventil Neb] 2.5 mg IH Q2H PRN 07/19/17 10/25/18 Pantoprazole Sodium [Protonix] 40 mg PO BID 07/19/17 10/25/18 Renal Vitamin [Renal Caps Softgel] 1 mg PO DAILY 07/19/17 10/25/18 Budesonide/Formoterol 160/4.5 2 puff IH BIDR 03/07/18 10/25/18 [Symbicort 160/4.5] Calcitriol 0.5 mcg PO MOWEFR 03/07/18 10/25/18 Insulin Degludec [Tresiba 20 unit SQ DAILY 03/07/18 10/25/18 Flextouch U-100] Metoprolol [Lopressor] 12.5 mg PO BID 03/07/18 10/25/18 Amiodarone [Cordarone] 200 mg PO DAILY 09/04/18 10/25/18 Buspirone HCl [Buspar] 15 mg PO BID 09/04/18 10/25/18 Lanthanum Carbonate [Fosrenol] 1,000 mg PO TIDWM 09/04/18 10/25/18 Venlafaxine [Effexor] 37.5 mg PO DAILY 09/04/18 10/25/18 Apixaban [Eliquis] 2.5 mg PO DAILY 10/25/18 10/25/18 Diclofenac Sodium [Voltaren] 1 appl TP QID 10/25/18 10/25/18 Oxycodone HCl/Acetaminophen 1 each PO Q6-8H PRN 10/25/18 10/25/18 [Percocet 5-325 mg Tablet] Sennosides [Senna] 8.6 mg PO DAILY PRN 10/25/18 10/25/18 predniSONE [PredniSONE] 7 mg PO DAILY 10/25/18 10/25/18 Allergies Allergy/AdvReac Type Severity Reaction Status Date / Time aspirin [ASA] Allergy Swelling Verified 10/25/18 11:43 of Lip/Tongue/Throat NSAIDS (Non-Steroidal Allergy Swelling Verified 10/25/18 11:43 Anti-Inflamma of Lip/Tongue/Throat Penicillins Allergy Swelling Verified 10/25/18 11:43 of Lip/Tongue/Throat azithromycin AdvReac Fever Verified 10/25/18 11:43 iron AdvReac Unknown Verified 10/25/18 11:43 Past Medical History - Past Medical History Medical history: Reports: atrial fibrillation, cancer, CHF, COPD, CVA, diabetes, dialysis, hyperlipidemia, hypertension, myocardial infarction, renal disease Surgical history: Reports: appendectomy, breast surgery, cholecystectomy, colectomy, hysterectomy, other Psychiatric history: Reports: anxiety, depression ELECTROLYTIC DE SCALER history: Reports: no ELECTROLYTIC DE SCALER history - Social History Smoking Status: Former smoker Smokeless Tobacco Status: No Alcohol use: Reports: none Drug use: Reports: none Physical Exam - General Limitations: no limitations General appearance: alert, in no apparent distress Course Vital Signs Temperature 98.2 F 10/25/18 12:30 Pulse Rate 88 10/25/18 12:30 Respiratory Rate 16 10/25/18 12:30 Blood Pressure 118/61 10/25/18 12:30 O2 Sat by Pulse Oximetry 100 10/25/18 12:30 Temperature 98.8 F 10/25/18 16:24 Pulse Rate 84 10/25/18 16:58 Respiratory Rate 18 10/25/18 16:58 Blood Pressure 131/60 10/25/18 16:58 O2 Sat by Pulse Oximetry 98 10/25/18 16:58 Oxygen Delivery Oxygen Delivery Trach Mask Medical Decision Making - Lab Data Result diagrams: 10/25/18 12:38 10/25/18 12:38 Lab Results 10/25/18 10/25/18 10/25/18 Range/Units 12:38 12:38 12:38 WBC 23.4 H (4.3-11.1) K/mcL RBC 3.92 (3.82-4.97) M/mcL Hgb 8.7 L (11.5-15.4) g/dL Hct 31.7 L (35.3-44.9) % MCV 80.9 L (83.0-100.0) fL MCH 22.2 L (28.0-33.3) pg MCHC 27.4 L (31.6-35.5) g/dL RDW 18.9 H (11.5-14.5) % Plt Count 342 (140-400) K/mcL MPV 9.5 (9.4-12.4) fL Immature Gran % 0.8 (0-4) % Seg Neutrophils % 95.5 % Lymphocytes % 1.5 % Monocytes % 2.1 % Eosinophils % 0.0 % Basophils % 0.1 % Neutrophils # 22.4 H (1.6-8.9) K/mcL Lymphocytes # 0.4 L (0.6-4.6) K/mcL Monocytes # 0.5 (0.0-1.3) K/mcL Eosinophils # 0.0 (0.0-0.6) K/mcL Basophils # 0.0 (0.0-0.2) K/mcL Platelet Estimate Normal (Normal) Hypochromasia Present A (Not Present) Anisocytosis 1+ A (Not Present) PT 20.1 H (9.4-12.1) Seconds INR 1.8 D-Dimer 2430 H (0-500) ng/mLFEU VBG pH (7.32-7.42) pH Units VBG pCO2 (41-51) mmHg VBG pO2 (25-50) mmHg VBG HCO3 (21-27) mEq/L Sodium 129 L (136-145) mEq/L Potassium 3.1 L (3.5-5.1) mEq/L Chloride 92 L (98-107) mEq/L Carbon Dioxide 24 (23-29) mEq/L BUN 49 H (8-23) mg/dL Creatinine 2.54 H (0.60-1.20) mg/dL Est GFR ( Amer) 22 L (> 60) Est GFR (Non-Af Amer) 18 L (> 60) BUN/Creatinine Ratio 19 (6-26) Glucose 151 H (70-105) mg/dL Calculated Osmolality 284 (280-300) Lactic Acid (0.5-2.2) mmol/L Calcium 8.8 (8.6-10.3) mg/dL Total Bilirubin 0.6 (0.3-1.0) mg/dL Direct Bilirubin 0.2 (0.0-0.2) mg/dL Indirect Bilirubin 0.4 (0.0-1.2) mg/dL AST 11 L (13-39) Units/L ALT 11 (7-52) Units/L Alkaline Phosphatase 128 H (34-104) Units/L Creatine Kinase < 10 L (30-223) Units/L Troponin I 0.04 H* (< 0.04) ng/mL B-Natriuretic Peptide (Less than 100) pg/mL Serum Total Protein 6.5 (6.4-8.9) g/dL Albumin 2.5 L (3.5-5.7) g/dL Globulin 4.0 H (2.4-3.5) g/dL Albumin/Globulin Ratio 0.6 L (1.1-2.2) 10/25/18 10/25/18 10/25/18 Range/Units 12:38 13:10 14:11 WBC (4.3-11.1) K/mcL RBC (3.82-4.97) M/mcL Hgb (11.5-15.4) g/dL Hct (35.3-44.9) % MCV (83.0-100.0) fL MCH (28.0-33.3) pg MCHC (31.6-35.5) g/dL RDW (11.5-14.5) % Plt Count (140-400) K/mcL MPV (9.4-12.4) fL Immature Gran % (0-4) % Seg Neutrophils % % Lymphocytes % % Monocytes % % Eosinophils % % Basophils % % Neutrophils # (1.6-8.9) K/mcL Lymphocytes # (0.6-4.6) K/mcL Monocytes # (0.0-1.3) K/mcL Eosinophils # (0.0-0.6) K/mcL Basophils # (0.0-0.2) K/mcL Platelet Estimate (Normal) Hypochromasia (Not Present) Anisocytosis (Not Present) PT (9.4-12.1) Seconds INR D-Dimer (0-500) ng/mLFEU VBG pH 7.42 (7.32-7.42) pH Units VBG pCO2 36 L (41-51) mmHg VBG pO2 92 H (25-50) mmHg VBG HCO3 23 (21-27) mEq/L Sodium (136-145) mEq/L Potassium (3.5-5.1) mEq/L Chloride (98-107) mEq/L Carbon Dioxide (23-29) mEq/L BUN (8-23) mg/dL Creatinine (0.60-1.20) mg/dL Est GFR ( Amer) (> 60) Est GFR (Non-Af Amer) (> 60) BUN/Creatinine Ratio (6-26) Glucose (70-105) mg/dL Calculated Osmolality (280-300) Lactic Acid 1.3 (0.5-2.2) mmol/L Calcium (8.6-10.3) mg/dL Total Bilirubin (0.3-1.0) mg/dL Direct Bilirubin (0.0-0.2) mg/dL Indirect Bilirubin (0.0-1.2) mg/dL AST (13-39) Units/L ALT (7-52) Units/L Alkaline Phosphatase (34-104) Units/L Creatine Kinase (30-223) Units/L Troponin I (< 0.04) ng/mL B-Natriuretic Peptide 492 H (Less than 100) pg/mL Serum Total Protein (6.4-8.9) g/dL Albumin (3.5-5.7) g/dL Globulin (2.4-3.5) g/dL Albumin/Globulin Ratio (1.1-2.2) 10/25/18 Range/Units 15:11 WBC (4.3-11.1) K/mcL RBC (3.82-4.97) M/mcL Hgb (11.5-15.4) g/dL Hct (35.3-44.9) % MCV (83.0-100.0) fL MCH (28.0-33.3) pg MCHC (31.6-35.5) g/dL RDW (11.5-14.5) % Plt Count (140-400) K/mcL MPV (9.4-12.4) fL Immature Gran % (0-4) % Seg Neutrophils % % Lymphocytes % % Monocytes % % Eosinophils % % Basophils % % Neutrophils # (1.6-8.9) K/mcL Lymphocytes # (0.6-4.6) K/mcL Monocytes # (0.0-1.3) K/mcL Eosinophils # (0.0-0.6) K/mcL Basophils # (0.0-0.2) K/mcL Platelet Estimate (Normal) Hypochromasia (Not Present) Anisocytosis (Not Present) PT (9.4-12.1) Seconds INR D-Dimer (0-500) ng/mLFEU VBG pH (7.32-7.42) pH Units VBG pCO2 (41-51) mmHg VBG pO2 (25-50) mmHg VBG HCO3 (21-27) mEq/L Sodium (136-145) mEq/L Potassium (3.5-5.1) mEq/L Chloride (98-107) mEq/L Carbon Dioxide (23-29) mEq/L BUN (8-23) mg/dL Creatinine (0.60-1.20) mg/dL Est GFR ( Amer) (> 60) Est GFR (Non-Af Amer) (> 60) BUN/Creatinine Ratio (6-26) Glucose (70-105) mg/dL Calculated Osmolality (280-300) Lactic Acid (0.5-2.2) mmol/L Calcium (8.6-10.3) mg/dL Total Bilirubin (0.3-1.0) mg/dL Direct Bilirubin (0.0-0.2) mg/dL Indirect Bilirubin (0.0-1.2) mg/dL AST (13-39) Units/L ALT (7-52) Units/L Alkaline Phosphatase (34-104) Units/L Creatine Kinase (30-223) Units/L Troponin I 0.04 H* (< 0.04) ng/mL B-Natriuretic Peptide (Less than 100) pg/mL Serum Total Protein (6.4-8.9) g/dL Albumin (3.5-5.7) g/dL Globulin (2.4-3.5) g/dL Albumin/Globulin Ratio (1.1-2.2) Critical Care Time Critical Care Time: Yes Total Critical Care Time: 35 Attestation: Critical care performed: Time is exclusive of separately billable procedures. Time includes: direct patient care, patient reassessment, coordination of patient care, interpretation of data (laboratory data, radiology data, and respiratory data), review of patient's medical records, medical consultation and documentation of patient care. Procedures included in critical care time: Procedures excluded from critical care time: Attestation Statement - Attestation Attestation: I examined this patient and my medical decision-making was reviewed with the Resident Physician. I agree with the documented findings, disposition and treatment plan as described except to the extent set forth below. Patient presented to the ED with her daughters. She was sent from the cancer center. Patient was going to the cancer Center to follow-up with an abnormal chest CT. She does have a history of breast cancer that is felt to be in remission. She got the cancer center they were concerned that she was short of breath and swollen so they called 911 and sent her to the ED. Family states she is at increased swelling for the past few days. She short of breath. She has a history of a trach was placed for respiratory failure in the past. On examination he does not appear to be in any acute respiratory distress. She does have pedal edema up past her knees. Lungs with rhonchi some rails. Plan. Cardiac workup. Diuresis. White blood cell count over 20,000. X-ray is atelectasis versus pneumonia. We did cover her for healthcare associated pneumonia. We will check a CTA as her d-dimer is over 2500. Discussed with her travel accommodation inspector prior to CTA. CTA negative for PE. She does have an infiltrate. She is provided broad- spectrum anabiotic cinnamon admitted to medicine. Chest X-Ray 10/25/18 12:39 IMPRESSION: Mild pulmonary edema appears stable to slightly increased from prior exam. New bandlike opacity in the left lung base may represent atelectasis. Developing pneumonitis can not be excluded. D/ / Martin Mosley MD / Martin Mosley MD Interpreting Provider: Martin Mosley MD Chest CTA 10/25/18 14:59 IMPRESSION: No evidence of pulmonary embolism. Enlarged main pulmonary artery measuring 3.5 cm in diameter suggesting pulmonary hypertension. Severe emphysematous changes. Redemonstration of multiple 7 mm and smaller right lung nodules which are of uncertain etiology. Continued follow-up is advised as described below. Dense coronary artery calcifications. RECOMMENDATIONS: Fleischner Society guidelines for follow-up and management of incidentally detected pulmonary nodules: Multiple Solid Nodules: Nodule size equals 6-8 mm In a low-risk patient, CT at 3-6 months, then consider CT at 18-24 months. In a high-risk patient, CT at 3-6 months, then CT at 18-24 months. - Low risk patients include individuals with minimal or absent history of smoking and other known risk factors. - High risk patients include individuals with a history or smoking or known risk factors. Radiology 2017 http://pubs.rsna.org/doi/full/10.1148/radiol.[email or web address] D/ / Hernando Geiger / Hernando Geiger Interpreting Provider: Hernando Geiger
[2018-10-25 14:49] LABS: Alanine Aminotransferase 11 Units/L (7-52); Albumin 2.5 g/dL (3.5-5.7); Albumin/Globulin Ratio 0.6 (1.1-2.2); Alkaline Phosphatase 128 Units/L (34-104); Aspartate Amino Transferase 11 Units/L (13-39); BUN/Creatinine Ratio 19 (6-26); Bilirubin,Direct 0.2 mg/dL (0.0-0.2); Bilirubin,Indirect 0.4 mg/dL (0.0-1.2); Bilirubin,Total 0.6 mg/dL (0.3-1.0); Blood Urea Nitrogen 49 mg/dL (8-23); Calcium 8.8 mg/dL (8.6-10.3); Carbon Dioxide 24 mEq/L (23-29); Chloride 92 mEq/L (98-107); Creatine Kinase < 10 Units/L (30-223); Glucose 151 mg/dL (70-105); Osmolality,Calculated 284 (280-300); Potassium 3.1 mEq/L (3.5-5.1); Sodium 129 mEq/L (136-145); Total Protein 6.5 g/dL (6.4-8.9); eGFR For African Americans 22 (> 60); eGFR For Non-African Americans 18 (> 60)
[2018-10-25] MEDS ORDERED: Isovue-370 500 ML BOTTLE IVP ONE (14:59)
[2018-10-25] MEDS ORDERED: Cefepime HCl 1,000 MG in Water for inj. (sterile) 10 ML IVP ONE (15:00)
--- NOTE | 2018-10-25 16:23 | Electrocardiograph Report ---
[address] [address] Test Date: 2018-10-25 Pat Name: Dorothy Parks Department: EXAM9 Room: Gender: F Orthopedic Nurse: : 1940 Requested By: Bill Herrera Order Number: [id number] Reading MD: Kj Yost Measurements Intervals [place] Rate: 87 P: 2 OK: 166 QRS: 9 QRSD: 93 T: 75 QT: 385 QTc: 464 Interpretive Statements Sinus rhythm PVC Electronically Signed On 10-25-2018 16:21:34 EDT by Kj Yost
[2018-10-25] MEDS ORDERED: Naloxone 0.4 MG/ML INJ IVP PRN (17:07)
[2018-10-25] MEDS ORDERED: *HR* HYDROcodone/Acet 5/325 mg TABLET PO PRN (17:07)
[2018-10-25] MEDS ORDERED: Ipratropium/Albuterol Neb 3 ML IH PRN (17:14)
--- NOTE | 2018-10-25 17:34 | Nephrology Consult Note ---
Date of Encounter: 10/25/18 Time of Encounter: 17:32 History of Present Illness - Reason for Consult Consult date: 10/25/18 end stage renal disease - Chief Complaint esrd - History of Present Illness Mrs. Parks is a 78-year-old woman with a history of end-stage renal disease who presents with shortness of breath and was found to have a pneumonia. She is accompanied by her daughters who are at the bedside and provides most of the history along with reviewing her medical record. The patient has a trach and does not talk much. The patient's of these complaints seem to be some pain in her side has been going on for a little while. She takes opiates at home. She received fentanyl in the emergency room however she is to be uncomfortable at this time. She does admit to some dyspnea, but no chest pain. She has no nausea, vomiting, or diarrhea. Her daughters feel that she has too much fluid on board. Family history is irrelevant. Past Med Surg Social Fam HX - Past Medical History Medical history: atrial fibrillation, cancer, CHF, COPD, CVA, diabetes, dialysis, hyperlipidemia, hypertension, myocardial infarction, renal disease Additional medical history: right breast Psychiatric history: anxiety, depression - Past Surgical History Surgical History: appendectomy, breast surgery, cholecystectomy, colectomy, hysterectomy, other Additional surgical history: trach. Peg tube - Social History Smoking Status: Former smoker Smokeless Tobacco Status: No Alcohol use: none Drug use: none - Family History Mother Family Member Ethnicity: Non- Living Status: Hx Family Cardiac Disorders: No Hx Family Respiratory Disorders: No Hx Family Cancer: Yes (colon) Hx Family GI Disorders: No Hx Family Endocrine Disorder: No Hx Family Neuromuscular Disorders: No Hx Family Neurologic Disorders: No Hx Family HEENT Disorders: No Hx Family Autoimmune Disorders: No Father Living Status: Hx Family Cardiac Disorders: No Hx Family Respiratory Disorders: No Hx Family Cancer: Yes Hx Family GI Disorders: Yes Hx Family Endocrine Disorder: Yes (diabetic) Hx Family Neuromuscular Disorders: No Hx Family Neurologic Disorders: No Hx Family HEENT Disorders: No Hx Family Autoimmune Disorders: No Medications and Allergies Ipratropium/Albuterol Neb [Duoneb] 3 ml IH Q6HR PRN 08/22/16 [History] Ascorbate Calcium [Vitamin C] 500 mg PO DAILY 01/31/17 [History] Atorvastatin Calcium [Lipitor] 20 mg PO HS 01/31/17 [History] Guaifenesin [Mucinex] 600 mg PO BID 01/31/17 [History] Insulin LISPRO [HumaLOG] 0 - 10 units SQ TIDAC 01/31/17 [History] LORazepam [Ativan] 0.5 mg PO TID PRN 01/31/17 [History] Albuterol Sulfate [Proventil Hfa] 2 puff IH Q6H PRN 07/06/17 [History] Darbepoetin [Aranesp] 80 mcg IV WE 07/06/17 [History] Albuterol Neb [Proventil Neb] 2.5 mg IH Q2H PRN 07/19/17 [History] Pantoprazole Sodium [Protonix] 40 mg PO BID 07/19/17 [History] Renal Vitamin [Renal Caps Softgel] 1 mg PO DAILY 07/19/17 [History] Budesonide/Formoterol 160/4.5 [Symbicort 160/4.5] 2 puff IH BIDR 03/07/18 [History] Calcitriol 0.5 mcg PO MOWEFR 03/07/18 [History] Insulin Degludec [Tresiba Flextouch U-100] 20 unit SQ DAILY 03/07/18 [History] Metoprolol [Lopressor] 12.5 mg PO BID 03/07/18 [History] Amiodarone [Cordarone] 200 mg PO DAILY 09/04/18 [History] Buspirone HCl [Buspar] 15 mg PO BID 09/04/18 [History] Lanthanum Carbonate [Fosrenol] 1,000 mg PO TIDWM 09/04/18 [History] Venlafaxine [Effexor] 37.5 mg PO DAILY 09/04/18 [History] Apixaban [Eliquis] 2.5 mg PO DAILY 10/25/18 [History] Diclofenac Sodium [Voltaren] 1 appl TP QID 10/25/18 [History] Oxycodone HCl/Acetaminophen [Percocet 5-325 mg Tablet] 1 each PO Q6-8H PRN 10/25/18 [History] Sennosides [Senna] 8.6 mg PO DAILY PRN 10/25/18 [History] predniSONE [PredniSONE] 7 mg PO DAILY 10/25/18 [History] Allergy/AdvReac Type Severity Reaction Status Date / Time aspirin [ASA] Allergy Swelling Verified 10/25/18 11:43 of Lip/Tongue/Throat NSAIDS (Non-Steroidal Allergy Swelling Verified 10/25/18 11:43 Anti-Inflamma of Lip/Tongue/Throat Penicillins Allergy Swelling Verified 10/25/18 11:43 of Lip/Tongue/Throat azithromycin AdvReac Fever Verified 10/25/18 11:43 iron AdvReac Unknown Verified 10/25/18 11:43 Review of Systems ROS unobtainable: due to endotracheal tube (Due to her trach.) Exam - Vital Signs Vital signs: Initial Vital Signs Temp Pulse Resp BP Pulse Ox 98.2 F 88 16 118/61 100 10/25/18 12:30 10/25/18 12:30 10/25/18 12:30 10/25/18 12:30 10/25/18 12:30 Vital Signs - Last 8 Hours Temp Pulse Resp BP Pulse Ox 10/25/18 16:58 84 18 131/60 98 10/25/18 16:24 98.8 F 88 128/91 99 10/25/18 14:54 86 116/94 100 10/25/18 14:17 83 20 110/89 96 10/25/18 12:50 99 10/25/18 12:30 98.2 F 88 16 118/61 100 Intake and Output 10/25/18 10/25/18 10/25/18 07:59 15:59 23:59 Intake Total 160 / 160 Balance 160 / 160 Intake: IV Fluids 160 / 160 Maxipime 1,000 MG In Water for 10 10 inj. (sterile) 10 ML @ 300 mls/ hr IVP ONCE ONE Rx#:[id number] Levaquin Premix 750mg/150 mL 150 / 150 750 mg In 150 ml @ 100 mls/hr IVPB ONCE ONE Rx#:[id number] Other: Weight 76.022 kg Patient Weight 10/25/18 23:59 Weight 76.022 kg - General Appearance General appearance: well-developed, well-nourished, chronically ill, frail EENT: ATNC Neck: supple Additional Comments: Trach is in place Respiratory: course breath sounds Cardiology: edema, regular rate - Dialysis Access Dialysis Vascular Access: Venous Catheter (Right IJ) Gastrointestinal: no tenderness Integumentary: warm and dry, ecchymotic Neurologic: alert and oriented x3 Musculoskeletal: no cyanosis Psychiatric: mood/affect appropriate Results - Lab Results 10/25/18 12:38 10/25/18 12:38 Most recent lab results 10/25/18 12:38 Calcium 8.8 Consult Discharge Plan - Plan Referrals: Therese Garcia CNP [Primary Care Provider] -
--- NOTE | 2018-10-25 17:39 | Event Note ---
Date of Encounter: 10/25/18 Time of Encounter: 17:35 The H&P that is above will not allow me to put in the assessment and plan so below will be the assessment plan for the H&P for nephrology for this patient. End-stage renal disease HD MWF. Renal vitamins. Renal dose medications. Renal diet. Additional dialysis and ultrafiltration as needed. Patient may need additional fluid off with dialysis Monday. Pneumonia - overall management per the primary team. Continue antibiotics. Back pain - will give an additional dose of fentanyl. I recommend continuing her home pain regimen. Recommend a palliative consult to assist with pain control. Hypokalemia - replace potassium as needed Anemia - transfuse as needed. She does not appear to be actively bleeding.
[2018-10-25] MEDS ORDERED: 0.9 % Sodium Chloride 250 ML IVC PRN (17:41)
[2018-10-25] MEDS ORDERED: 0.9 % Sodium Chloride 1,000 ML PRIME SCH (17:45)
--- NOTE | 2018-10-25 17:58 | Internal Med History&Physical ---
<EdwardOumar - Last Filed: 10/25/18 17:39> Date of Encounter: 10/25/18 Time of Encounter: 16:30 Internal Medicine - H&P: HPI Chief complaint: LISHA Admitted From: Emergency Dept History of present illness: Ms. Parks is a 78 year old female with a past medical history of ESRD on dialysis, CHF, type 2 diabetes mellitus, and hypertension that presents for shortness of breath. Patient is accompanied by both daughters at bedside. She has a tracheostomy tube in place. They say that the patient has been having difficulty breathing for the past day. They noticed progressive shortness of breath along with orthopnea. The also noted swelling in her left lower extremity which then progressed to her right lower extremity for the past 2 days. Daughter states that patient had recently had a compression fracture of the right humerus on 09/20/18. She was put on oxycodone for pain control. Daughter states since then the patient has been very lethargic and has not been moving around much. This is when she started noticing increased swelling in the patient's lower extremities. 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 As a result she was put on Eliquis. When patient presented to the ER she demonstrated a leukocytosis of 23.4. Patient was afebrile and had a normal pulse rate. The pressure was normotensive. She demonstrated mild hypokalemia and hyponatremia. Creatinine level was at 2.54. Troponins were 0.042. BMP was elevated at 492. She did demonstrate an elevated d-dimer of 2430. INR level was subtherapeutic at 1.8. Liver enzymes were normal. Chest x-ray showed mild pulmonary edema that was slightly increased from prior. Showed new bandlike opacity in the left lung base and possible pneumonitis. When I spoke to her patient denied any chest pain. Admitted to some minor difficulty with breathing. Denied any abdominal pain, nausea, or vomiting. Daughter denies any fever in the past few days. Past Med Surg Social Fam HX - Past Medical History Medical history: atrial fibrillation, cancer, CHF, COPD, CVA, diabetes, dialysis, hyperlipidemia, hypertension, myocardial infarction, renal disease Additional medical history: right breast Psychiatric history: anxiety, depression - Past Surgical History Surgical History: appendectomy, breast surgery, cholecystectomy, colectomy, hysterectomy, other Additional surgical history: trach. Peg tube - Social History Smoking Status: Former smoker Smokeless Tobacco Status: No Alcohol use: none Drug use: none - Family History Mother Family Member Ethnicity: Non- Living Status: Hx Family Cardiac Disorders: No Hx Family Respiratory Disorders: No Hx Family Cancer: Yes (colon) Hx Family GI Disorders: No Hx Family Endocrine Disorder: No Hx Family Neuromuscular Disorders: No Hx Family Neurologic Disorders: No Hx Family HEENT Disorders: No Hx Family Autoimmune Disorders: No Father Living Status: Hx Family Cardiac Disorders: No Hx Family Respiratory Disorders: No Hx Family Cancer: Yes Hx Family GI Disorders: Yes Hx Family Endocrine Disorder: Yes (diabetic) Hx Family Neuromuscular Disorders: No Hx Family Neurologic Disorders: No Hx Family HEENT Disorders: No Hx Family Autoimmune Disorders: No Internal Medicine - H&P: Meds Ipratropium/Albuterol Neb [Duoneb] 3 ml IH Q6HR PRN 08/22/16 [History] Ascorbate Calcium [Vitamin C] 500 mg PO DAILY 01/31/17 [History] Atorvastatin Calcium [Lipitor] 20 mg PO HS 01/31/17 [History] Guaifenesin [Mucinex] 600 mg PO BID 01/31/17 [History] Insulin LISPRO [HumaLOG] 0 - 10 units SQ TIDAC 01/31/17 [History] LORazepam [Ativan] 0.5 mg PO TID PRN 01/31/17 [History] Albuterol Sulfate [Proventil Hfa] 2 puff IH Q6H PRN 07/06/17 [History] Darbepoetin [Aranesp] 80 mcg IV WE 07/06/17 [History] Albuterol Neb [Proventil Neb] 2.5 mg IH Q2H PRN 07/19/17 [History] Pantoprazole Sodium [Protonix] 40 mg PO BID 07/19/17 [History] Renal Vitamin [Renal Caps Softgel] 1 mg PO DAILY 07/19/17 [History] Budesonide/Formoterol 160/4.5 [Symbicort 160/4.5] 2 puff IH BIDR 03/07/18 [History] Calcitriol 0.5 mcg PO MOWEFR 03/07/18 [History] Insulin Degludec [Tresiba Flextouch U-100] 20 unit SQ DAILY 03/07/18 [History] Metoprolol [Lopressor] 12.5 mg PO BID 03/07/18 [History] Amiodarone [Cordarone] 200 mg PO DAILY 09/04/18 [History] Buspirone HCl [Buspar] 15 mg PO BID 09/04/18 [History] Lanthanum Carbonate [Fosrenol] 1,000 mg PO TIDWM 09/04/18 [History] Venlafaxine [Effexor] 37.5 mg PO DAILY 09/04/18 [History] Apixaban [Eliquis] 2.5 mg PO DAILY 10/25/18 [History] Diclofenac Sodium [Voltaren] 1 appl TP QID 10/25/18 [History] Oxycodone HCl/Acetaminophen [Percocet 5-325 mg Tablet] 1 each PO Q6-8H PRN 10/25/18 [History] Sennosides [Senna] 8.6 mg PO DAILY PRN 10/25/18 [History] predniSONE [PredniSONE] 7 mg PO DAILY 10/25/18 [History] Allergy/AdvReac Type Severity Reaction Status Date / Time aspirin [ASA] Allergy Swelling Verified 10/25/18 11:43 of Lip/Tongue/Throat NSAIDS (Non-Steroidal Allergy Swelling Verified 10/25/18 11:43 Anti-Inflamma of Lip/Tongue/Throat Penicillins Allergy Swelling Verified 10/25/18 11:43 of Lip/Tongue/Throat azithromycin AdvReac Fever Verified 10/25/18 11:43 iron AdvReac Unknown Verified 10/25/18 11:43 All Systems PM: A 10-system review of systems was performed and is negative for pertinent findings except as documented above in the HPI. - Constitutional Constitutional: weakness, no fever(s) - EENT Eyes: as per HPI - Cardiovascular Cardiovascular ROS IM: dyspnea, edema, orthopnea, no chest pain, no syncope - Respiratory Respiratory: dyspnea, wheezing - Gastrointestinal Gastrointestinal: loose stools, no abdominal pain, no nausea, no vomiting - Musculoskeletal Musculoskeletal ROS IM: back pain, muscle weakness - Integumentary Integumentary IM: skin ulcer - Neurological Neurological ROS: weakness, no behavioral changes, no confusion, no headache(s) - Psychiatric Psychiatric: as per HPI - Endocrine Endocrine IM: as per HPI - Constitutional Vitals: Temp Pulse Resp BP Pulse Ox 98.8 F 84 18 131/60 98 10/25/18 16:24 10/25/18 16:58 10/25/18 16:58 10/25/18 16:58 10/25/18 16:58 Exam: GENERAL APPEARANCE: Frail, alert and cooperative, and appears to be in no acute distress. HEAD: normocephalic. EYES: PERRL, EOMI. Fundi normal, vision is grossly intact. EARS: hearing grossly intact. NOSE: No nasal discharge. THROAT: Oral cavity and pharynx normal. No inflammation, swelling, exudate, or lesions. NECK: Neck supple, non-tender without lymphadenopathy, masses or thyromegaly. CARDIAC: Normal S1 and S2. No S3, S4 or murmurs. Rhythm is regular. There is no cyanosis or pallor. Extremities are warm and well perfused. Capillary refill is less than 2 seconds. No carotid bruits. LUNGS: Crackles, rhales, and wheezing b/l. ABDOMEN: Positive bowel sounds. Soft, nontender. Mild distension. No guarding or rebound. No masses. MUSKULOSKELETAL: No joint erythema or tenderness. Normal muscular development. EXTREMITIES: No significant deformity or joint abnormality. Peripheral pulses intact. No varicosities. +2 pitting edema b/l of the LE. LOWER EXTREMITY: Examination of both feet reveals R toe bandaged from chronic pressure ulcer. Distal capillary filling of less than 2 seconds without tenderness, swelling, discoloration, nodules, weakness or deformity; examination of both ankles, knees, legs, and hips reveals normal range of motion, normal sensation without tenderness, swelling, discoloration, crepitus, weakness or deformity. SKIN: Skin shows multiple superficial vessel bleeds. No active bleeding, pus, or drainage. PSYCHIATRIC: The mental examination revealed the patient was oriented to person, place, and time. Internal Med - H&P Results - Labs CBC & Chem 7: 10/25/18 12:38 10/25/18 12:38 Labs: Short CBC 10/25/18 Range/Units 12:38 WBC 23.4 H (4.3-11.1) K/mcL Hgb 8.7 L (11.5-15.4) g/dL Hct 31.7 L (35.3-44.9) % Plt Count 342 (140-400) K/mcL Neutrophils # 22.4 H (1.6-8.9) K/mcL BMP 10/25/18 12:38 Sodium 129 L Potassium 3.1 L Chloride 92 L Carbon Dioxide 24 BUN 49 H Creatinine 2.54 H Glucose 151 H Calcium 8.8 Cardiac Enzymes 10/25/18 10/25/18 Range/Units 12:38 15:11 Troponin I 0.04 H* 0.04 H* (< 0.04) ng/mL Liver Function 10/25/18 Range/Units 12:38 Total Bilirubin 0.6 (0.3-1.0) mg/dL Direct Bilirubin 0.2 (0.0-0.2) mg/dL AST 11 L (13-39) Units/L ALT 11 (7-52) Units/L Alkaline Phosphatase 128 H (34-104) Units/L Albumin 2.5 L (3.5-5.7) g/dL - ABG Interpretation ABG results: 10/25/18 14:11 VBG pH 7.42 VBG pCO2 36 L VBG pO2 92 H VBG HCO3 23 - Impressions ITS Impressions Chest X-Ray 10/25/18 12:39 IMPRESSION: Mild pulmonary edema appears stable to slightly increased from prior exam. New bandlike opacity in the left lung base may represent atelectasis. Developing pneumonitis can not be excluded. D/ / Martin Mosley MD / Martin Mosley MD Interpreting Provider: Martin Mosley MD Chest CTA 10/25/18 14:59 IMPRESSION: No evidence of pulmonary embolism. Enlarged main pulmonary artery measuring 3.5 cm in diameter suggesting pulmonary hypertension. Severe emphysematous changes. Redemonstration of multiple 7 mm and smaller right lung nodules which are of uncertain etiology. Continued follow-up is advised as described below. Dense coronary artery calcifications. RECOMMENDATIONS: Fleischner Society guidelines for follow-up and management of incidentally detected pulmonary nodules: Multiple Solid Nodules: Nodule size equals 6-8 mm In a low-risk patient, CT at 3-6 months, then consider CT at 18-24 months. In a high-risk patient, CT at 3-6 months, then CT at 18-24 months. - Low risk patients include individuals with minimal or absent history of smoking and other known risk factors. - High risk patients include individuals with a history or smoking or known risk factors. Radiology 2017 http://pubs.rsna.org/doi/full/10.1148/radiol.[email or web address] D/ / Hernando Geiger / Hernando Geiger Interpreting Provider: Hernando Geiger - Assessment and Plan (1) Dyspnea Current Visit: No Status: Acute Assessment and plan: Likely secondary to CHF exacerbation. Chest x-ray showed pulmonary edema with bandlike opacity in the left lung base. Had an elevated BMP on arrival. Demonstrates left lower extremity swelling. Denies any active chest pain. Unclear if there is a infectious etiology for patient's chest x-ray findings as well as dyspnea. She has been afebrile and has not been producing any productive cough however she did present with a significant white blood cell elevation of 23.4. Ordered pro-calcitonin to verify bacterial etiology. Ordered viral respiratory panel to rule out viral etiology. Patient also had elevated D dimers however CTA of the chest ruled out PE. Plan: - Strict I/O's. - Patient to resume hemodialysis Monday which will help with her fluid removal. - Follow up with pro-calcitonin. If positive consider starting on doxycycline. - Resume home medications for COPD. Increase home prednisone to 20 mg by mouth daily. - Fluid restriction diet 1500 mL per day. Qualifiers: Qualified Code(s): R06.00 - Dyspnea, unspecified (2) CKD (chronic kidney disease) stage V requiring chronic dialysis Current Visit: No Status: Chronic Assessment and plan: On hemodialysis Monday schedule. Normally goes to [facility] and has been compliant with her treatments. Labs showed hypokalemia, mild hyponatremia, and creatinine level 2.54. Plan: - Resume hemodialysis schedule. - Avoid nephrotoxins. - Renal dose medications. (3) Tracheostomy dependent Current Visit: Yes Status: Acute Assessment and plan: On 09/06/2016, she had an extended right colectomy and lysis of adhesions.During this hospitalization she developed acute on chronic respiratory failure, acute, exacerbation of COPD, Acute on chronic kidney injury, bacteremia due to VRE, invasive pulmonary aspergillosis. 09/26/16 and subsequently had endotrachial tube placed. (4) Afib Current Visit: No Status: Chronic Assessment and plan: Rate Controlled. Plan: - Resume amiodarone, metoprolol, and Eliquis. Qualifiers: Atrial fibrillation type: chronic Qualified Code(s): I48.2 - Chronic atrial fibrillation (5) T2DM (type 2 diabetes mellitus) Current Visit: Yes Status: Acute Assessment and plan: Insulin dependant. Plan: - Resume home medications. Qualifiers: Chronic kidney disease stage: on chronic dialysis Qualified Code(s): E11.22 - Type 2 diabetes mellitus with diabetic chronic kidney disease; N18.6 - End stage renal disease; Z79.4 - snf (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 (6) Hypokalemia Current Visit: No Status: Acute Assessment and plan: Potassium of 3.1. Plan: - Resume HD tomorrow. (7) Hypertension Current Visit: No Status: Chronic Assessment and plan: BP controlled. Plan: - Resume metoprolol. Qualifiers: Hypertension type: essential hypertension Qualified Code(s): I10 - Essential (primary) hypertension (8) COPD (chronic obstructive pulmonary disease) Current Visit: No Status: Chronic Assessment and plan: - Resume home duonebs and albuterol. - Prednisone 20 mg PO. - O2 treatment as needed. Qualifiers: COPD type: unspecified COPD Qualified Code(s): J44.9 - Chronic obstructive pulmonary disease, unspecified (9) Iron deficiency anemia Current Visit: No Status: Acute Assessment and plan: Hgb 8.7. At baseline. Qualifiers: Iron deficiency anemia type: unspecified iron deficiency Qualified Code(s): D50.9 - Iron deficiency anemia, unspecified (10) DVT prophylaxis Current Visit: No Status: Acute Assessment and plan: On Eliquis. - Time Spent With Patient Total time spent is greater than 50% in coordination of care (as documented) at patient's floor/unit and/or counseling patient: <Jorge Salazar - Last Filed: 10/25/18 19:17> Date of Encounter: 06/20/19 Internal Medicine - H&P: HPI History of present illness: Ms. Parks is a 78 year old female All Systems PM: A 10-system review of systems was performed and is negative for pertinent findings except as documented above in the HPI. - Constitutional Vitals: Temp Pulse Resp BP Pulse Ox 98.6 F 85 17 125/80 96 10/25/18 18:00 10/25/18 18:00 10/25/18 18:00 10/25/18 18:00 10/25/18 18:00 Internal Med - H&P Results - Labs CBC & Chem 7: 10/25/18 12:38 10/25/18 12:38 Labs: Short CBC 10/25/18 Range/Units 12:38 WBC 23.4 H (4.3-11.1) K/mcL Hgb 8.7 L (11.5-15.4) g/dL Hct 31.7 L (35.3-44.9) % Plt Count 342 (140-400) K/mcL Neutrophils # 22.4 H (1.6-8.9) K/mcL BMP 10/25/18 12:38 Sodium 129 L Potassium 3.1 L Chloride 92 L Carbon Dioxide 24 BUN 49 H Creatinine 2.54 H Glucose 151 H Calcium 8.8 Cardiac Enzymes 10/25/18 10/25/18 Range/Units 12:38 15:11 Troponin I 0.04 H* 0.04 H* (< 0.04) ng/mL Liver Function 10/25/18 Range/Units 12:38 Total Bilirubin 0.6 (0.3-1.0) mg/dL Direct Bilirubin 0.2 (0.0-0.2) mg/dL AST 11 L (13-39) Units/L ALT 11 (7-52) Units/L Alkaline Phosphatase 128 H (34-104) Units/L Albumin 2.5 L (3.5-5.7) g/dL - ABG Interpretation ABG results: 10/25/18 14:11 VBG pH 7.42 VBG pCO2 36 L VBG pO2 92 H VBG HCO3 23 - Impressions ITS Impressions Chest X-Ray 10/25/18 12:39 IMPRESSION: Mild pulmonary edema appears stable to slightly increased from prior exam. New bandlike opacity in the left lung base may represent atelectasis. Developing pneumonitis can not be excluded. D/ / Martin Mosley MD / Martin Mosley MD Interpreting Provider: Martin Mosley MD Chest CTA 10/25/18 14:59 IMPRESSION: No evidence of pulmonary embolism. Enlarged main pulmonary artery measuring 3.5 cm in diameter suggesting pulmonary hypertension. Severe emphysematous changes. Redemonstration of multiple 7 mm and smaller right lung nodules which are of uncertain etiology. Continued follow-up is advised as described below. Dense coronary artery calcifications. RECOMMENDATIONS: Fleischner Society guidelines for follow-up and management of incidentally detected pulmonary nodules: Multiple Solid Nodules: Nodule size equals 6-8 mm In a low-risk patient, CT at 3-6 months, then consider CT at 18-24 months. In a high-risk patient, CT at 3-6 months, then CT at 18-24 months. - Low risk patients include individuals with minimal or absent history of smoking and other known risk factors. - High risk patients include individuals with a history or smoking or known risk factors. Radiology 2017 http://pubs.rsna.org/doi/full/10.1148/radiol.9724399912 D/ / Hernando Geiger / Hernando Geiger Interpreting Provider: Hernando Geiger - Assessment and Plan (1) Acute on chronic congestive heart failure Current Visit: No Status: Chronic Qualifiers: Qualified Code(s): I50.33 - Acute on chronic diastolic (congestive) heart failure (2) Acute and chronic respiratory failure ([id number]) Current Visit: No Status: Acute Qualifiers: Respiratory failure complication: hypoxia Qualified Code(s): J96.21 - Acute and chronic respiratory failure with hypoxia (3) COPD (chronic obstructive pulmonary disease) Current Visit: No Status: Chronic Qualifiers: COPD type: unspecified COPD Qualified Code(s): J44.9 - Chronic obstructive pulmonary disease, unspecified (4) Hyponatremia Current Visit: No Status: Acute (5) Hypokalemia Current Visit: No Status: Acute (6) BRANDY (iron deficiency anemia) Current Visit: No Status: Suspected Qualifiers: Iron deficiency anemia type: chronic blood loss Qualified Code(s): D50.0 - Iron deficiency anemia secondary to blood loss (chronic) (7) Diabetes mellitus Current Visit: No Status: Chronic Qualifiers: Diabetes mellitus type: type 2 Diabetes mellitus 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 insulin use: unspecified 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 insulin use status Diabetes mellitus complication status: with kidney complications Diabetes mellitus complication detail: with chronic kidney disease Chronic kidney disease stage: on chronic dialysis Qualified Code(s): E11.22 - Type 2 diabetes mellitus with diabetic chronic kidney disease; N18.6 - End stage renal disease; Z99.2 - Dependence on renal dialysis - Time Spent With Patient Total time spent is greater than 50% in coordination of care (as documented) at patient's floor/unit and/or counseling patient: - Attending Attestation I examined this patient and my medical decision-making was reviewed with the Resident Physician on 10/25/18. I agree with the documented findings, disposition and treatment plan as described except to the extent set forth below. Ms Parks is 78 y/o female with ESRD [facility] and edema. She was being seen to follow up chest CT. She has noticed increased edema over last few days as well as dyspnea. She has chronic trach from prior resp failure. She also recently has had issue with clot on dialysis catheter and has restarted her Eliquis. She has prior hx of GI bleed from AVM. At this time her breathing is about the same but she is having pain in her R abdomen (has had before). Daughter at bedside. Exam shows mild resp distress. Lungs with significant rhonchi and rales. Abd with tenderness R side and no pe ritoneal signs. Edema to above knees bilaterally. Plan 1. Acute exac CHF, abdominal pain, chronic resp failure, chronic trach, a fib, anemia due to ESRD and chronic blood loss Agree with assessment and plan as above. Concern for pneumonia- has received abx in ED. CT chest shows no infiltrate. Chronically on prednisone - ? cause of elevated WBC. Check procalcitonin.
[2018-10-25] MEDS ORDERED: *HR* Dextrose 50 % in Water (Syg) 50 ML SYRINGE IVP PRN (18:49)
[2018-10-25] MEDS ORDERED: Dextrose Gel 15 GM/37.5 ML TUBE PO PRN ×2 (18:49)
[2018-10-25] MEDS ORDERED: D5% in Water 1,000 ML IVC PRN (18:49)
[2018-10-25] MEDS ORDERED: *HR* OxyCODONE/APAP 5/325 TABLET PO PRN (20:18)
[2018-10-25] MEDS: Budesonide/Formoterol 160/4.5 1 PUFF INH IH SCH (20:36)
[2018-10-25] MEDS: predniSONE 20 MG TABLET PO SCH (21:22)
[2018-10-25] MEDS: Insulin LISPRO 300 UNITS/3 ML VIAL SQ SCH (21:23)
[2018-10-25] MEDS: *HR* OxyCODONE/APAP 5/325 TABLET PO PRN (21:23)
[2018-10-25 23:52] LABS: Acinetobacter baumannii by PCR Not Detected (Not Detect); Candida albicans by PCR Not Detected (Not Detect); Candida glabrata by PCR Not Detected (Not Detect); Candida krusei by PCR Not Detected (Not Detect); Candida parapsilosis by PCR Not Detected (Not Detect); Candida tropicalis by PCR Not Detected (Not Detect); Enterobacter cloacae Cmplx PCR Not Detected (Not Detect); Enterobacteriaceae by PCR Not Detected (Not Detect); Enterococcus by PCR DETECTED (Not Detect); Escherichia coli by PCR Not Detected (Not Detect); Klebsiella oxytoca by PCR Not Detected (Not Detect); Klebsiella pneumoniae by PCR Not Detected (Not Detect); Proteus by PCR Not Detected (Not Detect); Pseudomonas aeruginosa by PCR Not Detected (Not Detect); Serratia marcescens by PCR Not Detected (Not Detect); Staphylococcus aureus by PCR Not Detected (Not Detect); Staphylococcus by PCR Not Detected (Not Detect); Streptococcus agalactiae(B)PCR DETECTED (Not Detect); Streptococcus by PCR DETECTED (Not Detect); Streptococcus pneumoniae PCR Not Detected (Not Detect); Streptococcus pyogenes (A) PCR Not Detected (Not Detect); blaKPC Carbapenem-Resist Gene Not Detected (Not Detect); mecA Methicillin-Resist Gene Not Detected (Not Detect); vanA/B Vancomycin-Resist Genes Not Detected (Not Detect)
--- NOTE | 2018-10-26 00:36 | Event Note ---
Date of Encounter: 10/26/18 Time of Encounter: 00:33 I was alerted by lab of critical microbiology results of blood cultures positive for enterococcus and group B strep. I ordered repeat blood cultures, Vancomycin, and Rocephin. The patient has a PCN allergy but recieved Cefepime on admission without issue and is being closely monitored on StepDown unit.
[2018-10-26 02:14] LABS: Mean Platelet Volume 9.9 fL (9.4-12.4); Red Cell Distribution Width 18.6 % (11.5-14.5)
[2018-10-26 02:16] LABS: Hematocrit 28.8 % (35.3-44.9); Hemoglobin 8.1 g/dL (11.5-15.4); Mean Corpuscular HGB Conc 28.1 g/dL (31.6-35.5); Platelet Count 335 K/mcL (140-400); Red Blood Count 3.69 M/mcL (3.82-4.97); White Blood Count 21.5 K/mcL (4.3-11.1)
[2018-10-26 02:31] LABS: Calcium 8.6 mg/dL (8.6-10.3); Potassium 3.7 mEq/L (3.5-5.1)
[2018-10-26 02:55] LABS: Hepatitis B Surface Antibody < 3.10 mIU/mL
[2018-10-26 03:06] LABS: Hepatitis B Surface Antigen Nonreactive (Nonreactive)
[2018-10-26] MEDS: *HR* OxyCODONE/APAP 5/325 TABLET PO PRN ×3 (03:28→19:31)
[2018-10-26 03:34] LABS: Hepatitis C Virus Antibody Nonreactive (Nonreactive)
[2018-10-26] MEDS ORDERED: INSULIN DEGLUDEC SQ SCH (09:00)
[2018-10-26] MEDS: Budesonide/Formoterol 160/4.5 1 PUFF INH IH SCH ×2 (10:36→22:39)
[2018-10-26] MEDS: Insulin LISPRO 300 UNITS/3 ML VIAL SQ SCH ×4 (11:08→21:24)
[2018-10-26] MEDS ORDERED: 0.9 % Sodium Chloride 1,000 ML ONE (11:25)
[2018-10-26] MEDS ORDERED: *HR* Heparin 10,000 UNIT/10 ML VIAL IV PRN (11:29)
--- NOTE | 2018-10-26 11:56 | Infectious Disease Consult ---
Infectious Disease-Consult - Encounter Date/Time Date of Encounter: 10/26/18 Time of Encounter: 11:53 - Data of Consult Patient: known to practice within the last 3 years Reason for consult: Bacteremia Consult date: 10/26/18 Requesting Physician: Jorge Salazar DO Primary Care Provider: Therese Garcia CNP - [facility] HPI: Ms. Parks is a 78 year old female with a past medical history of an stage renal disease on hemodialysis Monday, Monday, and Monday via right upper chest permacath, CHF, diabetes, chronic respiratory failure status post tracheostomy, COPD on chronic steroid use, hyperlipidemia, hypertension, MO, and breast cancer status post mastectomy. Patient was admitted to the hospital 10/25/18 for CHF exacerbation. We are consulted 10/26/18 for further workup and treatment recommendations for bacteremia. Briefly, the patient 78-year-old female with a past medical history as stated above. The patient is known to the infectious disease services were consulted on her case back in 2016 at which time the patient had acute respiratory failure and bacteremia and was transferred to [facility] or she spent about 3 months. At that time, she developed progression of her chronic kidney disease to end- stage renal disease and was started on dialysis. She also required tracheostomy. He was treated for about 3 months for aspergillosis. On the day of admission, she presented to the [facility] for follow-up on a CT of the chest for pulmonary nodules and was noted to have shortness of breath and swelling to the bilateral lower extremities. She was referred to the ER for evaluation. Upon arrival, she was afebrile hemodynamically stable. She did have leukocytosis with neutrophilic predominance. She had an elevated d-dimer of 2430. Troponin was mildly elevated at 0.04. Pro-calcitonin was positive at 11.30. Chest x-ray showed findings consistent with mild pulmonary edema slig htly increased since previous exam and findings consistent with atelectasis versus developing pneumonitis. She has CTA of the chest that was negative for PE. She also had findings concerning for pulmonary hypertension, severe emphysema, and multiple right lung nodules. There was bibasilar atelectasis versus scarring as well. Blood cultures were drawn x 2 sets. She was given vancomycin, cefepime, and Levaquin and was admitted to the hospital for further evaluation and treatment. During my exam today, the patient's daughter provides most of the information regarding the events leading up to her hospitalization. She states the patient has had progressively worsening weakness for the past couple of weeks with generalized pain. She states she developed worsening appetite over the weekend and was noted to have swelling to the BLE on Monday that progressively worsened. She denies known fevers, chills, or rigors. Denies chest pain or cough. Denies nausea, vomiting, or diarrhea. She is anuric secondary to her ESRD. She states the patient has been complaining of right abdominal pain for t he past couple of weeks. She has a perma-cath to her right chest that was replaced in September secondary to occlusion. Denies rash or oral thrush. The patient lives at home with her family. Denies tobacco, alcohol, or illicit drug use. Denies recent travel. Denies sick contacts. - ROS Review of Systems: All systems reviewed and no additional remarkable complaints except as stated. - Results CBC & Chem 7: 10/26/18 01:48 10/26/18 17:42 - Exam Vitals: Temp Pulse Resp BP Pulse Ox 97.8 F 61 16 91/37 96 10/26/18 08:30 10/26/18 07:31 10/26/18 08:30 10/26/18 11:45 10/26/18 07:31 Exam: Head: Atraumatic, normal inspection, normocephalic. Eye: EOMI, PERRLA, no scleral icterus noted. ENT: Mucous membranes moist. No odontogenic infection noted. Neck: Normal inspection, no meningismus. Tracheostomy midline. Respiratory: Clear to auscultation. No rales, respiratory distress, rhonchi, or wheezes noted. O2 via trach mask. Cardiovascular: Regular rate and rhythm, S1 and S2 audible. No murmurs, rubs, or gallops. GI: Soft, nondistended, normal bowel sounds. Generalized tenderness noted on exam, worse in the RUQ. Extremities: No joint swelling or tenderness noted. Scabbed ulcer noted to the distal aspect of the right great toe without erythema or fluctuance noted. Tenderness noted on exam. No drainage. Tenderness noted with palpation of the left ankle. Back: Normal inspection. No vertebral tenderness noted. Right flank tenderness noted. Neurological: Alert, oriented 3, no focal deficits. Psychiatric: normal affect, normal mood. Skin: Dry, intact, warm. Normal color. No rashes. Multiple superficial skin tears noted to the BUE and BLE. Multiple areas of ecchymosis noted to the BUE and BLE. Additional exam findings: Perma-cath noted to the right upper chest with transparent dressing C/D/I. No erythema, warmth, tenderness, or drainage noted. Ipratropium/Albuterol Neb [Duoneb] 3 ml IH Q6HR PRN 08/22/16 [History] Ascorbate Calcium [Vitamin C] 500 mg PO DAILY 01/31/17 [History] Atorvastatin Calcium [Lipitor] 20 mg PO HS 01/31/17 [History] Guaifenesin [Mucinex] 600 mg PO BID 01/31/17 [History] Insulin LISPRO [HumaLOG] 0 - 10 units SQ TIDAC 01/31/17 [History] LORazepam [Ativan] 0.5 mg PO TID PRN 01/31/17 [History] Albuterol Sulfate [Proventil Hfa] 2 puff IH Q6H PRN 07/06/17 [History] Darbepoetin [Aranesp] 80 mcg IV WE 07/06/17 [History] Albuterol Neb [Proventil Neb] 2.5 mg IH Q2H PRN 07/19/17 [History] Pantoprazole Sodium [Protonix] 40 mg PO BID 07/19/17 [History] Renal Vitamin [Renal Caps Softgel] 1 mg PO DAILY 07/19/17 [History] Budesonide/Formoterol 160/4.5 [Symbicort 160/4.5] 2 puff IH BIDR 03/07/18 [History] Calcitriol 0.5 mcg PO MOWEFR 03/07/18 [History] Insulin Degludec [Tresiba Flextouch U-100] 20 unit SQ DAILY 03/07/18 [History] Metoprolol [Lopressor] 12.5 mg PO BID MDD HOLD SYSTOLIC <100 PULSE<60 03/07/18 [History] Amiodarone [Cordarone] 200 mg PO DAILY 09/04/18 [History] Buspirone HCl [Buspar] 15 mg PO BID 09/04/18 [History] Lanthanum Carbonate [Fosrenol] 1,000 mg PO TIDWM 09/04/18 [History] Venlafaxine [Effexor] 37.5 mg PO DAILY 09/04/18 [History] Apixaban [Eliquis] 2.5 mg PO DAILY 10/25/18 [History] Diclofenac Sodium [Voltaren] 1 appl TP QID 10/25/18 [History] Oxycodone HCl/Acetaminophen [Percocet 5-325 mg Tablet] 1 each PO Q6-8H PRN 10/25/18 [History] Sennosides [Senna] 8.6 mg PO DAILY PRN 10/25/18 [History] predniSONE [PredniSONE] 7 mg PO DAILY 10/25/18 [History] Acetaminophen w/Cod 300-30 mg [Tylenol w/Codeine #3] 1 tab PO Q6H PRN 10/26/18 [History] Allergy/AdvReac Type Severity Reaction Status Date / Time aspirin [ASA] Allergy Swelling Verified 10/26/18 13:34 of Lip/Tongue/Throat NSAIDS (Non-Steroidal Allergy Swelling Verified 10/26/18 13:34 Anti-Inflamma of Lip/Tongue/Throat Penicillins Allergy Swelling Verified 10/26/18 13:34 of Lip/Tongue/Throat azithromycin AdvReac Fever Verified 10/26/18 13:34 iron AdvReac Unknown Verified 10/26/18 13:34 - Assessment and Plan (1) Leukocytosis Current Visit: No Status: Acute WBC 23.4 with neutrophilic predominance on admission. Likely secondary to bacteremia. Improved. Trending down. Qualifiers: Leukocytosis type: unspecified Qualified Code(s): D72.829 - Elevated white blood cell count, unspecified SNOMED Code(s): 127403424, 374049461 (2) Bacteremia Current Visit: Yes Status: Acute Causative organism: GBS and Enterococcus sp. Source: Unclear --> HD catheter vs. intra-abdominal vs. other. Blood cultures drawn 10/25/18 (peripheral) are positive 2/2 for GPC. PCR picked up Enteroccocus and GBS. Repeat blood cultures drawn 10/26/18 are pending x 2 sets. Clinically, the perma-cath does not appear infected. No cultures were drawn from the Perma-cath. The patient does have an implanted loop recorder, but no other hardware. No endocarditis stigmata noted on exam. Abdominal pain concerning for intra-abdominal source. Currently on Vancomycin and Rocephin. SNOMED Code(s): 3125304 (3) Abdominal pain Current Visit: Yes Status: Acute Location: Generalized, worse in the RUQ and flank. Etiology: Unclear. Will get CT of the abdomen and pelvis with rule out intra-abdominal infectious process. Qualifiers: Abdominal location: right upper quadrant Qualified Code(s): R10.11 - Right upper quadrant pain SNOMED Code(s): 05188527 (4) Pneumonia Current Visit: No Status: Ruled-out CT chest negative for PNA. No cough, fever, etc. Qualifiers: Pneumonia type: due to unspecified organism Laterality: bilateral Lung location: unspecified part of lung Qualified Code(s): J18.9 - Pneumonia, unspecified organism SNOMED Code(s): 658519322 (5) Acute on chronic congestive heart failure Current Visit: No Status: Chronic CXR showed mild pulmonary edema. BNP elevated at 492. Known history of CHF. TTE completed 03/2018 showed EF 55%-60%. Further workup and management per the primary team. SNOMED Code(s): 854385301, 10222244916653 (6) Lung nodules Current Visit: No Status: Acute Chronic, noted on imaging 2017. Repeat CT unchanged. SNOMED Code(s): 480417406 (7) Anemia Current Visit: No Status: Chronic Qualifiers: Anemia type: unspecified type Qualified Code(s): D64.9 - Anemia, unspecified SNOMED Code(s): 346967856 (8) History of CVA (cerebrovascular accident) Current Visit: No Status: Chronic SNOMED Code(s): 822578240 (9) ESRD (end stage renal disease) on dialysis Current Visit: No Status: Chronic HD M/W/F since 2016. Perma-cath noted without evidence of infection. Follows with Dr. Lam. [facility] consulted. SNOMED Code(s): 191779272 (10) Ductal carcinoma in situ (DCIS) of right breast Current Visit: No Status: Resolved Diagnosed in 2015. Status post mastectomy. Resolved. SNOMED Code(s): 620496190 (11) COPD (chronic obstructive pulmonary disease) Current Visit: No Status: Chronic Qualifiers: COPD type: unspecified COPD Qualified Code(s): J44.9 - Chronic obstructive pulmonary disease, unspecified SNOMED Code(s): 70744071 (12) Insulin dependent type 2 diabetes mellitus Current Visit: No Status: Chronic SNOMED Code(s): 400119555 - Recommendations Recommendations: Await blood cultures to finalize. Await repeat blood cultures. Get CT of the abdomen and pelvis with PO and IV contrast. Consider TTE. Continue Vancomycin IV. Pharmacy to dose. Goal trough ~15. Continue Rocephin 2 grams IV daily. Duration of treatment depends on the clinical picture. Monitor renal function and for drug toxicity and dose-adjust antibiotics. Past Med Surg Social Fam HX - Past Medical History Attestation: Yes The following information was validated with the patient. Source: patient, old records reviewed, nursing notes reviewed Medical history: atrial fibrillation, cancer, CHF, COPD, CVA, diabetes, dialysis, hyperlipidemia, hypertension, myocardial infarction, renal disease Additional medical history: right breast Psychiatric history: anxiety, depression - Past Surgical History Surgical History: appendectomy, breast surgery, cholecystectomy, colectomy, hysterectomy, other Additional surgical history: trach. peg tube removed - Social History Smoking Status: Former smoker Smokeless Tobacco Status: No Alcohol use: none Drug use: none Occupational status: disabled Current living situation: Home, With Family Activity Level: Wheelchair bound Recent Out of Country Travel Within the Last 8 Weeks: No Exposure or Possible Exposure to Illness During Travel: No - Family History Mother Family Member Ethnicity: Non- Living Status: Hx Family Cardiac Disorders: No Hx Family Respiratory Disorders: No Hx Family Cancer: Yes (colon) Hx Family GI Disorders: No Hx Family Endocrine Disorder: No Hx Family Neuromuscular Disorders: No Hx Family Neurologic Disorders: No Hx Family HEENT Disorders: No Hx Family Autoimmune Disorders: No Father Living Status: Hx Family Cardiac Disorders: No Hx Family Respiratory Disorders: No Hx Family Cancer: Yes Hx Family GI Disorders: Yes Hx Family Endocrine Disorder: Yes (diabetic) Hx Family Neuromuscular Disorders: No Hx Family Neurologic Disorders: No Hx Family HEENT Disorders: No Hx Family Autoimmune Disorders: No Consult Discharge Plan - Plan Referrals: Therese Garcia [facility] [Primary Care Provider] - - Attending Attestation I have personally performed a face to face evaluation on this patient. I have reviewed and agree with the care plan. History and Exam by me shows: This is an addendum to original report dictated by Dorothy Marin CNP. Please refer to Dorothy's note for full detail. I agree with Dorothy is history of present illness, review of systems and physical exam findings. I did spend over 40 minutes with the patient's 2 daughters who had everything documented regarding her issues. Patient also is having some diarrhea and had recently levofloxacin in end of August of this year given by the pulmonary doctor. Assessment and plan: 1.Bacteremia with group B streptococcus and enterococcus species source not clear from hemodialysis or intra-abdominal especially now with the diarrhea and abdominal pain especially on the right lower side 2.Abdominal pain 3.Fluid overload and chronic respiratory failure with a tracheostomy 4.End-stage renal disease on hemodialysis 5.History of breast cancer on the right status post mastectomy 6.Recent DVT in the right chest/shoulder patient started on blood thinners and since then she has had lots of bruising 7.Diarrhea watery to watery bowel movements today Recommendations If she continues to have worsening diarrhea will check C. difficile (we need at least 3 watery bowel movements in 24 hour period) Repeat blood cultures CT abdomen and pelvis pending Continue vancomycin and Rocephin for now Hopefully can stop the Rocephin soon
--- NOTE | 2018-10-26 12:46 | Internal Med Progress Note ---
Hospitalist Progress Note - Encounter Date of Encounter: 10/26/18 Time of Encounter: 08:30 - Subjective Interval History: When seen today patient was resting comfortably in her bed. She was accompanied by her daughter at bedside. She was complaining of mild abdominal discomfort which was diffuse in location. Was also complaining of mild tenderness and aches in her lower extremities. Daughter says that the swelling in her lower extremities has improved from yesterday. Patient denies any chest pain or shortness of breath. Denies any nausea or vomiting. Denies any fever. - Exam Vitals: Temp Pulse Resp BP Pulse Ox 97.8 F 61 16 91/37 96 10/26/18 08:30 10/26/18 07:31 10/26/18 08:30 10/26/18 11:45 10/26/18 07:31 Exam: GENERAL APPEARANCE: Frail, alert and cooperative, and appears to be in no acute distress. HEAD: normocephalic. EYES: vision is grossly intact. EARS: hearing grossly intact. NOSE: No nasal discharge. THROAT: Oral cavity and pharynx normal. No inflammation, swelling, exudate, or lesions. NECK: Neck supple, non-tender without lymphadenopathy, masses or thyromegaly. CARDIAC: Normal S1 and S2. No S3, S4 or murmurs. Rhythm is regular. There is no cyanosis or pallor. Extremities are warm and well perfused. Capillary refill is less than 2 seconds. No carotid bruits. LUNGS: Crackles, rhales, and wheezing b/l. ABDOMEN: Positive bowel sounds. Soft, mild tenderness with deep palpation diffusely. Mild distension. No guarding or rebound. No masses. MUSKULOSKELETAL: No joint erythema or tenderness. Normal muscular development. EXTREMITIES: No significant deformity or joint abnormality. Peripheral pulses intact. No varicosities. +1 pitting edema b/l of the LE. LOWER EXTREMITY: Examination of both feet reveals R toe bandaged from chronic pressure ulcer. Distal capillary filling of less than 2 seconds without t enderness, swelling, discoloration, nodules, weakness or deformity; examination of both ankles, knees, legs, and hips reveals normal range of motion, normal sensation without tenderness, swelling, discoloration, crepitus, weakness or deformity. SKIN: Skin shows multiple superficial vessel bleeds. No active bleeding, pus, or drainage. PSYCHIATRIC: The mental examination revealed the patient was oriented to person, place, and time. - Assessment and Plan (1) Dyspnea Current Visit: No Status: Acute Assessment and Plan: Likely secondary to CHF exacerbation. Chest x-ray showed pulmonary edema with bandlike opacity in the left lung base. Had an elevated BMP on arrival. Samina goldtes left lower extremity swelling, which has improved on today's examination. Denies any active chest pain. Patient also had elevated D dimers however CTA of the chest ruled out PE. Procalcitonin level was high. Blood cultures revealed gram positive cocci enterocaccus and Group B strep. Patient was started on Rocephin and Vancomycin. Plan: - Consult to infectious disease for bactermia treatment. - Echocardiogram to rule out endocarditis. - Strict I/O's. - Patient to resume hemodialysis Monday which will help with her fluid removal. - C/W home medications for COPD. Increase home prednisone to 20 mg by mouth daily. - Fluid restriction diet 1500 mL per day. (2) CKD (chronic kidney disease) stage V requiring chronic dialysis Current Visit: No Status: Chronic Assessment and Plan: On hemodialysis Monday schedule. Normally goes to [facility] and has been compliant with her treatments. Labs showed hypokalemia, mild hyponatremia, and creatinine level 2.54 on arrival. Plan: - C/W hemodialysis schedule. - Avoid nephrotoxins. - Renal dose medications. (3) Tracheostomy dependent Current Visit: Yes Status: Acute Assessment and Plan: On 09/06/2016, she had an extended right colectomy and lysis of adhesions.During this hospitalization she developed acute on chronic respiratory failure, acute, exacerbation of COPD, Acute on chronic kidney injury, bacteremia due to VRE, invasive pulmonary aspergillosis. 09/26/16 and subsequently had endotrachial tube placed. (4) Afib Current Visit: No Status: Chronic Assessment and Plan: Rate Controlled. Plan: - C/W amiodarone, metoprolol, and Eliquis. (5) T2DM (type 2 diabetes mellitus) Current Visit: Yes Status: Chronic Assessment and Plan: Insulin dependant. Plan: - C/W home medications. (6) Hypokalemia Current Visit: No Status: Resolved Assessment and Plan: Potassium of 3.7. Plan: - C/W HD schedule. (7) Hypertension Current Visit: No Status: Chronic Assessment and Plan: BP controlled. Plan: - C/W metoprolol. (8) COPD (chronic obstructive pulmonary disease) Current Visit: No Status: Chronic Assessment and Plan: - Resume home duonebs and albuterol. - Prednisone 20 mg PO. - O2 treatment as needed. (9) Iron deficiency anemia Current Visit: No Status: Acute Assessment and Plan: Hgb 8.1. At baseline. (10) DVT prophylaxis Current Visit: No Status: Acute Assessment and Plan: On Eliquis. - Time Spent with Patient Total time spent is greater than 50% in coordination of care (as documented) at patient's floor/unit and/or counseling patient: Internal Medicine: Result - Labs CBC & Chem 7: 10/26/18 01:48 10/26/18 01:48 Labs: Short CBC 10/25/18 10/26/18 Range/Units 12:38 01:48 WBC 23.4 H 21.5 H (4.3-11.1) K/mcL Hgb 8.7 L 8.1 L (11.5-15.4) g/dL Hct 31.7 L 28.8 L (35.3-44.9) % Plt Count 342 335 (140-400) K/mcL Neutrophils # 22.4 H (1.6-8.9) K/mcL BMP 10/25/18 10/26/18 12:38 01:48 Sodium 129 L 128 L Potassium 3.1 L 3.7 Chloride 92 L 91 L Carbon Dioxide 24 26 BUN 49 H 52 H Creatinine 2.54 H 3.25 H Glucose 151 H 148 H Calcium 8.8 8.6 Cardiac Enzymes 10/25/18 10/25/18 Range/Units 12:38 15:11 Troponin I 0.04 H* 0.04 H* (< 0.04) ng/mL Liver Function 10/25/18 Range/Units 12:38 Total Bilirubin 0.6 (0.3-1.0) mg/dL Direct Bilirubin 0.2 (0.0-0.2) mg/dL AST 11 L (13-39) Units/L ALT 11 (7-52) Units/L Alkaline Phosphatase 128 H (34-104) Units/L Albumin 2.5 L (3.5-5.7) g/dL - ABG Interpretation ABG results: PT/INR, D-dimer PT 20.1 Seconds (9.4-12.1) H 10/25/18 12:38 2430 ng/mLFEU (0-500) H 10/25/18 12:38 - Impressions Impressions Chest X-Ray 10/25/18 12:39 IMPRESSION: Mild pulmonary edema appears stable to slightly increased from prior exam. New bandlike opacity in the left lung base may represent atelectasis. Developing pneumonitis can not be excluded. D/ / Martin Mosley MD / Martin Mosley MD Interpreting Provider: Martin Mosley MD Chest CTA 10/25/18 14:59 IMPRESSION: No evidence of pulmonary embolism. Enlarged main pulmonary artery measuring 3.5 cm in diameter suggesting pulmonary hypertension. Severe emphysematous changes. Redemonstration of multiple 7 mm and smaller right lung nodules which are of uncertain etiology. Continued follow-up is advised as described below. Dense coronary artery calcifications. RECOMMENDATIONS: Fleischner Society guidelines for follow-up and management of incidentally detected pulmonary nodules: Multiple Solid Nodules: Nodule size equals 6-8 mm In a low-risk patient, CT at 3-6 months, then consider CT at 18-24 months. In a high-risk patient, CT at 3-6 months, then CT at 18-24 months. - Low risk patients include individuals with minimal or absent history of smoking and other known risk factors. - High risk patients include individuals with a history or smoking or known risk factors. Radiology 2017 http://pubs.rsna.org/doi/full/10.1148/radiol.0116186406 D/ / Hernando Geiger / Hernando Geiger Interpreting Provider: Hernando Geiger Consult Discharge Plan - Plan Referrals: Therese Garcia, [facility] [Primary Care Provider] - (1) Dyspnea Qualifiers: Qualified Code(s): R06.00 - Dyspnea, unspecified (4) Afib Qualifiers: Atrial fibrillation type: chronic Qualified Code(s): I48.2 - Chronic atrial fibrillation (5) T2DM (type 2 diabetes mellitus) Qualifiers: Chronic kidney disease stage: on chronic dialysis (7) Hypertension Qualifiers: Hypertension type: essential hypertension Qualified Code(s): I10 - Essential (primary) hypertension (8) COPD (chronic obstructive pulmonary disease) Qualifiers: COPD type: unspecified COPD Qualified Code(s): J44.9 - Chronic obstructive pulmonary disease, unspecified (9) Iron deficiency anemia Qualifiers: Iron deficiency anemia type: unspecified iron deficiency Qualified Code(s): D50.9 - Iron deficiency anemia, unspecified
[2018-10-26] MEDS: Apixaban 2.5 MG TABLET PO SCH ×2 (12:53→21:17)
[2018-10-26] MEDS: cefTRIAXone 2,000 MG in Water for inj. (sterile) 20 ML IVPB SCH (12:53)
[2018-10-26] MEDS: *HR* Amiodarone 200 MG TABLET PO SCH (12:53)
[2018-10-26] MEDS: predniSONE 20 MG TABLET PO SCH (12:53)
[2018-10-26] MEDS: Acetaminophen 325 MG TABLET PO PRN ×2 (17:25→23:47)
[2018-10-26 18:13] LABS: Albumin 2.6 g/dL (3.5-5.7); Calcium 8.6 mg/dL (8.6-10.3); Phosphorous 2.2 mg/dL (2.7-4.5)
--- NOTE | 2018-10-26 21:19 | Nephrology Progress Note ---
Date of Encounter: 10/26/18 Time of Encounter: 12:00 Subjective Interval history: Interim noted, pt seen and examined on HD with daughter at bedside Objective - Vital Signs Vital signs: Vital Signs Temp Pulse Resp BP Pulse Ox 10/26/18 20:20 98.8 F 71 18 123/72 97 10/26/18 16:50 98.9 F 72 20 133/77 96 10/26/18 12:50 98.2 F 70 14 95/61 92 10/26/18 12:18 97.9 F 16 96/54 10/26/18 12:00 105/49 10/26/18 11:45 91/37 10/26/18 11:30 92/54 10/26/18 11:15 95/49 10/26/18 11:00 85/49 10/26/18 10:45 100/65 10/26/18 10:30 98/52 10/26/18 10:15 118/54 10/26/18 10:00 156/57 10/26/18 09:45 132/108 10/26/18 09:30 87/42 10/26/18 09:15 111/89 10/26/18 09:00 132/88 10/26/18 08:45 184/70 10/26/18 08:30 97.8 F 16 201/141 10/26/18 07:31 98.0 F 61 12 89/72 96 10/26/18 03:37 98.5 F 62 18 116/72 97 10/25/18 23:16 99.2 F 56 19 123/54 98 10/25/18 22:48 15 97 Intake and Output 10/26/18 10/26/18 10/26/18 07:59 15:59 23:59 Intake Total 60 / 780 600 / 780 120 / 780 Output Total 2585 / 2585 Balance 60 / -1805 -1984 / 120 / -1805 Intake: Oral 60 / 180 120 / 180 Intake, Rinseback and Flushes 600 / 600 Output: Total Dialysis (HD) Output 2585 / 2585 Other: Meal Dinner Percent of Meal Consumed 20% Stool Size Large Stool Consistency liquid Stool Color Brown # Bowel Movement Diapers 1 Weight 73.4 kg Blood Glucose* 162 110 190 Hemodialysis Net Fluid Removed 1984 (mL) Patient Weight 10/26/18 23:59 Weight 73.4 kg - Lab 10/26/18 01:48 10/26/18 17:42 Most recent lab results 10/26/18 10/26/18 01:48 17:42 Calcium 8.6 8.6 Phosphorus 2.2 L Consult Discharge Plan - Plan Referrals: Therese Garcia, [facility] [Primary Care Provider] -
[2018-10-26] MEDS: Nystatin POWDER 30 GM BOTTLE TP SCH (21:24)
[2018-10-27] MEDS: *HR* LORazepam 0.5 MG TABLET PO PRN (00:25)
[2018-10-27 02:21] LABS: Hematocrit 29.3 % (35.3-44.9)
[2018-10-27 02:22] LABS: Hemoglobin 7.9 g/dL (11.5-15.4); Mean Corpuscular Hemoglobin 21.5 pg (28.0-33.3); Mean Corpuscular Volume 79.6 fL (83.0-100.0); Mean Platelet Volume 9.8 fL (9.4-12.4); Platelet Count 336 K/mcL (140-400); Red Blood Count 3.68 M/mcL (3.82-4.97); Red Cell Distribution Width 18.9 % (11.5-14.5); White Blood Count 17.4 K/mcL (4.3-11.1)
[2018-10-27 02:49] LABS: Calcium 8.3 mg/dL (8.6-10.3); Potassium 3.6 mEq/L (3.5-5.1)
[2018-10-27] MEDS: *HR* OxyCODONE/APAP 5/325 TABLET PO PRN ×2 (04:18→18:08)
[2018-10-27 06:17] LABS: Acinetobacter baumannii by PCR Not Detected (Not Detect); Candida albicans by PCR Not Detected (Not Detect); Candida glabrata by PCR Not Detected (Not Detect); Candida krusei by PCR Not Detected (Not Detect); Candida parapsilosis by PCR Not Detected (Not Detect); Candida tropicalis by PCR Not Detected (Not Detect); Enterobacter cloacae Cmplx PCR Not Detected (Not Detect); Enterobacteriaceae by PCR Not Detected (Not Detect); Enterococcus by PCR DETECTED (Not Detect); Escherichia coli by PCR Not Detected (Not Detect); Klebsiella oxytoca by PCR Not Detected (Not Detect); Klebsiella pneumoniae by PCR Not Detected (Not Detect); Proteus by PCR Not Detected (Not Detect); Pseudomonas aeruginosa by PCR Not Detected (Not Detect); Serratia marcescens by PCR Not Detected (Not Detect); Staphylococcus aureus by PCR Not Detected (Not Detect); Staphylococcus by PCR Not Detected (Not Detect); Streptococcus agalactiae(B)PCR DETECTED (Not Detect); Streptococcus by PCR DETECTED (Not Detect); Streptococcus pneumoniae PCR Not Detected (Not Detect); Streptococcus pyogenes (A) PCR Not Detected (Not Detect); vanA/B Vancomycin-Resist Genes Not Detected (Not Detect)
[2018-10-27] MEDS: Budesonide/Formoterol 160/4.5 1 PUFF INH IH SCH ×2 (08:08→22:20)
[2018-10-27] MEDS ORDERED: 0.9 % Sodium Chloride 250 ML IVC PRN (08:31)
[2018-10-27] MEDS ORDERED: *HR* Heparin 10,000 UNIT/10 ML VIAL IV PRN (08:31)
[2018-10-27] MEDS: Insulin LISPRO 300 UNITS/3 ML VIAL SQ SCH ×4 (09:03→22:10)
[2018-10-27] MEDS ORDERED: 0.9 % Sodium Chloride 2,000 ML ONE (09:18)
[2018-10-27] MEDS ORDERED: Albumin 25% 12.5gm/50mL 25.0 GM/100 ML IV.SOLN ONE (10:47)
[2018-10-27] MEDS ORDERED: Albumin 25% 25gram/100mL 25 GM/100 ML IV.SOLN IVPB ONE (11:05)
[2018-10-27] MEDS: *HR* Amiodarone 200 MG TABLET PO SCH (13:06)
[2018-10-27] MEDS: Apixaban 2.5 MG TABLET PO SCH ×2 (13:21→20:21)
[2018-10-27] MEDS: cefTRIAXone 2,000 MG in Water for inj. (sterile) 20 ML IVPB SCH (13:21)
[2018-10-27] MEDS: predniSONE 20 MG TABLET PO SCH (13:21)
[2018-10-27] MEDS: Nystatin POWDER 30 GM BOTTLE TP SCH ×2 (13:35→22:10)
--- NOTE | 2018-10-27 16:47 | Internal Med Progress Note ---
Hospitalist Progress Note - Encounter Date of Encounter: 10/27/18 Time of Encounter: 11:00 - Subjective Interval History: Ms Parks is currently admitted for acute bacteremia with enterococcus and group B strep. She remains moderate to high risk due to potential for worsening clinical status. Ms Parks is in dialysis at this time. Daughter is at bedside. She is concerned about skin on lower legs. Has a lesion on her toe. No fever or chills now. Ab dominal pain seems to be doing better. No diarrhea. - Exam Vitals: Temp Pulse Resp BP Pulse Ox 97.5 F L 68 18 117/48 96 10/27/18 12:30 10/27/18 07:28 10/27/18 12:30 10/27/18 12:30 10/27/18 09:28 Exam: Gen: Comfortable in bed. Head: Normocephalic EENT: Mucus membranes dry. No lesion Neck: Supple. Trach in place with trach mask Heart: Not tachycardic. Lungs: Diminished. No wheeze Abd soft. No tenderness now. Ext: Edema improving. Lesion noted on R great toe. Skin: Multiple ecchymoses. Small pustular like areas on both lower extremities. Neuro: Alert and oriented. - Assessment and Plan (1) Sepsis Current Visit: No Status: Acute Assessment and Plan: Pt has enterococcus blood stream infection as well as group B strep. On IV abx and appear to be improving. CT abd neg for abscess. Will check xray of foot to r/o osteo. (2) Acute and chronic respiratory failure ([id number]) Current Visit: No Status: Acute Assessment and Plan: Pt presented with dyspnea and evidence of pulmonary edema. Appears to be improving with dialysis. (3) COPD (chronic obstructive pulmonary disease) Current Visit: No Status: Chronic Assessment and Plan: Chronic issue. (4) Hyponatremia Current Visit: No Status: Acute Assessment and Plan: Improving with dialysis. (5) BRANDY (iron deficiency anemia) Current Visit: No Status: Suspected (6) Diabetes mellitus Current Visit: No Status: Chronic Assessment and Plan: Monitoring blood sugars and coverage. - Time Spent with Patient Total time spent is greater than 50% in coordination of care (as documented) at patient's floor/unit and/or counseling patient: Internal Medicine: Result - Labs CBC & Chem 7: 10/27/18 01:29 10/27/18 01:29 Labs: Short CBC 10/27/18 Range/Units 01:29 WBC 17.4 H (4.3-11.1) K/mcL Hgb 7.9 L (11.5-15.4) g/dL Hct 29.3 L (35.3-44.9) % Plt Count 336 (140-400) K/mcL BMP 10/26/18 10/27/18 17:42 01:29 Sodium 133 L 132 L Potassium 4.0 3.6 Chloride 93 L 94 L Carbon Dioxide 27 24 BUN 16 25 H Creatinine 1.41 H 1.77 H Glucose 225 H 340 H Calcium 8.6 8.3 L Liver Function 10/26/18 Range/Units 17:42 Albumin 2.6 L (3.5-5.7) g/dL - ABG Interpretation ABG results: PT/INR, D-dimer PT 20.1 Seconds (9.4-12.1) H 10/25/18 12:38 2430 ng/mLFEU (0-500) H 10/25/18 12:38 - Impressions Impressions Abdomen/Pelvis CT 10/26/18 11:29 IMPRESSION: 1. No acute abnormality in the abdomen or pelvis. 2. 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 Several other small areas of suspected fat necrosis in the mesentery with no progression from prior exam. 3. Chronic changes in the visualized lower chest suggesting interstitial lung disease. Underlying pulmonary edema may also be considered. D/ / Martin Mosley MD / Martin Mosley MD Interpreting Provider: Martin Mosley MD Echocardiogram 10/26/18 11:30 Impressions: LVEF 60-65%. Normal LV chamber size, wall thickness and function. Mild left ventricular diastolic dysfunction. Normal right ventricular structure and function. No evidence of pulmonary hypertension. No obvious significant valvular dysfunction. Recommend VIC if clinically indicated. Left Ventricular Wall Motion: Rest Echo Findings All wall segments showed normal motion. Findings: Study Quality * Technically sub-optimal due to poor echocardiographic windows. ECG Findings * Normal sinus rhythm. Left Ventricle * LVEF 60-65%. * Normal LV chamber size, wall thickness and function. * Mild left ventricular diastolic dysfunction. Right Ventricle * Normal right ventricular structure and function. Left Atrium * Mildly dilated left atrium. Right Atrium * Normal right atrial size. Interatrial Septum * Interatrial septum not well evaluated. Aortic Valve * Aortic valve not well visualized. * Grossly, mildly sclerotic aortic valve leaflets. * No aortic regurgitation. * No aortic stenosis. Mitral Valve * Mild mitral annular calcification. * No mitral regurgitation. * No mitral stenosis. Tricuspid Valve * Normal tricuspid valve structure and function. * Trace tricuspid regurgitation. * No evidence of pulmonary hypertension. Pulmonic Valve * Pulmonic valve not well visualized. * No pulmonic regurgitation. Aorta * Normally sized aortic root. Pericardium * The pericardium appears normal. IVC * The IVC is not well evaluated. Pulmonary Artery * Pulmonary artery not well visualized. Consult Discharge Plan - Plan Referrals: Therese Garcia CNP [Primary Care Provider] - (1) Sepsis Qualifiers: Sepsis type: Streptococcus, other Qualified Code(s): A40.8 - Other streptococcal sepsis (2) Acute and chronic respiratory failure ([id number]) Qualifiers: Respiratory failure complication: hypoxia Qualified Code(s): J96.21 - Acute and chronic respiratory failure with hypoxia (3) COPD (chronic obstructive pulmonary disease) Qualifiers: COPD type: unspecified COPD Qualified Code(s): J44.9 - Chronic obstructive pulmonary disease, unspecified (5) BRANDY (iron deficiency anemia) Qualifiers: Iron deficiency anemia type: chronic blood loss Qualified Code(s): D50.0 - Iron deficiency anemia secondary to blood loss (chronic) (6) Diabetes mellitus Qualifiers: Diabetes mellitus type: type 2 Diabetes mellitus long term acute care registered nurse insulin use: with long term acute care registered nurse use Diabetes mellitus complication status: with kidney complications Diabetes mellitus complication detail: with chronic kidney disease Chronic kidney disease stage: on chronic dialysis Qualified Code(s): E11.22 - Type 2 diabetes mellitus with diabetic chronic kidney disease; N18.6 - End stage renal disease; Z79.4 - FDC (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
[2018-10-27] MEDS ORDERED: Sennosides 8.6 MG TABLET PO PRN (17:01)
[2018-10-27] MEDS ORDERED: Albuterol 2.5 MG/3 ML NEBULIZER IH PRN (17:01)
--- NOTE | 2018-10-27 23:19 | Nephrology Progress Note ---
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 Biopsy not recommeneded at thit time but will check xray LE for calcifications. Calcium noted WNL to low and phos low. Willc heck PTH and vitamin d levels but also imperative to workup for other causes such as vasculitis etc Can also persumptively treat with sodium thiosulfate with HD with high suspicion (2) Tracheostomy dependent Current Visit: Yes Status: Acute per primary (3) Acute and chronic respiratory failure ([id number]) Current Visit: No Status: Acute per primary Qualifiers: Respiratory failure complication: hypoxia Qualified Code(s): J96.21 - Acute and chronic respiratory failure with hypoxia (4) Sepsis Current Visit: No Status: Acute Abx per primary team Qualifiers: Sepsis type: Streptococcus, other Qualified Code(s): A40.8 - Other streptococcal sepsis Subjective Interval history: Pt seen and examined with daughter at bedside s/p extra UF today which pt tolerated fairly well except for a drop in Bp requiring albumin bolus. Objective - Vital Signs Vital signs: Vital Signs Temp Pulse Resp BP Pulse Ox 10/27/18 22:21 19 95 10/27/18 20:33 98.7 F 72 18 143/61 94 10/27/18 18:37 16 94 10/27/18 17:45 73 16 90 10/27/18 16:40 98.9 F 65 17 143/67 93 10/27/18 16:00 100 10/27/18 12:30 97.5 F L 18 117/48 10/27/18 12:05 94/54 10/27/18 11:50 93/55 10/27/18 11:35 120/51 10/27/18 11:20 117/54 10/27/18 11:05 117/54 10/27/18 10:50 112/56 10/27/18 10:45 90/43 10/27/18 10:35 96/43 06/22/19 10:20 113/66 10/27/18 10:05 98.7 F 18 121/79 10/27/18 09:28 16 96 10/27/18 08:15 60 10/27/18 08:03 12 98 10/27/18 07:28 98.6 F 68 15 106/75 98 10/27/18 04:20 94 10/27/18 04:14 98.6 F 69 13 114/54 94 10/27/18 03:51 12 98 10/27/18 00:48 14 127/57 96 10/27/18 00:03 99 F 72 17 127/57 96 Intake and Output 10/27/18 10/27/18 10/27/18 07:59 15:59 23:59 Intake Total 200 / 920 720 / 920 0 / 920 Output Total 0 / 2600 2600 / 2600 0 / 2600 Balance 200 / -1680 -1880 / -1680 0 / -1680 Intake: Oral 200 / 320 120 / 320 0 / 320 Intake, Rinseback and Flushes 600 / 600 Output: Urine 0 / 0 0 / 0 0 / 0 Total Dialysis (HD) Output 2600 / 2600 Other: Meal Lunch Dinner Percent of Meal Consumed 85% 5% Stool Size Large Stool Consistency loose Stool Color Brown Weight 73.2 kg 73.2 kg Blood Glucose* 316 288 293 Hemodialysis Net Fluid Removed 2000 (mL) Patient Weight 10/27/18 23:59 Weight 73.2 kg - General Appearance General appearance: Present: chronically ill (+trach), frail EENT: Present: ATNC, mucous membranes moist Neck: Present: no JVD, supple Respiratory: Present: course breath sounds Cardiology: Present: edema (decerased LE bilat), normal S1, normal S2 Dialysis Vascular Access: Venous Catheter (permcath) Gastrointestinal: Present: no tenderness, no guarding Integumentary: Present: ecchymotic (LE bilat with some blisters and raised lesions) Neurologic: Present: no focal deficit Musculoskeletal: Present: no deformities Psychiatric: Present: cooperative - Lab 10/27/18 01:29 10/27/18 01:29 Consult Discharge Plan - Plan Referrals: Jose,Therese Mccormick CNP [Primary Care Provider] -
[2018-10-28] MEDS: *HR* OxyCODONE/APAP 5/325 TABLET PO PRN ×4 (00:09→23:02)
[2018-10-28 03:11] LABS: Hemoglobin 7.8 g/dL (11.5-15.4)
[2018-10-28 03:12] LABS: Hematocrit 28.4 % (35.3-44.9); Mean Corpuscular HGB Conc 27.5 g/dL (31.6-35.5); Mean Corpuscular Hemoglobin 21.8 pg (28.0-33.3); Mean Corpuscular Volume 79.6 fL (83.0-100.0); Platelet Count 324 K/mcL (140-400); Red Blood Count 3.57 M/mcL (3.82-4.97); Red Cell Distribution Width 18.6 % (11.5-14.5); White Blood Count 12.2 K/mcL (4.3-11.1)
[2018-10-28 03:29] LABS: Complement C3 117 mg/dL (87-200)
[2018-10-28 03:30] LABS: Calcium 8.6 mg/dL (8.6-10.3); Potassium 3.8 mEq/L (3.5-5.1)
--- NOTE | 2018-10-28 08:03 | Internal Med Progress Note ---
Hospitalist Progress Note - Encounter Date of Encounter: 10/28/18 Time of Encounter: 09:30 - Subjective Interval History: Ms Parks is currently admitted for bactermia and resp failure/fluid overload. She remains moderate to high risk due to potential for worsening clinical status. Ms Parks is doing OK. She is sleepy due to pain med this morning. Area on legs seems to be blistering more. She says there is pain. No fever or chills now. Blood cx remain positive. Daughter is at bedside. - Exam Vitals: Temp Pulse Resp BP Pulse Ox 98.7 F 64 17 129/93 100 10/28/18 07:06 10/28/18 07:06 10/28/18 07:06 10/28/18 07:06 10/28/18 07:06 Exam: Gen: Comfortable in bed. Sleepy but arousable. Head: Normocephalic EENT: Mucus membranes dry. No lesion Neck: Supple. Trach in place with trach mask Heart: Not tachycardic. Regular at this time. Lungs: Diminished. No wheeze Abd soft. No tenderness now. Ext: Edema improving. Skin: Multiple ecchymoses. Continued pustular/blister lesions on both anterior tibial regions. Neuro: Alert and oriented. - Assessment and Plan (1) Sepsis Current Visit: No Status: Acute Assessment and Plan: Pt has persistent enterococcal bacteremia on IV abx. Persistent positive on second blood cx set. Repeat blood cx today. (2) Acute and chronic respiratory failure ([id number]) Current Visit: No Status: Acute Assessment and Plan: Pt presented with dyspnea and evidence of pulmonary edema. Seems to be doing better with extra ultrafiltration. (3) COPD (chronic obstructive pulmonary disease) Current Visit: No Status: Chronic Assessment and Plan: Chronic issue. (4) Hyponatremia Current Visit: No Status: Acute Assessment and Plan: Sodium up and down at baseline. (5) BRANDY (iron deficiency anemia) Current Visit: No Status: Suspected Assessment and Plan: H/H stable at this time. Will defer to nephrology in terms of transfusion. (6) Diabetes mellitus Current Visit: No Status: Chronic Assessment and Plan: Remains uncontrolled. Will adjust meds today. (7) Calciphylaxis Current Visit: Yes Status: Suspected Assessment and Plan: Pt has lesions on both her lower extremities. To receive treatment in dialysis. Supportive wound care. - Time Spent with Patient Total time spent is greater than 50% in coordination of care (as documented) at patient's floor/unit and/or counseling patient: Internal Medicine: Result - Labs CBC & Chem 7: 10/28/18 02:46 10/28/18 02:46 Labs: Short CBC 10/28/18 Range/Units 02:46 WBC 12.2 H (4.3-11.1) K/mcL Hgb 7.8 L (11.5-15.4) g/dL Hct 28.4 L (35.3-44.9) % Plt Count 324 (140-400) K/mcL BMP 10/28/18 02:46 Sodium 130 L Potassium 3.8 Chloride 93 L Carbon Dioxide 24 BUN 39 H Creatinine 3.20 H Glucose 303 H Calcium 8.6 - ABG Interpretation ABG results: PT/INR, D-dimer PT 20.1 Seconds (9.4-12.1) H 10/25/18 12:38 2430 ng/mLFEU (0-500) H 10/25/18 12:38 - Impressions Impressions Echocardiogram 10/26/18 11:30 Impressions: LVEF 60-65%. Normal LV chamber size, wall thickness and function. Mild left ventricular diastolic dysfunction. Normal right ventricular structure and function. No evidence of pulmonary hypertension. No obvious significant valvular dysfunction. Recommend VIC if clinically indicated. Left Ventricular Wall Motion: Rest Echo Findings All wall segments showed normal motion. Findings: Study Quality * Technically sub-optimal due to poor echocardiographic windows. ECG Findings * Normal sinus rhythm. Left Ventricle * LVEF 60-65%. * Normal LV chamber size, wall thickness and function. * Mild left ventricular diastolic dysfunction. Right Ventricle * Normal right ventricular structure and function. Left Atrium * Mildly dilated left atrium. Right Atrium * Normal right atrial size. Interatrial Septum * Interatrial septum not well evaluated. Aortic Valve * Aortic valve not well visualized. * Grossly, mildly sclerotic aortic valve leaflets. * No aortic regurgitation. * No aortic stenosis. Mitral Valve * Mild mitral annular calcification. * No mitral regurgitation. * No mitral stenosis. Tricuspid Valve * Normal tricuspid valve structure and function. * Trace tricuspid regurgitation. * No evidence of pulmonary hypertension. Pulmonic Valve * Pulmonic valve not well visualized. * No pulmonic regurgitation. Aorta * Normally sized aortic root. Pericardium * The pericardium appears normal. IVC * The IVC is not well evaluated. Pulmonary Artery * Pulmonary artery not well visualized. Foot X-Ray 10/27/18 17:00 IMPRESSION: No radiographic evidence of osteomyelitis. D/ / Jose Manuel Chavez MD / Jose Manuel Chavez MD Interpreting Provider: Jose Manuel Chavez MD Consult Discharge Plan - Plan Referrals: Therese Garcia [employer] PAVING MACHINE OPERATOR [Primary Care Provider] - (1) Sepsis Qualifiers: Sepsis type: Streptococcus, other Qualified Code(s): A40.8 - Other streptococcal sepsis (2) Acute and chronic respiratory failure ([id number]) Qualifiers: Respiratory failure complication: hypoxia Qualified Code(s): J96.21 - Acute and chronic respiratory failure with hypoxia (3) COPD (chronic obstructive pulmonary disease) Qualifiers: COPD type: unspecified COPD Qualified Code(s): J44.9 - Chronic obstructive pulmonary disease, unspecified (5) BRANDY (iron deficiency anemia) Qualifiers: Iron deficiency anemia type: chronic blood loss Qualified Code(s): D50.0 - Iron deficiency anemia secondary to blood loss (chronic) (6) Diabetes mellitus Qualifiers: Diabetes mellitus type: type 2 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
[2018-10-28] MEDS: Budesonide/Formoterol 160/4.5 1 PUFF INH IH SCH ×2 (08:33→21:41)
[2018-10-28] MEDS: Renal Vitamin 1 CAP CAPSULE PO SCH (09:10)
[2018-10-28] MEDS: *HR* Amiodarone 200 MG TABLET PO SCH (09:10)
[2018-10-28] MEDS: predniSONE 20 MG TABLET PO SCH (09:12)
[2018-10-28] MEDS: Nystatin POWDER 30 GM BOTTLE TP SCH ×2 (09:12→20:24)
[2018-10-28] MEDS: Apixaban 2.5 MG TABLET PO SCH ×2 (09:12→20:23)
[2018-10-28] MEDS: cefTRIAXone 2,000 MG in Water for inj. (sterile) 20 ML IVPB SCH (09:13)
[2018-10-28] MEDS: Insulin LISPRO 300 UNITS/3 ML VIAL SQ SCH ×4 (09:14→23:02)
--- NOTE | 2018-10-28 17:52 | Nephrology Progress Note ---
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 Biopsy not recommeneded at this time but will check xray LE for calcifications. Calcium noted WNL to low and phos low. PTH actually on the low side for ESRD and vitamin d level low but also imperative to workup for other causes such as vasculitis etc Can presumptively treat with sodium thiosulfate with HD with high suspicion (2) Tracheostomy dependent Current Visit: Yes Status: Acute per primary (3) Acute and chronic respiratory failure ([id number]) Current Visit: No Status: Acute per primary Qualifiers: Respiratory failure complication: hypoxia Qualified Code(s): J96.21 - Acute and chronic respiratory failure with hypoxia (4) Sepsis Current Visit: No Status: Acute Abx per primary team Qualifiers: Sepsis type: Streptococcus, other Qualified Code(s): A40.8 - Other streptococcal sepsis Subjective Interval history: Pt seen and examined with daughter at bedside s/p extra UF yesterday. Pt reports some LE pain with more blisters and pustular lesions noted suspicious for early stage calciphylaxis. Objective - Vital Signs Vital signs: Vital Signs Temp Pulse Resp BP Pulse Ox 10/28/18 16:52 20 94 10/28/18 16:48 98.7 F 70 16 161/80 92 10/28/18 11:18 98.4 F 71 17 148/64 96 10/28/18 08:34 16 100 10/28/18 07:06 98.7 F 64 17 129/93 100 10/28/18 03:55 22 100 10/28/18 02:46 98.5 F 60 16 136/59 100 10/28/18 00:24 13 100 10/28/18 00:00 98.6 F 67 16 131/67 95 10/27/18 22:21 19 95 10/27/18 20:33 98.7 F 72 18 143/61 94 10/27/18 18:37 16 94 Intake and Output 10/28/18 10/28/18 10/28/18 07:59 15:59 23:59 Intake Total 480 / 480 Balance 480 / 480 Intake: Oral 480 / 480 Other: Meal Lunch Percent of Meal Consumed 35% Stool Size Large Stool Consistency loose Stool Color Brown # Bowel Movements 1 Weight 70.9 kg Blood Glucose* 329 303 208 Patient Weight 10/28/18 23:59 Weight 70.9 kg - General Appearance General appearance: Present: chronically ill, frail (+trach) EENT: Present: ATNC, mucous membranes moist Neck: Present: no JVD, supple Respiratory: Present: course breath sounds Cardiology: Present: edema (Improved LE bilat), normal S1, normal S2 Dialysis Vascular Access: Venous Catheter (permcath) Gastrointestinal: Present: no tenderness, no guarding Integumentary: Present: warm and dry, ecchymotic (blisters with pus noted LE bilat) Neurologic: Present: no focal deficit Musculoskeletal: Present: no deformities Psychiatric: Present: mood/affect appropriate - Lab 10/28/18 02:46 10/28/18 02:46 Consult Discharge Plan - Plan Referrals: Therese Garcia J2EE SOFTWARE ENGINEER [Primary Care Provider] -
[2018-10-29 05:40] LABS: Hematocrit 29.4 % (35.3-44.9); Hemoglobin 8.2 g/dL (11.5-15.4); Mean Corpuscular HGB Conc 27.9 g/dL (31.6-35.5); Mean Corpuscular Hemoglobin 22.2 pg (28.0-33.3); Mean Corpuscular Volume 79.7 fL (83.0-100.0); Mean Platelet Volume 10.4 fL (9.4-12.4); Platelet Count 383 K/mcL (140-400); Red Blood Count 3.69 M/mcL (3.82-4.97); White Blood Count 10.9 K/mcL (4.3-11.1)
[2018-10-29] MEDS: Acetaminophen 325 MG TABLET PO PRN (05:55)
[2018-10-29 05:58] LABS: Calcium 8.5 mg/dL (8.6-10.3); Potassium 4.2 mEq/L (3.5-5.1)
[2018-10-29] MEDS: Insulin LISPRO 300 UNITS/3 ML VIAL SQ SCH ×4 (07:49→21:41)
[2018-10-29] MEDS ORDERED: *HR* Heparin 10,000 UNIT/10 ML VIAL IV PRN (08:43)
[2018-10-29] MEDS ORDERED: 0.9 % Sodium Chloride 250 ML IVC PRN (08:43)
[2018-10-29] MEDS: Budesonide/Formoterol 160/4.5 1 PUFF INH IH SCH ×2 (10:40→23:04)
[2018-10-29] MEDS: Insulin DETEMIR 100 UNIT/ML X5UNITS SQ SCH (12:34)
[2018-10-29] MEDS: Renal Vitamin 1 CAP CAPSULE PO SCH (12:56)
[2018-10-29] MEDS: predniSONE 20 MG TABLET PO SCH (12:56)
[2018-10-29] MEDS: *HR* Amiodarone 200 MG TABLET PO SCH (12:57)
[2018-10-29] MEDS: Apixaban 2.5 MG TABLET PO SCH ×2 (12:57→21:39)
[2018-10-29] MEDS: *HR* OxyCODONE/APAP 5/325 TABLET PO PRN ×2 (13:07→19:45)
[2018-10-29] MEDS: cefTRIAXone 2,000 MG in Water for inj. (sterile) 20 ML IVPB SCH (13:08)
--- NOTE | 2018-10-29 13:34 | Internal Med Progress Note ---
Hospitalist Progress Note - Encounter Date of Encounter: 10/29/18 Time of Encounter: 08:10 - Subjective Interval History: When seen today patient was resting comfortably in her bed during her dialysis treatment. She denied any fever, chest pain, cough, or shortness of breath. She still admitting to some intermittent chronic back pain as well as intermi ttent mild abdominal tenderness. Says the swelling in her lower extremities has significantly improved. Denies any nausea or vomiting. - Exam Vitals: Temp Pulse Resp BP Pulse Ox 98.5 F 74 16 120/69 95 10/29/18 12:34 10/29/18 12:34 10/29/18 12:34 10/29/18 12:34 10/29/18 12:34 Exam: GENERAL APPEARANCE: Frail, alert and cooperative, and appears to be in no acute distress. HEAD: normocephalic. EYES: vision is grossly intact. EARS: hearing grossly intact. NOSE: No nasal discharge. THROAT: Oral cavity and pharynx normal. No inflammation, swelling, exudate, or lesions. NECK: Neck supple, non-tender without lymphadenopathy, masses or thyromegaly. CARDIAC: Normal S1 and S2. No S3, S4 or murmurs. Rhythm is regular. There is no cyanosis or pallor. Extremities are warm and well perfused. Capillary refill is less than 2 seconds. No carotid bruits. LUNGS: Crackles, rhales, and wheezing b/l. ABDOMEN: Positive bowel sounds. Soft, mild tenderness with deep palpation diffusely. Mild distension. No guarding or rebound. No masses. MUSKULOSKELETAL: No joint erythema or tenderness. Normal muscular development. EXTREMITIES: No significant deformity or joint abnormality. Peripheral pulses intact. No varicosities. No pitting edema of the LE b/l. LOWER EXTREMITY: Examination of both feet reveals R toe bandaged from chronic pressure ulcer. Distal capillary filling of less than 2 seconds without t enderness, swelling, discoloration, nodules, weakness or deformity; examination of both ankles, knees, legs, and hips reveals normal range of motion, normal sensation without tenderness, swelling, discoloration, crepitus, weakness or deformity. SKIN: Skin shows multiple superficial vessel bleeds. No active bleeding, pus, or drainage. PSYCHIATRIC: The mental examination revealed the patient was oriented to person, place, and time. - Assessment and Plan (1) Dyspnea Current Visit: No Status: Acute Assessment and Plan: Likely secondary to CHF exacerbation and sepsis. Chest x-ray showed pulmonary edema with bandlike opacity in the left lung base. Had an elevated BMP on arri malvin. Demonstrates left lower extremity swelling, which has improved. Denies any active chest pain. Patient also had elevated D dimers however CTA of the chest ruled out PE. Procalcitonin level was high. Blood cultures revealed gram positive cocci enterocaccus and Group B strep. Patient was started on Rocephin and Vancomycin. Infectious disease was consulted. Recommended continuing with current antibiotic treatment. Echocardiogram showed no significant vavlular dysfunction. Repeat blood cultures from 10/28 continued to show gram positive cocci. Plan: - Consult to infectious disease for bactermia treatment. - Echocardiogram to rule out endocarditis. - Strict I/O's. - C/W hemodialysis Monday which will help with her fluid removal. - C/W home medications for COPD: prednisone to 20 mg by mouth daily. - Fluid restriction diet 1500 mL per day. (2) Bacteremia Current Visit: Yes Status: Acute Assessment and Plan: Persistent enterococcal bacteremia. Source is unclear at the moment: HD catheter vs. intra-abdominal vs. other. Perma-cath does not appear infected. Abdominal CT did not reveal an abscess. Patient was c/o swelling/tenderness in R ankle. X-ray did not reveal any evidence of osteomyelitis. Echocardiogram revealed no valvular dysfunction. Plan: - C/W rocephin and vancomycin day #4. - Repeat blood cultures. - X-ray of L-ankle since patient c/o pain and swelling on presentation there. (3) CKD (chronic kidney disease) stage V requiring chronic dialysis Current Visit: No Status: Chronic Assessment and Plan: On hemodialysis Monday schedule. Normally goes to [facility] and has been compliant with her treatments. Labs showed hypokalem ia, mild hyponatremia, and creatinine level 2.54 on arrival. Plan: - C/W hemodialysis schedule. - Avoid nephrotoxins. - Renal dose medications. 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 Biopsy not recommeneded at this time. Confirmed with x-ray of LE. Plan: - Nephrology recommends sodium thiosulfate with HD. (5) Tracheostomy dependent Current Visit: Yes Status: Acute Assessment and Plan: On 09/06/2016, she had an extended right colectomy and lysis of adhesions.During this hospitalization she developed acute on chronic respiratory failure, acute, exacerbation of COPD, Acute on chronic kidney injury, bacteremia due to VRE, invasive pulmonary aspergillosis. 09/26/16 and subsequently had endotrachial tube placed. (6) Afib Current Visit: No Status: Chronic Assessment and Plan: Rate Controlled. Plan: - C/W amiodarone, metoprolol, and Eliquis. (7) T2DM (type 2 diabetes mellitus) Current Visit: Yes Status: Chronic Assessment and Plan: nsulin dependant. Blood glucose levels have been in the 200-400 range in the last few days (today at 373). Plan: - Start 20 U Levemir SQ qAM. - Increase insulin correction dose to medium scale. (8) Hypertension Current Visit: No Status: Chronic Assessment and Plan: BP controlled. Plan: - C/W metoprolol. (9) COPD (chronic obstructive pulmonary disease) Current Visit: No Status: Chronic Assessment and Plan: - C/W home duonebs and albuterol. - Prednisone 20 mg PO. - O2 treatment as needed. (10) Iron deficiency anemia Current Visit: No Status: Acute Assessment and Plan: Hgb 8.2. At baseline. (11) DVT prophylaxis Current Visit: No Status: Acute Assessment and Plan: On Eliquis. - Time Spent with Patient Total time spent is greater than 50% in coordination of care (as documented) at patient's floor/unit and/or counseling patient: Internal Medicine: Result - Labs CBC & Chem 7: 10/29/18 05:28 10/29/18 05:28 Labs: Short CBC 10/29/18 Range/Units 05:28 WBC 10.9 (4.3-11.1) K/mcL Hgb 8.2 L (11.5-15.4) g/dL Hct 29.4 L (35.3-44.9) % Plt Count 383 (140-400) K/mcL BMP 10/29/18 05:28 Sodium 128 L Potassium 4.2 Chloride 89 L Carbon Dioxide 21 L BUN 53 H Creatinine 4.51 H Glucose 373 H Calcium 8.5 L - ABG Interpretation ABG results: PT/INR, D-dimer PT 20.1 Seconds (9.4-12.1) H 10/25/18 12:38 2430 ng/mLFEU (0-500) H 10/25/18 12:38 - Impressions Impressions Femur X-Ray 10/28/18 11:45 IMPRESSION: 1. Atherosclerotic vascular calcifications. Small phleboliths in the pelvis. No other significant soft tissue calcification. 2. No acute osseous abnormality. D/ / Toby Fung MD / Toby Fung MD Interpreting Provider: Toby Fung MD Femur X-Ray 10/28/18 11:47 IMPRESSION: 1. Atherosclerotic vascular calcifications. Small phleboliths in the pelvis. No other significant soft tissue calcification. 2. No acute osseous abnormality. D/ / Toby Fung MD / Toby Fung MD Interpreting Provider: Toby Fung MD Knee X-Ray 10/28/18 11:47 IMPRESSION: 1. Atherosclerotic vascular calcifications. Small phleboliths in the pelvis. No other significant soft tissue calcification. 2. No acute osseous abnormality. D/ / Toby Fung MD / Toby Fung MD Interpreting Provider: Toby Fung MD Tibia/Fibula X-Ray 10/28/18 11:47 IMPRESSION: 1. Atherosclerotic vascular calcifications. Small phleboliths in the pelvis. No other significant soft tissue calcification. 2. No acute osseous abnormality. D/ / Toby Fung MD / Toby Fung MD Interpreting Provider: Toby Fung MD Tibia/Fibula X-Ray 10/28/18 11:47 IMPRESSION: 1. Atherosclerotic vascular calcifications. Small phleboliths in the pelvis. No other significant soft tissue calcification. 2. No acute osseous abnormality. D/ / Toby Fung MD / Toby Fung MD Interpreting Provider: Toby Fung MD Consult Discharge Plan - Plan Referrals: Therese Garcia CNP [Primary Care Provider] - (sent web request on 10-29-18 @ [facility] Office called back and Therese Garcia does home visits with this patient) (1) Dyspnea Qualifiers: Qualified Code(s): R06.00 - Dyspnea, unspecified (6) Afib Qualifiers: Atrial fibrillation type: chronic Qualified Code(s): I48.2 - Chronic atrial fibrillation (7) T2DM (type 2 diabetes mellitus) Qualifiers: Chronic kidney disease stage: on chronic dialysis (8) Hypertension Qualifiers: Hypertension type: essential hypertension Qualified Code(s): I10 - Essential (primary) hypertension (9) COPD (chronic obstructive pulmonary disease) Qualifiers: COPD type: unspecified COPD Qualified Code(s): J44.9 - Chronic obstructive pulmonary disease, unspecified (10) Iron deficiency anemia Qualifiers: Iron deficiency anemia type: unspecified iron deficiency Qualified Code(s): D50.9 - Iron deficiency anemia, unspecified
--- NOTE | 2018-10-29 16:22 | Infectious Disease Progress No ---
ID Progress Note Date of Encounter: 10/29/18 Time of Encounter: 13:20 - Subjective Subjective: Patient seen and examined. No acute events noted overnight. Patient states she feels "terrible.". She denies any acute complaints. She denies fevers, chills, rigors. States shortness of breath and cough are at baseline. Denies abdominal pain. She is anuric secondary to her end-stage renal disease. Complains of pain to the bilateral lower extremities. Per the patient's daughter, she has developed new blisterlike lesions to the bilateral lower extremities. - Objective CBC & Chem 7: 10/30/18 05:44 10/30/18 05:44 - Exam Vitals: Temp Pulse Resp BP Pulse Ox 99.0 F 59 15 122/62 97 10/29/18 16:12 10/29/18 16:12 10/29/18 16:12 10/29/18 16:12 10/29/18 16:12 Exam: Head: Atraumatic, normal inspection, normocephalic. Eye: EOMI, PERRLA, no scleral icterus noted. ENT: Mucous membranes moist. No odontogenic infection noted. Neck: Normal inspection, no meningismus. Tracheostomy midline. Respiratory: Clear to auscultation. No rales, respiratory distress, rhonchi, or wheezes noted. O2 via trach mask. Cardiovascular: Regular rate and rhythm, S1 and S2 audible. No murmurs, rubs, or gallops. GI: Soft, nondistended, normal bowel sounds. Generalized tenderness noted on exam, worse in the RUQ. Extremities: No joint swelling or tenderness noted. Scabbed ulcer noted to the distal aspect of the right great toe without erythema or fluctuance noted. Tenderness noted on exam. No drainage. Tenderness noted with palpation of the left ankle. Back: Normal inspection. No vertebral tenderness noted. Right flank tenderness noted. Neurological: Alert, oriented 3, no focal deficits. Psychiatric: normal affect, normal mood. Skin: Dry, intact, warm. Normal color. No rashes. Multiple superficial skin tears noted to the BUE and BLE. Multiple areas of ecchymosis noted to the BUE and BLE. Blisterlike lesions noted to the left lateral lower leg/ankle with surrounding erythema. Warm to touch. Tender on exam. Additional blisterlike lesions noted to the anterior medial aspect of the right lower leg. Additional exam findings: Perma-cath noted to the right upper chest with transparent dressing C/D/I. No erythema, warmth, tenderness, or drainage noted. - Assessment and Plan (1) Leukocytosis Current Visit: No Status: Acute WBC 23.4 with neutrophilic predominance on admission. Likely secondary to bacteremia. Resolved. Qualifiers: Leukocytosis type: unspecified Qualified Code(s): D72.829 - Elevated white blood cell count, unspecified SNOMED Code(s): 119744498, 354723443 (2) Bacteremia Current Visit: Yes Status: Acute Causative organism: GBS and Enterococcus sp. Source: Unclear --> HD catheter vs. intra-abdominal vs. other. Blood cultures drawn 10/25/18 (peripheral) are positive 2/2 for Enteroccocus and GBS. Repeat blood cultures drawn 10/26/18 are positive x 2 sets. Blood cultures from 10/28/18 for also positive 2 sets. Clinically, the perma-cath does not appear infected. No cultures were drawn from the Perma-cath. The patient does have an implanted loop recorder, but no other hardware. No endocarditis stigmata noted on exam. Abdominal pain concerning for intra-abdominal source, but CT of the abdomen and pelvis was negative. TTE was negative for valvular vegetations. Currently on Vancomycin and Rocephin. SNOMED Code(s): 9225925 (3) Abdominal pain Current Visit: Yes Status: Acute Location: Generalized, worse in the RUQ and flank. Etiology: Unclear. CT of the abdomen and pelvis negative for acute abnormality. LFTs were normal. We will check amylase and lipase. Qualifiers: Abdominal location: right upper quadrant Qualified Code(s): R10.11 - Right upper quadrant pain SNOMED Code(s): 84121703 (4) Pneumonia Current Visit: No Status: Ruled-out CT chest negative for PNA. No cough, fever, etc. Qualifiers: Pneumonia type: due to unspecified organism Laterality: bilateral Lung location: unspecified part of lung Qualified Code(s): J18.9 - Pneumonia, unspecified organism SNOMED Code(s): 485851609 (5) Acute on chronic congestive heart failure Current Visit: No Status: Chronic CXR showed mild pulmonary edema. BNP elevated at 492. Known history of CHF. TTE completed 03/2018 showed EF 55%-60%. Repeat TTE showed an EF of 60-65%. Further workup and management per the primary team. SNOMED Code(s): 104925913, 47359380426072 (6) Lung nodules Current Visit: No Status: Acute Chronic, noted on imaging 2017. Repeat CT unchanged. SNOMED Code(s): 633421811 (7) Anemia Current Visit: No Status: Chronic Qualifiers: Anemia type: unspecified type Qualified Code(s): D64.9 - Anemia, unspecified SNOMED Code(s): 042839720 (8) History of CVA (cerebrovascular accident) Current Visit: No Status: Chronic SNOMED Code(s): 497933781 (9) ESRD (end stage renal disease) on dialysis Current Visit: No Status: Chronic HD M/W/F since 2016. Perma-cath noted without evidence of infection. Follows with Dr. Lam. Nicole Nephrology consulted. 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 Status post mastectomy. Resolved. SNOMED Code(s): 219889549 (11) COPD (chronic obstructive pulmonary disease) Current Visit: No Status: Chronic Qualifiers: COPD type: unspecified COPD Qualified Code(s): J44.9 - Chronic obstructive pulmonary disease, unspecified SNOMED Code(s): 83731215 (12) Insulin dependent type 2 diabetes mellitus Current Visit: No Status: Chronic SNOMED Code(s): 171193680 (13) Blister of leg Current Visit: Yes Status: Acute Location: Bilateral lower extremities. Bullous lesions noted to the bilateral lower extremities with what appears to be purulent drainage noted inside the blisters. Etiology: Unclear. 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 X-rays negative for calcifications. Get cultures of the fluid if one of the blisters opens. Consider podiatry to evaluate. SNOMED Code(s): 008892277, 026176628, 660983538 - Recommendations Recommendations: Repeat blood cultures 2 sets. Await blood cultures to finalize. Consider podiatry to evaluate. Get cultures of the fluid if one of the blisters opened. ESRD per the nephrology team. Continue Vancomycin IV. Pharmacy to dose. Goal trough ~15. Discontinue Rocephin. Duration of treatment depends on the clinical picture. Monitor renal function and for drug toxicity and dose-adjust antibiotics. Consult Discharge Plan - Plan Referrals: Therese Garcia CNP [Primary Care Provider] - 11/06/18 3:15 pm (sent web request on 10-29-18 @ [facility] Office called back and Therese Garcia does home visits with this patient) - Attending Attestation I have personally performed a face to face evaluation on this patient. I have reviewed and agree with the care plan. History and Exam by me shows: Assessment and plan: 1.Bacteremia with group B streptococcus and enterococcus species source not clear from hemodialysis or intra-abdominal especially now with the diarrhea and abdominal pain especially on the right lower side 2.Abdominal pain 3.Fluid overload and chronic respiratory failure with a tracheostomy 4.End-stage renal disease on hemodialysis 5.History of breast cancer on the right status post mastectomy 6.Recent DVT in the right chest/shoulder patient started on blood thinners and since then she has had lots of bruising 7.Diarrhea watery to watery bowel movements today Recommendations Repeat blood cultures CT abdomen and pelvis reviewed Continue vancomycin d/c rocephin dialysis cath needs to be removed, we feel that's the culprit d/w family at bedside
[2018-10-29] MEDS: Nystatin POWDER 30 GM BOTTLE TP SCH ×2 (16:26→21:41)
[2018-10-29] MEDS ORDERED: Vancomycin 500 MG in 0.9 % Sodium Chloride Mini Bag 100 ML IVPB ONE (17:00)
--- NOTE | 2018-10-29 17:48 | Nephrology Progress Note ---
Date of Encounter: 10/29/18 Time of Encounter: 12:00 - Assessment and Plan (1) ESRD (end stage renal disease) on dialysis Current Visit: No Status: Chronic (2) Tracheostomy dependent Current Visit: Yes Status: Acute (3) Acute and chronic respiratory failure ([id number]) Current Visit: No Status: Acute Qualifiers: Respiratory failure complication: hypoxia Qualified Code(s): J96.21 - Acute and chronic respiratory failure with hypoxia (4) Sepsis Current Visit: No Status: Acute Qualifiers: Sepsis type: Streptococcus, other Qualified Code(s): A40.8 - Other streptococcal sepsis Subjective Interval history: Pt seen and examined with daughter at bedside on HD doing well. No new comp laints Objective - Vital Signs Vital signs: Vital Signs Temp Pulse Resp BP Pulse Ox 10/29/18 16:12 99.0 F 59 15 122/62 97 10/29/18 15:40 13 120/69 97 10/29/18 14:44 24 120/69 96 10/29/18 12:34 98.5 F 74 16 120/69 95 10/29/18 12:30 98.9 F 18 119/53 10/29/18 12:00 109/46 10/29/18 11:45 99/69 10/29/18 11:30 109/51 10/29/18 11:15 102/62 10/29/18 11:00 106/57 10/29/18 10:45 98/57 10/29/18 10:30 109/67 10/29/18 10:15 99/52 10/29/18 10:00 99/53 10/29/18 09:45 118/72 10/29/18 09:30 125/45 10/29/18 09:15 113/66 10/29/18 09:00 99.1 F 18 125/66 10/29/18 07:09 98.5 F 69 13 164/91 99 10/29/18 04:08 99.2 F 65 17 144/60 100 10/29/18 00:16 98.9 F 72 18 123/59 96 10/29/18 00:15 15 95 10/28/18 21:42 17 97 10/28/18 19:24 98.9 F 73 18 134/67 98 Intake and Output 10/29/18 10/29/18 10/29/18 07:59 15:59 23:59 Intake Total 0 / 920 920 / 920 Output Total 0 / 2600 2600 / 2600 Balance 0 / -1680 -1680 / -1680 Intake: Oral 0 / 320 320 / 320 Intake, Rinseback and Flushes 600 / 600 Output: Urine 0 / 0 0 / 0 Total Dialysis (HD) Output 2600 / 2600 Other: Meal Lunch Percent of Meal Consumed 50% Stool Size Moderate Stool Consistency soft Stool Color Brown # Bowel Movements 1 Weight 70.9 kg Blood Glucose* 395 114 206 Hemodialysis Net Fluid Removed 2000 (mL) Patient Weight 10/29/18 23:59 Weight 70.9 kg - Lab 10/29/18 05:28 10/29/18 05:28 Most recent lab results 10/29/18 05:28 Calcium 8.5 L Consult Discharge Plan - Plan Referrals: Therese Garcia TECH[employer]ICAL SOLUTIONS DIRECTOR [Primary Care Provider] - (sent web request on 10-29-18 @ [facility] Office called back and Therese Garcia does home visits with this patient)
[2018-10-29] MEDS: Ipratropium/Albuterol Neb 3 ML IH SCH ×2 (18:29→23:04)
[2018-10-29 19:11] LABS: Albumin 2.9 g/dL (3.5-5.7); Calcium 8.4 mg/dL (8.6-10.3); Phosphorous 2.4 mg/dL (2.7-4.5); Potassium 4.1 mEq/L (3.5-5.1)
[2018-10-29] MEDS: *HR* LORazepam 0.5 MG TABLET PO PRN (21:38)
[2018-10-30] MEDS: *HR* OxyCODONE/APAP 5/325 TABLET PO PRN (03:38)
[2018-10-30] MEDS: Ipratropium/Albuterol Neb 3 ML IH SCH ×4 (04:19→22:10)
[2018-10-30 06:17] LABS: Hemoglobin 8.7 g/dL (11.5-15.4); Mean Corpuscular HGB Conc 27.2 g/dL (31.6-35.5); Mean Corpuscular Hemoglobin 21.6 pg (28.0-33.3); Mean Corpuscular Volume 79.4 fL (83.0-100.0); Mean Platelet Volume 10.7 fL (9.4-12.4); Platelet Count 360 K/mcL (140-400); Red Blood Count 4.03 M/mcL (3.82-4.97); Red Cell Distribution Width 18.9 % (11.5-14.5); White Blood Count 16.1 K/mcL (4.3-11.1)
[2018-10-30 06:32] LABS: Calcium 8.7 mg/dL (8.6-10.3); Potassium 4.3 mEq/L (3.5-5.1)
[2018-10-30] MEDS: Apixaban 2.5 MG TABLET PO SCH ×2 (08:57→21:04)
[2018-10-30] MEDS: *HR* Amiodarone 200 MG TABLET PO SCH (08:57)
[2018-10-30] MEDS: predniSONE 20 MG TABLET PO SCH (08:58)
[2018-10-30] MEDS: Renal Vitamin 1 CAP CAPSULE PO SCH (08:58)
[2018-10-30] MEDS: Acetaminophen 325 MG TABLET PO PRN (08:59)
[2018-10-30] MEDS: Insulin DETEMIR 100 UNIT/ML X5UNITS SQ SCH (09:00)
[2018-10-30] MEDS: Insulin LISPRO 300 UNITS/3 ML VIAL SQ SCH ×4 (09:00→21:12)
[2018-10-30] MEDS: Nystatin POWDER 30 GM BOTTLE TP SCH ×2 (09:05→21:14)
--- NOTE | 2018-10-30 09:59 | Infectious Disease Progress No ---
ID Progress Note Date of Encounter: 10/30/18 Time of Encounter: 09:05 - Subjective Subjective: Patient seen and examined with daughter at bedside. No acute events noted overnight. Patient states she feels better today. She denies fevers, chills, rigors. States shortness of breath and cough are at baseline. Complains of right sided abdominal pain that she states feels like a pulled muscle. She is anuric secondary to her end-stage renal disease. Complains of pain to the bilateral lower extremities. - Objective CBC & Chem 7: 10/30/18 05:44 10/30/18 05:44 - Exam Vitals: Temp Pulse Resp BP Pulse Ox 98.8 F 75 20 120/73 92 10/30/18 07:25 10/30/18 07:25 10/30/18 07:25 10/30/18 07:25 10/30/18 07:42 Exam: Head: Atraumatic, normal inspection, normocephalic. Eye: EOMI, PERRLA, no scleral icterus noted. ENT: Mucous membranes moist. No odontogenic infection noted. Neck: Normal inspection, no meningismus. Tracheostomy midline. Respiratory: Clear to auscultation. No rales, respiratory distress, rhonchi, or wheezes noted. O2 via trach mask. Cardiovascular: Regular rate and rhythm, S1 and S2 audible. No murmurs, rubs, or gallops. GI: Soft, nondistended, normal bowel sounds. Generalized tenderness noted on exam, worse in the RUQand RLQ. Extremities: No joint swelling or tenderness noted. Scabbed ulcer noted to the distal aspect of the right great toe without erythema or fluctuance noted. No drainage. Neurological: Alert, oriented 3, no focal deficits. Psychiatric: normal affect, normal mood. Skin: Dry, intact, warm. Normal color. Multiple superficial skin tears noted to the BUE and BLE. Multiple areas of ecchymosis noted to the BUE and BLE. Blisterlike lesions noted to the left lateral lower leg/ankle with surrounding erythema. Warm to touch. Tender on exam. Additional blisterlike lesions noted to the anterior medial aspect of the right lower leg. Additional exam findings: Perma-cath noted to the right upper chest with transparent dressing C/D/I. No erythema, warmth, tenderness, or drainage noted. - Assessment and Plan (1) Leukocytosis Current Visit: No Status: Acute WBC 23.4 with neutrophilic predominance on admission. Likely secondary to bacteremia. Resolved yesterday, but back up today. Qualifiers: Leukocytosis type: unspecified Qualified Code(s): D72.829 - Elevated white blood cell count, unspecified SNOMED Code(s): 123652947, 312046151 (2) Bacteremia Current Visit: Yes Status: Acute Causative organism: GBS and Enterococcus sp. Source: Unclear --> HD catheter vs. intra-abdominal vs. other. Blood cultures drawn 10/25/18 (peripheral) are positive 2/2 for Enteroccocus and GBS. Repeat blood cultures drawn 10/26/18 are positive x 2 sets. Blood cultures from 10/28/18 for also positive 2 sets. Blood cultures drawn 10/30/18 are pending x 2 sets. Clinically, the perma-cath does not appear infected, but high index of suspicion that this is the source and/or seeded given the persistent bacteremia without additional source identified. No cultures were drawn from the Perma-cath. The patient does have an implanted loop recorder, but no other hardware. No endocarditis stigmata noted on exam. Abdominal pain concerning for intra-abdominal source, but CT of the abdomen and pelvis was negative. TTE was negative for valvular vegetations. Will discuss line removal with the primary and nephrology teams. Currently on Vancomycin and Rocephin. SNOMED Code(s): 6527796 (3) Abdominal pain Current Visit: Yes Status: Acute Location: Generalized, worse in the RUQ, RLQ, and flank. Etiology: Unclear. CT of the abdomen and pelvis negative for acute abnormality, but was done without contrast. LFTs were normal. Amylase and lipase normal. Qualifiers: Abdominal location: right upper quadrant Qualified Code(s): R10.11 - Right upper quadrant pain SNOMED Code(s): 11820874 (4) Acute on chronic congestive heart failure Current Visit: No Status: Chronic CXR showed mild pulmonary edema. BNP elevated at 492. Known history of CHF. TTE completed 03/2018 showed EF 55%-60%. Repeat TTE showed an EF of 60-65%. Further workup and management per the primary team. SNOMED Code(s): 501595337, 84514560205305 (5) Lung nodules Current Visit: No Status: Acute Chronic, noted on imaging 2017. Repeat CT unchanged. SNOMED Code(s): 068066151 (6) Anemia Current Visit: No Status: Chronic Qualifiers: Anemia type: unspecified type Qualified Code(s): D64.9 - Anemia, unspecified SNOMED Code(s): 275481169 (7) History of CVA (cerebrovascular accident) Current Visit: No Status: Chronic SNOMED Code(s): 867059927 (8) ESRD (end stage renal disease) on dialysis Current Visit: No Status: Chronic HD M/W/F since 2017. Perma-cath noted without evidence of infection. Follows with Dr. Lam. [facility]phrology consulted. SNOMED Code(s): 473165576 (9) COPD (chronic obstructive pulmonary disease) Current Visit: No Status: Chronic Qualifiers: COPD type: unspecified COPD Qualified Code(s): J44.9 - Chronic obstructive pulmonary disease, unspecified SNOMED Code(s): 06245073 (10) Insulin dependent type 2 diabetes mellitus Current Visit: No Status: Chronic SNOMED Code(s): 041748712 (11) Blister of leg Current Visit: Yes Status: Acute Location: Bilateral lower extremities. Bullous lesions noted to the bilateral lower extremities with what appears to be purulent drainage noted inside the blisters. Etiology: Unclear. 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 X-rays negative for calcifications. Get cultures of the fluid if one of the blisters opens. Consider podiatry to evaluate. SNOMED Code(s): 803522477, 587364575, 924547267 - Recommendations Recommendations: Await blood cultures to finalize. Consider podiatry to evaluate. Get cultures of the fluid if one of the blisters opened. ESRD per the nephrology team. Consider removal of the Perma-cath after next HD session with line holiday to follow. Will ask pharmacy to do a Vanc lock until dialysis catheter is removed. Continue Vancomycin IV. Pharmacy to dose. Goal trough ~15. Duration of treatment depends on the clinical picture. Monitor renal function and for drug toxicity and dose-adjust antibiotics. Consult Discharge Plan - Plan Referrals: Therese Garcia CNP [Primary Care Provider] - 11/06/18 3:15 pm (sent web request on 10-29-18 @ [facility] Office called back and Therese Garcia does home visits with this patient)
[2018-10-30 10:40] LABS: Acinetobacter baumannii by PCR Not Detected (Not Detect); Candida albicans by PCR Not Detected (Not Detect); Candida glabrata by PCR Not Detected (Not Detect); Candida krusei by PCR Not Detected (Not Detect); Candida parapsilosis by PCR Not Detected (Not Detect); Candida tropicalis by PCR Not Detected (Not Detect); Enterobacter cloacae Cmplx PCR Not Detected (Not Detect); Enterobacteriaceae by PCR Not Detected (Not Detect); Enterococcus by PCR DETECTED (Not Detect); Escherichia coli by PCR Not Detected (Not Detect); Klebsiella oxytoca by PCR Not Detected (Not Detect); Klebsiella pneumoniae by PCR Not Detected (Not Detect); Proteus by PCR Not Detected (Not Detect); Pseudomonas aeruginosa by PCR Not Detected (Not Detect); Serratia marcescens by PCR Not Detected (Not Detect); Staphylococcus aureus by PCR Not Detected (Not Detect); Staphylococcus by PCR Not Detected (Not Detect); Streptococcus agalactiae(B)PCR Not Detected (Not Detect); Streptococcus by PCR Not Detected (Not Detect); Streptococcus pneumoniae PCR Not Detected (Not Detect); Streptococcus pyogenes (A) PCR Not Detected (Not Detect); vanA/B Vancomycin-Resist Genes Not Detected (Not Detect)
[2018-10-30] MEDS: Budesonide/Formoterol 160/4.5 1 PUFF INH IH SCH ×2 (11:37→22:10)
--- NOTE | 2018-10-30 13:06 | Internal Med Progress Note ---
Hospitalist Progress Note - Encounter Date of Encounter: 10/30/18 Time of Encounter: 08:40 - Subjective Interval History: When seen today patient was resting comfortably in her bed. At the time she said she was not having any shortness of breath, chest pain, nausea, or vomiting. Denied any fever. Admitted to some minor abdominal discomfort. Also admitted to some tenderness in her lower extremities bilaterally. About an hour later I was notified by nursing staff that patient had her O2 saturation dropped to 82% and then stabilized at 87%. Upon reevaluation of the patient, she said that she was having some shortness of breath however that seemed to be stabilizing by the time I saw her. - Exam Vitals: Temp Pulse Resp BP Pulse Ox 97.8 F 59 20 124/57 95 10/30/18 11:28 10/30/18 11:28 10/30/18 11:28 10/30/18 11:28 10/30/18 11:28 Exam: GENERAL APPEARANCE: Frail, alert and cooperative, and appears to be in no acute distress. HEAD: normocephalic. EYES: vision is grossly intact. EARS: hearing grossly intact. NOSE: No nasal discharge. THROAT: Oral cavity and pharynx normal. No inflammation, swelling, exudate, or lesions. NECK: Neck supple, non-tender without lymphadenopathy, masses or thyromegaly. CARDIAC: Normal S1 and S2. No S3, S4 or murmurs. Rhythm is regular. There is no cyanosis or pallor. Extremities are warm and well perfused. Capillary refill is less than 2 seconds. No carotid bruits. LUNGS: Crackles, rhales, and wheezing b/l. ABDOMEN: Positive bowel sounds. Soft, mild tenderness with deep palpation diffusely. Mild distension. No guarding or rebound. No masses. MUSKULOSKELETAL: No joint erythema or tenderness. Normal muscular development. EXTREMITIES: No significant deformity or joint abnormality. Peripheral pulses intact. No varicosities. No pitting edema of the LE b/l. LOWER EXTREMITY: Examination of both feet reveals R toe bandaged from chronic pressure ulcer. Distal capillary filling of less than 2 seconds without tenderness, swelling, discoloration, nodules, weakness or deformity; examination of both ankles, knees, legs, and hips reveals normal range of motion, normal sensation without tenderness, swelling, discoloration, crepitus, weakness or deformity. SKIN: Skin shows multiple superficial vessel bleeds. 1-2 cm pockets of pustular lesions in her LE b/l. No active bleeding. PSYCHIATRIC: The mental examination revealed the patient was oriented to person, place, and time. - Assessment and Plan (1) Dyspnea Current Visit: No Status: Acute Assessment and Plan: Likely secondary to CHF exacerbation and sepsis. Chest x-ray showed pulmonary edema with bandlike opacity in the left lung base. Had an elevated BMP on arrival. Demonstrates left lower extremity swelling, which has improved. Denies any active chest pain. Patient also had elevated D dimers however CTA of the chest ruled out PE. Procalcitonin level was high. Blood cultures revealed gram positive cocci enterocaccus and Group B strep. Patient was started on Rocephin and Vancomycin. Infectious disease was consulted. Recommended continuing with current antibiotic treatment. Echocardiogram showed no significant vavlular dysfunction. Repeat blood cultures from 10/28 continued to show gram positive cocci. 10/30/18: Patient had an O2 desaturation to 82%, which then stabilized to 87%. On exam, there was increased crackles on the L side. A CXR was ordered an revealed small L pleural effusion with adjacent atelectasis which was slightly increased compared to the prior exam. Patient's O2 saturation has increased back to 98% in the afternoon. Plan: - Patient to receive HD treatment tomorrow. Will reassess tomorrow to see if enough fluid was pulled out during treatment, otherwise patient will need a consult to IR for thoracentesis of the L side. - ID consulted. Recommending permacath line removal. - F/U with amylase and lipase labs to r/o pancreatitis. - C/W Vancomycin and Rocephin. - Strict I/O's. - C/W hemodialysis Monday which will help with her fluid removal. - C/W home medications for COPD: prednisone to 20 mg by mouth daily. - Fluid restriction diet 1500 mL per day. (2) Bacteremia Current Visit: Yes Status: Acute Assessment and Plan: Persistent enterococcal bacteremia. Source is unclear at the moment: HD catheter vs. intra-abdominal vs. other. Perma-cath does not appear infected. Abdominal CT did not reveal an abscess. Patient was c/o swelling/tenderness in R ankle. X-ray did not reveal any evidence of osteomyelitis. Echocardiogram revealed no valvular dysfunction. X-ray of the L ankle as well did not reveal any signs of osteomyelitis. WBC count today increased from 10.9 to 16.1. Patient is afebrile. Plan: - C/W rocephin and vancomycin day #5. - Repeat blood cultures pending. (3) CKD (chronic kidney disease) stage V requiring chronic dialysis Current Visit: No Status: Chronic Assessment and Plan: On hemodialysis Monday schedule. Normally goes to [facility] and has been compliant with her treatments. Labs showed hypokalemia, mild hyponatremia, and creatinine level 2.54 on arrival. Plan: - C/W hemodialysis schedule. - Avoid nephrotoxins. - Renal dose medications. 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 Biopsy not recommeneded at this time. Confirmed with x-ray of LE. Plan: - Nephrology recommends sodium thiosulfate with HD. (5) Tracheostomy dependent Current Visit: Yes Status: Acute Assessment and Plan: On 09/06/2016, she had an extended right colectomy and lysis of adhesions.During this hospitalization she developed acute on chronic respiratory failure, acute, exacerbation of COPD, Acute on chronic kidney injury, bacteremia due to VRE, invasive pulmonary aspergillosis. 09/26/16 and subsequently had endotrachial tube placed. 10/30/18: Informed by patient's daughter that she is overdue for a tracheostomy tube replacement by 1 week. Informed respiratory therapy that will be handling the replacement. (6) Afib Current Visit: No Status: Chronic Assessment and Plan: Rate Controlled. Plan: - C/W amiodarone, metoprolol, and Eliquis. (7) T2DM (type 2 diabetes mellitus) Current Visit: Yes Status: Chronic Assessment and Plan: Insulin dependant. Blood glucose levels have been in the 200-400 range in the last few days. Improved from yesterday (at 229 today). Plan: - C/W 20 U Levemir SQ qAM. - C/W insulin correction dose medium scale. (8) Pustular lesion Current Visit: Yes Status: Acute Assessment and Plan: Pustular lesions in LE. Intact without eruption. Plan: - Consult to podiatry to possible culture of lesions. - C/W wound care. (9) Hypertension Current Visit: No Status: Chronic Assessment and Plan: BP controlled. Plan: - C/W metoprolol. (10) COPD (chronic obstructive pulmonary disease) Current Visit: No Status: Chronic Assessment and Plan: - C/W home duonebs and albuterol. - Prednisone 20 mg PO. - O2 treatment as needed. (11) Iron deficiency anemia Current Visit: No Status: Acute Assessment and Plan: Hgb 8.7. At baseline. (12) DVT prophylaxis Current Visit: No Status: Acute Assessment and Plan: On Eliquis. - Time Spent with Patient Total time spent is greater than 50% in coordination of care (as documented) at patient's floor/unit and/or counseling patient: Internal Medicine: Result - Labs CBC & Chem 7: 10/30/18 05:44 10/30/18 05:44 Labs: Short CBC 10/30/18 Range/Units 05:44 WBC 16.1 H (4.3-11.1) K/mcL Hgb 8.7 L (11.5-15.4) g/dL Hct 32.0 L (35.3-44.9) % Plt Count 360 (140-400) K/mcL BMP 10/29/18 10/30/18 17:51 05:44 Sodium 136 142 Potassium 4.1 4.3 Chloride 97 L 94 L Carbon Dioxide 29 20 L BUN 16 24 H Creatinine 2.04 H 2.74 H Glucose 203 H 229 H Calcium 8.4 L 8.7 Liver Function 10/29/18 Range/Units 17:51 Albumin 2.9 L (3.5-5.7) g/dL - ABG Interpretation ABG results: PT/INR, D-dimer PT 20.1 Seconds (9.4-12.1) H 10/25/18 12:38 2430 ng/mLFEU (0-500) H 10/25/18 12:38 - Impressions Impressions Ankle X-Ray 10/29/18 11:11 IMPRESSION: No radiographic evidence of osteomyelitis. D/ / 10/29/2018 18:30:35 Antonio Ventura MD / jens Interpreting Provider: Antonio Ventura MD Chest X-Ray 10/30/18 09:35 IMPRESSION: Small left pleural effusion with adjacent atelectasis slightly increased when compared to the prior exam. D/ / Christine Cam MD / Christine Cma MD Interpreting Provider: Christine Cam MD Consult Discharge Plan - Plan Referrals: Therese Garcia CNP [Primary Care Provider] - 11/06/18 3:15 pm (sent web request on 10-29-18 @ [facility] Office called back and Therese Garcia does home visits with this patient) (1) Dyspnea Qualifiers: Qualified Code(s): R06.00 - Dyspnea, unspecified (6) Afib Qualifiers: Atrial fibrillation type: chronic Qualified Code(s): I48.2 - Chronic atrial fibrillation (7) T2DM (type 2 diabetes mellitus) Qualifiers: Chronic kidney disease stage: on chronic dialysis (9) Hypertension Qualifiers: Hypertension type: essential hypertension Qualified Code(s): I10 - Essential (primary) hypertension (10) COPD (chronic obstructive pulmonary disease) Qualifiers: COPD type: unspecified COPD Qualified Code(s): J44.9 - Chronic obstructive pulmonary disease, unspecified (11) Iron deficiency anemia Qualifiers: Iron deficiency anemia type: unspecified iron deficiency Qualified Code(s): D50.9 - Iron deficiency anemia, unspecified
--- NOTE | 2018-10-30 13:51 | Podiatry Consult Note ---
Date of Encounter: 10/30/18 Time of Encounter: 13:42 Assessment and Plan (1) Pustular lesion Current visit: Yes Status: Acute Assessment: BLE yellow-milky filled bullae with erythema noted to surrouding tissue WBC 16.1, elevated from yesterday, no documented fevers Bacteremic, blood cultures positive for group b strep and enterococcus Purpura noted to BLE, attributed to steroid use Xrays negative for OM, atherosclerosis noted on xray Plan: High suspicion for calciphylaxis, discussed with functional consultant Marked erythema, will continue to monitor if extends past demarcation line Informed consent obtained, Painted bullae with betadine x 3 to BLE, Blunt fill needle placed into bullae, cultures obtained, drained Cultures obtained at bedside, anaerobic and wound cultures sent to lab per nursing staff Covered bullae with xeroform gauze, 4x4 dry gauze, kerlix, and JOHNATHAN bandage (2) Calciphylaxis Current visit: Yes 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 Sharp surgical excisional debridement of all hyperkeratotic tissue right great toe with #15 scalpel blade reveals ulceration measuring 1 cm x 1 cm x 0.1 cm. Fibrinous tissue noted. no undermining or tunneling noted. No cellulitis or lymphangitis noted. no purulent drainage or abscess noted. Wound thoroughly irrigated with sterile saline. Dry sterile dressing applied with Alginate. Covered with gauze and kerlix. History of Present Illness Chief complaint: BLE bullae HPI: Ms. Parks is a 78 year old female who presented to the ER on , 10/25 for worsening shortness of breath and bilateral lower extremity edema, patient consulted to podiatry on 10/30/18 for bilateral lower bullae. Patient has PMH of ESRD with MWF dialysis, CHF, DM II, COPD with trach, HLD, HTN, TN, and breast c ancer s/p mastectomy. Patient is known to the podiatry group, follows with Dr. Garrido and Kerline TOMPKINS. Patient has tracheostomy, family at bedside and providing history. Briefly, patient was admitted 10/25 for exacerbation CHF. Family states prior to coming to the hospital they were seen at the cancer center for follow-up appointment of imaging for evaluation of metastasis of breast cancer, stating they began to notice patient's left ankle was red and puffy at that time. Reports on Monday they began to notice fluid/edema and petechiae to left lower extremity and patient complained of pain and tenderness of left ankle at that time. States on began to notice blisters forming to bilateral lower extremities. Reports Monday during dialysis fluid in blisters became purulent in nature. Reports since admission they have been placing Bactroban ointment to bilateral bullae. Again, Ms. Parks is a 78-year-old female who is consulted to podiatry for bilateral lower extremity bullae as well as right great toe eschar. On 10/27 and 10/28 patient had bilateral tib-fib x-ray, left ankle x-ray, and right foot x-ray for bilateral bullae and to rule out OM. X-rays not suspicious for osteomyelitis, no acute osseous abnormality noted. Denies any fevers, chills, nausea, vomiting, or diarrhea. Denies any calf pain, chest pain, or shortness of breath. Patient with yellow milky fluid filled bullae to bilateral lower extremities with erythema noted to surrounding tissue. Area marked. Reports multiple areas of purpura to bilateral lower extremities, she attributes this to steroid usage. No other questions or concerns at this time Past Med Surg Social Fam HX - Past Medical History Medical history: atrial fibrillation, cancer, CHF, COPD, CVA, diabetes, dialysis, hyperlipidemia, hypertension, myocardial infarction, renal disease Additional medical history: right breast Psychiatric history: anxiety, depression - Past Surgical History Surgical History: appendectomy, breast surgery, cholecystectomy, colectomy, hysterectomy, other Additional surgical history: trach. peg tube removed - Social History Smoking Status: Former smoker Smokeless Tobacco Status: No Alcohol use: none Drug use: none - Family History Mother Family Member Ethnicity: Non- Living Status: Hx Family Cardiac Disorders: No Hx Family Respiratory Disorders: No Hx Family Cancer: Yes (colon) Hx Family GI Disorders: No Hx Family Endocrine Disorder: No Hx Family Neuromuscular Disorders: No Hx Family Neurologic Disorders: No Hx Family HEENT Disorders: No Hx Family Autoimmune Disorders: No Father Living Status: Hx Family Cardiac Disorders: No Hx Family Respiratory Disorders: No Hx Family Cancer: Yes Hx Family GI Disorders: Yes Hx Family Endocrine Disorder: Yes (diabetic) Hx Family Neuromuscular Disorders: No Hx Family Neurologic Disorders: No Hx Family HEENT Disorders: No Hx Family Autoimmune Disorders: No Medications and Allergies Ipratropium/Albuterol Neb [Duoneb] 3 ml IH Q6HR PRN 08/22/16 [History] Ascorbate Calcium [Vitamin C] 500 mg PO DAILY 01/31/17 [History] Atorvastatin Calcium [Lipitor] 20 mg PO HS 01/31/17 [History] Guaifenesin [Mucinex] 600 mg PO BID 01/31/17 [History] Insulin LISPRO [HumaLOG] 0 - 10 units SQ TIDAC 01/31/17 [History] LORazepam [Ativan] 0.5 mg PO TID PRN 01/31/17 [History] Albuterol Sulfate [Proventil Hfa] 2 puff IH Q6H PRN 07/06/17 [History] Darbepoetin [Aranesp] 80 mcg IV WE 07/06/17 [History] Albuterol Neb [Proventil Neb] 2.5 mg IH Q2H PRN 07/19/17 [History] Pantoprazole Sodium [Protonix] 40 mg PO BID 07/19/17 [History] Renal Vitamin [Renal Caps Softgel] 1 mg PO DAILY 07/19/17 [History] Budesonide/Formoterol 160/4.5 [Symbicort 160/4.5] 2 puff IH BIDR 03/07/18 [History] Calcitriol 0.5 mcg PO MOWEFR 03/07/18 [History] Insulin Degludec [Tresiba Flextouch U-100] 20 unit SQ DAILY 03/07/18 [History] Metoprolol [Lopressor] 12.5 mg PO BID MDD HOLD SYSTOLIC <100 PULSE<60 03/07/18 [History] Amiodarone [Cordarone] 200 mg PO DAILY 09/04/18 [History] Buspirone HCl [Buspar] 15 mg PO BID 09/04/18 [History] Lanthanum Carbonate [Fosrenol] 1,000 mg PO TIDWM 09/04/18 [History] Venlafaxine [Effexor] 37.5 mg PO DAILY 09/04/18 [History] Apixaban [Eliquis] 2.5 mg PO DAILY 10/25/18 [History] Diclofenac Sodium [Voltaren] 1 appl TP QID 10/25/18 [History] Oxycodone HCl/Acetaminophen [Percocet 5-325 mg Tablet] 1 each PO Q6-8H PRN 10/25/18 [History] Sennosides [Senna] 8.6 mg PO DAILY PRN 10/25/18 [History] predniSONE [PredniSONE] 7 mg PO DAILY 10/25/18 [History] Acetaminophen w/Cod 300-30 mg [Tylenol w/Codeine #3] 1 tab PO Q6H PRN 10/26/18 [ History] Allergy/AdvReac Type Severity Reaction Status Date / Time aspirin [ASA] Allergy Swelling Verified 10/26/18 13:34 of Lip/Tongue/Throat NSAIDS (Non-Steroidal Allergy Swelling Verified 10/26/18 13:34 Anti-Inflamma of Lip/Tongue/Throat Penicillins Allergy Swelling Verified 10/26/18 13:34 of Lip/Tongue/Throat azithromycin AdvReac Fever Verified 10/26/18 13:34 iron AdvReac Unknown Verified 10/26/18 13:34 ROS unobtainable: other (Patient with tracheostomy tube) All Systems Reviewed: The remainder of the systems were reviewed and are negative - Constitutional Constitutional: no fever(s) - Cardiovascular Cardiovascular: leg edema, pedal edema, no chest pain - Respiratory Respiratory: cough, dyspnea - Musculoskeletal Musculoskeletal: numbness Physical Exam - Constitutional Vitals: Temp Pulse Resp BP Pulse Ox 97.8 F 66 20 124/57 98 10/30/18 11:28 10/30/18 12:30 10/30/18 11:28 10/30/18 11:28 10/30/18 12:59 Exam: Constitiutional: Alert. Unable to assess orientation. Shakes head yes or no. No acute distress noted Vascular: 3/4 DP/PT bilaterally, CFT <3 sec to all digits, warm to warm from tibia to toes bilaterally, no calf pain with squeeze BLE Neurologic: Diminished sensation to touch, normal plantar response, foot drop to right foot noted Dermatologic: Eschar noted to DIPJ right great toe, minimal erythema noted to periwound area, Yellow-milky fluid filled bullae noted to BLE with varicosities and erythema noted surrounding bullae, purpura noted to BLE Musculoskeletal: 3/5 muscle strength and normal tone bilaterally. Results - Labs Result Diagrams: 10/30/18 05:44 10/30/18 05:44 Labs: Abnormal lab results WBC 16.1 K/mcL (4.3-11.1) H 10/30/18 05:44 RBC 3.69 M/mcL (3.82-4.97) L 10/29/18 05:28 Hgb 8.7 g/dL (11.5-15.4) L 10/30/18 05:44 Hct 32.0 % (35.3-44.9) L 10/30/18 05:44 MCV 79.4 fL (83.0-100.0) L 10/30/18 05:44 MCH 21.6 pg (28.0-33.3) L 10/30/18 05:44 MCHC 27.2 g/dL (31.6-35.5) L 10/30/18 05:44 RDW 18.9 % (11.5-14.5) H 10/30/18 05:44 22.4 K/mcL (1.6-8.9) H 10/25/18 12:38 0.4 K/mcL (0.6-4.6) L 10/25/18 12:38 Present (Not Present) A 10/25/18 12:38 1+ (Not Present) A 10/25/18 12:38 PT 20.1 Seconds (9.4-12.1) H 10/25/18 12:38 2430 ng/mLFEU (0-500) H 10/25/18 12:38 VBG pCO2 36 mmHg (41-51) L 10/25/18 14:11 VBG pO2 92 mmHg (25-50) H 10/25/18 14:11 Sodium 128 mEq/L (136-145) L 10/29/18 05:28 Potassium 3.1 mEq/L (3.5-5.1) L 10/25/18 12:38 Chloride 94 mEq/L (98-107) L 10/30/18 05:44 Carbon Dioxide 20 mEq/L (23-29) L 10/30/18 05:44 BUN 24 mg/dL (8-23) H 10/30/18 05:44 2.74 mg/dL (0.60-1.20) H 10/30/18 05:44 Est GFR ( Amer) 20 (> 60) L 10/30/18 05:44 Est GFR (Non-Af Amer) 17 (> 60) L 10/30/18 05:44 Glucose 229 mg/dL (70-105) H 10/30/18 05:44 POC Glucose 114 mg/dL (70-99) H 10/29/18 12:34 305 (280-300) H 10/30/18 05:44 Calcium 8.4 mg/dL (8.6-10.3) L 10/29/18 17:51 Phosphorus 2.4 mg/dL (2.7-4.5) L 10/29/18 17:51 AST 11 Units/L (13-39) L 10/25/18 12:38 128 Units/L (34-104) H 10/25/18 12:38 < 10 Units/L (30-223) L 10/25/18 12:38 0.04 ng/mL (< 0.04) H* 10/25/18 15:11 B-Natriuretic Peptide 492 pg/mL (Less than 100) H 10/25/18 12:38 2.9 g/dL (3.5-5.7) L 10/29/18 17:51 4.0 g/dL (2.4-3.5) H 10/25/18 12:38 0.6 (1.1-2.2) L 10/25/18 12:38 Amylase 26 Units/L (29-103) L 10/30/18 05:44 25-OH Vitamin D Total 25 ng/mL (30-80) L 10/28/18 02:46 11.30 ng/mL (0.00-0.15) H 10/25/18 18:27 PTH Intact 118.9 pg/ml (10.0-65.0) H 10/28/18 02:46 Vancomycin Trough 19 mcg/mL (5-10) H 10/30/18 05:44 Enterococcus sp PCR DETECTED (Not Detect) A 10/28/18 16:48 Hep Bs Antibody < 3.10 mIU/mL (10.00-) L 10/26/18 01:48 Streptococcus sp PCR DETECTED (Not Detect) A 10/26/18 01:48 Group B Strep (PCR) DETECTED (Not Detect) A 10/26/18 01:48 H & H 10/30/18 Range/Units 05:44 Hgb 8.7 L (11.5-15.4) g/dL Hct 32.0 L (35.3-44.9) % All other labs normal. - Diagnostic results Ankle/Foot x-ray: report reviewed Consult Discharge Plan - Plan Referrals: Therese Garcia CNP [Primary Care Provider] - 11/06/18 3:15 pm (sent web request on 10-29-18 @ 1038 Office called back and Therese Garcia does home visits with this patient)
[2018-10-30] MEDS ORDERED: HEPARIN IVP SCH (14:00)
[2018-10-30] MEDS ORDERED: VANCOMYCIN IVP SCH (14:00)
[2018-10-30] MEDS: *HR* Acetaminophen w/Cod 300-30 mg 1 TAB TABLET PO PRN ×2 (15:54→21:07)
--- NOTE | 2018-10-30 22:44 | Nephrology Progress Note ---
Date of Encounter: 10/30/18 Time of Encounter: 12:00 - Assessment and Plan (1) ESRD (end stage renal disease) on dialysis Current Visit: No Status: Chronic Nex HD planned tomorrow Continue fluid restriction Continue strict I/Os LE lesions concerning for calciphylasix though no ulcers noted yet but might be first stage. Will continue to presumptively treat with sodium thiosulfate with HD with high suspicion (2) Tracheostomy dependent Current Visit: Yes Status: Acute per primary (3) Acute and chronic respiratory failure ([id number]) Current Visit: No Status: Acute per primary, resolved Qualifiers: Respiratory failure complication: hypoxia Qualified Code(s): J96.21 - Acute and chronic respiratory failure with hypoxia (4) Sepsis Current Visit: No Status: Acute Abx per primary team and ID Permcath removal if deemed necessary might prove problematic given pt is prone to skin tears, ecchymosis, bleeding. Per daughter, had cardiac arrest during a permcath exchange in the past Qualifiers: Sepsis type: Streptococcus, other Qualified Code(s): A40.8 - Other streptococcal sepsis Subjective Interval history: Pt seen and examined with daughter at bedside with no new complaints though still having leg pains. Pt had toe wound debrided by podiatry today with pustular blister cultured as well per nurse Objective - Vital Signs Vital signs: Vital Signs Temp Pulse Resp BP Pulse Ox 10/30/18 22:11 20 98 10/30/18 19:29 98.4 F 72 18 145/75 100 10/30/18 16:17 17 93 10/30/18 16:00 98.6 F 64 21 139/69 94 10/30/18 15:56 62 10/30/18 12:59 98 10/30/18 12:30 66 98 10/30/18 11:37 20 95 10/30/18 11:28 97.8 F 59 20 124/57 95 10/30/18 10:30 98.6 F 95 10/30/18 10:00 88 10/30/18 09:30 82 10/30/18 09:20 16 86 10/30/18 09:00 78 10/30/18 07:42 92 10/30/18 07:25 98.8 F 75 20 120/73 96 10/30/18 04:20 16 97 10/30/18 03:45 97 10/30/18 03:29 99.3 F 77 21 145/78 93 10/29/18 23:54 99.0 F 73 16 132/66 99 10/29/18 23:18 16 92 10/29/18 23:07 16 90 Intake and Output 10/30/18 10/30/18 10/30/18 07:59 15:59 23:59 Intake Total 50 / 643 473 / 643 120 / 643 Output Total 0 / 0 Balance 50 / 643 473 / 643 120 / 643 Intake: Oral 50 / 643 473 / 643 120 / 643 Output: Urine 0 / 0 Other: Meal Breakfast Dinner Percent of Meal Consumed 0% 5% Stool Size Moderate Large Stool Consistency loose loose soft Stool Color Brown # Bowel Movements 1 1 Blood Glucose* [phone] - General Appearance General appearance: Present: chronically ill, frail (+trach) EENT: Present: ATNC, mucous membranes moist Neck: Present: no JVD, supple Additional Comments: good areation ant bilat Cardiology: Present: no edema, normal S1, normal S2 Dialysis Vascular Access: Venous Catheter (permcath) Gastrointestinal: Present: no tenderness, no guarding Integumentary: Present: warm and dry Neurologic: Present: no focal deficit Musculoskeletal: Present: no deformities Psychiatric: Present: mood/affect appropriate, cooperative - Lab 10/30/18 05:44 10/30/18 05:44 Consult Discharge Plan - Plan Referrals: Therese Garcia CNP [Primary Care Provider] - 11/06/18 3:15 pm (sent web request on 10-29-18 @ [facility] Office called back and Therese Garcia does home visits with this patient)
[2018-10-30] MEDS: *HR* LORazepam 0.5 MG TABLET PO PRN (23:11)
[2018-10-31] MEDS: Ipratropium/Albuterol Neb 3 ML IH SCH ×4 (03:28→23:31)
[2018-10-31] MEDS: *HR* Acetaminophen w/Cod 300-30 mg 1 TAB TABLET PO PRN ×3 (03:47→19:45)
[2018-10-31 06:24] LABS: Hematocrit 28.4 % (35.3-44.9)
[2018-10-31 06:25] LABS: Hemoglobin 8.1 g/dL (11.5-15.4); Mean Corpuscular HGB Conc 28.5 g/dL (31.6-35.5); Mean Corpuscular Volume 77.2 fL (83.0-100.0); Mean Platelet Volume 10.3 fL (9.4-12.4); Platelet Count 349 K/mcL (140-400); Red Blood Count 3.68 M/mcL (3.82-4.97); Red Cell Distribution Width 19.2 % (11.5-14.5); White Blood Count 16.8 K/mcL (4.3-11.1)
[2018-10-31 06:37] LABS: Calcium 9.2 mg/dL (8.6-10.3); Potassium 4.5 mEq/L (3.5-5.1)
[2018-10-31] MEDS ORDERED: *HR* Heparin 10,000 UNIT/10 ML VIAL IV PRN ×2 (08:03)
[2018-10-31] MEDS ORDERED: 0.9 % Sodium Chloride 250 ML IVC PRN (08:03)
[2018-10-31] MEDS: Insulin LISPRO 300 UNITS/3 ML VIAL SQ SCH ×4 (08:45→21:39)
--- NOTE | 2018-10-31 09:26 | Podiatry Progress Note ---
Date of Encounter: 10/31/18 Time of Encounter: 09:18 - Assessment and Plan (1) Pustular lesion Current Visit: Yes Status: Acute Assessment: Drained bullae noted to BLE WBC 16.8, slightly elevated from yesterday, no documented fevers Bacteremic, blood cultures positive for group b strep and enterococcus Purpura noted to BLE Xrays negative for OM, atherosclerosis noted on xray Plan: High suspicion for calciphylaxis, discussed with geographic information systems engineer, biopsy not warranted at this time as it only confirms diagnosis and does not change plan of care, recommend on outpatient basis when patient able to tolerate better Marked erythema, receding from demarcation line Covered bullae with xeroform gauze, 4x4 dry gauze, kerlix, and JOHNATHAN bandage Continue local wound care, nursing to change Will continue to monitor (2) Calciphylaxis Current Visit: Yes Status: Suspected See above (3) Diabetic ulcer of right great toe Current Visit: Yes Status: Chronic Assessment: Eschar noted to right great toe DIPJ Erythema noted to surrounding tissu, improved from yesterday No fluctuance noted, no lymphangitis, no foul odor noted Plan: Cleansed with betadine x 3 Covered with 4x4 dry gauze and kerlix Continue local wound care daily Subjective Principal diagnosis: Bilateral lower extremity bullae Interval history: Patient awake in bed. Alert. Tracheostomy in place. Answers yes/no questions. Able to mouth words, not always understood. Daughter at bedside. Denies any fevers, chills, nausea, vomiting, or diarrhea. Denies any calf pain, chest pain, or shortness of breath. No other questions or concerns at this time. Objective - Vital Signs Vital Signs: Vital Signs Temp Pulse Resp BP Pulse Ox 10/31/18 07:39 97.5 F L 59 16 134/60 98 10/31/18 03:51 98.4 F 64 16 144/68 99 10/31/18 03:29 16 137/59 98 10/30/18 23:34 98.6 F 61 18 137/59 92 10/30/18 23:26 16 145/75 90 10/30/18 22:11 20 98 10/30/18 19:29 98.4 F 72 18 145/75 100 10/30/18 16:17 17 93 10/30/18 16:00 98.6 F 64 21 139/69 94 10/30/18 15:56 62 10/30/18 12:59 98 10/30/18 12:30 66 98 10/30/18 11:37 20 95 10/30/18 11:28 97.8 F 59 20 124/57 95 10/30/18 10:30 98.6 F 95 10/30/18 10:00 88 10/30/18 09:30 82 10/30/18 09:20 16 86 Intake and Output 10/30/18 10/31/18 10/31/18 23:59 07:59 15:59 Intake Total 120 / 643 200 / 200 Output Total 0 / 0 Balance 120 / 643 200 / 200 Intake: Oral 120 / 643 200 / 200 Output: Urine 0 / 0 Other: Meal Dinner Percent of Meal Consumed 5% Stool Size Large Stool Consistency loose # Bowel Movements 1 Blood Glucose* 223 123 - Exam Exam: Constitiutional: Alert. Unable to assess orientation. Shakes head yes or no. No acute distress noted Vascular: 3/4 DP/PT bilaterally, CFT <3 sec to all digits, warm to warm from tibia to toes bilaterally, no calf pain with squeeze BLE Neurologic: Diminished sensation to touch, normal plantar response, foot drop to right foot noted Dermatologic: Eschar noted to DIPJ right great toe, minimal erythema noted to periwound area, improved from yesterday's assessment, Drained bullae noted to BLE with varicosities and erythema noted surrounding bullae, erythema does not extend beyond demarcation line, purpura noted to BLE Musculoskeletal: 3/5 muscle strength and normal tone bilaterally. - Lab Result Diagrams: 10/31/18 05:54 10/31/18 05:54 Labs: Abnormal lab results WBC 16.8 K/mcL (4.3-11.1) H 10/31/18 05:54 RBC 3.68 M/mcL (3.82-4.97) L 10/31/18 05:54 Hgb 8.1 g/dL (11.5-15.4) L 10/31/18 05:54 Hct 28.4 % (35.3-44.9) L 10/31/18 05:54 MCV 77.2 fL (83.0-100.0) L 10/31/18 05:54 MCH 22.0 pg (28.0-33.3) L 10/31/18 05:54 MCHC 28.5 g/dL (31.6-35.5) L 10/31/18 05:54 RDW 19.2 % (11.5-14.5) H 10/31/18 05:54 22.4 K/mcL (1.6-8.9) H 10/25/18 12:38 0.4 K/mcL (0.6-4.6) L 10/25/18 12:38 Present (Not Present) A 10/25/18 12:38 1+ (Not Present) A 10/25/18 12:38 PT 20.1 Seconds (9.4-12.1) H 10/25/18 12:38 2430 ng/mLFEU (0-500) H 10/25/18 12:38 VBG pCO2 36 mmHg (41-51) L 10/25/18 14:11 VBG pO2 92 mmHg (25-50) H 10/25/18 14:11 Sodium 128 mEq/L (136-145) L 10/29/18 05:28 Potassium 3.1 mEq/L (3.5-5.1) L 10/25/18 12:38 Chloride 92 mEq/L (98-107) L 10/31/18 05:54 Carbon Dioxide 16 mEq/L (23-29) L 10/31/18 05:54 BUN 40 mg/dL (8-23) H 10/31/18 05:54 3.94 mg/dL (0.60-1.20) H 10/31/18 05:54 Est GFR ( Amer) 13 (> 60) L 10/31/18 05:54 Est GFR (Non-Af Amer) 11 (> 60) L 10/31/18 05:54 Glucose 109 mg/dL (70-105) H 10/31/18 05:54 POC Glucose 124 mg/dL (70-99) H 10/30/18 11:35 305 (280-300) H 10/30/18 05:44 Calcium 8.4 mg/dL (8.6-10.3) L 10/29/18 17:51 Phosphorus 2.4 mg/dL (2.7-4.5) L 10/29/18 17:51 AST 11 Units/L (13-39) L 10/25/18 12:38 128 Units/L (34-104) H 10/25/18 12:38 < 10 Units/L (30-223) L 10/25/18 12:38 0.04 ng/mL (< 0.04) H* 10/25/18 15:11 B-Natriuretic Peptide 492 pg/mL (Less than 100) H 10/25/18 12:38 2.9 g/dL (3.5-5.7) L 10/29/18 17:51 4.0 g/dL (2.4-3.5) H 10/25/18 12:38 0.6 (1.1-2.2) L 10/25/18 12:38 Amylase 26 Units/L (29-103) L 10/30/18 05:44 25-OH Vitamin D Total 25 ng/mL (30-80) L 10/28/18 02:46 11.30 ng/mL (0.00-0.15) H 10/25/18 18:27 PTH Intact 118.9 pg/ml (10.0-65.0) H 10/28/18 02:46 Vancomycin Trough 19 mcg/mL (5-10) H 10/30/18 05:44 Enterococcus sp PCR DETECTED (Not Detect) A 10/28/18 16:48 Hep Bs Antibody < 3.10 mIU/mL (10.00-) L 10/26/18 01:48 Streptococcus sp PCR DETECTED (Not Detect) A 10/26/18 01:48 Group B Strep (PCR) DETECTED (Not Detect) A 10/26/18 01:48 Microbiology, Last 48 Hours 10/30/18 13:45 Wound Culture - Preliminary Left Leg Culture is incubating. 10/30/18 13:45 Anaerobic Culture - Preliminary Left Leg Culture is incubating. 10/28/18 16:48 Blood Culture - Final Peripheral Venipuncture Enterococcus faecalis 10/28/18 16:48 Blood Culture - Final Peripheral Venipuncture Enterococcus faecalis 10/25/18 13:10 Blood Culture - Final Peripheral Venipuncture Strep agalactiae - (Group B) Enterococcus faecalis 10/26/18 01:40 Blood Culture - Final Peripheral Venipuncture Strep agalactiae - (Group B) Enterococcus faecalis 10/26/18 01:48 Blood Culture - Final Peripheral Venipuncture Strep agalactiae - (Group B) Enterococcus faecalis 10/30/18 05:40 Blood Culture - Preliminary Peripheral Venipuncture Culture is incubating and being continuously monitored for growth. Final report to follow. 10/30/18 05:44 Blood Culture - Preliminary Peripheral Venipuncture Culture is incubating and being continuously monitored for growth. Final report to follow. 10/25/18 13:00 Blood Culture - Final Peripheral Venipuncture Strep agalactiae - (Group B) Enterococcus faecalis Consult Discharge Plan - Plan Referrals: Therese Garcia CNP [Primary Care Provider] - 11/06/18 3:15 pm (sent web request on 10-29-18 @ [facility] Office called back and Therese Garcia does home visits with this patient)
[2018-10-31 10:14] LABS: ANA IgG by ELISA NONE DETECTED (None Detected)
[2018-10-31] MEDS: Budesonide/Formoterol 160/4.5 1 PUFF INH IH SCH ×2 (10:42→23:31)
--- NOTE | 2018-10-31 11:07 | Infectious Disease Progress No ---
ID Progress Note Date of Encounter: 10/31/18 Time of Encounter: 10:40 - Subjective Subjective: Patient seen and examined in the HD unit with daughter at bedside. No acute events noted overnight. Patient states she feels better today. She denies fevers, chills, rigors. States shortness of breath and cough are at baseline. Complains of right sided abdominal pain that she states feels like a pulled muscle. She is anuric secondary to her end-stage renal disease. Complains of pain to the bilateral lower extremities. States her appetite is better today. - Objective CBC & Chem 7: 10/31/18 05:54 10/31/18 05:54 - Line Documentation Line Documentation: Dialysis Catheter (Perma-cath noted to the right upper chest with transparent dressing C/D/I.) - Exam Vitals: Temp Pulse Resp BP Pulse Ox 97.6 F 59 16 108/68 98 10/31/18 09:15 10/31/18 07:39 10/31/18 09:15 10/31/18 10:45 10/31/18 07:39 Exam: Head: Atraumatic, normal inspection, normocephalic. Eye: EOMI, PERRLA, no scleral icterus noted. ENT: Mucous membranes moist. No odontogenic infection noted. Neck: Normal inspection, no meningismus. Tracheostomy midline. Respiratory: Scattered rhonchi throughout. No rales, respiratory distress, or wheezes noted. O2 via trach mask. Cardiovascular: Regular rate and rhythm, S1 and S2 audible. No murmurs, rubs, or gallops. GI: Soft, nondistended, normal bowel sounds. Generalized tenderness noted on exam, worse in the RUQ and RLQ. Extremities: No joint swelling or tenderness noted. Scabbed ulcer noted to the distal aspect of the right great toe without erythema or fluctuance noted. No drainage. Neurological: Alert, oriented 3, no focal deficits. Psychiatric: normal affect, normal mood. Skin: Dry, intact, warm. Normal color. Multiple superficial skin tears noted to the BUE and BLE. Multiple areas of ecchymosis noted to the BUE and BLE. Bilateral foot and ankle dressings C/D/I. Additional exam findings: Perma-cath noted to the right upper chest with transparent dressing C/D/I. No erythema, warmth, tenderness, or drainage noted. Currently accessed for HD. - Assessment and Plan (1) Leukocytosis Current Visit: No Status: Acute WBC 23.4 with neutrophilic predominance on admission. Likely secondary to bacteremia. Resolved initially, but continues to trend up today. Not on steroids. Qualifiers: Leukocytosis type: unspecified Qualified Code(s): D72.829 - Elevated white blood cell count, unspecified SNOMED Code(s): 518246615, 985508415 (2) Bacteremia Current Visit: Yes Status: Acute Causative organism: GBS and Enterococcus faecalis. Source: Unclear --> HD catheter vs. intra-abdominal vs. other. Blood cultures drawn 10/25/18 (peripheral) are positive 2/2 for Enteroccocus and GBS. Repeat blood cultures drawn 10/26/18 are positive x 2 sets for GBS and E. faecalis. Blood cultures from 10/28/18 for also positive 2 sets for E. faecalis only. Blood cultures drawn 10/30/18 are pending x 2 sets. Clinically, the perma-cath does not appear infected, but high index of suspicion that this is the source and/or seeded given the persistent bacteremia without additional source identified. No cultures were drawn from the Perma-cath. The patient does have an implanted loop recorder, but no other hardware. No endocarditis stigmata noted on exam. Abdominal pain concerning for intra-abdominal source, but CT of the abdomen and pelvis was negative, although it was done without contrast. May need to consider repeating with contrast. TTE was negative for valvular vegetations. Will discuss line removal with the primary and nephrology teams. If unable to remove, would highly recommend Vancomycin lock therapy to help minimize colonization of the catheter. Currently on Vancomycin. SNOMED Code(s): 1719234 (3) Abdominal pain Current Visit: Yes Status: Acute Location: Generalized, worse in the RUQ, RLQ, and flank. Etiology: Unclear. CT of the abdomen and pelvis negative for acute abnormality, but was done without contrast. LFTs were normal. Amylase and lipase normal. Qualifiers: Abdominal location: right upper quadrant Qualified Code(s): R10.11 - Right upper quadrant pain SNOMED Code(s): 64350094 (4) Acute on chronic congestive heart failure Current Visit: No Status: Chronic CXR showed mild pulmonary edema. BNP elevated at 492. Known history of CHF. TTE completed 03/2018 showed EF 55%-60%. Repeat TTE showed an EF of 60-65%. Further workup and management per the primary team. SNOMED Code(s): 290622030, 77786856771110 (5) Lung nodules Current Visit: No Status: Acute Chronic, noted on imaging 2017. Repeat CT unchanged. SNOMED Code(s): 448850207 (6) Anemia Current Visit: No Status: Chronic Qualifiers: Anemia type: unspecified type Qualified Code(s): D64.9 - Anemia, unspecified SNOMED Code(s): 742642178 (7) History of CVA (cerebrovascular accident) Current Visit: No Status: Chronic SNOMED Code(s): 778846340 (8) ESRD (end stage renal disease) on dialysis Current Visit: No Status: Chronic HD M/W/F since 2016. Perma-cath noted without evidence of infection. Follows with Dr. Lam. Nicole Nephrology consulted. SNOMED Code(s): 635464127 (9) COPD (chronic obstructive pulmonary disease) Current Visit: No Status: Chronic Qualifiers: COPD type: unspecified COPD Qualified Code(s): J44.9 - Chronic obstructive pulmonary disease, unspecified SNOMED Code(s): 01415782 (10) Insulin dependent type 2 diabetes mellitus Current Visit: No Status: Chronic SNOMED Code(s): 409534510 (11) Blister of leg Current Visit: Yes Status: Acute Location: Bilateral lower extremities. Bullous lesions noted to the bilateral lower extremities with what appears to be purulent drainage noted inside the blisters. Etiology: Unclear. 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 X-rays negative for calcifications. Podiatry consulted. 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 Wound cultures are pending. SNOMED Code(s): 461787849, 453945584, 114451551 - Recommendations Recommendations: Await blood cultures to finalize. Await wound cultures. ESRD per the nephrology team. Consider repeat CT of the abdomen and pelvis with contrast to further evaluate given the patient's persistent abdominal pain. Consider removal of the Perma-cath after next HD session with line holiday to follow. If unable to perform line holiday/exchange, would highly recommend Vanc lock therapy. Will discuss with Nephrology. Continue Vancomycin IV. Pharmacy to dose. Goal trough ~15. Duration of treatment depends on the clinical picture. Monitor renal function and for drug toxicity and dose-adjust antibiotics. Consult Discharge Plan - Plan Referrals: Therese Garcia CNP [Primary Care Provider] - 11/06/18 3:15 pm (sent web request on 10-29-18 @ [facility] Office called back and Therese Garcia does home visits with this patient)
--- NOTE | 2018-10-31 12:19 | Internal Med Progress Note ---
Hospitalist Progress Note - Encounter Date of Encounter: 10/31/18 Time of Encounter: 12:15 - Subjective Interval History: Patient seen and examined at bedside and dialysis. Patient states that that she feels pretty good today. She denies any fever, chills. She denies any pain or drainage at her dialysis catheter site. - Exam Vitals: Temp Pulse Resp BP Pulse Ox 97.6 F 62 17 108/68 96 10/31/18 09:15 10/31/18 10:40 10/31/18 10:40 10/31/18 10:45 10/31/18 10:40 Exam: Gen.: Alert and oriented 3 Heart: Regular rate and rhythm, no murmurs, rubs, gallops Lungs: Clear to auscultation bilaterally, no rales, rhonchi, wheezes Skin: Permacath site shows no erythema or drainage appreciated. - Assessment and Plan (1) Sepsis Current Visit: No Status: Acute Assessment and Plan: Patient noted to be bacteremic however source is unclear. Most likely site ap pears to be hemodialysis catheter. Discussed with infectious disease and they did recommend that the catheter be changed. We will discuss with nephrology regarding possible permacath exchange. (2) Acute and chronic respiratory failure ([id number]) Current Visit: No Status: Acute Assessment and Plan: Pt presented with dyspnea and evidence of pulmonary edema. Symptomatically she is much improved at this time. Continue trach collar. (3) COPD (chronic obstructive pulmonary disease) Current Visit: No Status: Chronic Assessment and Plan: Chronic issue. No evidence of acute exacerbation. (4) Calciphylaxis Current Visit: Yes Status: Suspected Assessment and Plan: Nephrology following. Starting sodium thiosulfate with hemodialysis per nephrology recommendations. (5) BRANDY (iron deficiency anemia) Current Visit: No Status: Suspected Assessment and Plan: Hemoglobin stable at this time. No evidence of active bleeding. (6) Hyponatremia Current Visit: No Status: Resolved Assessment and Plan: Resolved at this time. (7) Diabetes mellitus Current Visit: No Status: Chronic Assessment and Plan: Blood sugars under good control. Continue current insulin regimen. - Time Spent with Patient Total time spent is greater than 50% in coordination of care (as documented) at patient's floor/unit and/or counseling patient: Internal Medicine: Result - Labs CBC & Chem 7: 10/31/18 05:54 10/31/18 05:54 Labs: Short CBC 10/31/18 Range/Units 05:54 WBC 16.8 H (4.3-11.1) K/mcL Hgb 8.1 L (11.5-15.4) g/dL Hct 28.4 L (35.3-44.9) % Plt Count 349 (140-400) K/mcL BMP 10/31/18 05:54 Sodium 139 Potassium 4.5 Chloride 92 L Carbon Dioxide 16 L BUN 40 H Creatinine 3.94 H Glucose 109 H Calcium 9.2 - ABG Interpretation ABG results: PT/INR, D-dimer PT 20.1 Seconds (9.4-12.1) H 10/25/18 12:38 2430 ng/mLFEU (0-500) H 10/25/18 12:38 Consult Discharge Plan - Plan Referrals: Therese Garcia CNP [Primary Care Provider] - 11/06/18 3:15 pm (sent web request on 10-29-18 @ [facility] Office called back and Therese Garcia does home visits with this patient) (1) Sepsis Qualifiers: Sepsis type: Streptococcus, other Qualified Code(s): A40.8 - Other streptococcal sepsis (2) Acute and chronic respiratory failure ([id number]) Qualifiers: Respiratory failure complication: hypoxia Qualified Code(s): J96.21 - Acute and chronic respiratory failure with hypoxia (3) COPD (chronic obstructive pulmonary disease) Qualifiers: COPD type: unspecified COPD Qualified Code(s): J44.9 - Chronic obstructive pulmonary disease, unspecified (5) BRANDY (iron deficiency anemia) Qualifiers: Iron deficiency anemia type: chronic blood loss Qualified Code(s): D50.0 - Iron deficiency anemia secondary to blood loss (chronic) (7) Diabetes mellitus Qualifiers: Diabetes mellitus type: type 2 Diabetes mellitus intermediate project manager insulin use: with intermediate project manager use Diabetes mellitus complication status: with kidney complications Diabetes mellitus complication detail: with chronic kidney disease Chronic kidney disease stage: on chronic dialysis Qualified Code(s): E11.22 - Type 2 diabetes mellitus with diabetic chronic kidney disease; N18.6 - End stage renal disease; Z79.4 - FDC (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
[2018-10-31] MEDS: Apixaban 2.5 MG TABLET PO SCH ×2 (13:21→21:32)
[2018-10-31] MEDS: predniSONE 20 MG TABLET PO SCH (13:22)
[2018-10-31] MEDS: Renal Vitamin 1 CAP CAPSULE PO SCH (13:22)
[2018-10-31] MEDS: Insulin DETEMIR 100 UNIT/ML X5UNITS SQ SCH (13:35)
[2018-10-31] MEDS: *HR* Amiodarone 200 MG TABLET PO SCH (13:40)
[2018-10-31] MEDS ORDERED: Vancomycin 500 MG in 0.9 % Sodium Chloride Mini Bag 100 ML IVPB ONE (16:00)
[2018-10-31] MEDS ORDERED: Isovue-370 500 ML BOTTLE IVP ONE (16:02)
[2018-10-31] MEDS: Nystatin POWDER 30 GM BOTTLE TP SCH ×2 (16:37→23:03)
[2018-10-31 18:59] LABS: Albumin 2.9 g/dL (3.5-5.7); Calcium 8.5 mg/dL (8.6-10.3); Phosphorous 2.2 mg/dL (2.7-4.5); Potassium 3.3 mEq/L (3.5-5.1)
[2018-10-31] MEDS: Acetaminophen 325 MG TABLET PO PRN (21:59)
[2018-10-31] MEDS: *HR* LORazepam 0.5 MG TABLET PO PRN (22:01)
--- NOTE | 2018-10-31 23:42 | Nephrology Progress Note ---
Date of Encounter: 10/31/18 Time of Encounter: 12:00 - Assessment and Plan (1) ESRD (end stage renal disease) on dialysis Current Visit: No Status: Chronic Continue HD with UF as tolerated Continue fluid restriction Continue strict I/Os LE lesions concerning for calciphylasix though no ulcers noted yet but might be first stage. Will continue to presumptively treat with sodium thiosulfate with HD with high suspicion (2) Tracheostomy dependent Current Visit: Yes Status: Acute per primary (3) Acute and chronic respiratory failure ([id number]) Current Visit: No Status: Acute per primary, resolved Qualifiers: Respiratory failure complication: hypoxia Qualified Code(s): J96.21 - Acute and chronic respiratory failure with hypoxia (4) Sepsis Current Visit: No Status: Acute Abx per primary team and ID Discussed permcath salvage with vanco in catheter for dwells due to pt frail state with ID and hold off on permcath removal for now, though if needed will exchange vs planned catheter holiday Qualifiers: Sepsis type: Streptococcus, other Qualified Code(s): A40.8 - Other streptococcal sepsis Subjective Principal diagnosis: Bilateral lower extremity bullae Interval history: Pt seen and examined with daughter at bedside on HD reports she does not feel good but cannot elaborate. BP redaings very stable around 120-130s systolic during HD Objective - Vital Signs Vital signs: Vital Signs Temp Pulse Resp BP Pulse Ox 10/31/18 19:48 98.9 F 75 18 130/58 100 10/31/18 18:05 74 18 97 10/31/18 16:06 98.9 F 69 20 112/99 100 10/31/18 16:05 70 18 100 10/31/18 16:03 18 100 10/31/18 13:55 100 10/31/18 12:34 97.7 F 75 20 92/51 91 10/31/18 12:20 97.6 F 20 84/55 10/31/18 12:05 120/65 10/31/18 12:00 123/93 10/31/18 11:45 116/98 10/31/18 11:30 112/58 10/31/18 11:15 121/76 10/31/18 11:00 115/31 10/31/18 10:45 108/68 10/31/18 10:40 62 17 96 10/31/18 10:30 120/72 10/31/18 10:15 124/56 10/31/18 10:00 117/77 10/31/18 09:45 137/79 10/31/18 09:30 159/77 10/31/18 09:15 97.6 F 16 138/104 10/31/18 08:40 70 10/31/18 07:39 97.5 F L 59 16 134/60 98 10/31/18 03:51 98.4 F 64 16 144/68 99 10/31/18 03:29 16 137/59 98 Intake and Output 10/31/18 10/31/18 10/31/18 07:59 15:59 23:59 Intake Total 200 / 920 600 / 920 120 / 920 Output Total 0 / 3485 3485 / 3485 0 / 3485 Balance 200 / -2565 -2885 / -2565 120 / -2565 Intake: Oral 200 / 320 0 / 320 120 / 320 Intake, Rinseback and Flushes 600 / 600 Output: Urine 0 / 0 0 / 0 Total Dialysis (HD) Output 3485 / 3485 Other: Meal Lunch Dinner Percent of Meal Consumed 0% 50% Blood Glucose* 123 287 201 Hemodialysis Net Fluid Removed 2885 (mL) - General Appearance General appearance: Present: chronically ill, fatigue, frail EENT: Present: ATNC, mucous membranes moist Neck: Present: no JVD, supple Additional Comments: good areation ant bilat Cardiology: Present: no edema (LE with dressing bilat), normal S1, normal S2 Dialysis Vascular Access: Venous Catheter (permcath) Gastrointestinal: Present: no tenderness, no guarding Integumentary: Present: warm and dry, ecchymotic, skin tear Neurologic: Present: no focal deficit Musculoskeletal: Present: no deformities Psychiatric: Present: mood/affect appropriate, cooperative - Lab 10/31/18 05:54 10/31/18 17:58 Most recent lab results 10/31/18 17:58 Calcium 8.5 L Phosphorus 2.2 L Consult Discharge Plan - Plan Referrals: Therese Garcia CNP [Primary Care Provider] - 11/06/18 3:15 pm (sent web request on 10-29-18 @ [facility] Office called back Miranda Garcia does home visits with this patient)
[2018-11-01] MEDS: *HR* Acetaminophen w/Cod 300-30 mg 1 TAB TABLET PO PRN ×2 (03:38→20:54)
[2018-11-01 04:05] LABS: Hematocrit 32.2 % (35.3-44.9)
[2018-11-01 04:06] LABS: Mean Corpuscular Volume 78.5 fL (83.0-100.0); Mean Platelet Volume 10.4 fL (9.4-12.4); Platelet Count 390 K/mcL (140-400); White Blood Count 14.7 K/mcL (4.3-11.1)
[2018-11-01 04:25] LABS: Calcium 8.5 mg/dL (8.6-10.3); Potassium 3.8 mEq/L (3.5-5.1)
[2018-11-01] MEDS: Ipratropium/Albuterol Neb 3 ML IH SCH ×4 (04:55→22:41)
--- NOTE | 2018-11-01 07:34 | Internal Med Progress Note ---
<Oumar Leon - Last Filed: 11/01/18 11:25> Hospitalist Progress Note - Encounter Date of Encounter: 11/01/18 Time of Encounter: 08:30 - Subjective Interval History: When seen today patient was resting comfortably in her bed. She denied any chest pain or shortness of breath. Denied any nausea or vomiting. Continued to complain of mild abdominal discomfort with positional change. Denies any fever. - Exam Vitals: Temp Pulse Resp BP Pulse Ox 99.1 F 76 17 134/58 100 11/01/18 07:13 11/01/18 07:13 11/01/18 07:13 11/01/18 07:13 11/01/18 07:13 Exam: GENERAL APPEARANCE: Frail, alert and cooperative, and appears to be in no acute distress. HEAD: normocephalic. EYES: vision is grossly intact. EARS: hearing grossly intact. NOSE: No nasal discharge. THROAT: Oral cavity and pharynx normal. No inflammation, swelling, exudate, or lesions. NECK: Neck supple, non-tender without lymphadenopathy, masses or thyromegaly. CARDIAC: Normal S1 and S2. No S3, S4 or murmurs. Rhythm is regular. There is no cyanosis or pallor. Extremities are warm and well perfused. Capillary refill is less than 2 seconds. No carotid bruits. LUNGS: Crackles, rhales, and wheezing b/l. ABDOMEN: Positive bowel sounds. Soft, mild tenderness with deep palpation diffusely. Mild distension. No guarding or rebound. No masses. MUSKULOSKELETAL: No joint erythema or tenderness. Normal muscular development. EXTREMITIES: No significant deformity or joint abnormality. Peripheral pulses intact. No varicosities. No pitting edema of the LE b/l. LOWER EXTREMITY: Examination of both feet reveals R toe bandaged from chronic pressure ulcer. Distal capillary filling of less than 2 seconds without tenderness, swelling, discoloration, nodules, weakness or deformity; examination of both ankles, knees, legs, and hips reveals normal range of motion, normal sensation without tenderness, swelling, discoloration, crepitus, weakness or deformity. SKIN: Skin shows multiple superficial vessel bleeds. LE bandaged and intact. No active bleeding. PSYCHIATRIC: The mental examination revealed the patient was oriented to person, place, and time. - Assessment and Plan (1) Dyspnea Current Visit: No Status: Acute Assessment and Plan: Likely secondary to CHF exacerbation and sepsis. Chest x-ray showed pulmonary edema with bandlike opacity in the left lung base. Had an elevated BMP on arrival. Demonstrates left lower extremity swelling, which has improved. Denies any active chest pain. Patient also had elevated D dimers however CTA of the chest ruled out PE. Procalcitonin level was high. Blood cultures revealed gram positive cocci enterocaccus and Group B strep. Patient was started on Rocephin and Vancomycin. Infectious disease was consulted. Recommended continuing with current antibiotic treatment. Echocardiogram showed no signi ficant vavlular dysfunction. Repeat blood cultures from 10/28 continued to show gram positive cocci. 10/30/18: Patient had an O2 desaturation to 82%, which then stabilized to 87%. On exam, there was increased crackles on the L side. A CXR was ordered an revealed small L pleural effusion with adjacent atelectasis which was slightly increased compared to the prior exam. Patient's O2 saturation has increased back to 98% in the afternoon. Plan: - Patient to receive HD treatment tomorrow. - Strict I/O's. - C/W hemodialysis Monday which will help with her fluid removal. - C/W home medications for COPD: prednisone to 20 mg by mouth daily. - Fluid restriction diet 1500 mL per day. (2) Bacteremia Current Visit: Yes Status: Acute Assessment and Plan: Persistent enterococcal bacteremia. Source is unclear at the moment: HD catheter vs. intra-abdominal vs. other. Perma-cath does not appear infected. Abdominal CT did not reveal an abscess. Patient was c/o swelling/tenderness in R ankle. X-ray did not reveal any evidence of osteomyelitis. Echocardiogram revealed no valvular dysfunction. X-ray of the L ankle as well did not reveal any signs of osteomyelitis. 11/01/18: CT of the abdomen with IV contrast done yesterday and showed no abscess. The source of infection is likely the HD catheter. Nephrology recommended holding off of the permcath removal yesterday due to the patient's frail state. WBC count has been downtrending. Patient afebrile overnight. Plan: - ID to discuss line removal with nephrology. If unable to remove, they would highly recommend Vancomycin lock therapy to help minimize colonization of the catheter. - C/W Vancomycin. (3) CKD (chronic kidney disease) stage V requiring chronic dialysis Current Visit: No Status: Chronic Assessment and Plan: On hemodialysis Monday schedule. [facility] and has been compliant with her treatments. Labs showed hypokalemia, mild hyponatremia, and creatinine level 2.54 on arrival. Plan: - C/W hemodialysis schedule. - Avoid nephrotoxins. - Renal dose medications. 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 Biopsy not recommeneded at this time. Confirmed with x-ray of LE. Plan: - Nephrology recommends sodium thiosulfate with HD. (5) Tracheostomy dependent Current Visit: Yes Status: Acute Assessment and Plan: On 09/06/2016, she had an extended right colectomy and lysis of adhesions.During this hospitalization she developed acute on chronic respiratory failure, acute, exacerbation of COPD, Acute on chronic kidney injury, bacteremia due to VRE, invasive pulmonary aspergillosis. 09/26/16 and subsequently had endotrachial tube placed. 10/30/18: Informed by patient's daughter that she is overdue for a tracheostomy tube replacement by 1 week. Informed respiratory therapy that will be handling the replacement. (6) Afib Current Visit: No Status: Chronic Assessment and Plan: Rate Controlled. Plan: - C/W amiodarone, metoprolol, and Eliquis. (7) T2DM (type 2 diabetes mellitus) Current Visit: Yes Status: Chronic Assessment and Plan: Insulin dependant. Blood glucose levels have been in the 200-400 range in the last few days. Improved from yesterday (at 229 today). Plan: - C/W 20 U Levemir SQ qAM. - C/W insulin correction dose medium scale. (8) Pustular lesion Current Visit: Yes Status: Acute Assessment and Plan: Pustular lesions in LE. Intact without eruption. Plan: - Wound cultures pending. - Podiatry on board. - C/W wound care. (9) Hypertension Current Visit: No Status: Chronic Assessment and Plan: BP controlled. Plan: - C/W metoprolol. (10) COPD (chronic obstructive pulmonary disease) Current Visit: No Status: Chronic Assessment and Plan: - C/W home duonebs and albuterol. - Prednisone 20 mg PO. - O2 treatment as needed. (11) Iron deficiency anemia Current Visit: No Status: Acute Assessment and Plan: Hgb at baseline. (12) DVT prophylaxis Current Visit: No Status: Acute Assessment and Plan: On Eliquis. - Time Spent with Patient Total time spent is greater than 50% in coordination of care (as documented) at patient's floor/unit and/or counseling patient: Internal Medicine: Result - Labs CBC & Chem 7: 11/01/18 03:45 11/01/18 03:45 Labs: Short CBC 11/01/18 Range/Units 03:45 WBC 14.7 H (4.3-11.1) K/mcL Hgb 9.0 L (11.5-15.4) g/dL Hct 32.2 L (35.3-44.9) % Plt Count 390 (140-400) K/mcL BMP 10/31/18 11/01/18 17:58 03:45 Sodium 136 133 L Potassium 3.3 L D 3.8 Chloride 94 L 92 L Carbon Dioxide 27 22 L BUN 14 19 Creatinine 1.99 H 2.70 H Glucose 93 209 H Calcium 8.5 L 8.5 L Liver Function 10/31/18 Range/Units 17:58 Albumin 2.9 L (3.5-5.7) g/dL - ABG Interpretation ABG results: PT/INR, D-dimer PT 20.1 Seconds (9.4-12.1) H 10/25/18 12:38 2430 ng/mLFEU (0-500) H 10/25/18 12:38 - Impressions Impressions Abdomen/Pelvis CT 10/31/18 16:02 IMPRESSION: 1. No acute intra-abdominal process identified. No organized fluid or free fluid identified within the abdomen or pelvis. 2. Left basilar consolidative changes may reflect atelectasis versus infiltrate. 3. Similar appearance of what is favored to reflect omental infarcts is described on prior exam. 4. Colonic diverticulosis without CT evidence for diverticulitis. D/ / Bossman Lopez MD / Bossman Lopez MD Interpreting Provider: Bossamn Lopez MD Consult Discharge Plan - Plan Referrals: Therese Garcia CNP [Primary Care Provider] - 11/06/18 3:15 pm (sent web request on 10-29-18 @ [facility] Office called back and Therese Garcia does home visits with this patient) <Turner Oneil - Last Filed: 11/01/18 14:30> Hospitalist Progress Note - Encounter Date of Encounter: 11/01/18 - Exam Vitals: Temp Pulse Resp BP Pulse Ox 98.9 F 63 16 119/55 94 11/01/18 11:30 11/01/18 11:30 11/01/18 11:30 11/01/18 11:30 11/01/18 11:30 - Assessment and Plan (1) Sepsis Current Visit: No Status: Acute (2) Acute and chronic respiratory failure ([id number]) Current Visit: No Status: Acute (3) COPD (chronic obstructive pulmonary disease) Current Visit: No Status: Chronic (4) Calciphylaxis Current Visit: Yes Status: Suspected (5) BRANDY (iron deficiency anemia) Current Visit: No Status: Suspected (6) Hyponatremia Current Visit: No Status: Resolved (7) Diabetes mellitus Current Visit: No Status: Chronic - Time Spent with Patient Total time spent is greater than 50% in coordination of care (as documented) at patient's floor/unit and/or counseling patient: Internal Medicine: Result - Labs CBC & Chem 7: 11/01/18 03:45 11/01/18 03:45 Labs: Short CBC 11/01/18 Range/Units 03:45 WBC 14.7 H (4.3-11.1) K/mcL Hgb 9.0 L (11.5-15.4) g/dL Hct 32.2 L (35.3-44.9) % Plt Count 390 (140-400) K/mcL BMP 10/31/18 11/01/18 17:58 03:45 Sodium 136 133 L Potassium 3.3 L D 3.8 Chloride 94 L 92 L Carbon Dioxide 27 22 L BUN 14 19 Creatinine 1.99 H 2.70 H Glucose 93 209 H Calcium 8.5 L 8.5 L Liver Function 10/31/18 Range/Units 17:58 Albumin 2.9 L (3.5-5.7) g/dL - ABG Interpretation ABG results: PT/INR, D-dimer PT 20.1 Seconds (9.4-12.1) H 10/25/18 12:38 2430 ng/mLFEU (0-500) H 10/25/18 12:38 - Impressions Impressions Abdomen/Pelvis CT 10/31/18 16:02 IMPRESSION: 1. No acute intra-abdominal process identified. No organized fluid or free fluid identified within the abdomen or pelvis. 2. Left basilar consolidative changes may reflect atelectasis versus infiltrate. 3. Similar appearance of what is favored to reflect omental infarcts is described on prior exam. 4. Colonic diverticulosis without CT evidence for diverticulitis. D/ / Bossman Lopez MD / Bossman Lopez MD Interpreting Provider: Bossman Lopez MD - Attending Attestation I examined this patient and my medical decision-making was reviewed with the Resident Physician. I agree with the documented findings, disposition and treatment plan as described except to the extent set forth below. Continue examined at bedside. Patient states that she feels pretty good today. She does state that she feels weak. Otherwise she denies any abdominal pain, fever, chills. On exam she is alert and oriented 3, heart is regular rate and rhythm, abdomen is soft, nontender. PermaCath site has no overlying erythema or drainage. Sepsis secondary to bacteremia with presumed source to be permacath: Overall the patient appears to be improving on IV vancomycin. CT scan of the abdomen with contrast yesterday did not reveal any abscess. Concern is that the catheter is infected however patient is high risk to have the catheter removed per nephrology. After discussion with ID and Nephro we will plan to remove the permacath after HD tomorrow for a line holiday until Monday. Chronic respiratory failure: Patient has a tracheostomy and is on trach mask during the day with ventilator at night. <Oumar Leon - Last Filed: 11/01/18 11:25> (1) Dyspnea Qualifiers: Qualified Code(s): R06.00 - Dyspnea, unspecified (6) Afib Qualifiers: Atrial fibrillation type: chronic Qualified Code(s): I48.2 - Chronic atrial fibrillation (7) T2DM (type 2 diabetes mellitus) Qualifiers: Chronic kidney disease stage: on chronic dialysis (9) Hypertension Qualifiers: Hypertension type: essential hypertension Qualified Code(s): I10 - Essential (primary) hypertension (10) COPD (chronic obstructive pulmonary disease) Qualifiers: COPD type: unspecified COPD Qualified Code(s): J44.9 - Chronic obstructive pulmonary disease, unspecified (11) Iron deficiency anemia Qualifiers: Iron deficiency anemia type: unspecified iron deficiency Qualified Code(s): D50.9 - Iron deficiency anemia, unspecified <Turner Oneil - Last Filed: 11/01/18 14:30> (1) Sepsis Qualifiers: Sepsis type: Streptococcus, other Qualified Code(s): A40.8 - Other streptococcal sepsis (2) Acute and chronic respiratory failure ([id number]) Qualifiers: Respiratory failure complication: hypoxia Qualified Code(s): J96.21 - Acute and chronic respiratory failure with hypoxia (3) COPD (chronic obstructive pulmonary disease) Qualifiers: COPD type: unspecified COPD Qualified Code(s): J44.9 - Chronic obstructive pulmonary disease, unspecified (5) BRANDY (iron deficiency anemia) Qualifiers: Iron deficiency anemia type: chronic blood loss Qualified Code(s): D50.0 - Iron deficiency anemia secondary to blood loss (chronic) (7) Diabetes mellitus Qualifiers: Diabetes mellitus type: type 2 Diabetes mellitus 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
[2018-11-01] MEDS: Insulin LISPRO 300 UNITS/3 ML VIAL SQ SCH ×4 (08:02→20:58)
[2018-11-01] MEDS: predniSONE 20 MG TABLET PO SCH (08:05)
[2018-11-01] MEDS: *HR* Amiodarone 200 MG TABLET PO SCH (08:05)
[2018-11-01] MEDS: Apixaban 2.5 MG TABLET PO SCH ×2 (08:05→20:57)
[2018-11-01] MEDS: Renal Vitamin 1 CAP CAPSULE PO SCH (08:06)
[2018-11-01] MEDS: Insulin DETEMIR 100 UNIT/ML X5UNITS SQ SCH (08:18)
[2018-11-01] MEDS: Budesonide/Formoterol 160/4.5 1 PUFF INH IH SCH ×2 (10:46→22:41)
--- NOTE | 2018-11-01 11:03 | Infectious Disease Progress No ---
ID Progress Note Date of Encounter: 11/01/18 Time of Encounter: 09:45 - Subjective Subjective: Patient seen and examined with daughter at bedside. No acute events noted overnight. Patient states she feels better today. She denies fevers, chills, rigors. States shortness of breath and cough are at baseline. Complains of pain in the right shoulder. Denies abdominal pain this morning unless she moves, then she has pain in her right side. She is anuric secondary to her end-stage renal disease. States her appetite is better today. - Objective CBC & Chem 7: 11/01/18 03:45 11/01/18 03:45 - Line Documentation Line Documentation: Dialysis Catheter (Perma-cath noted to the right upper chest with transparent dressing C/D/I.) - Exam Vitals: Temp Pulse Resp BP Pulse Ox 99.1 F 76 18 134/58 100 11/01/18 07:13 11/01/18 07:13 11/01/18 10:56 11/01/18 07:13 11/01/18 10:56 Exam: Head: Atraumatic, normal inspection, normocephalic. Eye: EOMI, PERRLA, no scleral icterus noted. ENT: Mucous membranes moist. No odontogenic infection noted. Neck: Normal inspection, no meningismus. Tracheostomy midline. Respiratory: Scattered rhonchi throughout. No rales, respiratory distress, or wheezes noted. O2 via trach mask. Cardiovascular: Regular rate and rhythm, S1 and S2 audible. No murmurs, rubs, or gallops. GI: Soft, nondistended, normal bowel sounds. Non-tender. Extremities: No joint swelling or tenderness noted. 1+ edema noted to the BLE. Neurological: Alert, oriented 3, no focal deficits. Psychiatric: normal affect, normal mood. Skin: Dry, intact, warm. Normal color. Multiple superficial skin tears noted to the BUE and BLE. Multiple areas of ecchymosis noted to the BUE and BLE. Bilateral foot and ankle dressings C/D/I. Additional exam findings: Perma-cath noted to the right upper chest with transparent dressing C/D/I. No erythema, warmth, tenderness, or drainage noted. - Assessment and Plan (1) Leukocytosis Current Visit: No Status: Acute WBC 23.4 with neutrophilic predominance on admission. Likely secondary to bacteremia. Improved. Continue to trend. Qualifiers: Leukocytosis type: unspecified Qualified Code(s): D72.829 - Elevated white blood cell count, unspecified SNOMED Code(s): 517473208, 877605240 (2) Bacteremia Current Visit: Yes Status: Acute Causative organism: GBS and Enterococcus faecalis. Source: Unclear --> HD catheter vs. intra-abdominal vs. other. Blood cultures drawn 10/25/18 (peripheral) are positive 2/2 for Enteroccocus and GBS. Repeat blood cultures drawn 10/26/18 are positive x 2 sets for GBS and E. faecalis. Blood cultures from 10/28/18 for also positive 2 sets for E. faecalis only. Blood cultures drawn 10/30/18 are NGTD x 2 sets. Clinically, the perma-cath does not appear infected, but high index of suspicion that this is the source and/or seeded given the persistent bacteremia without additional source identified. No cultures were drawn from the Perma-cath. The patient does have an implanted loop recorder, but no other hardware. No endocarditis stigmata noted on exam. Abdominal pain concerning for intra-abdominal source, but CT of the abdomen and pelvis was negative, both with and without contrast. TTE was negative for valvular vegetations. Will discuss line removal with the primary and nephrology teams. If unable to remove, would highly recommend Vancomycin lock therapy to help minimize colonization of the catheter. Currently on Vancomycin. SNOMED Code(s): 2608111 (3) Abdominal pain Current Visit: Yes Status: Acute Location: Generalized, worse in the RUQ, RLQ, and flank. Etiology: Unclear. CT of the abdomen and pelvis negative for acute abnormality, both with and without contrast. LFTs were normal. Amylase and lipase normal. Appears MSK related. Pain management per the primary team. Qualifiers: Abdominal location: right upper quadrant Qualified Code(s): R10.11 - Right upper quadrant pain SNOMED Code(s): 64124944 (4) Acute on chronic congestive heart failure Current Visit: No Status: Chronic CXR showed mild pulmonary edema. BNP elevated at 492. Known history of CHF. TTE completed 03/2018 showed EF 55%-60%. Repeat TTE showed an EF of 60-65%. Further workup and management per the primary team. SNOMED Code(s): 450485338, 50035911386543 (5) Lung nodules Current Visit: No Status: Acute Chronic, noted on imaging 2017. Repeat CT unchanged. SNOMED Code(s): 148908616 (6) Anemia Current Visit: No Status: Chronic Qualifiers: Anemia type: unspecified type Qualified Code(s): D64.9 - Anemia, unspecified SNOMED Code(s): 526747756 (7) History of CVA (cerebrovascular accident) Current Visit: No Status: Chronic SNOMED Code(s): 489998911 (8) ESRD (end stage renal disease) on dialysis Current Visit: No Status: Chronic HD M/W/F since 2017. Perma-cath noted without evidence of infection. Follows with Dr. Lam. Nicole Nephrology consulted. SNOMED Code(s): 369264734 (9) COPD (chronic obstructive pulmonary disease) Current Visit: No Status: Chronic Qualifiers: COPD type: unspecified COPD Qualified Code(s): J44.9 - Chronic obstructive pulmonary disease, unspecified SNOMED Code(s): 98838873 (10) Insulin dependent type 2 diabetes mellitus Current Visit: No Status: Chronic SNOMED Code(s): 092221967 (11) Blister of leg Current Visit: Yes Status: Acute Location: Bilateral lower extremities. Bullous lesions noted to the bilateral lower extremities with what appears to be purulent drainage noted inside the blisters. Etiology: Unclear. 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 X-rays negative for calcifications. Podiatry consulted. 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 Wound cultures are pending. SNOMED Code(s): 710433743, 660574274, 194774295 - Recommendations Recommendations: Await blood cultures to finalize. Await wound cultures. ESRD per the nephrology team. Consider removal of the Perma-cath after next HD session with line holiday to follow. If unable to perform line holiday/exchange, would highly recommend Vanc lock therapy. Will discuss with Nephrology. Continue Vancomycin IV. Pharmacy to dose. Goal trough ~15. Duration of treatment depends on the clinical picture. Monitor renal function and for drug toxicity and dose-adjust antibiotics. Consult Discharge Plan - Plan Referrals: Therese Garcia CNP [Primary Care Provider] - 11/06/18 3:15 pm (sent web request on 10-29-18 @ 1899 Office called back and Therese Garcia does home visits with this patient)
[2018-11-01] MEDS: *HR* LORazepam 0.5 MG TABLET PO PRN ×2 (12:07→22:30)
[2018-11-01] MEDS: Nystatin POWDER 30 GM BOTTLE TP SCH ×2 (13:20→22:55)
--- NOTE | 2018-11-01 15:14 | Event Note ---
Date of Encounter: 11/01/18 Time of Encounter: 15:13 ID recommending to salvage to permcath line. Will proceed with the vacomycin lock at the end of dialysis tomorrow and then through the weekend until her next HD session on Monday.
--- NOTE | 2018-11-01 23:38 | Nephrology Progress Note ---
Date of Encounter: 11/01/18 Time of Encounter: 12:00 - Assessment and Plan (1) ESRD (end stage renal disease) on dialysis Current Visit: No Status: Chronic Next HD tomorrow Lytes stable Continue fluid restriction Continue strict I/Os LE lesions concerning for calciphylasix though no ulcers noted yet but might be first stage. Treated with a dose sodium thiosulfate after HD, not sure should continue at this time (2) Tracheostomy dependent Current Visit: Yes Status: Acute per primary (3) Acute and chronic respiratory failure ([id number]) Current Visit: No Status: Acute per primary, resolved Qualifiers: Respiratory failure complication: hypoxia Qualified Code(s): J96.21 - Acute and chronic respiratory failure with hypoxia (4) Sepsis Current Visit: No Status: Acute Abx per primary team and ID Discussed permcath salvage with vanco in catheter for dwells due to pt frail state with ID and hold off on permcath removal for now, though if needed will exchange vs planned catheter holiday Qualifiers: Sepsis type: Streptococcus, other Qualified Code(s): A40.8 - Other streptococcal sepsis Subjective Principal diagnosis: Bilateral lower extremity bullae Interval history: Pt seen and examined with daughter at bedside with no new complaints. Discussed options for permcath management as discussed with ID. Daughter prefers less invasive options firts and if needed an exchange but not a line holiday. Objective - Vital Signs Vital signs: Vital Signs Temp Pulse Resp BP Pulse Ox 11/01/18 22:45 16 100 11/01/18 20:23 99.1 F 59 16 114/50 100 11/01/18 17:50 62 17 100 11/01/18 16:19 98.6 F 62 16 126/58 100 11/01/18 15:48 16 100 11/01/18 14:50 61 17 100 11/01/18 12:20 100 11/01/18 12:15 64 17 100 11/01/18 11:30 98.9 F 63 16 119/55 94 11/01/18 10:56 18 100 11/01/18 10:20 62 17 100 11/01/18 08:05 79 18 99 11/01/18 07:13 99.1 F 76 17 134/58 100 11/01/18 04:58 14 98 11/01/18 03:47 99.2 F 74 17 129/64 99 10/31/18 23:52 99.4 F 67 17 117/60 100 10/31/18 23:43 15 130/58 100 Intake and Output 11/01/18 11/01/18 11/01/18 07:59 15:59 23:59 Intake Total 0 / 480 480 / 480 0 / 480 Output Total 0 / 0 0 / 0 Balance 0 / 480 480 / 480 0 / 480 Intake: Oral 0 / 480 480 / 480 0 / 480 Output: Urine 0 / 0 0 / 0 Other: Meal Lunch Percent of Meal Consumed 100% Stool Size Large Stool Consistency loose Stool Color Yellow Weight 69.2 kg Blood Glucose* 251 128 275 Patient Weight 11/01/18 23:59 Weight 69.2 kg - General Appearance General appearance: Present: chronically ill, fatigue, frail (+trach) EENT: Present: ATNC, mucous membranes moist Neck: Present: no JVD, supple Respiratory: Present: course breath sounds Cardiology: Present: no edema (LE with dressing bilat), normal S1, normal S2 Dialysis Vascular Access: Venous Catheter (permcath) Gastrointestinal: Present: no tenderness, no guarding Integumentary: Present: warm and dry, ecchymotic, skin tear Neurologic: Present: no focal deficit Musculoskeletal: Present: no deformities Psychiatric: Present: cooperative - Lab 11/01/18 03:45 11/01/18 03:45 Consult Discharge Plan - Plan Referrals: Therese Garcia CNP [Primary Care Provider] - 11/06/18 3:15 pm (sent web request on 10-29-18 @ [facility] Office called back and Therese Garcia does home visits with this patient)
[2018-11-02] MEDS: Ipratropium/Albuterol Neb 3 ML IH SCH ×4 (03:31→22:53)
[2018-11-02 04:03] LABS: Hemoglobin 8.1 g/dL (11.5-15.4); Mean Platelet Volume 10.1 fL (9.4-12.4)
[2018-11-02 04:04] LABS: Hematocrit 28.8 % (35.3-44.9); Mean Corpuscular HGB Conc 28.1 g/dL (31.6-35.5); Mean Corpuscular Hemoglobin 22.3 pg (28.0-33.3); Mean Corpuscular Volume 79.3 fL (83.0-100.0); Platelet Count 366 K/mcL (140-400); Red Blood Count 3.63 M/mcL (3.82-4.97); Red Cell Distribution Width 20.3 % (11.5-14.5); White Blood Count 12.8 K/mcL (4.3-11.1)
[2018-11-02 04:22] LABS: Calcium 7.9 mg/dL (8.6-10.3); Potassium 4.3 mEq/L (3.5-5.1)
[2018-11-02] MEDS ORDERED: 0.9 % Sodium Chloride 250 ML IVC PRN (08:30)
[2018-11-02] MEDS: predniSONE 20 MG TABLET PO SCH (08:47)
[2018-11-02] MEDS: Apixaban 2.5 MG TABLET PO SCH ×2 (08:47→20:13)
[2018-11-02] MEDS: Renal Vitamin 1 CAP CAPSULE PO SCH (08:47)
[2018-11-02] MEDS: Insulin LISPRO 300 UNITS/3 ML VIAL SQ SCH ×4 (08:48→23:59)
[2018-11-02] MEDS: *HR* Acetaminophen w/Cod 300-30 mg 1 TAB TABLET PO PRN ×3 (08:50→23:59)
[2018-11-02] MEDS: Insulin DETEMIR 100 UNIT/ML X5UNITS SQ SCH (08:52)
[2018-11-02] MEDS: Nystatin POWDER 30 GM BOTTLE TP SCH ×2 (08:52→23:58)
--- NOTE | 2018-11-02 10:09 | Discharge Summary ---
<Oumar Leon - Last Filed: 11/02/18 11:01> Orders not resulted at time of discharge: Pending orders 10/25/18 16:28 Urinalysis reflex Microscopic [URIN] Routine 10/25/18 18:09 Viral Culture,Respiratory [RM] Routine 10/29/18 05:28 Antiphospholipid Ab High Spec AM 0400 10/30/18 05:40 Culture,Blood [BC] AM 04010/30/18 13:45 Culture,Anaerobic [RM] Routine 11/02/18 18:00 Renal Function Panel QMWF 11/03/18 04:00 Basic Metabolic Panel AM 0400 CBC no Diff [Complete Blood Count w/o Diff] [HEME] AM 04011/04/18 04:00 Basic Metabolic Panel AM 0400 CBC no Diff [Complete Blood Count w/o Diff] [HEME] AM 04011/05/18 04:00 Basic Metabolic Panel AM 0400 CBC no Diff [Complete Blood Count w/o Diff] [HEME] AM 0400 11/05/18 18:00 Renal Function Panel QMWF 11/07/18 18:00 Renal Function Panel QMWF 11/09/18 18:00 Renal Function Panel QMWF 11/12/18 18:00 Renal Function Panel QMWF 11/14/18 18:00 Renal Function Panel QMWF Date of Encounter: 11/02/18 Time of Encounter: 08:30 - Discharge Diagnosis (1) Dyspnea Priority: Primary Status: Acute Qualifiers: Qualified Code(s): R06.00 - Dyspnea, unspecified (2) Bacteremia Priority: Primary Status: Acute (3) CKD (chronic kidney disease) stage V requiring chronic dialysis Priority: Primary Status: Chronic (4) Calciphylaxis Priority: Primary Status: Suspected (5) Tracheostomy dependent Priority: Secondary Status: Acute (6) Afib Priority: Secondary Status: Chronic Qualifiers: Atrial fibrillation type: chronic Qualified Code(s): I48.2 - Chronic atrial fibrillation (7) T2DM (type 2 diabetes mellitus) Priority: Secondary Status: Chronic Qualifiers: Chronic kidney disease stage: on chronic dialysis Qualified Code(s): E11.22 - Type 2 diabetes mellitus with diabetic chronic kidney disease; N18.6 - End stage renal disease; Z79.4 - bed bug exterminator (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 (8) Pustular lesion Priority: Primary Status: Acute (9) Hypertension Priority: Primary Status: Chronic Qualifiers: Hypertension type: essential hypertension Qualified Code(s): I10 - Essential (primary) hypertension (10) COPD (chronic obstructive pulmonary disease) Priority: Primary Status: Chronic Qualifiers: COPD type: unspecified COPD Qualified Code(s): J44.9 - Chronic obstructive pulmonary disease, unspecified (11) Iron deficiency anemia Priority: Secondary Status: Acute Qualifiers: Iron deficiency anemia type: unspecified iron deficiency Qualified Code(s): D50.9 - Iron deficiency anemia, unspecified (12) DVT prophylaxis Priority: Primary Status: Acute Hospital course: Ms. Parks is a 78 year old female with a past medical history of ESRD on dialysis, CHF, type 2 diabetes mellitus, and hypertension that presented for shortness of breath on 10/25/18. She has a tracheostomy tube in place. patient was reported having difficulty breathing and swelling in her lower extremities for the past 2 days. When patient presented to the ER today demonstrated a leukocytosis of 23.4. She was afebrile and had stable vital signs. She also did demonstrate some mild hypokalemia and hyponatremia. Troponin levels were not elevated. She did exhibit a mild elevation in BNP at 492. INR was subtherapeutic at 1.8. Chest x-ray showed mild pulmonary edema that was slightly increased from prior. She also demonstrated a new bandlike opacity in the left lung base signifying possible pneumonitis. Patient was initially treated for CHF exacerbation however pro-calcitonin levels came back high and bacterial etiology was suspected. Blood cultures were taken and showed positive for enterococcus and wound cultures were positive for group B strep. Infectious disease was brought on board. Patient was started on vancomycin. Source of infection was unclear at this time so a CT of the abdomen was ordered in order to rule out an abscess. The initial CT showed no abscess and a follow- up CT with IV contrast again showed no abscess. Patient also exhibited pustular lesions on her lower extremities. X-rays showed beginning stages of calciphylaxis. She was started on sodium thiosulfate. Wound cultures were positive for Grop B Strep. Bacteremia source is likely the ther HD catheter. Discussed with ID and the recommended to salvage the catheter and attempt a vancomycin lock for 3 days after dialysis today. WBC count has been steadily decreasing. She has remained afebrile. When seen today, patient denied any SOB, chest pain, or wheezing. Denied any nausea or vomiting. Admitted to minor abdominal discomfort which has been at her baseline level. Patient will be discharged home today where she lives with her daughter and will receive home health services. Patient will need to follow-up with her HD treatments on her regular MWF schedule. She will be receiving IV vancomycin for 4 weeks during her dialysis visits. Patient will continue to receive the sodium thiosulfate until she can follow-up with her district attorney to see if she needs to continue to take it. Patient will need to follow-up with her district attorney in the next 3 days and will need to follow-up with her PCP in the next 3-5 days. - Time Spent with Patient Total time spent providing and/or coordinating discharge services: Time spent: Greater than 30 minutes - Discharge Medications Prescriptions: New Vancomycin/0.9 % Sod Chloride [Vanco 500 mg/100 ml-0.9% NaCl] 500 mg IV 2XW #8 froz.piggy Vancomycin/0.9 % Sod Chloride [Vanco 750 mg/150 ml-0.9% NaCl] 750 mg IV QWEEK #4 froz.piggy Continued Ipratropium/Albuterol Neb [Duoneb] 3 ml IH Q6HR PRN PRN Reason: Shortness Of Breath Ascorbate Calcium [Vitamin C] 500 mg PO DAILY Atorvastatin Calcium [Lipitor] 20 mg PO HS Guaifenesin [Mucinex] 600 mg PO BID Insulin LISPRO [HumaLOG] 0 - 10 units SQ TIDAC LORazepam [Ativan] 0.5 mg PO TID PRN PRN Reason: Anxiety Darbepoetin [Aranesp] 80 mcg IV WE Albuterol Sulfate [Proventil Hfa] 2 puff IH Q6H PRN PRN Reason: Wheezing Albuterol Neb [Proventil Neb] 2.5 mg IH Q2H PRN PRN Reason: Shortness Of Breath Pantoprazole Sodium [Protonix] 40 mg PO BID Renal Vitamin [Renal Caps Softgel] 1 mg PO DAILY Calcitriol 0.5 mcg PO MOWEFR Insulin Degludec [Tresiba Flextouch U-100] 20 unit SQ DAILY Metoprolol [Lopressor] 12.5 mg PO BID MDD HOLD SYSTOLIC <100 PULSE<60 Budesonide/Formoterol 160/4.5 [Symbicort 160/4.5] 2 puff IH BIDR Buspirone HCl [Buspar] 15 mg PO BID Lanthanum Carbonate [Fosrenol] 1,000 mg PO TIDWM Venlafaxine [Effexor] 37.5 mg PO DAILY Amiodarone [Cordarone] 200 mg PO DAILY Diclofenac Sodium [Voltaren] 1 appl TP QID predniSONE [PredniSONE] 7 mg PO DAILY Sennosides [Senna] 8.6 mg PO DAILY PRN PRN Reason: Constipation Apixaban [Eliquis] 2.5 mg PO DAILY Oxycodone HCl/Acetaminophen [Percocet 5-325 mg Tablet] 1 each PO Q6-8H PRN PRN Reason: Pain Acetaminophen w/Cod 300-30 mg [Tylenol w/Codeine #3] 1 tab PO Q6H PRN PRN Reason: Pain Home Medications: Ipratropium/Albuterol Neb [Duoneb] 3 ml IH Q6HR PRN 08/22/16 [History] Ascorbate Calcium [Vitamin C] 500 mg PO DAILY 01/31/17 [History] Atorvastatin Calcium [Lipitor] 20 mg PO HS 01/31/17 [History] Guaifenesin [Mucinex] 600 mg PO BID 01/31/17 [History] Insulin LISPRO [HumaLOG] 0 - 10 units SQ TIDAC 01/31/17 [History] LORazepam [Ativan] 0.5 mg PO TID PRN 01/31/17 [History] Albuterol Sulfate [Proventil Hfa] 2 puff IH Q6H PRN 07/06/17 [History] Darbepoetin [Aranesp] 80 mcg IV WE 07/06/17 [History] Albuterol Neb [Proventil Neb] 2.5 mg IH Q2H PRN 07/19/17 [History] Pantoprazole Sodium [Protonix] 40 mg PO BID 07/19/17 [History] Renal Vitamin [Renal Caps Softgel] 1 mg PO DAILY 07/19/17 [History] Budesonide/Formoterol 160/4.5 [Symbicort 160/4.5] 2 puff IH BIDR 03/07/18 [History] Calcitriol 0.5 mcg PO MOWEFR 03/07/18 [History] Insulin Degludec [Tresiba Flextouch U-100] 20 unit SQ DAILY 03/07/18 [History] Metoprolol [Lopressor] 12.5 mg PO BID MDD HOLD SYSTOLIC <100 PULSE<60 03/07/18 [History] Amiodarone [Cordarone] 200 mg PO DAILY 09/04/18 [History] Buspirone HCl [Buspar] 15 mg PO BID 09/04/18 [History] Lanthanum Carbonate [Fosrenol] 1,000 mg PO TIDWM 09/04/18 [History] Venlafaxine [Effexor] 37.5 mg PO DAILY 09/04/18 [History] Apixaban [Eliquis] 2.5 mg PO DAILY 10/25/18 [History] Diclofenac Sodium [Voltaren] 1 appl TP QID 10/25/18 [History] Oxycodone HCl/Acetaminophen [Percocet 5-325 mg Tablet] 1 each PO Q6-8H PRN 10/25/18 [History] Sennosides [Senna] 8.6 mg PO DAILY PRN 10/25/18 [History] predniSONE [PredniSONE] 7 mg PO DAILY 10/25/18 [History] Acetaminophen w/Cod 300-30 mg [Tylenol w/Codeine #3] 1 tab PO Q6H PRN 10/26/18 [History] Vancomycin/0.9 % Sod Chloride [Vanco 500 mg/100 ml-0.9% NaCl] 500 mg IV 2XW #8 froz.piggy 11/02/18 [Rx] Vancomycin/0.9 % Sod Chloride [Vanco 750 mg/150 ml-0.9% NaCl] 750 mg IV QWEEK #4 froz.piggy 11/02/18 [Rx] Allergies/Adverse Reactions: Allergy/AdvReac Type Severity Reaction Status Date / Time aspirin [ASA] Allergy Swelling Verified 10/26/18 13:34 of Lip/Tongue/Throat NSAIDS (Non-Steroidal Allergy Swelling Verified 10/26/18 13:34 Anti-Inflamma of Lip/Tongue/Throat Penicillins Allergy Swelling Verified 10/26/18 13:34 of Lip/Tongue/Throat azithromycin AdvReac Fever Verified 10/26/18 13:34 iron AdvReac Unknown Verified 10/26/18 13:34 Date of admission: 10/25/18 16:33 Primary care physician: Therese Garcia CNP Consults: 10/25/18 14:18 Consult to Nephrology [CONS] Stat Consulting Provider: [facility]ney Nicole/NICHOLE/CARMELO/LAURENCE Reason for Consult: ESRD on dialysis Time Notified: 14:18 Call Completed: Yes 10/25/18 17:45 Consult to Dialysis [CONS] ONCE 10/26/18 08:59 Consult to Infectious Diseases [CONS] Routine Consulting Provider: Infectious Disease Nicole Reason for Consult: ESRD patient admitted for CHF exacerbation that is postive for bacteremia. Call Completed: Yes 10/27/18 08:45 Consult to Dialysis [CONS] ONCE 10/29/18 08:45 Consult to Dialysis [CONS] ONCE 10/30/18 09:17 Consult to Podiatry [CONS] Routine Consulting Provider: [facility] Reason for Consult: Pustules on LE b/l Time Notified: 09:18 Call Completed: Yes 10/31/18 08:15 Consult to Dialysis [CONS] ONCE 11/01/18 11:40 Consult to Physical Therapy [CONS] Routine Comment: Evaluate, develop and implement POC Reason for Consult: Need evaluation for recommendations on discharge. Does patient have active BEDREST order?: Yes Is patient medically & hemodynamically stable?: Yes Patient assessed for mobility or mobilized this visit?: Yes 11/01/18 13:52 Consult to Occupational Therapy [CONS] Routine Comment: Evaluate, develop and implement POC Reason for Consult: evaluate for discharge needs Does patient have active BEDREST order?: No Is patient medically & hemodynamically stable?: Yes 11/02/18 08:30 Consult to Dialysis [CONS] ONCE Discharging clinician: Oumar Leon Anticipated date of discharge: 11/02/18 - Constitutional Vitals: Temp Pulse Resp BP Pulse Ox 98.6 F 63 16 145/63 99 11/02/18 05:00 11/02/18 05:00 11/02/18 05:00 11/02/18 05:00 11/02/18 05:00 Exam: GENERAL APPEARANCE: Frail, alert and cooperative, and appears to be in no acute distress. HEAD: normocephalic. EYES: vision is grossly intact. EARS: hearing grossly intact. NOSE: No nasal discharge. THROAT: Oral cavity and pharynx normal. No inflammation, swelling, exudate, or lesions. NECK: Neck supple, non-tender without lymphadenopathy, masses or thyromegaly. CARDIAC: Normal S1 and S2. No S3, S4 or murmurs. Rhythm is regular. There is no cyanosis or pallor. Extremities are warm and well perfused. Capillary refill is less than 2 seconds. No carotid bruits. LUNGS: Crackles, rhales, and wheezing b/l. ABDOMEN: Positive bowel sounds. Soft, mild tenderness with deep palpation diffusely. Mild distension. No guarding or rebound. No masses. MUSKULOSKELETAL: No joint erythema or tenderness. Normal muscular development. EXTREMITIES: No significant deformity or joint abnormality. Peripheral pulses intact. No varicosities. No pitting edema of the LE b/l. LOWER EXTREMITY: Examination of both feet reveals R toe bandaged from chronic pressure ulcer. Distal capillary filling of less than 2 seconds without tenderness, swelling, discoloration, nodules, weakness or deformity; examination of both ankles, knees, legs, and hips reveals normal range of motion, normal sensation without tenderness, swelling, discoloration, crepitus, weakness or deformity. SKIN: Skin shows multiple superficial vessel bleeds. LE bandaged and intact. No active bleeding. PSYCHIATRIC: The mental examination revealed the patient was oriented to person, place, and time. - Patient Status Disposition: Home Health Service Condition: Fair Functional capacity at discharge: bed bound Overall status at discharge: patient is progressing back to baseline - Discharge Instructions Instructions: Pneumonia (DC) Follow Up With: Thai Peraza [Non-Partnered Physician] - (This patient is a dialysis patient and they see her in Dialysis) Garcia,Therese Mccormick CNP [Primary Care Provider] - 11/06/18 3:15 pm (sent web request on 10-29-18 @ 1038 Office called back and Therese Garcia does home visits with this patient) - Diet and Activity Activity: as per physical therapy Diet: low salt diet <Turner Oneil - Last Filed: 11/02/18 14:12> Orders not resulted at time of discharge: Pending orders 10/25/18 16:28 Urinalysis reflex Microscopic [URIN] Routine 10/25/18 18:09 Viral Culture,Respiratory [RM] Routine 10/29/18 05:28 Antiphospholipid Ab High Spec AM 0400 10/30/18 05:40 Culture,Blood [BC] AM 04010/30/18 13:45 Culture,Anaerobic [RM] Routine 11/02/18 18:00 Renal Function Panel QMWF 11/03/18 04:00 Basic Metabolic Panel AM 0400 CBC no Diff [Complete Blood Count w/o Diff] [HEME] AM 0400 11/04/18 04:00 Basic Metabolic Panel AM 0400 CBC no Diff [Complete Blood Count w/o Diff] [HEME] AM 04011/05/18 04:00 Basic Metabolic Panel AM 0400 CBC no Diff [Complete Blood Count w/o Diff] [HEME] AM 0400 11/05/18 18:00 Renal Function Panel QMWF 11/07/18 18:00 Renal Function Panel QMWF 11/09/18 18:00 Renal Function Panel QMWF 11/12/18 18:00 Renal Function Panel QMWF 11/14/18 18:00 Renal Function Panel QMWF Date of Encounter: 11/02/18 - Discharge Diagnosis (1) Sepsis Status: Acute Qualifiers: Qualified Code(s): A40.8 - Other streptococcal sepsis (2) Acute and chronic respiratory failure ([id number]) Status: Acute Qualifiers: Qualified Code(s): J96.21 - Acute and chronic respiratory failure with hypoxia (3) COPD (chronic obstructive pulmonary disease) Status: Chronic Qualifiers: Qualified Code(s): J44.9 - Chronic obstructive pulmonary disease, unspecified (4) Calciphylaxis Status: Suspected (5) BRANDY (iron deficiency anemia) Status: Suspected Qualifiers: Qualified Code(s): D50.0 - Iron deficiency anemia secondary to blood loss (chronic) (6) Diabetes mellitus Status: Chronic Qualifiers: Qualified Code(s): E11.22 - Type 2 diabetes mellitus with diabetic chronic kidney disease; N18.6 - End stage renal disease; Z79.4 - bed bug exterminator (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 Hospital course: Ms. Parks is a 78 year old female - Time Spent with Patient Total time spent providing and/or coordinating discharge services: Date of admission: 10/25/18 16:33 Primary care physician: Therese Garcia CNP Consults: 10/25/18 14:18 Consult to Nephrology [CONS] Stat Consulting Provider: Hallie Rivera/NICHOLE/CARMELO/LAURENCE Reason for Consult: ESRD on dialysis Time Notified: 14:18 Call Completed: Yes 10/25/18 17:45 Consult to Dialysis [CONS] ONCE 10/26/18 08:59 Consult to Infectious Diseases [CONS] Routine Consulting Provider: Infectious Disease Nicole Reason for Consult: ESRD patient admitted for CHF exacerbation that is postive for bacteremia. Call Completed: Yes 10/27/18 08:45 Consult to Dialysis [CONS] ONCE 10/29/18 08:45 Consult to Dialysis [CONS] ONCE 10/30/18 09:17 Consult to Podiatry [CONS] Routine Consulting Provider: [facility] Reason for Consult: Pustules on LE b/l Time Notified: 09:18 Call Completed: Yes 10/31/18 08:15 Consult to Dialysis [CONS] ONCE 11/01/18 11:40 Consult to Physical Therapy [CONS] Routine Comment: Evaluate, develop and implement POC Reason for Consult: Need evaluation for recommendations on discharge. Does patient have active BEDREST order?: Yes Is patient medically & hemodynamically stable?: Yes Patient assessed for mobility or mobilized this visit?: Yes 11/01/18 13:52 Consult to Occupational Therapy [CONS] Routine Comment: Evaluate, develop and implement POC Reason for Consult: evaluate for discharge needs Does patient have active BEDREST order?: No Is patient medically & hemodynamically stable?: Yes 11/02/18 08:30 Consult to Dialysis [CONS] ONCE - Constitutional Vitals: Temp Pulse Resp BP Pulse Ox 98.6 F 63 18 99/49 99 11/02/18 10:50 11/02/18 05:00 11/02/18 10:50 11/02/18 13:05 11/02/18 05:00 - Attending Attestation I examined this patient and my medical decision-making was reviewed with the Resident Physician. I agree with the documented findings, disposition and treatment plan as described except to the extent set forth below. Continue examined at bedside. Patient states that she feels pretty good today. She does state that she feels weak. Otherwise she denies any abdominal pain, fever, chills. She is able get up to the chair yesterday. On exam she is alert and oriented 3, heart is regular rate and rhythm, abdomen is soft, nontender. PermaCath site has no overlying erythema or drainage. Sepsis secondary to bacteremia with presumed source to be permacath: Overall the patient appears to be improving on IV vancomycin. Discussed with ID and nephrology and plan is for IV vancomycin as an outpatient with vancomycin lock therapy. Will set up as an outpatient. Chronic respiratory failure: Patient has a tracheostomy and is on trach mask during the day with ventilator at night. Discussed with family who are adamant that they will be taking the patient home and they have plenty of support at home with home health. Time spent on discharge: 60 minutes
--- NOTE | 2018-11-02 10:19 | Infectious Disease Progress No ---
ID Progress Note Date of Encounter: 11/02/18 Time of Encounter: 10:16 - Subjective Subjective: Patient seen and examined with daughter at bedside. No acute events noted overnight. Patient states she feels better today. She denies fevers, chills, rigors. States shortness of breath and cough are at baseline. Complains of pain in the right abdomen. Denies abdominal pain this morning unless she moves, then she has pain in her right side. She is anuric secondary to her end-stage renal disease. States her appetite is better today. Pending discharge after HD today. - Objective CBC & Chem 7: 11/02/18 03:55 11/02/18 03:55 - Line Documentation Line Documentation: Dialysis Catheter (Perma-cath noted to the right upper chest with transparent dressing C/D/I.) - Exam Vitals: Temp Pulse Resp BP Pulse Ox 98.6 F 63 16 145/63 99 11/02/18 05:00 11/02/18 05:00 11/02/18 05:00 11/02/18 05:00 11/02/18 05:00 Exam: Head: Atraumatic, normal inspection, normocephalic. Eye: EOMI, PERRLA, no scleral icterus noted. ENT: Mucous membranes moist. No odontogenic infection noted. Neck: Normal inspection, no meningismus. Tracheostomy midline. Respiratory: Scattered rhonchi throughout. No rales, respiratory distress, or wheezes noted. O2 via trach mask. Cardiovascular: Regular rate and rhythm, S1 and S2 audible. No murmurs, rubs, or gallops. GI: Soft, nondistended, normal bowel sounds. Non-tender. Extremities: No joint swelling or tenderness noted. 1+ edema noted to the BLE. Neurological: Alert, oriented 3, no focal deficits. Psychiatric: normal affect, normal mood. Skin: Dry, intact, warm. Normal color. Multiple superficial skin tears noted to the BUE and BLE. Multiple areas of ecchymosis noted to the BUE and BLE. Bilateral foot and ankle dressings C/D/I. Additional exam findings: Perma-cath noted to the right upper chest with transparent dressing C/D/I. No erythema, warmth, tenderness, or drainage noted. - Assessment and Plan (1) Leukocytosis Current Visit: No Status: Acute WBC 23.4 with neutrophilic predominance on admission. Likely secondary to bacteremia. Improved. Continue to trend. Qualifiers: Qualified Code(s): D72.829 - Elevated white blood cell count, unspecified SNOMED Code(s): 919465600, 205474134 (2) Bacteremia Current Visit: Yes Status: Acute Causative organism: GBS and Enterococcus faecalis. Source: Unclear --> HD catheter vs. intra-abdominal vs. leg wounds vs. other. Blood cultures drawn 10/25/18 (peripheral) are positive 2/2 for Enteroccocus and GBS. Repeat blood cultures drawn 10/26/18 are positive x 2 sets for GBS and E. faecalis. Blood cultures from 10/28/18 for also positive 2 sets for E. faecalis only. Blood cultures drawn 10/30/18 are NGTD x 2 sets. Clinically, the perma-cath does not appear infected, but high index of suspicion that this is the source and/or seeded given the persistent bacteremia without additional source identified. No cultures were drawn from the Perma-cath. The patient does have an implanted loop recorder, but no other hardware. No endocarditis stigmata noted on exam. Abdominal pain concerning for intra-abdominal source, but CT of the abdomen and pelvis was negative, both with and without contrast. TTE was negative for valvular vegetations. Discussed with nephrology, Dr. Carney, who agrees that it is high risk for the patient to undergo line exchange, although, this does put her at high risk for seeding of the catheter. To help minimize this, we will pursue giving vancomycin at dialysis through the permacath as well as bank lock therapy to do well after each dialysis session for the duration of IV antibiotic therapy. Currently on Vancomycin. SNOMED Code(s): 1778202 (3) Abdominal pain Current Visit: Yes Status: Acute Location: Generalized, worse in the RUQ, RLQ, and flank. Etiology: Unclear. CT of the abdomen and pelvis negative for acute abnormality, both with and without contrast. LFTs were normal. Amylase and lipase normal. Appears MSK related. Pain management per the primary team. Qualifiers: Qualified Code(s): R10.11 - Right upper quadrant pain SNOMED Code(s): 94143130 (4) Acute on chronic congestive heart failure Current Visit: No Status: Chronic CXR showed mild pulmonary edema. BNP elevated at 492. Known history of CHF. TTE completed 03/2018 showed EF 55%-60%. Repeat TTE showed an EF of 60-65%. Further workup and management per the primary team. SNOMED Code(s): 456407740, 62106768229912 (5) Lung nodules Current Visit: No Status: Acute Chronic, noted on imaging 2017. Repeat CT unchanged. SNOMED Code(s): 768062797 (6) Anemia Current Visit: No Status: Chronic Qualifiers: Qualified Code(s): D64.9 - Anemia, unspecified SNOMED Code(s): 309080937 (7) History of CVA (cerebrovascular accident) Current Visit: No Status: Chronic SNOMED Code(s): 410575048 (8) ESRD (end stage renal disease) on dialysis Current Visit: No Status: Chronic HD M/W/F since 2016. Perma-cath noted without evidence of infection. Follows with Dr. Lam. [facility] Nephrology consulted. SNOMED Code(s): 923341408 (9) COPD (chronic obstructive pulmonary disease) Current Visit: No Status: Chronic Qualifiers: Qualified Code(s): J44.9 - Chronic obstructive pulmonary disease, unspecified SNOMED Code(s): 53048228 (10) Insulin dependent type 2 diabetes mellitus Current Visit: No Status: Chronic SNOMED Code(s): 992180691 (11) Blister of leg Current Visit: Yes Status: Acute Location: Bilateral lower extremities. Bullous lesions noted to the bilateral lower extremities with what appears to be purulent drainage noted inside the blisters. Etiology: Unclear. 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 X-rays negative for calcifications. Podiatry consulted. 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 Wound cultures are positive for GBS. Currently on Vancomycin. SNOMED Code(s): 451308813, 408899459, 971795671 - Recommendations Recommendations: Await blood cultures to finalize. Wound care per Podiatry recommendations. ESRD per the nephrology team. Will plan to attempt line salvage with Vanc given at HD and vanc lock therapy. Continue Vancomycin IV. Pharmacy to dose. Goal trough ~15. Duration of treatment depends on the clinical picture, but likely a total of 4 weeks since we are attempting catheter salvage and source is not entirely clear. Recommend treating through 11/27/18. Monitor renal function and for drug toxicity and dose-adjust antibiotics. Will need weekly CBC, BUN/Cr, Vanc trough. No IV care needed since getting IV antibiotics at HD. Consult Discharge Plan - Plan Referrals: Therese Garcia CNP [Primary Care Provider] - 11/06/18 3:15 pm (sent web request on 10-29-18 @ 1038 Office called back and Therese Garcia does home visits with this patient)
[2018-11-02] MEDS: Budesonide/Formoterol 160/4.5 1 PUFF INH IH SCH ×2 (11:05→22:53)
--- NOTE | 2018-11-02 14:12 | Physician Discharge Referral ---
Home Health/Hosp Referral Info Transfer to: Home Health Provider in Charge Post Discharge: PCP - Diagnosis (1) Dyspnea Priority: Primary Status: Acute (2) Bacteremia Priority: Primary Status: Acute (3) CKD (chronic kidney disease) stage V requiring chronic dialysis Priority: Primary Status: Chronic (4) Calciphylaxis Priority: Primary Status: Suspected (5) Tracheostomy dependent Priority: Secondary Status: Acute (6) Afib Priority: Secondary Status: Chronic (7) T2DM (type 2 diabetes mellitus) Priority: Secondary Status: Chronic (8) Pustular lesion Priority: Primary Status: Acute (9) Hypertension Priority: Secondary Status: Chronic (10) COPD (chronic obstructive pulmonary disease) Priority: Secondary Status: Chronic (11) Iron deficiency anemia Priority: Secondary Status: Acute - Respiratory Orders Other (Trach Collar. 40% FiO2 3.5 L) Smoking Cessation: Smoking cessation has been advised. For more information, call the [place] [employer] Quit Line at 9-678-VUMN-NOW. - Diet/Nutrition Diet/Nutrition Orders: No Added Salt (TANG), Renal, Cardiac, No Concentrated Sweets - Activity Activity Orders: Chair, Bedrest - Services Needed Following services are medically necessary services: Home Health Aide, Physical Therapy, Occupational Therapy Other Treatments: Patient will need IV supplies and Vancomycin trough labs every Monday. She is to get 500 mg of IV vancomycin every Monday and Monday after dialysis and 750 mg Iv vancomycin every Monday after dialysis. - Transfer Medications Prescriptions: Vancomycin/0.9 % Sod Chloride [Vanco 500 mg/100 ml-0.9% NaCl] 500 mg IV 2XW #8 [email or web address] Vancomycin/0.9 % Sod Chloride [Vanco 750 mg/150 ml-0.9% NaCl] 750 mg IV QWEEK #4 [email or web address] Home Medications: Ipratropium/Albuterol Neb [Duoneb] 3 ml IH Q6HR PRN 08/22/16 [History] Ascorbate Calcium [Vitamin C] 500 mg PO DAILY 01/31/17 [History] Atorvastatin Calcium [Lipitor] 20 mg PO HS 01/31/17 [History] Guaifenesin [Mucinex] 600 mg PO BID 01/31/17 [History] Insulin LISPRO [HumaLOG] 0 - 10 units SQ TIDAC 01/31/17 [History] LORazepam [Ativan] 0.5 mg PO TID PRN 01/31/17 [History] Albuterol Sulfate [Proventil Hfa] 2 puff IH Q6H PRN 07/06/17 [History] Darbepoetin [Aranesp] 80 mcg IV WE 07/06/17 [History] Albuterol Neb [Proventil Neb] 2.5 mg IH Q2H PRN 07/19/17 [History] Pantoprazole Sodium [Protonix] 40 mg PO BID 07/19/17 [History] Renal Vitamin [Renal Caps Softgel] 1 mg PO DAILY 07/19/17 [History] Budesonide/Formoterol 160/4.5 [Symbicort 160/4.5] 2 puff IH BIDR 03/07/18 [History] Calcitriol 0.5 mcg PO MOWEFR 03/07/18 [History] Insulin Degludec [Tresiba Flextouch U-100] 20 unit SQ DAILY 03/07/18 [History] Metoprolol [Lopressor] 12.5 mg PO BID MDD HOLD SYSTOLIC <100 PULSE<60 03/07/18 [History] Amiodarone [Cordarone] 200 mg PO DAILY 09/04/18 [History] Buspirone HCl [Buspar] 15 mg PO BID 09/04/18 [History] Lanthanum Carbonate [Fosrenol] 1,000 mg PO TIDWM 09/04/18 [History] Venlafaxine [Effexor] 37.5 mg PO DAILY 09/04/18 [History] Apixaban [Eliquis] 2.5 mg PO DAILY 10/25/18 [History] Diclofenac Sodium [Voltaren] 1 appl TP QID 10/25/18 [History] Oxycodone HCl/Acetaminophen [Percocet 5-325 mg Tablet] 1 each PO Q6-8H PRN 10/25/18 [History] Sennosides [Senna] 8.6 mg PO DAILY PRN 10/25/18 [History] predniSONE [PredniSONE] 7 mg PO DAILY 10/25/18 [History] Acetaminophen w/Cod 300-30 mg [Tylenol w/Codeine #3] 1 tab PO Q6H PRN 10/26/18 [History] Vancomycin/0.9 % Sod Chloride [Vanco 500 mg/100 ml-0.9% NaCl] 500 mg IV 2XW #8 froz.piggy 11/02/18 [Rx] Vancomycin/0.9 % Sod Chloride [Vanco 750 mg/150 ml-0.9% NaCl] 750 mg IV QWEEK #4 froz.piggy 11/02/18 [Rx] Allergies/Adverse Reactions: Allergy/AdvReac Type Severity Reaction Status Date / Time aspirin [ASA] Allergy Swelling Verified 10/26/18 13:34 of Lip/Tongue/Throat NSAIDS (Non-Steroidal Allergy Swelling Verified 10/26/18 13:34 Anti-Inflamma of Lip/Tongue/Throat Penicillins Allergy Swelling Verified 10/26/18 13:34 of Lip/Tongue/Throat azithromycin AdvReac Fever Verified 10/26/18 13:34 iron AdvReac Unknown Verified 10/26/18 13:34 Certification: Further, I certify that my clinical findings support that this patient is homebound (i.e. absences from home require considerable and taxing effort and are for medical reasons or oriental orthodox services or infrequently or short duration when for other reasons) because: Homebound Reason: Patient requires assistance of a person or device to safely leave home, Leaving home requires considerable and taxing effort due to condition, Severity of cardiac or pulmonary status limits activity tolerance Attestation: My signature below is to certify that this patient is under my care and that I, or nurse practitioner, or a physician's journeyman operator assistant working with me, has a [id number] encounter with this patient.
[2018-11-02] MEDS: HEPARIN IVP SCH (14:25)
[2018-11-02] MEDS: VANCOMYCIN IVP SCH (14:25)
[2018-11-02] MEDS: *HR* Amiodarone 200 MG TABLET PO SCH (15:37)
--- NOTE | 2018-11-02 16:06 | Event Note ---
Date of Encounter: 11/02/18 Time of Encounter: 16:00 [facility] has refused to do IV Vancomycin. As a result, patient will stay over the weekend. Plan to consult IR on Monday to have tunneled central line put in. NPO on Monday night. Most likely can hold eliquis after morning dose on Monday.
--- NOTE | 2018-11-02 16:34 | Nephrology Progress Note ---
Date of Encounter: 11/02/18 Time of Encounter: 11:15 - Assessment and Plan (1) ESRD (end stage renal disease) on dialysis Current Visit: No Status: Chronic ESRD on HD every MWF I reviewed the hand off notes from my colleague: newly diagnosed with Calciphy laxis and an Abx lock technique was started with Vanco plus Vanco thrice weekly. I've ordered to continue the sodium thiosulfate thrice weekly; should avoid Ca containing Rx such as Phoslo and should focus on ideal renal diet that is low in Phos, and of note Warfarin is a boudreaux risk factor for calciphylaxis. Addendum: the pt's outside dialysis unit did not want to give Vanco thrice weekly with dialysis. The pt should not have a PICC and so another option could be a tunneled CVC. Discussed with the hospitalist team. (2) Acute and chronic respiratory failure ([id number]) Current Visit: No Status: Acute per primary, resolved Qualifiers: Respiratory failure complication: hypoxia Qualified Code(s): J96.21 - Acute and chronic respiratory failure with hypoxia (3) Sepsis Current Visit: No Status: Acute Abx per primary team and ID I reviewed the handoff info and Dr. Carney had worked with ID: permcath salvage with vanco in catheter for dwells due to pt frail state with ID and hold off on permcath removal for now, though if needed will exchange vs planned catheter holiday Qualifiers: Sepsis type: Streptococcus, other Qualified Code(s): A40.8 - Other streptococcal sepsis (4) Tracheostomy dependent Current Visit: Yes Status: Acute per primary Subjective Principal diagnosis: Bilateral lower extremity bullae Interval history: The patient was seen and examined during dialysis. One of her daughters was present as well, and I updated them both and answered all their questions. The patient did not affirm active nausea, vomiting, or diarrhea. I also spoke with the patient's hospitalist twice about her care. Objective - Vital Signs Vital signs: Vital Signs Temp Pulse Resp BP Pulse Ox 11/02/18 15:28 20 97 11/02/18 14:35 97.6 F 18 117/53 11/02/18 14:20 104/53 11/02/18 14:05 99/44 11/02/18 13:50 91/40 11/02/18 13:35 99/49 11/02/18 13:20 96/47 11/02/18 13:05 99/49 11/02/18 12:50 112/52 11/02/18 12:35 97/42 11/02/18 12:20 101/38 11/02/18 12:05 93/47 11/02/18 11:50 90/42 11/02/18 11:35 99/46 11/02/18 11:20 115/47 11/02/18 11:05 122/47 11/02/18 10:50 98.6 F 18 112/47 11/02/18 05:00 98.6 F 63 16 145/63 99 11/02/18 03:33 12 95 11/02/18 01:01 98.8 F 58 17 100/67 100 11/01/18 22:45 16 100 11/01/18 20:23 99.1 F 59 16 114/50 100 11/01/18 17:50 62 17 100 Intake and Output 11/02/18 11/02/18 11/02/18 07:59 15:59 23:59 Intake Total 600 / 600 Output Total 3100 / 3100 Balance -2500 / -2500 Intake: Oral 0 / 0 Intake, Rinseback and Flushes 600 / 600 Output: Urine 0 / 0 Total Dialysis (HD) Output 3100 / 3100 Other: Stool Size Copious Stool Consistency loose Stool Characteristics Normal for Patient Stool Color Brown Green # Bowel Movements 1 Blood Glucose* 194 126 Hemodialysis Net Fluid Removed 2500 (mL) - General Appearance General appearance: Present: well-developed, well-nourished, appears started age, obese, chronically ill, fatigue, frail EENT: Present: ATNC, PERRL, mucous membranes moist Additional Comments: trach Respiratory: Present: course breath sounds Cardiology: Present: edema (nontense bilateral pedal edema), regular rate, regular rhythm, normal S1, normal S2 Dialysis Vascular Access: Venous Catheter (right sided; no exit site erythema and the cuff is not exposed) Gastrointestinal: Present: normoactive bowel sounds, obese Integumentary: Present: ecchymotic Neurologic: Present: no focal deficit, no asterixis, alert and oriented x3 Musculoskeletal: Present: erythema, no cyanosis, no clubbing Psychiatric: Present: mood/affect appropriate, cooperative - Lab 11/03/18 05:07 11/03/18 05:07 Consult Discharge Plan - Plan Instructions: Pneumonia (DC) Referrals: Thai Peraza [Non-Partnered Physician] - (This patient is a dialysis patient and they see her in Dialysis) Garcia,Therese Mccormick CNP [Primary Care Provider] - 11/06/18 3:15 pm (sent web request on 10-29-18 @ [facility] Office called back and Therese Garcia does home visits with this patient) Prescriptions: Vancomycin/0.9 % Sod Chloride [Vanco 500 mg/100 ml-0.9% NaCl] 500 mg IV 2XW #8 [email or web address] Vancomycin/0.9 % Sod Chloride [Vanco 750 mg/150 ml-0.9% NaCl] 750 mg IV QWEEK #4 froz.piggy
[2018-11-03] MEDS: Ipratropium/Albuterol Neb 3 ML IH SCH ×4 (04:43→22:24)
[2018-11-03 05:24] LABS: Mean Corpuscular Hemoglobin 22.5 pg (28.0-33.3)
[2018-11-03 05:25] LABS: Hematocrit 33.7 % (35.3-44.9); Mean Corpuscular HGB Conc 26.7 g/dL (31.6-35.5); Mean Corpuscular Volume 84.3 fL (83.0-100.0); Mean Platelet Volume 9.6 fL (9.4-12.4); Platelet Count 294 K/mcL (140-400); Red Cell Distribution Width 21.4 % (11.5-14.5); White Blood Count 12.5 K/mcL (4.3-11.1)
[2018-11-03 05:41] LABS: Albumin 2.8 g/dL (3.5-5.7); Calcium 8.3 mg/dL (8.6-10.3); Phosphorous 2.9 mg/dL (2.7-4.5); Potassium 3.8 mEq/L (3.5-5.1)
[2018-11-03] MEDS: Renal Vitamin 1 CAP CAPSULE PO SCH (08:41)
[2018-11-03] MEDS: Apixaban 2.5 MG TABLET PO SCH ×2 (08:41→20:16)
[2018-11-03] MEDS: *HR* Amiodarone 200 MG TABLET PO SCH (08:41)
[2018-11-03] MEDS: predniSONE 20 MG TABLET PO SCH (08:41)
[2018-11-03] MEDS: Insulin DETEMIR 100 UNIT/ML X5UNITS SQ SCH (08:42)
[2018-11-03] MEDS: Insulin LISPRO 300 UNITS/3 ML VIAL SQ SCH ×4 (08:43→20:16)
[2018-11-03] MEDS: Nystatin POWDER 30 GM BOTTLE TP SCH ×2 (08:50→20:16)
[2018-11-03 09:28] LABS: Antiphospholipid IgG High Spec 7 GPL (0-14); Antiphospholipid IgM High Spec 8 MPL (0-14)
[2018-11-03] MEDS: Budesonide/Formoterol 160/4.5 1 PUFF INH IH SCH ×2 (10:29→22:24)
--- NOTE | 2018-11-03 11:55 | Internal Med Progress Note ---
Hospitalist Progress Note - Encounter Date of Encounter: 11/03/18 Time of Encounter: 08:40 - Subjective Interval History: When seen today patient was resting comfortably in her bed. She denied any chest pain or shortness of breath. Denied any abdominal pain, nausea, or vomiting. Denied any fever. Denied any cough or wheezing. No overnight events were reported. - Exam Vitals: Temp Pulse Resp BP Pulse Ox 98.8 F 76 20 127/55 100 11/03/18 11:19 11/03/18 11:19 11/03/18 11:19 11/03/18 11:19 11/03/18 11:19 Exam: GENERAL APPEARANCE: Frail, alert and cooperative, and appears to be in no acute distress. HEAD: normocephalic. EYES: vision is grossly intact. EARS: hearing grossly intact. NOSE: No nasal discharge. THROAT: Oral cavity and pharynx normal. No inflammation, swelling, exudate, or lesions. NECK: Neck supple, non-tender without lymphadenopathy, masses or thyromegaly. CARDIAC: Normal S1 and S2. No S3, S4 or murmurs. Rhythm is regular. There is no cyanosis or pallor. Extremities are warm and well perfused. Capillary refill is less than 2 seconds. No carotid bruits. LUNGS: Crackles, rhales, and wheezing b/l. ABDOMEN: Positive bowel sounds. Soft, mild tenderness with deep palpation diffusely. Mild distension. No guarding or rebound. No masses. MUSKULOSKELETAL: No joint erythema or tenderness. Normal muscular development. EXTREMITIES: No significant deformity or joint abnormality. Peripheral pulses intact. No varicosities. No pitting edema of the LE b/l. LOWER EXTREMITY: Examination of both feet reveals R toe bandaged from chronic pressure ulcer. Distal capillary filling of less than 2 seconds without tenderness, swelling, discoloration, nodules, weakness or deformity; examination of both ankles, knees, legs, and hips reveals normal range of motion, normal sensation without tenderness, swelling, discoloration, crepitus, weakness or deformity. SKIN: Skin shows multiple superficial vessel bleeds. LE bandaged and intact. No active bleeding. PSYCHIATRIC: The mental examination revealed the patient was oriented to person, place, and time. - Assessment and Plan (1) Dyspnea Current Visit: No Status: Acute Assessment and Plan: Likely secondary to CHF exacerbation and sepsis. Chest x-ray showed pulmonary edema with bandlike opacity in the left lung base. Had an elevated BMP on arrival. Demonstrates left lower extremity swelling, which has improved. Denies any active chest pain. Patient also had elevated D dimers however CTA of the chest ruled out PE. Procalcitonin level was high. Blood cultures revealed gram positive cocci enterocaccus and Group B strep. Patient was started on Rocephin and Vancomycin. Infectious disease was consulted. Recommended continuing with current antibiotic treatment. Echocardiogram showed no significant vavlular dysfunction. Repeat blood cultures from 10/28 continued to show gram positive cocci. 10/30/18: Patient had an O2 desaturation to 82%, which then stabilized to 87%. On exam, there was increased crackles on the L side. A CXR was ordered an revealed small L pleural effusion with adjacent atelectasis which was slightly increased compared to the prior exam. Patient's O2 saturation has increased back to 98% in the afternoon. Plan: - Patient to receive HD treatment Monday. - Strict I/O's. - C/W hemodialysis Monday which will help with her fluid removal. - C/W home medications for COPD: prednisone to 20 mg by mouth daily. - Fluid restriction diet 1500 mL per day. (2) Bacteremia Current Visit: Yes Status: Acute Assessment and Plan: Persistent enterococcal bacteremia. Source is unclear at the moment: HD catheter vs. intra-abdominal vs. other. Perma-cath does not appear infected. Abdominal CT did not reveal an abscess. Patient was c/o swelling/tenderness in R ankle. X-ray did not reveal any evidence of osteomyelitis. Echocardiogram revealed no valvular dysfunction. X-ray of the L ankle as well did not reveal any signs of osteomyelitis. 11/01/18: CT of the abdomen with IV contrast done yesterday and showed no abscess. The source of infection is likely the HD catheter. Nephrology recommended holding off of the permcath removal yesterday due to the patient's frail state. WBC count has been downtrending. Patient afebrile overnight. 11/03/18: ID recommended to salvage permcath line with a vacomycin lock. Dialsysis center refused to comply with vanc treatment without cultures of line. Home health refused IV vanc infusions. Patient to stay over the weekend. Plan: - Consult IR Jim morning to tunneled PICC line placement. - NPO Monday night. - Hold eliquis after Monday AM dose. - INR lab Monday overnight. - C/W Vancomycin. (3) CKD (chronic kidney disease) stage V requiring chronic dialysis Current Visit: No Status: Chronic Assessment and Plan: On hemodialysis Monday schedule. Normally goes to [facility] [place] and has been compliant with her treatments. Labs showed hypokalemia, mild hyponatremia, and creatinine level 2.54 on arrival. Plan: - C/W hemodialysis schedule. - Avoid nephrotoxins. - Renal dose medications. 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 Biopsy not recommeneded at this time. Confirmed with x-ray of LE. Plan: - Nephrology recommends sodium thiosulfate with HD. (5) Tracheostomy dependent Current Visit: Yes Status: Acute Assessment and Plan: On 09/06/2016, she had an extended right colectomy and lysis of adhesions.During this hospitalization she developed acute on chronic respiratory failure, acute, exacerbation of COPD, Acute on chronic kidney injury, bacteremia due to VRE, invasive pulmonary aspergillosis. 09/26/16 and subsequently had endotrachial tube placed. 10/30/18: Informed by patient's daughter that she is overdue for a tracheostomy tube replacement by 1 week. Informed respiratory therapy that will be handling the replacement. (6) Afib Current Visit: No Status: Chronic Assessment and Plan: Rate Controlled. Plan: - C/W amiodarone, metoprolol, and Eliquis. (7) T2DM (type 2 diabetes mellitus) Current Visit: Yes Status: Chronic Assessment and Plan: Insulin dependant. Controlled. Plan: - C/W 20 U Levemir SQ qAM. - C/W insulin correction dose medium scale. (8) Pustular lesion Current Visit: Yes Status: Acute Assessment and Plan: Pustular lesions in LE. Intact without eruption. Wound cultures show Group B Strep. Plan: - C/W vancomycin. - Podiatry on board. - C/W wound care. (9) Hypertension Current Visit: No Status: Chronic Assessment and Plan: BP controlled. Plan: - C/W metoprolol. (10) COPD (chronic obstructive pulmonary disease) Current Visit: No Status: Chronic Assessment and Plan: - C/W home duonebs and albuterol. - Prednisone 20 mg PO. - O2 treatment as needed. (11) Iron deficiency anemia Current Visit: No Status: Acute Assessment and Plan: Hgb at baseline. (12) Lung nodules Current Visit: No Status: Acute Assessment and Plan: Chronic, noted on imaging 2017. Repeat CT unchanged. DVT Prophylaxis: On Eliquis. - Time Spent with Patient Total time spent is greater than 50% in coordination of care (as documented) at patient's floor/unit and/or counseling patient: Internal Medicine: Result - Labs CBC & Chem 7: 11/03/18 05:07 11/03/18 05:07 Labs: Short CBC 11/03/18 Range/Units 05:07 WBC 12.5 H (4.3-11.1) K/mcL Hgb 9.0 L (11.5-15.4) g/dL Hct 33.7 L (35.3-44.9) % Plt Count 294 (140-400) K/mcL BMP 11/03/18 05:07 Sodium 139 Potassium 3.8 Chloride 94 L Carbon Dioxide 19 L BUN 17 Creatinine 2.29 H Glucose 149 H Calcium 8.3 L Liver Function 11/03/18 Range/Units 05:07 Albumin 2.8 L (3.5-5.7) g/dL - ABG Interpretation ABG results: PT/INR, D-dimer PT 20.1 Seconds (9.4-12.1) H 10/25/18 12:38 2430 ng/mLFEU (0-500) H 10/25/18 12:38 Consult Discharge Plan - Plan Instructions: Pneumonia (DC) Referrals: Thai Peraza [Non-Partnered Physician] - (This patient is a dialysis patient and they see her in Dialysis) Therese Garcia CNP [Primary Care Provider] - 11/06/18 3:15 pm (sent web request on 10-29-18 @ 1038 Office called back and Therese Garcia does home visits with this patient) Prescriptions: Vancomycin/0.9 % Sod Chloride [Vanco 500 mg/100 ml-0.9% NaCl] 500 mg IV 2XW #8 froz.piggy Vancomycin/0.9 % Sod Chloride [Vanco 750 mg/150 ml-0.9% NaCl] 750 mg IV QWEEK #4 froz.piggy (1) Dyspnea Qualifiers: Qualified Code(s): R06.00 - Dyspnea, unspecified (6) Afib Qualifiers: Atrial fibrillation type: chronic Qualified Code(s): I48.2 - Chronic atrial fibrillation (7) T2DM (type 2 diabetes mellitus) Qualifiers: Chronic kidney disease stage: on chronic dialysis Qualified Code(s): E11.22 - Type 2 diabetes mellitus with diabetic chronic kidney disease; N18.6 - End stage renal disease; Z79.4 - halfway (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 (9) Hypertension Qualifiers: Hypertension type: essential hypertension Qualified Code(s): I10 - Essential (primary) hypertension (10) COPD (chronic obstructive pulmonary disease) Qualifiers: COPD type: unspecified COPD Qualified Code(s): J44.9 - Chronic obstructive pulmonary disease, unspecified (11) Iron deficiency anemia Qualifiers: Iron deficiency anemia type: unspecified iron deficiency Qualified Code(s): D50.9 - Iron deficiency anemia, unspecified
[2018-11-03] MEDS: *HR* Acetaminophen w/Cod 300-30 mg 1 TAB TABLET PO PRN (20:15)
[2018-11-03] MEDS: *HR* LORazepam 0.5 MG TABLET PO PRN (22:30)
[2018-11-04] MEDS: Ipratropium/Albuterol Neb 3 ML IH SCH ×4 (03:27→22:50)
[2018-11-04 07:20] LABS: Calcium 8.1 mg/dL (8.6-10.3); Potassium 4.9 mEq/L (3.5-5.1)
[2018-11-04 08:17] LABS: Hematocrit 28.5 % (35.3-44.9); Mean Corpuscular HGB Conc 28.1 g/dL (31.6-35.5); Mean Corpuscular Hemoglobin 22.2 pg (28.0-33.3); Mean Corpuscular Volume 78.9 fL (83.0-100.0); Platelet Count 355 K/mcL (140-400); Red Blood Count 3.61 M/mcL (3.82-4.97); Red Cell Distribution Width 20.2 % (11.5-14.5); White Blood Count 11.6 K/mcL (4.3-11.1)
[2018-11-04] MEDS: *HR* Acetaminophen w/Cod 300-30 mg 1 TAB TABLET PO PRN (08:17)
[2018-11-04] MEDS: Renal Vitamin 1 CAP CAPSULE PO SCH (08:18)
[2018-11-04] MEDS: *HR* Amiodarone 200 MG TABLET PO SCH (08:18)
[2018-11-04] MEDS: predniSONE 20 MG TABLET PO SCH (08:18)
[2018-11-04] MEDS: Nystatin POWDER 30 GM BOTTLE TP SCH ×2 (08:19→20:51)
[2018-11-04] MEDS: Apixaban 2.5 MG TABLET PO SCH (08:19)
[2018-11-04] MEDS: Insulin DETEMIR 100 UNIT/ML X5UNITS SQ SCH (08:20)
[2018-11-04] MEDS: Insulin LISPRO 300 UNITS/3 ML VIAL SQ SCH ×4 (08:21→22:30)
[2018-11-04] MEDS: Budesonide/Formoterol 160/4.5 1 PUFF INH IH SCH ×2 (11:14→22:51)
--- NOTE | 2018-11-04 11:43 | Internal Med Progress Note ---
Hospitalist Progress Note - Encounter Date of Encounter: 11/04/18 Time of Encounter: 09:00 - Subjective Interval History: When seen today, patient was resting comfortably in her bed. Daughter was at bedside and the patient was eating her breakfast. She denies any SOB. Denies any chest pain. Denies any abdominal pain except with positional movements somet imes. No nausea or vomiting. Daughter states the swelling the legs, particular in the L thigh has completely resolved. No fever. - Exam Vitals: Temp Pulse Resp BP Pulse Ox 98.8 F 58 16 120/60 99 11/04/18 07:06 11/04/18 07:06 11/04/18 11:15 11/04/18 07:06 11/04/18 11:15 Exam: GENERAL APPEARANCE: Frail, alert and cooperative, and appears to be in no acute distress. HEAD: normocephalic. EYES: vision is grossly intact. EARS: hearing grossly intact. NOSE: No nasal discharge. THROAT: Oral cavity and pharynx normal. No inflammation, swelling, exudate, or lesions. NECK: Neck supple, non-tender without lymphadenopathy, masses or thyromegaly. CARDIAC: Normal S1 and S2. No S3, S4 or murmurs. Rhythm is regular. There is no cyanosis or pallor. Extremities are warm and well perfused. Capillary refill is less than 2 seconds. No carotid bruits. LUNGS: Crackles, rhales, and wheezing b/l. ABDOMEN: Positive bowel sounds. Soft, mild tenderness with deep palpation diffusely. Mild distension. No guarding or rebound. No masses. MUSKULOSKELETAL: No joint erythema or tenderness. Normal muscular development. EXTREMITIES: No significant deformity or joint abnormality. Peripheral pulses intact. No varicosities. No pitting edema of the LE b/l. LOWER EXTREMITY: Examination of both feet reveals R toe bandaged from chronic pressure ulcer. Distal capillary filling of less than 2 seconds without tenderne ss, swelling, discoloration, nodules, weakness or deformity; examination of both ankles, knees, legs, and hips reveals normal range of motion, normal sensation without tenderness, swelling, discoloration, crepitus, weakness or deformity. SKIN: Skin shows multiple superficial vessel bleeds. LE bandaged and intact. No active bleeding. PSYCHIATRIC: The mental examination revealed the patient was oriented to person, place, and time. - Assessment and Plan (1) Dyspnea Current Visit: No Status: Acute Assessment and Plan: Likely secondary to CHF exacerbation and sepsis. Chest x-ray showed pulmonary edema with bandlike opacity in the left lung base. Had an elevated BMP on arriv al. Demonstrates left lower extremity swelling, which has improved. Denies any active chest pain. Patient also had elevated D dimers however CTA of the chest ruled out PE. Procalcitonin level was high. Blood cultures revealed gram positive cocci enterocaccus and Group B strep. Patient was started on Rocephin and Vancomycin. Infectious disease was consulted. Recommended continuing with current antibiotic treatment. Echocardiogram showed no significant vavlular dysfunction. Repeat blood cultures from 10/28 continued to show gram positive cocci. 10/30/18: Patient had an O2 desaturation to 82%, which then stabilized to 87%. On exam, there was increased crackles on the L side. A CXR was ordered an revealed small L pleural effusion with adjacent atelectasis which was slightly increased compared to the prior exam. Patient's O2 saturation has increased back to 98% in the afternoon. 11/04/18: VS are stable. Edema in LE has completely resolved. Awaiting tunneled PICC line tomorrow. Plan: - Patient to receive HD treatment Monday. - NPO tonight. - Hold eliquis night-time dose. - Strict I/O's. - C/W hemodialysis Monday which will help with her fluid removal. - C/W home medications for COPD: prednisone to 20 mg by mouth daily. - Fluid restriction diet 1500 mL per day. (2) Bacteremia Current Visit: Yes Status: Acute Assessment and Plan: Persistent enterococcal bacteremia. Source is unclear at the moment: HD catheter vs. intra-abdominal vs. other. Perma-cath does not appear infected. Abdominal CT did not reveal an abscess. Patient was c/o swelling/tenderness in R ankle. X-ray did not reveal any evidence of osteomyelitis. Echocardiogram revealed no valvular dysfunction. X-ray of the L ankle as well did not reveal any signs of osteomyelitis. 11/01/18: CT of the abdomen with IV contrast done yesterday and showed no abscess. The source of infection is likely the HD catheter. Nephrology recommended holding off of the permcath removal yesterday due to the patient's frail state. WBC count has been downtrending. Patient afebrile overnight. 11/03/18: ID recommended to salvage permcath line with a vacomycin lock. Dialsysis center refused to comply with vanc treatment without cultures of line. Home health refused IV vanc infusions. Patient to stay over the weekend. 11/04/18: Awaiting tunnel PICC line placement tomorrow. Plan: - Consult IR Monday morning to tunneled PICC line placement. - NPO tonight. - Hold eliquis after AM dose. - INR lab overnight. - C/W Vancomycin. (3) CKD (chronic kidney disease) stage V requiring chronic dialysis Current Visit: No Status: Chronic Assessment and Plan: On hemodialysis Monday schedule. Normally goes to [facility] and has been compliant with her treatments. Labs showed hypokalemia, mild hyponatremia, and creatinine level 2.54 on arrival. Plan: - C/W hemodialysis schedule. - Avoid nephrotoxins. - Renal dose medications. 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 Biopsy not recommeneded at this time. Confirmed with x-ray of LE. Plan: - Nephrology recommends sodium thiosulfate with HD. (5) Tracheostomy dependent Current Visit: Yes Status: Acute Assessment and Plan: On 09/06/2016, she had an extended right colectomy and lysis of adhesions.During this hospitalization she developed acute on chronic respiratory failure, acute, exacerbation of COPD, Acute on chronic kidney injury, bacteremia due to VRE, invasive pulmonary aspergillosis. 09/26/16 and subsequently had endotrachial tube placed. 10/30/18: Informed by patient's daughter that she is overdue for a tracheostomy tube replacement by 1 week. Informed respiratory therapy that will be handling the replacement. (6) Afib Current Visit: No Status: Chronic Assessment and Plan: Rate Controlled. Plan: - C/W amiodarone, metoprolol, and Eliquis. - Will hold eliquis after AM dose today in anticipation of tunneled PICC line procedure tomorrow. (7) T2DM (type 2 diabetes mellitus) Current Visit: Yes Status: Chronic Assessment and Plan: Insulin dependant. Controlled. Plan: - C/W 20 U Levemir SQ qAM. - C/W insulin correction dose medium scale. (8) Pustular lesion Current Visit: Yes Status: Acute Assessment and Plan: Pustular lesions in LE. Intact without eruption. Wound cultures show Group B Strep. Plan: - C/W vancomycin. - Podiatry on board. - C/W wound care. (9) Hypertension Current Visit: No Status: Chronic Assessment and Plan: BP controlled. Plan: - C/W metoprolol. (10) COPD (chronic obstructive pulmonary disease) Current Visit: No Status: Chronic Assessment and Plan: - C/W home duonebs and albuterol. - Prednisone 20 mg PO. - O2 treatment as needed. (11) Iron deficiency anemia Current Visit: No Status: Acute Assessment and Plan: Hgb at baseline. (12) Lung nodules Current Visit: No Status: Acute Assessment and Plan: Chronic, noted on imaging 2017. Repeat CT unchanged. DVT Prophylaxis: On Eliquis. Will hold dose tonight in anticipation of procedure tomorrow. - Time Spent with Patient Total time spent is greater than 50% in coordination of care (as documented) at patient's floor/unit and/or counseling patient: Internal Medicine: Result - Labs CBC & Chem 7: 11/04/18 07:38 11/04/18 06:41 Labs: Short CBC 11/04/18 Range/Units 07:38 WBC 11.6 H (4.3-11.1) K/mcL Hgb 8.0 L (11.5-15.4) g/dL Hct 28.5 L (35.3-44.9) % Plt Count 355 (140-400) K/mcL [facility] 11/04/18 06:41 Sodium 134 L Potassium 4.9 Chloride 92 L Carbon Dioxide 19 L BUN 30 H Creatinine 3.84 H Glucose 180 H Calcium 8.1 L - ABG Interpretation ABG results: PT/INR, D-dimer PT 20.1 Seconds (9.4-12.1) H 10/25/18 12:38 2430 ng/mLFEU (0-500) H 10/25/18 12:38 Consult Discharge Plan - Plan Instructions: Pneumonia (DC) Referrals: Thai Peraza [Non-Partnered Physician] - (This patient is a dialysis patient and they see her in Dialysis) Jose,Therese Mccormick CNP [Primary Care Provider] - 11/06/18 3:15 pm (sent web request on 10-29-18 @ [facility] Office called back and Therese Garcia does home visits with this patient) Prescriptions: Vancomycin/0.9 % Sod Chloride [Vanco 500 mg/100 ml-0.9% NaCl] 500 mg IV 2XW #8 froz.piggy Vancomycin/0.9 % Sod Chloride [Vanco 750 mg/150 ml-0.9% NaCl] 750 mg IV QWEEK #4 froz.piggy (1) Dyspnea Qualifiers: Qualified Code(s): R06.00 - Dyspnea, unspecified (6) Afib Qualifiers: Atrial fibrillation type: chronic Qualified Code(s): I48.2 - Chronic atrial fibrillation (7) T2DM (type 2 diabetes mellitus) Qualifiers: Chronic kidney disease stage: on chronic dialysis Qualified Code(s): E11.22 - Type 2 diabetes mellitus with diabetic chronic kidney disease; N18.6 - End stage renal disease; Z79.4 - senior care (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 (9) Hypertension Qualifiers: Hypertension type: essential hypertension Qualified Code(s): I10 - Essential (primary) hypertension (10) COPD (chronic obstructive pulmonary disease) Qualifiers: COPD type: unspecified COPD Qualified Code(s): J44.9 - Chronic obstructive pulmonary disease, unspecified (11) Iron deficiency anemia Qualifiers: Iron deficiency anemia type: unspecified iron deficiency Qualified Code(s): D50.9 - Iron deficiency anemia, unspecified
[2018-11-05] MEDS: *HR* LORazepam 0.5 MG TABLET PO PRN (00:14)
[2018-11-05] MEDS ORDERED: D5% in Water 1,000 ML IVC PRN (00:46)
[2018-11-05] MEDS ORDERED: *HR* Dextrose 50 % in Water (Syg) 50 ML SYRINGE IVP PRN (00:46)
[2018-11-05] MEDS ORDERED: Dextrose Gel 15 GM/37.5 ML TUBE PO PRN ×2 (00:46)
[2018-11-05 01:46] LABS: Mean Corpuscular Hemoglobin 22.2 pg (28.0-33.3)
[2018-11-05 01:47] LABS: Hematocrit 27.7 % (35.3-44.9); Hemoglobin 7.8 g/dL (11.5-15.4); Mean Corpuscular HGB Conc 28.2 g/dL (31.6-35.5); Mean Corpuscular Volume 78.9 fL (83.0-100.0); Mean Platelet Volume 10.2 fL (9.4-12.4); Platelet Count 394 K/mcL (140-400); Red Blood Count 3.51 M/mcL (3.82-4.97); White Blood Count 11.4 K/mcL (4.3-11.1)
[2018-11-05 01:53] LABS: INR 1.1; Prothrombin Time 12.7 Seconds (9.4-12.1)
[2018-11-05 02:06] LABS: Calcium 7.8 mg/dL (8.6-10.3); Potassium 5.1 mEq/L (3.5-5.1)
[2018-11-05] MEDS: Ipratropium/Albuterol Neb 3 ML IH SCH ×3 (03:14→15:59)
[2018-11-05] MEDS: Insulin LISPRO 300 UNITS/3 ML VIAL SQ SCH ×2 (05:43→13:19)
[2018-11-05] MEDS ORDERED: 0.9 % Sodium Chloride 250 ML IVC PRN (06:52)
[2018-11-05] MEDS: Renal Vitamin 1 CAP CAPSULE PO SCH (07:47)
[2018-11-05] MEDS: Nystatin POWDER 30 GM BOTTLE TP SCH (07:47)
[2018-11-05] MEDS: predniSONE 20 MG TABLET PO SCH (07:47)
[2018-11-05] MEDS: *HR* Amiodarone 200 MG TABLET PO SCH (07:47)
--- NOTE | 2018-11-05 07:59 | Discharge Summary ---
Orders not resulted at time of discharge: Pending orders 10/25/18 16:28 Urinalysis reflex Microscopic [URIN] Routine 10/25/18 18:09 Viral Culture,Respiratory [RM] Routine 11/05/18 IR cvc insert >=5 years [IR] Routine IR us guide vascular access [IR] Routine 11/05/18 18:00 Renal Function Panel QMWF 11/07/18 18:00 Renal Function Panel QMWF 11/09/18 18:00 Renal Function Panel QMWF 11/12/18 18:00 Renal Function Panel QMWF 11/14/18 18:00 Renal Function Panel QMWF Date of Encounter: 11/05/18 - Discharge Diagnosis (1) COPD (chronic obstructive pulmonary disease) Status: Chronic Qualifiers: COPD type: unspecified COPD Qualified Code(s): J44.9 - Chronic obstructive pulmonary disease, unspecified (2) BRANDY (iron deficiency anemia) Status: Suspected Qualifiers: Iron deficiency anemia type: chronic blood loss Qualified Code(s): D50.0 - Iron deficiency anemia secondary to blood loss (chronic) (3) Acute and chronic respiratory failure ([id number]) Status: Acute Qualifiers: Respiratory failure complication: hypoxia Qualified Code(s): J96.21 - Acute and chronic respiratory failure with hypoxia (4) Diabetes mellitus Status: Chronic Qualifiers: Diabetes mellitus type: type 2 Diabetes mellitus [employer] insulin use: with chcf use Diabetes mellitus complication status: with kidney complications Diabetes mellitus complication detail: with chronic kidney disease Chronic kidney disease stage: on chronic dialysis Qualified Code(s): E11.22 - Type 2 diabetes mellitus with diabetic chronic kidney disease; N18.6 - End stage renal disease; Z79.4 - FPC (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 (5) Sepsis Status: Acute Qualifiers: Sepsis type: Streptococcus, other Qualified Code(s): A40.8 - Other streptococcal sepsis (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 Parks is a 78 year old female - Time Spent with Patient Total time spent providing and/or coordinating discharge services: - Discharge Medications Prescriptions: New Vancomycin/0.9 % Sod Chloride [Vanco 500 mg/100 ml-0.9% NaCl] 500 mg IV 2XW #8 froz.piggy Vancomycin/0.9 % Sod Chloride [Vanco 750 mg/150 ml-0.9% NaCl] 750 mg IV QWEEK #4 froz.piggy Continued Ipratropium/Albuterol Neb [Duoneb] 3 ml IH Q6HR PRN PRN Reason: Shortness Of Breath Ascorbate Calcium [Vitamin C] 500 mg PO DAILY Atorvastatin Calcium [Lipitor] 20 mg PO HS Guaifenesin [Mucinex] 600 mg PO BID Insulin LISPRO [HumaLOG] 0 - 10 units SQ TIDAC LORazepam [Ativan] 0.5 mg PO TID PRN PRN Reason: Anxiety Darbepoetin [Aranesp] 80 mcg IV WE Albuterol Sulfate [Proventil Hfa] 2 puff IH Q6H PRN PRN Reason: Wheezing Albuterol Neb [Proventil Neb] 2.5 mg IH Q2H PRN PRN Reason: Shortness Of Breath Pantoprazole Sodium [Protonix] 40 mg PO BID Renal Vitamin [Renal Caps Softgel] 1 mg PO DAILY Calcitriol 0.5 mcg PO MOWEFR Insulin Degludec [Tresiba Flextouch U-100] 20 unit SQ DAILY Metoprolol [Lopressor] 12.5 mg PO BID MDD HOLD SYSTOLIC <100 PULSE<60 Budesonide/Formoterol 160/4.5 [Symbicort 160/4.5] 2 puff IH BIDR Buspirone HCl [Buspar] 15 mg PO BID Lanthanum Carbonate [Fosrenol] 1,000 mg PO TIDWM Venlafaxine [Effexor] 37.5 mg PO DAILY Amiodarone [Cordarone] 200 mg PO DAILY Diclofenac Sodium [Voltaren] 1 appl TP QID predniSONE [PredniSONE] 7 mg PO DAILY Sennosides [Senna] 8.6 mg PO DAILY PRN PRN Reason: Constipation Apixaban [Eliquis] 2.5 mg PO DAILY Oxycodone HCl/Acetaminophen [Percocet 5-325 mg Tablet] 1 each PO Q6-8H PRN PRN Reason: Pain Acetaminophen w/Cod 300-30 mg [Tylenol w/Codeine #3] 1 tab PO Q6H PRN PRN Reason: Pain Home Medications: Ipratropium/Albuterol Neb [Duoneb] 3 ml IH Q6HR PRN 08/22/16 [History] Ascorbate Calcium [Vitamin C] 500 mg PO DAILY 01/31/17 [History] Atorvastatin Calcium [Lipitor] 20 mg PO HS 01/31/17 [History] Guaifenesin [Mucinex] 600 mg PO BID 01/31/17 [History] Insulin LISPRO [HumaLOG] 0 - 10 units SQ TIDAC 01/31/17 [History] LORazepam [Ativan] 0.5 mg PO TID PRN 01/31/17 [History] Albuterol Sulfate [Proventil Hfa] 2 puff IH Q6H PRN 07/06/17 [History] Darbepoetin [Aranesp] 80 mcg IV WE 07/06/17 [History] Albuterol Neb [Proventil Neb] 2.5 mg IH Q2H PRN 07/19/17 [History] Pantoprazole Sodium [Protonix] 40 mg PO BID 07/19/17 [History] Renal Vitamin [Renal Caps Softgel] 1 mg PO DAILY 07/19/17 [History] Budesonide/Formoterol 160/4.5 [Symbicort 160/4.5] 2 puff IH BIDR 03/07/18 [History] Calcitriol 0.5 mcg PO MOWEFR 03/07/18 [History] Insulin Degludec [Tresiba Flextouch U-100] 20 unit SQ DAILY 03/07/18 [History] Metoprolol [Lopressor] 12.5 mg PO BID MDD HOLD SYSTOLIC <100 PULSE<60 03/07/18 [History] Amiodarone [Cordarone] 200 mg PO DAILY 09/04/18 [History] Buspirone HCl [Buspar] 15 mg PO BID 09/04/18 [History] Lanthanum Carbonate [Fosrenol] 1,000 mg PO TIDWM 09/04/18 [History] Venlafaxine [Effexor] 37.5 mg PO DAILY 09/04/18 [History] Apixaban [Eliquis] 2.5 mg PO DAILY 10/25/18 [History] Diclofenac Sodium [Voltaren] 1 appl TP QID 10/25/18 [History] Oxycodone HCl/Acetaminophen [Percocet 5-325 mg Tablet] 1 each PO Q6-8H PRN 10/25/18 [History] Sennosides [Senna] 8.6 mg PO DAILY PRN 10/25/18 [History] predniSONE [PredniSONE] 7 mg PO DAILY 10/25/18 [History] Acetaminophen w/Cod 300-30 mg [Tylenol w/Codeine #3] 1 tab PO Q6H PRN 10/26/18 [History] Vancomycin/0.9 % Sod Chloride [Vanco 500 mg/100 ml-0.9% NaCl] 500 mg IV 2XW #8 froz.piggy 11/02/18 [Rx] Vancomycin/0.9 % Sod Chloride [Vanco 750 mg/150 ml-0.9% NaCl] 750 mg IV QWEEK #4 froz.piggy 11/02/18 [Rx] Allergies/Adverse Reactions: Allergy/AdvReac Type Severity Reaction Status Date / Time aspirin [ASA] Allergy Swelling Verified 10/26/18 13:34 of Lip/Tongue/Throat NSAIDS (Non-Steroidal Allergy Swelling Verified 10/26/18 13:34 Anti-Inflamma of Lip/Tongue/Throat Penicillins Allergy Swelling Verified 10/26/18 13:34 of Lip/Tongue/Throat azithromycin AdvReac Fever Verified 10/26/18 13:34 iron AdvReac Unknown Verified 10/26/18 13:34 Date of admission: 10/25/18 16:33 Primary care physician: Therese Garcia CNP Consults: 10/25/18 14:18 Consult to Nephrology [CONS] Stat Consulting Provider: Kidney Nicole/NICHOLE/CARMELO/LAURENCE Reason for Consult: ESRD on dialysis Time Notified: 14:18 Call Completed: Yes 10/25/18 17:45 Consult to Dialysis [CONS] ONCE 10/26/18 08:59 Consult to Infectious Diseases [CONS] Routine Consulting Provider: Infectious Disease Nicole Reason for Consult: ESRD patient admitted for CHF exacerbation that is postive for bacteremia. Call Completed: Yes 10/27/18 08:45 Consult to Dialysis [CONS] ONCE 10/29/18 08:45 Consult to Dialysis [CONS] ONCE 10/30/18 09:17 Consult to Podiatry [CONS] Routine Consulting Provider: [facility] Reason for Consult: Pustules on LE b/l Time Notified: 09:18 Call Completed: Yes 10/31/18 08:15 Consult to Dialysis [CONS] ONCE 11/01/18 11:40 Consult to Physical Therapy [CONS] Routine Comment: Evaluate, develop and implement POC Reason for Consult: Need evaluation for recommendations on discharge. Does patient have active BEDREST order?: Yes Is patient medically & hemodynamically stable?: Yes Patient assessed for mobility or mobilized this visit?: Yes 11/01/18 13:52 Consult to Occupational Therapy [CONS] Routine Comment: Evaluate, develop and implement POC Reason for Consult: evaluate for discharge needs Does patient have active BEDREST order?: No Is patient medically & hemodynamically stable?: Yes 11/02/18 08:30 Consult to Dialysis [CONS] ONCE 11/05/18 07:00 Consult to Dialysis [CONS] ONCE 11/05/18 07:33 Consult to Interventional Radiology [CONS] Routine Consulting Provider: Radiology Interventional Cols Reason for Consult: tunneled picc line placement Call Completed: Yes - Constitutional Vitals: Temp Pulse Resp BP Pulse Ox 98.8 F 63 16 117/76 98 11/05/18 07:30 11/05/18 07:30 11/05/18 07:30 11/05/18 07:30 11/05/18 07:30 - Patient Status Disposition: Home Health Service Condition: Fair - Discharge Instructions Instructions: Pneumonia (DC) Follow Up With: Thai Peraza [Non-Partnered Physician] - (This patient is a dialysis patient and they see her in Dialysis) Therese Garcia CNP [Primary Care Provider] - 11/06/18 3:15 pm (sent web request on 10-29-18 @ [facility] Office called back and Therese Garcia does home visits with this patient)
--- NOTE | 2018-11-05 08:12 | Internal Med Progress Note ---
Hospitalist Progress Note - Encounter Date of Encounter: 11/05/18 Time of Encounter: 10:39 - Subjective Interval History: Patient seen examined on dialysis. Her daughter was at that bedside. She denied any complaints. She is ready to go home whenever able. She denied chest pain, fever, shortness of breath, chills, nausea, abdominal pain. - Exam Vitals: Temp Pulse Resp BP Pulse Ox 98.8 F 63 16 117/76 98 11/05/18 07:30 11/05/18 07:30 11/05/18 07:30 11/05/18 07:30 11/05/18 07:30 Exam: Gen.: Vitals noted. No acute distress. AAOx3 HEENT: oropharynx clear, Normocephalic, atraumatic Neck: Supple. No adenopath, right side permacath Cardiac: RRR, no murmur, +S1/S2 Pulmonary: CTA bilaterally, no wheezes, rales or rhonchi, equal chest expansion Abdomen: soft, nontender, Bowel sounds noted, no guarding MSK: no joint swelling noted Extremities: BLE edema, nontender calf, no cyanosis or clubbing Neuro: A&Ox3, moves all extremities, no focal deficits Psych: Appropriate mood and behavior - Assessment and Plan (1) Dyspnea Current Visit: No Status: Acute Assessment and Plan: Admitted for dyspnea likely secondary to CHF exacerbation and sepsis. -Chest x-ray showed pulmonary edema with band like opacity in left lung base -CTA chest negative for PE -TTE unremarkable -improving Plan -continue with IV vancomycin -infectious disease following -continue with hemodialysis per nephrology -continue with fluid restrictive diet (2) Bacteremia Current Visit: Yes Status: Acute Assessment and Plan: Bacteremia -etiology is group B strep and enterococcus faecalis -source is unknown however may be due to HD catheter vs intra-abdominal. The Perma cath did not appear infected. -Abdominal CT was negative for abscess or any other acute infection -left and right ankle x-ray did not show evidence of osteomyelitis -TTE Negative for valvular dysfunction -Infectious disease salvaged the permacath line with the vancomycin lock. -Infectious disease recommended vancomycin continue IV. Home health will continue to administer vancomycin after dialysis appointments. -follow-up with infectious disease outpatient (3) COPD (chronic obstructive pulmonary disease) Current Visit: No Status: Chronic Assessment and Plan: History of COPD with chronic tracheostomy in place. -Plan to decrease prednisone to 10 mg daily for 3 days and then resume home 7 mg daily -Continue home duonebs and albuterol -continue with supplemental oxygen (4) BRANDY (iron deficiency anemia) Current Visit: No Status: Suspected Assessment and Plan: Patient has known history of iron deficiency anemia is likely contributed by ESRD -hemoglobin at baseline -continue patient's home Aranesp -no obvious active bleeding (5) Diabetes mellitus Current Visit: No Status: Chronic Assessment and Plan: History of diabetes taking insulin -glucose slightly elevated stable -continue Levemir 20 units QAM -continue low-dose sliding scale insulin Q6H -continue diabetic diet -continue Accu check (6) Calciphylaxis Current Visit: Yes Status: Suspected Assessment and Plan: Concerns of calciphylaxis on abdomen. Nephrology ordered sodium thiosulfate. -Calcium 7.8 -will continue to monitor skin and serum calcium level (7) Lung nodules Current Visit: No Status: Acute Assessment and Plan: Chronic, seen on imaging and 2017, unchanged chest CT. (8) CKD (chronic kidney disease) stage V requiring chronic dialysis Current Visit: No Status: Chronic Assessment and Plan: History of ESRD on dialysis Monday, Monday, Monday. -Nephrology managing and arrange outpatient dialysis (9) Afib Current Visit: No Status: Chronic Assessment and Plan: History of atrial fibrillation on anticoagulation with eliquis. Rate controlled with amiodarone and metoprolol. 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 (11) Pustular lesion Current Visit: Yes Status: Acute Assessment and Plan: Patient had pressure lesions in the lower extremity. -Wound cultures grew group B strep. -Infectious disease following -podiatry following -continue vancomycin -continuing care DVT Prophylaxis: eliquis - Time Spent with Patient Total time spent is greater than 50% in coordination of care (as documented) at patient's floor/unit and/or counseling patient: Internal Medicine: Result - Labs CBC & Chem 7: 11/05/18 00:51 11/05/18 00:51 Labs: Short CBC 11/04/18 11/05/18 Range/Units 07:38 00:51 WBC 11.6 H 11.4 H (4.3-11.1) K/mcL Hgb 8.0 L 7.8 L (11.5-15.4) g/dL Hct 28.5 L 27.7 L (35.3-44.9) % Plt Count 355 394 (140-400) K/mcL BMP 11/05/18 00:51 Sodium 132 L Potassium 5.1 Chloride 91 L Carbon Dioxide 16 L BUN 43 H Creatinine 4.77 H Glucose 251 H Calcium 7.8 L - ABG Interpretation ABG results: PT/INR, D-dimer PT 12.7 Seconds (9.4-12.1) H 11/05/18 00:51 2430 ng/mLFEU (0-500) H 10/25/18 12:38 Consult Discharge Plan - Plan Instructions: Pneumonia (DC) Referrals: Thai Peraza [Non-Partnered Physician] - (This patient is a dialysis patient and they see her in Dialysis) Garcia,Therese Mccormick CNP [Primary Care Provider] - ( Office called back and Therese Garcia does home visits with this patient Family will have to call when patient gets home) Prescriptions: Vancomycin/0.9 % Sod Chloride [Vanco 500 mg/100 ml-0.9% NaCl] 500 mg IV 2XW #8 froz.piggy Vancomycin/0.9 % Sod Chloride [Vanco 750 mg/150 ml-0.9% NaCl] 750 mg IV QWEEK #4 froz.piggy (1) Dyspnea Qualifiers: Qualified Code(s): R06.00 - Dyspnea, unspecified (3) COPD (chronic obstructive pulmonary disease) Qualifiers: COPD type: unspecified COPD Qualified Code(s): J44.9 - Chronic obstructive pulmonary disease, unspecified (4) BRANDY (iron deficiency anemia) Qualifiers: Iron deficiency anemia type: chronic blood loss Qualified Code(s): D50.0 - Iron deficiency anemia secondary to blood loss (chronic) (5) Diabetes mellitus Qualifiers: Diabetes mellitus type: type 2 Diabetes mellitus care home insulin use: with care home use Diabetes mellitus complication status: with kidney complications Diabetes mellitus complication detail: with chronic kidney disease Chronic kidney disease stage: on chronic dialysis Qualified Code(s): E11.22 - Type 2 diabetes mellitus with diabetic chronic kidney disease; N18.6 - End stage renal disease; 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
--- NOTE | 2018-11-05 09:37 | Nephrology Progress Note ---
Date of Encounter: 11/05/18 Time of Encounter: 07:45 - Assessment and Plan (1) ESRD (end stage renal disease) on dialysis Current Visit: No Status: Chronic ESRD on HD every MWF: I reviewed her labs, vital signs, progress notes imaging and medication lists, which required complex evaluation and management plus medical decision-making to compose her dialysis orders for today. I've ordered to continue the sodium thiosulfate thrice weekly; for presumed Calciphylasis, I recommend avoiding Ca containing Rx such as Phoslo and should focus on ideal renal diet that is low in Phos, and of note Warfarin is a boudreaux risk factor for calciphylaxis. The pt's outside dialysis unit did not want to give Vanco thrice weekly with dialysis: unclear why (she goes to a private unit operated by a provider who does not round at [facility]). The pt should not have a PICC (there are guidelines and strong evidence that dictates the importance of avoiding PICC lines in pt's with advanced CKD/ESRD). So a tunneled line for Abx would better. I answered all of her questions as well as her daughter's questions and updated the floor RN as well as the primary team. Regarding Abx: Dr. Carney and ID had already arranged a plan for her Permacath locking with Vanco and Vanco Abx Continue to follow a renal protective strategy as able with strict I/Os, daily weights, avoidance of Nephrotoxins, renal dosing. Thank you (2) Acute and chronic respiratory failure ([id number]) Current Visit: No Status: Acute as per primary Qualifiers: Respiratory failure complication: hypoxia Qualified Code(s): J96.21 - Acute and chronic respiratory failure with hypoxia (3) Sepsis Current Visit: No Status: Acute as per primary Qualifiers: Sepsis type: Streptococcus, other Qualified Code(s): A40.8 - Other streptococcal sepsis (4) Tracheostomy dependent Current Visit: Yes Status: Acute per primary Subjective Principal diagnosis: Bilateral lower extremity bullae Interval history: The patient was seen and examined in her 2N room with one of her daughters. The patient did not affirm having active nausea, vomiting or chest pain. She has a trach, and shook her head no when asked these questions. Her daughter asked for updates regarding the patient's care, and I answered all of her questions. I also spoke with the floor RN and the patient's primary team. Objective - Vital Signs Vital signs: Vital Signs Temp Pulse Resp BP Pulse Ox 11/05/18 07:30 98.8 F 63 16 117/76 98 11/05/18 03:58 99.7 F H 67 16 115/65 98 11/05/18 03:15 19 98 11/05/18 00:15 18 123/56 96 11/04/18 22:51 18 96 11/04/18 22:48 98.8 F 67 16 123/56 96 11/04/18 20:35 67 11/04/18 19:09 98.6 F 69 16 118/55 97 11/04/18 16:03 98.3 F 76 18 137/67 97 11/04/18 15:02 14 99 11/04/18 12:15 98.4 F 73 16 143/67 100 11/04/18 11:15 16 99 Intake and Output 11/04/18 11/05/18 11/05/18 23:59 07:59 15:59 Intake Total 120 / 840 Balance 120 / 840 Intake: Oral 120 / 840 Other: Meal Dinner Percent of Meal Consumed 100% Blood Glucose* [phone] - General Appearance General appearance: Present: well-developed, well-nourished, appears started age, obese, chronically ill, fatigue, frail EENT: Present: ATNC, PERRL, mucous membranes moist Neck: Present: supple Additional Comments: trach in place Respiratory: Present: clear Cardiology: Present: edema (trace pedal edema bilaterally), normal S1, normal S2 Dialysis Vascular Access: Venous Catheter (right sided tunneled dialysis catheter without exit site erythema) Gastrointestinal: Present: normoactive bowel sounds, no tenderness, no guarding, obese Integumentary: Present: ecchymotic Neurologic: Present: no focal deficit, no asterixis Musculoskeletal: Present: no cyanosis, no clubbing Psychiatric: Present: mood/affect appropriate, cooperative - Lab 11/05/18 00:51 11/05/18 00:51 Most recent lab results 11/05/18 00:51 Calcium 7.8 L Consult Discharge Plan - Plan Instructions: Pneumonia (DC) Referrals: Thai Peraza [Non-Partnered Physician] - (This patient is a dialysis pat ient and they see her in Dialysis) Therese Garcia CNP [Primary Care Provider] - ( Office called back and Therese Garcia does home visits with this patient Family will have to call when patient gets home) Prescriptions: Vancomycin/0.9 % Sod Chloride [Vanco 500 mg/100 ml-0.9% NaCl] 500 mg IV 2XW #8 froz.dianne Vancomycin/0.9 % Sod Chloride [Vanco 750 mg/150 ml-0.9% NaCl] 750 mg IV QWEEK #4 froz.dianne
[2018-11-05] MEDS: Budesonide/Formoterol 160/4.5 1 PUFF INH IH SCH (10:17)
[2018-11-05] MEDS ORDERED: 0.9 % Sodium Chloride 1,000 ML ONE (11:55)
[2018-11-05] MEDS: Insulin DETEMIR 100 UNIT/ML X5UNITS SQ SCH (13:18)
[2018-11-05] MEDS ORDERED: Vancomycin 500 MG in 0.9 % Sodium Chloride Mini Bag 100 ML IVPB ONE (14:00)
[2018-11-05] MEDS: HEPARIN IVP SCH (14:30)
[2018-11-05] MEDS: VANCOMYCIN IVP SCH (14:30)
[2018-11-05] MEDS: *HR* Acetaminophen w/Cod 300-30 mg 1 TAB TABLET PO PRN (15:13)
[2018-11-05] MEDS ORDERED: Aminoglycoside Consult 1 EACH MC ONE (16:38)
[2018-11-05 17:02] VITALS: BP 147/68
[2018-11-06] MEDS ORDERED: predniSONE 20 MG TABLET PO SCH (09:00)
== END 2018-11-05 16:39 | disposition home health service (06) | DRG 314 ==
LOC: EMEROOARM 12:26 → SUATTDRO 16:33 → 2ANU 16:33 → 2NNU 19:39
PROVIDERS: ADMIT Internal Medicine; ATTEND Internal Medicine

== ENCOUNTER 2018-12-03 16:49 | Inpatient (IN) ==
[2018-12-03 17:54] LABS: Hemoglobin 11.2 g/dL (11.5-15.4); Nucleated Red Blood Cells 0.2 /100 WBC (0); Red Cell Distribution Width 28.1 % (11.5-14.5)
[2018-12-03 17:55] LABS: Hematocrit 39.8 % (35.3-44.9); Mean Corpuscular HGB Conc 28.1 g/dL (31.6-35.5); Mean Corpuscular Volume 92.6 fL (83.0-100.0); Platelet Count 318 K/mcL (140-400); White Blood Count 9.8 K/mcL (4.3-11.1)
--- NOTE | 2018-12-03 18:13 | Emergency Department Note ---
Disposition Clinical Impression: Lingular pneumonia, Hypokalemia, ESRD (end stage renal disease) on dialysis, Elevated troponin Disposition: Admitted As Inpatient Condition: Fair Referrals: Therese Garcia CNP [Primary Care Provider] - Forms: ED Satisfaction Letter Time of Disposition: 21:36 General Adult HPI - General Chief complaint: ED Chest Pain Stated complaint: general Time Seen by Provider: 12/03/18 16:52 Source: patient, EMS Nursing Notes Reviewed: Yes Vital Signs Reviewed: Yes - History of Present Illness HPI Narrative: 78-year-old female with history of end-stage renal disease, hypertension, chronic trach who presents the emergency department with family via EMS maureen gordon to chest pain. The patient was at dialysis, completed almost the entirety of her dialysis session but complained of chest pain. Patient's family state she has also had copious amounts of secretions through her trach and seems to be more short of breath. She otherwise has had a long-standing abdominal pain in the right lower quadrant which has been evaluated by her primary care physician. She was recently admitted here at the hospital for bacteremia secondary to suspected dialysis catheter line infection versus to keep it is ulcers. Family has noted no nausea, vomiting, decreased appetite, peripheral edema. She does not make urine. Pain Scale: 0 - Related Data Home Medications Medication Instructions Recorded Confirmed Ipratropium/Albuterol Neb [Duoneb] 3 ml IH Q6HR PRN 08/22/16 12/03/18 Ascorbate Calcium [Vitamin C] 500 mg PO DAILY 01/31/17 12/03/18 Atorvastatin Calcium [Lipitor] 20 mg PO HS 01/31/17 12/03/18 Guaifenesin [Mucinex] 600 mg PO BID 01/31/17 12/03/18 Insulin LISPRO [HumaLOG] 0 - 10 units SQ TIDAC 01/31/17 12/03/18 LORazepam [Ativan] 0.5 mg PO TID PRN 01/31/17 12/03/18 Albuterol Sulfate [Proventil Hfa] 2 puff IH Q2H PRN 07/06/17 12/03/18 Darbepoetin [Aranesp] 80 mcg IV Q2W 07/06/17 12/03/18 Albuterol Neb [Proventil Neb] 2.5 mg IH Q6H PRN 07/19/17 12/03/18 Pantoprazole Sodium [Protonix] 40 mg PO BID 07/19/17 12/03/18 Renal Vitamin [Renal Caps Softgel] 1 mg PO DAILY 07/19/17 12/03/18 Budesonide/Formoterol 160/4.5 2 puff IH BIDR 03/07/18 12/03/18 [Symbicort 160/4.5] Calcitriol 0.5 mcg PO MOWEFR 03/07/18 12/03/18 Insulin Degludec [Tresiba 20 unit SQ DAILY 03/07/18 12/03/18 Flextouch U-100] Metoprolol [Lopressor] 12.5 mg PO BID MDD HOLD SYSTOLIC 03/07/18 12/03/18 <100 PULSE<60 Amiodarone [Cordarone] 200 mg PO DAILY 09/04/18 12/03/18 Buspirone HCl [Buspar] 15 mg PO BID 09/04/18 12/03/18 Lanthanum Carbonate [Fosrenol] 1,000 mg PO TIDWM 09/04/18 12/03/18 Venlafaxine [Effexor] 37.5 mg PO DAILY 09/04/18 12/03/18 Diclofenac Sodium [Voltaren] 1 appl TP QID 10/25/18 12/03/18 Sennosides [Senna] 8.6 mg PO DAILY PRN 10/25/18 12/03/18 predniSONE [PredniSONE] 7 mg PO DAILY 10/25/18 12/03/18 Acetaminophen w/Cod 300-30 mg 1 tab PO Q6H PRN 10/26/18 12/03/18 [Tylenol w/Codeine #3] Apixaban [Eliquis] 2.5 mg PO DAILY 12/03/18 12/03/18 Allergies Allergy/AdvReac Type Severity Reaction Status Date / Time aspirin [ASA] Allergy Swelling Verified 10/26/18 13:34 of Lip/Tongue/Throat NSAIDS (Non-Steroidal Allergy Swelling Verified 10/26/18 13:34 Anti-Inflamma of Lip/Tongue/Throat Penicillins Allergy Swelling Verified 10/26/18 13:34 of Lip/Tongue/Throat azithromycin AdvReac Fever Verified 10/26/18 13:34 iron AdvReac Unknown Verified 10/26/18 13:34 Review of Systems: ROS per history of present illness, all other systems reviewed and negative or normal. All systems ED: reviewed and negative except as stated. 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 No apparent distress. Follow commands. Appears stated age. Neck: No JVD. Trachea midline. Neck supple. Eyes: PERRL. No scleral icterus. HENT: Normocephalic and atraumatic. Moist mucus membranes. Trach collar present Cardiovascular: Regular rate and rhythm. Normal S1 and S2. No murmurs appreciated. Normal capillary refill. Extremities well perfused with 2+ distal pulses bilaterally. No edema. Pulmonary: Decreased breath sounds on left. Not inrespiratory distress. Abdomen: Soft, nondistended. Tenderness in RLQ/periumbilical area.. No bruits or masses. No guarding. Neuro: Alert and oriented x3. No focal deficits noted. Skin: No rashes noted on visualized skin. Musculoskeletal: No bony abnormalities visualized. Moves all extremities. Psych: Normal mood. Pleasant. Makes appropriate eye contact. - General General appearance: alert Course Vital Signs Temperature 100.7 F H 12/03/18 16:55 Pulse Rate 102 12/03/18 16:55 Respiratory Rate 24 12/03/18 16:55 Blood Pressure 133/78 12/03/18 16:55 O2 Sat by Pulse Oximetry 96 12/03/18 16:55 Temperature 99.4 F 12/03/18 23:02 Pulse Rate 87 12/03/18 23:02 Respiratory Rate 21 12/03/18 23:02 Blood Pressure 131/72 12/03/18 23:02 O2 Sat by Pulse Oximetry 98 12/03/18 23:02 Oxygen Delivery Oxygen Delivery Trach Mask Medical Decision Making - [facility] Narrative Medical decision making narrative: 78 yo female with history of end-stage renal disease on dialysis, hypertension, chronic trach who presented to the emergency department with complaints of chest pain. On arrival the patient is tachycardic, febrile and tachypneic. Otherwise she is on 6 L via trach collar and at baseline she is not on home oxygen. The patient does have abdominal tenderness per Dr. Toth right lower quadrant. Given possible sepsis obtained CBC, BMP, lactate, blood cultures. The patient was recently admitted for bacteremia and therefore will place the patient on vancomycin, aztreonam and Levaquin for similar concern for pulmonary infection. She has been on vancomycin as an outpatient during dialysis sessions and therefore did not initially place antibiotics without a source. CT chest shows likely lingular pneumonia and pulmonary nodules which were present on previous exam. The patient has no significant leukocytosis and stable anemia. She does have mild hypokalemia down at 3.3. V1 35, improved from previous. Elevated troponin 0.05, no chest pain at this time and no ischemic changes on EKG. She does appear to have baseline elevated troponin. Patient is otherwise anuric. Given the patient's pneumonia and now requirement of supplemental oxygen patient and family agree with plan for admission. Discussed case with on-call hospitalist Dr. Portillo who agrees with plan for admission and accepts the patient to the inpatient service. Patient agrees with and understands course of treatment plan including plan for admission. All questions answered. - Medical Records Medical records reviewed: Yes I reviewed the patient's medical records. - Lab Data Lab results reviewed: Yes I reviewed the patient's lab results. Result diagrams: 12/03/18 17:04 12/03/18 17:27 Lab Results 12/03/18 12/03/18 12/03/18 Range/Units 17:04 17:27 17:27 WBC 9.8 (4.3-11.1) K/mcL RBC 4.30 (3.82-4.97) M/mcL Hgb 11.2 L (11.5-15.4) g/dL Hct 39.8 (35.3-44.9) % MCV 92.6 (83.0-100.0) fL MCH 26.0 L (28.0-33.3) pg MCHC 28.1 L (31.6-35.5) g/dL RDW 28.1 H (11.5-14.5) % Plt Count 318 (140-400) K/mcL MPV 10.0 (9.4-12.4) fL Seg Neutrophils % 72.0 % Band Neutrophils % 2.0 (0-4) % Lymphocytes % 20.0 % Monocytes % 6.0 % Neutrophils # 7.3 (1.6-8.9) K/mcL Lymphocytes # 2.0 (0.6-4.6) K/mcL Monocytes # 0.6 (0.0-1.3) K/mcL Nucleated RBCs/100 WBC 0.2 H (0) /100 WBC Reactive Lymphocytes Present A (Not Present) Platelet Estimate Normal (Normal) Large Platelets Present A (Not Present) Polychromasia 1+ A (Not Present) Anisocytosis 3+ A (Not Present) Sodium 132 L (136-145) mEq/L Potassium 3.3 L (3.5-5.1) mEq/L Chloride 95 L (98-107) mEq/L Carbon Dioxide 24 (23-29) mEq/L BUN 35 H (8-23) mg/dL Creatinine 2.14 H (0.60-1.20) mg/dL Est GFR ( Amer) 27 L (> 60) Est GFR (Non-Af Amer) 22 L (> 60) BUN/Creatinine Ratio 16 (6-26) Glucose 255 H (70-105) mg/dL Calculated Osmolality 291 (280-300) Lactic Acid 1.6 (0.5-2.2) mmol/L Calcium 8.9 (8.6-10.3) mg/dL Magnesium 2.0 (1.6-2.6) mg/dL Total Bilirubin 0.6 (0.3-1.0) mg/dL Direct Bilirubin 0.2 (0.0-0.2) mg/dL Indirect Bilirubin 0.4 (0.0-1.2) mg/dL AST 12 L (13-39) Units/L ALT 17 (7-52) Units/L Alkaline Phosphatase 106 H (34-104) Units/L Troponin I 0.05 H* (< 0.04) ng/mL Serum Total Protein 6.6 (6.4-8.9) g/dL Albumin 3.1 L (3.5-5.7) g/dL Globulin 3.5 (2.4-3.5) g/dL Albumin/Globulin Ratio 0.9 L (1.1-2.2) Lipase 5 L (11-82) Units/L - Radiology Data Radiology results reviewed: Yes I reviewed the patient's radiology results. Chest X-Ray 12/03/18 17:04 IMPRESSION: Small left pleural effusion and bibasilar atelectasis, left greater than right. D/ / Juan A White MD / Juan A White MD Interpreting Provider: Juan A White MD Abdomen/Pelvis CT 12/03/18 17:05 IMPRESSION: 1. Redemonstration of multiple noncalcified lung nodules largest 7 mm in the anterior segment right upper lobe. In a low-risk patient, CT at 3-6 months, then consider CT at 18-24 months. In a high-risk patient, CT at 3-6 months, then CT at 18-24 months. 2. Patchy consolidation with some underlying bronchiolectasis in bibasilar lower lobes with similar but less pronounced finding on a more remote exam of 2017. Suggestive of atelectasis and scarring with or without superimposed pneumonia. 3. Posterior inferior lingular consolidation increased from October 2018 favors pneumonia. 4. No acute process in the abdomen and pelvis. 5. Bilateral tiny nonobstructing renal calculi. RECOMMENDATIONS: Fleischner Society guidelines for follow-up and management of incidentally detected pulmonary nodules: Multiple Solid Nodules: Nodule size equals 6-8 mm In a low-risk patient, CT at 3-6 months, then consider CT at 18-24 months. In a high-risk patient, CT at 3-6 months, then CT at 18-24 months. - Low risk patients include individuals with minimal or absent history of smoking and other known risk factors. - High risk patients include individuals with a history or smoking or known risk factors. Radiology 2017 http://pubs.rsna.org/doi/full/10.1148/radiol.[email or web address] D/ / Chris Nieves MD / Chris Nieves MD Interpreting Provider: Chris Nieves MD Chest CT 07/29/19 19:16 IMPRESSION: 1. Redemonstration of multiple noncalcified lung nodules largest 7 mm in the anterior segment right upper lobe. In a low-risk patient, CT at 3-6 months, then consider CT at 18-24 months. In a high-risk patient, CT at 3-6 months, then CT at 18-24 months. 2. Patchy consolidation with some underlying bronchiolectasis in bibasilar lower lobes with similar but less pronounced finding on a more remote exam of 2017. Suggestive of atelectasis and scarring with or without superimposed pneumonia. 3. Posterior inferior lingular consolidation increased from October 2018 favors pneumonia. 4. No acute process in the abdomen and pelvis. 5. Bilateral tiny nonobstructing renal calculi. RECOMMENDATIONS: Fleischner Society guidelines for follow-up and management of incidentally detected pulmonary nodules: Multiple Solid Nodules: Nodule size equals 6-8 mm In a low-risk patient, CT at 3-6 months, then consider CT at 18-24 months. In a high-risk patient, CT at 3-6 months, then CT at 18-24 months. - Low risk patients include individuals with minimal or absent history of smoking and other known risk factors. - High risk patients include individuals with a history or smoking or known risk factors. Radiology 2017 http://pubs.rsna.org/doi/full/10.1148/radiol.[email or web address] D/ / Chris Nieves MD / Chris Nieves MD Interpreting Provider: Chris Nieves MD - EKG Data EKG #1 EKG attestation: Yes I reviewed and interpreted this EKG. EKG results narrative: Sinus tachycardia rate of 97. Normal axis. Patient is no acute ST or T-wave abnormalities concerning for ischemia. When compared with 10/25/18 there are no significant changes. Attestation Statement - Attestation Attestation: I, Johny Harris DO, examined this patient [id number] and my medical decision-making was reviewed with Dr. Yumiko Hayden, Resident Physician. I agree with the documented findings, disposition and treatment plan as described except to the extent set forth below. I personally supervised and was present for the boudreaux/critical portions of the procedures completed by the resident documented below. Please see my progress notes for details.
[2018-12-03 18:20] LABS: Monocytes # 0.6 K/mcL (0.0-1.3); Neutrophils # 7.3 K/mcL (1.6-8.9)
[2018-12-03 18:21] LABS: Anisocytosis 3+ (Not Present); Large Platelets Present (Not Present); Platelet Estimate Normal (Normal); Polychromasia 1+ (Not Present)
[2018-12-03 18:22] LABS: Reactive Lymphocytes Present (Not Present)
--- NOTE | 2018-12-03 18:54 | Emergency Department Note ---
Disposition Clinical Impression: Lingular pneumonia, Hypokalemia, ESRD (end stage renal disease) on dialysis, Elevated troponin Disposition: Admitted As Inpatient Condition: Fair Referrals: Therese Garcia CNP [Primary Care Provider] - Forms: ED Satisfaction Letter Time of Disposition: 22:16 General Adult HPI - General Chief complaint: ED Chest Pain Stated complaint: general Time Seen by Provider: 12/03/18 16:52 Source: patient, EMS - History of Present Illness Pain Scale: 0 - Related Data Home Medications Medication Instructions Recorded Confirmed Ipratropium/Albuterol Neb [Duoneb] 3 ml IH Q6HR PRN 08/22/16 10/25/18 Ascorbate Calcium [Vitamin C] 500 mg PO DAILY 01/31/17 10/25/18 Atorvastatin Calcium [Lipitor] 20 mg PO HS 01/31/17 10/25/18 Guaifenesin [Mucinex] 600 mg PO BID 01/31/17 10/25/18 Insulin LISPRO [HumaLOG] 0 - 10 units SQ TIDAC 01/31/17 10/25/18 LORazepam [Ativan] 0.5 mg PO TID PRN 01/31/17 10/25/18 Albuterol Sulfate [Proventil Hfa] 2 puff IH Q6H PRN 07/06/17 10/25/18 Darbepoetin [Aranesp] 80 mcg IV WE 07/06/17 10/25/18 Albuterol Neb [Proventil Neb] 2.5 mg IH Q2H PRN 07/19/17 10/25/18 Pantoprazole Sodium [Protonix] 40 mg PO BID 07/19/17 10/25/18 Renal Vitamin [Renal Caps Softgel] 1 mg PO DAILY 07/19/17 10/25/18 Budesonide/Formoterol 160/4.5 2 puff IH BIDR 03/07/18 10/25/18 [Symbicort 160/4.5] Calcitriol 0.5 mcg PO MOWEFR 03/07/18 10/25/18 Insulin Degludec [Tresiba 20 unit SQ DAILY 03/07/18 10/25/18 Flextouch U-100] Metoprolol [Lopressor] 12.5 mg PO BID MDD HOLD SYSTOLIC 03/07/18 10/25/18 <100 PULSE<60 Amiodarone [Cordarone] 200 mg PO DAILY 09/04/18 10/25/18 Buspirone HCl [Buspar] 15 mg PO BID 09/04/18 10/25/18 Lanthanum Carbonate [Fosrenol] 1,000 mg PO TIDWM 09/04/18 10/25/18 Venlafaxine [Effexor] 37.5 mg PO DAILY 09/04/18 10/25/18 Diclofenac Sodium [Voltaren] 1 appl TP QID 10/25/18 10/25/18 Sennosides [Senna] 8.6 mg PO DAILY PRN 10/25/18 10/25/18 predniSONE [PredniSONE] 7 mg PO DAILY 10/25/18 10/25/18 Acetaminophen w/Cod 300-30 mg 1 tab PO Q6H PRN 10/26/18 10/26/18 [Tylenol w/Codeine #3] Apixaban [Eliquis] 2.5 mg PO DAILY 12/03/18 12/03/18 Allergies Allergy/AdvReac Type Severity Reaction Status Date / Time aspirin [ASA] Allergy Swelling Verified 10/26/18 13:34 of Lip/Tongue/Throat NSAIDS (Non-Steroidal Allergy Swelling Verified 10/26/18 13:34 Anti-Inflamma of Lip/Tongue/Throat Penicillins Allergy Swelling Verified 10/26/18 13:34 of Lip/Tongue/Throat azithromycin AdvReac Fever Verified 10/26/18 13:34 iron AdvReac Unknown Verified 10/26/18 13:34 Past Medical History - Past Medical History Medical history: Reports: atrial fibrillation, cancer, CHF, COPD, CVA, diabetes, dialysis, hyperlipidemia, hypertension, myocardial infarction, renal disease Surgical history: Reports: appendectomy, breast surgery, cholecystectomy, colectomy, hysterectomy, other Psychiatric history: Reports: anxiety, depression GEOMETRICIAN history: Reports: no GEOMETRICIAN history - Social History Smoking Status: Former smoker Smokeless Tobacco Status: No Alcohol use: Reports: none Drug use: Reports: none Physical Exam - General General appearance: alert Course Vital Signs Temperature 100.7 F H 12/03/18 16:55 Pulse Rate 102 12/03/18 16:55 Respiratory Rate 24 12/03/18 16:55 Blood Pressure 133/78 12/03/18 16:55 O2 Sat by Pulse Oximetry 96 12/03/18 16:55 Temperature 100.7 F H 12/03/18 16:55 Pulse Rate 90 12/03/18 21:49 Respiratory Rate 20 12/03/18 21:49 Blood Pressure 137/108 12/03/18 21:49 O2 Sat by Pulse Oximetry 96 12/03/18 21:49 Oxygen Delivery Oxygen Delivery Trach Mask Medical Decision Making - Lab Data Result diagrams: 12/03/18 17:04 12/03/18 17:27 Lab Results 12/03/18 12/03/18 12/03/18 Range/Units 17:04 17:27 17:27 WBC 9.8 (4.3-11.1) K/mcL RBC 4.30 (3.82-4.97) M/mcL Hgb 11.2 L (11.5-15.4) g/dL Hct 39.8 (35.3-44.9) % MCV 92.6 (83.0-100.0) fL MCH 26.0 L (28.0-33.3) pg MCHC 28.1 L (31.6-35.5) g/dL RDW 28.1 H (11.5-14.5) % Plt Count 318 (140-400) K/mcL MPV 10.0 (9.4-12.4) fL Seg Neutrophils % 72.0 % Band Neutrophils % 2.0 (0-4) % Lymphocytes % 20.0 % Monocytes % 6.0 % Neutrophils # 7.3 (1.6-8.9) K/mcL Lymphocytes # 2.0 (0.6-4.6) K/mcL Monocytes # 0.6 (0.0-1.3) K/mcL Nucleated RBCs/100 WBC 0.2 H (0) /100 WBC Reactive Lymphocytes Present A (Not Present) Platelet Estimate Normal (Normal) Large Platelets Present A (Not Present) Polychromasia 1+ A (Not Present) Anisocytosis 3+ A (Not Present) Sodium 132 L (136-145) mEq/L Potassium 3.3 L (3.5-5.1) mEq/L Chloride 95 L (98-107) mEq/L Carbon Dioxide 24 (23-29) mEq/L BUN 35 H (8-23) mg/dL Creatinine 2.14 H (0.60-1.20) mg/dL Est GFR ( Amer) 27 L (> 60) Est GFR (Non-Af Amer) 22 L (> 60) BUN/Creatinine Ratio 16 (6-26) Glucose 255 H (70-105) mg/dL Calculated Osmolality 291 (280-300) Lactic Acid 1.6 (0.5-2.2) mmol/L Calcium 8.9 (8.6-10.3) mg/dL Magnesium 2.0 (1.6-2.6) mg/dL Total Bilirubin 0.6 (0.3-1.0) mg/dL Direct Bilirubin 0.2 (0.0-0.2) mg/dL Indirect Bilirubin 0.4 (0.0-1.2) mg/dL AST 12 L (13-39) Units/L ALT 17 (7-52) Units/L Alkaline Phosphatase 106 H (34-104) Units/L Troponin I 0.05 H* (< 0.04) ng/mL Serum Total Protein 6.6 (6.4-8.9) g/dL Albumin 3.1 L (3.5-5.7) g/dL Globulin 3.5 (2.4-3.5) g/dL Albumin/Globulin Ratio 0.9 L (1.1-2.2) Lipase 5 L (11-82) Units/L Attestation Statement - Attestation Attestation: I, Johny Harris DO, examined this patient [id number] and my medical decision-making was reviewed with Dr. Yumiko Hayden, Resident Physician. I agree with the documented findings, disposition and treatment plan as described except to the extent set forth below. I personally supervised and was present for the boudreaux/critical portions of the procedures completed by the resident documented below. Please see my progress notes for details. 78-year-old female presents emergency room for evaluation of generalized malaise, chest pain, cough and congestion. Patient has a tracheostomy in place. Patient is able to answer questions but does not speak. She is also had some persistent pain in her right lower quadrant of her abdomen for several days. The daughters are very diligent and follow-up with her medical issues. Closely. They continue to note that the patient is acting appropriately but has been having progressive symptoms and pain. She denies any active midsternal chest pain at this point but does describe pain in her abdomen. She has had multiple surgeries including a colon resection and they were concerned about possible obstruction versus ileus. Patient is stable. Vital signs reviewed and are unremarkable. She is denying active and anterior chest pain at this time. Denies any fevers or chills. She has not had any shortness of breath. No nausea no vomiting no diarrhea. Denies any headache or vision change. Head is atraumatic. Pupils are equal and reactive. Stoma site appears to be stable no redness or deterioration of the skin. There is mucus secretions. Lungs are coarse crackles in the bases bilaterally with decreased aeration on the left. Heart is regular. Abdomen is soft but she does have a surgical hernia in the anterior abdominal wall with discomfort and pain in the right lower quadrant of the abdomen. Extremities are normal stable pitting edema multiple areas of open wound to have dressings on it. The daughters deny any open decubitus ulcer on the posterior aspect of the back but she does have skin excoriation. Wounds are carefully appropriately at this point. Daughters were informed that we will look for infectious etiology. Patient did just complete an antibiotic regimen after hospital admission. Initial antibiotics will be held until we have any other concerning findings on chest x-ray labs. Patient does have an elevated temperature as well as heart rate on initial presentation. Patient has been on prolonged courses of antibiotics at this point infectious etiology is low in the differential despite the presentation. Fluids will be held considering she just completed dialysis and symptoms will be managed and evaluated. EKG is reviewed by myself in documented in the resident physician's note. See detailed documentation the physical exam, medical intervention, medical decision-making and disposition in the resident physician's note. No critical care pad the [facility]'s treatment course at this time. 1815 Chest x-ray shows stable left-sided pleural effusion does appear to be worse on evaluation. Emergency department. Patient is acting appropriately at this time vital signs have stabilized without any active intervention. Because of the fluid versus pneumonia along with antibiotic regimen was started this time approximately one hour and 30 minutes after the arrival. Lactic acid is normal. White blood cell count is stable. Infectious etiology is a consideration with the patient CT imaging of the abdomen is still pending. She will be provided with started on treatment at this time with the initial abnormal labs and temperature. Patient is otherwise stable and the family is informed. Patient did have initial serves criteria but did not have a focal infectious or noted. Antibiotics have been started at this time. Blood cultures of artery been ordered. 2100 Patient is otherwise stable. The hospitalist Dr. Nguyen reviewed the case. No other acute issues this time. Patient will be admitted for symptomatic control management. Patient will be monitored in emergency room until admission process is completed
[2018-12-03] MEDS ORDERED: levoFLOXacin 750 MG/150 ML 750 MG/150 ML BAG IVPB ONE (18:56)
[2018-12-03] MEDS ORDERED: Aztreonam 2,000 MG in Water for inj. (sterile) 20 ML IVP ONE (18:56)
[2018-12-03 19:05] LABS: Albumin 3.1 g/dL (3.5-5.7); Albumin/Globulin Ratio 0.9 (1.1-2.2); Bilirubin,Direct 0.2 mg/dL (0.0-0.2); Bilirubin,Indirect 0.4 mg/dL (0.0-1.2); Bilirubin,Total 0.6 mg/dL (0.3-1.0); Calcium 8.9 mg/dL (8.6-10.3); Globulin 3.5 g/dL (2.4-3.5); Potassium 3.3 mEq/L (3.5-5.1); Total Protein 6.6 g/dL (6.4-8.9); Troponin I 0.05 ng/mL (< 0.04)
--- NOTE | 2018-12-03 23:19 | Internal Med History&Physical ---
Date of Encounter: 12/04/18 Time of Encounter: 23:19 Internal Medicine - H&P: HPI Chief complaint: CP History of present illness: Ms. Parks is a 78 year old female with past medical history of end-stage renal disease with dialysis Monday via right tunneled hemodialysis catheter and who was just discharged from the hospital after she was treated for bacteremia secondary to dialysis catheter and now presenting the ER via EMS with a complaint of chest pain that started during her dialysis session. As per daughter at bedside 2 hours into dialysis the patient started complaining of chest pain associated with shortness of breath and excessive amount of secretions through her trach. The patient also is complaining of right lower quadrant abdomen pain. At the time the patient is tachycardiac and 6 L via trach collar. The patient was evaluated by the ER staff and his CAT scan of the chest revealed lingular pneumonia. And by moderate she was was noted and is unchanged from prior exam. Laboratory data was evidence of anemia of chronic kidney disease, mild leukocytosis, hypokalemia and mildly elevated troponin. EKG was no significant ST-T wave changes The patient was admitted to the hospital for further evaluation and management. Past Med Surg Social Fam HX - Past Medical History Medical history: atrial fibrillation, cancer, CHF, COPD, CVA, diabetes, dialysis, hyperlipidemia, hypertension, myocardial infarction, renal disease Additional medical history: right breast Psychiatric history: anxiety, depression - Past Surgical History Surgical History: appendectomy, breast surgery, cholecystectomy, colectomy, hysterectomy, other Additional surgical history: trach. peg tube removed - Social History Smoking Status: Former smoker Smokeless Tobacco Status: No Alcohol use: none Drug use: none - Family History Mother Family Member Ethnicity: Non- Living Status: Hx Family Cardiac Disorders: No Hx Family Respiratory Disorders: No Hx Family Cancer: Yes (colon) Hx Family GI Disorders: No Hx Family Endocrine Disorder: No Hx Family Neuromuscular Disorders: No Hx Family Neurologic Disorders: No Hx Family HEENT Disorders: No Hx Family Autoimmune Disorders: No Father Living Status: Hx Family Cardiac Disorders: No Hx Family Respiratory Disorders: No Hx Family Cancer: Yes Hx Family GI Disorders: Yes Hx Family Endocrine Disorder: Yes (diabetic) Hx Family Neuromuscular Disorders: No Hx Family Neurologic Disorders: No Hx Family HEENT Disorders: No Hx Family Autoimmune Disorders: No Internal Medicine - H&P: Meds Ipratropium/Albuterol Neb [Duoneb] 3 ml IH Q6HR PRN 08/22/16 [History] Ascorbate Calcium [Vitamin C] 500 mg PO DAILY 01/31/17 [History] Atorvastatin Calcium [Lipitor] 20 mg PO HS 01/31/17 [History] Guaifenesin [Mucinex] 600 mg PO BID 01/31/17 [History] Insulin LISPRO [HumaLOG] 0 - 10 units SQ TIDAC 01/31/17 [History] LORazepam [Ativan] 0.5 mg PO TID PRN 01/31/17 [History] Albuterol Sulfate [Proventil Hfa] 2 puff IH Q2H PRN 07/06/17 [History] Darbepoetin [Aranesp] 80 mcg IV Q2W 07/06/17 [History] Albuterol Neb [Proventil Neb] 2.5 mg IH Q6H PRN 07/19/17 [History] Pantoprazole Sodium [Protonix] 40 mg PO BID 07/19/17 [History] Renal Vitamin [Renal Caps Softgel] 1 mg PO DAILY 07/19/17 [History] Budesonide/Formoterol 160/4.5 [Symbicort 160/4.5] 2 puff IH BIDR 03/07/18 [History] Calcitriol 0.5 mcg PO MOWEFR 03/07/18 [History] Insulin Degludec [Tresiba Flextouch U-100] 20 unit SQ DAILY 03/07/18 [History] Metoprolol [Lopressor] 12.5 mg PO BID MDD HOLD SYSTOLIC <100 PULSE<60 03/07/18 [History] Amiodarone [Cordarone] 200 mg PO DAILY 09/04/18 [History] Buspirone HCl [Buspar] 15 mg PO BID 09/04/18 [History] Lanthanum Carbonate [Fosrenol] 1,000 mg PO TIDWM 09/04/18 [History] Venlafaxine [Effexor] 37.5 mg PO DAILY 09/04/18 [History] Diclofenac Sodium [Voltaren] 1 appl TP QID 10/25/18 [History] Sennosides [Senna] 8.6 mg PO DAILY PRN 10/25/18 [History] predniSONE [PredniSONE] 7 mg PO DAILY 10/25/18 [History] Acetaminophen w/Cod 300-30 mg [Tylenol w/Codeine #3] 1 tab PO Q6H PRN 10/26/18 [History] Apixaban [Eliquis] 2.5 mg PO DAILY 12/03/18 [History] Allergy/AdvReac Type Severity Reaction Status Date / Time aspirin [ASA] Allergy Swelling Verified 10/26/18 13:34 of Lip/Tongue/Throat NSAIDS (Non-Steroidal Allergy Swelling Verified 10/26/18 13:34 Anti-Inflamma of Lip/Tongue/Throat Penicillins Allergy Swelling Verified 10/26/18 13:34 of Lip/Tongue/Throat azithromycin AdvReac Fever Verified 10/26/18 13:34 iron AdvReac Unknown Verified 10/26/18 13:34 All Systems PM: A 10-system review of systems was performed and is negative for pertinent findings except as documented above in the HPI. - Constitutional Vitals: Temp Pulse Resp BP Pulse Ox 100.7 F H 90 20 137/108 96 12/03/18 16:55 12/03/18 21:49 12/03/18 21:49 12/03/18 21:49 12/03/18 21:49 General appearance: Present: A&O X 3 Exam: . - Head Head exam: Present: atraumatic, normocephalic - Neck Neck exam general surgery: Present: supple, trachea midline. Absent: lymphadenopathy Additional comments: Trach is in midline. - Respiratory Respiratory exam: Present: CTAB. Absent: accessory muscle use, rales, rhonchi, wheezes - Cardiovascular Cardiovascular exam: Present: RRR, +S1, +S2. Absent: diastolic murmur, gallop, rubs, systolic murmur Additional comments: Stomach hemodialysis catheter was appreciated on the right side of the chest. - GI/Abdominal GI/Abdominal exam: Present: normal bowel sounds, soft, no peritoneal signs. Absent: distended, tenderness - Extremities Exam Extremities exam: Present: warm, radial pulses palpable and symmetrical. Absent: calf tenderness, cyanotic, pedal edema Internal Med - H&P Results - Labs CBC & Chem 7: 12/03/18 17:04 12/03/18 17:27 Labs: Short CBC 12/03/18 Range/Units 17:04 WBC 9.8 (4.3-11.1) K/mcL Hgb 11.2 L (11.5-15.4) g/dL Hct 39.8 (35.3-44.9) % Plt Count 318 (140-400) K/mcL Neutrophils # 7.3 (1.6-8.9) K/mcL BMP 12/03/18 17:27 Sodium 132 L Potassium 3.3 L Chloride 95 L Carbon Dioxide 24 BUN 35 H Creatinine 2.14 H Glucose 255 H Calcium 8.9 Cardiac Enzymes 12/03/18 Range/Units 17:27 Troponin I 0.05 H* (< 0.04) ng/mL Liver Function 12/03/18 Range/Units 17:27 Total Bilirubin 0.6 (0.3-1.0) mg/dL Direct Bilirubin 0.2 (0.0-0.2) mg/dL AST 12 L (13-39) Units/L ALT 17 (7-52) Units/L Alkaline Phosphatase 106 H (34-104) Units/L Albumin 3.1 L (3.5-5.7) g/dL - Impressions ITS Impressions Chest X-Ray 12/03/18 17:04 IMPRESSION: Small left pleural effusion and bibasilar atelectasis, left greater than right. D/ / Juan A White MD / Juan A White MD Interpreting Provider: Juan A White MD Abdomen/Pelvis CT 12/03/18 17:05 IMPRESSION: 1. Redemonstration of multiple noncalcified lung nodules largest 7 mm in the anterior segment right upper lobe. In a low-risk patient, CT at 3-6 months, then consider CT at 18-24 months. In a high-risk patient, CT at 3-6 months, then CT at 18-24 months. 2. Patchy consolidation with some underlying bronchiolectasis in bibasilar lower lobes with similar but less pronounced finding on a more remote exam of 2017. Suggestive of atelectasis and scarring with or without superimposed pneumonia. 3. Posterior inferior lingular consolidation increased from October 2018 favors pneumonia. 4. No acute process in the abdomen and pelvis. 5. Bilateral tiny nonobstructing renal calculi. RECOMMENDATIONS: Fleischner Society guidelines for follow-up and management of incidentally detected pulmonary nodules: Multiple Solid Nodules: Nodule size equals 6-8 mm In a low-risk patient, CT at 3-6 months, then consider CT at 18-24 months. In a high-risk patient, CT at 3-6 months, then CT at 18-24 months. - Low risk patients include individuals with minimal or absent history of smoking and other known risk factors. - High risk patients include individuals with a history or smoking or known risk factors. Radiology 2017 http://pubs.rsna.org/doi/full/10.1148/radiol.[email or web address] D/ / Chris Nieves MD / Chris Nieves MD Interpreting Provider: Chris Nieves MD Chest CT 12/03/18 19:16 IMPRESSION: 1. Redemonstration of multiple noncalcified lung nodules largest 7 mm in the anterior segment right upper lobe. In a low-risk patient, CT at 3-6 months, then consider CT at 18-24 months. In a high-risk patient, CT at 3-6 months, then CT at 18-24 months. 2. Patchy consolidation with some underlying bronchiolectasis in bibasilar lower lobes with similar but less pronounced finding on a more remote exam of 2017. Suggestive of atelectasis and scarring with or without superimposed pneumonia. 3. Posterior inferior lingular consolidation increased from October 2018 favors pneumonia. 4. No acute process in the abdomen and pelvis. 5. Bilateral tiny nonobstructing renal calculi. RECOMMENDATIONS: Fleischner Society guidelines for follow-up and management of incidentally detected pulmonary nodules: Multiple Solid Nodules: Nodule size equals 6-8 mm In a low-risk patient, CT at 3-6 months, then consider CT at 18-24 months. In a high-risk patient, CT at 3-6 months, then CT at 18-24 months. - Low risk patients include individuals with minimal or absent history of smoking and other known risk factors. - High risk patients include individuals with a history or smoking or known risk factors. Radiology 2017 http://pubs.rsna.org/doi/full/10.1148/radiol.[email or web address] D/ / Chris Nieves MD / Chris Nieves MD Interpreting Provider: Chris Nieves MD - Assessment and Plan (1) Lingular pneumonia Current Visit: Yes Status: Acute Assessment and plan: - Blood Cx - Urine Legionella antigen - Antibiotics - CBCD, CMP in AM - Tylenol 650 mg PO q 4-6 hr PRN pain or fever - Heparin 5000 U SQ BID (2) Elevated troponin Current Visit: Yes Status: Acute Assessment and plan: EKG was no significant ST-T wave changes, the patient is now chest pain-free, we will trend cardiac enzymes. (3) Hypokalemia Current Visit: Yes Status: Acute Assessment and plan: Nephrology was consulted to assist with providing renal replacement therapy and managing electrolytes abnormalities. (4) ESRD (end stage renal disease) on dialysis Current Visit: Yes Status: Chronic Assessment and plan: The patient hemodialysis Monday, nephrology was consulted for further evaluation and management and to provide renal replacement therapy while inpatient (5) Abdominal pain Current Visit: No Status: Acute Assessment and plan: CAT scan of the abdomen was no significant abnormalities (6) Diabetes mellitus Current Visit: No Status: Chronic Assessment and plan: We we will start the patient and insulin sliding scale with moderate coverage. 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 13 stimulating agents as per protocol. (10) Hyponatremia Current Visit: Yes Status: Acute Assessment and plan: Most likely hypovolemic hyponatremia in the setting of volume overload due inco mplete HD session. - Time Spent With Patient Total time spent is greater than 50% in coordination of care (as documented) at patient's floor/unit and/or counseling patient:
[2018-12-03] MEDS ORDERED: Ondansetron 4 MG/2 ML VIAL IVP PRN (23:27)
[2018-12-03] MEDS ORDERED: Naloxone 0.4 MG/ML INJ IVP PRN (23:27)
[2018-12-04] MEDS ORDERED: levoFLOXacin 750 MG/150 ML 750 MG/150 ML BAG IVPB SCH (01:00)
[2018-12-04 07:14] LABS: Basophils % 0.1 %; Eosinophils % 0.1 %; Immature Granulocytes % 0.5 % (0-4); Mean Corpuscular Hemoglobin 25.8 pg (28.0-33.3)
[2018-12-04 07:15] LABS: Hematocrit 36.8 % (35.3-44.9); Hemoglobin 10.3 g/dL (11.5-15.4); Lymphocytes # 1.2 K/mcL (0.6-4.6); Lymphocytes % 15.6 %; Mean Corpuscular Volume 92.2 fL (83.0-100.0); Mean Platelet Volume 9.6 fL (9.4-12.4); Monocytes # 0.5 K/mcL (0.0-1.3); Monocytes % 6.3 %; Neutrophils # 5.9 K/mcL (1.6-8.9); Platelet Count 278 K/mcL (140-400); Red Blood Count 3.99 M/mcL (3.82-4.97); Red Cell Distribution Width 27.7 % (11.5-14.5); Segmented Neutrophils % 77.4 %; White Blood Count 7.6 K/mcL (4.3-11.1)
[2018-12-04 07:21] LABS: INR 1.2; Prothrombin Time 13.2 Seconds (9.4-12.1)
[2018-12-04 07:23] LABS: Activated Partial Thrombo Time 28.5 Seconds (26.0-36.0)
[2018-12-04 07:37] LABS: Albumin 2.8 g/dL (3.5-5.7); Albumin/Globulin Ratio 0.9 (1.1-2.2); Bilirubin,Total 0.5 mg/dL (0.3-1.0); Calcium 8.9 mg/dL (8.6-10.3); Chol/HDL Ratio 1.4 (0-4.9); Magnesium 2.1 mg/dL (1.6-2.6); Phosphorous 2.9 mg/dL (2.7-4.5); Potassium 3.4 mEq/L (3.5-5.1); Total Protein 5.8 g/dL (6.4-8.9)
[2018-12-04] MEDS ORDERED: Aztreonam 500 MG in 0.9 % Sodium Chloride 50 ML IVPB SCH (08:00)
[2018-12-04] MEDS ORDERED: Ipratropium/Albuterol Neb 3 ML IH PRN (08:24)
[2018-12-04] MEDS ORDERED: Albuterol 2.5 MG/3 ML NEBULIZER IH PRN (08:24)
[2018-12-04] MEDS ORDERED: Sennosides 8.6 MG TABLET PO PRN (08:24)
[2018-12-04 08:39] LABS: Anisocytosis 1+ (Not Present); Hypochromasia Present (Not Present); Large Platelets Present (Not Present); Platelet Estimate Normal (Normal); Polychromasia 1+ (Not Present)
[2018-12-04] MEDS ORDERED: (Insulin Degludec [Tresiba Flextouch U-100] 20 UNIT) SQ SCH (09:00)
[2018-12-04] MEDS: *HR* Amiodarone 200 MG TABLET PO SCH (09:27)
[2018-12-04] MEDS: *HR* Acetaminophen w/Cod 300-30 mg 1 TAB TABLET PO PRN (09:27)
[2018-12-04] MEDS: Apixaban 2.5 MG TABLET PO SCH (09:27)
[2018-12-04] MEDS: Budesonide/Formoterol 160/4.5 1 PUFF INH IH SCH ×2 (09:42→20:09)
[2018-12-04] MEDS: (Diclofenac Sodium [Voltaren] 1 APPL) TP SCH ×4 (09:43→23:00)
[2018-12-04] MEDS: predniSONE 5 MG TABLET PO SCH (09:43)
[2018-12-04] MEDS: predniSONE 1 MG TABLET PO SCH (09:43)
[2018-12-04] MEDS: Insulin DETEMIR 100 UNIT/ML X5UNITS SQ SCH (12:10)
[2018-12-04 14:40] LABS: Acinetobacter baumannii by PCR Not Detected (Not Detect); Candida albicans by PCR Not Detected (Not Detect); Candida glabrata by PCR Not Detected (Not Detect); Candida krusei by PCR Not Detected (Not Detect); Candida parapsilosis by PCR Not Detected (Not Detect); Candida tropicalis by PCR Not Detected (Not Detect); Enterobacter cloacae Cmplx PCR Not Detected (Not Detect); Enterobacteriaceae by PCR Not Detected (Not Detect); Enterococcus by PCR Not Detected (Not Detect); Escherichia coli by PCR Not Detected (Not Detect); Klebsiella oxytoca by PCR Not Detected (Not Detect); Klebsiella pneumoniae by PCR Not Detected (Not Detect); Proteus by PCR Not Detected (Not Detect); Pseudomonas aeruginosa by PCR Not Detected (Not Detect); Serratia marcescens by PCR Not Detected (Not Detect); Staphylococcus aureus by PCR Not Detected (Not Detect); Staphylococcus by PCR Not Detected (Not Detect); Streptococcus agalactiae(B)PCR Not Detected (Not Detect); Streptococcus by PCR Not Detected (Not Detect); Streptococcus pneumoniae PCR Not Detected (Not Detect); Streptococcus pyogenes (A) PCR Not Detected (Not Detect)
--- NOTE | 2018-12-04 14:55 | Nephrology Consult Note ---
Date of Encounter: 12/04/18 Time of Encounter: 14:35 Assessment and Plan (1) ESRD (end stage renal disease) on dialysis Current Visit: Yes Status: Chronic HD MWF in [place] with Dr. Peraza. No need for CARDIOLOGY TECHNOLOGIST today, HD tomorrow. Avoid nephrotoxins and renal dose. Strict I/O Renal diet. (2) Elevated troponin Current Visit: Yes Status: Acute Per primary. (3) Hypokalemia Current Visit: Yes Status: Acute 3.4, stable. (4) Hyponatremia Current Visit: Yes Status: Acute Na is 136, improved. (5) Lingular pneumonia Current Visit: Yes Status: Acute Per primary. History of Present Illness - Reason for Consult Consult date: 12/04/18 end stage renal disease Requesting physician: Addy Rocha - Chief Complaint chest pain, increased sectretions - History of Present Illness Ms. Parks is a 78 year old female who presented to ED with chest pain, shortness of breath, increased sputum production. She also c/o of right sided abdominal pain. PMH: Afib, CHF, COPD, DM, ESRD. Current regimen is MWF with Dr. Peraza in [place]. She has a chronic trach, both daughters at bedside for history. This chest pain and shortness of breath started approximately 2 hours into HD on Monday12/03/18. Daughters state that she has not felt well in several days. She has poor appetite and has not been drinking fluids as she should. She was tr ansferred to ED after. Denies chest pain at this time. Admits to chronic shortness of breath. Denies nausea, vomiting, diarrhea. She lives at home where daughters care for her. She is a former smoker, denies etoh or illicit drug use. She has been on HD for since 2017. No FH of CKD or HD. Past Med Surg Social Fam HX - Past Medical History Medical history: atrial fibrillation, cancer, CHF, COPD, CVA, diabetes, dialysis, hyperlipidemia, hypertension, myocardial infarction, renal disease Additional medical history: right breast Psychiatric history: anxiety, depression - Past Surgical History Surgical History: appendectomy, breast surgery, cholecystectomy, colectomy, hysterectomy, other Additional surgical history: trach. peg tube removed - Social History Smoking Status: Former smoker Smokeless Tobacco Status: No Alcohol use: none Drug use: none - Family History Mother Family Member Ethnicity: Non- Living Status: Hx Family Cardiac Disorders: No Hx Family Respiratory Disorders: No Hx Family Cancer: Yes (colon) Hx Family GI Disorders: No Hx Family Endocrine Disorder: No Hx Family Neuromuscular Disorders: No Hx Family Neurologic Disorders: No Hx Family HEENT Disorders: No Hx Family Autoimmune Disorders: No Father Living Status: Hx Family Cardiac Disorders: No Hx Family Respiratory Disorders: No Hx Family Cancer: Yes Hx Family GI Disorders: Yes Hx Family Endocrine Disorder: Yes (diabetic) Hx Family Neuromuscular Disorders: No Hx Family Neurologic Disorders: No Hx Family HEENT Disorders: No Hx Family Autoimmune Disorders: No Medications and Allergies Ipratropium/Albuterol Neb [Duoneb] 3 ml IH Q6HR PRN 08/22/16 [History] Ascorbate Calcium [Vitamin C] 500 mg PO DAILY 01/31/17 [History] Atorvastatin Calcium [Lipitor] 20 mg PO HS 01/31/17 [History] Guaifenesin [Mucinex] 600 mg PO BID 01/31/17 [History] Insulin LISPRO [HumaLOG] 0 - 10 units SQ TIDAC 01/31/17 [History] LORazepam [Ativan] 0.5 mg PO TID PRN 01/31/17 [History] Albuterol Sulfate [Proventil Hfa] 2 puff IH Q2H PRN 07/06/17 [History] Darbepoetin [Aranesp] 80 mcg IV Q2W 07/06/17 [History] Albuterol Neb [Proventil Neb] 2.5 mg IH Q6H PRN 07/19/17 [History] Pantoprazole Sodium [Protonix] 40 mg PO BID 07/19/17 [History] Renal Vitamin [Renal Caps Softgel] 1 mg PO DAILY 07/19/17 [History] Budesonide/Formoterol 160/4.5 [Symbicort 160/4.5] 2 puff IH BIDR 03/07/18 [History] Calcitriol 0.5 mcg PO MOWEFR 03/07/18 [History] Insulin Degludec [Tresiba Flextouch U-100] 20 unit SQ DAILY 03/07/18 [History] Metoprolol [Lopressor] 12.5 mg PO BID MDD HOLD SYSTOLIC <100 PULSE<60 03/07/18 [History] Amiodarone [Cordarone] 200 mg PO DAILY 09/04/18 [History] Buspirone HCl [Buspar] 15 mg PO BID 09/04/18 [History] Lanthanum Carbonate [Fosrenol] 1,000 mg PO TIDWM 09/04/18 [History] Venlafaxine [Effexor] 37.5 mg PO DAILY 09/04/18 [History] Diclofenac Sodium [Voltaren] 1 appl TP QID 10/25/18 [History] Sennosides [Senna] 8.6 mg PO DAILY PRN 10/25/18 [History] predniSONE [PredniSONE] 7 mg PO DAILY 10/25/18 [History] Acetaminophen w/Cod 300-30 mg [Tylenol w/Codeine #3] 1 tab PO Q6H PRN 10/26/18 [History] Apixaban [Eliquis] 2.5 mg PO DAILY 12/03/18 [History] Allergy/AdvReac Type Severity Reaction Status Date / Time aspirin [ASA] Allergy Swelling Verified 10/26/18 13:34 of Lip/Tongue/Throat NSAIDS (Non-Steroidal Allergy Swelling Verified 10/26/18 13:34 Anti-Inflamma of Lip/Tongue/Throat Penicillins Allergy Swelling Verified 10/26/18 13:34 of Lip/Tongue/Throat azithromycin AdvReac Fever Verified 10/26/18 13:34 iron AdvReac Unknown Verified 10/26/18 13:34 Review of Systems All Systems review (narrative): The remainder of the systems are negative. Constitutional: fatigue, no chills, no fever(s) Cardiovascular: no chest pain, no dyspnea Respiratory: excessive phlegm production, change in phlegm color, no hemoptysis Gastrointestinal: no change in bowel habits, no diarrhea, no nausea, no vomiting Exam - Vital Signs Vital signs: Initial Vital Signs Temp Pulse Resp BP Pulse Ox 100.7 F H 102 24 133/78 96 12/03/18 16:55 12/03/18 16:55 12/03/18 16:55 12/03/18 16:55 12/03/18 16:55 Vital Signs - Last 8 Hours Temp Pulse Resp BP Pulse Ox 12/04/18 12:20 98.0 F 12/04/18 12:00 79 23 135/68 96 12/04/18 11:00 78 12/04/18 10:03 93 12/04/18 10:00 77 21 134/63 95 12/04/18 09:42 20 98 12/04/18 09:00 78 21 115/93 95 12/04/18 08:23 98.0 F 12/04/18 08:00 75 23 109/72 95 12/04/18 07:00 72 Intake and Output 12/03/18 12/04/18 12/04/18 23:59 07:59 15:59 Intake Total 420 / 420 0 / 410 410 / 410 Output Total 0 / 0 Balance 420 / 420 0 / 410 410 / 410 Intake: IV Fluids 420 / 420 50 / 50 Azactam 2,000 MG In Water for inj. (sterile) 20 ML @ 300 mls/ hr IVP ONCE ONE Rx#:[id number] Azactam 500 MG In 0.9 % Sodium 50 / 50 Chloride 50 ML @ 100 mls/hr IVPB Q8HR KEILA Rx#:[id number] Vancocin 1,000 MG In 0.9 % 250 / 250 Sodium Chloride 250 ML @ 167 mls/hr IVPB ONCE STA Rx#: [id number] Levaquin Premix 750mg/150 mL 150 / 150 750 mg In 150 ml @ 100 mls/hr IVPB ONCE ONE Rx#:[id number] Oral 0 / 0 0 / 360 360 / 360 Output: Urine 0 / 0 Other: Meal Lunch Weight 65.2 kg Blood Glucose* 222 169 - General Appearance General appearance: well-developed, well-nourished EENT: ATNC, hearing intact, vision intact Neck: supple Respiratory: clear Cardiology: no edema, normal S1, normal S2 - Dialysis Access Dialysis Vascular Access: Venous Catheter (DRSG C/D/I) Gastrointestinal: normoactive bowel sounds, no tenderness, no guarding Integumentary: no rash, warm and dry Neurologic: alert and oriented x3 Musculoskeletal: no deformities, no erythema Psychiatric: cooperative Results - Lab Results 12/04/18 06:25 12/04/18 06:25 Most recent lab results 12/04/18 06:25 Calcium 8.9 Phosphorus 2.9 Magnesium 2.1 Consult Discharge Plan - Plan Referrals: Therese Garcia CNP [Primary Care Provider] -
--- NOTE | 2018-12-04 15:02 | Internal Med Progress Note ---
Hospitalist Progress Note - Encounter Date of Encounter: 12/04/18 Time of Encounter: 10:30 - Subjective Interval History: Patient says she is feeling a bit better today. Reports that she actually makes a lot of sputum at baseline and isn't sure her current production is that much more, and no change in color. Denies abd pain today. No N/V/D. - Exam Vitals: Temp Pulse Resp BP Pulse Ox 98.0 F 79 23 135/68 96 12/04/18 12:20 12/04/18 12:00 12/04/18 12:00 12/04/18 12:00 12/04/18 12:00 Exam: General: NAD, decent eye contact, chronically ill appearing, elderly ENT: Chronic trach. Thoracic: decent aeration except faint bibasilar crackles and diminished in L ba se Cardio: Normal S1 and S2, regular rate and rhythm Abdomen: Soft, nontender, nondistended. Extremities: Warm, well perfused. DP pulses 2+ b/l. No edema. Neuro: awake and fully oriented. Decent memory, diminished concentration and attention. Has trach and therefore verbalizing is difficult. - Assessment and Plan (1) Lingular pneumonia Current Visit: Yes Status: Acute (2) Abdominal pain Current Visit: No Status: Acute (3) Elevated troponin Current Visit: Yes Status: Acute (4) Hypertension Current Visit: No Status: Chronic (5) History of CVA (cerebrovascular accident) Current Visit: No Status: Chronic (6) Diabetes mellitus Current Visit: No Status: Chronic (7) ESRD (end stage renal disease) on dialysis Current Visit: Yes Status: Chronic (8) Hypokalemia Current Visit: Yes Status: Acute (9) Anemia in chronic kidney disease, on chronic dialysis Current Visit: Yes Status: Acute (10) Hyponatremia Current Visit: Yes Status: Acute - Summary of Assessment and Plan Summary of Assessment and Plan: Dorothy Parks is a 78 F w hx ESRD on HD MWF, HFpEF, CAD s/p IL, HTN, DM2, CVA, A- Fib not on AC 2/2 GIB requiring colectomy, s/p chronic trach, and who was recently discharged from the hospital following bacteremia from HD cath, who presented at time of admission with chest pain that started during her Monday HD session, a/w SOB and increased sputum production, found to be febrile T 100.7, HR 100s, RR 20s, and CT showing L lingular infiltrate, concerning for pneumonia. L Lingular PNA: - empiric aztreonam, vanc, levaquin - SpCx for excessive secretions - nasal MRSA screen Gram negative coccobacilli bacteremia, prelim Haemophilus: - empiric abx as above - await speciation and sensitivities Sepsis (poa): resolved Hypokalemia: replace and monitor ESRD on HD MWF: Neph consulted, home calcitriol, darbo, fosrenol HFpEF: volume per HD CAD: home lipitor, has listed allergy to ASA HTN: volume per HD DM2: insulin dependent, w hyperglycemia, controlled currently, use SSI A-Fib: not on AC, rhythm on amio 200, rate on metoprolol 12.5 bid COPD: home inhalers, duonebs prn Anx/dep: home lexapro 20, effexor 37.5, buspar 7.5 bid, ativan tid prn, trazodone 50 qhs prn PPx: sqh FEN: renal, no MIVF Lines: PIV, permacath Consults: Neph Code: DNRCC-A / DNI Dispo: requires inpatient care for evaluation and monitoring, anticipate 2-3 days, will be homegoing Internal Medicine: Result - Labs CBC & Chem 7: 12/04/18 06:25 12/04/18 06:25 Labs: Short CBC 12/03/18 12/04/18 Range/Units 17:04 06:25 WBC 9.8 7.6 (4.3-11.1) K/mcL Hgb 11.2 L 10.3 L (11.5-15.4) g/dL Hct 39.8 36.8 (35.3-44.9) % Plt Count 318 278 (140-400) K/mcL Neutrophils # 7.3 5.9 (1.6-8.9) K/mcL BMP 12/03/18 12/04/18 17:27 06:25 Sodium 132 L 136 Potassium 3.3 L 3.4 L Chloride 95 L 95 L Carbon Dioxide 24 25 BUN 35 H 45 H Creatinine 2.14 H 2.77 H Glucose 255 H 114 H Calcium 8.9 8.9 Cardiac Enzymes 12/03/18 Range/Units 17:27 Troponin I 0.05 H* (< 0.04) ng/mL Liver Function 12/03/18 12/04/18 Range/Units 17:27 06:25 Total Bilirubin 0.6 0.5 (0.3-1.0) mg/dL Direct Bilirubin 0.2 (0.0-0.2) mg/dL AST 12 L 10 L (13-39) Units/L ALT 17 13 (7-52) Units/L Alkaline Phosphatase 106 H 91 (34-104) Units/L Albumin 3.1 L 2.8 L (3.5-5.7) g/dL - ABG Interpretation ABG results: PT/INR, D-dimer PT 13.2 Seconds (9.4-12.1) H 12/04/18 06:25 - Impressions Impressions Chest X-Ray 12/03/18 17:04 IMPRESSION: Small left pleural effusion and bibasilar atelectasis, left greater than right. D/ / Juan A White MD / Juan A White MD Interpreting Provider: Juan A White MD Abdomen/Pelvis CT 12/03/18 17:05 IMPRESSION: 1. Redemonstration of multiple noncalcified lung nodules largest 7 mm in the anterior segment right upper lobe. In a low-risk patient, CT at 3-6 months, then consider CT at 18-24 months. In a high-risk patient, CT at 3-6 months, then CT at 18-24 months. 2. Patchy consolidation with some underlying bronchiolectasis in bibasilar lower lobes with similar but less pronounced finding on a more remote exam of 2016. Suggestive of atelectasis and scarring with or without superimposed pneumonia. 3. Posterior inferior lingular consolidation increased from October 2018 favors pneumonia. 4. No acute process in the abdomen and pelvis. 5. Bilateral tiny nonobstructing renal calculi. RECOMMENDATIONS: Fleischner Society guidelines for follow-up and management of incidentally detected pulmonary nodules: Multiple Solid Nodules: Nodule size equals 6-8 mm In a low-risk patient, CT at 3-6 months, then consider CT at 18-24 months. In a high-risk patient, CT at 3-6 months, then CT at 18-24 months. - Low risk patients include individuals with minimal or absent history of smoking and other known risk factors. - High risk patients include individuals with a history or smoking or known risk factors. Radiology 2017 http://pubs.rsna.org/doi/full/10.1148/radiol.6786786348 D/ / Chris Nieves MD / Chris Nieves MD Interpreting Provider: Chris Nieves MD Chest CT 12/03/18 19:16 IMPRESSION: 1. Redemonstration of multiple noncalcified lung nodules largest 7 mm in the anterior segment right upper lobe. In a low-risk patient, CT at 3-6 months, then consider CT at 18-24 months. In a high-risk patient, CT at 3-6 months, then CT at 18-24 months. 2. Patchy consolidation with some underlying bronchiolectasis in bibasilar lower lobes with similar but less pronounced finding on a more remote exam of 2017. Suggestive of atelectasis and scarring with or without superimposed pneumonia. 3. Posterior inferior lingular consolidation increased from October 2018 favors pneumonia. 4. No acute process in the abdomen and pelvis. 5. Bilateral tiny nonobstructing renal calculi. RECOMMENDATIONS: Fleischner Society guidelines for follow-up and management of incidentally detected pulmonary nodules: Multiple Solid Nodules: Nodule size equals 6-8 mm In a low-risk patient, CT at 3-6 months, then consider CT at 18-24 months. In a high-risk patient, CT at 3-6 months, then CT at 18-24 months. - Low risk patients include individuals with minimal or absent history of smoking and other known risk factors. - High risk patients include individuals with a history or smoking or known risk factors. Radiology 2017 http://pubs.rsna.org/doi/full/10.1148/radiol.[email or web address] D/ / Chris Nieves MD / Chris Nieves MD Interpreting Provider: Chris Nieves MD Consult Discharge Plan - Plan Referrals: Therese Garcia, TURNER [Primary Care Provider] - (2) Abdominal pain Qualifiers: Abdominal location: generalized Qualified Code(s): R10.84 - Generalized abdominal pain (4) Hypertension Qualifiers: Hypertension type: essential hypertension Qualified Code(s): I10 - Essential (primary) hypertension (6) Diabetes mellitus Qualifiers: Diabetes mellitus type: type 2 Diabetes mellitus detention insulin use: with rat exterminator use Diabetes mellitus complication status: with kidney complications Diabetes mellitus complication detail: with chronic kidney disease Chronic kidney disease stage: on chronic dialysis Qualified Code(s): E11.22 - Type 2 diabetes mellitus with diabetic chronic kidney disease; N18.6 - End stage renal disease; Z79.4 - detention (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
[2018-12-04 15:22] LABS: Hepatitis B Surface Antibody < 3.10 mIU/mL
[2018-12-04 15:34] LABS: Hepatitis B Surface Antigen Nonreactive (Nonreactive)
--- NOTE | 2018-12-04 16:29 | Electrocardiograph Report ---
[address] [place], [place] [address] Test Date: 2018-12-03 Pat Name: Dorothy Parks Department: [id number] Room: [facility] Gender: F Bright Cutter: : 1940 Requested By: Yumiko Hayden Order Number: [id number] Reading MD: Kj Yost Measurements Intervals [place] Rate: 97 P: 23 MT: 158 QRS: 23 QRSD: 91 T: 85 QT: 334 QTc: 425 Interpretive Statements Sinus tachycardia Atrial premature complexes Electronically Signed On 12-04-2018 16:28:04 EDT by Kj Yost
[2018-12-04] MEDS: Cefepime HCl 1,000 MG in Water for inj. (sterile) 10 ML IVP SCH (17:04)
[2018-12-05 04:18] LABS: Hematocrit 35.4 % (35.3-44.9); Hemoglobin 10.1 g/dL (11.5-15.4); Mean Corpuscular HGB Conc 28.5 g/dL (31.6-35.5); Mean Corpuscular Hemoglobin 26.2 pg (28.0-33.3); Mean Corpuscular Volume 91.9 fL (83.0-100.0); Mean Platelet Volume 9.4 fL (9.4-12.4); Platelet Count 280 K/mcL (140-400); Red Blood Count 3.85 M/mcL (3.82-4.97); White Blood Count 5.7 K/mcL (4.3-11.1)
[2018-12-05 04:38] LABS: Calcium 8.8 mg/dL (8.6-10.3); Potassium 3.8 mEq/L (3.5-5.1)
[2018-12-05] MEDS: Budesonide/Formoterol 160/4.5 1 PUFF INH IH SCH ×2 (07:48→22:29)
--- NOTE | 2018-12-05 08:32 | Internal Med Progress Note ---
Hospitalist Progress Note - Encounter Date of Encounter: 12/05/18 Time of Encounter: 10:00 - Subjective Interval History: HAd dialysis this am - Exam Vitals: Temp Pulse Resp BP Pulse Ox 98.3 F 56 16 137/64 98 12/05/18 07:39 12/05/18 07:39 12/05/18 07:54 12/05/18 07:39 12/05/18 07:54 Exam: General: NAD, decent eye contact, chronically ill appearing, elderly ENT: Chronic trach. Thoracic: decent aeration except faint bibasilar crackles and diminished in L base Cardio: Normal S1 and S2, regular rate and rhythm Abdomen: Soft, nontender, nondistended. Extremities: Warm, well perfused. DP pulses 2+ b/l. No edema. Neuro: awake and fully oriented. Decent memory, diminished concentration and attention. Has trach and therefore verbalizing is difficult. - Assessment and Plan (1) Lingular pneumonia Current Visit: Yes Status: Acute Assessment and Plan: Pt has pneumonia with sepsis with gram positive cocci and gram negative coccobacilli bacteremia repeat blood cultures. Continue on vanc and cefepime ID recs appreciated. Pt has had enteroccocus bacteremia in the past and may need VIC. Last echo WNL (2) Elevated troponin Current Visit: Yes Status: Acute Assessment and Plan: EKG was no significant ST-T wave changes, the patient is now chest pain-free, we will trend cardiac enzymes. (3) Hypertension Current Visit: Yes Status: Chronic Assessment and Plan: We will continue to monitor blood pressure while inpatient, and tinea home meds and adjust regimen if indicated (4) History of CVA (cerebrovascular accident) Current Visit: Yes Status: Chronic Assessment and Plan: Stable continue home meds (5) Diabetes mellitus Current Visit: Yes Status: Chronic Assessment and Plan: We we will start the patient and insulin sliding scale with moderate coverage. (6) ESRD (end stage renal disease) on dialysis Current Visit: Yes Status: Chronic Assessment and Plan: Continue hemodialysis per schedule (7) Hypokalemia Current Visit: Yes Status: Acute Assessment and Plan: Corrected with dialysis (8) Anemia in chronic kidney disease, on chronic dialysis Current Visit: Yes Status: Acute Assessment and Plan: We will continue Arixtra. 13 stimulating agents as per protocol. (9) Hyponatremia Current Visit: Yes Status: Acute Assessment and Plan: Most likely hypovolemic hyponatremia in the setting of volume overload due incomplete HD session. Monitor with dialysis DVT Prophylaxis: on eliquis - Time Spent with Patient Total time spent is greater than 50% in coordination of care (as documented) at patient's floor/unit and/or counseling patient: Internal Medicine: Result - Labs CBC & Chem 7: 12/05/18 03:36 12/05/18 03:36 Labs: Short CBC 12/04/18 12/05/18 Range/Units 06:25 03:36 WBC 5.7 (4.3-11.1) K/mcL Hgb 10.1 L (11.5-15.4) g/dL Hct 35.4 (35.3-44.9) % Plt Count 280 (140-400) K/mcL Neutrophils # 5.9 (1.6-8.9) K/mcL BMP 12/05/18 03:36 Sodium 129 L Potassium 3.8 Chloride 93 L Carbon Dioxide 22 L BUN 54 H Creatinine 3.33 H Glucose 141 H Calcium 8.8 - ABG Interpretation ABG results: PT/INR, D-dimer PT 13.2 Seconds (9.4-12.1) H 12/04/18 06:25 Consult Discharge Plan - Plan Referrals: Therese Garcia, [employer]TIQUE FURNITURE REPAIRER [Primary Care Provider] - (3) Hypertension Qualifiers: Hypertension type: essential hypertension Qualified Code(s): I10 - Essential (primary) hypertension (5) Diabetes mellitus Qualifiers: Diabetes mellitus type: type 2 Diabetes mellitus tank terminal gauger insulin use: with correction use Diabetes mellitus complication status: with kidney complications Diabetes mellitus complication detail: with chronic kidney disease Chronic kidney disease stage: on chronic dialysis Qualified Code(s): E11.22 - Type 2 diabetes mellitus with diabetic chronic kidney disease; N18.6 - End stage renal disease; Z79.4 - custodial (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
[2018-12-05] MEDS: predniSONE 5 MG TABLET PO SCH (08:46)
[2018-12-05] MEDS: predniSONE 1 MG TABLET PO SCH (08:46)
[2018-12-05] MEDS: *HR* Amiodarone 200 MG TABLET PO SCH (08:46)
[2018-12-05] MEDS: Apixaban 2.5 MG TABLET PO SCH ×2 (08:46→20:22)
[2018-12-05] MEDS ORDERED: levoFLOXacin 500 MG/100 ML 500 MG/100 ML BAG IVPB SCH (09:00)
[2018-12-05] MEDS ORDERED: *HR* Heparin 10,000 UNIT/10 ML VIAL IV PRN ×2 (09:13)
[2018-12-05] MEDS ORDERED: 0.9 % Sodium Chloride 250 ML IVC PRN (09:13)
[2018-12-05] MEDS ORDERED: 0.9 % Sodium Chloride 1,000 ML PRIME SCH (09:15)
[2018-12-05] MEDS: (Diclofenac Sodium [Voltaren] 1 APPL) TP SCH ×4 (10:15→20:25)
[2018-12-05] MEDS: Insulin DETEMIR 100 UNIT/ML X5UNITS SQ SCH (14:12)
[2018-12-05 14:16] LABS: Acinetobacter baumannii by PCR Not Detected (Not Detect); Candida albicans by PCR Not Detected (Not Detect); Candida glabrata by PCR Not Detected (Not Detect); Candida krusei by PCR Not Detected (Not Detect); Candida parapsilosis by PCR Not Detected (Not Detect); Candida tropicalis by PCR Not Detected (Not Detect); Enterobacter cloacae Cmplx PCR Not Detected (Not Detect); Enterobacteriaceae by PCR Not Detected (Not Detect); Enterococcus by PCR DETECTED (Not Detect); Escherichia coli by PCR Not Detected (Not Detect); Klebsiella oxytoca by PCR Not Detected (Not Detect); Klebsiella pneumoniae by PCR Not Detected (Not Detect); Proteus by PCR Not Detected (Not Detect); Pseudomonas aeruginosa by PCR Not Detected (Not Detect); Serratia marcescens by PCR Not Detected (Not Detect); Staphylococcus aureus by PCR Not Detected (Not Detect); Staphylococcus by PCR Not Detected (Not Detect); Streptococcus agalactiae(B)PCR Not Detected (Not Detect); Streptococcus by PCR Not Detected (Not Detect); Streptococcus pneumoniae PCR Not Detected (Not Detect); Streptococcus pyogenes (A) PCR Not Detected (Not Detect); blaKPC Carbapenem-Resist Gene Not Detected (Not Detect); mecA Methicillin-Resist Gene Not Detected (Not Detect); vanA/B Vancomycin-Resist Genes Not Detected (Not Detect)
--- NOTE | 2018-12-05 15:41 | Nephrology Progress Note ---
Date of Encounter: 12/05/18 Time of Encounter: 15:39 - Assessment and Plan (1) ESRD (end stage renal disease) on dialysis Current Visit: Yes Status: Chronic HD MWF in [place] with Dr. Peraza. HD completed today without complication. Avoid nephrotoxins and renal dose. Strict I/O Renal diet. (2) Elevated troponin Current Visit: Yes Status: Acute Per primary. (3) Hypokalemia Current Visit: Yes Status: Acute Potassium is 3.8 today, stable. (4) Hyponatremia Current Visit: Yes Status: Acute Na is 129, will monitor. (5) Lingular pneumonia Current Visit: Yes Status: Acute Per primary. Subjective Principal diagnosis: chest pain, increased tracheal secreations Interval history: Patient seen and examined. Denies chest pain or shortness of breath. Denies nausea, vomiting or diarrhea. Daughter is at bedside. Objective - Vital Signs Vital signs: Vital Signs Temp Pulse Resp BP Pulse Ox 12/05/18 14:00 97.2 F L 20 131/69 12/05/18 13:15 120/67 12/05/18 13:00 114/62 12/05/18 12:45 108/60 12/05/18 12:30 101/67 12/05/18 12:15 102/51 12/05/18 12:00 109/55 12/05/18 11:45 118/62 12/05/18 11:30 110/47 12/05/18 11:15 102/58 12/05/18 11:00 113/58 12/05/18 10:45 111/61 12/05/18 10:30 113/46 12/05/18 10:15 116/58 12/05/18 10:00 109/53 12/05/18 09:45 98.3 F 18 114/69 12/05/18 07:54 16 98 12/05/18 07:39 98.3 F 56 18 137/64 98 12/05/18 03:49 13 122/62 99 12/05/18 03:22 98.4 F 56 19 122/62 100 12/04/18 23:54 98.3 F 54 16 131/70 100 12/04/18 23:42 15 132/73 100 12/04/18 20:09 16 96 12/04/18 19:02 98.3 F 69 20 132/73 100 12/04/18 16:39 99.0 F Intake and Output 12/04/18 12/05/18 12/05/18 23:59 07:59 15:59 Intake Total 160 / 810 960 / 960 Output Total 3600 / 3600 Balance 160 / 810 -2640 / -2640 Intake: IV Fluids 10 / 60 Maxipime 1,000 MG In Water for 10 10 inj. (sterile) 10 ML @ 300 mls/ hr IVP Q24H KEILA Rx#:[id number] Oral 150 / 750 360 / 360 Intake, Rinseback and Flushes 600 / 600 Output: Urine 0 / 0 Total Dialysis (HD) Output 3600 / 3600 Other: Meal Breakfast Percent of Meal Consumed 90% Weight 68.4 kg Blood Glucose* 123 87 135 Hemodialysis Net Fluid Removed 3000 (mL) Patient Weight 12/05/18 23:59 Weight 68.4 kg - General Appearance General appearance: Present: well-developed, well-nourished EENT: Present: ATNC, hearing intact, vision intact Neck: Present: supple Respiratory: Present: rhonchi Additional Comments: Diminished in bases. Cardiology: Present: normal S1, normal S2 Dialysis Vascular Access: Venous Catheter (Dressing clean dry and intact) Gastrointestinal: Present: normoactive bowel sounds, no tenderness, no guarding Integumentary: Present: no rash, warm and dry Neurologic: Present: alert and oriented x3 Musculoskeletal: Present: no deformities, no erythema Psychiatric: Present: mood/affect appropriate, cooperative - Lab 12/05/18 03:36 12/05/18 03:36 Most recent lab results 12/05/18 03:36 Calcium 8.8 Consult Discharge Plan - Plan Referrals: Therese Garcia WAX POURER [Primary Care Provider] -
[2018-12-05] MEDS: Cefepime HCl 1,000 MG in Water for inj. (sterile) 10 ML IVP SCH (17:25)
[2018-12-05] MEDS ORDERED: Vancomycin 1 EACH in 0.9 % Sodium Chloride 250 ML IVPB PRN (18:00)
[2018-12-05] MEDS: *HR* LORazepam 0.5 MG TABLET PO PRN (18:26)
[2018-12-05] MEDS ORDERED: Insulin LISPRO 300 UNITS/3 ML VIAL SQ SCH (21:00)
[2018-12-06] MEDS: *HR* Acetaminophen w/Cod 300-30 mg 1 TAB TABLET PO PRN ×2 (00:01→11:52)
[2018-12-06] MEDS: *HR* LORazepam 0.5 MG TABLET PO PRN (03:10)
[2018-12-06 05:49] LABS: Hematocrit 40.1 % (35.3-44.9); Hemoglobin 11.1 g/dL (11.5-15.4); Mean Corpuscular HGB Conc 27.7 g/dL (31.6-35.5); Mean Corpuscular Hemoglobin 25.8 pg (28.0-33.3); Mean Platelet Volume 9.7 fL (9.4-12.4); Platelet Count 266 K/mcL (140-400); Red Blood Count 4.31 M/mcL (3.82-4.97); White Blood Count 6.7 K/mcL (4.3-11.1)
[2018-12-06 06:08] LABS: Calcium 8.9 mg/dL (8.6-10.3); Potassium 3.6 mEq/L (3.5-5.1)
[2018-12-06 06:31] LABS: Phosphorous 3.2 mg/dL (2.7-4.5)
[2018-12-06] MEDS: Budesonide/Formoterol 160/4.5 1 PUFF INH IH SCH (08:05)
--- NOTE | 2018-12-06 08:13 | Internal Med Progress Note ---
Hospitalist Progress Note - Encounter Date of Encounter: 12/06/18 Time of Encounter: 08:20 - Subjective Interval History: No acute events overnight - Exam Vitals: Temp Pulse Resp BP Pulse Ox 98.5 F 68 16 136/75 98 12/06/18 07:46 12/06/18 07:46 12/06/18 07:46 12/06/18 07:46 12/06/18 03:44 Exam: General: NAD, decent eye contact, chronically ill appearing, elderly ENT: Chronic trach. Thoracic: decent aeration except faint bibasilar crackles and diminished in L base Cardio: Normal S1 and S2, regular rate and rhythm Abdomen: Soft, nontender, nondistended. Extremities: Warm, well perfused. DP pulses 2+ b/l. No edema. Neuro: awake and fully oriented. Decent memory, diminished concentration and attention. Has trach and therefore verbalizing is difficult. - Assessment and Plan (1) Bacteremia Current Visit: Yes Status: Acute Assessment and Plan: Pt comes in with pneumonia and gram positive bacteremia with enterococcus and gram negative coccobacilli Continue Vanc, cefepime and levaquin. Awaiting sensitivities. ID on board. WIll likely need line holiday (2) Lingular pneumonia Current Visit: Yes Status: Acute Assessment and Plan: Pt has pneumonia with sepsis with gram positive cocci and gram negative coccobacilli bacteremia repeat blood cultures. Continue on vanc and cefepime ID recs appreciated. Pt has had enteroccocus bacteremia in the past. Last echo WNL (3) Tracheostomy dependent Current Visit: Yes Status: Acute Assessment and Plan: Pt has chronic respiratory failure dependent on trachesotomy. Continue to monitor o2 sats and continue respiratory support (4) Elevated troponin Current Visit: Yes Status: Acute Assessment and Plan: EKG was no significant ST-T wave changes, the patient is now chest pain-free, we will trend cardiac enzymes. (5) Hypertension Current Visit: Yes Status: Chronic Assessment and Plan: We will continue to monitor blood pressure while inpatient, and tinea home meds and adjust regimen if indicated (6) History of CVA (cerebrovascular accident) Current Visit: Yes Status: Chronic Assessment and Plan: Stable continue home meds (7) Diabetes mellitus Current Visit: Yes Status: Chronic Assessment and Plan: We we will start the patient and insulin sliding scale with moderate coverage. (8) ESRD (end stage renal disease) on dialysis Current Visit: Yes Status: Chronic Assessment and Plan: Continue hemodialysis per schedule (9) Hypokalemia Current Visit: Yes Status: Acute Assessment and Plan: Corrected with dialysis (10) Anemia in chronic kidney disease, on chronic dialysis Current Visit: Yes Status: Acute Assessment and Plan: We will continue Arixtra. 13 stimulating agents as per protocol. (11) Hyponatremia Current Visit: Yes Status: Acute Assessment and Plan: Most likely hypovolemic hyponatremia in the setting of volume overload due i ncomplete HD session. Monitor with dialysis DVT Prophylaxis: on eliquis - Time Spent with Patient Total time spent is greater than 50% in coordination of care (as documented) at patient's floor/unit and/or counseling patient: Internal Medicine: Result - Labs CBC & Chem 7: 12/06/18 04:51 12/06/18 04:51 Labs: Short CBC 12/06/18 Range/Units 04:51 WBC 6.7 (4.3-11.1) K/mcL Hgb 11.1 L (11.5-15.4) g/dL Hct 40.1 (35.3-44.9) % Plt Count 266 (140-400) K/mcL BMP 12/06/18 04:51 Sodium 134 L Potassium 3.6 Chloride 96 L Carbon Dioxide 24 BUN 22 Creatinine 2.35 H Glucose 111 H Calcium 8.9 - ABG Interpretation ABG results: PT/INR, D-dimer PT 13.2 Seconds (9.4-12.1) H 12/04/18 06:25 - Impressions Impressions Lumbar Spine MRI 12/05/18 17:59 IMPRESSION: 1. Redemonstration of a T12 compression fracture deformity status post prior vertebroplasty with marrow edema surrounding the vertebroplasty cement concerning for incomplete healing. 2. Mild multilevel degenerative changes as above. D/ / Addy Sawant / Addy Sawant Interpreting Provider: Addy Sawant Consult Discharge Plan - Plan Referrals: Therese Garcia, [employer]SEMBL[employer]MENT [Primary Care Provider] - (Therese does home visits with this patient so they will have to call and get her to come out to see patient) (5) Hypertension Qualifiers: Hypertension type: essential hypertension Qualified Code(s): I10 - Essential (primary) hypertension (7) Diabetes mellitus Qualifiers: Diabetes mellitus type: type 2 Diabetes mellitus termite control service representative insulin use: with usp use Diabetes mellitus complication status: with kidney complications Diabetes mellitus complication detail: with chronic kidney disease Chronic kidney disease stage: on chronic dialysis Qualified Code(s): E11.22 - Type 2 diabetes mellitus with diabetic chronic kidney disease; N18.6 - End stage renal disease; Z79.4 - termite control service representative (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
--- NOTE | 2018-12-06 09:49 | Infectious Disease Consult ---
Infectious Disease-Consult - Encounter Date/Time Date of Encounter: 12/06/18 Time of Encounter: 09:36 - Data of Consult Patient: known to practice within the last 3 years Reason for consult: Bacteremia Consult date: 12/06/18 Requesting Physician: Addy Rocha Primary Care Provider: Therese Garcia CNP - [facility] HPI: Ms. Parks is a 78 year old female with a past medical history of an stage renal disease on hemodialysis Monday, Monday, and Monday via right upper chest permacath, CHF, diabetes, chronic respiratory failure status post tracheostomy, COPD on chronic steroid use, hyperlipidemia, hypertension, ND, and breast cancer status post mastectomy. She was admitted to the hospital 12/03/18 for pneumonia, hypokalemia, end-stage renal disease, and elevated troponin. We are consulted 12/06/18 for further workup and treatment recommendations for enterococcus bacteremia. Briefly, the patient 78-year-old female with a past medical history as stated above. The patient is known to the infectious disease services were consulted on her case back in 2016 at which time the patient had acute respiratory failure and bacteremia and was transferred to [facility] or she spent about 3 months. At that time, she developed progression of her chronic kidney disease to end- stage renal disease and was started on dialysis. She also required tracheostomy. He was treated for about 3 months for aspergillosis as well. We were then reconsult on her case back in October when she was diagnosed with group B strep and enterococcus bacteremia with presumed source of hemodialysis catheter versus leg wounds. At that time, due to her multiple comorbidities, we felt that the patient was at too high of a risk to undergo line exchange and we opted to attempt salvage therapy. We were unable to give her vancomycin through her dialysis catheter because her dialysis center refused to administer the medications, so she was given her IV antibiotics at home [facility] for 4 weeks from the first set of negative blood cultures. She was treated through 11/27/18. On Monday of last week, she began to feel ill with poor by mouth intake and generalized weakness. Over the weekend, her symptoms progressively worsen so she presented to the ER for evaluation on the day of admission. Upon arrival, she was febrile, tachycardic, tachypneic. She had a normal white blood cell count. Creatinine was elevated consistent with her end-stage renal disease. LFTs were normal. Troponin was elevated at 0.05. Blood cultures were obtained 2 sets are positive for gram-negative cocci bacilli (Haemophilus influenza per PCR) and gram-positive cocci (enterococcus per PCR) one out of 2 sets. Chest x- ray showed a small left pleural effusion and bibasilar atelectasis left greater than right. CT of the chest, abdomen, and pelvis showed bibasilar scarring with atelectasis with or without pneumonia, posterior inferior lingular pneumonia, and unchanged pulmonary nodules. She was started empirically on vancomycin, aztreonam, and Levaquin. She was admitted to the hospital for further evaluation. During my exam today, the patient endorses a history as stated above. She reports fevers with chills, but denies any rigors at home. Denies any headache or neck pain. Reports worsening shortness of breath with chest pain on Monday. States her cough was at baseline and productive of white sputum. She states her chest pain has resolved, and her breathing remains at baseline. She denies nausea, vomiting, or constipation. Per her daughter, she has had a couple of loose stools, but usually only one per day. She is an uric secondary to her end-stage renal disease. She has multiple skin tears to her entire body and ulcerations to the bilateral lower extremities that are chronic and secondary to possible calciphylaxis. The patient lives at home with her daughter who cares for her. She denies tobacco, alcohol, illicit drug use. Denies recent travel outside the [facility]. - ROS Review of Systems: All systems reviewed and no additional remarkable complaints except as stated. - Results CBC & Chem 7: 12/06/18 04:51 12/06/18 04:51 - Exam Vitals: Temp Pulse Resp BP Pulse Ox 98.5 F 68 14 136/75 96 12/06/18 07:46 12/06/18 07:46 12/06/18 08:05 12/06/18 07:46 12/06/18 08:05 Exam: Head: Atraumatic, normal inspection, normocephalic. Eye: EOMI, PERRLA, no scleral icterus noted. ENT: Mucous membranes moist. No odontogenic infection noted. Neck: Normal inspection, no meningismus. Tracheostomy midline with O2 via trach mask. Respiratory: Clear to auscultation. No rales, respiratory distress, rhonchi, or wheezes noted. Cardiovascular: Regular rate and rhythm, S1 and S2 audible. No murmurs, rubs, or gallops. GI: Soft, nondistended, normal bowel sounds. Generalized tenderness noted. Extremities: No joint swelling, pedal edema, or tenderness noted. Multiple areas of ecchymosis and skin tears noted to the bilateral upper and bilateral lower extremities. Bilateral lower extremity dressings are clean, dry, and intact. Neurological: Alert, oriented 3, no focal deficits. Psychiatric: normal affect, normal mood. Skin: Dry, warm. Normal color. No rashes. Ipratropium/Albuterol Neb [Duoneb] 3 ml IH Q6HR PRN 08/22/16 [History] Ascorbate Calcium [Vitamin C] 500 mg PO DAILY 01/31/17 [History] Atorvastatin Calcium [Lipitor] 20 mg PO HS 01/31/17 [History] Guaifenesin [Mucinex] 600 mg PO BID 01/31/17 [History] Insulin LISPRO [HumaLOG] 0 - 10 units SQ TIDAC 01/31/17 [History] LORazepam [Ativan] 0.5 mg PO TID PRN 01/31/17 [History] Albuterol Sulfate [Proventil Hfa] 2 puff IH Q2H PRN 07/06/17 [History] Darbepoetin [Aranesp] 80 mcg IV Q2W 07/06/17 [History] Albuterol Neb [Proventil Neb] 2.5 mg IH Q6H PRN 07/19/17 [History] Pantoprazole Sodium [Protonix] 40 mg PO BID 07/19/17 [History] Renal Vitamin [Renal Caps Softgel] 1 mg PO DAILY 07/19/17 [History] Budesonide/Formoterol 160/4.5 [Symbicort 160/4.5] 2 puff IH BIDR 03/07/18 [History] Calcitriol 0.5 mcg PO MOWEFR 03/07/18 [History] Insulin Degludec [Tresiba Flextouch U-100] 20 unit SQ DAILY 03/07/18 [History] Metoprolol [Lopressor] 12.5 mg PO BID MDD HOLD SYSTOLIC <100 PULSE<60 03/07/18 [History] Amiodarone [Cordarone] 200 mg PO DAILY 09/04/18 [History] Buspirone HCl [Buspar] 15 mg PO BID 09/04/18 [History] Lanthanum Carbonate [Fosrenol] 1,000 mg PO TIDWM 09/04/18 [History] Venlafaxine [Effexor] 37.5 mg PO DAILY 09/04/18 [History] Diclofenac Sodium [Voltaren] 1 appl TP QID 10/25/18 [History] Sennosides [Senna] 8.6 mg PO DAILY PRN 10/25/18 [History] predniSONE [PredniSONE] 7 mg PO DAILY 10/25/18 [History] Acetaminophen w/Cod 300-30 mg [Tylenol w/Codeine #3] 1 tab PO Q6H PRN 10/26/18 [History] Apixaban [Eliquis] 2.5 mg PO BID 12/03/18 [History] Allergy/AdvReac Type Severity Reaction Status Date / Time aspirin [ASA] Allergy Swelling Verified 10/26/18 13:34 of Lip/Tongue/Throat NSAIDS (Non-Steroidal Allergy Swelling Verified 10/26/18 13:34 Anti-Inflamma of Lip/Tongue/Throat Penicillins Allergy Swelling Verified 10/26/18 13:34 of Lip/Tongue/Throat azithromycin AdvReac Fever Verified 10/26/18 13:34 iron AdvReac Unknown Verified 10/26/18 13:34 - Assessment and Plan (1) Sepsis Status: Acute The patient had 3 sepsis criteria on admission. Likely secondary to pneumonia and bacteremia. Improved. Afebrile. Tachycardia resolved. Tachypnea resolved. Blood cultures drawn 12/03/18 are +1 out of 2 sets for Haemophilus influenza and enterococcus. Repeat blood cultures drawn 12/05/18 are pending 2 sets. Qualifiers: Sepsis type: Streptococcus, other SNOMED Code(s): 71763692 (2) Bacteremia Status: Acute Causative organism: Enterococcus and Haemophilus influenza per PCR. Source: Enterococcus likely recurrent due to seeding of the dialysis catheter versus uncontrolled source. Haemophilus influenza source unclear. Blood cultures drawn 12/03/18 are +1 out of 2 sets for Haemophilus influenza and enterococcus. Repeat blood cultures drawn 12/05/18 are pending 2 sets. The patient previously completed 4 weeks of IV vancomycin, but has had recurrence of the enterococcus bacteremia. Concern that the patient's dialysis catheter is seated despite the use of IV antibiotics. We were unable to give the antibiotics through the dialysis catheter or perform an IV vancomycin lock due to the patient's dialysis center refusing to do any of this because we did not have positive cultures from her dialysis catheter. No endocarditis stigmata noted on exam. Currently on vancomycin, cefepime, and Levaquin. SNOMED Code(s): 0100397 (3) HCAP (healthcare-associated pneumonia) Status: Acute Location: Posterior inferior lingula. Causative organism: PSEA, sensitivities pending. Currently on Vanc, Cefepime, and Levaquin. SNOMED Code(s): 604610096, 799183070 (4) Chest pain Status: Acute Troponin 0.05. Resolved. Further workup and management per the primary team. Qualifiers: Chest pain type: other chest pain Qualified Code(s): R07.89 - Other chest pain; R07.8 - Other chest pain SNOMED Code(s): 15837493 (5) Elevated troponin Status: Resolved SNOMED Code(s): 388078050, 440599671, 775119325 (6) Afib Status: Chronic Qualifiers: Atrial fibrillation type: chronic Qualified Code(s): I48.2 - Chronic atrial fibrillation SNOMED Code(s): 52515614 (7) Anemia in chronic kidney disease (CKD) Status: Chronic Qualifiers: Chronic kidney disease stage: on chronic dialysis Qualified Code(s): N18.6 - End stage renal disease; D63.1 - Anemia in chronic kidney disease; Z99.2 - Dependence on renal dialysis SNOMED Code(s): 462560906 (8) 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 SNOMED Code(s): 820674308 (9) CKD (chronic kidney disease) stage V requiring chronic dialysis Status: Chronic Nephrology consulted and following. SNOMED Code(s): 011012058 (10) COPD (chronic obstructive pulmonary disease) Status: Chronic Qualifiers: COPD type: COPD with acute lower respiratory infection Qualified Code(s): J44.0 - Chronic obstructive pulmonary disease with acute lower respiratory infection SNOMED Code(s): 77564029 (11) Diabetes mellitus Status: Chronic Qualifiers: Diabetes mellitus type: type 2 Diabetes mellitus penitentiary insulin use: with penitentiary use Diabetes mellitus complication status: with kidney complications Diabetes mellitus complication detail: with chronic kidney disease Chronic kidney disease stage: on chronic dialysis Qualified Code(s): E11.22 - Type 2 diabetes mellitus with diabetic chronic kidney disease; N18.6 - End stage renal disease; Z79.4 - intermediate manager (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 SNOMED Code(s): 13952360 (12) Tracheostomy dependent Status: Acute SNOMED Code(s): 018041618 - Recommendations Recommendations: Await final ID and sensitivities on blood cultures. Await repeat blood cultures to finalize. ESRD management per the nephrology team. Recommend removal of the patient's dialysis catheter. Patient high risk for removal/replacement of the line based on previous experiences. Additionally, she is on Eliquis, which would increase the risk of bleeding from her catheter site with removal. Discussed with nephrology. The patient may benefit from transfer to tertiary care center for dialysis catheter removal/replacement and/or second opinion on treatment options. Continue Vancomycin IV. Pharmacy to dose. Goal trough ~15. Continue cefepime 1 gram IV daily. Continue Levaquin Q48H, but increase to 750mg. Duration of treatment depends on the clinical picture. Dose-adjust medications for HD status. Past Med Surg Social Fam HX - Past Medical History Attestation: Yes The following information was validated with the patient. Source: patient, old records reviewed, nursing notes reviewed Medical history: atrial fibrillation, cancer, CHF, COPD, CVA, diabetes, dialysis, hyperlipidemia, hypertension, myocardial infarction, renal disease Additional medical history: right breast Psychiatric history: anxiety, depression - Past Surgical History Surgical History: appendectomy, breast surgery, cholecystectomy, colectomy, hyst erectomy, other Additional surgical history: trach. peg tube removed - Social History Smoking Status: Former smoker Smokeless Tobacco Status: No Alcohol use: none Drug use: none Occupational status: retired, disabled Current living situation: Home, With Family Activity Level: Bed bound Recent Out of Country Travel Within the Last 8 Weeks: No Exposure or Possible Exposure to Illness During Travel: No - Family History Mother Family Member Ethnicity: Non- Living Status: Hx Family Cardiac Disorders: No Hx Family Respiratory Disorders: No Hx Family Cancer: Yes (colon) Hx Family GI Disorders: No Hx Family Endocrine Disorder: No Hx Family Neuromuscular Disorders: No Hx Family Neurologic Disorders: No Hx Family HEENT Disorders: No Hx Family Autoimmune Disorders: No Father Living Status: Hx Family Cardiac Disorders: No Hx Family Respiratory Disorders: No Hx Family Cancer: Yes Hx Family GI Disorders: Yes Hx Family Endocrine Disorder: Yes (diabetic) Hx Family Neuromuscular Disorders: No Hx Family Neurologic Disorders: No Hx Family HEENT Disorders: No Hx Family Autoimmune Disorders: No Consult Discharge Plan - Plan Referrals: Therese Garcia CNP [Primary Care Provider] - (Therese does home visits with this patient so they will have to call and get her to come out to see patient) - Attending Attestation I have personally performed a face to face evaluation on this patient. I have reviewed and agree with the care plan. History and Exam by me shows: This is an addendum to original report dictated by Dorothy Marin CNP. Please refer to Dorothy's note for full detail. Any with above history of present illness, review of system and physical exam findings. Patient is an unfortunate 78-year-old woman who has extensive past medical history mentioned below came in and was found to have bacteremia with Enterococcus faecalis. Previously she was treated for Enterococcus faecalis bacteremia and we thought the source is likely the dialysis catheter the right chest with was high risk to remove so we try to treat through it and see if that will take care of it. Patient also had issues with her back including a fractu re in a cement. There is also some concern that maybe it was seated. Patient. Of the antibiotics and 4 days later came back with sepsis like picture. We are asked to evaluate the patient's make further recommendations. Daughter is at bedside and I discussed with her that the case is complicated and maybe we have to transferred north and she was very receptive to the idea. 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 Await repeat blood cultures to finalize. ESRD management per the nephrology team. Recommend removal of the patient's dialysis catheter. Patient high risk for removal/replacement of the line based on previous experiences. Additionally, she is on Eliquis, which would increase the risk of bleeding from her catheter site with removal. Discussed with nephrology. The patient may benefit from transfer to tertiary care center for dialysis catheter removal/replacement and/or second opinion on treatment options. Continue Vancomycin IV. Pharmacy to dose. Goal trough ~15. Continue cefepime 1 gram IV daily. Continue Levaquin Q48H, but increase to 750mg. Duration of treatment depends on the clinical picture. Dose-adjust medications for HD status.
[2018-12-06] MEDS: Insulin LISPRO 300 UNITS/3 ML VIAL SQ SCH ×3 (10:22→17:16)
[2018-12-06] MEDS: (Diclofenac Sodium [Voltaren] 1 APPL) TP SCH ×3 (10:22→17:09)
--- NOTE | 2018-12-06 10:23 | Nephrology Progress Note ---
Date of Encounter: 12/06/18 Time of Encounter: 10:21 - Assessment and Plan (1) ESRD (end stage renal disease) on dialysis Current Visit: Yes Status: Chronic HD MWF in [place] with Dr. Peraza. HD completed today without complication. Avoid nephrotoxins and renal dose. Strict I/O Renal diet. (2) Bacteremia Current Visit: Yes Status: Acute Tunneled HD cath needs to be removed due to recurrent bacteremia. From renal standpoint given that patient is on Eliquis and does need a new T unneled line, a transfer to tertiary care center might be in order. She has a high risk of bleeding and high risk for complications. Per the family, the last time the Tunneled line was exchanged over wire, it was difficult. Appreciate recommendations per ID. (3) Elevated troponin Current Visit: Yes Status: Acute Per primary. (4) Hypokalemia Current Visit: Yes Status: Acute Potassium is 3.6 today, stable. (5) Hyponatremia Current Visit: Yes Status: Acute Na is 134, will monitor. (6) Lingular pneumonia Current Visit: Yes Status: Acute Per primary. Subjective Principal diagnosis: chest pain, increased tracheal secreations Interval history: Patient seen and examined. Daughter at bedside. Denies chest pain or shortness of breath. Denies nausea, vomiting or diarrhea. Objective - Vital Signs Vital signs: Vital Signs Temp Pulse Resp BP Pulse Ox 12/06/18 08:05 14 96 12/06/18 07:46 98.5 F 68 16 136/75 12/06/18 03:44 16 98 12/06/18 03:02 98.6 F 66 17 121/68 98 12/05/18 23:43 98.5 F 66 16 111/64 98 12/05/18 23:21 14 95 12/05/18 22:34 16 92 12/05/18 20:25 68 12/05/18 19:44 98.2 F 67 18 121/61 95 12/05/18 16:32 98.2 F 64 17 127/69 98 12/05/18 14:00 97.2 F L 20 131/69 12/05/18 13:15 120/67 12/05/18 13:00 114/62 12/05/18 12:45 108/60 12/05/18 12:30 101/67 12/05/18 12:15 102/51 12/05/18 12:00 109/55 12/05/18 11:45 118/62 12/05/18 11:30 110/47 12/05/18 11:15 102/58 12/05/18 11:00 113/58 12/05/18 10:45 111/61 12/05/18 10:30 113/46 Intake and Output 12/05/18 12/06/18 12/06/18 23:59 07:59 15:59 Intake Total 370 / 1430 120 / 120 Balance 370 / -2170 120 / 120 Intake: IV Fluids Maxipime 1,000 MG In Water for inj. (sterile) 10 ML @ 300 mls/ hr IVP Q24H KEILA Rx#:[id number] Oral 360 / 720 120 / 120 Other: Meal Dinner Percent of Meal Consumed 100% Blood Glucose* 151 103 - General Appearance General appearance: Present: well-developed, well-nourished EENT: Present: ATNC, hearing intact, vision intact Neck: Present: supple Respiratory: Present: course breath sounds Cardiology: Present: no edema, normal S1, normal S2 Dialysis Vascular Access: Venous Catheter (DRSG C/D/I) Gastrointestinal: Present: normoactive bowel sounds, no tenderness, no guarding Integumentary: Present: no rash, warm and dry Neurologic: Present: alert and oriented x3 Musculoskeletal: Present: no deformities, no erythema Psychiatric: Present: mood/affect appropriate, cooperative - Lab 12/06/18 04:51 12/06/18 04:51 Most recent lab results 12/06/18 04:51 Calcium 8.9 Phosphorus 3.2 Magnesium 2.0 Consult Discharge Plan - Plan Referrals: Therese Garcia RAB[facility]EDER [Primary Care Provider] - (Therese does home visits with this patient so they will have to call and get her to come out to see patient)
[2018-12-06] MEDS: *HR* Amiodarone 200 MG TABLET PO SCH (10:24)
[2018-12-06] MEDS: predniSONE 1 MG TABLET PO SCH (10:24)
[2018-12-06] MEDS: Apixaban 2.5 MG TABLET PO SCH (10:24)
[2018-12-06] MEDS: predniSONE 5 MG TABLET PO SCH (10:25)
[2018-12-06] MEDS: Insulin DETEMIR 100 UNIT/ML X5UNITS SQ SCH (10:25)
[2018-12-06 17:06] VITALS: BP 117/56
[2018-12-06] MEDS: Cefepime HCl 1,000 MG in Water for inj. (sterile) 10 ML IVP SCH (17:10)
--- NOTE | 2018-12-06 17:31 | Discharge Summary ---
Date of Encounter: 12/06/18 Time of Encounter: 16:00 - Discharge Diagnosis (1) Bacteremia Priority: Primary Status: Acute Assessment and Plan: 78 year old female with past medical history of chronic resp failure on trach and mechanical ventilation, end-stage renal disease with dialysis Monday via right tunneled hemodialysis catheter and who was just discharged from the hospital after she was treated for bacteremia secondary to dialysis catheter and now presenting the ER via EMS with a complaint of chest pain that started during her dialysis session. As per daughter at bedside 2 hours into dialysis the patient started complaining of chest pain associated with shortness of breath and excessive amount of secretions through her trach. The patient also is complaining of right lower quadrant abdomen pain. At the time the patient is tachycardiac and 6 L via trach collar. The patient was evaluated by the ER staff and his CAT scan of the chest revealed lingular pneumonia. She was assessed a with a bacterial HCAP and started on broad spectrum antibiotics with vanc, levaquin and cefepime. Blood cultures were obtained and grew enterococcus and hemophilus influenza. ID was consulted for recurrent gram positive bacteremia secondary to enterococcus. She had recently completed a 4 week course of vancomycin for enterococcus and blood cultures were positive for enterococus on this admission within 4 days of stopping vanc. ID think she will need her perma cath taken out and given a line holiday She is also a high risk patient with multiple possible sources of persistent bacteremia given the fact that she has a permacath, has had back surgery in the past with poor healing and has been unable to get a VIC due to her being trach dependent. They therefore recommended transfer to a tertiary care center to workup and treat her bacteremia. She was accepted at [facility]. 35 minutes was spent discharging this patient (2) Lingular pneumonia Priority: Primary Status: Acute (3) Tracheostomy dependent Priority: Primary Status: Acute (4) Elevated troponin Priority: Primary Status: Acute (5) Hypertension Priority: Primary Status: Chronic Qualifiers: Hypertension type: essential hypertension Qualified Code(s): I10 - Essential (primary) hypertension (6) History of CVA (cerebrovascular accident) Priority: Primary Status: Chronic (7) Diabetes mellitus Priority: Primary Status: Chronic Qualifiers: Diabetes mellitus type: type 2 Diabetes mellitus intermediate designer insulin use: with intermediate designer use Diabetes mellitus complication status: with kidney complications Diabetes mellitus complication detail: with chronic kidney disease Chronic kidney disease stage: on chronic dialysis Qualified Code(s): E11.22 - Type 2 diabetes mellitus with diabetic chronic kidney disease; N18.6 - End stage renal disease; Z79.4 - keno terminal operator (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 (8) ESRD (end stage renal disease) on dialysis Priority: Primary Status: Chronic (9) Hypokalemia Priority: Primary Status: Acute (10) Anemia in chronic kidney disease, on chronic dialysis Priority: Primary Status: Acute (11) Hyponatremia Priority: Primary Status: Acute Hospital course: Ms. Parks is a 78 year old female - Time Spent with Patient Total time spent providing and/or coordinating discharge services: - Discharge Medications Prescriptions: Continued Ipratropium/Albuterol Neb [Duoneb] 3 ml IH Q6HR PRN PRN Reason: Shortness Of Breath Ascorbate Calcium [Vitamin C] 500 mg PO DAILY Atorvastatin Calcium [Lipitor] 20 mg PO HS Guaifenesin [Mucinex] 600 mg PO BID Insulin LISPRO [HumaLOG] 0 - 10 units SQ TIDAC LORazepam [Ativan] 0.5 mg PO TID PRN PRN Reason: Anxiety Darbepoetin [Aranesp] 80 mcg IV Q2W Albuterol Sulfate [Proventil Hfa] 2 puff IH Q2H PRN PRN Reason: Wheezing Albuterol Neb [Proventil Neb] 2.5 mg IH Q6H PRN PRN Reason: Shortness Of Breath Pantoprazole Sodium [Protonix] 40 mg PO BID Renal Vitamin [Renal Caps Softgel] 1 mg PO DAILY Calcitriol 0.5 mcg PO MOWEFR Insulin Degludec [Tresiba Flextouch U-100] 20 unit SQ DAILY Metoprolol [Lopressor] 12.5 mg PO BID MDD HOLD SYSTOLIC <100 PULSE<60 Budesonide/Formoterol 160/4.5 [Symbicort 160/4.5] 2 puff IH BIDR Buspirone HCl [Buspar] 15 mg PO BID Lanthanum Carbonate [Fosrenol] 1,000 mg PO TIDWM Venlafaxine [Effexor] 37.5 mg PO DAILY Amiodarone [Cordarone] 200 mg PO DAILY Diclofenac Sodium [Voltaren] 1 appl TP QID predniSONE [PredniSONE] 7 mg PO DAILY Sennosides [Senna] 8.6 mg PO DAILY PRN PRN Reason: Constipation Acetaminophen w/Cod 300-30 mg [Tylenol w/Codeine #3] 1 tab PO Q6H PRN PRN Reason: Pain Apixaban [Eliquis] 2.5 mg PO BID Home Medications: Ipratropium/Albuterol Neb [Duoneb] 3 ml IH Q6HR PRN 08/22/16 [History] Ascorbate Calcium [Vitamin C] 500 mg PO DAILY 01/31/17 [History] Atorvastatin Calcium [Lipitor] 20 mg PO HS 01/31/17 [History] Guaifenesin [Mucinex] 600 mg PO BID 01/31/17 [History] Insulin LISPRO [HumaLOG] 0 - 10 units SQ TIDAC 01/31/17 [History] LORazepam [Ativan] 0.5 mg PO TID PRN 01/31/17 [History] Albuterol Sulfate [Proventil Hfa] 2 puff IH Q2H PRN 07/06/17 [History] Darbepoetin [Aranesp] 80 mcg IV Q2W 07/06/17 [History] Albuterol Neb [Proventil Neb] 2.5 mg IH Q6H PRN 07/19/17 [History] Pantoprazole Sodium [Protonix] 40 mg PO BID 07/19/17 [History] Renal Vitamin [Renal Caps Softgel] 1 mg PO DAILY 07/19/17 [History] Budesonide/Formoterol 160/4.5 [Symbicort 160/4.5] 2 puff IH BIDR 03/07/18 [History] Calcitriol 0.5 mcg PO MOWEFR 03/07/18 [History] Insulin Degludec [Tresiba Flextouch U-100] 20 unit SQ DAILY 03/07/18 [History] Metoprolol [Lopressor] 12.5 mg PO BID MDD HOLD SYSTOLIC <100 PULSE<60 03/07/18 [History] Amiodarone [Cordarone] 200 mg PO DAILY 09/04/18 [History] Buspirone HCl [Buspar] 15 mg PO BID 09/04/18 [History] Lanthanum Carbonate [Fosrenol] 1,000 mg PO TIDWM 09/04/18 [History] Venlafaxine [Effexor] 37.5 mg PO DAILY 09/04/18 [History] Diclofenac Sodium [Voltaren] 1 appl TP QID 10/25/18 [History] Sennosides [Senna] 8.6 mg PO DAILY PRN 10/25/18 [History] predniSONE [PredniSONE] 7 mg PO DAILY 10/25/18 [History] Acetaminophen w/Cod 300-30 mg [Tylenol w/Codeine #3] 1 tab PO Q6H PRN 10/26/18 [History] Apixaban [Eliquis] 2.5 mg PO BID 12/03/18 [History] Allergies/Adverse Reactions: Allergy/AdvReac Type Severity Reaction Status Date / Time aspirin [ASA] Allergy Swelling Verified 10/26/18 13:34 of Lip/Tongue/Throat NSAIDS (Non-Steroidal Allergy Swelling Verified 10/26/18 13:34 Anti-Inflamma of Lip/Tongue/Throat Penicillins Allergy Swelling Verified 10/26/18 13:34 of Lip/Tongue/Throat azithromycin AdvReac Fever Verified 10/26/18 13:34 iron AdvReac Unknown Verified 10/26/18 13:34 Date of admission: 12/04/18 16:47 Primary care physician: Therese Garcia CNP Consults: 12/04/18 10:49 Consult to Wound Care [CONS] Routine Reason for Consult: chronic wounds Call Completed: No 12/04/18 11:05 Consult to Nephrology [CONS] Routine Consulting Provider: Kidney Nicole/NICHOLE/CARMELO/LAURENCE Reason for Consult: esrd on hd mwf Call Completed: No 12/05/18 09:15 Consult to Dialysis [CONS] ONCE 12/05/18 17:36 Consult to Infectious Diseases [CONS] Routine Consulting Provider: Infectious Disease Nicole Reason for Consult: gram positive cocci in blood likely recurrent enterocci Call Completed: No 12/06/18 09:01 Consult to Nurse Navigator [CONS] Routine Comment: pneumonia - Constitutional Vitals: Temp Pulse Resp BP Pulse Ox 98.5 F 56 17 117/56 99 12/06/18 17:01 12/06/18 17:01 12/06/18 17:01 12/06/18 17:01 12/06/18 17:01 General appearance: Present: A&O X 3 Exam: General: NAD, decent eye contact, chronically ill appearing, elderly ENT: Chronic trach. Thoracic: decent aeration except faint bibasilar crackles and diminished in L base Cardio: Normal S1 and S2, regular rate and rhythm Abdomen: Soft, nontender, nondistended. Extremities: Warm, well perfused. DP pulses 2+ b/l. No edema. Neuro: awake and fully oriented. Decent memory, diminished concentration and attention. Has trach and therefore verbalizing is difficult. - Patient Status Disposition: Transfer Critical Access Hosp Condition: Fair - Discharge Instructions Follow Up With: Therese Garcia RN CLINICIAN [Primary Care Provider] - (Therese does home visits with this patient so they will have to call and get her to come out to see patient) Forms: ED Satisfaction Letter
== END 2018-12-06 20:29 | disposition critical access hospital (66) | DRG 871 ==
LOC: EMEROOARM 16:49 → ICNU 16:49 → SUATTDRO 21:43 → ICNU 22:35 → 2NNU 12-04 18:02
PROVIDERS: ADMIT Family Medicine; ATTEND Internal Medicine

== ENCOUNTER 2019-01-18 13:54 | Inpatient (IN) ==
[2019-01-18 14:20] LABS: VBG HCO3 29 mEq/L (21-27); VBG PCO2 48 mmHg (41-51); VBG PH 7.39 pH Units (7.32-7.42); VBG PO2 46 mmHg (25-50)
[2019-01-18 14:31] LABS: Basophils % 0.1 %; Eosinophils # 0.4 K/mcL (0.0-0.6); Eosinophils % 2.3 %; Hematocrit 40.9 % (35.3-44.9); Hemoglobin 11.9 g/dL (11.5-15.4); Immature Granulocytes % 1.1 % (0-4); Lymphocytes # 0.7 K/mcL (0.6-4.6); Lymphocytes % 3.8 %; Mean Corpuscular HGB Conc 29.1 g/dL (31.6-35.5); Mean Corpuscular Hemoglobin 27.6 pg (28.0-33.3); Mean Corpuscular Volume 94.9 fL (83.0-100.0); Monocytes # 0.8 K/mcL (0.0-1.3); Monocytes % 4.3 %; Neutrophils # 15.3 K/mcL (1.6-8.9); Platelet Count 251 K/mcL (140-400); Red Blood Count 4.31 M/mcL (3.82-4.97); Red Cell Distribution Width 20.4 % (11.5-14.5); Segmented Neutrophils % 88.4 %; White Blood Count 17.3 K/mcL (4.3-11.1)
[2019-01-18] MEDS ORDERED: levoFLOXacin 750 MG/150 ML 750 MG/150 ML BAG IVPB ONE (14:34)
[2019-01-18 14:39] LABS: INR 1.3; Prothrombin Time 14.9 Seconds (9.4-12.1)
[2019-01-18] MEDS ORDERED: Clindamycin 600 MG/50 ML 600 MG/50 ML IV.SOLN IVPB STA (14:52)
[2019-01-18 14:56] LABS: Troponin I 0.05 ng/mL (< 0.04)
[2019-01-18] MEDS ORDERED: Cefepime HCl 2,000 MG in Water for inj. (sterile) 20 ML IVP ONE (15:00)
[2019-01-18 15:07] LABS: Calcium 8.7 mg/dL (8.6-10.3); Potassium 3.3 mEq/L (3.5-5.1)
--- NOTE | 2019-01-18 15:47 | Emergency Department Note ---
Disposition Clinical Impression: Ventilator-acquired pneumonia Disposition: Admitted As Inpatient Condition: Fair Time of Disposition: 16:20 SOB HPI - General Chief Complaint: ED Shortness of Breath/Dyspnea Stated Complaint: LISHA Time Seen by Provider: 01/18/19 13:57 Source: EMS Mode of arrival: ambulatory Limitations: physical limitation Nursing Notes Reviewed: Yes Vital Signs Reviewed: Yes - History of Present Illness 78-year-old female chronic trach as well as ventilated patient home at night. As the emergency department for decreasing oxygen saturation. He knows that she is a lot weaker and not acting her normal self also breathing a lot faster. Family said they she has felt feverish but not hot any fevers. She has no abdominal pain no chest pain but has had a hard time breathing. Otherwise there is no other complaints at this time. She recently stopped meropenem antibiotic for a previous pneumonia approximately 1.5 weeks ago. - Related Data Home Medications Medication Instructions Recorded Confirmed Ipratropium/Albuterol Neb [Duoneb] 3 ml IH Q6HR PRN 08/22/16 12/03/18 Ascorbate Calcium [Vitamin C] 500 mg PO DAILY 01/31/17 12/03/18 Atorvastatin Calcium [Lipitor] 20 mg PO HS 01/31/17 12/03/18 Guaifenesin [Mucinex] 600 mg PO BID 01/31/17 12/03/18 Insulin LISPRO [HumaLOG] 0 - 10 units SQ TIDAC 01/31/17 12/03/18 LORazepam [Ativan] 0.5 mg PO TID PRN 01/31/17 12/03/18 Albuterol Sulfate [Proventil Hfa] 2 puff IH Q2H PRN 07/06/17 12/03/18 Darbepoetin [Aranesp] 80 mcg IV Q2W 07/06/17 12/03/18 Albuterol Neb [Proventil Neb] 2.5 mg IH Q6H PRN 07/19/17 12/03/18 Pantoprazole Sodium [Protonix] 40 mg PO BID 07/19/17 12/03/18 Renal Vitamin [Renal Caps Softgel] 1 mg PO DAILY 07/19/17 12/03/18 Budesonide/Formoterol 160/4.5 2 puff IH BIDR 03/07/18 12/03/18 [Symbicort 160/4.5] Calcitriol 0.5 mcg PO MOWEFR 03/07/18 12/03/18 Insulin Degludec [Tresiba 20 unit SQ DAILY 03/07/18 12/03/18 Flextouch U-100] Metoprolol [Lopressor] 12.5 mg PO BID MDD HOLD SYSTOLIC 03/07/18 12/03/18 <100 PULSE<60 Amiodarone [Cordarone] 200 mg PO DAILY 09/04/18 12/03/18 Buspirone HCl [Buspar] 15 mg PO BID 09/04/18 12/03/18 Lanthanum Carbonate [Fosrenol] 1,000 mg PO TIDWM 09/04/18 12/03/18 Venlafaxine [Effexor] 37.5 mg PO DAILY 09/04/18 12/03/18 Diclofenac Sodium [Voltaren] 1 appl TP QID 10/25/18 12/03/18 Sennosides [Senna] 8.6 mg PO DAILY PRN 10/25/18 12/03/18 predniSONE [PredniSONE] 7 mg PO DAILY 10/25/18 12/03/18 Acetaminophen w/Cod 300-30 mg 1 tab PO Q6H PRN 10/26/18 12/03/18 [Tylenol w/Codeine #3] Apixaban [Eliquis] 2.5 mg PO BID 12/03/18 12/05/18 Allergies Allergy/AdvReac Type Severity Reaction Status Date / Time aspirin [ASA] Allergy Swelling Verified 10/26/18 13:34 of Lip/Tongue/Throat NSAIDS (Non-Steroidal Allergy Swelling Verified 10/26/18 13:34 Anti-Inflamma of Lip/Tongue/Throat Penicillins Allergy Swelling Verified 10/26/18 13:34 of Lip/Tongue/Throat azithromycin AdvReac Fever Verified 10/26/18 13:34 iron AdvReac Unknown Verified 10/26/18 13:34 All systems ED: reviewed and negative except as stated. Review of Systems: As Per HPI Past Medical History - Past Medical History Attestation: Yes The following information was validated with the patient. Source: patient Medical history: Reports: atrial fibrillation, cancer, CHF, COPD, CVA, diabetes, dialysis, hyperlipidemia, hypertension, myocardial infarction, renal disease Surgical history: Reports: appendectomy, breast surgery, cholecystectomy, colec jesse, hysterectomy, other Psychiatric history: Reports: anxiety, depression LEGAL NURSE CONSULTANT history: Reports: no LEGAL NURSE CONSULTANT history - Social History Smoking Status: Former smoker Smokeless Tobacco Status: No Alcohol use: Reports: none Drug use: Reports: none Physical Exam - General Limitations: physical limitation General appearance: alert, in no apparent distress - Head Head exam: atraumatic, normocephalic, normal inspection - Eye Eye exam: Present: normal appearance, PERRL, EOMI - ENT ENT exam: normal exam, normal oropharynx, mucous membranes moist - Neck Neck exam: Present: normal inspection, full ROM, trachea midline - Chest Chest inspection: Present: normal inspection, symmetric chest wall rise - Respiratory Respiratory exam: Present: wheezes (And rhonchi bilaterally). Absent: respiratory distress, accessory muscle use - Cardiovascular Cardiovascular exam: Present: regular rate, normal rhythm, normal heart sounds - Abdominal Exam Abdominal exam: Present: soft, Non-Tender, normal bowel sounds. Absent: tenderness, distention, guarding, rebound, rigidity - Extremities Exam Extremities exam: Present: normal inspection, full ROM. Absent: tenderness, pedal edema - Back Exam Back exam: Present: normal inspection, full ROM. Absent: tenderness, CVA tenderness (R), CVA tenderness (L) - Neurological Exam Neurological exam: Present: alert, oriented X3 - Skin Skin exam: Present: warm, dry, intact, normal color Course Vital Signs Temperature 98.7 F 01/18/19 13:56 Pulse Rate 94 01/18/19 13:56 Respiratory Rate 20 01/18/19 13:56 Blood Pressure 119/68 01/18/19 13:56 O2 Sat by Pulse Oximetry 88 01/18/19 13:56 Temperature 98.7 F 01/18/19 13:56 Pulse Rate 75 01/18/19 15:35 Respiratory Rate 20 01/18/19 15:35 Blood Pressure 116/102 01/18/19 15:35 O2 Sat by Pulse Oximetry 96 01/18/19 15:35 Oxygen Delivery Oxygen Delivery Trach Mask Shortness of Breath/Dyspnea - [facility] Narrative Medical decision making narrative: Patient was at dialysis only did receive one hour of dialysis prior to coming he re. She most likely has pneumonia based on the white count was seen on chest x- ray. Patient is trach vent. We did suction did get mild congestion out of there. Talked with pharmacy about antibiotic regimen started her on clindamycin, vancomycin, cefepime. Patient stable at this time. Spoke with Dr. Harley who agreed to admit the patient to their service. Patient admitted in stable condition. Chest X-Ray 01/18/19 14:00 IMPRESSION: Right upper and left lower lobe consolidative infiltrates with small pleural effusions. D/ / 01/18/2019 14:37:16 Jd Davis MD / [email or web address] Interpreting Provider: Jd Davis MD - Medical Records Medical records reviewed: Yes I reviewed the patient's medical records. - Lab Data Lab results reviewed: Yes I reviewed the patient's lab results. Result diagrams: 01/18/19 14:06 01/18/19 14:06 Lab Results 01/18/19 01/18/19 01/18/19 Range/Units 14:06 14:06 14:06 WBC 17.3 H (4.3-11.1) K/mcL RBC 4.31 (3.82-4.97) M/mcL Hgb 11.9 (11.5-15.4) g/dL Hct 40.9 (35.3-44.9) % MCV 94.9 (83.0-100.0) fL MCH 27.6 L (28.0-33.3) pg MCHC 29.1 L (31.6-35.5) g/dL RDW 20.4 H (11.5-14.5) % Plt Count 251 (140-400) K/mcL MPV 10.0 (9.4-12.4) fL Immature Gran % 1.1 (0-4) % Seg Neutrophils % 88.4 % Lymphocytes % 3.8 % Monocytes % 4.3 % Eosinophils % 2.3 % Basophils % 0.1 % Neutrophils # 15.3 H (1.6-8.9) K/mcL Lymphocytes # 0.7 (0.6-4.6) K/mcL Monocytes # 0.8 (0.0-1.3) K/mcL Eosinophils # 0.4 (0.0-0.6) K/mcL Basophils # 0.0 (0.0-0.2) K/mcL PT 14.9 H (9.4-12.1) Seconds INR 1.3 VBG pH (7.32-7.42) pH Units VBG pCO2 (41-51) mmHg VBG pO2 (25-50) mmHg VBG HCO3 (21-27) mEq/L Sodium 137 (136-145) mEq/L Potassium 3.3 L (3.5-5.1) mEq/L Chloride 98 (98-107) mEq/L Carbon Dioxide 27 (23-29) mEq/L BUN 25 H (8-23) mg/dL Creatinine 1.95 H (0.60-1.20) mg/dL Est GFR ( Amer) 30 L (> 60) Est GFR (Non-Af Amer) 25 L (> 60) BUN/Creatinine Ratio 13 (6-26) Glucose 108 H (70-105) mg/dL Calculated Osmolality 289 (280-300) Lactic Acid (0.5-2.2) mmol/L Calcium 8.7 (8.6-10.3) mg/dL Troponin I 0.05 H* (< 0.04) ng/mL B-Natriuretic Peptide (Less than 100) pg/mL 01/18/19 01/18/19 01/18/19 Range/Units 14:06 14:06 14:17 WBC (4.3-11.1) K/mcL RBC (3.82-4.97) M/mcL Hgb (11.5-15.4) g/dL Hct (35.3-44.9) % MCV (83.0-100.0) fL MCH (28.0-33.3) pg MCHC (31.6-35.5) g/dL RDW (11.5-14.5) % Plt Count (140-400) K/mcL MPV (9.4-12.4) fL Immature Gran % (0-4) % Seg Neutrophils % % Lymphocytes % % Monocytes % % Eosinophils % % Basophils % % Neutrophils # (1.6-8.9) K/mcL Lymphocytes # (0.6-4.6) K/mcL Monocytes # (0.0-1.3) K/mcL Eosinophils # (0.0-0.6) K/mcL Basophils # (0.0-0.2) K/mcL PT (9.4-12.1) Seconds INR VBG pH 7.39 (7.32-7.42) pH Units VBG pCO2 48 (41-51) mmHg VBG pO2 46 (25-50) mmHg VBG HCO3 29 H (21-27) mEq/L Sodium (136-145) mEq/L Potassium (3.5-5.1) mEq/L Chloride (98-107) mEq/L Carbon Dioxide (23-29) mEq/L BUN (8-23) mg/dL Creatinine (0.60-1.20) mg/dL Est GFR ( Amer) (> 60) Est GFR (Non-Af Amer) (> 60) BUN/Creatinine Ratio (6-26) Glucose (70-105) mg/dL Calculated Osmolality (280-300) Lactic Acid 2.3 H (0.5-2.2) mmol/L Calcium (8.6-10.3) mg/dL Troponin I (< 0.04) ng/mL B-Natriuretic Peptide 263 H (Less than 100) pg/mL - Radiology Data Radiology results reviewed: Yes I reviewed the patient's radiology results. - EKG Data EKG attestation: Yes I reviewed and interpreted this EKG. EKG results narrative: EKG done at 1557 review myself and attending shows sinus tachycardia at a rate of 94, NE interval 172, QRS 94, QTc 451. Is no acute ST changes no acute T-wave changes no other signs of ischemia. No signs of hypertrophy, heart strain, heart block. No WPW/Brugada/HOCM. No changes based on old EKG done 12/03/18
--- NOTE | 2019-01-18 16:17 | Emergency Department Note ---
Disposition Clinical Impression: Ventilator associated pneumonia Disposition: Admitted As Inpatient Condition: Good Forms: ED Satisfaction Letter Time of Disposition: 16:17 General Adult HPI - General Chief complaint: ED Shortness of Breath/Dyspnea Stated complaint: LISHA Time Seen by Provider: 01/18/19 13:57 Source: EMS Mode of arrival: ambulatory Limitations: physical limitation - History of Present Illness Pain Scale: 0 - Related Data Home Medications Medication Instructions Recorded Confirmed Ipratropium/Albuterol Neb [Duoneb] 3 ml IH Q6HR PRN 08/22/16 01/18/19 Ascorbate Calcium [Vitamin C] 500 mg PO DAILY 01/31/17 01/18/19 Atorvastatin Calcium [Lipitor] 20 mg PO HS 01/31/17 01/18/19 Guaifenesin [Mucinex] 600 mg PO BID 01/31/17 01/18/19 Insulin LISPRO [HumaLOG] 0 - 10 units SQ TIDAC 01/31/17 01/18/19 LORazepam [Ativan] 0.5 mg PO TID PRN 01/31/17 01/18/19 Albuterol Sulfate [Proventil Hfa] 2 puff IH Q2H PRN 07/06/17 01/18/19 Darbepoetin [Aranesp] 80 mcg IV Q2W 07/06/17 01/18/19 Albuterol Neb [Proventil Neb] 2.5 mg IH Q6H PRN 07/19/17 01/18/19 Pantoprazole Sodium [Protonix] 40 mg PO BID 07/19/17 01/18/19 Renal Vitamin [Renal Caps Softgel] 1 mg PO DAILY 07/19/17 01/18/19 Budesonide/Formoterol 160/4.5 2 puff IH BIDR 03/07/18 01/18/19 [Symbicort 160/4.5] Calcitriol 0.5 mcg PO MOWEFR 03/07/18 01/18/19 Insulin Degludec [Tresiba 12 unit SQ DAILY 03/07/18 01/18/19 Flextouch U-100] Metoprolol [Lopressor] 12.5 mg PO BID MDD HOLD SYSTOLIC 03/07/18 01/18/19 <100 PULSE<60 Amiodarone [Cordarone] 200 mg PO DAILY 09/04/18 01/18/19 Buspirone HCl [Buspar] 15 mg PO BID 09/04/18 01/18/19 Lanthanum Carbonate [Fosrenol] 1,000 mg PO TIDWM 09/04/18 01/18/19 Venlafaxine [Effexor] 37.5 mg PO DAILY 09/04/18 01/18/19 Diclofenac Sodium [Voltaren] 1 appl TP QID 10/25/18 01/18/19 Sennosides [Senna] 8.6 mg PO DAILY PRN 10/25/18 01/18/19 Acetaminophen w/Cod 300-30 mg 1 tab PO Q6H PRN 10/26/18 01/18/19 [Tylenol w/Codeine #3] Apixaban [Eliquis] 2.5 mg PO BID 12/03/18 01/18/19 Ascorbate Calcium [Vitamin C] 500 mg PO 01/18/19 Calcitriol 0.5 mcg PO 01/18/19 Allergies Allergy/AdvReac Type Severity Reaction Status Date / Time aspirin [ASA] Allergy Swelling Verified 10/26/18 13:34 of Lip/Tongue/Throat NSAIDS (Non-Steroidal Allergy Swelling Verified 10/26/18 13:34 Anti-Inflamma of Lip/Tongue/Throat Penicillins Allergy Swelling Verified 10/26/18 13:34 of Lip/Tongue/Throat azithromycin AdvReac Fever Verified 10/26/18 13:34 iron AdvReac Unknown Verified 10/26/18 13:34 Past Medical History - Past Medical History Medical history: Reports: atrial fibrillation, cancer, CHF, COPD, CVA, diabetes, dialysis, hyperlipidemia, hypertension, myocardial infarction, renal disease Surgical history: Reports: appendectomy, breast surgery, cholecystectomy, colectomy, hysterectomy, other Psychiatric history: Reports: anxiety, depression HANDBOOK WRITER history: Reports: no HANDBOOK WRITER history - Social History Smoking Status: Former smoker Smokeless Tobacco Status: No Alcohol use: Reports: none Drug use: Reports: none Physical Exam - General Limitations: physical limitation General appearance: alert, in no apparent distress Course Vital Signs Temperature 98.7 F 01/18/19 13:56 Pulse Rate 94 01/18/19 13:56 Respiratory Rate 20 01/18/19 13:56 Blood Pressure 119/68 01/18/19 13:56 O2 Sat by Pulse Oximetry 88 01/18/19 13:56 Temperature 98.7 F 01/18/19 13:56 Pulse Rate 75 01/18/19 15:35 Respiratory Rate 20 01/18/19 15:35 Blood Pressure 116/102 01/18/19 15:35 O2 Sat by Pulse Oximetry 96 01/18/19 15:35 Oxygen Delivery Oxygen Delivery Trach Mask Medical Decision Making - Lab Data Result diagrams: 01/18/19 14:06 01/18/19 14:06 Lab Results 01/18/19 01/18/19 01/18/19 Range/Units 14:06 14:06 14:06 WBC 17.3 H (4.3-11.1) K/mcL RBC 4.31 (3.82-4.97) M/mcL Hgb 11.9 (11.5-15.4) g/dL Hct 40.9 (35.3-44.9) % MCV 94.9 (83.0-100.0) fL MCH 27.6 L (28.0-33.3) pg MCHC 29.1 L (31.6-35.5) g/dL RDW 20.4 H (11.5-14.5) % Plt Count 251 (140-400) K/mcL MPV 10.0 (9.4-12.4) fL Immature Gran % 1.1 (0-4) % Seg Neutrophils % 88.4 % Lymphocytes % 3.8 % Monocytes % 4.3 % Eosinophils % 2.3 % Basophils % 0.1 % Neutrophils # 15.3 H (1.6-8.9) K/mcL Lymphocytes # 0.7 (0.6-4.6) K/mcL Monocytes # 0.8 (0.0-1.3) K/mcL Eosinophils # 0.4 (0.0-0.6) K/mcL Basophils # 0.0 (0.0-0.2) K/mcL PT 14.9 H (9.4-12.1) Seconds INR 1.3 VBG pH (7.32-7.42) pH Units VBG pCO2 (41-51) mmHg VBG pO2 (25-50) mmHg VBG HCO3 (21-27) mEq/L Sodium 137 (136-145) mEq/L Potassium 3.3 L (3.5-5.1) mEq/L Chloride 98 (98-107) mEq/L Carbon Dioxide 27 (23-29) mEq/L BUN 25 H (8-23) mg/dL Creatinine 1.95 H (0.60-1.20) mg/dL Est GFR ( Amer) 30 L (> 60) Est GFR (Non-Af Amer) 25 L (> 60) BUN/Creatinine Ratio 13 (6-26) Glucose 108 H (70-105) mg/dL Calculated Osmolality 289 (280-300) Lactic Acid (0.5-2.2) mmol/L Calcium 8.7 (8.6-10.3) mg/dL Troponin I 0.05 H* (< 0.04) ng/mL B-Natriuretic Peptide (Less than 100) pg/mL 01/18/19 01/18/19 01/18/19 Range/Units 14:06 14:06 14:17 WBC (4.3-11.1) K/mcL RBC (3.82-4.97) M/mcL Hgb (11.5-15.4) g/dL Hct (35.3-44.9) % MCV (83.0-100.0) fL MCH (28.0-33.3) pg MCHC (31.6-35.5) g/dL RDW (11.5-14.5) % Plt Count (140-400) K/mcL MPV (9.4-12.4) fL Immature Gran % (0-4) % Seg Neutrophils % % Lymphocytes % % Monocytes % % Eosinophils % % Basophils % % Neutrophils # (1.6-8.9) K/mcL Lymphocytes # (0.6-4.6) K/mcL Monocytes # (0.0-1.3) K/mcL Eosinophils # (0.0-0.6) K/mcL Basophils # (0.0-0.2) K/mcL PT (9.4-12.1) Seconds INR VBG pH 7.39 (7.32-7.42) pH Units VBG pCO2 48 (41-51) mmHg VBG pO2 46 (25-50) mmHg VBG HCO3 29 H (21-27) mEq/L Sodium (136-145) mEq/L Potassium (3.5-5.1) mEq/L Chloride (98-107) mEq/L Carbon Dioxide (23-29) mEq/L BUN (8-23) mg/dL Creatinine (0.60-1.20) mg/dL Est GFR ( Amer) (> 60) Est GFR (Non-Af Amer) (> 60) BUN/Creatinine Ratio (6-26) Glucose (70-105) mg/dL Calculated Osmolality (280-300) Lactic Acid 2.3 H (0.5-2.2) mmol/L Calcium (8.6-10.3) mg/dL Troponin I (< 0.04) ng/mL B-Natriuretic Peptide 263 H (Less than 100) pg/mL Attestation Statement - Attestation Attestation: I reviewed the residents documentation and agree with the residents assessment and plan of care. I have personally had face to face time with the patient. (Brief History, Brief Exam, and MDM) I personally supervised and was present for the boudreaux/critical portions of the following procedures completed by the resid ent: EKG 78 year old female presents to the eD with complaints of trach dependent thicken sputum that is otherwise turning colors and concerning for pnuemonia and was hypoxic upon arrival. Loki appaers to have ventilator associate pneumonia nd was most recenty on chornic meropenem therapy as outpatient. I have discussed case with pharmacy and have given her a tailored therapy for VAP. Admit to medicine.
[2019-01-18] MEDS ORDERED: Morphine Sulfate 2 MG/ML SYRINGE IVP ONE (16:59)
[2019-01-18] MEDS ORDERED: Naloxone 0.4 MG/ML INJ IVP PRN (17:33)
[2019-01-18] MEDS ORDERED: Ondansetron 4 MG/2 ML VIAL IVP PRN (17:33)
[2019-01-18] MEDS ORDERED: Dextrose Gel 15 GM/37.5 ML TUBE PO PRN ×2 (17:51)
[2019-01-18] MEDS ORDERED: D5% in Water 1,000 ML IVC PRN (17:51)
[2019-01-18] MEDS ORDERED: *HR* Dextrose 50 % in Water (Syg) 50 ML SYRINGE IVP PRN (17:51)
[2019-01-18] MEDS ORDERED: Vancomycin (wt based) 1,000 MG VIAL IVPB SCH (18:00)
--- NOTE | 2019-01-18 18:19 | Internal Med History&Physical ---
Date of Encounter: 01/18/19 Time of Encounter: 17:15 Internal Medicine - H&P: HPI Chief complaint: SOB Admitted From: Home Plans for Post Hospital Care: Home History of present illness: Ms. Parks is a 78 year old female with PMH of A-fib, cancer, CHF, COPD, CVA, DM, ESRD requiring dialysis, HLD, HTN, GA presented to the ED from home with complaint of SOB and hypoxia. Patient has a chronic trach for which she requires nightly vent support and daily 4L NC. Patient was present with daughters that provided much of history. Per daughters, patient has been having low O2 sats for the past 1-2 weeks anywhere from 80-85%. Today, patient was at dialysis and started getting more SOB and was unable to complete. Daughters note that patient appears more "puffy" than usual. Additionally, patient has recently been treated for pneumonia and bacteremia at [facility]. Per daughter, patient was treated inpatient with meropenam and on discharge, additional 14 doses of meropenam were prescribed by their radiator mechanic. Patient is also reportedly on prophylactic vancomycin with dialysis on ,,. Patient had her trach replaced on 01/01/2019. In ED, patient's O2 sat stabilized on 6L NC. WBC was 17.3. Potassium was 3.3. Cr was 1.95 but baseline was worse. Troponin was 0.05. Patient was afebrile with stable vital signs. VBG was unremarkable. Patient reported that she was feeling better by the time I examined her. Past Med Surg Social Fam HX - Past Medical History Medical history: atrial fibrillation, cancer, CHF, COPD, CVA, diabetes, dialysis, hyperlipidemia, hypertension, myocardial infarction, renal disease Additional medical history: right breast Psychiatric history: anxiety, depression - Past Surgical History Surgical History: appendectomy, breast surgery, cholecystectomy, colectomy, hysterectomy, other Additional surgical history: trach. peg tube removed - Social History Smoking Status: Former smoker Smokeless Tobacco Status: No Alcohol use: none Drug use: none - Family History Mother Family Member Ethnicity: Non- Living Status: Hx Family Cardiac Disorders: No Hx Family Respiratory Disorders: No Hx Family Cancer: Yes (colon) Hx Family GI Disorders: No Hx Family Endocrine Disorder: No Hx Family Neuromuscular Disorders: No Hx Family Neurologic Disorders: No Hx Family HEENT Disorders: No Hx Family Autoimmune Disorders: No Father Living Status: Hx Family Cardiac Disorders: No Hx Family Respiratory Disorders: No Hx Family Cancer: Yes Hx Family GI Disorders: Yes Hx Family Endocrine Disorder: Yes (diabetic) Hx Family Neuromuscular Disorders: No Hx Family Neurologic Disorders: No Hx Family HEENT Disorders: No Hx Family Autoimmune Disorders: No Internal Medicine - H&P: Meds Ipratropium/Albuterol Neb [Duoneb] 3 ml IH Q6HR PRN 08/22/16 [History] Ascorbate Calcium [Vitamin C] 500 mg PO DAILY 01/31/17 [History] Atorvastatin Calcium [Lipitor] 20 mg PO HS 01/31/17 [History] Guaifenesin [Mucinex] 600 mg PO BID 01/31/17 [History] Insulin LISPRO [HumaLOG] 0 - 10 units SQ TIDAC 01/31/17 [History] LORazepam [Ativan] 0.5 mg PO TID PRN 01/31/17 [History] Albuterol Sulfate [Proventil Hfa] 2 puff IH Q2H PRN 07/06/17 [History] Darbepoetin [Aranesp] 80 mcg IV Q2W 07/06/17 [History] Albuterol Neb [Proventil Neb] 2.5 mg IH Q6H PRN 07/19/17 [History] Pantoprazole Sodium [Protonix] 40 mg PO BID 07/19/17 [History] Renal Vitamin [Renal Caps Softgel] 1 mg PO 1500 07/19/17 [History] Budesonide/Formoterol 160/4.5 [Symbicort 160/4.5] 2 puff IH BIDR 03/07/18 [History] Calcitriol 0.5 mcg PO MOWEFR 03/07/18 [History] Insulin Degludec [Tresiba Flextouch U-100] 12 unit SQ DAILY 03/07/18 [History] Metoprolol [Lopressor] 12.5 mg PO BID MDD HOLD SYSTOLIC <100 PULSE<60 03/07/18 [History] Amiodarone [Cordarone] 200 mg PO DAILY 09/04/18 [History] Buspirone HCl [Buspar] 15 mg PO BID 09/04/18 [History] Lanthanum Carbonate [Fosrenol] 1,000 mg PO TIDWM 09/04/18 [History] Venlafaxine [Effexor] 37.5 mg PO DAILY 09/04/18 [History] Diclofenac Sodium [Voltaren] 1 appl TP QID 10/25/18 [History] Sennosides [Senna] 8.6 mg PO DAILY PRN 10/25/18 [History] Apixaban [Eliquis] 2.5 mg PO DAILY 12/03/18 [History] Acetaminophen [Tylenol] 650 mg PO 2-3XD 01/18/19 [History] Acetaminophen with Codeine [Acetaminophen-Cod #4 Tablet] 1 tab PO Q6H PRN 01/18/19 [History] HYDROcodone/Acet 5/325 mg [Stanley 5-325 mg] 1 tab PO BID PRN 01/18/19 [History] predniSONE [PredniSONE] 7 mg PO DAILY 01/18/19 [History] Allergy/AdvReac Type Severity Reaction Status Date / Time aspirin [ASA] Allergy Swelling Verified 10/26/18 13:34 of Lip/Tongue/Throat NSAIDS (Non-Steroidal Allergy Swelling Verified 10/26/18 13:34 Anti-Inflamma of Lip/Tongue/Throat Penicillins Allergy Swelling Verified 10/26/18 13:34 of Lip/Tongue/Throat azithromycin AdvReac Fever Verified 10/26/18 13:34 iron AdvReac Unknown Verified 10/26/18 13:34 All Systems PM: A 10-system review of systems was performed and is negative for pertinent findings except as documented above in the HPI. Review of systems: Constitutional: No weight loss, no fever, no chills ENT/Mouth: No hearing changes, no congestion, no dysphagia Eyes: No redness, no discharge, no vision changes Cardiovascular: No chest pain, no shortness of breath, no palpitations Respiratory: cough, dyspnea Genitourinary: No dysuria, no urinary frequency, no hematuria Musculoskeletal: No arthralgias, no joint swelling Skin: No suspicious lesions Neuro: No weakness, no numbness, no loss of consciousness Psych: No anxiety, no depression, no changes in sleep - Constitutional Vitals: Temp Pulse Resp BP Pulse Ox 98.7 F 90 20 129/80 94 01/18/19 13:56 01/18/19 17:48 01/18/19 17:48 01/18/19 17:48 01/18/19 17:48 General appearance: Present: A&O X 3, no acute distress, answers questions appropriately Exam: GENERAL APPEARANCE: Well developed, well nourished, alert and cooperative, and appears to be in no acute distress. HEENT: Normocephalic/atraumatic, PERRLA. NECK: Supple, nontender without lymphadenopathy. CARDIOVASCULAR: Normal S1, S2; regular rate and rhythm; no murmurs. RESPIRATORY: Coarse breath sounds; unable to auscultate wheezing or crackles; trach in place ABDOMEN: Soft, nondistended, nontender; bowel sounds present. MUSKULOSKELETAL: No limitations in range of motion. EXTREMITIES: 1+ pitting edema b/l NEUROLOGICAL: No focal neurological deficits. SKIN: Skin normal color, texture and turgor with no lesions or eruptions. PSYCHIATRIC: Judgment and reasoning; no hallucinations; normal affect. Internal Med - H&P Results - Labs CBC & Chem 7: 01/18/19 14:06 01/18/19 14:06 Labs: Short CBC 01/18/19 Range/Units 14:06 WBC 17.3 H (4.3-11.1) K/mcL Hgb 11.9 (11.5-15.4) g/dL Hct 40.9 (35.3-44.9) % Plt Count 251 (140-400) K/mcL Neutrophils # 15.3 H (1.6-8.9) K/mcL BMP 01/18/19 14:06 Sodium 137 Potassium 3.3 L Chloride 98 Carbon Dioxide 27 BUN 25 H Creatinine 1.95 H Glucose 108 H Calcium 8.7 Cardiac Enzymes 01/18/19 Range/Units 14:06 Troponin I 0.05 H* (< 0.04) ng/mL - ABG Interpretation ABG results: 01/18/19 14:17 VBG pH 7.39 VBG pCO2 48 VBG pO2 46 VBG HCO3 29 H - Impressions ITS Impressions Chest X-Ray 01/18/19 14:00 IMPRESSION: Right upper and left lower lobe consolidative infiltrates with small pleural effusions. D/ / 01/18/2019 14:37:16 Jd Davis MD / [email or web address] Interpreting Provider: Jd Davis MD - Assessment and Plan (1) Sepsis Current Visit: Yes Status: Acute Assessment and plan: Patient presenting with acute respiratory failure and meeting criteria for sepsis with tachycardia, hypoxia, leukocytosis. Patient recently treated for PNA and bacteremia for pseudomonas with meropenam Blood pressure stable Patient was unable to complete dialysis today Plan: Start patient on vanc, clindamycin, and cefepime; renally dose per pharmacy Hold off on fluids as patient's BP is stable and by the time I saw her, she was more stable; Additionally, patient has history of CHF and ESRD and is high risk for volume overload as she did not finish her dialysis today Consult pulmonology for assistance Conside ID pending blood cultures F/u blood cultures F/u urinalysis Qualifiers: Sepsis type: sepsis due to unspecified organism Sepsis acute organ dysfunction status: with acute organ dysfunction Severe sepsis acute organ dysfunction type: acute respiratory failure Acute respiratory failure type: with hypoxia Severe sepsis shock status: without septic shock Qualified Code(s): A41.9 - Sepsis, unspecified organism; R65.20 - Severe sepsis without septic shock; J96.01 - Acute respiratory failure with hypoxia (2) Ventilator associated pneumonia Current Visit: Yes Status: Acute Assessment and plan: see above (3) Acute and chronic respiratory failure ([id number]) Current Visit: No Status: Acute Assessment and plan: Patient with chronic trach requiring ventilation at night and 4L NC during day Worsening hypoxia requriing 6L NC to maintain 92% sat Plan: see above PRN breathing treatments continuous pulse oximtery Consult RT Consult pulmonology for recommendations Consider palliative care consult as patient has had multiple admissions Qualifiers: Respiratory failure complication: hypoxia Qualified Code(s): J96.21 - Acute and chronic respiratory failure with hypoxia (4) Tracheostomy dependent Current Visit: No Status: Acute (5) Afib Current Visit: No Status: Chronic Assessment and plan: Plan: telemetry; continue eliquis and home meds Qualifiers: Atrial fibrillation type: chronic Qualified Code(s): I48.2 - Chronic atrial fibrillation (6) CHF (congestive heart failure) Current Visit: No Status: Chronic Assessment and plan: Patient with history of systolic CHF No current signs of overload; BNP at baseline; no significant edema Plan: monitor volume status; continue home meds Qualifiers: Heart failure type: diastolic Heart failure chronicity: unspecified Qualified Code(s): I50.30 - Unspecified diastolic (congestive) heart failure (7) CKD (chronic kidney disease) stage V requiring chronic dialysis Current Visit: No Status: Chronic Assessment and plan: Patient with ESRD on dialysis M,W,F Did not complete dialysis day of admission Plan: Nephro consulted; monitor renal function (8) COPD (chronic obstructive pulmonary disease) Current Visit: No Status: Chronic Assessment and plan: Patient with history of COPD on chronic O2 via trach Plan: continue PRN breathing treatments Pulmonology on board Qualifiers: COPD type: unspecified COPD Qualified Code(s): J44.9 - Chronic obstructive pulmonary disease, unspecified (9) Hypokalemia Current Visit: Yes Status: Acute Assessment and plan: K 3.3 on admission -replace and monitor (10) Diabetes mellitus Current Visit: No Status: Chronic Assessment and plan: Blood sugars stable on admission -sliding scale insulin Qualifiers: Diabetes mellitus type: type 2 Diabetes mellitus [facility] insulin use: with long wall shear operator use Diabetes mellitus complication status: with kidney complications Diabetes mellitus complication detail: with chronic kidney disease Chronic kidney disease stage: on chronic dialysis Qualified Code(s): E11.22 - Type 2 diabetes mellitus with diabetic chronic kidney disease; N18.6 - End stage renal disease; Z79.4 - half-way (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 - Time Spent With Patient Total time spent is greater than 50% in coordination of care (as documented) at patient's floor/unit and/or counseling patient:
[2019-01-18] MEDS: Insulin LISPRO 300 UNITS/3 ML VIAL SQ SCH ×2 (19:08→23:37)
[2019-01-18] MEDS ORDERED: 0.9 % Sodium Chloride 250 ML ONE (20:37)
[2019-01-18] MEDS: Budesonide/Formoterol 160/4.5 1 PUFF INH IH SCH (21:05)
[2019-01-18] MEDS: Levalbuterol Neb 1.25 MG/3 ML IH SCH ×2 (21:05→21:08)
[2019-01-18] MEDS ORDERED: *HR* LORazepam 2 MG/ML VIAL IVP ONE (23:01)
[2019-01-18] MEDS: Clindamycin 600 MG/50 ML 600 MG/50 ML IV.SOLN IVPB SCH (23:31)
[2019-01-19 00:59] LABS: Hematocrit 38.7 % (35.3-44.9); Hemoglobin 11.3 g/dL (11.5-15.4); Mean Corpuscular HGB Conc 29.2 g/dL (31.6-35.5); Mean Corpuscular Hemoglobin 27.4 pg (28.0-33.3); Mean Corpuscular Volume 93.9 fL (83.0-100.0); Mean Platelet Volume 10.1 fL (9.4-12.4); Platelet Count 230 K/mcL (140-400); Red Blood Count 4.12 M/mcL (3.82-4.97); Red Cell Distribution Width 20.3 % (11.5-14.5); White Blood Count 13.6 K/mcL (4.3-11.1)
[2019-01-19 01:18] LABS: Calcium 8.1 mg/dL (8.6-10.3); Potassium 4.1 mEq/L (3.5-5.1)
[2019-01-19] MEDS: Levalbuterol Neb 1.25 MG/3 ML IH SCH ×4 (04:28→21:27)
[2019-01-19] MEDS: Insulin LISPRO 300 UNITS/3 ML VIAL SQ SCH ×4 (06:44→20:15)
[2019-01-19] MEDS: predniSONE 5 MG TABLET PO SCH (08:37)
[2019-01-19] MEDS: Ascorbic Acid 500 MG TABLET PO SCH (08:37)
[2019-01-19] MEDS: Apixaban 2.5 MG TABLET PO SCH (08:39)
[2019-01-19] MEDS: predniSONE 1 MG TABLET PO SCH (08:39)
[2019-01-19] MEDS: *HR* Amiodarone 200 MG TABLET PO SCH (08:40)
[2019-01-19] MEDS: Clindamycin 600 MG/50 ML 600 MG/50 ML IV.SOLN IVPB SCH ×3 (08:41→23:41)
[2019-01-19] MEDS: Budesonide/Formoterol 160/4.5 1 PUFF INH IH SCH ×2 (11:34→21:27)
--- NOTE | 2019-01-19 11:44 | Nephrology Consult Note ---
Date of Encounter: 01/19/19 Time of Encounter: 11:44 Assessment and Plan (1) ESRD (end stage renal disease) on dialysis Current Visit: No Status: Chronic HD MWF. Renal vitamins. Renal dose medications. Renal diet. Additional dialysis and ultrafiltration as needed. Plan for dialysis today. (2) Anemia Current Visit: No Status: Chronic Transfusion per the primary team. Qualifiers: Anemia type: unspecified type Qualified Code(s): D64.9 - Anemia, unspecified (3) Diabetes mellitus Current Visit: No Status: Chronic Qualifiers: Diabetes mellitus type: type 2 Diabetes mellitus prison insulin use: with prison use Diabetes mellitus complication status: with kidney complications Diabetes mellitus complication detail: with chronic kidney disease Chronic kidney disease stage: on chronic dialysis Qualified Code(s): E11.22 - Type 2 diabetes mellitus with diabetic chronic kidney disease; N18.6 - End stage renal disease; Z79.4 - intermediate project manager (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 (4) Hypertension Current Visit: No Status: Chronic Titrate blood pressure medications as needed. Qualifiers: Hypertension type: essential hypertension Qualified Code(s): I10 - Essential (primary) hypertension History of Present Illness - Reason for Consult Consult date: 01/19/19 end stage renal disease - Chief Complaint esrd mwf - History of Present Illness Ms. Parks is a 78 yo woman with a history of ESRD MWF who presents with dyspnea. The patient has a trach in place and is on the vent. Her family is in the room. The patient is having discomfort from the adjustment of an IV in her left arm. Family reports that the patient eats getting episodes where she gets short of breath despite dialysis. Complete review of systems is unobtainable secondary to her trach/vent. Past Med Surg Social Fam HX - Past Medical History Medical history: atrial fibrillation, cancer, CHF, COPD, CVA, diabetes, dialysis, hyperlipidemia, hypertension, myocardial infarction, renal disease Additional medical history: right breast Psychiatric history: anxiety, depression - Past Surgical History Surgical History: appendectomy, breast surgery, cholecystectomy, colectomy, hysterectomy, other Additional surgical history: trach. peg tube removed - Social History Smoking Status: Former smoker Smokeless Tobacco Status: No Alcohol use: none Drug use: none - Family History Mother Family Member Ethnicity: Non- Living Status: Hx Family Cardiac Disorders: No Hx Family Respiratory Disorders: No Hx Family Cancer: Yes (colon) Hx Family GI Disorders: No Hx Family Endocrine Disorder: No Hx Family Neuromuscular Disorders: No Hx Family Neurologic Disorders: No Hx Family HEENT Disorders: No Hx Family Autoimmune Disorders: No Father Living Status: Hx Family Cardiac Disorders: No Hx Family Respiratory Disorders: No Hx Family Cancer: Yes Hx Family GI Disorders: Yes Hx Family Endocrine Disorder: Yes (diabetic) Hx Family Neuromuscular Disorders: No Hx Family Neurologic Disorders: No Hx Family HEENT Disorders: No Hx Family Autoimmune Disorders: No Medications and Allergies Ipratropium/Albuterol Neb [Duoneb] 3 ml IH Q6HR PRN 08/22/16 [History] Ascorbate Calcium [Vitamin C] 500 mg PO DAILY 01/31/17 [History] Atorvastatin Calcium [Lipitor] 20 mg PO HS 01/31/17 [History] Guaifenesin [Mucinex] 600 mg PO BID 01/31/17 [History] Insulin LISPRO [HumaLOG] 0 - 10 units SQ TIDAC 01/31/17 [History] LORazepam [Ativan] 0.5 mg PO TID PRN 01/31/17 [History] Albuterol Sulfate [Proventil Hfa] 2 puff IH Q2H PRN 07/06/17 [History] Darbepoetin [Aranesp] 80 mcg IV Q2W 07/06/17 [History] Albuterol Neb [Proventil Neb] 2.5 mg IH Q6H PRN 07/19/17 [History] Pantoprazole Sodium [Protonix] 40 mg PO BID 07/19/17 [History] Renal Vitamin [Renal Caps Softgel] 1 mg PO 1500 07/19/17 [History] Budesonide/Formoterol 160/4.5 [Symbicort 160/4.5] 2 puff IH BIDR 03/07/18 [History] Calcitriol 0.5 mcg PO MOWEFR 03/07/18 [History] Insulin Degludec [Tresiba Flextouch U-100] 12 unit SQ DAILY 03/07/18 [History] Metoprolol [Lopressor] 12.5 mg PO BID MDD HOLD SYSTOLIC <100 PULSE<60 03/07/18 [History] Amiodarone [Cordarone] 200 mg PO DAILY 09/04/18 [History] Buspirone HCl [Buspar] 15 mg PO BID 09/04/18 [History] Lanthanum Carbonate [Fosrenol] 1,000 mg PO TIDWM 09/04/18 [History] Venlafaxine [Effexor] 37.5 mg PO DAILY 09/04/18 [History] Diclofenac Sodium [Voltaren] 1 appl TP QID 10/25/18 [History] Sennosides [Senna] 8.6 mg PO DAILY PRN 10/25/18 [History] Apixaban [Eliquis] 2.5 mg PO DAILY 12/03/18 [History] Acetaminophen [Tylenol] 650 mg PO 2-3XD 01/18/19 [History] Acetaminophen with Codeine [Acetaminophen-Cod #4 Tablet] 1 tab PO Q6H PRN 01/18/19 [History] HYDROcodone/Acet 5/325 mg [[place] 5-325 mg] 1 tab PO BID PRN 01/18/19 [History] predniSONE [PredniSONE] 7 mg PO DAILY 01/18/19 [History] Allergy/AdvReac Type Severity Reaction Status Date / Time aspirin [ASA] Allergy Swelling Verified 10/26/18 13:34 of Lip/Tongue/Throat NSAIDS (Non-Steroidal Allergy Swelling Verified 10/26/18 13:34 Anti-Inflamma of Lip/Tongue/Throat Penicillins Allergy Swelling Verified 10/26/18 13:34 of Lip/Tongue/Throat azithromycin AdvReac Fever Verified 10/26/18 13:34 iron AdvReac Unknown Verified 10/26/18 13:34 Review of Systems All Systems: reviewed and no additional remarkable complaints except as stated (as documented in the hpi -complete review of systems is unobtainable secondary to a trach/) Exam - Vital Signs Vital signs: Initial Vital Signs Temp Pulse Resp BP Pulse Ox 98.7 F 94 20 119/68 88 01/18/19 13:56 01/18/19 13:56 01/18/19 13:56 01/18/19 13:56 01/18/19 13:56 Vital Signs - Last 8 Hours Temp Pulse Resp BP Pulse Ox 01/19/19 11:35 17 90 01/19/19 11:17 99.5 F 82 18 111/75 90 01/19/19 09:12 19 90 01/19/19 07:00 98.7 F 76 19 91/53 90 01/19/19 04:28 15 96 Intake and Output 01/18/19 01/19/19 01/19/19 23:59 07:59 15:59 Intake Total 200 / 250 50 / 50 0 / 50 Balance 200 / 250 50 / 50 0 / 50 Intake: IV Fluids 200 / 250 50 / 50 Cleocin Premix 600 MG/50 ML 600 50 / 50 mg In 50 ml @ 50 mls/hr IVPB Q8HR KEILA Rx#:[id number] Potassium Chloride 10 mEq/100mL 200 / 200 10 meq In 100 ml @ 100 mls/hr IVPB Q1H KEILA Rx#:[id number] Oral 0 / 0 Other: Meal npo Percent of Meal Consumed 0% # Voids 0 # Bowel Movements 0 Blood Glucose* 115 99 81 - General Appearance General appearance: well-developed, well-nourished, chronically ill, frail EENT: ATNC Neck: supple Cardiology: edema, regular rate Gastrointestinal: no tenderness Integumentary: warm and dry Additional Comments: She is alert Musculoskeletal: no cyanosis Psychiatric: agitated Results - Lab Results 01/19/19 00:12 01/19/19 00:12 Most recent lab results 01/19/19 00:12 Calcium 8.1 L Consult Discharge Plan - Plan Referrals: Therese Garcia, OTOLARYNGOLOGY SURGEON [Primary Care Provider] -
[2019-01-19] MEDS ORDERED: *HR* Heparin 10,000 UNIT/10 ML VIAL IV PRN (12:43)
[2019-01-19] MEDS ORDERED: 0.9 % Sodium Chloride 250 ML IVC PRN (12:43)
[2019-01-19] MEDS ORDERED: 0.9 % Sodium Chloride 1,000 ML PRIME SCH (12:45)
--- NOTE | 2019-01-19 12:46 | Pulmonology Consult Note ---
Date of Encounter: 01/19/19 Time of Encounter: 11:30 Assessment and Plan (1) Acute and chronic respiratory failure Current Visit: Yes Status: Acute Patient has acute on chronic hypoxic hypercapnic respiratory failure is worsening hypoxia looks like more of fluid overload interstitial hydrostatic pulmonary edema causing this issue Will reassess after the dialysis session after fluid removal. After that she will need a repeat CT scan to make sure as the worsening parenchymal consolidation consistent with pneumonia I favor the former that her pulmonary edema is causing this V/Q mismatch. If the repeat CT chest showed a evidence of worsening infiltrates and might consider bronchoscopy with BAL. Adjusted the ventilator settings changed to AC mode. Patient is needing quite a bit of ventilatory support with high PEEP and FiO2. Otherwise maintaining her fluid overload with intermittent hemodialysis and ultrafiltration will be the ideal way to approach his problem pulmonary will continue to follow. Thank you for the consultation. Qualifiers: Respiratory failure complication: hypoxia and hypercapnia Qualified Code(s): J96.21 - Acute and chronic respiratory failure with hypoxia; J96.22 - Acute and chronic respiratory failure with hypercapnia (2) COPD (chronic obstructive pulmonary disease) Current Visit: Yes Status: Acute To continue with bronchodilators no evidence of acute COPD exacerbation more looks like a pulmonary edema rather than pneumonia Qualifiers: Emphysema type: centrilobular Qualified Code(s): J43.2 - Centrilobular emphysema (3) Pulmonary edema Current Visit: Yes Status: Acute Most likely due to fluid overload patient will need dialysis as patient has end-stage renal disease Qualifiers: Chronicity: acute Qualified Code(s): J81.0 - Acute pulmonary edema History of Present Illness Consult date: 01/19/19 Requesting physician: Alaina Ornelas Chief complaint: Shortness of breath History of present illness: 78-year-old female with past medical history significant for hypertension, hyp erlipidemia, CHF, COPD chronic Respiratory failure with tracheostomy dependent, end-stage renal disease Monday and dialysis, atrial fibrillation had a recent episode of pneumonia for which she is completing treatment will get the records from [facility] regarding the care patient with worsening hypoxic respiratory failure patient is having nighttime ventilation daytime trach collar started to have hypoxic respiratory failure which is worsened from the baseline during the daytime patient family brought her to the ER yesterday was admitted for acute on chronic hypoxic respiratory failure pulmonary was consult that for evaluation of this worsening acute on chronic hypoxic respiratory failure with that is pneumonia versus pulmonary edema. According to patient's daughter her secretions were light posada most likely her baseline secretion no greenish or yellowsh color no hemoptysis. Past Med Surg Social Fam HX - Past Medical History Medical history: atrial fibrillation, cancer, CHF, COPD, CVA, diabetes, dialysis, hyperlipidemia, hypertension, myocardial infarction, renal disease Additional medical history: right breast Psychiatric history: anxiety, depression - Past Surgical History Surgical History: appendectomy, breast surgery, cholecystectomy, colectomy, hysterectomy, other Additional surgical history: trach. peg tube removed - Social History Smoking Status: Former smoker Smokeless Tobacco Status: No Alcohol use: none Drug use: none - Family History Mother Family Member Ethnicity: Non- Living Status: Hx Family Cardiac Disorders: No Hx Family Respiratory Disorders: No Hx Family Cancer: Yes (colon) Hx Family GI Disorders: No Hx Family Endocrine Disorder: No Hx Family Neuromuscular Disorders: No Hx Family Neurologic Disorders: No Hx Family HEENT Disorders: No Hx Family Autoimmune Disorders: No Father Living Status: Hx Family Cardiac Disorders: No Hx Family Respiratory Disorders: No Hx Family Cancer: Yes Hx Family GI Disorders: Yes Hx Family Endocrine Disorder: Yes (diabetic) Hx Family Neuromuscular Disorders: No Hx Family Neurologic Disorders: No Hx Family HEENT Disorders: No Hx Family Autoimmune Disorders: No Medications and Allergies Ipratropium/Albuterol Neb [Duoneb] 3 ml IH Q6HR PRN 08/22/16 [History] Ascorbate Calcium [Vitamin C] 500 mg PO DAILY 01/31/17 [History] Atorvastatin Calcium [Lipitor] 20 mg PO HS 01/31/17 [History] Guaifenesin [Mucinex] 600 mg PO BID 01/31/17 [History] Insulin LISPRO [HumaLOG] 0 - 10 units SQ TIDAC 01/31/17 [History] LORazepam [Ativan] 0.5 mg PO TID PRN 01/31/17 [History] Albuterol Sulfate [Proventil Hfa] 2 puff IH Q2H PRN 07/06/17 [History] Darbepoetin [Aranesp] 80 mcg IV Q2W 07/06/17 [History] Albuterol Neb [Proventil Neb] 2.5 mg IH Q6H PRN 07/19/17 [History] Pantoprazole Sodium [Protonix] 40 mg PO BID 07/19/17 [History] Renal Vitamin [Renal Caps Softgel] 1 mg PO 1500 07/19/17 [History] Budesonide/Formoterol 160/4.5 [Symbicort 160/4.5] 2 puff IH BIDR 03/07/18 [History] Calcitriol 0.5 mcg PO MOWEFR 03/07/18 [History] Insulin Degludec [Tresiba Flextouch U-100] 12 unit SQ DAILY 03/07/18 [History] Metoprolol [Lopressor] 12.5 mg PO BID MDD HOLD SYSTOLIC <100 PULSE<60 03/07/18 [History] Amiodarone [Cordarone] 200 mg PO DAILY 09/04/18 [History] Buspirone HCl [Buspar] 15 mg PO BID 09/04/18 [History] Lanthanum Carbonate [Fosrenol] 1,000 mg PO TIDWM 09/04/18 [History] Venlafaxine [Effexor] 37.5 mg PO DAILY 09/04/18 [History] Diclofenac Sodium [Voltaren] 1 appl TP QID 10/25/18 [History] Sennosides [Senna] 8.6 mg PO DAILY PRN 10/25/18 [History] Apixaban [Eliquis] 2.5 mg PO DAILY 12/03/18 [History] Acetaminophen [Tylenol] 650 mg PO 2-3XD 01/18/19 [History] Acetaminophen with Codeine [Acetaminophen-Cod #4 Tablet] 1 tab PO Q6H PRN 01/18/19 [History] HYDROcodone/Acet 5/325 mg [[place] 5-325 mg] 1 tab PO BID PRN 01/18/19 [History] predniSONE [PredniSONE] 7 mg PO DAILY 01/18/19 [History] Allergy/AdvReac Type Severity Reaction Status Date / Time aspirin [ASA] Allergy Swelling Verified 10/26/18 13:34 of Lip/Tongue/Throat NSAIDS (Non-Steroidal Allergy Swelling Verified 10/26/18 13:34 Anti-Inflamma of Lip/Tongue/Throat Penicillins Allergy Swelling Verified 10/26/18 13:34 of Lip/Tongue/Throat azithromycin AdvReac Fever Verified 10/26/18 13:34 iron AdvReac Unknown Verified 10/26/18 13:34 ROS unobtainable: other (Due to tracheostomy patient daughter gave some review of systems.) All Systems: The remainder of the systems were reviewed and are negative Physical Examination Vital Signs: Vital Signs, Last 4 Hours Temp Pulse Resp BP Pulse Ox 01/19/19 11:35 17 90 01/19/19 11:17 99.5 F 82 18 111/75 90 01/19/19 09:12 19 90 General appearance: no acute distress Eyes: nonicteric Effort: mildly labored Auscultation: bilateral: rales (Extensive rales) Cardiovascular: irregular rhythm Gastrointestinal: hypoactive bowel sounds Extremities: edema normal mental status, non-focal exam Ventilator Settings Ventilator Settings: Ventilator Settings, Last 8 Hours Ventilator Tidal Volume 550 Setting Ventilator Tidal Volume 550 Setting Ventilator Tidal Volume 550 Setting Ventilator Respiratory Rate 12 Setting Ventilator Respiratory Rate 12 Setting Ventilator Respiratory Rate 12 Setting Actual Respiratory Rate 15 Actual Respiratory Rate 15 Actual Respiratory Rate 15 Positive End Expiratory 6 Pressure Positive End Expiratory 6 Pressure Positive End Expiratory 6 Pressure Peak Inspiratory Airway 28 Pressure Peak Inspiratory Airway 28 Pressure Peak Inspiratory Airway 28 Pressure Results - Laboratory Findings CBC and BMP: 01/19/19 00:12 01/19/19 00:12 PT/INR, D-dimer PT 14.9 Seconds (9.4-12.1) H 01/18/19 14:06 Abnormal lab findings: Abnormal lab results WBC 13.6 K/mcL (4.3-11.1) H 01/19/19 00:12 Hgb 11.3 g/dL (11.5-15.4) L 01/19/19 00:12 MCH 27.4 pg (28.0-33.3) L 01/19/19 00:12 MCHC 29.2 g/dL (31.6-35.5) L 01/19/19 00:12 RDW 20.3 % (11.5-14.5) H 01/19/19 00:12 Neutrophils # 15.3 K/mcL (1.6-8.9) H 01/18/19 14:06 PT 14.9 Seconds (9.4-12.1) H 01/18/19 14:06 VBG HCO3 29 mEq/L (21-27) H 01/18/19 14:17 Sodium 134 mEq/L (136-145) L 01/19/19 00:12 Potassium 3.3 mEq/L (3.5-5.1) L 01/18/19 14:06 BUN 32 mg/dL (8-23) H 01/19/19 00:12 Creatinine 2.35 mg/dL (0.60-1.20) H 01/19/19 00:12 Est GFR ( Amer) 24 (> 60) L 01/19/19 00:12 Est GFR (Non-Af Amer) 20 (> 60) L 01/19/19 00:12 Glucose 134 mg/dL (70-105) H 01/19/19 00:12 POC Glucose 115 mg/dL (70-99) H 01/18/19 23:36 Lactic Acid 2.3 mmol/L (0.5-2.2) H 01/18/19 14:06 Calcium 8.1 mg/dL (8.6-10.3) L 01/19/19 00:12 Troponin I 0.05 ng/mL (< 0.04) H* 01/19/19 04:14 B-Natriuretic Peptide 263 pg/mL (Less than 100) H 01/18/19 14:06 - Microbiology Findings Microbiology Findings: Microbiology, Last 48 Hours 01/18/19 14:06 Blood Culture - Preliminary Peripheral Venipuncture Culture is incubating and being continuously monit ored for growth. Final report to follow. 01/18/19 14:06 Blood Culture - Preliminary Peripheral Venipuncture Culture is incubating and being continuously monitored for growth. Final report to follow. - Clinical Findings Intake & Output: Intake & Output 01/18/19 01/19/19 01/19/19 23:59 07:59 15:59 Intake Total 200 / 250 50 / 50 0 / 50 Balance 200 / 250 50 / 50 0 / 50 Consult Discharge Plan - Plan Referrals: Therese Garcia CNP [Primary Care Provider] - Critical Care Time Critical Care Time: Yes Total Critical Care Time: 40 Attestation: I saw and evaluated this patient and my medical decision-making was reviewed with the Resident Physician. I agree with the documented findings, disposition and treatment plan as described except to the extent set forth below. We independently had [id number] contact with the patient I spent 40 minutes of Critical Care time with this patient. It involved decision making of high complexity to assess, manipulate, and support vital organ system failure and/or to prevent further life threatening deterioration of the patient's condition. The time involved in the performance of separately reportable procedures was not counted toward critical care time.
--- NOTE | 2019-01-19 13:05 | Internal Med Progress Note ---
Hospitalist Progress Note - Encounter Date of Encounter: 01/19/19 Time of Encounter: 13:02 - Subjective Interval History: Patient seen and examined. Patient's daughter present at bedside. Patient reports no acute complaints. Per daughter, patient's O2 sat this morning was staying in the low 90s on the ventilator so it was continued. However, daughter does feel that patient looks much better overall. - Exam Vitals: Temp Pulse Resp BP Pulse Ox 99.5 F 82 17 111/75 90 01/19/19 11:17 01/19/19 11:17 01/19/19 11:35 01/19/19 11:17 01/19/19 11:35 Exam: GENERAL APPEARANCE: Well developed, well nourished, alert and cooperative, and appears to be in no acute distress. HEENT: Normocephalic/atraumatic, PERRLA. NECK: Supple, nontender without lymphadenopathy. CARDIOVASCULAR: Normal S1, S2; regular rate and rhythm; no murmurs. RESPIRATORY: Coarse breath sounds; unable to auscultate wheezing or crackles; trach in place ABDOMEN: Soft, nondistended, nontender; bowel sounds present. MUSKULOSKELETAL: No limitations in range of motion. EXTREMITIES: 1+ pitting edema b/l NEUROLOGICAL: No focal neurological deficits. SKIN: Skin normal color, texture and turgor with no lesions or eruptions. PSYCHIATRIC: Judgment and reasoning; no hallucinations; normal affect. - Assessment and Plan (1) Sepsis Current Visit: Yes Status: Acute Assessment and Plan: Patient presenting with acute respiratory failure and meeting criteria for sepsis with tachycardia, hypoxia, leukocytosis. Patient recently treated for PNA and bacteremia for pseudomonas with meropenam Blood pressure stable Patient was unable to complete dialysis day before admission Repeat Lactic acid normal Leukocytosis improving Plan: Continue vanc, clindamycin, and cefepime; renally dose per pharmacy Pulmonology on board Consider ID pending blood cultures F/u blood cultures F/u urinalysis (2) Ventilator associated pneumonia Current Visit: Yes Status: Acute Assessment and Plan: Patient recently treated for pseudomonoas pneumonia and bacteremia and [facility] with meropenam per family; patient is on prophylactic vancomycin with dialyss Plan: see above (3) Acute and chronic respiratory failure ([id number]) Current Visit: No Status: Acute Assessment and Plan: Patient with chronic trach requiring ventilation at night and 4L NC during day Worsening hypoxia requriing 6L NC to maintain 92% sat Plan: see above PRN breathing treatments continuous pulse oximtery Consult RT Pulmonology on board Consider palliative care consult as patient has had multiple admissions (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 (5) Afib Current Visit: No Status: Chronic Assessment and Plan: Plan: telemetry; continue eliquis and home meds (6) CHF (congestive heart failure) Current Visit: No Status: Chronic Assessment and Plan: Patient with history of systolic CHF No current signs of overload; BNP at baseline; no significant edema Plan: monitor volume status; continue home meds (7) CKD (chronic kidney disease) stage V requiring chronic dialysis Current Visit: No Status: Chronic Assessment and Plan: Patient with ESRD on dialysis M,W,F Did not complete dialysis day of admission Plan: Nephro consulted; monitor renal function (8) COPD (chronic obstructive pulmonary disease) Current Visit: No Status: Chronic Assessment and Plan: Patient with history of COPD on chronic O2 via trach Plan: continue PRN breathing treatments Pulmonology on board (9) Hypokalemia Current Visit: Yes Status: Resolved Assessment and Plan: K 3.3 on admission -replace and monitor (10) Diabetes mellitus Current Visit: No Status: Chronic Assessment and Plan: Blood sugars stable on admission -sliding scale insulin - Time Spent with Patient Total time spent is greater than 50% in coordination of care (as documented) at patient's floor/unit and/or counseling patient: 40 minutes Plan of Care Discussed with: family Internal Medicine: Result - Labs CBC & Chem 7: 01/19/19 00:12 01/19/19 00:12 Labs: Short CBC 01/18/19 01/19/19 Range/Units 14:06 00:12 WBC 17.3 H 13.6 H (4.3-11.1) K/mcL Hgb 11.9 11.3 L (11.5-15.4) g/dL Hct 40.9 38.7 (35.3-44.9) % Plt Count 251 230 (140-400) K/mcL Neutrophils # 15.3 H (1.6-8.9) K/mcL BMP 01/18/19 01/19/19 14:06 00:12 Sodium 137 134 L Potassium 3.3 L 4.1 Chloride 98 98 Carbon Dioxide 27 25 BUN 25 H 32 H Creatinine 1.95 H 2.35 H Glucose 108 H 134 H Calcium 8.7 8.1 L Cardiac Enzymes 01/18/19 01/18/19 01/19/19 Range/Units 14:06 18:19 00:12 Troponin I 0.05 H* 0.04 H* 0.05 H* (< 0.04) ng/mL 01/19/19 Range/Units 04:14 Troponin I 0.05 H* (< 0.04) ng/mL - ABG Interpretation ABG results: PT/INR, D-dimer PT 14.9 Seconds (9.4-12.1) H 01/18/19 14:06 - Impressions Impressions Chest X-Ray 01/18/19 14:00 IMPRESSION: Right upper and left lower lobe consolidative infiltrates with small pleural effusions. D/ / 01/18/2019 14:37:16 Jd Davis MD / areli Interpreting Provider: Jd Davis MD Consult Discharge Plan - Plan Referrals: Therese Garcia, [employer] [Primary Care Provider] - (1) Sepsis Qualifiers: Sepsis type: sepsis due to unspecified organism Sepsis acute organ dysfunction status: with acute organ dysfunction Severe sepsis acute organ dysfunction type: acute respiratory failure Acute respiratory failure type: with hypoxia Severe sepsis shock status: without septic shock Qualified Code(s): A41.9 - Sepsis, unspecified organism; R65.20 - Severe sepsis without septic shock; J96.01 - Acute respiratory failure with hypoxia (3) Acute and chronic respiratory failure ([id number]) Qualifiers: Respiratory failure complication: hypoxia Qualified Code(s): J96.21 - Acute and chronic respiratory failure with hypoxia (5) Afib Qualifiers: Atrial fibrillation type: chronic Qualified Code(s): I48.2 - Chronic atrial fibrillation (6) CHF (congestive heart failure) Qualifiers: Heart failure type: diastolic Heart failure chronicity: unspecified Qualified Code(s): I50.30 - Unspecified diastolic (congestive) heart failure (8) COPD (chronic obstructive pulmonary disease) Qualifiers: COPD type: unspecified COPD Qualified Code(s): J44.9 - Chronic obstructive pulmonary disease, unspecified (10) Diabetes mellitus Qualifiers: Diabetes mellitus type: type 2 Diabetes mellitus residential insulin use: with residential use Diabetes mellitus complication status: with kidney complications Diabetes mellitus complication detail: with chronic kidney disease Chronic kidney disease stage: on chronic dialysis Qualified Code(s): E11.22 - Type 2 diabetes mellitus with diabetic chronic kidney disease; N18.6 - End stage renal disease; Z79.4 - skilled nursing (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
[2019-01-19 14:31] LABS: Hepatitis B Surface Antibody < 3.10 mIU/mL
[2019-01-19 14:42] LABS: Hepatitis B Surface Antigen Nonreactive (Nonreactive)
[2019-01-19] MEDS ORDERED: Albumin 25% 12.5gm/50mL 25.0 GM/100 ML IV.SOLN ONE (14:53)
[2019-01-19] MEDS ORDERED: Albumin 25% 25gram/100mL 25 GM/100 ML IV.SOLN IVPB ONE (16:25)
[2019-01-19] MEDS: Renal Vitamin 1 CAP CAPSULE PO SCH (16:31)
[2019-01-19] MEDS ORDERED: Acetaminophen IV 500 MG/50 ML INFUS..BTL IVPB ONE (20:38)
[2019-01-19] MEDS ORDERED: Cefepime HCl 1,000 MG in Water for inj. (sterile) 10 ML IVP SCH (21:00)
[2019-01-19 23:52] LABS: Adenovirus F 40/41 PCR Not detected (Not detect); Astrovirus PCR Not detected (Not detect); C.difficile Toxin A/B Gene PCR Not detected (Not detect); Campylobacter by PCR Not detected (Not detect); Cryptosporidium by PCR Not detected (Not detect); Cyclospora cayetanensis PCR Not detected (Not detect); E. coli O157 by PCR Not detected (Not detect); Entamoeba histolytica PCR Not detected (Not detect); Enteroaggregative E.coli(EAEC) Not detected (Not detect); Enteropathogenic E.coli(EPEC) Not detected (Not detect); Enterotoxigenic E.coli (ETEC) Not detected (Not detect); Giardia lamblia PCR Not detected (Not detect); Norovirus GI/GII PCR Not detected (Not detect); Plesiomonas shigelloides PCR Not detected (Not detect); Rotavirus A PCR Not detected (Not detect); Salmonella PCR Not detected (Not detect); Sapovirus PCR Not detected (Not detect); Shig/EnteroinvasiveE coli EIEC Not detected (Not detect); Shigalike tox-prod E coli STEC Not detected (Not detect); Vibrio PCR Not detected (Not detect); Vibrio cholerae PCR Not detected (Not detect); Yersinia enterocolitica PCR Not detected (Not detect)
[2019-01-20] MEDS: Levalbuterol Neb 1.25 MG/3 ML IH SCH ×4 (03:33→21:47)
[2019-01-20 05:52] LABS: ABG Base Excess 3 mEq/L (-2 to 3); ABG HCO3 27 mEq/L (21-27); ABG Oxygen Saturation 98 % (95-98); ABG PCO2 40 mmHg (35-45); ABG PH 7.44 pH Units (7.32-7.45); ABG PO2 102 mmHg (85-104); ABG TCO2 28 mEq/L (20-26); Blood Gas Modality AF; Blood Gas PEEP 10 cm H2O; Blood Gas VT 450 cc
[2019-01-20 07:06] LABS: Basophils % 0.2 %; Mean Platelet Volume 10.8 fL (9.4-12.4); Platelet Count 203 K/mcL (140-400); Red Blood Count 3.93 M/mcL (3.82-4.97)
[2019-01-20 07:08] LABS: Eosinophils # 0.1 K/mcL (0.0-0.6); Eosinophils % 0.4 %; Hematocrit 37.3 % (35.3-44.9); Hemoglobin 10.8 g/dL (11.5-15.4); Immature Granulocytes % 0.8 % (0-4); Lymphocytes # 1.3 K/mcL (0.6-4.6); Lymphocytes % 6.5 %; Mean Corpuscular Hemoglobin 27.5 pg (28.0-33.3); Mean Corpuscular Volume 94.9 fL (83.0-100.0); Monocytes # 0.6 K/mcL (0.0-1.3); Monocytes % 2.9 %; Neutrophils # 17.5 K/mcL (1.6-8.9); Red Cell Distribution Width 19.9 % (11.5-14.5); Segmented Neutrophils % 89.2 %; White Blood Count 19.6 K/mcL (4.3-11.1)
[2019-01-20 07:26] LABS: Albumin 2.9 g/dL (3.5-5.7); Albumin/Globulin Ratio 0.9 (1.1-2.2); Bilirubin,Total 0.6 mg/dL (0.3-1.0); Globulin 3.4 g/dL (2.4-3.5); Potassium 3.6 mEq/L (3.5-5.1); Total Protein 6.3 g/dL (6.4-8.9)
[2019-01-20 07:30] LABS: Anisocytosis 1+ (Not Present)
[2019-01-20 07:31] LABS: Hypochromasia Present (Not Present); Platelet Estimate Normal (Normal)
[2019-01-20] MEDS: Ascorbic Acid 500 MG TABLET PO SCH (08:50)
[2019-01-20] MEDS: *HR* Amiodarone 200 MG TABLET PO SCH (08:50)
[2019-01-20] MEDS: predniSONE 1 MG TABLET PO SCH (08:50)
[2019-01-20] MEDS: predniSONE 5 MG TABLET PO SCH (08:50)
[2019-01-20] MEDS: Apixaban 2.5 MG TABLET PO SCH (08:50)
[2019-01-20] MEDS: Clindamycin 600 MG/50 ML 600 MG/50 ML IV.SOLN IVPB SCH (08:51)
[2019-01-20] MEDS: Insulin LISPRO 300 UNITS/3 ML VIAL SQ SCH ×4 (08:55→22:07)
--- NOTE | 2019-01-20 09:47 | Internal Med Progress Note ---
Hospitalist Progress Note - Encounter Date of Encounter: 01/20/19 Time of Encounter: 09:45 - Subjective Interval History: Patient seen and examined. No acute events overnight. Patient states she is doing well and family agrees she looks better. Patient received dialysis yesterday and has improved respiratory status. Still on ventilator but planning to switch to NC today. Per nursing, patient refusing CT scan. Family states it is because she is tired. - Exam Vitals: Temp Pulse Resp BP Pulse Ox 99.6 F 88 15 89/54 96 01/20/19 07:13 01/20/19 07:13 01/20/19 07:13 01/20/19 07:13 01/20/19 07:13 Exam: GENERAL APPEARANCE: Well developed, well nourished, alert and cooperative, and appears to be in no acute distress. HEENT: Normocephalic/atraumatic, PERRLA. NECK: Supple, nontender without lymphadenopathy. CARDIOVASCULAR: Normal S1, S2; regular rate and rhythm; no murmurs. RESPIRATORY: Coarse breath sounds; unable to auscultate wheezing or crackles; trach in place ABDOMEN: Soft, nondistended, nontender; bowel sounds present. MUSKULOSKELETAL: No limitations in range of motion. EXTREMITIES: 1+ pitting edema b/l NEUROLOGICAL: No focal neurological deficits. SKIN: Skin normal color, texture and turgor with no lesions or eruptions. PSYCHIATRIC: Judgment and reasoning; no hallucinations; normal affect. - Assessment and Plan (1) Sepsis Current Visit: Yes Status: Acute Assessment and Plan: Patient presenting with acute respiratory failure and meeting criteria for sepsis with tachycardia, hypoxia, leukocytosis. Patient recently treated for PNA and bacteremia for pseudomonas with meropenam Blood pressure stable Patient was unable to complete dialysis day before admission Repeat Lactic acid normal Leukocytosis improving Plan: Continue vanc, clindamycin, and cefepime; renally dose per pharmacy Pulmonology on board Consider ID pending blood cultures F/u blood cultures F/u urinalysis (2) Ventilator associated pneumonia Current Visit: Yes Status: Acute Assessment and Plan: Patient recently treated for pseudomonoas pneumonia and bacteremia and [facility] with meropenam per family; patient is on prophylactic vancomycin with dialyss Plan: see above (3) Acute and chronic respiratory failure ([id number]) Current Visit: No Status: Acute Assessment and Plan: Patient with chronic trach requiring ventilation at night and 4L NC during day Worsening hypoxia requriing 6L NC to maintain 92% sat on admission Patient looks better but still requiring ventilator Plan: see above PRN breathing treatments continuous pulse oximtery Consult RT Pulmonology on board for management of ventilator Consider palliative care consult as patient has had multiple admissions (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 (5) Afib Current Visit: No Status: Chronic Assessment and Plan: Plan: telemetry; continue eliquis and home meds (6) CHF (congestive heart failure) Current Visit: No Status: Chronic Assessment and Plan: Patient with history of systolic CHF Did appear volume overloaded yesterday and seems to have improved after dialysis Plan: monitor volume status; continue home meds (7) CKD (chronic kidney disease) stage V requiring chronic dialysis Current Visit: No Status: Chronic Assessment and Plan: Patient with ESRD on dialysis M,W,F Did not complete dialysis day of admission Plan: Nephro consulted; monitor renal function (8) COPD (chronic obstructive pulmonary disease) Current Visit: No Status: Chronic Assessment and Plan: Patient with history of COPD on chronic O2 via trach Plan: continue PRN breathing treatments Pulmonology on board (9) Hypokalemia Current Visit: Yes Status: Resolved Assessment and Plan: K 3.3 on admission -replace and monitor (10) Diabetes mellitus Current Visit: No Status: Chronic - Time Spent with Patient Total time spent is greater than 50% in coordination of care (as documented) at patient's floor/unit and/or counseling patient: 40 minutes Plan of Care Discussed with: patient Internal Medicine: Result - Labs CBC & Chem 7: 01/20/19 06:54 01/20/19 06:54 Labs: Short CBC 01/20/19 Range/Units 06:54 WBC 19.6 H (4.3-11.1) K/mcL Hgb 10.8 L (11.5-15.4) g/dL Hct 37.3 (35.3-44.9) % Plt Count 203 (140-400) K/mcL Neutrophils # 17.5 H (1.6-8.9) K/mcL BMP 01/20/19 06:54 Sodium 138 Potassium 3.6 Chloride 96 L Carbon Dioxide 25 BUN 20 Creatinine 1.86 H Glucose 241 H Calcium 9.0 Liver Function 01/20/19 Range/Units 06:54 Total Bilirubin 0.6 (0.3-1.0) mg/dL AST 15 (13-39) Units/L ALT 13 (7-52) Units/L Alkaline Phosphatase 120 H (34-104) Units/L Albumin 2.9 L (3.5-5.7) g/dL - ABG Interpretation ABG results: ABG ABG pH 7.44 pH Units (7.32-7.45) 01/20/19 05:48 ABG pCO2 40 mmHg (35-45) 01/20/19 05:48 ABG pO2 102 mmHg (85-104) 01/20/19 05:48 ABG O2 Saturation 98 % (95-98) 01/20/19 05:48 PT/INR, D-dimer PT 14.9 Seconds (9.4-12.1) H 01/18/19 14:06 Consult Discharge Plan - Plan Referrals: Therese Garcia CNP [Primary Care Provider] - (1) Sepsis Qualifiers: Sepsis type: sepsis due to unspecified organism Sepsis acute organ dysfunction status: with acute organ dysfunction Severe sepsis acute organ dysfunction type: acute respiratory failure Acute respiratory failure type: with hypoxia Severe sepsis shock status: without septic shock Qualified Code(s): A41.9 - Sepsis, unspecified organism; R65.20 - Severe sepsis without septic shock; J96.01 - Acute respiratory failure with hypoxia (3) Acute and chronic respiratory failure ([id number]) Qualifiers: Respiratory failure complication: hypoxia Qualified Code(s): J96.21 - Acute and chronic respiratory failure with hypoxia (5) Afib Qualifiers: Atrial fibrillation type: chronic Qualified Code(s): I48.2 - Chronic atrial fibrillation (6) CHF (congestive heart failure) Qualifiers: Heart failure type: diastolic Heart failure chronicity: unspecified Qualified Code(s): I50.30 - Unspecified diastolic (congestive) heart failure (8) COPD (chronic obstructive pulmonary disease) Qualifiers: COPD type: unspecified COPD Qualified Code(s): J44.9 - Chronic obstructive pulmonary disease, unspecified (10) Diabetes mellitus Qualifiers: Diabetes mellitus type: type 2 Diabetes mellitus longterm insulin use: with longterm use Diabetes mellitus complication status: with kidney complications Diabetes mellitus complication detail: with chronic kidney disease Chronic kidney disease stage: on chronic dialysis Qualified Code(s): E11.22 - Type 2 diabetes mellitus with diabetic chronic kidney disease; N18.6 - End stage renal disease; 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
--- NOTE | 2019-01-20 09:55 | Nephrology Progress Note ---
Date of Encounter: 01/20/19 Time of Encounter: 09:55 - Assessment and Plan (1) ESRD (end stage renal disease) on dialysis Current Visit: No Status: Chronic HD MWF. Renal vitamins. Renal dose medications. Renal diet. Additional dialysis and ultrafiltration as needed. Plan for dialysis Monday (2) Anemia Current Visit: No Status: Chronic Transfusion per the primary team. 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 Management per the primary team. Qualifiers: Respiratory failure complication: hypoxia and hypercapnia Qualified Co de(s): J96.21 - Acute and chronic respiratory failure with hypoxia; J96.22 - Acute and chronic respiratory failure with hypercapnia Subjective Principal diagnosis: esrd Interval history: The patient was seen. She has a trach and is on the vent. She appears comfortable and is asleep. Her final results of the bedside and states she thinks she is better. Additional review of systems is unavailable at this time. Objective - Vital Signs Vital signs: Vital Signs Temp Pulse Resp BP Pulse Ox 01/20/19 07:13 99.6 F 88 15 89/54 96 01/20/19 03:59 98.8 F 90 16 92/58 96 01/20/19 03:35 18 110/93 100 01/20/19 01:17 17 110/93 100 01/19/19 23:47 98.2 F 91 16 110/93 98 01/19/19 21:27 26 101/71 94 01/19/19 20:00 95 18 101/71 95 01/19/19 19:30 25 121/77 93 01/19/19 19:25 91/47 01/19/19 19:15 101/75 01/19/19 19:05 104/67 01/19/19 18:50 106/63 01/19/19 18:35 101/54 01/19/19 18:20 113/74 01/19/19 18:05 113/51 01/19/19 17:50 101/56 01/19/19 17:35 97/49 01/19/19 17:20 94/55 01/19/19 17:05 100/54 01/19/19 16:50 106/65 01/19/19 16:35 121/66 01/19/19 16:20 97.9 F 20 126/70 01/19/19 11:35 17 90 01/19/19 11:17 99.5 F 82 18 111/75 90 Intake and Output 01/19/19 01/20/19 01/20/19 23:59 07:59 15:59 Intake Total 660 / 760 50 / 50 Balance 660 / 760 50 / 50 Intake: IV Fluids 60 / 160 50 / 50 Maxipime 1,000 MG In Water for inj. (sterile) 10 ML @ 300 mls/ hr IVP HS [facility] Rx#:[id number] Ofirmev 1,000 mg/100 ml 500 mg 50 / 50 In 50 ml @ 200 mls/hr IVPB ONCE ONE Rx#:[id number] Cleocin Premix 600 MG/50 ML 600 50 / 50 mg In 50 ml @ 50 mls/hr IVPB Q8HR [facility] Rx#:[id number] Oral 0 / 0 Intake, Rinseback and Flushes 600 / 600 Other: Stool Size Small Stool Consistency loose # Bowel Movement Diapers 1 Blood Glucose* 197 229 Hemodialysis Net Fluid Removed 3600 (mL) - General Appearance General appearance: Present: well-developed, well-nourished EENT: Present: ATNC Neck: Present: supple Cardiology: Present: edema, regular rate Integumentary: Present: warm and dry - Lab 01/20/19 06:54 01/20/19 06:54 Most recent lab results 01/20/19 01/20/19 05:48 06:54 ABG pH 7.44 ABG pCO2 40 ABG pO2 102 ABG HCO3 27 ABG O2 Saturation 98 Calcium 9.0 Consult Discharge Plan - Plan Referrals: Therese Garcia CNP [Primary Care Provider] -
[2019-01-20] MEDS: Budesonide/Formoterol 160/4.5 1 PUFF INH IH SCH ×2 (10:29→21:47)
--- NOTE | 2019-01-20 15:29 | Pulmonology Progress Note ---
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 The presentation does not look like COPD exacerbation Qualifiers: Emphysema type: centrilobular Qualified Code(s): J43.2 - Centrilobular emphysema (3) Pulmonary edema Current Visit: Yes Status: Acute Patient pulmonary edema as lot better after dialysis V/Q mismatch is getting better Qualifiers: Chronicity: acute Qualified Code(s): J81.0 - Acute pulmonary edema (4) Ventilator associated pneumonia Current Visit: Yes Status: Acute To wait for cultures and de-escalate antibiotics accordingly if the patient is not getting better after adequate dialysis repeat a CT chest to see for any worsening consolidation in that case patient might benefit from bronchoscopy with BAL. Subjective Principal diagnosis: esrd Interval history: Patient presented with acute on chronic respiratory failure patient was recently treated for pneumonia patient declined CT scan is here for evaluation of worsening consolidation patient had dialysis today her oxygen requirements are coming down. Objective PUL Vital signs: Last Vital Signs Temp 99.3 F 01/20/19 11:47 Pulse 74 01/20/19 11:47 Resp 23 01/20/19 11:47 BP 86/48 01/20/19 11:47 Pulse Ox 100 01/20/19 11:47 General appearance: no acute distress, alert Eyes: nonicteric Effort: mildly labored Auscultation: bilateral: diminished breath sounds, rales (Some scattered rales ) Cardiovascular: regular rate and rhythm Gastrointestinal: hypoactive bowel sounds Extremities: edema normal mental status, non-focal exam depressed Ventilator Settings Ventilator Settings: Ventilator Settings, Last 8 Hours Ventilator Tidal Volume 450 Setting Ventilator Tidal Volume 450 Setting Ventilator Tidal Volume 450 Setting Ventilator Tidal Volume 450 Setting Ventilator Tidal Volume 450 Setting Ventilator Respiratory Rate 12 Setting Ventilator Respiratory Rate 12 Setting Ventilator Respiratory Rate 12 Setting Ventilator Respiratory Rate 12 Setting Actual Respiratory Rate 21 Actual Respiratory Rate 21 Actual Respiratory Rate 23 Positive End Expiratory 10 Pressure Positive End Expiratory 10 Pressure Positive End Expiratory 10 Pressure Positive End Expiratory 10 Pressure Positive End Expiratory 10 Pressure Peak Inspiratory Airway 26 Pressure Peak Inspiratory Airway 26 Pressure Peak Inspiratory Airway 31 Pressure Results - Laboratory Findings CBC and BMP: 01/20/19 06:54 01/20/19 06:54 ABG ABG pH 7.44 pH Units (7.32-7.45) 01/20/19 05:48 ABG pCO2 40 mmHg (35-45) 01/20/19 05:48 ABG pO2 102 mmHg (85-104) 01/20/19 05:48 ABG O2 Saturation 98 % (95-98) 01/20/19 05:48 PT/INR, D-dimer PT 14.9 Seconds (9.4-12.1) H 01/18/19 14:06 Abnormal lab findings: Abnormal lab results WBC 19.6 K/mcL (4.3-11.1) H 01/20/19 06:54 Hgb 10.8 g/dL (11.5-15.4) L 01/20/19 06:54 MCH 27.5 pg (28.0-33.3) L 01/20/19 06:54 MCHC 29.0 g/dL (31.6-35.5) L 01/20/19 06:54 RDW 19.9 % (11.5-14.5) H 01/20/19 06:54 Neutrophils # 17.5 K/mcL (1.6-8.9) H 01/20/19 06:54 Hypochromasia Present (Not Present) A 01/20/19 06:54 Anisocytosis 1+ (Not Present) A 01/20/19 06:54 PT 14.9 Seconds (9.4-12.1) H 01/18/19 14:06 ABG Total CO2 28 mEq/L (20-26) H 01/20/19 05:48 VBG HCO3 29 mEq/L (21-27) H 01/18/19 14:17 Sodium 134 mEq/L (136-145) L 01/19/19 00:12 Potassium 3.3 mEq/L (3.5-5.1) L 01/18/19 14:06 Chloride 96 mEq/L (98-107) L 01/20/19 06:54 BUN 32 mg/dL (8-23) H 01/19/19 00:12 Creatinine 1.86 mg/dL (0.60-1.20) H 01/20/19 06:54 Est GFR ( Amer) 32 (> 60) L 01/20/19 06:54 Est GFR (Non-Af Amer) 26 (> 60) L 01/20/19 06:54 Glucose 241 mg/dL (70-105) H 01/20/19 06:54 POC Glucose 229 mg/dL (70-99) H 01/20/19 05:55 Lactic Acid 2.3 mmol/L (0.5-2.2) H 01/18/19 14:06 Calcium 8.1 mg/dL (8.6-10.3) L 01/19/19 00:12 Alkaline Phosphatase 120 Units/L (34-104) H 01/20/19 06:54 Troponin I 0.05 ng/mL (< 0.04) H* 01/19/19 04:14 B-Natriuretic Peptide 263 pg/mL (Less than 100) H 01/18/19 14:06 Serum Total Protein 6.3 g/dL (6.4-8.9) L 01/20/19 06:54 Albumin 2.9 g/dL (3.5-5.7) L 01/20/19 06:54 Albumin/Globulin Ratio 0.9 (1.1-2.2) L 01/20/19 06:54 Hep Bs Antibody < 3.10 mIU/mL (10.00-) L 01/19/19 12:43 - Microbiology Findings Microbiology Findings: Microbiology, Last 48 Hours 01/18/19 14:06 Blood Culture - Preliminary Peripheral Venipuncture Culture is incubating and being continuously monitored for growth. Final report to follow. 01/18/19 14:06 Blood Culture - Preliminary Peripheral Venipuncture Culture is incubating and being continuously monitored for growth. Final report to follow. - Clinical Findings Intake & Output: Intake & Output 01/19/19 01/20/19 01/20/19 23:59 07:59 15:59 Intake Total 660 / 760 50 / 100 50 / 100 Balance 660 / 760 50 / 100 50 / 100 Consult Discharge Plan - Plan Referrals: Therese Garcia CNP [Primary Care Provider] - Critical Care Time Critical Care Time: Yes Total Critical Care Time: 33 Attestation: I spent 33 minutes of Critical Care time with this patient. It involved decision making of high complexity to assess, manipulate, and support vital organ system failure and/or to prevent further life threatening deterioration of the patient's condition. The time involved in the performance of separately reportable procedures was not counted toward critical care time.
[2019-01-20] MEDS: Meropenem 1,000 MG in 0.9 % Sodium Chloride Mini Bag 100 ML IVPB SCH (15:42)
[2019-01-20] MEDS: Renal Vitamin 1 CAP CAPSULE PO SCH (15:43)
[2019-01-21] MEDS: Levalbuterol Neb 1.25 MG/3 ML IH SCH ×6 (03:35→22:33)
--- NOTE | 2019-01-21 05:36 | Event Note ---
Date of Encounter: 01/21/19 Time of Encounter: 00:27 Alerted by patient's nurse JONATHAN Freeman the patient was admitted for pneumonia versus pulmonary edema. Patient is also a dialysis patient with chronic trach vent. Nurse reported patient is hypotensive with BPs of 71/46, 75/39, 65/44, 69/44. Family at bedside stated [facility] would give the patient Midodrine 3 times a day when she was admitted there previously. 250 ml bolus ordered for hypotension per Nephrology. Discussed pt. w/Dr. Doe w/recommendation to start Midodrine 10 mg as a one-time dose, followed by 5 mg TID, as well as administer 250 ml bolus. BPs improved to 88/45, 77/40, and 83/45 post-Midodrine administration. Nurse instructed to alert me immediately of any new or adverse changes or continued drops in BP.
[2019-01-21] MEDS ORDERED: Acetaminophen IV 1,000 MG/100 ML INFUS..BTL IVPB ONE (06:19)
[2019-01-21 07:00] LABS: Hematocrit 35.4 % (35.3-44.9); Hemoglobin 10.4 g/dL (11.5-15.4); Mean Corpuscular HGB Conc 29.4 g/dL (31.6-35.5); Mean Corpuscular Hemoglobin 27.7 pg (28.0-33.3); Mean Corpuscular Volume 94.4 fL (83.0-100.0); Mean Platelet Volume 10.5 fL (9.4-12.4); Platelet Count 212 K/mcL (140-400); Red Blood Count 3.75 M/mcL (3.82-4.97); Red Cell Distribution Width 20.2 % (11.5-14.5); White Blood Count 20.5 K/mcL (4.3-11.1)
[2019-01-21 07:18] LABS: Calcium 9.3 mg/dL (8.6-10.3); Potassium 3.4 mEq/L (3.5-5.1)
[2019-01-21] MEDS: predniSONE 1 MG TABLET PO SCH (08:20)
[2019-01-21] MEDS: predniSONE 5 MG TABLET PO SCH (08:21)
[2019-01-21] MEDS: *HR* Amiodarone 200 MG TABLET PO SCH (08:23)
[2019-01-21] MEDS: Apixaban 2.5 MG TABLET PO SCH (08:31)
[2019-01-21] MEDS: Ascorbic Acid 500 MG TABLET PO SCH (08:32)
[2019-01-21] MEDS: Insulin LISPRO 300 UNITS/3 ML VIAL SQ SCH ×4 (08:35→21:21)
[2019-01-21] MEDS ORDERED: Albumin 25% 25gram/100mL 25 GM/100 ML IV.SOLN IVPB PRN (08:53)
[2019-01-21] MEDS ORDERED: *HR* Heparin 10,000 UNIT/10 ML VIAL IV PRN (08:53)
[2019-01-21] MEDS ORDERED: 0.9 % Sodium Chloride 250 ML IVC PRN (08:53)
[2019-01-21] MEDS ORDERED: Insulin DETEMIR 100 UNIT/ML X5UNITS SQ SCH (09:00)
[2019-01-21] MEDS ORDERED: Albumin 25% 12.5gm/50mL 25.0 GM/100 ML IV.SOLN ONE (10:13)
--- NOTE | 2019-01-21 10:15 | Pulmonology Progress Note ---
<YukoDarryl W - Last Filed: 01/21/19 11:09> Date of Encounter: 01/21/19 Objective PUL Vital signs: Last Vital Signs Temp 100.0 F H 01/21/19 07:55 Pulse 87 01/21/19 07:55 Resp 18 01/21/19 07:55 BP 81/42 01/21/19 07:55 Pulse Ox 97 01/21/19 09:10 Ventilator Settings Ventilator Settings: Ventilator Settings, Last 8 Hours Ventilator Tidal Volume 450 Setting Ventilator Respiratory Rate 12 Setting Actual Respiratory Rate 21 Positive End Expiratory 8.0 Pressure Peak Inspiratory Airway 25 Pressure Results - Laboratory Findings CBC and BMP: 01/21/19 06:47 01/21/19 06:47 ABG ABG pH 7.44 pH Units (7.32-7.45) 01/20/19 05:48 ABG pCO2 40 mmHg (35-45) 01/20/19 05:48 ABG pO2 102 mmHg (85-104) 01/20/19 05:48 ABG O2 Saturation 98 % (95-98) 01/20/19 05:48 PT/INR, D-dimer PT 14.9 Seconds (9.4-12.1) H 01/18/19 14:06 Abnormal lab findings: Abnormal lab results WBC 20.5 K/mcL (4.3-11.1) H 01/21/19 06:47 RBC 3.75 M/mcL (3.82-4.97) L 01/21/19 06:47 Hgb 10.4 g/dL (11.5-15.4) L 01/21/19 06:47 MCH 27.7 pg (28.0-33.3) L 01/21/19 06:47 MCHC 29.4 g/dL (31.6-35.5) L 01/21/19 06:47 RDW 20.2 % (11.5-14.5) H 01/21/19 06:47 Neutrophils # 17.5 K/mcL (1.6-8.9) H 01/20/19 06:54 Hypochromasia Present (Not Present) A 01/20/19 06:54 Anisocytosis 1+ (Not Present) A 01/20/19 06:54 PT 14.9 Seconds (9.4-12.1) H 01/18/19 14:06 ABG Total CO2 28 mEq/L (20-26) H 01/20/19 05:48 VBG HCO3 29 mEq/L (21-27) H 01/18/19 14:17 Sodium 131 mEq/L (136-145) L 01/21/19 06:47 Potassium 3.4 mEq/L (3.5-5.1) L 01/21/19 06:47 Chloride 96 mEq/L (98-107) L 01/21/19 06:47 BUN 33 mg/dL (8-23) H 01/21/19 06:47 Creatinine 2.75 mg/dL (0.60-1.20) H 01/21/19 06:47 Est GFR ( Amer) 20 (> 60) L 01/21/19 06:47 Est GFR (Non-Af Amer) 17 (> 60) L 01/21/19 06:47 Glucose 259 mg/dL (70-105) H 01/21/19 06:47 POC Glucose 128 mg/dL (70-99) H 01/20/19 16:16 Lactic Acid 2.3 mmol/L (0.5-2.2) H 01/18/19 14:06 Calcium 8.1 mg/dL (8.6-10.3) L 01/19/19 00:12 Alkaline Phosphatase 120 Units/L (34-104) H 01/20/19 06:54 Troponin I 0.05 ng/mL (< 0.04) H* 01/19/19 04:14 B-Natriuretic Peptide 263 pg/mL (Less than 100) H 01/18/19 14:06 Serum Total Protein 6.3 g/dL (6.4-8.9) L 01/20/19 06:54 Albumin 2.9 g/dL (3.5-5.7) L 01/20/19 06:54 Albumin/Globulin Ratio 0.9 (1.1-2.2) L 01/20/19 06:54 Hep Bs Antibody < 3.10 mIU/mL (10.00-) L 01/19/19 12:43 - Clinical Findings Intake & Output: Intake & Output 01/20/19 01/21/19 01/21/19 23:59 07:59 15:59 Intake Total 250 / 250 Balance 250 / 250 Consult Discharge Plan - Plan Referrals: Therese Garcia, AMBULATORY SERVICE REPRESENTATIVE [Primary Care Provider] - (Therese Garcia does home visits so the family will have to call and make a follow up with her when patient is discharged) - Attending Attestation I examined this patient and my medical decision-making was reviewed with the Resident Physician. I agree with the documented findings, disposition and treatment plan as described except to the extent set forth below. We independently had [id number]-[id number] contact with the patient Patient seen and examined at bedside Labs, radiology, chart personally reviewed. Impression/Recs #Acute on chronic hypoxic respiratory failure-continue minimal vent support for now can likely be transitioned to pressure support over the course of the day and vent at night => back to baseline trach collar during the day with vent at night # Sepsis secondary to pneumonia. 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 She has been sensitive to carp [place] the past and it is reasonable to continue this at this time recommend formal infectious disease consultation. I suspect the patient will need bronchoscopy and have discussed this with the patient's family will follow-up after dialysis to see clinically how stable she has and consider this for tomorrow in preparation for this would need to hold her anticoagulation for at least 24 hours. She will need to be nothing by mouth at midnight for this reason #Hypotension without evidence of shock physiology: Agree with Midodrine and albumin challenges #COPD - continue bronchodilators # Chronic use of systemic glucocorticoids - given hypotension would add stress dose hydrocortisone # Goals of care discussion- met with the healthcare parapertussis and the patient's surrogate because she was quite somnolent when I examined her they were clear that patient would not want heroic efforts but after able to improve the situation temporarily even that they would want that and so will continue aggressive care for now her overall prognosis is very poor. I agree with formal palliative care consultation <Deng Freeman - Last Filed: 01/21/19 16:01> Date of Encounter: 01/21/19 Time of Encounter: 08:00 Assessment and Plan (1) Acute and chronic respiratory failure Current Visit: Yes Status: Acute Patient presents with acute on chronic Hypoxic Respiratory Failure Baseline 4L O2 Trach Collar during day with nighttime pressure support Currently unable to take patient off ventilator; PEEP 8, FiO2 50% Etiology of V/Q mismatch 2/2 Pneumonia CXR on admission showed RUL consolidation CT Chest 01/21 revealed cavitary lesion with air-fluid levels in [place] of Right Lung Patient was on Vanc/Cefepime/Clinda, switched 01/20 to Vanc/Merropenem Pulmonary Edema also possibly contributing to worsening respiratory status given obvious fluid overload in setting of ESRD Plan: -Continue vent support for now, will ultimately transition to pressure support during day with vent at night -Eventual Goal of Trach Collar during day and Pressure Support HS -Will proceed with bronchoscopy tomorrow given multidrug resistant Pseudomonal PNA and Fungal PNA history and new cavitary lung lesion -Respiratory Infection Panel ordered -F/U blood cultures, NGTD -F/U sputum cultures, not yet collected -Continue Bronchodilators Qualifiers: Respiratory failure complication: hypoxia Qualified Code(s): J96.21 - Acute and chronic respiratory failure with hypoxia (2) Sepsis Current Visit: No Status: Acute 2/2 pneumonia Tachycardia/Hypoxia/Leukocytosis on admission Now with fever up to 101 last night Switched from Vanc/Cefepime/Clindamycin to Vanc/Meropenem yesterday Hx of MDR bacteremia and PNA Recently treated up at [facility] for Psuedomonal PNA, completed ABX right before readmission here Patient has been Hypotensive but Lactate has been WNL Plan: -Continue with albumin for volume expansion -Continue with current ABX for now, ID has been consulted and we appreciate their recommendations -Begin 50mg IV SoluCortef Q6Hrs for possible adrenal insufficiency -Proceed with Bronchoscopy tomorrow, NPO midnight, Eliquis on hold Qualifiers: Sepsis type: Streptococcus, other Sepsis acute organ dysfunction status: unspecified Qualified Code(s): A40.8 - Other streptococcal sepsis (3) Pneumonia Current Visit: No Status: Ruled-out Plan as above Bronch tomorrow ID consulted placed Cont. ABX Qualifiers: Pneumonia type: due to unspecified organism Laterality: bilateral Lung location: unspecified part of lung Qualified Code(s): J18.9 - Pneumonia, unspecified organism (4) Current chronic use of systemic steroids Current Visit: Yes Status: Acute Patient may be presenting with Adrenal Insufficiency given prison use of steroids now presenting with Hypotension and Hyponatremia Will start 50mg IVP SoluCortef Q6Hrs (5) COPD (chronic obstructive pulmonary disease) Current Visit: Yes Status: Acute Not in acute exacerbation No evidence of wheezing on exam Will still proceed with Steroids given possibility of Adrenal Insufficiency Qualifiers: Emphysema type: centrilobular Qualified Code(s): J43.2 - Centrilobular emphysema Subjective Principal diagnosis: esrd Interval history: Briefly, Mrs. Parks is a 78F with PMHx of ESRD, CHF, MS, HTN, HLD, CVA and COPD with a tracheostomy x2yrs who is currently admitted for acute on chronic hypoxic and hypercapnic respiratory failure and sepsis secondary to pneumonia with history of pseudomonal PNA and Enteroccocal bacteremia. All labs, images and documentation reviewed. The patient is typically on Trach Collar with 4L O2 during day and Pressure Support at night however was unable to maintain SpO2 greater than 88%. Found to have RUL consolidation, and met sepsis criteria with Tachycardia, Hypoxia and Leukocytosis. Patient was started on Vanc/Cefepime/Clindamycin however this was switched to Meropenem and Vancomycin on Hospital day 3. Patients White Count has been consistently elevated however her tachycardia has resolved and her lactate has been negative. Patient has tolerated her FiO2 and PEEP being titrated down quite well. Patient is quite somnolent today and does not answer questions but does open eyes on command. Family reports patient seems improved today compared to the weekend. She no longer exhibits audible rhonchi. Discussed with family the seriousness of her current condition and they reported they would still like aggressive measures to be taken. Will have a low threshold for transfer to ICU. Discussed the risks benefits of performing a Bronchoscopy on the patient and they were agreeable to proceed. Objective PUL Vital signs: Last Vital Signs Temp 100.0 F H 01/21/19 07:55 Pulse 87 01/21/19 07:55 Resp 18 01/21/19 07:55 BP 81/42 01/21/19 07:55 Pulse Ox 97 01/21/19 09:10 Gen: somnolent, pale, frail, vitals noted Head: Atraumatic, normocephalic Eyes: opens eyes on command, no spontaneous opening observed, anicteric ENT: Mucous membranes moist Neck: trach collar in place, no evidence of leak CV: Regular Rate, Regular Rhythm, no murmurs Resp: Diminished LLL, Rest of lung field normal, no rhonchi or wheeze, no rales Abd: soft, nontender, nondistended, Bowel Sounds Present Ext: +1 pretibial pitting edema, no clubbing Skin: diffuse ecchymosis, no rash, warm and dry Ventilator Settings Ventilator Settings: Ventilator Settings, Last 8 Hours Ventilator Tidal Volume 450 Setting Ventilator Respiratory Rate 12 Setting Actual Respiratory Rate 21 Positive End Expiratory 8.0 Pressure Peak Inspiratory Airway 25 Pressure Results - Laboratory Findings CBC and BMP: 01/21/19 06:47 01/21/19 06:47 ABG ABG pH 7.44 pH Units (7.32-7.45) 01/20/19 05:48 ABG pCO2 40 mmHg (35-45) 01/20/19 05:48 ABG pO2 102 mmHg (85-104) 01/20/19 05:48 ABG O2 Saturation 98 % (95-98) 01/20/19 05:48 PT/INR, D-dimer PT 14.9 Seconds (9.4-12.1) H 01/18/19 14:06 Abnormal lab findings: Abnormal lab results WBC 20.5 K/mcL (4.3-11.1) H 01/21/19 06:47 RBC 3.75 M/mcL (3.82-4.97) L 01/21/19 06:47 Hgb 10.4 g/dL (11.5-15.4) L 01/21/19 06:47 MCH 27.7 pg (28.0-33.3) L 01/21/19 06:47 MCHC 29.4 g/dL (31.6-35.5) L 01/21/19 06:47 RDW 20.2 % (11.5-14.5) H 01/21/19 06:47 Neutrophils # 17.5 K/mcL (1.6-8.9) H 01/20/19 06:54 Hypochromasia Present (Not Present) A 01/20/19 06:54 Anisocytosis 1+ (Not Present) A 01/20/19 06:54 PT 14.9 Seconds (9.4-12.1) H 01/18/19 14:06 ABG Total CO2 28 mEq/L (20-26) H 01/20/19 05:48 VBG HCO3 29 mEq/L (21-27) H 01/18/19 14:17 Sodium 131 mEq/L (136-145) L 01/21/19 06:47 Potassium 3.4 mEq/L (3.5-5.1) L 01/21/19 06:47 Chloride 96 mEq/L (98-107) L 01/21/19 06:47 BUN 33 mg/dL (8-23) H 01/21/19 06:47 Creatinine 2.75 mg/dL (0.60-1.20) H 01/21/19 06:47 Est GFR ( Amer) 20 (> 60) L 01/21/19 06:47 Est GFR (Non-Af Amer) 17 (> 60) L 01/21/19 06:47 Glucose 259 mg/dL (70-105) H 01/21/19 06:47 POC Glucose 128 mg/dL (70-99) H 01/20/19 16:16 Lactic Acid 2.3 mmol/L (0.5-2.2) H 01/18/19 14:06 Calcium 8.1 mg/dL (8.6-10.3) L 01/19/19 00:12 Alkaline Phosphatase 120 Units/L (34-104) H 01/20/19 06:54 Troponin I 0.05 ng/mL (< 0.04) H* 01/19/19 04:14 B-Natriuretic Peptide 263 pg/mL (Less than 100) H 01/18/19 14:06 Serum Total Protein 6.3 g/dL (6.4-8.9) L 01/20/19 06:54 Albumin 2.9 g/dL (3.5-5.7) L 01/20/19 06:54 Albumin/Globulin Ratio 0.9 (1.1-2.2) L 01/20/19 06:54 Hep Bs Antibody < 3.10 mIU/mL (10.00-) L 01/19/19 12:43 - Clinical Findings Intake & Output: Intake & Output 01/20/19 01/21/19 01/21/19 23:59 07:59 15:59 Intake Total 250 / 250 Balance 250 / 250
[2019-01-21] MEDS: Budesonide/Formoterol 160/4.5 1 PUFF INH IH SCH ×3 (10:20→22:33)
--- NOTE | 2019-01-21 11:40 | Palliative - Consult Note ---
<Chrissie Man B - Last Filed: 01/21/19 12:55> Date of Encounter: 01/21/19 Time of Encounter: 10:00 - Assessment and Plan (1) Advanced care planning/counseling discussion Current Visit: Yes Status: Acute Assessment and plan: Met with family (both daughters) who at this time did not want to discuss hospice care. They report that they have discussed it multiple times in the past and that the patient has denied wanting to be on hospice care in the recent past when the patient was alert and oriented. At this time they want to continue with aggressive treatment of the current acute manifestation of the patient's chronic illness in hopes that the patient will have an improved outcome. Plan to continue to follow as needed based on the patient's response to treatment. - Patient's outpatient records were also reviewed (2) Acute and chronic respiratory failure Current Visit: No Status: Chronic Assessment and plan: Patient is currently on a ventilator for respiratory support. (3) Sepsis Current Visit: No Status: Acute Assessment and plan: Patient is currently on multiple antibiotics. She is currently having worsening of her WBC as well as development of a fever. (4) CKD (chronic kidney disease) stage V requiring chronic dialysis Current Visit: No Status: Chronic (5) Ventilator associated pneumonia Current Visit: Yes Status: Acute Palliative-CN HPI - Data of Consult Patient: new to practice Consult date: 01/21/19 Requesting Physician: Alaina Ornelas MD Primary Care Provider: Therese Garcia CNP - Consult Narrative Palliative Care/Comfort Measures: Palliative care Reason for consult: Goals of care discussion History of present illness: Ms. Parks is a 78 year old female with a past medical history of a-fib, cancer, CHF, COPD, CVA, DM, ESRD-on dialysis, HLD, HTN, [place], presenting to the hospital with a history of SOB and dyspnea. Patient was recently treated for a pseudomonal bactermeia and pneumonia and was treated at [facility]. Today the patient was seen at bedside with both of her daughters present. The daughters report that at this time, they understand their mother's current medical conditions as they have been taking care of her with them for the last 2 years. They talk about how the patient has been in and out of the hospital throughout the past years due to fluid overload, and that each time the patient was able to return to baseline with aggressive dialysis. At this time, they want to continue to try to treat their mother with dialysis, as they report she had been alert and oriented 2 days ago. They also had concerns that some of the patient's decompensation may be due to inaccurate dialysis settings/protein amounts. The patient does open her eyes to some verbal stimulation. CC: Alaina Ornelas MD - Time Spent with Patient Time: Total time spent is greater than 50% in coordination of care (as documented) at patient's floor/unit and/or counseling patient: Time with patient: 45 minutes Past Med Surg Social Fam HX - Past Medical History Medical history: atrial fibrillation, cancer, CHF, COPD, CVA, diabetes, dialysis, hyperlipidemia, hypertension, myocardial infarction, renal disease Additional medical history: right breast Psychiatric history: anxiety, depression - Past Surgical History Surgical History: appendectomy, breast surgery, cholecystectomy, colectomy, hysterectomy, other Additional surgical history: trach. peg tube removed - Social History Smoking Status: Former smoker Smokeless Tobacco Status: No Alcohol use: none Drug use: none - Family History Mother Family Member Ethnicity: Non- Living Status: Hx Family Cardiac Disorders: No Hx Family Respiratory Disorders: No Hx Family Cancer: Yes (colon) Hx Family GI Disorders: No Hx Family Endocrine Disorder: No Hx Family Neuromuscular Disorders: No Hx Family Neurologic Disorders: No Hx Family HEENT Disorders: No Hx Family Autoimmune Disorders: No Father Living Status: Hx Family Cardiac Disorders: No Hx Family Respiratory Disorders: No Hx Family Cancer: Yes Hx Family GI Disorders: Yes Hx Family Endocrine Disorder: Yes (diabetic) Hx Family Neuromuscular Disorders: No Hx Family Neurologic Disorders: No Hx Family HEENT Disorders: No Hx Family Autoimmune Disorders: No Medications and Allergies Ipratropium/Albuterol Neb [Duoneb] 3 ml IH Q6HR PRN 08/22/16 [History] Ascorbate Calcium [Vitamin C] 500 mg PO DAILY 01/31/17 [History] Atorvastatin Calcium [Lipitor] 20 mg PO HS 01/31/17 [History] Guaifenesin [Mucinex] 600 mg PO BID 01/31/17 [History] Insulin LISPRO [HumaLOG] 0 - 10 units SQ TIDAC 01/31/17 [History] LORazepam [Ativan] 0.5 mg PO TID PRN 01/31/17 [History] Albuterol Sulfate [Proventil Hfa] 2 puff IH Q2H PRN 07/06/17 [History] Darbepoetin [Aranesp] 80 mcg IV Q2W 07/06/17 [History] Albuterol Neb [Proventil Neb] 2.5 mg IH Q6H PRN 07/19/17 [History] Pantoprazole Sodium [Protonix] 40 mg PO BID 07/19/17 [History] Renal Vitamin [Renal Caps Softgel] 1 mg PO 1500 07/19/17 [History] Budesonide/Formoterol 160/4.5 [Symbicort 160/4.5] 2 puff IH BIDR 03/07/18 [History] Calcitriol 0.5 mcg PO MOWEFR 03/07/18 [History] Insulin Degludec [Tresiba Flextouch U-100] 12 unit SQ DAILY 03/07/18 [History] Metoprolol [Lopressor] 12.5 mg PO BID MDD HOLD SYSTOLIC <100 PULSE<60 03/07/18 [History] Amiodarone [Cordarone] 200 mg PO DAILY 09/04/18 [History] Buspirone HCl [Buspar] 15 mg PO BID 09/04/18 [History] Lanthanum Carbonate [Fosrenol] 1,000 mg PO TIDWM 09/04/18 [History] Venlafaxine [Effexor] 37.5 mg PO DAILY 09/04/18 [History] Diclofenac Sodium [Voltaren] 1 appl TP QID 10/25/18 [History] Sennosides [Senna] 8.6 mg PO DAILY PRN 10/25/18 [History] Apixaban [Eliquis] 2.5 mg PO DAILY 12/03/18 [History] Acetaminophen [Tylenol] 650 mg PO 2-3XD 01/18/19 [History] Acetaminophen with Codeine [Acetaminophen-Cod #4 Tablet] 1 tab PO Q6H PRN 01/18/19 [History] HYDROcodone/Acet 5/325 mg [Benton 5-325 mg] 1 tab PO BID PRN 01/18/19 [History] predniSONE [PredniSONE] 7 mg PO DAILY 01/18/19 [History] Allergy/AdvReac Type Severity Reaction Status Date / Time aspirin [ASA] Allergy Swelling Verified 10/26/18 13:34 of Lip/Tongue/Throat NSAIDS (Non-Steroidal Allergy Swelling Verified 10/26/18 13:34 Anti-Inflamma of Lip/Tongue/Throat Penicillins Allergy Swelling Verified 10/26/18 13:34 of Lip/Tongue/Throat azithromycin AdvReac Fever Verified 10/26/18 13:34 iron AdvReac Unknown Verified 10/26/18 13:34 ROS unobtainable: due to mental status Palliative Care-Exam - Constitutional Vitals: Temp Pulse Resp BP Pulse Ox 100.0 F H 87 18 81/42 97 01/21/19 07:55 01/21/19 07:55 01/21/19 07:55 01/21/19 07:55 01/21/19 09:10 General appearance: Present: average body habitus - Head Head Exam: Present: atraumatic, normocephalic - Eye Eye exam: Present: normal appearance - Neck Additional comments: chronic trach was apparent on neck, attached to ventilator - Respiratory Additional comments: Coarse breath sounds bilaterally. Patient was currently connected to ventilator through her trach. - Cardiovascular Cardiovascular exam: Present: RRR, +S1, +S2 - GI/Abdominal Exam GI/Abdominal exam: Present: normal bowel sounds, soft. Absent: tenderness - Extremities Exam Extremities exam: Present: normal inspection - Neurological Exam Neurological exam: Present: altered Additional comments: opened eyes to some verbal and physical stimulation - Skin Additional comments: multiple areas of echymosis noted on all 4 extremities. Internal Medicine - CN: Reslt - Labs CBC & Chem 7: 01/21/19 06:47 01/21/19 06:47 Labs: Short CBC 01/21/19 Range/Units 06:47 WBC 20.5 H (4.3-11.1) K/mcL Hgb 10.4 L (11.5-15.4) g/dL Hct 35.4 (35.3-44.9) % Plt Count 212 (140-400) K/mcL BMP 01/21/19 06:47 Sodium 131 L Potassium 3.4 L Chloride 96 L Carbon Dioxide 24 BUN 33 H Creatinine 2.75 H Glucose 259 H Calcium 9.3 - ABG Interpretation ABG results: ABG ABG pH 7.44 pH Units (7.32-7.45) 01/20/19 05:48 ABG pCO2 40 mmHg (35-45) 01/20/19 05:48 ABG pO2 102 mmHg (85-104) 01/20/19 05:48 ABG O2 Saturation 98 % (95-98) 01/20/19 05:48 PT/INR, D-dimer PT 14.9 Seconds (9.4-12.1) H 01/18/19 14:06 Consult Discharge Plan - Plan Referrals: Jose,Therese Mccormick CNP [Primary Care Provider] - (Therese Garcia does home visits so the family will have to call and make a follow up with her when patient is discharged) Palliative Quality Palliative Quality: Screen for Code Status: Yes, Screen for Goals of Care: Yes, Screen for Pain: Yes, Screen for Nausea/Vomitting: NA Code Status: 01/18/19 17:33 Resuscitation Status: Active [RES] Routine Comment: Resuscitation Status: [id number] 01/21/19 10:05 Resuscitation Status: Active [RES] Routine Comment: Resuscitation Status: DNR-Comfort Care Palliative Scale - Palliative Performance Scale How ambulatory is this patient?: Mainly in bed What is patient's level of activity and evidence of disease?: Unable to do any work, Extensive disease How much self-care assistance does patient require?: Mainly assistance How much oral intake does the patient have?: Normal or reduced What is this patient's level of consciousness?: Full or drowsy with or without confusion Palliative Performance Score: 40 % <Valeria Chavez - Last Filed: 01/21/19 16:09> Date of Encounter: 01/21/19 Palliative-CN HPI - Data of Consult Requesting Physician: Alaina Ornelas MD Primary Care Provider: Therese Garcia CNP - Consult Narrative History of present illness: Ms. Parks is a 78 year old female CC: Alaina Ornelas MD - Time Spent with Patient Time: Total time spent is greater than 50% in coordination of care (as documented) at patient's floor/unit and/or counseling patient: Palliative Care-Exam - Constitutional Vitals: Temp Pulse Resp BP Pulse Ox 98.2 F 82 22 94/43 100 01/21/19 12:09 01/21/19 12:09 01/21/19 12:21 01/21/19 14:25 01/21/19 12:21 Internal Medicine - CN: Reslt - Labs CBC & Chem 7: 01/21/19 06:47 01/21/19 06:47 Labs: Short CBC 01/21/19 Range/Units 06:47 WBC 20.5 H (4.3-11.1) K/mcL Hgb 10.4 L (11.5-15.4) g/dL Hct 35.4 (35.3-44.9) % Plt Count 212 (140-400) K/mcL BMP 01/21/19 06:47 Sodium 131 L Potassium 3.4 L Chloride 96 L Carbon Dioxide 24 BUN 33 H Creatinine 2.75 H Glucose 259 H Calcium 9.3 - ABG Interpretation ABG results: ABG ABG pH 7.44 pH Units (7.32-7.45) 01/20/19 05:48 ABG pCO2 40 mmHg (35-45) 01/20/19 05:48 ABG pO2 102 mmHg (85-104) 01/20/19 05:48 ABG O2 Saturation 98 % (95-98) 01/20/19 05:48 PT/INR, D-dimer PT 14.9 Seconds (9.4-12.1) H 01/18/19 14:06 - Impressions Impressions Chest CT 01/21/19 12:08 IMPRESSION: Moderate right upper lobe pneumonia. Mild early additional pneumonia present more inferiorly in the right upper lobe, the right middle lobe, and left upper lobe. Dense opacity in both lower lobes with mucous plugging which may represent a combination of atelectasis and pneumonia. No evident pleural effusion or significant abnormal pulmonary vascular congestion. Mild bronchial wall thickening which may indicate mild chronic bronchitis. Mild to moderate bullous changes in the upper lungs. New cavitary lesion in the right apex with thick wall and tiny air-fluid level indicating acute infection. Stable pulmonary nodules in the right upper lobe consistent with old granulomatous disease. D/ / Edgard Gayle MD / Edgard Gayle MD Interpreting Provider: Edgard Gayle MD - Attending Attestation I examined this patient and my medical decision-making was reviewed with the Resident Physician. I agree with the documented findings, disposition and treatment plan as described except to the extent set forth below. 78 year old female with a past medical history of a-fib, cancer, CHF, COPD, CVA, DM, ESRD-on dialysis, chronic trach, [place], presenting to the hospital with a history of SOB and dyspnea. Was admitted for pneumonia vs pulmonary edema, put on trach to vent. Pt's SOB appears to be improved after HD, however today she started spiking fever, and leukocytosis. In view of poor prognosis, palliative c are consulted for GOC discussion. At the time of exam, pt was drowsy, opened eyes transiently, but did not answer any questions. Daughters Beatriz and Tova at the bedside. 30 minutes discussion with daughters, along with Dr. Man. Discussed current medical condition, trajectory of illness, treatment options and overall poor prognosis. Daughter stated they "see the big picture", and are aware that pt is not going to recover, however, at her baseline pt still speaks and seems to enjoy life at home. Expressed the concern that pt is not responding well to the antibiotics, as evidenced by worsening labs and fever. Also pt's BP is low and concerned about her ability to withstand dialysis. Family demonstrated understanding. However, they want to continue attempting to treat her aggressively, as long as she does not appear to be suffering. Family's goal is for pt to return to her previous baseline and be discharged home. Discussed with primary hospitalist Dr. Ornelas, agree with ID consult, continue curent level of care. Pt is DNRCCA and DNI. Palliative care will continue to follow. Palliative Quality Code Status: 01/18/19 17:33 Resuscitation Status: Active [RES] Routine Comment: Resuscitation Status: [id number] 01/21/19 10:05 Resuscitation Status: Active [RES] Routine Comment: Resuscitation Status: DNR-Comfort Care 01/21/19 11:45 Resuscitation Status: Active [RES] Routine Comment: Resuscitation Status: DNR-Comfort Care-Arrest 01/21/19 11:47 DNR [Resuscitation Status: Active] [RES] Routine Comment: Resuscitation Status: DNR-Comfort Care-Arrest
[2019-01-21] MEDS: Hydrocortisone Sodium Succ 100 MG/2 ML VIAL IVP SCH ×3 (12:17→23:42)
--- NOTE | 2019-01-21 12:26 | Electrocardiograph Report ---
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
--- NOTE | 2019-01-21 12:56 | Nephrology Progress Note ---
Date of Encounter: 01/21/19 Time of Encounter: 12:53 - Assessment and Plan (1) ESRD (end stage renal disease) on dialysis Current Visit: No Status: Chronic HD MWF in [place] with Dr. Peraza HD aborted due to hypotension, after 25 grams Albumin. Midodrine increased to 10 mg PO TID. Consider holding Metropolol. Will attempt HD again tomorrow. Renal vitamins. Renal dose medications. Renal diet. Additional dialysis and ultrafiltration as needed. (2) Anemia Current Visit: No Status: Chronic Transfusion per the primary team. Hgb is 10.4, stable and at goal. Qualifiers: Anemia type: unspecified type Qualified Code(s): D64.9 - Anemia, unspecified (3) Diabetes mellitus Current Visit: No Status: Chronic Per primary. 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 Qualifiers: Hypertension type: essential hypertension Qualified Code(s): I10 - Essential (primary) hypertension (5) Acute and chronic respiratory failure Current Visit: Yes Status: Acute Patient has a trach and is currently on the vent. Management per the primary team. Qualifiers: Respiratory failure complication: hypoxia and hypercapnia Qualified Code(s): J96.21 - Acute and chronic respiratory failure with hypoxia; J96.22 - Acute and chronic respiratory failure with hypercapnia Subjective Principal diagnosis: esrd Interval history: Patient seen and examined and hemodialysis, was stopped due to hypotension. ROS unobtainable at this time, however the daughter's did answer questions at bedside. Objective - Vital Signs Vital signs: Vital Signs Temp Pulse Resp BP Pulse Ox 01/21/19 12:21 22 98/59 100 01/21/19 12:09 98.2 F 82 18 98/59 100 01/21/19 11:35 20 100 01/21/19 10:15 20 98 01/21/19 09:10 97 01/21/19 07:55 100.0 F H 87 18 81/42 94 01/21/19 06:19 101.0 F H 91 18 94/46 94 01/21/19 03:35 21 83/45 94 01/21/19 02:11 80 77/40 01/21/19 02:03 88/45 01/21/19 00:00 99.9 F H 83 18 71/46 16 01/20/19 22:11 92 01/20/19 21:47 21 81/47 96 01/20/19 19:05 99.4 F 88 22 138/52 89 01/20/19 16:12 98.7 F 80 21 85/46 100 01/20/19 16:05 20 86/48 94 Intake and Output 01/20/19 01/21/19 01/21/19 23:59 07:59 15:59 Intake Total 250 / 250 Balance 250 / 250 Intake: IV Fluids 250 / 250 0.9 % Sodium Chloride 250 ML @ 250 / 250 937.5 mls/hr IVC .Q16M PRN Rx#: [id number] Other: Meal Dinner Percent of Meal Consumed 0% Stool Size Moderate Stool Consistency liquid Stool Color Brown # Bowel Movement Diapers 1 Blood Glucose* [phone] - General Appearance General appearance: Present: chronically ill, frail EENT: Present: ATNC, hearing intact, vision intact Neck: Present: supple Respiratory: Present: rhonchi Cardiology: Present: edema (Trace bilat lower extremity edema.), normal S1, normal S2 Dialysis Vascular Access: Venous Catheter (DRSG C/D/I) Gastrointestinal: Present: normoactive bowel sounds, no tenderness, no guarding Integumentary: Present: no rash, warm and dry Neurologic: Present: alert and oriented x3 Musculoskeletal: Present: no deformities, no erythema Psychiatric: Present: mood/affect appropriate, cooperative - Lab 01/21/19 06:47 01/21/19 06:47 Most recent lab results 01/21/19 06:47 Calcium 9.3 Consult Discharge Plan - Plan Referrals: Therese Garcia SYSTEMS ARCHITECTURE ANALYST [Primary Care Provider] - (Therese Garcia does home visits so the family will have to call and make a follow up with her when patient is discharged)
--- NOTE | 2019-01-21 13:39 | Internal Med Progress Note ---
Hospitalist Progress Note - Encounter Date of Encounter: 01/21/19 Time of Encounter: 13:20 - Subjective Interval History: Patient seen and examined. No acute events overnight. Patient is slightly lethargic this am. She will wake when called but will not answer questions. She is still on the ventilator. BP has been low overnight. Patient did recieve a sm all bolus and was started on midodrine. Discussed with family at length consideration for hospice and comfort care given patient's gradual decline over the last 2 years and frequent rehospitalizations. They are still deciding. Patient is a [facility]NI-Comfort Care-Arrest - Exam Vitals: Temp Pulse Resp BP Pulse Ox 98.2 F 82 22 98/59 100 01/21/19 12:09 01/21/19 12:09 01/21/19 12:21 01/21/19 12:21 01/21/19 12:21 Exam: GENERAL APPEARANCE: Well developed, well nourished, alert and cooperative, and appears to be in no acute distress. HEENT: Normocephalic/atraumatic, PERRLA. NECK: Supple, nontender without lymphadenopathy. CARDIOVASCULAR: Normal S1, S2; regular rate and rhythm; no murmurs. RESPIRATORY: Coarse breath sounds; unable to auscultate wheezing or crackles; trach in place with vent attached ABDOMEN: Soft, nondistended, nontender; bowel sounds present. MUSKULOSKELETAL: No limitations in range of motion. EXTREMITIES: 1+ pitting edema b/l NEUROLOGICAL: No focal neurological deficits. SKIN: Skin normal color, texture and turgor with no lesions or eruptions. PSYCHIATRIC: Judgment and reasoning; no hallucinations; normal affect. - Assessment and Plan (1) Sepsis Current Visit: Yes Status: Acute Assessment and Plan: Patient presenting with acute respiratory failure and meeting criteria for s epsis with tachycardia, hypoxia, leukocytosis. Patient recently treated for PNA and bacteremia for pseudomonas with meropenam Blood pressure stable Patient was unable to complete dialysis day before admission Repeat Lactic acid normal Leukocytosis worsening again Unable to take patient off ventilator Plan: Antibiotics adjusted to vanocmycin and meropenam for stronger coverage; renally dose per pharmacy Pulmonology on board Consider ID pending blood cultures F/u blood cultures F/u urinalysis (2) Ventilator associated pneumonia Current Visit: Yes Status: Acute Assessment and Plan: Patient recently treated for pseudomonoas pneumonia and bacteremia and [facility] with meropenam per family; patient is on prophylactic vancomycin with dialyss Plan: see above (3) Acute and chronic respiratory failure ([id number]) Current Visit: No Status: Acute Assessment and Plan: Patient with chronic trach requiring ventilation at night and 4L NC during day Worsening hypoxia requriing 6L NC to maintain 92% sat on admission Patient looks better but still requiring ventilator Plan: see above PRN breathing treatments continuous pulse oximtery Consult RT Pulmonology on board for management of ventilator Palliative care consulted (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 (5) Afib Current Visit: No Status: Chronic Assessment and Plan: Plan: telemetry; continue eliquis and home meds (6) CHF (congestive heart failure) Current Visit: No Status: Chronic Assessment and Plan: Patient with history of systolic CHF Did appear volume overloaded yesterday and did seem to improved after initial dialysis Patient still retaining fluid BP low overnight requiring addition of midodrine; nephro unable to dialyse today due to low BP Explained to family that patient will continue to volume overload and given labile BP, dialysis may not always be a viable option Plan: monitor volume status; continue home meds Nephro on board (7) CKD (chronic kidney disease) stage V requiring chronic dialysis Current Visit: No Status: Chronic Assessment and Plan: Patient with ESRD on dialysis M,W,F Did not complete dialysis day of admission Plan: Nephro consulted; monitor renal function (8) COPD (chronic obstructive pulmonary disease) Current Visit: No Status: Chronic Assessment and Plan: Patient with history of COPD on chronic O2 via trach Plan: continue PRN breathing treatments Pulmonology on board (9) Hypokalemia Current Visit: Yes Status: Resolved Assessment and Plan: K 3.3 on admission -replace and monitor (10) Diabetes mellitus Current Visit: No Status: Chronic Assessment and Plan: Blood sugars stable on admission -sliding scale insulin - Summary of Assessment and Plan Summary of Assessment and Plan: Patient has overall very poor prognosis and his risk of morbidity and mortality. Continue to discuss with family and help formulate goals of care. - Time Spent with Patient Total time spent is greater than 50% in coordination of care (as documented) at patient's floor/unit and/or counseling patient: 45 minutes Plan of Care Discussed with: family Internal Medicine: Result - Labs CBC & Chem 7: 01/21/19 06:47 01/21/19 06:47 Labs: Short CBC 01/21/19 Range/Units 06:47 WBC 20.5 H (4.3-11.1) K/mcL Hgb 10.4 L (11.5-15.4) g/dL Hct 35.4 (35.3-44.9) % Plt Count 212 (140-400) K/mcL BMP 01/21/19 06:47 Sodium 131 L Potassium 3.4 L Chloride 96 L Carbon Dioxide 24 BUN 33 H Creatinine 2.75 H Glucose 259 H Calcium 9.3 - ABG Interpretation ABG results: ABG ABG pH 7.44 pH Units (7.32-7.45) 01/20/19 05:48 ABG pCO2 40 mmHg (35-45) 01/20/19 05:48 ABG pO2 102 mmHg (85-104) 01/20/19 05:48 ABG O2 Saturation 98 % (95-98) 01/20/19 05:48 PT/INR, D-dimer PT 14.9 Seconds (9.4-12.1) H 01/18/19 14:06 - Impressions Impressions Chest CT 01/21/19 12:08 IMPRESSION: Moderate right upper lobe pneumonia. Mild early additional pneumonia present more inferiorly in the right upper lobe, the right middle lobe, and left upper lobe. Dense opacity in both lower lobes with mucous plugging which may represent a combination of atelectasis and pneumonia. No evident pleural effusion or significant abnormal pulmonary vascular congestion. Mild bronchial wall thickening which may indicate mild chronic bronchitis. Mild to moderate bullous changes in the upper lungs. New cavitary lesion in the right apex with thick wall and tiny air-fluid level indicating acute infection. Stable pulmonary nodules in the right upper lobe consistent with old granulomatous disease. D/ / Edgard Gayle MD / Edgard Gayle MD Interpreting Provider: Edgard Gayle MD Consult Discharge Plan - Plan Referrals: Therese Garcia AEROGRAPHER [Primary Care Provider] - (Therese Garcia does home visits so the family will have to call and make a follow up with her when patient is discharged) (1) Sepsis Qualifiers: Sepsis type: sepsis due to unspecified organism Sepsis acute organ dysfunction status: with acute organ dysfunction Severe sepsis acute organ dysfunction type: acute respiratory failure Acute respiratory failure type: wit h hypoxia Severe sepsis shock status: without septic shock Qualified Code(s): A41.9 - Sepsis, unspecified organism; R65.20 - Severe sepsis without septic shock; J96.01 - Acute respiratory failure with hypoxia (3) Acute and chronic respiratory failure ([id number]) Qualifiers: Respiratory failure complication: hypoxia Qualified Code(s): J96.21 - Acute and chronic respiratory failure with hypoxia (5) Afib Qualifiers: Atrial fibrillation type: chronic Qualified Code(s): I48.2 - Chronic atrial fibrillation (6) CHF (congestive heart failure) Qualifiers: Heart failure type: diastolic Heart failure chronicity: unspecified Qualified Code(s): I50.30 - Unspecified diastolic (congestive) heart failure (8) COPD (chronic obstructive pulmonary disease) Qualifiers: COPD type: unspecified COPD Qualified Code(s): J44.9 - Chronic obstructive pulmonary disease, unspecified (10) Diabetes mellitus Qualifiers: Diabetes mellitus type: type 2 Diabetes mellitus snf insulin use: with 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
--- NOTE | 2019-01-21 15:44 | Event Note ---
Date of Encounter: 01/21/19 Time of Encounter: 15:[address] scan and discuss it directly with the family (2 adult daughters) in fact, I showed them the images she has a larger right upper lobe cavitary lesion and will need bronchoscopy for further evaluation given her history of multidrug resistant organisms as well as fungal infections.A bronchoscopy is recommended. The procedure , risks, benefits, complications, and expected outcomes have been reviewed. Benefits of diagnosis, as well as risks to include bleeding, infection, pneumothorax which may require surgical intervention, and in a small population. The patient's family/POA is aware that sometimes test is nondiagnostic. Discussed with patient/s POA and they agree to proceed.
[2019-01-21] MEDS: Renal Vitamin 1 CAP CAPSULE PO SCH (16:06)
[2019-01-21] MEDS: Meropenem 1,000 MG in 0.9 % Sodium Chloride Mini Bag 100 ML IVPB SCH (16:06)
--- NOTE | 2019-01-21 21:17 | Infectious Disease Consult ---
Infectious Disease-Consult - Encounter Date/Time Date of Encounter: 01/21/19 Time of Encounter: 16:00 - Data of Consult Patient: known to practice within the last 3 years Reason for consult: pneumonia Consult date: 01/21/19 Requesting Physician: Alaina Ornelas MD Primary Care Provider: Therese Garcia CNP - [facility] HPI: Patient is a 78 year old woman well known to my service who presented to [place] on 01/18 for SOB. We are consulted on 01/21 for pneumonia and antibiotics recommendations. Briefly, has an extensive past medical history mentioned below including end stage renal disease on hemodialysis Monday, Monday, and Monday via right upper chest permacath, CHF, diabetes, chronic respiratory failure status post tracheostomy, COPD on chronic steroid use, hyperlipidemia, hypertension, LA, and breast cancer status post mastectomywho was last seen by us on 12/06/18 for respiratory failure due to HCAP and sepsis presented to [facility] with shorntess of breath and increase sputum production and altered mentation for a few days prior to admission. When patient was here back in December she had a sputum culture that was positive for PSEA MDRO. Patient's family at that time requested patient gets transferred to [facility]. Per family, patient was treated other there with 2 weeks of meropenem and vancomycin and was discharged home to take 2 more weeks of meropenem and 4 weeks of vancomycin after removal of dialysis cath that appears to have been infected. Family tells me "her breathing was significantly better" and she had no ronchi at all and her lungs were clear until about one week after stopping antibitics (3 weeks post discharge) patient started having more nochi and more shortness of breath and more sputum was suchtioned . Family decided to bring her to the ED for evaluation. Family was also complaining of pt having diarrhea. Since admission, Patient had fever, tachycardia and tachypnea. labs revealed leukocytosis with neutrophilic predominance without bandemia. chemistry revealed the ESRD on HD. GI panel was negative. Blood cultures 01/18 no [address] to date. Ct chest revealed Moderate right upper lobe pneumonia. Mild early additional pneumonia present more inferiorly in the right upper lobe, the right middle lobe, and left upper lobe. Dense opacity in both lower lobes with mucous plugging which may represent a combination of atelectasis and pneumonia. No evident pleural effusion or significant abnormal pulmonary vascular congestion. Mild bronchial wall thickening which may indicate mild chronic bronchitis. Mild to moderate bullous changes in the upper lungs. New cavitary lesion in the right apex with thick wall and tiny air-fluid level indicating acute infection. Stable pulmonary nodules in the right upper lobe consistent with old granulomatous disease. Patient was started on vancomycin and meropenem and we were asked to evaluate the patient and make further reocmmendations Patient currently laying in bed. opens eyes to verbal stimuli and responds with yes and no. She recognized her daughters and their names who both are at bedside. ROS is otherwise limited. Patient not eating much. PE is significant for oral thrush, coarse breath sounds universally. abdominal hernia and many skin tears all over hear upper and lower extremities which are chronic. She continues to have diarrhea as per family. - ROS Review of Systems: denies any pain but ROS is limited. - Results CBC & Chem 7: 01/21/19 06:47 01/21/19 06:47 - Exam Vitals: Temp Pulse Resp BP Pulse Ox 99.3 F 87 18 95/45 96 01/21/19 20:29 01/21/19 20:29 01/21/19 20:29 01/21/19 20:29 01/21/19 20:29 Exam: Head: Atraumatic, normal inspection, normocephalic. Eye: EOMI, PERRLA, no scleral icterus noted. ENT: Mucous membranes moist. positive oral thrush Neck: Normal inspection, no meningismus. Tracheostomy midline on vent support Respiratory: coarse breath sounds audible both lung schwarz. chest expanding symmetrically Cardiovascular: Regular rate and rhythm, S1 and S2 audible. No murmurs, rubs, or gallops. GI: Soft, nondistended, normal bowel sounds. ventral hernia noted Extremities: No joint swelling, pedal edema, or tenderness noted. Neurological: Alert, opens eyes spontaneously. follows simple command. oriented to person Psychiatric: normal affect, normal mood. Skin:Multiple areas of ecchymosis and skin tears noted to the bilateral upper and bilateral lower extremities. Bilateral lower extremity dressings are clean, dry, and intact Ipratropium/Albuterol Neb [Duoneb] 3 ml IH Q6HR PRN 08/22/16 [History] Ascorbate Calcium [Vitamin C] 500 mg PO DAILY 01/31/17 [History] Atorvastatin Calcium [Lipitor] 20 mg PO HS 01/31/17 [History] Guaifenesin [Mucinex] 600 mg PO BID 01/31/17 [History] Insulin LISPRO [HumaLOG] 0 - 10 units SQ TIDAC 01/31/17 [History] LORazepam [Ativan] 0.5 mg PO TID PRN 01/31/17 [History] Albuterol Sulfate [Proventil Hfa] 2 puff IH Q2H PRN 07/06/17 [History] Darbepoetin [Aranesp] 80 mcg IV Q2W 07/06/17 [History] Albuterol Neb [Proventil Neb] 2.5 mg IH Q6H PRN 07/19/17 [History] Pantoprazole Sodium [Protonix] 40 mg PO BID 07/19/17 [History] Renal Vitamin [Renal Caps Softgel] 1 mg PO 1500 07/19/17 [History] Budesonide/Formoterol 160/4.5 [Symbicort 160/4.5] 2 puff IH BIDR 03/07/18 [History] Calcitriol 0.5 mcg PO MOWEFR 03/07/18 [History] Insulin Degludec [Tresiba Flextouch U-100] 12 unit SQ DAILY 03/07/18 [History] Metoprolol [Lopressor] 12.5 mg PO BID MDD HOLD SYSTOLIC <100 PULSE<60 03/07/18 [History] Amiodarone [Cordarone] 200 mg PO DAILY 09/04/18 [History] Buspirone HCl [Buspar] 15 mg PO BID 09/04/18 [History] Lanthanum Carbonate [Fosrenol] 1,000 mg PO TIDWM 09/04/18 [History] Venlafaxine [Effexor] 37.5 mg PO DAILY 09/04/18 [History] Diclofenac Sodium [Voltaren] 1 appl TP QID 10/25/18 [History] Sennosides [Senna] 8.6 mg PO DAILY PRN 10/25/18 [History] Apixaban [Eliquis] 2.5 mg PO DAILY 12/03/18 [History] Acetaminophen [Tylenol] 650 mg PO 2-3XD 01/18/19 [History] Acetaminophen with Codeine [Acetaminophen-Cod #4 Tablet] 1 tab PO Q6H PRN 01/18/19 [History] HYDROcodone/Acet 5/325 mg [[place] 5-325 mg] 1 tab PO BID PRN 01/18/19 [History] predniSONE [PredniSONE] 7 mg PO DAILY 01/18/19 [History] Allergy/AdvReac Type Severity Reaction Status Date / Time aspirin [ASA] Allergy Swelling Verified 10/26/18 13:34 of Lip/Tongue/Throat NSAIDS (Non-Steroidal Allergy Swelling Verified 10/26/18 13:34 Anti-Inflamma of Lip/Tongue/Throat Penicillins Allergy Swelling Verified 10/26/18 13:34 of Lip/Tongue/Throat azithromycin AdvReac Fever Verified 10/26/18 13:34 iron AdvReac Unknown Verified 10/26/18 13:34 - Assessment and Plan (1) Sepsis Current Visit: No Status: Acute had 3 SIRS criteria on 01/21 likely due to pneumonia Qualifiers: Sepsis type: Streptococcus, other Sepsis acute organ dysfunction status: unspecified Qualified Code(s): A40.8 - Other streptococcal sepsis SNOMED Code(s): 50507047 (2) HCAP (healthcare-associated pneumonia) Current Visit: No Status: Acute previous organism is PSEA R: cefepime, levofloxacin Treated for 4 weeks with IV meropenem from 12/06-01/04 symptoms returned 1 week after stopping antibiotics CT concerning for multifocal pneumonia with new cavitary lesion in the right apex with air fluid level blood cultures negative to date SNOMED Code(s): 433900315, 028820515 (3) Cavitary lesion of lung Current Visit: No Status: Acute etiology not clear pulmonary abscess vs fungal? she did have aspergillus grow from sputum in September 2018 appreciate pulmonary input SNOMED Code(s): 820915923 (4) CKD (chronic kidney disease) stage V requiring chronic dialysis Current Visit: No Status: Chronic on dialysis MWF previous dialysis cath was infected with enterococcus s/p removal and placement of another permacath after negative cultures x 5 days per family, patient was supposed to be on vanc after dialsysi through next week (3 more doses) SNOMED Code(s): 955663086 (5) Diarrhea Current Visit: No Status: Chronic etiology not clear likely due to use of antibioitcs C diff and stool GI panel negative Qualifiers: Diarrhea type: unspecified type Qualified Code(s): R19.7 - Diarrhea, unspecified SNOMED Code(s): 08610006 (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 Current Visit: No Status: Resolved s/p mastectomy SNOMED Code(s): 942615963 (7) CHF (congestive heart failure) Current Visit: No Status: Chronic Qualifiers: Heart failure type: diastolic Heart failure chronicity: unspecified Qualified Code(s): I50.30 - Unspecified diastolic (congestive) heart failure SNOMED Code(s): 60852089 (8) COPD (chronic obstructive pulmonary disease) Current Visit: No Status: Chronic Qualifiers: COPD type: unspecified COPD Qualified Code(s): J44.9 - Chronic obstructive pulmonary disease, unspecified SNOMED Code(s): 03834410 (9) Insulin dependent type 2 diabetes mellitus Current Visit: No Status: Chronic SNOMED Code(s): 897051981 (10) Chronic respiratory failure Current Visit: Yes Status: Acute SNOMED Code(s): 01917412 - Recommendations Recommendations: Patient very complicated with mulitple comorbidities agree with meropenem and vancomycin for now please obtain sputum gram stain and culture will d/w pulmonary to see if they want us to pursue fungal infection vs atypical mycobacteria vs other I'm not sure if we diagnose patient, she would tolerate antifungal treatment await cultures to finalize monitor labs and for drug toxicity prognosis guarded Past Med Surg Social Fam HX - Past Medical History Medical history: atrial fibrillation, cancer, CHF, COPD, CVA, diabetes, dialysis, hyperlipidemia, hypertension, myocardial infarction, renal disease Additional medical history: right breast Psychiatric history: anxiety, depression - Past Surgical History Surgical History: appendectomy, breast surgery, cholecystectomy, colectomy, hysterectomy, other Additional surgical history: trach. peg tube removed - Social History Smoking Status: Former smoker Smokeless Tobacco Status: No Alcohol use: none Drug use: none - Family History Mother Family Member Ethnicity: Non- Living Status: Hx Family Cardiac Disorders: No Hx Family Respiratory Disorders: No Hx Family Cancer: Yes (colon) Hx Family GI Disorders: No Hx Family Endocrine Disorder: No Hx Family Neuromuscular Disorders: No Hx Family Neurologic Disorders: No Hx Family HEENT Disorders: No Hx Family Autoimmune Disorders: No Father Living Status: Hx Family Cardiac Disorders: No Hx Family Respiratory Disorders: No Hx Family Cancer: Yes Hx Family GI Disorders: Yes Hx Family Endocrine Disorder: Yes (diabetic) Hx Family Neuromuscular Disorders: No Hx Family Neurologic Disorders: No Hx Family HEENT Disorders: No Hx Family Autoimmune Disorders: No Consult Discharge Plan - Plan Referrals: Therese Garcia CNP [Primary Care Provider] - (Therese Garcia does home visits so the family will have to call and make a follow up with her when patient is discharged)
[2019-01-21 23:36] LABS: Adenovirus Not Detected (Not Detect); Bordetella Pertussis Not Detected (Not Detect); Chlamydophila pneumoniae Not Detected (Not Detect); Coronavirus 229E Not Detected (Not Detect); Coronavirus HKU1 Not Detected (Not Detect); Coronavirus NL63 Not Detected (Not Detect); Coronavirus OC43 Not Detected (Not Detect); Human Metapneumovirus Not Detected (Not Detect); Human Rhinovirus/Enterovirus Not Detected (Not Detect); Influenza A Subtype 2009 H1 Not Detected (Not Detect); Influenza A Untypeable Not Detected (Not Detect); Influenza B Not Detected (Not Detect); Mycoplasma pneumoniae Not Detected (Not Detect); Parainfluenza Virus 1 Not Detected (Not Detect); Parainfluenza Virus 2 Not Detected (Not Detect); Parainfluenza Virus 3 Not Detected (Not Detect); Parainfluenza Virus 4 Not Detected (Not Detect); Respiratory Syncytial Virus Not Detected (Not Detect)
[2019-01-22] MEDS ORDERED: Acetaminophen IV 1,000 MG/100 ML INFUS..BTL IVPB ONE (03:36)
[2019-01-22] MEDS: Levalbuterol Neb 1.25 MG/3 ML IH SCH ×4 (04:33→21:50)
[2019-01-22 05:13] LABS: Basophils # 0.1 K/mcL (0.0-0.2); Basophils % 0.3 %; Eosinophils % 0.1 %; Hematocrit 34.5 % (35.3-44.9); Hemoglobin 10.1 g/dL (11.5-15.4); Immature Granulocytes % 3.2 % (0-4); Lymphocytes % 5.4 %; Mean Corpuscular HGB Conc 29.3 g/dL (31.6-35.5); Mean Corpuscular Hemoglobin 27.5 pg (28.0-33.3); Mean Platelet Volume 10.4 fL (9.4-12.4); Monocytes # 0.4 K/mcL (0.0-1.3); Monocytes % 2.1 %; Neutrophils # 16.2 K/mcL (1.6-8.9); Nucleated Red Blood Cells 0.2 /100 WBC (0); Platelet Count 213 K/mcL (140-400); Red Blood Count 3.67 M/mcL (3.82-4.97); Red Cell Distribution Width 20.1 % (11.5-14.5); Segmented Neutrophils % 88.9 %; White Blood Count 18.2 K/mcL (4.3-11.1)
[2019-01-22 05:34] LABS: Calcium 9.3 mg/dL (8.6-10.3); Potassium 3.9 mEq/L (3.5-5.1)
[2019-01-22 05:48] LABS: Thyroid Stimulating Hormone 0.405 mcIU/mL (0.340-5.600)
[2019-01-22] MEDS: Insulin LISPRO 300 UNITS/3 ML VIAL SQ SCH ×4 (06:00→20:33)
[2019-01-22] MEDS: Hydrocortisone Sodium Succ 100 MG/2 ML VIAL IVP SCH ×3 (06:00→17:09)
[2019-01-22] MEDS ORDERED: Lidocaine Viscous Oral Soln 15 ML SOLUTION ONE (07:06)
[2019-01-22] MEDS ORDERED: *HR* FentaNYL (PF) 100 MCG/2 ML VIAL ONE (07:13)
[2019-01-22] MEDS ORDERED: *HR* Midazolam HCl 5 MG/5 ML VIAL IVP ONE ×2 (07:13→07:29)
[2019-01-22] MEDS ORDERED: *HR* FentaNYL (PF) 100 MCG/2 ML VIAL IVP ONE (07:29)
--- NOTE | 2019-01-22 07:29 | Pre-Sedation Evaluation ---
Pre-sedation evaluation - Pre-sedation checklist Date of procedure: 01/22/19 Procedure: Bronchoscopy Recent Vitals: Last Vital Signs Temp 100.6 F H 01/22/19 05:51 Pulse 92 01/22/19 03:26 Resp 22 01/22/19 04:33 BP 110/83 01/22/19 03:26 Pulse Ox 95 01/22/19 04:33 H&P (including ROS) documented in medical record: Yes Previous reaction to sedatives/anesthetics: No Dietary Status: NPO after Midnight Dentition: poor dentition Possible difficult airway: No ASA Classification *see protocol: CLASS IV-Severe systemic disease/constant threat to pt's life
[2019-01-22] MEDS: Ascorbic Acid 500 MG TABLET PO SCH (08:33)
[2019-01-22] MEDS ORDERED: Albumin 25% 25gram/100mL 25 GM/100 ML IV.SOLN IVPB PRN (08:55)
[2019-01-22] MEDS ORDERED: 0.9 % Sodium Chloride 250 ML IVC PRN (08:55)
[2019-01-22] MEDS ORDERED: *HR* Heparin 10,000 UNIT/10 ML VIAL IV PRN (08:55)
[2019-01-22] MEDS ORDERED: Albumin 25% 12.5gm/50mL 25.0 GM/100 ML IV.SOLN ONE ×2 (09:33→10:46)
[2019-01-22] MEDS: *HR* Amiodarone 200 MG TABLET PO SCH (10:06)
--- NOTE | 2019-01-22 10:47 | Pulmonology Progress Note ---
<YukoDarryl W - Last Filed: 01/22/19 14:43> Date of Encounter: 01/22/19 Objective PUL Vital signs: Last Vital Signs Temp 97.8 F 01/22/19 13:45 Pulse 94 01/22/19 07:40 Resp 17 01/22/19 13:45 BP 111/69 01/22/19 13:45 Pulse Ox 95 01/22/19 09:40 Results - Laboratory Findings CBC and BMP: 01/22/19 04:34 01/22/19 04:34 ABG ABG pH 7.44 pH Units (7.32-7.45) 01/20/19 05:48 ABG pCO2 40 mmHg (35-45) 01/20/19 05:48 ABG pO2 102 mmHg (85-104) 01/20/19 05:48 ABG O2 Saturation 98 % (95-98) 01/20/19 05:48 PT/INR, D-dimer PT 14.9 Seconds (9.4-12.1) H 01/18/19 14:06 Abnormal lab findings: Abnormal lab results WBC 18.2 K/mcL (4.3-11.1) H 01/22/19 04:34 RBC 3.67 M/mcL (3.82-4.97) L 01/22/19 04:34 Hgb 10.1 g/dL (11.5-15.4) L 01/22/19 04:34 Hct 34.5 % (35.3-44.9) L 01/22/19 04:34 MCH 27.5 pg (28.0-33.3) L 01/22/19 04:34 MCHC 29.3 g/dL (31.6-35.5) L 01/22/19 04:34 RDW 20.1 % (11.5-14.5) H 01/22/19 04:34 Neutrophils # 16.2 K/mcL (1.6-8.9) H 01/22/19 04:34 Nucleated RBCs/100 WBC 0.2 /100 WBC (0) H 01/22/19 04:34 Hypochromasia Present (Not Present) A 01/20/19 06:54 Anisocytosis 1+ (Not Present) A 01/20/19 06:54 PT 14.9 Seconds (9.4-12.1) H 01/18/19 14:06 ABG Total CO2 28 mEq/L (20-26) H 01/20/19 05:48 VBG HCO3 29 mEq/L (21-27) H 01/18/19 14:17 Sodium 135 mEq/L (136-145) L 01/22/19 04:34 Potassium 3.4 mEq/L (3.5-5.1) L 01/21/19 06:47 Chloride 95 mEq/L (98-107) L 01/22/19 04:34 Carbon Dioxide 19 mEq/L (23-29) L 01/22/19 04:34 BUN 32 mg/dL (8-23) H 01/22/19 04:34 Creatinine 2.82 mg/dL (0.60-1.20) H 01/22/19 04:34 Est GFR ( Amer) 20 (> 60) L 01/22/19 04:34 Est GFR (Non-Af Amer) 16 (> 60) L 01/22/19 04:34 Glucose 319 mg/dL (70-105) H 01/22/19 04:34 POC Glucose 314 mg/dL (70-99) H 01/22/19 05:52 Lactic Acid 2.3 mmol/L (0.5-2.2) H 01/18/19 14:06 Calcium 8.1 mg/dL (8.6-10.3) L 01/19/19 00:12 Alkaline Phosphatase 120 Units/L (34-104) H 01/20/19 06:54 Troponin I 0.05 ng/mL (< 0.04) H* 01/19/19 04:14 B-Natriuretic Peptide 263 pg/mL (Less than 100) H 01/18/19 14:06 Serum Total Protein 6.3 g/dL (6.4-8.9) L 01/20/19 06:54 Albumin 2.9 g/dL (3.5-5.7) L 01/20/19 06:54 Albumin/Globulin Ratio 0.9 (1.1-2.2) L 01/20/19 06:54 Hep Bs Antibody < 3.10 mIU/mL (10.00-) L 01/19/19 12:43 - Microbiology Findings Microbiology Findings: Microbiology, Last 48 Hours 01/22/19 06:08 Respiratory Culture - Preliminary Right Upper Lobe Lung Culture is incubating. - Clinical Findings Intake & Output: Intake & Output 01/21/19 01/22/19 01/22/19 23:59 07:59 15:59 Intake Total 100 / 650 100 / 600 500 / 600 Output Total 0 / 2500 2500 / 2500 Balance 100 / 650 100 / -1900 -2000 / -1900 Consult Discharge Plan - Plan Referrals: Therese Garcia, [facility] [employer] [facility] [Primary Care Provider] - (Therese Garcia does home visits so the family will have to call and make a follow up with her when patient is discharged) - Attending Attestation I examined this patient and my medical decision-making was reviewed with the Resident Physician. I agree with the documented findings, disposition and treatment plan as described except to the extent set forth below. We i ndependently had [id number] contact with the patient Patient seen and examined at bedside Labs, radiology, chart personally reviewed. Impression/Recs: Acute on chronic hypoxic hypercapnic respiratory failure Cavitary lung lesion Pneumonia Deconditioning Ms Parks [facility] appears to be improving to some degree she is more awake and interactive. She is status post bronchoscopy which is limited to the right upper lobe noted to be filled with mucopurulent secretions BAL was performed and we will have to wait a on the results. I did discuss the case with the infectious disease attending physician Dr. Sanchez were both in agreement to corin castle the current antimicrobial coverage pending bronchoscopy results. We will send fungal serologies to see if this may be a fungal infection in nature however even if this is the case we are both in agreement that her poor performance status and deconditioning would not not make her candidate for ongoing treatment with the antifungal therapy. Family updated at bedside. We will start to wean her off stress dose hydrocortisone <Deng Freeman - Last Filed: 01/22/19 15:42> Date of Encounter: 01/22/19 Time of Encounter: 09:00 Assessment and Plan (1) Acute and chronic respiratory failure Current Visit: Yes Status: Acute Patient presents with acute on chronic Hypoxic Respiratory Failure Baseline 4L O2 Trach Collar during day with nighttime pressure support Currently unable to take patient off ventilator; PEEP 8, FiO2 50% Etiology of V/Q mismatch 2/2 Pneumonia CXR on admission showed RUL consolidation CT Chest 01/21 revealed cavitary lesion with air-fluid levels in [place] of Right Lung Patient was on Vanc/Cefepime/Clinda, switched 01/20 to Vanc/Merropenem Pulmonary Edema also possibly contributing to worsening respiratory status given obvious fluid overload in setting of ESRD Bronchoscopy performed today Plan: -Patient more alert following dialysis but still not tolerating being off vent after trial this afternoon -Will continue with Vent at night and start Pressure Support during day -Eventual Goal of Trach Collar during day and Pressure Support HS -F/U BAL cultures/cytology -Respiratory Infection Panel ordered -F/U blood cultures, NGTD -F/U sputum cultures, not yet collected -Continue Bronchodilators Qualifiers: Respiratory failure complication: hypoxia Qualified Code(s): J96.21 - Acute and chronic respiratory failure with hypoxia (2) Sepsis Current Visit: No Status: Acute 2/2 pneumonia Tachycardia/Hypoxia/Leukocytosis on admission Now with fever up to 101 last night Switched from Vanc/Cefepime/Clindamycin to Vanc/Meropenem yesterday Hx of MDR bacteremia and PNA Recently treated up at [facility] for Psuedomonal PNA, completed ABX right before readmission here Patient has been Hypotensive but Lactate has been WNL Plan: -Continue with albumin for volume expansion -Continue with current ABX for now, ID has been consulted and we appreciate their recommendations -Begin 50mg IV SoluCortef Q6Hrs for possible adrenal insufficiency Qualifiers: Sepsis type: Streptococcus, other Sepsis acute organ dysfunction status: unspecified Qualified Code(s): A40.8 - Other streptococcal sepsis (3) Pneumonia Current Visit: No Status: Ruled-out Plan as above Bronch tomorrow ID consulted placed Cont. ABX Qualifiers: Pneumonia type: due to unspecified organism Laterality: bilateral Lung location: unspecified part of lung Qualified Code(s): J18.9 - Pneumonia, unspecified organism (4) Current chronic use of systemic steroids Current Visit: Yes Status: Acute Patient may be presenting with Adrenal Insufficiency given custodial use of steroids now presenting with Hypotension and Hyponatremia Will titrate down on Steroids Was on 50mg Q6Hrs Will decrease to 25mg Q6 Solucortef (5) COPD (chronic obstructive pulmonary disease) Current Visit: Yes Status: Acute Not in acute exacerbation No evidence of wheezing on exam Will still proceed with Steroids given possibility of Adrenal Insufficiency Qualifiers: Emphysema type: centrilobular Qualified Code(s): J43.2 - Centrilobular emphysema Subjective Principal diagnosis: esrd Interval history: Briefly, Mrs. Parks is a 78F with PMHx of ESRD, CHF, [place], HTN, HLD, CVA and COPD with a tracheostomy x2yrs who is currently admitted for acute on chronic hypoxic respiratory failure and sepsis secondary to pneumonia with history of pseudomonal PNA and Enteroccocal bacteremia. All labs, images and documentation reviewed. Patient seen and examined. No events overnight. Nursing reports no new or worsening problems. Patient remains somnolent but is arousable and does answer questions yes/no occasionally. Denies Pain. Family reports patient does sound like she has worsening Rhonchi today. Patient went for Bronchoscopy this morning. NO complications. Objective PUL Vital signs: Last Vital Signs Temp 99 F 01/22/19 07:25 Pulse 94 01/22/19 07:40 Resp 14 01/22/19 07:40 BP 128/65 01/22/19 07:40 Pulse Ox 95 01/22/19 09:40 Gen: somnolent, pale, frail, vitals noted Head: Atraumatic, normocephalic Eyes: opens eyes on command, no spontaneous opening observed, anicteric ENT: Mucous membranes moist Neck: trach collar in place, no evidence of leak CV: Regular Rate, Regular Rhythm, no murmurs Resp: Diminished LLL, Rest of lung field normal, no rhonchi or wheeze, no rales Abd: soft, nontender, nondistended, Bowel Sounds Present Ext: +1 pretibial pitting edema, no clubbing Skin: diffuse ecchymosis, no rash, warm and dry Ventilator Settings Ventilator Settings: Ventilator Settings, Last 8 Hours Ventilator Tidal Volume 450 Setting Ventilator Respiratory Rate 12 Setting Actual Respiratory Rate 22 Positive End Expiratory 8.0 Pressure Peak Inspiratory Airway 25 Pressure Results - Laboratory Findings CBC and BMP: 01/22/19 04:34 01/22/19 04:34 ABG ABG pH 7.44 pH Units (7.32-7.45) 01/20/19 05:48 ABG pCO2 40 mmHg (35-45) 01/20/19 05:48 ABG pO2 102 mmHg (85-104) 01/20/19 05:48 ABG O2 Saturation 98 % (95-98) 01/20/19 05:48 PT/INR, D-dimer PT 14.9 Seconds (9.4-12.1) H 01/18/19 14:06 Abnormal lab findings: Abnormal lab results WBC 18.2 K/mcL (4.3-11.1) H 01/22/19 04:34 RBC 3.67 M/mcL (3.82-4.97) L 01/22/19 04:34 Hgb 10.1 g/dL (11.5-15.4) L 01/22/19 04:34 Hct 34.5 % (35.3-44.9) L 01/22/19 04:34 MCH 27.5 pg (28.0-33.3) L 01/22/19 04:34 MCHC 29.3 g/dL (31.6-35.5) L 01/22/19 04:34 RDW 20.1 % (11.5-14.5) H 01/22/19 04:34 Neutrophils # 16.2 K/mcL (1.6-8.9) H 01/22/19 04:34 Nucleated RBCs/100 WBC 0.2 /100 WBC (0) H 01/22/19 04:34 Hypochromasia Present (Not Present) A 01/20/19 06:54 Anisocytosis 1+ (Not Present) A 01/20/19 06:54 PT 14.9 Seconds (9.4-12.1) H 01/18/19 14:06 ABG Total CO2 28 mEq/L (20-26) H 01/20/19 05:48 VBG HCO3 29 mEq/L (21-27) H 01/18/19 14:17 Sodium 135 mEq/L (136-145) L 01/22/19 04:34 Potassium 3.4 mEq/L (3.5-5.1) L 01/21/19 06:47 Chloride 95 mEq/L (98-107) L 01/22/19 04:34 Carbon Dioxide 19 mEq/L (23-29) L 01/22/19 04:34 BUN 32 mg/dL (8-23) H 01/22/19 04:34 Creatinine 2.82 mg/dL (0.60-1.20) H 01/22/19 04:34 Est GFR ( Amer) 20 (> 60) L 01/22/19 04:34 Est GFR (Non-Af Amer) 16 (> 60) L 01/22/19 04:34 Glucose 319 mg/dL (70-105) H 01/22/19 04:34 POC Glucose 257 mg/dL (70-99) H 01/21/19 07:59 Lactic Acid 2.3 mmol/L (0.5-2.2) H 01/18/19 14:06 Calcium 8.1 mg/dL (8.6-10.3) L 01/19/19 00:12 Alkaline Phosphatase 120 Units/L (34-104) H 01/20/19 06:54 Troponin I 0.05 ng/mL (< 0.04) H* 01/19/19 04:14 B-Natriuretic Peptide 263 pg/mL (Less than 100) H 01/18/19 14:06 Serum Total Protein 6.3 g/dL (6.4-8.9) L 01/20/19 06:54 Albumin 2.9 g/dL (3.5-5.7) L 01/20/19 06:54 Albumin/Globulin Ratio 0.9 (1.1-2.2) L 01/20/19 06:54 Hep Bs Antibody < 3.10 mIU/mL (10.00-) L 01/19/19 12:43 - Clinical Findings Intake & Output: Intake & Output 01/21/19 01/22/19 01/22/19 23:59 07:59 15:59 Intake Total 100 / 650 100 / 100 Output Total 0 / 0 Balance 100 / 650 100 / 100
--- NOTE | 2019-01-22 11:48 | Nephrology Progress Note ---
Date of Encounter: 01/22/19 Time of Encounter: 11:45 - Assessment and Plan (1) ESRD (end stage renal disease) on dialysis Current Visit: No Status: Chronic HD MWF in [place] with Dr. Peraza HD cautiously in progress. Systolic BP's in the 80-90's. Midodrine increased to 10 mg PO TID, however she was unable to take due to sedation. Renal vitamins. Renal dose medications. Renal diet. Additional dialysis and ultrafiltration as needed. (2) Anemia Current Visit: No Status: Chronic Transfusion per the primary team. Hgb is 10.1 stable and at goal. Qualifiers: Anemia type: unspecified type Qualified Code(s): D64.9 - Anemia, unspecified (3) Diabetes mellitus Current Visit: No Status: Chronic Per primary. Qualifiers: Diabetes mellitus type: type 2 Diabetes mellitus manager intermediate insulin use: with manager intermediate use Diabetes mellitus complication status: with kidney complications Diabetes mellitus complication detail: with chronic kidney disease Chronic kidney disease stage: on chronic dialysis Qualified Code(s): E11.22 - Type 2 diabetes mellitus with diabetic chronic kidney disease; N18.6 - End stage renal disease; Z79.4 - exterminator termite (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 (4) Hypertension Current Visit: No Status: Chronic Titrate blood pressure medications as needed. Qualifiers: Hypertension type: essential hypertension Qualified Code(s): I10 - Essential (primary) hypertension (5) Acute and chronic respiratory failure Current Visit: Yes Status: Acute Patient has a trach and is currently on the vent. Management per the primary team. Qualifiers: Respiratory failure complication: hypoxia Qualified Code(s): J96.21 - Acute and chronic respiratory failure with hypoxia Subjective Principal diagnosis: esrd Interval history: Patient seen and examined and hemodialysis, attempting to run HD/UF, given BP systolic in the 80's it is difficult. ROS unobtained due to trach. Daughters at bedside. Objective - Vital Signs Vital signs: Vital Signs Temp Pulse Resp BP Pulse Ox 01/22/19 09:40 95 01/22/19 07:40 94 14 128/65 100 01/22/19 07:35 96 14 124/76 100 01/22/19 07:25 99 F 96 14 124/76 100 01/22/19 05:51 100.6 F H 01/22/19 04:33 22 95 01/22/19 03:26 101.0 F H 92 23 110/83 93 01/21/19 23:53 98.8 F 86 16 107/56 95 01/21/19 22:33 16 94 01/21/19 20:29 99.3 F 87 18 95/45 96 01/21/19 16:32 99.4 F 85 21 111/58 98 01/21/19 16:22 19 111/58 98 01/21/19 14:25 94/43 01/21/19 12:21 22 98/59 100 01/21/19 12:09 98.2 F 82 18 98/59 100 01/21/19 12:00 99.9 F H 16 94/43 Intake and Output 01/21/19 01/22/19 01/22/19 23:59 07:59 15:59 Intake Total 100 / 650 100 / 100 Output Total 0 / 0 Balance 100 / 650 100 / 100 Intake: IV Fluids 100 / 350 100 / 100 Ofirmev 1,000 mg/100 ml 1,000 100 / 100 mg In 100 ml @ 400 mls/hr IVPB ONCE ONE Rx#:[id number] Merrem 1,000 MG In 0.9 % Sodium 100 / 100 Chloride (Mini-Bag +) 100 ML @ 200 mls/hr IVPB Q24H [facility] Rx#: [id number] Oral 0 / 0 0 / 0 Output: Urine 0 / 0 Other: Meal Dinner Percent of Meal Consumed 5% # Bowel Movement Diapers 2 Blood Glucose* 208 314 110 - General Appearance General appearance: Present: chronically ill, frail EENT: Present: ATNC, hearing intact, vision intact Neck: Present: supple Respiratory: Present: rhonchi Cardiology: Present: edema, normal S1, normal S2 Dialysis Vascular Access: Venous Catheter (DRSG C/D/I) Gastrointestinal: Present: normoactive bowel sounds, no tenderness, no guarding Integumentary: Present: no rash, warm and dry Additional Comments: Unsure, pt was sedated for Bronch. Musculoskeletal: Present: no deformities, no erythema Psychiatric: Present: mood/affect appropriate, cooperative - Lab 01/22/19 04:34 01/22/19 04:34 Most recent lab results 01/22/19 04:34 Calcium 9.3 Consult Discharge Plan - Plan Referrals: Therese Garcia CNP [Primary Care Provider] - (Therese Garcia does home visits so the family will have to call and make a follow up with her when patient is discharged)
[2019-01-22] MEDS: Budesonide/Formoterol 160/4.5 1 PUFF INH IH SCH ×2 (12:06→21:50)
--- NOTE | 2019-01-22 12:54 | Palliative Progress Note ---
<Chrissie Man - Last Filed: 01/22/19 13:18> Date of Encounter: 01/22/19 Time of Encounter: 10:45 - Assessment and plan (1) Advanced care planning/counseling discussion Current Visit: Yes Status: Acute Assessment and plan: - Patient is currently a DNR-CCA - At this time patient's family would like to continue aggressive care of patient's acute symptoms. However they do express that they would not like the patient to be transferred to the ICU. - Plan to continue to monitor patient's progress and further need for goals of care discussion/discussions of hospice care - At this time hospice care has not been discussed as patient's family has already stated that they do not wish to discuss or consider hospice care at this time. (2) Acute and chronic respiratory failure Current Visit: No Status: Chronic Assessment and plan: Patient being followed by pulmonology Patient is currently on ventilator. Patient has a chronic trach. Qualifiers: Respiratory failure complication: unspecified whether with hypoxia or hypercapnia Qualified Code(s): J96.20 - Acute and chronic respiratory failure, unspecified whether with hypoxia or hypercapnia (3) Sepsis Current Visit: No Status: Acute Assessment and plan: Patient had a bronchoscopy today. Awaiting results from culture. Qualifiers: Sepsis type: Streptococcus, other Sepsis acute organ dysfunction status: unspecified Qualified Code(s): A40.8 - Other streptococcal sepsis (4) CKD (chronic kidney disease) stage V requiring chronic dialysis Current Visit: No Status: Chronic Assessment and plan: Patient currently receiving HD. (5) Ventilator associated pneumonia Current Visit: Yes Status: Acute - Time Spent With Patient Total time spent is greater than 50% in coordination of care (as documented) at patient's floor/unit and/or counseling patient: 25 - 35 minutes - Subjective Interval history: Ms. Parks is a 78 year old female with a past medical history of a-fib, cancer, CHF, COPD, CVA, DM, ESRD-on dialysis, chronic trach, ID, presenting to the hospital with a history of SOB and dyspnea. Patient was seen today while she was in dialysis after she had a bronchoscopy performed earlier today. Patient was lethargic during the interview and only opened her eyes to touch. One of the pat ient;s daughters expressed her concerns regarding her mother, stating that she is aware that her mother had a CT showing a cavitary lesion. She reports that her mother had a fungal infection a few years ago causing cavitary lesions as well, and that her mother was treated wit an antifungal at that time, and had recovered well on it. She does acknowledge that her mother is not as healthy as she was at that time, and is cognizant of the fact that her mother may not tolerate an antifungal treatment again, however wants to wait to discuss this further until a more clear diagnosis has been made. She states that she would like to be able to spend as much time with her mother as possible, and that she has reservations about if her mom would need to go to the ICU. At this time she express that she would not like her mother to go to the ICU but would still at this time like everything to be done outside of this. 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 She states that her mother made decisions in the past to get a trache and a feeding tube, but had expressed that she would not want to be on the ventilator permanently 24 hours a day. - Constitutional Vitals: Abnormal lab results WBC 18.2 K/mcL (4.3-11.1) H 01/22/19 04:34 RBC 3.67 M/mcL (3.82-4.97) L 01/22/19 04:34 Hgb 10.1 g/dL (11.5-15.4) L 01/22/19 04:34 Hct 34.5 % (35.3-44.9) L 01/22/19 04:34 MCH 27.5 pg (28.0-33.3) L 01/22/19 04:34 MCHC 29.3 g/dL (31.6-35.5) L 01/22/19 04:34 RDW 20.1 % (11.5-14.5) H 01/22/19 04:34 Neutrophils # 16.2 K/mcL (1.6-8.9) H 01/22/19 04:34 Nucleated RBCs/100 WBC 0.2 /100 WBC (0) H 01/22/19 04:34 Hypochromasia Present (Not Present) A 01/20/19 06:54 Anisocytosis 1+ (Not Present) A 01/20/19 06:54 PT 14.9 Seconds (9.4-12.1) H 01/18/19 14:06 ABG Total CO2 28 mEq/L (20-26) H 01/20/19 05:48 VBG HCO3 29 mEq/L (21-27) H 01/18/19 14:17 Sodium 135 mEq/L (136-145) L 01/22/19 04:34 Potassium 3.4 mEq/L (3.5-5.1) L 01/21/19 06:47 Chloride 95 mEq/L (98-107) L 01/22/19 04:34 Carbon Dioxide 19 mEq/L (23-29) L 01/22/19 04:34 BUN 32 mg/dL (8-23) H 01/22/19 04:34 Creatinine 2.82 mg/dL (0.60-1.20) H 01/22/19 04:34 Est GFR ( Amer) 20 (> 60) L 01/22/19 04:34 Est GFR (Non-Af Amer) 16 (> 60) L 01/22/19 04:34 Glucose 319 mg/dL (70-105) H 01/22/19 04:34 POC Glucose 314 mg/dL (70-99) H 01/22/19 05:52 Lactic Acid 2.3 mmol/L (0.5-2.2) H 01/18/19 14:06 Calcium 8.1 mg/dL (8.6-10.3) L 01/19/19 00:12 Alkaline Phosphatase 120 Units/L (34-104) H 01/20/19 06:54 Troponin I 0.05 ng/mL (< 0.04) H* 01/19/19 04:14 B-Natriuretic Peptide 263 pg/mL (Less than 100) H 01/18/19 14:06 Serum Total Protein 6.3 g/dL (6.4-8.9) L 01/20/19 06:54 Albumin 2.9 g/dL (3.5-5.7) L 01/20/19 06:54 Albumin/Globulin Ratio 0.9 (1.1-2.2) L 01/20/19 06:54 Hep Bs Antibody < 3.10 mIU/mL (10.00-) L 01/19/19 12:43 - Head Head exam: Present: atraumatic, normocephalic - ENT Additional comments: trach placed with ventilator. - Respiratory Respiratory exam: Present: CTAB Additional comments: patient is on mechanical ventilation. Coarse breath sounds throughout lungs. - Cardiovascular Cardiovascular exam: Present: RRR, +S1, +S2 - GI/Abdominal GI/Abdominal exam: Present: soft. Absent: tenderness - Extremities Exam Extremities exam: Absent: pedal edema - Neurological Exam Neurological exam: Absent: alert Additional comments: Patient opens eyes to light touch, but is very drowsy at this time - Skin Additional comments: multiple chronic skin tears and areas of ecchymosis present Palliative Quality Palliative Quality: Screen for Code Status: Yes, Screen for Goals of Care: Yes, Screen for Pain: Yes, Screen for Nausea/Vomitting: NA Code Status: 01/18/19 17:33 Resuscitation Status: Active [RES] Routine Comment: Resuscitation Status: [id number] 01/21/19 10:05 Resuscitation Status: Active [RES] Routine Comment: Resuscitation Status: DNR-Comfort Care 01/21/19 11:45 Resuscitation Status: Active [RES] Routine Comment: Resuscitation Status: DNR-Comfort Care-Arrest 01/21/19 11:47 DNR [Resuscitation Status: Active] [RES] Routine Comment: Resuscitation Status: DNR-Comfort Care-Arrest - Labs CBC & Chem 7: 01/22/19 04:34 01/22/19 04:34 Labs: Laboratory Results - last 24 hr 01/21/19 01/21/19 01/21/19 12:17 16:32 20:38 WBC RBC Hgb Hct MCV MCH MCHC RDW Plt Count MPV Immature Gran % Seg Neutrophils % Lymphocytes % Monocytes % Eosinophils % Basophils % Neutrophils # Lymphocytes # Monocytes # Eosinophils # Basophils # Nucleated RBCs/100 WBC Sodium Potassium Chloride Carbon Dioxide BUN Creatinine Est GFR ( Amer) Est GFR (Non-Af Amer) BUN/Creatinine Ratio Glucose POC Glucose 127 H 224 H 208 H Calculated Osmolality Calcium TSH Free T4 Chlamy pneumoniae PCR Adenovirus (PCR) B. pertussis DNA (PCR) B.parapertussis DNA PCR Coronavirus OC43 (PCR) Coronavirus HKU1 (PCR) Coronavirus 229E (PCR) Coronavirus NL63 (PCR) Human Metapneumovir PCR Influenza A (H1) PCR Influ A (H1N1/09) PCR Influenza A (H3) PCR Influenza A Untype (PCR) Influenza Type B (PCR) M.pneumoniae DNA (PCR) Parainfluenza 1 (PCR) Parainfluenza 2 (PCR) Parainfluenza 3 (PCR) Parainfluenza 4 (PCR) RSV (PCR) Entero/Rhino (PCR) 01/21/19 01/22/19 01/22/19 21:40 04:34 04:34 WBC 18.2 H RBC 3.67 L Hgb 10.1 L Hct 34.5 L MCV 94.0 MCH 27.5 L MCHC 29.3 L RDW 20.1 H Plt Count 213 MPV 10.4 Immature Gran % 3.2 Seg Neutrophils % 88.9 Lymphocytes % 5.4 Monocytes % 2.1 Eosinophils % 0.1 Basophils % 0.3 Neutrophils # 16.2 H Lymphocytes # 1.0 Monocytes # 0.4 Eosinophils # 0.0 Basophils # 0.1 Nucleated RBCs/100 WBC 0.2 H Sodium 135 L Potassium 3.9 Chloride 95 L Carbon Dioxide 19 L BUN 32 H Creatinine 2.82 H Est GFR ( Amer) 20 L Est GFR (Non-Af Amer) 16 L BUN/Creatinine Ratio 11 Glucose 319 H POC Glucose Calculated Osmolality 299 Calcium 9.3 TSH 0.405 Free T4 1.01 Chlamy pneumoniae PCR Not Detected Adenovirus (PCR) Not Detected B. pertussis DNA (PCR) Not Detected B.parapertussis DNA PCR Not Detected Coronavirus OC43 (PCR) Not Detected Coronavirus HKU1 (PCR) Not Detected Coronavirus 229E (PCR) Not Detected Coronavirus NL63 (PCR) Not Detected Human Metapneumovir PCR Not Detected Influenza A (H1) PCR Not Detected Influ A (H1N1/09) PCR Not Detected Influenza A (H3) PCR Not Detected Influenza A Untype (PCR) Not Detected Influenza Type B (PCR) Not Detected M.pneumoniae DNA (PCR) Not Detected Parainfluenza 1 (PCR) Not Detected Parainfluenza 2 (PCR) Not Detected Parainfluenza 3 (PCR) Not Detected Parainfluenza 4 (PCR) Not Detected RSV (PCR) Not Detected Entero/Rhino (PCR) Not Detected 01/22/19 05:52 WBC RBC Hgb Hct MCV MCH MCHC RDW Plt Count MPV Immature Gran % Seg Neutrophils % Lymphocytes % Monocytes % Eosinophils % Basophils % Neutrophils # Lymphocytes # Monocytes # Eosinophils # Basophils # Nucleated RBCs/100 WBC Sodium Potassium Chloride Carbon Dioxide BUN Creatinine Est GFR ( Amer) Est GFR (Non-Af Amer) BUN/Creatinine Ratio Glucose POC Glucose 314 H Calculated Osmolality Calcium TSH Free T4 Chlamy pneumoniae PCR Adenovirus (PCR) B. pertussis DNA (PCR) B.parapertussis DNA PCR Coronavirus OC43 (PCR) Coronavirus HKU1 (PCR) Coronavirus 229E (PCR) Coronavirus NL63 (PCR) Human Metapneumovir PCR Influenza A (H1) PCR Influ A (H1N1/09) PCR Influenza A (H3) PCR Influenza A Untype (PCR) Influenza Type B (PCR) M.pneumoniae DNA (PCR) Parainfluenza 1 (PCR) Parainfluenza 2 (PCR) Parainfluenza 3 (PCR) Parainfluenza 4 (PCR) RSV (PCR) Entero/Rhino (PCR) - ABG Interpretation ABG results: ABG ABG pH 7.44 pH Units (7.32-7.45) 01/20/19 05:48 ABG pCO2 40 mmHg (35-45) 01/20/19 05:48 ABG pO2 102 mmHg (85-104) 01/20/19 05:48 ABG O2 Saturation 98 % (95-98) 01/20/19 05:48 PT/INR, D-dimer PT 14.9 Seconds (9.4-12.1) H 01/18/19 14:06 Palliative Scale - Palliative Performance Scale How ambulatory is this patient?: Mainly in bed What is patient's level of activity and evidence of disease?: Unable to do any work, Extensive disease How much self-care assistance does patient require?: Mainly assistance How much oral intake does the patient have?: Normal or reduced What is this patient's level of consciousness?: Full or drowsy with or without confusion Palliative Performance Score: 40 % Consult Discharge Plan - Plan Referrals: Therese Garcia [employer] [Primary Care Provider] - (Therese Garcia does home visits so the family will have to call and make a follow up with her when patient is discharged) <Valeria Chavez - Last Filed: 01/22/19 13:43> Date of Encounter: 01/22/19 - Time Spent With Patient Total time spent is greater than 50% in coordination of care (as documented) at patient's floor/unit and/or counseling patient: - Constitutional Vitals: Abnormal lab results WBC 18.2 K/mcL (4.3-11.1) H 01/22/19 04:34 RBC 3.67 M/mcL (3.82-4.97) L 01/22/19 04:34 Hgb 10.1 g/dL (11.5-15.4) L 01/22/19 04:34 Hct 34.5 % (35.3-44.9) L 01/22/19 04:34 MCH 27.5 pg (28.0-33.3) L 01/22/19 04:34 MCHC 29.3 g/dL (31.6-35.5) L 01/22/19 04:34 RDW 20.1 % (11.5-14.5) H 01/22/19 04:34 Neutrophils # 16.2 K/mcL (1.6-8.9) H 01/22/19 04:34 Nucleated RBCs/100 WBC 0.2 /100 WBC (0) H 01/22/19 04:34 Hypochromasia Present (Not Present) A 01/20/19 06:54 Anisocytosis 1+ (Not Present) A 01/20/19 06:54 PT 14.9 Seconds (9.4-12.1) H 01/18/19 14:06 ABG Total CO2 28 mEq/L (20-26) H 01/20/19 05:48 VBG HCO3 29 mEq/L (21-27) H 01/18/19 14:17 Sodium 135 mEq/L (136-145) L 01/22/19 04:34 Potassium 3.4 mEq/L (3.5-5.1) L 01/21/19 06:47 Chloride 95 mEq/L (98-107) L 01/22/19 04:34 Carbon Dioxide 19 mEq/L (23-29) L 01/22/19 04:34 BUN 32 mg/dL (8-23) H 01/22/19 04:34 Creatinine 2.82 mg/dL (0.60-1.20) H 01/22/19 04:34 Est GFR ( Amer) 20 (> 60) L 01/22/19 04:34 Est GFR (Non-Af Amer) 16 (> 60) L 01/22/19 04:34 Glucose 319 mg/dL (70-105) H 01/22/19 04:34 POC Glucose 314 mg/dL (70-99) H 01/22/19 05:52 Lactic Acid 2.3 mmol/L (0.5-2.2) H 01/18/19 14:06 Calcium 8.1 mg/dL (8.6-10.3) L 01/19/19 00:12 Alkaline Phosphatase 120 Units/L (34-104) H 01/20/19 06:54 Troponin I 0.05 ng/mL (< 0.04) H* 01/19/19 04:14 B-Natriuretic Peptide 263 pg/mL (Less than 100) H 01/18/19 14:06 Serum Total Protein 6.3 g/dL (6.4-8.9) L 01/20/19 06:54 Albumin 2.9 g/dL (3.5-5.7) L 01/20/19 06:54 Albumin/Globulin Ratio 0.9 (1.1-2.2) L 01/20/19 06:54 Hep Bs Antibody < 3.10 mIU/mL (10.00-) L 01/19/19 12:43 - Attending Attestation I examined this patient and my medical decision-making was reviewed with the Resident Physician. I agree with the documented findings, disposition and treatm ent plan as described except to the extent set forth below. Patient is s/p bronchoscopy today, was seen in dialysis, remains drowsy. Both daughters were present at the bedside, and want to continue all agressve measures, short of transfering pt to ICU. Tova stated that pt did not want to be kept alive artificially, however at this time they are still hopefull for improvement and return to baseline. palliative care will continue to follow. Palliative Quality Code Status: 01/18/19 17:33 Resuscitation Status: Active [RES] Routine Comment: Resuscitation Status: [id number] 01/21/19 10:05 Resuscitation Status: Active [RES] Routine Comment: Resuscitation Status: DNR-Comfort Care 01/21/19 11:45 Resuscitation Status: Active [RES] Routine Comment: Resuscitation Status: DNR-Comfort Care-Arrest 01/21/19 11:47 DNR [Resuscitation Status: Active] [RES] Routine Comment: Resuscitation Status: DNR-Comfort Care-Arrest - Labs CBC & Chem 7: 01/22/19 04:34 01/22/19 04:34 Labs: Laboratory Results - last 24 hr 01/21/19 01/21/19 01/21/19 12:17 16:32 20:38 WBC RBC Hgb Hct MCV MCH MCHC RDW Plt Count MPV Immature Gran % Seg Neutrophils % Lymphocytes % Monocytes % Eosinophils % Basophils % Neutrophils # Lymphocytes # Monocytes # Eosinophils # Basophils # Nucleated RBCs/100 WBC Sodium Potassium Chloride Carbon Dioxide BUN Creatinine Est GFR ( Amer) Est GFR (Non-Af Amer) BUN/Creatinine Ratio Glucose POC Glucose 127 H 224 H 208 H Calculated Osmolality Calcium TSH Free T4 Chlamy pneumoniae PCR Adenovirus (PCR) B. pertussis DNA (PCR) B.parapertussis DNA PCR Coronavirus OC43 (PCR) Coronavirus HKU1 (PCR) Coronavirus 229E (PCR) Coronavirus NL63 (PCR) Human Metapneumovir PCR Influenza A (H1) PCR Influ A (H1N1/09) PCR Influenza A (H3) PCR Influenza A Untype (PCR) Influenza Type B (PCR) M.pneumoniae DNA (PCR) Parainfluenza 1 (PCR) Parainfluenza 2 (PCR) Parainfluenza 3 (PCR) Parainfluenza 4 (PCR) RSV (PCR) Entero/Rhino (PCR) 01/21/19 01/22/19 01/22/19 21:40 04:34 04:34 WBC 18.2 H RBC 3.67 L Hgb 10.1 L Hct 34.5 L MCV 94.0 MCH 27.5 L MCHC 29.3 L RDW 20.1 H Plt Count 213 MPV 10.4 Immature Gran % 3.2 Seg Neutrophils % 88.9 Lymphocytes % 5.4 Monocytes % 2.1 Eosinophils % 0.1 Basophils % 0.3 Neutrophils # 16.2 H Lymphocytes # 1.0 Monocytes # 0.4 Eosinophils # 0.0 Basophils # 0.1 Nucleated RBCs/100 WBC 0.2 H Sodium 135 L Potassium 3.9 Chloride 95 L Carbon Dioxide 19 L BUN 32 H Creatinine 2.82 H Est GFR ( Amer) 20 L Est GFR (Non-Af Amer) 16 L BUN/Creatinine Ratio 11 Glucose 319 H POC Glucose Calculated Osmolality 299 Calcium 9.3 TSH 0.405 Free T4 1.01 Chlamy pneumoniae PCR Not Detected Adenovirus (PCR) Not Detected B. pertussis DNA (PCR) Not Detected B.parapertussis DNA PCR Not Detected Coronavirus OC43 (PCR) Not Detected Coronavirus HKU1 (PCR) Not Detected Coronavirus 229E (PCR) Not Detected Coronavirus NL63 (PCR) Not Detected Human Metapneumovir PCR Not Detected Influenza A (H1) PCR Not Detected Influ A (H1N1) PCR Not Detected Influenza A (H3) PCR Not Detected Influenza A Untype (PCR) Not Detected Influenza Type B (PCR) Not Detected M.pneumoniae DNA (PCR) Not Detected Parainfluenza 1 (PCR) Not Detected Parainfluenza 2 (PCR) Not Detected Parainfluenza 3 (PCR) Not Detected Parainfluenza 4 (PCR) Not Detected RSV (PCR) Not Detected Entero/Rhino (PCR) Not Detected 01/22/19 05:52 WBC RBC Hgb Hct MCV MCH MCHC RDW Plt Count MPV Immature Gran % Seg Neutrophils % Lymphocytes % Monocytes % Eosinophils % Basophils % Neutrophils # Lymphocytes # Monocytes # Eosinophils # Basophils # Nucleated RBCs/100 WBC Sodium Potassium Chloride Carbon Dioxide BUN Creatinine Est GFR ( Amer) Est GFR (Non-Af Amer) BUN/Creatinine Ratio Glucose POC Glucose 314 H Calculated Osmolality Calcium TSH Free T4 Chlamy pneumoniae PCR Adenovirus (PCR) B. pertussis DNA (PCR) B.parapertussis DNA PCR Coronavirus OC43 (PCR) Coronavirus HKU1 (PCR) Coronavirus 229E (PCR) Coronavirus NL63 (PCR) Human Metapneumovir PCR Influenza A (H1) PCR Influ A (H1N1) PCR Influenza A (H3) PCR Influenza A Untype (PCR) Influenza Type B (PCR) M.pneumoniae DNA (PCR) Parainfluenza 1 (PCR) Parainfluenza 2 (PCR) Parainfluenza 3 (PCR) Parainfluenza 4 (PCR) RSV (PCR) Entero/Rhino (PCR) - ABG Interpretation ABG results: ABG ABG pH 7.44 pH Units (7.32-7.45) 01/20/19 05:48 ABG pCO2 40 mmHg (35-45) 01/20/19 05:48 ABG pO2 102 mmHg (85-104) 01/20/19 05:48 ABG O2 Saturation 98 % (95-98) 01/20/19 05:48 PT/INR, D-dimer PT 14.9 Seconds (9.4-12.1) H 01/18/19 14:06
[2019-01-22] MEDS: Renal Vitamin 1 CAP CAPSULE PO SCH (14:15)
[2019-01-22] MEDS: Meropenem 1,000 MG in 0.9 % Sodium Chloride Mini Bag 100 ML IVPB SCH (14:18)
--- NOTE | 2019-01-22 14:43 | Internal Med Progress Note ---
Hospitalist Progress Note - Encounter Date of Encounter: 01/22/19 Time of Encounter: 14:41 - Subjective Interval History: Patient seen and examined. No acute events overnight. Patient still very sedated and not really answering questions. Ventilator still running. Patient underwent bronchoscopy this morning and went for dialysis. Family still wanting full care for patient. - Exam Vitals: Temp Pulse Resp BP Pulse Ox 97.8 F 94 17 111/69 95 01/22/19 13:45 01/22/19 07:40 01/22/19 13:45 01/22/19 13:45 01/22/19 09:40 Exam: GENERAL APPEARANCE: very sedated; not really answering questions HEENT: Normocephalic/atraumatic, PERRLA. NECK: Supple, nontender without lymphadenopathy. CARDIOVASCULAR: Normal S1, S2; regular rate and rhythm; no murmurs. RESPIRATORY: Coarse breath sounds; unable to auscultate wheezing or crackles; trach in place with vent attached ABDOMEN: Soft, nondistended, nontender; bowel sounds present. MUSKULOSKELETAL: No limitations in range of motion. EXTREMITIES: 1+ pitting edema b/l NEUROLOGICAL: Unable to assess as patient is sedated SKIN: Skin normal color, texture and turgor with no lesions or eruptions. - Assessment and Plan (1) Acute and chronic respiratory failure ([id number]) Current Visit: No Status: Acute Assessment and Plan: Patient with chronic trach requiring ventilation at night and 4L NC during day Worsening hypoxia requriing 6L NC to maintain 92% sat on admission Patient now requiring ventilator at all times Attempted to transition to NC at multiple times but without success thus far Plan: see above PRN breathing treatments continuous pulse oximtery Consult RT Pulmonology on board for management of ventilator Palliative care consulted (2) Ventilator associated pneumonia Current Visit: Yes Status: Acute Assessment and Plan: Patient recently treated for pseudomonoas pneumonia and bacteremia and [facility] with meropenam per family; patient is on prophylactic vancomycin with dialyss CXR showed RUL consolidation CT chest showing cavitary lesion in right lung apex Plan: s/p bronchosopy today; follow up cultures Pulm on board ID on board blood cultures pending; NGTD (3) Sepsis Current Visit: Yes Status: Acute Assessment and Plan: Patient presenting with acute respiratory failure and meeting criteria for sepsis with tachycardia, hypoxia, leukocytosis. Patient recently treated for PNA and bacteremia for pseudomonas with meropenam Blood pressure stable Patient was unable to complete dialysis day before admission Repeat Lactic acid normal Leukocytosis down today from before but still higher than admission Unable to take patient off ventilator Plan: Antibiotics adjusted to vanocmycin and meropenam for stronger coverage; renally dose per pharmacy Pulmonology on board: continue mechanical ventilation for now ID on board F/u blood and respiratory cultures (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 (5) Afib Current Visit: No Status: Chronic Assessment and Plan: Plan: telemetry; continue eliquis and home meds (6) CHF (congestive heart failure) Current Visit: No Status: Chronic Assessment and Plan: Patient with history of systolic CHF Did appear volume overloaded yesterday and did seem to improved after initial dialysis Patient is now on midodrine due to low BP Plan: monitor volume status; continue home meds Nephro on board (7) CKD (chronic kidney disease) stage V requiring chronic dialysis Current Visit: No Status: Chronic Assessment and Plan: Patient with ESRD on dialysis M,W,F Did not complete dialysis day of admission Plan: Nephro consulted; monitor renal function (8) COPD (chronic obstructive pulmonary disease) Current Visit: No Status: Chronic Assessment and Plan: Patient with history of COPD on chronic O2 via trach Plan: continue PRN breathing treatments Pulmonology on board (9) Diabetes mellitus Current Visit: No Status: Chronic Assessment and Plan: Blood sugars stable on admission Elevated now; patient has been started on hydrocortisone for adrenal insufficiency -sliding scale insulin (10) Advanced care planning/counseling discussion Current Visit: Yes Status: Acute Assessment and Plan: Discussed with family and attempted to explain how critically ill the patient is Multiple recent admissions becoming more and more frequent Chronic illnesses unlikely to improve Plan: Palliative care on board Continue to discuss goals of care with family - Time Spent with Patient Total time spent is greater than 50% in coordination of care (as documented) at patient's floor/unit and/or counseling patient: 40 minutes Plan of Care Discussed with: patient Internal Medicine: Result - Labs CBC & Chem 7: 01/22/19 04:34 01/22/19 04:34 Labs: Short CBC 01/22/19 Range/Units 04:34 WBC 18.2 H (4.3-11.1) K/mcL Hgb 10.1 L (11.5-15.4) g/dL Hct 34.5 L (35.3-44.9) % Plt Count 213 (140-400) K/mcL Neutrophils # 16.2 H (1.6-8.9) K/mcL BMP 01/22/19 04:34 Sodium 135 L Potassium 3.9 Chloride 95 L Carbon Dioxide 19 L BUN 32 H Creatinine 2.82 H Glucose 319 H Calcium 9.3 - ABG Interpretation ABG results: ABG ABG pH 7.44 pH Units (7.32-7.45) 01/20/19 05:48 ABG pCO2 40 mmHg (35-45) 01/20/19 05:48 ABG pO2 102 mmHg (85-104) 01/20/19 05:48 ABG O2 Saturation 98 % (95-98) 01/20/19 05:48 PT/INR, D-dimer PT 14.9 Seconds (9.4-12.1) H 01/18/19 14:06 Consult Discharge Plan - Plan Referrals: Therese Garcia, DATA CONTROL ASSISTANT [Primary Care Provider] - (Therese Garcia does home visits so the family will have to call and make a follow up with her when patient is discharged) (1) Acute and chronic respiratory failure ([id number]) Qualifiers: Respiratory failure complication: hypoxia Qualified Code(s): J96.21 - Acute and chronic respiratory failure with hypoxia (3) Sepsis Qualifiers: Sepsis type: sepsis due to unspecified organism Sepsis acute organ dysfunction status: with acute organ dysfunction Severe sepsis acute organ dysfunction type: acute respiratory failure Acute respiratory failure type: with hypoxia Severe sepsis shock status: without septic shock Qualified Code(s): A41.9 - Sepsis, unspecified organism; R65.20 - Severe sepsis without septic shock; J96.01 - Acute respiratory failure with hypoxia (5) Afib Qualifiers: Atrial fibrillation type: chronic Qualified Code(s): I48.2 - Chronic atrial fibrillation (6) CHF (congestive heart failure) Qualifiers: Heart failure type: diastolic Heart failure chronicity: unspecified Qualified Code(s): I50.30 - Unspecified diastolic (congestive) heart failure (8) COPD (chronic obstructive pulmonary disease) Qualifiers: COPD type: unspecified COPD Qualified Code(s): J44.9 - Chronic obstructive pulmonary disease, unspecified (9) Diabetes mellitus Qualifiers: Diabetes mellitus type: type 2 Diabetes mellitus retirement insulin use: with intermediate card tender use Diabetes mellitus complication status: with kidney complications Diabetes mellitus complication detail: with chronic kidney disease Chronic kidney disease stage: on chronic dialysis Qualified Code(s): E11.22 - Type 2 diabetes mellitus with diabetic chronic kidney disease; N18.6 - End stage renal disease; 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
[2019-01-22] MEDS ORDERED: *HR* HYDROcodone/Acet 5/325 mg TABLET PO PRN (17:42)
[2019-01-22] MEDS ORDERED: *HR* OxyCODONE Immed Rel 5 MG TABLET PO PRN (18:30)
[2019-01-22] MEDS: *HR* Acetaminophen w/Cod 300-30 mg 1 TAB TABLET PO PRN (18:50)
[2019-01-22] MEDS ORDERED: Insulin DETEMIR 100 UNIT/ML X5UNITS SQ SCH (21:00)
--- NOTE | 2019-01-22 23:09 | Infectious Disease Progress No ---
ID Progress Note Date of Encounter: 01/22/19 Time of Encounter: 12:00 - Subjective Subjective: Patient seen and examined during dialysis. Both daughters present. s/p bronchoscopy. clinically unchanged. ROS limited due to her mentation VS noted labs noted - Objective CBC & Chem 7: 01/22/19 04:34 01/22/19 04:34 - Exam Vitals: Temp Pulse Resp BP Pulse Ox 101.1 F H 90 30 118/71 97 01/22/19 19:52 01/22/19 19:52 01/22/19 21:50 01/22/19 21:50 01/22/19 21:50 Exam: GENERAL NAD lethargic on dialysis HEENT: Normocephalic/atraumatic, PERRLA. NECK: Supple, nontender without lymphadenopathy. CARDIOVASCULAR: Normal S1, S2; regular rate and rhythm; no murmurs. RESPIRATORY: Coarse breath sounds; unable to auscultate wheezing or crackles; trach in place with vent attached ABDOMEN: Soft, nondistended, nontender; bowel sounds present. EXTREMITIES: 1+ pitting edema b/l SKIN: mulitiple crhonic skin tears upper and lower extremities. - Assessment and Plan (1) Sepsis Current Visit: No Status: Acute had 3 SIRS criteria on 01/21 likely due to pneumonia Qualifiers: Sepsis type: Streptococcus, other Sepsis acute organ dysfunction status: unspecified Qualified Code(s): A40.8 - Other streptococcal sepsis SNOMED Code(s): 85566356 (2) HCAP (healthcare-associated pneumonia) Current Visit: No Status: Acute previous organism is PSEA R: cefepime, levofloxacin Treated for 4 weeks with IV meropenem from 12/06-01/04 symptoms returned 1 week after stopping antibiotics CT concerning for multifocal pneumonia with new cavitary lesion in the right apex with air fluid level blood cultures negative to date SNOMED Code(s): 755619198, 559487811 (3) Cavitary lesion of lung Current Visit: No Status: Acute etiology not clear pulmonary abscess vs fungal? she did have aspergillus grow from sputum in September 2018 appreciate pulmonary input SNOMED Code(s): 680620352 (4) CKD (chronic kidney disease) stage V requiring chronic dialysis Current Visit: No Status: Chronic on dialysis MWF previous dialysis cath was infected with enterococcus s/p removal and placement of another permacath after negative cultures x 5 days per family, patient was supposed to be on vanc after dialsysi through next week (3 more doses) SNOMED Code(s): 504315045 (5) Diarrhea Current Visit: No Status: Chronic etiology not clear likely due to use of antibioitcs C diff and stool GI panel negative Qualifiers: Diarrhea type: unspecified type Qualified Code(s): R19.7 - Diarrhea, unspecified SNOMED Code(s): 09620820 (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 Current Visit: No Status: Resolved s/p mastectomy SNOMED Code(s): 485590734 (7) CHF (congestive heart failure) Current Visit: No Status: Chronic Qualifiers: Heart failure type: diastolic Heart failure chronicity: unspecified Qualified Code(s): I50.30 - Unspecified diastolic (congestive) heart failure SNOMED Code(s): 65648020 (8) COPD (chronic obstructive pulmonary disease) Current Visit: No Status: Chronic Qualifiers: COPD type: unspecified COPD Qualified Code(s): J44.9 - Chronic obstructive pulmonary disease, unspecified SNOMED Code(s): 67112754 (9) Insulin dependent type 2 diabetes mellitus Current Visit: No Status: Chronic SNOMED Code(s): 608156868 (10) Chronic respiratory failure Current Visit: Yes Status: Acute SNOMED Code(s): 41678908 - Recommendations Recommendations: continues to be febrile awaint BAL results continue vanc and meropenem for now dose adjust based on CrCl will order fungal serology and once we have a more likely diagnosis of cavitary lesion we will d/w with family treatment options d/w Dr. Huntley. He is agreeable to current plan prognosis poor Consult Discharge Plan - Plan Referrals: Therese Garcia, HISTORY PROFESSOR [Primary Care Provider] - (Therese Garcia does home visits so the family will have to call and make a follow up with her when patient is discharged)
[2019-01-23] MEDS: Hydrocortisone Sodium Succ 100 MG/2 ML VIAL IVP SCH ×4 (00:26→17:37)
[2019-01-23] MEDS: *HR* Acetaminophen w/Cod 300-30 mg 1 TAB TABLET PO PRN ×2 (00:26→20:34)
[2019-01-23] MEDS ORDERED: Acetaminophen IV 1,000 MG/100 ML INFUS..BTL IVPB ONE (03:47)
[2019-01-23] MEDS: Levalbuterol Neb 1.25 MG/3 ML IH SCH ×4 (03:52→22:11)
[2019-01-23 05:46] LABS: Basophils % 0.3 %; Eosinophils % 0.1 %; Hematocrit 35.4 % (35.3-44.9); Hemoglobin 10.1 g/dL (11.5-15.4); Lymphocytes % 7.4 %; Mean Corpuscular HGB Conc 28.5 g/dL (31.6-35.5); Mean Corpuscular Hemoglobin 26.9 pg (28.0-33.3); Mean Corpuscular Volume 94.4 fL (83.0-100.0); Mean Platelet Volume 10.8 fL (9.4-12.4); Monocytes # 0.6 K/mcL (0.0-1.3); Monocytes % 4.6 %; Neutrophils # 11.7 K/mcL (1.6-8.9); Nucleated Red Blood Cells 0.3 /100 WBC (0); Platelet Count 222 K/mcL (140-400); Red Blood Count 3.75 M/mcL (3.82-4.97); Segmented Neutrophils % 84.6 %; White Blood Count 13.8 K/mcL (4.3-11.1)
[2019-01-23 06:07] LABS: Anisocytosis 1+ (Not Present); Hypochromasia Present (Not Present); Platelet Estimate Normal (Normal)
[2019-01-23 06:10] LABS: Albumin 3.5 g/dL (3.5-5.7); Albumin/Globulin Ratio 1.2 (1.1-2.2); Bilirubin,Total 0.6 mg/dL (0.3-1.0); Calcium 9.9 mg/dL (8.6-10.3); Globulin 2.9 g/dL (2.4-3.5); Potassium 3.7 mEq/L (3.5-5.1); Total Protein 6.4 g/dL (6.4-8.9)
[2019-01-23] MEDS ORDERED: *HR* Heparin 10,000 UNIT/10 ML VIAL IV PRN (07:05)
[2019-01-23] MEDS ORDERED: 0.9 % Sodium Chloride 250 ML IVC PRN (07:05)
[2019-01-23] MEDS ORDERED: 0.9 % Sodium Chloride 1,000 ML PRIME SCH (07:15)
[2019-01-23] MEDS ORDERED: Albumin 25% 12.5gm/50mL 0 GM/0 ML IV.SOLN ONE (07:51)
[2019-01-23] MEDS: Insulin LISPRO 300 UNITS/3 ML VIAL SQ SCH ×4 (07:59→21:15)
--- NOTE | 2019-01-23 08:51 | Internal Med Progress Note ---
Hospitalist Progress Note - Encounter Date of Encounter: 01/23/19 Time of Encounter: 08:31 - Subjective Interval History: Patient able to wake up some today and nod to questions, but is drowsy. Daughter is present for history. Overnight, no acute issues. Daughter is concerned that patient's trach may be causing patient discomfort given what she reports as sonorous breath sounds at night. No fevers in last 24h. No N/V/D. - Exam Vitals: Temp Pulse Resp BP Pulse Ox 99.3 F 95 24 140/64 100 01/23/19 08:13 01/23/19 08:13 01/23/19 08:13 01/23/19 03:52 01/23/19 08:13 Exam: GENERAL APPEARANCE: somnolent, will nod for basic questions HEENT: Normocephalic/atraumatic, EOMI. CARDIOVASCULAR: Normal S1, S2; regular rate and rhythm; no murmurs. RESPIRATORY: Coarse breath sounds; unable to auscultate wheezing or crackles; trach in place with vent attached ABDOMEN: Soft, nondistended EXTREMITIES: 1+ pitting edema b/l NEUROLOGICAL: Unable to assess as patient is somnolent SKIN: Skin normal color, texture and turgor with skin tears and bruises scattered - Summary of Assessment and Plan Summary of Assessment and Plan: Dorothy Parks is a 78 F w hx ESRD on HD MWF, HFpEF, CAD s/p MO, HTN, DM2, CVA, A- Fib not on AC 2/2 GIB requiring colectomy, COPD s/p chronic trach on 4L and vent qhs, and who was recently discharged from our hospital following bacteremia from HD cath and then subsequently was at [facility] for PNA and bacteremia on meropenem and vanc, who presented at time of admission with SOB, hypoxia, and found to have l eukocytosis, CT showing RUL consolidation, concerning for VAP, with inability to wean from vent during day. RUL VAP and cavitary lesion: - empiric vanc, meropenem - ID and pulm following - BAL 01/22 results pending - Fungal culture pending Sepsis (poa): resolved Acute on chronic hypoxic respiratory failure requiring trach vent: baseline trach vent at night but here requiring around the clock and difficulty weaning - home inhalers, duonebs prn - Pulm following for vent management, to try again today to wean during day ESRD on HD MWF: Neph consulted, home calcitriol, darbo, fosrenol HFpEF: volume per HD CAD: home lipitor, has listed allergy to ASA HTN: volume per HD DM2: insulin dependent, w hyperglycemia, controlled currently, use SSI A-Fib: not on AC, rhythm on amio 200, rate on metoprolol 12.5 bid Anx/dep: home lexapro 20, effexor 37.5, buspar 7.5 bid, ativan tid prn, trazodone 50 qhs prn PPx: eliquis FEN: renal, no MIVF Lines: PIV, permacath, trach Consults: Neph, ID, Pulm, Palliative Code: DNRCC-A Dispo: requires inpatient care for evaluation and monitoring, unknown duration, per palliative pt is not ready for dnrcc Internal Medicine: Result - Labs CBC & Chem 7: 01/23/19 04:55 01/23/19 04:55 Labs: Short CBC 01/23/19 Range/Units 04:55 WBC 13.8 H (4.3-11.1) K/mcL Hgb 10.1 L (11.5-15.4) g/dL Hct 35.4 (35.3-44.9) % Plt Count 222 (140-400) K/mcL Neutrophils # 11.7 H (1.6-8.9) K/mcL BMP 01/23/19 04:55 Sodium 140 Potassium 3.7 Chloride 95 L Carbon Dioxide 30 H BUN 19 Creatinine 2.01 H Glucose 227 H Calcium 9.9 Liver Function 01/23/19 Range/Units 04:55 Total Bilirubin 0.6 (0.3-1.0) mg/dL AST 16 (13-39) Units/L ALT 8 (7-52) Units/L Alkaline Phosphatase 96 (34-104) Units/L Albumin 3.5 (3.5-5.7) g/dL - ABG Interpretation ABG results: ABG ABG pH 7.44 pH Units (7.32-7.45) 01/20/19 05:48 ABG pCO2 40 mmHg (35-45) 01/20/19 05:48 ABG pO2 102 mmHg (85-104) 01/20/19 05:48 ABG O2 Saturation 98 % (95-98) 01/20/19 05:48 PT/INR, D-dimer PT 14.9 Seconds (9.4-12.1) H 01/18/19 14:06 Consult Discharge Plan - Plan Referrals: Therese Garcia CNP [Primary Care Provider] - (Therese Garcia does home visits so the family will have to call and make a follow up with her when patient is discharged)
--- NOTE | 2019-01-23 09:06 | Pulmonology Progress Note ---
<Deng Freeman M - Last Filed: 01/23/19 09:52> Date of Encounter: 01/23/19 Time of Encounter: 09:00 Assessment and Plan (1) Acute and chronic respiratory failure Current Visit: Yes Status: Acute Patient presents with acute on chronic Hypoxic Respiratory Failure Baseline 4L O2 Trach Collar during day with nighttime pressure support Currently unable to take patient off ventilator; PEEP 8, FiO2 50% Etiology of V/Q mismatch 2/2 Pneumonia CXR on admission showed RUL consolidation CT Chest 01/21 revealed cavitary lesion with air-fluid levels in [place] of Right Lung Patient was on Vanc/Cefepime/Clinda, switched 01/20 to Vanc/Merropenem Pulmonary Edema also possibly contributing to worsening respiratory status given obvious fluid overload in setting of ESRD Bronchoscopy BAL results and fungal culture still pending Plan: -Patient still not tolerating being off vent, will continue to attempt to wean -Will continue with Vent at night and trial pressure support during day -Eventual Goal of Trach Collar during day and Pressure Support HS -F/U BAL cultures/cytology -Respiratory Infection Panel ordered -F/U blood cultures, NGTD -F/U sputum cultures -Continue Bronchodilators Qualifiers: Respiratory failure complication: hypoxia Qualified Code(s): J96.21 - Acute and chronic respiratory failure with hypoxia (2) Sepsis Current Visit: No Status: Acute 2/2 pneumonia Tachycardia/Hypoxia/Leukocytosis on admission Now with fever up to 101 last night Switched from Vanc/Cefepime/Clindamycin to Vanc/Meropenem yesterday Hx of MDR bacteremia and PNA Recently treated up at [facility] for Psuedomonal PNA, completed ABX right before readmission here Patient has been Hypotensive but Lactate has been WNL Plan: -Continue with current ABX for now -ID consulted appreciate recs -Will adjust meds once culture results back Qualifiers: Sepsis type: Streptococcus, other Sepsis acute organ dysfunction status: unspecified Qualified Code(s): A40.8 - Other streptococcal sepsis (3) Pneumonia Current Visit: No Status: Ruled-out Plan as above ID consulted placed Cont. ABX Qualifiers: Pneumonia type: due to unspecified organism Laterality: bilateral Lung location: unspecified part of lung Qualified Code(s): J18.9 - Pneumonia, unspecified organism (4) Current chronic use of systemic steroids Current Visit: Yes Status: Acute Patient may be presenting with Adrenal Insufficiency given long goods drier use of steroids now presenting with Hypotension and Hyponatremia Will titrate down on Steroids Was on 50mg Solucortef Q6Hrs titrated down to 25mg Q6Hrs yesterday, will continue (5) COPD (chronic obstructive pulmonary disease) Current Visit: Yes Status: Acute Not in acute exacerbation No evidence of wheezing on exam Will still proceed with Steroids given possibility of Adrenal Insufficiency Qualifiers: Emphysema type: centrilobular Qualified Code(s): J43.2 - Centrilobular emphysema Subjective Principal diagnosis: esrd Interval history: Briefly, Mrs. Parks is a 78F with PMHx of ESRD, CHF, CO, HTN, HLD, CVA and COPD with a tracheostomy x2yrs who is currently admitted for acute on chronic hypoxic respiratory failure and sepsis secondary to pneumonia with history of pseudomonal PNA and Enteroccocal bacteremia. All labs, images and documentation reviewed. Patient seen and examined while on Dialysis today. No events overnight. Patient much more alert this morning. Patient states she feels OK but "Could be better." Denies Chest Pains, fevers, chills. Reports comfort on current vent settings. Objective PUL Vital signs: Last Vital Signs Temp 99.3 F 01/23/19 08:13 Pulse 95 01/23/19 08:13 Resp 24 01/23/19 08:13 BP 140/64 01/23/19 03:52 Pulse Ox 100 01/23/19 08:13 Gen: alert, pale, frail, vitals noted Head: Atraumatic, normocephalic Eyes: opens eyes on command, no spontaneous opening observed, anicteric ENT: Mucous membranes moist Neck: trach collar in place, no evidence of leak CV: Regular Rate, Regular Rhythm, no murmurs Resp: Diminished LLL, Rest of lung field normal, no rhonchi or wheeze, no rales Abd: soft, nontender, nondistended, Bowel Sounds Present Ext: +1 pretibial pitting edema, no clubbing Skin: diffuse ecchymosis, no rash, warm and dry Ventilator Settings Ventilator Settings: Ventilator Settings, Last 8 Hours Ventilator Tidal Volume 450 Setting Ventilator Respiratory Rate 12 Setting Actual Respiratory Rate 20 Positive End Expiratory 8 Pressure Peak Inspiratory Airway 23 Pressure Results - Laboratory Findings CBC and BMP: 01/23/19 04:55 01/23/19 04:55 ABG ABG pH 7.44 pH Units (7.32-7.45) 01/20/19 05:48 ABG pCO2 40 mmHg (35-45) 01/20/19 05:48 ABG pO2 102 mmHg (85-104) 01/20/19 05:48 ABG O2 Saturation 98 % (95-98) 01/20/19 05:48 PT/INR, D-dimer PT 14.9 Seconds (9.4-12.1) H 01/18/19 14:06 Abnormal lab findings: Abnormal lab results WBC 13.8 K/mcL (4.3-11.1) H 01/23/19 04:55 RBC 3.75 M/mcL (3.82-4.97) L 01/23/19 04:55 Hgb 10.1 g/dL (11.5-15.4) L 01/23/19 04:55 Hct 34.5 % (35.3-44.9) L 01/22/19 04:34 MCH 26.9 pg (28.0-33.3) L 01/23/19 04:55 MCHC 28.5 g/dL (31.6-35.5) L 01/23/19 04:55 RDW 20.0 % (11.5-14.5) H 01/23/19 04:55 Neutrophils # 11.7 K/mcL (1.6-8.9) H 01/23/19 04:55 Nucleated RBCs/100 WBC 0.3 /100 WBC (0) H 01/23/19 04:55 Hypochromasia Present (Not Present) A 01/23/19 04:55 Anisocytosis 1+ (Not Present) A 01/23/19 04:55 PT 14.9 Seconds (9.4-12.1) H 01/18/19 14:06 ABG Total CO2 28 mEq/L (20-26) H 01/20/19 05:48 VBG HCO3 29 mEq/L (21-27) H 01/18/19 14:17 Sodium 135 mEq/L (136-145) L 01/22/19 04:34 Potassium 3.4 mEq/L (3.5-5.1) L 01/21/19 06:47 Chloride 95 mEq/L (98-107) L 01/23/19 04:55 Carbon Dioxide 30 mEq/L (23-29) H 01/23/19 04:55 BUN 32 mg/dL (8-23) H 01/22/19 04:34 Creatinine 2.01 mg/dL (0.60-1.20) H 01/23/19 04:55 Est GFR ( Amer) 29 (> 60) L 01/23/19 04:55 Est GFR (Non-Af Amer) 24 (> 60) L 01/23/19 04:55 Glucose 227 mg/dL (70-105) H 01/23/19 04:55 POC Glucose 260 mg/dL (70-99) H 01/23/19 07:48 Lactic Acid 2.3 mmol/L (0.5-2.2) H 01/18/19 14:06 Calcium 8.1 mg/dL (8.6-10.3) L 01/19/19 00:12 Alkaline Phosphatase 120 Units/L (34-104) H 01/20/19 06:54 Troponin I 0.05 ng/mL (< 0.04) H* 01/19/19 04:14 B-Natriuretic Peptide 263 pg/mL (Less than 100) H 01/18/19 14:06 Serum Total Protein 6.3 g/dL (6.4-8.9) L 01/20/19 06:54 Albumin 2.9 g/dL (3.5-5.7) L 01/20/19 06:54 Albumin/Globulin Ratio 0.9 (1.1-2.2) L 01/20/19 06:54 Hep Bs Antibody < 3.10 mIU/mL (10.00-) L 01/19/19 12:43 - Microbiology Findings Microbiology Findings: Microbiology, Last 48 Hours 01/22/19 06:08 Respiratory Culture - Preliminary Right Upper Lobe Lung 01/22/19 06:08 Fungal Culture - Preliminary Right Upper Lobe Lung Culture is incubating. - Clinical Findings Intake & Output: Intake & Output 01/22/19 01/23/19 01/23/19 23:59 07:59 15:59 Intake Total 160 / 760 100 / 100 0 / 100 Output Total 0 / 0 Balance 160 / -1740 100 / 100 0 / 100 Consult Discharge Plan - Plan Referrals: Garcia,Therese Mccormick CNP [Primary Care Provider] - ([facility] does home visits so the family will have to call and make a follow up with her when patient is discharged) <Darryl Huntley W - Last Filed: 01/23/19 12:21> Date of Encounter: 01/23/19 Objective PUL Vital signs: Last Vital Signs Temp 99.0 F 01/23/19 11:50 Pulse 84 01/23/19 11:50 Resp 22 01/23/19 11:50 BP 104/58 01/23/19 11:50 Pulse Ox 96 01/23/19 11:50 Results - Laboratory Findings CBC and BMP: 01/23/19 04:55 01/23/19 04:55 ABG ABG pH 7.44 pH Units (7.32-7.45) 01/20/19 05:48 ABG pCO2 40 mmHg (35-45) 01/20/19 05:48 ABG pO2 102 mmHg (85-104) 01/20/19 05:48 ABG O2 Saturation 98 % (95-98) 01/20/19 05:48 PT/INR, D-dimer PT 14.9 Seconds (9.4-12.1) H 01/18/19 14:06 Abnormal lab findings: Abnormal lab results WBC 13.8 K/mcL (4.3-11.1) H 01/23/19 04:55 RBC 3.75 M/mcL (3.82-4.97) L 01/23/19 04:55 Hgb 10.1 g/dL (11.5-15.4) L 01/23/19 04:55 Hct 34.5 % (35.3-44.9) L 01/22/19 04:34 MCH 26.9 pg (28.0-33.3) L 01/23/19 04:55 MCHC 28.5 g/dL (31.6-35.5) L 01/23/19 04:55 RDW 20.0 % (11.5-14.5) H 01/23/19 04:55 Neutrophils # 11.7 K/mcL (1.6-8.9) H 01/23/19 04:55 Nucleated RBCs/100 WBC 0.3 /100 WBC (0) H 01/23/19 04:55 Hypochromasia Present (Not Present) A 01/23/19 04:55 Anisocytosis 1+ (Not Present) A 01/23/19 04:55 PT 14.9 Seconds (9.4-12.1) H 01/18/19 14:06 ABG Total CO2 28 mEq/L (20-26) H 01/20/19 05:48 VBG HCO3 29 mEq/L (21-27) H 01/18/19 14:17 Sodium 135 mEq/L (136-145) L 01/22/19 04:34 Potassium 3.4 mEq/L (3.5-5.1) L 01/21/19 06:47 Chloride 95 mEq/L (98-107) L 01/23/19 04:55 Carbon Dioxide 30 mEq/L (23-29) H 01/23/19 04:55 BUN 32 mg/dL (8-23) H 01/22/19 04:34 Creatinine 2.01 mg/dL (0.60-1.20) H 01/23/19 04:55 Est GFR ( Amer) 29 (> 60) L 01/23/19 04:55 Est GFR (Non-Af Amer) 24 (> 60) L 01/23/19 04:55 Glucose 227 mg/dL (70-105) H 01/23/19 04:55 POC Glucose 260 mg/dL (70-99) H 01/23/19 07:48 Lactic Acid 2.3 mmol/L (0.5-2.2) H 01/18/19 14:06 Calcium 8.1 mg/dL (8.6-10.3) L 01/19/19 00:12 Alkaline Phosphatase 120 Units/L (34-104) H 01/20/19 06:54 Troponin I 0.05 ng/mL (< 0.04) H* 01/19/19 04:14 B-Natriuretic Peptide 263 pg/mL (Less than 100) H 01/18/19 14:06 Serum Total Protein 6.3 g/dL (6.4-8.9) L 01/20/19 06:54 Albumin 2.9 g/dL (3.5-5.7) L 01/20/19 06:54 Albumin/Globulin Ratio 0.9 (1.1-2.2) L 01/20/19 06:54 Hep Bs Antibody < 3.10 mIU/mL (10.00-) L 01/19/19 12:43 - Microbiology Findings Microbiology Findings: Microbiology, Last 48 Hours 01/22/19 06:08 Respiratory Culture - Preliminary Right Upper Lobe Lung Gram Negative Jose 01/22/19 06:08 Fungal Culture - Preliminary Right Upper Lobe Lung Culture is incubating. - Clinical Findings Intake & Output: Intake & Output 01/22/19 01/23/19 01/23/19 23:59 07:59 15:59 Intake Total 160 / 760 100 / 100 0 / 100 Output Total 0 / 0 Balance 160 / -1740 100 / 100 0 / 100 - Attending Attestation I examined this patient and my medical decision-making was reviewed with the Resident Physician. I agree with the documented findings, disposition and treatment plan as described except to the extent set forth below. We independently had [id number] contact with the patient Patient seen and examined at bedside Labs, radiology, chart personally reviewed. Impression/Recs: Appears to be convalescing in getting back to baseline. She is on pressure support ventilator right now and will be transitioned to trach collar during the day with plan to deflate the cuff and recommend formal speech evaluation. She will need to have trach cuff inflated and the on vent at night as her baseline status is. We will follow-up her micral cultures. Appreciate ID recommendations. I updated her daughter at bedside
[2019-01-23] MEDS: Apixaban 2.5 MG TABLET PO SCH (10:34)
[2019-01-23] MEDS: *HR* Amiodarone 200 MG TABLET PO SCH (10:35)
[2019-01-23] MEDS: Ascorbic Acid 500 MG TABLET PO SCH (10:35)
[2019-01-23] MEDS: Budesonide/Formoterol 160/4.5 1 PUFF INH IH SCH ×2 (10:37→22:11)
--- NOTE | 2019-01-23 11:25 | Palliative Progress Note ---
<Chrissie Man Ignacio - Last Filed: 01/23/19 16:06> Date of Encounter: 01/23/19 Time of Encounter: 07:20 - Assessment and plan (1) Advanced care planning/counseling discussion Current Visit: Yes Status: Acute Assessment and plan: At this time patient is showing an improvement in her mental status. - At this time patient is DNR-CCA - At this time family wishes to continue aggressive treatment up to the need for ICU - At this time the patients and families goals of care are clear. At this time no further management from palliative care is indicated. Palliative Care will sign off. Thank you for allowing us to participate in the care of this patient. (2) Acute and chronic respiratory failure Current Visit: No Status: Chronic Assessment and plan: Pulm following - on ventilator, per notes will be making an attempt to wean off of ventilator Qualifiers: Respiratory failure complication: unspecified whether with hypoxia or hypercapnia Qualified Code(s): J96.20 - Acute and chronic respiratory failure, unspecified whether with hypoxia or hypercapnia (3) Sepsis Current Visit: No Status: Acute Assessment and plan: cultures from bronchoscopy pending. At this time gram negative rods were identified - ID following Qualifiers: Sepsis type: Streptococcus, other Sepsis acute organ dysfunction status: unspecified Qualified Code(s): A40.8 - Other streptococcal sepsis (4) CKD (chronic kidney disease) stage V requiring chronic dialysis Current Visit: No Status: Chronic Assessment and plan: Patient on hemodialysis (5) Ventilator associated pneumonia Current Visit: Yes Status: Acute - Time Spent With Patient Total time spent is greater than 50% in coordination of care (as documented) at patient's floor/unit and/or counseling patient: 25 - 35 minutes - Subjective Interval history: Ms. Parks is a 78 year old female with a past medical history of a-fib, cancer, CHF, COPD, CVA, DM, ESRD-on dialysis, chronic trach, [place], presenting to the hospital with a history of SOB and dyspnea. Patient is still on dialysis. Preliminary results of bronchoscopy show gram negative rods. At this time patient was alert, and was responsive to this provider. She was still on ventilator. She made attempts at speech and also was able to communicate through hand gestures. She denies any pain at this time and reports that she is feeling better. - Constitutional Vitals: Abnormal lab results WBC 13.8 K/mcL (4.3-11.1) H 01/23/19 04:55 RBC 3.75 M/mcL (3.82-4.97) L 01/23/19 04:55 Hgb 10.1 g/dL (11.5-15.4) L 01/23/19 04:55 Hct 34.5 % (35.3-44.9) L 01/22/19 04:34 MCH 26.9 pg (28.0-33.3) L 01/23/19 04:55 MCHC 28.5 g/dL (31.6-35.5) L 01/23/19 04:55 RDW 20.0 % (11.5-14.5) H 01/23/19 04:55 Neutrophils # 11.7 K/mcL (1.6-8.9) H 01/23/19 04:55 Nucleated RBCs/100 WBC 0.3 /100 WBC (0) H 01/23/19 04:55 Hypochromasia Present (Not Present) A 01/23/19 04:55 Anisocytosis 1+ (Not Present) A 01/23/19 04:55 PT 14.9 Seconds (9.4-12.1) H 01/18/19 14:06 ABG Total CO2 28 mEq/L (20-26) H 01/20/19 05:48 VBG HCO3 29 mEq/L (21-27) H 01/18/19 14:17 Sodium 135 mEq/L (136-145) L 01/22/19 04:34 Potassium 3.4 mEq/L (3.5-5.1) L 01/21/19 06:47 Chloride 95 mEq/L (98-107) L 01/23/19 04:55 Carbon Dioxide 30 mEq/L (23-29) H 01/23/19 04:55 BUN 32 mg/dL (8-23) H 01/22/19 04:34 Creatinine 2.01 mg/dL (0.60-1.20) H 01/23/19 04:55 Est GFR ( Amer) 29 (> 60) L 01/23/19 04:55 Est GFR (Non-Af Amer) 24 (> 60) L 01/23/19 04:55 Glucose 227 mg/dL (70-105) H 01/23/19 04:55 POC Glucose 260 mg/dL (70-99) H 01/23/19 07:48 Lactic Acid 2.3 mmol/L (0.5-2.2) H 01/18/19 14:06 Calcium 8.1 mg/dL (8.6-10.3) L 01/19/19 00:12 Alkaline Phosphatase 120 Units/L (34-104) H 01/20/19 06:54 Troponin I 0.05 ng/mL (< 0.04) H* 01/19/19 04:14 B-Natriuretic Peptide 263 pg/mL (Less than 100) H 01/18/19 14:06 Serum Total Protein 6.3 g/dL (6.4-8.9) L 01/20/19 06:54 Albumin 2.9 g/dL (3.5-5.7) L 01/20/19 06:54 Albumin/Globulin Ratio 0.9 (1.1-2.2) L 01/20/19 06:54 Hep Bs Antibody < 3.10 mIU/mL (10.00-) L 01/19/19 12:43 - Head Head exam: Present: atraumatic, normocephalic - Neck Neck exam: Present: full ROM - Respiratory Additional comments: coarse breath sounds bilaterally on ventilator through trach - Cardiovascular Cardiovascular exam: Present: RRR, +S1, +S2 - GI/Abdominal GI/Abdominal exam: Present: normal bowel sounds, soft. Absent: tenderness - Extremities Exam Extremities exam: Absent: pedal edema Additional comments: multiple skin tears on all 4 extremities with large areas of ecchymosis, likely chronic - Neurological Exam Neurological exam: Present: alert Palliative Quality Palliative Quality: Screen for Code Status: Yes, Screen for Goals of Care: Yes, Screen for Pain: Yes, Screen for Nausea/Vomitting: NA Code Status: 01/18/19 17:33 Resuscitation Status: Active [RES] Routine Comment: Resuscitation Status: [id number] 01/21/19 10:05 Resuscitation Status: Active [RES] Routine Comment: Resuscitation Status: DNR-Comfort Care 01/21/19 11:45 Resuscitation Status: Active [RES] Routine Comment: Resuscitation Status: DNR-Comfort Care-Arrest 01/21/19 11:47 DNR [Resuscitation Status: Active] [RES] Routine Comment: Resuscitation Status: DNR-Comfort Care-Arrest - Labs CBC & Chem 7: 01/23/19 04:55 01/23/19 04:55 Labs: Laboratory Results - last 24 hr 01/21/19 01/22/19 01/22/19 20:38 11:30 16:52 WBC RBC Hgb Hct MCV MCH MCHC RDW Plt Count MPV Immature Gran % Seg Neutrophils % Lymphocytes % Monocytes % Eosinophils % Basophils % Neutrophils # Lymphocytes # Monocytes # Eosinophils # Basophils # Nucleated RBCs/100 WBC Platelet Estimate Hypochromasia Anisocytosis Sodium Potassium Chloride Carbon Dioxide BUN Creatinine Est GFR ( Amer) Est GFR (Non-Af Amer) BUN/Creatinine Ratio Glucose POC Glucose 208 H 110 H 258 H Calculated Osmolality Calcium Phosphorus Total Bilirubin AST ALT Alkaline Phosphatase Serum Total Protein Albumin Globulin Albumin/Globulin Ratio Random Vancomycin 01/22/19 01/23/19 01/23/19 19:55 04:55 04:55 WBC 13.8 H RBC 3.75 L Hgb 10.1 L Hct 35.4 MCV 94.4 MCH 26.9 L MCHC 28.5 L RDW 20.0 H Plt Count 222 MPV 10.8 Immature Gran % 3.0 Seg Neutrophils % 84.6 Lymphocytes % 7.4 Monocytes % 4.6 Eosinophils % 0.1 Basophils % 0.3 Neutrophils # 11.7 H Lymphocytes # 1.0 Monocytes # 0.6 Eosinophils # 0.0 Basophils # 0.0 Nucleated RBCs/100 WBC 0.3 H Platelet Estimate Normal Hypochromasia Present A Anisocytosis 1+ A Sodium Potassium Chloride Carbon Dioxide BUN Creatinine Est GFR ( Amer) Est GFR (Non-Af Amer) BUN/Creatinine Ratio Glucose POC Glucose 216 H Calculated Osmolality Calcium Phosphorus Total Bilirubin AST ALT Alkaline Phosphatase Serum Total Protein Albumin Globulin Albumin/Globulin Ratio Random Vancomycin 01/23/19 01/23/19 04:55 07:48 WBC RBC Hgb Hct MCV MCH MCHC RDW Plt Count MPV Immature Gran % Seg Neutrophils % Lymphocytes % Monocytes % Eosinophils % Basophils % Neutrophils # Lymphocytes # Monocytes # Eosinophils # Basophils # Nucleated RBCs/100 WBC Platelet Estimate Hypochromasia Anisocytosis Sodium 140 Potassium 3.7 Chloride 95 L Carbon Dioxide 30 H BUN 19 Creatinine 2.01 H Est GFR ( Amer) 29 L Est GFR (Non-Af Amer) 24 L BUN/Creatinine Ratio 9 Glucose 227 H POC Glucose 260 H Calculated Osmolality 299 Calcium 9.9 Phosphorus 3.0 Total Bilirubin 0.6 AST 16 ALT 8 Alkaline Phosphatase 96 Serum Total Protein 6.4 Albumin 3.5 Globulin 2.9 Albumin/Globulin Ratio 1.2 Random Vancomycin - ABG Interpretation ABG results: ABG ABG pH 7.44 pH Units (7.32-7.45) 01/20/19 05:48 ABG pCO2 40 mmHg (35-45) 01/20/19 05:48 ABG pO2 102 mmHg (85-104) 01/20/19 05:48 ABG O2 Saturation 98 % (95-98) 01/20/19 05:48 PT/INR, D-dimer PT 14.9 Seconds (9.4-12.1) H 01/18/19 14:06 Palliative Scale - Palliative Performance Scale How ambulatory is this patient?: Mainly in bed What is patient's level of activity and evidence of disease?: Unable to do any work, Extensive disease How much self-care assistance does patient require?: Mainly assistance How much oral intake does the patient have?: Normal or reduced What is this patient's level of consciousness?: Full or drowsy with or without confusion Palliative Performance Score: 40 % Consult Discharge Plan - Plan Referrals: Therese Garcia SPINDLE CARVER [Primary Care Provider] - (Therese Garcia does home visits so the family will have to call and make a follow up with her when patient is discharged) <Valeria Chavez - Last Filed: 01/24/19 12:14> Date of Encounter: 01/24/19 - Time Spent With Patient Total time spent is greater than 50% in coordination of care (as documented) at patient's floor/unit and/or counseling patient: - Constitutional Vitals: Abnormal lab results WBC 15.0 K/mcL (4.3-11.1) H 01/24/19 00:47 RBC 3.75 M/mcL (3.82-4.97) L 01/23/19 04:55 Hgb 10.7 g/dL (11.5-15.4) L 01/24/19 00:47 Hct 34.5 % (35.3-44.9) L 01/22/19 04:34 MCH 27.0 pg (28.0-33.3) L 01/24/19 00:47 MCHC 28.8 g/dL (31.6-35.5) L 01/24/19 00:47 RDW 20.1 % (11.5-14.5) H 01/24/19 00:47 Neutrophils # 11.7 K/mcL (1.6-8.9) H 01/23/19 04:55 Nucleated RBCs/100 WBC 0.3 /100 WBC (0) H 01/23/19 04:55 Hypochromasia Present (Not Present) A 01/23/19 04:55 Anisocytosis 1+ (Not Present) A 01/23/19 04:55 PT 14.9 Seconds (9.4-12.1) H 01/18/19 14:06 ABG Total CO2 28 mEq/L (20-26) H 01/20/19 05:48 VBG HCO3 29 mEq/L (21-27) H 01/18/19 14:17 Sodium 135 mEq/L (136-145) L 01/22/19 04:34 Potassium 2.9 mEq/L (3.5-5.1) L 01/24/19 00:47 Chloride 95 mEq/L (98-107) L 01/23/19 04:55 Carbon Dioxide 30 mEq/L (23-29) H 01/23/19 04:55 BUN 32 mg/dL (8-23) H 01/24/19 00:47 Creatinine 2.85 mg/dL (0.60-1.20) H 01/24/19 00:47 Est GFR ( Amer) 20 (> 60) L 01/24/19 00:47 Est GFR (Non-Af Amer) 16 (> 60) L 01/24/19 00:47 Glucose 188 mg/dL (70-105) H 01/24/19 00:47 POC Glucose 222 mg/dL (70-99) H 01/24/19 00:10 Calculated Osmolality 306 (280-300) H 01/24/19 00:47 Lactic Acid 2.3 mmol/L (0.5-2.2) H 01/18/19 14:06 Calcium 10.6 mg/dL (8.6-10.3) H 01/24/19 00:47 Alkaline Phosphatase 120 Units/L (34-104) H 01/20/19 06:54 Troponin I 0.05 ng/mL (< 0.04) H* 01/19/19 04:14 B-Natriuretic Peptide 263 pg/mL (Less than 100) H 01/18/19 14:06 Serum Total Protein 6.3 g/dL (6.4-8.9) L 01/20/19 06:54 Albumin 2.9 g/dL (3.5-5.7) L 01/20/19 06:54 Albumin/Globulin Ratio 0.9 (1.1-2.2) L 01/20/19 06:54 Hep Bs Antibody < 3.10 mIU/mL (10.00-) L 01/19/19 12:43 - Attending Attestation I examined this patient and my medical decision-making was reviewed with the Resident Physician. I agree with the documented findings, disposition and treatment plan as described except to the extent set forth below. Palliative Quality Code Status: 01/18/19 17:33 Resuscitation Status: Active [RES] Routine Comment: Resuscitation Status: [id number] 01/21/19 10:05 Resuscitation Status: Active [RES] Routine Comment: Resuscitation Status: DNR-Comfort Care 01/21/19 11:45 Resuscitation Status: Active [RES] Routine Comment: Resuscitation Status: DNR-Comfort Care-Arrest 01/21/19 11:47 DNR [Resuscitation Status: Active] [RES] Routine Comment: Resuscitation Status: DNR-Comfort Care-Arrest - Labs CBC & Chem 7: 01/24/19 00:47 01/24/19 00:47 Labs: Laboratory Results - last 24 hr 01/23/19 01/23/19 01/23/19 11:54 16:52 16:53 WBC RBC Hgb Hct MCV MCH MCHC RDW Plt Count MPV Sodium Potassium Chloride Carbon Dioxide BUN Creatinine Est GFR ( Amer) Est GFR (Non-Af Amer) BUN/Creatinine Ratio Glucose POC Glucose 137 H 403 H* 380 H Calculated Osmolality Calcium Random Vancomycin 01/23/19 01/24/19 01/24/19 19:13 00:10 00:47 WBC RBC Hgb Hct MCV MCH MCHC RDW Plt Count MPV Sodium Potassium Chloride Carbon Dioxide BUN Creatinine Est GFR ( Amer) Est GFR (Non-Af Amer) BUN/Creatinine Ratio Glucose POC Glucose 400 H 222 H Calculated Osmolality Calcium Random Vancomycin 20 01/24/19 01/24/19 00:47 00:47 WBC 15.0 H RBC 3.96 Hgb 10.7 L Hct 37.2 MCV 93.9 MCH 27.0 L MCHC 28.8 L RDW 20.1 H Plt Count 262 MPV 10.5 Sodium 142 Potassium 2.9 L Chloride 98 Carbon Dioxide 29 BUN 32 H Creatinine 2.85 H Est GFR ( Amer) 20 L Est GFR (Non-Af Amer) 16 L BUN/Creatinine Ratio 11 Glucose 188 H POC Glucose Calculated Osmolality 306 H Calcium 10.6 H Random Vancomycin - ABG Interpretation ABG results: ABG ABG pH 7.44 pH Units (7.32-7.45) 01/20/19 05:48 ABG pCO2 40 mmHg (35-45) 01/20/19 05:48 ABG pO2 102 mmHg (85-104) 01/20/19 05:48 ABG O2 Saturation 98 % (95-98) 01/20/19 05:48 PT/INR, D-dimer PT 14.9 Seconds (9.4-12.1) H 01/18/19 14:06
--- NOTE | 2019-01-23 11:53 | Nephrology Progress Note ---
Date of Encounter: 01/23/19 Time of Encounter: 11:50 - Assessment and Plan (1) ESRD (end stage renal disease) on dialysis Current Visit: No Status: Chronic HD MWF in [place] with Dr. Peraza HD aborted today due to hypotension. HD complicated due to hypotension, palliative on board however family members continue to want aggressive care. Midodrine increased to 10 mg PO TID. Renal vitamins. Renal dose medications. Renal diet. Additional dialysis and ultrafiltration as needed. (2) Anemia Current Visit: No Status: Chronic Transfusion per the primary team. Hgb is 10.1 stable and at goal. Qualifiers: Anemia type: unspecified type Qualified Code(s): D64.9 - Anemia, unspecified (3) Diabetes mellitus Current Visit: No Status: Chronic Per primary. Qualifiers: Diabetes mellitus type: type 2 Diabetes mellitus nursing home insulin use: with curb setter helper use Diabetes mellitus complication status: with kidney complications Diabetes mellitus complication detail: with chronic kidney disease Chronic kidney disease stage: on chronic dialysis Qualified Code(s): E11.22 - Type 2 diabetes mellitus with diabetic chronic kidney disease; N18.6 - End stage renal disease; Z79.4 - payroll clerk (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 (4) Hypertension Current Visit: No Status: Chronic Titrate blood pressure medications as needed. Qualifiers: Hypertension type: essential hypertension Qualified Code(s): I10 - Essential (primary) hypertension (5) Acute and chronic respiratory failure Current Visit: Yes Status: Acute Patient has a trach and is currently on the vent. Management per the primary team. Qualifiers: Respiratory failure complication: hypoxia Qualified Code(s): J96.21 - Acute and chronic respiratory failure with hypoxia Subjective Principal diagnosis: esrd Interval history: Patient seen and examined in HD, aborted due to hypotension despite Midodrine and Albumin. Daughter at bedside. Objective - Vital Signs Vital signs: Vital Signs Temp Pulse Resp BP Pulse Ox 01/23/19 10:37 23 100 01/23/19 08:13 99.3 F 95 24 100 01/23/19 08:00 95 100 01/23/19 06:36 99.3 F 89 19 100 01/23/19 03:52 22 140/64 98 01/23/19 03:35 101.5 F H 98 23 140/64 99 01/22/19 23:44 100.5 F H 93 27 124/62 96 01/22/19 21:50 30 118/71 97 01/22/19 19:52 101.1 F H 90 27 118/71 98 01/22/19 16:47 99.4 F 92 16 109/85 100 01/22/19 16:36 27 108/67 99 01/22/19 13:45 97.8 F 17 111/69 01/22/19 13:20 99/62 01/22/19 13:05 115/61 01/22/19 12:50 107/60 01/22/19 12:35 120/67 01/22/19 12:20 102/54 01/22/19 12:05 120/67 Intake and Output 01/22/19 01/23/19 01/23/19 23:59 07:59 15:59 Intake Total 160 / 760 100 / 100 0 / 100 Output Total 0 / 0 Balance 160 / -1740 100 / 100 0 / 100 Intake: IV Fluids 100 / 200 100 / 100 Ofirmev 1,000 mg/100 ml 1,000 100 / 100 mg In 100 ml @ 400 mls/hr IVPB ONCE ONE Rx#:[id number] Merrem 1,000 MG In 0.9 % Sodium 100 / 100 Chloride (Mini-Bag +) 100 ML @ 200 mls/hr IVPB [facility] Rx#: [id number] Oral 60 / 60 0 / 0 0 / 0 Output: Urine 0 / 0 Other: Meal Dinner Percent of Meal Consumed 0% Stool Size Moderate Stool Consistency loose Stool Characteristics Mucoid Stool Color Brown # Bowel Movement Diapers 1 Blood Glucose* 216 260 - General Appearance General appearance: Present: frail EENT: Present: ATNC, hearing intact, vision intact Neck: Present: supple Respiratory: Present: clear Cardiology: Present: no edema, normal S1, normal S2 Dialysis Vascular Access: Venous Catheter (DRSG C/D/I) Gastrointestinal: Present: normoactive bowel sounds, no tenderness, no guarding Integumentary: Present: no rash, warm and dry Additional Comments: Alert to self. Musculoskeletal: Present: no deformities, no erythema Psychiatric: Present: mood/affect appropriate, cooperative - Lab 01/23/19 04:55 01/23/19 04:55 Most recent lab results 01/23/19 04:55 Calcium 9.9 Phosphorus 3.0 Consult Discharge Plan - Plan Referrals: Therese Garcia CNP [Primary Care Provider] - (Therese Garcia does home visits so the family will have to call and make a follow up with her when patient is discharged)
--- NOTE | 2019-01-23 15:34 | Infectious Disease Progress No ---
ID Progress Note Date of Encounter: 01/23/19 Time of Encounter: 15:31 - Subjective Subjective: Patient seen and examined during dialysis. Both daughters present. s/p bronchoscopy. clinically unchanged. ROS limited due to her mentation but she is donig much better, much more awake. Daughter is at bedside. today I was informed that she didnt leave home on IV antibiotics, she was discharged after "finishing" two weeks of meropenem. Within a week apparently, patient start be coming symptomatic again and she called the ID physician from [facility] and then he restarted meropenem on 12/26 for 14 more days. VS noted labs noted - Objective CBC & Chem 7: 01/23/19 04:55 01/23/19 04:55 - Exam Vitals: Temp Pulse Resp BP Pulse Ox 99.0 F 91 20 104/58 96 01/23/19 11:50 01/23/19 13:15 01/23/19 13:15 01/23/19 11:50 01/23/19 13:15 Exam: GENERAL: Comfortable. Laying in bed NAD HEENT: JESSICA, EOMI LUNGS: coarse breath sounds bilaterally. some wheezing. on trach collar today and seems better CV: RRR, S1 S2 ABDOMEN: Soft, nontender, + bowel sounds EXT: Adequate perfusion. diffuse edema NEURO: alert responds with yes/no - Assessment and Plan (1) Sepsis Current Visit: No Status: Acute had 3 SIRS criteria on 01/21 likely due to pneumonia Qualifiers: Sepsis type: Streptococcus, other Sepsis acute organ dysfunction status: unspecified Qualified Code(s): A40.8 - Other streptococcal sepsis SNOMED Code(s): 54684647 (2) HCAP (healthcare-associated pneumonia) Current Visit: No Status: Acute previous organism is PSEA R: cefepime, levofloxacin Treated for 4 weeks with IV meropenem from 12/06-01/04 symptoms returned 1 week after stopping antibiotics CT concerning for multifocal pneumonia with new cavitary lesion in the right apex with air fluid level blood cultures negative to date SNOMED Code(s): 100629211, 834436750 (3) Cavitary lesion of lung Current Visit: No Status: Acute etiology not clear pulmonary abscess vs fungal? she did have aspergillus grow from sputum in September 2018 appreciate pulmonary input SNOMED Code(s): 470052729 (4) CKD (chronic kidney disease) stage V requiring chronic dialysis Current Visit: No Status: Chronic on dialysis MWF previous dialysis cath was infected with enterococcus s/p removal and placement of another permacath after negative cultures x 5 days per family, patient was supposed to be on vanc after dialsysi through next week (3 more doses) SNOMED Code(s): 437031022 (5) Diarrhea Current Visit: No Status: Chronic etiology not clear likely due to use of antibioitcs C diff and stool GI panel negative Qualifiers: Diarrhea type: unspecified type Qualified Code(s): R19.7 - Diarrhea, unspecified SNOMED Code(s): 50031037 (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 Current Visit: No Status: Resolved s/p mastectomy SNOMED Code(s): 567981141 (7) CHF (congestive heart failure) Current Visit: No Status: Chronic Qualifiers: Heart failure type: diastolic Heart failure chronicity: unspecified Qualified Code(s): I50.30 - Unspecified diastolic (congestive) heart failure SNOMED Code(s): 94750141 (8) COPD (chronic obstructive pulmonary disease) Current Visit: No Status: Chronic Qualifiers: COPD type: unspecified COPD Qualified Code(s): J44.9 - Chronic obstructive pulmonary disease, unspecified SNOMED Code(s): 87688024 (9) Insulin dependent type 2 diabetes mellitus Current Visit: No Status: Chronic SNOMED Code(s): 437481542 (10) Chronic respiratory failure Current Visit: Yes Status: Acute SNOMED Code(s): 06018592 Consult Discharge Plan - Plan Referrals: Therese Garcia WATCH PARTS GRINDER [Primary Care Provider] - (Therese Garcia does home visits so the family will have to call and make a follow up with her when patient is discharged)
[2019-01-23] MEDS: Meropenem 1,000 MG in 0.9 % Sodium Chloride Mini Bag 100 ML IVPB SCH (17:31)
[2019-01-23] MEDS: Renal Vitamin 1 CAP CAPSULE PO SCH (17:36)
[2019-01-23] MEDS ORDERED: Dextrose Gel 15 GM/37.5 ML TUBE PO PRN ×2 (20:02)
[2019-01-23] MEDS ORDERED: D5% in Water 1,000 ML IVC PRN (20:02)
[2019-01-23] MEDS ORDERED: *HR* Dextrose 50 % in Water (Syg) 50 ML SYRINGE IVP PRN (20:02)
[2019-01-23] MEDS: Insulin DETEMIR 100 UNIT/ML X5UNITS SQ SCH (20:47)
[2019-01-24] MEDS ORDERED: Insulin LISPRO 300 UNITS/3 ML VIAL SQ SCH
[2019-01-24] MEDS: Hydrocortisone Sodium Succ 100 MG/2 ML VIAL IVP SCH ×4 (00:23→18:23)
[2019-01-24 01:37] LABS: Hematocrit 37.2 % (35.3-44.9); Hemoglobin 10.7 g/dL (11.5-15.4); Mean Corpuscular HGB Conc 28.8 g/dL (31.6-35.5); Mean Corpuscular Volume 93.9 fL (83.0-100.0); Mean Platelet Volume 10.5 fL (9.4-12.4); Platelet Count 262 K/mcL (140-400); Red Blood Count 3.96 M/mcL (3.82-4.97); Red Cell Distribution Width 20.1 % (11.5-14.5)
[2019-01-24 01:55] LABS: Calcium 10.6 mg/dL (8.6-10.3); Potassium 2.9 mEq/L (3.5-5.1)
[2019-01-24] MEDS: Levalbuterol Neb 1.25 MG/3 ML IH SCH ×4 (03:24→22:38)
[2019-01-24] MEDS: Insulin LISPRO 300 UNITS/3 ML VIAL SQ SCH ×3 (05:58→17:13)
[2019-01-24] MEDS ORDERED: 0.9 % Sodium Chloride 250 ML IVC PRN (07:44)
[2019-01-24] MEDS ORDERED: *HR* Heparin 10,000 UNIT/10 ML VIAL IV PRN ×2 (07:44)
[2019-01-24] MEDS ORDERED: Potassium Chloride Elixir 20 MEQ/15 ML UDC PO ONE (08:30)
--- NOTE | 2019-01-24 08:56 | Pulmonology Progress Note ---
<Deng Freeman M - Last Filed: 01/24/19 15:41> Date of Encounter: 01/24/19 Time of Encounter: 09:00 Assessment and Plan (1) Acute and chronic respiratory failure Current Visit: Yes Status: Acute Patient presents with acute on chronic Hypoxic Respiratory Failure Baseline 4L O2 Trach Collar during day with nighttime pressure support Currently unable to take patient off ventilator; PEEP 8, FiO2 50% Etiology of V/Q mismatch 2/2 Pneumonia CXR on admission showed RUL consolidation CT Chest 01/21 revealed cavitary lesion with air-fluid levels in [place] of Right Lung Patient was on Vanc/Cefepime/Clinda, switched 01/20 to Vanc/Merropenem Pulmonary Edema also possibly contributing to worsening respiratory status given obvious fluid overload in setting of ESRD 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, 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 Plan: -Continue with attempts at trach collar as much as tolerable -Eventual Goal of Trach Collar during day and Pressure Support HS -F/U BAL cultures/cytology -Respiratory Infection Panel negative -Continue Bronchodilators -ABX per ID (2) Sepsis Current Visit: No Status: Acute 2/2 pneumonia Tachycardia/Hypoxia/Leukocytosis on admission Now with fever up to 101 last night Switched from Vanc/Cefepime/Clindamycin to Vanc/Meropenem yesterday Hx of MDR bacteremia and PNA Recently treated up at [facility] for Psuedomonal PNA, completed ABX right before readmission here Patient has been Hypotensive but Lactate has been WNL BP stable since stress dose steroid, still febrile Plan: -Continue with current ABX -ID consulted appreciate recs -Will adjust meds pending sensitivity and ID recs (3) Pneumonia Current Visit: No Status: Ruled-out Plan as above ID consulted placed Cont. ABX (4) Current chronic use of systemic steroids Current Visit: Yes Status: Acute Patient may be presenting with Adrenal Insufficiency given fpc use of steroids now presenting with Hypotension and Hyponatremia Will titrate down on Steroids Was on 50mg Solucortef Q6Hrs titrated down to 25mg Q6Hrs yesterday, will continue (5) COPD (chronic obstructive pulmonary disease) Current Visit: Yes Status: Acute Not in acute exacerbation No evidence of wheezing on exam Will still proceed with Steroids given possibility of Adrenal Insufficiency Subjective Principal diagnosis: esrd Interval history: Briefly, Mrs. Parks is a 78F with PMHx of ESRD, CHF, PR, HTN, HLD, CVA and COPD with a tracheostomy x2yrs who is currently admitted for acute on chronic hypoxic respiratory failure and sepsis secondary to pneumonia with history of pseudomonal PNA and Enteroccocal bacteremia. All labs, images and documentation reviewed. Patient seen and examined today. Alert this morning. No new complaints. Tolerated well the Trach Collar yesterday. Total 1.5Hrs on trach collar before getting somewhat tired and placed back on pressure support. Vitals good today, plan for dialysis later today. Objective PUL Vital signs: Last Vital Signs Temp 99.5 F 01/24/19 07:30 Pulse 90 01/24/19 07:30 Resp 18 01/24/19 07:30 BP 118/69 01/24/19 07:30 Pulse Ox 96 01/24/19 07:30 Gen: alert, pale, frail, vitals noted Head: Atraumatic, normocephalic Eyes: opens eyes on command, no spontaneous opening observed, anicteric ENT: Mucous membranes moist Neck: trach collar in place, no evidence of leak CV: Regular Rate, Regular Rhythm, no murmurs Resp: Diminished LLL, Rest of lung field normal, no rhonchi or wheeze, no rales Abd: soft, nontender, nondistended, Bowel Sounds Present Ext: +1 pretibial pitting edema, no clubbing Skin: diffuse ecchymosis, no rash, warm and dry Ventilator Settings Ventilator Settings: Ventilator Settings, Last 8 Hours Ventilator Tidal Volume 450 Setting Ventilator Respiratory Rate 12 Setting Actual Respiratory Rate 20 Positive End Expiratory 8 Pressure Peak Inspiratory Airway 23 Pressure Results - Laboratory Findings CBC and BMP: 01/24/19 00:47 01/24/19 00:47 ABG ABG pH 7.44 pH Units (7.32-7.45) 01/20/19 05:48 ABG pCO2 40 mmHg (35-45) 01/20/19 05:48 ABG pO2 102 mmHg (85-104) 01/20/19 05:48 ABG O2 Saturation 98 % (95-98) 01/20/19 05:48 PT/INR, D-dimer PT 14.9 Seconds (9.4-12.1) H 01/18/19 14:06 Abnormal lab findings: Abnormal lab results WBC 15.0 K/mcL (4.3-11.1) H 01/24/19 00:47 RBC 3.75 M/mcL (3.82-4.97) L 01/23/19 04:55 Hgb 10.7 g/dL (11.5-15.4) L 01/24/19 00:47 Hct 34.5 % (35.3-44.9) L 01/22/19 04:34 MCH 27.0 pg (28.0-33.3) L 01/24/19 00:47 MCHC 28.8 g/dL (31.6-35.5) L 01/24/19 00:47 RDW 20.1 % (11.5-14.5) H 01/24/19 00:47 Neutrophils # 11.7 K/mcL (1.6-8.9) H 01/23/19 04:55 Nucleated RBCs/100 WBC 0.3 /100 WBC (0) H 01/23/19 04:55 Hypochromasia Present (Not Present) A 01/23/19 04:55 Anisocytosis 1+ (Not Present) A 01/23/19 04:55 PT 14.9 Seconds (9.4-12.1) H 01/18/19 14:06 ABG Total CO2 28 mEq/L (20-26) H 01/20/19 05:48 VBG HCO3 29 mEq/L (21-27) H 01/18/19 14:17 Sodium 135 mEq/L (136-145) L 01/22/19 04:34 Potassium 2.9 mEq/L (3.5-5.1) L 01/24/19 00:47 Chloride 95 mEq/L (98-107) L 01/23/19 04:55 Carbon Dioxide 30 mEq/L (23-29) H 01/23/19 04:55 BUN 32 mg/dL (8-23) H 01/24/19 00:47 Creatinine 2.85 mg/dL (0.60-1.20) H 01/24/19 00:47 Est GFR ( Amer) 20 (> 60) L 01/24/19 00:47 Est GFR (Non-Af Amer) 16 (> 60) L 01/24/19 00:47 Glucose 188 mg/dL (70-105) H 01/24/19 00:47 POC Glucose 222 mg/dL (70-99) H 01/24/19 00:10 Calculated Osmolality 306 (280-300) H 01/24/19 00:47 Lactic Acid 2.3 mmol/L (0.5-2.2) H 01/18/19 14:06 Calcium 10.6 mg/dL (8.6-10.3) H 01/24/19 00:47 Alkaline Phosphatase 120 Units/L (34-104) H 01/20/19 06:54 Troponin I 0.05 ng/mL (< 0.04) H* 01/19/19 04:14 B-Natriuretic Peptide 263 pg/mL (Less than 100) H 01/18/19 14:06 Serum Total Protein 6.3 g/dL (6.4-8.9) L 01/20/19 06:54 Albumin 2.9 g/dL (3.5-5.7) L 01/20/19 06:54 Albumin/Globulin Ratio 0.9 (1.1-2.2) L 01/20/19 06:54 Hep Bs Antibody < 3.10 mIU/mL (10.00-) L 01/19/19 12:43 - Microbiology Findings Microbiology Findings: Microbiology, Last 48 Hours 01/18/19 14:06 Blood Culture - Final Peripheral Venipuncture No growth. Final report. 01/18/19 14:06 Blood Culture - Final Peripheral Venipuncture No growth. Final report. 01/22/19 06:08 Acid Fast Stain - Final Right Upper Lobe Lung 01/22/19 06:08 Respiratory Culture - Preliminary Right Upper Lobe Lung Gram Negative Jose 01/22/19 06:08 Fungal Culture - Preliminary Right Upper Lobe Lung Culture is incubating. - Clinical Findings Intake & Output: Intake & Output 01/23/19 01/24/19 01/24/19 23:59 07:59 15:59 Intake Total 20 / 840 100 / 100 Output Total 0 / 0 Balance 20 / -1110 100 / 100 Consult Discharge Plan - Plan Referrals: Therese Garcia ACCOUNTS ADJUSTABLE CLERK [Primary Care Provider] - (Therese Garcia does home visits so the family will have to call and make a follow up with her when patient is discharged) <Darryl Huntley - Last Filed: 01/24/19 15:47> Date of Encounter: 01/24/19 Objective PUL Vital signs: Last Vital Signs Temp 98.1 F 01/24/19 13:30 Pulse 90 01/24/19 07:30 Resp 18 01/24/19 13:30 BP 135/72 01/24/19 13:30 Pulse Ox 96 01/24/19 07:30 Ventilator Settings Ventilator Settings: Ventilator Settings, Last 8 Hours Ventilator Tidal Volume 450 Setting Ventilator Respiratory Rate 12 Setting Positive End Expiratory 8 Pressure Results - Laboratory Findings CBC and BMP: 01/24/19 00:47 01/24/19 00:47 ABG ABG pH 7.44 pH Units (7.32-7.45) 01/20/19 05:48 ABG pCO2 40 mmHg (35-45) 01/20/19 05:48 ABG pO2 102 mmHg (85-104) 01/20/19 05:48 ABG O2 Saturation 98 % (95-98) 01/20/19 05:48 PT/INR, D-dimer PT 14.9 Seconds (9.4-12.1) H 01/18/19 14:06 Abnormal lab findings: Abnormal lab results WBC 15.0 K/mcL (4.3-11.1) H 01/24/19 00:47 RBC 3.75 M/mcL (3.82-4.97) L 01/23/19 04:55 Hgb 10.7 g/dL (11.5-15.4) L 01/24/19 00:47 Hct 34.5 % (35.3-44.9) L 01/22/19 04:34 MCH 27.0 pg (28.0-33.3) L 01/24/19 00:47 MCHC 28.8 g/dL (31.6-35.5) L 01/24/19 00:47 RDW 20.1 % (11.5-14.5) H 01/24/19 00:47 Neutrophils # 11.7 K/mcL (1.6-8.9) H 01/23/19 04:55 Nucleated RBCs/100 WBC 0.3 /100 WBC (0) H 01/23/19 04:55 Hypochromasia Present (Not Present) A 01/23/19 04:55 Anisocytosis 1+ (Not Present) A 01/23/19 04:55 PT 14.9 Seconds (9.4-12.1) H 01/18/19 14:06 ABG Total CO2 28 mEq/L (20-26) H 01/20/19 05:48 VBG HCO3 29 mEq/L (21-27) H 01/18/19 14:17 Sodium 135 mEq/L (136-145) L 01/22/19 04:34 Potassium 2.9 mEq/L (3.5-5.1) L 01/24/19 00:47 Chloride 95 mEq/L (98-107) L 01/23/19 04:55 Carbon Dioxide 30 mEq/L (23-29) H 01/23/19 04:55 BUN 32 mg/dL (8-23) H 01/24/19 00:47 Creatinine 2.85 mg/dL (0.60-1.20) H 01/24/19 00:47 Est GFR ( Amer) 20 (> 60) L 01/24/19 00:47 Est GFR (Non-Af Amer) 16 (> 60) L 01/24/19 00:47 Glucose 188 mg/dL (70-105) H 01/24/19 00:47 POC Glucose 222 mg/dL (70-99) H 01/24/19 00:10 Calculated Osmolality 306 (280-300) H 01/24/19 00:47 Lactic Acid 2.3 mmol/L (0.5-2.2) H 01/18/19 14:06 Calcium 10.6 mg/dL (8.6-10.3) H 01/24/19 00:47 Alkaline Phosphatase 120 Units/L (34-104) H 01/20/19 06:54 Troponin I 0.05 ng/mL (< 0.04) H* 01/19/19 04:14 B-Natriuretic Peptide 263 pg/mL (Less than 100) H 01/18/19 14:06 Serum Total Protein 6.3 g/dL (6.4-8.9) L 01/20/19 06:54 Albumin 2.9 g/dL (3.5-5.7) L 01/20/19 06:54 Albumin/Globulin Ratio 0.9 (1.1-2.2) L 01/20/19 06:54 Hep Bs Antibody < 3.10 mIU/mL (10.00-) L 01/19/19 12:43 - Microbiology Findings Microbiology Findings: Microbiology, Last 48 Hours 01/24/19 00:47 Cryptococcal Antigen - Final Serum 01/22/19 06:08 Respiratory Culture - Final Right Upper Lobe Lung P. aeruginosa MDRO 01/18/19 14:06 Blood Culture - Final Peripheral Venipuncture No growth. Final report. 01/18/19 14:06 Blood Culture - Final Peripheral Venipuncture No growth. Final report. 01/22/19 06:08 Acid Fast Stain - Final Right Upper Lobe Lung 01/22/19 06:08 Fungal Culture - Preliminary Right Upper Lobe Lung Culture is incubating. - Clinical Findings Intake & Output: Intake & Output 01/23/19 01/24/19 01/24/19 23:59 07:59 15:59 Intake Total 20 / 840 100 / 820 720 / 820 Output Total 0 / 2600 2600 / 2600 Balance 20 / -1110 100 / -1780 -1880 / -1780 - Attending Attestation I examined this patient and my medical decision-making was reviewed with the Resident Physician. I agree with the documented findings, disposition and treatment plan as described except to the extent set forth below. We independently had [id number] contact with the patient Patient seen and examined at bedside Labs, radiology, chart personally reviewed. Impression/Recs: Clinically Dorothy appears about the same. She is not tolerating trach collar for more than an hour at a time. Appears that she has a air leak around the trach cuff and tracheostomy would need to be replaced. 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 Clinically I feel that this is a terminal infection and I expressed my impression to the family the daughters are coming to terms that she is not getting Better mother has expressed interest in continuing to be treated at this time and so we will defer to antibiotics per their recommendations. Appreciate palliative care recommendations as well. Continue pressure support during the day and ventilator at night. Dialysis for ESRD per nephrology.
[2019-01-24] MEDS: Budesonide/Formoterol 160/4.5 1 PUFF INH IH SCH ×2 (10:02→22:38)
[2019-01-24] MEDS ORDERED: Albumin 25% 12.5gm/50mL 25.0 GM/100 ML IV.SOLN ONE (10:21)
--- NOTE | 2019-01-24 11:57 | Infectious Disease Progress No ---
ID Progress Note Date of Encounter: 01/24/19 Time of Encounter: 11:55 - Subjective Subjective: Patient seen and examined in the dialysis unit with her daughter at the bedside. No acute events noted overnight. Patient states overall she does not feel very well. She complains of shortness of breath. Per her daughter, not really suctioning much out of her tracheostomy. Denies fevers, chills, or rigors overnight. Continues to report a poor appetite. Denies nausea or vomiting. Reports one loose stool yesterday. Denies abdominal pain. Anuric secondary to her end-stage renal disease. Denies oral thrush or skin rashes. - Objective CBC & Chem 7: 01/24/19 00:47 01/24/19 00:47 - Line Documentation Line Documentation: Dialysis Catheter (PErma-cath noted to the left upper chest.) - Exam Vitals: Temp Pulse Resp BP Pulse Ox 98.6 F 90 18 113/69 96 01/24/19 09:55 01/24/19 07:30 01/24/19 09:55 01/24/19 11:25 01/24/19 07:30 Exam: Head: Atraumatic, normal inspection, normocephalic. Eye: EOMI, PERRLA, no scleral icterus noted. ENT: Mucous membranes dry. No odontogenic infection noted. Neck: Normal inspection, no meningismus. Tracheostomy midline with O2 via vent. Respiratory: Rhonchi throughout. No rales, respiratory distress, rhonchi, or wheezes noted. Cardiovascular: Regular rate and rhythm, S1 and S2 audible. No murmurs, rubs, or gallops. GI: Soft, nondistended, normal bowel sounds. Generalized tenderness throughout. Extremities: No joint swelling, pedal edema, or tenderness noted. Dressings noted to the multiple skin tears to the bilateral lower and upper extremities. Neurological: Alert, oriented 3, no focal deficits. Psychiatric: normal affect, normal mood. Skin: Dry, intact, warm. Normal color. No rashes. Additional findings: Perma-cath noted to the left upper chest with transparent dressing C/D/I. - Assessment and Plan (1) Sepsis Current Visit: No Status: Acute The patient had 3 sepsis criteria on 01/21/19. Likely secondary to pneumonia. Improved. White blood cell count remains elevated, but she is on steroids. She continues to have some intermittent tachycardia. Tmax 100.2. Blood cultures drawn 01/18/19 are negative 2 sets. Qualifiers: Sepsis type: Streptococcus, other Sepsis acute organ dysfunction status: unspecified Qualified Code(s): A40.8 - Other streptococcal sepsis SNOMED Code(s): 38561866 (2) HCAP (healthcare-associated pneumonia) Current Visit: No Status: Acute Causative organism: Leukj-nwov-gqoxiytfs pseudomonas aeruginosa. Previous organism is PSEA R: cefepime, levofloxacin. Treated for 4 weeks with IV meropenem from 12/06-01/04 Symptoms returned 1 week after stopping antibiotics CT concerning for multifocal pneumonia with new cavitary lesion in the right apex with air fluid level. Status post bronchoscopy 01/22/19. BAL cultures as above. AFB negative. Fungal cultures are pending. Currently on IV meropenem. SNOMED Code(s): 505352065, 913885207 (3) Cavitary lesion of lung Current Visit: No Status: Acute Etiology not clear. Pulmonary abscess vs fungal? She did have aspergillus grow from sputum in September 2018. Pulmonary consult and following. Appreciate recommendations. Fungal serologies pending. Bronchoscopy fungal cultures pending. SNOMED Code(s): 463895809 (4) Chronic respiratory failure Current Visit: Yes Status: Acute Chronic tracheostomy. Qualifiers: Respiratory failure complication: unspecified whether with hypoxia or hypercapnia Qualified Code(s): J96.10 - Chronic respiratory failure, unspecified whether with hypoxia or hypercapnia SNOMED Code(s): 60666293 (5) CKD (chronic kidney disease) stage V requiring chronic dialysis Current Visit: No Status: Chronic On dialysis MWF Previous dialysis cath was infected with enterococcus. Status post removal and placement of another permacath after negative cultures x 5 days. Per family, patient was supposed to be on vanc after dialysis through next week (3 more doses). SNOMED Code(s): 757164562 (6) COPD (chronic obstructive pulmonary disease) Current Visit: No Status: Chronic Qualifiers: COPD type: COPD with acute lower respiratory infection Qualified Code(s): J44.0 - Chronic obstructive pulmonary disease with acute lower respiratory infection SNOMED Code(s): 95239153 (7) Ductal carcinoma in situ (DCIS) of right breast Current Visit: No Status: Resolved s/p mastectomy. SNOMED Code(s): 230237935 (8) Insulin dependent type 2 diabetes mellitus Current Visit: No Status: Chronic SNOMED Code(s): 492102847 (9) CHF (congestive heart failure) Current Visit: No Status: Chronic Qualifiers: Heart failure type: diastolic Heart failure chronicity: unspecified Qualified Code(s): I50.30 - Unspecified diastolic (congestive) heart failure SNOMED Code(s): 68356959 - Recommendations Recommendations: Await BAL cytology. Await fungal cultures and serologies. Discontinue Meropenem. Start colistin. Will ask pharmacy to assist with dosing for the patient's HD status. Duration of treatment depends on the clinical picture. Dose-adjust medications for HD status. Contact/droplet precautions per hospital policy. Consult Discharge Plan - Plan Referrals: Therese Garcia CNP [Primary Care Provider] - (Theerse Garcia does home visits so the family will have to call and make a follow up with her when patient is discharged) - Attending Attestation I have personally performed a face to face evaluation on this patient. I have reviewed and agree with the care plan. History and Exam by me shows: Patient seen and examined. Both daughters are at bedside and the granddaughter. I had a long discussion with them regarding the new findings including giving the alexis resistant pseudomonas aeruginosa from the BAL. Patient is switched to colistin. We will continue the vancomycin for now,. But if patient stable we will probably DC after the next dialysis session. Family had the questions and concerns which I attempted to address. Family also tells me that the patient is complaining of trouble eating and trouble swallowing. Apparently they requested ENT to evaluate there. I recommended that they speak with the hospitalist team and to see if ENT his is able to see the patient before the weekend..
--- NOTE | 2019-01-24 12:23 | Palliative Progress Note ---
Date of Encounter: 01/24/19 Time of Encounter: 10:30 - Assessment and plan (1) Acute and chronic respiratory failure Current Visit: No Status: Chronic Assessment and plan: Patient is vent dependent since admission, not tolerating trach-collar Qualifiers: Respiratory failure complication: unspecified whether with hypoxia or hypercapnia Qualified Code(s): J96.20 - Acute and chronic respiratory failure, unspecified whether with hypoxia or hypercapnia (2) Sepsis Current Visit: No Status: Acute Assessment and plan: cultures growing P. aeruginosa MDRO, fungal culture in process. ID following Qualifiers: Sepsis type: Streptococcus, other Sepsis acute organ dysfunction status: unspecified Qualified Code(s): A40.8 - Other streptococcal sepsis (3) ESRD (end stage renal disease) on dialysis Current Visit: No Status: Chronic Assessment and plan: Patient has been receiving HD daily for the last 4 days, not tolerating well a full session. (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 (5) Advanced care planning/counseling discussion Current Visit: Yes Status: Acute Assessment and plan: 20 minutes discussion with pt's daughter Tova along with Dr. Rocha, revisited pt's current medical condition, and her prognosis, discussed that at this point pt is in the hospital more than not, and her goal is to remain home. When asked if pt was agreeable to continue on current level of care, Tova stated that she did not want to come to the hospital, however once her breathing worsened she agreed. Explained that in this setting, hospice will be able to allow her to remain home and prevent suffering, while allowing the natural progression of her disease. Explained that patient would not be enrolled in hospice if dialysis was not stopped. Tova is struggling with it however she understands that pt is no longer tolerating HD and therefore will continue to worsen regardless. Tova was starting to consider the hospice option, and stated she would need to talk to her sister. Palliative care will follow up in the afternoon when both daughters are available for further discussion. - Time Spent With Patient Total time spent is greater than 50% in coordination of care (as documented) at patient's floor/unit and/or counseling patient: Greater than 35 minutes - Subjective Interval history: Patient was seen in HD, along with Dr. Rocha. Daughter Tova at the bedside. Patient was awake, stated to be feeling better, and asking repeatedly to go home. Remains on trach to vent. - Constitutional Vitals: Abnormal lab results WBC 15.0 K/mcL (4.3-11.1) H 01/24/19 00:47 RBC 3.75 M/mcL (3.82-4.97) L 01/23/19 04:55 Hgb 10.7 g/dL (11.5-15.4) L 01/24/19 00:47 Hct 34.5 % (35.3-44.9) L 01/22/19 04:34 MCH 27.0 pg (28.0-33.3) L 01/24/19 00:47 MCHC 28.8 g/dL (31.6-35.5) L 01/24/19 00:47 RDW 20.1 % (11.5-14.5) H 01/24/19 00:47 Neutrophils # 11.7 K/mcL (1.6-8.9) H 01/23/19 04:55 Nucleated RBCs/100 WBC 0.3 /100 WBC (0) H 01/23/19 04:55 Hypochromasia Present (Not Present) A 01/23/19 04:55 Anisocytosis 1+ (Not Present) A 01/23/19 04:55 PT 14.9 Seconds (9.4-12.1) H 01/18/19 14:06 ABG Total CO2 28 mEq/L (20-26) H 01/20/19 05:48 VBG HCO3 29 mEq/L (21-27) H 01/18/19 14:17 Sodium 135 mEq/L (136-145) L 01/22/19 04:34 Potassium 2.9 mEq/L (3.5-5.1) L 01/24/19 00:47 Chloride 95 mEq/L (98-107) L 01/23/19 04:55 Carbon Dioxide 30 mEq/L (23-29) H 01/23/19 04:55 BUN 32 mg/dL (8-23) H 01/24/19 00:47 Creatinine 2.85 mg/dL (0.60-1.20) H 01/24/19 00:47 Est GFR ( Amer) 20 (> 60) L 01/24/19 00:47 Est GFR (Non-Af Amer) 16 (> 60) L 01/24/19 00:47 Glucose 188 mg/dL (70-105) H 01/24/19 00:47 POC Glucose 222 mg/dL (70-99) H 01/24/19 00:10 Calculated Osmolality 306 (280-300) H 01/24/19 00:47 Lactic Acid 2.3 mmol/L (0.5-2.2) H 01/18/19 14:06 Calcium 10.6 mg/dL (8.6-10.3) H 01/24/19 00:47 Alkaline Phosphatase 120 Units/L (34-104) H 01/20/19 06:54 Troponin I 0.05 ng/mL (< 0.04) H* 01/19/19 04:14 B-Natriuretic Peptide 263 pg/mL (Less than 100) H 01/18/19 14:06 Serum Total Protein 6.3 g/dL (6.4-8.9) L 01/20/19 06:54 Albumin 2.9 g/dL (3.5-5.7) L 01/20/19 06:54 Albumin/Globulin Ratio 0.9 (1.1-2.2) L 01/20/19 06:54 Hep Bs Antibody < 3.10 mIU/mL (10.00-) L 01/19/19 12:43 Exam: - Head Head exam: Present: atraumatic, normocephalic - Neck Neck exam: Trach in place - Respiratory Additional comments: coarse breath sounds bilaterally on ventilator through trach - Cardiovascular Cardiovascular exam: Present: RRR, +S1, +S2 - GI/Abdominal GI/Abdominal exam: Present: normal bowel sounds, soft. Absent: tenderness - Extremities Exam Extremities exam: Absent: pedal edema Additional comments: multiple skin tears on all 4 extremities with large areas of ecchymosis, likely chronic - Neurological Exam Neurological exam: Present: alert Palliative Quality Palliative Quality: Screen for Code Status: Yes, Screen for Goals of Care: Yes, Screen for Pain: Yes, Screen for Nausea/Vomitting: NA Code Status: 01/18/19 17:33 Resuscitation Status: Active [RES] Routine Comment: Resuscitation Status: [id number] 01/21/19 10:05 Resuscitation Status: Active [RES] Routine Comment: Resuscitation Status: DNR-Comfort Care 01/21/19 11:45 Resuscitation Status: Active [RES] Routine Comment: Resuscitation Status: DNR-Comfort Care-Arrest 01/21/19 11:47 DNR [Resuscitation Status: Active] [RES] Routine Comment: Resuscitation Status: DNR-Comfort Care-Arrest - Labs CBC & Chem 7: 01/24/19 00:47 01/24/19 00:47 Labs: Laboratory Results - last 24 hr 01/23/19 01/23/19 01/23/19 11:54 16:52 16:53 WBC RBC Hgb Hct MCV MCH MCHC RDW Plt Count MPV Sodium Potassium Chloride Carbon Dioxide BUN Creatinine Est GFR ( Amer) Est GFR (Non-Af Amer) BUN/Creatinine Ratio Glucose POC Glucose 137 H 403 H* 380 H Calculated Osmolality Calcium Random Vancomycin 01/23/19 01/24/19 01/24/19 19:13 00:10 00:47 WBC RBC Hgb Hct MCV MCH MCHC RDW Plt Count MPV Sodium Potassium Chloride Carbon Dioxide BUN Creatinine Est GFR ( Amer) Est GFR (Non-Af Amer) BUN/Creatinine Ratio Glucose POC Glucose 400 H 222 H Calculated Osmolality Calcium Random Vancomycin 20 01/24/19 01/24/19 00:47 00:47 WBC 15.0 H RBC 3.96 Hgb 10.7 L Hct 37.2 MCV 93.9 MCH 27.0 L MCHC 28.8 L RDW 20.1 H Plt Count 262 MPV 10.5 Sodium 142 Potassium 2.9 L Chloride 98 Carbon Dioxide 29 BUN 32 H Creatinine 2.85 H Est GFR ( Amer) 20 L Est GFR (Non-Af Amer) 16 L BUN/Creatinine Ratio 11 Glucose 188 H POC Glucose Calculated Osmolality 306 H Calcium 10.6 H Random Vancomycin - ABG Interpretation ABG results: ABG ABG pH 7.44 pH Units (7.32-7.45) 01/20/19 05:48 ABG pCO2 40 mmHg (35-45) 01/20/19 05:48 ABG pO2 102 mmHg (85-104) 01/20/19 05:48 ABG O2 Saturation 98 % (95-98) 01/20/19 05:48 PT/INR, D-dimer PT 14.9 Seconds (9.4-12.1) H 01/18/19 14:06 Palliative Scale - Palliative Performance Scale How ambulatory is this patient?: Mainly in bed What is patient's level of activity and evidence of disease?: Unable to do any work, Extensive disease How much self-care assistance does patient require?: Mainly assistance How much oral intake does the patient have?: Normal or reduced What is this patient's level of consciousness?: Full or drowsy with or without confusion Palliative Performance Score: 40 % Consult Discharge Plan - Plan Referrals: Therese Garcia [employer] [Primary Care Provider] - (Therese Garcia does home visits so the family will have to call and make a follow up with her when patient is discharged)
--- NOTE | 2019-01-24 14:17 | Nephrology Progress Note ---
Date of Encounter: 01/24/19 Time of Encounter: 09:30 - Assessment and Plan (1) ESRD (end stage renal disease) on dialysis Current Visit: No Status: Chronic HD MWF in [place] with Dr. Peraza HD completed today with Albumin. Spoke at length with daughters and patient regarding goals of care. Midodrine increased to 10 mg PO TID. Renal vitamins. Renal dose medications. Renal diet. Additional dialysis and ultrafiltration as needed. (2) Anemia Current Visit: No Status: Chronic Transfusion per the primary team. Hgb is 10.7 stable and at goal. Qualifiers: Anemia type: unspecified type Qualified Code(s): D64.9 - Anemia, unspecified (3) Diabetes mellitus Current Visit: No Status: Chronic Per primary. Qualifiers: Diabetes mellitus type: type 2 Diabetes mellitus ocean transportation intermediary insulin use: with assisted use Diabetes mellitus complication status: with kidney complications Diabetes mellitus complication detail: with chronic kidney disease Chronic kidney disease stage: on chronic dialysis Qualified Code(s): E11.22 - Type 2 diabetes mellitus with diabetic chronic kidney disease; N18.6 - End stage renal disease; Z79.4 - USP (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 (4) Hypertension Current Visit: No Status: Chronic BP currently low, Midodrine ordered TID. Qualifiers: Hypertension type: essential hypertension Qualified Code(s): I10 - Essential (primary) hypertension (5) Acute and chronic respiratory failure Current Visit: Yes Status: Acute Patient has a trach and is currently on the vent. Management per the primary team. Qualifiers: Respiratory failure complication: hypoxia Qualified Code(s): J96.21 - Acute and chronic respiratory failure with hypoxia Subjective Principal diagnosis: esrd Interval history: Patient seen and examined in HD tolerated with Albumin. Daughter at bedside. Objective - Vital Signs Vital signs: Vital Signs Temp Pulse Resp BP Pulse Ox 01/24/19 13:30 98.1 F 18 135/72 01/24/19 12:55 94/50 01/24/19 12:40 122/68 01/24/19 12:25 166/78 01/24/19 12:10 152/77 01/24/19 11:55 140/70 01/24/19 11:40 124/57 01/24/19 11:25 113/69 01/24/19 11:10 134/69 01/24/19 10:55 122/59 01/24/19 10:45 131/84 01/24/19 10:40 92/59 01/24/19 10:25 89/51 01/24/19 10:20 92/59 01/24/19 10:10 128/69 01/24/19 09:55 98.6 F 18 133/63 01/24/19 08:35 98.7 F 01/24/19 07:30 99.5 F 90 18 118/69 96 01/24/19 04:17 100.2 F H 92 19 112/62 96 01/24/19 03:25 20 121/57 98 01/24/19 00:06 100.1 F H 100 26 121/57 96 01/23/19 22:11 24 146/77 100 01/23/19 19:07 100.2 F H 97 26 146/77 99 01/23/19 18:20 101 22 97 01/23/19 16:47 99.3 F 93 27 151/85 100 01/23/19 16:05 95 22 99 01/23/19 16:01 25 104/58 97 01/23/19 15:36 25 97 Intake and Output 01/23/19 01/24/19 01/24/19 23:59 07:59 15:59 Intake Total 20 / 840 100 / 820 720 / 820 Output Total 0 / 2600 2600 / 2600 Balance 20 / -1110 100 / -1780 -1880 / -1780 Intake: Oral 20 / 40 100 / 220 120 / 220 Intake, Rinseback and Flushes 600 / 600 Output: Urine 0 / 0 0 / 0 Total Dialysis (HD) Output 2600 / 2600 Other: Meal Breakfast Percent of Meal Consumed 15% Stool Size Moderate Large Stool Consistency loose loose liquid Stool Characteristics Normal for Patient Stool Color Brown Brown Yellow Yellow # Bowel Movements 1 Blood Glucose* 400 241 144 Hemodialysis Net Fluid Removed 2000 (mL) - General Appearance General appearance: Present: chronically ill, frail EENT: Present: ATNC, hearing intact, vision intact Neck: Present: supple Respiratory: Present: rhonchi Cardiology: Present: no edema, normal S1, normal S2 Dialysis Vascular Access: Venous Catheter (DRSG C/D/I) Gastrointestinal: Present: normoactive bowel sounds, no tenderness, no guarding Integumentary: Present: no rash, warm and dry Neurologic: Present: alert and oriented x3 Musculoskeletal: Present: no deformities, no erythema Psychiatric: Present: mood/affect appropriate, cooperative - Lab 01/24/19 00:47 01/24/19 00:47 Consult Discharge Plan - Plan Referrals: Therese Garcia CNP [Primary Care Provider] - (Therese Garcia does home visits so the family will have to call and make a follow up with her when patient is discharged)
[2019-01-24] MEDS ORDERED: SODIUM CHLORIDE 0.9% IVPB ONE (14:26)
[2019-01-24] MEDS ORDERED: COLISTIN IVPB ONE (14:26)
[2019-01-24] MEDS: Ascorbic Acid 500 MG TABLET PO SCH (14:31)
[2019-01-24] MEDS: *HR* Amiodarone 200 MG TABLET PO SCH (14:31)
[2019-01-24] MEDS: Apixaban 2.5 MG TABLET PO SCH (14:31)
--- NOTE | 2019-01-24 15:29 | Internal Med Progress Note ---
Hospitalist Progress Note - Encounter Date of Encounter: 01/24/19 Time of Encounter: 09:30 - Subjective Interval History: Patient seen in HD accompanied by daughter. She is somewhat somnolent and continues to repeat that she wants to go home. Extensive conversation with daughter along with Palliative Dr Chavez about patient's wishes, and daughter at times seems to convey that patient is weary and wants to be done with interventions because they make her feel bad (HD, etc), but also seems very involved with minutiae of care and at times focuses on this rather than global picture of progressive decline in her mother's health. Does seems today at least willing to consider hospice although will talk with sister (pt's other daughter) about stopping HD. - Exam Vitals: Temp Pulse Resp BP Pulse Ox 98.1 F 90 18 135/72 96 01/24/19 13:30 01/24/19 07:30 01/24/19 13:30 01/24/19 13:30 01/24/19 07:30 Exam: GENERAL APPEARANCE: somnolent, will nod for basic questions, does verbalize (difficult to understand) some statements HEENT: Normocephalic/atraumatic, EOMI. CARDIOVASCULAR: Normal S1, S2; regular rate and rhythm; no murmurs. RESPIRATORY: Coarse breath sounds; unable to auscultate wheezing or crackles; trach in place with vent attached ABDOMEN: Soft, nondistended EXTREMITIES: 1+ pitting edema b/l NEUROLOGICAL: Unable to assess as patient is somnolent SKIN: Skin normal color, texture and turgor with skin tears/wounds/bruises scattered - Summary of Assessment and Plan Summary of Assessment and Plan: Dorothy Parks is a 78 F w hx ESRD on HD MWF, HFpEF, CAD s/p HI, HTN, DM2, CVA, A- Fib not on AC 2/2 GIB requiring colectomy, COPD s/p chronic trach on 4L and vent qhs, and who was recently discharged from our hospital following bacteremia from HD cath and then subsequently was at [facility] for PNA and bacteremia on meropenem and vanc, who presented at time of admission with SOB, hypoxia, and found to have leukocytosis, CT showing RUL consolidation, concerning for VAP, with inability to wean from vent during day. 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, 4th gen cephalosporins, carbapenems, aminoglycosides - d/c meropenem - start colistin per ID - ID and pulm following - BAL 01/22 results pending - Fungal culture pending Sepsis: SIRS 3/4, resistant organism as above Acute on chronic hypoxic respiratory failure requiring trach vent: baseline trach vent at night but here requiring around the clock and difficulty weaning - home inhalers, duonebs prn - Pulm following for vent management ESRD on HD MWF: Neph consulted, home meds HFpEF: volume per HD as tolerated CAD: home lipitor, has listed allergy to ASA HTN: volume per HD DM2: insulin dependent, w hyperglycemia, controlled currently, use SSI A-Fib: not on AC, rhythm on amio 200, rate on no meds (holding metoprolol 12.5 bid) Anx/dep: home effexor 37.5, buspar 7.5 bid PPx: eliquis FEN: renal, no MIVF Lines: PIV, permacath, trach Consults: Neph, ID, Pulm, Palliative Code: DNRCC-A Dispo: requires inpatient care for evaluation and monitoring, unknown duration, per discussion today pt's family beginning to accept possibility of hospice Internal Medicine: Result - Labs CBC & Chem 7: 01/24/19 00:47 01/24/19 00:47 Labs: Short CBC 01/24/19 Range/Units 00:47 WBC 15.0 H (4.3-11.1) K/mcL Hgb 10.7 L (11.5-15.4) g/dL Hct 37.2 (35.3-44.9) % Plt Count 262 (140-400) K/mcL BMP 01/24/19 00:47 Sodium 142 Potassium 2.9 L Chloride 98 Carbon Dioxide 29 BUN 32 H Creatinine 2.85 H Glucose 188 H Calcium 10.6 H - ABG Interpretation ABG results: ABG ABG pH 7.44 pH Units (7.32-7.45) 01/20/19 05:48 ABG pCO2 40 mmHg (35-45) 01/20/19 05:48 ABG pO2 102 mmHg (85-104) 01/20/19 05:48 ABG O2 Saturation 98 % (95-98) 01/20/19 05:48 PT/INR, D-dimer PT 14.9 Seconds (9.4-12.1) H 01/18/19 14:06 Consult Discharge Plan - Plan Referrals: Therese Garcia CNP [Primary Care Provider] - (Therese Garcia does home visits so the family will have to call and make a follow up with her when patient is discharged)
[2019-01-24 16:20] LABS: BronchAsperGalactomannan Index 5.33
[2019-01-24] MEDS: Renal Vitamin 1 CAP CAPSULE PO SCH (16:43)
[2019-01-24] MEDS: *HR* Acetaminophen w/Cod 300-30 mg 1 TAB TABLET PO PRN (16:43)
[2019-01-24] MEDS: Insulin DETEMIR 100 UNIT/ML X5UNITS SQ SCH (22:30)
[2019-01-24] MEDS: GuaiFENesin Liq 200 MG/10 ML UDC PO SCH (22:31)
[2019-01-25] MEDS: Insulin LISPRO 300 UNITS/3 ML VIAL SQ SCH ×5 (02:33→23:35)
[2019-01-25] MEDS: Hydrocortisone Sodium Succ 100 MG/2 ML VIAL IVP SCH ×5 (02:34→23:36)
[2019-01-25 02:41] LABS: Hematocrit 41.1 % (35.3-44.9); Hemoglobin 11.9 g/dL (11.5-15.4); Mean Corpuscular Hemoglobin 27.8 pg (28.0-33.3); Platelet Count 251 K/mcL (140-400); Red Blood Count 4.28 M/mcL (3.82-4.97); Red Cell Distribution Width 20.1 % (11.5-14.5); White Blood Count 21.4 K/mcL (4.3-11.1)
[2019-01-25 03:00] LABS: Calcium 10.7 mg/dL (8.6-10.3); Potassium 3.5 mEq/L (3.5-5.1)
[2019-01-25] MEDS: Levalbuterol Neb 1.25 MG/3 ML IH SCH ×4 (03:37→23:17)
--- NOTE | 2019-01-25 08:26 | Internal Med Progress Note ---
Hospitalist Progress Note - Encounter Date of Encounter: 01/25/19 Time of Encounter: 08:26 - Subjective Interval History: Patient is more awake today than yesterday, lying in bed with somewhat defeated look and shrugs at some questions but does smile and nod to others. Daughters present at bedside. Pt denies acute issues, but daughters do remark on trach issues stating that she has difficult time talking and eating. They also say she had some dyspepsia earlier, but no N/V/D. - Exam Vitals: Temp Pulse Resp BP Pulse Ox 99.1 F 94 19 83/54 98 01/25/19 08:08 01/25/19 08:08 01/25/19 08:08 01/25/19 08:08 01/25/19 08:08 Exam: GENERAL APPEARANCE: more awake, will nod and mouth some answers HEENT: Normocephalic/atraumatic, EOMI, trach in place CARDIOVASCULAR: Normal S1, S2; regular rate and rhythm; no murmurs. RESPIRATORY: Coarse breath sounds; unable to auscultate wheezing or crackles; trach in place with vent attached ABDOMEN: Soft, nondistended EXTREMITIES: 1+ pitting edema b/l NEUROLOGICAL: awake, oriented to person and place, answers appropriately, able to all extremities SKIN: Skin with tears/wounds/bruises scattered - Summary of Assessment and Plan Summary of Assessment and Plan: Dorothy Parks is a 78 F w hx ESRD on HD MWF, HFpEF, CAD s/p HI, HTN, DM2, CVA, A- Fib not on AC 2/2 GIB requiring colectomy, COPD s/p chronic trach on 4L and vent qhs, and who was recently discharged from our hospital following bacteremia from HD cath and then subsequently was at [facility] for PNA and bacteremia on meropenem and vanc, who presented at time of admission with SOB, hypoxia, and found to have leukocytosis, CT showing RUL consolidation, concerning for VAP, with inability to wean from vent during day. 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, 4th gen cephalosporins, carbapenems, aminoglycosides - continue colistin per ID - ID and pulm following - BAL 01/22 results pending - Fungal culture pending Sepsis: SIRS 3/4, resistant organism as above, noted Acute on chronic hypoxic respiratory failure requiring trach vent: baseline trach vent at night but here requiring around the clock and difficulty weaning - home inhalers, duonebs prn - Pulm following for vent management - ENT consulted to troubleshoot possible trach discomfort ESRD on HD MWF: Neph consulted, home meds HFpEF: volume per HD as tolerated CAD: home lipitor, has listed allergy to ASA HTN: volume per HD DM2: insulin dependent, w hyperglycemia, controlled currently, use SSI A-Fib: AC on eliquis, rhythm on amio 200, rate on no meds (holding metoprolol 12.5 bid) Anx/dep: home effexor 37.5, buspar 7.5 bid PPx: eliquis FEN: renal, no MIVF Lines: PIV, permacath, trach Consults: Neph, ID, Pulm, Palliative, ENT Code: DNRCC-A Dispo: requires inpatient care, unknown duration, family completely walked back on hospice discussion and want to continue full treatment Internal Medicine: Result - Labs CBC & Chem 7: 01/25/19 02:03 01/25/19 02:03 Labs: Short CBC 01/25/19 Range/Units 02:03 WBC 21.4 H (4.3-11.1) K/mcL Hgb 11.9 (11.5-15.4) g/dL Hct 41.1 (35.3-44.9) % Plt Count 251 (140-400) K/mcL BMP 01/25/19 02:03 Sodium 137 Potassium 3.5 Chloride 98 Carbon Dioxide 25 BUN 20 Creatinine 1.66 H Glucose 261 H Calcium 10.7 H - ABG Interpretation ABG results: ABG ABG pH 7.44 pH Units (7.32-7.45) 01/20/19 05:48 ABG pCO2 40 mmHg (35-45) 01/20/19 05:48 ABG pO2 102 mmHg (85-104) 01/20/19 05:48 ABG O2 Saturation 98 % (95-98) 01/20/19 05:48 PT/INR, D-dimer PT 14.9 Seconds (9.4-12.1) H 01/18/19 14:06 Consult Discharge Plan - Plan Referrals: Therese Garcia FIELD EDUCATION DIRECTOR [Primary Care Provider] - (Therese Garcia does home visits so the family will have to call and make a follow up with her when patient is discharged)
[2019-01-25] MEDS: Budesonide/Formoterol 160/4.5 1 PUFF INH IH SCH ×2 (10:05→23:17)
--- NOTE | 2019-01-25 10:47 | Nephrology Progress Note ---
Date of Encounter: 01/25/19 Time of Encounter: 10:45 - Assessment and Plan (1) ESRD (end stage renal disease) on dialysis Current Visit: No Status: Chronic HD MWF in [place] with Dr. Peraza HD completed yesterday with Albumin. No HD today. Spoke at length with daughters and patient regarding goals of care. Midodrine increased to 10 mg PO TID. Renal vitamins. Renal dose medications. Renal diet. Additional dialysis and ultrafiltration as needed. (2) Anemia Current Visit: No Status: Chronic Transfusion per the primary team. Qualifiers: Anemia type: unspecified type Qualified Code(s): D64.9 - Anemia, unspecified (3) Diabetes mellitus Current Visit: No Status: Chronic Per primary. Qualifiers: Diabetes mellitus type: type 2 Diabetes mellitus terminal worker insulin use: with terminal worker use Diabetes mellitus complication status: with kidney complications Diabetes mellitus complication detail: with chronic kidney disease Chronic kidney disease stage: on chronic dialysis Qualified Code(s): E11.22 - Type 2 diabetes mellitus with diabetic chronic kidney disease; N18.6 - End stage renal disease; Z79.4 - penitentiary (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 (4) Hypertension Current Visit: No Status: Chronic BP currently low, Midodrine ordered TID. Qualifiers: Hypertension type: essential hypertension Qualified Code(s): I10 - Essential (primary) hypertension (5) Acute and chronic respiratory failure Current Visit: Yes Status: Acute Patient has a trach and is currently on the vent. Management per the primary team. ENT consult for management of trach. Qualifiers: Respiratory failure complication: hypoxia Qualified Code(s): J96.21 - Acute and chronic respiratory failure with hypoxia (6) Sepsis Current Visit: Yes Status: Acute WBC increased despite Colistin. Per ID, appreciate recommendations. Qualifiers: Sepsis type: sepsis due to unspecified organism Sepsis acute organ dysfunction status: with acute organ dysfunction Severe sepsis acute organ dysfunction type: acute respiratory failure Acute respiratory failure type: with hypoxia Severe sepsis shock status: without septic shock Qualified Code(s): A41.9 - Sepsis, unspecified organism; R65.20 - Severe sepsis without septic shock; J96.01 - Acute respiratory failure with hypoxia Subjective Principal diagnosis: esrd Interval history: Patient seen and examined. Pt appears more alert. Denies chest pain, admits to feeling short of breath. 2 daughters at bedside. Denies nausea, vomiting. Does have loose stools after HD. Objective - Vital Signs Vital signs: Vital Signs Temp Pulse Resp BP Pulse Ox 01/25/19 09:54 17 83/54 97 01/25/19 08:08 99.1 F 94 19 83/54 98 01/25/19 04:35 99.5 F 93 22 107/60 96 01/25/19 03:42 21 99 01/24/19 23:20 99.3 F 92 18 90/54 100 01/24/19 22:42 16 100 01/24/19 21:00 89 01/24/19 20:23 99.7 F H 79 20 93/53 100 01/24/19 18:40 88 20 98 01/24/19 17:08 97.9 F 94 20 103/71 100 01/24/19 16:50 108 20 93 01/24/19 16:07 24 118/69 100 01/24/19 14:20 85 22 95 01/24/19 13:30 98.1 F 18 135/72 01/24/19 12:55 94/50 01/24/19 12:40 122/68 01/24/19 12:25 166/78 01/24/19 12:10 152/77 01/24/19 11:55 140/70 01/24/19 11:40 124/57 01/24/19 11:25 113/69 01/24/19 11:10 134/69 01/24/19 10:55 122/59 01/24/19 10:50 75 20 98 Intake and Output 01/24/19 01/25/19 01/25/19 23:59 07:59 15:59 Intake Total 50 / 870 120 / 120 Balance 50 / -1730 120 / 120 Intake: IV Fluids 50 / 50 Coly-Mycin M PARENTERAL 250 MG 50 / 50 In 0.9 % Sodium Chloride 50 ML @ 100 mls/hr IVPB ONCE ONE Rx#: [id number] Oral 120 / 120 Other: Meal Breakfast Percent of Meal Consumed 5% Blood Glucose* 197 89 - General Appearance General appearance: Present: chronically ill, frail EENT: Present: ATNC, hearing intact, vision intact Neck: Present: supple Respiratory: Present: rhonchi Cardiology: Present: no edema, normal S1, normal S2 Dialysis Vascular Access: Venous Catheter (EMILYG C/D/I) Gastrointestinal: Present: normoactive bowel sounds, no tenderness, no guarding Integumentary: Present: no rash, warm and dry Neurologic: Present: alert and oriented x3 Musculoskeletal: Present: no deformities, no erythema Psychiatric: Present: mood/affect appropriate, cooperative - Lab 01/25/19 02:03 01/25/19 02:03 Most recent lab results 01/25/19 02:03 Calcium 10.7 H Consult Discharge Plan - Plan Referrals: Therese Garcia SUPERVISOR [employer]ING DEPARTMENT [Primary Care Provider] - (Therese Garcia does home visits so the family will have to call and make a follow up with her when patient is discharged)
[2019-01-25] MEDS: GuaiFENesin Liq 200 MG/10 ML UDC PO SCH ×3 (10:57→21:19)
[2019-01-25] MEDS: *HR* Amiodarone 200 MG TABLET PO SCH (10:58)
[2019-01-25] MEDS: Apixaban 2.5 MG TABLET PO SCH (11:00)
[2019-01-25] MEDS: Ascorbic Acid 500 MG TABLET PO SCH (11:00)
--- NOTE | 2019-01-25 11:20 | Event Note ---
Date of Encounter: 01/25/19 Time of Encounter: 11:00 Patient awake and alert - daughters at bedside. Nurse was administering medications so I did not assess patient at this time. Daughter discussed events yesterday surrounding conversation with patient, and she stated that when she was seen in dialysis and expressed she "wanted to go home", that this is what she always states when she is at dialysis and doesn't feel well. Stated that she was "fine". Daughters state that ENT will be in today to change out tracheostomy that is causing the patient difficulty with eating/drinking. They have also discussed the Colistin at length with infectious disease. They are hoping that she improves with this therapy. I told them that we would f/u on Monday on her clinical status and will likely need to have discussion at that time.
--- NOTE | 2019-01-25 11:57 | Infectious Disease Progress No ---
ID Progress Note Date of Encounter: 01/25/19 Time of Encounter: 11:54 - Subjective Subjective: Patient seen and examined with her daughters at the bedside. No acute events noted overnight. Patient is drowsy, but denies pain. Ate a little breakfast, but not much. Per her daughter, patient reports pain with swallowing when on the ventilator. ENT consult pending. - Objective CBC & Chem 7: 01/25/19 02:03 01/25/19 02:03 - Line Documentation Line Documentation: Dialysis Catheter (PErma-cath noted to the left upper chest.) - Exam Vitals: Temp Pulse Resp BP Pulse Ox 99.7 F H 95 18 99/61 94 01/25/19 11:43 01/25/19 11:43 01/25/19 11:43 01/25/19 11:43 01/25/19 11:43 Exam: Head: Atraumatic, normal inspection, normocephalic. Eye: EOMI, PERRLA, no scleral icterus noted. ENT: Mucous membranes dry. No odontogenic infection noted. Neck: Normal inspection, no meningismus. Tracheostomy midline with O2 via vent. Respiratory: Clear/diminished throughout. No rales, respiratory distress, rhonchi, or wheezes noted. Cardiovascular: Regular rate and rhythm, S1 and S2 audible. No murmurs, rubs, or gallops. GI: Soft, nondistended, normal bowel sounds. Generalized tenderness throughout. Extremities: No joint swelling, pedal edema, or tenderness noted. Dressings noted to the multiple skin tears to the bilateral lower and upper extremities. Neurological: Alert, oriented 3, no focal deficits. Psychiatric: normal affect, normal mood. Skin: Dry, intact, warm. Normal color. No rashes. Additional findings: Perma-cath noted to the left upper chest with transparent dressing C/D/I. - Assessment and Plan (1) Sepsis Current Visit: No Status: Acute The patient had 3 sepsis criteria on 01/21/19. Likely secondary to pneumonia. Improved. White blood cell count remains elevated, but she is on steroids. She continues to have some intermittent tachycardia. Afebrile overnight. Blood cultures drawn 01/18/19 are negative 2 sets. Qualifiers: Sepsis type: Streptococcus, other Sepsis acute organ dysfunction status: unspecified Qualified Code(s): A40.8 - Other streptococcal sepsis SNOMED Code(s): 35286804 (2) HCAP (healthcare-associated pneumonia) Current Visit: No Status: Acute Causative organism: [id number] pseudomonas aeruginosa. Previous organism is PSEA R: cefepime, levofloxacin. Treated for 4 weeks with IV meropenem from 12/06-01/04 Symptoms returned 1 week after stopping antibiotics CT concerning for multifocal pneumonia with new cavitary lesion in the right apex with air fluid level. Status post bronchoscopy 01/22/19. BAL cultures as above. AFB negative. Fungal cultures are pending. BAL Aspergillus positive. Not sure if this is contributing to the patient's clinical picture. Currently on IV meropenem. SNOMED Code(s): 026063116, 550577671 (3) Cavitary lesion of lung Current Visit: No Status: Acute Etiology not clear. Pulmonary abscess vs fungal? She did have aspergillus grow from sputum in September 2018. Pulmonary consult and following. Appreciate recommendations. Fungal serologies pending. Bronchoscopy fungal cultures pending. BAL Aspergillus positive. SNOMED Code(s): 674494589 (4) Chronic respiratory failure Current Visit: Yes Status: Acute Chronic tracheostomy. ENT consulted to evaluate trach. Qualifiers: Respiratory failure complication: unspecified whether with hypoxia or hyper capnia Qualified Code(s): J96.10 - Chronic respiratory failure, unspecified whether with hypoxia or hypercapnia SNOMED Code(s): 89198036 (5) CKD (chronic kidney disease) stage V requiring chronic dialysis Current Visit: No Status: Chronic On dialysis MWF Previous dialysis cath was infected with enterococcus. Status post removal and placement of another permacath after negative cultures x 5 days. Per family, patient was supposed to be on vanc after dialysis through next week (3 more doses). SNOMED Code(s): 680311262 (6) COPD (chronic obstructive pulmonary disease) Current Visit: No Status: Chronic Qualifiers: COPD type: COPD with acute lower respiratory infection Qualified Code(s): J44.0 - Chronic obstructive pulmonary disease with acute lower respiratory infection SNOMED Code(s): 55205352 (7) Ductal carcinoma in situ (DCIS) of right breast Current Visit: No Status: Resolved s/p mastectomy. SNOMED Code(s): 639417722 (8) Insulin dependent type 2 diabetes mellitus Current Visit: No Status: Chronic SNOMED Code(s): 732239712 (9) CHF (congestive heart failure) Current Visit: No Status: Chronic Qualifiers: Heart failure type: diastolic Heart failure chronicity: unspecified Qualified Code(s): I50.30 - Unspecified diastolic (congestive) heart failure SNOMED Code(s): 36229262 - Recommendations Recommendations: Await BAL cytology. Await fungal cultures and serologies. Continue colistin. Will ask pharmacy to assist with dosing for the patient's HD status. Duration of treatment depends on the clinical picture. Dose-adjust medications for HD status. Contact/droplet precautions per hospital policy. Consult Discharge Plan - Plan Referrals: Therese Garcia MATCH MARKER [Primary Care Provider] - (Therese Garcia does home visits so the family will have to call and make a follow up with her when patient is discharged)
[2019-01-25] MEDS: Renal Vitamin 1 CAP CAPSULE PO SCH (16:07)
--- NOTE | 2019-01-25 17:46 | ENT - Consult Note ---
Date of Encounter: 01/25/19 Time of Encounter: 17:41 Assessment and Plan (1) Tracheostomy dependent Current Visit: No Status: Chronic At the time of evaluation with the patient, there was no leak around the tracheostomy tube and the cuff was appropriately inflated. I had a long discussion with the family members that at this time given that the trach is only one month old, I do not believe that the treatments be changed at this time. I discussed with the patient that the PEEP setting is higher while in the hospital and this could be contributing to the reason for the leak earlier and the need to inflate the cuff at a higher level than while the patient has at home. We also discussed that the difficulty swallowing that she may be experiencing is possibly due to the cuff being inflated all throughout the day and night as opposed to only at nighttime. I discussed with the family that we are not able to change the trach to a cuff less trach due to the fact that she is ventilator dependent. We also discussed that on the NPL scope, there is no evidence of laryngeal candidiasis but I do not believe that this is likely the cause of her odynophagia. Additionally we discussed that if she continues to not be able to eat due to pain, she may benefit from a temporary alternative nutrition source. At this time I do not feel that any further intervention is needed from an ENT standpoint, however and he will be available for further evaluation if requested. History of Present Illness Consult date: 01/25/19 Reason for ENT Consult: other (Evaluation of Tracheotomy) History of present illness: This is a 78-year-old female with multiple medical conditions including end- stage renal disease on hemodialysis, coronary artery disease status post OR, hypertension, type 2 diabetes, A. fib, CVA, COPD who was admitted to the hospital for shortness of breath and hypoxia and was found to have right upper lobe consolidation, with inability to wean from the vent during daytime. ENT is being consult to evaluate the tracheotomy tube. At baseline, the patient has had the trach for approximately 2 years and this was placed [facility] for chronic respiratory failure. The patient last had the trach changed approximately 1 month ago. She uses the vent at nighttime and trach collar during the day. During the day, the cuff is deflated. Since her visit, she has been unable to wean from the vent and the cuff has been inflated all throughout the day and night. The family is concerned because they have noticed a leak around the cuff. The patient's peak settings at home are at 6 and in the hospital they have been at greater levels. The patient is also complaining of painful swallowing since her admission. The patient was seen by speech pathology for difficulty swallowing and they found the patient to have had an overinflated cuff and once the cuff pressure was decreased, the patient was able to drink 4 ounces of water without issue. They did not recommend any further intervention. While on the ventilator, the patient has not had desaturations, there has been no bleeding around or through the tracheostomy tube. Past Med Surg Social Fam HX - Past Medical History Medical history: atrial fibrillation, cancer, CHF, COPD, CVA, diabetes, dialysis, hyperlipidemia, hypertension, myocardial infarction, renal disease Additional medical history: right breast Psychiatric history: anxiety, depression - Past Surgical History Surgical History: appendectomy, breast surgery, cholecystectomy, colectomy, hysterectomy, other Additional surgical history: trach. peg tube removed - Social History Smoking Status: Former smoker Smokeless Tobacco Status: No Alcohol use: none Drug use: none - Family History Mother Family Member Ethnicity: Non- Living Status: Hx Family Cardiac Disorders: No Hx Family Respiratory Disorders: No Hx Family Cancer: Yes (colon) Hx Family GI Disorders: No Hx Family Endocrine Disorder: No Hx Family Neuromuscular Disorders: No Hx Family Neurologic Disorders: No Hx Family HEENT Disorders: No Hx Family Autoimmune Disorders: No Father Living Status: Hx Family Cardiac Disorders: No Hx Family Respiratory Disorders: No Hx Family Cancer: Yes Hx Family GI Disorders: Yes Hx Family Endocrine Disorder: Yes (diabetic) Hx Family Neuromuscular Disorders: No Hx Family Neurologic Disorders: No Hx Family HEENT Disorders: No Hx Family Autoimmune Disorders: No Medications and Allergies Ipratropium/Albuterol Neb [Duoneb] 3 ml IH Q6HR PRN 08/22/16 [History] Ascorbate Calcium [Vitamin C] 500 mg PO DAILY 01/31/17 [History] Atorvastatin Calcium [Lipitor] 20 mg PO HS 01/31/17 [History] Guaifenesin [Mucinex] 600 mg PO BID 01/31/17 [History] Insulin LISPRO [HumaLOG] 0 - 10 units SQ TIDAC 01/31/17 [History] LORazepam [Ativan] 0.5 mg PO TID PRN 01/31/17 [History] Albuterol Sulfate [Proventil Hfa] 2 puff IH Q2H PRN 07/06/17 [History] Darbepoetin [Aranesp] 80 mcg IV Q2W 07/06/17 [History] Albuterol Neb [Proventil Neb] 2.5 mg IH Q6H PRN 07/19/17 [History] Pantoprazole Sodium [Protonix] 40 mg PO BID 07/19/17 [History] Renal Vitamin [Renal Caps Softgel] 1 mg PO 1500 07/19/17 [History] Budesonide/Formoterol 160/4.5 [Symbicort 160/4.5] 2 puff IH BIDR 03/07/18 [History] Calcitriol 0.5 mcg PO MOWEFR 03/07/18 [History] Insulin Degludec [Tresiba Flextouch U-100] 12 unit SQ DAILY 03/07/18 [History] Metoprolol [Lopressor] 12.5 mg PO BID MDD HOLD SYSTOLIC <100 PULSE<60 03/07/18 [History] Amiodarone [Cordarone] 200 mg PO DAILY 09/04/18 [History] Buspirone HCl [Buspar] 15 mg PO BID 09/04/18 [History] Lanthanum Carbonate [Fosrenol] 1,000 mg PO TIDWM 09/04/18 [History] Venlafaxine [Effexor] 37.5 mg PO DAILY 09/04/18 [History] Diclofenac Sodium [Voltaren] 1 appl TP QID 10/25/18 [History] Sennosides [Senna] 8.6 mg PO DAILY PRN 10/25/18 [History] Apixaban [Eliquis] 2.5 mg PO DAILY 12/03/18 [History] Acetaminophen [Tylenol] 650 mg PO 2-3XD 01/18/19 [History] Acetaminophen with Codeine [Acetaminophen-Cod #4 Tablet] 1 tab PO Q6H PRN 01/18/19 [History] HYDROcodone/Acet 5/325 mg [[place] 5-325 mg] 1 tab PO BID PRN 01/18/19 [History] predniSONE [PredniSONE] 7 mg PO DAILY 01/18/19 [History] Allergy/AdvReac Type Severity Reaction Status Date / Time aspirin [ASA] Allergy Swelling Verified 10/26/18 13:34 of Lip/Tongue/Throat NSAIDS (Non-Steroidal Allergy Swelling Verified 10/26/18 13:34 Anti-Inflamma of Lip/Tongue/Throat Penicillins Allergy Swelling Verified 10/26/18 13:34 of Lip/Tongue/Throat azithromycin AdvReac Fever Verified 10/26/18 13:34 iron AdvReac Unknown Verified 10/26/18 13:34 ENT - ROS ROS unobtainable: other (Unobtainable due to tracheostomy tube placement.) ENT Exam Initial Vital Signs Temp Pulse Resp BP Pulse Ox 98.7 F 94 20 119/68 88 01/18/19 13:56 01/18/19 13:56 01/18/19 13:56 01/18/19 13:56 01/18/19 13:56 - General physical appearance well developed, well nourished, no distress - Eyes normal ocular movement - ENT normal pinna, normal nares, normal mucosa - Neck trachea midline, limited ROM, other (60 distal cuffed [address] and place and inflated to an appropriate pressure. There is no audible leak. A flexible fiberoptic scope was inserted into the tracheostomy tube and confirmation of co rrect placement was confirmed by visualizing the beverly, there was no granulation tissue or bleeding noted. The flexible fiberoptic scope was then inserted through the patient's left naris and advanced to visualize the larynx. The placement of the tracheostomy tube did appear to be high however there were no other abnormalities noted.) - Respiratory other (On ventilator) - Integumentary other (Diffuse ecchymosis) - Neurologic CN 2-12 grossly intact Exam Initial Vital Signs Temp Pulse Resp BP Pulse Ox 98.7 F 94 20 119/68 88 01/18/19 13:56 01/18/19 13:56 01/18/19 13:56 01/18/19 13:56 01/18/19 13:56 Results - Labs 01/25/19 02:03 01/25/19 02:03 Abnormal lab results WBC 21.4 K/mcL (4.3-11.1) H 01/25/19 02:03 RBC 3.75 M/mcL (3.82-4.97) L 01/23/19 04:55 Hgb 10.7 g/dL (11.5-15.4) L 01/24/19 00:47 Hct 34.5 % (35.3-44.9) L 01/22/19 04:34 MCH 27.8 pg (28.0-33.3) L 01/25/19 02:03 MCHC 29.0 g/dL (31.6-35.5) L 01/25/19 02:03 RDW 20.1 % (11.5-14.5) H 01/25/19 02:03 Neutrophils # 11.7 K/mcL (1.6-8.9) H 01/23/19 04:55 Nucleated RBCs/100 WBC 0.3 /100 WBC (0) H 01/23/19 04:55 Hypochromasia Present (Not Present) A 01/23/19 04:55 Anisocytosis 1+ (Not Present) A 01/23/19 04:55 PT 14.9 Seconds (9.4-12.1) H 01/18/19 14:06 ABG Total CO2 28 mEq/L (20-26) H 01/20/19 05:48 VBG HCO3 29 mEq/L (21-27) H 01/18/19 14:17 Sodium 135 mEq/L (136-145) L 01/22/19 04:34 Potassium 2.9 mEq/L (3.5-5.1) L 01/24/19 00:47 Chloride 95 mEq/L (98-107) L 01/23/19 04:55 Carbon Dioxide 30 mEq/L (23-29) H 01/23/19 04:55 BUN 32 mg/dL (8-23) H 01/24/19 00:47 Creatinine 1.66 mg/dL (0.60-1.20) H 01/25/19 02:03 Est GFR ( Amer) 36 (> 60) L 01/25/19 02:03 Est GFR (Non-Af Amer) 30 (> 60) L 01/25/19 02:03 Glucose 261 mg/dL (70-105) H 01/25/19 02:03 POC Glucose 293 mg/dL (70-99) H 01/25/19 00:18 Calculated Osmolality 306 (280-300) H 01/24/19 00:47 Lactic Acid 2.3 mmol/L (0.5-2.2) H 01/18/19 14:06 Calcium 10.7 mg/dL (8.6-10.3) H 01/25/19 02:03 Alkaline Phosphatase 120 Units/L (34-104) H 01/20/19 06:54 Troponin I 0.05 ng/mL (< 0.04) H* 01/19/19 04:14 B-Natriuretic Peptide 263 pg/mL (Less than 100) H 01/18/19 14:06 Serum Total Protein 6.3 g/dL (6.4-8.9) L 01/20/19 06:54 Albumin 2.9 g/dL (3.5-5.7) L 01/20/19 06:54 Albumin/Globulin Ratio 0.9 (1.1-2.2) L 01/20/19 06:54 BAL A. galactomannan Ag POSITIVE (Negative) A 01/22/19 08:04 Hep Bs Antibody < 3.10 mIU/mL (10.00-) L 01/19/19 12:43 Diabetes panel 01/25/19 Range/Units 02:03 Sodium 137 (136-145) mEq/L Potassium 3.5 (3.5-5.1) mEq/L Chloride 98 (98-107) mEq/L Carbon Dioxide 25 (23-29) mEq/L BUN 20 (8-23) mg/dL Creatinine 1.66 H (0.60-1.20) mg/dL Glucose 261 H (70-105) mg/dL Calcium 10.7 H (8.6-10.3) mg/dL Calcium panel 01/25/19 Range/Units 02:03 Calcium 10.7 H (8.6-10.3) mg/dL Pituitary panel 01/25/19 Range/Units 02:03 Sodium 137 (136-145) mEq/L Potassium 3.5 (3.5-5.1) mEq/L Chloride 98 (98-107) mEq/L Carbon Dioxide 25 (23-29) mEq/L BUN 20 (8-23) mg/dL Creatinine 1.66 H (0.60-1.20) mg/dL Glucose 261 H (70-105) mg/dL Calcium 10.7 H (8.6-10.3) mg/dL Adrenal panel 01/25/19 Range/Units 02:03 Sodium 137 (136-145) mEq/L Potassium 3.5 (3.5-5.1) mEq/L Chloride 98 (98-107) mEq/L Carbon Dioxide 25 (23-29) mEq/L BUN 20 (8-23) mg/dL Creatinine 1.66 H (0.60-1.20) mg/dL Glucose 261 H (70-105) mg/dL Calcium 10.7 H (8.6-10.3) mg/dL All other labs normal. Consult Discharge Plan - Plan Referrals: Therese Garcia, ICICLE MACHINE OPERATOR [Primary Care Provider] - (Therese Garcia does home visits so the family will have to call and make a follow up with her when patient is discharged)
[2019-01-25] MEDS: COLISTIN IVPB SCH (18:29)
[2019-01-25] MEDS: SODIUM CHLORIDE 0.9% IVPB SCH (18:29)
[2019-01-25] MEDS: *HR* Acetaminophen w/Cod 300-30 mg 1 TAB TABLET PO PRN (21:18)
[2019-01-25] MEDS: Insulin DETEMIR 100 UNIT/ML X5UNITS SQ SCH (21:26)
[2019-01-25 22:34] LABS: A.galactomannan Ag Index 0.03
[2019-01-26 02:27] LABS: Hematocrit 39.5 % (35.3-44.9); Hemoglobin 11.5 g/dL (11.5-15.4); Mean Corpuscular HGB Conc 29.1 g/dL (31.6-35.5); Mean Corpuscular Volume 96.3 fL (83.0-100.0); Mean Platelet Volume 10.9 fL (9.4-12.4); Platelet Count 231 K/mcL (140-400); Red Cell Distribution Width 20.5 % (11.5-14.5); White Blood Count 23.7 K/mcL (4.3-11.1)
[2019-01-26 02:53] LABS: Calcium 10.8 mg/dL (8.6-10.3); Potassium 4.6 mEq/L (3.5-5.1)
[2019-01-26] MEDS: Levalbuterol Neb 1.25 MG/3 ML IH SCH ×4 (04:14→22:54)
[2019-01-26] MEDS: Hydrocortisone Sodium Succ 100 MG/2 ML VIAL IVP SCH ×3 (05:47→17:58)
[2019-01-26] MEDS: Insulin LISPRO 300 UNITS/3 ML VIAL SQ SCH ×3 (05:51→18:01)
--- NOTE | 2019-01-26 06:39 | Pulmonology Progress Note ---
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 From my standpoint I do not feel that she despite aggressive antimyocardial treatment that she will recover from these infections. I will defer to the infectious disease team to make recommendations if antifungal therapy is indicated. Clinically I feel that she is a poor candidate because of the toxic side effects She is trach dependent and requiring ventilator support most of the day. She will tolerate pressure support occasionally she is not been able to have prolonged periods of trach collar. She has experienced significant discomfort from the tracheostomy especially when it is coupled to the ventilator unfortunately this will have to be used in the foreseeable future. I suspect that with her underlying pulmonary conditions complicated by hydrostatic edema that this may be a new normal I have had extensive conversations with the patient's daughter and the patient regarding her prognosis which is very poor believe that this represents a terminal process and hospice is appropriate. At this point the patient and her daughters are not interested in pursuing this fully. Palliative care is following Pulmonary will formally sign off at this time we are available for any questions regarding vent management but essentially as respiratory status tolerates she ca n be trialed on pressure support and then transitioned to trach collar. I am dubious that she will be able to be maintained on tracheostomy collar as she was in the past given her underlying pulmonary infections Please call with any questions (2) Tracheostomy dependent Current Visit: Yes Status: Acute (3) Fungal pneumonia Current Visit: Yes Status: Acute (4) Pseudomonal pneumonia Current Visit: Yes Status: Acute Qualifiers: Lung location: unspecified part of lung Qualified Code(s): J15.1 - Pneumonia due to Pseudomonas (5) Advanced care planning/counseling discussion Current Visit: Yes Status: Acute (6) Current chronic use of systemic steroids Current Visit: Yes Status: Acute (7) ESRD (end stage renal disease) Current Visit: Yes Status: Acute Subjective Principal diagnosis: esrd Interval history: I saw the patient in dialysis. She seemed to be tolerating it well blood pressure was stable she was sleepy but she was able to open her eyes she denied being in any pain Objective PUL Vital signs: Last Vital Signs Temp 99.6 F 01/26/19 03:29 Pulse 89 01/26/19 03:29 Resp 16 01/26/19 04:14 BP 99/63 01/26/19 03:29 Pulse Ox 97 01/26/19 04:14 General appearance: no acute distress, lethargic, other (Frail appearing) Eyes: nonicteric ENT: other (Tracheostomy site noted) Auscultation: bilateral: rales Cardiovascular: regular rate and rhythm Gastrointestinal: soft, non-tender Integumentary: other (Scattered areas of ecchymotic changes with thin skin) Extremities: anasarca Musculoskeletal: no deformities normal mental status, non-focal exam mood appropriate Ventilator Settings Ventilator Settings: Ventilator Settings, Last 8 Hours Ventilator Tidal Volume 450 Setting Ventilator Tidal Volume 450 Setting Ventilator Respiratory Rate 12 Setting Ventilator Respiratory Rate 12 Setting Actual Respiratory Rate 16 Actual Respiratory Rate 21 Positive End Expiratory 8 Pressure Positive End Expiratory 8 Pressure Peak Inspiratory Airway 32 Pressure Peak Inspiratory Airway 28 Pressure Results - Laboratory Findings CBC and BMP: 01/26/19 02:05 01/26/19 02:05 ABG ABG pH 7.44 pH Units (7.32-7.45) 01/20/19 05:48 ABG pCO2 40 mmHg (35-45) 01/20/19 05:48 ABG pO2 102 mmHg (85-104) 01/20/19 05:48 ABG O2 Saturation 98 % (95-98) 01/20/19 05:48 PT/INR, D-dimer PT 14.9 Seconds (9.4-12.1) H 01/18/19 14:06 Abnormal lab findings: Abnormal lab results WBC 23.7 K/mcL (4.3-11.1) H 01/26/19 02:05 RBC 3.75 M/mcL (3.82-4.97) L 01/23/19 04:55 Hgb 10.7 g/dL (11.5-15.4) L 01/24/19 00:47 Hct 34.5 % (35.3-44.9) L 01/22/19 04:34 MCH 27.8 pg (28.0-33.3) L 01/25/19 02:03 MCHC 29.1 g/dL (31.6-35.5) L 01/26/19 02:05 RDW 20.5 % (11.5-14.5) H 01/26/19 02:05 Neutrophils # 11.7 K/mcL (1.6-8.9) H 01/23/19 04:55 Nucleated RBCs/100 WBC 0.3 /100 WBC (0) H 01/23/19 04:55 Hypochromasia Present (Not Present) A 01/23/19 04:55 Anisocytosis 1+ (Not Present) A 01/23/19 04:55 PT 14.9 Seconds (9.4-12.1) H 01/18/19 14:06 ABG Total CO2 28 mEq/L (20-26) H 01/20/19 05:48 VBG HCO3 29 mEq/L (21-27) H 01/18/19 14:17 Sodium 135 mEq/L (136-145) L 01/26/19 02:05 Potassium 2.9 mEq/L (3.5-5.1) L 01/24/19 00:47 Chloride 96 mEq/L (98-107) L 01/26/19 02:05 Carbon Dioxide 30 mEq/L (23-29) H 01/23/19 04:55 BUN 42 mg/dL (8-23) H 01/26/19 02:05 Creatinine 2.74 mg/dL (0.60-1.20) H 01/26/19 02:05 Est GFR ( Amer) 20 (> 60) L 01/26/19 02:05 Est GFR (Non-Af Amer) 17 (> 60) L 01/26/19 02:05 Glucose 135 mg/dL (70-105) H 01/26/19 02:05 POC Glucose 200 mg/dL (70-99) H 01/26/19 05:45 Calculated Osmolality 306 (280-300) H 01/24/19 00:47 Lactic Acid 2.3 mmol/L (0.5-2.2) H 01/18/19 14:06 Calcium 10.8 mg/dL (8.6-10.3) H 01/26/19 02:05 Alkaline Phosphatase 120 Units/L (34-104) H 01/20/19 06:54 Troponin I 0.05 ng/mL (< 0.04) H* 01/19/19 04:14 B-Natriuretic Peptide 263 pg/mL (Less than 100) H 01/18/19 14:06 Serum Total Protein 6.3 g/dL (6.4-8.9) L 01/20/19 06:54 Albumin 2.9 g/dL (3.5-5.7) L 01/20/19 06:54 Albumin/Globulin Ratio 0.9 (1.1-2.2) L 01/20/19 06:54 BAL A. galactomannan Ag POSITIVE (Negative) A 01/22/19 08:04 Hep Bs Antibody < 3.10 mIU/mL (10.00-) L 01/19/19 12:43 - Microbiology Findings Microbiology Findings: Microbiology, Last 48 Hours 01/24/19 00:47 Cryptococcal Antigen - Final Serum 01/22/19 06:08 Respiratory Culture - Final Right Upper Lobe Lung P. aeruginosa MDRO - Clinical Findings Intake & Output: Intake & Output 01/25/19 01/25/19 01/26/19 15:59 23:59 07:59 Intake Total 120 / 360 240 / 360 Output Total 0 / 0 Balance 120 / 360 240 / 360 0 / 0 Consult Discharge Plan - Plan Referrals: Therese Garcia DATA PROCESSING CONTROL CLERK [Primary Care Provider] - (Therese Garcia does home visits so the family will have to call and make a follow up with her when patient is discharged)
--- NOTE | 2019-01-26 08:12 | Internal Med Progress Note ---
Hospitalist Progress Note - Encounter Date of Encounter: 01/26/19 Time of Encounter: 08:12 - Subjective Interval History: Patient seen at HD. Awake, appears same as yesterday. Denies acute complaints/needs, denies N/V, CP, SOB. Daughters present. They state she seemed a bit better last night and again this AM, and remain hopeful despite an uptrending leukocytosis that she could be recovering. They hope she will tolerate HD today. - Exam Vitals: Temp Pulse Resp BP Pulse Ox 98.9 F 91 21 90/52 100 01/26/19 07:41 01/26/19 07:41 01/26/19 07:41 01/26/19 07:41 01/26/19 07:41 Exam: GENERAL APPEARANCE: elderly and chronically ill appearing, will nod and mouth s ome answers HEENT: Normocephalic/atraumatic, EOMI, trach in place CARDIOVASCULAR: Normal S1, S2; regular rate and rhythm; no murmurs. RESPIRATORY: Coarse breath sounds; unable to auscultate wheezing or crackles; trach in place with vent attached ABDOMEN: Soft, nondistended EXTREMITIES: 1+ pitting edema b/l NEUROLOGICAL: awake, oriented to person and place, answers appropriately, able to move all extremities SKIN: Skin with tears/wounds/bruises scattered - Summary of Assessment and Plan Summary of Assessment and Plan: Dorothy Parks is a 78 F w hx ESRD on HD MWF, HFpEF, CAD s/p CO, HTN, DM2, CVA, A- Fib not on AC 2/2 GIB requiring colectomy, COPD s/p chronic trach on 4L and vent qhs, and who was recently discharged from our hospital following bacteremia from HD cath and then subsequently was at [facility] for PNA and bacteremia on meropenem and vanc, who presented at time of admission with SOB, hypoxia, and found to have leukocytosis, CT showing RUL consolidation, concerning for VAP, with inability to wean from vent during day. 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, 4th gen cephalosporins, carbapenems, aminoglycosides - continue colistin per ID - ID and pulm following - BAL 01/22 results pending - Fungal culture pending, and per Pulm is suspicious for likely fungal component given hx aspergillus pulm infection Sepsis: SIRS 3/4, resistant organism as above, noted Acute on chronic hypoxic respiratory failure requiring trach vent: baseline t ziyad vent at night but here requiring around the clock and difficulty weaning - home inhalers, duonebs prn - Pulm signing off, plan for ongoing trials of weaning to trach collar if tolerates but vent prn - ENT consulted, appreciate evaluation, no changes to be made at this time ESRD on HD MWF: Neph consulted, home meds HFpEF: volume per HD as tolerated CAD: home lipitor, has listed allergy to ASA HTN: volume per HD DM2: insulin dependent, w hyperglycemia, controlled currently, use SSI A-Fib: AC on eliquis, rhythm on amio 200, rate controlled on no meds (holding metoprolol 12.5 bid due to hypotension during HD) Anx/dep: home effexor 37.5, buspar 7.5 bid PPx: eliquis FEN: renal, no MIVF Lines: PIV, permacath, trach Consults: Neph, ID, Pulm, Palliative, ENT Code: [id number] Dispo: requires inpatient care, anticipate 2-3 more days, per daughters still pursuing full treatment and thus will need homegoing IV abx Internal Medicine: Result - Labs CBC & Chem 7: 01/26/19 02:05 01/26/19 02:05 Labs: Short CBC 01/26/19 Range/Units 02:05 WBC 23.7 H (4.3-11.1) K/mcL Hgb 11.5 (11.5-15.4) g/dL Hct 39.5 (35.3-44.9) % Plt Count 231 (140-400) K/mcL BMP 01/26/19 02:05 Sodium 135 L Potassium 4.6 Chloride 96 L Carbon Dioxide 24 BUN 42 H Creatinine 2.74 H Glucose 135 H Calcium 10.8 H - ABG Interpretation ABG results: ABG ABG pH 7.44 pH Units (7.32-7.45) 01/20/19 05:48 ABG pCO2 40 mmHg (35-45) 01/20/19 05:48 ABG pO2 102 mmHg (85-104) 01/20/19 05:48 ABG O2 Saturation 98 % (95-98) 01/20/19 05:48 PT/INR, D-dimer PT 14.9 Seconds (9.4-12.1) H 01/18/19 14:06 Consult Discharge Plan - Plan Referrals: Therese Garcia CNP [Primary Care Provider] - (Therese Garcia does home visits so the family will have to call and make a follow up with her when patient is discharged)
[2019-01-26] MEDS: Ascorbic Acid 500 MG TABLET PO SCH (08:47)
[2019-01-26] MEDS: GuaiFENesin Liq 200 MG/10 ML UDC PO SCH ×3 (08:55→20:22)
[2019-01-26] MEDS: *HR* Amiodarone 200 MG TABLET PO SCH (08:55)
[2019-01-26] MEDS: Apixaban 2.5 MG TABLET PO SCH (08:56)
[2019-01-26] MEDS ORDERED: 0.9 % Sodium Chloride 1,000 ML ONE (09:12)
[2019-01-26] MEDS: Budesonide/Formoterol 160/4.5 1 PUFF INH IH SCH ×2 (10:02→22:54)
[2019-01-26] MEDS ORDERED: Albumin 25% 12.5gm/50mL 25.0 GM/100 ML IV.SOLN ONE (10:40)
[2019-01-26] MEDS ORDERED: *HR* Metoprolol 5 MG/5 ML VIAL IVP ONE ×2 (11:30)
--- NOTE | 2019-01-26 14:51 | Nephrology Progress Note ---
Date of Encounter: 01/26/19 - Assessment and Plan (1) ESRD (end stage renal disease) on dialysis Current Visit: No Status: Chronic (2) Anemia Current Visit: No Status: Chronic Qualifiers: Anemia type: unspecified type Qualified Code(s): D64.9 - Anemia, un specified (3) Diabetes mellitus Current Visit: No Status: Chronic Qualifiers: Diabetes mellitus type: type 2 Diabetes mellitus ferry terminal agent insulin use: with retirement use Diabetes mellitus complication status: with kidney complications Diabetes mellitus complication detail: with chronic kidney disease Chronic kidney disease stage: on chronic dialysis Qualified Code(s): E11.22 - Type 2 diabetes mellitus with diabetic chronic kidney disease; N18.6 - End stage renal disease; Z79.4 - terminal carman (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 (4) Hypertension Current Visit: No Status: Chronic Qualifiers: Hypertension type: essential hypertension Qualified Code(s): I10 - Essential (primary) hypertension (5) Acute and chronic respiratory failure Current Visit: Yes Status: Acute Qualifiers: Respiratory failure complication: hypoxia Qualified Code(s): J96.21 - Acute and chronic respiratory failure with hypoxia (6) Sepsis Current Visit: Yes Status: Acute Qualifiers: Sepsis type: sepsis due to unspecified organism Sepsis acute organ dysfunction status: with acute organ dysfunction Severe sepsis acute organ dysfunction type: acute respiratory failure Acute respiratory failure type: with hypoxia Severe sepsis shock status: without septic shock Qualified Code(s): A41.9 - Sepsis, unspecified organism; R65.20 - Severe sepsis without septic shock; J96.01 - Acute respiratory failure with hypoxia Subjective Principal diagnosis: esrd Objective - Vital Signs Vital signs: Vital Signs Temp Pulse Resp BP Pulse Ox 01/26/19 14:00 99.0 F 19 122/56 01/26/19 13:35 109/66 01/26/19 13:30 112/56 01/26/19 13:15 117/65 01/26/19 13:00 105/75 01/26/19 12:45 112/53 01/26/19 12:30 132/72 01/26/19 12:15 148/66 01/26/19 12:00 133/63 01/26/19 11:45 140/61 01/26/19 11:40 117/79 01/26/19 11:30 128/99 01/26/19 11:25 117/79 01/26/19 11:15 110/58 01/26/19 11:00 131/70 01/26/19 10:45 99.1 F 18 128/69 01/26/19 10:02 23 128/69 96 01/26/19 08:19 24 90/52 96 01/26/19 07:41 98.9 F 91 21 90/52 100 01/26/19 04:14 16 97 01/26/19 03:29 99.6 F 89 19 99/63 97 01/25/19 23:50 89 01/25/19 23:29 99 F 93 22 95/53 97 01/25/19 23:18 22 98 01/25/19 21:32 93 01/25/19 19:15 99.4 F 94 25 116/67 98 01/25/19 18:30 97 22 91 01/25/19 16:13 101 18 108/68 100 01/25/19 15:30 19 99/61 97 Intake and Output 01/25/19 01/26/19 01/26/19 23:59 07:59 15:59 Intake Total 240 / 360 600 / 600 Output Total 0 / 923 923 / 923 Balance 240 / 360 0 / -323 -323 / -323 Intake: Oral 240 / 360 0 / 0 Intake, Rinseback and Flushes 600 / 600 Output: Urine 0 / 0 0 / 0 Total Dialysis (HD) Output 923 / 923 Other: Meal Dinner Percent of Meal Consumed 5% Blood Glucose* 96 200 Hemodialysis Net Fluid Removed 323 (mL) - Lab 01/26/19 02:05 01/26/19 02:05 Most recent lab results 01/26/19 02:05 Calcium 10.8 H Consult Discharge Plan - Plan Referrals: Therese Garcia GAME PROGRAMMER [Primary Care Provider] - (Therese Garcia does home visits so the family will have to call and make a follow up with her when patient is discharged)
--- NOTE | 2019-01-26 14:57 | ENT - Progress Note ---
Date of Encounter: 01/26/19 Time of Encounter: 15:00 Subjective Patient reports: no new complaints (Follow-up for tracheostomy tube evaluation patient seems to be stable without any new issues the tethering effect from the inflated balloon obviously makes swallowing difficult patient has no new c omplaints family seems to be content with current status and less there is an issue I will not be following up with this patient again) Objective Initial Vital Signs Temp Pulse Resp BP Pulse Ox 98.7 F 94 20 119/68 88 01/18/19 13:56 01/18/19 13:56 01/18/19 13:56 01/18/19 13:56 01/18/19 13:56 - General physical appearance well developed, well nourished - Eyes PERRL - ENT normal pinna, normal nares, Other (Persistent tracheostomy tube with no issues currently no leakage ventilating well on ventilator) - Neck no masses, no bruits, trachea midline, no lymphadectomy, other (Neck is flexed) - Labs 01/26/19 02:05 01/26/19 02:05 Diabetes panel 01/26/19 Range/Units 02:05 Sodium 135 L (136-145) mEq/L Potassium 4.6 (3.5-5.1) mEq/L Chloride 96 L (98-107) mEq/L Carbon Dioxide 24 (23-29) mEq/L BUN 42 H (8-23) mg/dL Creatinine 2.74 H (0.60-1.20) mg/dL Glucose 135 H (70-105) mg/dL Calcium 10.8 H (8.6-10.3) mg/dL Calcium panel 01/26/19 Range/Units 02:05 Calcium 10.8 H (8.6-10.3) mg/dL Pituitary panel 01/26/19 Range/Units 02:05 Sodium 135 L (136-145) mEq/L Potassium 4.6 (3.5-5.1) mEq/L Chloride 96 L (98-107) mEq/L Carbon Dioxide 24 (23-29) mEq/L BUN 42 H (8-23) mg/dL Creatinine 2.74 H (0.60-1.20) mg/dL Glucose 135 H (70-105) mg/dL Calcium 10.8 H (8.6-10.3) mg/dL Adrenal panel 01/26/19 Range/Units 02:05 Sodium 135 L (136-145) mEq/L Potassium 4.6 (3.5-5.1) mEq/L Chloride 96 L (98-107) mEq/L Carbon Dioxide 24 (23-29) mEq/L BUN 42 H (8-23) mg/dL Creatinine 2.74 H (0.60-1.20) mg/dL Glucose 135 H (70-105) mg/dL Calcium 10.8 H (8.6-10.3) mg/dL Consult Discharge Plan - Plan Referrals: Therese Garcia, SHELLFISH CHECKER [Primary Care Provider] - (Therese Garcia does home visits so the family will have to call and make a follow up with her when patient is discharged)
[2019-01-26] MEDS: Renal Vitamin 1 CAP CAPSULE PO SCH (15:15)
[2019-01-26] MEDS: SODIUM CHLORIDE 0.9% IVPB SCH (15:16)
[2019-01-26] MEDS: COLISTIN IVPB SCH (15:16)
[2019-01-26] MEDS: *HR* Acetaminophen w/Cod 300-30 mg 1 TAB TABLET PO PRN (15:16)
[2019-01-26] MEDS: Insulin DETEMIR 100 UNIT/ML X5UNITS SQ SCH (20:41)
[2019-01-26] MEDS ORDERED: Acetaminophen IV 1,000 MG/100 ML INFUS..BTL IVPB ONE (23:31)
[2019-01-27] MEDS: Insulin LISPRO 300 UNITS/3 ML VIAL SQ SCH ×2 (00:14→06:02)
[2019-01-27] MEDS: Hydrocortisone Sodium Succ 100 MG/2 ML VIAL IVP SCH ×2 (00:18→06:01)
[2019-01-27] MEDS: 0.9 % Sodium Chloride 250 ML IVC PRN ×2 (00:39→06:02)
[2019-01-27] MEDS ORDERED: Acetaminophen IV 1,000 MG/100 ML INFUS..BTL IVPB PRN (01:52)
[2019-01-27 02:16] LABS: Hematocrit 42.1 % (35.3-44.9); Hemoglobin 11.6 g/dL (11.5-15.4); Mean Corpuscular HGB Conc 27.6 g/dL (31.6-35.5); Mean Corpuscular Hemoglobin 27.8 pg (28.0-33.3); Mean Platelet Volume 11.4 fL (9.4-12.4); Platelet Count 283 K/mcL (140-400); Red Blood Count 4.17 M/mcL (3.82-4.97); Red Cell Distribution Width 20.6 % (11.5-14.5); White Blood Count 25.8 K/mcL (4.3-11.1)
[2019-01-27 02:33] LABS: Calcium 10.3 mg/dL (8.6-10.3); Potassium 4.4 mEq/L (3.5-5.1)
[2019-01-27] MEDS: Levalbuterol Neb 1.25 MG/3 ML IH SCH (04:16)
[2019-01-27] MEDS ORDERED: *HR* Atropine Sulfate 1 MG/10 ML SYRINGE ONE ×2 (06:00→06:06)
[2019-01-27] MEDS ORDERED: *HR* Atropine Sulfate 1 MG/10 ML SYRINGE IVP STA (06:06)
[2019-01-27 06:18] VITALS: BP 45/35
--- NOTE | 2019-01-27 07:58 | Death Note ---
Discharge Sum: Summary - Date and Time Date of admission: 01/18/19 17:35 Date of : 01/27/19 Time of : 06:55 - Summary Details: Dear Doctors, I had the privilege of caring for this patient during their hospital stay at [facility]. As you may know, Dorothy Parks was a 78 F w hx ESRD on HD, HFpEF, CAD s/p NV, HTN, DM2, CVA, A-Fib not on AC 2/2 GIB requiring colectomy, COPD s/p chronic trach on 4L and vent qhs, and who was recently discharged from our hospital following bacteremia from HD cath and then subsequently was at [facility] for PsA PNA and bacteremia on meropenem and vanc, who presented at time of this admission with SOB and hypoxia. She was found to have leukocytosis, with CT showing RUL consolidation and cavitary lesion, concerning for VAP, with inability to wean from vent during day. In the hospital, patient had tenuous course, with pressures unable to support runs of HD. Sputum culture grew XDR PsA. Neph, Pulm, ID, ENT, and Palliative all consulted. Patient placed on colistin. Unfortunately, patient's condition continued to deteriorate. Extensive discussions with patient's family to continue medical management but to avoid ICU/invasive options. See separate Deat h Note for specific details. Resuscitative efforts were unsuccessful, and patient on 01/27 at 6:55a with family present. It was my pleasure participating in this patient's care. Please contact me with any questions or concerns regarding their hospital stay. Sincerely, Addy Rocha MD - Additional Data Confirmation of as documented by pronouncing clinician: no pulse, no respirations, no heart sounds Family: at bedside Attending physician: Addy Rocha Was code activated?: No Autopsy requested?: No Advance directives: Yes Hospice patient?: No Discharge Sum: Diag - PCOD Probable Cause of : Hypoxia (acute on chronic hypoxic respiratory failure due to extensively drug resistant pseudomonas pneumonia and lung abscess) Discharge Sum: Prov - Provider Primary care physician: Therese Garcia CNP Admitting clinician: Alaina Ornelas Consults: 01/18/19 17:58 Consult to Pulmonology [CONS] Routine 01/18/19 18:03 Consult to Nephrology [CONS] Routine 01/21/19 08:13 Consult to Palliative Care [CONS] Routine 01/21/19 11:30 Consult to Infectious Diseases [CONS] Routine 01/25/19 04:32 Consult to ENT [CONS] Routine Pronouncing clinician: Vamsi Portillo
--- NOTE | 2019-01-27 07:59 | Death Note ---
Pronouncement Note - Date and Time of Date of : 01/27/19 Time of : 06:55 - PCOD Preliminary cause of : Respiratory arrest - Summary Additional details: Tended to the patient throughout the night regarding various issues including decreased responsiveness, hypotension, hypoxia and lactic acidosis. Stat imaging ordered including head, chest and abdomen CTs. Patient's condition deteriorated, patient's daughters at bed side. Extensive discussions took place with them regarding the patient's condition and paths going forward. They were very clear that they did not want invasive interventions to be undertaken including central lines, arterial lines, and aggressive fluid resuscitation. We did attempt atropine 0.5mg twice when the patient's heart rate declined into the 30's. She was also given a total of 500cc of IV fluids to help with hypotension. She did initially respond to this however, but heart rate then declined again. Eventually the decision was made by the patient's daughters that as she is on ventilator and at that point was providing all breathing effort for the patient that they would prefer to have the machine removed, and allow the patient to pass away. Respiratory therapy was notified, and the vent was disconnected. Patient was in no acute distress at any point, and did not have any response to stimuli. No appreciable breath sounds were heard, and no heart rate was heard either. After several moments the the monitor indicated no heart beat or oxygenation. No pupillary reflex appreciated. Time of 6:55am, 01/27/19. - Additional Data Confirmation of : no pulse, no respirations, no heart sounds, pupils fixed and dilated Family: at bedside Attending/PCP notified?: Yes Attending physician: Addy Rocha Was code activated?: No
[2019-01-27] MEDS ORDERED: Aminoglycoside Consult 1 EACH MC ONE (10:51)
== END 2019-01-27 10:52 | disposition expired | DRG 870 ==
LOC: EMEROOARM 13:54 → 2NNU 13:54 → SUATTDRO 17:35 → 2NNU 17:50
PROVIDERS: ADMIT Family Medicine; ATTEND Internal Medicine